=== PATIENT | male | born 1935 | race Caucasian/White ===

== ENCOUNTER 2022-03-26 21:18 | Emergency (ER) | payer MEDICARE, BC, SELFPAY ==
[2022-03-26 21:40] VITALS: BP 174/68; PULSE 84; RESP 18; TEMP 36.7; O2SAT 96; BMI 30.7
--- NOTE | 2022-03-26 22:01 | CRLHL7_ITS ---
For Patients: As a result of the Century Cures Act, medical imaging exams and procedure reports are released immediately into your electronic medical record. You may view this report before your referring provider. If you have questions, please contact your health care provider. INDICATION: Right upper extremity pain and swelling. TECHNIQUE: Ultrasound venous duplex upper right extremity. Compression venous exam was performed using jeong-scale, color Doppler, and spectral Doppler imaging. COMPARISON: None. FINDINGS: Deep veins: The visualized right internal jugular, subclavian, brachial, and axillary veins are fully compressible, demonstrate normal color flow, and normal response to mechanical augmentation. The Duplex Doppler waveforms are normal in appearance. Superficial veins: Cephalic vein demonstrates noncompressibility and lack of color Doppler flow consistent with thrombus. This extends from the wrist to the upper right arm. Soft tissue: Unremarkable. IMPRESSION: Superficial thrombus within the cephalic vein. No deep venous thrombosis identified. Findings discussed with Dr. Newsome at 11:21 pm on 03/26/[address] Lim Dictated by Dong Lim MD @ 03/26/2022 11:24:47 PM (Electronically Signed)
[2022-03-26 22:10] VITALS: BP 127/56; PULSE 80; O2SAT 95
--- OUTSIDE RECORDS SUMMARY | 2022-03-26 22:17 | XMS_ITS | Clinical Summary ---
:1935 Author Organization [employer] Address [address] [address] Phone Care Team Providers Name Role Phone Unavailable Primary Care Provider Unavailable Allergies Active Allergy Reactions Severity Noted Date Comments Amlodipine Other, Unknown Low 08/06/2020 Leg swelling on 5mg Leg swelling on 5mg Metformin Diarrhea Low 07/03/2020 Medications Medication Sig Dispensed Refills Start Date End Date Status empagliflozin Take 25 mg by 0 Ac tive (Jardiance) 25 MG mouth one time Tablet a day. Do not chew or crush. spironolactone Take 25 mg by 0 A ctive (Aldactone) 25 MG mouth one time tablet a day. carvedilol (Coreg) 25 Take 25 mg by 0 Active MG tablet mouth two times a day with meals. valsartan (Diovan) 320 Take 320 mg by 0 Active MG tablet mouth one time a day. omeprazole (PriLOSEC) Take 20 mg by 0 Active 20 MG delayed-release mouth one time capsule a day. Take before meals. Do not crush. atorvaSTATin (Lipitor) Take 20 mg by 0 Active 20 MG tablet mouth one time a day. aspirin 81 MG chewable Chew and 30 Tablet 0 03/26/20222021 Active tablet swallow 1 Tablet one time a day for 30 days. Take with food. Active Problems Problem Noted Date BRBPR (bright red blood per rectum) 03/23/2022 Hemorrhagic shock 03/23/2022 Encounters Date Type Specialty Care Team Description 03/23/2022 Anesthesia Event Endoscopy Evelin Amezquita MD 03/23/2022 Surgery Endoscopy Desi, COLONOSCOPY Kamlesh Laird DO DIAGNOSTIC 03/22/2022 Surgery Radiology Yair Jones MD Mesenteric angiogram 03/22/2022 - Hospital Encounter Intensive Care Yoko Johnson, Isidro morrhagic shock (HCC) (Primary Dx); 03/25/2022 MD SMITH (bright red blood per rectum); Glynn Jones MD Hospital discharge follow-up Agustin Palacio MD 03/22/2022 Hospital Encounter Radiology Radiology, [facility] 03/22/2022 Travel from Last 3 Months Surgical History Surgery Date Site/Laterality Comments OTHER SURGICAL HISTORY 03/22/2022 Groin/Right Procedure : Mesenteric angiogram; Surgeon: Yair Jones MD; Location: [facility] INTERVENTIONAL RADIOLOGY COLONOSCOPY 03/23/2022 Colon/N/A Procedure: COLON OSCOPY DIAGNOSTIC; Surgeon: Kamlesh Newberry DO; Location: [facility] ENDOSCOPY Medical devices from this surgery are in the Medic al Devices section. Social History Tobacco Use Types Packs/Day Years Used Date Smoking Tobacco: Former Cigarettes 0.5 30 1952 - 1982 Smokeless Tobacco: Never Tobacco Cessation: Counseling Given: No Sex Assigned at Date Recorded Male 03/22/2022 3:33 PM CDT Job Start Date Occupation Industry Not on file Not on file Not on file COVID-19 Exposure Response Date Recorded In the last 10 days, have you been in contact with No / Unsu re 03/22/2022 3:33 PM CDT someone who was confirmed or suspected to have Coronavirus/COVID-19? Obstetrics History Last Filed Vital Signs Vital Sign Reading Time Taken Comments Blood Pressure 162/49 03/25/2022 4:27 PM AERONAUTICAL RESEARCH ENGINEER Pulse 74 03/25/2022 4:27 PM AERONAUTICAL RESEARCH ENGINEER Temperature 36.6 ??C (97.8 ??F) 03/25/2022 4:27 PM AERONAUTICAL RESEARCH ENGINEER Respiratory Rate 20 03/25/2022 4:27 PM AERONAUTICAL RESEARCH ENGINEER Oxygen Saturation 95% 03/25/2022 4:27 PM AERONAUTICAL RESEARCH ENGINEER Inhaled Oxygen Concentration - - Weight 91.5 kg (201 lb 11.5 oz) 03/25/2022 6:00 AM AERONAUTICAL RESEARCH ENGINEER Height 174 cm (5' 8.5) 03/22/2022 2:30 PM CDT Body Mass Index 30.23 03/22/2022 2:30 PM CDT Plan of Treatment Health Maintenance Due Date Last Done Comments MEDICARE AWV 1935 COVID-19 Vaccine (#1) [birth year]/16/1936 PERTUSSIS (Standing Order) 11/14/1954 TETANUS (Standing Order) 11/14/1954 Shingrix (Zoster recombinant) vaccine (Standing Order) 6 (1 of 2) Pneumococcal Vaccine: 65+ yrs (Standing Order) (1 - 11/14/2000 PCV) Influenza Vaccine Seasonal (Standing Order) (#1) 2022 Medical Devices Implanted Type Area Manager Steel Device Shelf Model / Identifier Expiration Date Ser ial / Lot Clip Hemostasis Instinct Plus Disp [id number] - [id number] N/A : Colon COOK 01/16/2025 [id number] / Implanted: Qty: 2 on 03/23/2022 by Kamlesh Prieto DO at [facility] N/A / [id number] Procedures Procedure Name Priority Date/Time Associated Comments Diagnosis GLUCOSE, METER Routine 03/25/2022 12:30 Results f or this PM AERONAUTICAL RESEARCH ENGINEER procedure are i n the results section. GLUCOSE, METER Routine 03/25/2022 7:47 AM Results for this A[employer]ONAUTICAL RESEARCH ENGINEER procedure are i n the results section. HEMOGLOBIN Timed 03/25/2022 4:04 AM Results f or this AERONAUTICAL RESEARCH ENGINEER procedure are i n the results section. PLATELET COUNT Routine 03/25/2022 4:04 AM Results for this AERONAUTICAL RESEARCH ENGINEER procedure are i n the results section. WHITE BLOOD COUNT Routine 03/25/2022 4:04 AM Resu lts for this AERONAUTICAL RESEARCH ENGINEER procedure are i n the results section. PHOSPHORUS Routine 03/25/2022 4:04 AM Results f or this AERONAUTICAL RESEARCH ENGINEER procedure are i n the results section. MAGNESIUM Routine 03/25/2022 4:04 AM Results f or this AERONAUTICAL RESEARCH ENGINEER procedure are i n the results section. BASIC METABOLIC PANEL Routine 03/25/2022 4:04 AM Results for this AERONAUTICAL RESEARCH ENGINEER procedure are i n the results section. EKG 12-LEAD Routine 03/25/2022 12:49 Results for this AM AERONAUTICAL RESEARCH ENGINEER procedure are i n the results section. GLUCOSE, METER Routine 03/24/2022 10:07 Results f or this PM AERONAUTICAL RESEARCH ENGINEER procedure are i n the results section. HEMOGLOBIN Timed 03/24/2022 8:02 PM Results f or this AERONAUTICAL RESEARCH ENGINEER procedure are i n the results section. GLUCOSE, METER Routine 03/24/2022 5:08 PM Results for this AERONAUTICAL RESEARCH ENGINEER procedure are i n the results section. HEMOGLOBIN Timed 03/24/2022 12:08 Results for this PM AERONAUTICAL RESEARCH ENGINEER procedure are i n the results section. GLUCOSE, METER Routine 03/24/2022 11:47 Results f or this AM AERONAUTICAL RESEARCH ENGINEER procedure are i n the results section. HEMOGLOBIN Timed 03/24/2022 5:48 AM Results f or this AERONAUTICAL RESEARCH ENGINEER procedure are i n the results section. PLATELET COUNT Routine 03/24/2022 5:48 AM Results for this AERONAUTICAL RESEARCH ENGINEER procedure are i n the results section. WHITE BLOOD COUNT Routine 03/24/2022 5:48 AM Resu lts for this AERONAUTICAL RESEARCH ENGINEER procedure are i n the results section. PHOSPHORUS Routine 03/24/2022 3:01 AM Results f or this AERONAUTICAL RESEARCH ENGINEER procedure are i n the results section. MAGNESIUM Routine 03/24/2022 3:01 AM Results f or this AERONAUTICAL RESEARCH ENGINEER procedure are i n the results section. BASIC METABOLIC PANEL Routine 03/24/2022 3:01 AM Results for this AERONAUTICAL RESEARCH ENGINEER procedure are i n the results section. GLUCOSE, METER Routine 03/23/2022 11:38 Results f or this PM AERONAUTICAL RESEARCH ENGINEER procedure are i n the results section. HEMOGLOBIN Timed 03/23/2022 11:38 Results for this PM AERONAUTICAL RESEARCH ENGINEER procedure are i n the results section. COLONOSCOPY DIAGNOSTIC 03/23/2022 6:09 PM Hemorrhagic shock AERONAUTICAL RESEARCH ENGINEER (HCC) BRBPR (bright red blood per rectum) GLUCOSE, METER Routine 03/23/2022 5:45 PM Results for this AERONAUTICAL RESEARCH ENGINEER procedure are i n the results section. HEMOGLOBIN Timed 03/23/2022 5:45 PM Results f or this AERONAUTICAL RESEARCH ENGINEER procedure are i n the results section. COLONOSCOPY PROCEDURE 03/23/2022 5:44 PM Hemorrhagic s hock Results for this AERONAUTICAL RESEARCH ENGINEER (HCC) procedure are i n the results section. ADMIT MRSA, MOLECULAR Routine 03/23/2022 1:48 PM Results for this DETECTION AERONAUTICAL RESEARCH ENGINEER procedure are i n the results section. ECHO ADULT COMPLETE W Routine 03/23/2022 12:26 Re sults for this CONTRAST PM AERONAUTICAL RESEARCH ENGINEER procedure are i n the results section. RAPID SARS-COV-2 RNA Routine 03/23/2022 12:11 Res ults for this (COVID-19), MOLECULAR PM AERONAUTICAL RESEARCH ENGINEER proced ure are in DETECTION the results section. HEMOGLOBIN Timed 03/23/2022 12:11 Results for this PM AERONAUTICAL RESEARCH ENGINEER procedure are i n the results section. PROTIME Routine 03/23/2022 12:11 Results for this PM AERONAUTICAL RESEARCH ENGINEER procedure are i n the results section. GLUCOSE, METER Routine 03/23/2022 12:10 Results f or this PM AERONAUTICAL RESEARCH ENGINEER procedure are i n the results section. TRANSFUSE RED BLOOD Routine 03/23/2022 8:20 AM CELLS AERONAUTICAL RESEARCH ENGINEER HEMOGLOBIN Timed 03/23/2022 7:53 AM Results f or this AERONAUTICAL RESEARCH ENGINEER procedure are i n the results section. URINALYSIS, REFLEX TO Routine 03/23/2022 6:07 AM Results for this MICROSCOPIC AERONAUTICAL RESEARCH ENGINEER procedure are i n the results section. CULTURE, BLOOD Routine 03/23/2022 5:58 AM BACTERIAL AERONAUTICAL RESEARCH ENGINEER CULTURE, BLOOD Routine 03/23/2022 5:50 AM BACTERIAL AERONAUTICAL RESEARCH ENGINEER GLUCOSE, METER Routine 03/23/2022 5:44 AM Results for this AERONAUTICAL RESEARCH ENGINEER procedure are i n the results section. PROCALCITONIN, BLOOD Add on 03/23/2022 4:57 AM R esults for this AERONAUTICAL RESEARCH ENGINEER procedure are i n the results section. HEMOGLOBIN Timed 03/23/2022 4:57 AM Results f or this AERONAUTICAL RESEARCH ENGINEER procedure are i n the results section. PLATELET COUNT Routine 03/23/2022 4:57 AM Results for this AERONAUTICAL RESEARCH ENGINEER procedure are i n the results section. WHITE BLOOD COUNT Routine 03/23/2022 4:57 AM Resu lts for this AERONAUTICAL RESEARCH ENGINEER procedure are i n the results section. PHOSPHORUS Routine 03/23/2022 4:57 AM Results f or this AERONAUTICAL RESEARCH ENGINEER procedure are i n the results section. MAGNESIUM Routine 03/23/2022 4:57 AM Results f or this AERONAUTICAL RESEARCH ENGINEER procedure are i n the results section. BASIC METABOLIC PANEL Routine 03/23/2022 4:57 AM Results for this AERONAUTICAL RESEARCH ENGINEER procedure are i n the results section. GLUCOSE, METER Routine 03/22/2022 11:39 Results f or this PM CDT procedure are i n the results section. LACTIC ACID, VENOUS STAT 03/22/2022 11:29 Resu lts for this PM CDT procedure are i n the results section. HEMOGLOBIN Timed 03/22/2022 11:29 Results for this PM CDT procedure are i n the results section. ABORH 2ND DRAW STAT 03/22/2022 5:09 PM Results for this CDT procedure are i n the results section. HEMOGLOBIN Timed 03/22/2022 5:09 PM Results f or this CDT procedure are i n the results section. IR ANGIOGRAM SELECTIVE Routine 03/22/2022 4:26 PM Results for this EACH ADDL VESSEL CDT procedure a re in the results section. IR VISCERAL ANGIOGRAM Routine 03/22/2022 4:26 PM Results for this CDT procedure are i n the results section. US GUIDE VASCULAR Routine 03/22/2022 4:18 PM Resu lts for this ACCESS WITH CDT procedure are i n RADIOLOGIST the results section. IX UNLISTED 03/22/2022 3:13 PM GI bleed CDT RED BLOOD CELLS Timed 03/22/2022 2:28 PM Hemorrhagic shock R esults for this CDT (HCC) procedure are i n the results section. TYPE AND SCREEN STAT 03/22/2022 2:28 PM Result s for this CDT procedure are i n the results section. PROTIME Routine 03/22/2022 2:28 PM Results f or this CDT procedure are i n the results section. TROPONIN I Routine 03/22/2022 2:28 PM Results f or this CDT procedure are i n the results section. LACTIC ACID, VENOUS Routine 03/22/2022 2:28 PM Re sults for this CDT procedure are i n the results section. PHOSPHORUS Routine 03/22/2022 2:28 PM Results f or this CDT procedure are i n the results section. MAGNESIUM Routine 03/22/2022 2:28 PM Results f or this CDT procedure are i n the results section. COMPREHENSIVE Routine 03/22/2022 2:28 PM Results for this METABOLIC PANEL CDT procedure ar e in the results section. HEMOGRAM STAT 03/22/2022 2:28 PM Results f or this CDT procedure are i n the results section. GLUCOSE, METER Routine 03/22/2022 2:25 PM Results for this CDT procedure are i n the results section. OS CT ABDOMEN PELVIS Routine 03/22/2022 1:09 PM R esults for this CDT procedure are i n the results section. from Last 3 Months Results (ABNORMAL) GLUCOSE, METER (03/25/2022 12:30 PM AERONAUTICAL RESEARCH ENGINEER) P athologist Signature Glucose Meter 179 (H) 70 - 99 03/25/2022 [facility] mg/dL 12:37 PM AERONAUTICAL RESEARCH ENGINEER [facility] POINT OF CARE Specimen Anatomical Collection Method Collection Time Receive d Time (Source) Location / / Volume Laterality Blood BLOOD SPECIMEN / 03/25/2022 12:30 022 Unknown PM AERONAUTICAL RESEARCH ENGINEER 12:37 PM AERONAUTICAL RESEARCH ENGINEER Agustin Palacio MD EC CHEMISTRY ORDERABLES Performing Organization Address City/[facility]/ZIP [facility] Phon e Number [facility] POINT OF CARE [address] [place], [place] [phone] (ABNORMAL) GLUCOSE, METER (03/25/2022 7:47 AM AERONAUTICAL RESEARCH ENGINEER) P athologist Signature Glucose Meter 223 (H) 70 - 99 03/25/2022 [facility] mg/dL 7:54 AM [facility] POINT OF CARE Specimen Anatomical Collection Method Collection Time Receive d Time (Source) Location / / Volume Laterality Blood BLOOD SPECIMEN / 03/25/2022 7:47 AM 03/25 7:54 Unknown AERONAUTICAL RESEARCH ENGINEER AM AERONAUTICAL RESEARCH ENGINEER Agustin Palacio MD EC CHEMISTRY ORDERABLES Performing Organization Address [facility] Phon e Number [facility] POINT OF CARE [address] [place] [phone] (ABNORMAL) BASIC METABOLIC PANEL (03/25/2022 4:04 AM AERONAUTICAL RESEARCH ENGINEER) Analysis Performed At Patho logist Time Signature Sodium 140 134 - 143 03/25/2022 [facility] mEq/L 4:46 AM [facility] Potassium 3.7 3.4 - 5.1 03/25/2022 [facility] mEq/L 4:46 AM [facility] Chloride 112 (H) 99 - 110 03/25/2022 [facility] mEq/L 4:46 AM [facility] Carbon Dioxide 22 19 - 29 03/25/2022 [facility] mEq/L 4:46 AM [facility] Anion Gap 6.0 3.0 - 15.0 03/25/2022 [facility] mEq/L 4:46 AM [facility] Blood Urea 18 5 - 24 03/25/2022 [facility] Nitrogen mg/dL 4:46 AM [facility] Creatinine 0.92 0.70 - 03/25/2022 [facility] 1.20 mg/dL 4:46 AM [facility] Glomerular 81 >60 03/25/2022 [facility] Filtration Rate mL/min/1.7 4:46 AM [facility] 3 m*2 LABORATORY Comment: Risk of cardiovascular disease increases when GFR is abnormal; persistently reduced GFR values are a specific indica tion of CKD. This calculation uses CKD-EPI 2020 equation without adjustment for rac e; it has not been validated in women. Calcium 8.1 (L) 8.4 - 10.5 mg/dL 03/25/2022 4:46 AM AERONAUTICAL RESEARCH ENGINEER [facility] Glucose 164 (H) 70 - 99 mg/dL 03/25/2022 4:46 AM AERONAUTICAL RESEARCH ENGINEER [facility] Specimen Anatomical Collection Method / Collection Time Recei eloina Time (Source) Location / Volume Laterality Blood BLOOD SPECIMEN / Venipuncture / 03/25/2022 4:04 2021 4:24 Unknown Unknown AM AERONAUTICAL RESEARCH ENGINEER AM AERONAUTICAL RESEARCH ENGINEER Narrative [facility] - 4:46 AM AERONAUTICAL RESEARCH ENGINEER Current ADA criteria for Glucose: ?Normal: 70-99 mg/dL ?Impaired Fasting Glucose: 100-125 mg/dL ?Diabetes Mellitus: at or above 126 mg/dL The diagnosis of diabetes must be confir med on a subsequent day by measuring Fasting Plasma Glucose, 2-hr PG or random plasma glucose (if symptoms are present). Yoko Johnson MD EC CHEMISTRY ORDERABLES Performing Organization Address City/[facility]/ZIP [facility] Phon e Number [facility] [address] [place] [phone] (ABNORMAL) HEMOGLOBIN (03/25/2022 4:04 AM AERONAUTICAL RESEARCH ENGINEER) P athologist Signature HGB 7.7 (L) 12.9 - 16.9 03/25/2022 [facility] g/dL 4:28 AM [facility] Specimen Anatomical Collection Method / Collection Time Recei eloina Time (Source) Location / Volume Laterality Blood BLOOD SPECIMEN / Venipuncture / 03/25/2022 4:04 2021 4:23 Unknown Unknown AM AERONAUTICAL RESEARCH ENGINEER AM AERONAUTICAL RESEARCH ENGINEER Mere Ewing APRN, DIGITAL PHOTOGRAPHIC PRINTER EC HEMATOLOGY ORDERABLES Performing Organization Address City/[facility]/ZIP [facility] Phon e Number [facility] [address] [place] [phone] (ABNORMAL) WHITE BLOOD COUNT (03/25/2022 4:04 AM AERONAUTICAL RESEARCH ENGINEER) P athologist Signature WBC 45.0 (H) 3.2 - 11.0 03/25/2022 [facility] 10*9/L 4:31 AM AERONAUTICAL RESEARCH ENGINEER [facility] Specimen Anatomical Collection Method / Collection Time Recei eloina Time (Source) Location / Volume Laterality Blood BLOOD SPECIMEN / Venipuncture / 03/25/2022 4:04 2021 4:23 Unknown Unknown AM AERONAUTICAL RESEARCH ENGINEER AM AERONAUTICAL RESEARCH ENGINEER Yoko Johnson MD EC HEMATOLOGY ORDERABLES Performing Organization Address City/[facility] Phon e Number [facility] [address] [place] [phone] MAGNESIUM (03/25/2022 4:04 AM AERONAUTICAL RESEARCH ENGINEER) P athologist Signature Magnesium 1.9 1.8 - 2.7 03/25/2022 [facility] mg/dL 4:46 AM AERONAUTICAL RESEARCH ENGINEER [facility] Specimen Anatomical Collection Method / Collection Time Recei eloina Time (Source) Location / Volume Laterality Blood BLOOD SPECIMEN / Venipuncture / 03/25/2022 4:04 2021 4:24 Unknown Unknown AM AERONAUTICAL RESEARCH ENGINEER AM AERONAUTICAL RESEARCH ENGINEER Yoko Johnson MD EC CHEMISTRY ORDERABLES Performing Organization Address City/[facility] Phon e Number [facility] [address] [place] [phone] PHOSPHORUS (03/25/2022 4:04 AM AERONAUTICAL RESEARCH ENGINEER) P athologist Signature Phosphorus 2.5 2.5 - 4.6 03/25/2022 [facility] mg/dL 4:46 AM AERONAUTICAL RESEARCH ENGINEER [facility] Specimen Anatomical Collection Method / Collection Time Recei eloina Time (Source) Location / Volume Laterality Blood BLOOD SPECIMEN / Venipuncture / 03/25/2022 4:04 2021 4:24 Unknown Unknown AM AERONAUTICAL RESEARCH ENGINEER AM AERONAUTICAL RESEARCH ENGINEER Yoko Johnson MD EC CHEMISTRY ORDERABLES Performing Organization Address City/[facility] Phon e Number [facility] [address] [place] [phone] PLATELET COUNT (03/25/2022 4:04 AM AERONAUTICAL RESEARCH ENGINEER) P athologist Signature PLT 130 130 - 375 [facility] 10[facility]/L 4:31 AM AERONAUTICAL RESEARCH ENGINEER [facility] Specimen Anatomical Collection Method / Collection Time Recei eloina Time (Source) Location / Volume Laterality Blood BLOOD SPECIMEN / Venipuncture / 03/25/2022 4:04 2021 4:23 Unknown Unknown AM AERONAUTICAL RESEARCH ENGINEER AM AERONAUTICAL RESEARCH ENGINEER Yoko Johnson MD EC HEMATOLOGY ORDERABLES Performing Organization Address City/[facility]/ZIP [facility] Phon e Number [facility] [address] [place] [address] EKG 12-LEAD (03/25/2022 12:49 AM AERONAUTICAL RESEARCH ENGINEER) P athologist Signature Ventricular Rate 110 BPM MUSE Atrial Rate 110 BPM MUSE P-R Interval 168 ms MUSE QRS Duration 162 ms MUSE QT 404 ms MUSE QTc 546 ms MUSE R [place] -65 degrees MUSE T [place] 11 degrees MUSE Specimen (Source) Anatomical Collection Method Collection Time Re ceived Time Location / / Volume Laterality 03/25/2022 12:49 AM AERONAUTICAL RESEARCH ENGINEER Narrative MUSE - 03/25/2022 8:03 AM AERONAUTICAL RESEARCH ENGINEER Confirming Doc Aileen Forbes MD Wide QRS tachycardia Possible Atrial flu tter Right bundle branch block Left anterior fascicular block Bifascicular block Abnormal ECG No previous ECGs available Procedure Note Aileen Forbes MD - 03/25/2022F ormatting of this note might be different from the original. Confirming Doc Aileen Forbes MD Wide QRS tachycardia Possible Atrial flu tter Right bundle branch block Left anterior fascicular block Bifascicular block Abnormal ECG No previous ECGs available Santos Blanc MD IP ECG ORDERABLES Performing Organization Address City/[facility]/ZIP [facility] Phon e Number MUSE (ABNORMAL) GLUCOSE, METER (03/24/2022 10:07 PM AERONAUTICAL RESEARCH ENGINEER) P athologist Signature Glucose Meter 168 (H) 70 - 99 03/24/2022 [facility] mg/dL 10:15 PM AERONAUTICAL RESEARCH ENGINEER [facility]OSPITAL POINT OF CARE Specimen Anatomical Collection Method Collection Time Receive d Time (Source) Location / / Volume Laterality Blood BLOOD SPECIMEN / 03/24/2022 10:07 022 Unknown PM AERONAUTICAL RESEARCH ENGINEER 10:15 PM AERONAUTICAL RESEARCH ENGINEER Agustin Palacio MD EC CHEMISTRY ORDERABLES Performing Organization Address City/[facility]/ZIP [facility] Phon e Number [facility] POINT OF CARE [address] [place], [place] [phone] (ABNORMAL) HEMOGLOBIN (03/24/2022 8:02 PM AERONAUTICAL RESEARCH ENGINEER) athologist Signature HGB 7.9 (L) 12.9 - 16.9 03/24/2022 [facility] g/dL 8:08 PM AERONAUTICAL RESEARCH ENGINEER [facility] Specimen Anatomical Collection Method / Collection Time Recei eloina Time (Source) Location / Volume Laterality Blood BLOOD SPECIMEN / Venipuncture / 03/24/2022 8:02 2021 8:06 Unknown Unknown PM AERONAUTICAL RESEARCH ENGINEER PM AERONAUTICAL RESEARCH ENGINEER Mere Ewing APRN, CNP EC HEMATOLOGY ORDERABLES Performing Organization Address City/[facility]/ZIP [facility] Phon e Number [facility] [address] [place] [address] (ABNORMAL) GLUCOSE, METER (03/24/2022 5:08 PM AERONAUTICAL RESEARCH ENGINEER) athologist Signature Glucose Meter 147 (H) 70 - 99 03/24/2022 [facility] mg/dL 5:15 PM AERONAUTICAL RESEARCH ENGINEER [facility] POINT OF CARE Specimen Anatomical Collection Method Collection Time Receive d Time (Source) Location / / Volume Laterality Blood BLOOD SPECIMEN / 03/24/2022 5:08 PM 03/24 5:15 Unknown AERONAUTICAL RESEARCH ENGINEER PM AERONAUTICAL RESEARCH ENGINEER Agustin Palacio MD EC CHEMISTRY ORDERABLES Performing Organization Address [facility] Phon e Number [facility] POINT OF CARE [address] [place], [place] [phone] (ABNORMAL) HEMOGLOBIN (03/24/2022 12:08 PM AERONAUTICAL RESEARCH ENGINEER) athologist Signature HGB 8.3 (L) 12.9 - 16.9 03/24/2022 [facility] g/dL 12:14 PM AERONAUTICAL RESEARCH ENGINEER [facility] Specimen Anatomical Collection Method / Collection Time Recei eloina Time (Source) Location / Volume Laterality Blood BLOOD SPECIMEN / Venipuncture / 03/24/2022 12:08 03/24 Unknown Unknown PM AERONAUTICAL RESEARCH ENGINEER 12:12 PM AERONAUTICAL RESEARCH ENGINEER Mere Ewing APRN, CNP EC HEMATOLOGY ORDERABLES Performing Organization Address City/[facility]/ZIP [facility] Phon e Number [facility] [address] [place] [address] (ABNORMAL) GLUCOSE, METER (03/24/2022 11:47 AM AERONAUTICAL RESEARCH ENGINEER) athologist Signature Glucose Meter 142 (H) 70 - 99 03/24/2022 [facility] mg/dL 11:54 AM AERONAUTICAL RESEARCH ENGINEER [facility] POINT OF CARE Specimen Anatomical Collection Method Collection Time Receive d Time (Source) Location / / Volume Laterality Blood BLOOD SPECIMEN / 03/24/2022 11:47 022 Unknown AM AERONAUTICAL RESEARCH ENGINEER 11:54 AM AERONAUTICAL RESEARCH ENGINEER Glynn Jones MD EC CHEMISTRY ORDERABLES Performing Organization Address City/[facility]/ZIP [facility] Phon e Number [facility] POINT OF CARE [address] [place] [address] [phone] (ABNORMAL) HEMOGLOBIN (03/24/2022 5:48 AM AERONAUTICAL RESEARCH ENGINEER) athologist Signature HGB 7.5 (L) 12.9 - 16.9 03/24/2022 [facility] g/dL 6:10 AM [facility] Specimen Anatomical Collection Method / Collection Time Recei eloina Time (Source) Location / Volume Laterality Blood BLOOD SPECIMEN / Venipuncture / 03/24/2022 5:48 2021 6:06 Unknown Unknown AM AERONAUTICAL RESEARCH ENGINEER AM AERONAUTICAL RESEARCH ENGINEER Mere Ewing APRN, CNP EC HEMATOLOGY ORDERABLES Performing Organization Address City/[facility]/ZIP [facility] Phon e Number [facility] [address] [place] [phone] (ABNORMAL) WHITE BLOOD COUNT (03/24/2022 5:48 AM AERONAUTICAL RESEARCH ENGINEER) athologist Signature WBC 62.6 (HH) 3.2 - 11.0 03/24/2022 [facility] 10*9/L 6:17 AM [facility] Specimen Anatomical Collection Method / Collection Time Recei eloina Time (Source) Location / Volume Laterality Blood BLOOD SPECIMEN / Venipuncture / 03/24/2022 5:48 2021 6:06 Unknown Unknown AM AERONAUTICAL RESEARCH ENGINEER AM AERONAUTICAL RESEARCH ENGINEER Yoko Johnson MD EC HEMATOLOGY ORDERABLES Performing Organization Address City/[facility]/ZIP [facility] Phon e Number [facility] [address] [place] [phone] PLATELET COUNT (03/24/2022 5:48 AM AERONAUTICAL RESEARCH ENGINEER) athologist Signature PLT 150 130 - 375 03/24/2022 [facility] 10*9/L 6:16 AM [facility] Specimen Anatomical Collection Method / Collection Time Recei eloina Time (Source) Location / Volume Laterality Blood BLOOD SPECIMEN / Venipuncture / 03/24/2022 5:48 2021 6:06 Unknown Unknown AM AERONAUTICAL RESEARCH ENGINEER AM AERONAUTICAL RESEARCH ENGINEER Yoko Johnson MD EC HEMATOLOGY ORDERABLES Performing Organization Address City/State/ZIP Code Phon e Number [facility] [address] [place] [address] (ABNORMAL) BASIC METABOLIC PANEL (03/24/2022 3:01 AM [facility]) [facility] Method Time Signature Sodium 141 134 - 143 03/[facility]L [facility]:30 AM [facility] Potassium 4.1 3.4 - 5.1 03/24/2022 [facility] m[facility]/L 3:30 AM [facility] Chloride 113 (H) 99 - 110 03/24/2022 [facility] m[facility]/L 3:30 AM [facility] Carbon Dioxide 19 19 - 29 03/24/2022 [facility] mEq/L 3:30 AM [facility] Anion Gap 9.0 3.0 - 15.0 03/24/2022 [facility] m[facility]/L 3:30 AM [facility] Blood Urea 28 (H) 5 - 24 03/24/2022 [facility] Nitrogen mg/dL 3:30 AM [facility] Creatinine 1.22 (H) 0.70 - 03/24/2022 [facility] 1.20 mg/dL 3:30 AM [facility] Glomerular 58 (L) >60 03/24/2022 [facility] Filtration Rate mL/min/1.7 3:30 AM [facility] 3 m*2 LABORATORY Comment: Risk of cardiovascular disease increases when GFR is abnormal; persistently reduced GFR values are a specific indica tion of CKD. This calculation uses CKD-EPI 2020 equation without adjustment for rac e; it has not been validated in women. Calcium 7.8 (L) 8.4 - 10.5 mg/dL 03/24/2022 3:30 AM [facility] Glucose 186 (H) 70 - 99 mg/dL 03/24/2022 3:30 AM [facility] Specimen Anatomical Collection Method / Collection Time Recei eloina Time (Source) Location / Volume Laterality Blood BLOOD SPECIMEN / Venipuncture / 03/24/2022 3:01 2021 3:10 Unknown Unknown AM AERONAUTICAL RESEARCH ENGINEER AM AERONAUTICAL RESEARCH ENGINEER Narrative [facility] - 3:30 AM AERONAUTICAL RESEARCH ENGINEER Current ADA criteria for Glucose: ?Normal: 70-99 mg/dL ?Impaired Fasting Glucose: 100-125 mg/dL ?Diabetes Mellitus: at or above 126 mg/dL The diagnosis of diabetes must be confir med on a subsequent day by measuring Fasting Plasma Glucose, 2-hr PG or random plasma glucose (if symptoms are present). Yoko Johnson MD EC CHEMISTRY ORDERABLES Performing Organization Address [facility] Phon e Number [facility] [address] [place] [phone] MAGNESIUM (03/24/2022 3:01 AM AERONAUTICAL RESEARCH ENGINEER) P athologist Signature Magnesium 1.8 1.8 - 2.7 03/24/2022 [facility] mg/dL 3:30 AM AERONAUTICAL RESEARCH ENGINEER [facility]OSPITAL LAB[facility]ORY Specimen Anatomical Collection Method / Collection Time Recei eloina Time (Source) Location / Volume Laterality Blood BLOOD SPECIMEN / Venipuncture / 03/24/2022 3:01 2021 3:10 Unknown Unknown AM AERONAUTICAL RESEARCH ENGINEER AM AERONAUTICAL RESEARCH ENGINEER Yoko Johnson MD EC CHEMISTRY ORDERABLES Performing Organization Address [facility] Phon e Number [facility] [address], [place] [address] PHOSPHORUS (03/24/2022 3:01 AM AERONAUTICAL RESEARCH ENGINEER) P athologist Signature Phosphorus 3.2 2.5 - 4.6 03/24/2022 [facility] mg/dL 3:30 AM AERONAUTICAL RESEARCH ENGINEER [facility] Specimen Anatomical Collection Method / Collection Time Recei eloina Time (Source) Location / Volume Laterality Blood BLOOD SPECIMEN / Venipuncture / 03/24/2022 3:01 2021 3:10 Unknown Unknown AM AERONAUTICAL RESEARCH ENGINEER AM AERONAUTICAL RESEARCH ENGINEER Yoko Johnson MD EC CHEMISTRY ORDERABLES Performing Organization Address [facility] Phon e Number [facility] [address] [place] [address] (ABNORMAL) HEMOGLOBIN (03/23/2022 11:38 PM AERONAUTICAL RESEARCH ENGINEER) athologist Signature HGB 7.7 (L) 12.9 - 16.9 03/24/2022 [facility] g/dL 12:19 AM AERONAUTICAL RESEARCH ENGINEER [facility]OSPITAL [facility] Specimen Anatomical Collection Method / Collection Time Recei eloina Time (Source) Location / Volume Laterality Blood BLOOD SPECIMEN / Venipuncture / 03/23/2022 11:38 03/24 Unknown Unknown PM AERONAUTICAL RESEARCH ENGINEER 12:16 AM AERONAUTICAL RESEARCH ENGINEER Mere Ewing APRN, CNP EC HEMATOLOGY ORDERABLES Performing Organization Address City/State/ZIP [facility] Phon e Number [facility] [address], [place] [address] (ABNORMAL) GLUCOSE, METER (03/23/2022 11:38 PM AERONAUTICAL RESEARCH ENGINEER) athologist Signature Glucose Meter 146 (H) 70 - 99 03/23/2022 [facility] mg/dL 11:44 PM AERONAUTICAL RESEARCH ENGINEER [facility] POINT [facility] CARE Specimen Anatomical Collection Method Collection Time Receive d Time (Source) Location / / Volume Laterality Blood BLOOD SPECIMEN / 03/23/2022 11:38 022 Unknown PM AERONAUTICAL RESEARCH ENGINEER 11:44 PM AERONAUTICAL RESEARCH ENGINEER Glynn Jones MD EC CHEMISTRY ORDERABLES Performing Organization Address City/[facility] Phon e Number [facility] [address] [place] [address] [phone] (ABNORMAL) HEMOGLOBIN (03/23/2022 5:45 PM AERONAUTICAL RESEARCH ENGINEER) athologist Signature HGB 8.0 (L) 12.9 - 16.9 03/23/2022 [facility] g/dL 5:51 PM AERONAUTICAL RESEARCH ENGINEER [facility]OS[facility]ITAL [facility] Specimen Anatomical Collection Method / Collection Time Recei eloina Time (Source) Location / Volume Laterality Blood BLOOD SPECIMEN / Venipuncture / 03/23/2022 5:45 2021 5:49 Unknown Unknown PM AERONAUTICAL RESEARCH ENGINEER PM AERONAUTICAL RESEARCH ENGINEER Mere Ewing APRN, CNP EC HEMATOLOGY ORDERABLES Performing Organization Address City/[facility]/ZIP [facility] Phon e Number [facility] [address] [place] [address] (ABNORMAL) GLUCOSE, METER (03/23/2022 5:45 PM AERONAUTICAL RESEARCH ENGINEER) athologist Signature Glucose Meter 124 (H) 70 - 99 03/23/2022 [facility] mg/dL 5:52 PM AERONAUTICAL RESEARCH ENGINEER HOSPITAL POINT OF CARE Specimen Anatomical Collection Method Collection Time Receive d Time (Source) Location / / Volume Laterality Blood BLOOD SPECIMEN / 03/23/2022 5:45 PM 03/23 5:52 Unknown AERONAUTICAL RESEARCH ENGINEER PM AERONAUTICAL RESEARCH ENGINEER Glynn Jones MD EC CHEMISTRY ORDERABLES Performing Organization Address City/State/ZIP Code Phon e Number [facility] POINT [facility]ARE [address] [place], [place] [phone] COLONOSCOPY PROCEDURE (03/23/2022 5:44 PM AERONAUTICAL RESEARCH ENGINEER) Component Value Ref Test Analysis Performed At [facility] Range Method Time Signature Colonoscopy [facility] Procedure Gastroenterology LABORATORY Patient Name: Kristofer Garcia ? Date of : 1935 ?Patient Status: Inpatient Age: 86 ? Gender: Male Note Status: Finalized ?Procedure Date No Time: 03/23/2022 Procedure: ? Colonoscopy Endoscopist: ? KAMLESH PRIETO, DO Referring MD: ?GLYNN JONES MD Indications: ? Hematochezia, Acute post hemorrh agic anemia Procedure Medications: Monitored Anesthesia Care Procedure: ? Pre-Anesthesia Assessment: ? - Prior to the procedure, a History and Physical was ? performed, and patient medications and allergies were ? reviewed. The patient's tolerance of previous ? anesthesia was also reviewed. The risks and benefits ? of the procedure and the sedation options and risks ? were discussed with the patient. All questions were ? answered, and informed consent was obtained. Prior ? Anticoagulants: The patient has taken no anticoagulant ? or antiplatelet agents. ASA Grade Assessment: E - ? Emergency. After reviewing the risks and benefits, the ? patient was deemed in satisfactory condition to ? undergo the procedure. ? - Alternatives to the procedure were reviewed with the ? patient. Informed consent was confirmed and the ? patient was deemed in satisfactory condition to ? undergo the procedure. A timeout was performed to ? confirm the identity of the patient and the nature of ? the procedure. Throughout the procedure, the patient's ? blood pressure, pulse, and oxygen saturations were ? monitored continuously. The colonoscope was passed ? under direct vision through the anus and advanced to ? the the terminal ileum, with identification of the ? appendiceal orifice and IC valve. The colonoscopy was ? performed without difficulty. The patient tolerated ? the pr ocedure well. The quality of the bowel ? preparation was good. The terminal ileum, ileocecal ? valve, appendi ceal orifice, and rectum were ? photographed. ? Findings: ?The terminal ileum appeared no rmal. ? Multiple medium-mouthed diverticula were found in the ? sigmoid colon. ? A single medium-mouthed diverticulum was found in the ? sigmoid colon with a red clot inside of it and a ? likely cause o f recent bleeding. To prevent ? re-bleeding, two hemostatic clips were successfully ? placed (MR conditional). A 3rd clip was deployed but ? did not attach and will pass out on it's own. ? Internal hemorrhoids were found during retroflexion. ? The hemorrhoids were small and Grade I (internal ? hemorrhoids that do not pr olapse). Complications: ? No immediate complications. Estimated Blood Loss: ??Estimated blood loss: none. Post-Op Diagnosis: ? - The examined portion of the ileum was normal. ? - Diverticulosis in the si gmoid colon. ? - Diverticulosis in the sigmoid colon. Clips (MR ? conditional) were placed. ? - Internal hemorrhoids. ? - No specimens collected. Recommendation: ?- Patient has a contact number av ailable for ? emergencies. The signs and symptoms of potential ? delayed complications were discussed with the patient. ? Return to normal activities tomorrow. Written ? discharge instructions were provided to the patient. ? - Continue present medicat ions. ? - No repeat screening colonoscopy due to age. ? - Clear liquid diet today. ? - Continue to monitor closely for any further evidence ? of re-bleeding. Insole Doubler(s): ? I personally performed the entire procedure. Kamlesh Prieto MD KAMLESH PRIETO DO 03/23/2022 6:50:16 PM This report has been signed electronically. ? [address] [place] [address] Procedure Repo rt Specimen (Source) Anatomical Collection Method Collection Time Re ceived Time Location / / Volume Laterality 03/23/2022 5:44 PM AERONAUTICAL RESEARCH ENGINEER Kamlesh Prieto DO EC PROCEDURES Performing Organization Address City/[facility]/ZIP Code Phon e Number [facility] ADMIT MRSA, MOLECULAR DETECTION (03/23/2022 1:48 PM AERONAUTICAL RESEARCH ENGINEER) [facility] Method Time Signature MRSA Not Detected Not Detected 03/23/2022 [facility] 3:57 PM AERONAUTICAL RESEARCH ENGINEER HOSPITAL LABORATORY Specimen Anatomical Collection Method Collection Time Receive d Time (Source) Location / / Volume Laterality Swab BOTH ANTERIOR Non-blood 03/23/2022 1:48 PM 03/23/20 22 2:39 NARES / Unknown collection / AERONAUTICAL RESEARCH ENGINEER PM AERONAUTICAL RESEARCH ENGINEER Unknown Narrative [facility] - 3:57 PM AERONAUTICAL RESEARCH ENGINEER Test results must be interpreted within the context of all relevant clinical and laboratory findings. ??Test performance has not been evaluated in patients less than two (2) yeas of age. Method Information This test uses the [employer] Xpert MRSA Nx G assay to detect methicillin-resistant Staphylococcus aureus (MRSA) DNA by real-time polymerase chain reaction (PCR) on the [employer] Instrument System. ??The Xpert MRSA NxG test detects sequen ama for methicillin/oxacillin resistance (mecA and mecC genes), and SCCmec, which is inserted into the Staphylococcus aureus chromosome at the attB site. Glynn Jones MD EC MICROBIOLOGY - GENERAL OR DERABLES Performing Organization Address City/[facility]/ZIP Code Phon e Number [facility] [address] [place] [phone] TRANSFUSE RED BLOOD CELLS (03/23/2022 12:28 PM AERONAUTICAL RESEARCH ENGINEER) Mere Ewing APRN, CNP IP [facility] TREATMENT ORDERABL ES - BLOOD ADMIN ECHO ADULT COMPLETE W CONTRAST (03/23/2022 12:26 PM AERONAUTICAL RESEARCH ENGINEER) Component Value Ref Test Analysis Performed At [facility] Method Time Signature LVEF Range Qualitative [facility] Percent ejection fraction is 55-60% (normal). RESULT [facility] [address] [place] [phone] ? Transthoracic Echocardiogram Report Name: KRISTOFER GARCIA ? Study Date: 03/23/2022 ? Performing Location: [address] [place] [address] : 1935 ? Gender: Male Height: 68 in ?Age: 86 yrs Weight: 196 lb ? BSA: 2.0 m2 BP: 125/88 mmHg Ordering Physician: MERE EWING Performed By: Summer Olsen Reason For Study: Murmur/abn ormal heart sounds; pericardial effusion noted on CT Interpretation Summary Technically difficult study. Qualitative ejection fraction is 55-60% (normal). Wall motion is grossly normal. There is mild aortic valve calcification. There is moderate aortic stenosis. Mild mitral valve annular calcification. There is trace mitral regurgitation. Normal right ventricular systolic function. Trace pericardial effusion. This is located posteriorly. Left Ventricle Qualitative ejection fractio n is 55-60% (normal). The left ventricle is normal size. There is borderline concentric hypertrophy. Wall motion is grossly normal. Right Ventricle Normal right ventricular sys tolic function. The right ventricular cavity size is qualitatively normal. Atria Left atrium is qualitatively normal. Right atrium is qualitatively normal in size. Diastolic Function The left ventricular diastolic function is mildly abnormal ( Grade I). Aortic Valve The aortic valve is tricuspi d. There is mild aortic valve calcification. Trace aortic insufficiency. There is moderate aortic stenosis. Aortic valve mean gradient is 27.0 mmHg. Calcu lated aortic valve area is 1.2 cm^2. Aortic stenosis peak velocity is 333.0 cm/sec. Dimensionless index is 0.27 . Mitral Valve The mitral valve anatomy is normal. Mild mitral valve annular calcification. There is trace mitral regurgitation. No mitral valve stenosis. Tricuspid Valve Tricuspid valve not well vis ualized but grossly normal. Trace or physiologic tricuspid regurgitation. There is no tricuspid stenosis. Pulmonic Valve Pulmonic valve not well visu alized. No significant pulmonic regurgitation. No pulmonic stenosis. Pericardium/Pleura Trace pericardial effusion. Very trivial amount located posteriorly, no hemodynamic compromise noted. Vessels The aortic root is normal in size for body surface area. Proximal ascending aorta is not well visualized. Septae There is no evidence of an a trial septal defect by color flow doppler but resolution does not allow assessment for a patent foramen ovale. Hemodynamics TR signal inadequate to allo w accurate estimate RV systolic pressure. Inferior vena cava size normal and collapsibility > 50% normal indicating normal right atrial pressure (3 mm Hg). Procedure Details Technically difficult study. Cardiac Rhythm: Normal Sinus Rhythm. A two- dimensional transthoracic echocardiogram with color flow and Doppler was performed. Study acoustic quality was s atisfactory. A contrast agent was injected intravenously to improve image resolution. Pt is unable to lie on his left side, limited mobility due to bowel prep p rior to procedure. No subcostal acoustic window due to gas. Apical views difficult to obtain and suboptimal in quality. Subcostal views difficult to obtain and suboptimal in quality. MMode/2D Measurements & Calculations IVSd: 1.0 cm ? LVIDd: 5.5 cm LVPWd: 1.1 cm ?LVIDs: 3.4 cm ? IVS/LVPW: 0.91 ? EDV(Teich): 147.4 ml ? LVOT diam: 2.4 cm ESV([facility] 47.4 ml EF(Suzie): 67.8 % ? RWT: 0.40 Time Measurements MV dec time: 0.30 sec Doppler Measurements & Calculations MV E max manny: 69.8 cm/sec ? MV V2 max: 114.0 cm/sec MV A max manny: 97.3 cm/sec ? MV max P.2 mmHg MV E/A: 0.72 ?MV V2 mean: 59.4 cm/sec ?MV mean P.0 mmHg ?MVA(VTI): 3.3 cm2 ? MV dec slope: 232.0 cm/sec2 ? Ao V2 max: 333.0 cm/sec ?Ao max P.4 mmHg ?Ao mean P.0 mmHg ?JEANETTE(I,D): 1.2 cm2 ?JEANETTE(V,D): 1.2 cm2 ? LV V1 max: 88.2 cm/sec ?SV(LVOT): 95.9 ml LV V1 max P.1 mmHg LV V1 mean P.0 mmHg LV V1 VTI: 21.2 cm ? PA V2 max: 118.0 cm/sec ? JEANETTE (I,D) indexed (cm2/m2): 0.60 PA max P.6 mmHg PA V2 mean: 80.4 cm/sec PA mean P.0 mmHg ? Dimensionless Index: 0.27 ? Interpreting Physician:Silver [place] signed by: Oral Bowie MD on 03/23/2022 01:34 PM Specimen (Source) Anatomical Location Collection Method / Collectio n Time Received Time / Laterality Volume 03/23/2022 Narrative This result has an attachment that is no t available. Mere Ewing APRN, DIGITAL PHOTOGRAPHIC PRINTER CV ECHO PROCEDURES Performing Organization Address City/State/ZIP Code Phon e Number [facility] RAPID SARS-COV-2 RNA (COVID-19), MOLECULAR DETECTION (03/23/2022 12:11 PM AERONAUTICAL RESEARCH ENGINEER) [facility] Method Time Signature SARS-CoV-2 Negative Negative/Not 03/23/2022 [facility] RNA Detected 12:59 PM AERONAUTICAL RESEARCH ENGINEER HOSPITAL (COVID-19) LABORATORY Comment: SARS-CoV-2 (COVID-19) target nu cleic acids are not detected. COVID-19 can not be completely ruled out as sensitivi ty of the test depends on the timing of specimen collection and quality of the s pecimen. Specimen Anatomical Collection Method Collection Time Receive d Time (Source) Location / / Volume Laterality Swab NASAL / Unknown COVID-19 03/23/2022 12:11 03/23/20 22 Collection / PM AERONAUTICAL RESEARCH ENGINEER 12:25 PM AERONAUTICAL RESEARCH ENGINEER Unknown Narrative [facility] - 12:59 PM AERONAUTICAL RESEARCH ENGINEER Test detects target RNA by real-time polymerase chain reaction (PCR) on the [employer] GeneXpert System. Results should be used in combination wi th clinical observations, patient history and epidemiological information. Results from this test should not be use d as the sole basis for treatment or other patient management decisions. The SARS-CoV-2 test is currently only fo r use under the Food and Drug Administration's Emergency Use Authorization. ??Additional information about conditions of authorization for this test can be found at: https://www.fda.gov/medical-devices/aaashtlzb-ciefbdtmjn-tkjisas-devices/emergen hz-jff-oshsetaflemlhw Kamlesh Prieto DO EC MICROBIOLOGY - GENERAL OR DERABLES Performing Organization Address City/[facility] Phon e Number [facility] [address] [place] [phone] (ABNORMAL) PROTIME (03/23/2022 12:11 PM AERONAUTICAL RESEARCH ENGINEER) athologist Signature INR 1.3 (H) 0.9 - 1.1 03/23/2022 [facility] 12:53 PM AERONAUTICAL RESEARCH ENGINEER HOSPITAL LABORATORY Protime 15.7 (H) 12.0 - 14.1 03/23/2022 [facility] sec 12:53 PM AERONAUTICAL RESEARCH ENGINEER HOSPITAL LABORATORY Specimen Anatomical Collection Method / Collection Time Recei eloina Time (Source) Location / Volume Laterality Blood BLOOD SPECIMEN / Venipuncture / 03/23/2022 12:11 03/23 Unknown Unknown PM AERONAUTICAL RESEARCH ENGINEER 12:32 PM AERONAUTICAL RESEARCH ENGINEER Narrative [facility] - 2 12:53 PM AERONAUTICAL RESEARCH ENGINEER Suggested therapeutic INR ranges for oral anticoagulant therapy: Category ? INR Value Prophylaxis ?2.0-3.0 Treat Thrombosis or Embolism ? 2.0-3 .0 Prosthetic Heart Valve ? 2. 5-3.5 Mere Ewing PROGRAMMER, DIGITAL PHOTOGRAPHIC PRINTER EC HEMATOLOGY ORDERABLES Performing Organization Address City/[facility] Phon e Number [facility] [address] [place] [phone] (ABNORMAL) HEMOGLOBIN (03/23/2022 12:11 PM AERONAUTICAL RESEARCH ENGINEER) athologist Signature HGB 9.0 (L) 12.9 - 16.9 03/23[facility] g/dL 12:35 PM AERONAUTICAL RESEARCH ENGINEER HOSPITAL LABORATORY Specimen Anatomical Collection Method / Collection Time Recei eloina Time (Source) Location / Volume Laterality Blood BLOOD SPECIMEN / Venipuncture / 03/23/2022 12:11 03/23 Unknown Unknown PM AERONAUTICAL RESEARCH ENGINEER 12:32 PM AERONAUTICAL RESEARCH ENGINEER Mere Ewing APRN, CNP EC HEMATOLOGY ORDERABLES Performing Organization Address City/[facility]/ZIP Code Phon e Number [facility] [address] [place] [address] (ABNORMAL) GLUCOSE, METER (03/23/2022 12:10 PM AERONAUTICAL RESEARCH ENGINEER) athologist Signature Glucose Meter 170 (H) 70 - 99 03/23/2022 [facility] mg/dL 12:17 PM AERONAUTICAL RESEARCH ENGINEER [facility] POINT [facility] CARE Specimen Anatomical Collection Method Collection Time Receive d Time (Source) Location / / Volume Laterality Blood BLOOD SPECIMEN / 03/23/2022 12:10 022 Unknown PM AERONAUTICAL RESEARCH ENGINEER 12:17 PM AERONAUTICAL RESEARCH ENGINEER Glynn Jones MD EC CHEMISTRY ORDERABLES Performing Organization Address City/[facility]/ZIP [facility] Phon e Number [facility] POINT [facility] C[facility] [address] [facility] [place] [phone] (ABNORMAL) HEMOGLOBIN (03/23/2022 7:53 AM AERONAUTICAL RESEARCH ENGINEER) athologist Signature HGB 8.0 (L) 12.9 - 16.9 03/23/2022 [facility] g/dL 8:33 AM [facility] Specimen Anatomical Collection Method / Collection Time Recei eloina Time (Source) Location / Volume Laterality Blood BLOOD SPECIMEN / Venipuncture / 03/23/2022 7:53 2021 8:29 Unknown Unknown AM AERONAUTICAL RESEARCH ENGINEER AM AERONAUTICAL RESEARCH ENGINEER Alen Marrero MD EC HEMATOLOGY ORDERABLES Performing Organization Address City/[facility]/Z[facility] [facility] [place] Phon e Number [facility] [address] [facility] [place] [address] (ABNORMAL) URINALYSIS, REFLEX TO MICROSCOPIC (03/23/2022 6:07 AM AERONAUTICAL RESEARCH ENGINEER) Patholo gist Method Time Signature Urine Color Yellow Straw, 03/23/2022 [facility] Yellow, 6:17 AM [facility] Nicki LABOR[facility] Urine Clear Clear 03/23/2022 [facility] Appearance 6:17 AM [facility] Urine Specific 1.015 1.003 - 03/23/2022 [facility] [place] 1.035 6:17 AM [facility] Urine pH 5.5 5.0 - 8.0 03/23/2022 [facility] 6:17 AM [facility] Urine Glucose 500 (A) Negative 03/23/2022 [facility] 6:17 AM [facility] Urine Ketones 80 (A) Negative 03/23/2022 [facility] 6:17 AM [facility] Urine Protein Negative Negative, 03/23/2022 [facility] Trace mg/dL 6:17 AM [facility] Urine Nitrites Negative Negative 03/23/2022 [facility] 6:17 AM [facility] Urine Negative Negative 03/23/2022 [facility] Leukocyte 6:17 AM [facility] Esterase LABORATORY Specimen Anatomical Collection Method Collection Time Receive d Time (Source) Location / / Volume Laterality Urine URINE SPECIMEN Non-blood 03/23/2022 6:07 AM 022 6:11 OBTAINED VIA collection / AERONAUTICAL RESEARCH ENGINEER AM AERONAUTICAL RESEARCH ENGINEER INDWELLING URINARY Unknown CATHETER / Unknown Narrative [facility] - 6:17 AM AERONAUTICAL RESEARCH ENGINEER A routine urine not reflexing to a micro scopic exam automatically means the dipstick blood test is negative. Alen Marrero MD EC URINE ORDERABLES Performing Organization Address City/[facility]/ZIP Code Phon e Number [facility] [address] [place] [address] (ABNORMAL) GLUCOSE, METER (03/23/2022 5:44 AM AERONAUTICAL RESEARCH ENGINEER) P athologist Signature Glucose Meter 165 (H) 70 - 99 03/23/2022 [facility] mg/dL 5:50 AM [facility] POINT OF CARE Specimen Anatomical Collection Method Collection Time Receive d Time (Source) Location / / Volume Laterality Blood BLOOD SPECIMEN / 03/23/2022 5:44 AM 03/23 5:50 Unknown AERONAUTICAL RESEARCH ENGINEER AM AERONAUTICAL RESEARCH ENGINEER Yoko Johnson MD EC CHEMISTRY ORDERABLES Performing Organization Address City/State/ZIP Code Phon e Number [facility] [address] [place], [place] [address] PROCALCITONIN, BLOOD (03/23/2022 4:57 AM AERONAUTICAL RESEARCH ENGINEER) P athologist Signature Procalcitonin 0.06 <0.50 03/23/2022 [facility] ng/mL 6:03 AM AERONAUTICAL RESEARCH ENGINEER HOSPITAL [facility] Specimen Anatomical Collection Method / Collection Time Recei eloina Time (Source) Location / Volume Laterality Blood BLOOD SPECIMEN / Venipuncture / 03/23/2022 4:57 2021 5:09 Unknown Unknown AM AERONAUTICAL RESEARCH ENGINEER AM AERONAUTICAL RESEARCH ENGINEER Narrative [facility] - 6:03 AM AERONAUTICAL RESEARCH ENGINEER Procalcitonin Interpretation Guidelines: Diagnosis of systemic bacterial infectio n/sepsis and/or septic shock: < 0.50 ng/mL ? Low risk for se psis; localized bacterial infection possible 0.50 - 2.00 ng/mL ?Sepsis is possibl e; Interpret in context of specific clinical background and condition of ? the patie nt - recommend retesting Procalcitonin within 6 - 24 hours > 2.00 ng/mL ? High risk for s epsis and/or septic shock Diagnosis of lower respiratory tract inf ection: < 0.10 ng/mL ? Bacterial infec tion very unlikely 0.10 - 0.25 ng/mL ?Bacterial infecti on unlikely 0.26 - 0.50 ng/mL ?Bacterial infecti on likely > 0.50 ng/mL ? Bacterial infec tion very likely Procalcitonin levels must be interpreted in the context of all laboratory findings and the total clinical status of the patient. Alen Marrero MD EC LAB SEND OUT ORDERABLES Performing Organization Address City/State/ZIP Code Phon e Number [facility] [address] [place] [address] (ABNORMAL) BASIC METABOLIC PANEL (03/23/2022 4:57 AM AERONAUTICAL RESEARCH ENGINEER) Patholo gist Method Time Signature Sodium 143 134 - 143 03/23/2022 [facility] mEq/L 5:29 AM [facility] Potassium 4.6 3.4 - 5.1 03/23/2022 [facility] mEq/L 5:29 AM [facility] Chloride 115 (H) 99 - 110 03[facility] 5:29 AM [facility] Carbon Dioxide 15 (L) 19 - 29 03/23/2022 [facility] mEq/L 5:29 AM [facility] Anion Gap 13.0 3.0 - 15.0 03/23/2022 [facility] m[facility]/L 5:29 AM [facility] Blood Urea 32 (H) 5 - 24 03/23/2022 [facility] Nitrogen mg/dL 5:29 AM [facility] Creatinine 1.27 (H) 0.70 - 03/23/2022 [facility] 1.20 mg/dL 5:29 AM [facility] Glomerular 55 (L) >60 03/23/2022 [facility] Filtration Rate mL/min/1.7 5:29 AM [facility] 3 m*2 LABORATORY Comment: Risk of cardiovascular disease increases when GFR is abnormal; persistently reduced GFR values are a specific indica tion of CKD. This calculation uses CKD-EPI 2020 equation without adjustment for rac e; it has not been validated in women. Calcium 8.2 (L) 8.4 - 10.5 mg/dL 03/23/2022 5:29 AM [facility] Glucose 184 (H) 70 - 99 mg/dL 03/23/2022 5:29 AM [facility] Specimen Anatomical Collection Method / Collection Time Recei eloina Time (Source) Location / Volume Laterality Blood BLOOD SPECIMEN / Venipuncture / 03/23/2022 4:57 2021 5:09 Unknown Unknown AM AERONAUTICAL RESEARCH ENGINEER AM [facility] Narrative [facility] - 5:29 AM [facility] Current ADA criteria for Glucose: ?Normal: 70-99 mg/dL ?Impaired Fasting Glucose: 100-125 mg/dL ?Diabetes Mellitus: at or above 126 mg/dL The diagnosis of diabetes must be confir med on a subsequent day by measuring Fasting Plasma Glucose, 2-hr PG or random plasma glucose (if symptoms are present). Yoko Johnson MD EC CHEMISTRY ORDERABLES Performing Organization Address City/State/ZIP Code Phon e Number [facility] [address] [place] [phone] (ABNORMAL) HEMOGLOBIN (03/23/2022 4:57 AM AERONAUTICAL RESEARCH ENGINEER) P athologist Signature HGB 8.1 (L) 12.9 - 16.9 03/23/2022 [facility] g/dL 5:10 AM AERONAUTICAL RESEARCH ENGINEER HOSPITAL [facility] Specimen Anatomical Collection Method / Collection Time Recei eloina Time (Source) Location / Volume Laterality Blood BLOOD SPECIMEN / Venipuncture / 03/23/2022 4:57 2021 5:08 Unknown Unknown AM AERONAUTICAL RESEARCH ENGINEER AM AERONAUTICAL RESEARCH ENGINEER Alen Marrero MD EC HEMATOLOGY ORDERABLES Performing Organization Address [facility] Phon e Number [facility] [address] [place] [phone] (ABNORMAL) WHITE BLOOD COUNT (03/23/2022 4:57 AM AERONAUTICAL RESEARCH ENGINEER) P athologist Signature WBC 78.1 (HH) 3.2 - 11.0 03/23[facility]20[facility] 10*9/L 5:16 AM AERONAUTICAL RESEARCH ENGINEER [facility]OSPITAL [facility] Specimen Anatomical Collection Method / Collection Time Recei eloina Time (Source) Location / Volume Laterality Blood BLOOD SPECIMEN / Venipuncture / 03/23/2022 4:57 2021 5:08 Unknown Unknown AM AERONAUTICAL RESEARCH ENGINEER AM AERONAUTICAL RESEARCH ENGINEER Yoko Johnson MD EC HEMATOLOGY ORDERABLES Performing Organization Address City/[facility]/ZIP Code Phon e Number [facility] [address] [place] [phone] MAGNESIUM (03/23/2022 4:57 AM AERONAUTICAL RESEARCH ENGINEER) P athologist Signature Magnesium 1.8 1.8 - 2.7 03/23/2022 [facility] mg/dL 5:29 AM AERONAUTICAL RESEARCH ENGINEER [facility]OSPITAL [facility] Specimen Anatomical Collection Method / Collection Time Recei eloina Time (Source) Location / Volume Laterality Blood BLOOD SPECIMEN / Venipuncture / 03/23/2022 4:57 2021 5:09 Unknown Unknown AM AERONAUTICAL RESEARCH ENGINEER AM AERONAUTICAL RESEARCH ENGINEER Yoko Johnson MD EC CHEMISTRY ORDERABLES Performing Organization Address City/[facility] Phon e Number [facility] [address] [place] [phone] PHOSPHORUS (03/23/2022 4:57 AM AERONAUTICAL RESEARCH ENGINEER) athologist Signature Phosphorus 4.4 2.5 - 4.6 03/23/2022 [facility] mg/dL 5:29 AM AERONAUTICAL RESEARCH ENGINEER [facility]OSPITAL [facility] Specimen Anatomical Collection Method / Collection Time Recei eloina Time (Source) Location / Volume Laterality Blood BLOOD SPECIMEN / Venipuncture / 03/23/2022 4:57 2021 5:09 Unknown Unknown AM AERONAUTICAL RESEARCH ENGINEER AM AERONAUTICAL RESEARCH ENGINEER Yoko Johnson MD EC CHEMISTRY ORDERABLES Performing Organization Address City/[facility]/ZIP [facility] Phon e Number [facility] [address], [place] [address] PLATELET COUNT (03/23/2022 4:57 AM AERONAUTICAL RESEARCH ENGINEER) athologist Signature PLT 188 130 - 375 03/23/2022 [facility] 10*9/L 5:15 AM AERONAUTICAL RESEARCH ENGINEER [facility]OSPITAL [facility] Specimen Anatomical Collection Method / Collection Time Recei eloina Time (Source) Location / Volume Laterality Blood BLOOD SPECIMEN / Venipuncture / 03/23/2022 4:57 2021 5:08 Unknown Unknown AM AERONAUTICAL RESEARCH ENGINEER AM AERONAUTICAL RESEARCH ENGINEER Yoko Johnson MD EC HEMATOLOGY ORDERABLES Performing Organization Address City/[facility]/ZIP [facility] Phon e Number [facility] [address] [place] [phone] (ABNORMAL) GLUCOSE, METER (03/22/2022 11:39 PM CDT) athologist Signature Glucose Meter 150 (H) 70 - 99 03/22/2022 [facility] mg/dL 11:46 PM CDT HOSPITAL POINT OF CARE Specimen Anatomical Collection Method Collection Time Receive d Time (Source) Location / / Volume Laterality Blood BLOOD SPECIMEN / 03/22/2022 11:39 022 Unknown PM CDT 11:46 PM CDT Yoko Johnson MD EC CHEMISTRY ORDERABLES Performing Organization Address City/[facility] Phon e Number [facility] POINT [facility] C[facility] [address] [place] [address] (ABNORMAL) HEMOGLOBIN (03/22/2022 11:29 PM CDT) athologist Signature HGB 8.3 (L) 12.9 - 16.9 03/22/2022 [facility] g/dL 11:36 PM CDT HOSPITAL LAB[facility]ORY Specimen Anatomical Collection Method / Collection Time Recei eloina Time (Source) Location / Volume Laterality Blood BLOOD SPECIMEN / Venipuncture / 03/22/2022 11:29 11 Unknown Unknown PM CDT 11:33 PM CDT Yoko Johnson MD EC HEMATOLOGY ORDERABLES Performing Organization Address City/[facility]/ZIP Code Phon e Number [facility] [address] [place] [address] LACTIC ACID, VENOUS (03/22/2022 11:29 PM CDT) P athologist Signature Lactic Acid, 0.8 0.5 - 2.0 03/22/2022 [facility] Venous mmol/L 11:49 PM CDT HOSPITAL LAB[facility]ORY Specimen Anatomical Collection Method / Collection Time Recei eloina Time (Source) Location / Volume Laterality Blood BLOOD SPECIMEN / Venipuncture / 03/22/2022 11:29 03/22 Unknown Unknown PM CDT 11:33 PM CDT Alen Marrero MD EC CHEMISTRY ORDERABLES Performing Organization Address City/[facility]/ZIP Code Phon e Number [facility] [address] [place] [address] ABORH 2ND DRAW (03/22/2022 5:09 PM CDT) P athologist Signature ABO Group O 03/22/2022 5:56 [facility] PM CDT [facility] RH Type POS 03/22/2022 5:56 [facility] PM CDT [facility]OD [facility] Specimen Anatomical Collection Method / Collection Time Recei eloina Time (Source) Location / Volume Laterality Blood BLOOD SPECIMEN / Venipuncture / 03/22/2022 5:09 2021 5:29 Unknown Unknown PM CDT PM CDT Yoko Johnson MD EC BLOOD BANK ORDERABLES Performing Organization Address City/[facility]/ZIP Code Phon e Number [facility] [address] [facility] [place] [address] (ABNORMAL) HEMOGLOBIN (03/22/2022 5:09 PM CDT) P athologist Signature HGB 9.0 (L) 12.9 - 16.9 03/22/2022 [facility] g/dL 5:31 PM CDT HOSPITAL LAB[facility]ORY Specimen Anatomical Collection Method / Collection Time Recei eloina Time (Source) Location / Volume Laterality Blood BLOOD SPECIMEN / Venipuncture / 03/22/2022 5:09 2021 5:28 Unknown Unknown PM CDT PM CDT Yoko Johnson MD EC HEMATOLOGY ORDERABLES Performing Organization Address City/State/ZIP Code Phon e Number [facility] [address] [place] [address] IR VISCERAL ANGIOGRAM (03/22/2022 4:26 PM CDT) Anatomical Region Laterality Modality Abdomen, Pelvis, Vascular, Other X-Ray A ngiography Specimen (Source) Anatomical Collection Method Collection Time Re ceived Time Location / / Volume Laterality 03/22/2022 4:26 PM CDT Narrative 03/22/2022 4:45 PM CDT This document is currently in Final Status Exam Procedure: Mesenteric angiogram Primary ethical hacker: Yair Jones MD Preoperative diagnosis: GI bleed Postoperative diagnosis: same Operations: Operation 1. Ultrasound-guided right com mon femoral artery access. Operation 2. Superior mesenteric artery angiogram Operation 3. Selective inferior mesenter ic artery angiogram Operation 4. Closure device Indications: GI bleed. Active bleeding i dentified on CT in the region of the descending colon/sigmoid colon junction Medications: See EMR Sedation: Intravenous moderate sedation was utilized for the procedure. Continuous physiologic monitoring was performed by the sedation nurse under the direct supervision of the attending physician. There were no complications from the sedation. Fluoroscopy time: 21.8 minutes. Contrast: 70 mL Omnipaque 350 used Complications: None immediate. Findings/Procedure: The attending physician was present for the entire procedure. Written informed consent was obtained in a preprocedure conference with the patient. ??The patient was prepped and draped in the usual raegan r. Ultrasound performed of the right jeremy in, demonstrating a patent right common femoral artery and image archived. A micropuncture needle was then used to access the artery under ultrasound guidance. Th e microwire was then placed, followed by the micro sheath. This was exchanged for a 5 Fr vascular sheath over a Bentson wire. A 5-Fijian Motarjamie catheter was used to select the inferior mesenteric ar lucita. Angiogram obtained, showing widely patent artery with supply to the region of interest (distal descending colon/proximal sigmoid colon). No active contrast extravasation identified. A 2.8 Fijian m icrocatheter was advanced over a wire fu rther into the ARA and additional arteriograms obtained in frontal and oblique projections. Again, no evidence of contrast extravasation or other vessel abnormality. After multiple negative an giograms, the catheter was switched for a C2 catheter which was used to select the SMA. Selective arteriogram obtained, showing supply primarily to the small randi l. A branch supplying the transverse and descending colon was selected with the microcatheter with selective angiogram showing no evidence of contrast extravasation. Finally, the Motarjamie catheter was again used to select the ARA. The micro catheter/microwire combo was then advanced into the SMA, though resistance was encountered. Microcatheter and wire removed. Injection through the base catheter sh ows evidence of dissection. Further atte mpts at accessing the true lumen made with the microcatheter and microwire, though without success. Additional ARA angiogram from the base catheter shows patency though with flow-limiting dissection. Ca theter removed over the wire. ??Finally, angiogram obtained through the sheath, demonstrating appropriate vessel size and access site for closure device use. Closure obtained with Angio-Seal d evice. Hemostasis obtained and sterile dressing applied. Impression: 1. Selective inferior mesenteric and sup erior mesenteric artery angiograms show no evidence of active bleeding or other arterial abnormality. 2. Iatrogenic ARA dissection. SMA collat erals intact (marginal artery of Reynaldo). PLAN: If evidence of rebleeding, recomme nd endoscopy. Should this fail to stop the bleeding, repeat angiography could be entertained, though the ARA will likely not be amenable to catheterization due to dissection. It may be feasible to acces s the area of bleeding via the SMA/marginal artery of Reynaldo, though this may prove difficult and places the SMA/marginal artery at risk of dissection, which could compromise colonic blood supply. Electronically Signed: Dr. Yair Jones 4:45 PM Procedure Note Yair Jones MD - 03/22/2022 This document is currently in Final Stat us Exam Procedure: Mesenteric angiogram Primary ethical hacker: Yair Jones MD Preoperative diagnosis: GI bleed Postoperative diagnosis: same Operations: Operation 1. Ultrasound-guided right com mon femoral artery access. Operation 2. Superior mesenteric artery angiogram Operation 3. Selective inferior mesenter ic artery angiogram Operation 4. Closure device Indications: GI bleed. Active bleeding i dentified on CT in the region of the descending colon/sigmoid colon junction Medications: See EMR Sedation: Intravenous moderate sedation was utilized for the procedure. Continuous physiologic monitoring was performed by the sedation nurse under the direct supervision of the attending physician. There were no complications from the sedation. Fluoroscopy time: 21.8 minutes. Contrast: 70 mL Omnipaque 350 used Complications: None immediate. Findings/Procedure: The attending physician was present for the entire procedure. Written informed consent was obtained in a preprocedure conference with the patient. The patient was prepped and draped in the usual manner. Ultrasound performed of the right groin, demonstrating a patent right common femoral artery and image archived. A micropuncture needle was then used to access the artery under ultrasound guidance. The microwire was then placed, followed by the regine hsieh. This was exchanged for a 5 Fr vascular sheath over a OneRiotson wire. A 5-Fijian Motarjamie catheter was used to select the inferior mesenteric artery. Angiogram obtained, showing widely patent artery with supply to the region of interest (distal descending colon/proximal sigmoid colon). No active contrast extravasation identified. A 2.8 Fijian microcatheter was advanced over a wire further into the ARA and additional arteriograms obtained in frontal and oblique projections. Again, no evidence of contrast extravasation or other vessel abnormality. After multiple negative an giograms, the catheter was switched for a C2 catheter which was used to select the SMA. Selective arteriogram obtained, showing supply primarily to the small bowel. A branch supplying the transverse and desc ending colon was selected with the microcatheter with selective angiogram showing no evidence of contrast extravasation. Finally, the Motarjamie catheter was again used to select the ARA. The microcatheter/microwire com shimon was then advanced into the SMA, though resistance was encountered. Microcatheter and wire removed. Injection through the base catheter shows evidence of dissection. Further attempts at accessing the true lumen mad e with the microcatheter and microwire, though without success. Additional ARA angiogram from the base catheter shows patency though with flow-limiting dissection. Catheter removed over the wire. Finally, angiogra m obtained through the sheath, demonstrating appropriate vessel size and access site for closure device use. Closure obtained with Angio-Seal d evice. Hemostasis obtained and sterile dressing applied. Impression: 1. Selective inferior mesenteric and sup erior mesenteric artery angiograms show no evidence of active bleeding or other arterial abnormality. 2. Iatrogenic ARA dissection. SMA collat erals intact (marginal artery of Reynaldo). PLAN: If evidence of rebleeding, recomme nd endoscopy. Should this fail to stop the bleeding, repeat angiography could be entertained, though the ARA will likely not be amenable to catheterization due to dissection. It may be feasible to access the area of bleedi ng via the SMA/marginal artery of Reynaldo, though this may prove difficult and places the SMA/marginal artery at risk of dissection, which could compromise colonic blood supply. Electronically Signed: Dr. Yair Jones 4:45 PM Yoko Johnson MD EC IR ORDERABLES IR ANGIOGRAM SELECTIVE EACH ADDL VESSEL (03/22/2022 4:26 PM CDT) Anatomical Region Laterality Modality Abdomen, Pelvis, Vascular, Leg, Arm X-Ra y Angiography Specimen (Source) Anatomical Collection Method Collection Time Re ceived Time Location / / Volume Laterality 03/22/2022 4:26 PM CDT Narrative 03/22/2022 4:45 PM CDT This document is currently in Final Status Exam Procedure: Mesenteric angiogram Primary ethical hacker: Yair Jones MD Preoperative diagnosis: GI bleed Postoperative diagnosis: same Operations: Operation 1. Ultrasound-guided right com mon femoral artery access. Operation 2. Superior mesenteric artery angiogram Operation 3. Selective inferior mesenter ic artery angiogram Operation 4. Closure device Indications: GI bleed. Active bleeding i dentified on CT in the region of the descending colon/sigmoid colon junction Medications: See EMR Sedation: Intravenous moderate sedation was utilized for the procedure. Continuous physiologic monitoring was performed by the sedation nurse under the direct supervision of the attending physician. There were no complications from the sedation. Fluoroscopy time: 21.8 minutes. Contrast: 70 mL Omnipaque 350 used Complications: None immediate. Findings/Procedure: The attending physician was present for the entire procedure. Written informed consent was obtained in a preprocedure conference with the patient. ??The patient was prepped and draped in the usual raegan r. Ultrasound performed of the right jermey in, demonstrating a patent right common femoral artery and image archived. A micropuncture needle was then used to access the artery under ultrasound guidance. Th e microwire was then placed, followed by the micro sheath. This was exchanged for a 5 Fr vascular sheath over a Bentson wire. A 5-Fijian Motarjamie catheter was used to select the inferior mesenteric ar lucita. Angiogram obtained, showing widely patent artery with supply to the region of interest (distal descending colon/proximal sigmoid colon). No active contrast extravasation identified. A 2.8 Fijian m icrocatheter was advanced over a wire fu rther into the ARA and additional arteriograms obtained in frontal and oblique projections. Again, no evidence of contrast extravasation or other vessel abnormality. After multiple negative an giograms, the catheter was switched for a C2 catheter which was used to select the SMA. Selective arteriogram obtained, showing supply primarily to the small randi l. A branch supplying the transverse and descending colon was selected with the microcatheter with selective angiogram showing no evidence of contrast extravasation. Finally, the Motarjamie catheter was again used to select the ARA. The micro catheter/microwire combo was then advanced into the SMA, though resistance was encountered. Microcatheter and wire removed. Injection through the base catheter sh ows evidence of dissection. Further atte mpts at accessing the true lumen made with the microcatheter and microwire, though without success. Additional ARA angiogram from the base catheter shows patency though with flow-limiting dissection. Ca theter removed over the wire. ??Finally, angiogram obtained through the sheath, demonstrating appropriate vessel size and access site for closure device use. Closure obtained with Angio-Seal d evice. Hemostasis obtained and sterile dressing applied. Impression: 1. Selective inferior mesenteric and sup erior mesenteric artery angiograms show no evidence of active bleeding or other arterial abnormality. 2. Iatrogenic ARA dissection. SMA collat erals intact (marginal artery of Reynaldo). PLAN: If evidence of rebleeding, recomme nd endoscopy. Should this fail to stop the bleeding, repeat angiography could be entertained, though the ARA will likely not be amenable to catheterization due to dissection. It may be feasible to acces s the area of bleeding via the SMA/marginal artery of Wall, though this may prove difficult and places the SMA/marginal artery at risk of dissection, which could compromise colonic blood supply. Electronically Signed: Dr. Yair Jones 4:45 PM Procedure Note Yair Jones MD - 03/22/2022 This document is currently in Final Stat us Exam Procedure: Mesenteric angiogram Primary ethical hacker: Yair Jones MD Preoperative diagnosis: GI bleed Postoperative diagnosis: same Operations: Operation 1. Ultrasound-guided right com mon femoral artery access. Operation 2. Superior mesenteric artery angiogram Operation 3. Selective inferior mesenter ic artery angiogram Operation 4. Closure device Indications: GI bleed. Active bleeding i dentified on CT in the region of the descending colon/sigmoid colon junction Medications: See EMR Sedation: Intravenous moderate sedation was utilized for the procedure. Continuous physiologic monitoring was performed by the sedation nurse under the direct supervision of the attending physician. There were no complications from the sedation. Fluoroscopy time: 21.8 minutes. Contrast: 70 mL Omnipaque 350 used Complications: None immediate. Findings/Procedure: The attending physician was present for the entire procedure. Written informed consent was obtained in a preprocedure conference with the patient. The patient was prepped and draped in the usual manner. Ultrasound performed of the right groin, demonstrating a patent right common femoral artery and image archived. A micropuncture needle was then used to access the artery under ultrasound guidance. The microwire was then placed, followed by the micro ana rosa h. This was exchanged for a 5 Fr vascular sheath over a Bentson wire. A 5-Fijian Motarjamie catheter was used to select the inferior mesenteric artery. Angiogram obtained, showing widely patent artery with supply to the region of interest (distal descending colon/proximal sigmoid colon). No active contrast extravasation identified. A 2.8 Fijian microcatheter was advanced over a wire further into the ARA and additional arteriograms obtained in frontal and oblique projections. Again, no evidence of contrast extravasation or other vessel abnormality. After multiple negative an giograms, the catheter was switched for a C2 catheter which was used to select the SMA. Selective arteriogram obtained, showing supply primarily to the small bowel. A branch supplying the transverse and desc ending colon was selected with the microcatheter with selective angiogram showing no evidence of contrast extravasation. Finally, the Motarjamie catheter was again used to select the ARA. The microcatheter/microwire com shimon was then advanced into the SMA, though resistance was encountered. Microcatheter and wire removed. Injection through the base catheter shows evidence of dissection. Further attempts at accessing the true lumen mad e with the microcatheter and microwire, though without success. Additional ARA angiogram from the base catheter shows patency though with flow-limiting dissection. Catheter removed over the wire. Finally, angiogra m obtained through the sheath, demonstrating appropriate vessel size and access site for closure device use. Closure obtained with Angio-Seal d evice. Hemostasis obtained and sterile dressing applied. Impression: 1. Selective inferior mesenteric and sup erior mesenteric artery angiograms show no evidence of active bleeding or other arterial abnormality. 2. Iatrogenic ARA dissection. SMA collat erals intact (marginal artery of Reynaldo). PLAN: If evidence of rebleeding, recomme nd endoscopy. Should this fail to stop the bleeding, repeat angiography could be entertained, though the ARA will likely not be amenable to catheterization due to dissection. It may be feasible to access the area of bleedi ng via the SMA/marginal artery of Reynaldo, though this may prove difficult and places the SMA/marginal artery at risk of dissection, which could compromise colonic blood supply. Electronically Signed: Dr. Yair Jones 4:45 PM Yoko Johnson MD EC IR ORDERABLES US GUIDE VASCULAR ACCESS WITH RADIOLOGIST (03/22/2022 4:18 PM CDT) Anatomical Region Laterality Modality X-Ray Angiography Specimen (Source) Anatomical Collection Method Collection Time Re ceived Time Location / / Volume Laterality 03/22/2022 4:18 PM CDT Narrative 03/22/2022 4:45 PM CDT This document is currently in Final Status Exam Procedure: Mesenteric angiogram Primary ethical hacker: Yair Jones MD Preoperative diagnosis: GI bleed Postoperative diagnosis: same Operations: Operation 1. Ultrasound-guided right com mon femoral artery access. Operation 2. Superior mesenteric artery angiogram Operation 3. Selective inferior mesenter ic artery angiogram Operation 4. Closure device Indications: GI bleed. Active bleeding i dentified on CT in the region of the descending colon/sigmoid colon junction Medications: See EMR Sedation: Intravenous moderate sedation was utilized for the procedure. Continuous physiologic monitoring was performed by the sedation nurse under the direct supervision of the attending physician. There were no complications from the sedation. Fluoroscopy time: 21.8 minutes. Contrast: 70 mL Omnipaque 350 used Complications: None immediate. Findings/Procedure: The attending physician was present for the entire procedure. Written informed consent was obtained in a preprocedure conference with the patient. ??The patient was prepped and draped in the usual raegan r. Ultrasound performed of the right jeremy in, demonstrating a patent right common femoral artery and image archived. A micropuncture needle was then used to access the artery under ultrasound guidance. Th e microwire was then placed, followed by the micro sheath. This was exchanged for a 5 Fr vascular sheath over a [employer] wire. A 5-Fijian Motarjamie catheter was used to select the inferior mesenteric ar lucita. Angiogram obtained, showing widely patent artery with supply to the region of interest (distal descending colon/proximal sigmoid colon). No active contrast extravasation identified. A 2.8 Fijian m icrocatheter was advanced over a wire fu rther into the ARA and additional arteriograms obtained in frontal and oblique projections. Again, no evidence of contrast extravasation or other vessel abnormality. After multiple negative an giograms, the catheter was switched for a C2 catheter which was used to select the SMA. Selective arteriogram obtained, showing supply primarily to the small randi l. A branch supplying the transverse and descending colon was selected with the microcatheter with selective angiogram showing no evidence of contrast extravasation. Finally, the Motarjamie catheter was again used to select the ARA. The micro catheter/microwire combo was then advanced into the SMA, though resistance was encountered. Microcatheter and wire removed. Injection through the base catheter sh ows evidence of dissection. Further atte mpts at accessing the true lumen made with the microcatheter and microwire, though without success. Additional ARA angiogram from the base catheter shows patency though with flow-limiting dissection. Ca theter removed over the wire. ??Finally, angiogram obtained through the sheath, demonstrating appropriate vessel size and access site for closure device use. Closure obtained with Angio-Seal d evice. Hemostasis obtained and sterile dressing applied. Impression: 1. Selective inferior mesenteric and sup erior mesenteric artery angiograms show no evidence of active bleeding or other arterial abnormality. 2. Iatrogenic ARA dissection. SMA collat erals intact (marginal artery of Reynaldo). PLAN: If evidence of rebleeding, recomme nd endoscopy. Should this fail to stop the bleeding, repeat angiography could be entertained, though the ARA will likely not be amenable to catheterization due to dissection. It may be feasible to acces s the area of bleeding via the SMA/marginal artery of Wall, though this may prove difficult and places the SMA/marginal artery at risk of dissection, which could compromise colonic blood supply. Electronically Signed: Dr. Yair Jones 4:45 PM Procedure Note Yair Jones MD - 03/22/2022 This document is currently in Final Stat us Exam Procedure: Mesenteric angiogram Primary ethical hacker: Yair Jones MD Preoperative diagnosis: GI bleed Postoperative diagnosis: same Operations: Operation 1. Ultrasound-guided right com mon femoral artery access. Operation 2. Superior mesenteric artery angiogram Operation 3. Selective inferior mesenter ic artery angiogram Operation 4. Closure device Indications: GI bleed. Active bleeding i dentified on CT in the region of the descending colon/sigmoid colon junction Medications: See EMR Sedation: Intravenous moderate sedation was utilized for the procedure. Continuous physiologic monitoring was performed by the sedation nurse under the direct supervision of the attending physician. There were no complications from the sedation. Fluoroscopy time: 21.8 minutes. Contrast: 70 mL Omnipaque 350 used Complications: None immediate. Findings/Procedure: The attending physician was present for the entire procedure. Written informed consent was obtained in a preprocedure conference with the patient. The patient was prepped and draped in the usual manner. Ultrasound performed of the right groin, demonstrating a patent right common femoral artery and image archived. A micropuncture needle was then used to access the artery under ultrasound guidance. The microwire was then placed, followed by the regine hsieh. This was exchanged for a 5 Fr vascular sheath over a Bentson wire. A 5-Fijian Motarjamie catheter was used to select the inferior mesenteric artery. Angiogram obtained, showing widely patent artery with supply to the region of interest (distal descending colon/proximal sigmoid colon). No active contrast extravasation identified. A 2.8 Fijian microcatheter was advanced over a wire further into the ARA and additional arteriograms obtained in frontal and oblique projections. Again, no evidence of contrast extravasation or other vessel abnormality. After multiple negative an giograms, the catheter was switched for a C2 catheter which was used to select the SMA. Selective arteriogram obtained, showing supply primarily to the small bowel. A branch supplying the transverse and desc ending colon was selected with the microcatheter with selective angiogram showing no evidence of contrast extravasation. Finally, the Motarjamie catheter was again used to select the ARA. The microcatheter/microwire com shimon was then advanced into the SMA, though resistance was encountered. Microcatheter and wire removed. Injection through the base catheter shows evidence of dissection. Further attempts at accessing the true lumen mad e with the microcatheter and microwire, though without success. Additional ARA angiogram from the base catheter shows patency though with flow-limiting dissection. Catheter removed over the wire. Finally, angiogra m obtained through the sheath, demonstrating appropriate vessel size and access site for closure device use. Closure obtained with Angio-Seal d evice. Hemostasis obtained and sterile dressing applied. Impression: 1. Selective inferior mesenteric and sup erior mesenteric artery angiograms show no evidence of active bleeding or other arterial abnormality. 2. Iatrogenic ARA dissection. SMA collat erals intact (marginal artery of Wall). PLAN: If evidence of rebleeding, recomme nd endoscopy. Should this fail to stop the bleeding, repeat angiography could be entertained, though the ARA will likely not be amenable to catheterization due to dissection. It may be feasible to access the area of bleedi ng via the SMA/marginal artery of Wall, though this may prove difficult and places the SMA/marginal artery at risk of dissection, which could compromise colonic blood supply. Electronically Signed: Dr. Yair Jones 4:45 PM Yoko Johnson MD [facility] ORDERABLES TYPE AND SCREEN (03/22/2022 2:28 PM CDT) athologist Signature ABO Group O 03/22/2022 [facility] 3:12 PM CDT [facility] RH Type POS 03/22/2022 [facility] 3:12 PM CDT [facility] Antibody Screen NEG 03/22/2022 [facility] 3:12 PM T [facility] Specimen Anatomical Collection Method / Collection Time Recei eloina Time (Source) Location / Volume Laterality Blood BLOOD SPECIMEN / Venipuncture / 03/22/2022 2:28 2021 2:34 Unknown Unknown PM CDT PM CDT Yoko Johnson MD [facility] BLOOD BANK ORDERABLES Performing Organization Address City/[facility]/ZIP Code Phon e Number [facility] [address], [place] [address] RED BLOOD CELLS (03/22/2022 2:28 PM CDT) Patholo gist Method Time Signature Leukoreduced RBC [id number] 03/23/2022 p.Transfused 8:05 AM AERONAUTICAL RESEARCH ENGINEER 03/23/22 08:05 SCC Unit ABO Type O 03/23/2022 8:05 AM AERONAUTICAL RESEARCH ENGINEER Unit Rh Type POS 03/23/2022 8:05 AM AERONAUTICAL RESEARCH ENGINEER Unit Number [id number] 03/23/2022 8:05 AM AERONAUTICAL RESEARCH ENGINEER Unit Status transfused 03/23/2022 8:05 AM AERONAUTICAL RESEARCH ENGINEER Unit Barcoded [id number] 03/23/2022 Product Code 8:05 AM AERONAUTICAL RESEARCH ENGINEER Specimen Anatomical Collection Method Collection Time Receive d Time (Source) Location / / Volume Laterality Blood BLOOD SPECIMEN / 03/22/2022 2:28 PM 03/22 2:34 Unknown CDT PM CDT Narrative [facility] - 8:05 AM AERONAUTICAL RESEARCH ENGINEER Type and Screen required for all RBC pro ducts.Transfusion Indications:->Clinically significant acute bloodloss1 UNITS Mere Ewing APRN, CNP [facility] BLOOD BANK ORDERABLES Performing Organization Address City/[facility]/ZIP Code Phon e Number [facility] [address] [place] [address], [place] [phone] (ABNORMAL) COMPREHENSIVE METABOLIC PANEL (03/22/2022 2:28 PM CDT) Analysis Performed At Patho logist Time Signature Sodium 142 134 - 143 03/22/2022 [facility] mEq/L 2:54 PM CDT [facility] Potassium 4.5 3.4 - 5.1 03/22/2022 [facility] mEq/L 2:54 PM CDT [facility] Chloride 114 (H) 99 - 110 03/22/2022 [facility] mEq/L 2:54 PM CDT [facility] Carbon Dioxide 19 19 - 29 03/22/2022 [facility] mEq/L 2:54 PM [facility] Anion Gap 9.0 3.0 - 15.0 03/22/2022 [facility] mEq/L 2:54 PM [facility] Blood Urea 26 (H) 5 - 24 03/22/2022 [facility] Nitrogen mg/dL 2:54 PM [facility] Creatinine 0.98 0.70 - 03/22/2022 [facility] 1.20 mg/dL 2:54 PM [facility] Glomerular 75 >60 03/22/2022 [facility] Filtration Rate mL/min/1.7 2:54 PM [facility] 3 m*2 LABORATORY Comment: Risk of cardiovascular disease increases when GFR is abnormal; persistently reduced GFR values are a specific indica tion of CKD. This calculation uses CKD-EPI 2020 equation without adjustment for rac e; it has not been validated in women. Calcium 8.3 (L) 8.4 - 10.5 03/22/2022 2:54 PM [facility] mg/dL T LABORATORY Glucose 208 (H) 70 - 99 mg/dL 03/22/2022 2:54 [facility] Protein, Total 5.0 (L) 6.0 - 8.0 03/22/2022 2:54 PM [facility] g/dL T LABORATORY Albumin 2.9 (L) 3.5 - 5.0 03/22/2022 2:54 PM [facility] g/dL CDT LABORATORY Alkaline Phosphatase 81 40 - 150 IU/L 03/22/2022 2:54 PM [facility] Aspartate 16 10 - 40 IU/L 03/22/2022 2:54 PM [facility] Aminotransferase T LABORATORY Alanine Aminotransferase 13 6 - 40 IU/L 03/22/2022 2: 54 PM [facility] Bilirubin, Total 0.5 0.2 - 1.2 03/22/2022 2:54 PM [facility] mg/dL CDT LABORATORY Specimen Anatomical Collection Method / Collection Time Recei eloina Time (Source) Location / Volume Laterality Blood BLOOD SPECIMEN / Venipuncture / 03/22/2022 2:28 2021 2:34 Unknown Unknown PM CDT PM CDT Narrative [facility] - 2 2:54 PM CDT Current ADA criteria for Glucose: ?Normal: 70-99 mg/dL ?Impaired Fasting Glucose: 100-125 mg/dL ?Diabetes Mellitus: at or above 126 mg/dL The diagnosis of diabetes must be confir med on a subsequent day by measuring Fasting Plasma Glucose, 2-hr PG or random plasma glucose (if symptoms are present). Yoko Johnson MD EC CHEMISTRY ORDERABLES Performing Organization Address [facility] Phon e Number [facility] [address] [place] [id number] TROPONIN I (03/22/2022 2:28 PM CDT) athologist Signature Troponin I 0.020 0.000 - 03/22/2022 [facility] 0.028 ng/mL 2:59 PM CDT [facility]OS[facility]ITAL [facility] Specimen Anatomical Collection Method / Collection Time Recei eloina Time (Source) Location / Volume Laterality Blood BLOOD SPECIMEN / Venipuncture / 03/22/2022 2:28 2021 2:34 Unknown Unknown PM CDT PM CDT Narrative [facility] - 2 2:59 PM CDT Because no pediatric reference range elvira a is published, the adult reference range will be utilized as this represents 99% of healthy adults. Yoko Johnson MD EC CHEMISTRY ORDERABLES Performing Organization Address [facility] Phon e Number [facility] [address] [place] [id number] (ABNORMAL) HEMOGRAM (03/22/2022 2:28 PM CDT) athologist Signature WBC 56.7 (HH) 3.2 - 11.0 03/22/2022 [facility] 10*9/L 3:22 PM CDT [facility]OSPITAL [facility] RBC 3.42 (L) 4.14 - 03/22/2022 [facility] 5.76 3:22 PM CDT HOSPITAL 10*12/L LABORATORY HGB 10.0 (L) 12.9 - 03/22/2022 [facility] 16.9 g/dL 3:22 PM CDT [facility]ITAL [facility] HCT 31.3 (L) 38.4 - 03/22/2022 [facility] 49.7 % 3:22 PM CDT [facility] MCV 91.5 81.4 - 03/22/2022 [facility] 99.0 fL 3:22 PM CDT [facility]ITAL [facility] MCH 29.2 26.7 - 03/22/2022 [facility] 33.1 pg 3:22 PM CDT [facility]OS[facility]ITAL [facility] MCHC 31.9 31.6 - 03/22/2022 [facility] 35.5 g/dL 3:22 PM CDT [facility] RDW 14.6 11.3 - 03/22/2022 [facility] 14.6 % 3:22 PM CDT [facility]OS[facility]ITAL [facility] PLT 193 130 - 375 03/22/2022 [facility] 10*9/L 3:22 PM CDT [facility] Specimen Anatomical Collection Method / Collection Time Recei eloina Time (Source) Location / Volume Laterality Blood BLOOD SPECIMEN / Venipuncture / 03/22/2022 2:28 2021 2:34 Unknown Unknown PM CDT PM CDT Yoko Johnson MD EC HEMATOLOGY ORDERABLES Performing Organization Address City/State/ZIP Code Phon e Number [facility] [address] [place] [address] (ABNORMAL) PROTIME (03/22/2022 2:28 PM CDT) P athologist Signature INR 1.3 (H) 0.9 - 1.1 03/22/2022 [facility] 2:49 PM CDT [facility]OSPITAL [facility] Protime 15.6 (H) 12.0 - 14.1 03/22/2022 [facility] sec 2:49 PM CDT [facility] Specimen Anatomical Collection Method / Collection Time Recei eloina Time (Source) Location / Volume Laterality Blood BLOOD SPECIMEN / Venipuncture / 03/22/2022 2:28 2021 2:34 Unknown Unknown PM CDT PM CDT Narrative [facility] - 2:49 PM CDT Suggested therapeutic INR ranges for oral anticoagulant therapy: Category ? INR Value Prophylaxis ?2.0-3.0 Treat Thrombosis or Embolism ? 2.0-3 .0 Prosthetic Heart Valve ? 2. 5-3.5 Yoko Johnson MD EC HEMATOLOGY ORDERABLES Performing Organization Address City/[facility]/ZIP [facility] Phon e Number [facility] [address] [place] [address] (ABNORMAL) MAGNESIUM (03/22/2022 2:28 PM CDT) P athologist Signature Magnesium 1.7 (L) 1.8 - 2.7 03/22/2022 [facility] mg/dL 2:54 PM CDT [facility]ITAL [facility] Specimen Anatomical Collection Method / Collection Time Recei eloina Time (Source) Location / Volume Laterality Blood BLOOD SPECIMEN / Venipuncture / 03/22/2022 2:28 2021 2:34 Unknown Unknown PM CDT PM CDT Yoko Johnson MD EC CHEMISTRY ORDERABLES Performing Organization Address [facility]/ZIP [facility] Phon e Number [facility] [address] [place] [id number] LACTIC ACID, VENOUS (03/22/2022 2:28 PM CDT) P athologist Signature Lactic Acid, 1.0 0.5 - 2.0 03/22/2022 [facility] Venous mmol/L 2:49 PM CDT [facility]ITAL [facility] Specimen Anatomical Collection Method / Collection Time Recei eloina Time (Source) Location / Volume Laterality Blood BLOOD SPECIMEN / Venipuncture / 03/22/2022 2:28 2021 2:34 Unknown Unknown PM CDT PM CDT Yoko Johnson MD EC CHEMISTRY ORDERABLES Performing Organization Address City/[facility]/ZIP [facility] Phon e Number [facility] [address] [place] [phone] PHOSPHORUS (03/22/2022 2:28 PM CDT) P athologist Signature Phosphorus 3.2 2.5 - 4.6 03/22/2022 [facility] mg/dL 2:54 PM CDT [facility]ITAL [facility] Specimen Anatomical Collection Method / Collection Time Recei eloina Time (Source) Location / Volume Laterality Blood BLOOD SPECIMEN / Venipuncture / 03/22/2022 2:28 2021 2:34 Unknown Unknown PM CDT PM CDT Yoko Johnson MD EC CHEMISTRY ORDERABLES Performing Organization Address City/State/ZIP Code Phon e Number [facility] [address] [place] [address] (ABNORMAL) GLUCOSE, METER (03/22/2022 2:25 PM CDT) P athologist Signature Glucose Meter 183 (H) 70 - 99 03/22/2022 [facility] mg/dL 4:07 PM CDT HOSPITAL POINT OF CARE Specimen Anatomical Collection Method Collection Time Receive d Time (Source) Location / / Volume Laterality Blood BLOOD SPECIMEN / 03/22/2022 2:25 PM 03/22 4:07 Unknown CDT PM CDT Yoko Johnson MD EC CHEMISTRY ORDERABLES Performing Organization Address City/[facility]/ZIP Code Phon e Number [facility] POINT [facility] [address] [place], [place] [address] ABDOMEN PELVIS (03/22/2022 1:09 PM CDT) Specimen (Source) Anatomical Location Collection Method / Collectio n Time Received Time / Laterality Volume Narrative Yocasta, User - 03/22/2022 1:09 PM CDT The actual exam was performed at [facility] on 03/22/2022. This exam does not have a report residin g in this EMR. ??Please check for a scanned in report, Care Everywhere Outsi de Records, or call the performing location for the report. This order was placed into the system an d automatically finalized on 03/22/2022. 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
--- OUTSIDE RECORDS SUMMARY | 2022-03-26 22:18 | XMS_ITS | Encounter Summary ---
:1935 Author Organization [employer] Address [address] [address] Phone Care Team Providers Name Role Phone Unavailable Primary Care Provider Unavailable Encounter Details Date Type Department Care Team Description 03/22/2022 Travel Social History Tobacco Use Types Packs/Day Years Used Date Smoking Tobacco: Former Cigarettes 0.5 30 1952 - 1982 Smokeless Tobacco: Never Sex Assigned at Date Recorded Male 03/22/2022 3:33 PM CDT Job Start Date Occupation Industry Not on file Not on file Not on file COVID-19 Exposure Response Date Recorded In the last 10 days, have you been in contact with No / Unsu re 03/22/2022 3:33 PM CDT someone who was confirmed or suspected to have Coronavirus/COVID-19? documented as of this encounter Plan of Treatment Not on filedocumented as of this encounter Visit Diagnoses Not on filedocumented in this encounter
--- OUTSIDE RECORDS SUMMARY | 2022-03-26 22:18 | XMS_ITS | Encounter Summary ---
:1935 Author Organization [employer] Address [address] [address] Phone Care Team Providers Name Role Phone Unavailable Primary Care Provider Unavailable Reason for Visit Auth/Cert (Routine) Specialty Diagnoses / Procedures Referred By Contact Refer red To Contact Diagnoses GI bleed Yoko Johnson MD [address] [place] [phone] Referral ID Status Reason Start Date Expiration Date Visits Requ ested Visits Authorized [id number] 1 1 Encounter Details Date Type Department Care Team Description 03/23/2022 Anesthesia Event 32 [facility] Evelin Amezquita MD [address] [place] [id number] [facility] [phone] [place] [address] [phone] (Wo rk) Anesthesia Record Procedure Summary Procedure Name Responsible Anesthesia Start Anesthesia Stop Anesthesiologist Time Time COLONOSCOPY Evelin Amezquita MD 03/23/22 18003/23/22 18 55 DIAGNOSTIC (Colon) Events Date Time Event Comment 03/23/2022 1759 AN Equip Check 1806 An Start The patient was reevaluated immediately prior to initiation of anesthesia. 1806 An Start Data 1810 1816 Start Supplemental O2 1816 Anesthesia Ready 1850 Stop Supplemental O2 1850 an stop data 185 An Stop Report given to the receiving RN. No apparent anesthesia compl ications at this time. Electronically s igned by Dave Dutta APRN, PARA OPERATOR Name Total fentaNYL (SUBLIMAZE) injection 0.05 mg/mL 100 mcg propofol 20 mL VIAL 10 mg/mL (Diprivan) 80 mg PHENYLephrine (BLANCA-SYNEPHRINE) syringe 0.1 mg/mL 700 m cg vasopressin (VASOSTRICT) injection 20 units/mL 2 Units sodium chloride 0.9% infusion 400 mL Agents No agents on file. Blood No blood administrations on file. Lines, Drains, and Airways Type Details Placement Removal Vascular Access Site 03/22/22; 1519; No; 03/22/22 1519 by LDA Right; Femoral; Jane Manley RN Arterial; Angio-Seal (Lot#[id number]) Peripheral IV 03/22/22; Yes; 18; 03/22/22 0000 by 03/25/22 001 2 by Right; Antecubital; Franchesca Leo RN Johnson, Co nnor, RN Bleeding at Site, Dressing Applied Peripheral IV 03/22/22; Yes; 20; 03/22/22 0000 by 03/25/22 163 3 by Distal, Right, Franchesca Leo, Jomar Man, Posterior; Forearm RN documented in this encounter Social History Tobacco Use Types Packs/Day Years [...] have Coronavirus/COVID-19? documented as of this encounter Functional Status Functional Status Response Date of Assessment Patient's Vision Adequate to Safely Complete Daily Yes 03/22/2022 Activities Patient's Memory Adequate to Safely Complete Daily Yes 03/22/2022 Activities Cognitive Status Response Date of Assessment Patient's Judgment Adequate to Safely Complete Daily Yes 03/22/2022 Activities documented as of this encounter OR Notes Anesthesia Postprocedure Evaluation - Evelin Amezquita MD - 03/23/2022 7:01 PM CST Procedure Summary Date: 03/23/22 Room / Location: 32H ENDO TRAVEL / -[facility] ENDOSCOPY Anesthesia Start: 1805 Anesthesia Stop: 1854 Procedure: COLONOSCOPY DIAGNOSTIC (Colon) Diagnosis: Hemorrhagic shock (HCC) BRBPR (bright red blood per rectum) (Hemorrhagic shock (HCC) [R57.8]) (BRBPR (bright red blood per rectum) [K62.5]) Surgeons: Anjana Weeks DO Responsible Provider: Evelin Amezquita MD Anesthesia Type: MAC ASA Status: 3 - Emergent Anesthesia Type: MAC Vitals Value Taken Time BP 128/41 03/23/22 1900 Temp 37 ??C (98.6 ??F) 03/23/22 1855 Pulse 61 03/23/22 1900 Resp 20 03/23/22 1900 SpO2 95 % 03/23/221899 Vitals shown include unvalidated device data. Patient Post-op disposition: ICU planned admission Patient participation: patient able to participate Level of consciousness: awake and alert Pain management: adequate Airway patency: patent Cardiovascular status: acceptable Respiratory status: acceptable Hydration status: no apparent hydration abnormalities No PONVDental findings: dentition unchanged No notable events documented. 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 Anesthesia Preprocedure Evaluation - Evelin Amezquita MD - 03/23/2022 5:53 PM CST Anesthesia Evaluation Patient has had previous anesthetics No history of anesthetic complications Airway Mallampati: II TM distance: >3 FB Neck ROM: full Dental - normal exam Pulmonary breath sounds clear to auscultation Cardiovascular (+) hypertension, valvular problems/murmurs , dysrhythmias atrial fibrillation, cardiac stents , Rhythm: regular Rate: normal ROS comment: BP Readings from Last 3 Encounters: 03/23/22 : (!) 110/43 Pulse Readings from Last 3 Encounters: 03/23/22 : 65 ECHO: Technically difficult study. Qualitative ejection fraction is 55-60% (normal). Wall motion is grossly normal. There is mild aortic valve calcification. There is moderate aortic stenosis. Mild mitral valve annular calcification. There is trace mitral regurgitation. Normal right ventricular systolic function. Trace pericardial effusion. This is located posteriorly. Neuro/Psych GI/Hepatic/Renal (+) bowel prep, Comments: Lab Results Component Value Date WBC 78.1 (HH) 03/23/2022 HGB 8.0 (L) 03/23/2022 HCT 31.3 (L) 03/22/2022 MCV 91.5 03/22/2022 PLTS 188 03/23/2022 Endo/Other (+) diabetes mellitus, cancer ( CLL), treated with, BMI Classification: overweight (BMI 25-29.9) Obstetrical Anesthesia Plan ASA 3 - emergent Plan: MAC Technique: MAC Comments:I discussed MAC (monitored anesthesia care) with the patient including expectations as wellas risks. MAC does not constitute general anesthesia or guarantee loss of recollection of the procedure. However, there is always a risk that general anesthesia may result from providing sedation and that the patient may require rescue or resuscitation. Risks include cardiopulmonary complications, aspiration, stroke, TN, other unforseen circumstances, even . All questions were answered and informed consent was obtained. Patient agrees to proceed. Anesthetic plan and risks discussed with patient. 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 documented in this encounter Plan of Treatment Not on filedocumented as of this encounter Visit Diagnoses Not on filedocumented in this encounter Administered Medications Inactive Administered Medications Medication Order MAR Action Action Date Dose Rate Site fentaNYL (Sublimaze) injection Given 03/23/2022 6:35 PM CRIM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 50 mcg IV Push, NEEDED, Starting on 03/23/22 at 1822, Until 03/23/22 at 1856 Given 03/23/2022 6:22 PM CRIM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 50 mcg PHENYLephrine (Blanca-Synephrine) 1-0.9 Given 03/23/2022 6:47 PM CS T 100 mcg MG/10ML-% injection IV Push, NEEDED, Starting on 03/23/22 at 1829, Until 03/23/22 at 1856 Given 03/23/2022 6:40 PM CRIM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 100 mcg Given 03/23/2022 6:35 PM CRIM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 100 mcg Given 03/23/2022 6:32 PM CRIM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 100 mcg Given 03/23/2022 6:31 PM CRIM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 100 mcg Given 03/23/2022 6:28 PM CRIM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 100 mcg Given 03/23/2022 6:27 PM CRIM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 100 mcg propofol (Diprivan) 200 MG/20ML injectio n Given 03/23/2022 6:40 PM CRIM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 10 mg Intravenous, NEEDED, Starting on 03/23/22 at 1824, Until 03/23/22 at 1856 Given 03/23/2022 6:35 PM CRIM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 10 mg Given 03/23/2022 6:26 PM CRIM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 10 mg Given 03/23/2022 6:25 PM CRIM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 20 mg Given 03/23/2022 6:24 PM CRIM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 30 mg sodium chloride 0.9% (NS) infusion New Bag 03/23/2022 6:06 PM CRIM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 Intravenous, CONTINUOUS INTRA-OP, Starting on 03/23/22 at 1806, Until 03/23/22 at 1856 vasopressin (VASOSTRICT) injection Given 03/23/2022 6:32 PM CRIM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 2 Units Intravenous, NEEDED, Starting on 03/23/22 at 1832, Until 03/23/22 at 1856 documented in this encounter
--- OUTSIDE RECORDS SUMMARY | 2022-03-26 22:18 | XMS_ITS | Encounter Summary ---
:1935 Author Organization [employer] Address [address] [address] Phone Care Team Providers Name Role Phone Unavailable Primary Care Provider Unavailable Reason for Referral Office Visit (Routine) - New Request Specialty Diagnoses / Procedures Referred By Contact Refer red To Contact Cardiology Diagnoses Hospital discharge follow-up Mere Ewing APRN, Unlisted, Provider [place] [address] [place] [id number] Referral ID Status Reason Start Date Expiration Date Visits V isits Requested Authorized [id number] New Request 03/25/2022 09/21/2022 1 1 Question Answer Follow-up With: Other Specialty Referral Type: Hospital Follow Up Dept Specialty: Cardiology [4] Follow-up Time Frame: 1 Month Diagnosis supporting this Referral: Hospital discharge follow-up [[id number]] Have you notified the receiving Yes - Facility will [facility] facility[facility]service? Comments Discuss Watchman procedure Referral faxed to [facility]. . GE LOADER Reason for Visit Auth/Cert (Routine) Specialty Diagnoses / Procedures Referred By Contact Refer red To Contact Diagnoses GI bleed Yoko Johnson MD [address] [place] [address] Referral ID Status Reason Start Date Expiration Date Visits Requ ested Visits Authorized [id number] 1 1 Encounter Details Date Type Department Care Team Description 03/22/2022 - Hospital Encounter [address] Jimena Johnson MD [address] [place] [address] Hemorrhagic shock (HCC) (Primary Dx); 03/25/2022 CRITICAL CARE Glynn Jones MD [address] [place] [address] BRBPR (bright red blood per rectum); [address] [place] [address] Agustin Palacio MD [address] [place] [address] [place] [address] Social History Tobacco Use Types Packs/Day Years [...] have Coronavirus/COVID-19? documented as of this encounter Last Filed Vital Signs Vital Sign Reading Time Taken Comments Blood Pressure 162/49 03/25/2022 4:27 PM CHARGE LOADER Pulse 74 03/25/2022 4:27 PM CHARGE LOADER Temperature 36.6 ??C (97.8 ??F) 03/25/2022 4:27 PM CHARGE LOADER Respiratory Rate 20 03/25/2022 4:27 PM CHARGE LOADER Oxygen Saturation 95% 03/25/2022 4:27 PM CHARGE LOADER Inhaled Oxygen Concentration - - Weight 91.5 kg (201 lb 11.5 oz) 03/25/2022 6:00 AM CHARGE LOADER Height 174 cm (5' 8.5) 03/22/2022 2:30 PM CDT Body Mass Index 30.23 03/22/2022 2:30 PM CDT documented in this encounter Functional Status Functional Status Response Date of Assessment Patient's Vision Adequate to Safely Complete Daily Yes 03/22/2022 Activities Patient's Memory Adequate to Safely Complete Daily Yes 03/22/2022 Activities Cognitive Status Response Date of Assessment Patient's Judgment Adequate to Safely Complete Daily Yes 03/22/2022 Activities documented as of this encounter Discharge Summaries Agustin Palacio MD - 03/25/2022 3:24 PM CST Images from the original note were not included. 03/25/2022 HOSPITAL DISCHARGE SUMMARY Agustin Palacio MD Patient Name: Kristofer Garcia Date of : 1935 Age: [age] year old Primary Physician: No primary care provider on file. Phone: None Admitting Physician: Yoko Johnson MD Admission Date:03/22/2022 Discharging Physician: Agustin Palacio MD Discharge Date: 03/25/22 Discharge Diagnoses: Active Problems: BRBPR (bright red blood per rectum) Hemorrhagic shock (HCC) Resolved Problems: * No resolved hospital problems. * Consultants: 32H IP CONSULT TO INTERVENTIONAL RADIOLOGIST PHARMACIST MEDICATION RECONCILIATION IP CONSULT TO GI Procedures: IR evaluation for possible SMA or ARA embolization and no vascular extravasation done, colonoscopy with two hemostatic clips on one colonic diverticulum. Pt was observed off pressors for 24 hours and his eliquis was stopped. He is going to follow up with his feed in worker at [facility] for Watchman Procedure. Imaging: Fluoro for possible embolization Hospital Course: Kristofer Garcia is a 86 year old who presented with GI bleed and some hypotension. He had a NM study at at OSH and because of his relative hypotension he was taken for possible embolization. Once in IR he did not actually have embolization because no extravasation of blood was seen on selective SMA and ARA angiography. He required pressors and was weaned off these and was off for 24 hours prior to discharge. Kristofer was discharged from [facility] to Home . Kristofer was seen and examined on the date of discharge. Pertinent history and exam findings at discharge include all of the above. DischargeVital Signs: Vitals: 03/25/22 1216 BP: (!) 159/52 Pulse: 74 Temp: 36.6 ??C (97.8 ??F) TempSrc: Resp: 15 Height: Weight: SpO2: 95% BMI (Calculated): Condition at Discharge: fair Current Discharge Medication List New Prescriptions Details aspirin 81 MG chewable tablet Dose: 81 mg Start taking on: March 26, 2022 81 mg, Chew, ONCE DAILY, Take with food. Continued Details atorvaSTATin 20 MG tablet Commonly known as: Lipitor Dose: 20 mg 20 mg, Oral, ONCE DAILY carvedilol 25 MG tablet Commonly known as: Coreg Dose: 25 mg 25 mg, Oral, 2 TIMES DAILY WITH MEALS empagliflozin 25 MG Tablet Commonly known as: Jardiance Dose: 25 mg 25 mg, Oral, ONCE DAILY, Do not chew or crush. omeprazole 20 MG delayed-release capsule Commonly known as: PriLOSEC Dose: 20 mg 20 mg, Oral, ONCE DAILY, Take before meals. Do not crush. spironolactone 25 MG tablet Commonly known as: Aldactone Dose: 25 mg 25 mg, Oral, ONCE DAILY valsartan 320 MG tablet Commonly known as: Diovan Dose: 320 mg 320 mg, Oral, ONCE DAILY You might also be taking other medications not listed above. If you have questions about any of your other medications, talk to the person who prescribed them or your Primary Care Provider. Stopped apixaban 5 MG tablet Commonly known as: Eliquis Follow Up Instructions: Unlisted, Provider Follow up appointment with PCP- No primary care provider on file. within 5 days. Follow-Up Recommendations for PCP: routine Discharge Procedure Orders Follow-up With: Other Specialty; Referral Type: Hospital Follow Up; Dept Specialty: Cardiology Referral Priority: Routine Referral Type: Office Visit Referral Location: [facility] Referred to Provider: UNLISTED, PROVIDER Number of Visits Requested: 1 Expiration Date: 09/21/22 Code Status: Full Code Recent Labs: In Process Labs (336h ago, onward) None Recent Results (from the past 24 hour(s)) GLUCOSE, METER Result Value Ref Range Glucose Meter 147 (H) 70 - 99 mg/dL HEMOGLOBIN Result Value Ref Range HGB 7.9 (L) 12.9 - 16.9 g/dL GLUCOSE, METER Result Value Ref Range Glucose Meter 168 (H) 70 - 99 mg/dL BASIC METABOLIC PANEL Result Value Ref Range Sodium 140 134 - 143 mEq/L Potassium 3.7 3.4 - 5.1 mEq/L Chloride 112 (H) 99 - 110 mEq/L Carbon Dioxide 22 19 - 29 mEq/L Anion Gap 6.0 3.0 - 15.0 mEq/L Blood Urea Nitrogen 18 5 - 24 mg/dL Creatinine 0.92 0.70 - 1.20 mg/dL Glomerular Filtration Rate 81 >60 mL/min/1.73 m*2 Calcium 8.1 (L) 8.4 - 10.5 mg/dL Glucose 164 (H) 70 - 99 mg/dL Narrative Current ADA criteria for Glucose: Normal: 70-99 mg/dL Impaired Fasting Glucose: 100-125 mg/dL Diabetes Mellitus: at or above 126 mg/dL The diagnosis of diabetes must be confirmed on a subsequent day by measuring Fasting Plasma Glucose,2-hr PG or random plasma glucose (if symptoms are present). MAGNESIUM Result Value Ref Range Magnesium 1.9 1.8 - 2.7 mg/dL PHOSPHORUS Result Value Ref Range Phosphorus 2.5 2.5 - 4.6 mg/dL WHITE BLOOD COUNT Result Value Ref Range WBC 45.0 (H) 3.2 - 11.0 10*9/L PLATELET COUNT Result Value Ref Range PLT 130 130 - 375 10*9/L HEMOGLOBIN Result Value Ref Range HGB 7.7 (L) 12.9 - 16.9 g/dL GLUCOSE, METER Result Value Ref Range Glucose Meter 223 (H) 70 - 99 mg/dL GLUCOSE, METER Result Value Ref Range Glucose Meter 179 (H) 70 - 99 mg/dL Agustin Palacio MD Total time spent for discharge on date of discharge: Less than 30 minutes. GE LOADER documented in this encounter Discharge Instructions Jane Mejia RN - 03/22/2022 3:19 PM CDT [facility] Interventional Radiology Patient Discharge Instructions Angiogram with or without Intervention Notify your Doctor immediately if you have any unusual complaints or any of the following problems: Bleeding from the puncture site(s). If bleeding occurs, lie down and apply firm pressure about 2 fingers above the site. Keep pressure on the site and call 911. Numbness and/or tingling in the leg used for the puncture site. Increased pain, swelling or firmness near the puncture site. Fever greater than 100.5 F, chills, nausea, vomiting. Drainage from the puncture site. At home instructions: No driving/dangerous activities for up to 24 hours. No business transactions or legally binding agreements for 24 hours. Avoid heavy lifting (no more than 10 pounds), straining or strenuous activity for 72 hours. When using stairs, step with the leg that WAS NOT used for the procedure, first applying the most pressure on the leg that was not used for the procedure. Keep leg that was used as straight as possible for the rest of the day. Do not sit or submerge in a bathtub or pool for 1 week until the wound has completely healed. Remove Tegaderm (clear dressing) in 48 hours. A bandage is no longer necessary after 48 hours - leave open to the air. If you have Dermabond (surgical glue) over the site, please leave on for 5-7 days or until it falls off naturally. You may resume your regular diet. Drink extra fluids today. Follow up: FOLLOW UP WITH YOUR REFERRING PHYSICIAN. They are responsible for giving you the results. Avoid smoking and using tobacco products. Smoking is harmful to your health. If you smoke, stop smoking. Resume all previously prescribed medications as prescribed by your doctor. Numbers to call: If you have questions regarding follow-up and/or further care, contact your primary care physician or the ordering physician. If you have problems or questions related directly to your procedure, please call the IR coordinatorat [phone] M-F from 8:00 am - 4:00pm. If after hours, call Ask a Nurse at [phone] and press ???3?? to have a nurse return your phonecall (evenings, weekends, holidays) Call 911 for life threatening emergencies AttachmentsThe following attachments cannot be sent through Care Everywhere. Shock: First Aid ([place]i)Gastrointestinal (GI) Bleeding, When You Have ([place])Understanding Pouchitis ([place])documented in this encounter Medications at Time of Discharge Medication Sig Dispensed Refills Start Date End Date aspirin 81 MG chewable Chew and swallow 1 30 Tablet 0 03/2604/25/2022 tablet Tablet one time a day for 30 days. Take with food. empagliflozin (Jardiance) Take 25 mg by mouth 0 25 MG Tablet one time a day. Do not chew or crush. spironolactone (Aldactone) Take 25 mg by mouth 0 25 MG tablet one time a day. carvedilol (Coreg) 25 MG Take 25 mg by mouth 0 tablet two times a day with meals. valsartan (Diovan) 320 MG Take 320 mg by 0 tablet mouth one time a day. omeprazole (PriLOSEC) 20 Take 20 mg by mouth 0 MG delayed-release capsule one time a day. Take before meals. Do not crush. atorvaSTATin (Lipitor) 20 Take 20 mg by mouth 0 MG tablet one time a day. documented as of this encounter Ordered Prescriptions Prescription Sig Dispensed Refills Start Date End Date aspirin 81 MG chewable Chew and swallow 1 30 Tablet 0 03/2604/25/2022 tablet Tablet one time a day for 30 days. Take with food. documented in this encounter Discharge Disposition Disposition Code Departure Means Destination Comments Home and/or Self Residential documented in this encounter Progress Notes Jomar Wilson RN - 03/25/2022 5:41 PM CST AVS reviewed in detail with patient. Plan of care discussed and all questions answered. Patient and all belongings xfered to private vehicle via wheelchair. Patient's son will drive home. He has 81mg ASA at home. Jomar Wilson RN 03/25/2022 5:43 PM Charity Ross - 03/25/2022 1:17 PM CST Images from the original note were not included. Hospital Pharmacist Transition of Care (FOREIGN) Discharge Note Discharge medication reconciliation was reviewed by Charity Samuel, Pharm.D Prior to admission and inpatient medications lists reviewed (with special attention to unintended discrepancies in ordering including formulary substitutions, therapeutic duplications, stop times for time sensitive medications, dose variation or medication changes). 03/23/22 0803 Admission Acute Care Transition of Care Service? Yes Potential medication issues for discharge? No Education expected at discharge? No Discharge Number of interventions made 1 (Aspirin 81 mg daily was supposed to be continued for discharge but not on discharge medication list. Discussed with MD - prescribed for discharge) Time spent reviewing patient chart/documentation 15 Minutes Time spent providing patient education N/A Discharge services complete? Yes Current Discharge Medication List New Prescriptions Details aspirin 81 MG chewable tablet Dose: 81 mg Start taking on: March 26, 2022 81 mg, Chew, ONCE DAILY, Take with food. Continued Details atorvaSTATin 20 MG tablet Commonly known as: Lipitor Dose: 20 mg 20 mg, Oral, ONCE DAILY carvedilol 25 MG tablet Commonly known as: Coreg Dose: 25 mg 25 mg, Oral, 2 TIMES DAILY WITH MEALS empagliflozin 25 MG Tablet Commonly known as: Jardiance Dose: 25 mg 25 mg, Oral, ONCE DAILY, Do not chew or crush. omeprazole 20 MG delayed-release capsule Commonly known as: PriLOSEC Dose: 20 mg 20 mg, Oral, ONCE DAILY, Take before meals. Do not crush. spironolactone 25 MG tablet Commonly known as: Aldactone Dose: 25 mg 25 mg, Oral, ONCE DAILY valsartan 320 MG tablet Commonly known as: Diovan Dose: 320 mg 320 mg, Oral, ONCE DAILY You might also be taking other medications not listed above. If you have questions about any of your other medications, talk to the person who prescribed them or your Primary Care Provider. Stopped apixaban 5 MG tablet Commonly known as: Eliquis GE LOADER Shirley Dewey APRN, CNP - 03/25/2022 10:23 AM CST Gastroenterology Progress Note ASSESSMENT/PLAN: Date of Admission: 03/22/2022 LOS: 3 days (Length of Stay) Hospital Day: 4 Patient is a 86 year old male with: // BRBPR - resolved post colonoscopy with no BMs or abdominal pain - trend H/H No repeat screening colonoscopy due to age. Colonoscopy 03/23/22 Post-Op Diagnosis: ? - The examined portion of the ileum was normal. - Diverticulosis in the sigmoid colon. - Diverticulosis in the sigmoid colon. Clips (MR conditional) were placed. - Internal hemorrhoids. - No specimens collected. GI team will sign off but remain available if needed. Please contact our office if we can be of any further assistance. HPI Sitting up in bedside chair. Denies abdominal pain, nausea, or vomiting. Review of Systems All other systems reviewed and are negative. PMH: No past medical history on file. PSH: Past Surgical History: Procedure Laterality Date ??? COLONOSCOPY N/A 03/23/2022 Procedure: COLONOSCOPY DIAGNOSTIC; Surgeon: Kamlesh Pireto DO; Location: [facility] ENDOSCOPY ??? OTHER SURGICAL HISTORY Right 03/22/2022 Procedure: Mesenteric angiogram; Surgeon: Yair Jones MD; Location: [facility] INTERVENTIONAL RADIOLOGY FH: No family history on file. SH: Social History Socioeconomic History ??? Marital status: Unknown Spouse name: Not on file ??? Number of children: Not on file ??? Years of education: Not on file ??? Highest education level: Not on file Occupational History ??? Not on file Tobacco Use ??? Smoking status: Former Packs/day: 0.50 Years: 30.00 Pack years: 15.00 Types: Cigarettes Start date: 1952 Quit date: 1982 Years since quittin.8 ??? Smokeless tobacco: Never Vaping Use ??? Vaping Use: Never used Substance and Sexual Activity ??? Alcohol use: Not on file ??? Drug use: Defer ??? Sexual activity: Defer Other Topics Concern ??? Not on file Social History Narrative ??? Not on file Social Determinants of Health Financial Resource Strain: Not on file Food Insecurity: Not on file Transportation Needs: Not on file Physical Activity: Not on file Stress: Not on file Social Connections: Not on file Intimate Partner Violence: Not on file Housing Stability: Not on file Meds: Prior to Admission medications Medication Sig Start Date End Date Taking? Authorizing Provider apixaban (Eliquis) 5 MG tablet Take 5 mg by mouth two times a day. Yes Abstract, ProviderMD empagliflozin (Jardiance) 25 MG Tablet Take 25 mg by mouth one time a day. Do not chew or crush. YesAbstract, ProviderMD spironolactone (Aldactone) 25 MG tablet Take 25 mg by mouth one time a day. Yes Abstract, ProviderMD carvedilol (Coreg) 25 MG tablet Take 25 mg by mouth two times a day with meals. Yes Abstract, ProviderMD valsartan (Diovan) 320 MG tablet Take 320 mg by mouth one time a day. Yes Abstract, ProviderMD omeprazole (PriLOSEC) 20 MG delayed-release capsule Take 20 mg by mouth one time a day. Take before meals. Do not crush. Yes Abstract, Provider, atorvaSTATin (Lipitor) 20 MG tablet Take 20 mg by mouth one time a day. Yes Abstract, Provider, Allergies: Allergies Allergen Reactions ??? Amlodipine Other and Unknown Leg swelling on 5mg Leg swelling on 5mg ??? Metformin Diarrhea Physical Exam Vitals: Patient Vitals for the past 8 hrs: Temp Temp src Pulse BP Resp SpO2 03/25/22 0932 -- -- 89 116/58 21 -- 03/25/22 0748 -- -- 84 (!) 175/59 21 96 % 03/25/22 0747 -- -- 82 (!) 174/63 20 96 % 03/25/22 0330 36.8 ??C (98.3 ??F) Axillary 80 134/52 23 95 % 03/25/22 0300 -- -- 81 (!) 153/66 12 -- 03/25/22 0230 -- -- 80 (!) 112/45 20 -- Constitutional: Pt is alert and oriented to person, place, and time. HEENT: Normocephalic and atraumatic. Pupils are equal, round, and reactive to light. Pulmonary/Chest: Effort normal. No respiratory distress. Abdominal: Soft. Non-distended. Musculoskeletal: Normal range of motion in chair. No edema, cyanosis or clubbing. Neurological: Answers questions appropriately. LABS: Recent Results (from the past 12 hour(s)) BASIC METABOLIC PANEL Result Value Ref Range Sodium 140 134 - 143 mEq/L Potassium 3.7 3.4 - 5.1 mEq/L Chloride 112 (H) 99 - 110 mEq/L Carbon Dioxide 22 19 - 29 mEq/L Anion Gap 6.0 3.0 - 15.0 mEq/L Blood Urea Nitrogen 18 5 - 24 mg/dL Creatinine 0.92 0.70 - 1.20 mg/dL Glomerular Filtration Rate 81 >60 mL/min/1.73 m*2 Calcium 8.1 (L) 8.4 - 10.5 mg/dL Glucose 164 (H) 70 - 99 mg/dL Narrative Current ADA criteria for Glucose: Normal: 70-99 mg/dL Impaired Fasting Glucose: 100-125 mg/dL Diabetes Mellitus: at or above 126 mg/dL The diagnosis of diabetes must be confirmed on a subsequent day by measuring Fasting Plasma Glucose,2-hr PG or random plasma glucose (if symptoms are present). MAGNESIUM Result Value Ref Range Magnesium 1.9 1.8 - 2.7 mg/dL PHOSPHORUS Result Value Ref Range Phosphorus 2.5 2.5 - 4.6 mg/dL WHITE BLOOD COUNT Result Value Ref Range WBC 45.0 (H) 3.2 - 11.0 10*9/L PLATELET COUNT Result Value Ref Range PLT 130 130 - 375 10*9/L HEMOGLOBIN Result Value Ref Range HGB 7.7 (L) 12.9 - 16.9 g/dL GLUCOSE, METER Result Value Ref Range Glucose Meter 223 (H) 70 - 99 mg/dL IMAGING/PROCEDURES: No results found for this or any previous visit (from the past 24 hour(s)). Shirley Dewey APRN, CNP [address] Gastroenterology GE LOADER Ban Gutiérrez RN - 03/24/2022 11:50 AM CST Discharge planning daily update Anticipated discharge level of care per IDT: TBD Barriers for discharge planning: none identified to date Additional information: none Discharge planning updates provided to care team. QUINTEN Castillo, RN, Senior Investment Manager P: [phone]; F: [phone]; Pager: [phone] Mere Prescott APRN, CNP - 03/24/2022 7:45 AM CST 03/24/2022 CRITICAL CARE MEDICINE Mere Ewing APRN, CNP PROGRESS NOTE ASSESSMENT/PLAN Patient is an 86-year-old male with PMH of paroxysmal atrial fibrillation on Eliquis, HFpEF, moderate , CLL not on treatment, hypertension, CAD s/p PCI in 2020, type 2 diabetes on oral medications, diverticulitis s/p partial colectomy 15 years ago (patient reports they removed 18 inches of colon), and cholecystectomy who presented to [facility] on 03/22 with bright red blood per rectum with CT angio demonstrating active contrast extravasation in the descending and proximal sigmoid colon. He was transferred to [facility] by ground due to being stable and went to IR for embolization,however there was no active bleeding visualized during IR thus there was no intervention. Unfortunately during the IR procedure his ARA was iatrogenically dissected. Flow through the ARA limited although remained patent with patent SMA collaterals. Hospital LOS: 2 INTERVAL HISTORY 1 PRBC yesterday for HD instability with ability to wean off vasopressors after transfusion. Colonoscopy showed diverticula with adherent clot s/p 2 clips. Pressors restarted overnight, now weaned off this morning MAIN PROBLEMS 1. Lower GIB / hemorraghic shock / acute blood loss anemia - s/p 2 clips to diverticula in the sigmoid colon - continue to trend Hgb q6h for now given ongoing decline which is potentially equilibrating given no documented bloody stools overnight - transfuse if <7.0 or if hemodynamically unstable - continue to hold AC for now, potentially indefinitely given severe bleeding and evidence of multiple diverticula with high risk for re-bleeding - continue with clear liquids until this afternoon. If stable, will advance 2. Atrial fibrillation / pericardial effusion / hypertension / moderate / CAD s/p PCI / HFpEF - hold anticoagulation as above. Will refer him to his Cheesemaker Helper at [facility] to discuss Watchman procedure (appointment placed in [place] navigator) - for now will start ASA starting tomorrow - resume atorvastatin - resume antihypertensives when appropriate 3. Type 2 diabetes - ISS ACHS while inpatient - resume Jardiance on discharge 4. IVETTE - likely due to hemorraghic shock and contrast administration - hourly I/O - avoid nephrotoxins - maintain MAP>65 for adequate renal perfusion - BMP daily Rest by Organ System: 1. ID - no abx. Leukocytosis likely related to GIB and known CLL, improved 2. Cardiovascular - as above 3. Pulmonary - no acute issues 4. Renal - I/O. BMP daily 5. GI - as above 6. Endocrine - ISS 7. Heme - as above 8. Neuro - no acute issues 9. Electrolytes - replace prn Note and assessment/ plan discussed with Irrigator Gravity Flow Dr. Jones Critical care: 45 minutes Patient is critically ill due to hemorraghic shock ICU Prophylaxis: VTE Prophylaxis: SCDs GI Prophylaxis: protonix Nutrition: clear liquids Lines: PIVs Restraints: Not Applicable SUBJECTIVE Denies chest pain, SOB, abdominal pain, N/V. No bloody BMs overnight OBJECTIVE Temp Av.8 ??C (98.3 ??F) Min: 36.7 ??C (98.1 ??F) Max: 37 ??C (98.6 ??F) Pulse Av.3 Min: 37 Max: 84 BP Min: 90/65 Max: 158/44 Resp Av.9 Min: 14 Max: 27 SpO2 Av.2 % Min: 87 % Max: 99 % Intake/Output Summary (Last 24 hours) at 03/24/2022 0745 Last data filed at 03/24/2022 0606 Gross per 24 hour Intake 6155.83 ml Output 1025 ml Net 5130.83 ml Last 3 Weights 03/22/22 1430 03/23/22 0429 03/24/22 0421 Weight: 90.2 kg (198 lb 13.7 oz) 88.9 kg (195 lb 15.8 oz) 86.3 kg (190 lb 4.1 oz) Initial Weight: 90.2 kg (198 lb 13.7 oz) Exam: GEN - pleasant male, up in chair, improved color HEENT - moist, pink MM NECK - supple CHEST - clear bilaterally CV - RRR. Murmur ABD - soft, NTND. +BS EXT - no edema SKIN - no rashes or lesions NEURO - no focal deficits Lab results: IVETTE Leukocytosis Acute blood loss anemia Mere Ewing APRN, PRODUCE FIELD MERCHANDISER Critical Care Medicine GE LOADER Glynn Jones MD - 03/24/2022 7:44 AM CST Critical Care Progress Note Glynn Jones MD 03/24/2022 Daily progress note A detailed note pertaining to patient's prior history, ongoing hospital care and outlining the entirety of the plan discussed with the team and myself during rounds written today by Meer Ewing APRN PRODUCE FIELD MERCHANDISER. SUBJECTIVE Status post colonoscopy last evening and noted with diverticuli with clot status post 2 clips. No evidence of bright red blood per rectum overnight. Patient has been weaned off of IV pressors this morning. Advanced on clear liquids and tolerating well this morning. OBJECTIVE Temp Av.8 ??C (98.3 ??F) Min: 36.7 ??C (98.1 ??F) Max: 37 ??C (98.6 ??F) Pulse Av.3 Min: 37 Max: 84 BP Min: 90/65 Max: 158/44 Resp Av.9 Min: 14 Max: 27 SpO2 Av.2 % Min: 87 % Max: 99 % Intake/Output Summary (Last 24 hours) at 03/24/2022 0744 Last data filed at 03/24/2022 0606 Gross per 24 hour Intake 6155.83 ml Output 1025 ml Net 5130.83 ml Last 3 Weights 03/22/22 1430 03/23/22 0429 03/24/22 0421 Weight: 198 lb 13.7 oz (90.2 kg) 195 lb 15.8 oz (88.9 kg) 190 lb 4.1 oz (86.3 kg) Initial Weight: 198 lb 13.7 oz (90.2 kg) Exam: GEN: Pleasant elderly gentleman sitting in chair, alert and oriented x3, no acute distress HEENT: No JVD, dry mucous membranes NEURO: Nonfocal CV : S1-S2, RRR PULM : Clear to auscultation bilaterally ABD : Soft, bowel sounds present, nondistended, nontender EXT : No edema SKIN : Warm and dry Labs reviewed : Recent Results (from the past 24 hour(s)) HEMOGLOBIN Result Value Ref Range HGB 8.0 (L) 12.9 - 16.9 g/dL GLUCOSE, METER Result Value Ref Range Glucose Meter 170 (H) 70 - 99 mg/dL PROTIME Result Value Ref Range INR 1.3 (H) 0.9 - 1.1 Protime 15.7 (H) 12.0 - 14.1 sec Narrative Suggested therapeutic INR ranges for oral anticoagulant therapy: Category INR Value Prophylaxis 2.0-3.0 Treat Thrombosis or Embolism 2.0-3.0 Prosthetic Heart Valve 2.5-3.5 HEMOGLOBIN Result Value Ref Range HGB 9.0 (L) 12.9 - 16.9 g/dL RAPID SARS-COV-2 RNA (COVID-19), MOLECULAR DETECTION Specimen: Nasal; Swab Result Value Ref Range SARS-CoV-2 RNA (COVID-19) Negative Negative/Not Detected Narrative Test detects target RNA by real-time polymerase chain reaction (PCR) on the [employer] GeneXpert System. Results should be used in combination with clinical observations, patient history and epidemiological information. Results from this test should not be used as the sole basis for treatment or other patient management decisions. The SARS-CoV-2 test is currently only for use under the Food and Drug Administration's Emergency UseAuthorization. Additional information about conditions of authorization for this test can be found at: https://www.fda.gov/medical-devices/mvuqhqkdw-jgoiuijziy-ysnowmg-devices/emergen qq-ftv-jmumdvxhczasxq ADMIT MRSA, MOLECULAR DETECTION Specimen: Nares; Swab Result Value Ref Range MRSA Not Detected Not Detected Narrative Test results must be interpreted within the context of all relevant clinical and laboratory findings. Test performance has not been evaluated in patients less than two (2) yeas of age. Method Information This test uses the [employer] Xpert MRSA NxG assay to detect methicillin-resistant Staphylococcus aureus (MRSA) DNA by real-time polymerase chain reaction (PCR) on the [employer] GeneXpert Instrument System.The Xpert MRSA NxG test detects sequences for methicillin/oxacillin resistance (mecA and mecC genes), and SCCmec, which is inserted into the Staphylococcus aureus chromosome at the attB site. HEMOGLOBIN Result Value Ref Range HGB 8.0 (L) 12.9 - 16.9 g/dL GLUCOSE, METER Result Value Ref Range Glucose Meter 124 (H) 70 - 99 mg/dL HEMOGLOBIN Result Value Ref Range HGB 7.7 (L) 12.9 - 16.9 g/dL GLUCOSE, METER Result Value Ref Range Glucose Meter 146 (H) 70 - 99 mg/dL BASIC METABOLIC PANEL Result Value Ref Range Sodium 141 134 - 143 mEq/L Potassium 4.1 3.4 - 5.1 mEq/L Chloride 113 (H) 99 - 110 mEq/L Carbon Dioxide 19 19 - 29 mEq/L Anion Gap 9.0 3.0 - 15.0 mEq/L Blood Urea Nitrogen 28 (H) 5 - 24 mg/dL Creatinine 1.22 (H) 0.70 - 1.20 mg/dL Glomerular Filtration Rate 58 (L) >60 mL/min/1.73 m*2 Calcium 7.8 (L) 8.4 - 10.5 mg/dL Glucose 186 (H) 70 - 99 mg/dL Narrative Current ADA criteria for Glucose: Normal: 70-99 mg/dL Impaired Fasting Glucose: 100-125 mg/dL Diabetes Mellitus: at or above 126 mg/dL The diagnosis of diabetes must be confirmed on a subsequent day by measuring Fasting Plasma Glucose,2-hr PG or random plasma glucose (if symptoms are present). MAGNESIUM Result Value Ref Range Magnesium 1.8 1.8 - 2.7 mg/dL PHOSPHORUS Result Value Ref Range Phosphorus 3.2 2.5 - 4.6 mg/dL WHITE BLOOD COUNT Result Value Ref Range WBC 62.6 (HH) 3.2 - 11.0 10*9/L PLATELET COUNT Result Value Ref Range PLT 150 130 - 375 10*9/L HEMOGLOBIN Result Value Ref Range HGB 7.5 (L) 12.9 - 16.9 g/dL ASSESSMENT AND PLAN This is a very pleasant 86-year-old gentleman with past medical history of atrial fibrillation on Eliquis, CLL not on treatment, hypertension, type 2 diabetes mellitus on oral medications, previous history of diverticulitis status post partial colectomy 15 years ago, cholecystectomy who presented to an outside hospital on 03/22 with complaints of bright red blood per rectum and CT angio demonstrating active contrast extravasation in the descending and proximal sigmoid colon was transferred to [facility] and underwent CTA per IR for embolization which did not show any active bleeding however unfortunately the patient developed an iatrogenic ARA dissection now noted with persistent bright red blood per rectum overnight and hemodynamic instability requiring initiation of IV pressors. 1. GI bleed-likely lower GI 2. Hemorrhagic shock 3. Acute blood loss anemia secondary to #1 4. History of atrial fibrillation on Eliquis status post Kcentra 5. Possible pericardial effusion noted on CT scan 6. Type 2 diabetes on oral medications 7. IVETTE -Transfuse hemoglobin to goal greater than 7 - Hemoglobin checks every 6 hours - If next hemoglobin continues to be downtrending we will likely transfuse patient 1 unit PRBC - Appreciate GI input - Clear liquid diet today and advance if tolerates over the next 24 hours - Maintain MAP goal greater than 65 - Continue to hold anticoagulation - Insulin sliding scale to maintain blood sugar less than 180 - IVETTE likely in the setting of hemorrhagic shock and contrast administration. Receiving some IV fluids. Will avoid nephrotoxins - Rest of plan as per Mere Robberstad [employer] Critical Care: 30 minutes excluding procedures. This patient is critically ill due to: Circulatory shock requiring vasopressors/inotropes Acute blood loss anemia secondary to likely lower GI bleed Glynn Jones MD Pulmonary and Critical Care Medicine [facility] [address] [facility] [place] [address] GE LOADER Glynn Jones MD - 03/23/2022 12:27 PM CST Critical Care Progress Note Glynn Jones MD 03/23/2022 Daily progress note A detailed note pertaining to patient's prior history, ongoing hospital care and outlining the entirety of the plan discussed with the team and myself during rounds written today by Mere Ewing APRN, CNP. SUBJECTIVE Overnight the patient had 5 bloody bowel movements and noted with hypotension requiring initiation of IV pressors. Transfusing 1 unit PRBC and 500 cc of LR this morning with improving hemodynamics and reduction in pressor requirements. Status post selective SMA and ARA angiography to assess for bleeding however no embolization performed as no contrast extravasation was appreciated. Unfortunately patient developed iatrogenic proximal ARA dissection, the flow was limited although remained patent and SMA collaterals were noted to be intact. OBJECTIVE Temp Av.9 ??C (98.4 ??F) Min: 36.7 ??C (98.1 ??F) Max: 37.2 ??C (99 ??F) Pulse Av.2 Min: 50 Max: 95 BP Min: 65/47 Max: 158/44 Resp Av.2 Min: 14 Max: 26 SpO2 Av.5 % Min: 89 % Max: 98 % Intake/Output Summary (Last 24 hours) at 03/23/2022 1227 Last data filed at 03/23/2022 1103 Gross per 24 hour Intake 1762 ml Output 1350 ml Net 412 ml Last 3 Weights 03/22/22 1430 03/23/22 0429 Weight: 198 lb 13.7 oz (90.2 kg) 195 lb 15.8 oz (88.9 kg) Initial Weight: 198 lb 13.7 oz (90.2 kg) Exam: GEN: Pleasant elderly gentleman laying in bed, alert and oriented x3, no acute distress HEENT: No JVD, dry mucous membranes, conjunctival pallor NEURO: Nonfocal CV : S1-S2, RRR PULM : Clear to auscultation bilaterally ABD : Soft, bowel sounds present, nondistended, nontender EXT : No edema SKIN : Warm and dry Labs reviewed : Recent Results (from the past 24 hour(s)) GLUCOSE, METER Result Value Ref Range Glucose Meter 183 (H) 70 - 99 mg/dL TYPE AND SCREEN Result Value Ref Range ABO Group O RH Type POS Antibody Screen NEG HEMOGRAM Result Value Ref Range WBC 56.7 (HH) 3.2 - 11.0 10*9/L RBC 3.42 (L) 4.14 - 5.76 10*12/L HGB 10.0 (L) 12.9 - 16.9 g/dL HCT 31.3 (L) 38.4 - 49.7 % MCV 91.5 81.4 - 99.0 fL MCH 29.2 26.7 - 33.1 pg MCHC 31.9 31.6 - 35.5 g/dL RDW 14.6 11.3 - 14.6 % PLT 193 130 - 375 10*9/L COMPREHENSIVE METABOLIC PANEL Result Value Ref Range Sodium 142 134 - 143 mEq/L Potassium 4.5 3.4 - 5.1 mEq/L Chloride 114 (H) 99 - 110 mEq/L Carbon Dioxide 19 19 - 29 mEq/L Anion Gap 9.0 3.0 - 15.0 mEq/L Blood Urea Nitrogen 26 (H) 5 - 24 mg/dL Creatinine 0.98 0.70 - 1.20 mg/dL Glomerular Filtration Rate 75 >60 mL/min/1.73 m*2 Calcium 8.3 (L) 8.4 - 10.5 mg/dL Glucose 208 (H) 70 - 99 mg/dL Protein, Total 5.0 (L) 6.0 - 8.0 g/dL Albumin 2.9 (L) 3.5 - 5.0 g/dL Alkaline Phosphatase 81 40 - 150 IU/L Aspartate Aminotransferase 16 10 - 40 IU/L Alanine Aminotransferase 13 6 - 40 IU/L Bilirubin, Total 0.5 0.2 - 1.2 mg/dL Narrative Current ADA criteria for Glucose: Normal: 70-99 mg/dL Impaired Fasting Glucose: 100-125 mg/dL Diabetes Mellitus: at or above 126 mg/dL The diagnosis of diabetes must be confirmed on a subsequent day by measuring Fasting Plasma Glucose,2-hr PG or random plasma glucose (if symptoms are present). MAGNESIUM Result Value Ref Range Magnesium 1.7 (L) 1.8 - 2.7 mg/dL PHOSPHORUS Result Value Ref Range Phosphorus 3.2 2.5 - 4.6 mg/dL LACTIC ACID, VENOUS Result Value Ref Range Lactic Acid, Venous 1.0 0.5 - 2.0 mmol/L TROPONIN I Result Value Ref Range Troponin I 0.020 0.000 - 0.028 ng/mL Narrative Because no pediatric reference range data is published, the adult reference range will be utilized as this represents 99% of healthy adults. PROTIME Result Value Ref Range INR 1.3 (H) 0.9 - 1.1 Protime 15.6 (H) 12.0 - 14.1 sec Narrative Suggested therapeutic INR ranges for oral anticoagulant therapy: Category INR Value Prophylaxis 2.0-3.0 Treat Thrombosis or Embolism 2.0-3.0 Prosthetic Heart Valve 2.5-3.5 RED BLOOD CELLS Result Value Ref Range Leukoreduced RBC [id number] issued 03/23/22 08:05 LLM2 Unit ABO Type O Unit Rh Type POS Unit Number [id number] Unit Status issued Unit Barcoded Product Code [id number] Narrative Type and Screen required for all RBC products.Transfusion Indications:- >Clinically significant acute bloodloss1 UNITS HEMOGLOBIN Result Value Ref Range HGB 9.0 (L) 12.9 - 16.9 g/dL ABORH 2ND DRAW Result Value Ref Range ABO Group O RH Type POS HEMOGLOBIN Result Value Ref Range HGB 8.3 (L) 12.9 - 16.9 g/dL LACTIC ACID, VENOUS Result Value Ref Range Lactic Acid, Venous 0.8 0.5 - 2.0 mmol/L GLUCOSE, METER Result Value Ref Range Glucose Meter 150 (H) 70 - 99 mg/dL BASIC METABOLIC PANEL Result Value Ref Range Sodium 143 134 - 143 mEq/L Potassium 4.6 3.4 - 5.1 mEq/L Chloride 115 (H) 99 - 110 mEq/L Carbon Dioxide 15 (L) 19 - 29 mEq/L Anion Gap 13.0 3.0 - 15.0 mEq/L Blood Urea Nitrogen 32 (H) 5 - 24 mg/dL Creatinine 1.27 (H) 0.70 - 1.20 mg/dL Glomerular Filtration Rate 55 (L) >60 mL/min/1.73 m*2 Calcium 8.2 (L) 8.4 - 10.5 mg/dL Glucose 184 (H) 70 - 99 mg/dL Narrative Current ADA criteria for Glucose: Normal: 70-99 mg/dL Impaired Fasting Glucose: 100-125 mg/dL Diabetes Mellitus: at or above 126 mg/dL The diagnosis of diabetes must be confirmed on a subsequent day by measuring Fasting Plasma Glucose,2-hr PG or random plasma glucose (if symptoms are present). MAGNESIUM Result Value Ref Range Magnesium 1.8 1.8 - 2.7 mg/dL PHOSPHORUS Result Value Ref Range Phosphorus 4.4 2.5 - 4.6 mg/dL WHITE BLOOD COUNT Result Value Ref Range WBC 78.1 (HH) 3.2 - 11.0 10*9/L PLATELET COUNT Result Value Ref Range PLT 188 130 - 375 10*9/L HEMOGLOBIN Result Value Ref Range HGB 8.1 (L) 12.9 - 16.9 g/dL PROCALCITONIN, BLOOD Result Value Ref Range Procalcitonin 0.06 <0.50 ng/mL Narrative Procalcitonin Interpretation Guidelines: Diagnosis of systemic bacterial infection/sepsis and/or septic shock: < 0.50 ng/mL Low risk for sepsis; localized bacterial infection possible 0.50 - 2.00 ng/mL Sepsis is possible; Interpret in context of specific clinical background and condition of the patient - recommend retesting Procalcitonin within 6 - 24 hours > 2.00 ng/mL High risk for sepsis and/or septic shock Diagnosis of lower respiratory tract infection: < 0.10 ng/mL Bacterial infection very unlikely 0.10 - 0.25 ng/mL Bacterial infection unlikely 0.26 - 0.50 ng/mL Bacterial infection likely > 0.50 ng/mL Bacterial infection very likely Procalcitonin levels must be interpreted in the context of all laboratory findings and the total clinical status of the patient. GLUCOSE, METER Result Value Ref Range Glucose Meter 165 (H) 70 - 99 mg/dL URINALYSIS, REFLEX TO MICROSCOPIC Result Value Ref Range Urine Color Yellow Straw, Yellow, Nicki Urine Appearance Clear Clear Urine Specific [place] 1.015 1.003 - 1.035 Urine pH 5.5 5.0 - 8.0 Urine Glucose 500 (A) Negative Urine Ketones 80 (A) Negative Urine Protein Negative Negative, Trace mg/dL Urine Nitrites Negative Negative Urine Leukocyte Esterase Negative Negative Narrative A routine urine not reflexing to a microscopic exam automatically means the dipstick blood test is negative. 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 and underwent CTA per IR for embolization which did not show any active bleeding however unfortunately the patient developed an iatrogenic ARA dissection now noted with persistent bright red blood per rectum overnight and hemodynamic instability requiring initiation of IV pressors. 1. GI bleed-likely lower GI 2. Hemorrhagic shock 3. Acute blood loss anemia secondary to #1 4. History of atrial fibrillation on Eliquis status post Kcentra 5. Possible pericardial effusion noted on CT scan 6. Type 2 diabetes on oral medications 7. IVETTE -Transfuse hemoglobin to goal greater than 7 - Given active bleeding and downtrending of hemoglobin the patient has been transfused 1 unit PRBC - Maintain MAP goal greater than 65 -Would continue with volume resuscitation - GI consultation obtained for planned colonoscopy this afternoon -Trend hemoglobin every 6 hours - Undergoing bowel prep and patient will have colonoscopy sometime later this afternoon after completion of bowel prep - Continue to hold anticoagulation - Obtain echocardiogram - Insulin sliding scale to maintain blood sugar less than 180 - IVETTE likely in the setting of hemorrhagic shock and contrast administration. Receiving some IV fluids. Will avoid nephrotoxins -we will follow-up with GI postprocedure - Rest of plan as per Mere Ewing APRN, CNP Critical Care: 30 minutes excluding procedures. This patient is critically ill due to: Circulatory shock requiring vasopressors/inotropes Acute blood loss anemia secondary to likely lower GI bleed Glynn Jones MD Pulmonary and Critical Care Medicine [facility] [address] [facility] [place] [address] GE LOADER Ban Gutiérrez RN - 03/23/2022 8:59 AM CST [facility] ADMISSION NOTE: Readmission: No LACE score: 4 EMR reviewed, patient was independent prior to admission. Pt resides at home with family members in [place] [address]. Transfer from [facility] to [facility]. Services prior to admission include: None noted per EMR review. CM following and available to assist with discharge planning needs as they arise, or if patient/family/MD request a CM consult. 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 He was transferred to [facility] by ground dueto being stable and went to IR for embolization, however there was no active bleeding visualized during IR thus there was no intervention. Unfortunately during the IR procedure his ARA was iatrogenically dissected. Flow through the ARA limited although remained patent with patent SMA collaterals. Hospital LOS: 1 INTERVAL HISTORY Recurrent BRBPR overnight with downtrending Hgb and hemodynamic instability requiring 2 vasopressors. Afebrile MAIN PROBLEMS 1. Lower GIB / hemorraghic shock / acute blood loss anemia - discussed with IR and Gastroenterology this morning with plan to complete prep for colonoscopy this afternoon - transfuse 1 PRBC given hemodynamic instability - wean vasopressors for MAP>65 - trend Hgb q6h and transfuse if <7.0 or if increasing pressor requirements - repeat INR and administer FFP if needed - no AC or antiplatelets - discontinue CTx and flagyl given no source of infection noted on CT imaging and shock likely related to bleeding 2. Atrial fibrillation / pericardial effusion / murmur - hold anticoagulation due to #1 - obtain ECHO 3. Type 2 diabetes - ISS q4h while inpatient 4. IVETTE - likely due to hemorraghic shock and contrast administration - hourly I/O - avoid nephrotoxins - maintain MAP>65 for adequate renal perfusion - BMP daily Rest by Organ System: 1. ID - no abx. Leukocytosis likely related to GIB and known CLL 2. Cardiovascular - as above 3. Pulmonary - no acute issues 4. Renal - I/O. BMP daily 5. GI - as above 6. Endocrine - ISS 7. Heme - as above 8. Neuro - no acute issues 9. Electrolytes - replace prn Note and assessment/ plan discussed with Irrigator [employer] Dr. Jones Critical care: 45 minutes Patient is critically ill due to hemorraghic shock ICU Prophylaxis: VTE Prophylaxis: SCDs GI Prophylaxis: protonix Nutrition: NPO Lines: PIVs Restraints: Not Applicable SUBJECTIVE Denies chest pain, SOB, abdominal pain, N/V OBJECTIVE Temp Av.9 ??C (98.4 ??F) Min: 36.7 ??C (98.1 ??F) Max: 37.2 ??C (99 ??F) Pulse Av Min: 50 Max: 95 BP Min: 65/47 Max: 148/64 Resp Av.3 Min: 14 Max: 26 SpO2 Av.1 % Min: 89 % Max: 98 % Intake/Output Summary (Last 24 hours) at 03/23/2022 0839 Last data filed at 03/23/2022 0700 Gross per 24 hour Intake 1394 ml Output 950 ml Net 444 ml Last 3 Weights 03/22/22 1430 03/23/22 0429 Weight: 90.2 kg (198 lb 13.7 oz) 88.9 kg (195 lb 15.8 oz) Initial Weight: 90.2 kg (198 lb 13.7 oz) Exam: GEN - pleasant male, pale, not distressed HEENT - dry, pale mucous membranes NECK - supple CHEST - clear bilaterally CV - RRR. Murmur ABD - soft, NTND. +BS EXT - no edema SKIN - no rashes or lesions NEURO - no focal deficits Lab results: IVETTE Leukocytosis Acute blood loss anemia Mere Ewing APRN, CNP Critical Care Medicine Antony Harrison RN - 03/23/2022 1:10 AM CDT Documentation during the repeated hour of the change to Central Standard Time: 0100 (second) Vital Signs Heart Rate: 72 Respirations: 24 Blood Pressure: 103/47 (62) SpO2: 91 Oxygen Flow Rate: 0 Documentation during the repeated hour of the change to Central Standard Time: 0115 (second) Vital Signs Heart Rate: 73 Respirations: 22 Blood Pressure: 127/47 (68) SpO2: 92 Oxygen Flow Rate: 0 Documentation during the repeated hour of the change to Central Standard Time: 0130 (second) Vital Signs Heart Rate: 75 Respirations: 22 Blood Pressure: 112/48 (68) SpO2: 92 Oxygen Flow Rate: 0 Documentation during the repeated hour of the change to Central Standard Time: 0145 (second) Vital Signs Heart Rate: 73 Respirations: 22 Blood Pressure: 125/56 (77) SpO2: 93 Oxygen Flow Rate: 0 Antony Sherman RN Antony Harrison RN - 03/22/2022 11:13 PM CDT 1900: Noted hypotension during bedside report. Recycled blood pressure improved, within ordered limits. 2099: Continued hypotension. Provider notified. 250 mL bolus LR ordered with 1 L LR running at 75mL/hr to follow. 2199: Continued hypotension, provider notified. Levophed ordered. 2299: Continued hypotension, provider notified. Vaso ordered. HGB and lactic labs drawn. 0015: Bloody stool, provider notified. 0520: WBC critical at 78.1. Provider notified, blood cultures drawn, anti- infectives ordered and started. Antony Sherman RN 03/23/2022 7:01 AM GE LOADER Franchesca Leo RN - 03/22/2022 2:30 PM CDT To 451 per cart with air medical transport staff. Alert, oriented x4. Upon arrivlal had episode of moderate amount of lower GI bleed. VSS. Discussed plan. Oriented to room and discussed use of call light system. Verbalized understanding. Four eyes on skin completed with HOLLY Oliva RN. Scattered mild bruising noted to bilateral UEs. Small skin tear noted to (L) buttock. Picture obtained. See media tab. documented in this encounter H&P Notes Yair Jones MD - 03/22/2022 3:05 PM CDT INTERVENTIONAL RADIOLOGY CC: GI bleed HPI: Kristofer Mcmullen is a(n) 86 year old who is a patient of No primary care provider on file. Emergent transfer in the setting of active GI bleeding. Evaluated by Dr. Johnson upon arrival and foundto be hemodynamically stable. CT shows active bleeding at descending colon/sigmoid junction. Patienton jose. History of colon resection. There is no problem list on file for this patient. No past medical history on file. No past surgical history on file. No outpatient medications have been marked as taking for the 03/22/22 encounter (Hospital Encounter). Not on File No family history on file. Social History Occupational History ??? Not on file Tobacco Use ??? Smoking status: Not on file ??? Smokeless tobacco: Not on file Substance and Sexual Activity ??? Alcohol use: Not on file ??? Drug use: Not on file ??? Sexual activity: Not on file ROS: Pertinent items are noted above. PE: Vitals: 03/22/22 1430 BP: 135/74 Pulse: 81 Temp: 36.7 ??C (98.1 ??F) TempSrc: Oral Resp: 14 SpO2: (!) 89% Exam today: Gen: no distress CV: RRR Lungs: CTAB Neuro: AAO x3 Recent Results (from the past 12 hour(s)) COMPREHENSIVE METABOLIC PANEL Result Value Ref Range Sodium 142 134 - 143 mEq/L Potassium 4.5 3.4 - 5.1 mEq/L Chloride 114 (H) 99 - 110 mEq/L Carbon Dioxide 19 19 - 29 mEq/L Anion Gap 9.0 3.0 - 15.0 mEq/L Blood Urea Nitrogen 26 (H) 5 - 24 mg/dL Creatinine 0.98 0.70 - 1.20 mg/dL Glomerular Filtration Rate 75 >60 mL/min/1.73 m*2 Calcium 8.3 (L) 8.4 - 10.5 mg/dL Glucose 208 (H) 70 - 99 mg/dL Protein, Total 5.0 (L) 6.0 - 8.0 g/dL Albumin 2.9 (L) 3.5 - 5.0 g/dL Alkaline Phosphatase 81 40 - 150 IU/L Aspartate Aminotransferase 16 10 - 40 IU/L Alanine Aminotransferase 13 6 - 40 IU/L Bilirubin, Total 0.5 0.2 - 1.2 mg/dL Narrative Current ADA criteria for Glucose: Normal: 70-99 mg/dL Impaired Fasting Glucose: 100-125 mg/dL Diabetes Mellitus: at or above 126 mg/dL The diagnosis of diabetes must be confirmed on a subsequent day by measuring Fasting Plasma Glucose,2-hr PG or random plasma glucose (if symptoms are present). MAGNESIUM Result Value Ref Range Magnesium 1.7 (L) 1.8 - 2.7 mg/dL PHOSPHORUS Result Value Ref Range Phosphorus 3.2 2.5 - 4.6 mg/dL LACTIC ACID, VENOUS Result Value Ref Range Lactic Acid, Venous 1.0 0.5 - 2.0 mmol/L TROPONIN I Result Value Ref Range Troponin I 0.020 0.000 - 0.028 ng/mL Narrative Because no pediatric reference range data is published, the adult reference range will be utilized as this represents 99% of healthy adults. PROTIME Result Value Ref Range INR 1.3 (H) 0.9 - 1.1 Protime 15.6 (H) 12.0 - 14.1 sec Narrative Suggested therapeutic INR ranges for oral anticoagulant therapy: Category INR Value Prophylaxis 2.0-3.0 Treat Thrombosis or Embolism 2.0-3.0 Prosthetic Heart Valve 2.5-3.5 Rad: outside CT abd/pelvis reviewed, showing intraluminal contrast at descending colon/sigmoid junction. Evidence of prior sigmoid resection. 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 He was transferred to [facility] by ground due to being stable and went to IR for embolization, however there was no active bleeding, thus there was no intervention. Unfortunately during the IR procedure his ARA was iatrogenically dissected. Flow through the ARA limited although remained patent with patent SMA collaterals. We are consulted due to persistent hypotension requiring levophed. Hgb 10 --> 9 --> 8. He received 1 unit of blood this AM. Golytely prep ordered at 0800. Eliquis is on hold, he received Kcentra yesterday. 2 daughters at bedside. Review Of Systems: Constitutional: no weight loss, fever, night sweats Respiratory: no cough or shortness of breath Cardiovascular: no chest pains or palpitations Gastrointestinal: as per HPI Genitourinary: no change in urination or blood in urine All other systems have been reported as negative PMH: No past medical history on file. PSH: No past surgical history on file. FH: No family history on file. SH: Social History Socioeconomic History ??? Marital status: Unknown Spouse name: Not on file ??? Number of children: Not on file ??? Years of education: Not on file ??? Highest education level: Not on file Occupational History ??? Not on file Tobacco Use ??? Smoking status: Former Packs/day: 0.50 Years: 30.00 Pack years: 15.00 Types: Cigarettes Start date: 1952 Quit date: 1982 Years since quittin.8 ??? Smokeless tobacco: Never Vaping Use ??? Vaping Use: Never used Substance and Sexual Activity ??? Alcohol use: Not on file ??? Drug use: Defer ??? Sexual activity: Defer Other Topics Concern ??? Not on file Social History Narrative ??? Not on file Social Determinants of Health Financial Resource Strain: Not on file Food Insecurity: Not on file Transportation Needs: Not on file Physical Activity: Not on file Stress: Not on file Social Connections: Not on file Intimate Partner Violence: Not on file Housing Stability: Not on file Meds: Prior to Admission medications Medication Sig Start Date End Date Taking? Authorizing Provider apixaban (Eliquis) 5 MG tablet Take 5 mg by mouth two times a day. Yes Abstract, ProviderMD empagliflozin (Jardiance) 25 MG Tablet Take 25 mg by mouth one time a day. Do not chew or crush. YesAbstract, ProviderMD spironolactone (Aldactone) 25 MG tablet Take 25 mg by mouth one time a day. Yes Abstract, ProviderMD carvedilol (Coreg) 25 MG tablet Take 25 mg by mouth two times a day with meals. Yes Abstract, ProviderMD valsartan (Diovan) 320 MG tablet Take 320 mg by mouth one time a day. Yes Abstract, ProviderMD omeprazole (PriLOSEC) 20 MG delayed-release capsule Take 20 mg by mouth one time a day. Take before meals. Do not crush. Yes Abstract, ProviderMD atorvaSTATin (Lipitor) 20 MG tablet Take 20 mg by mouth one time a day. Yes Abstract, ProviderMD Allergies: No Known Allergies Physical Exam Vitals: Patient Vitals for the past 8 hrs: Temp Temp src Pulse BP Resp SpO2 03/23/22 1115 -- -- 65 (!) 126/38 14 95 % 03/23/22 1100 -- -- 65 (!) 143/40 21 96 % 03/23/22 1045 -- Oral 65 130/59 22 95 % 03/23/22 1030 -- -- 65 (!) 147/49 14 97 % 03/23/22 1015 -- -- 60 125/88 20 96 % 03/23/22 1000 -- -- 71 (!) 158/44 23 95 % 03/23/22 0945 -- -- 59 (!) 139/35 24 96 % 03/23/22 0930 -- -- 69 (!) 137/35 20 92 % 03/23/22 0915 -- -- 63 (!) 124/37 22 94 % 03/23/22 0900 -- -- 62 (!) 129/44 21 94 % 03/23/22 0845 -- -- 67 (!) 131/37 19 94 % 03/23/22 0830 -- -- 64 (!) 120/39 20 94 % 03/23/22 0828 36.8 ??C (98.2 ??F) Oral 67 -- 21 -- 03/23/22 0815 -- -- 69 (!) 143/43 22 95 % 03/23/22 0800 36.9 ??C (98.4 ??F) Oral 70 (!) 129/38 24 94 % 03/23/22 0700 -- -- 58 (!) 65/47 20 92 % 03/23/22 0647 -- -- 67 (!) 132/37 20 93 % 03/23/22 0645 -- -- 63 (!) 116/40 22 93 % 03/23/22 0630 -- -- 64 (!) 117/42 23 93 % 03/23/22 0615 -- -- 68 (!) 138/42 20 94 % 03/23/22 0600 -- -- 61 (!) 127/42 23 94 % 03/23/22 0545 -- -- 71 (!) 144/51 18 96 % 03/23/22 0540 -- -- 71 (!) 131/44 24 96 % 03/23/22 0530 -- -- (!) 50 (!) 104/34 21 91 % 03/23/22 0515 -- -- 58 (!) 110/38 22 93 % 03/23/22 0500 -- -- 65 (!) 124/40 22 95 % 03/23/22 0445 -- -- 61 (!) 101/41 21 90 % 03/23/22 0430 -- -- 65 (!) 121/46 24 92 % 03/23/22 0415 -- -- 65 (!) 120/43 20 92 % 03/23/22 0400 -- -- 64 (!) 126/41 22 93 % Constitutional: Pt is alert and oriented to person, place, and time. HEENT: Normocephalic and atraumatic. Pupils are equal, round, and reactive. Oral mucosa is moist andwithout evidence of thrush. Cardiovascular: Normal rate, regular rhythm. Pulmonary/Chest: Effort normal and breath sounds normal. No respiratory distress. Abdominal: Soft. Non-tender. Non-distended. No ascites. Musculoskeletal: No edema, cyanosis or clubbing. Neurological: No gross motor deficits. LABS: Recent Results (from the past 12 hour(s)) BASIC METABOLIC PANEL Result Value Ref Range Sodium 143 134 - 143 mEq/L Potassium 4.6 3.4 - 5.1 mEq/L Chloride 115 (H) 99 - 110 mEq/L Carbon Dioxide 15 (L) 19 - 29 mEq/L Anion Gap 13.0 3.0 - 15.0 mEq/L Blood Urea Nitrogen 32 (H) 5 - 24 mg/dL Creatinine 1.27 (H) 0.70 - 1.20 mg/dL Glomerular Filtration Rate 55 (L) >60 mL/min/1.73 m*2 Calcium 8.2 (L) 8.4 - 10.5 mg/dL Glucose 184 (H) 70 - 99 mg/dL Narrative Current ADA criteria for Glucose: Normal: 70-99 mg/dL Impaired Fasting Glucose: 100-125 mg/dL Diabetes Mellitus: at or above 126 mg/dL The diagnosis of diabetes must be confirmed on a subsequent day by measuring Fasting Plasma Glucose,2-hr PG or random plasma glucose (if symptoms are present). MAGNESIUM Result Value Ref Range Magnesium 1.8 1.8 - 2.7 mg/dL PHOSPHORUS Result Value Ref Range Phosphorus 4.4 2.5 - 4.6 mg/dL WHITE BLOOD COUNT Result Value Ref Range WBC 78.1 (HH) 3.2 - 11.0 10*9/L PLATELET COUNT Result Value Ref Range PLT 188 130 - 375 10*9/L HEMOGLOBIN Result Value Ref Range HGB 8.1 (L) 12.9 - 16.9 g/dL PROCALCITONIN, BLOOD Result Value Ref Range Procalcitonin 0.06 <0.50 ng/mL Narrative Procalcitonin Interpretation Guidelines: Diagnosis of systemic bacterial infection/sepsis and/or septic shock: < 0.50 ng/mL Low risk for sepsis; localized bacterial infection possible 0.50 - 2.00 ng/mL Sepsis is possible; Interpret in context of specific clinical background and condition of the patient - recommend retesting Procalcitonin within 6 - 24 hours > 2.00 ng/mL High risk for sepsis and/or septic shock Diagnosis of lower respiratory tract infection: < 0.10 ng/mL Bacterial infection very unlikely 0.10 - 0.25 ng/mL Bacterial infection unlikely 0.26 - 0.50 ng/mL Bacterial infection likely > 0.50 ng/mL Bacterial infection very likely Procalcitonin levels must be interpreted in the context of all laboratory findings and the total clinical status of the patient. GLUCOSE, METER Result Value Ref Range Glucose Meter 165 (H) 70 - 99 mg/dL URINALYSIS, REFLEX TO MICROSCOPIC Result Value Ref Range Urine Color Yellow Straw, Yellow, Nicki Urine Appearance Clear Clear Urine Specific [place] 1.015 1.003 - 1.035 Urine pH 5.5 5.0 - 8.0 Urine Glucose 500 (A) Negative Urine Ketones 80 (A) Negative Urine Protein Negative Negative, Trace mg/dL Urine Nitrites Negative Negative Urine Leukocyte Esterase Negative Negative Narrative A routine urine not reflexing to a microscopic exam automatically means the dipstick blood test is negative. HEMOGLOBIN Result Value Ref Range HGB 8.0 (L) 12.9 - 16.9 g/dL ASSESSMENT/PLAN: Date of Admission: 03/22/2022 LOS: 1 day (Length of Stay) Hospital Day: 2 Patient is a 86 year old male with: // BRBPR and hypotension on levophed - will plan to perform colonoscopy today with possible interventions once he has completed the prep and once stools are more clear - continue to monitor H/H and vitals and transfuse as needed - the indications, risks, benefits and alternatives of the endoscopic procedure were discussed. Risks discussed include (but are not limited to): bleeding, infection, perforation and need for emergencysurgery as well as anesthetic, cardiac and pulmonary complications. The risk of not having the procedure was also reviewed. The patient voices understanding and all questions and concerns addressed andthe patient wishes to proceed with colonoscopy today - if any polyps are removed/biopsies obtained, I will mail the patient a letter with pathology results (see letter section in Epic) stating when a repeat surveillance colonoscopy is recommended and/or treatment reccs Dr. Kamlesh Prieto [address] Gastroenterology Willam Hooks - 03/23/2022 10:18 AM CSTAssociated Order(s): PHARMACIST MEDICATION RECONCILIATION SLATE CUTTER OPERATOR Medication History obtained by: Willam Gallegos Home medication list updated using: Patient [facility] fill hx Spoke with the patient? Yes Number of medications removed from profile: 0 Number of medications added to profile: 7 Name of medications added: All medications Number of medications adjusted on profile: 0 Number of High alert medications added, removed, or adjusted: 2 High alert medications added, removed, or adjusted during medication history: Oral hypoglycemic agent and Anticoagulant Number of minutes for this reconciliation: 15 Recommendations/other information: Prior to Admission Medications Prescriptions Last Dose Informant Patient Reported? Taking? apixaban (Eliquis) 5 MG tablet 03/22/2022 at am Patient Yes Yes Sig: Take 5 mg by mouth two times a day. atorvaSTATin (Lipitor) 20 MG tablet Past Week Retail Pharmacy Yes Yes Sig: Take 20 mg by mouth one time a day. carvedilol (Coreg) 25 MG tablet Past Week Retail Pharmacy Yes Yes Sig: Take 25 mg by mouth two times a day with meals. empagliflozin (Jardiance) 25 MG Tablet 03/22/2022 at am Patient Yes Yes Sig: Take 25 mg by mouth one time a day. Do not chew or crush. omeprazole (PriLOSEC) 20 MG delayed-release capsule Past Week Retail Pharmacy Yes Yes Sig: Take 20 mg by mouth one time a day. Take before meals. Do not crush. spironolactone (Aldactone) 25 MG tablet Past Week Retail Pharmacy Yes Yes Sig: Take 25 mg by mouth one time a day. valsartan (Diovan) 320 MG tablet Past Week Retail Pharmacy Yes Yes Sig: Take 320 mg by mouth one time a day. Facility-Administered Medications: None If questions arise, please call the central pharmacy. Thank you, Willam Gallegos 03/23/2022, 10:18 AM GE LOADER Yair Jones MD - 03/22/2022 4:21 PM CDTAssociated Order(s): 32H IP CONSULT TO INTERVENTIONAL RADIOLOGIST OPERATIVE PROCEDURE PROGRESS NOTE BRIEF POST-OP NOTE Pre-Op Diagnosis: GI bleed Post-Op Diagnosis: same Procedure(s): Mesenteric angiogram Anesthesia Type: Local anesthesia with sedation Findings: Selective SMA and ARA angiography shows no contrast extravasation. No embolization performed. Angioseal, right PHARMACY INFORMATICS MANAGER. Surgeon(s) and Role: * Yair Jones MD - Primary Estimated Blood Loss: Less than 50 ml Drains: None Specimen(s): No Specimens Collected Complications: iatrogenic proximal ARA dissection- flow limiting though remains patent and SMA collaterals intact Disposition: ICU See dictated operative report for full details. Implant(s): * No implants in log * Yair Laird. MD Karen documented in this encounter Miscellaneous Notes Care Plan - Nathan Peacock RN - 03/25/2022 2:04 AM CST Patient Goals: The patient centered goal for this shift:: stable Hgb (03/24/22 0800). Evaluation of patient goal progress appears to be slowly dropping. Problem: Cardiac/Cardiovascular Goal: Cardiovascular system functioning within defined limits Outcome: Progressing Flowsheets (Taken 03/24/2022 8383) Cardiac Care Plan: ??? Monitor vital signs, rhythm, and trends ??? Monitor for bleeding ??? Monitor for hypotension and signs of decreased cardiac output ??? Body weight monitoring ??? Assess quality of pulses, skin color/temperature, and capillary refill time ??? Assess for signs of decreased coronary artery perfusion ??? Monitor for electrolyte abnormalities ??? Intake and output measurement Note: HR increase overnight to 110s-120s and SBP 160s w/ minor chest ache, EKG ST w/ RBBB, L anterior fascicular block, placed in chart. 25mg metoprolol given per MD with return of HR to 50s-80s and BPWDL. Problem: Gastrointestinal Goal: Gastrointestinal functioning within defined limits Outcome: Progressing Flowsheets (Taken 03/24/20225) Gastrointestinal Care Plan: ??? Monitor percentage of each meal consumed ??? Assist with meals as needed ? ? Monitor I&O, WT and lab values Note: No BM overnight. Passing gas. Problem: Genitourinary Goal: Genitourinary system functioning within defined limits Outcome: Progressing Flowsheets (Taken 03/24/20225) Genitourinary Care Plan: ??? Monitor intake/output and perform bladder scan as needed ??? Monitor urine characteristics Note: Increased urine frequency overnight, urine almost colorless. GE LOADER Care Plan - Antony Sherman RN - 03/24/2022 6:55 AM CST Patient Goals: The patient centered goal for this shift:: No bloody stools (03/23/222100). Evaluation of patient goal progress: met. Any goals not addressed individually are progressing as expected without changes in interventions. GE LOADER Brief Op Note - Kamlesh Prieto DO - 03/23/2022 6:50 PM CST OPERATIVE PROCEDURE PROGRESS NOTE BRIEF POST-OP NOTE Pre-Op Diagnosis: Hemorrhagic shock (HCC) [R57.8] BRBPR (bright red blood per rectum) [K62.5] Post-Op Diagnosis: Diverticulum with one blood clot Procedure(s): COLONOSCOPY DIAGNOSTIC Anesthesia Type: MAC Findings: Findings: ?The terminal ileum appeared normal. ?Multiple medium-mouthed diverticula were found in the ?sigmoid colon. ?A single medium-mouthed diverticulum was found in the ?sigmoid colon with a red clot inside of it and a ?likely cause of recent bleeding. To prevent ?re-bleeding, two hemostatic clips were successfully ?placed (MR conditional). A 3rd clip was deployed but ?did not attach and will pass out on it's own. ?Internal hemorrhoids were found during retroflexion. ?The hemorrhoids were small and Grade I (internal ?hemorrhoids that do not prolapse). Recommendation: ?- Continue present medications. ?- No repeat screening colonoscopy due to age. ?- Clear liquid diet today. ?- Continue to monitor closely for any further evidence ?of re-bleeding. Surgeon(s) and Role: * Kamlesh Prieto DO - Primary Estimated Blood Loss: Less than 50 ml Drains: None Specimen(s): No Specimens Collected Complications: none noted Disposition: ICU See dictated operative report for full details. Implant(s): Implant Name Type Inv. Item Serial No. Budget And Policy Analyst Lot No. [id number] No. Used Action CLIP HEMOSTASIS INSTINCT PLUS DISP [id number] - [id number] CLIP HEMOSTASIS INSTINCT PLUS DISP [id number] N/ACOOK [id number] N/A 2 Implanted Kamlesh Prieto DO GE LOADER Care Plan - Franchesca Leo RN - 03/23/2022 6:11 PM CST Patient Goals: The patient centered goal for this shift:: complete colonoscopy (03/23/22 0800). Evaluation of patient goal progress: Down to endoscopy for procedure at 1800. Problem: Gastrointestinal Goal: Gastrointestinal functioning within defined limits Outcome: Progressing Experiencing episodes of bowel incontinence with dark red blood per rectum this morning. Bowel prep completed at 1400 for planned colonoscopy. No bright red stools observed. One unit PRBCs transfused this morning. Norepinephrine and vasopressin infusions weaned to off this morning. Discussed treatmentplan with patient throughout day. Anxious at times, providing reassurance throughout day. GE LOADER External Patient Instuctions - Kamlesh Prieto DO - 03/23/2022 5:44 PM CST COLONOSCOPY Discharge Instructions Patient: Kristofer Garcia Procedure Date: Wednesday, March 23, 2022 Attending MD: KAMLESH PRIETO DO If you received any sedation medications, they will remain in your system for 24 hours. You may experience light headedness, dizziness, and sleepiness. Alcohol and illicit or non-prescription drug use could cause serious side effects. Activity DO NOT drive a car or operate machinery until tomorrow. DO NOT drink alcohol for at least 24 hours following the procedure. DO NOT work or make important personal, business, or legal decisions for 24 hours. Allow yourself to rest today. Return to usual activity tomorrow unless instructed otherwise. Diet Resume diet as tolerated. Other Instructions - Mild gaseous discomfort is normal and expected. Passing gas or belching is encouraged. - It is normal to not have a bowel movement for 1-3 days because of the colonoscopy prep. - You may develop a lump or redness at the IV site where your sedation was given. Apply a warm compress to the area. Call in 24 hours if this has not improved. Call [phone] or go to the Emergency Room if you develop any of the following: - Severe abdominal or chest pain - Persistent vomiting or vomiting with blood - Black, tarry stools or red blood per rectum - Chills and/or fever of 101.5 or above Your doctor recommends these additional instructions: None If you have any problems, you may contact your physician at [facility] . Kamlesh Prieto MD KAMLESH PRIETO DO 03/23/2022 6:50:16 PM This report has been signed electronically. GE LOADER Admission - Yoko Johnson MD - 03/22/2022 2:45 PM CDT Critical Care Admission Note Yoko Johnson MD 03/22/2022 History of present illness 86-year-old male transferred to [facility] ICU in [place] from [facility] where he presentedearlier today while on his hunting trip with multiple episodes of lower GI bleed. In the emergency room patient experienced additional 2 episodes of bleeding with kristofer blood per rectum amounting to approximately 400 cc as estimated by the ER physician. Patient received Kcentra given the fact that he is on Eliquis and he took his last dose this morning. CT angiogram showed active extravasation of contrast in sigmoid colon. Given hemodynamic stability, patient was transferred by ground to [facility] ICU in [place]. Past medical history Type 2 diabetes on oral medication. Stable CLL on no chemotherapy just surveillance according to patient Hypertension on 3 antihypertensives History of diverticulitis, s/p surgery 15 years ago Remote history of gallbladder surgery A. 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 Former smoker from the age of 16 until 42 Family History Noncontributory Allergies NKA Review of systems Other than painless bloody bowel movements patient has no complaints. All other systems were reviewed and are negative. OBJECTIVE Temp Av.7 ??C (98.1 ??F) Min: 36.7 ??C (98.1 ??F) Max: 36.7 ??C (98.1 ??F) Pulse Av Min: 81 Max: 81 BP Min: 135/74 Max: 135/74 Resp Av Min: 14 Max: 14 SpO2 Av % Min: 89 % Max: 89 % No intake or output data in the 24 hours ending 03/22/22 1445 There were no vitals filed for this visit. Initial GEN:Nondistressed HEENT: No cervical adenopathy NEURO: Exam is nonfocal CV : Regular with no murmurs PULM : Clear to auscultation ABD : Abdomen is benign Well-healed midline abdominal scar EXT : there is no lower ext edema SKIN : no rashes ASSESSMENT AND PLAN 86-year-old male with acute blood loss anemia resulting from upper GI bleed with a active extravasation of contrast noted on CTA from sigmoid colon. Admitted to [facility] ICU in [place] 03/22. Problem list and current medical management Acute blood loss anemia LGIB Start hemoglobin level, type and screen. Patient hemodynamically stable, blood pressure 130/70. Patient nondistressed. Discussed with interventional radiology. Consultation placed for embolization Cardiovascular : Patient with history of hypertension. On outpatient antihypertensives. Will consult pharmacy for medication reconciliation Pulmonary : On room air, maintaining airway, no issues GI : N.p.o. Renal : Maintain spontaneous urine output. No need for Sommers at this point I/O ID : No indication for antibiotics Neuro : No issues Endocrine : Patient at home on oral antiglycemic. For now, ISS Heme : Hemoglobin every 8 hours. Stat hemoglobin and type and screen now Electrolytes : Check chemistry GI prophylaxis : No indication for stress ulcer prophylaxis in the setting of a lower GI bleed DVT Prophylaxis: No pharmacologic DVT prophylaxis in the setting of bleed. SCDs Lines / Sommers : Peripheral IVs Activity : As tolerated Critical Care: 30 Minutes This patient is critically ill due to acute blood loss anemia, lower GI bleed Yoko Johnson MD, [facility] Pulmonology and Critical Care documented in this encounter Plan of Treatment Pending Results Name Type Priority Associated Diagnoses Date/Ti me CULTURE, BLOOD Microbiology Routine 03/23/2022 5: 50 AM BACTERIAL CHARGE LOADER CULTURE, BLOOD Microbiology Routine 03/23/2022 5: 58 AM BACTERIAL CHARGE LOADER Scheduled Referrals Name Type Priority Associated Diagnoses Order S chedule IP DISCHARGE FOLLOW-UP REFERRAL Routine Hospital discharge Ordered: 03/24/2022 APPOINTMENTS follow-up documented as of this encounter Procedures Procedure Name Priority Date/Time Associated Comments Diagnosis GLUCOSE, METER Routine 03/25/2022 12:30 Results f or this PM CHARGE LOADER procedure are i n the results section. GLUCOSE, METER Routine 03/25/2022 7:47 AM Results for this CHARGE LOADER procedure are i n the results section. BASIC METABOLIC PANEL Routine 03/25/2022 4:04 AM Results for this CHARGE LOADER procedure are i n the results section. HEMOGLOBIN Timed 03/25/2022 4:04 AM Results f or this CHARGE LOADER procedure are i n the results section. WHITE BLOOD COUNT Routine 03/25/2022 4:04 AM Resu lts for this CHARGE LOADER procedure are i n the results section. MAGNESIUM Routine 03/25/2022 4:04 AM Results f or this CHARGE LOADER procedure are i n the results section. PHOSPHORUS Routine 03/25/2022 4:04 AM Results f or this CHARGE LOADER procedure are i n the results section. PLATELET COUNT Routine 03/25/2022 4:04 AM Results for this CHARGE LOADER procedure are i n the results section. EKG 12-LEAD Routine 03/25/2022 12:49 Results for this AM CHARGE LOADER procedure are i n the results section. GLUCOSE, METER Routine 03/24/2022 10:07 Results f or this PM CHARGE LOADER procedure are i n the results section. HEMOGLOBIN Timed 03/24/2022 8:02 PM Results f or this CHARGE LOADER procedure are i n the results section. GLUCOSE, METER Routine 03/24/2022 5:08 PM Results for this CHARGE LOADER procedure are i n the results section. HEMOGLOBIN Timed 03/24/2022 12:08 Results for this PM CHARGE LOADER procedure are i n the results section. GLUCOSE, METER Routine 03/24/2022 11:47 Results f or this AM CHARGE LOADER procedure are i n the results section. HEMOGLOBIN Timed 03/24/2022 5:48 AM Results f or this CHARGE LOADER procedure are i n the results section. WHITE BLOOD COUNT Routine 03/24/2022 5:48 AM Resu lts for this CHARGE LOADER procedure are i n the results section. PLATELET COUNT Routine 03/24/2022 5:48 AM Results for this CHARGE LOADER procedure are i n the results section. BASIC METABOLIC PANEL Routine 03/24/2022 3:01 AM Results for this CHARGE LOADER procedure are i n the results section. MAGNESIUM Routine 03/24/2022 3:01 AM Results f or this CHARGE LOADER procedure are i n the results section. PHOSPHORUS Routine 03/24/2022 3:01 AM Results f or this CHARGE LOADER procedure are i n the results section. HEMOGLOBIN Timed 03/23/2022 11:38 Results for this PM CHARGE LOADER procedure are i n the results section. GLUCOSE, METER Routine 03/23/2022 11:38 Results f or this PM CHARGE LOADER procedure are i n the results section. COLONOSCOPY DIAGNOSTIC 03/23/2022 6:09 PM Hemorrhagic shock CHARGE LOADER (HCC) BRBPR (bright red blood per rectum) HEMOGLOBIN Timed 03/23/2022 5:45 PM Results f or this CHARGE LOADER procedure are i n the results section. GLUCOSE, METER Routine 03/23/2022 5:45 PM Results for this CHARGE LOADER procedure are i n the results section. COLONOSCOPY PROCEDURE 03/23/2022 5:44 PM Hemorrhagic s hock Results for this CHARGE LOADER (HCC) procedure are i n the results section. ADMIT MRSA, MOLECULAR Routine 03/23/2022 1:48 PM Results for this DETECTION CHARGE LOADER procedure are i n the results section. ECHO ADULT COMPLETE W Routine 03/23/2022 12:26 Re sults for this CONTRAST PM CHARGE LOADER procedure are i n the results section. RAPID SARS-COV-2 RNA Routine 03/23/2022 12:11 Res ults for this (COVID-19), MOLECULAR PM CHARGE LOADER proced ure are in DETECTION the results section. PROTIME Routine 03/23/2022 12:11 Results for this PM CHARGE LOADER procedure are i n the results section. HEMOGLOBIN Timed 03/23/2022 12:11 Results for this PM CHARGE LOADER procedure are i n the results section. GLUCOSE, METER Routine 03/23/2022 12:10 Results f or this PM CHARGE LOADER procedure are i n the results section. TRANSFUSE RED BLOOD Routine 03/23/2022 8:20 AM CELLS CHARGE LOADER HEMOGLOBIN Timed 03/23/2022 7:53 AM Results f or this CHARGE LOADER procedure are i n the results section. URINALYSIS, REFLEX TO Routine 03/23/2022 6:07 AM Results for this MICROSCOPIC CHARGE LOADER procedure are i n the results section. CULTURE, BLOOD Routine 03/23/2022 5:58 AM BACTERIAL CHARGE LOADER CULTURE, BLOOD Routine 03/23/2022 5:50 AM BACTERIAL CHARGE LOADER GLUCOSE, METER Routine 03/23/2022 5:44 AM Results for this CHARGE LOADER procedure are i n the results section. PROCALCITONIN, BLOOD Add on 03/23/2022 4:57 AM R esults for this CHARGE LOADER procedure are i n the results section. BASIC METABOLIC PANEL Routine 03/23/2022 4:57 AM Results for this CHARGE LOADER procedure are i n the results section. HEMOGLOBIN Timed 03/23/2022 4:57 AM Results f or this CHARGE LOADER procedure are i n the results section. WHITE BLOOD COUNT Routine 03/23/2022 4:57 AM Resu lts for this CHARGE LOADER procedure are i n the results section. MAGNESIUM Routine 03/23/2022 4:57 AM Results f or this CHARGE LOADER procedure are i n the results section. PHOSPHORUS Routine 03/23/2022 4:57 AM Results f or this CHARGE LOADER procedure are i n the results section. PLATELET COUNT Routine 03/23/2022 4:57 AM Results for this CHARGE LOADER procedure are i n the results section. [...] are i n the results section. IR VISCERAL ANGIOGRAM Routine 03/22/2022 4:26 PM Results for this CDT procedure are i n the results section. IR ANGIOGRAM SELECTIVE Routine 03/22/2022 4:26 PM Results for this EACH ADDL VESSEL CDT procedure a re in the results section. US GUIDE VASCULAR Routine 03/22/2022 4:18 PM Resu lts for this ACCESS WITH CDT procedure are i n RADIOLOGIST the results section. IX UNLISTED 03/22/2022 3:13 PM GI bleed CDT TYPE AND SCREEN STAT 03/22/2022 2:28 PM Result s for this CDT procedure are i n the results section. RED BLOOD CELLS Timed 03/22/2022 2:28 PM Hemorrhagic shock R esults for this CDT (HCC) procedure are i n the results section. COMPREHENSIVE Routine 03/22/2022 2:28 PM Results for this METABOLIC PANEL CDT procedure ar e in the results section. TROPONIN I Routine 03/22/2022 2:28 PM Results f or this CDT procedure are i n the results section. HEMOGRAM STAT 03/22/2022 2:28 [...] procedure are i n the results section. documented in this encounter Results (ABNORMAL) GLUCOSE, METER (03/25/2022 12:30 PM CHARGE LOADER) athologist Signature Glucose Meter 179 (H) 70 - 99 03/25/2022 [facility] mg/dL 12:37 PM CHARGE LOADER [facility] POINT OF CARE Specimen Anatomical Collection Method Collection Time Receive d Time (Source) Location / / Volume Laterality Blood BLOOD SPECIMEN / 03/25/2022 12:30 022 Unknown PM CHARGE LOADER 12:37 PM CHARGE LOADER Agustin Palacio MD EC CHEMISTRY ORDERABLES Performing Organization Address City/State/ZIP Code Phon e Number [facility] POINT OF CARE [address] [facility] [place] [phone] (ABNORMAL) GLUCOSE, METER (03/25/2022 7:47 AM CHARGE LOADER) athologist Signature Glucose Meter 223 (H) 70 - 99 03/25/2022 [facility] mg/dL 7:54 AM CHARGE LOADER [facility] POINT OF CARE Specimen Anatomical Collection Method Collection Time Receive d Time (Source) Location / / Volume Laterality Blood BLOOD SPECIMEN / 03/25/2022 7:47 AM 03/25 7:54 Unknown CHARGE LOADER AM CHARGE LOADER Agustin Palacio MD EC CHEMISTRY ORDERABLES Performing Organization Address [facility] Phon e Number [facility] POINT OF CARE [address] [place] [phone] PLATELET COUNT (03/25/2022 4:04 AM CHARGE LOADER) athologist Signature PLT 130 130 - 375 03/25/2022 [facility] 10*9/L 4:31 AM [facility] Specimen Anatomical Collection Method / Collection Time Recei eloina Time (Source) Location / Volume Laterality Blood BLOOD SPECIMEN / Venipuncture / 03/25/2022 4:04 2021 4:23 Unknown Unknown AM CHARGE LOADER AM CHARGE LOADER Yoko Johnson MD EC HEMATOLOGY ORDERABLES Performing Organization Address City/[facility] Phon e Number [facility] [address] [place] [phone] (ABNORMAL) WHITE BLOOD COUNT (03/25/2022 4:04 AM CHARGE LOADER) P athologist Signature WBC 45.0 (H) 3.2 - 11.0 03/25/2022 [facility] 10*9/L 4:31 AM [facility] Specimen Anatomical Collection Method / Collection Time Recei eloina Time (Source) Location / Volume Laterality Blood BLOOD SPECIMEN / Venipuncture / 03/25/2022 4:04 2021 4:23 Unknown Unknown AM CHARGE LOADER AM CHARGE LOADER Yoko Johnson MD EC HEMATOLOGY ORDERABLES Performing Organization Address City/[facility] Phon e Number [facility] [address] [place] [phone] PHOSPHORUS (03/25/2022 4:04 AM CHARGE LOADER) P athologist Signature Phosphorus 2.5 2.5 - 4.6 03/25/2022 [facility] mg/dL 4:46 AM [facility] Specimen Anatomical Collection Method / Collection Time Recei eloina Time (Source) Location / Volume Laterality Blood BLOOD SPECIMEN / Venipuncture / 03/25/2022 4:04 2021 4:24 Unknown Unknown AM CHARGE LOADER AM CHARGE LOADER Yoko Johnson MD EC CHEMISTRY ORDERABLES Performing Organization Address City/[facility]/ZIP [facility] Phon e Number [facility] [address] [place] [phone] MAGNESIUM (03/25/2022 4:04 AM CHARGE LOADER) P athologist Signature Magnesium 1.9 1.8 - 2.7 03/25/2022 [facility] mg/dL 4:46 AM [facility] Specimen Anatomical Collection Method / Collection Time Recei leoina Time (Source) Location / Volume Laterality Blood BLOOD SPECIMEN / Venipuncture / 03/25/2022 4:04 2021 4:24 Unknown Unknown AM CHARGE LOADER AM CHARGE LOADER Yoko Johnson MD EC CHEMISTRY ORDERABLES Performing Organization Address [facility] Phon e Number [facility] [address] [place] [phone] (ABNORMAL) BASIC METABOLIC PANEL (03/25/2022 4:04 AM CHARGE LOADER) Analysis Performed At Patho logist Time Signature Sodium 140 134 - 143 03/25/2022 [facility] mEq/L 4:46 AM [facility] Potassium 3.7 3.4 - 5.1 03/25/2022 [facility] mEq/L 4:46 AM [facility] Chloride 112 (H) 99 - 110 03/25/2022 [facility] mEq/L 4:46 AM [facility] Carbon Dioxide 22 19 - 29 03/25/2022 [facility] mEq/L 4:46 AM [facility] Anion Gap 6.0 3.0 - 15.0 03/25/2022 [facility] mEq/L 4:46 AM [facility] Blood Urea 18 5 - 24 03/25/2022 [facility] Nitrogen mg/dL 4:46 AM [facility] Creatinine 0.92 0.70 - 03/25/2022 [facility] 1.20 mg/dL 4:46 AM [facility] Glomerular 81 >60 03/25/2022 [facility] Filtration Rate mL/min/1.7 4:46 AM [facility] 3 m*2 LABORATORY Comment: Risk of cardiovascular disease increases when GFR is abnormal; persistently reduced GFR values are a specific indica tion of CKD. This calculation uses CKD-EPI 2020 equation without adjustment for rac e; it has not been validated in women. Calcium 8.1 (L) 8.4 - 10.5 mg/dL 03/25/2022 4:46 AM CHARGE LOADER [facility] Glucose 164 (H) 70 - 99 mg/dL 03/25/2022 4:46 AM CHARGE LOADER [facility] Specimen Anatomical Collection Method / Collection Time Recei eloina Time (Source) Location / Volume Laterality Blood BLOOD SPECIMEN / Venipuncture / 03/25/2022 4:04 2021 4:24 Unknown Unknown AM CHARGE LOADER AM CHARGE LOADER Narrative [facility] LAB[facility] - 4:46 AM CHARGE LOADER Current ADA criteria for Glucose: ?Normal: 70-99 mg/dL ?Impaired Fasting Glucose: 100-125 mg/dL ?Diabetes Mellitus: at or above 126 mg/dL The diagnosis of diabetes must be confir med on a subsequent day by measuring Fasting Plasma Glucose, 2-hr PG or random plasma glucose (if symptoms are present). Yoko Johnson MD EC CHEMISTRY ORDERABLES Performing Organization Address City/[facility] Phon e Number [facility] [address] [place] [phone] (ABNORMAL) HEMOGLOBIN (03/25/2022 4:04 AM CHARGE LOADER) P athologist Signature HGB 7.7 (L) 12.9 - 16.9 03/25/2022 [facility] g/dL 4:28 AM [facility] Specimen Anatomical Collection Method / Collection Time Recei eloina Time (Source) Location / Volume Laterality Blood BLOOD SPECIMEN / Venipuncture / 03/25/2022 4:04 2021 4:23 Unknown Unknown AM CHARGE LOADER AM CHARGE LOADER Mere Ewing APRN [employer]CHANDIS[employer] EC HEMATOLOGY ORDERABLES Performing Organization Address City/[facility]/ZIP [facility] Phon e Number [facility] [address] [place] [phone] EKG 12-LEAD (03/25/2022 12:49 AM CHARGE LOADER) P athologist Signature Ventricular Rate 110 BPM MUSE Atrial Rate 110 BPM MUSE P-R Interval 168 ms MUSE QRS Duration 162 ms MUSE QT 404 ms MUSE QTc 546 ms MUSE R [place] -65 degrees MUSE T [place] 11 degrees MUSE Specimen (Source) Anatomical Collection Method Collection Time Re ceived Time Location / / Volume Laterality 03/25/2022 12:49 AM CHARGE LOADER Narrative MUSE - 03/25/2022 8:03 AM CHARGE LOADER Confirming Luisito Forbes MD Wide QRS tachycardia Possible Atrial [...] MD IP ECG ORDERABLES Performing Organization Address City/[facility]/ZIP Code Phon e Number MUSE (ABNORMAL) GLUCOSE, METER (03/24/2022 10:07 PM CHARGE LOADER) P athologist Signature Glucose Meter 168 (H) 70 - 99 03/24/2022 [facility] mg/dL 10:15 PM [facility] POINT OF [facility] Specimen Anatomical Collection Method Collection Time Receive d Time (Source) Location / / Volume Laterality Blood BLOOD SPECIMEN / 03/24/2022 10:07 022 Unknown PM CHARGE LOADER 10:15 PM CHARGE LOADER Agustin Palacio MD EC CHEMISTRY ORDERABLES Performing Organization Address City/[facility] Phon e Number [facility] POINT OF CARE [address] [place], [place] [phone] (ABNORMAL) HEMOGLOBIN (03/24/2022 8:02 PM CHARGE LOADER) P athologist Signature HGB 7.9 (L) 12.9 - 16.9 03/24/2022 [facility] g/dL 8:08 PM [facility] Specimen Anatomical Collection Method / Collection Time Recei eloina Time (Source) Location / Volume Laterality Blood BLOOD SPECIMEN / Venipuncture / 03/24/2022 8:02 2021 8:06 Unknown Unknown PM CHARGE LOADER PM CHARGE LOADER Mere Ewing APRN, CNP EC HEMATOLOGY ORDERABLES Performing Organization Address City/[facility]/ZIP [facility] Phon e Number [facility] [address] [place] [phone] (ABNORMAL) GLUCOSE, METER (03/24/2022 5:08 PM CHARGE LOADER) P athologist Signature Glucose Meter 147 (H) 70 - 99 03/24/2022 [facility] mg/dL 5:15 PM CHARGE LOADER [facility] POINT OF CARE Specimen Anatomical Collection Method Collection Time Receive d Time (Source) Location / / Volume Laterality Blood BLOOD SPECIMEN / 03/24/2022 5:08 PM 03/24 5:15 Unknown CHARGE LOADER PM CHARGE LOADER Agustin Palacio MD EC CHEMISTRY ORDERABLES Performing Organization Address [facility] Phon e Number [facility] [address] [place] [phone] (ABNORMAL) HEMOGLOBIN (03/24/2022 12:08 PM CHARGE LOADER) P athologist Signature HGB 8.3 (L) 12.9 - 16.9 03/24/2022 [facility] g/dL 12:14 PM CHARGE LOADER [facility] Specimen Anatomical Collection Method / Collection Time Recei eloina Time (Source) Location / Volume Laterality Blood BLOOD SPECIMEN / Venipuncture / 03/24/2022 12:08 03/24 Unknown Unknown PM CHARGE LOADER 12:12 PM CHARGE LOADER Mere Ewing APRN, CNP EC HEMATOLOGY ORDERABLES Performing Organization Address City/[facility]/ZIP [facility] Phon e Number [facility] [address] [place] [phone] (ABNORMAL) GLUCOSE, METER (03/24/2022 11:47 AM CHARGE LOADER) P athologist Signature Glucose Meter 142 (H) 70 - 99 03/24/2022 [facility] mg/dL 11:54 AM [facility] POINT OF CARE Specimen Anatomical Collection Method Collection Time Receive d Time (Source) Location / / Volume Laterality Blood BLOOD SPECIMEN / 03/24/2022 11:47 022 Unknown AM CHARGE LOADER 11:54 AM CHARGE LOADER Glynn Jones MD EC CHEMISTRY ORDERABLES Performing Organization Address City/[facility]/ZIP [facility] Phon e Number [facility] POINT OF CARE [address] [place] [phone] (ABNORMAL) HEMOGLOBIN (03/24/2022 5:48 AM CHARGE LOADER) athologist Signature HGB 7.5 (L) 12.9 - 16.9 03/24/2022 [facility] g/dL 6:10 AM CHARGE LOADER [facility]ITAL LAB[facility]ORY Specimen Anatomical Collection Method / Collection Time Recei eloina Time (Source) Location / Volume Laterality Blood BLOOD SPECIMEN / Venipuncture / 03/24/2022 5:48 2021 6:06 Unknown Unknown AM CHARGE LOADER AM CHARGE LOADER Mere Ewing APRN, CYDNEY EC HEMATOLOGY ORDERABLES Performing Organization Address City/[facility]/ZIP [facility] Phon e Number [facility] [address] [place] [phone] PLATELET COUNT (03/24/2022 5:48 AM CHARGE LOADER) athologist Signature PLT 150 130 - 375 03/24/2022 [facility] 10*9/L 6:16 AM CHARGE LOADER [facility] Specimen Anatomical Collection Method / Collection Time Recei eloina Time (Source) Location / Volume Laterality Blood BLOOD SPECIMEN / Venipuncture / 03/24/2022 5:48 2021 6:06 Unknown Unknown AM CHARGE LOADER AM CHARGE LOADER Yoko Johnson MD EC HEMATOLOGY ORDERABLES Performing Organization Address City/[facility]/ZIP [facility] Phon e Number [facility] [address] [place] [phone] (ABNORMAL) WHITE BLOOD COUNT (03/24/2022 5:48 AM CHARGE LOADER) athologist Signature WBC 62.6 (HH) 3.2 - 11.0 03/24/2022 [facility] 10*9/L 6:17 AM CHARGE LOADER [facility]ITAL LAB[facility]ORY Specimen Anatomical Collection Method / Collection Time Recei eloina Time (Source) Location / Volume Laterality Blood BLOOD SPECIMEN / Venipuncture / 03/24/2022 5:48 2021 6:06 Unknown Unknown AM CHARGE LOADER AM CHARGE LOADER Yoko Johnson MD EC HEMATOLOGY ORDERABLES Performing Organization Address City/[facility]/ZIP [facility] Phon e Number [facility] [address] [place] [phone] PHOSPHORUS (03/24/2022 3:01 AM CHARGE LOADER) athologist Signature Phosphorus 3.2 2.5 - 4.6 03/24/2022 [facility] mg/dL 3:30 AM [facility] Specimen Anatomical Collection Method / Collection Time Recei eloina Time (Source) Location / Volume Laterality Blood BLOOD SPECIMEN / Venipuncture / 03/24/2022 3:01 2021 3:10 Unknown Unknown AM CHARGE LOADER AM CHARGE LOADER Yoko Johnson MD EC CHEMISTRY ORDERABLES Performing Organization Address City/[facility] Phon e Number [facility] [address] [place] [phone] MAGNESIUM (03/24/2022 3:01 AM CHARGE LOADER) athologist Signature Magnesium 1.8 1.8 - 2.7 03/24/2022 [facility] mg/dL 3:30 AM [facility] Specimen Anatomical Collection Method / Collection Time Recei eloina Time (Source) Location / Volume Laterality Blood BLOOD SPECIMEN / Venipuncture / 03/24/2022 3:01 2021 3:10 Unknown Unknown AM CHARGE LOADER AM CHARGE LOADER Yoko Johnson MD EC CHEMISTRY ORDERABLES Performing Organization Address City/[facility] Phon e Number [facility] [address] [place] [phone] (ABNORMAL) BASIC METABOLIC PANEL (03/24/2022 3:01 AM CHARGE LOADER) [facility] Method Time Signature Sodium 141 134 - 143 03/24/2022 [facility] mEq/L 3:30 AM [facility] Potassium 4.1 3.4 - 5.1 03/24/2022 [facility] mEq/L 3:30 AM [facility] Chloride 113 (H) 99 - 110 03/24/2022 [facility] mEq/L 3:30 AM [facility] Carbon Dioxide 19 19 - 29 03/24/2022 [facility] mEq/L 3:30 AM [facility] Anion Gap 9.0 3.0 - 15.0 03/24/2022 [facility] mEq/L 3:30 AM [facility] Blood Urea 28 (H) 5 - 24 03/24/2022 [facility] Nitrogen mg/dL 3:30 AM [facility] Creatinine 1.22 (H) 0.70 - 03/24/2022 [facility] 1.20 mg/dL 3:30 AM [facility] Glomerular 58 (L) >60 03/24/2022 [facility] Filtration Rate mL/min/1.7 3:30 AM [facility] 3 m*2 LABORATORY Comment: Risk of cardiovascular disease increases when GFR is abnormal; persistently reduced GFR values are a specific indica tion of CKD. This calculation uses CKD-EPI 2020 equation without adjustment for rac e; it has not been validated in women. Calcium 7.8 (L) 8.4 - 10.5 mg/dL 03/24/2022 3:30 AM [facility] Glucose 186 (H) 70 - 99 mg/dL 03/24/2022 3:30 AM [facility] Specimen Anatomical Collection Method / Collection Time Recei eloina Time (Source) Location / Volume Laterality Blood BLOOD SPECIMEN / Venipuncture / 03/24/2022 3:01 2021 3:10 Unknown Unknown AM CHARGE LOADER AM CHARGE LOADER Narrative [facility] LAB[facility] - 3:30 AM CHARGE LOADER Current ADA criteria for Glucose: ?Normal: 70-99 mg/dL ?Impaired Fasting Glucose: 100-125 mg/dL ?Diabetes Mellitus: at or above 126 mg/dL The diagnosis of diabetes must be confir med on a subsequent day by measuring Fasting Plasma Glucose, 2-hr PG or random plasma glucose (if symptoms are present). Yoko Johnson MD EC CHEMISTRY ORDERABLES Performing Organization Address City/[facility]/ZIP Code Phon e Number [facility] [address], [place] [address] (ABNORMAL) GLUCOSE, METER (03/23/2022 11:38 PM CHARGE LOADER) P athologist Signature Glucose Meter 146 (H) 70 - 99 03/23/2022 [facility] mg/dL 11:44 PM [facility] POINT OF CARE Specimen Anatomical Collection Method Collection Time Receive d Time (Source) Location / / Volume Laterality Blood BLOOD SPECIMEN / 03/23/2022 11:38 022 Unknown PM CHARGE LOADER 11:44 PM CHARGE LOADER Glynn Jones MD EC CHEMISTRY ORDERABLES Performing Organization Address City/[facility]/ZIP [facility] Phon e Number [facility] POINT OF CARE [address] [place] [phone] (ABNORMAL) HEMOGLOBIN (03/23/2022 11:38 PM CHARGE LOADER) P athologist Signature HGB 7.7 (L) 12.9 - 16.9 03/24/2022 [facility] g/dL 12:19 AM CHARGE LOADER [facility]OSPITAL LAB[facility]ORY Specimen Anatomical Collection Method / Collection Time Recei eloina Time (Source) Location / Volume Laterality Blood BLOOD SPECIMEN / Venipuncture / 03/23/2022 11:38 03/24 Unknown Unknown PM CHARGE LOADER 12:16 AM CHARGE LOADER Mere Ewing APRN, CNP EC HEMATOLOGY ORDERABLES Performing Organization Address City/[facility] Phon e Number [facility] [address] [place] [phone] (ABNORMAL) GLUCOSE, METER (03/23/2022 5:45 PM CHARGE LOADER) athologist Signature Glucose Meter 124 (H) 70 - 99 03/23/2022 [facility] mg/dL 5:52 PM CHARGE LOADER [facility] POINT OF CARE Specimen Anatomical Collection Method Collection Time Receive d Time (Source) Location / / Volume Laterality Blood BLOOD SPECIMEN / 03/23/2022 5:45 PM 03/23 5:52 Unknown CHARGE LOADER PM CHARGE LOADER Glynn Jones MD EC CHEMISTRY ORDERABLES Performing Organization Address City/[facility] Phon e Number [facility] POINT OF CARE [address] [place] [phone] (ABNORMAL) HEMOGLOBIN (03/23/2022 5:45 PM CHARGE LOADER) athologist Signature HGB 8.0 (L) 12.9 - 16.9 03/23/2022 [facility] g/dL 5:51 PM CHARGE LOADER [facility]PITAL LAB[facility]ORY Specimen Anatomical Collection Method / Collection Time Recei eloina Time (Source) Location / Volume Laterality Blood BLOOD SPECIMEN / Venipuncture / 03/23/2022 5:45 2021 5:49 Unknown Unknown PM CHARGE LOADER PM CHARGE LOADER Mere Ewing APRN, CNP EC HEMATOLOGY ORDERABLES Performing Organization Address City/[facility] Phon e Number [facility] [address] [place] [phone] COLONOSCOPY PROCEDURE (03/23/2022 5:44 PM CHARGE LOADER) Component Value Ref Test Analysis Performed At [facility] Range Method Time Signature Colonoscopy [place] [facility] Procedure Gastroenterology LABORATORY Patient Name: Kristofer Garcia ? Date of : 1935 ?Patient Status: Inpatient Age: 86 ? Gender: Male Note Status: Finalized ?Procedure Date No Time: 03/23/2022 Procedure: ? Colonoscopy Endoscopist: ? DO Edith NG MD: ?GLYNN JONES MD Indications: ? Hematochezia, [...] for any further evidence ? of re-bleeding. Cotton Converter(s): ? I personally performed the entire procedure. Kamlesh Prieto MD KAMLESH PRIETO DO 03/23/2022 6:50:16 PM This report has been signed electronically. ? [address] [place] [id number] Procedure Repo rt Specimen (Source) Anatomical Collection Method Collection Time Re ceived Time Location / / Volume Laterality 03/23/2022 5:44 PM CHARGE LOADER Kamlesh Prieto DO EC PROCEDURES Performing Organization Address City/State/ZIP Code Phon e Number [facility] LABORATORY ADMIT MRSA, MOLECULAR DETECTION (03/23/2022 1:48 PM CHARGE LOADER) [facility] Method Time Signature MRSA Not Detected Not Detected 03/23/2022 [facility] 3:57 PM CHARGE LOADER HOSPITAL LABORATORY Specimen Anatomical Collection Method Collection Time Receive d Time (Source) Location / / Volume Laterality Swab BOTH ANTERIOR Non-blood 03/23/2022 1:48 PM 03/23/20 22 2:39 NARES / Unknown collection / CHARGE LOADER PM CHARGE LOADER Unknown Narrative [facility] - 2 3:57 PM CHARGE LOADER Test results must be interpreted within the context of all relevant clinical and laboratory findings. ??Test performance has not been evaluated in patients less than two (2) yeas of age. Method Information This test uses the Veenome Xpert MRSA Nx G assay to detect methicillin-resistant Staphylococcus aureus (MRSA) DNA by real-time polymerase chain reaction (PCR) on the VoltDB Instrument System. ??The Xpert MRSA NxG test detects sequen ama for methicillin/oxacillin resistance (mecA and mecC genes), and SCCmec, which is inserted into the Staphylococcus aureus chromosome at the attB site. Glynn Jones MD EC MICROBIOLOGY - GENERAL OR DERABLES Performing Organization Address City/State/ZIP Code Phon e Number [facility] [address] [place] [address] TRANSFUSE RED BLOOD CELLS (03/23/2022 12:28 PM CHARGE LOADER) CYDNEY Rivera APRN [facility] TREATMENT ORDERABL ES - BLOOD ADMIN TRANSFUSE RED BLOOD CELLS (03/23/2022 12:28 PM CHARGE LOADER) CYDNEY Rivera APRN [facility] TREATMENT ORDERABL ES - BLOOD ADMIN ECHO ADULT COMPLETE W CONTRAST (03/23/2022 12:26 PM CHARGE LOADER) Component Value Ref Test Analysis Performed At [facility] gist Range Method Time Signature LVEF Range Qualitative XCELERA Percent ejection fraction is 55-60% (normal). RESULT [facility] [address] [place] [address] ? Transthoracic Echocardiogram Report Name: KRISTOFER GARCIA ? Study Date: 03/23/2022 ? Performing Location: [facility] 89 : 1935 ? Gender: Male Height: 68 [...] ?LVIDs: 3.4 cm ? IVS/LVPW: 0.91 ? EDV([facility] 147.4 ml ? LVOT diam: 2.4 cm ESV([facility] 47.4 ml EF([facility] 67.8 % ? RWT: 0.40 Time Measurements [...] is no t available. Mere Ewing APRN, PRODUCE FIELD MERCHANDISER CV ECHO PROCEDURES Performing Organization Address City/State/ZIP Code Phon e Number XCELERA RAPID SARS-COV-2 RNA (COVID-19), MOLECULAR DETECTION (03/23/2022 12:11 PM CHARGE LOADER) [facility] Method Time Signature SARS-CoV-2 Negative Negative/Not 03/23/2022 [facility] RNA Detected 12:59 PM CHARGE LOADER [facility] (COVID-19) LABORATORY Comment: SARS-CoV-2 (COVID-19) target nu [...] 03/23/2022 12:11 03/23/20 22 Collection / PM CHARGE LOADER 12:25 PM CHARGE LOADER Unknown Narrative [facility] - 12:59 PM CHARGE LOADER Test detects target RNA by real-time polymerase chain reaction (PCR) on the Veenome GeneXpert System. Results should be used in [...] for this test can be found at: https://www.fda.gov/medical-devices/xvitugvlc-igfblptmiv-havpyxo-devices/emergen ot-yvw-jiakyipnfovjgp Kamlesh Laird Renaejodymary DO EC MICROBIOLOGY - GENERAL OR DERABLES Performing Organization Address City/[facility] Phon e Number [facility] [address] [place] [address] (ABNORMAL) HEMOGLOBIN (03/23/2022 12:11 PM CHARGE LOADER) P athologist Signature HGB 9.0 (L) 12.9 - 16.9 03/23/2022 [facility] g/dL 12:35 PM CHARGE LOADER HOSPITAL LABORATORY Specimen Anatomical Collection Method / Collection Time Recei eloina Time (Source) Location / Volume Laterality Blood BLOOD SPECIMEN / Venipuncture / 03/23/2022 12:11 03/23 Unknown Unknown PM CHARGE LOADER 12:32 PM CHARGE LOADER Mere Ewing APRN, PRODUCE FIELD MERCHANDISER EC HEMATOLOGY ORDERABLES Performing Organization Address City/[facility]/ZIP [facility] Phon e Number [facility] [address] [place] [address] (ABNORMAL) PROTIME (03/23/2022 12:11 PM CHARGE LOADER) P athologist Signature INR 1.3 (H) 0.9 - 1.1 03/23/2022 [facility] 12:53 PM CHARGE LOADER HOSPITAL LABORATORY Protime 15.7 (H) 12.0 - 14.1 03/23/2022 [facility] sec 12:53 PM CHARGE LOADER HOSPITAL LABORATORY Specimen Anatomical Collection Method / Collection Time Recei eloina Time (Source) Location / Volume Laterality Blood BLOOD SPECIMEN / Venipuncture / 03/23/2022 12:11 03/23 Unknown Unknown PM CHARGE LOADER 12:32 PM CHARGE LOADER Narrative [facility] - 12:53 PM CHARGE LOADER Suggested therapeutic INR ranges for oral anticoagulant therapy: Category ? INR Value Prophylaxis ?2.0-3.0 Treat Thrombosis or Embolism ? 2.0-3 .0 Prosthetic Heart Valve ? 2. 5-3.5 Mere Ewing APRN, CNP EC HEMATOLOGY ORDERABLES Performing Organization Address [facility]/ZIP [facility] Phon e Number [facility] [address] [place] [phone] (ABNORMAL) GLUCOSE, METER (03/23/2022 12:10 PM CHARGE LOADER) athologist Signature Glucose Meter 170 (H) 70 - 99 03/23/2022 [facility] mg/dL 12:17 PM [facility] POINT OF CARE Specimen Anatomical Collection Method Collection Time Receive d Time (Source) Location / / Volume Laterality Blood BLOOD SPECIMEN / 03/23/2022 12:10 022 Unknown PM CHARGE LOADER 12:17 PM CHARGE LOADER Glynn Jones MD EC CHEMISTRY ORDERABLES Performing Organization Address [facility] Phon e Number [facility] POINT OF CARE [address] [place] [phone] (ABNORMAL) HEMOGLOBIN (03/23/2022 7:53 AM CHARGE LOADER) athologist Signature HGB 8.0 (L) 12.9 - 16.9 03/23/2022 [facility] g/dL 8:33 AM [facility] LABORATORY Specimen Anatomical Collection Method / Collection Time Recei eloina Time (Source) Location / Volume Laterality Blood BLOOD SPECIMEN / Venipuncture / 03/23/2022 7:53 2021 8:29 Unknown Unknown AM CHARGE LOADER AM CHARGE LOADER Alen Marrero MD EC HEMATOLOGY ORDERABLES Performing Organization Address [facility] Phon e Number [facility] [address] [place] [phone] (ABNORMAL) URINALYSIS, REFLEX TO MICROSCOPIC (03/23/2022 6:07 AM CHARGE LOADER) [facility] Method Time Signature Urine Color Yellow Straw, 03/23/2022 [facility] Yellow, 6:17 AM [facility] Nicki LABORATORY Urine Clear Clear 03/23/2022 [facility] Appearance 6:17 AM [facility] LABOR[facility]ORY Urine Specific 1.015 1.003 - 03/23/2022 [facility] [place] 1.035 6:17 AM [facility] LABORATORY Urine pH 5.5 5.0 - 8.0 03/23/2022 [facility] 6:17 AM [facility] LABORATORY Urine Glucose 500 (A) Negative 03/23/2022 [facility] 6:17 AM [facility] LAB[facility] Urine Ketones 80 (A) Negative 03/23/2022 [facility] 6:17 AM [facility] LABORATORY Urine Protein Negative Negative, 03/23/2022 [facility] Trace mg/dL 6:17 AM [facility] Urine Nitrites Negative Negative 03/23/2022 [facility] 6:17 AM [facility] Urine Negative Negative 03/23/2022 [facility] Leukocyte 6:17 AM [facility] Esterase LABORATORY Specimen Anatomical Collection Method Collection Time Receive d Time (Source) Location / / Volume Laterality Urine URINE SPECIMEN Non-blood 03/23/2022 6:07 AM 022 6:11 OBTAINED VIA collection / CHARGE LOADER AM CHARGE LOADER INDWELLING URINARY Unknown CATHETER / Unknown Narrative [facility] - 6:17 AM CHARGE LOADER A routine urine not reflexing to a micro scopic exam automatically means the dipstick blood test is negative. Alen Marrero MD EC URINE ORDERABLES Performing Organization Address City/[facility]/ZIP Code Phon e Number [facility] [address] [place] [phone] (ABNORMAL) GLUCOSE, METER (03/23/2022 5:44 AM CHARGE LOADER) P athologist Signature Glucose Meter 165 (H) 70 - 99 03/23/2022 [facility] mg/dL 5:50 AM [facility] POINT OF CARE Specimen Anatomical Collection Method Collection Time Receive d Time (Source) Location / / Volume Laterality Blood BLOOD SPECIMEN / 03/23/2022 5:44 AM 03/23 5:50 Unknown CHARGE LOADER AM CHARGE LOADER Yoko Johnson MD EC CHEMISTRY ORDERABLES Performing Organization Address City/[facility]/ZIP [facility] Phon e Number [facility] POINT OF CARE [address] [place] [address] PROCALCITONIN, BLOOD (03/23/2022 4:57 AM CHARGE LOADER) P athologist Signature Procalcitonin 0.06 <0.50 03/23/2022 [facility] ng/mL 6:03 AM CHARGE LOADER HOSPITAL LABORATORY Specimen Anatomical Collection Method / Collection Time Recei eloina Time (Source) Location / Volume Laterality Blood BLOOD SPECIMEN / Venipuncture / 03/23/2022 4:57 2021 5:09 Unknown Unknown AM CHARGE LOADER AM CHARGE LOADER Narrative [facility] - 6:03 AM CHARGE LOADER Procalcitonin Interpretation Guidelines: Diagnosis of systemic bacterial [...] Organization Address City/State/ZIP Code Phon e Number [facility] [address] [place] [address] (ABNORMAL) HEMOGLOBIN (03/23/2022 4:57 AM CHARGE LOADER) P athologist Signature HGB 8.1 (L) 12.9 - 16.9 03/23/2022 [facility] g/dL 5:10 AM CHARGE LOADER HOSPITAL LABORATORY Specimen Anatomical Collection Method / Collection Time Recei eloina Time (Source) Location / Volume Laterality Blood BLOOD SPECIMEN / Venipuncture / 03/23/2022 4:57 2021 5:08 Unknown Unknown AM CHARGE LOADER AM CHARGE LOADER Alen Marrero MD EC HEMATOLOGY ORDERABLES Performing Organization Address City/[facility]/ZIP [facility] Phon e Number [facility] [address] [place] [phone] PLATELET COUNT (03/23/2022 4:57 AM CHARGE LOADER) P athologist Signature PLT 188 130 - 375 03/23/2022 [facility] 10*9/L 5:15 AM CHARGE LOADER HOSPITAL LABORATORY Specimen Anatomical Collection Method / Collection Time Recei eloina Time (Source) Location / Volume Laterality Blood BLOOD SPECIMEN / Venipuncture / 03/23/2022 4:57 2021 5:08 Unknown Unknown AM CHARGE LOADER AM CHARGE LOADER Yoko Johnson MD EC HEMATOLOGY ORDERABLES Performing Organization Address [facility] Phon e Number [facility] [address] [place] [phone] (ABNORMAL) WHITE BLOOD COUNT (03/23/2022 4:57 AM CHARGE LOADER) P athologist Signature WBC 78.1 (HH) 3.2 - 11.0 03/23/2022 [facility] 10*9/L 5:16 AM CHARGE LOADER HOSPITAL LABORATORY Specimen Anatomical Collection Method / Collection Time Recei eloina Time (Source) Location / Volume Laterality Blood BLOOD SPECIMEN / Venipuncture / 03/23/2022 4:57 2021 5:08 Unknown Unknown AM CHARGE LOADER AM CHARGE LOADER Yoko Johnson MD EC HEMATOLOGY ORDERABLES Performing Organization Address City/[facility]/ZIP [facility] Phon e Number [facility] [address] [place] [phone] PHOSPHORUS (03/23/2022 4:57 AM CHARGE LOADER) P athologist Signature Phosphorus 4.4 2.5 - 4.6 03/23/2022 [facility] mg/dL 5:29 AM CHARGE LOADER HOSPITAL LABORATORY Specimen Anatomical Collection Method / Collection Time Recei eloina Time (Source) Location / Volume Laterality Blood BLOOD SPECIMEN / Venipuncture / 03/23/2022 4:57 2021 5:09 Unknown Unknown AM CHARGE LOADER AM CHARGE LOADER Yoko Johnson MD EC CHEMISTRY ORDERABLES Performing Organization Address City/[facility] Phon e Number [facility] [address] [place] [phone] MAGNESIUM (03/23/2022 4:57 AM CHARGE LOADER) P athologist Signature Magnesium 1.8 1.8 - 2.7 03/23/2022 [facility] mg/dL 5:29 AM [facility] Specimen Anatomical Collection Method / Collection Time Recei eloina Time (Source) Location / Volume Laterality Blood BLOOD SPECIMEN / Venipuncture / 03/23/2022 4:57 2021 5:09 Unknown Unknown AM CHARGE LOADER AM CHARGE LOADER Yoko Johnson MD EC CHEMISTRY ORDERABLES Performing Organization Address City/State/ZIP Code Phon e Number [facility] [address] [place] [address] (ABNORMAL) BASIC METABOLIC PANEL (03/23/2022 4:57 AM CHARGE LOADER) Patholo gist Method Time Signature Sodium 143 134 - 143 03/23[facility]2022 [facility] m[facility]/L 5:29 AM [facility] Potassium 4.6 3.4 - 5.1 03/23/2022 [facility] mEq/L 5:29 AM [facility] Chloride 115 (H) 99 - 110 03/23/2022 [facility] mEq/L 5:29 AM [facility] Carbon Dioxide 15 (L) 19 - 29 03/23/2022 [facility] mEq/L 5:29 AM [facility] Anion Gap 13.0 3.0 - 15.0 03/23/2022 [facility] mEq/L 5:29 AM [facility] Blood Urea 32 (H) 5 - 24 03/23/2022 [facility] Nitrogen mg/dL 5:29 AM [facility] Creatinine 1.27 (H) 0.70 - 03/23/2022 [facility] 1.20 mg/dL 5:29 AM [facility] Glomerular 55 (L) >60 03/23/2022 [facility] Filtration Rate mL/min/1.7 5:29 AM [facility] 3 m*2 LABORATORY Comment: Risk of cardiovascular disease increases when GFR is abnormal; persistently reduced GFR values are a specific indica tion of CKD. This calculation uses CKD-EPI 2020 equation without adjustment for rac e; it has not been validated in women. Calcium 8.2 (L) 8.4 - 10.5 mg/dL 03/23/2022 5:29 AM CHARGE LOADER [facility] Glucose 184 (H) 70 - 99 mg/dL 03/23/2022 5:29 AM CHARGE LOADER [facility] Specimen Anatomical Collection Method / Collection Time Recei eloina Time (Source) Location / Volume Laterality Blood BLOOD SPECIMEN / Venipuncture / 03/23/2022 4:57 2021 5:09 Unknown Unknown AM CHARGE LOADER AM CHARGE LOADER Narrative [facility] - 5:29 AM CHARGE LOADER Current ADA criteria for Glucose: ?Normal: 70-99 mg/dL ?Impaired Fasting Glucose: 100-125 mg/dL ?Diabetes Mellitus: at or above 126 mg/dL The diagnosis of diabetes must be confir med on a subsequent day by measuring Fasting Plasma Glucose, 2-hr PG or random plasma glucose (if symptoms are present). Yoko Johnson MD EC CHEMISTRY ORDERABLES Performing Organization Address [facility] Phon e Number [facility] [address] [place] [phone] (ABNORMAL) GLUCOSE, METER (03/22/2022 11:39 PM CDT) P athologist Signature Glucose Meter 150 (H) 70 - 99 03/22/2022 [facility] mg/dL 11:46 PM CDT [facility] POINT OF CARE Specimen Anatomical Collection Method Collection Time Receive d Time (Source) Location / / Volume Laterality Blood BLOOD SPECIMEN / 03/22/2022 11:39 022 Unknown PM CDT 11:46 PM CDT Yoko Johnson MD EC CHEMISTRY ORDERABLES Performing Organization Address City/[facility] Phon e Number [facility] POINT OF CARE [address] [place] [phone] LACTIC ACID, VENOUS (03/22/2022 11:29 PM CDT) P athologist Signature Lactic Acid, 0.8 0.5 - 2.0 03/22/2022 [facility] Venous mmol/L 11:49 PM CDT [facility] Specimen Anatomical Collection Method / Collection Time Recei eloina Time (Source) Location / Volume Laterality Blood BLOOD SPECIMEN / Venipuncture / 03/22/2022 11:29 03/22 Unknown Unknown PM CDT 11:33 PM CDT Alen Marrero MD EC CHEMISTRY ORDERABLES Performing Organization Address City/[facility] Phon e Number [facility] [address] [place] [address] (ABNORMAL) HEMOGLOBIN (03/22/2022 11:29 PM CDT) P athologist Signature HGB 8.3 (L) 12.9 - 16.9 03/22/2022 [facility] g/dL 11:36 PM CDT HOSPITAL LABORATORY Specimen Anatomical Collection Method / Collection Time Recei eloina Time (Source) Location / Volume Laterality Blood BLOOD SPECIMEN / Venipuncture / 03/22/2022 11:29 11 Unknown Unknown PM CDT 11:33 PM CDT Yoko Johnson MD EC HEMATOLOGY ORDERABLES Performing Organization Address City/[facility]/ZIP Code Phon e Number [facility] [address] [place] [address] ABORH 2ND DRAW (03/22/2022 5:09 PM CDT) athologist Signature ABO Group O 03/22/2022 5:56 [facility] PM CDT HOSPITAL BLOOD BANK RH Type POS 03/22/2022 5:56 [facility] PM CDT HOSPITAL BLOOD BANK Specimen Anatomical Collection Method / Collection Time Recei eloina Time (Source) Location / Volume Laterality Blood BLOOD SPECIMEN / Venipuncture / 03/22/2022 5:09 2021 5:29 Unknown Unknown PM CDT PM CDT Yoko Johnson MD EC BLOOD BANK ORDERABLES Performing Organization Address City/[facility]/ZIP [facility] Phon e Number [facility] BLOOD BANK [address] [place] [address] (ABNORMAL) HEMOGLOBIN (03/22/2022 5:09 PM CDT) P athologist Signature HGB 9.0 (L) 12.9 - 16.9 03/22/2022 [facility] g/dL 5:31 PM CDT HOSPITAL LABORATORY Specimen Anatomical Collection Method / Collection Time Recei eloina Time (Source) Location / Volume Laterality Blood BLOOD SPECIMEN / Venipuncture / 03/22/2022 5:09 2021 5:28 Unknown Unknown PM CDT PM CDT Yoko Johnson MD EC HEMATOLOGY ORDERABLES Performing Organization Address City/State/ZIP Code Phon e Number [facility] [address] [place] [address] IR ANGIOGRAM SELECTIVE EACH ADDL VESSEL (03/22/2022 4:26 PM CDT) Anatomical Region Laterality Modality Abdomen, Pelvis, Vascular, Leg, Arm X-Ra y Angiography Specimen (Source) Anatomical Collection Method Collection Time Re ceived Time Location / / Volume Laterality 03/22/2022 4:26 PM CDT Narrative 03/22/2022 4:45 PM CDT This document is currently in Final Status Exam Procedure: Mesenteric angiogram Primary in store banker: Yair Jones MD Preoperative diagnosis: GI bleed [...] vascular sheath over a Bentson wire. A 5-Italian Motarjamie catheter was used to select the inferior mesenteric ar lucita. Angiogram obtained, showing widely patent artery with supply to the region of interest (distal descending colon/proximal sigmoid colon). No active contrast extravasation identified. A 2.8 Italian m icrocatheter was advanced over a wire fu rt into the ARA and additional arteriograms obtained [...] Stat us Exam Procedure: Mesenteric angiogram Primary in store banker: Yair Jones MD Preoperative diagnosis: GI bleed [...] a 5 Fr vascular sheath over a Treeveo wire. A 5-Italian Motarjamie catheter was used to select the inferior mesenteric artery. Angiogram obtained, showing widely patent artery with supply to the region of interest (distal descending colon/proximal sigmoid colon). No active contrast extravasation identified. A 2.8 Italian microcatheter was advanced over a wire further [...] Yoko Johnson MD EC IR ORDERABLES IR VISCERAL ANGIOGRAM (03/22/2022 4:26 PM CDT) Anatomical Region Laterality Modality Abdomen, Pelvis, Vascular, Other X-Ray A ngiography Specimen (Source) Anatomical Collection Method Collection Time Re ceived Time Location / / Volume Laterality 03/22/2022 4:26 PM CDT Narrative 03/22/2022 4:45 PM CDT This document is currently in Final Status Exam Procedure: Mesenteric angiogram Primary in store banker: Yair Jones MD Preoperative diagnosis: GI bleed [...] vascular sheath over a Bentson wire. A 5-Italian Motarjamie catheter was used to select the inferior mesenteric ar lucita. Angiogram obtained, showing widely patent artery with supply to the region of interest (distal descending colon/proximal sigmoid colon). No active contrast extravasation identified. A 2.8 Italian m icrocatheter was advanced over a wire [...] Stat us Exam Procedure: Mesenteric angiogram Primary in store banker: Yair Jones MD Preoperative diagnosis: GI bleed [...] vascular sheath over a Bentson wire. A 5-Italian Motarjamie catheter was used to select the inferior mesenteric artery. Angiogram obtained, showing widely patent artery with supply to the region of interest (distal descending colon/proximal sigmoid colon). No active contrast extravasation identified. A 2.8 Italian microcatheter was advanced over a wire further [...] bleedi ng via the SMA/marginal artery of [place], though this may prove difficult and places [...] Final Status Exam Procedure: Mesenteric angiogram Primary in store banker: Yair Jones MD Preoperative diagnosis: GI bleed [...] vascular sheath over a Bentson wire. A 5-Italian Motarjamie catheter was used to select the inferior mesenteric ar lucita. Angiogram obtained, showing widely patent artery with supply to the region of interest (distal descending colon/proximal sigmoid colon). No active contrast extravasation identified. A 2.8 Italian m icrocatheter was advanced over a wire [...] SMA collat erals intact (marginal artery of [place]). PLAN: If evidence of rebleeding, recomme nd [...] Stat us Exam Procedure: Mesenteric angiogram Primary in store banker: Yair Jones MD Preoperative diagnosis: GI bleed [...] was then placed, followed by the micro sheat h. This was exchanged for a 5 Fr vascular sheath over a Bentson wire. A 5-Italian Motarjamie catheter was used to select the inferior mesenteric artery. Angiogram obtained, showing widely patent artery with supply to the region of interest (distal descending colon/proximal sigmoid colon). No active contrast extravasation identified. A 2.8 Italian microcatheter was advanced over a wire further [...] SMA collat erals intact (marginal artery of [place]). PLAN: If evidence of rebleeding, recomme nd [...] Yair Jones 4:45 PM Yoko Johnson MD [facility] ORDERABLES RED BLOOD CELLS (03/22/2022 2:28 PM CDT) [facility] Method Time Signature Leukoreduced RBC [id number] 03/23/2022 p.Transfused 8:05 AM CHARGE LOADER 03/23/22 08:05 [facility] Unit ABO Type O 03/23/2022 8:05 AM CHARGE LOADER Unit Rh Type POS 03/23/2022 8:05 AM CHARGE LOADER Unit Number [id number] 03/23/2022 8:05 AM CHARGE LOADER Unit Status transfused 03/23/2022 8:05 AM CHARGE LOADER Unit Barcoded [id number] 03/23/2022 Product Code 8:05 AM CHARGE LOADER Specimen Anatomical Collection Method Collection Time Receive d Time (Source) Location / / Volume Laterality Blood BLOOD SPECIMEN / 03/22/2022 2:28 PM 03/22 2:34 Unknown CDT PM CDT Narrative [facility] - 2 8:05 AM CHARGE LOADER Type and Screen required for all RBC pro ducts.Transfusion Indications:->Clinically significant acute bloodloss1 UNITS Mere Ewing APRN, CNP EC BLOOD BANK ORDERABLES Performing Organization Address [facility] Phon e Number [facility] [address] [place] [address] (ABNORMAL) PROTIME (03/22/2022 2:28 PM CDT) P athologist Signature INR 1.3 (H) 0.9 - 1.1 03/22/2022 [facility] 2:49 PM CDT HOSPITAL LABORATORY Protime 15.6 (H) 12.0 - 14.1 03/22/2022 [facility] sec 2:49 PM CDT HOSPITAL LABORATORY Specimen Anatomical Collection Method / Collection Time Recei eloina Time (Source) Location / Volume Laterality Blood BLOOD SPECIMEN / Venipuncture / 03/22/2022 2:28 2021 2:34 Unknown Unknown PM CDT PM CDT Narrative [facility] - 2 2:49 PM CDT Suggested therapeutic INR ranges for oral anticoagulant therapy: Category ? INR Value Prophylaxis ?2.0-3.0 Treat Thrombosis or Embolism ? 2.0-3 .0 Prosthetic Heart Valve ? 2. 5-3.5 Yoko Johnson MD EC HEMATOLOGY ORDERABLES Performing Organization Address [facility] Phon e Number [facility] [address] [place] [address] TROPONIN I (03/22/2022 2:28 PM CDT) P athologist Signature Troponin I 0.020 0.000 - 03/22/2022 [facility] 0.028 ng/mL 2:59 PM CDT HOSPITAL LABORATORY Specimen Anatomical Collection Method / Collection Time Recei eloina Time (Source) Location / Volume Laterality Blood BLOOD SPECIMEN / Venipuncture / 03/22/2022 2:28 2021 2:34 Unknown Unknown PM CDT PM CDT Narrative [facility] - 2:59 PM CDT Because no pediatric reference range elvira a is published, the adult reference range will be utilized as this represents 99% of healthy adults. Yoko Johnson MD EC CHEMISTRY ORDERABLES Performing Organization Address City/[facility] Phon e Number [facility] [address] [place] [phone] LACTIC ACID, VENOUS (03/22/2022 2:28 PM CDT) P athologist Signature Lactic Acid, 1.0 0.5 - 2.0 03/22/2022 [facility] Venous mmol/L 2:49 PM CDT HOSPITAL LABORATORY Specimen Anatomical Collection Method / Collection Time Recei eloina Time (Source) Location / Volume Laterality Blood BLOOD SPECIMEN / Venipuncture / 03/22/2022 2:28 2021 2:34 Unknown Unknown PM CDT PM CDT Yoko Johnson MD EC CHEMISTRY ORDERABLES Performing Organization Address City/[facility] Phon e Number [facility] [address] [place] [phone] PHOSPHORUS (03/22/2022 2:28 PM CDT) P athologist Signature Phosphorus 3.2 2.5 - 4.6 03/22/2022 [facility] mg/dL 2:54 PM CDT HOSPITAL LABORATORY Specimen Anatomical Collection Method / Collection Time Recei eloina Time (Source) Location / Volume Laterality Blood BLOOD SPECIMEN / Venipuncture / 03/22/2022 2:28 2021 2:34 Unknown Unknown PM CDT PM CDT Yoko Johnson MD EC CHEMISTRY ORDERABLES Performing Organization Address City/[facility] Phon e Number [facility] [address] [place] [phone] (ABNORMAL) MAGNESIUM (03/22/2022 2:28 PM CDT) P athologist Signature Magnesium 1.7 (L) 1.8 - 2.7 03/22/2022 [facility] mg/dL 2:54 PM CDT HOSPITAL LABORATORY Specimen Anatomical Collection Method / Collection Time Recei eloina Time (Source) Location / Volume Laterality Blood BLOOD SPECIMEN / Venipuncture / 03/22/2022 2:28 2021 2:34 Unknown Unknown PM CDT PM T Yoko Johnson MD EC CHEMISTRY ORDERABLES Performing Organization Address City/State/ZIP Code Phon e Number [facility] [address] [facility] [place] [address] (ABNORMAL) COMPREHENSIVE METABOLIC PANEL (03/22/2022 2:28 PM CDT) [facility] Sodium 142 134 - 143 03/22/2022 [facility] mEq/L 2:[address] [facility] Potassium 4.5 3.4 - 5.1 03/22/2022 [facility] mEq/L 2:[address] [facility] Chloride 114 (H) 99 - 110 03/22/2022 [facility] mEq/L 2:[address] [facility] Carbon Dioxide 19 19 - 29 03/22/2022 [facility] mEq/L 2:[address] [facility] Anion Gap 9.0 3.0 - 15.0 03/22/2022 [facility] mEq/L 2:[address] [facility] Blood Urea 26 (H) 5 - 24 03/22/2022 [facility] Nitrogen mg/dL 2:[address] [facility] Creatinine 0.98 0.70 - 03/22/2022 [facility] 1.20 mg/dL 2:[address] [facility] Glomerular 75 >60 03/22/2022 [facility] Filtration Rate mL/min/1.7 2:[address] [facility] 3 m*2 LABORATORY Comment: Risk of cardiovascular disease increases when GFR is abnormal; persistently reduced GFR values are a specific indica tion of CKD. This calculation uses CKD-EPI 2020 equation without adjustment for rac e; it has not been validated in women. Calcium 8.3 (L) 8.4 - 10.5 03/22/2022 2:54 PM [facility]ITAL mg/dL T LABORATORY Glucose 208 (H) 70 - 99 mg/dL 03/22/2022 2:54 PM [facility] Protein, Total 5.0 (L) 6.0 - 8.0 03/22/2022 2:54 PM [facility] g/dL CDT LABORATORY Albumin 2.9 (L) 3.5 - 5.0 03/22/2022 2:54 PM [facility] g/dL CDT LABORATORY Alkaline Phosphatase 81 40 - 150 IU/L 03/22/2022 2:54 PM [facility] CDT LABORATORY Aspartate 16 10 - 40 IU/L 03/22/2022 2:54 PM [facility] Aminotransferase CDT LABORATORY Alanine Aminotransferase 13 6 - 40 IU/L 03/22/2022 2: 54 PM [facility] Bilirubin, Total 0.5 0.2 - 1.2 03/22/2022 2:54 PM [facility] mg/dL CDT LABORATORY Specimen Anatomical Collection Method / Collection Time Recei eloina Time (Source) Location / Volume Laterality Blood BLOOD SPECIMEN / Venipuncture / 03/22/2022 2:28 2021 2:34 Unknown Unknown PM CDT PM CDT Narrative [facility] - 2 2:54 PM CDT [...] Organization Address City/State/ZIP Code Phon e Number [facility] [address] [place] [address] (ABNORMAL) HEMOGRAM (03/22/2022 2:28 PM CDT) P athologist Signature WBC 56.7 (HH) 3.2 - 11.0 03/22/2022 [facility] 10*9/L 3:[address] [facility] RBC 3.42 (L) 4.14 - 03/22/2022 [facility] 5.76 3:[address] [facility] 10*12/L LABORATORY HGB 10.0 (L) 12.9 - 03/22/2022 [facility] 16.9 g/dL 3:22 PM CDT HOSPITAL LABORATORY HCT 31.3 (L) 38.4 - 03/22/2022 [facility] 49.7 % 3:22 PM CDT HOSPITAL LABORATORY MCV 91.5 81.4 - 03/22/2022 [facility] 99.0 fL 3:22 PM T HOSPITAL LABORATORY MCH 29.2 26.7 - 03/22/2022 [facility] 33.1 pg 3:22 PM CDT HOSPITAL LABORATORY MCHC 31.9 31.6 - 03/22/2022 [facility] 35.5 g/dL 3:22 PM CDT HOSPITAL LABORATORY RDW 14.6 11.3 - 03/22/2022 [facility] 14.6 % 3:22 PM CDT HOSPITAL LABORATORY PLT 193 130 - 375 03/22/2022 [facility] 10*9/L 3:22 PM T HOSPITAL LABORATORY Specimen Anatomical Collection Method / Collection Time Recei eloina Time (Source) Location / Volume Laterality Blood BLOOD SPECIMEN / Venipuncture / 03/22/2022 2:28 2021 2:34 Unknown Unknown PM CDT PM CDT Yoko Johnson MD EC HEMATOLOGY ORDERABLES Performing Organization Address City/State/ZIP Code Phon e Number [facility] [address] [place] [address] TYPE AND SCREEN (03/22/2022 2:28 PM CDT) P athologist Signature ABO Group O 03/22/2022 [facility] 3:12 PM CDT HOSPITAL BLOOD BANK RH Type POS 03/22/2022 [facility] 3:12 PM CDT HOSPITAL BLOOD BANK Antibody Screen NEG 03/22/2022 [facility] 3:12 PM CDT HOSPITAL BLOOD BANK Specimen Anatomical Collection Method / Collection Time Recei eloina Time (Source) Location / Volume Laterality Blood BLOOD SPECIMEN / Venipuncture / 03/22/2022 2:28 2021 2:34 Unknown Unknown PM CDT PM CDT Yoko Johnson MD EC BLOOD BANK ORDERABLES Performing Organization Address City/[facility]/ZIP Code Phon e Number [facility] BLOOD BANK [address] [facility] [place] [address] (ABNORMAL) GLUCOSE, METER (03/22/2022 2:25 PM CDT) athologist Signature Glucose Meter 183 (H) 70 - 99 03/22/2022 [facility] mg/dL 4:07 PM T [facility] Specimen Anatomical Collection Method Collection Time Receive d Time (Source) Location / / Volume Laterality Blood BLOOD SPECIMEN / 03/22/2022 2:25 PM 03/22 4:07 Unknown CDT PM CDT Yoko Johnson MD EC CHEMISTRY ORDERABLES Performing Organization Address City/State/ZIP Code Phon e Number [facility] [address] [place], [place] [address] documented in this encounter Visit Diagnoses Diagnosis Hemorrhagic shock (HCC) - Primary Other shock without mention of trauma Hemorrhagic shock (HCC) Other shock without mention of trauma BRBPR (bright red blood per rectum) Hemorrhage of rectum and anus Hospital discharge follow-up Other follow-up examination BRBPR (bright red blood per rectum) Hemorrhage of rectum and anus documented in this encounter Administered Medications Inactive Administered Medications Medication Order MAR Action Action Date Dose Rate Site acetaminophen (Tylenol) tablet Given 03/24/2022 12:09 AM CHARGE LOADER 500 mg 500 mg 500 mg, Oral, EVERY 4 HOURS NEEDED, Starting on Thu03/22/22 at 2055, Until Thu03/25/22 at 2143, Mild Pain (1-3) Given 03/23/2022 11:28 AM CHARGE LOADER 500 mg Given 03/22/2022 9:19 PM CDT 500 mg aspirin chewable tablet 81 mg Given 03/25/2022 8:02 AM CHARGE LOADER 81 mg 81 mg, Chew, ONCE DAILY, First dose on Thu03/25/22 at 0900, Until Discontinued atorvaSTATin (Lipitor) tablet 20 mg Given 03/24/2022 5:05 PM CHARGE LOADER 20 mg 20 mg, Oral, WITH SUPPER, First dose on Thu03/24/22 at 1800, Until Discontinued carvedilol (Coreg) tablet 12.5 mg Given 03/25/2022 4:35 PM CHARGE LOADER 12.5 mg 12.5 mg, Oral, 2 TIMES DAILY WITH MEALS, First dose (after last modification) on Thu03/25/22 at 0830, Until Discontinued Given 03/25/2022 8:02 AM CHARGE LOADER 12.5 mg cefTRIAXone (Rocephin) 1 g in 0.9% New Bag 03/23/2022 6:43 AM CHARGE LOADER 1 g 100 mL/hr sodium chloride 50 mL (ADD-VANTAGE) 1 g, Intravenous, at 100 mL/hr, ONCE DAILY, First dose on Thu03/23/22 at 0600, Until Discontinued, Indication? suspected infection, Antibiotic Indication for Use: Intra-Abdominal Infection dextrose (D50) 50 % injection 12.5-25 g 12.5-25 g, IV Push, NEEDED, Starting on Thu03/22/22 at 1459, Until Thu03/25/22 at 2143, Hypoglycemia docusate sodium (Colace) capsule 100 mg Given 03/25/2022 8:02 AM CHARGE LOADER 100 mg 100 mg, Oral, ONCE DAILY, First dose on Thu03/24/22 at 1300, Until Discontinued Given 03/24/2022 2:27 PM CHARGE LOADER 100 mg glucagon (diagnostic) (Glucagen) injecti on 1 mg 1 mg, Intramuscular, NEEDED, Starting on Thu03/22/22 at 1459, Until Thu03/25/22 at 2143, Hypoglycemia glucose (Glutose) 40 % gel 37.5-112.5 g 37.5-112.5 g, Oral, NEEDED, Starting on Thu03/22/22 at 1459, Until Thu03/25/22 at 2143, Hypoglycemia insulin aspart (NovoLOG) injection Given 03/25/2022 1:10 PM CHARGE LOADER 1 Units (CORRECTION DOSE) 0-20 Units 0-20 Units, Subcutaneous, WITH MEALS AND BEDTIME, First dose (after last modification) on Thu03/24/22 at 1200, Until Discontinued, Blood Glucose Target - Daytime (mg/dL): 160, Blood Glucose Target - Bedtime and Overnight (mg/dL): 160, Hyperglycemia Correction Factor - Daytime: 30, Hyperglycemia Correction Factor - Bedtime and Overnight: 30 Given 03/25/2022 7:59 AM CHARGE LOADER 2 Units lactated ringers BOLUS BAG 250 mL New Bag 03/22/2022 9:20 PM CDT 250 mL 1000 mL/hr 250 mL, Intravenous, at 1,000 mL/hr, ONCE, 1 dose, On Thu03/22/22 at 2100 lactated ringers infusion 1,000 mL New Bag 03/22/2022 9:20 PM CDT 1,000 mL 75 mL/hr 1,000 mL, Intravenous, at 75 mL/hr, ONCE, 1 dose, On 03/22/22 at 2100 lactated ringers infusion 500 mL New Bag 03/23/2022 5:00 PM CHARGE LOADER 500 mL 1000 mL/hr 500 mL, Intravenous, at 1,000 mL/hr, ONCE, 1 dose, On 03/23/22 at 1700 metoprolol tartrate (Lopressor) tablet 2 5 mg Given 03/25/2022 1:05 AM CHARGE LOADER 25 mg 25 mg, Oral, ONCE, 1 dose, On 03/25/22 at 0130 metroNIDAZOLE (Flagyl) infusion 500 New Bag 03/23/2022 5:53 AM CHARGE LOADER 500 mg 200 mL/hr mg 500 mg, Intravenous, at 200 mL/hr, EVERY 8 HOURS, First dose on 03/23/22 at 0600, Until Discontinued, Indication? suspected infection, Antibiotic Indication for Use: Intra-Abdominal Infection midodrine (Proamatine) tablet 10 mg Given 03/23/2022 9:05 PM CHARGE LOADER 10 mg 10 mg, Oral, 2 TIMES DAILY, First dose on 03/23/22 at 2100, Until Discontinued norepinephrine (Levophed) Rate/Dose Change 03/24/2022 5:30 AM 2 mcg /min 7.5 mL/hr 16 mcg/mL in sodium CHARGE LOADER chloride 0.9% infusion 0-30 mcg/min (0-112.5 mL/hr), Intravenous, Titrated, Starting on 03/22/22 at 2230, Until 03/24/22 at 0945 Rate/Dose Change 03/24/2022 3:45 AM CHARGE LOADER 4 mcg/min 15 mL/hr Restarted 03/24/2022 2:15 AM CHARGE LOADER 2 mcg/min 7.5 mL/hr Rate/Dose Change 03/23/2022 11:00 PM CHARGE LOADER 2 mcg/min 7.5 mL/hr Rate/Dose Change 03/23/2022 10:15 PM CHARGE LOADER 4 mcg/min 15 mL/hr New Bag 03/23/2022 9:57 PM CHARGE LOADER 2 mcg/min 7.5 mL/hr Rate/Dose Change 03/23/2022 10:33 AM CHARGE LOADER 2 mcg/min 7.5 mL/hr Rate/Dose Change 03/23/2022 10:26 AM CHARGE LOADER 4 mcg/min 15 mL/hr Rate/Dose Change 03/23/2022 8:29 AM CHARGE LOADER 6 mcg/min 22.5 mL/hr New Bag 03/23/2022 8:07 AM CHARGE LOADER 8 mcg/min 30 mL/hr Rate/Dose Change 03/23/2022 7:00 AM CHARGE LOADER 10 mcg/min 37.5 mL/hr Rate/Dose Change 03/23/2022 5:15 AM CHARGE LOADER 8 mcg/min 30 mL/hr Rate/Dose Change 03/23/2022 2:45 AM CHARGE LOADER 6 mcg/min 22.5 mL/hr Rate/Dose Change 03/23/2022 2:30 AM CHARGE LOADER 4 mcg/min 15 mL/hr Rate/Dose Change 03/23/2022 12:30 AM CDT 2 mcg/min 7.5 mL/hr Rate/Dose Change 03/23/2022 12:15 AM CDT 4 mcg/min 15 mL/hr Rate/Dose Change 03/23/2022 12:00 AM CDT 6 mcg/min 22.5 mL/hr Rate/Dose Change 03/22/2022 11:45 PM CDT 8 mcg/min 30 mL/hr Rate/Dose Change 03/22/2022 11:15 PM CDT 10 mcg/min 37.5 mL/hr Rate/Dose Change 03/22/2022 11:00 PM CDT 8 mcg/min 30 mL/hr Rate/Dose Change 03/22/2022 10:45 PM CDT 6 mcg/min 22.5 mL/hr Rate/Dose Change 03/22/2022 10:30 PM CDT 4 mcg/min 15 mL/hr New Bag 03/22/2022 10:25 PM CDT 2 mcg/min 7.5 mL/hr ondansetron (Zofran ODT) disintegrating tablet 4 mg 4 mg, Oral, EVERY 6 HOURS NEEDED, Starting on Sat 1 05/22/21 at 1443, Until Thu03/25/22 at 2143, Nausea, Vomiting ondansetron (Zofran) injection 4 mg 4 mg, IV Push, EVERY 6 HOURS NEEDED, Starting on 03/22/22 at 1443, Until 03/25/22 at 2143, Nausea, Vomiting pantoprazole (Protonix) injection 40 mg Given 03/24/2022 8:36 AM CHARGE LOADER 40 mg 40 mg, IV Push, ONCE DAILY, First dose on Thu03/23/22 at 1100, Until Discontinued Given 03/23/2022 11:28 AM CHARGE LOADER 40 mg pantoprazole (Protonix) tablet 40 mg Given 03/25/2022 4:36 PM CHARGE LOADER 40 mg 40 mg, Oral, DAILY AT 1700, First dose on 03/24/22 at 1700, Until Discontinued Given 03/24/2022 5:06 PM CHARGE LOADER 40 mg perflutren lipid microsphere (Definity) Given 03/23/2022 12:28 P M CHARGE LOADER 1.3 mL injection 1.3 mL 1.3 mL, IV Push, ONCE, 1 dose, On Thu03/23/22 at 1230 polyethylene glycol (GoLYTELY) 236 g Given 03/23/2022 9:34 AM CS T 4,000 mL solution 4,000 mL 4,000 mL, Oral, ONCE, 1 dose, On 03/23/22 at 0830 sodium chloride 0.9% IV LINE FLUSH (NS) BAG 30 mL 30 mL, IV Flush, SEE ADMINISTRATION INST RUCTIONS, Starting on 03/22/22 at 1443, Until Tu03/25/22 at 2143, Other, priming/flush fluid vasopressin (VASOSTRICT) 0.2 New Bag 03/23/2022 5:52 AM CHARGE LOADER 0. 04 Units/min 12 mL/hr Units/mL in sodium chloride 0.9% (NS) infusion 0-0.04 Units/min (0-12 mL/hr), Intravenous, Titrated, Starting on 03/22/22 at 2330, Until Thu03/23/22 at 1059 New Bag 03/22/2022 11:35 PM CDT 0.04 Units/min 12 mL/hr vasopressin (VASOSTRICT) 0.2 New Bag 03/23/2022 10:50 PM CHARGE LOADER 0 .04 Units/min 12 mL/hr Units/mL in sodium chloride 0.9% (NS) infusion 0.04 Units/min (12 mL/hr), Intravenous, CONTINUOUS, Starting on 03/23/22 at 2300, Until Thu03/24/22 at 0945 documented in this encounter Discontinued Medications Medication Sig Discontinue Reason Start Date End Date apixaban (Eliquis) 5 MG Take 5 mg by mouth Other 03/25/2022 tablet two times a day. documented as of this encounter Historical Medications This list may reflect changes made after this encounter. Medication Sig Dispensed Refills Start Date End Date atorvaSTATin (Lipitor) 20 Take 20 mg by 0 MG tablet mouth one time a day. omeprazole (PriLOSEC) 20 MG Take 20 mg by 0 delayed-release capsule mouth one time a day. Take before meals. Do not crush. valsartan (Diovan) 320 MG Take 320 mg by 0 tablet mouth one time a day. carvedilol (Coreg) 25 MG Take 25 mg by 0 tablet mouth two times a day with meals. spironolactone (Aldactone) Take 25 mg by 0 25 MG tablet mouth one time a day. empagliflozin (Jardiance) Take 25 mg by 0 25 MG Tablet mouth one time a day. Do not chew or crush. apixaban (Eliquis) 5 MG Take 5 mg by mouth 0 03/25/2022 tablet two times a day. added in this encounter Active and Recently Administered Medications Due to Daylight Saving Time, this section may contain times in both CDT and CHARGE LOADER. Scheduled Medication Order 03/23/2022 03/24/2022 03/25/2022 aspirin chewable tablet 81 mg 08 (Given - Provider: Slime Epps RN) 81 mg, Chew, ONCE DAILY, First dose on Thu03/25/22 at 0900, Until Discontinued atorvaSTATin (Lipitor) tablet 20 mg 1705 (Given - Provider: Jomar Wilson RN) 20 mg, Oral, WITH SUPPER, First dose on Thu03/24/22 at 1800, Until Discontinued carvedilol (Coreg) tablet 12.5 mg 0802 (Given - Provider: Slime Epps RN)1635 (Given - Provider: Jomar Wilson RN) 12.5 mg, Oral, 2 TIMES DAILY WITH MEALS, First dose (after last modification) on Thu03/25/22 at 0830, Until Discontinued cefTRIAXone (Rocephin) 1 g in 0.9% sodiu m chloride 50 mL (ADD-VANTAGE) (CANCELED) 0643 (New Bag - Provider: Antony hernandez RN)0713 (Stopped - Provider: Franchesca Leo RN) 1 g, Intravenous, at 100 mL/hr, ONCE BRANDY LY, First dose on Thu03/23/22 at 0600, Until Discontinued, Indication? suspected infection, Antibiotic Indication for Use: Intra-Abdominal Infection docusate sodium (Colace) capsule 100 mg 1427 (Given - Provider: Jomar Wilson, HOLLY) 0802 (Given - Provider: Slime shearer RN) 100 mg, Oral, ONCE DAILY, First dose on Thu03/24/22 at 1300, Until Discontinued insulin aspart (NovoLOG) injection (CORRECTION DOSE) 0-20 Un its 1150 (Not Given - Provider: Jomar Wilson, HOLLY - Reason: Order Parameters not met)1709 (Not Given - Provider: Jomar Wilson, HO[place] - Reason: Order Parameters not met)2208 (Not Given - Provider: Eric Lamas RN - Reason: Order Parameters not met) 0759 (Given - Provider: Slime Epps, HOLLY)1310 (Given - Provider: Slime Epps, HOLLY) 0-20 Units, Subcutaneous, WITH MEALS AND BEDTIME, First dose (after last modification) on Thu03/24/22 at 1200, Until Discontinued, Blood Glucose Target - Daytime (mg/dL): 160, Blood Glucose Target - Bed time and Overnight (mg/dL): 160, Hypergl ycemia Correction Factor - Daytime: 30, Hyperglycemia Correction Factor - Bedtime and Overnight: 30 lactated ringers infusion 500 mL (COMPLETED) 1700 (New Bag - Provider: Franchesca Leo, HO[place]) 500 mL, Intravenous, at 1,000 mL/hr, ONCE, 1 dose, On Thu 2 at 1700 metoprolol tartrate (Lopressor) tablet 25 mg (COMPLETED) 010 (Given - Provider: Nathan Peacock, HOLLY) 25 mg, Oral, ONCE, 1 dose, On Thu03/25/22 at 0130 metroNIDAZOLE (Flagyl) infusion 500 mg (CANCELED) 0553 (New Bag - Provider: Antony Sherman, HOLLY)06 (Stopped - Provider: Antony Sherman RN) 500 mg, Intravenous, at 200 mL/hr, EVERY 8 HOURS, First dose on Thu03/23/22 at 0600, Until Discontinued, Indication? suspected infection, Antibiotic Indication for Use: Intra-Abdominal Infection midodrine (Proamatine) tablet 10 mg (CANCELED) 2105 (G iven - Provider: Antony Sherman RN) 10 mg, Oral, 2 TIMES DAILY, First dose o n [place] 03/23/22 at 2100, Until Discontinued pantoprazole (Protonix) injection 40 mg (CANCELED) 112 8 (Given - Provider: Franchesca Leo, HO[place]) 0836 (Given - Provider: Jomar Wilson, [place]) 40 mg, IV Push, ONCE DAILY, First dose o n [place] 03/23/22 at 1100, Until Discontinued pantoprazole (Protonix) tablet 40 mg 170 6 (Given - Provider: Jomar Wilson, [place]) 1636 (Given - Provider: Jomar Wilson, [place]) 40 mg, Oral, DAILY AT 1700, First dose o n [facility] 03/24/22 at 1700, Until Discontinued perflutren lipid microsphere (Definity) injection 1.3 mL (COMPLETED) 1228 (Given - Provider: Summer Olsen - Comment: lot [id number]) 1.3 mL, IV Push, ONCE, 1 dose, On [place] 03/23/22 at 1230 polyethylene glycol (GoLYTELY) 236 g solution 4,000 mL (COMPLETED) 0934 (Given - Provider: Franchesca Leo, [place]) 4,000 mL, Oral, ONCE, 1 dose, On [place] 03/23/22 at 0830 Continuous Medication Order 03/23/2022 03/24/2022 03/25/2022 norepinephrine (Levophed) 16 mcg/mL in sodium chloride 0.9% infusion (CANCELED) 0000 (Rate/Dose Change - Provider: Antony Sherman RN)0015 (Rate/Dose Change - Provider: Antony Sherman RN)0030 (Rate/Dose Change - Provider: Antony Sherman RN)0230 (Rate/Dose Change - Provider: Antony Sherman RN) 0100 (Stopped - Provider: Antony Sherman RN)0215 (Restarted - Provider: Antony Sherman RN)0345 (Rate/Dose Change - Provider: Antony Sherman RN)0530 (Rate/Dose Change - Provider: Antony Sherman RN)0615 (Stopped - Provider: Antony Sherman RN) 0-30 mcg/min (0-112.5 mL/hr), Intravenou s, Titrated, Starting on 03/22/22 at 2230, Until 03/24/22 at 0945 0245 (Rate/Dose Change - Provider: Antony Sherman RN)0515 (Rate/Dose Change - Provider: Antony Sherman RN)0700 (Rate/Dose Change - Provider: Antony Sherman RN)0807 (New Bag - Provider: Franchesca Leo RN) 0829 (Rate/Dose Change - Pro vider: Franchesca Leo RN)1026 (Rate/Dose Change - Provider: Franchesca Leo RN)1033 (Rate/Dose Change - Provider: Franchesca Leo RN)1103 (Stopped - Provider: Franchesca Leo RN)2157 (New Bag - Provider: Antony Sherman RN) 2215 (Rate/Dose Change - Pro vider: Antony Sherman RN)2300 (Rate/Dose Change - Provider: Antony Sherman RN) vasopressin (VASOSTRICT) 0.2 Units/mL in sodium chloride 0.9% (NS) infusion (CANCELED) 0552 (New Bag - Provider: Antony hernandez RN)1124 (Stopped - Provider: Franchesca Leo RN) 0-0.04 Units/min (0-12 mL/hr), Intraveno us, Titrated, Starting on 03/22/22 at 2330, Until 03/23/22 at 1059 vasopressin (VASOSTRICT) 0.2 Units/mL in sodium chloride 0.9% (NS) infusion (CANCELED) 2250 (New Bag - Provider: Antony Sherman RN) 0615 (S topped - Provider: Antony Sherman RN) 0.04 Units/min (12 mL/hr), Intravenous, CONTINUOUS, Starting on 03/23/22 at 2300, Until 03/24/22 at 0945 PRN Medication Order 03/23/2022 03/24/2022 03/25/2022 acetaminophen (Tylenol) tablet 500 mg 1128 (Given - Provider : Franchesca Leo RN) 0009 (Given - Provider: Antony Sherman RN) 500 mg, Oral, EVERY 4 HOURS NEEDED, S tarting on 03/22/22 at 2055, Until Thu03/25/22 at 2143, Mild Pain (1-3) dextrose (D50) 50 % injection 12.5-25 g 12.5-25 g, IV Push, NEEDED, Starting on 03/22/22 at 1459, Until Thu03/25/22 at 214, Hypoglycemia glucagon (diagnostic) (Glucagen) injection 1 mg 1 mg, Intramuscular, NEEDED, Starting on 03/22/22 at 1459, Until Thu03/25/22 at 214, Hypoglycemia glucose (Glutose) 40 % gel 37.5-112.5 g 37.5-112.5 g, Oral, NEEDED, Starting on 03/22/22 at 1459, Until Thu03/25/22 at 2142, Hypoglycemia ondansetron (Zofran ODT) disintegrating tablet 4 mg(Linked Group 1) 4 mg, Oral, EVERY 6 HOURS NEEDED, Sta rting on 03/22/22 at 1443, Until Thu03/25/22 at 2142, Nausea, Vomiting ondansetron (Zofran) injection 4 mg(Linked Group 1) 4 mg, IV Push, EVERY 6 HOURS NEEDED, Starting on 03/22/22 at 1443, Until Thu03/25/22 at 2142, Nausea, Vomiting sodium chloride 0.9% IV LINE FLUSH (NS) BAG 30 mL 30 mL, IV Flush, SEE ADMINISTRATION INST RUCTIONS, Starting on 03/22/22 at 1443, Until Thu03/25/22 at 2143, Other, priming/flush fluid Linked Groups Order Group 1: ondansetron (Zofran) injection 4 mgJump to med 4 mg, IV Push, EVERY 6 HOURS NEEDED, Starting on 03/22/22 at 1443, Until Thu03/25/22 at 2143, Nausea, Vomiting Or ondansetron (Zofran ODT) disintegrating tablet 4 mgJump to med 4 mg, Oral, EVERY 6 HOURS NEEDED, Sta rting on 03/22/22 at 1443, Until Thu03/25/22 at 2143, Nausea, Vomiting documented in this encounter Orders Medications Ordered That Might Not Have Count Last Ord ered Date First Ordered Date Been Administered carvedilol (Coreg) tablet 12.5 mg 1 03/24/2022 dextrose (D50) 50 % injection 12.5-25 g 1 03/22/20 fentaNYL (Sublimaze) injection 1 03/22/2022 glucagon (diagnostic) (Glucagen) injection 1 03/22 1 mg glucose (Glutose) 40 % gel 37.5-112.5 g 1 03/22/20 heparin (porcine) injection 1 03/22/2022 insulin aspart (NovoLOG) injection 1 03/22/2022 (CORRECTION DOSE) 0-20 Units iohexol (Omnipaque) 350 MG/ML 1 03/22/2022 midazolam (Versed) injection 1 03/22/2022 ondansetron (Zofran ODT) disintegrating 1 03/22/20 tablet 4 mg ondansetron (Zofran) injection 4 mg 1 03/22/2022 sodium chloride 0.9% IV LINE FLUSH (NS) 1 03/22/20 BAG 30 mL Admission Count Last Ordered Date First Ordered Date ADMIT TO INPATIENT 1 03/22/2022 Transfer Count Last Ordered Date First Ordered Date TRANSFER PATIENT 2 03/24/2022 Discharge Count Last Ordered Date First Ordered Date DISCHARGE PATIENT 1 03/25/2022 Consult Count Last Ordered Date First Ordered Date IP CONSULT TO GI 1 03/23/2022 32H IP CONSULT TO INTERVENTIONAL 1 03/22/2022 RADIOLOGIST PHARMACIST MEDICATION RECONCILIATION 1 03/22/2022 PHARMACY COMMUNICATION Count Last Ordered Date First O rdered Date MEDICATION NOT INDICATED 1 03/23/2022 Case Request Count Last Ordered Date First Ordered Date SURGICAL CASE REQUEST 1 03/23/2022 documented in this encounter
--- OUTSIDE RECORDS SUMMARY | 2022-03-26 22:18 | XMS_ITS | Encounter Summary ---
:1935 Author Organization [employer] Address [address] [address] Phone Care Team Providers Name Role Phone Unavailable Primary Care Provider Unavailable Reason for Visit Auth/Cert (Routine) Specialty Diagnoses / Procedures Referred By Contact Refer red To Contact Diagnoses GI bleed Yoko Johnson MD [address] [place] [phone] Referral ID Status Reason Start Date Expiration Date Visits Requ ested Visits Authorized [id number] 1 1 Encounter Details Date Type Department Care Team Description 03/23/[address] [place] [address] Kamlesh Prieto [facility] DO [place] [address] [place] [address] [facility] [phone] [place] [address] (Wo rk) Surgery Details Date/Time Status Location OR Service Patient Case Case Traum a Class Class Type Case? 03/23/[address] Endo Gastroenterology Inpatient 5:45 PM ENDOSCOPY Travel Panel 1 Procedure LRB Anes Op Region Wound Class Commen ts COLONOSCOPY DIAGNOSTIC N/A MAC Colon Clean Contami nated Surgeon Surgeon Role Service Panel Kamlesh Prieto DO Primary Gastroenterology 1 documented in this encounter Social History Tobacco [...] Sign Reading Time Taken Comments Blood Pressure 110/43 03/23/2022 5:00 PM FIELD SERVICE REPRESENTATIVE Pulse 73 03/23/2022 6:00 PM FIELD SERVICE REPRESENTATIVE Temperature 36.7 ??C (98.1 ??F) 03/23/2022 10:45 AM FIELD SERVICE REPRESENTATIVE Respiratory Rate 27 03/23/2022 6:00 PM FIELD SERVICE REPRESENTATIVE Oxygen Saturation 96% 03/23/2022 6:00 PM FIELD SERVICE REPRESENTATIVE Inhaled Oxygen Concentration - - Weight 88.9 kg (195 lb 15.8 oz) 03/23/2022 4:29 AM FIELD SERVICE REPRESENTATIVE Height 174 cm (5' 8.5) 03/22/2022 2:30 [...] is going to follow up with his research professor at [place] for Watchman Procedure. Imaging: Fluoro for possible [...] prior to discharge. Kristofer was discharged from [facility] to Home . Kristofer was seen and [...] Routine Referral Type: Office Visit Referral Location: [facility] Referred to Provider: UNLISTED, PROVIDER [...] date of discharge: Less than 30 minutes. D SERVICE REPRESENTATIVE documented in this encounter Discharge Instructions Tamiamary Jane Reji RN - 03/22/2022 3:19 PM CDT [facility] Interventional Radiology Patient Discharge Instructions Angiogram [...] your procedure, please call the IR coordinatorat [phone] M-F from 8:00 am - 4:00pm. If after hours, call Ask a Nurse at [phone] and press ???3?? to have a nurse return your phonecall (evenings, weekends, holidays) Call 911 for life threatening emergencies AttachmentsThe following attachments cannot be sent through Care Everywhere. Shock: First Aid (Japanese)Gastrointestinal (GI) Bleeding, When You Have (Japanese)Understanding Pouchitis (Japanese)documented in this encounter Medications at Time of [...] Departure Means Destination Comments Home and/or Self Retirement documented in this encounter Progress Notes Jomar [...] 5 MG tablet Commonly known as: Eliquis D SERVICE REPRESENTATIVE Shirley Dewey APRN, CNP - 03/25/2022 10:23 [...] N/A 03/23/2022 Procedure: COLONOSCOPY DIAGNOSTIC; Surgeon: Kamlesh Prieto DO; Location: [facility] ENDOSCOPY ??? OTHER SURGICAL HISTORY Right 03/22/2022 Procedure: Mesenteric angiogram; Surgeon: Yair Jones MD; Location: [facility] INTERVENTIONAL RADIOLOGY FH: No family history on [...] time a day. Yes Abstract, ProviderMD Allergies: Allergies Allergen Reactions ??? Amlodipine Other [...] the past 24 hour(s)). Shirley Dewey APRN, CYDNEY [address] Gastroenterology D SERVICE REPRESENTATIVE Ban Gutiérrez RN - 03/24/2022 11:50 AM CST Discharge planning daily update Anticipated discharge level of care per IDT: TBD Barriers for discharge planning: none identified to date Additional information: none Discharge planning updates provided to care team. Ban Gutiérrez, MSN, RN, Agricultural Engineering Technologist P: [phone]; F: [phone]; Pager: [phone] D SERVICE REPRESENTATIVE Mere Ewing APRN, CNP - 03/24/2022 7:45 AM CST [...] colon), and cholecystectomy who presented to [facility] on 03/22 with bright red blood per rectum with CT angio demonstrating active contrast extravasation in the descending and proximal sigmoid colon. He was transferred to [facility] by ground due to being stable and [...] as above. Will refer him to his Box Car Bracer at [place] to discuss Watchman procedure (appointment placed in DC navigator) - for now will start ASA [...] prn Note and assessment/ plan discussed with [facility] Shearer Dr. Jones Critical care: 45 minutes Patient [...] Acute blood loss anemia Mere Ewing APRN, [employer] Critical Care Medicine D SERVICE REPRESENTATIVE Glynn Jones MD - 03/24/2022 7:44 AM CST Critical Care Progress Note Glynn Jones MD 03/24/2022 Daily progress note A detailed note pertaining to patient's prior history, ongoing hospital care and outlining the entirety of the plan discussed with the team and myself during rounds written today by Mere Ewing APRN, CNP. SUBJECTIVE Status post colonoscopy last evening and [...] real-time polymerase chain reaction (PCR) on the Daily[employer] GeneXpert System. Results should be used in [...] for this test can be found at: https://www.fda.gov/medical-devices/txxnrjivt-boxouloulv-zjrwdhc-devices/emergen yb-psc-kstzqgnkraimmr ADMIT MRSA, MOLECULAR DETECTION Specimen: Nares; Swab Result Value Ref Range MRSA Not Detected Not Detected Narrative Test results must be interpreted within the context of all relevant clinical and laboratory findings. Test performance has not been evaluated in patients less than two (2) yeas of age. Method Information This test uses the DailyBurn Xpert MRSA NxG assay to detect methicillin-resistant Staphylococcus aureus (MRSA) DNA by real-time polymerase chain reaction (PCR) on the [employer] Instrument System.The Xpert MRSA NxG test detects [...] and proximal sigmoid colon was transferred to [facility] and underwent CTA per IR for embolization [...] Jones MD Pulmonary and Critical Care Medicine [facility] [address] [facility] [address] D SERVICE REPRESENTATIVE Glynn Jones MD - 03/23/2022 12:27 PM [...] CELLS Result Value Ref Range Leukoreduced RBC [id number] issued 03/23/22 08:05 LLM2 Unit ABO Type O Unit Rh Type POS Unit Number [id number] Unit Status issued Unit Barcoded Product Code [id number] Narrative Type and Screen required for all [...] Nicki Urine Appearance Clear Clear Urine Specific [place] 1.015 1.003 - 1.035 Urine pH 5.5 [...] and proximal sigmoid colon was transferred to [facility] and underwent CTA per IR for embolization [...] Jones MD Pulmonary and Critical Care Medicine [facility] [address] [facility] [address] Ban Larkin RN - 03/23/2022 8:59 AM CST [facility] AD[facility]ION NOTE: Readmission: No LACE score: 4 EMR reviewed, patient was independent prior to admission. Pt resides at home with family members in [place] [address]. Transfer from [facility] to [facility]. Services prior to admission include: None noted per EMR review. CM following and available to assist with discharge planning needs as they arise, or if patient/family/MD request a CM consult. 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 He was transferred to [facility] by ground dueto being stable and went [...] prn Note and assessment/ plan discussed with [facility] And Shearer Dr. Jones Critical care: 45 minutes Patient [...] Acute blood loss anemia Mere Ewing APRN, CYDNEY Critical Care Medicine D SERVICE REPRESENTATIVE Antony Sherman RN - 03/23/2022 1:10 AM CDT Documentation [...] Oxygen Flow Rate: 0 Antony Sherman RN D SERVICE REPRESENTATIVE Antony Sherman RN - 03/22/2022 11:13 PM CDT 1900: Noted hypotension during bedside report. Recycled blood pressure improved, within ordered limits. 2100: Continued hypotension. Provider notified. 250 mL bolus LR ordered with 1 L LR running at 75mL/hr to follow. 2200: Continued hypotension, provider notified. Levophed ordered. 2300: Continued hypotension, provider notified. Vaso ordered. HGB and lactic labs drawn. 0015: Bloody stool, provider notified. 0520: WBC critical at 78.1. Provider notified, blood cultures drawn, anti- infectives ordered and started. Antony Sherman RN 03/23/2022 7:01 AM Franchesca Tracy RN - 03/22/2022 2:30 PM CDT To [...] shows active bleeding at descending colon/sigmoid junction. Blade garcia. History of colon resection. There is no [...] colon), and cholecystectomy who presented to [facility] on 03/[address] angio demonstrating active contrast extravasation in the descending and proximal sigmoid colon. He was transferred to [facility] by ground due to being stable and [...] one time a day. Yes Abstract, Provider, carvedilol (Coreg) 25 MG tablet Take 25 mg by mouth two times a day with meals. Yes Abstract, Provider, valsartan (Diovan) 320 MG tablet Take 320 mg by mouth one time a day. Yes Abstract, Provider, omeprazole (PriLOSEC) 20 MG delayed-release capsule Take 20 mg by mouth one time a day. Take before meals. Do not crush. Yes Abstract, Provider, atorvaSTATin (Lipitor) 20 MG tablet Take 20 mg by mouth one time a day. Yes Abstract, Provider, Allergies: No Known Allergies Physical Exam Vitals: [...] Nicki Urine Appearance Clear Clear Urine Specific [place] 1.015 1.003 - 1.035 Urine pH 5.5 [...] recommended and/or treatment reccs Dr. Kamlesh Prieto [address] Gastroenterology Willam Hooks - 03/23/2022 10:18 AM CSTAssociated Order(s): PHARMACIST MEDICATION RECONCILIATION SCREEN HANDLER Medication History obtained by: Willam Gallegos Home medication list updated using: Patient [facility] hx Spoke with the patient? Yes Number [...] Thank you, Willam Gallegos 03/23/2022, 10:18 AM D SERVICE REPRESENTATIVE Yair Jones MD - 03/22/2022 4:21 PM CDTAssociated Order(s): 32H IP CONSULT TO INTERVENTIONAL RADIOLOGIST OPERATIVE PROCEDURE PROGRESS NOTE BRIEF POST-OP NOTE Pre-Op Diagnosis: GI bleed Post-Op Diagnosis: same Procedure(s): Mesenteric angiogram Anesthesia Type: Local anesthesia with sedation Findings: Selective SMA and ARA angiography shows no contrast extravasation. No embolization performed. Angioseal, right RETORT LOADER. Surgeon(s) and Role: * Yair Jones MD - Primary Estimated Blood Loss: Less than 50 ml Drains: None Specimen(s): No Specimens Collected Complications: iatrogenic proximal ARA dissection- flow limiting though remains patent and SMA collaterals intact Disposition: ICU See dictated operative report for full details. Implant(s): * No implants in log * Yair Jones MD documented in this encounter Miscellaneous Notes Care Plan - Nathan Peacock RN - 03/25/2022 2:04 AM CST Patient Goals: The patient centered goal for this shift:: stable Hgb (03/24/22 0800). Evaluation of patient goal progress appears to be slowly dropping. Problem: Cardiac/Cardiovascular Goal: Cardiovascular system functioning within defined limits Outcome: Progressing Flowsheets (Taken 03/24/20222354) Cardiac Care Plan: ??? Monitor vital signs, [...] within defined limits Outcome: Progressing Flowsheets (Taken 03/24/20222354) Gastrointestinal Care Plan: ??? Monitor percentage of each meal consumed ??? Assist with meals as needed ? ? Monitor I&O, WT and lab values Note: No BM overnight. Passing gas. Problem: Genitourinary Goal: Genitourinary system functioning within defined limits Outcome: Progressing Flowsheets (Taken 03/24/20222354) Genitourinary Care Plan: ??? Monitor intake/output and perform bladder scan as needed ??? Monitor urine characteristics Note: Increased urine frequency overnight, urine almost colorless. D SERVICE REPRESENTATIVE Care Plan - Antony Sherman RN - 03/24/2022 6:55 AM CST Patient Goals: The patient centered goal for this shift:: No bloody stools (03/23/22 2101). Evaluation of patient goal progress: met. Any goals not addressed individually are progressing as expected without changes in interventions. D SERVICE REPRESENTATIVE Brief Op Note - Kamlesh Prieto DO [...] Implant Name Type Inv. Item Serial No. Ticket Machine Operator Lot No. LRB No. Used Action CLIP HEMOSTASIS INSTINCT PLUS DISP [id number] - [id number] CLIP HEMOSTASIS INSTINCT PLUS DISP [id number] N/ACOOK [id number] N/A 2 Implanted Kamlesh Prieto DO D SERVICE REPRESENTATIVE Care Plan - Franchesca Leo RN - [...] Anxious at times, providing reassurance throughout day. D SERVICE REPRESENTATIVE External Patient Instuctions - Kamlesh Prieto DO [...] hours if this has not improved. Call [phone] or go to the Emergency Room if you develop any of the following: - Severe abdominal or chest pain - Persistent vomiting or vomiting with blood - Black, tarry stools or red blood per rectum - Chills and/or fever of 101.5 or above Your doctor recommends these additional instructions: None If you have any problems, you may contact your physician at [facility] . Kamlesh Prieto MD KAMLESH PRIETO DO 03/23/2022 6:50:16 PM This report has been signed electronically. D SERVICE REPRESENTATIVE Admission - Yoko Johnson MD - 03/22/2022 2:45 PM CDT Critical Care Admission Note Yoko Johnson MD 03/22/2022 History of present illness 86-year-old male transferred to [facility] ICU in [place] from [place] facility where he presentedearlier today while on his [...] stability, patient was transferred by ground to [facility] ICU in [place]. Past medical history Type 2 diabetes on oral medication. Stable CLL on no chemotherapy just surveillance according to patient Hypertension on 3 antihypertensives History of diverticulitis, s/p surgery 15 years ago Remote history of gallbladder surgery A. 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 Former smoker from the age of [...] on CTA from sigmoid colon. Admitted to [facility] ICU in [place] 03/22. Problem list and current medical management [...] anemia, lower GI bleed Yoko Johnson MD, [facility] Pul[facility] Critical Care documented in this encounter Plan of Treatment Pending Results Name Type Priority Associated Diagnoses Date/Ti me CULTURE, BLOOD Microbiology Routine 03/23/2022 5: 50 AM BACTERIAL FIELD SERVICE REPRESENTATIVE CULTURE, BLOOD Microbiology Routine 03/23/2022 5: 58 AM BACTERIAL FIELD SERVICE REPRESENTATIVE Scheduled Referrals Name Type Priority Associated Diagnoses Order S chedule IP DISCHARGE FOLLOW-UP REFERRAL Routine Hospital discharge Ordered: 03/24/2022 APPOINTMENTS follow-up documented as of this encounter Procedures Procedure Name Priority Date/Time Associated Comments Diagnosis GLUCOSE, METER Routine 03/25/2022 12:30 Results f or this PM FIELD SERVICE REPRESENTATIVE procedure are i n the results section. GLUCOSE, METER Routine 03/25/2022 7:47 AM Results for this FIELD SERVICE REPRESENTATIVE procedure are i n the results section. BASIC METABOLIC PANEL Routine 03/25/2022 4:04 AM Results for this FIELD SERVICE REPRESENTATIVE procedure are i n the results section. HEMOGLOBIN Timed 03/25/2022 4:04 AM Results f or this FIELD SERVICE REPRESENTATIVE procedure are i n the results section. WHITE BLOOD COUNT Routine 03/25/2022 4:04 AM Resu lts for this FIELD SERVICE REPRESENTATIVE procedure are i n the results section. MAGNESIUM Routine 03/25/2022 4:04 AM Results f or this FIELD SERVICE REPRESENTATIVE procedure are i n the results section. PHOSPHORUS Routine 03/25/2022 4:04 AM Results f or this FIELD SERVICE REPRESENTATIVE procedure are i n the results section. PLATELET COUNT Routine 03/25/2022 4:04 AM Results for this FIELD SERVICE REPRESENTATIVE procedure are i n the results section. EKG 12-LEAD Routine 03/25/2022 12:49 Results for this AM FIELD SERVICE REPRESENTATIVE procedure are i n the results section. GLUCOSE, METER Routine 03/24/2022 10:07 Results f or this PM FIELD SERVICE REPRESENTATIVE procedure are i n the results section. HEMOGLOBIN Timed 03/24/2022 8:02 PM Results f or this FIELD SERVICE REPRESENTATIVE procedure are i n the results section. GLUCOSE, METER Routine 03/24/2022 5:08 PM Results for this FIELD SERVICE REPRESENTATIVE procedure are i n the results section. HEMOGLOBIN Timed 03/24/2022 12:08 Results for this PM FIELD SERVICE REPRESENTATIVE procedure are i n the results section. GLUCOSE, METER Routine 03/24/2022 11:47 Results f or this AM FIELD SERVICE REPRESENTATIVE procedure are i n the results section. HEMOGLOBIN Timed 03/24/2022 5:48 AM Results f or this FIELD SERVICE REPRESENTATIVE procedure are i n the results section. WHITE BLOOD COUNT Routine 03/24/2022 5:48 AM Resu lts for this FIELD SERVICE REPRESENTATIVE procedure are i n the results section. PLATELET COUNT Routine 03/24/2022 5:48 AM Results for this FIELD SERVICE REPRESENTATIVE procedure are i n the results section. BASIC METABOLIC PANEL Routine 03/24/2022 3:01 AM Results for this FIELD SERVICE REPRESENTATIVE procedure are i n the results section. MAGNESIUM Routine 03/24/2022 3:01 AM Results f or this FIELD SERVICE REPRESENTATIVE procedure are i n the results section. PHOSPHORUS Routine 03/24/2022 3:01 AM Results f or this FIELD SERVICE REPRESENTATIVE procedure are i n the results section. HEMOGLOBIN Timed 03/23/2022 11:38 Results for this PM FIELD SERVICE REPRESENTATIVE procedure are i n the results section. GLUCOSE, METER Routine 03/23/2022 11:38 Results f or this PM FIELD SERVICE REPRESENTATIVE procedure are i n the results section. COLONOSCOPY DIAGNOSTIC 03/23/2022 6:09 PM Hemorrhagic shock FIELD SERVICE REPRESENTATIVE (HCC) BRBPR (bright red blood per rectum) HEMOGLOBIN Timed 03/23/2022 5:45 PM Results f or this FIELD SERVICE REPRESENTATIVE procedure are i n the results section. GLUCOSE, METER Routine 03/23/2022 5:45 PM Results for this FIELD SERVICE REPRESENTATIVE procedure are i n the results section. COLONOSCOPY PROCEDURE 03/23/2022 5:44 PM Hemorrhagic s hock Results for this FIELD SERVICE REPRESENTATIVE (HCC) procedure are i n the results section. ADMIT MRSA, MOLECULAR Routine 03/23/2022 1:48 PM Results for this DETECTION FIELD SERVICE REPRESENTATIVE procedure are i n the results section. ECHO ADULT COMPLETE W Routine 03/23/2022 12:26 Re sults for this CONTRAST PM FIELD SERVICE REPRESENTATIVE procedure are i n the results section. RAPID SARS-COV-2 RNA Routine 03/23/2022 12:11 Res ults for this (COVID-19), MOLECULAR PM FIELD SERVICE REPRESENTATIVE proced ure are in DETECTION the results section. PROTIME Routine 03/23/2022 12:11 Results for this PM FIELD SERVICE REPRESENTATIVE procedure are i n the results section. HEMOGLOBIN Timed 03/23/2022 12:11 Results for this PM FIELD SERVICE REPRESENTATIVE procedure are i n the results section. GLUCOSE, METER Routine 03/23/2022 12:10 Results f or this PM FIELD SERVICE REPRESENTATIVE procedure are i n the results section. TRANSFUSE RED BLOOD Routine 03/23/2022 8:20 AM CELLS FIELD SERVICE REPRESENTATIVE HEMOGLOBIN Timed 03/23/2022 7:53 AM Results f or this FIELD SERVICE REPRESENTATIVE procedure are i n the results section. URINALYSIS, REFLEX TO Routine 03/23/2022 6:07 AM Results for this MICROSCOPIC FIELD SERVICE REPRESENTATIVE procedure are i n the results section. CULTURE, BLOOD Routine 03/23/2022 5:58 AM BACTERIAL FIELD SERVICE REPRESENTATIVE CULTURE, BLOOD Routine 03/23/2022 5:50 AM BACTERIAL FIELD SERVICE REPRESENTATIVE GLUCOSE, METER Routine 03/23/2022 5:44 AM Results for this FIELD SERVICE REPRESENTATIVE procedure are i n the results section. PROCALCITONIN, BLOOD Add on 03/23/2022 4:57 AM R esults for this FIELD SERVICE REPRESENTATIVE procedure are i n the results section. BASIC METABOLIC PANEL Routine 03/23/2022 4:57 AM Results for this FIELD SERVICE REPRESENTATIVE procedure are i n the results section. HEMOGLOBIN Timed 03/23/2022 4:57 AM Results f or this FIELD SERVICE REPRESENTATIVE procedure are i n the results section. WHITE BLOOD COUNT Routine 03/23/2022 4:57 AM Resu lts for this FIELD SERVICE REPRESENTATIVE procedure are i n the results section. MAGNESIUM Routine 03/23/2022 4:57 AM Results f or this FIELD SERVICE REPRESENTATIVE procedure are i n the results section. PHOSPHORUS Routine 03/23/2022 4:57 AM Results f or this FIELD SERVICE REPRESENTATIVE procedure are i n the results section. PLATELET COUNT Routine 03/23/2022 4:57 AM Results for this FIELD SERVICE REPRESENTATIVE procedure are i n the results section. [...] are i n RADIOLOGIST the results section. TYPE AND SCREEN STAT [...] Results (ABNORMAL) GLUCOSE, METER (03/25/2022 12:30 PM FIELD SERVICE REPRESENTATIVE) athologist Signature Glucose Meter 179 (H) 70 - 99 03/25/2022 [facility] mg/dL 12:37 PM FIELD SERVICE REPRESENTATIVE [facility] Specimen Anatomical Collection Method Collection Time Receive d Time (Source) Location / / Volume Laterality Blood BLOOD SPECIMEN / 03/25/2022 12:30 022 Unknown PM FIELD SERVICE REPRESENTATIVE 12:37 PM FIELD SERVICE REPRESENTATIVE Agustin Palacio MD EC CHEMISTRY ORDERABLES Performing Organization Address City/[facility] Phon e Number [facility] [address] [place] [address], [place] [phone] (ABNORMAL) GLUCOSE, METER (03/25/2022 7:47 AM FIELD SERVICE REPRESENTATIVE) athologist Signature Glucose Meter 223 (H) 70 - 99 03/25/2022 [facility] mg/dL 7:54 AM [facility] Specimen Anatomical Collection Method Collection Time Receive d Time (Source) Location / / Volume Laterality Blood BLOOD SPECIMEN / 03/25/2022 7:47 AM 03/25 7:54 Unknown FIELD SERVICE REPRESENTATIVE AM FIELD SERVICE REPRESENTATIVE Agustin Palacio MD EC CHEMISTRY ORDERABLES Performing Organization Address City/[facility] Phon e Number [facility] [address] [place] [address], [place] 58 [phone] PLATELET COUNT (03/25/2022 4:04 AM FIELD SERVICE REPRESENTATIVE) athologist Signature PLT 130 130 - 375 03/25/2022 [facility] 10*9/L 4:31 AM FIELD SERVICE REPRESENTATIVE [facility]OSPITAL [facility] Specimen Anatomical Collection Method / Collection Time Recei eloina Time (Source) Location / Volume Laterality Blood BLOOD SPECIMEN / Venipuncture / 03/25/2022 4:04 2021 4:23 Unknown Unknown AM FIELD SERVICE REPRESENTATIVE AM FIELD SERVICE REPRESENTATIVE Yoko Johnson MD EC HEMATOLOGY ORDERABLES Performing Organization Address City/[facility] Phon e Number [facility] [address] [place] [address] (ABNORMAL) WHITE BLOOD COUNT (03/25/2022 4:04 AM FIELD SERVICE REPRESENTATIVE) P athologist Signature WBC 45.0 (H) 3.2 - 11.0 03/25/2022 [facility] 10*9/L 4:31 AM FIELD SERVICE REPRESENTATIVE HOSPITAL LABORATORY Specimen Anatomical Collection Method / Collection Time Recei eloina Time (Source) Location / Volume Laterality Blood BLOOD SPECIMEN / Venipuncture / 03/25/2022 4:04 2021 4:23 Unknown Unknown AM FIELD SERVICE REPRESENTATIVE AM FIELD SERVICE REPRESENTATIVE Yoko Johnson MD EC HEMATOLOGY ORDERABLES Performing Organization Address City/[facility]/ZIP [facility] Phon e Number [facility] [address], [place] [address] PHOSPHORUS (03/25/2022 4:04 AM FIELD SERVICE REPRESENTATIVE) athologist Signature Phosphorus 2.5 2.5 - 4.6 03/25/2022 [facility] mg/dL 4:46 AM [facility] Specimen Anatomical Collection Method / Collection Time Recei eloina Time (Source) Location / Volume Laterality Blood BLOOD SPECIMEN / Venipuncture / 03/25/2022 4:04 2021 4:24 Unknown Unknown AM FIELD SERVICE REPRESENTATIVE AM FIELD SERVICE REPRESENTATIVE Yoko Johnson MD EC CHEMISTRY ORDERABLES Performing Organization Address City/[facility]/ZIP [facility] Phon e Number [facility] [address] [place] [phone] MAGNESIUM (03/25/2022 4:04 AM FIELD SERVICE REPRESENTATIVE) athologist Signature Magnesium 1.9 1.8 - 2.7 03/25/2022 [facility] mg/dL 4:46 AM [facility] Specimen Anatomical Collection Method / Collection Time Recei eloina Time (Source) Location / Volume Laterality Blood BLOOD SPECIMEN / Venipuncture / 03/25/2022 4:04 2021 4:24 Unknown Unknown AM FIELD SERVICE REPRESENTATIVE AM FIELD SERVICE REPRESENTATIVE Yoko Johnson MD EC CHEMISTRY ORDERABLES Performing Organization Address City/[facility] Phon e Number [facility] [address], [place] [address] (ABNORMAL) BASIC METABOLIC PANEL (03/25/2022 4:04 AM FIELD SERVICE REPRESENTATIVE) Analysis Performed At Patho logist Time Signature Sodium 140 134 - 143 03/25/2022 [facility] mEq/L 4:46 AM [facility] Potassium 3.7 3.4 - 5.1 03/25/2022 [facility] mEq/L 4:46 AM [facility] Chloride 112 (H) 99 - 110 03/25/2022 [place] mEq/L 4:46 AM [facility] Carbon Dioxide 22 19 - 29 03/25/2022 [facility] mEq/L 4:46 AM [facility] Anion Gap 6.0 3.0 - 15.0 03/25/2022 [facility] mEq/L 4:46 AM [facility] Blood Urea 18 5 - 24 03/25/2022 [facility] Nitrogen mg/dL 4:46 AM [facility] Creatinine 0.92 0.70 - 03/25/2022 [facility] 1.20 mg/dL 4:46 AM [facility] Glomerular 81 >60 03/25/2022 [facility] Filtration Rate mL/min/1.7 4:46 AM [facility] 3 m*2 LABORATORY Comment: Risk of cardiovascular disease increases when GFR is abnormal; persistently reduced GFR values are a specific indica tion of CKD. This calculation uses CKD-EPI 2020 equation without adjustment for rac e; it has not been validated in women. Calcium 8.1 (L) 8.4 - 10.5 mg/dL 03/25/2022 4:46 AM [facility] Glucose 164 (H) 70 - 99 mg/dL 03/25/2022 4:46 AM [facility] Specimen Anatomical Collection Method / Collection Time Recei eloina Time (Source) Location / Volume Laterality Blood BLOOD SPECIMEN / Venipuncture / 03/25/2022 4:04 2021 4:24 Unknown Unknown AM FIELD SERVICE REPRESENTATIVE AM [facility] Narrative [facility] - 4:46 AM [facility] Current ADA criteria for Glucose: ?Normal: 70-99 mg/dL ?Impaired Fasting Glucose: 100-125 mg/dL ?Diabetes Mellitus: at or above 126 mg/dL The diagnosis of diabetes must be confir med on a subsequent day by measuring Fasting Plasma Glucose, 2-hr PG or random plasma glucose (if symptoms are present). Yoko Johnson MD EC CHEMISTRY ORDERABLES Performing Organization Address [facility]/ZIP [facility] Phon e Number [facility] [address] [place] [address] (ABNORMAL) HEMOGLOBIN (03/25/2022 4:04 AM FIELD SERVICE REPRESENTATIVE) athologist Signature HGB 7.7 (L) 12.9 - 16.9 03/25/2022 [facility] g/dL 4:28 AM FIELD SERVICE REPRESENTATIVE HOSPITAL LABORATORY Specimen Anatomical Collection Method / Collection Time Recei eloina Time (Source) Location / Volume Laterality Blood BLOOD SPECIMEN / Venipuncture / 03/25/2022 4:04 2021 4:23 Unknown Unknown AM FIELD SERVICE REPRESENTATIVE AM FIELD SERVICE REPRESENTATIVE Mere Ewing APRN, CYDNEY EC HEMATOLOGY ORDERABLES Performing Organization Address [facility] Phon e Number [facility] [address] [place] [address] EKG 12-LEAD (03/25/2022 12:49 AM FIELD SERVICE REPRESENTATIVE) athologist Signature Ventricular Rate 110 BPM MUSE Atrial Rate 110 BPM MUSE P-R Interval 168 ms MUSE QRS Duration 162 ms MUSE QT 404 ms MUSE QTc 546 ms MUSE R [place] -65 degrees MUSE T [place] 11 degrees MUSE Specimen (Source) Anatomical Collection Method Collection Time Re ceived Time Location / / Volume Laterality 03/25/2022 12:49 AM FIELD SERVICE REPRESENTATIVE Narrative MUSE - 03/25/2022 8:03 AM FIELD SERVICE REPRESENTATIVE Confirming Doc Aileen Forbes MD Wide QRS [...] MD IP ECG ORDERABLES Performing Organization Address [facility]/ZIP [facility] Phon e Number MUSE (ABNORMAL) GLUCOSE, METER (03/24/2022 10:07 PM FIELD SERVICE REPRESENTATIVE) athologist Signature Glucose Meter 168 (H) 70 - 99 03/24/2022 [facility] mg/dL 10:15 PM FIELD SERVICE REPRESENTATIVE [facility] POINT OF CARE Specimen Anatomical Collection Method Collection Time Receive d Time (Source) Location / / Volume Laterality Blood BLOOD SPECIMEN / 03/24/2022 10:07 022 Unknown PM FIELD SERVICE REPRESENTATIVE 10:15 PM FIELD SERVICE REPRESENTATIVE Agustin Palacio MD EC CHEMISTRY ORDERABLES Performing Organization Address City/[facility] Phon e Number [facility] POINT OF CARE [address] [place] [phone] (ABNORMAL) HEMOGLOBIN (03/24/2022 8:02 PM FIELD SERVICE REPRESENTATIVE) athologist Signature HGB 7.9 (L) 12.9 - 16.9 03/24/2022 [facility] g/dL 8:08 PM FIELD SERVICE REPRESENTATIVE [facility] LABORATORY Specimen Anatomical Collection Method / Collection Time Recei eloina Time (Source) Location / Volume Laterality Blood BLOOD SPECIMEN / Venipuncture / 03/24/2022 8:02 2021 8:06 Unknown Unknown PM FIELD SERVICE REPRESENTATIVE PM FIELD SERVICE REPRESENTATIVE Mere Ewing APRN, CNP EC HEMATOLOGY ORDERABLES Performing Organization Address City/[facility]/ZIP [facility] Phon e Number [facility] [address] [place] [phone] (ABNORMAL) GLUCOSE, METER (03/24/2022 5:08 PM FIELD SERVICE REPRESENTATIVE) athologist Signature Glucose Meter 147 (H) 70 - 99 03/24/2022 [facility] mg/dL 5:15 PM FIELD SERVICE REPRESENTATIVE [facility] POINT OF [facility] Specimen Anatomical Collection Method Collection Time Receive d Time (Source) Location / / Volume Laterality Blood BLOOD SPECIMEN / 03/24/2022 5:08 PM 03/24 5:15 Unknown FIELD SERVICE REPRESENTATIVE PM FIELD SERVICE REPRESENTATIVE Agustin Palacio MD EC CHEMISTRY ORDERABLES Performing Organization Address City/[facility] Phon e Number [facility] [address] [place] [phone] (ABNORMAL) HEMOGLOBIN (03/24/2022 12:08 PM FIELD SERVICE REPRESENTATIVE) P athologist Signature HGB 8.3 (L) 12.9 - 16.9 03/24/2022 [facility] g/dL 12:14 PM FIELD SERVICE REPRESENTATIVE [facility] LABORATORY Specimen Anatomical Collection Method / Collection Time Recei eloina Time (Source) Location / Volume Laterality Blood BLOOD SPECIMEN / Venipuncture / 03/24/2022 12:08 03/24 Unknown Unknown PM FIELD SERVICE REPRESENTATIVE 12:12 PM FIELD SERVICE REPRESENTATIVE Mere Ewing APRN, CNP EC HEMATOLOGY ORDERABLES Performing Organization Address [facility]/ZIP [facility] Phon e Number [facility] [address] [place] [address] (ABNORMAL) GLUCOSE, METER (03/24/2022 11:47 AM FIELD SERVICE REPRESENTATIVE) athologist Signature Glucose Meter 142 (H) 70 - 99 03/24/2022 [facility] mg/dL 11:54 AM [facility] POINT OF CARE Specimen Anatomical Collection Method Collection Time Receive d Time (Source) Location / / Volume Laterality Blood BLOOD SPECIMEN / 03/24/2022 11:47 022 Unknown AM FIELD SERVICE REPRESENTATIVE 11:54 AM FIELD SERVICE REPRESENTATIVE Glynn Jones MD EC CHEMISTRY ORDERABLES Performing Organization Address [facility] Phon e Number [facility] POINT OF CARE [address] [place] [phone] (ABNORMAL) HEMOGLOBIN (03/24/2022 5:48 AM FIELD SERVICE REPRESENTATIVE) athologist Signature HGB 7.5 (L) 12.9 - 16.9 03/24/2022 [facility] g/dL 6:10 AM [facility] Specimen Anatomical Collection Method / Collection Time Recei eloina Time (Source) Location / Volume Laterality Blood BLOOD SPECIMEN / Venipuncture / 03/24/2022 5:48 2021 6:06 Unknown Unknown AM FIELD SERVICE REPRESENTATIVE AM FIELD SERVICE REPRESENTATIVE Mere Ewing APRN, CNP EC HEMATOLOGY ORDERABLES Performing Organization Address City/[facility] Phon e Number [facility] [address] [place] [address] PLATELET COUNT (03/24/2022 5:48 AM FIELD SERVICE REPRESENTATIVE) athologist Signature PLT 150 130 - 375 03/24/2022 [facility] 10*9/L 6:16 AM [facility] Specimen Anatomical Collection Method / Collection Time Recei eloina Time (Source) Location / Volume Laterality Blood BLOOD SPECIMEN / Venipuncture / 03/24/2022 5:48 2021 6:06 Unknown Unknown AM FIELD SERVICE REPRESENTATIVE AM FIELD SERVICE REPRESENTATIVE Yoko Johnson MD EC HEMATOLOGY ORDERABLES Performing Organization Address City/[facility] Phon e Number [facility] [address] [place] [phone] (ABNORMAL) WHITE BLOOD COUNT (03/24/2022 5:48 AM FIELD SERVICE REPRESENTATIVE) P athologist Signature WBC 62.6 (HH) 3.2 - 11.0 03/24/2022 [facility] 10*9/L 6:17 AM FIELD SERVICE REPRESENTATIVE HOSPITAL LABORATORY Specimen Anatomical Collection Method / Collection Time Recei eloina Time (Source) Location / Volume Laterality Blood BLOOD SPECIMEN / Venipuncture / 03/24/2022 5:48 2021 6:06 Unknown Unknown AM FIELD SERVICE REPRESENTATIVE AM FIELD SERVICE REPRESENTATIVE Yoko Johnson MD EC HEMATOLOGY ORDERABLES Performing Organization Address [facility] Phon e Number [facility] [address] [place] [phone] PHOSPHORUS (03/24/2022 3:01 AM FIELD SERVICE REPRESENTATIVE) P athologist Signature Phosphorus 3.2 2.5 - 4.6 03/24/2022 [facility] mg/dL 3:30 AM FIELD SERVICE REPRESENTATIVE HOSPITAL LABORATORY Specimen Anatomical Collection Method / Collection Time Recei eloina Time (Source) Location / Volume Laterality Blood BLOOD SPECIMEN / Venipuncture / 03/24/2022 3:01 2021 3:10 Unknown Unknown AM FIELD SERVICE REPRESENTATIVE AM FIELD SERVICE REPRESENTATIVE Yoko Johnson MD EC CHEMISTRY ORDERABLES Performing Organization Address City/[facility] Phon e Number [facility] [address] [place] [phone] MAGNESIUM (03/24/2022 3:01 AM FIELD SERVICE REPRESENTATIVE) P athologist Signature Magnesium 1.8 1.8 - 2.7 03/24/2022 [facility] mg/dL 3:30 AM FIELD SERVICE REPRESENTATIVE HOSPITAL LABORATORY Specimen Anatomical Collection Method / Collection Time Recei eloina Time (Source) Location / Volume Laterality Blood BLOOD SPECIMEN / Venipuncture / 03/24/2022 3:01 2021 3:10 Unknown Unknown AM FIELD SERVICE REPRESENTATIVE AM FIELD SERVICE REPRESENTATIVE Yoko Johnson MD EC CHEMISTRY ORDERABLES Performing Organization Address City/State/ZIP Code Phon e Number [facility] [address] [facility] [place] [address] (ABNORMAL) BASIC METABOLIC PANEL (03/24/2022 3:01 AM [facility]) [facility] Method Time Signature Sodium 141 134 - 143 03/24/2022 [facility] mEq/L 3:30 AM [facility] Potassium 4.1 3.4 - 5.1 03/24/2022 [facility] mEq/L 3:30 AM [facility] Chloride 113 (H) 99 - 110 03/24/2022 [facility] mEq/L 3:30 AM [facility] Carbon Dioxide 19 19 - 29 03/24/2022 [facility] mEq/L 3:30 AM [facility] Anion Gap 9.0 3.0 - 15.0 03/24/2022 [facility] mEq/L 3:30 AM [facility] Blood Urea 28 (H) 5 - 24 03/24/2022 [facility] Nitrogen mg/dL 3:30 AM [facility] Creatinine 1.22 (H) 0.70 - 03/24/2022 [facility] 1.20 mg/dL 3:30 AM [facility] Glomerular 58 (L) >60 03/24/2022 [facility] Filtration Rate mL/min/1.7 3:30 AM [facility] 3 m*2 LABORATORY Comment: Risk of cardiovascular disease increases when GFR is abnormal; persistently reduced GFR values are a specific indica tion of CKD. This calculation uses CKD-EPI 2020 equation without adjustment for rac e; it has not been validated in women. Calcium 7.8 (L) 8.4 - 10.5 mg/dL 03/24/2022 3:30 AM [facility] Glucose 186 (H) 70 - 99 mg/dL 03/24/2022 3:30 AM [facility] Specimen Anatomical Collection Method / Collection Time Recei eloina Time (Source) Location / Volume Laterality Blood BLOOD SPECIMEN / Venipuncture / 03/24/2022 3:01 2021 3:10 Unknown Unknown AM FIELD SERVICE REPRESENTATIVE AM FIELD SERVICE REPRESENTATIVE Narrative [facility] LABORATORY - 3:30 AM [facility] Current ADA criteria for Glucose: ?Normal: 70-99 mg/dL ?Impaired Fasting Glucose: 100-125 mg/dL ?Diabetes Mellitus: at or above 126 mg/dL The diagnosis of diabetes must be confir med on a subsequent day by measuring Fasting Plasma Glucose, 2-hr PG or random plasma glucose (if symptoms are present). Yoko Johnson MD EC CHEMISTRY ORDERABLES Performing Organization Address City/[facility]/ZIP Code Phon e Number [facility] [address], [place] [address] (ABNORMAL) GLUCOSE, METER (03/23/2022 11:38 PM FIELD SERVICE REPRESENTATIVE) P athologist Signature Glucose Meter 146 (H) 70 - 99 03/23/2022 [facility] mg/dL 11:44 PM FIELD SERVICE REPRESENTATIVE [facility] POINT OF CARE Specimen Anatomical Collection Method Collection Time Receive d Time (Source) Location / / Volume Laterality Blood BLOOD SPECIMEN / 03/23/2022 11:38 022 Unknown PM FIELD SERVICE REPRESENTATIVE 11:44 PM FIELD SERVICE REPRESENTATIVE Glynn Jones MD EC CHEMISTRY ORDERABLES Performing Organization Address City/[facility]/ZIP [facility] Phon e Number [facility] POINT OF CARE [address] [place] [phone] (ABNORMAL) HEMOGLOBIN (03/23/2022 11:38 PM FIELD SERVICE REPRESENTATIVE) P athologist Signature HGB 7.7 (L) 12.9 - 16.9 03/24/2022 [facility] g/dL 12:19 AM [facility] LABOR[facility] Specimen Anatomical Collection Method / Collection Time Recei eloina Time (Source) Location / Volume Laterality Blood BLOOD SPECIMEN / Venipuncture / 03/23/2022 11:38 03/24 Unknown Unknown PM FIELD SERVICE REPRESENTATIVE 12:16 AM FIELD SERVICE REPRESENTATIVE Mere Ewing APRN [employer] EC HEMATOLOGY ORDERABLES Performing Organization Address City/[facility]/ZIP [facility] Phon e Number [facility] [address] [place] [phone] (ABNORMAL) GLUCOSE, METER (03/23/2022 5:45 PM FIELD SERVICE REPRESENTATIVE) P athologist Signature Glucose Meter 124 (H) 70 - 99 03/23/2022 [facility] mg/dL 5:52 PM FIELD SERVICE REPRESENTATIVE [facility] POINT OF CARE Specimen Anatomical Collection Method Collection Time Receive d Time (Source) Location / / Volume Laterality Blood BLOOD SPECIMEN / 03/23/2022 5:45 PM 03/23 5:52 Unknown FIELD SERVICE REPRESENTATIVE PM FIELD SERVICE REPRESENTATIVE Glynn Jones MD EC CHEMISTRY ORDERABLES Performing Organization Address City/State/ZIP Code Phon e Number [facility] POINT OF CARE [address] [place], [place] [phone] (ABNORMAL) HEMOGLOBIN (03/23/2022 5:45 PM FIELD SERVICE REPRESENTATIVE) P athologist Signature HGB 8.0 (L) 12.9 - 16.9 03/23/2022 [facility] g/dL 5:51 PM FIELD SERVICE REPRESENTATIVE HOSPITAL LABORATORY Specimen Anatomical Collection Method / Collection Time Recei eloina Time (Source) Location / Volume Laterality Blood BLOOD SPECIMEN / Venipuncture / 03/23/2022 5:45 2021 5:49 Unknown Unknown PM FIELD SERVICE REPRESENTATIVE PM FIELD SERVICE REPRESENTATIVE Mere Ewing APRN [employer] EC HEMATOLOGY ORDERABLES Performing Organization Address City/[facility]/ZIP [facility] Phon e Number [facility] [address], [place] [address] COLONOSCOPY PROCEDURE (03/23/2022 5:44 PM FIELD SERVICE REPRESENTATIVE) Component Value Ref Test Analysis Performed At [facility] gist Range Method Time Signature Colonoscopy [facility] Procedure Gastroenterology LABORATORY Patient Name: Kristofer Floresheber ? Date of : 1935 ?Patient Status: Inpatient Age: 86 ? Gender: Male Note Status: Finalized ?Procedure Date No Time: 03/23/2022 Procedure: ? Colonoscopy Endoscopist: ? KAMLESH PRIETO DO Referring MD: ?GLYNN JONES MD Indications: [...] for any further evidence ? of re-bleeding. [employer] Consultant(s): ? I personally performed the entire procedure. Kamlesh Prieto MD KAMLESH PRIETO DO 03/23/2022 6:50:16 PM This report has been signed electronically. ? [address], [place] [address] Procedure Repo rt Specimen (Source) Anatomical Collection Method Collection Time Re ceived Time Location / / Volume Laterality 03/23/2022 5:44 PM FIELD SERVICE REPRESENTATIVE Kamlesh Prieto DO EC PROCEDURES Performing Organization Address City/[facility] Phon e Number [facility] LABORATORY ADMIT MRSA, MOLECULAR DETECTION (03/23/2022 1:48 PM FIELD SERVICE REPRESENTATIVE) [facility] Method Time Signature MRSA Not Detected Not Detected 03/23/2022 [facility] 3:57 PM FIELD SERVICE REPRESENTATIVE HOSPITAL LABORATORY Specimen Anatomical Collection Method Collection Time Receive d Time (Source) Location / / Volume Laterality Swab BOTH ANTERIOR Non-blood 03/23/2022 1:48 PM 03/23/20 22 2:39 [place] / Unknown collection / FIELD SERVICE REPRESENTATIVE PM FIELD SERVICE REPRESENTATIVE Unknown Narrative [facility] LABORATORY - 3:57 PM FIELD SERVICE REPRESENTATIVE Test results must be interpreted within the context of all relevant clinical and laboratory findings. ??Test performance has not been evaluated in patients less than two (2) yeas of age. Method Information This test uses the Cepheid Xpert MRSA Nx G assay to detect methicillin-resistant Staphylococcus aureus (MRSA) DNA by real-time polymerase chain reaction (PCR) on the [employer] GeneXpert Instrument System. ??The Xpert MRSA NxG test detects sequen ama for methicillin/oxacillin resistance (mecA and mecC genes), and SCCmec, which is inserted into the Staphylococcus aureus chromosome at the attB site. Glynn Jones MD EC MICROBIOLOGY - GENERAL OR DERABLES Performing Organization Address City/[facility] Phon e Number [facility] [address], [place] [address] TRANSFUSE RED BLOOD CELLS (03/23/2022 12:28 PM FIELD SERVICE REPRESENTATIVE) Mere Aditya Kaylin MUÑOZ CNP IP [facility] TREATMENT ORDERABL ES - BLOOD ADMIN TRANSFUSE RED BLOOD CELLS (03/23/2022 12:28 PM FIELD SERVICE REPRESENTATIVE) Mere Aditya Kaylin MUÑOZ CNP IP [facility] TREATMENT ORDERABL ES - BLOOD ADMIN ECHO ADULT COMPLETE W CONTRAST (03/23/2022 12:26 PM FIELD SERVICE REPRESENTATIVE) Component Value Ref Test Analysis Performed At [facility] gist Range Method Time Signature LVEF Range Qualitative [facility] Percent ejection fraction is 55-60% (normal). RESULT [employer] [facility] [address] [place] [address] ? Transthoracic Echocardiogram Report Name: KRISTOFER GARCIA ? Study Date: 03/23/2022 ? Performing Location: [address] [place] [address] : 1935 ? Gender: Male Height: 68 [...] 147.4 ml ? LVOT diam: 2.4 cm ESV(Teich): 47.4 ml EF(Teich): 67.8 % ? RWT: 0.40 Time Measurements [...] mmHg ? Dimensionless Index: 0.27 ? Interpreting Physician:Elect ronically signed by: Oral Bowie MD on 03/23/2022 01:34 PM Specimen (Source) Anatomical Location Collection Method / Collectio n Time Received Time / Laterality Volume 03/23/2022 Narrative This result has an attachment that is no t available. Mere Ewing APRN, [employer] CV ECHO PROCEDURES Performing Organization Address City/State/ZIP Code Phon e Number [facility] RAPID SARS-COV-2 RNA (COVID-19), MOLECULAR DETECTION (03/23/2022 12:11 PM FIELD SERVICE REPRESENTATIVE) Patholo gist Method Time Signature SARS-CoV-2 Negative Negative/Not 03/23/2022 [facility] RNA Detected 12:59 PM FIELD SERVICE REPRESENTATIVE HOSPITAL (COVID-19) LABORATORY Comment: SARS-CoV-2 (COVID-19) target [...] 03/23/2022 12:11 03/23/20 22 Collection / PM FIELD SERVICE REPRESENTATIVE 12:25 PM FIELD SERVICE REPRESENTATIVE Unknown Narrative [facility] LABORATORY - 12:59 PM FIELD SERVICE REPRESENTATIVE Test detects target RNA by real-time polymerase chain reaction (PCR) on the [employer] GeneXpert System. Results should be used in [...] for this test can be found at: https://www.fda.gov/medical-devices/btsoxhosu-nvgcghnhzt-mnrgjdj-devices/emergen fj-uzd-hdhckirkyinxfn Kamlesh Prieto DO EC MICROBIOLOGY - GENERAL OR DERABLES Performing Organization Address [facility] Phon e Number [facility] [address] [place] [phone] (ABNORMAL) HEMOGLOBIN (03/23/2022 12:11 PM FIELD SERVICE REPRESENTATIVE) P athologist Signature HGB 9.0 (L) 12.9 - 16.9 03/23/2022 [facility] g/dL 12:35 PM FIELD SERVICE REPRESENTATIVE HOSPITAL LABORATORY Specimen Anatomical Collection Method / Collection Time Recei eloina Time (Source) Location / Volume Laterality Blood BLOOD SPECIMEN / Venipuncture / 03/23/2022 12:11 03/23 Unknown Unknown PM FIELD SERVICE REPRESENTATIVE 12:32 PM FIELD SERVICE REPRESENTATIVE Mere Ewing APRN, [employer] EC HEMATOLOGY ORDERABLES Performing Organization Address [facility]/ZIP [facility] Phon e Number [facility] LABORAT[facility] [address], [place] [address] (ABNORMAL) PROTIME (03/23/2022 12:11 PM FIELD SERVICE REPRESENTATIVE) athologist Signature INR 1.3 (H) 0.9 - 1.1 03/23/2022 [facility] 12:53 PM FIELD SERVICE REPRESENTATIVE [facility] LABORATORY Protime 15.7 (H) 12.0 - 14.1 03/23/2022 [facility] sec 12:53 PM FIELD SERVICE REPRESENTATIVE HOSPITAL LABORATORY Specimen Anatomical Collection Method / Collection Time Recei eloina Time (Source) Location / Volume Laterality Blood BLOOD SPECIMEN / Venipuncture / 03/23/2022 12:11 03/23 Unknown Unknown PM FIELD SERVICE REPRESENTATIVE 12:32 PM FIELD SERVICE REPRESENTATIVE Narrative [facility] LABORATORY - 12:53 PM FIELD SERVICE REPRESENTATIVE Suggested therapeutic INR ranges for oral anticoagulant therapy: Category ? INR Value Prophylaxis ?2.0-3.0 Treat Thrombosis or Embolism ? 2.0-3 .0 Prosthetic Heart Valve ? 2. 5-3.5 Mere Ewing APRN, CNP EC HEMATOLOGY ORDERABLES Performing Organization Address City/[facility]/ZIP Code Phon e Number [facility]OR[facility] [address] [place] [phone] (ABNORMAL) GLUCOSE, METER (03/23/2022 12:10 PM FIELD SERVICE REPRESENTATIVE) [facility] Glucose Meter 170 (H) 70 - 99 03/23/2022 [facility] mg/dL 12:17 PM [facility] POINT OF CARE Specimen Anatomical Collection Method Collection Time Receive d Time (Source) Location / / Volume Laterality Blood BLOOD SPECIMEN / 03/23/2022 12:10 022 Unknown PM FIELD SERVICE REPRESENTATIVE 12:17 PM FIELD SERVICE REPRESENTATIVE Glynn Jones MD EC CHEMISTRY ORDERABLES Performing Organization Address City/[facility]/ZIP [facility] Phon e Number [facility] POINT OF CARE [address] [place], [place] [address] (ABNORMAL) HEMOGLOBIN (03/23/2022 7:53 AM FIELD SERVICE REPRESENTATIVE) athologist Signature HGB 8.0 (L) 12.9 - 16.9 03/23/2022 [facility] g/dL 8:33 AM [facility] LABORATORY Specimen Anatomical Collection Method / Collection Time Recei eloina Time (Source) Location / Volume Laterality Blood BLOOD SPECIMEN / Venipuncture / 03/23/2022 7:53 2021 8:29 Unknown Unknown AM FIELD SERVICE REPRESENTATIVE AM FIELD SERVICE REPRESENTATIVE Alen Marrero MD EC HEMATOLOGY ORDERABLES Performing Organization Address City/[facility] Phon e Number [facility] [address] [facility] [place] [address] (ABNORMAL) URINALYSIS, REFLEX TO MICROSCOPIC (03/23/2022 6:07 AM FIELD SERVICE REPRESENTATIVE) Patholo gist Method Time Signature Urine Color Yellow Straw, 03/23/2022 [facility] Yellow, 6:17 AM [facility] Nicki LABORATORY Urine Clear Clear 03/23/2022 [facility] Appearance 6:17 AM [facility] LABORATORY Urine Specific 1.015 1.003 - 03/23/2022 [facility] [place] 1.035 6:17 AM [facility] LABORATORY Urine pH 5.5 5.0 - 8.0 03/23/2022 [facility] 6:17 AM [facility] LABORATORY Urine Glucose 500 (A) Negative 03/23/2022 [facility] 6:17 AM [facility] LABORATORY Urine Ketones 80 (A) Negative 03/23/2022 [facility] 6:17 AM [facility] LABORATORY Urine Protein Negative Negative, 03/23/2022 [facility] Trace mg/dL 6:17 AM [facility] LABORATORY Urine Nitrites Negative Negative 03/23/2022 [facility] 6:17 AM [facility] LABORATORY Urine Negative Negative 03/23/2022 [facility] Leukocyte 6:17 AM [facility] Esterase LABORATORY Specimen Anatomical Collection Method Collection Time Receive d Time (Source) Location / / Volume Laterality Urine URINE SPECIMEN Non-blood 03/23/2022 6:07 AM 022 6:11 OBTAINED VIA collection / FIELD SERVICE REPRESENTATIVE AM FIELD SERVICE REPRESENTATIVE INDWELLING URINARY Unknown CATHETER / Unknown Narrative [facility] LABORATORY - 6:17 AM FIELD SERVICE REPRESENTATIVE A routine urine not reflexing to a micro scopic exam automatically means the dipstick blood test is negative. Alen Marrero MD EC URINE ORDERABLES Performing Organization Address City/State/ZIP Code Phon e Number [facility]OR[facility] [address] [place] [address] (ABNORMAL) GLUCOSE, METER (03/23/2022 5:44 AM FIELD SERVICE REPRESENTATIVE) athologist Signature Glucose Meter 165 (H) 70 - 99 03/23/2022 [facility] mg/dL 5:50 AM [facility] POINT OF CARE Specimen Anatomical Collection Method Collection Time Receive d Time (Source) Location / / Volume Laterality Blood BLOOD SPECIMEN / 03/23/2022 5:44 AM 03/23 5:50 Unknown FIELD SERVICE REPRESENTATIVE AM FIELD SERVICE REPRESENTATIVE Yoko Johnson MD EC CHEMISTRY ORDERABLES Performing Organization Address City/State/ZIP Code Phon e Number [facility] POINT OF CARE [address] [place], [place] [address] PROCALCITONIN, BLOOD (03/23/2022 4:57 AM FIELD SERVICE REPRESENTATIVE) athologist Signature Procalcitonin 0.06 <0.50 03/23/2022 [facility] ng/mL 6:03 AM [facility] LABORATORY Specimen Anatomical Collection Method / Collection Time Recei eloina Time (Source) Location / Volume Laterality Blood BLOOD SPECIMEN / Venipuncture / 03/23/2022 4:57 2021 5:09 Unknown Unknown AM FIELD SERVICE REPRESENTATIVE AM FIELD SERVICE REPRESENTATIVE Narrative [facility] LABORATORY - 6:03 AM FIELD SERVICE REPRESENTATIVE Procalcitonin Interpretation Guidelines: Diagnosis of systemic bacterial [...] LAB SEND OUT ORDERABLES Performing Organization Address [facility] Phon e Number [facility] [address] [place] [phone] (ABNORMAL) HEMOGLOBIN (03/23/2022 4:57 AM FIELD SERVICE REPRESENTATIVE) P athologist Signature HGB 8.1 (L) 12.9 - 16.9 03/23/2022 [facility] g/dL 5:10 AM FIELD SERVICE REPRESENTATIVE HOSPITAL LABORATORY Specimen Anatomical Collection Method / Collection Time Recei eloina Time (Source) Location / Volume Laterality Blood BLOOD SPECIMEN / Venipuncture / 03/23/2022 4:57 2021 5:08 Unknown Unknown AM FIELD SERVICE REPRESENTATIVE AM FIELD SERVICE REPRESENTATIVE Alen Marrero MD EC HEMATOLOGY ORDERABLES Performing Organization Address [facility] Phon e Number [facility] [address] [place] [phone] PLATELET COUNT (03/23/2022 4:57 AM FIELD SERVICE REPRESENTATIVE) P athologist Signature PLT 188 130 - 375 03/23/2022 [facility] 10*9/L 5:15 AM FIELD SERVICE REPRESENTATIVE HOSPITAL LABORATORY Specimen Anatomical Collection Method / Collection Time Recei eloina Time (Source) Location / Volume Laterality Blood BLOOD SPECIMEN / Venipuncture / 03/23/2022 4:57 2021 5:08 Unknown Unknown AM FIELD SERVICE REPRESENTATIVE AM FIELD SERVICE REPRESENTATIVE Yoko Johnson MD EC HEMATOLOGY ORDERABLES Performing Organization Address [facility] Phon e Number [facility] [address] [place] [phone] (ABNORMAL) WHITE BLOOD COUNT (03/23/2022 4:57 AM FIELD SERVICE REPRESENTATIVE) P athologist Signature WBC 78.1 (HH) 3.2 - 11.0 03/23/2022 [facility] 10*9/L 5:16 AM FIELD SERVICE REPRESENTATIVE HOSPITAL LABORATORY Specimen Anatomical Collection Method / Collection Time Recei eloina Time (Source) Location / Volume Laterality Blood BLOOD SPECIMEN / Venipuncture / 03/23/2022 4:57 2021 5:08 Unknown Unknown AM FIELD SERVICE REPRESENTATIVE AM FIELD SERVICE REPRESENTATIVE Yoko Johnson MD EC HEMATOLOGY ORDERABLES Performing Organization Address [facility] Phon e Number [facility] [address] [place] [phone] PHOSPHORUS (03/23/2022 4:57 AM FIELD SERVICE REPRESENTATIVE) P athologist Signature Phosphorus 4.4 2.5 - 4.6 03/23/2022 [facility] mg/dL 5:29 AM FIELD SERVICE REPRESENTATIVE HOSPITAL LABORATORY Specimen Anatomical Collection Method / Collection Time Recei eloina Time (Source) Location / Volume Laterality Blood BLOOD SPECIMEN / Venipuncture / 03/23/2022 4:57 2021 5:09 Unknown Unknown AM FIELD SERVICE REPRESENTATIVE AM FIELD SERVICE REPRESENTATIVE Yoko Johnson MD EC CHEMISTRY ORDERABLES Performing Organization Address [facility] Phon e Number [facility] [address] [place] [phone] MAGNESIUM (03/23/2022 4:57 AM FIELD SERVICE REPRESENTATIVE) P athologist Signature Magnesium 1.8 1.8 - 2.7 03/23/2022 [facility] mg/dL 5:29 AM FIELD SERVICE REPRESENTATIVE HOSPITAL LABORATORY Specimen Anatomical Collection Method / Collection Time Recei eloina Time (Source) Location / Volume Laterality Blood BLOOD SPECIMEN / Venipuncture / 03/23/2022 4:57 2021 5:09 Unknown Unknown AM FIELD SERVICE REPRESENTATIVE AM FIELD SERVICE REPRESENTATIVE Yoko Johnson MD EC CHEMISTRY ORDERABLES Performing Organization Address [facility] Phon e Number [facility] [address] [place] [phone] (ABNORMAL) BASIC METABOLIC PANEL (03/23/2022 4:57 AM FIELD SERVICE REPRESENTATIVE) Patholo gist Method Time Signature Sodium 143 134 - 143 03/23/2022 [facility] mEq/L 5:29 AM [facility] LABOR[facility] Potassium 4.6 3.4 - 5.1 03/23/2022 [facility] mEq/L 5:29 AM [facility] LABORATORY Chloride 115 (H) 99 - 110 03/23/2022 [facility] mEq/L 5:29 AM FIELD SERVICE REPRESENTATIVE HOSPITAL LABORATORY Carbon Dioxide 15 (L) 19 - 29 03/23/2022 [facility] mEq/L 5:29 AM [facility] LAB[facility] Anion Gap 13.0 3.0 - 15.0 03/23/2022 [facility] mEq/L 5:29 AM [facility] LABORATORY Blood Urea 32 (H) 5 - 24 03/23/2022 [facility] Nitrogen mg/dL 5:29 AM [facility] LABOR[facility]ORY Creatinine 1.27 (H) 0.70 - 03/23/2022 [facility] 1.20 mg/dL 5:29 AM [facility] LABORATORY Glomerular 55 (L) >60 03/23/2022 [facility] Filtration Rate mL/min/1.7 5:29 AM [facility] 3 m*2 LABORATORY Comment: Risk of cardiovascular disease increases when GFR is abnormal; persistently reduced GFR values are a specific indica tion of CKD. This calculation uses CKD-EPI 2020 equation without adjustment for rac e; it has not been validated in women. Calcium 8.2 (L) 8.4 - 10.5 mg/dL 03/23/2022 5:29 AM [facility] LABOR[facility] Glucose 184 (H) 70 - 99 mg/dL 03/23/2022 5:29 AM [facility] LABOR[facility] Specimen Anatomical Collection Method / Collection Time Recei eloina Time (Source) Location / Volume Laterality Blood BLOOD SPECIMEN / Venipuncture / 03/23/2022 4:57 2021 5:09 Unknown Unknown AM FIELD SERVICE REPRESENTATIVE AM FIELD SERVICE REPRESENTATIVE Narrative [facility] LAB[facility] - 5:29 AM [facility] Current ADA criteria for Glucose: ?Normal: 70-99 mg/dL ?Impaired Fasting Glucose: 100-125 mg/dL ?Diabetes Mellitus: at or above 126 mg/dL The diagnosis of diabetes must be confir med on a subsequent day by measuring Fasting Plasma Glucose, 2-hr PG or random plasma glucose (if symptoms are present). Yoko Johnson MD EC CHEMISTRY ORDERABLES Performing Organization Address City/State/ZIP Code Phon e Number [facility] [address] [facility] [place] [address] (ABNORMAL) GLUCOSE, METER (03/22/2022 11:39 PM CDT) P athologist Signature Glucose Meter 150 (H) 70 - 99 03/22/2022 [facility] mg/dL 11:46 PM CDT HOSPITAL POINT OF CARE Specimen Anatomical Collection Method Collection Time Receive d Time (Source) Location / / Volume Laterality Blood BLOOD SPECIMEN / 03/22/2022 11:39 022 Unknown PM CDT 11:46 PM CDT Yoko Johnson MD EC CHEMISTRY ORDERABLES Performing Organization Address City/[facility]/ZIP Code Phon e Number [facility] POINT OF CARE [address] [place], [place] [address] LACTIC ACID, VENOUS (03/22/2022 11:29 PM CDT) athologist Signature Lactic Acid, 0.8 0.5 - 2.0 03/22/2022 [facility] Venous mmol/L 11:49 PM CDT HOSPITAL LABORATORY Specimen Anatomical Collection Method / Collection Time Recei eloina Time (Source) Location / Volume Laterality Blood BLOOD SPECIMEN / Venipuncture / 03/22/2022 11:29 03/22 Unknown Unknown PM CDT 11:33 PM CDT Alen Marrero MD EC CHEMISTRY ORDERABLES Performing Organization Address City/[facility]/ZIP Code Phon e Number [facility] [address] [place] [address] (ABNORMAL) HEMOGLOBIN (03/22/2022 11:29 PM CDT) athologist Signature HGB 8.3 (L) 12.9 - 16.9 03/22/2022 [facility] g/dL 11:36 PM CDT HOSPITAL LABORATORY Specimen Anatomical Collection Method / Collection Time Recei eloina Time (Source) Location / Volume Laterality Blood BLOOD SPECIMEN / Venipuncture / 03/22/2022 11:29 03/22 Unknown Unknown PM CDT 11:33 PM CDT Yoko Johnson MD EC HEMATOLOGY ORDERABLES Performing Organization Address City/[facility]/ZIP Code Phon e Number [facility] [address] [place] [address] ABORH 2ND DRAW (03/22/2022 5:09 PM CDT) athologist Signature ABO Group O 03/22/2022 5:56 [facility] PM CDT HOSPITAL BLOOD BANK RH Type POS 03/22/2022 5:56 [facility] PM T [facility] BLOOD BANK Specimen Anatomical Collection Method / Collection Time Recei eloina Time (Source) Location / Volume Laterality Blood BLOOD SPECIMEN / Venipuncture / 03/22/2022 5:09 2021 5:29 Unknown Unknown PM CDT PM CDT Yoko Jhonson MD EC BLOOD BANK ORDERABLES Performing Organization Address City/[facility]/ZIP [facility] Phon e Number [facility] BLOOD BANK [address] [place] [address] (ABNORMAL) HEMOGLOBIN (03/22/2022 5:09 PM CDT) P athologist Signature HGB 9.0 (L) 12.9 - 16.9 03/22/2022 [facility] g/dL 5:31 PM CDT HOSPITAL LABORATORY Specimen Anatomical Collection Method / Collection Time Recei eloina Time (Source) Location / Volume Laterality Blood BLOOD SPECIMEN / Venipuncture / 03/22/2022 5:09 2021 5:28 Unknown Unknown PM CDT PM CDT Yoko Johnson MD EC HEMATOLOGY ORDERABLES Performing Organization Address City/[facility]/ZIP [facility] Phon e Number [facility] [address] [place] [phone] IR ANGIOGRAM SELECTIVE EACH ADDL VESSEL (03/22/2022 4:26 PM CDT) Anatomical Region Laterality Modality Abdomen, Pelvis, Vascular, Leg, Arm X-Ra y Angiography Specimen (Source) Anatomical Collection Method Collection Time Re ceived Time Location / / Volume Laterality 03/22/2022 4:26 PM CDT Narrative 03/22/2022 4:45 PM CDT This document is currently in Final Status Exam Procedure: Mesenteric angiogram Primary boiler or engine operator: Yair Jones MD Preoperative diagnosis: GI bleed [...] raegan r. Ultrasound performed of the right jreemy in, demonstrating a patent right common femoral artery and image archived. A micropuncture needle was then used to access the artery under ultrasound guidance. Th e microwire was then placed, followed by the micro sheath. This was exchanged for a 5 Fr vascular sheath over a [employer] wire. A 5-British Motarjamie catheter was used to select the inferior mesenteric ar lucita. Angiogram obtained, showing widely patent artery with supply to the region of interest (distal descending colon/proximal sigmoid colon). No active contrast extravasation identified. A 2.8 British m icrocatheter was advanced over a wire [...] Stat us Exam Procedure: Mesenteric angiogram Primary boiler or engine operator: Yair Jones MD Preoperative diagnosis: GI bleed [...] placed, followed by the micro ana rosa hsieh. This was exchanged for a 5 Fr vascular sheath over a [employer] wire. A 5-British Motarjamie catheter was used to select the inferior mesenteric artery. Angiogram obtained, showing widely patent artery with supply to the region of interest (distal descending colon/proximal sigmoid colon). No active contrast extravasation identified. A 2.8 British microcatheter was advanced over a wire further [...] SMA collat erals intact (marginal artery of [place]). PLAN: If evidence of rebleeding, recomme nd [...] Final Status Exam Procedure: Mesenteric angiogram Primary boiler or engine operator: Yair Jones MD Preoperative diagnosis: GI bleed [...] vascular sheath over a Bentson wire. A 5-British Motarjamie catheter was used to select the inferior mesenteric ar lucita. Angiogram obtained, showing widely patent artery with supply to the region of interest (distal descending colon/proximal sigmoid colon). No active contrast extravasation identified. A 2.8 British m icrocatheter was advanced over a wire [...] Stat us Exam Procedure: Mesenteric angiogram Primary boiler or engine operator: Yair Jones MD Preoperative diagnosis: GI bleed [...] vascular sheath over a Bentson wire. A 5-British Motarjamie catheter was used to select the inferior mesenteric artery. Angiogram obtained, showing widely patent artery with supply to the region of interest (distal descending colon/proximal sigmoid colon). No active contrast extravasation identified. A 2.8 British microcatheter was advanced over a wire further [...] SMA collat erals intact (marginal artery of [place]). PLAN: If evidence of rebleeding, recomme nd endoscopy. Should this fail to stop the bleeding, repeat angiography could be entertained, though the ARA will likely not be amenable to catheterization due to dissection. It may be feasible to access the area of bleedi ng via the SMA/marginal artery of [place], though this may prove difficult and places [...] Final Status Exam Procedure: Mesenteric angiogram Primary boiler or engine operator: Yair Jones MD Preoperative diagnosis: GI bleed [...] vascular sheath over a Bentson wire. A 5-British Motarjamie catheter was used to select the inferior mesenteric ar lucita. Angiogram obtained, showing widely patent artery with supply to the region of interest (distal descending colon/proximal sigmoid colon). No active contrast extravasation identified. A 2.8 British m icrocatheter was advanced over a wire [...] of bleeding via the SMA/marginal artery of [place], though this may prove difficult and places the SMA/marginal artery at risk of dissection, which could compromise colonic blood supply. Electronically Signed: Dr. Yair Jones 4:45 PM Procedure Note Yair Jones MD - 03/22/2022 This document is currently in Final Stat us Exam Procedure: Mesenteric angiogram Primary boiler or engine operator: Yair Jones MD Preoperative diagnosis: GI bleed [...] vascular sheath over a Bentson wire. A 5-British Motarjamie catheter was used to select the inferior mesenteric artery. Angiogram obtained, showing widely patent artery with supply to the region of interest (distal descending colon/proximal sigmoid colon). No active contrast extravasation identified. A 2.8 British microcatheter was advanced over a wire further [...] Jones 4:45 PM Yoko Johnson MD EC US ORDERABLES RED BLOOD CELLS (03/22/2022 2:28 PM CDT) [facility] gist Method Time Signature Leukoreduced RBC [id number] 03/23/2022 p.Transfused 8:05 AM FIELD SERVICE REPRESENTATIVE 03/23/22 08:05 [facility] Unit ABO Type O 03/23/2022 8:05 AM FIELD SERVICE REPRESENTATIVE Unit Rh Type POS 03/23/2022 8:05 AM FIELD SERVICE REPRESENTATIVE Unit Number [id number] 03/23/2022 8:05 AM FIELD SERVICE REPRESENTATIVE Unit Status transfused 03/23/2022 8:05 AM FIELD SERVICE REPRESENTATIVE Unit Barcoded [id number] 03/23/2022 Product Code 8:05 AM FIELD SERVICE REPRESENTATIVE Specimen Anatomical Collection Method Collection Time Receive d Time (Source) Location / / Volume Laterality Blood BLOOD SPECIMEN / 03/22/2022 2:28 PM 03/22 2:34 Unknown CDT PM CDT Narrative [facility] LABORATORY - 8:05 AM FIELD SERVICE REPRESENTATIVE Type and Screen required for all RBC pro ducts.Transfusion Indications:->Clinically significant acute bloodloss1 UNITS Mere Ewing APRN, CNP EC BLOOD BANK ORDERABLES Performing Organization Address City/State/ZIP Code Phon e Number [facility] LABORATORY [address] [facility] [place] [address] (ABNORMAL) PROTIME (03/22/2022 2:28 PM CDT) athologist Signature INR 1.3 (H) 0.9 - 1.1 03/22/2022 [facility] 2:49 PM CDT [facility] LABORATORY Protime 15.6 (H) 12.0 - 14.1 03/22/2022 [facility] sec 2:49 PM CDT HOSPITAL LABORATORY Specimen Anatomical Collection Method / Collection Time Recei eloina Time (Source) Location / Volume Laterality Blood BLOOD SPECIMEN / Venipuncture / 03/22/2022 2:28 2021 2:34 Unknown Unknown PM CDT PM CDT Narrative [facility] LABORATORY - 11/05/202 2 2:49 PM CDT Suggested therapeutic INR ranges for oral anticoagulant therapy: Category ? INR Value Prophylaxis ?2.0-3.0 Treat Thrombosis or Embolism ? 2.0-3 .0 Prosthetic Heart Valve ? 2. 5-3.5 Yoko Johnson MD EC HEMATOLOGY ORDERABLES Performing Organization Address [facility] Phon e Number [facility] LABORATORY [address] [place] [phone] TROPONIN I (03/22/2022 2:28 PM CDT) P athologist Signature Troponin I 0.020 0.000 - 03/22/2022 [facility] 0.028 ng/mL 2:59 PM CDT HOSPITAL LABORATORY Specimen Anatomical Collection Method / Collection Time Recei eloina Time (Source) Location / Volume Laterality Blood BLOOD SPECIMEN / Venipuncture / 03/22/2022 2:28 2021 2:34 Unknown Unknown PM CDT PM CDT Narrative [facility] LABORATORY - 2 2:59 PM CDT Because no pediatric reference range elvira a is published, the adult reference range will be utilized as this represents 99% of healthy adults. Yoko Johnson MD EC CHEMISTRY ORDERABLES Performing Organization Address [facility] Phon e Number [facility] LABOR[facility] [address] [place] [phone] LACTIC ACID, VENOUS (03/22/2022 2:28 PM CDT) P athologist Signature Lactic Acid, 1.0 0.5 - 2.0 03/22/2022 [facility] Venous mmol/L 2:49 PM CDT HOSPITAL LABORATORY Specimen Anatomical Collection Method / Collection Time Recei eloina Time (Source) Location / Volume Laterality Blood BLOOD SPECIMEN / Venipuncture / 03/22/2022 2:28 2021 2:34 Unknown Unknown PM CDT PM CDT Yoko Johnson MD EC CHEMISTRY ORDERABLES Performing Organization Address [facility]/State/ZIP [facility] Phon e Number [facility] [facility] [address] [place] [address] PHOSPHORUS (03/22/2022 2:28 PM CDT) P athologist Signature Phosphorus 3.2 2.5 - 4.6 03/22/2022 [facility] mg/dL 2:54 PM CDT HOSPITAL LABORATORY Specimen Anatomical Collection Method / Collection Time Recei eloina Time (Source) Location / Volume Laterality Blood BLOOD SPECIMEN / Venipuncture / 03/22/2022 2:28 2021 2:34 Unknown Unknown PM CDT PM CDT Yoko Johnson MD EC CHEMISTRY ORDERABLES Performing Organization Address City/[facility]/ZIP [facility] Phon e Number [facility] [address] [place] [phone] (ABNORMAL) MAGNESIUM (03/22/2022 2:28 PM CDT) athologist Signature Magnesium 1.7 (L) 1.8 - 2.7 03/22/2022 [facility] mg/dL 2:54 PM CDT HOSPITAL LABORATORY Specimen Anatomical Collection Method / Collection Time Recei eloina Time (Source) Location / Volume Laterality Blood BLOOD SPECIMEN / Venipuncture / 03/22/2022 2:28 2021 2:34 Unknown Unknown PM CDT PM CDT Yoko Johnson MD EC CHEMISTRY ORDERABLES Performing Organization Address City/[facility]/ZIP [facility] Phon e Number [facility] [address] [place] [phone] (ABNORMAL) COMPREHENSIVE METABOLIC PANEL (03/22/2022 2:28 PM CDT) Analysis Performed At Patho logist Time Signature Sodium 142 134 - 143 03/22/2022 [facility] mEq/L 2:54 PM CDT HOSPITAL LAB[facility] Potassium 4.5 3.4 - 5.1 03/22/2022 [facility] mEq/L 2:54 PM CDT HOSPITAL LABOR[facility]ORY Chloride 114 (H) 99 - 110 03/22/2022 [facility] mEq/L 2:54 PM CDT HOSPITAL LABOR[facility]ORY Carbon Dioxide 19 19 - 29 03/22/2022 [facility] mEq/L 2:54 PM CDT [facility]OSPITAL LAB[facility] Anion Gap 9.0 3.0 - 15.0 03/22/2022 [facility] mEq/L 2:54 PM [facility] Blood Urea 26 (H) 5 - 24 03/22/2022 [facility] Nitrogen mg/dL 2:54 PM [facility] Creatinine 0.98 0.70 - 03/22/2022 [facility] 1.20 mg/dL 2:54 PM [facility] Glomerular 75 >60 03/22/2022 [facility] Filtration Rate mL/min/1.7 2:54 PM [facility] 3 m*2 LABORATORY Comment: Risk of cardiovascular disease increases when GFR is abnormal; persistently reduced GFR values are a specific indica tion of CKD. This calculation uses CKD-EPI 2020 equation without adjustment for rac e; it has not been validated in women. Calcium 8.3 (L) 8.4 - 10.5 03/22/2022 2:[address] [facility] mg/dL T LABORATORY Glucose 208 (H) 70 - 99 mg/dL 03/22/2022 2:54 PM [facility] Protein, Total 5.0 (L) 6.0 - 8.0 03/22/2022 2:54 PM [facility] g/dL T LABORATORY Albumin 2.9 (L) 3.5 - 5.0 03/22/2022 2:54 PM [facility] g/dL T LABORATORY Alkaline Phosphatase 81 40 - 150 IU/L 03/22/2022 2:54 PM [facility] Aspartate 16 10 - 40 IU/L 03/22/2022 2:54 PM [facility] Aminotransferase T LABORATORY Alanine Aminotransferase 13 6 - 40 IU/L 03/22/2022 2: 54 PM [facility] Bilirubin, Total 0.5 0.2 - 1.2 03/22/2022 2:54 PM [facility] mg/dL CDT LABORATORY Specimen Anatomical Collection Method / Collection Time Recei eloina Time (Source) Location / Volume Laterality Blood BLOOD SPECIMEN / Venipuncture / 03/22/2022 2:28 2021 2:34 Unknown Unknown PM CDT PM CDT Narrative [facility] - 2 2:54 PM CDT Current ADA criteria for Glucose: ?Normal: 70-99 mg/dL ?Impaired Fasting Glucose: 100-125 mg/dL ?Diabetes Mellitus: at or above 126 mg/dL The diagnosis of diabetes must be confir med on a subsequent day by measuring Fasting Plasma Glucose, 2-hr PG or random plasma glucose (if symptoms are present). Yoko Johnson MD EC CHEMISTRY ORDERABLES Performing Organization Address [facility] Phon e Number [facility] [address] [facility] [place] [address] (ABNORMAL) HEMOGRAM (03/22/2022 2:28 PM CDT) athologist Signature WBC 56.7 (HH) 3.2 - 11.0 03/22/2022 [facility] 10*9/L 3:22 PM T [facility] RBC 3.42 (L) 4.14 - 03/22/2022 [facility] 5.76 3:22 PM [facility] 10*12/L LABORATORY HGB 10.0 (L) 12.9 - 03/22/2022 [facility] 16.9 g/dL 3:22 PM T [facility] HCT 31.3 (L) 38.4 - 03/22/2022 [facility] 49.7 % 3:22 PM [facility] MCV 91.5 81.4 - 03/22/2022 [facility] 99.0 fL 3:22 PM T [facility] MCH 29.2 26.7 - 03/22/2022 [facility] 33.1 pg 3:22 PM [facility] MCHC 31.9 31.6 - 03/22/2022 [facility] 35.5 g/dL 3:22 PM [facility] RDW 14.6 11.3 - 03/22/2022 [facility] 14.6 % 3:22 PM [facility] PLT 193 130 - 375 03/22/2022 [facility] 10*9/L 3:22 PM [facility] Specimen Anatomical Collection Method / Collection Time Recei eloina Time (Source) Location / Volume Laterality Blood BLOOD SPECIMEN / Venipuncture / 03/22/2022 2:28 2021 2:34 Unknown Unknown PM CDT PM CDT Yoko Johnson MD EC HEMATOLOGY ORDERABLES Performing Organization Address City/[facility]/ZIP Code Phon e Number [facility] [address] [place] [address] TYPE AND SCREEN (03/22/2022 2:28 PM CDT) P athologist Signature ABO Group O 03/22/2022 [facility] 3:12 PM CDT [facility] BLOOD BANK RH Type POS 03/22/2022 [facility] 3:12 PM CDT [facility]OD [facility] Antibody Screen NEG 03/22/2022 [facility] 3:12 PM CDT [facility] B[facility]OD B[facility] Specimen Anatomical Collection Method / Collection Time Recei eloina Time (Source) Location / Volume Laterality Blood BLOOD SPECIMEN / Venipuncture / 03/22/2022 2:28 2021 2:34 Unknown Unknown PM CDT PM CDT Yoko Johnson MD EC BLOOD BANK ORDERABLES Performing Organization Address [facility]/ZIP [facility] Phon e Number [facility] B[facility]OD B[facility] [address] [place] [address] (ABNORMAL) GLUCOSE, METER (03/22/2022 2:25 PM CDT) P athologist Signature Glucose Meter 183 (H) 70 - 99 03/22/2022 [facility] mg/dL 4:07 PM CDT HOSPITAL POINT OF CARE Specimen Anatomical Collection Method Collection Time Receive d Time (Source) Location / / Volume Laterality Blood BLOOD SPECIMEN / 03/22/2022 2:25 PM 03/22 4:07 Unknown CDT PM CDT Yoko Johnson MD EC CHEMISTRY ORDERABLES Performing Organization Address City/[facility]/ZIP [facility] Phon e Number [facility] POINT OF CARE [address] [place], [place] [address] documented in this encounter Visit Diagnoses Diagnosis Hemorrhagic shock (HCC) - Primary Other shock without mention of trauma Hemorrhagic shock (HCC) Other shock without mention of trauma BRBPR (bright red blood per rectum) Hemorrhage of rectum and anus Hospital discharge follow-up Other follow-up examination BRBPR (bright red blood per rectum) Hemorrhage of rectum and anus Hemorrhagic shock (HCC) Other shock without mention of trauma BRBPR (bright red blood per rectum) Hemorrhage of rectum and anus documented in this encounter Administered Medications Inactive Administered Medications Medication Order MAR Action Action Date Dose Rate Site acetaminophen (Tylenol) tablet Given 03/24/2022 12:09 AM FIELD SERVICE REPRESENTATIVE 500 mg 500 mg 500 mg, Oral, EVERY 4 HOURS NEEDED, Starting on Thu03/22/22 at 2055, Until Thu03/25/22 at 2142, Mild Pain (1-3) Given 03/23/2022 11:28 AM FIELD SERVICE REPRESENTATIVE 500 mg Given 03/22/2022 9:19 PM CDT 500 mg aspirin chewable tablet 81 mg Given 03/25/2022 8:02 AM FIELD SERVICE REPRESENTATIVE 81 mg 81 mg, Chew, ONCE DAILY, First dose on Thu03/25/22 at 0900, Until Discontinued atorvaSTATin (Lipitor) tablet 20 mg Given 03/24/2022 5:05 PM FIELD SERVICE REPRESENTATIVE 20 mg 20 mg, Oral, WITH SUPPER, First dose on Thu03/24/22 at 1800, Until Discontinued carvedilol (Coreg) tablet 12.5 mg Given 03/25/2022 4:35 PM FIELD SERVICE REPRESENTATIVE 12.5 mg 12.5 mg, Oral, 2 TIMES DAILY WITH MEALS, First dose (after last modification) on Thu03/25/22 at 0830, Until Discontinued Given 03/25/2022 8:02 AM FIELD SERVICE REPRESENTATIVE 12.5 mg dextrose (D50) 50 % injection 12.5-25 g 12.5-25 g, IV Push, NEEDED, Starting on Thu03/22/22 at 1459, Until Thu03/25/22 at 2142, Hypoglycemia docusate sodium (Colace) capsule 100 mg Given 03/25/2022 8:02 AM FIELD SERVICE REPRESENTATIVE 100 mg 100 mg, Oral, ONCE DAILY, First dose on Thu03/24/22 at 1300, Until Discontinued Given 03/24/2022 2:27 PM FIELD SERVICE REPRESENTATIVE 100 mg glucagon (diagnostic) (Glucagen) injecti on 1 mg 1 mg, Intramuscular, NEEDED, Starting on Thu03/22/22 at 1459, Until Thu03/25/22 at 2143, Hypoglycemia glucose (Glutose) 40 % gel 37.5-112.5 g 37.5-112.5 g, Oral, NEEDED, Starting on Thu03/22/22 at 1459, Until Thu03/25/22 at 2143, Hypoglycemia insulin aspart (NovoLOG) injection Given 03/25/2022 1:10 PM FIELD SERVICE REPRESENTATIVE 1 Units (CORRECTION DOSE) 0-20 Units 0-20 Units, Subcutaneous, WITH MEALS AND BEDTIME, First dose (after last modification) on Thu03/24/22 at 1200, Until Discontinued, Blood Glucose Target - Daytime (mg/dL): 160, Blood Glucose Target - Bedtime and Overnight (mg/dL): 160, Hyperglycemia Correction Factor - Daytime: 30, Hyperglycemia Correction Factor - Bedtime and Overnight: 30 Given 03/25/2022 7:59 AM FIELD SERVICE REPRESENTATIVE 2 Units ondansetron (Zofran ODT) disintegrating tablet 4 mg 4 mg, Oral, EVERY 6 HOURS NEEDED, Starting on Thu 1 05/22/21 at 1443, Until Thu03/25/22 at 2143, Nausea, Vomiting ondansetron (Zofran) injection 4 mg 4 mg, IV Push, EVERY 6 HOURS NEEDED, Starting on Thu03/22/22 at 1443, Until Thu03/25/22 at 2143, Nausea, Vomiting pantoprazole (Protonix) tablet 40 mg Given 03/25/2022 4:36 PM FIELD SERVICE REPRESENTATIVE 40 mg 40 mg, Oral, DAILY AT 1700, First dose on Thu03/24/22 at 1700, Until Discontinued Given 03/24/2022 5:06 PM FIELD SERVICE REPRESENTATIVE 40 mg sodium chloride 0.9% IV LINE FLUSH (NS) BAG 30 mL 30 mL, IV Flush, SEE ADMINISTRATION INST RUCTIONS, Starting on Thu03/22/22 at 1443, Until Thu03/25/22 at 2143, Other, priming/flush fluid documented in this encounter Discontinued Medications Medication [...] may contain times in both CDT and FIELD SERVICE REPRESENTATIVE. Scheduled Medication Order 03/23/2022 03/24/2022 03/25/2022 aspirin chewable tablet 81 mg 08 (Given - Provider: Slime Epps RN) 81 mg, Chew, ONCE DAILY, First dose on Thu03/25/22 at 0900, Until Discontinued atorvaSTATin (Lipitor) tablet 20 mg 170 (Given - Provider: Jomar Wilson RN) 20 mg, Oral, WITH SUPPER, First dose on Thu03/24/22 at 1800, Until Discontinued carvedilol (Coreg) tablet 12.5 mg 08 (Given - Provider: Slime Epps RN)1635 (Given [...] 100 mg 1427 (Given - Provider: Jomar Wilson RN) 0802 (Given - Provider: Slime shearer RN) 100 mg, Oral, ONCE DAILY, First dose on Thu03/24/22 at 1300, Until Discontinued insulin aspart (NovoLOG) injection (CORRECTION DOSE) 0-20 Un its 1150 (Not Given - Provider: Jomar Wilson RN - Reason: Order Parameters not met)1709 (Not Given - Provider: Jomar Wilson RN - Reason: Order Parameters not met)2208 (Not [...] (COMPLETED) 1700 (New Bag - Provider: Franchesca Leo RN) 500 mL, Intravenous, at 1,000 mL/hr, ONCE, 1 dose, On Thu 2 at 1700 metoprolol tartrate (Lopressor) tablet 25 mg (COMPLETED) 0105 (Given - Provider: Nathan Peacock RN) 25 mg, Oral, ONCE, 1 dose, On Thu03/25/22 at 0130 metroNIDAZOLE (Flagyl) infusion 500 mg (CANCELED) 0553 (New Bag - Provider: Antony Sherman RN)0623 (Stopped - Provider: Antony Sherman RN) 500 mg, Intravenous, at 200 mL/hr, EVERY 8 HOURS, First dose on Thu03/23/22 at 0600, Until Discontinued, Indication? suspected infection, Antibiotic Indication for Use: Intra-Abdominal Infection midodrine (Proamatine) tablet 10 mg (CANCELED) 2105 (G iven - Provider: Antony Sherman, HOLLY) 10 mg, Oral, 2 TIMES DAILY, First dose o n Letts 03/23/22 at 2100, Until Discontinued pantoprazole (Protonix) injection 40 mg (CANCELED) 112 8 (Given - Provider: Franchesca Leo RN) 0836 (Given - Provider: Jomar Wilson, HOLLY) 40 mg, IV Push, ONCE DAILY, First dose o n Letts 03/23/22 at 1100, Until Discontinued pantoprazole (Protonix) tablet 40 mg 170 6 (Given - Provider: Jomar Wilson RN) 1636 (Given - Provider: Jomar Wilson, HOLLY) 40 mg, Oral, DAILY AT 1700, First dose o n 03/24/22 at 1700, Until Discontinued perflutren lipid microsphere (Definity) injection 1.3 mL (COMPLETED) 1228 (Given - Provider: Summer Olsen - Comment: lot [id number]) 1.3 mL, IV Push, ONCE, 1 dose, On 03/23/22 at 1230 polyethylene glycol (GoLYTELY) 236 g solution 4,000 mL (COMPLETED) 0934 (Given - Provider: Franchesca Leo, HOLLY) 4,000 mL, Oral, ONCE, 1 dose, On 03/23/22 at 0830 Continuous Medication Order 03/23/2022 03/24/2022 03/25/2022 norepinephrine (Levophed) 16 mcg/mL in sodium chloride 0.9% infusion (CANCELED) 0000 (Rate/Dose Change - Provider: Antony Sherman RN)0015 (Rate/Dose Change - Provider: Antony Sherman RN)0030 (Rate/Dose Change - Provider: Antony Sherman RN)0230 (Rate/Dose Change - Provider: Antony Sherman RN) 0100 (Stopped - Provider: Anotny Sherman RN)0215 (Restarted - Provider: Antony Sherman [...] S tarting on 03/22/22 at 2055, Until Tu03/25/22 at 2143, Mild Pain (1-3) dextrose (D50) 50 % injection 12.5-25 g 12.5-25 g, IV Push, NEEDED, Starting on 03/22/22 at 1459, Until Tu03/25/22 at 2143, Hypoglycemia glucagon (diagnostic) (Glucagen) injection 1 mg 1 mg, Intramuscular, NEEDED, Starting on 03/22/22 at 1459, Until 03/25/22 at 2143, Hypoglycemia glucose (Glutose) 40 % gel 37.5-112.5 g 37.5-112.5 g, Oral, NEEDED, Starting on 03/22/22 at 1459, Until Tu03/25/22 at 2143, Hypoglycemia ondansetron (Zofran ODT) disintegrating tablet 4 mg(Linked Group 1) 4 mg, Oral, EVERY 6 HOURS NEEDED, Sta rting on 03/22/22 at 1443, Until Tu03/25/22 at 2143, Nausea, Vomiting ondansetron (Zofran) injection 4 mg(Linked Group 1) 4 mg, IV Push, EVERY 6 HOURS NEEDED, Starting on 03/22/22 at 1443, Until Thu03/25/22 at 2143, Nausea, Vomiting sodium chloride 0.9% IV LINE FLUSH (NS) BAG 30 mL 30 mL, IV Flush, SEE ADMINISTRATION INST RUCTIONS, Starting on 03/22/22 at 1443, Until Tu03/25/22 at 2143, Other, priming/flush fluid Linked Groups [...] ered Date First Ordered Date Been Administered metoprolol tartrate (Lopressor) tablet 25 1 2021 mg aspirin chewable tablet 81 mg 1 03/24/2022 atorvaSTATin (Lipitor) tablet 20 mg 1 03/24/2022 carvedilol (Coreg) tablet 12.5 mg 2 03/24/2022 docusate sodium (Colace) capsule 100 mg 1 03/24/20 22 insulin aspart (NovoLOG) injection 2 03/24/2022 03/22/2022 (CORRECTION DOSE) 0-20 Units pantoprazole (Protonix) tablet 40 mg 1 03/24/2022 cefTRIAXone (Rocephin) 1 g in 0.9% sodium 1 2021 chloride 50 mL (ADD-VANTAGE) lactated ringers infusion 500 mL 1 03/23/2022 metroNIDAZOLE (Flagyl) infusion 500 mg 1 midodrine (Proamatine) tablet 10 mg 1 03/23/2022 pantoprazole (Protonix) injection 40 mg 1 03/23/20 perflutren lipid microsphere (Definity) 1 03/23/20 injection 1.3 mL polyethylene glycol (GoLYTELY) 236 g 1 03/23/2022 solution 4,000 mL vasopressin (VASOSTRICT) 0.2 Units/mL in 2 022 03/22/2022 sodium chloride 0.9% (NS) infusion acetaminophen (Tylenol) tablet 500 mg 1 03/22/2022 dextrose (D50) 50 % injection 12.5-25 g 1 03/22/20 fentaNYL (Sublimaze) injection 1 03/22/2022 glucagon (diagnostic) (Glucagen) injection 1 03/22 1 mg glucose (Glutose) 40 % gel 37.5-112.5 g 1 03/22/20 heparin (porcine) injection 1 03/22/2022 iohexol (Omnipaque) 350 MG/ML 1 03/22/2022 lactated ringers BOLUS BAG 250 mL 1 03/22/2022 lactated ringers infusion 1,000 mL 1 03/22/2022 midazolam (Versed) injection 1 03/22/2022 norepinephrine (Levophed) 16 mcg/mL in 1 sodium chloride 0.9% infusion ondansetron (Zofran ODT) disintegrating 1 03/22/20 tablet [...]
--- OUTSIDE RECORDS SUMMARY | 2022-03-26 22:19 | XMS_ITS | Encounter Summary ---
:1935 Author Organization [employer] Address [address] [address] Phone Care Team Providers Name Role Phone Unavailable Primary Care Provider Unavailable Encounter Details Date Type Department Care Team Description 03/22/2022 Hospital Encounter OS FILMS DEPARTMENT Radiology, [facility] [address] [place] [address] Social History Tobacco Use Types Packs/Day Years Used Date Smoking Tobacco: Former Cigarettes 0.5 30 1952 - 1982 Smokeless Tobacco: Never Sex Assigned at Date Recorded Male 03/22/2022 3:33 PM CDT Job Start Date Occupation Industry Not on file Not on file Not on file documented as of this encounter Medications at Time of Discharge [...] a day. documented as of this encounter Discharge Disposition Disposition Code Departure Means Destination Discharged documented in this encounter Plan of Treatment Not on filedocumented as of this encounter Procedures Procedure Name Priority Date/Time Associated Diagnosis Comme nts OS CT ABDOMEN Routine 03/22/2022 1:09 PM Results for this PELVIS CDT procedure are i n the results section. documented in this encounter Results OS CT ABDOMEN PELVIS (03/22/2022 1:09 PM CDT) Specimen (Source) Anatomical Location Collection Method / Collectio n Time Received Time / Laterality Volume Narrative Yocasta, User - 03/22/2022 1:09 PM CDT The actual exam was performed at [facility] on 03/22/2022. This exam does not have a report residin g in this EMR. ??Please check for a scanned in report, Care Everywhere Outsi de Records, or call the performing location for the report. This order was placed into the system an d automatically finalized on 03/22/2022. [facility] Radiology EC OS FILMS IMAGING ORDERABL ES documented in this encounter Visit Diagnoses Not on filedocumented in this encounter
--- OUTSIDE RECORDS SUMMARY | 2022-03-26 22:19 | XMS_ITS | Encounter Summary ---
:1935 Author Organization [employer] Address [address] [address] Phone Care Team Providers Name Role Phone Unavailable Primary Care Provider Unavailable Reason for Visit Auth/Cert (Routine) Specialty Diagnoses / Procedures Referred By Contact Refer red To Contact Diagnoses Yoko Sheth MD [address] [place] [address] Referral ID Status Reason Start Date Expiration Date Visits Requ ested Visits Authorized [id number] 1 1 Encounter Details Date Type Department Care Team Description 03/22/[address] [place] [address] Yair Jones M D Mesenteric angiogram INTERVENTIONAL RADIO LOGY [address] [address] [place], [place] [phone] Surgery Details Date/Time Status Location OR Service Patient Case Case Traum a Class Class Type Case? 03/22/[address] Interventional Inpatient 5:00 PM INTERVENTIONAL IR Radiology RADIOLOGY 01 Panel 1 Procedure LRB Anes Op Region Wound Class Commen ts Mesenteric angiogram Right IV Sedation Groin Clean Surgeon Surgeon Role Service Panel Yair Jones MD Primary Interventional Radiology 1 documented in this encounter Social History [...] Sign Reading Time Taken Comments Blood Pressure 90/44 03/22/2022 5:45 PM CDT Pulse 73 03/22/2022 5:45 PM CDT Temperature 36.7 ??C (98.1 ??F) 03/22/2022 4:45 PM CDT Respiratory Rate 15 03/22/2022 5:45 PM CDT Oxygen Saturation 92% 03/22/2022 5:45 PM CDT Inhaled Oxygen Concentration - - Weight 90.2 kg (198 lb 13.7 oz) 03/22/2022 2:30 PM CDT Height 174 cm (5' 8.5) 03/22/2022 2:30 [...] is going to follow up with his saturator at [place] for Watchman Procedure. Imaging: Fluoro for possible [...] prior to discharge. Kristofer was discharged from [facility] to Home . Kristofer was seen [...] Routine Referral Type: Office Visit Referral Location: [facility] Referred to Provider: UNLISTED, PROVIDER Number of [...] date of discharge: Less than 30 minutes. INE REPAIRER MAINTENANCE documented in this encounter Discharge Instructions Tamiamary Jane L, RN - 03/22/2022 3:19 PM CDT [facility] Interventional Radiology Patient Discharge Instructions Angiogram with [...] your procedure, please call the IR coordinatorat [phone] M-F from 8:00 am - 4:00pm. If after hours, call Ask a Nurse at [phone] and press ???3?? to have a nurse return your phonecall (evenings, weekends, holidays) Call 911 for life threatening emergencies AttachmentsThe following attachments cannot be sent through Care Everywhere. Shock: First Aid (Welsh)Gastrointestinal (GI) Bleeding, When You Have (Welsh)Understanding Pouchitis (Welsh)documented in this encounter Medications at Time of [...] Departure Means Destination Comments Home and/or Self Fdc documented in this encounter Progress Notes Jomar [...] 5 MG tablet Commonly known as: Eliquis INE REPAIRER MAINTENANCE Shirley Dewey APRN, CYDNEY - 03/25/2022 10:23 AM CST Gastroenterology Progress [...] COLONOSCOPY DIAGNOSTIC; Surgeon: Kamlesh Prieto DO; Location: [facility] ENDOSCOPY ??? OTHER SURGICAL HISTORY Right 03/22/2022 Procedure: Mesenteric angiogram; Surgeon: Yair Jones MD; Location: [facility] INTERVENTIONAL RADIOLOGY FH: No family history [...] past 24 hour(s)). Shirley Dewey APRN, CYDNEY [address] Gastroenterology INE REPAIRER MAINTENANCE Ban Gutiérrez RN - 03/24/2022 11:50 AM CST Discharge planning daily update Anticipated discharge level of care per IDT: TBD Barriers for discharge planning: none identified to date Additional information: none Discharge planning updates provided to care team. Ban Gutiérrez, MSN, RN, Milk Receiver P: [phone]; F: [phone]; Pager: [phone] INE REPAIRER MAINTENANCE Mere Ewing APRN, CNP - 03/24/2022 7:45 [...] of colon), and cholecystectomy who presented to [facility] on 03/22 with bright red blood per rectum with CT angio demonstrating active contrast extravasation in the descending and proximal sigmoid colon. He was transferred to [facility] by ground due to being stable [...] as above. Will refer him to his Warehouse Order Picker at [place] to discuss Watchman procedure (appointment placed in [place] navigator) - for now will start ASA [...] prn Note and assessment/ plan discussed with Fan Balancer Dr. Jones Critical care: 45 minutes Patient [...] Acute blood loss anemia Mere Ewing APRN, LIMOUSINE DRIVER Critical Care Medicine INE REPAIRER MAINTENANCE Glynn Jones MD - 03/24/2022 7:44 AM [...] real-time polymerase chain reaction (PCR) on the SWIIM System GeneXpert System. Results should be used in [...] for this test can be found at: https://www.fda.gov/medical-devices/syyhtbptn-kooupjglsh-ytgdthb-devices/emergen ms-ohw-yputncodagmpdp ADMIT MRSA, MOLECULAR DETECTION Specimen: Nares; Swab Result Value Ref Range MRSA Not Detected Not Detected Narrative Test results must be interpreted within the context of all relevant clinical and laboratory findings. Test performance has not been evaluated in patients less than two (2) yeas of age. Method Information This test uses the SWIIM System Xpert MRSA NxG assay to detect methicillin-resistant Staphylococcus aureus (MRSA) DNA by real-time polymerase chain reaction (PCR) on the [employer] Studio Instrument System.The Xpert MRSA NxG test detects [...] and proximal sigmoid colon was transferred to [facility] and underwent CTA per IR for [...] Jones MD Pulmonary and Critical Care Medicine [facility] [address] [facility] [place] [address] INE REPAIRER MAINTENANCE Glynn Jones MD - 03/23/2022 12:27 PM [...] CELLS Result Value Ref Range Leukoreduced RBC [id number] issued 03/23/22 08:05 LLM2 Unit ABO Type O Unit Rh Type POS Unit Number [id number] Unit Status issued Unit Barcoded Product Code [id number] Narrative Type and Screen required for all [...] Nicki Urine Appearance Clear Clear Urine Specific [place] 1.015 1.003 - 1.035 Urine pH 5.5 [...] and proximal sigmoid colon was transferred to [facility] and underwent CTA per IR for [...] Jones MD Pulmonary and Critical Care Medicine [facility] [address] [facility] [address] Ban Larkin RN - 03/23/2022 8:59 AM CST [facility] ADMISSION NOTE: Readmission: No LACE score: 4 EMR reviewed, patient was independent prior to admission. Pt resides at home with family members in [place] [address]. Transfer from [facility] to [facility]. Services prior to admission include: None noted per EMR review. CM following and available to assist with discharge planning needs as they arise, or if patient/family/MD request a CM consult. 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 on 03/22 with bright red blood per rectum with CT angio demonstrating active contrast extravasation inthe descending and proximal sigmoid colon. He was transferred to [facility] by ground dueto being stable and [...] prn Note and assessment/ plan discussed with Fan Balancer Dr. Jones Critical care: 45 minutes Patient [...] Mere Ewing APRN, CYDNEY Critical Care Medicine INE REPAIRER MAINTENANCE Antony Sherman RN - 03/23/2022 1:10 AM [...] Oxygen Flow Rate: 0 Antony Sherman RN INE REPAIRER MAINTENANCE Antony Sherman RN - 03/22/2022 11:13 PM CDT 1900: Noted hypotension during bedside report. Recycled blood pressure improved, within ordered limits. 2100: Continued hypotension. Provider notified. 250 mL bolus LR ordered with 1 L LR running at 75mL/hr to follow. 0: Continued hypotension, provider notified. Levophed ordered. 2300: [...] INTERVENTIONAL RADIOLOGY CC: GI bleed HPI: Kristofer Aditya Mcmullen is a(n) 86 year old who [...] of colon), and cholecystectomy who presented to [facility] on 03/[address] angio demonstrating active contrast extravasation in the descending and proximal sigmoid colon. He was transferred to [facility] by ground due to being stable and went to IR for embolization, however there was no active bleeding, thus there was no intervention. Unfortunately during the IR procedure his AAR was iatrogenically dissected. Flow through the ARA [...] Nicki Urine Appearance Clear Clear Urine Specific [place] 1.015 1.003 - 1.035 Urine pH 5.5 [...] recommended and/or treatment reccs Dr. Kamlesh Prieto [address] Gastroenterology Willam Hooks - 03/23/2022 10:18 AM CSTAssociated Order(s): PHARMACIST MEDICATION RECONCILIATION CRIMINAL DEFENSE LAWYER Medication History obtained by: Willam Gallegos Home medication list updated using: Patient [facility] hx Spoke with the patient? Yes Number [...] Thank you, Willam Gallegos 03/23/2022, 10:18 AM INE REPAIRER MAINTENANCE Yair Jones MD - 03/22/2022 4:21 PM CDTAssociated Order(s): 32H IP CONSULT TO INTERVENTIONAL RADIOLOGIST OPERATIVE PROCEDURE PROGRESS NOTE BRIEF POST-OP NOTE Pre-Op Diagnosis: GI bleed Post-Op Diagnosis: same Procedure(s): Mesenteric angiogram Anesthesia Type: Local anesthesia with sedation Findings: Selective SMA and ARA angiography shows no contrast extravasation. No embolization performed. Angioseal, right MID LEVEL GAME DESIGNER. Surgeon(s) and Role: * Yair Jones MD [...] Increased urine frequency overnight, urine almost colorless. INE REPAIRER MAINTENANCE Care Plan - Antony Sherman RN - 03/24/2022 6:55 AM CST Patient Goals: The patient centered goal for this shift:: No bloody stools (03/23/22 2101). Evaluation of patient goal progress: met. Any goals not addressed individually are progressing as expected without changes in interventions. INE REPAIRER MAINTENANCE Brief Op Note - Kamlesh Prieto DO [...] Implant Name Type Inv. Item Serial No. Press Operator Carbon Products Lot No. LRB No. Used Action CLIP HEMOSTASIS INSTINCT PLUS DISP [id number] - [id number] CLIP HEMOSTASIS INSTINCT PLUS DISP [id number] N/ACOOK [id number] N/A 2 Implanted Kamlesh Prieto DO INE REPAIRER MAINTENANCE Care Plan - Franchesca Leo RN - [...] Anxious at times, providing reassurance throughout day. INE REPAIRER MAINTENANCE External Patient Instuctions - Kamlesh Prieto DO [...] hours if this has not improved. Call [phone] or go to the Emergency Room if you develop any of the following: - Severe abdominal or chest pain - Persistent vomiting or vomiting with blood - Black, tarry stools or red blood per rectum - Chills and/or fever of 101.5 or above Your doctor recommends these additional instructions: None If you have any problems, you may contact your physician at [facility] . Kamlesh Prieto MD KAMLESH PRIETO DO 03/23/2022 6:50:16 PM This report has been signed electronically. INE REPAIRER MAINTENANCE Admission - Yoko Johnson MD - 03/22/2022 2:45 PM CDT Critical Care Admission Note Yoko Johnson MD 03/22/2022 History of present illness 86-year-old male transferred to [facility] ICU in [place] from [place] facility where he presentedearlier today while on [...] stability, patient was transferred by ground to [facility] ICU in [place]. Past medical history Type 2 diabetes on oral medication. Stable CLL on no chemotherapy just surveillance according to patient Hypertension on 3 antihypertensives History of diverticulitis, s/p surgery 15 years ago Remote history of gallbladder surgery A. 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 Former smoker from the age of 16 [...] on CTA from sigmoid colon. Admitted to [facility] ICU in [place] 03/22. Problem list and current medical management [...] anemia, lower GI bleed Yoko Johnson MD, [facility] Pul[facility] and Critical Care documented in this encounter Plan of Treatment Pending Results Name Type Priority Associated Diagnoses Date/Ti me CULTURE, BLOOD Microbiology Routine 03/23/2022 5: 50 AM BACTERIAL MACHINE REPAIRER MAINTENANCE CULTURE, BLOOD Microbiology Routine 03/23/2022 5: 58 AM BACTERIAL MACHINE REPAIRER MAINTENANCE Scheduled Referrals Name Type Priority Associated Diagnoses Order S chedule IP DISCHARGE FOLLOW-UP REFERRAL Routine Hospital discharge Ordered: 03/24/2022 APPOINTMENTS follow-up documented as of this encounter Procedures Procedure Name Priority Date/Time Associated Comments Diagnosis GLUCOSE, METER Routine 03/25/2022 12:30 Results f or this PM MACHINE REPAIRER MAINTENANCE procedure are i n the results section. GLUCOSE, METER Routine 03/25/2022 7:47 AM Results for this MACHINE REPAIRER MAINTENANCE procedure are i n the results section. BASIC METABOLIC PANEL Routine 03/25/2022 4:04 AM Results for this MACHINE REPAIRER MAINTENANCE procedure are i n the results section. HEMOGLOBIN Timed 03/25/2022 4:04 AM Results f or this MACHINE REPAIRER MAINTENANCE procedure are i n the results section. WHITE BLOOD COUNT Routine 03/25/2022 4:04 AM Resu lts for this MACHINE REPAIRER MAINTENANCE procedure are i n the results section. MAGNESIUM Routine 03/25/2022 4:04 AM Results f or this MACHINE REPAIRER MAINTENANCE procedure are i n the results section. PHOSPHORUS Routine 03/25/2022 4:04 AM Results f or this MACHINE REPAIRER MAINTENANCE procedure are i n the results section. PLATELET COUNT Routine 03/25/2022 4:04 AM Results for this MACHINE REPAIRER MAINTENANCE procedure are i n the results section. EKG 12-LEAD Routine 03/25/2022 12:49 Results for this AM MACHINE REPAIRER MAINTENANCE procedure are i n the results section. GLUCOSE, METER Routine 03/24/2022 10:07 Results f or this PM MACHINE REPAIRER MAINTENANCE procedure are i n the results section. HEMOGLOBIN Timed 03/24/2022 8:02 PM Results f or this MACHINE REPAIRER MAINTENANCE procedure are i n the results section. GLUCOSE, METER Routine 03/24/2022 5:08 PM Results for this MACHINE REPAIRER MAINTENANCE procedure are i n the results section. HEMOGLOBIN Timed 03/24/2022 12:08 Results for this PM MACHINE REPAIRER MAINTENANCE procedure are i n the results section. GLUCOSE, METER Routine 03/24/2022 11:47 Results f or this AM MACHINE REPAIRER MAINTENANCE procedure are i n the results section. HEMOGLOBIN Timed 03/24/2022 5:48 AM Results f or this MACHINE REPAIRER MAINTENANCE procedure are i n the results section. WHITE BLOOD COUNT Routine 03/24/2022 5:48 AM Resu lts for this MACHINE REPAIRER MAINTENANCE procedure are i n the results section. PLATELET COUNT Routine 03/24/2022 5:48 AM Results for this MACHINE REPAIRER MAINTENANCE procedure are i n the results section. BASIC METABOLIC PANEL Routine 03/24/2022 3:01 AM Results for this MACHINE REPAIRER MAINTENANCE procedure are i n the results section. MAGNESIUM Routine 03/24/2022 3:01 AM Results f or this MACHINE REPAIRER MAINTENANCE procedure are i n the results section. PHOSPHORUS Routine 03/24/2022 3:01 AM Results f or this MACHINE REPAIRER MAINTENANCE procedure are i n the results section. HEMOGLOBIN Timed 03/23/2022 11:38 Results for this PM MACHINE REPAIRER MAINTENANCE procedure are i n the results section. GLUCOSE, METER Routine 03/23/2022 11:38 Results f or this PM MACHINE REPAIRER MAINTENANCE procedure are i n the results section. HEMOGLOBIN Timed 03/23/2022 5:45 PM Results f or this MACHINE REPAIRER MAINTENANCE procedure are i n the results section. GLUCOSE, METER Routine 03/23/2022 5:45 PM Results for this MACHINE REPAIRER MAINTENANCE procedure are i n the results section. COLONOSCOPY PROCEDURE 03/23/2022 5:44 PM Hemorrhagic s hock Results for this MACHINE REPAIRER MAINTENANCE (HCC) procedure are i n the results section. ADMIT MRSA, MOLECULAR Routine 03/23/2022 1:48 PM Results for this DETECTION MACHINE REPAIRER MAINTENANCE procedure are i n the results section. ECHO ADULT COMPLETE W Routine 03/23/2022 12:26 Re sults for this CONTRAST PM MACHINE REPAIRER MAINTENANCE procedure are i n the results section. RAPID SARS-COV-2 RNA Routine 03/23/2022 12:11 Res ults for this (COVID-19), MOLECULAR PM MACHINE REPAIRER MAINTENANCE proced ure are in DETECTION the results section. PROTIME Routine 03/23/2022 12:11 Results for this PM MACHINE REPAIRER MAINTENANCE procedure are i n the results section. HEMOGLOBIN Timed 03/23/2022 12:11 Results for this PM MACHINE REPAIRER MAINTENANCE procedure are i n the results section. GLUCOSE, METER Routine 03/23/2022 12:10 Results f or this PM MACHINE REPAIRER MAINTENANCE procedure are i n the results section. TRANSFUSE RED BLOOD Routine 03/23/2022 8:20 AM CELLS MACHINE REPAIRER MAINTENANCE HEMOGLOBIN Timed 03/23/2022 7:53 AM Results f or this MACHINE REPAIRER MAINTENANCE procedure are i n the results section. URINALYSIS, REFLEX TO Routine 03/23/2022 6:07 AM Results for this MICROSCOPIC MACHINE REPAIRER MAINTENANCE procedure are i n the results section. CULTURE, BLOOD Routine 03/23/2022 5:58 AM BACTERIAL MACHINE REPAIRER MAINTENANCE CULTURE, BLOOD Routine 03/23/2022 5:50 AM BACTERIAL MACHINE REPAIRER MAINTENANCE GLUCOSE, METER Routine 03/23/2022 5:44 AM Results for this MACHINE REPAIRER MAINTENANCE procedure are i n the results section. PROCALCITONIN, BLOOD Add on 03/23/2022 4:57 AM R esults for this MACHINE REPAIRER MAINTENANCE procedure are i n the results section. BASIC METABOLIC PANEL Routine 03/23/2022 4:57 AM Results for this MACHINE REPAIRER MAINTENANCE procedure are i n the results section. HEMOGLOBIN Timed 03/23/2022 4:57 AM Results f or this MACHINE REPAIRER MAINTENANCE procedure are i n the results section. WHITE BLOOD COUNT Routine 03/23/2022 4:57 AM Resu lts for this MACHINE REPAIRER MAINTENANCE procedure are i n the results section. MAGNESIUM Routine 03/23/2022 4:57 AM Results f or this MACHINE REPAIRER MAINTENANCE procedure are i n the results section. PHOSPHORUS Routine 03/23/2022 4:57 AM Results f or this MACHINE REPAIRER MAINTENANCE procedure are i n the results section. PLATELET COUNT Routine 03/23/2022 4:57 AM Results for this MACHINE REPAIRER MAINTENANCE procedure are i n the results section. [...] Results (ABNORMAL) GLUCOSE, METER (03/25/2022 12:30 PM MACHINE REPAIRER MAINTENANCE) athologist Signature Glucose Meter 179 (H) 70 - 99 03/25/2022 [facility] mg/dL 12:37 PM MACHINE REPAIRER MAINTENANCE [facility] Specimen Anatomical Collection Method Collection Time Receive d Time (Source) Location / / Volume Laterality Blood BLOOD SPECIMEN / 03/25/2022 12:30 022 Unknown PM MACHINE REPAIRER MAINTENANCE 12:37 PM MACHINE REPAIRER MAINTENANCE Agustin Palacio MD EC CHEMISTRY ORDERABLES Performing Organization Address [facility] Phon e Number [facility] [address] [place] [address] [phone] (ABNORMAL) GLUCOSE, METER (03/25/2022 7:47 AM MACHINE REPAIRER MAINTENANCE) athologist Signature Glucose Meter 223 (H) 70 - 99 03/25/2022 [facility] mg/dL 7:54 AM [facility] Specimen Anatomical Collection Method Collection Time Receive d Time (Source) Location / / Volume Laterality Blood BLOOD SPECIMEN / 03/25/2022 7:47 AM 03/25 7:54 Unknown MACHINE REPAIRER MAINTENANCE AM MACHINE REPAIRER MAINTENANCE Agustin Palacio MD EC CHEMISTRY ORDERABLES Performing Organization Address [facility] Phon e Number [facility] [address] [place] [address], [place] [phone] PLATELET COUNT (03/25/2022 4:04 AM MACHINE REPAIRER MAINTENANCE) athologist Signature PLT 130 130 - 375 03/25/2022 [facility] 10*9/L 4:31 AM MACHINE REPAIRER MAINTENANCE [facility] Specimen Anatomical Collection Method / Collection Time Recei eloina Time (Source) Location / Volume Laterality Blood BLOOD SPECIMEN / Venipuncture / 03/25/2022 4:04 2021 4:23 Unknown Unknown AM MACHINE REPAIRER MAINTENANCE AM MACHINE REPAIRER MAINTENANCE Yoko Johnson MD EC HEMATOLOGY ORDERABLES Performing Organization Address [facility] Phon e Number [facility] [address], [place] [address] (ABNORMAL) WHITE BLOOD COUNT (03/25/2022 4:04 AM MACHINE REPAIRER MAINTENANCE) P athologist Signature WBC 45.0 (H) 3.2 - 11.0 03/25/2022 [facility] 10*9/L 4:31 AM MACHINE REPAIRER MAINTENANCE [facility] Specimen Anatomical Collection Method / Collection Time Recei eloina Time (Source) Location / Volume Laterality Blood BLOOD SPECIMEN / Venipuncture / 03/25/2022 4:04 2021 4:23 Unknown Unknown AM MACHINE REPAIRER MAINTENANCE AM MACHINE REPAIRER MAINTENANCE Yoko Johnson MD EC HEMATOLOGY ORDERABLES Performing Organization Address [facility] Phon e Number [facility] [address] [place] [phone] PHOSPHORUS (03/25/2022 4:04 AM MACHINE REPAIRER MAINTENANCE) P athologist Signature Phosphorus 2.5 2.5 - 4.6 03/25/2022 [facility] mg/dL 4:46 AM MACHINE REPAIRER MAINTENANCE [facility] Specimen Anatomical Collection Method / Collection Time Recei eloina Time (Source) Location / Volume Laterality Blood BLOOD SPECIMEN / Venipuncture / 03/25/2022 4:04 2021 4:24 Unknown Unknown AM MACHINE REPAIRER MAINTENANCE AM MACHINE REPAIRER MAINTENANCE Yoko Johnson MD EC CHEMISTRY ORDERABLES Performing Organization Address [facility] Phon e Number [facility] [address] [place] [phone] MAGNESIUM (03/25/2022 4:04 AM MACHINE REPAIRER MAINTENANCE) P athologist Signature Magnesium 1.9 1.8 - 2.7 03/25/2022 [facility] mg/dL 4:46 AM MACHINE REPAIRER MAINTENANCE [facility]ITAL [facility] Specimen Anatomical Collection Method / Collection Time Recei eloina Time (Source) Location / Volume Laterality Blood BLOOD SPECIMEN / Venipuncture / 03/25/2022 4:04 2021 4:24 Unknown Unknown AM MACHINE REPAIRER MAINTENANCE AM MACHINE REPAIRER MAINTENANCE Yoko Johnson MD EC CHEMISTRY ORDERABLES Performing Organization Address [facility] Phon e Number [facility] [address] [place] [phone] (ABNORMAL) BASIC METABOLIC PANEL (03/25/2022 4:04 AM MACHINE REPAIRER MAINTENANCE) Analysis Performed At Patho logist Time Signature Sodium 140 134 - 143 03/25/2022 [facility] mEq/L 4:46 AM [facility] Potassium 3.7 3.4 - 5.1 03/25/2022 [facility] mEq/L 4:46 AM [facility] Chloride 112 (H) 99 - 110 03/25/2022 [facility] mEq/L 4:46 AM [facility] Carbon Dioxide 22 19 - 29 03/25/2022 [facility] mEq/L 4:46 AM [facility] Anion Gap 6.0 3.0 - 15.0 03/25/2022 [facility] mEq/L 4:46 AM [facility] Blood Urea 18 5 - 24 03/25/2022 [facility] Nitrogen mg/dL 4:46 AM [facility] Creatinine 0.92 0.70 - 03/25/2022 [facility] 1.20 mg/dL 4:46 AM [facility] Glomerular 81 >60 03/25/2022 [facility] Filtration Rate mL/min/1.7 4:46 AM [facility] 3 m*2 LABORATORY Comment: Risk of cardiovascular disease increases when GFR is abnormal; persistently reduced GFR values are a specific indica tion of CKD. This calculation uses CKD-EPI 2020 equation without adjustment for rac e; it has not been validated in women. Calcium 8.1 (L) 8.4 - 10.5 mg/dL 03/25/2022 4:46 AM [facility] Glucose 164 (H) 70 - 99 mg/dL 03/25/2022 4:46 AM [facility] Specimen Anatomical Collection Method / Collection Time Recei eloina Time (Source) Location / Volume Laterality Blood BLOOD SPECIMEN / Venipuncture / 03/25/2022 4:04 2021 4:24 Unknown Unknown AM [facility] AM [facility] Narrative [facility] - 4:46 AM [facility] Current ADA criteria for Glucose: ?Normal: 70-99 mg/dL ?Impaired Fasting Glucose: 100-125 mg/dL ?Diabetes Mellitus: at or above 126 mg/dL The diagnosis of diabetes must be confir med on a subsequent day by measuring Fasting Plasma Glucose, 2-hr PG or random plasma glucose (if symptoms are present). Yoko Johnson MD EC CHEMISTRY ORDERABLES Performing Organization Address City/State/ZIP Code Phon e Number [facility] [address], [place] [address] (ABNORMAL) HEMOGLOBIN (03/25/2022 4:04 AM MACHINE REPAIRER MAINTENANCE) P athologist Signature HGB 7.7 (L) 12.9 - 16.9 03/25/2022 [facility] g/dL 4:28 AM [facility] Specimen Anatomical Collection Method / Collection Time Recei eloina Time (Source) Location / Volume Laterality Blood BLOOD SPECIMEN / Venipuncture / 03/25/2022 4:04 2021 4:23 Unknown Unknown AM MACHINE REPAIRER MAINTENANCE AM MACHINE REPAIRER MAINTENANCE Mere Ewing COLORING MACHINE OPERATOR, LIMOUSINE DRIVER EC HEMATOLOGY ORDERABLES Performing Organization Address [facility] Phon e Number [facility] [address], [place] [address] EKG 12-LEAD (03/25/2022 12:49 AM MACHINE REPAIRER MAINTENANCE) P athologist Signature Ventricular Rate 110 BPM MUSE Atrial Rate 110 BPM MUSE P-R Interval 168 ms MUSE QRS Duration 162 ms MUSE QT 404 ms MUSE QTc 546 ms MUSE R [place] -65 degrees MUSE T [place] 11 degrees MUSE Specimen (Source) Anatomical Collection Method Collection Time Re ceived Time Location / / Volume Laterality 03/25/2022 12:49 AM MACHINE REPAIRER MAINTENANCE Narrative MUSE - 03/25/2022 8:03 AM MACHINE REPAIRER MAINTENANCE Confirming Luisito Forbes MD Wide QRS tachycardia Possible Atrial flu tter Right bundle branch block Left anterior fascicular block Bifascicular block Abnormal ECG No previous ECGs available Procedure Note Aileen Forbse MD - 03/25/2022F ormatting of this note might be different from the original. Confirming Doc Aileen Forbes MD Wide QRS tachycardia Possible Atrial flu tter Right bundle branch block Left anterior fascicular block Bifascicular block Abnormal ECG No previous ECGs available Santos Blanc MD IP ECG ORDERABLES Performing Organization Address City/[facility]/ZIP Code Phon e Number MUSE (ABNORMAL) GLUCOSE, METER (03/24/2022 10:07 PM MACHINE REPAIRER MAINTENANCE) P athologist Signature Glucose Meter 168 (H) 70 - 99 03/24/2022 [facility] mg/dL 10:15 PM MACHINE REPAIRER MAINTENANCE [facility] POINT OF CARE Specimen Anatomical Collection Method Collection Time Receive d Time (Source) Location / / Volume Laterality Blood BLOOD SPECIMEN / 03/24/2022 10:07 022 Unknown PM MACHINE REPAIRER MAINTENANCE 10:15 PM MACHINE REPAIRER MAINTENANCE Agustin Palacio MD EC CHEMISTRY ORDERABLES Performing Organization Address City/[facility]/ZIP [facility] Phon e Number [facility] POINT OF CARE [address] [place], [place] [address] (ABNORMAL) HEMOGLOBIN (03/24/2022 8:02 PM MACHINE REPAIRER MAINTENANCE) P athologist Signature HGB 7.9 (L) 12.9 - 16.9 03/24/2022 [facility] g/dL 8:08 PM MACHINE REPAIRER MAINTENANCE [facility] Specimen Anatomical Collection Method / Collection Time Recei eloina Time (Source) Location / Volume Laterality Blood BLOOD SPECIMEN / Venipuncture / 03/24/2022 8:02 2021 8:06 Unknown Unknown PM MACHINE REPAIRER MAINTENANCE PM MACHINE REPAIRER MAINTENANCE Mere Ewing APRN, CNP EC HEMATOLOGY ORDERABLES Performing Organization Address City/[facility]/ZIP Code Phon e Number [facility] [address], [place] [address] (ABNORMAL) GLUCOSE, METER (03/24/2022 5:08 PM MACHINE REPAIRER MAINTENANCE) P athologist Signature Glucose Meter 147 (H) 70 - 99 03/24/2022 [facility] mg/dL 5:15 PM MACHINE REPAIRER MAINTENANCE [facility] POINT OF CARE Specimen Anatomical Collection Method Collection Time Receive d Time (Source) Location / / Volume Laterality Blood BLOOD SPECIMEN / 03/24/2022 5:08 PM 03/24 5:15 Unknown MACHINE REPAIRER MAINTENANCE PM MACHINE REPAIRER MAINTENANCE Agustin Palacio MD EC CHEMISTRY ORDERABLES Performing Organization Address City/[facility] Phon e Number [facility] POINT OF CARE [address] [place] [phone] (ABNORMAL) HEMOGLOBIN (03/24/2022 12:08 PM MACHINE REPAIRER MAINTENANCE) P athologist Signature HGB 8.3 (L) 12.9 - 16.9 03/24/2022 [facility] g/dL 12:14 PM MACHINE REPAIRER MAINTENANCE [facility] Specimen Anatomical Collection Method / Collection Time Recei eloina Time (Source) Location / Volume Laterality Blood BLOOD SPECIMEN / Venipuncture / 03/24/2022 12:08 03/24 Unknown Unknown PM MACHINE REPAIRER MAINTENANCE 12:12 PM MACHINE REPAIRER MAINTENANCE Mere Ewing APRN, CNP EC HEMATOLOGY ORDERABLES Performing Organization Address [facility]/ZIP [facility] Phon e Number [facility] [address] [place] [address] (ABNORMAL) GLUCOSE, METER (03/24/2022 11:47 AM MACHINE REPAIRER MAINTENANCE) P athologist Signature Glucose Meter 142 (H) 70 - 99 03/24/2022 [facility] mg/dL 11:54 AM MACHINE REPAIRER MAINTENANCE [facility] POINT OF CARE Specimen Anatomical Collection Method Collection Time Receive d Time (Source) Location / / Volume Laterality Blood BLOOD SPECIMEN / 03/24/2022 11:47 022 Unknown AM MACHINE REPAIRER MAINTENANCE 11:54 AM MACHINE REPAIRER MAINTENANCE Glynn Jones MD EC CHEMISTRY ORDERABLES Performing Organization Address [facility] Phon e Number [facility] POINT OF CARE [address] [place] [phone] (ABNORMAL) HEMOGLOBIN (03/24/2022 5:48 AM MACHINE REPAIRER MAINTENANCE) athologist Signature HGB 7.5 (L) 12.9 - 16.9 03/24/2022 [facility] g/dL 6:10 AM [facility] Specimen Anatomical Collection Method / Collection Time Recei eloina Time (Source) Location / Volume Laterality Blood BLOOD SPECIMEN / Venipuncture / 03/24/2022 5:48 2021 6:06 Unknown Unknown AM MACHINE REPAIRER MAINTENANCE AM MACHINE REPAIRER MAINTENANCE Mere Ewing APRN, CNP EC HEMATOLOGY ORDERABLES Performing Organization Address City/[facility]/ZIP [facility] Phon e Number [facility] [address] [place] [phone] PLATELET COUNT (03/24/2022 5:48 AM MACHINE REPAIRER MAINTENANCE) athologist Signature PLT 150 130 - 375 03/24/2022 [facility] 10*9/L 6:16 AM [facility] Specimen Anatomical Collection Method / Collection Time Recei eloina Time (Source) Location / Volume Laterality Blood BLOOD SPECIMEN / Venipuncture / 03/24/2022 5:48 2021 6:06 Unknown Unknown AM MACHINE REPAIRER MAINTENANCE AM MACHINE REPAIRER MAINTENANCE Yoko Johnson MD EC HEMATOLOGY ORDERABLES Performing Organization Address [facility] Phon e Number [facility] [address] [place] [phone] (ABNORMAL) WHITE BLOOD COUNT (03/24/2022 5:48 AM MACHINE REPAIRER MAINTENANCE) P athologist Signature WBC 62.6 (HH) 3.2 - 11.0 03/24/2022 [facility] 10*9/L 6:17 AM [facility] Specimen Anatomical Collection Method / Collection Time Recei eloina Time (Source) Location / Volume Laterality Blood BLOOD SPECIMEN / Venipuncture / 03/24/2022 5:48 2021 6:06 Unknown Unknown AM MACHINE REPAIRER MAINTENANCE AM MACHINE REPAIRER MAINTENANCE Yoko Johnson MD EC HEMATOLOGY ORDERABLES Performing Organization Address [facility] Phon e Number [facility] [address] [place] [phone] PHOSPHORUS (03/24/2022 3:01 AM MACHINE REPAIRER MAINTENANCE) P athologist Signature Phosphorus 3.2 2.5 - 4.6 03/24/2022 [facility] mg/dL 3:30 AM [facility]INE REPAIRER [facility]TENA[facility] Specimen Anatomical Collection Method / Collection Time Recei eloina Time (Source) Location / Volume Laterality Blood BLOOD SPECIMEN / Venipuncture / 03/24/2022 3:01 2021 3:10 Unknown Unknown AM MACHINE REPAIRER MAINTENANCE AM MACHINE REPAIRER MAINTENANCE Yoko Johnson MD EC CHEMISTRY ORDERABLES Performing Organization Address City/[facility] Phon e Number [facility] [address] [place] [phone] MAGNESIUM (03/24/2022 3:01 AM MACHINE REPAIRER MAINTENANCE) P athologist Signature Magnesium 1.8 1.8 - 2.7 03/24/2022 [facility] mg/dL 3:30 AM [facility] Specimen Anatomical Collection Method / Collection Time Recei eloina Time (Source) Location / Volume Laterality Blood BLOOD SPECIMEN / Venipuncture / 03/24/2022 3:01 2021 3:10 Unknown Unknown AM MACHINE REPAIRER MAINTENANCE AM MACHINE REPAIRER MAINTENANCE Yoko Johnson MD EC CHEMISTRY ORDERABLES Performing Organization Address City/[facility] Phon e Number [facility] [address] [facility] [place] [address] (ABNORMAL) BASIC METABOLIC PANEL (03/24/2022 3:01 AM [facility]) [facility] Method Time Signature Sodium 141 134 - 143 03/24/2022 [facility] mEq/L 3:30 AM [facility] Potassium 4.1 3.4 - 5.1 03/24/2022 [facility] mEq/L 3:30 AM [facility] Chloride 113 (H) 99 - 110 03/24/2022 [facility] mEq/L 3:30 AM [facility] Carbon Dioxide 19 19 - 29 03/24/2022 [facility] mEq/L 3:30 AM [facility] Anion Gap 9.0 3.0 - 15.0 03/24/2022 [facility] mEq/L 3:30 AM [facility] Blood Urea 28 (H) 5 - 24 03/24/2022 [facility] Nitrogen mg/dL 3:30 AM [facility] Creatinine 1.22 (H) 0.70 - 03/24/2022 [facility] 1.20 mg/dL 3:30 AM [facility] Glomerular 58 (L) >60 03/24/2022 [facility] Filtration Rate mL/min/1.7 3:30 AM [facility] 3 m*2 LABORATORY Comment: Risk of cardiovascular disease increases when GFR is abnormal; persistently reduced GFR values are a specific indica tion of CKD. This calculation uses CKD-EPI 2020 equation without adjustment for rac e; it has not been validated in women. Calcium 7.8 (L) 8.4 - 10.5 mg/dL 03/24/2022 3:30 AM [facility] Glucose 186 (H) 70 - 99 mg/dL 03/24/2022 3:30 AM [facility] Specimen Anatomical Collection Method / Collection Time Recei eloina Time (Source) Location / Volume Laterality Blood BLOOD SPECIMEN / Venipuncture / 03/24/2022 3:01 2021 3:10 Unknown Unknown AM MACHINE REPAIRER MAINTENANCE AM MACHINE REPAIRER MAINTENANCE Narrative [facility] - 3:30 AM MACHINE REPAIRER MAINTENANCE Current ADA criteria for Glucose: ?Normal: 70-99 mg/dL ?Impaired Fasting Glucose: 100-125 mg/dL ?Diabetes Mellitus: at or above 126 mg/dL The diagnosis of diabetes must be confir med on a subsequent day by measuring Fasting Plasma Glucose, 2-hr PG or random plasma glucose (if symptoms are present). Yoko Johnson MD EC CHEMISTRY ORDERABLES Performing Organization Address City/[facility]/ZIP [facility] Phon e Number [facility] [address] [place] [address] (ABNORMAL) GLUCOSE, METER (03/23/2022 11:38 PM MACHINE REPAIRER MAINTENANCE) athologist Signature Glucose Meter 146 (H) 70 - 99 03/23/2022 [facility] mg/dL 11:44 PM MACHINE REPAIRER MAINTENANCE [facility] POINT OF CARE Specimen Anatomical Collection Method Collection Time Receive d Time (Source) Location / / Volume Laterality Blood BLOOD SPECIMEN / 03/23/2022 11:38 022 Unknown PM MACHINE REPAIRER MAINTENANCE 11:44 PM MACHINE REPAIRER MAINTENANCE Glynn Jones MD EC CHEMISTRY ORDERABLES Performing Organization Address [facility] Phon e Number [facility] POINT OF CARE [address] [place] [phone] (ABNORMAL) HEMOGLOBIN (03/23/2022 11:38 PM MACHINE REPAIRER MAINTENANCE) athologist Signature HGB 7.7 (L) 12.9 - 16.9 03/24/2022 [facility] g/dL 12:19 AM [facility] Specimen Anatomical Collection Method / Collection Time Recei eloina Time (Source) Location / Volume Laterality Blood BLOOD SPECIMEN / Venipuncture / 03/23/2022 11:38 03/24 Unknown Unknown PM MACHINE REPAIRER MAINTENANCE 12:16 AM MACHINE REPAIRER MAINTENANCE Mere Ewing APRN LIMOUSINE DRIVER EC HEMATOLOGY ORDERABLES Performing Organization Address City/[facility]/ZIP [facility] Phon e Number [facility] [address] [place] [address] (ABNORMAL) GLUCOSE, METER (03/23/2022 5:45 PM MACHINE REPAIRER MAINTENANCE) athologist Signature Glucose Meter 124 (H) 70 - 99 03/23/2022 [facility] mg/dL 5:52 PM MACHINE REPAIRER MAINTENANCE [facility] POINT OF CARE Specimen Anatomical Collection Method Collection Time Receive d Time (Source) Location / / Volume Laterality Blood BLOOD SPECIMEN / 03/23/2022 5:45 PM 03/23 5:52 Unknown MACHINE REPAIRER MAINTENANCE PM MACHINE REPAIRER MAINTENANCE Glynn Jones MD EC CHEMISTRY ORDERABLES Performing Organization Address City/[facility]/ZIP [facility] Phon e Number [facility] POINT OF CARE [address] [place], [place] [address] (ABNORMAL) HEMOGLOBIN (03/23/2022 5:45 PM MACHINE REPAIRER MAINTENANCE) athologist Signature HGB 8.0 (L) 12.9 - 16.9 03/23/2022 [facility] g/dL 5:51 PM [facility]INE [facility]PA[facility] Specimen Anatomical Collection Method / Collection Time Recei eloina Time (Source) Location / Volume Laterality Blood BLOOD SPECIMEN / Venipuncture / 03/23/2022 5:45 2021 5:49 Unknown Unknown PM MACHINE REPAIRER MAINTENANCE PM MACHINE REPAIRER MAINTENANCE Mere Ewing APRN LIMOUSINE DRIVER EC HEMATOLOGY ORDERABLES Performing Organization Address City/[facility] Phon e Number [facility] [address] [place] [address] COLONOSCOPY PROCEDURE (03/23/2022 5:44 PM MACHINE REPAIRER MAINTENANCE) Component Value Ref Test Analysis Performed At [facility] Range Method Time Signature Colonoscopy [facility] Procedure Gastroenterology LABORATORY Patient Name: Kristofer Terryteiner ? Date of : 1935 ?Patient Status: [...] for any further evidence ? of re-bleeding. Straight Cutter Machine(s): ? I personally performed the entire procedure. Kamlesh Prieto MD KAMLESH PRIETO DO 03/23/2022 6:50:16 PM This report has been signed electronically. ? [address], [place] [address] Procedure Repo rt Specimen (Source) Anatomical Collection Method Collection Time Re ceived Time Location / / Volume Laterality 03/23/2022 5:44 PM MACHINE REPAIRER MAINTENANCE Kamlesh Prieto DO EC PROCEDURES Performing Organization Address City/[facility] Phon e Number [facility] ADMIT MRSA, MOLECULAR DETECTION (03/23/2022 1:48 PM MACHINE REPAIRER MAINTENANCE) [facility] Method Time Signature MRSA Not Detected Not Detected 03/23/2022 [facility] 3:57 PM MACHINE REPAIRER [facility]TENA[facility]CE [facility] Specimen Anatomical Collection Method Collection Time Receive d Time (Source) Location / / Volume Laterality Swab BOTH ANTERIOR Non-blood 03/23/2022 1:48 PM 03/23/20 2:39 [facility] / Unknown collection / MACHINE REPAIRER MAINTENANCE PM MACHINE REPAIRER MAINTENANCE Unknown Narrative [facility] - 2 3:57 PM MACHINE REPAIRER MAINTENANCE Test results must be interpreted within the context of all relevant clinical and laboratory findings. ??Test performance has not been evaluated in patients less than two (2) yeas of age. Method Information This test uses the CepHeroes2[employer] Xpert MRSA Nx G assay to detect methicillin-resistant Staphylococcus aureus (MRSA) DNA by real-time polymerase chain reaction (PCR) on the SWIIM System GeneXpert Instrument System. ??The Xpert MRSA NxG test detects sequen ama for methicillin/oxacillin resistance (mecA and mecC genes), and SCCmec, which is inserted into the Staphylococcus aureus chromosome at the attB site. Glynn Jones MD EC MICROBIOLOGY - GENERAL OR DERABLES Performing Organization Address City/[facility] Phon e Number [facility] [address], [place] [address] TRANSFUSE RED BLOOD CELLS (03/23/2022 12:28 PM MACHINE REPAIRER MAINTENANCE) Mere Burgess Kaylin MUÑOZ CNP IP [facility] TREATMENT ORDERABL ES - BLOOD ADMIN TRANSFUSE RED BLOOD CELLS (03/23/2022 12:28 PM MACHINE REPAIRER MAINTENANCE) Mere Aditya Kaylin MUÑOZ CNP IP [facility] TREATMENT ORDERABL ES - BLOOD ADMIN ECHO ADULT COMPLETE W CONTRAST (03/23/2022 12:26 PM MACHINE REPAIRER MAINTENANCE) Component Value Ref Test Analysis Performed At [facility] gist Range Method Time Signature LVEF Range Qualitative XCELERA Percent ejection fraction is 55-60% (normal). RESULT Natural [facility] [employer]CELERA [address] [place] [address] ? Transthoracic Echocardiogram Report Name: KRISTOFER GARCIA ? Study Date: 03/23/2022 ? Performing Location: [address] [place] [address] : 1935 ? Gender: Male Height: 68 [...] is no t available. Mere Ewing APRN, LIMOUSINE DRIVER CV ECHO PROCEDURES Performing Organization Address City/State/ZIP Code Phon e Number [facility] RAPID SARS-COV-2 RNA (COVID-19), MOLECULAR DETECTION (03/23/2022 12:11 PM MACHINE REPAIRER MAINTENANCE) [facility] Method Time Signature SARS-CoV-2 Negative Negative/Not 03/23/2022 [facility] RNA Detected 12:59 PM MACHINE REPAIRER MAINTENANCE [facility] (COVID-19) LABORATORY Comment: SARS-CoV-2 (COVID-19) target [...] 03/23/2022 12:11 03/23/20 22 Collection / PM MACHINE REPAIRER MAINTENANCE 12:25 PM MACHINE REPAIRER MAINTENANCE Unknown Narrative [facility] - 12:59 PM MACHINE REPAIRER MAINTENANCE Test detects target RNA by real-time polymerase chain reaction (PCR) on the SWIIM System GeneXpert System. Results should be used in [...] for this test can be found at: https://www.fda.gov/medical-devices/gqgibpqnf-mwqkphopfo-jyizley-devices/emergen is-nrr-xumdfmpxgprgso Kamlesh Prieto DO EC MICROBIOLOGY - GENERAL OR DERABLES Performing Organization Address City/[facility]/ZIP [facility] Phon e Number [facility] [address] [place] [phone] (ABNORMAL) HEMOGLOBIN (03/23/2022 12:11 PM MACHINE REPAIRER MAINTENANCE) athologist Signature HGB 9.0 (L) 12.9 - 16.9 03/23/2022 [facility] g/dL 12:35 PM MACHINE REPAIRER [facility]TENA[facility]CE [facility] Specimen Anatomical Collection Method / Collection Time Recei eloina Time (Source) Location / Volume Laterality Blood BLOOD SPECIMEN / Venipuncture / 03/23/2022 12:11 03/23 Unknown Unknown PM MACHINE REPAIRER MAINTENANCE 12:32 PM MACHINE REPAIRER MAINTENANCE Mere Ewing COLORING MACHINE OPERATOR, LIMOUSINE DRIVER EC HEMATOLOGY ORDERABLES Performing Organization Address City/[facility]/ZIP [facility] Phon e Number [facility] [address] [place] [address] (ABNORMAL) PROTIME (03/23/2022 12:11 PM MACHINE REPAIRER MAINTENANCE) P athologist Signature INR 1.3 (H) 0.9 - 1.1 03/23/2022 [facility] 12:53 PM MACHINE REPAIRER MAINTENANCE [facility] Protime 15.7 (H) 12.0 - 14.1 03/23/2022 [facility] sec 12:53 PM MACHINE REPAIRER MAINTENANCE [facility] Specimen Anatomical Collection Method / Collection Time Recei eloina Time (Source) Location / Volume Laterality Blood BLOOD SPECIMEN / Venipuncture / 03/23/2022 12:11 03/23 Unknown Unknown PM MACHINE REPAIRER MAINTENANCE 12:32 PM MACHINE REPAIRER MAINTENANCE Narrative [facility] - 12:53 PM MACHINE REPAIRER MAINTENANCE Suggested therapeutic INR ranges for oral anticoagulant therapy: Category ? INR Value Prophylaxis ?2.0-3.0 Treat Thrombosis or Embolism ? 2.0-3 .0 Prosthetic Heart Valve ? 2. 5-3.5 Mere Ewing APRN, CNP EC HEMATOLOGY ORDERABLES Performing Organization Address City/[facility]/ZIP [facility] Phon e Number [facility] [address], [place] [address] (ABNORMAL) GLUCOSE, METER (03/23/2022 12:10 PM MACHINE REPAIRER MAINTENANCE) athologist Signature Glucose Meter 170 (H) 70 - 99 03/23/2022 [facility] mg/dL 12:17 PM MACHINE REPAIRER MAINTENANCE [facility] POINT OF CARE Specimen Anatomical Collection Method Collection Time Receive d Time (Source) Location / / Volume Laterality Blood BLOOD SPECIMEN / 03/23/2022 12:10 022 Unknown PM MACHINE REPAIRER MAINTENANCE 12:17 PM MACHINE REPAIRER MAINTENANCE Glynn Jones MD EC CHEMISTRY ORDERABLES Performing Organization Address City/[facility]/ZIP [facility] Phon e Number [facility] POINT OF CARE [address] [place], [place] [address] (ABNORMAL) HEMOGLOBIN (03/23/2022 7:53 AM MACHINE REPAIRER MAINTENANCE) athologist Signature HGB 8.0 (L) 12.9 - 16.9 03/23/2022 [facility] g/dL 8:33 AM [facility] Specimen Anatomical Collection Method / Collection Time Recei eloina Time (Source) Location / Volume Laterality Blood BLOOD SPECIMEN / Venipuncture / 03/23/2022 7:53 2021 8:29 Unknown Unknown AM MACHINE REPAIRER MAINTENANCE AM MACHINE REPAIRER MAINTENANCE Alen Marrero MD EC HEMATOLOGY ORDERABLES Performing Organization Address City/State/ZIP Code Phon e Number [facility] [address] [facility] [place] [address] (ABNORMAL) URINALYSIS, REFLEX TO MICROSCOPIC (03/23/2022 6:07 AM MACHINE REPAIRER MAINTENANCE) [facility] gist Method Time Signature Urine Color Yellow Straw, 03/[facility]2022 [facility] Yellow, 6:17 AM [facility] LABORATORY Urine Clear Clear 03/23/2022 [facility] Appearance 6:17 AM [facility] Urine Specific 1.015 1.003 - 03/23/2022 [facility] [place] 1.035 6:17 AM [facility] Urine pH 5.5 5.0 - 8.0 03/23/2022 [facility] 6:17 AM [facility] Urine Glucose 500 (A) Negative 03/23/2022 [facility] 6:17 AM [facility] Urine Ketones 80 (A) Negative 03/23/2022 [facility] 6:17 AM [facility] Urine Protein Negative Negative, 03/23/2022 [facility] Trace mg/dL 6:17 AM [facility] Urine Nitrites Negative Negative 03/23/2022 [facility] 6:17 AM [facility] LABORATORY Urine Negative Negative 03/23/2022 [facility] Leukocyte 6:17 AM [facility] Esterase LABORATORY Specimen Anatomical Collection Method Collection Time Receive d Time (Source) Location / / Volume Laterality Urine URINE SPECIMEN Non-blood 03/23/2022 6:07 AM 022 6:11 OBTAINED VIA collection / MACHINE REPAIRER MAINTENANCE AM MACHINE REPAIRER MAINTENANCE INDWELLING URINARY Unknown CATHETER / Unknown Narrative [facility] LABORATORY - 6:17 AM MACHINE REPAIRER MAINTENANCE A routine urine not reflexing to a micro scopic exam automatically means the dipstick blood test is negative. Alen Marrero MD EC URINE ORDERABLES Performing Organization Address City/[facility]/ZIP Code Phon e Number [facility]OR[facility] [address] [place] [address] (ABNORMAL) GLUCOSE, METER (03/23/2022 5:44 AM MACHINE REPAIRER MAINTENANCE) athologist Signature Glucose Meter 165 (H) 70 - 99 03/23/2022 [facility] mg/dL 5:50 AM [facility] POINT OF CARE Specimen Anatomical Collection Method Collection Time Receive d Time (Source) Location / / Volume Laterality Blood BLOOD SPECIMEN / 03/23/2022 5:44 AM 03/23 5:50 Unknown MACHINE REPAIRER MAINTENANCE AM MACHINE REPAIRER MAINTENANCE Yoko Johnson MD EC CHEMISTRY ORDERABLES Performing Organization Address City/State/ZIP Code Phon e Number [facility] POINT OF CARE [address] [place], [place] [address] PROCALCITONIN, BLOOD (03/23/2022 4:57 AM MACHINE REPAIRER MAINTENANCE) athologist Signature Procalcitonin 0.06 <0.50 03/23/2022 [facility] ng/mL 6:03 AM [facility] LABOR[facility] Specimen Anatomical Collection Method / Collection Time Recei eloina Time (Source) Location / Volume Laterality Blood BLOOD SPECIMEN / Venipuncture / 03/23/2022 4:57 2021 5:09 Unknown Unknown AM MACHINE REPAIRER MAINTENANCE AM MACHINE REPAIRER MAINTENANCE Narrative [facility] LABOR[facility] - 6:03 AM MACHINE REPAIRER MAINTENANCE Procalcitonin Interpretation Guidelines: Diagnosis of systemic bacterial [...] LAB SEND OUT ORDERABLES Performing Organization Address City/[facility] Phon e Number [facility] [address], [place] [address] (ABNORMAL) HEMOGLOBIN (03/23/2022 4:57 AM MACHINE REPAIRER MAINTENANCE) P athologist Signature HGB 8.1 (L) 12.9 - 16.9 03/23/2022 [facility] g/dL 5:10 AM MACHINE REPAIRER MAINTENANCE [facility] LAB[facility]ORY Specimen Anatomical Collection Method / Collection Time Recei eloina Time (Source) Location / Volume Laterality Blood BLOOD SPECIMEN / Venipuncture / 03/23/2022 4:57 2021 5:08 Unknown Unknown AM MACHINE REPAIRER MAINTENANCE AM MACHINE REPAIRER MAINTENANCE Alen Marrero MD EC HEMATOLOGY ORDERABLES Performing Organization Address City/[facility] Phon e Number [facility]OR[facility] [address] [place] [phone] PLATELET COUNT (03/23/2022 4:57 AM MACHINE REPAIRER MAINTENANCE) P athologist Signature PLT 188 130 - 375 03/23/2022 [facility] 10*9/L 5:15 AM MACHINE REPAIRER MAINTENANCE [facility]PITAL LABORATORY Specimen Anatomical Collection Method / Collection Time Recei eloina Time (Source) Location / Volume Laterality Blood BLOOD SPECIMEN / Venipuncture / 03/23/2022 4:57 2021 5:08 Unknown Unknown AM MACHINE REPAIRER MAINTENANCE AM MACHINE REPAIRER MAINTENANCE Yoko Johnson MD EC HEMATOLOGY ORDERABLES Performing Organization Address City/[facility] Phon e Number [facility] [address] [place] [phone] (ABNORMAL) WHITE BLOOD COUNT (03/23/2022 4:57 AM MACHINE REPAIRER MAINTENANCE) P athologist Signature WBC 78.1 (HH) 3.2 - 11.0 03/23/2022 [facility] 10*9/L 5:16 AM MACHINE REPAIRER MAINTENANCE [facility] LAB[facility]ORY Specimen Anatomical Collection Method / Collection Time Recei eloina Time (Source) Location / Volume Laterality Blood BLOOD SPECIMEN / Venipuncture / 03/23/2022 4:57 2021 5:08 Unknown Unknown AM MACHINE REPAIRER MAINTENANCE AM MACHINE REPAIRER MAINTENANCE Yoko Johnson MD EC HEMATOLOGY ORDERABLES Performing Organization Address [facility] Phon e Number [facility] [address] [place] [phone] PHOSPHORUS (03/23/2022 4:57 AM MACHINE REPAIRER MAINTENANCE) P athologist Signature Phosphorus 4.4 2.5 - 4.6 03/23/2022 [facility] mg/dL 5:29 AM MACHINE REPAIRER MAINTENANCE [facility] LAB[facility]ORY Specimen Anatomical Collection Method / Collection Time Recei eloina Time (Source) Location / Volume Laterality Blood BLOOD SPECIMEN / Venipuncture / 03/23/2022 4:57 2021 5:09 Unknown Unknown AM MACHINE REPAIRER MAINTENANCE AM MACHINE REPAIRER MAINTENANCE Yoko Johnson MD EC CHEMISTRY ORDERABLES Performing Organization Address [facility] Phon e Number [facility] [address] [place] [phone] MAGNESIUM (03/23/2022 4:57 AM MACHINE REPAIRER MAINTENANCE) P athologist Signature Magnesium 1.8 1.8 - 2.7 03/23/2022 [facility] mg/dL 5:29 AM [facility] Specimen Anatomical Collection Method / Collection Time Recei eloina Time (Source) Location / Volume Laterality Blood BLOOD SPECIMEN / Venipuncture / 03/23/2022 4:57 2021 5:09 Unknown Unknown AM MACHINE REPAIRER MAINTENANCE AM MACHINE REPAIRER MAINTENANCE Yoko Johnson MD EC CHEMISTRY ORDERABLES Performing Organization Address [facility] Phon e Number [facility] [address] [place] [phone] (ABNORMAL) BASIC METABOLIC PANEL (03/23/2022 4:57 AM MACHINE REPAIRER MAINTENANCE) Patholo gist Method Time Signature Sodium 143 134 - 143 03/23/2022 [facility] mEq/L 5:29 AM [facility] Potassium 4.6 3.4 - 5.1 03/23/2022 [facility] mEq/L 5:29 AM [facility] Chloride 115 (H) 99 - 110 03/23/2022 [facility] mEq/L 5:29 AM [facility] Carbon Dioxide 15 (L) 19 - 29 03/23/2022 [facility] mEq/L 5:29 AM [facility] Anion Gap 13.0 3.0 - 15.0 03/23/2022 [facility] mEq/L 5:29 AM [facility] Blood Urea 32 (H) 5 - 24 03/23/2022 [facility] Nitrogen mg/dL 5:29 AM [facility] Creatinine 1.27 (H) 0.70 - 03/23/2022 [facility] 1.20 mg/dL 5:29 AM [facility] Glomerular 55 (L) >60 03/23/2022 [facility] Filtration Rate mL/min/1.7 5:29 AM [facility] 3 m*2 LABORATORY Comment: Risk of cardiovascular disease increases when GFR is abnormal; persistently reduced GFR values are a specific indica tion of CKD. This calculation uses CKD-EPI 2020 equation without adjustment for rac e; it has not been validated in women. Calcium 8.2 (L) 8.4 - 10.5 mg/dL 03/23/2022 5:29 AM [facility] LABORATORY Glucose 184 (H) 70 - 99 mg/dL 03/23/2022 5:29 AM [facility] LABOR[facility] Specimen Anatomical Collection Method / Collection Time Recei eloina Time (Source) Location / Volume Laterality Blood BLOOD SPECIMEN / Venipuncture / 03/23/2022 4:57 2021 5:09 Unknown Unknown AM MACHINE REPAIRER MAINTENANCE AM [facility] Narrative [facility] - 5:29 AM [facility] Current ADA criteria for Glucose: ?Normal: 70-99 mg/dL ?Impaired Fasting Glucose: 100-125 mg/dL ?Diabetes Mellitus: at or above 126 mg/dL The diagnosis of diabetes must be confir med on a subsequent day by measuring Fasting Plasma Glucose, 2-hr PG or random plasma glucose (if symptoms are present). Yoko Johnson MD EC CHEMISTRY ORDERABLES Performing Organization Address City/State/ZIP Code Phon e Number [facility] [address] [place] [address] (ABNORMAL) GLUCOSE, METER (03/22/2022 11:39 PM CDT) athologist Signature Glucose Meter 150 (H) 70 - 99 03/22/2022 [facility] mg/dL 11:46 PM CDT [facility] POINT OF CARE Specimen Anatomical Collection Method Collection Time Receive d Time (Source) Location / / Volume Laterality Blood BLOOD SPECIMEN / 03/22/2022 11:39 022 Unknown PM CDT 11:46 PM CDT Yoko Johnson MD EC CHEMISTRY ORDERABLES Performing Organization Address City/[facility]/ZIP Code Phon e Number [facility] POINT OF CARE [address] [place], [place] [address] LACTIC ACID, VENOUS (03/22/2022 11:29 PM CDT) athologist Signature Lactic Acid, 0.8 0.5 - 2.0 03/22/2022 [facility] Venous mmol/L 11:49 PM CDT HOSPITAL LABORATORY Specimen Anatomical Collection Method / Collection Time Recei eloina Time (Source) Location / Volume Laterality Blood BLOOD SPECIMEN / Venipuncture / 03/22/2022 11:29 03/22 Unknown Unknown PM CDT 11:33 PM CDT Alen Marrero MD EC CHEMISTRY ORDERABLES Performing Organization Address City/[facility]/ZIP Code Phon e Number [facility] [address] [facility] [place] [address] (ABNORMAL) HEMOGLOBIN (03/22/2022 11:29 PM CDT) athologist Signature HGB 8.3 (L) 12.9 - 16.9 03/22/2022 [facility] g/dL 11:36 PM CDT HOSPITAL LABORATORY Specimen Anatomical Collection Method / Collection Time Recei eloina Time (Source) Location / Volume Laterality Blood BLOOD SPECIMEN / Venipuncture / 03/22/2022 11:29 03/22 Unknown Unknown PM CDT 11:33 PM CDT Yoko Johnson MD EC HEMATOLOGY ORDERABLES Performing Organization Address City/[facility]/ZIP Code Phon e Number [facility] [address] [facility] [place] [address] ABORH 2ND DRAW (03/22/2022 5:09 PM CDT) athologist Signature ABO Group O 03/22/2022 5:56 [facility] PM CDT HOSPITAL BLOOD BANK RH Type POS 03/22/2022 5:56 [facility] PM CDT [facility] BLOOD BANK Specimen Anatomical Collection Method / Collection Time Recei eloina Time (Source) Location / Volume Laterality Blood BLOOD SPECIMEN / Venipuncture / 03/22/2022 5:09 2021 5:29 Unknown Unknown PM CDT PM CDT Yoko Johnson MD EC BLOOD BANK ORDERABLES Performing Organization Address City/[facility]/ZIP [facility] Phon e Number [facility] BLOOD BANK [address] [place] [address] (ABNORMAL) HEMOGLOBIN (03/22/2022 5:09 PM CDT) P athologist Signature HGB 9.0 (L) 12.9 - 16.9 03/22/2022 [facility] g/dL 5:31 PM CDT HOSPITAL LABORATORY Specimen Anatomical Collection Method / Collection Time Recei eloina Time (Source) Location / Volume Laterality Blood BLOOD SPECIMEN / Venipuncture / 03/22/2022 5:09 2021 5:28 Unknown Unknown PM CDT PM CDT Yoko Johnson MD EC HEMATOLOGY ORDERABLES Performing Organization Address City/[facility]/ZIP [facility] Phon e Number [facility] [address] [place] [address] IR ANGIOGRAM SELECTIVE EACH ADDL VESSEL (03/22/2022 4:26 PM CDT) Anatomical Region Laterality Modality Abdomen, Pelvis, Vascular, Leg, Arm X-Ra y Angiography Specimen (Source) Anatomical Collection Method Collection Time Re ceived Time Location / / Volume Laterality 03/22/2022 4:26 PM CDT Narrative 03/22/2022 4:45 PM CDT This document is currently in Final Status Exam Procedure: Mesenteric angiogram Primary sales assoc: Yair Jones MD Preoperative diagnosis: GI bleed [...] vascular sheath over a Bentson wire. A 5-Lebanese Motarjamie catheter was used to select the inferior mesenteric ar lucita. Angiogram obtained, showing widely patent artery with supply to the region of interest (distal descending colon/proximal sigmoid colon). No active contrast extravasation identified. A 2.8 Lebanese m icrocatheter was advanced over a wire [...] Stat us Exam Procedure: Mesenteric angiogram Primary sales assoc: Yair Jones MD Preoperative diagnosis: GI bleed [...] vascular sheath over a Bentson wire. A 5-Lebanese Motarjamie catheter was used to select the inferior mesenteric artery. Angiogram obtained, showing widely patent artery with supply to the region of interest (distal descending colon/proximal sigmoid colon). No active contrast extravasation identified. A 2.8 Lebanese microcatheter was advanced over a wire further [...] bleedi ng via the SMA/marginal artery of [place], though this may prove difficult and places [...] Final Status Exam Procedure: Mesenteric angiogram Primary sales assoc: Yair Jones MD Preoperative diagnosis: GI bleed [...] a 5 Fr vascular sheath over a Invoca wire. A 5-Lebanese Motarjamie catheter was used to select the inferior mesenteric ar lucita. Angiogram obtained, showing widely patent artery with supply to the region of interest (distal descending colon/proximal sigmoid colon). No active contrast extravasation identified. A 2.8 Lebanese m icrocatheter was advanced over a wire [...] Stat us Exam Procedure: Mesenteric angiogram Primary sales assoc: Yair Jones MD Preoperative diagnosis: GI bleed [...] was then placed, followed by the micro shedontrell h. This was exchanged for a 5 Fr vascular sheath over a Bentson wire. A 5-Lebanese Motarjamie catheter was used to select the inferior mesenteric artery. Angiogram obtained, showing widely patent artery with supply to the region of interest (distal descending colon/proximal sigmoid colon). No active contrast extravasation identified. A 2.8 Lebanese microcatheter was advanced over a wire further [...] Final Status Exam Procedure: Mesenteric angiogram Primary sales assoc: Yair Jones MD Preoperative diagnosis: GI bleed [...] vascular sheath over a Bentson wire. A 5-Lebanese Motarjamie catheter was used to select the inferior mesenteric ar lucita. Angiogram obtained, showing widely patent artery with supply to the region of interest (distal descending colon/proximal sigmoid colon). No active contrast extravasation identified. A 2.8 Lebanese m icrocatheter was advanced over a wire [...] of bleeding via the SMA/marginal artery of [place], though this may prove difficult and places the SMA/marginal artery at risk of dissection, which could compromise colonic blood supply. Electronically Signed: Dr. Yair Jones 4:45 PM Procedure Note Yair Jones MD - 03/22/2022 This document is currently in Final Stat us Exam Procedure: Mesenteric angiogram Primary sales assoc: Yair Jones MD Preoperative diagnosis: GI bleed [...] vascular sheath over a Bentson wire. A 5-Lebanese Motarjamie catheter was used to select the inferior mesenteric artery. Angiogram obtained, showing widely patent artery with supply to the region of interest (distal descending colon/proximal sigmoid colon). No active contrast extravasation identified. A 2.8 Lebanese microcatheter was advanced over a wire further [...] bleedi ng via the SMA/marginal artery of [place], though this may prove difficult and places the SMA/marginal artery at risk of dissection, which could compromise colonic blood supply. Electronically Signed: Dr. Yair Jones 4:45 PM Yoko Johnson MD EC US ORDERABLES RED BLOOD CELLS (03/22/2022 2:28 PM CDT) [facility] gist Method Time Signature Leukoreduced RBC [id number] 03/23/2022 p.Transfused 8:05 AM MACHINE REPAIRER MAINTENANCE 03/23/22 08:05 [facility] Unit ABO Type O 03/23/2022 8:05 AM MACHINE REPAIRER MAINTENANCE Unit Rh Type POS 03/23/2022 8:05 AM MACHINE REPAIRER MAINTENANCE Unit Number [id number] 03/23/2022 8:05 AM MACHINE REPAIRER MAINTENANCE Unit Status transfused 03/23/2022 8:05 AM MACHINE REPAIRER MAINTENANCE Unit Barcoded [id number] 03/23/2022 Product Code 8:05 AM MACHINE REPAIRER MAINTENANCE Specimen Anatomical Collection Method Collection Time Receive d Time (Source) Location / / Volume Laterality Blood BLOOD SPECIMEN / 03/22/2022 2:28 PM 03/22 2:34 Unknown CDT PM CDT Narrative [facility] - 8:05 AM MACHINE REPAIRER MAINTENANCE Type and Screen required for all RBC pro ducts.Transfusion Indications:->Clinically significant acute bloodloss1 UNITS Mere Ewing APRN, CNP EC BLOOD BANK ORDERABLES Performing Organization Address City/State/ZIP Code Phon e Number [facility] [address] [facility] [place] [address] (ABNORMAL) PROTIME (03/22/2022 2:28 PM CDT) P athologist Signature INR 1.3 (H) 0.9 - 1.1 03/22/2022 [facility] 2:49 PM CDT HOSPITAL LABORATORY Protime 15.6 (H) 12.0 - 14.1 03/22/2022 [facility] sec 2:49 PM CDT HOSPITAL LABORATORY Specimen Anatomical Collection Method / Collection Time Recei eloina Time (Source) Location / Volume Laterality Blood BLOOD SPECIMEN / Venipuncture / 03/22/2022 2:28 2021 2:34 Unknown Unknown PM CDT PM CDT Narrative [facility] - 2 2:49 PM CDT Suggested therapeutic INR ranges for oral anticoagulant therapy: Category ? INR Value Prophylaxis ?2.0-3.0 Treat Thrombosis or Embolism ? 2.0-3 .0 Prosthetic Heart Valve ? 2. 5-3.5 Yoko Johnson MD EC HEMATOLOGY ORDERABLES Performing Organization Address [facility] Phon e Number [facility] [address], [place] [address] TROPONIN I (03/22/2022 2:28 PM CDT) athologist Signature Troponin I 0.020 0.000 - 03/22/2022 [facility] 0.028 ng/mL 2:59 PM CDT HOSPITAL LABORATORY Specimen Anatomical Collection Method / Collection Time Recei eloina Time (Source) Location / Volume Laterality Blood BLOOD SPECIMEN / Venipuncture / 03/22/2022 2:28 2021 2:34 Unknown Unknown PM CDT PM CDT Narrative [facility] - 2:59 PM CDT Because no pediatric reference range elvira a is published, the adult reference range will be utilized as this represents 99% of healthy adults. Yoko Johnson MD EC CHEMISTRY ORDERABLES Performing Organization Address [facility] Phon e Number [facility] [address] [place] [phone] LACTIC ACID, VENOUS (03/22/2022 2:28 PM CDT) P athologist Signature Lactic Acid, 1.0 0.5 - 2.0 03/22/2022 [facility] Venous mmol/L 2:49 PM CDT HOSPITAL LABORATORY Specimen Anatomical Collection Method / Collection Time Recei eloina Time (Source) Location / Volume Laterality Blood BLOOD SPECIMEN / Venipuncture / 03/22/2022 2:28 2021 2:34 Unknown Unknown PM CDT PM CDT Yoko Johnson MD EC CHEMISTRY ORDERABLES Performing Organization Address [facility] Phon e Number [facility] [address], [place] [address] PHOSPHORUS (03/22/2022 2:28 PM CDT) P athologist Signature Phosphorus 3.2 2.5 - 4.6 03/22/2022 [facility] mg/dL 2:54 PM CDT HOSPITAL LABORATORY Specimen Anatomical Collection Method / Collection Time Recei eloina Time (Source) Location / Volume Laterality Blood BLOOD SPECIMEN / Venipuncture / 03/22/2022 2:28 2021 2:34 Unknown Unknown PM CDT PM CDT Yoko Johnson MD EC CHEMISTRY ORDERABLES Performing Organization Address City/[facility] Phon e Number [facility] [address] [place] [phone] (ABNORMAL) MAGNESIUM (03/22/2022 2:28 PM CDT) athologist Signature Magnesium 1.7 (L) 1.8 - 2.7 03/22/2022 [facility] mg/dL 2:54 PM T HOSPITAL LABORATORY Specimen Anatomical Collection Method / Collection Time Recei eloina Time (Source) Location / Volume Laterality Blood BLOOD SPECIMEN / Venipuncture / 03/22/2022 2:28 2021 2:34 Unknown Unknown PM CDT PM CDT Yoko Johnson MD EC CHEMISTRY ORDERABLES Performing Organization Address City/[facility] Phon e Number [facility] [address], [place] [address] (ABNORMAL) COMPREHENSIVE METABOLIC PANEL (03/22/2022 2:28 PM CDT) Analysis Performed At Patho logist Time Signature Sodium 142 134 - 143 03/22/2022 [facility] mEq/L 2:54 PM T HOSPITAL LABORATORY Potassium 4.5 3.4 - 5.1 03/22/2022 [facility] mEq/L 2:54 PM T [facility]ITAL LABORATORY Chloride 114 (H) 99 - 110 03/22/2022 [facility] mEq/L 2:54 PM T [facility]ITAL LABORATORY Carbon Dioxide 19 19 - 29 03/22/2022 [facility] mEq/L 2:54 PM CDT HOSPITAL LABORATORY Anion Gap 9.0 3.0 - 15.0 03/22/2022 [facility] mEq/L 2:54 PM CDT HOSPITAL LABORATORY Blood Urea 26 (H) 5 - 24 03/22/2022 [facility] Nitrogen mg/dL 2:54 PM [facility] LAB[facility] Creatinine 0.98 0.70 - 03/22/2022 [facility] 1.20 mg/dL 2:54 PM [facility] Glomerular 75 >60 03/22/2022 [facility] Filtration Rate mL/min/1.7 2:54 PM [facility] 3 m*2 LABORATORY Comment: Risk of cardiovascular disease increases when GFR is abnormal; persistently reduced GFR values are a specific indica tion of CKD. This calculation uses CKD-EPI 2020 equation without adjustment for rac e; it has not been validated in women. Calcium 8.3 (L) 8.4 - 10.5 03/22/2022 2:54 PM [facility] H OSPITAL mg/dL T LABORATORY Glucose 208 (H) 70 - 99 mg/dL 03/22/2022 2:54 PM [facility] Protein, Total 5.0 (L) 6.0 - 8.0 03/22/2022 2:54 PM [facility] g/dL T LABORATORY Albumin 2.9 (L) 3.5 - 5.0 03/22/2022 2:54 PM [facility] g/dL T LABORATORY Alkaline Phosphatase 81 40 - 150 IU/L 03/22/2022 2:54 PM [facility] Aspartate 16 10 - 40 IU/L 03/22/2022 2:54 PM [facility] Aminotransferase T LABORATORY Alanine Aminotransferase 13 6 - 40 IU/L 03/22/2022 2: 54 PM [facility] Bilirubin, Total 0.5 0.2 - 1.2 03/22/2022 2:54 PM [facility] mg/dL CDT LABORATORY Specimen Anatomical Collection Method / Collection Time Recei eloina Time (Source) Location / Volume Laterality Blood BLOOD SPECIMEN / Venipuncture / 03/22/2022 2:28 2021 2:34 Unknown Unknown PM CDT PM CDT Narrative [facility] LABOR[facility] - 2:54 PM CDT Current ADA criteria for Glucose: ?Normal: 70-99 mg/dL ?Impaired Fasting Glucose: 100-125 mg/dL ?Diabetes Mellitus: at or above 126 mg/dL The diagnosis of diabetes must be confir med on a subsequent day by measuring Fasting Plasma Glucose, 2-hr PG or random plasma glucose (if symptoms are present). Yoko Johnson MD EC CHEMISTRY ORDERABLES Performing Organization Address City/[facility]/ZIP Code Phon e Number [facility] [address] [facility] [place] [address] (ABNORMAL) HEMOGRAM (03/22/2022 2:28 PM CDT) P athologist Signature WBC 56.7 (HH) 3.2 - 11.0 03/22/2022 [facility] 10*9/L 3:22 PM CDT HOSPITAL LABORATORY RBC 3.42 (L) 4.14 - 03/22/2022 [facility] 5.76 3:22 PM T HOSPITAL 10*12/L LABORATORY HGB 10.0 (L) 12.9 - 03/22/2022 [facility] 16.9 g/dL 3:22 PM T HOSPITAL LABORATORY HCT 31.3 (L) 38.4 - 03/22/2022 [facility] 49.7 % 3:22 PM T HOSPITAL LABORATORY MCV 91.5 81.4 - 03/22/2022 [facility] 99.0 fL 3:22 PM T HOSPITAL LABORATORY MCH 29.2 26.7 - 03/22/2022 [facility] 33.1 pg 3:22 PM [facility] LABORATORY MCHC 31.9 31.6 - 03/22/2022 [facility] 35.5 g/dL 3:22 PM [facility] RDW 14.6 11.3 - 03/22/2022 [facility] 14.6 % 3:22 PM [facility] PLT 193 130 - 375 03/22/2022 [facility] 10*9/L 3:22 PM [facility] Specimen Anatomical Collection Method / Collection Time Recei eloina Time (Source) Location / Volume Laterality Blood BLOOD SPECIMEN / Venipuncture / 03/22/2022 2:28 2021 2:34 Unknown Unknown PM CDT PM CDT Yoko Johnson MD EC HEMATOLOGY ORDERABLES Performing Organization Address City/[facility]/ZIP [facility] Phon e Number [facility] [address] [facility] [place] [address] TYPE AND SCREEN (03/22/2022 2:28 PM CDT) P athologist Signature ABO Group O 03/22/2022 [facility] 3:12 PM CDT [facility] BLOOD BANK RH Type POS 03/22/2022 [facility] 3:12 PM CDT [facility] BLOOD BANK Antibody Screen NEG 03/22/2022 [facility] 3:12 PM CDT [facility] BLOOD BANK Specimen Anatomical Collection Method / Collection Time Recei eloina Time (Source) Location / Volume Laterality Blood BLOOD SPECIMEN / Venipuncture / 03/22/2022 2:28 2021 2:34 Unknown Unknown PM CDT PM CDT Yoko Johnson MD EC BLOOD BANK ORDERABLES Performing Organization Address City/[facility]/ZIP [facility] Phon e Number [facility] [address] [place] [address] [phone] (ABNORMAL) GLUCOSE, METER (03/22/2022 2:25 PM CDT) athologist Signature Glucose Meter 183 (H) 70 - 99 03/22/2022 [facility] mg/dL 4:07 PM CDT [facility] POINT OF CARE Specimen Anatomical Collection Method Collection Time Receive d Time (Source) Location / / Volume Laterality Blood BLOOD SPECIMEN / 03/22/2022 2:25 PM 03/22 4:07 Unknown CDT PM CDT Yoko Johnson MD EC CHEMISTRY ORDERABLES Performing Organization Address City/[facility]/ZIP [facility] Phon e Number [facility] POINT OF CARE [address] [place] [address] [phone] documented in this encounter Visit Diagnoses Not on filedocumented in this encounter Administered Medications Inactive Administered Medications Medication Order MAR Action Action Date Dose Rate Site acetaminophen (Tylenol) tablet Given 03/24/2022 12:09 AM MACHINE REPAIRER MAINTENANCE 500 mg 500 mg 500 mg, Oral, EVERY 4 HOURS NEEDED, Starting on 03/22/22 at 2055, Until 03/25/22 at 2143, Mild Pain (1-3) Given 03/23/2022 11:28 AM MACHINE REPAIRER MAINTENANCE 500 mg Given 03/22/2022 9:19 PM CDT 500 mg aspirin chewable tablet 81 mg Given 03/25/2022 8:02 AM MACHINE REPAIRER MAINTENANCE 81 mg 81 mg, Chew, ONCE DAILY, First dose on Thu03/25/22 at 0900, Until Discontinued atorvaSTATin (Lipitor) tablet 20 mg Given 03/24/2022 5:05 PM MACHINE REPAIRER MAINTENANCE 20 mg 20 mg, Oral, WITH SUPPER, First dose on Thu03/24/22 at 1800, Until Discontinued carvedilol (Coreg) tablet 12.5 mg Given 03/25/2022 4:35 PM MACHINE REPAIRER MAINTENANCE 12.5 mg 12.5 mg, Oral, 2 TIMES DAILY WITH MEALS, First dose (after last modification) on Thu03/25/22 at 0830, Until Discontinued Given 03/25/2022 8:02 AM MACHINE REPAIRER MAINTENANCE 12.5 mg dextrose (D50) 50 % injection 12.5-25 g 12.5-25 g, IV Push, NEEDED, Starting on Thu03/22/22 at 1459, Until Thu03/25/22 at 2143, Hypoglycemia docusate sodium (Colace) capsule 100 mg Given 03/25/2022 8:02 AM MACHINE REPAIRER MAINTENANCE 100 mg 100 mg, Oral, ONCE DAILY, First dose on Thu03/24/22 at 1300, Until Discontinued Given 03/24/2022 2:27 PM MACHINE REPAIRER MAINTENANCE 100 mg fentaNYL (Sublimaze) injection Given 03/22/2022 4:14 PM CDT 25 mcg NEEDED, Starting on Thu03/22/22 at 1518, Until Thu03/22/22 at 1649 Given 03/22/2022 3:18 PM CDT 25 mcg glucagon (diagnostic) (Glucagen) injecti on 1 mg 1 mg, Intramuscular, NEEDED, Starting on Thu03/22/22 at 1459, Until Thu03/25/22 at 2143, Hypoglycemia glucose (Glutose) 40 % gel 37.5-112.5 g 37.5-112.5 g, Oral, NEEDED, Starting on Thu03/22/22 at 1459, Until Thu03/25/22 at 2143, Hypoglycemia heparin (porcine) injection Given 03/22/2022 3:17 PM CDT 15,000 Units NEEDED, Starting on Thu03/22/22 at 1517, Until Thu03/22/22 at 1649 insulin aspart (NovoLOG) injection Given 03/25/2022 1:10 PM MACHINE REPAIRER MAINTENANCE 1 Units (CORRECTION DOSE) 0-20 Units 0-20 Units, Subcutaneous, WITH MEALS AND BEDTIME, First dose (after last modification) on Thu03/24/22 at 1200, Until Discontinued, Blood Glucose Target - Daytime (mg/dL): 160, Blood Glucose Target - Bedtime and Overnight (mg/dL): 160, Hyperglycemia Correction Factor - Daytime: 30, Hyperglycemia Correction Factor - Bedtime and Overnight: 30 Given 03/25/2022 7:59 AM MACHINE REPAIRER MAINTENANCE 2 Units iohexol (Omnipaque) 350 MG/ML Given 03/22/2022 4:20 PM CDT 70 mL NEEDED, Starting on 03/22/22 at 1620, Until Thu03/22/22 at 1649 midazolam (Versed) injection Given 03/22/2022 3:18 PM CDT 0.5 mg NEEDED, Starting on Thu03/22/22 at 1518, Until Thu03/22/22 at 1649 ondansetron (Zofran ODT) disintegrating tablet 4 mg 4 mg, Oral, EVERY 6 HOURS NEEDED, Starting on 05/22/21 at 1443, Until Thu03/25/22 at 2143, Nausea, Vomiting ondansetron (Zofran) injection 4 mg 4 mg, IV Push, EVERY 6 HOURS NEEDED, Starting on Thu03/22/22 at 1443, Until Thu03/25/22 at 2143, Nausea, Vomiting pantoprazole (Protonix) tablet 40 mg Given 03/25/2022 4:36 PM MACHINE REPAIRER MAINTENANCE 40 mg 40 mg, Oral, DAILY AT 1700, First dose on Thu03/24/22 at 1700, Until Discontinued Given 03/24/2022 5:06 PM MACHINE REPAIRER MAINTENANCE 40 mg sodium chloride 0.9% IV LINE [...] may contain times in both CDT and MACHINE REPAIRER MAINTENANCE. Scheduled Medication Order 03/23/2022 03/24/2022 03/25/2022 aspirin [...] Slime Epps, HOLLY)1310 (Given - Provider: Slime Epps RN) 0-20 Units, Subcutaneous, WITH MEALS AND BEDTIME, [...] 0553 (New Bag - Provider: Antony Sherman, HOLLY)0623 (Stopped - Provider: Antony Sherman RN) 500 mg, Intravenous, at 200 mL/hr, EVERY 8 HOURS, First dose on Thu03/23/22 at 0600, Until Discontinued, Indication? suspected infection, Antibiotic Indication for Use: Intra-Abdominal Infection midodrine (Proamatine) tablet 10 mg (CANCELED) 2104 (G iven - Provider: Antony Sherman RN) 10 mg, Oral, 2 TIMES DAILY, First dose o n Thu03/23/22 at 2100, Until Discontinued pantoprazole (Protonix) injection 40 mg (CANCELED) 112 8 (Given - Provider: Franchesca Leo RN) 0836 (Given - Provider: Jomar Wilson RN) 40 mg, IV Push, ONCE DAILY, First dose o n 03/23/22 at 1100, Until Discontinued pantoprazole (Protonix) tablet 40 mg 170 6 (Given - Provider: Jomar Wilson RN) 1636 (Given - Provider: Jomar Wilson RN) 40 mg, Oral, DAILY AT 1700, First dose o n 03/24/22 at 1700, Until Discontinued perflutren lipid microsphere (Definity) injection 1.3 mL (COMPLETED) 1228 (Given - Provider: Summer Olsen - Comment: lot [id number]) 1.3 mL, IV Push, ONCE, 1 dose, On [place] 03/23/22 at 1230 polyethylene glycol (GoLYTELY) 236 g solution 4,000 mL (COMPLETED) 0934 (Given - Provider: Franchesca Leo RN) 4,000 mL, Oral, ONCE, 1 dose, On [place] 03/23/22 at 0830 Continuous Medication Order 03/23/2022 [...] S tarting on 03/22/22 at 2055, Until 03/25/22 at 2143, Mild Pain (1-3) dextrose (D50) 50 % injection 12.5-25 g 12.5-25 g, IV Push, NEEDED, Starting on 03/22/22 at 1459, Until Thu03/25/22 at 2143, Hypoglycemia glucagon (diagnostic) (Glucagen) injection 1 mg 1 mg, Intramuscular, NEEDED, Starting on 03/22/22 at 1459, Until Thu03/25/22 at 2143, Hypoglycemia glucose (Glutose) 40 % gel 37.5-112.5 g 37.5-112.5 g, Oral, NEEDED, Starting on 03/22/22 at 1459, Until Thu03/25/22 at 2143, Hypoglycemia ondansetron (Zofran ODT) disintegrating [...] sodium (Colace) capsule 100 mg 1 03/24/20 insulin aspart (NovoLOG) injection 2 03/24/2022 03/22/2022 [...] 50 % injection 12.5-25 g 1 03/22/20 glucagon (diagnostic) (Glucagen) injection 1 03/22 1 mg glucose (Glutose) 40 % gel 37.5-112.5 g 1 03/22/20 lactated ringers BOLUS BAG 250 mL 1 03/22/2022 lactated ringers infusion 1,000 mL 1 03/22/2022 norepinephrine (Levophed) 16 mcg/mL in [...]
--- OUTSIDE RECORDS SUMMARY | 2022-03-26 22:22 | XMS_ITS | Encounter Summary ---
:1935 Author Organization [facility] Address [address] [place] [address] Care Team Providers Name Role Phone Elsewhere, Pcp Primary Care Provider Unavailable Reason for Visit Outpatient (Routine) - Closed Specialty Diagnoses / Procedures Referred By Contact Refer red To Contact Ophthalmology Jose Herman M. D. 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 Monthly or less 12/31/2021 How many drinks containing alcohol do you have on a 1 or 2 12/31/2021 typical day when you are drinking? How often do you have six or more drinks on one Never 12/31/2021 occasion? Social Isolation Answer Date Recorded In a typical week, how many times do you More than three renate es a week 12/31/2021 talk on the phone with family, friends, or neighbors? How often do you get together with friends Three times a wee k 12/31/2021 or relatives? How often do you attend rastafari or Patient refused 2021 rastafari services? Do you belong to any clubs or No 12/31/2021 organizations such as rastafari groups, unions, fraBamatea or athletic groups, or school groups? How often do you attend meetings of the Patient refused 12/31/2021 clubs or organizations you belong to? Are you now , , , 12/31/2021 , never or living with a partner? Physical Activity Answer Date Recorded On average, how many days per week do you engage in moderate to 3 days 12/31/2021 strenuous exercise (like walking fast, running, jogging, dancing, swimming, biking, or other activities that cause a light or heavy sweat)? On average, how many minutes do you engage in exercise at th is 30 min 12/31/2021 level? Stress Answer Date Recorded Do you feel stress - tense, restless, nervous, or anxious, N ot at all 12/31/2021 or unable to sleep at night because your mind is troubled all the time - these days? Financial Resource Strain Answer Date Recorded How hard is it for you to pay for the very basics like Not h kiera at all 12/31/2021 food, housing, medical care, and heating? Food Insecurity Answer Date Recorded Within the past 12 months, you worried that your food Patien t refused 12/31/2021 would run out before you got money to buy more. Within the past 12 months, the food you bought just Never tr ue 12/31/2021 didn't last and you didn't have money to get more. Transportation Needs Answer Date Recorded In the past 12 months, has lack of transportation kept you f rom No 12/31/2021 medical appointments or from getting medications? In the past 12 months, has lack of transportation kept you f rom No 12/31/2021 meetings, work, or getting things needed for daily living? Housing Stability Answer Date Recorded In the last 12 months, was there a time when you were not ab le No 12/31/2021 to pay the mortgage or rent on time? In the last 12 months, how many places have you lived? 1 12/31/2021 In the last 12 months, was there a time when you did not hav e a No 12/31/[address] or slept in a senior care (including now)? Sex Assigned at Date Recorded Male 12/31/2021 3:41 PM CDT documented as of this encounter Progress Notes Jose Herman M.D. - 12/25/2021 4:[address] López, Thank you for your help in taking care of Kristofer. He is here with his daughter, Adriane. As you recall, Kristofer is a very pleasant gentleman who had a visual disturbance in his right eye of uncertain etiology around the 18 of November. He had an episode where his vision got blurry in the right eye but did not go completely black. He saw some fluffy like cloud like images. It then went away. He did not get aheadache afterwards. As you recall, he had a history of having an episode of visual disturbance thatwas a little similar back in December of 2020. 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 He underwent laser PRP in the right eye. The neovascularization elsewhere became fibrotic. The blood has resolved. I asked you for helplast time because he did not have bleeding in his right eye to cause the visual episode leading us to look for another cause He had a CT angiogram today. It did show sort of diffuse areas of atherosclerosis. Will follow-up with you to figure out how to decrease his risk of stroke. The fluorescein angiogram of both eyes showed stability. He does not appear to have any new areas ofneovascularization elsewhere. We will observe. He will work hard to keep his blood pressure, cholesterol and glucose under good control. He will wear sunglasses when he is outdoors. I will see him back again in 3 months with a dilated fundus exam and OCT in both eyes or sooner if any problems If you have any questions or concerns, please do not hesitate to let me know Exam: See note Assessment/plan: 1. Visual disturbance, right eye, of uncertain etiology around November 18: -no recurrent episodes -see above. 2. Peripheral areas of ischemic retina with intraretinal hemorrhages, neovascularization in both eyes and preretinal hemorrhage, right eye, with sickle cell retinopathy like appearance. 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 Would also consider type 2 diabetes with proliferative diabetic changes and ocular acute occlusive disease -resolved -stable -see above 2. Early cataracts, OU: -sunglasses when outdoors Plan: -observe -return to clinic in 3 months with dilated fundus exam and OCT in both eyes or sooner if any problems -sunglasses when outdoors -good blood pressure, cholesterol and glycemic control documented in this encounter Plan of Treatment Not on filedocumented as of this encounter Procedures Procedure Name Priority Date/Time Associated Diagnosis Comme nts FUNDUS PHOTOS - OU Routine 12/25/2021 4:33 PM Diabetes Mellitu s Type Results for this - BOTH EYES CDT 2 With Proliferative procedu re are in Diabetic Retinopathy the res ults With Macular Edema section. Hypoglycemic Right Eye (HCC) documented in this encounter Results Fundus Photos - OU - Both Eyes (12/25/2021 4:33 PM CDT) Specimen (Source) Anatomical Location Collection Method / Collectio n Time Received Time / Laterality Volume Narrative OPHTHALMOLOGY IMAGING EXAM - 12/26/19 22 4:33 PM CDT Autofluorescence: Right eye-there are areas of hyper refle ctivity temporally consistent with old laser. ??The area of preretinal bloo d appears smaller potentially gone. Left eye-within normal limits Color photograph, right eye: ??The cup t o disc ratio is about 0.2. ??There is some PRP temporally. ??There is a rar e intraretinal hemorrhage temporally. ??The macula is without path ology. Color photograph, left eye: ??Cup disc r atio is about 0.4. ??There is a Fortune ring. Jose Herman M.D. 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
--- OUTSIDE RECORDS SUMMARY | 2022-03-26 22:22 | XMS_ITS | Encounter Summary ---
:1935 Author Organization [facility] Address [address] [place] [address] Care Team Providers Name Role Phone Elsewhere, Pcp Primary Care Provider Unavailable Encounter Details Date Type Department Care Team Description 11/20/2021 Ancillary Department of Jose Herman V itreous Right ([facility]); Procedure Ophthalmology in [place] Diabetes Mellitus Type 2 With Proliferat kit Diabetic Retinopathy With Macular Edema Bilateral ([facility]) [place], [place] [address] [place] [phone] Social History Tobacco Use Types Packs/Day Years [...] or relatives? How often do you attend samaritan or Patient refused 2021 caodaism services? Do you belong to any clubs or No 12/31/2021 organizations such as samaritan groups, unions, fraternal or athletic groups, or school groups? How [...] place to sleep or slept in a snf (including now)? Sex Assigned at Date Recorded Male 12/31/2021 3:41 PM CDT documented as of this encounter Plan of Treatment Not on filedocumented as of this encounter Procedures Procedure Name Priority Date/Time Associated Diagnosis Comme nts OPTICAL COHERENCE Routine 11/20/2021 4:30 PM Hemorrhage Vitreo us Results for this TOMOGRAPHY - CDT Right (HCC) procedure are in MACULA/RETINA - OU Diabetes Mellitus Type the results - BOTH EYES 2 With Proliferative section . Diabetic Retinopathy With Macular Edema Bilateral (HCC) documented in this encounter Results Optical Coherence Tomography - Macula/Retina - OU - Both Eyes (11/20/2021 4:30 PM CDT) Analysis Performed At Patho logist Time Signature CMT L Microns 261 um OPHTHALMOLOGY IMAGING EXAM CMT R Microns 262 um OPHTHALMOLOGY IMAGING EXAM Specimen (Source) Anatomical Location Collection Method / Collectio n Time Received Time / Laterality Volume Narrative OPHTHALMOLOGY IMAGING EXAM - 11/21/19 22 4:49 PM CDT Right Eye Reliability was good. OCT device used [employer] . Central macular thickness 262 um. Left Eye Reliability was good. OCT device used [employer] . Central macular thickness 261 um. Notes Right eye: normal contour Left eye: normal contour Jose Herman M.D. 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
--- OUTSIDE RECORDS SUMMARY | 2022-03-26 22:22 | XMS_ITS | Encounter Summary ---
:1935 Author Organization [facility] Address [address] [place] [address] Care Team Providers Name Role Phone Elsewhere, Pcp Primary Care Provider Unavailable Encounter Details Date Type Department Care Team Description 12/25/2021 Procedure visit Department of Vir[place], Jose High M.D. [address] [place] [phone] Amaurosis Fugax; [place] C.O[place]. Migraine Headache With Aura; [place], [place] Hemorrhage Retinal Bilateral ; [address] Hemorrhage Vitreous Right ([facility]) [place] [address] Social History Tobacco Use Types Packs/Day Years [...] or relatives? How often do you attend latter-day or Patient refused 2021 amish services? Do you belong to any clubs or No 12/31/2021 organizations such as latter-day groups, unions, fraternal or athletic groups, or [...] place to sleep or slept in a assisted (including now)? Sex Assigned at Date Recorded Male 12/31/2021 3:41 PM CDT documented as of this encounter Progress Notes Mireya Pollard CSimonOSimonA. - 12/25/2021 3:00 PM CDT Patient was assessed for Angiogram. Verified education and informed consent has been completed. Patient fits discharge criteria; patient sent to have IV removed. Dr. TORRES is the authorizing prescriber who directed the protocol. Patient's creatinine level is Lab Results Component Value Date CREATININE 0.98 11/05/2021 CREATPOC 1.2 12/25/2021 Adverse reaction noted: NONE. documented in this encounter Plan of Treatment Not on filedocumented as of this encounter Procedures Procedure Name Priority Date/Time Associated Comments Diagnosis ANGIOGRAPHY - OU - Routine 12/25/2021 4:25 PM Amaurosis Fugax Results for this BOTH EYES CDT Migraine Headache procedure are in With Aura the results Hemorrhage Retinal section. Bilateral Hemorrhage Vitreous Right (HCC) documented in this encounter Results Fluorescein Angiography - OU - Both Eyes (12/25/2021 4:25 PM CDT) Specimen (Source) Anatomical Location Collection Method / Collectio n Time Received Time / Laterality Volume Narrative OPHTHALMOLOGY IMAGING EXAM - 12/26/19 4:35 PM CDT Right Eye Dye used is fluorescein. Fluorescein dos e given is normal. Left Eye Dye used is fluorescein. Fluorescein dos e given is normal. Notes The angiogram concentrated on the right eye. ??The 1st pictures in mid AV phase. ??There is some blockage secondar y to PRP scars temporally. ??As the angiogram progresses there is some scatt ered microaneurysms temporally. ?? There is some questionable late staining of some NVE. ??There does not appear to be any active leakage. The angiogram of the left eye starts the mid AV phase. ??There is a sectorial area of ischemia temporally wi th borderline brush borderline of microaneurysms. Assessment/plan: ??1. ??Regressed neovas cularization elsewhere, right eye 2. 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 OPHTH PHOTOGRAPHY Performing Organization Address City/State/ZIP Code Phon e Number OPHTHALMOLOGY IMAGING EXAM documented in this encounter Visit Diagnoses Diagnosis Amaurosis Fugax Migraine Headache With Aura Hemorrhage Retinal Bilateral Hemorrhage Vitreous Right (HCC) documented in this encounter Administered Medications Active Administered Medications - up to 3 most recent administrations Medication Order MAR Action Action Date Dose Rate Site sodium chloride 0.9 % injection 3 mL Given 12/25/2021 4:02 PM CDT 3 mL 3 mL, intravenous, As needed, line care, to flush IV prior to and following infusion, or between multiple consecutive infusions, Starting on Thu11/20/21 at 1751 Inactive Administered Medications - up to 3 most recent administrations Medication Order MAR Action Action Date Dose Rate Site fluorescein 100 mg/mL (10 %) Given 12/25/2021 4:06 PM CDT 500 mg injection 500 mg (AK-FLUOR/FLUORESCEIN) 500 mg, intravenous, Once in imaging, contrast, Starting on Thu11/20/21 at 1751, For 1 dose, IV push over 5 - 10 seconds documented in this encounter Care Teams Teen Counselor Relationship Specialty Start Date End Date Elsewhere, Pcp PCP - General Family Medicine 01/10/21 documented as of this encounter
--- OUTSIDE RECORDS SUMMARY | 2022-03-26 22:22 | XMS_ITS | Encounter Summary ---
:1935 Author Organization [facility] Address [address] [place] [address] Care Team Providers Name Role Phone Elsewhere, Pcp Primary Care Provider Unavailable Encounter Details Date Type Department Care Team Description 12/25/2021 Silent Schedule Department of Jose Herman, Ophthalmology in [place], [place] [address] [place] [phone] (Wo rk) Social History Tobacco Use Types Packs/Day Years [...] or relatives? How often do you attend gnosticist or Patient refused 2021 christian services? Do you belong to any clubs or No 12/31/2021 organizations such as gnosticist groups, unions, fraternal or athletic groups, or [...] place to sleep or slept in a half-way (including now)? Sex Assigned at Date Recorded [...] EXAM documented in this encounter Visit Diagnoses Not on filedocumented in this encounter Care Teams Creel Clerk Relationship Specialty Start Date End Date Elsewhere, Pcp PCP - General Family Medicine 01/10/21 documented as of this encounter
--- OUTSIDE RECORDS SUMMARY | 2022-03-26 22:22 | XMS_ITS | Encounter Summary ---
:1935 Author Organization [facility] Address [address] [place] [address] Care Team Providers Name Role Phone Elsewhere, Pcp Primary Care Provider Unavailable Reason for Referral Outpatient (Routine) - Closed Specialty Diagnoses / Procedures Referred By Contact Refer red To Contact Ophthalmology Jose Herman M. D. [address] [phone] Referral ID Status Reason Start Date Expiration Date Visits Requ ested Visits Authorized [id number] Closed 2021 2022 1 1 Encounter Details Date Type Department Care Team Description 2021 Orders Only Department of Antonio Schillingag e Vitreous Right (HCC) (Primary Dx); Ophthalmology in [place]. 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 How often do you attend jehovah's witness or Patient refused 2021 temple services? Do you belong to any clubs or No 12/31/2021 organizations such as jehovah's witness groups, unions, fraLookery or athletic groups, or school groups? How [...] place to sleep or slept in a mcfp (including now)? Sex Assigned at Date Recorded Male 12/31/2021 3:41 PM CDT documented as of this encounter Plan of Treatment Scheduled Referrals Name Type Priority Associated Order Schedule Diagnoses Ophthalmology office Outpatient Referral Routine Expected: visit (clinic) 11/22/2021 (Approximate), Expires: 02/15/2023 documented as of this encounter Results Optical Coherence Tomography - [...] Eye Reliability was good. OCT device used Nosto . Central macular thickness 262 um. Left Eye Reliability was good. OCT device used [employer]IN[employer] Spectralis . Central macular thickness 261 um. Notes Right eye: normal contour Left eye: normal contour Jose Herman M.D. 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
--- OUTSIDE RECORDS SUMMARY | 2022-03-26 22:22 | XMS_ITS | Encounter Summary ---
:1935 Author Organization [facility] Address [address] [place] [address] Care Team Providers Name Role Phone Elsewhere, Pcp Primary Care Provider Unavailable Reason for Referral Outpatient (Routine) - Closed Specialty Diagnoses / Procedures Referred By Contact Refer red To Contact Neurology Diagnoses Amaurosis Fugax Migraine Headache With Aura Jose Herman M.D. [address] [phone] Referral ID Status Reason Start Date Expiration Date Visits V isits Requested Authorized [id number] Closed Specialty 11/20/2021 11/20/2022 1 1 Services Required Encounter Details Date Type Department Care Team Description 11/20/2021 Orders Only Department of Antonio Schilling Amaurosis Fugax (Primary Dx); Ophthalmology in [place]. Migraine Headache With Aura; [place], [place] [address] [facility] Hemorrhage Retinal Bilateral; [address] [place], [place] Hemorrhage Vitreous Right (H CC) [place] [phone] Social History Tobacco Use Types Packs/Day Years [...] or relatives? How often do you attend mandaeism or Patient refused 2021 yazidism services? Do you belong to any clubs or No 12/31/2021 organizations such as mandaeism groups, unions, [employer] or athletic groups, or school groups? How [...] place to sleep or slept in a detention (including now)? Sex Assigned at Date Recorded Male 12/31/2021 3:41 PM CDT documented as of this encounter Plan of Treatment Scheduled Referrals Name Type Priority Associated Diagnoses Order S chedule Neurology - General Outpatient Referral Routine Amaurosi s Fugax Expected: consult (clinic) Migraine Headache 2021 With Aura (Approximate), Expires: 02/20/2023 documented as of this encounter Results Fluorescein Angiography - OU [...] to old lymphoma v ersus diabetes Jose Herman M.D. OPHTH PHOTOGRAPHY Performing Organization Address City/State/ZIP Code Phon e Number OPHTHALMOLOGY IMAGING EXAM documented in this encounter Visit Diagnoses Diagnosis Amaurosis Fugax - Primary Migraine Headache With Aura Hemorrhage Retinal Bilateral Hemorrhage Vitreous Right (HCC) Amaurosis Fugax Migraine Headache With Aura Hemorrhage Retinal Bilateral Hemorrhage Vitreous Right (HCC) documented in this encounter Care Teams Welding Machine Operator Thermit Relationship Specialty Start Date End Date Elsewhere, Pcp PCP - General Family Medicine 01/10/21 documented as of this encounter
--- OUTSIDE RECORDS SUMMARY | 2022-03-26 22:22 | XMS_ITS | Encounter Summary ---
:1935 Author Organization [facility] Address [address] [place] [address] Care Team Providers Name Role Phone Elsewhere, Pcp Primary Care Provider Unavailable Reason for Visit Reason Comments Follow-up Local Labs in 6 Months Order ed Encounter Details Date Type Department Care Team Description 11/05/2021 Clinical Communication Division of Nicki Ortiz [facility] (Local Hematology in [facility] Labs in [address] [place] [address]. Ordered) [address] [place] [phone] Social History Tobacco Use Types Packs/Day Years [...] or relatives? How often do you attend episcopal or Patient refused 2021 mormonism services? Do you belong to any clubs or No 12/31/2021 organizations such as episcopal groups, unions, fraternal or athletic groups, or [...] to sleep or slept in a senior living (including now)? Sex Assigned at Date Recorded Male 12/31/2021 3:41 PM CDT documented as of this encounter Miscellaneous Notes Telephone Encounter - Alva Villanueva R.N. - 11/05/2021 2:38 PM CDT SUBJECTIVE CHIEF COMPLAINT / REASON FOR CALL Follow-up (Local Labs in 6 Months Ordered) Information Discussed Per Nicki Coppola PA-C: CBC to be drawn locally in 6 months. Treatment letter generated and sent to Dr. Bullock and will be mailed to patient's home address that's on file. Patient instructed to coordinate lab draw locally. He had no further questions or concerns. PLAN Disposition/Recommendation: Have CBC w/ Diff lab drawn locally in 6 months. Information/Education: patient/caller able to teach back Caller agreeable to plan of care: yes The following references were used: provider Nicki Ortiz PA-C recommendations. documented in this encounter Plan of Treatment Not on filedocumented as of this encounter Visit Diagnoses Not on filedocumented in this encounter Care Teams Supervisor Cytology Relationship Specialty Start Date End Date Elsewhere, Pcp PCP - General Family Medicine 01/10/21 documented as of this encounter
--- OUTSIDE RECORDS SUMMARY | 2022-03-26 22:22 | XMS_ITS | Encounter Summary ---
:1935 Author Organization [facility] Address [address] [place] [address] Care Team Providers Name Role Phone Elsewhere, Pcp Primary Care Provider Unavailable Reason for Visit Outpatient (Routine) - Closed Specialty Diagnoses / Procedures Referred By Contact Refer red To Contact Neurology Sirisha López M .D., Ph.D. [facility] [place] [address] [place] [phone] Referral ID Status Reason Start Date Expiration Date Visits Requ ested Visits Authorized [id number] Closed 11/21/2021 11/21/2022 1 1 Encounter Details Date Type Department Care Team Description 12/31/2021 Office Visit Department of Sirisha López Amaurosi s Fugax; Neurology in [place], Ph.D. Migraine Headache With Aura [place], [place] [address] [place] [address] [address] [place] [phone] Social History Tobacco Use Types Packs/Day Years [...] or relatives? How often do you attend advent or Patient refused 2021 jainism services? Do you belong to any clubs or No 12/31/2021 organizations such as advent groups, unions, fraternal or athletic groups, or [...] place to sleep or slept in a mcc (including now)? Education Answer Date Recorded What is the highest level of school you have completed or 12 th grade 12/31/2021 the highest degree you have received? Sex Assigned at Date Recorded Male 12/31/2021 3:41 PM CDT documented as of this encounter Consult Notes Sirisha López M.D., Ph.D. - 12/31/2021 4:00 PM CDT Images from the original note were not included. Neurology Clinic Note: Subjective: He had another episode of transient R monocular vision loss around November 18 2021. He noticed sparkly haziness then miller clouds moved across his vision that lasted about 60-90 sec. His first episode was also his R eye and he had a beige/miller curtain come down again for 60-90s sec. He saw his rn field on Dec 25 and fluoroscein angiogram was stable and there was no new areas of neovascularization. He also notes that the aspirin helps control his migraines. He is having worse easy bruising and bleeding while on both the aspirin and apixaban. No GI or bleeding symptoms. Denies any transient stroke symptoms. He will get some dizziness with head movements that resolves when his head is stationary. His migraine is a classic scintillating scotoma with central ice crystals that migrates to the periphery with jagged. CT angio head and neck shows scattered atherosclerotic disease with no significant stenosis. ESR is 8, CRP <3.0. I recommended he start aspirin 81 mg daily with apixaban 5 mg bid. Objective: CTA head and neck Dec 25 2021 Assessment/Plan: Mr. Kristofer Garcia is a 85 y.o. right-handed male from [place], [place] referred by Dr. Barnard Cardiology for question of migraine equivalent vs. amaurosis fugax. 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 His MRI/MRA Dec 2020 were negative for stroke andsignificant carotid stenosis and were stable compared to prior. He had a recurrent episode November 2021. CTA head and neck again demonstrates non-stenotic carotid disease. We discussed the pros and cons of obtaining MR vessel wall imaging to assess the plaque stability. He is happy now that his migraines are controlled with the aspirin medication. He was getting them as frequent as 2-3 weeks per week. We discussed monitoring for bleeding complications. -continue aspirin 81 mg daily -continue apixaban 5 mg bid -continue atorvastatin 20 mg daily (myalgias with higher doses, LDL at goal 56) #Migraine with visual aura - If these aureas become too bothersome to patient, can consider propranolol or verapamil preventative therapy. ---given his cardiac comorbidities, it is best for his PCP or dye feeder to titrate these medications to monitor his HR and BP and adjust other cardiac medicines as needed. ---Propranolol: start at 40 mg immediate release bid, increase by 40 mg weekly to a maximum of 80-120 mg bid (maximum 240 mg total/day) ---Verapamil: start at 80 mg qPM x 1 week, then 80 mg bid x 1 wk, then 80 mg tid (maximum 160 - 480 mg/day) ---Titrate medicine of choice until goal response is achieved. Successful treatment is a 50% reduction in frequency of migraines. Trial at maximum dose for 3 months before determining if treatment was unsuccessful. #Photopsias (Wall of sand); resolved -Follow with ophthalmology if these recur. Answers submitted by the patient for this visit: General Review of Symptoms (Submitted on 12/31/2021) No general issues: Yes Sudden loss of vision: Yes No ENT issues: Yes No heart issues: Yes Coughing up mucus (phlegm): Yes No GI issues: Yes No muscle/bone issues: Yes No skin issues: Yes Headache: Yes Light-headedness: Yes No mental health issues: Yes Bruises/bleeds easily: Yes Frequent urination: Yes Urgency: Yes Incontinence (urine leakage): Yes documented in this encounter Plan of Treatment Not on filedocumented as of this encounter Visit Diagnoses Diagnosis Amaurosis Fugax Migraine Headache With Aura documented in this encounter Care Teams Finishing Pan Operator Relationship Specialty Start Date End Date Elsewhere, Pcp PCP - General Family Medicine 01/10/21 documented as of this encounter
--- OUTSIDE RECORDS SUMMARY | 2022-03-26 22:22 | XMS_ITS | Encounter Summary ---
:1935 Author Organization [facility] Address [address] [place] [address] Care Team Providers Name Role Phone Elsewhere, Pcp Primary Care Provider Unavailable Encounter Details Date Type Department Care Team Description 12/25/2021 Hospital Encounter Department of Sirisha López Am aurosis Fugax Laboratory Medicine M.D., Ph.D. and Pathology, [address] in [place], [place] [phone] [place] [address] [place], [place] (Work) [phone] Social History Tobacco Use Types Packs/Day Years [...] or relatives? How often do you attend sikhism or Patient refused 2021 mu-ism services? Do you belong to any clubs or No 12/31/2021 organizations such as sikhism groups, unions, fraternal or athletic groups, or [...] place to sleep or slept in a halfway (including now)? Sex Assigned at Date Recorded Male 12/31/2021 3:41 PM CDT documented as of this encounter Medications at Time of Discharge Medication Sig Dispensed Refills Start Date End Date Accu-Chek Guide Glucose See Admin 0 10/30/2021 Meter misc Instructions. Accu-Chek Softclix daily. for testing 0 2 Lancets lancets ascorbic acid, vitamin C, Take 1 tablet by mouth 0 10/01/2011 (VITAMIN C) 500 mg tablet daily. atorvastatin (LIPITOR) 20 Take 20 mg by mouth at 0 06/08/2020 mg tablet bedtime. blood sugar diagnostic TEST 1 TIME PER DAY 0 08/17 (Truetrack Test) strips carvediloL (COREG) 25 mg Take 25 mg by mouth 2 0 03/06/2020 tablet (two) times a day with meals. DME CPAP DME Order 0 Eliquis 5 mg tablet 5 mg 2 (two) times a 0 2019 day. empagliflozin (JARDIANCE) Take 10 mg by mouth. 0 11/26/2021 10 mg tablet fluticasone propionate Administer 2 sprays 0 02/16 (FLONASE) 50 into nostril(s) as mcg/actuation nasal spray needed. glimepiride (AMARYL) 2 mg Take 2 mg by mouth. 0 0 05/25/2021 tablet levoFLOXacin (LEVAQUIN) 0 11/11/2021 500 mg tablet omega-3 fatty acids/fish Take 1 capsule by 0 10/2016 oil (OMEGA 3 FISH OIL mouth daily. ORAL) omeprazole (PriLOSEC) 20 Take 20 mg by mouth 2 0 06/27/[address] capsule (two) times a day. pantoprazole (PROTONIX) Take 1 tablet (40 mg 90 tablet 3 40 mg EC tablet total) by mouth every morning before breakfast. salmon oiL-omega-3 fatty Take by mouth. 0 022 acids 1,000-210 mg capsule silver sulfADIAZINE Apply 1 application 0 019 (SILVADENE, SSD) 1 % topically as needed. cream spironolactone Take 0.5 tablets (12.5 45 tablet 3 1 (ALDACTONE) 25 mg tablet mg total) by mouth daily. triamcinolone (KENALOG) Apply 1 application 0 08/2020 0.1 % cream topically as needed. valsartan (DIOVAN) 320 mg Take 320 mg by mouth 0 02/21/2020 tablet daily. vitamin E 400 unit Take 1 capsule by 0 10/01/2011 capsule mouth daily. documented as of this encounter Plan of Treatment Not on filedocumented as of this encounter Procedures Procedure Name Priority Date/Time Associated Comments Diagnosis SEDIMENTATION RATE, B Routine 12/25/2021 8:12 AM Amaurosis Fug ax Results for this CDT procedure are i n the results section. C-REACTIVE PROTEIN Routine 12/25/2021 8:12 AM Amaurosis Fugax Results for this (CRP), S/P CDT procedure are i n the results section. documented in this encounter Results CRP (C-Reactive Protein) (12/25/2021 8:12 AM CDT) P athologist Signature C-Reactive <3.0 <=8.0 mg/L 12/25/2021 DTL Protein (CRP), 9:36 AM CDT S Specimen Anatomical Collection Method Collection Time Receive d Time (Source) Location / / Volume Laterality Blood (Blood, 12/25/2021 8:12 AM 12/26/19 22 9:07 Venous) CDT AM CDT Sirisha López M.D., Ph.D. LAB BLOOD ADD-ON Performing Organization Address City/[facility] Code Phon e Number [facility] - [address] [place], [place] [address] [facility] [place] [address] Laboratories-[facility] [address] Sedimentation Rate (12/25/2021 8:12 AM CDT) Analysis Performed At Patho logist Time Signature Sedimentation 8 3 - 28 12/25/2021 DTL Rate, B mm/h 9:43 AM CDT Specimen Anatomical Collection Method Collection Time Receive d Time (Source) Location / / Volume Laterality Blood (Blood, 12/25/2021 8:12 AM 12/26/19 22 8:43 Venous) CDT AM CDT Sirisha López M.D., Ph.D. LAB BLOOD ADD-ON Performing Organization Address City/State/ZIP Code Phon e Number [facility] - [address] [place], [place] [address] [facility] [place] [address] Laboratories-[facility] [address] documented in this encounter Visit Diagnoses Diagnosis Amaurosis Fugax documented in this encounter Care Teams Automotive Light Mechanic Relationship Specialty Start Date End Date Elsewhere, Pcp PCP - General Family Medicine 01/10/21 documented as of this encounter
--- OUTSIDE RECORDS SUMMARY | 2022-03-26 22:22 | XMS_ITS | Encounter Summary ---
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 How often do you attend hinduism or Patient refused 2021 zoroastrianism services? Do you belong to any clubs or No 12/31/2021 organizations such as hinduism groups, unions, fraternal or athletic groups, or [...] place to sleep or slept in a long term (including now)? Sex Assigned at Date Recorded Male 12/31/2021 3:41 PM CDT documented as of this encounter Plan of Treatment Not on filedocumented as of this encounter Procedures Procedure Name Priority Date/Time Associated Diagnosis Comme nts OPTICAL COHERENCE Routine 12/25/2021 3:36 PM Diabetes Mellitus Type Results for this TOMOGRAPHY - CDT 2 With Proliferative procedu re are in MACULA/RETINA - OU Diabetic Retinopathy t he results - BOTH EYES With Macular Edema section. 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 OCT device used [employer] SpectralmValent . Central macular thickness 264 um. Left Eye Reliability was good. OCT device used [employer] Spectralis . Central macular thickness 256 um. Notes Right eye: normal contour, mild erm Left eye: ??normal contour, mild erm Jose Herman M.D. 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
--- OUTSIDE RECORDS SUMMARY | 2022-03-26 22:22 | XMS_ITS | Encounter Summary ---
:1935 Author Organization [facility] Address [address] [place] [address] Care Team Providers Name Role Phone Elsewhere, Pcp Primary Care Provider Unavailable Reason for Referral Outpatient (Routine) - Authorized Specialty Diagnoses / Procedures Referred By Contact Refer red To Contact Ophthalmology Jose Herman M. D. [address] [phone] Referral ID Status Reason Start Date Expiration Date Visits V isits Requested Authorized [id number] Authorized 12/25/2021 12/25/2022 1 1 Scheduling Instructions return to clinic in 3 months with dilate d fundus exam and OCT in both eyes Encounter Details Date Type Department Care Team Description 12/25/2021 Orders Only Department of [facility], Diabetes [facility] Type Ophthalmology in [place] [address] With Proliferative [place], [place] [address] [facility] Diabetic Retinopathy [address] [place], [place] [address] Hypoglycemic Right Eye [phone] (HCC) (Primary Dx) Social History Tobacco Use Types Packs/Day Years [...] or relatives? How often do you attend mormon or Patient refused 2021 evangelical services? Do you belong to any clubs or No 12/31/2021 organizations such as mormon groups, unions, [employer] or athletic groups, or school groups? How [...] place to sleep or slept in a fpc (including now)? Sex Assigned at Date Recorded Male 12/31/2021 3:41 PM CDT documented as of this encounter Plan of Treatment Scheduled Orders Name Type Priority Associated Diagnoses Order S chedule Optical Coherence Ophthalmology Routine Diabetes Mellitus Type Expected: Tomography - 2 With Proliferative 022 Macula/Retina - OU - Diabetic Retinopathy (Approximate), Both Eyes With Macular Edema Expires: Hypoglycemic Right Eye 03/27 (HCC) Scheduled Referrals Name Type Priority Associated Order Schedule Diagnoses Ophthalmology office Outpatient Referral Routine Expected: visit (clinic) 03/27/2022, Expires: 03/27/2023 documented as of this encounter Visit Diagnoses Diagnosis 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
--- OUTSIDE RECORDS SUMMARY | 2022-03-26 22:22 | XMS_ITS | Encounter Summary ---
:1935 Author Organization [facility] Address [address] [place] [address] Care Team Providers Name Role Phone Elsewhere, Pcp Primary Care Provider Unavailable Reason for Referral Outpatient (Routine) - Closed Specialty Diagnoses / Procedures Referred By Contact Refer red To Contact Neurology Sirisha López M .D., Ph.D. [address] [phone] Referral ID Status Reason Start Date Expiration Date Visits Requ ested Visits Authorized [id number] Closed 11/21/2021 11/21/2022 1 1 MRI/CAT/PET Scan (Routine) - Closed Specialty Diagnoses / Procedures Referred By Contact Refer red To Contact Radiology Diagnoses Amaurosis Fugax Sirisha López M.D., [facility] Procedures CT Head Neck Angiogram with IV Contrast Ph.D. [address] [place] [phone] Referral ID Status Reason Start Date Expiration Date Visits Requ ested Visits Authorized [id number] Closed 11/21/2021 11/21/2022 1 1 Encounter Details Date Type Department Care Team Description 11/21/2021 Documentation Department of Neurology in Marjorie López, [place], [place] Maddie, Ph.D. [address] [place] [address] [place] [address] [place] [phone] [place], [place] [phone] (Wo rk) Social History Tobacco Use Types [...] or relatives? How often do you attend hoahaoism or Patient refused 2021 yazidi services? Do you belong to any clubs or No 12/31/2021 organizations such as hoahaoism groups, unions, fraternal or athletic groups, or [...] documented as of this encounter Progress Notes Sirisha López M.D., Ph.D. - 11/21/2021 10:06 PM CDT He had another episode of transient monocular vision loss. -CT angiogram head neck 1st available -ESR/CRP 1st available -follow up with me after tests -initiate aspirin 81 mg daily, can stop if workup is reassuring to avoid aggressive anticoagulation -continue apixaban 5 mg b.i.d. documented in this encounter Plan of Treatment Scheduled Referrals Name Type Priority Associated Order Schedule Diagnoses Neurology office Outpatient Referral Routine 1 Oc currences visit (clinic) starting 11/2021 until 3 documented as of this encounter Results CT Head Neck Angiogram with IV Contrast (12/25/2021 11:03 AM CDT) Anatomical Region Laterality Modality Head and Neck, Neuroradiology RST LOS, N/A C omputed Tomography, Computed Neuroradiology ARZ LOS, Neuroradiology T omography FLA LOS Specimen (Source) Anatomical Collection Method Collection Time Re ceived Time Location / / Volume Laterality 12/25/2021 11:21 AM CDT Impressions 12/25/2021 12:[address] angiogram study shows scattered atherosclerotic involvement of the head and neck vessels as detailed above. There is approximately 5 0 percent narrowing of the left proximal cervical ICA at the level of carotid bifurcation and similar atherosclerotic involvement of the cavernous ICA on the right side in the region of the anterior genu. 2. Stable occluded left vertebral artery proximally with reconstitution in the V3 segment and tandem areas of moderate to severe narrowing in the V4 segment. 3. No evidence of aneurysm or vascular d issection. Narrative 12/25/2021 12:13 PM CDT EXAM: CT HEAD NECK ANGIOGRAM WITH IV CONTRAST Including 3D image post-processing. COMPARISON: MR angiogram study from 12/16 FINDINGS: There is a three-vessel aortic arch with scattered atherosclerotic involvement of the arch vessels. Bilateral common carotid arteri es again show scattered atherosclerotic involvement without significant stenosis. Atherosclerotic involvement of bilateral carotid bifurcations is also noted, left greater than right with approximately 50 percent stenosis o f the proximal cervical ICA on the left side at the level of carotid bifurcation, based on NASCET cri teria. Bilateral external and distal internal carotid arteries show minor scattered atheroscle rotic involvement without hemodynamic significant stenosis. The right vertebral artery originates fr om the subclavian artery without significant ostial stenosis. Unremarkable course and calibe r of the right vertebral artery. 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 The distal vertebral artery is reconstituted in the region of the V2-V3 junction, likely through muscular branches/collaterals. The V3 segment shows minor atherosclerotic i nvolvement without significant stenosis. Intracranially, bilateral petrosal and c avernous ICA segments show prominent atherosclerotic involvement, right greater than left. Ad ditional soft plaque involving the right ICA in the region of anterior genu results in about 50 per cent luminal stenosis. Bilateral MCA and LORENA vessels do not reveal any significant stenosis or large vessel occlusion. Within the posterior circulation, there is atherosclerotic involvement of the V4 segment of right vertebral artery without significant isrrael nosis. On the left side, there is prominent atherosclerotic involvement of the V4 segment resulting in scattered areas of moderate to severe luminal stenosis, overall similar to prior MR angiogram st udy. The basilar artery is within normal limits. Scattered atherosclerotic involvement of bilateral FILTER CLEANER vessels without hemodynamically significant stenosis. Reticular changes involving bilateral caty ng apices. Bilateral chronic appearing paranasal sinus disease along the maxillary sinuses. Mul tiple dental fillings. Small periapical cyst along the left posterior maxillary molar. Procedure Note Art Gonzalez M.B.B.S., [place]. - 022 EXAM: CT HEAD NECK ANGIOGRAM WITH IV CON TRAST Including 3D image post-processing. COMPARISON: MR angiogram study from 12/16 FINDINGS: There is a three-vessel aortic arch with scattered atherosclerotic involvement of the arch vessels. Bilateral common carotid arteri es again show scattered atherosclerotic involvement without significant stenosis. Atherosclerotic involvement of bilateral carotid bifurcations is also noted, left greater than right with approximately 50 percent stenosis o f the proximal cervical ICA on the left side at the level of carotid bifurcation, based on NASCET cri teria. Bilateral external and distal internal carotid arteries show minor scattered atheroscle rotic involvement without hemodynamic significant stenosis. The right vertebral artery originates fr om the subclavian artery without significant ostial stenosis. Unremarkable course and calibe r of the right vertebral artery. 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 The distal vertebral artery is reconstituted in the region of the V2-V3 junction, likely through muscular branches/collaterals. The V3 segment shows minor atherosclerotic i nvolvement without significant stenosis. Intracranially, bilateral petrosal and c avernous ICA segments show prominent atherosclerotic involvement, right greater than left. Ad ditional soft plaque involving the right ICA in the region of anterior genu results in about 50 per cent luminal stenosis. Bilateral MCA and LORENA vessels do not reveal any significant stenosis or large vessel occlusion. Within the posterior circulation, there is atherosclerotic involvement of the V4 segment of right vertebral artery without significant isrrael nosis. On the left side, there is prominent atherosclerotic involvement of the V4 segment resulting in scattered areas of moderate to severe luminal stenosis, overall similar to prior MR angiogram st udy. The basilar artery is within normal limits. Scattered atherosclerotic involvement of bilateral FILTER CLEANER vessels without hemodynamically significant stenosis. Reticular changes involving bilateral caty ng apices. Bilateral chronic appearing paranasal sinus disease along the maxillary sinuses. Mul tiple dental fillings. Small periapical cyst along the left posterior maxillary molar. IMPRESSION: 1. CT angiogram study shows scattered at herosclerotic involvement of the head and neck vessels as detailed above. There is approximately 5 0 percent narrowing of the left proximal cervical ICA at the level of carotid bifurcation and similar atherosclerotic involvement of the cavernous ICA on the right side in the region of the anterior genu. 2. Stable occluded left vertebral artery proximally with reconstitution in the V3 segment and tandem areas of moderate to severe narrowing in the V4 segment. 3. No evidence of aneurysm or vascular d issection. Sirisha López M.D., Ph.D. IMG CT PROCEDURES CRP (C-Reactive Protein) (12/25/2021 8:12 AM CDT) [...] Organization Address City/State/ZIP Code Phon e Number [facility] - [address] [place], [place] [address] [facility] [place] [address] [facility] [address] Sedimentation Rate (12/25/2021 [...] Organization Address City/State/ZIP Code Phon e Number [facility] - [address] [place], [place] [address] [facility] [place] [address] Formerly [facility] [address] documented in this encounter Visit Diagnoses Diagnosis Amaurosis Fugax - Primary Amaurosis Fugax documented in this encounter Care Teams Oxyacetylene Burner Relationship Specialty Start Date End Date Elsewhere, Pcp PCP - General Family Medicine 01/10/21 documented as of this encounter
--- OUTSIDE RECORDS SUMMARY | 2022-03-26 22:22 | XMS_ITS | Encounter Summary ---
:1935 Author Organization [facility] Address [address] [place] [address] Care Team Providers Name Role Phone Elsewhere, Pcp Primary Care Provider Unavailable Encounter Details Date Type Department Care Team Description 11/20/2021 Ancillary Procedure Department of Ophthalmology Social History Tobacco Use Types Packs/Day Years [...] you attend advent or Patient refused 2021 sikh services? Do you belong to any clubs [...] Procedure Name Priority Date/Time Associated Comments Diagnosis OPHTHALMOLOGY IMAGE Routine 11/20/2021 12:00 Resu lts for this EXAM AM CDT procedure are i n the results section. documented in this encounter Results Eyes Spectralis OCT-Ophthalmology Image Exam (11/20/2021 12:00 AM CDT) Specimen (Source) Anatomical Location Collection Method / Collectio n Time Received Time / Laterality Volume Narrative [facility] - 11/20/2021 4:31 PM CDT This order has been created and auto-finalized to support the import of images acquired without order. The clini sakina documentation to support these images can be found on the encounter tai t produced images. Provider Not In System IMG NON RAD IMAGING PROCEDUR ES Performing Organization Address City/State/ZIP Code Phon e Number [facility] NA documented in this encounter Visit Diagnoses Not on filedocumented in this encounter Care Teams Test Consultant Relationship Specialty Start Date End Date Elsewhere, Pcp PCP - General Family Medicine 01/10/21 documented as of this encounter
--- OUTSIDE RECORDS SUMMARY | 2022-03-26 22:22 | XMS_ITS | Encounter Summary ---
:1935 Author Organization [facility] Address [address] [place] [address] Care Team Providers Name Role Phone Elsewhere, Pcp Primary Care Provider Unavailable Reason for Visit Reason Comments Diabetic Eye Exam Last A1c 6.1 on 06/27/21 Outpatient (Routine) - Closed Specialty Diagnoses / Procedures Referred By Contact Refer red To Contact Ophthalmology Jose Herman M. D. 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 How often do you attend episcopalian or Patient refused 2021 mandaen services? Do you belong to any clubs or No 12/31/2021 organizations such as episcopalian groups, unions, fraC$ cMoney or athletic groups, or school groups? How [...] place to sleep or slept in a [place] [facility] [place] (including now)? Sex Assigned at Date Recorded Male 12/31/2021 3:41 PM CDT documented as of this encounter Progress Notes Jose Herman M.D. - 11/20/2021 3:45 PM CDT Kristofer Garcia was seen today urgently because a week ago he had an episode of blurry vision in the right eye. He states it kind of fogged out. It almost went completely black. It lasted 2 minutes and then went away. He had a history of a vitreous hemorrhage in the past. He is here today to see if we see any bleeding. He has no evidence of a recurrent hemorrhage in the right eye. I worry about amaurosis fugax. He does not have any evidence of eye Hollenhorst plaque. We will get a neurology consult to make sure he isappropriately anticoagulated. I will defer to Dr. López to see if we need to repeat CT angiogram. He had an MRI/MRA and ruled out stroke. He has some vascular changes The patient knows the signs and symptoms of amaurosis fugax and what to do should they occur. 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 He has no preretinal heme. He did not bleed If anyone has any questions and or concerns, please let me know ?? Exam: ??See note ?? Assessment/plan: 1. Questionable amaurosis fugax, right eye: -get Dr. López's opinion regarding for further workup. -no obvious Hollenhorst plaque, right eye -patient knows what to do if it happens again. 2. 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 ??Would also consider type 2 diabetes with proliferative d iabetic changes and ocular acute occlusive disease -resolved -the preretinal hemorrhage appears to have resolved. -there is no active neovascularization ?? 2. Early cataracts, OU: -sunglasses when outdoors? Plan: -refer to Dr. 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
--- OUTSIDE RECORDS SUMMARY | 2022-03-26 22:22 | XMS_ITS | Encounter Summary ---
:1935 Author Organization [facility] Address [address] [place] [address] Care Team Providers Name Role Phone Elsewhere, Pcp Primary Care Provider Unavailable Reason for Visit Reason Comments Triage Encounter Details Date Type Department Care Team Description 2021 Clinical Communication Department of Jose Herman Ophthalmology in [place]. [place], [place] [address] [place] [phone] Social History Tobacco Use Types Packs/Day Years [...] or relatives? How often do you attend taoist or Patient refused 2021 hinduism services? Do you belong to any clubs or No 12/31/2021 organizations such as taoist groups, unions, fraternal or athletic groups, or [...] this encounter Miscellaneous Notes Telephone Encounter - Antonio Schilling V. - 2021 3:44 PM CDT Order placed Telephone Encounter - Trudi Dumont - 2021 1:14 PM CDT Please review, reply, and place an order right away, if needed. ??? Which eye is bothering you? Right eye ??? Have you had eye surgery in the past 90 days (with who and when)? No ??? Please describe all of the concerns/symptoms you are experiencing and how long it has been goingon: Today, vision got miller and hazy lasted about a min and it has not happen again. ??? Symptoms are staying the same, getting better, getting worse? Have you noticed any changes in your vision? No ??? Are you currently having any pain with your eye(s)? (If so, on a scale of 1- 10, 10 being the worst, what would you rate your pain)? No ??? Do you wear contact lens? No ??? Is there anything you have tried to do to help your eyes (warm/cold compress, irrigation, artificial tears, etc)? No ??? Are you followed by an eye doctor at [facility]? Dr. Herman ??? Do you see anyone regularly for eye exams? No ??? What is the best phone number to reach you at? [phone] ??? If our provider would like to see you, about how long would it take to get to [facility]? Avail- Takes about an hr Request taken by documented in this encounter Plan of Treatment Not on filedocumented as of this encounter Visit Diagnoses Not on filedocumented in this encounter Care Teams Rn Nicu Relationship Specialty Start Date End Date Elsewhere, Pcp PCP - General Family Medicine 01/10/21 documented as of this encounter
--- OUTSIDE RECORDS SUMMARY | 2022-03-26 22:22 | XMS_ITS | Encounter Summary ---
:1935 Author Organization [facility] Address [address] [place] [address] Care Team Providers Name Role Phone Elsewhere, Pcp Primary Care Provider Unavailable Reason for Referral MRI/CAT/PET Scan (Routine) - Closed Specialty Diagnoses / Procedures Referred By Contact Refer red To Contact Radiology Diagnoses Amaurosis Fugax Sirisha López M.D., [facility] Procedures CT Head Neck Angiogram with IV Contrast Ph.D. [address] [place] [phone] Referral ID Status Reason Start Date Expiration Date Visits Requ ested Visits Authorized [id number] Closed 11/21/2021 11/21/2022 1 1 Reason for Visit MRI/CAT/PET Scan (Routine) - Closed Specialty Diagnoses / Procedures Referred By Contact Refer red To Contact Radiology Diagnoses Amaurosis Fugax Sirisha López M.D., [facility] Procedures CT Head Neck Angiogram with IV Contrast Ph.D. [address] [place] [phone] Referral ID Status Reason Start Date Expiration Date Visits Requ ested Visits Authorized [id number] Closed 11/21/2021 11/21/2022 1 1 Encounter Details Date Type Department Care Team Description 12/25/2021 Hospital Encounter Department of Sirisha López Am aurosis Fugax RadiologyMoe M.D., Ph.D. Building, in [address] [place] [address] 200 [facility] [address] [place], [place] [phone] (Work) [phone] Social History Tobacco Use Types Packs/Day Years [...] or relatives? How often do you attend caodaism or Patient refused 2021 pentecostal services? Do you belong to any clubs or No 12/31/2021 organizations such as caodaism groups, unions, fraternal or athletic groups, or [...] place to sleep or slept in a alf (including now)? Sex Assigned at Date Recorded [...] Type Priority Associated Diagnoses Order S chedule Creatinine, POCT Point of Care STAT STAT for 1 Occurrences Testing-Docked starting 12/16 Device until 2 documented as of this encounter Procedures Procedure Name Priority Date/Time Associated Comments Diagnosis CT HEAD NECK RAD - Routine 12/25/2021 11:03 Amaurosis Fugax Results for this ANGIOGRAM WITH IV (most inpatients AM CDT proced ure are in CONTRAST and all the results outpatients) section. CREATININE, POCT, Routine 12/25/2021 10:24 Result s for this B AM CDT procedure are i n the results section. CREATININE, POCT, Routine 12/25/2021 10:24 Result s for this B AM CDT procedure are i n the results section. documented in this encounter Results CT Head Neck Angiogram with IV Contrast (12/25/2021 11:03 AM CDT) Anatomical Region Laterality Modality Head and Neck, Neuroradiology RST LOS, N/A C omputed Tomography, Computed Neuroradiology ARZ LOS, Neuroradiology T omography FLA [facility] Specimen (Source) Anatomical Collection Method Collection Time [...] normal limits. Scattered atherosclerotic involvement of bilateral ELECTROSLAG WELDING MACHINE OPERATOR vessels without hemodynamically significant stenosis. Reticular changes involving bilateral caty ng apices. Bilateral chronic appearing paranasal sinus disease along the maxillary sinuses. Mul tiple dental fillings. Small periapical cyst along the left posterior maxillary molar. Procedure Note Art Gonzalez M.B.B.S., M.D. - 022 EXAM: CT HEAD NECK ANGIOGRAM [...] overall similar to prior MR angiogram [facility]. The basilar artery is within normal limits. Scattered atherosclerotic involvement of bilateral ELECTROSLAG WELDING MACHINE OPERATOR vessels without hemodynamically significant stenosis. Reticular changes [...] Sirisha López M.D., Ph.D. IMG CT PROCEDURES Creatinine, POCT (12/25/2021 10:24 AM CDT) athologist Signature Creatinine, 1.2 0.7 - 1.4 12/25/2021 PCDT POCT, B mg/dL 10:28 AM CDT Comment: ----ADDITIONAL INFORMATION---- Performed at the Point of Care Specimen Anatomical Collection Method Collection Time Receive d Time (Source) Location / / Volume Laterality Blood 12/25/2021 10:24 12/25/2021 AM CDT 10:28 AM CDT Unknown Provider LAB POCT ORDERABLES - DEVICE Performing Organization Address City/State/ZIP Code Phon e Number POC [facility] PERFORM[facility] [address] [place] [address] LABS PCDT [facility] [place], [place] [id number] [place] [address] (ABNORMAL) Creatinine, POCT (12/25/2021 10:24 AM CDT) athologist Signature eGFR-Black/Afri 63 >=60 12/25/2021 PCMO can Malaysian, mL/min/BSA 10:28 AM CDT POCT Comment: ----ADDITIONAL INFORMATION---- Estimated GFR calculated using the 2009 CKD_EPI creatinine equation. eGFR Non-Black/ 54 (L) >=60 mL/min/BSA 12/25/2021 10:28 AM CDT PCMO Malaysian POCT Comment: ----ADDITIONAL INFORMATION---- Estimated GFR calculated using the 2009 CKD_EPI creatinine equation. Specimen Anatomical Collection Method Collection Time Receive d Time (Source) Location / / Volume Laterality Blood 12/25/2021 10:24 12/25/2021 AM CDT 10:28 AM CDT Unknown Provider LAB POCT ORDERABLES - DEVICE Performing Organization Address City/State/ZIP Code Phon e Number POC RST SABIANIST [address] [place] [address] OUTPATIENT LABS PCMO [facility] [place] [address] [place] POC [address] documented in this encounter Visit Diagnoses Diagnosis Amaurosis Fugax documented in this encounter Administered Medications Inactive Administered Medications - up to 3 most recent administrations Medication Order MAR Action Action Date Dose Rate Site iohexoL 350 mg iodine/mL solution Given 12/25/2021 9:51 AM CDT 1 00 mL 1-200 mL (OMNIPAQUE) 1-200 mL, intravenous, Once in imaging, contrast, Starting on Thu12/25/21 at 1023, For 1 dose, Imaging Protocol Orders, Dose per Radiant Medication Guidelines sodium chloride (PF) 0.9 % injection 1-1 00 mL Given 12/25/2021 10:41 AM CDT 35 mL 1-100 mL, intravenous, Once, On Thu12/25/21 at 1030, For 1 dose, Imaging Protocol Orders documented in this encounter Care Teams Volleyball Commentator Relationship Specialty Start Date End Date Elsewhere, Pcp PCP - General Family Medicine 01/10/21 documented as of this encounter
--- OUTSIDE RECORDS SUMMARY | 2022-03-26 22:22 | XMS_ITS | Encounter Summary ---
:1935 Author Organization [facility] Address [address] [place] [address] Care Team Providers Name Role Phone Elsewhere, Pcp Primary Care Provider Unavailable Encounter Details Date Type Department Care Team Description 11/21/2021 Clinical Communication Department of Sirisha López Neurology in M.D., Ph.D. [place], [place] [address] [place] [address] [address] [place] [phone] [phone] Social History Tobacco Use Types Packs/Day Years [...] you attend gnosticist or Patient refused 2021 amish services? Do [...] place to sleep or slept in a skilled nursing (including now)? Sex Assigned at Date Recorded Male 12/31/2021 3:41 PM CDT documented as of this encounter Plan of Treatment Not on filedocumented as of this encounter Visit Diagnoses Not on filedocumented in this encounter Care Teams Artist Model Relationship Specialty Start Date End Date Elsewhere, Pcp PCP - General Family Medicine 01/10/21 documented as of this encounter
--- OUTSIDE RECORDS SUMMARY | 2022-03-26 22:22 | XMS_ITS | Encounter Summary ---
:1935 Author Organization [facility] Address [address] [place] [address] Care Team Providers Name Role Phone Elsewhere, Pcp Primary Care Provider Unavailable Encounter Details Date Type Department Care Team Description 12/25/2021 Ancillary Procedure Department of Jose Herman, Ophthalmology in .[place], [place] [address] [place] [phone] Social History Tobacco Use Types Packs/Day Years [...] or relatives? How often do you attend restoration or Patient refused 2021 temple services? Do you belong to any clubs or No 12/31/2021 organizations such as restoration groups, unions, fraternal or athletic groups, or [...] place to sleep or slept in a jail (including now)? Sex Assigned at Date Recorded [...] Narrative OPHTHALMOLOGY IMAGING EXAM - 12/26/19 22 4:35 PM CDT Right Eye Dye used [...] on filedocumented in this encounter Care Teams Fabricator Foam Rubber Relationship Specialty Start Date End Date Elsewhere, Pcp PCP - General Family Medicine 01/10/21 documented as of this encounter
--- OUTSIDE RECORDS SUMMARY | 2022-03-26 22:22 | XMS_ITS | Clinical Summary ---
:1935 Author Organization [facility] Address [address] [place] [address] Care Team Providers Name Role Phone Elsewhere, Pcp Primary Care Provider Unavailable Source Comments Patient records contain information from all sites at [facility]. For routine questions regarding patient records, call [phone] during business hours, M-F 8:00 AM - 5:00 PM Central Time. Record requests for emergency care only can be directed to [phone] at any time.[facility] Allergies Active Allergy Reactions Severity Noted Date Comments Amlodipine Other (see comments) 08/06/2020 Leg swe lling on 5mg Metformin Diarrhea 07/03/2020 Medications Medication Sig Dispensed Refills Start Date End Date Status omega-3 fatty Take 1 capsule by 0 11/20/2016 Active acids/fish oil (OMEGA mouth daily. 3 FISH OIL ORAL) ascorbic acid, vitamin Take 1 tablet by 0 10/01/2011 Active C, (VITAMIN C) 500 mg mouth daily. tablet vitamin E 400 unit Take 1 capsule by 0 10/01/2011 Active capsule mouth daily. Eliquis 5 mg tablet 5 mg 2 (two) times 0 04/19/2020 Active a day. carvediloL (COREG) 25 Take 25 mg by 0 03/06/2020 Active mg tablet mouth 2 (two) times a day with meals. atorvastatin (LIPITOR) Take 20 mg by 0 06/08/2020 Active 20 mg tablet mouth at bedtime. silver sulfADIAZINE Apply 1 0 04/15/2019 Active (SILVADENE, SSD) 1 % application cream topically as needed. triamcinolone Apply 1 0 09/18/2020 Activ e (KENALOG) 0.1 % cream application topically as needed. valsartan (DIOVAN) 320 Take 320 mg by 0 02/21/2020 Active mg tablet mouth daily. DME CPAP DME Order 0 Active pantoprazole Take 1 tablet (40 90 tablet 3 01/11/2021 Active (PROTONIX) 40 mg EC mg total) by mouth tablet every morning before breakfast. spironolactone Take 0.5 tablets 45 tablet 3 03/05/2021 Active (ALDACTONE) 25 mg (12.5 mg total) by tablet mouth daily. Additional Information Patient taking differently: 25 mg oral Daily, Reported on 11/20/2021 fluticasone propionate Administer 2 sprays into 0 Active (FLONASE) 50 mcg/actuation nostril(s) as needed. nasal spray omeprazole (PriLOSEC) 20 mg Take 20 mg by mouth 2 0 06/27/[address] capsule (two) times a day. salmon oiL-omega-3 fatty Take by mouth. 0 08/06/2021 Active acids 1,000-210 mg capsule glimepiride (AMARYL) 2 mg Take 2 mg by mouth. 0 /12/2021 Active tablet blood sugar diagnostic TEST 1 TIME PER DAY 0 022 Active (Truetrack Test) strips Accu-Chek Guide Glucose See Admin Instructions. 0 Active Meter misc Accu-Chek Softclix Lancets daily. for testing 0 10/16 Active lancets levoFLOXacin (LEVAQUIN) 500 0 11/11/2021 Active mg tablet aspirin [address] tablet Take 1 tablet (81 mg 30 tablet 0 11/21 Active total) by mouth daily. empagliflozin (JARDIANCE) 10 Take 10 mg by mouth. 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 Migraine Head ache With Aura 12/25/2021 Silent Schedule Ophthalmology Jose Herman M.D. 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 Hemorrhage Vitr eous Right ([facility]); Hemorrhage Reti nal Bilateral; Amaurosis Fugax 12/25/2021 Ancillary Ophthalmology Jose Herman Procedure Maddie High 12/25/2021 Procedure visit Ophthalmology Jose Herman Amaurosis Fugax; H, M.D. Migraine Headache With Aura; Mireya Pollard Hemorrhage Retinal Bilateral; M, C.O.A. 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 12/25/2021 [facility] Laboratory Medicine Sirisha López osis Fugax Encounter Maddie Barr, Ph.D. 12/25/2021 Orders Only Ophthalmology Loan Alvarez Type 2 With Proliferative Diabetic Retino kingston With Macular Ed ronan Hypoglycemic Ri ght Eye (HCC) (Prim cielo Dx) 12/25/2021 Ancillary Procedure from Last 3 Months Immunizations Name Administration Dates Next Due HepA Adult 10/10/2020 (Deferred: Patient decision) HepB Adult (HEPLISAV-B) 10/10/2020 (Deferred: Parental decision) Influenza Split 02/16/2012, 02/16/2008, 02/15/2007, 03/29/2003 Influenza TIV (IM) 03/04/2019 Influenza, Quadrivalent, Adjuvanted, 03/06/2020 Preservative Free PPSV23 01/29/2010, 05/18/2004, 02/29/2004 RZV (SHINGRIX) 10/10/2020, 06/12/2020 SARS-COV-2 (COVID-19) - PFIZER (12 01/30/2021 years or older) Td Preservative Free (TENIVAC, 04/17/2009 DECAVAC) Td, (Adult) Unspecified 12/25/1998 Tdap 06/12/2020 Family History Medical History Relation Name Comments Cataracts Brother 1 vincent Diabetes Brother 1 vincent Macular degeneration Brother 1 vincent Cataracts Brother 2 javier Amblyopia Neg Hx Blindness Neg Hx Strabismus Neg Hx Relation Name Status Comments Brother 1 vincent Brother 2 javier Social History Tobacco Use Types Packs/Day Years [...] you attend taoist or Patient refused 2021 jew services? Do you belong to any clubs [...] place to sleep or slept in a residential (including now)? Education Answer Date Recorded What is the highest level of school you have completed or 12 th grade 12/31/2021 the highest degree you have received? Sex Assigned at Date Recorded Male 12/31/2021 3:41 PM CDT Last Filed Vital Signs Vital Sign Reading Time Taken Comments Blood Pressure 171/71 11/05/2021 2:03 PM CDT Pulse 73 11/05/2021 2:03 PM CDT Temperature 35.8 ??C (96.4 ??F) 11/05/2021 2:03 PM CDT Respiratory Rate 22 01/11/2021 6:45 AM CDT Oxygen Saturation 95% 01/11/2021 11:15 AM CDT Inhaled Oxygen Concentration - - Weight 93.2 kg (205 lb 7.5 oz) 11/05/2021 2:03 PM CDT Height 172 cm (5' 7.72) 11/05/2021 2:03 PM CDT Body Mass Index 31.5 11/05/2021 2:03 PM CDT Plan of Treatment Health Maintenance Due Date Last Done Comments Diabetic Office Visit with Foot 1935 Exam Hemoglobin A1C 1935 Urine Albumin 1935 Hepatitis B Vaccines (1 of 3 - 1995 Risk 3-dose series) Depression Screening (Annual 05/18/2021 PHQ-2) Potassium Level 03/28/2022 03/28/2021, 01/18/2021, 01/10/2021, Additional history exists Sodium Level 03/28/2022 03/28/2021, 01/18/2021, 01/10/2021, Additional history exists Creatinine Level 12/25/2022 12/25/2021, 11/05/2021, 05/02/2021, Additional history exists Dilated Eye Exam 12/25/2022 12/25/2021, 12/25/2021, 11/20/2021, Additional history exists DTaP,Tdap,and Td Vaccines (2 - Td 06/12/2030 06/12/2020, , or Tdap) 12/25/1998 Zoster Vaccines Completed 10/10/2020, 06/12/2020 Fall Risk Screen (Annual) Completed 12/25/2021 Pneumococcal vaccine (65+ years) Completed 12/30/2021, , 05/18/2004, Additional history exists Influenza Vaccine Completed 02/17/2022, 03/07/2021, 03/06/2020, Additional history exists COVID-19 Vaccine Completed 03/05/2022, 08/22/2021, 01/30/2021, Additional history exists Medical Devices Implanted Type Area Gold Stamper Device Shelf Model / Identifier Expiration Serial / Date Lot Gordont Lee Xjennifer De 3.50x12 - [id number] Cardiac N/A: Caro 08/21/2022 [id number] / Implanted: Qty: 1 on 01/10/2021 by Jeffery Barclay M.D., Ph.D. at [facility] [employer] / [id number] Description: pLCx Procedures Procedure Name Priority Date/Time Associated Comments Diagnosis FUNDUS PHOTOS - OU - Routine 12/25/2021 4:33 Diabetes Mellitus Results for BOTH EYES PM CDT Type 2 With this procedure Proliferative are in the Diabetic results Retinopathy With section. Macular Edema Hypoglycemic Right Eye (HCC) ANGIOGRAPHY - OU - Routine 12/25/2021 4:25 Amaurosis Fug ax Results for BOTH EYES PM CDT Migraine Headache this proce dure With Aura are in the Hemorrhage Retinal results Bilateral section. Hemorrhage Vitreous Right (HCC) OPHTHALMOLOGY IMAGE Routine 12/25/2021 4:10 Resul ts for EXAM PM CDT this procedure are in the results section. OPTICAL COHERENCE Routine 12/25/2021 3:36 Diabetes Mellitus Re sults for TOMOGRAPHY - PM CDT Type 2 With this procedure MACULA/RETINA - OU - Proliferative are in the BOTH EYES Diabetic results Retinopathy With section. Macular Edema Hypoglycemic Right Eye (HCC) Membrane Macula Epiretinal Bilateral CT HEAD NECK RAD - Routine 12/25/2021 Amaurosis Fugax Results for ANGIOGRAM WITH IV (most inpatients 11:03 AM CDT this p rocedure CONTRAST and all are in the outpatients) results section. CREATININE, POCT, B Routine 12/25/2021 Results for 10:24 AM CDT this procedure are in the results section. CREATININE, POCT, B Routine 12/25/2021 Results for 10:24 AM CDT this procedure are in the results section. C-REACTIVE PROTEIN Routine 12/25/2021 8:12 Amaurosis Fugax Res ults for (CRP), S/P AM CDT this procedure are in the results section. SEDIMENTATION RATE, Routine 12/25/2021 8:12 Amaurosis Fugax Re sults for B AM CDT this procedure are in the results section. OPHTHALMOLOGY IMAGE Routine 12/25/2021 Results for EXAM 12:00 AM CDT this procedure are in the results section. from Last 3 Months Results Fundus Photos - OU - Both [...] Code Phon e Number OPHTHALMOLOGY IMAGING EXAM Fluorescein Angiography - OU - Both Eyes [...] Herman M.D. OPHTH PHOTOGRAPHY Performing Organization Address [facility]/ZIP [facility] [place] Phon e Number OPHTHALMOLOGY IMAGING EXAM [employer]-Ophthalmology Image Exam (12/25/2021 4:10 PM CDT)Only the most recent of2 resultswithin the time period is included. Specimen (Source) Anatomical Collection Method Collection Time Re ceived Time Location / / Volume Laterality 12/25/2021 4:08 PM CDT Narrative IIMS - 12/25/2021 4:33 PM CDT This order has been created and auto-finalized to support the import of images acquired without order. The clini sakina documentation to support these images can be found on the encounter tai t produced images. Provider Not In System IMG NON RAD IMAGING PROCEDUR ES Performing Organization Address [facility] Phon e Number [id number] IIMS NA OCT-Macula/Mjskbn-IU-Hbel Eyes (12/25/2021 3:36 PM CDT) Analysis Performed At Patho logist Time Signature CMT L Microns 256 um OPHTHALMOLOGY IMAGING EXAM CMT R Microns 264 um OPHTHALMOLOGY IMAGING EXAM Specimen (Source) Anatomical Location Collection Method / Collectio n Time Received Time / Laterality Volume Narrative OPHTHALMOLOGY IMAGING EXAM - 12/26/19 22 3:47 PM CDT Right Eye Reliability was good. OCT device used [employer] Spectralis . Central macular thickness 264 um. Left Eye Reliability was good. OCT device used [employer] Spectralis . Central macular thickness 256 um. Notes Right eye: normal contour, mild erm Left eye: ??normal contour, mild erm Jose Herman M.D. OPHTH TOMOGRAPHY Performing Organization Address [facility] Phon e Number OPHTHALMOLOGY IMAGING EXAM CT Head Neck Angiogram with IV Contrast [...] normal limits. Scattered atherosclerotic involvement of bilateral ELECTRICAL SYSTEMS DESIGN ENGINEER vessels without hemodynamically significant stenosis. Reticular changes [...] overall similar to prior MR angiogram st . The basilar artery is within normal limits. Scattered atherosclerotic involvement of bilateral ELECTRICAL SYSTEMS DESIGN ENGINEER vessels without hemodynamically significant stenosis. Reticular changes [...] CT PROCEDURES Creatinine, POCT (12/25/2021 10:24 AM CDT)Only the most recent of2 resultswithin the time period is included. P athologist Signature Creatinine, 1.2 0.7 - 1.4 [...] Address City/State/ZIP Code Phon e Number [facility] [address] [place] [address] [place] [address] [place] [facility] [address] Sedimentation Rate (12/25/2021 8:12 AM CDT) Analysis Performed At Patho logist Time Signature Sedimentation 8 3 - 28 12/25/2021 DTL Rate, B mm/h 9:43 AM CDT Specimen Anatomical Collection Method Collection Time Receive d Time (Source) Location / / Volume Laterality Blood (Blood, 12/25/2021 8:12 AM 12/26/19 8:43 Venous) CDT AM CDT Sirisha López M.D., Ph.D. LAB BLOOD ADD-ON Performing Organization Address City/State/ZIP Code Phon e Number [facility] - [address] [place], [place] [address] [facility] [place] [address] [facility] [place] [address] CRP (C-Reactive Protein) (12/25/2021 8:12 AM CDT) P athologist Signature C-Reactive <3.0 <=8.0 mg/L 12/25/2021 DTL Protein (CRP), 9:36 AM CDT S Specimen Anatomical Collection Method Collection Time Receive d Time (Source) Location / / Volume Laterality Blood (Blood, 12/25/2021 8:12 AM 12/26/19 9:07 Venous) CDT AM CDT Sirisha López M.D., Ph.D. LAB BLOOD ADD-ON Performing Organization Address City/State/ZIP Code Phon e Number [facility] - [address] [place], [place] [address] [facility] [place] [address] [facility] [address] from Last 3 Months Insurance Payer Benefit Plan Subscriber ID Effective Phone Address Typ e / Group Dates MEDICARE MEDICARE A [id number] 2004-Prese [address] [place] [address] [facility] [employer] [facility] FEDERAL [id number] 2018-Pres [phone] [address] Indemnity [employer] ent [address] [place] [address] Advance Directives For more information, please contact: [phone] Latest Code Status on File Code Status Date Activated Date Inactivated Comments Full Code 01/10/2021 12:05 PM 01/11/2021 2:12 PM Question Answer Comments Full Code: Discussed Care Teams Peoplesoft Hr Developer Relationship Specialty Start Date End Date Elsewhere, Pcp PCP - General Family Medicine 01/10/21
--- OUTSIDE RECORDS SUMMARY | 2022-03-26 22:22 | XMS_ITS | Encounter Summary ---
:1935 Author Organization [facility] Address [address] [place] [address] Care Team Providers Name Role Phone Elsewhere, Pcp Primary Care Provider Unavailable Encounter Details Date Type Department Care Team Description 12/25/2021 Ancillary Procedure Department of Ophthalmology Social History [...] or relatives? How often do you attend jew or Patient refused 2021 mosque services? Do you belong to any clubs or No 12/31/2021 organizations such as jew groups, unions, fraternal or athletic groups, or [...] place to sleep or slept in a usp (including now)? Sex Assigned at Date Recorded Male 12/31/2021 3:41 PM CDT documented as of this encounter Plan of Treatment Not on filedocumented as of this encounter Procedures Procedure Name Priority Date/Time Associated Comments Diagnosis OPHTHALMOLOGY IMAGE Routine 12/25/2021 12:00 Resu lts for this EXAM AM CDT procedure are i n the results section. documented in this encounter Results Eyes Spectralis OCT-Ophthalmology Image Exam (12/25/2021 12:00 AM CDT) Specimen (Source) Anatomical Location Collection Method / Collectio n Time Received Time / Laterality Volume Narrative IIMS - 12/25/2021 3:40 PM CDT This order has been created [...] on filedocumented in this encounter Care Teams Tub Washer Relationship Specialty Start Date End Date Elsewhere, Pcp PCP - General Family Medicine 01/10/21 documented as of this encounter
--- OUTSIDE RECORDS SUMMARY | 2022-03-26 22:22 | XMS_ITS | Encounter Summary ---
:1935 Author Organization [facility] Address [address] [place] [address] Care Team Providers Name Role Phone Elsewhere, [...] or relatives? How often do you attend shinto or Patient refused 2021 rastafari services? Do you belong to any clubs or No 12/31/2021 organizations such as shinto groups, unions, fraternal or athletic groups, or [...] Associated Comments Diagnosis OPHTHALMOLOGY IMAGE Routine 12/25/2021 4:10 PM Re sults for this EXAM CDT procedure are i n the results section. documented in this encounter Results [employer]-Ophthalmology Image Exam (12/25/2021 4:10 PM CDT) Specimen (Source) Anatomical Collection Method Collection Time [...] on filedocumented in this encounter Care Teams Vegetable Loader Machine Operator Relationship Specialty Start Date End Date Elsewhere, Pcp PCP - General Family Medicine 01/10/21 documented as of this encounter
--- OUTSIDE RECORDS SUMMARY | 2022-03-26 22:23 | XMS_ITS | Encounter Summary ---
:1935 Author Organization [facility] Address [address] [place] [address] Care Team Providers Name Role Phone Elsewhere, Pcp Primary Care Provider Unavailable Encounter Details Date Type Department Care Team Description 04/08/2021 Orders Only Department of Cardiovascular René Rothman M.D. Medicine in [place], [facility] [address] [place], [place] [address] [facility] [address] [place] [address] [phone] Social History Tobacco Use Types Packs/Day Years [...] or relatives? How often do you attend bahai or Patient refused 2021 jewish services? Do you belong to any clubs or No 12/31/2021 organizations such as bahai groups, unions, fraternal or athletic groups, or [...] place to sleep or slept in a fci (including now)? Sex Assigned at Date Recorded Male 12/31/2021 3:41 PM CDT documented as of this encounter Plan of Treatment Not on filedocumented as of this encounter Visit Diagnoses Not on filedocumented in this encounter Care Teams Rail Washer Relationship Specialty Start Date End Date Elsewhere, Pcp PCP - General Family Medicine 01/10/21 documented as of this encounter
--- OUTSIDE RECORDS SUMMARY | 2022-03-26 22:23 | XMS_ITS | Encounter Summary ---
:1935 Author Organization [facility] Address [address] [place] [address] Care Team Providers Name Role Phone Elsewhere, Pcp Primary Care Provider Unavailable Encounter Details Date Type Department Care Team Description 06/05/2021 Ancillary Procedure Department of Ophthalmology Social History [...] or relatives? How often do you attend faith or Patient refused 2021 evangelical services? Do you belong to any clubs or No 12/31/2021 organizations such as faith groups, unions, fraternal or athletic groups, or [...] place to sleep or slept in a retirement (including now)? Sex Assigned at Date Recorded Male 12/31/2021 3:41 PM CDT documented as of this encounter Plan of Treatment Not on filedocumented as of this encounter Procedures Procedure Name Priority Date/Time Associated Comments Diagnosis OPHTHALMOLOGY IMAGE Routine 06/05/2021 12:00 Resu lts for this EXAM AM WELFARE CASE WORKER procedure are i n the results section. documented in this encounter Results Eyes Spectralis OCT-Ophthalmology Image Exam (06/05/2021 12:00 AM WELFARE CASE WORKER) Specimen (Source) Anatomical Location Collection Method / Collectio n Time Received Time / Laterality Volume Narrative IIMS - 06/05/2021 3:56 PM WELFARE CASE WORKER This order has been created and auto-finalized [...] on filedocumented in this encounter Care Teams Software Configuration Analyst Relationship Specialty Start Date End Date Elsewhere, Pcp PCP - General Family Medicine 01/10/21 documented as of this encounter
--- OUTSIDE RECORDS SUMMARY | 2022-03-26 22:23 | XMS_ITS | Encounter Summary ---
:1935 Author Organization [facility] Address [address] [place] [address] Care Team Providers Name Role Phone Elsewhere, [...] or relatives? How often do you attend islam or Patient refused 2021 cheondoism services? Do you belong to any clubs or No 12/31/2021 organizations such as islam groups, unions, fraternal or athletic groups, or [...] Associated Comments Diagnosis OPHTHALMOLOGY IMAGE Routine 06/05/2021 3:35 PM Re sults for this EXAM PROTEIN SPECIALIST procedure are i n the results section. documented in this encounter Results [employer]-Ophthalmology Image Exam (06/05/2021 3:35 PM PROTEIN SPECIALIST) Specimen (Source) Anatomical Collection Method Collection Time Re ceived Time Location / / Volume Laterality 06/05/2021 3:34 PM PROTEIN SPECIALIST Narrative IIMS - 06/05/2021 3:50 PM PROTEIN SPECIALIST This order has been created and auto-finalized [...] on filedocumented in this encounter Care Teams Personal Lines Advisor Relationship Specialty Start Date End Date Elsewhere, Pcp PCP - General Family Medicine 01/10/21 documented as of this encounter
--- OUTSIDE RECORDS SUMMARY | 2022-03-26 22:23 | XMS_ITS | Encounter Summary ---
:1935 Author Organization [facility] Address [address] [place] [address] Care Team Providers Name Role Phone Elsewhere, Pcp Primary Care Provider Unavailable Encounter Details Date Type Department Care Team Description 09/04/2021 Ancillary Department of Jose Herman Pennie litus Procedure Ophthalmology in [place] Type 2 With [place], [place] [address] Proliferative [address] [place], [place] [address] With Macular Edema [id number] Hypoglycemic Right Eye ([facility]) Social History Tobacco Use Types Packs/Day Years [...] or relatives? How often do you attend zoroastrian or Patient refused 2021 orthodox services? Do you belong to any clubs or No 12/31/2021 organizations such as zoroastrian groups, unions, fraternal or athletic groups, or [...] Comme nts FUNDUS PHOTOS - OU Routine 09/04/2021 4:08 PM Diabetes Mellitu s Type Results for this - BOTH EYES CDT 2 With Proliferative procedu re are in Diabetic Retinopathy the res ults With Macular Edema section. Hypoglycemic Right Eye (HCC) documented in this encounter Results Fundus Photos - OU - Both Eyes (09/04/2021 4:08 PM CDT) Specimen (Source) Anatomical Location Collection Method / Collectio n Time Received Time / Laterality Volume Narrative OPHTHALMOLOGY IMAGING EXAM - 09/05/19 4:43 PM CDT Right Eye Fundus photo type obtained is Color, Aut ofluorescence. Left Eye Fundus photo type obtained is Color, Aut ofluorescence. Notes Autofluorescence: Right eye-there are areas of hyper refle ctivity temporally secondary to previous sectorial PRP there appears to be less areas of hypo reflectivity from blood. Left eye-without pathology Color photographs, right eye: ??The cup to disc ratio is about 0.2. ??There is much less pre letter retinal blood ne ar the equator at 9:00 a.m.. ?? There is extensive PRP in the temporal r etina. Color photograph of the left eye: ??The cup to disc ratio is about 0.2. ?? The retinal periphery is without patholo gy. Jose Herman M.D. OPHTH PHOTOGRAPHY Performing Organization Address City/State/ZIP Code Phon e Number OPHTHALMOLOGY IMAGING EXAM documented in this encounter Visit Diagnoses Diagnosis Diabetes Mellitus Type 2 With Proliferat kit Diabetic Retinopathy With Macular Edema Hypoglycemic Right Eye (HCC) documented in this encounter Care Teams Automobile Carpets Molder Relationship Specialty Start Date End Date Elsewhere, Pcp PCP - General Family Medicine 01/10/21 documented as of this encounter
--- OUTSIDE RECORDS SUMMARY | 2022-03-26 22:23 | XMS_ITS | Encounter Summary ---
:1935 Author Organization [facility] Address [address] [place] [address] Care Team Providers Name Role Phone Elsewhere, Pcp Primary Care Provider Unavailable Encounter Details Date Type Department Care Team Description 05/02/2021 Hospital Encounter Department of Call, Avtar Reyes Laboratory Medicine M.DSimon Chronic Not Having and Pathology, Achieved [place], in ([facility]) [place], [place] [address] [place] [address] Social History Tobacco Use Types Packs/Day Years [...] or relatives? How often do you attend mandaen or Patient refused 2021 shinto services? Do you belong to any clubs or No 12/31/2021 organizations such as mandaen groups, unions, fraternal or athletic groups, or [...] place to sleep or slept in a chcf (including now)? Sex Assigned at Date Recorded Male 12/31/2021 3:41 PM CDT documented as of this encounter Medications at Time of Discharge Medication Sig Dispensed Refills Start Date End Date ascorbic acid, vitamin Take 1 tablet by 0 012 C, (VITAMIN C) 500 mg mouth daily. tablet atorvastatin (LIPITOR) Take 20 mg by mouth 0 05/19 20 mg tablet at bedtime. carvediloL (COREG) 25 mg Take 25 mg by mouth 2 0 03/06/2020 tablet (two) times a day with meals. DME CPAP DME Order 0 Eliquis 5 mg tablet 5 mg 2 (two) times a 0 2019 day. fluticasone propionate Administer 2 sprays 0 02/16 (FLONASE) 50 into nostril(s) as mcg/actuation nasal needed. spray omega-3 fatty acids/fish Take 1 capsule by 0 /10/2016 oil (OMEGA 3 FISH OIL mouth daily. ORAL) pantoprazole (PROTONIX) Take 1 tablet (40 mg 90 tablet 3 40 mg EC tablet total) by mouth every morning before breakfast. silver sulfADIAZINE Apply 1 application 0 019 (SILVADENE, SSD) 1 % topically as needed. cream spironolactone Take 0.5 tablets 45 tablet 3 03/05/2021 (ALDACTONE) 25 mg tablet (12.5 mg total) by mouth daily. triamcinolone (KENALOG) Apply 1 application 0 08/2020 0.1 % cream topically as needed. valsartan (DIOVAN) 320 Take 320 mg by mouth 0 10/2019 mg tablet daily. vitamin E 400 unit Take 1 capsule by 0 10/01/2011 capsule mouth daily. clopidogreL (PLAVIX) 75 Take 1 tablet (75 mg 90 tablet 1 07/10/2021 mg tablet total) by mouth daily. glimepiride (AMARYL) 2 Take 2 mg by mouth 0 11/05/2021 mg tablet daily with breakfast. spironolactone Take 12.5 mg by 0 02/11/202109/04 (ALDACTONE) 25 mg tablet mouth. documented as of this encounter Plan of Treatment Not on filedocumented as of this encounter Procedures Procedure Name Priority Date/Time Associated Comments Diagnosis RETICULOCYTES, B Routine 05/02/2021 10:06 Leukemia Results for this AM CHILDREN'S SERVICE WORKER Lymphocytic Chronic procedur e are in Not Having Achieved the resu lts Remission (HCC) section. CBC WITH DIFFERENTIAL, B Routine 05/02/2021 10:06 Leukemia Results for this AM CHILDREN'S SERVICE WORKER Lymphocytic Chronic procedur e are in Not Having Achieved the resu lts Remission (HCC) section. [id number] 12MG [id number] Routine 05/02/2021 10:05 Leukemia Res ults for this AM CHILDREN'S SERVICE WORKER Lymphocytic Chronic procedur e are in Not Having Achieved the resu lts Remission (HCC) section. ASPARTATE Routine 05/02/2021 10:05 Leukemia Results for this AMINOTRANSFERASE (AST), AM CHILDREN'S SERVICE WORKER Lymphocytic Chron ic procedure are in S/P Not Having Achieved the resu lts Remission (HCC) section. ALKALINE PHOSPHATASE, Routine 05/02/2021 10:05 Leukemia Re sults for this S/P AM CHILDREN'S SERVICE WORKER Lymphocytic Chronic procedur e are in Not Having Achieved the resu lts Remission (HCC) section. LACTATE DEHYDROGENASE Routine 05/02/2021 10:05 Leukemia Re sults for this (LD), S AM CHILDREN'S SERVICE WORKER Lymphocytic Chronic procedur e are in Not Having Achieved the resu lts Remission (HCC) section. CREATININE WITH EGFR, Routine 05/02/2021 10:05 Leukemia Re sults for this S/P AM CHILDREN'S SERVICE WORKER Lymphocytic Chronic procedur e are in Not Having Achieved the resu lts Remission (HCC) section. BILIRUBIN, TOT, S/P Routine 05/02/2021 10:05 Leukemia Resu lts for this AM CHILDREN'S SERVICE WORKER Lymphocytic Chronic procedur e are in Not Having Achieved the resu lts Remission (HCC) section. documented in this encounter Results Reticulocytes (05/02/2021 10:06 AM CHILDREN'S SERVICE WORKER) P athologist Signature Reticulocytes, B 1.42 0.60 - 05/02/2021 DTL 2.71 % 10:37 AM CHILDREN'S SERVICE WORKER Absolute 55.8 30.4 - 05/02/2021 DTL Reticulocyte 110.9 10:37 AM CHILDREN'S SERVICE WORKER x10(9)/L Specimen Anatomical Collection Method Collection Time Receive d Time (Source) Location / / Volume Laterality Blood (Blood, 05/02/2021 10:06 05/02/2021 Venous) AM CHILDREN'S SERVICE WORKER 10:30 AM CHILDREN'S SERVICE WORKER Meliton Gordon M.D. LAB BLOOD ADD-ON Performing Organization Address City/State/ZIP Code Phon e Number [facility] - [address] [place], [place] [address] [facility] [place] [address] [facility] [place] [address] (ABNORMAL) CBC with Differential, Blood (05/02/2021 10:06 AM CHILDREN'S SERVICE WORKER) [facility] Method Time Signature Hemoglobin 11.2 (L) 13.2 - 05/02/2021 DTL 16.6 g/dL 10:37 AM CHILDREN'S SERVICE WORKER Hematocrit 35.9 (L) 38.3 - 05/02/2021 DTL 48.6 % 10:37 AM CHILDREN'S SERVICE WORKER Erythrocytes 3.93 (L) 4.35 - 05/02/2021 DTL 5.65 10:37 AM CHILDREN'S SERVICE WORKER x10(12)/L MCV 91.3 78.2 - 05/02/2021 DTL 97.9 fL 10:37 AM CHILDREN'S SERVICE WORKER RBC Distrib Width 15.0 (H) 11.8 - 05/02/2021 DTL 14.5 % 10:37 AM CHILDREN'S SERVICE WORKER Platelet Count 185 135 - 317 05/02/2021 DTL x10(9)/L 10:37 AM CHILDREN'S SERVICE WORKER Leukocytes 39.1 (H) 3.4 - 9.6 05/02/2021 DTL x10(9)/L 11:24 AM CHILDREN'S SERVICE WORKER Comment: Results confirmed by smear. Neutrophils 7.02 (H) 1.56 - 6.45 x10(9)/L 05/02/2021 11:24 AM CHILDREN'S SERVICE WORKER DTL Comment: Rechecked Lymphocytes 30.64 (H) 0.95 - 3.07 x10(9)/L 05/02/2021 11:24 AM CHILDREN'S SERVICE WORKER DTL Monocytes 1.15 (H) 0.26 - 0.81 x10(9)/L 05/02/2021 11:24 AM CHILDREN'S SERVICE WORKER DTL Eosinophils 0.22 0.03 - 0.48 x10(9)/L 05/02/2021 11:24 AM CHILDREN'S SERVICE WORKER DTL Basophils 0.06 0.01 - 0.08 x10(9)/L 05/02/2021 11:24 AM CHILDREN'S SERVICE WORKER DTL Specimen Anatomical Collection Method Collection Time Receive d Time (Source) Location / / Volume Laterality Blood (Blood, 05/02/2021 10:06 05/02/2021 Venous) AM CHILDREN'S SERVICE WORKER 10:30 AM CHILDREN'S SERVICE WORKER Meliton Gordon M.D. LAB BLOOD ADD-ON Performing Organization Address City/State/ZIP Code Phon e Number [facility] - [address] [place], [place] [address] [facility] [place] [address] [facility] [place] 200 [facility] [id number] 12MG [id number] (05/02/2021 10:05 AM CHILDREN'S SERVICE WORKER) Analysis Performed [place] [id number] Collected DEFAULT 05/02/2021 HSS A N 01 10:05 AM [place] [address] Collected DEFAULT 05/02/2021 HSS A N 02 10:05 [place] [address] Collected DEFAULT 05/02/2021 HSS A N 03 10:05 [place] [address] Collected DEFAULT 05/02/2021 HSS A N 04 10:05 [place] [address] Collected DEFAULT 05/02/2021 HSS A N 05 10:05 AM CHILDREN'S SERVICE WORKER [place] LE [address] Collected DEFAULT 05/02/2021 HSS A N 08 10:06 [place] [address] Collected DEFAULT 05/02/2021 HSS A N 04 10:05 AM CHILDREN'S SERVICE WORKER Specimen Anatomical Collection Method Collection Time Receive d Time (Source) Location / / Volume Laterality Blood (Blood, 05/02/2021 10:05 05/02/2021 Venous) AM CHILDREN'S SERVICE WORKER 10:05 AM CHILDREN'S SERVICE WORKER Narrative [facility] - 05/02/2021 10:06 AM CHILDREN'S SERVICE WORKER Specimen Information: Specimen ID: [id number] Specimen Type: Blood Specimen Collection Start Date: 10:05 AM Specimen Received Date: 05/02/2021 10:0 5 AM Specimen ID: [id number] Specimen Type: Blood Specimen Collection Start Date: 10:05 AM Specimen Received Date: 05/02/2021 10:0 5 AM Specimen ID: [id number] Specimen Type: Blood Specimen Collection Start Date: 10:05 AM Specimen Received Date: 05/02/2021 10:0 5 AM Specimen ID: [id number] Specimen Type: Blood Specimen Collection Start Date: 10:05 AM Specimen Received Date: 05/02/2021 10:0 5 AM Specimen ID: [id number] Specimen Type: Blood Specimen Collection Start Date: 10:05 AM Specimen Received Date: 05/02/2021 10:0 5 AM Specimen ID: [id number] Specimen Type: Blood Specimen Collection Start Date: 10:06 AM Specimen Received Date: 05/02/2021 10:0 6 AM Specimen ID: [id number] Specimen Type: Blood Specimen Collection Start Date: 10:05 AM Specimen Received Date: 05/02/2021 10:0 5 AM Fidel Rose M.D. LAB BLOOD ADD-ON Performing Organization Address City/[facility] Phon e Number [facility] - [address] LD (Lactate Dehydrogenase) (05/02/2021 10:05 AM CHILDREN'S SERVICE WORKER) Analysis Performed At Patho logist Time Signature Lactate 172 122 - 222 05/02/2021 DTL Dehydrogenase U/L 11:55 AM CHILDREN'S SERVICE WORKER (LD), S Specimen Anatomical Collection Method Collection Time Receive d Time (Source) Location / / Volume Laterality Blood (Blood, 05/02/2021 10:05 05/02/2021 Venous) AM CHILDREN'S SERVICE WORKER 11:04 AM CHILDREN'S SERVICE WORKER Meliton Gordon M.D. LAB BLOOD NON ADD-ON Performing Organization Address City/[facility] Phon e Number [facility] - [address] DTL [address] (ABNORMAL) Creatinine with Estimated GFR (05/02/2021 10:05 AM CHILDREN'S SERVICE WORKER) P athologist Signature Creatinine 1.15 0.74 - 05/02/2021 DTL 1.35 mg/dL 11:55 AM CHILDREN'S SERVICE WORKER eGFR-Non 58 (L) >=60 05/02/2021 DTL Black/ mL/min/BSA 11:55 AM CHILDREN'S SERVICE WORKER Lao Comment: ----ADDITIONAL INFORMATION---- Estimated GFR calculated using the 2009 CKD_EPI creatinine equation. eGFR-Black/ 67 >=60 mL/min/BSA 2020 11:55 AM CHILDREN'S SERVICE WORKER DTL Comment: ----ADDITIONAL INFORMATION---- Estimated GFR calculated using the 2009 CKD_EPI creatinine equation. Specimen Anatomical Collection Method Collection Time Receive d Time (Source) Location / / Volume Laterality Blood (Blood, 05/02/2021 10:05 05/02/2021 Venous) AM CHILDREN'S SERVICE WORKER 11:04 AM CHILDREN'S SERVICE WORKER Meliton Gordon M.D. LAB BLOOD ADD-ON Performing Organization Address City/State/ZIP Code Phon e Number [facility] - [address] [place], [place] [address] [place] [address] [facility] [place] [address] Bilirubin, Total (05/02/2021 10:05 AM CHILDREN'S SERVICE WORKER) P athologist Signature Bilirubin, 0.4 <=1.2 mg/dL 05/02/2021 DTL Total, S 11:55 AM CHILDREN'S SERVICE WORKER Specimen Anatomical Collection Method Collection Time Receive d Time (Source) Location / / Volume Laterality Blood (Blood, 05/02/2021 10:05 05/02/2021 Venous) AM CHILDREN'S SERVICE WORKER 11:04 AM CHILDREN'S SERVICE WORKER Meliton Gordon M.D. LAB BLOOD ADD-ON Performing Organization Address City/State/ZIP Code Phon e Number [facility] - [address] [place], [place] [address] [facility] [place] [address] [facility] [place] [address] AST (Aspartate Aminotransferase) (05/02/2021 10:05 AM CHILDREN'S SERVICE WORKER) Patholo gist Method Time Signature Aspartate 19 8 - 48 05/02/2021 DTL Aminotransferase U/L 11:55 AM CHILDREN'S SERVICE WORKER (AST), S Specimen Anatomical Collection Method Collection Time Receive d Time (Source) Location / / Volume Laterality Blood (Blood, 05/02/2021 10:05 05/02/2021 Venous) AM CHILDREN'S SERVICE WORKER 11:04 AM CHILDREN'S SERVICE WORKER Meliton Gordon M.D. LAB BLOOD ADD-ON Performing Organization Address City/State/ZIP Code Phon e Number [facility] - [address] [place], [place] [address] [facility] [place] [address] [facility] [address] Alkaline Phosphatase (05/02/2021 10:05 AM CHILDREN'S SERVICE WORKER) P athologist Signature Alkaline 100 40 - 129 05/02/2021 DTL Phosphatase, S U/L 11:55 AM CHILDREN'S SERVICE WORKER Specimen Anatomical Collection Method Collection Time Receive d Time (Source) Location / / Volume Laterality Blood (Blood, 05/02/2021 10:05 05/02/2021 Venous) AM CHILDREN'S SERVICE WORKER 11:04 AM CHILDREN'S SERVICE WORKER Meliton Gordon M.D. 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
--- OUTSIDE RECORDS SUMMARY | 2022-03-26 22:23 | XMS_ITS | Encounter Summary ---
:1935 Author Organization [facility] Address [address] [place] [address] Care Team Providers Name Role Phone Elsewhere, Pcp Primary Care Provider Unavailable Reason for Referral Outpatient (Routine) - Closed Specialty Diagnoses / Procedures Referred By Contact Refer red To Contact Ophthalmology Jose Herman M. D. [address] [address] Referral ID Status Reason Start Date Expiration Date Visits Requ ested Visits Authorized [id number] Closed 06/05/2021 06/05/2022 1 1 Scheduling Instructions 3 months with OPTOS color photographs 3 months with OPTOS color photographs ING ROOM OPERATOR Encounter Details Date Type Department Care Team Description 06/05/2021 Orders Only Department of Antonio Schilling Diabetes Mellitus Type Ophthalmology in V. 2 With Proliferative [place], [place] [address] [facility] Diabetic Retinopathy [address] [place], [place] [address] Hypoglycemic Right Eye [id number] (HCC) (Primary Dx) Social History Tobacco Use [...] or relatives? How often do you attend sikh or Patient refused 2021 caodaism services? Do you belong to any clubs or No 12/31/2021 organizations such as sikh groups, unions, fraREH or athletic groups, or school groups? 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
--- OUTSIDE RECORDS SUMMARY | 2022-03-26 22:23 | XMS_ITS | Encounter Summary ---
:1935 Author Organization [facility] Address [address] [place] [address] Care Team Providers Name Role Phone Elsewhere, Pcp Primary Care Provider Unavailable Encounter Details Date Type Department Care Team Description 04/08/2021 Orders Only [facility] - Arlyn guardado Elsewhere, Pcp [address] , [address] [facility] [place] [address] Social History Tobacco Use Types Packs/Day Years [...] or relatives? How often do you attend jain or Patient refused 2021 evangelical services? Do you belong to any clubs or No 12/31/2021 organizations such as jain groups, unions, fraternal or athletic groups, or [...] Diagnoses Not on filedocumented in this encounter Additional Health Concerns Infection Onset Date Last Indicated Resolved Time COVID19 Pending 04/26/2021 04/26/2021 04/26/2021 8:55 PM TOY MAKER documented as of this encounter Care Teams Fringing Machine Operator Relationship Specialty Start Date End Date Elsewhere, Pcp PCP - General Family Medicine 01/10/21 documented as of this encounter
--- OUTSIDE RECORDS SUMMARY | 2022-03-26 22:23 | XMS_ITS | Encounter Summary ---
:1935 Author Organization [facility] Address [address] [place] [address] Care Team Providers Name Role Phone Elsewhere, Pcp Primary Care Provider Unavailable Encounter Details Date Type Department Care Team Description 06/05/2021 Ancillary Department of Jose Herman Pennie litus Procedure Ophthalmology in [place] Type 2 With [place], [place] [address] Proliferative [address] [place], [place] [address] With Macular Edema [id number] Hypoglycemic Right Eye ([facility]) Social History Tobacco Use Types Packs/Day Years [...] or relatives? How often do you attend gnosticism or Patient refused 2021 faith services? Do you belong to any clubs or No 12/31/2021 organizations such as gnosticism groups, unions, fraternal or athletic groups, or [...] Associated Diagnosis Comme nts OPTICAL COHERENCE Routine 06/05/2021 3:53 PM Diabetes Mellitus Type Results for this TOMOGRAPHY - POWDER GUARD 2 With Proliferative procedu re are in MACULA/RETINA - OU Diabetic Retinopathy t he results - BOTH EYES With Macular Edema section. Hypoglycemic Right Eye (HCC) documented in this encounter Results Optical Coherence Tomography (OCT) - Macula/Retina - OU - Both Eyes (06/05/2021 3:53 PM POWDER GUARD) Analysis Performed At Patho logist Time Signature CMT L Microns 258 um OPHTHALMOLOGY IMAGING EXAM CMT R Microns 260 um OPHTHALMOLOGY IMAGING EXAM Specimen (Source) Anatomical Location Collection Method / Collectio n Time Received Time / Laterality Volume Narrative OPHTHALMOLOGY IMAGING EXAM - 06/05/19 22 4:09 PM POWDER GUARD Right Eye Reliability was good. OCT device used Inform Direct Spectralis . Central macular thickness 260 um. Left Eye Reliability was good. OCT device used wa s Spectralis . Central macular thickness 258 um. Notes right eye: normal contour, no irf or srf left eye: normal contour, stable Jose Herman M.D. 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
--- OUTSIDE RECORDS SUMMARY | 2022-03-26 22:23 | XMS_ITS | Encounter Summary ---
:1935 Author Organization [facility] Address [address] [place] [address] Care Team Providers Name Role Phone Elsewhere, Pcp Primary Care Provider Unavailable Encounter Details Date Type Department Care Team Description 09/04/2021 Ancillary Procedure Department of Ophthalmology Social History [...] or relatives? How often do you attend yazidism or Patient refused 2021 hoahaoism services? Do you belong to any clubs or No 12/31/2021 organizations such as yazidism groups, unions, fraternal or athletic groups, or [...] Date/Time Associated Comments Diagnosis OPHTHALMOLOGY IMAGE Routine 09/04/2021 4:00 PM Re sults for this EXAM CDT procedure are i n the results section. documented in this encounter Results [employer]-Ophthalmology Image Exam (09/04/2021 4:00 PM CDT) Specimen (Source) Anatomical Collection Method Collection Time Re ceived Time Location / / Volume Laterality 09/04/2021 3:57 PM CDT Narrative IIMS - 09/04/2021 4:18 PM CDT This order has been created and auto-finalized to support the import of images acquired without order. The clini sakina documentation to support these images can be found on the encounter tai t produced images. Provider Not In System IMG NON RAD IMAGING PROCEDUR ES Performing Organization Address City/State/ZIP Code Phon e Number IIIA IIIA NA documented in this encounter Visit Diagnoses Not on filedocumented in this encounter Care Teams Computer Numerical Control Programmer Relationship Specialty Start Date End Date Elsewhere, Pcp PCP - General Family Medicine 01/10/21 documented as of this encounter
--- OUTSIDE RECORDS SUMMARY | 2022-03-26 22:23 | XMS_ITS | Encounter Summary ---
:1935 Author Organization [facility] Address [address] [place] [address] Care Team Providers Name Role Phone Elsewhere, Pcp Primary Care Provider Unavailable Reason for Visit Outpatient (Routine) - Closed Specialty Diagnoses / Procedures Referred By Contact Refer red To Contact Otorhinolaryngology Diagnoses Hoarseness René Robert M.D. [facility] [address] [place] [phone] Referral ID Status Reason Start Date Expiration Date Visits Requ ested Visits Authorized [id number] Closed 02/11/2021 02/11/2022 1 1 Encounter Details Date Type Department Care Team Description 04/29/2021 Comprehensive Visit Department of Perez, Chronic Cough (Primary Dx); Otorhinolaryngology in [place], [place] P.A.-C., [address] [place] [phone] M.P.H. [phone] [place] [phone] Social History Tobacco Use Types Packs/Day Years [...] you attend yazidism or Patient refused 2021 rastafari services? Do you belong to any clubs or No 12/31/2021 organizations such as yazidism groups, unions, [employer]U [employer] or athletic groups, or school groups? How [...] place to sleep or slept in a nursing home (including now)? Sex Assigned at Date Recorded Male 12/31/2021 3:41 PM CDT documented as of this encounter Consult Notes Erik Perez P.A.-C., Cricket, M.P.H. - 04/29/2021 10:00 AM CST CHIEF COMPLAINT/PURPOSE OF VISIT: Cough Referring Provider René Robert M.D. HISTORY OF PRESENT ILLNESS: Mr. Garcia is a 85 y.o. male with a past history of atrial fibrillation, HTN, GERD, T2DM, CLL, HLD, ROSA ISELA, migraines, CAD, aortic valve stenosis, CKD, s/p coronary stent placement, and sickle cell disease who presents to ENT for evaluation of cough. [facility] Please see her excellent chart note for details. He describes a buildup of thick phlegm in his mid chest level that he will cough up multiple times per day. He also describes a tickle in his chest and throat leading to this cough. 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 He denies any drainage from this fistula into his oral or nasal cavities. He is without facial pain rhinorrhea, itching, sneezing, or anosmia. No oral pain, taste changes/intolerances, sore throat, dysphagia, or odynophagia. He endorses very rare aspiration of thin liquids. He has not been hospitalized for any pneumoni as. He is without hemoptysis or hematemesis. He is treated for reflux with Protonix 40 mg once daily. ROS: Ten system review of systems performed and reviewed with patient. Pertinent ROS noted in HPI. The following portions of the patient's history were reviewed and updated as appropriate: allergies,current medications, family history, medical history, social history, surgical history and problem list. DATA: I personally reviewed the video from the videostrobolaryngoscopy performed earlier today. There is no evidence abnormal drainage from the paranasal sinuses into the nose or of any evidence of abnormal postnasal drainage. There are no signs of upper airway inflammation. No signs of reflux. No lesions or neuromuscular abnormality. ASSESSMENT/PLAN: #1 Hoarseness #2 Chronic Cough I discussed my findings with Mr. Garcia. We reviewed the video from his scoping procedure earlier today which shows no evidence of rhinosinusitis or abnormal postnasal drainage contributing to hiscough. His GERD appears to be well controlled with Protonix 40 mg once daily. He was reassured that there are no upper airway lesions or inflammation contributing to cough. His description of the buildup of phlegm in his mid chest level would suggest a non-ENT etiology for his cough. We reviewed his discussion with NAN Marx regarding his hoarseness earlier today. He is not interested in voice therapy at this time and was happy with reassurance that there are no sinister findings contributing to his intermittent dysphonia. ADMINISTRATIVE BILLING I personally spent a total of [15] minutes face to face with the patient and >50% in counseling and discussion and/or coordination of care as described above. CUTTER documented in this encounter Plan of Treatment Not on filedocumented as of this encounter Visit Diagnoses Diagnosis Chronic Cough - Primary Hoarseness documented in this encounter Care Teams City Secretary Relationship Specialty Start Date End Date Elsewhere, Pcp PCP - General Family Medicine 01/10/21 documented as of this encounter
--- OUTSIDE RECORDS SUMMARY | 2022-03-26 22:23 | XMS_ITS | Encounter Summary ---
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 How often do you attend yazdanism or Patient refused 2021 druze services? Do you belong to any clubs or No 12/31/2021 organizations such as yazdanism groups, unions, fraternal or athletic groups, or [...] mg by mouth. 0 0 05/25/2021 tablet omega-3 fatty acids/fish Take 1 capsule [...] Procedure Name Priority Date/Time Associated Comments Diagnosis SPSMA RESULT Routine 11/05/2021 10:53 Leukemia Results for this AM CDT Lymphocytic Chronic procedur e are in Not Having Achieved the resu lts Remission (HCC) section. Anemia RETICULOCYTES, B Routine 11/05/2021 10:53 Leukemia Results for this AM CDT Lymphocytic Chronic procedur e are in Not Having Achieved the resu lts Remission (HCC) section. Anemia CBC WITH DIFFERENTIAL, B Routine 11/05/2021 10:53 Leukemia Results for this AM CDT Lymphocytic Chronic procedur e are in Not Having Achieved the resu lts Remission (HCC) section. Anemia NM ORGANIC ACID 1 QUANT Routine 11/05/2021 10:52 Results for this 2 AM CDT procedure are i n the results section. PERNICIOUS ANEMIA Routine 11/05/2021 10:52 Leukemia Result s for this CASCADE, S AM CDT Lymphocytic Chronic procedur e are in Not Having Achieved the resu lts Remission (HCC) section. Anemia DIRECT ANTIGLOBULIN TEST Routine 11/05/2021 10:52 Leukemia Results for this (POLYSPECIFIC) AM CDT Lymphocytic Chronic proced ure are in Not Having Achieved the resu lts Remission (HCC) section. Anemia ASPARTATE Routine 11/05/2021 10:52 Leukemia Results for this AMINOTRANSFERASE (AST), AM CDT Lymphocytic Chron ic procedure are in S/P Not Having Achieved the resu lts Remission (HCC) section. Anemia ALKALINE PHOSPHATASE, Routine 11/05/2021 10:52 Leukemia Re sults for this S/P AM CDT Lymphocytic Chronic procedur e are in Not Having Achieved the resu lts Remission (HCC) section. Anemia LACTATE DEHYDROGENASE Routine 11/05/2021 10:52 Leukemia Re sults for this (LD), S AM CDT Lymphocytic Chronic procedur e are in Not Having Achieved the resu lts Remission (HCC) section. Anemia IMMUNOGLOBULIN G (IGG), Routine 11/05/2021 10:52 Leukemia Results for this S AM CDT Lymphocytic Chronic procedur e are in Not Having Achieved the resu lts Remission (HCC) section. Anemia FERRITIN, S Routine 11/05/2021 10:52 Leukemia Results for this AM CDT Lymphocytic Chronic procedur e are in Not Having Achieved the resu lts Remission (HCC) section. Anemia CREATININE WITH EGFR, Routine 11/05/2021 10:52 Leukemia Re sults for this S/P AM CDT Lymphocytic Chronic procedur e are in Not Having Achieved the resu lts Remission (HCC) section. Anemia BILIRUBIN, TOT, S/P Routine 11/05/2021 10:52 Leukemia Resu lts for this AM CDT Lymphocytic Chronic procedur e are in Not Having Achieved the resu lts Remission (HCC) section. Anemia documented in this encounter Results (ABNORMAL) SPSMA Result (11/05/2021 10:53 AM CDT) [facility] gist Method Time Signature Neutrophilic Segs 16 (L) 50 - 75 % 11/05/2021 DHPM and Bands 2:12 PM CDT Lymphocytes 81 (H) 18 - 42 % 11/05/2021 DHPM 2:12 PM CDT Monocytes 3 2 - 11 % 11/05/2021 DHPM 2:12 PM CDT Fragile Cells Slight 11/05/2021 DHPM 2:12 PM CDT Manual Absolute 7.78 (H) 1.56 - 11/05/2021 [facility] Neutrophil Count 6.45 2:12 PM CDT x10(9)/L Comment: ----ADDITIONAL INFORMATION---- The manual absolute neutrophil count is derived from a manual differential count and therefore is not exactly comparable to the automated absolute celso trophil count. Interpretation SeeComment 11/05/2021 2:12 PM CDT D HPM Comment: The blood smear findings are consistent with the previous diagnosis of chronic lymphocytic leukemia. Reviewed by: Tech 11/05/2021 2:12 PM CDT [facility] Specimen Anatomical Collection Method Collection Time Receive d Time (Source) Location / / Volume Laterality Blood (Blood, 11/05/2021 10:53 11/05/2021 Venous) AM CDT 11:36 AM CDT Meliton Gordon M.D. LAB BLOOD ADD-ON Performing Organization Address City/State/ZIP Code Phon e Number [facility] - [address] [place], [place] [address] [place] [address] Laboratories-[facility] [address] Reticulocytes (11/05/2021 10:53 AM CDT) athologist Signature Reticulocytes, B 1.34 0.60 - 11/05/2021 DTL 2.71 % 12:26 PM CDT Absolute 57.2 30.4 - 11/05/2021 DTL Reticulocyte 110.9 12:26 PM CDT x10(9)/L Specimen Anatomical Collection Method Collection Time Receive d Time (Source) Location / / Volume Laterality Blood (Blood, 11/05/2021 10:53 11/05/2021 Venous) AM CDT 11:36 AM CDT Mleiton Gordon M.D. LAB BLOOD ADD-ON Performing Organization Address City/[facility] Code Phon e Number [facility] - 200 [place], [place] [address] [facility] [place] [address] [facility] 200 [facility] (ABNORMAL) CBC with Differential, Blood (11/05/2021 10:53 AM CDT) [facility] Method Time Signature Hemoglobin 12.4 (L) 13.2 - 11/05/2021 DTL 16.6 g/dL 12:26 PM CDT Hematocrit 38.1 (L) 38.3 - 11/05/2021 DTL 48.6 % 12:26 PM CDT Erythrocytes 4.27 (L) 4.35 - 11/05/2021 DTL 5.65 12:26 PM CDT x10(12)/L MCV 89.2 78.2 - 11/05/2021 DTL 97.9 fL 12:26 PM CDT RBC Distrib Width 15.9 (H) 11.8 - 11/05/2021 DTL 14.5 % 12:26 PM CDT Platelet Count 174 135 - 317 11/05/2021 DTL x10(9)/L 12:26 PM CDT Leukocytes 48.6 (H) 3.4 - 9.6 11/05/2021 DTL x10(9)/L 1:17 PM CDT Specimen Anatomical Collection Method Collection Time Receive d Time (Source) Location / / Volume Laterality Blood (Blood, 11/05/2021 10:53 11/05/2021 Venous) AM CDT 11:36 AM CDT Meliton Gordon M.D. LAB BLOOD ADD-ON Performing Organization Address City/[facility]/ZIP Code Phon e Number [facility] - 200 [place] [id number] [address] [place] [address] [address] Methylmalonic Acid (MMA), Quantitative, Serum (11/05/2021 10:52 AM CDT) Analysis Performed At Patho logist Time Signature Methylmalonic 0.16 <=0.40 11/07/2021 DTL Acid, QN, S nmol/mL 8:05 AM CDT Comment: No cellular B-12 deficiency. ----ADDITIONAL INFORMATION---- This test was developed and its performa nce characteristics determined by [facility] in a manner consistent with CLIA requirements. This test has not been cleared or approved by the [place] Is[place] d and Drug Administration. Specimen Anatomical Collection Method Collection Time Receive d Time (Source) Location / / Volume Laterality Blood 11/05/2021 10:52 11/05/2021 4:41 AM CDT PM CDT Meliton Gordon M.D. LAB BLOOD NON ADD-ON Performing Organization Address City/State/ZIP Code Phon e Number [facility] - [address] DTL [address] Direct Antiglobulin Test (Poly) (11/05/2021 10:52 AM CDT) [facility] gist Method Time Signature Direct Negative Negative 11/05/2021 ETRM Antiglobulin 12:41 PM CDT Test, Polyspecific Specimen Anatomical Collection Method Collection Time Receive d Time (Source) Location / / Volume Laterality Blood (Blood, 11/05/2021 10:52 11/05/2021 Venous) AM CDT 11:44 AM CDT Meliton Gordon M.D. LAB BLOOD BANK TEST ORDERABL ES Performing Organization Address City/[facility]/ZIP [facility] Phon e Number [facility] - [address] ETRM [address] Pernicious Anemia [place] (11/05/2021 10:52 AM CDT) P athologist Signature Vitamin B12 311 180 - 914 11/05/2021 SDSC Assay, S ng/L 4:41 PM CDT Comment: B-12 <400; MMA test was perform ed. Specimen Anatomical Collection Method Collection Time Receive d Time (Source) Location / / Volume Laterality Blood (Blood, 11/05/2021 10:52 11/05/2021 3:31 Venous) AM CDT PM CDT Meliton Gordon M.D. LAB BLOOD NON ADD-ON Performing Organization Address City/[facility]/ZIP Code Phon e Number [facility] [address] [place] [address] [address] [facility] [place] [address] Laboratory Medicine and Pathology [address] [place] [address] Dr. LOYA Ferritin (11/05/2021 10:52 AM CDT) P athologist Signature Ferritin, S 57 24 - 336 11/05/2021 DTL mcg/L 1:55 PM CDT Specimen Anatomical Collection Method Collection Time Receive d Time (Source) Location / / Volume Laterality Blood (Blood, 11/05/2021 10:52 11/05/2021 Venous) AM CDT 12:15 PM CDT Meliton Gordon M.D. LAB BLOOD ADD-ON Performing Organization Address City/[facility]/ZIP Code Phon e Number [facility] - [address] [place], [place] [address] [facility] [place] [address] Laboratories-[facility] [address] Immunoglobulin G (IgG) (11/05/2021 10:52 AM CDT) Patholo gist Method Time Signature Immunoglobulin G 892 037 1590 11/05/2021 [facility] (IgG), S mg/dL 4:54 PM CDT Specimen Anatomical Collection Method Collection Time Receive d Time (Source) Location / / Volume Laterality Blood (Blood, 11/05/2021 10:52 11/05/2021 4:27 Venous) AM CDT PM CDT Meliton Gordon M.D. LAB BLOOD ADD-ON Performing Organization Address City/State/ZIP Code Phon e Number [facility] [address] [place] [phone] [facility] [place] [address] Laboratory Medicine and Pathology [address] [place] [address] Dr. LOYA LD (Lactate Dehydrogenase) (11/05/2021 10:52 AM CDT) Analysis Performed At Patho logist Time Signature Lactate 186 122 - 222 11/05/2021 DTL Dehydrogenase U/L 12:38 PM CDT (LD), S Specimen Anatomical Collection Method Collection Time Receive d Time (Source) Location / / Volume Laterality Blood (Blood, 11/05/2021 10:52 11/05/2021 Venous) AM CDT 12:17 PM CDT Meliton Gordon M.D. LAB BLOOD NON ADD-ON Performing Organization Address City/State/[facility] Phon e Number [facility] - [address] [place], [place] [address] [facility] [place] [address] Laboratories-[place] [address] [facility] Creatinine with Estimated GFR (11/05/2021 10:52 AM CDT) athologist Signature Creatinine 0.98 0.74 - 11/05/2021 DTL 1.35 mg/dL 12:38 PM CDT eGFR-Non 70 >=60 11/05/2021 DTL Black/ mL/min/BSA 12:38 PM CDT British Comment: ----ADDITIONAL INFORMATION---- Estimated GFR calculated using the 2009 CKD_EPI creatinine equation. eGFR-Black/ 81 >=60 mL/min/BSA 2021 12:38 PM CDT DTL Comment: ----ADDITIONAL INFORMATION---- Estimated GFR calculated using the 2009 CKD_EPI creatinine equation. Specimen Anatomical Collection Method Collection Time Receive d Time (Source) Location / / Volume Laterality Blood (Blood, 11/05/2021 10:52 11/05/2021 Venous) AM CDT 12:17 PM CDT Meliton Gordon M.D. LAB BLOOD ADD-ON Performing Organization Address City/State/[facility] Phon e Number [facility] - [address] [place], [place] [address] [facility] [place] [address] Laboratories-[address] Bilirubin, Total (11/05/2021 10:52 AM CDT) athologist Signature Bilirubin, 0.7 <=1.2 mg/dL 11/05/2021 DTL Total, S 12:38 PM CDT Specimen Anatomical Collection Method Collection Time Receive d Time (Source) Location / / Volume Laterality Blood (Blood, 11/05/2021 10:52 11/05/2021 Venous) AM CDT 12:17 PM CDT Meliton Gordon M.D. LAB BLOOD ADD-ON Performing Organization Address City/[facility]/ZIP [facility] Phon e Number [facility] - [address] [place] [address] [facility] [facility] AST (Aspartate Aminotransferase) (11/05/2021 10:52 AM CDT) Patholo gist Method Time Signature Aspartate 20 8 - 48 11/05/2021 DTL Aminotransferase U/L 12:38 PM CDT (AST), S Specimen Anatomical Collection Method Collection Time Receive d Time (Source) Location / / Volume Laterality Blood (Blood, 11/05/2021 10:52 11/05/2021 Venous) AM CDT 12:17 PM CDT Meliton Gordon M.D. LAB BLOOD ADD-ON Performing Organization Address City/[facility]/ZIP Code Phon e Number [facility] - [address] [place] [address] [facility] Alkaline Phosphatase (11/05/2021 10:52 AM CDT) P athologist Signature Alkaline 118 40 - 129 11/05/2021 DTL Phosphatase, S U/L 12:38 PM CDT Specimen Anatomical Collection Method Collection Time Receive d Time (Source) Location / / Volume Laterality Blood (Blood, 11/05/2021 10:52 11/05/2021 Venous) AM CDT 12:17 PM CDT Meliton Gordon M.D. 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
--- OUTSIDE RECORDS SUMMARY | 2022-03-26 22:23 | XMS_ITS | Encounter Summary ---
:1935 Author Organization [facility] Address [address] [place] [address] Care Team Providers Name Role Phone Elsewhere, Pcp Primary Care Provider Unavailable Reason for Referral Outpatient (Routine) - Closed Specialty Diagnoses / Procedures Referred By Contact Refer red To Contact Ophthalmology Jose Herman M. D. [address] [phone] Referral ID Status Reason Start Date Expiration Date Visits Requ ested Visits Authorized [id number] Closed 09/04/2021 09/04/2022 1 1 Scheduling Instructions 4 months with a dilated fundus exam and an OCT in both eyes Reason for Visit Reason Comments Dry Eye Outpatient (Routine) - Closed Specialty Diagnoses / Procedures Referred By Contact Refer red To Contact Ophthalmology Jose Herman M. D. 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 Hemorrhage Retinal Bilateral; [place], [place] [address] Amaurosis [place]ug[place]; [address] [place], [place] Hemorrhage Vitreous Right (H CC) [place] [phone] Social History Tobacco Use Types Packs/Day Years [...] or relatives? How often do you attend baptism or Patient refused 2021 scientology services? Do you belong to any clubs or No 12/31/2021 organizations such as baptism groups, unions, fraternal or athletic groups, or [...] encounter Progress Notes Jose Herman M.D. - 09/04/2021 3:45 PM CDT Kristofer Garcia was seen today for a recheck of his diabetic retinopathy. His last hemoglobin A1c was 6.1. He states the spot in the right eye is pretty much gone. It is not bothering him. As you recall, he had an area of sectorial preretinal blood secondary to some peripheral neovascularization. He has undergone previous sectorial laser. He has done well. The preretinal blood continues to resolved. We will continue to observe. He will work hard to keep his blood pressure, cholesterol and glucose under good control. We will see him back again in 4 monthsfor recheck or sooner if any problems Exam: ??See note ?? Assessment/plan: 1. 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 ??Would also consider type 2 diabetes with proliferative d iabetic changes and ocular acute occlusive disease -observe -return to clinic in 4 months with a dilated fundus exam and an OCT in both eyes or sooner if any problems ?? 2. Early cataracts, OU: -sunglasses when outdoors? Plan: -good blood pressure, cholesterol and glycemic control -return to clinic in 4 months with dilated fundus exam and OCT in both eyes documented in this encounter Miscellaneous Notes Addendum Note - John Roberson, C.O.A. - 09/04/2021 3:45 PM CDT Addended by: JOHN ROBERSON on: 09/04/2021 04:53 PM Modules accepted: Orders documented in this encounter Plan of Treatment Scheduled Referrals Name Type Priority Associated Order Schedule Diagnoses Ophthalmology office Outpatient Referral Routine Expected: visit (clinic) 01/05/2022, Expires: 12/04/2022 documented as of this encounter Results OCT-Macula/Cmboqg-ZS-Wmaz Eyes (12/25/2021 3:36 PM CDT) Analysis Performed At Patho logist Time Signature CMT L Microns 256 um OPHTHALMOLOGY IMAGING EXAM CMT R Microns 264 um OPHTHALMOLOGY IMAGING EXAM Specimen (Source) Anatomical Location Collection Method / Collectio n Time Received Time / Laterality Volume Narrative OPHTHALMOLOGY IMAGING EXAM - 12/26/19 22 3:47 PM CDT Right Eye Reliability was good. OCT device used Ideapod SpectralTapCanvas . Central macular thickness 264 um. Left Eye Reliability was good. OCT device used Ideapod Spectralis . Central macular thickness 256 um. Notes Right eye: normal contour, mild erm Left eye: ??normal contour, mild erm Jose Herman M.D. 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
--- OUTSIDE RECORDS SUMMARY | 2022-03-26 22:23 | XMS_ITS | Encounter Summary ---
:1935 Author Organization [facility] Address [address] [place] [address] Care Team Providers Name Role Phone Elsewhere, Pcp Primary Care Provider Unavailable Encounter Details Date Type Department Care Team Description 06/05/2021 Ancillary Department of Jose Herman Pennie litus Procedure Ophthalmology in [place] Type 2 With [place], [place] [address] Proliferative [address] [place], [place] [address] With Macular Edema [id number] Hypoglycemic Right Eye ([facility]) Social History Tobacco Use Types Packs/Day Years [...] or relatives? How often do you attend mormonism or Patient refused 2021 sabianism services? Do you belong to any clubs or No 12/31/2021 organizations such as mormonism groups, unions, fraternal or athletic groups, or [...] place to sleep or slept in a group home (including now)? Sex Assigned at Date Recorded Male 12/31/2021 3:41 PM CDT documented as of this encounter Plan of Treatment Not on filedocumented as of this encounter Visit Diagnoses Diagnosis Diabetes Mellitus Type 2 With Proliferat kit Diabetic Retinopathy With Macular Edema Hypoglycemic Right Eye (HCC) documented in this encounter Care Teams Button Inspector Relationship Specialty Start Date End Date Elsewhere, Pcp PCP - General Family Medicine 01/10/21 documented as of this encounter
--- OUTSIDE RECORDS SUMMARY | 2022-03-26 22:23 | XMS_ITS | Encounter Summary ---
:1935 Author Organization [facility] Address [address] [place] [address] Care Team Providers Name Role Phone Elsewhere, Pcp Primary Care Provider Unavailable Reason for Visit Speech Pathology (Routine) - Closed Specialty Diagnoses / Procedures Referred By Contact Refer red To Contact Diagnoses Hoarseness René Robert M.D. [facility] Procedures PORK CUTLET MAKER Voice evaluation [address] [place] [phone] Referral ID Status Reason Start Date Expiration Date Visits Requ ested Visits Authorized [id number] Closed 02/11/2021 02/11/2022 99 99 Encounter Details Date Type Department Care Team Description 04/29/2021 Comprehensive Visit Department of Doris Robert M.D. [address] [place] [phone] Hoarseness Otorhinolaryngology in Sophia Rosales CCC-PORK CUTLET MAKER [address] [place] [phone] [place], [place] [address] [place] [phone] Social History Tobacco Use Types Packs/Day Years [...] or relatives? How often do you attend restorationist or Patient refused 2021 worship services? Do you belong to any clubs or No 12/31/2021 organizations such as restorationist groups, unions, fraternal or athletic groups, or [...] documented as of this encounter Consult Notes Sophia Rosales, CCC-PORK CUTLET MAKER - 04/29/2021 8:30 AM CST CHIEF COMPLAINT/ PURPOSE OF VISIT Hoarseness Referring provider: René Robert MD HISTORY OF PRESENT ILLNESS Kristofer Garcia is a pleasant 85 y.o. year old man here for evaluation of hoarseness. He was accompanied today by his daughter, Tata, who remained throughout the session. He reports hoarseness and phlegm for least a year. His daughter feels his voice is gravelly at times over the past three years. She feels he will drop to 50% of normal. PHYSICAL EXAMINATION I. Phonation: Phonatory quality during connected speech is hoarse (+1). II. Patient Self-Assessment: Patient rates the voice today as 90 percent of normal. The best voice gets is 100 percent of normal, and it will worsen to 50 percent of normal. Patient rates concern aboutvoice as 3/7, andd effort when speaking as 3/7, both on a scale where 7 equals most extreme concern or extreme effort. Patient has difficulty within 20-30 minutes of speaking. Total score on the Voice Handicap Index-10 (VHI-10) is 9/40. III. Other: Clinical voice questionnaire is checked positive for reflux and chronic cough. Occupation is retired. IV. Voice care: Patient consumes 6-8 glasses of water per day and 1 caffeinated beverages per day. Social History Tobacco Use ??? Smoking status: Former Smoker Types: Cigarettes ??? Smokeless tobacco: Never Used Substance Use Topics ??? Alcohol use: Yes Alcohol/week: 1.0 standard drink Types: 1 Cans of beer per week Comment: rarely ??? Drug use: Never V. Videostrobolaryngoscopy Description: To assess structure and function of the larynx and vocal folds relative to the patient's chief complaint, flexible laryngoscopy with videostroboscopy was performed as a separate procedure. Verbal consent was obtained, universal protocol was followed. Lidocaine and phenylephrine were instilled into the right and/or left nostril(s). Olympus chip tip scope was passed and larynx visualized. Upon completion,scope was removed and patient tolerated the procedure well. Videostrobolaryngoscopy Specific Findings: Vocal folds are mobile bilaterally with full abduction during sniff and adduction during phonation. Vocal fold edges are smooth. Based on videostroboscopy, mucosal waveform is reduced bilaterally , closure is complete. IMPRESSION Mr. Garcia is exhibiting dysphonia. This fluctuates in nature. He has normal laryngeal exam today. I offered voice therapy if he would like to work on his voice quality. He is happy today simply with reassurance. It was my pleasure to participate in his care. PATIENT EDUCATION Ready to learn, no apparent learning barriers identified; learning preferences include listening. Diagnosis and treatment plan explained; opportunity to ask questions given; patient expressed understanding of content. DIAGNOSIS #1 Dysphonia BUILDER documented in this encounter Plan of Treatment Not on filedocumented as of this encounter Visit Diagnoses Diagnosis Hoarseness documented in this encounter Care Teams Golf Cart Maker Relationship Specialty Start Date End Date Elsewhere, Pcp PCP - General Family Medicine 01/10/21 documented as of this encounter
--- OUTSIDE RECORDS SUMMARY | 2022-03-26 22:23 | XMS_ITS | Encounter Summary ---
:1935 Author Organization [facility] Address [address] [place] [address] Care Team Providers Name Role Phone Elsewhere, Pcp Primary Care Provider Unavailable Reason for Visit Reason Comments Eye Exam Outpatient (Routine) - Closed Specialty Diagnoses / Procedures Referred By Contact Refer red To Contact Ophthalmology Jose Herman M. D. 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 How often do you attend anglican or Patient refused 2021 church services? Do you belong to any clubs or No 12/31/2021 organizations such as anglican groups, unions, [employer] or athletic groups, or school groups? How [...] encounter Progress Notes Jose Herman M.D. 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 He feels like his vision is stable. He has nocomplaints. He has not noticed any new floaters. Objectively, visual acuity is great at 20/20! The preretinal blood in his right eye is less. If he follow along with the photographs, you can see that it is now split into 2 smaller areas. There is no evidence of any new blood in either eye. We will continue to observe. The patient will return to clinic in 3 months for recheck or sooner if any problems. Exam: ??See note ?? Assessment/plan: 1. 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 ??Would also consider type 2 diabetes with proliferative d iabetic changes and ocular acute occlusive disease -observe -return to clinic in 3 months with dilated fundus exam and OPTOS's color photographs ?? 2. History of photopsias: -being worked up by neuro today ?? 3. Early cataracts, OU: -sunglasses when outdoors? 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
--- OUTSIDE RECORDS SUMMARY | 2022-03-26 22:23 | XMS_ITS | Encounter Summary ---
:1935 Author Organization [facility] Address [address] [place] [address] Care Team Providers Name Role Phone Elsewhere, Pcp Primary Care Provider Unavailable Encounter Details Date Type Department Care Team Description 04/26/2021 Admin Visit Department of Family Medicine, [address] [address] [facility] [place] [phone] Social History Tobacco Use Types Packs/Day Years [...] or relatives? How often do you attend tenriism or Patient refused 2021 denominational services? Do you belong to any clubs or No 12/31/2021 organizations such as tenriism groups, unions, fraternal or athletic groups, or [...] place to sleep or slept in a intermediate (including now)? Sex Assigned at Date Recorded Male 12/31/2021 3:41 PM CDT documented as of this encounter Plan of Treatment Not on filedocumented as of this encounter Visit Diagnoses Not on filedocumented in this encounter Additional Health Concerns Infection Onset Date Last Indicated Resolved Time COVID19 Pending 04/26/2021 04/26/2021 04/26/2021 8:55 PM DAIRY MANAGER documented as of this encounter Care Teams Economic Geographer Relationship Specialty Start Date End Date Elsewhere, Pcp PCP - General Family Medicine 01/10/21 documented as of this encounter
--- OUTSIDE RECORDS SUMMARY | 2022-03-26 22:23 | XMS_ITS | Encounter Summary ---
:1935 Author Organization [facility] Address [address] [place] [address] Care Team Providers Name Role Phone Elsewhere, Pcp Primary Care Provider Unavailable Encounter Details Date Type Department Care Team Description 06/05/2021 Ancillary Department of Jose Herman Pennie litus Procedure Ophthalmology in [place] Type 2 With [place], [place] [address] Proliferative [address] [place], [place] [address] With Macular Edema [id number] Hypoglycemic Right Eye ([facility]) Social History Tobacco Use Types Packs/Day Years [...] or relatives? How often do you attend quaker or Patient refused 2021 yarsanism services? Do you belong to any clubs or No 12/31/2021 organizations such as quaker groups, unions, fraternal or athletic groups, or [...] Comme nts FUNDUS PHOTOS - OU Routine 06/05/2021 3:44 PM Diabetes Mellitu s Type Results for this - BOTH EYES MANAGER MARKET DEVELOPMENT 2 With Proliferative procedu re are in Diabetic Retinopathy the res ults With Macular Edema section. Hypoglycemic Right Eye (HCC) documented in this encounter Results Fundus Photos - OU - Both Eyes (06/05/2021 3:44 PM MANAGER MARKET DEVELOPMENT) Specimen (Source) Anatomical Location Collection Method / Collectio n Time Received Time / Laterality Volume Narrative OPHTHALMOLOGY IMAGING EXAM - 06/05/19 4:11 PM MANAGER MARKET DEVELOPMENT Right Eye Field of view is ultra-wide view. Fundus photo type obtained is Color. Left Eye Field of view is ultra-wide view. Fundus photo type obtained is Color. Notes Autofluorescence: Right eye-there is an area of hyper refl ectivity in 2 small areas in the temporal retina. ??It is smaller than it was last time. ??There is hyper reflective spots in the temporal retina secondary to previous panretinal photocoagulation Left eye-within normal limits Jose Herman M.D. 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
--- OUTSIDE RECORDS SUMMARY | 2022-03-26 22:23 | XMS_ITS | Encounter Summary ---
:1935 Author Organization [facility] Address [address] [place] [address] Care Team Providers Name Role Phone Elsewhere, Pcp Primary Care Provider Unavailable Reason for Referral Outpatient (Routine) - Closed Specialty Diagnoses / Procedures Referred By Contact Lidia sheffield To Contact Hematology Oncology Meliton Gordon M.D . [address] [phone] Referral ID Status Reason Start Date Expiration Date Visits Requ ested Visits Authorized [id number] Closed 05/03/2021 05/03/2022 1 1 TION TACTICAL READINESS OFFICER Reason for Visit Outpatient (Routine) - Closed Specialty Diagnoses / Procedures Referred By Contact Lidia sheffield To Contact Hematology Oncology CallMeliton M.D . 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 How often do you attend adventist or Patient refused 2021 buddhism services? Do you belong to any clubs or No 12/31/2021 organizations such as adventist groups, unions, fraternal or athletic groups, or [...] PM CDT documented as of this encounter Last Filed Vital Signs Vital Sign Reading Time Taken Comments Blood Pressure 155/71 05/02/2021 2:10 PM AVIATION TACTICAL READINESS OFFICER Pulse 69 05/02/2021 2:10 PM AVIATION TACTICAL READINESS OFFICER Temperature 35.9 ??C (96.6 ??F) 05/02/2021 2:10 PM AVIATION TACTICAL READINESS OFFICER Respiratory Rate - - Oxygen Saturation - - Inhaled Oxygen Concentration - - Weight 100 kg (220 lb 7.4 oz) 05/02/2021 2:10 PM AVIATION TACTICAL READINESS OFFICER Height 174.5 cm (5' 8.7) 05/02/2021 2:10 PM AVIATION TACTICAL READINESS OFFICER Body Mass Index 32.84 05/02/2021 2:10 PM AVIATION TACTICAL READINESS OFFICER documented in this encounter Progress Notes Meliton Gordon M.D. - 05/02/2021 2:30 PM CST SUBJECTIVE Referring Provider Meliton Gordon M.D. CHIEF COMPLAINT/REASON FOR VISIT Follow-up of CLL, on observation HISTORY OF PRESENT ILLNESS Kristofer Garcia is a 85 y.o. male with a 14 year history of CLL. He has been observed over that time and has never met the criteria for treatment. He has been having a somewhat increased mild anemia but is not causing symptoms and he is continuing to be observed. He returns in feels the same as he has been. He is not noticing any new symptoms. His energy and appetite are stable. 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 His flow cytometry revealed a population of lambda-restricted B lymphocytes that were negative for CD38 and ZAP-70. FISH showed no abn ormalities, and he was felt to be Topete stage 0 and recommended to be observed. 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 Patient Active Problem List Diagnosis ??? 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 Anemia ??? Stenosis Aortic Valve Acquired ??? Diabetes Mellitus Type 2 ([facility]) ??? Amaurosis Fugax ??? 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 Migraine Headache With Aura ??? Hemorrhage Retinal Bilateral ??? Hemorrhage Vitreous Right ([facility]) ??? 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 Sickle Cell Disease ([facility]) ??? Dyspnea On Exertion ??? 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 Coronary Stent Status Post ??? 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 Cataracts Brother ??? Diabetes Brother ??? Macular degeneration Brother ??? Cataracts Brother ??? Amblyopia Neg Hx ??? Blindness Neg Hx ??? Strabismus Neg Hx REVIEW OF SYSTEMS General review of systems including General, Skin, HEENT, Cardiac, Respiratory, GI, , Musculoskeletal, and Neurologic is noncontributory or as follows: ECOG PS 1 Current Outpatient Medications Medication Sig Dispense Refill ??? ascorbic acid, vitamin C, (ascorbic acid with mildred hips) 500 mg tablet Take 1 tablet by mouth daily. ??? atorvastatin (LIPITOR) 20 mg tablet Take 20 mg by mouth at bedtime. ??? carvediloL (COREG) 25 mg tablet Take 25 mg by mouth 2 (two) times a day with meals. ??? clopidogreL (PLAVIX) 75 mg tablet Take 1 tablet (75 mg total) by mouth daily. 90 tablet 1 ??? DME CPAP DME Order ??? Eliquis 5 mg tablet 5 mg 2 (two) times a day. ??? glimepiride (AMARYL) 2 mg tablet Take 2 mg by mouth daily with breakfast. ??? omega-3 fatty acids/fish oil (OMEGA 3 FISH OIL ORAL) Take 1 capsule by mouth daily. ??? pantoprazole (PROTONIX) 40 mg EC tablet Take 1 tablet (40 mg total) by mouth every morning before breakfast. 90 tablet 3 ??? silver sulfADIAZINE (SILVADENE, SSD) 1 % cream Apply 1 application topically as needed. ??? spironolactone (ALDACTONE) 25 mg tablet Take 0.5 tablets (12.5 mg total) by mouth daily. 45 tablet 3 ??? triamcinolone (KENALOG) 0.1 % cream Apply 1 application topically as needed. ??? valsartan (DIOVAN) 320 mg tablet Take 320 mg by mouth daily. ??? vitamin E 400 unit capsule Take 1 capsule by mouth daily. No current facility-administered medications for this visit. OBJECTIVE Vitals: 05/02/21 1410 BP: 155/71 Pulse: 69 Temp: (!) 35.9 ??C Height: 174.5 cm Weight: 100 kg Body surface area is 2.2 meters squared. PHYSICAL EXAM General: Alert, oriented, in no discomfort. Skin: Normal Eyes: Normal ENT: Normal Lymph: No cervical, supraclavicular, axillary or inguinal adenopathy. Heart: S1, S2 normal. Regular rate and rhythm. No murmurs. Lungs: Clear to auscultation, bilateral good air entry. Abdomen: Non-tender to palpation. No hepatosplenomegaly. Neuro: grossly normal. Extremities: No pitting edema or deformities. DIAGNOSTICS I have reviewed the recent relevant labs. No results found. Recent Results (from the past 72 hour(s)) Alkaline Phosphatase Collection Time: 05/02/21 10:05 AM Result Value Alkaline Phosphatase, S 100 AST (Aspartate Aminotransferase) Collection Time: 05/02/21 10:05 AM Result Value Aspartate Aminotransferase (AST), S 19 Bilirubin, Total Collection Time: 05/02/21 10:05 AM Result Value Bilirubin, Total, S 0.4 Creatinine with Estimated GFR Collection Time: 05/02/21 10:05 AM Result Value Creatinine, S 1.15 eGFR-Non Black/ 58 (L) eGFR-Black/ 67 LD (Lactate Dehydrogenase) Collection Time: 05/02/21 10:05 AM Result Value Lactate Dehydrogenase (LD), S 172 [id number] 12MG [id number] Collection Time: 05/02/21 10:05 AM [place] [address] A N 01 [place] 27426 A N 02 [place] [address] A N 03 [place] [address] A N 04 [place] [address]227 A N 05 [place] [address] A N 08 [place] [address] A N 04 Collected CBC with Differential, Blood Collection Time: 05/02/21 10:06 AM Result Value Hemoglobin 11.2 (L) Hematocrit 35.9 (L) Erythrocytes 3.93 (L) MCV 91.3 RBC Distrib Width 15.0 (H) Platelet Count 185 Leukocytes 39.1 (H) Neutrophils 7.02 (H) Lymphocytes 30.64 (H) Monocytes 1.15 (H) Eosinophils 0.22 Basophils 0.06 Reticulocytes Collection Time: 05/02/21 10:06 AM Result Value Reticulocytes, B 1.42 Absolute Reticulocyte 55.8 ASSESSMENT / PLAN #1 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 In fact is slightly lower than it was the last couple times. There is no sign of any progressive thrombocytopenia. His hemoglobin is remaining in the low 11th. I think this is probably multifactorial and includes his other comorbidities such as decreased GFR, diabetes, etcetera. Certainly some of it may relate to the CLL. However at this point wewill continue to observe. #2 Anemia When he returns in six months I will redo a ferritin and a pernicious anemia cascade along with a peripheral smear and a Shey test. I did discuss with him that if his hemoglobin continues to fall and gets less than approximately 10.5 worry develops more symptoms. Then consideration of a bone marrow biopsy and treatment may be needed. Follow-up: Return to clinic in 6 months Education We discussed the diagnosis and treatment plan in detail. The patient expressed understanding of the content. No apparent learning barriers were identified; learning preferences include listening. I personally spent 30 minutes in care of the patient today. Time includes both non face to face and face to face patient care. Signed by: Renate Gordon M.D. 05/03/2021 10:38 AM AVIATION TACTICAL READINESS OFFICER TION TACTICAL READINESS OFFICER documented in this encounter Plan of Treatment Scheduled Referrals Name Type Priority Associated Order Schedule Diagnoses Hematology office Outpatient Referral Routine Exp ected: visit (clinic) 11/05/2021 (Approximate), Expires: 08/01/2022 documented as of this encounter Results (ABNORMAL) SPSMA Result (11/05/2021 10:53 AM CDT) [facility] gist Method Time Signature Neutrophilic Segs 16 (L) 50 - 75 % 11/05/2021 DHPM and Bands 2:12 PM CDT Lymphocytes 81 (H) 18 - 42 % 11/05/2021 DHPM 2:12 PM CDT Monocytes 3 2 - 11 % 11/05/2021 DHPM 2:12 PM CDT Fragile Cells Slight 11/05/2021 DHPM 2:12 PM CDT Manual Absolute 7.78 (H) 1.56 - 11/05/2021 DHPM Neutrophil Count 6.45 2:12 PM CDT x10(9)/L Comment: ----ADDITIONAL INFORMATION---- The manual absolute neutrophil count is derived from a manual differential count and therefore is not exactly comparable to the automated absolute celso trophil count. Interpretation SeeComment 11/05/2021 2:12 PM CDT D HPM Comment: The blood smear findings are consistent with the previous diagnosis of chronic lymphocytic leukemia. Reviewed by: Eric 11/05/2021 2:12 PM CDT [facility] Specimen Anatomical Collection Method Collection Time Receive d Time (Source) Location / / Volume Laterality Blood (Blood, 11/05/2021 10:53 11/05/2021 Venous) AM CDT 11:36 AM CDT Meliton Gordon M.D. LAB BLOOD ADD-ON Performing Organization Address City/State/ZIP Code Phon e Number [facility] - [address] [place], [place] [address] [place] [address] Laboratories-[facility] [address] Reticulocytes (11/05/2021 10:53 [...] M.D. LAB BLOOD ADD-ON Performing Organization Address City/[facility] Phon e Number [facility] - [address] [place], [place] [address] [place] [address] [place], [place] [id number] [place] [address] 200 [facility] (ABNORMAL) CBC with Differential, Blood (11/05/2021 10:53 [...] M.D. LAB BLOOD ADD-ON Performing Organization Address City/[facility] Phon e Number [facility] - [address] [place], [place] [address] [facility] [place] [address] [facility] [address] Direct Antiglobulin Test (Poly) (11/05/2021 10:52 AM CDT) Patholo gist Method Time Signature Direct Negative Negative 11/05/2021 ETRM Antiglobulin 12:41 PM CDT Test, Polyspecific Specimen Anatomical Collection Method Collection Time Receive d Time (Source) Location / / Volume Laterality Blood (Blood, 11/05/2021 10:52 11/05/2021 Venous) AM CDT 11:44 AM CDT Meliton Gordon M.D. LAB BLOOD BANK TEST ORDERABL ES Performing Organization Address City/[facility]/ZIP Code Phon e Number [facility] - [address] [place], [place] [address] [facility] [place] [address] [facility] [address] [facility] Pernicious Anemia [place] (11/05/2021 10:52 AM CDT) athologist Signature Vitamin B12 311 180 - 914 11/05/2021 [facility] Assay, S ng/L 4:41 PM CDT Comment: B-12 <400; MMA test was perform ed. Specimen Anatomical Collection Method Collection Time Receive d Time (Source) Location / / Volume Laterality Blood (Blood, 11/05/2021 10:52 11/05/2021 3:31 Venous) AM CDT PM CDT Meliton Gordon M.D. LAB BLOOD NON ADD-ON Performing Organization Address City/[facility]/ZIP Code Phon e Number [facility] [address] [place], [place] [address] [facility] [place] [address] Laboratory Medicine and Pathology [address] [place] Ferritin (11/05/2021 10:52 AM CDT) P athologist Signature Ferritin, S 57 24 - 336 11/05/2021 DTL mcg/L 1:55 PM CDT Specimen Anatomical Collection Method Collection Time Receive d Time (Source) Location / / Volume Laterality Blood (Blood, 11/05/2021 10:52 11/05/2021 Venous) AM CDT 12:15 PM CDT Meliton Gordon M.D. LAB BLOOD ADD-ON Performing Organization Address City/State/ZIP Code Phon e Number [facility] - [address] [place], [place] [address] [facility] [place] [address] [facility] 200 [facility] Immunoglobulin G (IgG) (11/05/2021 10:52 AM CDT) Patholo gist Method Time Signature Immunoglobulin G 892 767 - 1590 11/05/2021 [facility] (IgG), S mg/dL 4:54 PM CDT Specimen Anatomical Collection Method Collection Time Receive d Time (Source) Location / / Volume Laterality Blood (Blood, 11/05/2021 10:52 11/05/2021 4:27 Venous) AM CDT PM CDT Meliton Gordon M.D. LAB BLOOD ADD-ON Performing Organization Address City/[facility]/ZIP Code Phon e Number [facility] [address] [place], [place] [address] [facility] [address] Laboratory Medicine and Pathology [address] [place] LD (Lactate Dehydrogenase) (11/05/2021 10:52 [...] LAB BLOOD NON ADD-ON Performing Organization Address City/[facility]/ZIP Code Phon e Number [facility] - [address] [place], [place] [address] [facility] [place] [address] Laboratories-[address] Creatinine with Estimated GFR (11/05/2021 10:52 AM CDT) P athologist Signature Creatinine 0.98 0.74 - 11/05/2021 DTL 1.35 mg/dL 12:38 PM CDT eGFR-Non 70 >=60 11/05/2021 DTL Black/ mL/min/BSA 12:38 PM CDT [place] Comment: ----ADDITIONAL INFORMATION---- Estimated GFR calculated using [...] M.D. LAB BLOOD ADD-ON Performing Organization Address City/[facility]/ZIP Code Phon e Number [facility] - [address] [place], [place] [address] [facility] [place] [address] Laboratories-[address] Bilirubin, Total (11/05/2021 10:52 AM CDT) P athologist Signature Bilirubin, 0.7 <=1.2 mg/dL 11/05/2021 DTL Total, S 12:38 PM CDT Specimen Anatomical Collection Method Collection Time Receive d Time (Source) Location / / Volume Laterality Blood (Blood, 11/05/2021 10:52 11/05/2021 Venous) AM CDT 12:17 PM CDT Meliton Gordon M.D. LAB BLOOD ADD-ON Performing Organization Address City/[facility]/ZIP Code Phon e Number [facility] - [address] [place], [place] [address] [facility] [place] [address] Laboratories-[place] [address] [facility] AST (Aspartate Aminotransferase) (11/05/2021 10:52 AM CDT) Patholo gist Method Time Signature Aspartate 20 8 - 48 11/05/2021 DTL Aminotransferase U/L 12:38 PM CDT (AST), S Specimen Anatomical Collection Method Collection Time Receive d Time (Source) Location / / Volume Laterality Blood (Blood, 11/05/2021 10:52 11/05/2021 Venous) AM CDT 12:17 PM CDT Meliton Gordon M.D. LAB BLOOD ADD-ON Performing Organization Address City/[facility]/ZIP Code Phon e Number [facility] - [address] [place] [id number] [place] [address] [facility] [address] [facility] Alkaline Phosphatase (11/05/2021 10:52 AM CDT) athologist Signature Alkaline 118 40 - 129 11/05/2021 DT Phosphatase, S U/L 12:38 PM CDT Specimen Anatomical Collection Method Collection Time Receive d Time (Source) Location / / Volume Laterality Blood (Blood, 11/05/2021 10:52 11/05/2021 Venous) AM CDT 12:17 PM CDT Meliton Gordon M.D. 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
--- OUTSIDE RECORDS SUMMARY | 2022-03-26 22:23 | XMS_ITS | Encounter Summary ---
:1935 Author Organization [facility] Address [address] [place] [address] Care Team Providers Name Role Phone Elsewhere, Pcp Primary Care Provider Unavailable Reason for Referral Outpatient (Routine) - Authorized Specialty Diagnoses / Procedures Referred By Contact Refer red To Contact Hematology Oncology Nicki Ortiz, [facility] Yen, M.S. [address] [place] [phone] Referral ID Status Reason Start Date Expiration Date Visits V isits Requested Authorized [id number] Authorized 11/05/2021 11/05/2022 1 1 Scheduling Instructions Transfer of care from Call, should see Carmelita Arias Reason for Visit Outpatient (Routine) - Closed Specialty Diagnoses / Procedures Referred By Contact Refer red To Contact Hematology Oncology Meliton Gordon M.D . 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 [facility] [address] [facility] [address] [place] [phone] Social History Tobacco Use Types Packs/Day Years [...] or relatives? How often do you attend congregational or Patient refused 2021 anabaptist services? Do you belong to any clubs or No 12/31/2021 organizations such as congregational groups, unions, fraternal or athletic groups, or [...] ??F) 11/05/2021 2:03 PM CDT Respiratory Rate - - Oxygen Saturation - - Inhaled Oxygen Concentration - - Weight 93.2 kg (205 lb 7.5 oz) 11/05/2021 2:03 PM CDT Height 172 cm (5' 7.72) 11/05/2021 2:03 PM CDT Body Mass Index 31.5 11/05/2021 2:03 PM CDT documented in this encounter Progress Notes Nicki Ortiz P.A.VelC., M.S. - 11/05/2021 2:00 PM CDT STAFF SENIOR JAVA WEB DEVELOPER CALL CHIEF COMPLAINT/PURPOSE OF VISIT: CLL SUBJECTIVE HISTORY OF PRESENT ILLNESS: Mr. Garcia is a 85 y.o. 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 Garcia returns today for follow-up. Overall he feels that he is doing well up until the last few days when he developed a cold, marked by cough and nasal congestion. He reports he has tested for Covid 3 times and negative. No fevers. He denies any drenching night sweats or adenopathy. Appetite is intact, he denies any unintentional weight loss. He does have some fatigue that he attributes toage. OBJECTIVE VITAL SIGNS: BP (!) 171/71 Pulse 73 Temp (!) 35.8 ??C Ht 172 cm Wt 93.2 kg BMI 31.50 kg/m?? Provider recheck BP 145/68 MEDICATIONS: Current Outpatient Medications: ??? Accu-Chek Guide Glucose Meter [facility] [place] See Admin Instructions., Disp: , Rfl: ??? Accu-Chek Softclix Lancets lancets, daily. for testing, Disp: , Rfl: ??? ascorbic acid, vitamin C, (VITAMIN C) 500 mg tablet, Take 1 tablet by mouth daily., Disp: , Rfl: ??? atorvastatin (LIPITOR) 20 mg tablet, Take 20 mg by mouth at bedtime. , Disp: , Rfl: ??? blood sugar diagnostic (Truetrack Test) strips, TEST 1 TIME PER DAY, Disp: , Rfl: ??? carvediloL (COREG) 25 mg tablet, Take 25 mg by mouth 2 (two) times a day with meals. , Disp: , Rfl: ??? DME CPAP, DME Order, Disp: , Rfl: ??? Eliquis 5 mg tablet, 5 mg 2 (two) times a day. , Disp: , Rfl: ??? fluticasone propionate (FLONASE) 50 mcg/actuation nasal spray, Administer 2 sprays into nostril(s) daily., Disp: , Rfl: ??? glimepiride (AMARYL) 2 mg tablet, Take 2 mg by mouth., Disp: , Rfl: ??? omega-3 fatty acids/fish oil (OMEGA 3 FISH OIL ORAL), Take 1 capsule by mouth daily., Disp: , Rfl: ??? omeprazole (PriLOSEC) [address] capsule, Take 20 mg by mouth 2 (two) times a day., Disp: , Rfl: ??? pantoprazole (PROTONIX) 40 mg EC tablet, Take 1 tablet (40 mg total) by mouth every morning before breakfast., Disp: 90 tablet, Rfl: 3 ??? salmon oiL-omega-3 fatty acids 1,000-210 mg capsule, Take by mouth., Disp: , Rfl: ??? silver sulfADIAZINE (SILVADENE, SSD) 1 % cream, Apply 1 application topically as needed. , Disp:, Rfl: ??? spironolactone (ALDACTONE) 25 mg tablet, Take 0.5 tablets (12.5 mg total) by mouth daily., Disp:45 tablet, Rfl: 3 ??? triamcinolone (KENALOG) 0.1 % cream, Apply 1 application topically as needed. , Disp: , Rfl: ??? valsartan (DIOVAN) 320 mg tablet, Take 320 mg by mouth daily. , Disp: , Rfl: ??? vitamin E 400 unit capsule, Take 1 capsule by mouth daily., Disp: , Rfl: PHYSICAL EXAM: General: pleasant, nontoxic appearing male, in no acute distress. Ambulates to and from exam table without difficulty. Neuro: alert and oriented to person, place, and time; no focal deficits noted Eyes: anicteric, with extraocular movements intact Heart: regular rate and rhythm Lungs: clear to auscultation bilaterally, breathing comfortably on room air Abdomen: soft, nontender, without palpable hepatosplenomegaly Lymph: no significant lymphadenopathy Extremities: no lower extremity edema Skin: no rashes, purpura visualized DIAGNOSTICS: Most recent laboratory values include: Lab Results Component Value Date WBC 48.6 (H) 11/05/2021 HGB 12.4 (L) 11/05/2021 HCT 38.1 (L) 11/05/2021 MCV 89.2 11/05/2021 PLT 174 11/05/2021 , Lab Results Component Value Date NA 140 03/28/2021 CL 107 03/28/2021 CREATININE 0.98 11/05/2021 BUN 20 03/28/2021 ANIONGAP 12 03/28/2021 GLUCOSE 114 (H) 03/28/2021 CALCIUM 9.5 03/28/2021 Lab Results Component Value Date ALT 17 12/17/2020 AST 20 11/05/2021 ALKPHOS 118 11/05/2021 BILITOT 0.7 11/05/2021 ASSESSMENT / PLAN #1 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 Garcia is a pleasant 85 y.o. male with FISH WNL CLL, originally diagnosed in 2006, who has been observed without requiring treatment since that time. We reviewed all of today's findings together in detail. White count is somewhat increased compared to April, but has been in the same range since around 2015. He does have some neutrophilia today, likely reflective of his current upper respiratory infection. He has tested for COVID several times and this has been negative. He is afebrile, vitally stable, and lungs are clear on today's exam. We discussed use of Netipot, Flonase, and a non-sedating antihistamine such as Claritin or Zyrtec to try and help with his symptoms of PND. Anemia is somewhat improved compared to last check, though has been overall downtrending over the past year or so. Ferritin is 57, this may be somewhat higher than its true value due to current URI. Pernicious anemia cascade is pending. He has some fatigue but this is not significantly impacting his ADLs. No other B symptoms. No significant adenopathy or splenomegaly on exam. At this time he does not meet criteria for treatment and ongoing observation is appropriate. Pending today's pernicious anemia cascade results, I do recommend a repeat CBC locally in 6 months so he does not have to drive here in the winter, with a plan to RTC in 1 year. I reviewed with Mr. Garcia and his daughter signs and symptoms for which to contact us in the interim, for which we would be more than happy to see him sooner. All questions answered. Mr. Garcia expressed understanding and was in agreement with the plan. FOLLOW-UP: Local labs in 6 months, Return to clinic in 1 year, or sooner if needed BILLING I personally spent a total of 40 minutes in both face to face and non face to face coordination of care as outlined above. documented in this encounter Plan of Treatment Scheduled Orders Name Type Priority Associated Diagnoses Order S chedule Alkaline Phosphatase Lab Routine Leukemia Lymphocytic Expected: Chronic Not Having 3, Expires: Achieved Remission (HCC) AST (Aspartate Lab Routine Leukemia Lymphocytic Expec josh: Aminotransferase) Chronic Not Having 10/17, Expires: Achieved Remission (HCC) Bilirubin, Total Lab Routine Leukemia Lymphocytic Exp ected: Chronic Not Having , Expires: Achieved Remission (HCC) CBC with Differential, Lab Routine Leukemia Lymphocyt ic Expected: Blood Chronic Not Having 3, Expires: Achieved Remission (HCC) Creatinine with Estimated Lab Routine Leukemia Lympho cytic Expected: GFR Chronic Not Having 3, Expires: Achieved Remission (HCC) LD (Lactate Dehydrogenase) Lab Routine Leukemia Lymph ocytic Expected: Chronic Not Having 3, Expires: Achieved Remission (HCC) Reticulocytes Lab Routine Leukemia Lymphocytic Expect ed: Chronic Not Having 3, Expires: Achieved Remission (HCC) Immunoglobulin G (IgG) Lab Routine Leukemia Lymphocyt ic Expected: Chronic Not Having 3, Expires: Achieved Remission (HCC) Scheduled Referrals Name Type Priority Associated Order Schedule Diagnoses Hematology office Outpatient Referral Routine Exp ected: visit (clinic) 11/05/2022, Expires: 02/05/2023 documented as of this encounter Procedures Procedure Name Priority Date/Time Associated Comments Diagnosis IMMUNOGLOBULIN A (IGA), Routine 11/05/2021 10:52 Leukemia Results for this S AM CDT Lymphocytic Chronic procedur e are in Not Having Achieved the resu lts Remission (HCC) section. documented in this encounter Results Immunoglobulin A (IgA) (11/05/2021 10:52 AM CDT) [facility] Method Time Signature Immunoglobulin A 70 61 - 356 11/06/2021 [facility] (IgA), S mg/dL 11:39 AM CDT Specimen Anatomical Collection Method Collection Time Receive d Time (Source) Location / / Volume Laterality Blood (Blood, 11/05/2021 10:52 11/06/2021 Venous) AM CDT 10:47 AM CDT Nicki Ortiz P.A.-C., M.S. LAB BLOOD ADD-ON Performing Organization Address City/State/ZIP Code Phon e Number [facility] [address] [place] [address] SU[facility] CENTER [facility] [place] [address] Laboratory Medicine and Pathology [address] 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
--- OUTSIDE RECORDS SUMMARY | 2022-03-26 22:23 | XMS_ITS | Encounter Summary ---
:1935 Author Organization [facility] Address [address] [place] [address] Care Team Providers Name Role Phone Elsewhere, Pcp Primary Care Provider Unavailable Reason for Visit Reason Onset Date Comments Outpatient COVID-19 Testing 04/26/2021 Encounter Details Date Type Department Care Team Description 04/26/2021 External Outreach Department of [facility] Ho Muniz Contact With And Medicine, [facility] Cliff Laird D.O. (Suspected) Exposure Building, in [address] COVID-19 ([place], [place] Dx) [address] [facility] [address] [place], [place] [phone] (Work) [phone] Social History Tobacco Use Types Packs/Day Years [...] or relatives? How often do you attend religion or Patient refused 2021 orthodox services? Do you belong to any clubs or No 12/31/2021 organizations such as religion groups, unions, fraternal or athletic groups, or [...] documented as of this encounter Progress Notes Sarika Verduzco R.N. - 04/26/2021 10:36 AM CST Encounter created for infectious disease screening. LY MEDICINE PHYSICIAN ASSISTANT documented in this encounter Plan of Treatment Not on filedocumented as of this encounter Procedures Procedure Name Priority Date/Time Associated Diagnosis Comme nts SARS CORONAVIRUS-2 Routine 04/26/2021 10:48 AM Contact With An d Results for this RNA, V FAMILY MEDICINE PHYSICIAN ASSISTANT (Suspected) Exposure procedu re are in To COVID-19 the results section. documented in this encounter Results SARS Coronavirus-2 RNA, V Asymptomatic (04/26/2021 10:48 AM FAMILY MEDICINE PHYSICIAN ASSISTANT) [facility] Method Time Signature SARS-CoV-2 Swab, 04/26/2021 MKTO Specimen Nasopharynx 8:55 PM FAMILY MEDICINE PHYSICIAN ASSISTANT Source SARS CoV-2 Undetected Undetected 04/26/2021 MKTO RNA, TMA 8:55 PM FAMILY MEDICINE PHYSICIAN ASSISTANT Comment: SARS-CoV-2 RNA absent. This result does not rule out COVID-19 in the patient, as the sensitivity of the test depends o n the timing of the specimen collection and the quality of the specim en. Result should be correlated with patient's history and clinical presentat ion. ----ADDITIONAL INFORMATION---- This molecular amplification test was pe rformed using the Aptima SARS-CoV-2 assay ([employer] on the [employer] tem under emergency use authorization (EUA) by the U.S. Food and Drug Administ ration. Fact sheets for this EUA assay can be fo und at the following links: For Healthcare Providers: https://www.fd a.gov/media/859885/download For Patients: https://www.fda.gov/media/ 556459/download Specimen Anatomical Collection Method Collection Time Receive d Time (Source) Location / / Volume Laterality Varies 04/26/2021 10:48 04/26/2021 2:58 (Nasopharynx) AM FAMILY MEDICINE PHYSICIAN ASSISTANT PM FAMILY MEDICINE PHYSICIAN ASSISTANT Ho Muniz D.O. LAB MICROBIOLOGY - GENERAL O GEOFF Performing Organization Address City/State/ZIP Code Phon e Number [facility]- [address] [place] [id number] [place] [address] [place] [address] System in [place] [address] [facility] documented in this encounter Visit Diagnoses Diagnosis Contact With And (Suspected) Exposure To COVID-19 - Primary documented in this encounter Additional Health Concerns Infection Onset Date Last Indicated Resolved Time COVID19 Pending 04/26/2021 04/26/2021 04/26/2021 8:55 PM FAMILY MEDICINE PHYSICIAN ASSISTANT documented as of this encounter Care Teams Pharmacy Billing Adjudicator Relationship Specialty Start Date End Date Elsewhere, Pcp PCP - General Family Medicine 01/10/21 documented as of this encounter
--- OUTSIDE RECORDS SUMMARY | 2022-03-26 22:23 | XMS_ITS | Encounter Summary ---
:1935 Author Organization [facility] Address [address] [place] [address] Care Team Providers Name Role Phone Elsewhere, Pcp Primary Care Provider Unavailable Encounter Details Date Type Department Care Team Description 04/29/2021 Ancillary Procedure Department of Otorhinolaryngology Social History Tobacco Use Types Packs/Day Years [...] or relatives? How often do you attend christianity or Patient refused 2021 catholic services? Do you belong to any clubs or No 12/31/2021 organizations such as christianity groups, unions, fraternal or athletic groups, or [...] Procedure Name Priority Date/Time Associated Comments Diagnosis OTORHINOLARYNGOLOGY IMAGE Routine 04/29/2021 9:07 Results for this EXAM AM METAL FLOORING INSTALLER procedure are i n the results section. documented in this encounter Results Otorhinolaryngology Image Exam-Otorhinolaryngology Image Exam (04/29/2021 9:07 AM METAL FLOORING INSTALLER) Specimen (Source) Anatomical Collection Method Collection Time Re ceived Time Location / / Volume Laterality 04/29/2021 12:48 PM METAL FLOORING INSTALLER Narrative [facility] - 04/29/2021 9:07 AM METAL FLOORING INSTALLER This order has been created and auto-finalized [...] on filedocumented in this encounter Care Teams Grain Miller Helper Relationship Specialty Start Date End Date Elsewhere, Pcp PCP - General Family Medicine 01/10/21 documented as of this encounter
--- OUTSIDE RECORDS SUMMARY | 2022-03-26 22:23 | XMS_ITS | Encounter Summary ---
:1935 Author Organization [facility] Address [address] [place] [address] Care Team Providers Name Role Phone Elsewhere, Pcp Primary Care Provider Unavailable Encounter Details Date Type Department Care Team Description 04/17/2021 Orders Only Division of Hematology Judit Vital Leukemia Lymphocytic in [place] [address] [address] [facility] Chronic Not Having [place], [place] Achieved Remission [address] [place] [phone] (HCC) (Primary Dx) [place], [place] [phone] (Work) [phone] Social History Tobacco Use Types Packs/Day Years [...] or relatives? How often do you attend orthodoxy or Patient refused 2021 amish services? Do you belong to any clubs or No 12/31/2021 organizations such as orthodoxy groups, unions, fraternal or athletic groups, or [...] Not on filedocumented as of this encounter Results [id number] [id number] (05/02/2021 10:05 AM UNIT AIDE) Analysis Performed [place] [address] Collected DEFAULT 05/02/2021 HSS A N 01 10:05 [place] [address] Collected DEFAULT 05/02/2021 HSS A N 02 10:[place] [address] Collected DEFAULT 05/02/2021 HSS A N 03 10:05 [place] [address] Collected DEFAULT 05/02/2021 HSS A N 04 10:[place] [address] Collected DEFAULT 05/02/2021 HSS A N 05 10:05 [place] [address] Collected DEFAULT 05/02/2021 HSS A N 08 10:[place] [address] Collected DEFAULT 05/02/2021 HSS A N 04 10:05 AM UNIT AIDE Specimen Anatomical Collection Method Collection Time Receive d Time (Source) Location / / Volume Laterality Blood (Blood, 05/02/2021 10:05 05/02/2021 Venous) AM UNIT AIDE 10:05 AM UNIT AIDE Narrative [facility] - 05/02/2021 10:06 AM UNIT AIDE Specimen Information: Specimen ID: [id number] Specimen Type: Blood Specimen Collection Start Date: 10:05 AM Specimen Received Date: 05/02/2021 10:0 5 AM Specimen ID: [id number] Specimen Type: Blood Specimen Collection Start Date: 10:05 AM Specimen Received Date: 05/02/2021 10:0 5 AM Specimen ID: [id number] Specimen Type: Blood Specimen Collection Start Date: 10:05 AM Specimen Received Date: 05/02/2021 10:0 5 AM Specimen ID: [id number] Specimen Type: Blood Specimen Collection Start Date: 10:05 AM Specimen Received Date: 05/02/2021 10:0 5 AM Specimen ID: [id number] Specimen Type: Blood Specimen Collection Start Date: 10:05 AM Specimen Received Date: 05/02/2021 10:0 5 AM Specimen ID: [id number] Specimen Type: Blood Specimen Collection Start Date: 10:06 AM Specimen Received Date: 05/02/2021 10:0 6 AM Specimen ID: [id number] Specimen Type: Blood Specimen Collection Start Date: 10:05 AM Specimen Received Date: 05/02/2021 10:0 5 AM Fidel Rose M.D. 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
--- OUTSIDE RECORDS SUMMARY | 2022-03-26 22:24 | XMS_ITS | Encounter Summary ---
:1935 Author Organization [facility] Address [address] [place] [address] Care Team Providers Name Role Phone Elsewhere, Pcp Primary Care Provider Unavailable Reason for Visit Appointment Request (Routine) - Closed Specialty Diagnoses / Procedures Referred By Contact Refer red To Contact Alba Montana M.D. [address] [place] [phone] Referral ID Status Reason Start Date Expiration Date Visits Requ ested Visits Authorized [id number] Closed 01/22/2021 01/22/2022 1 1 Encounter Details Date Type Department Care Team Description 01/30/2021 Immunization Department of [facility] Kirsten [place] M.D. Medicine, [facility], [address] [facility] in [place], [place] [address] [facility] [address] [place] [address] [phone] Social History Tobacco Use Types Packs/Day Years [...] you attend episcopalian or Patient refused 2021 orthodox services? Do you belong to any clubs or No 12/31/2021 organizations such as episcopalian groups, unions, fraternal or athletic groups, or [...] on filedocumented in this encounter Care Teams Patient Navigator Relationship Specialty Start Date End Date Elsewhere, Pcp PCP - General Family Medicine 01/10/21 documented as of this encounter
--- OUTSIDE RECORDS SUMMARY | 2022-03-26 22:24 | XMS_ITS | Encounter Summary ---
:1935 Author Organization [facility] Address [address] [place] [address] Care Team Providers Name Role Phone Elsewhere, Pcp Primary Care Provider Unavailable Reason for Visit Reason Comments Med Refill Encounter Details Date Type Department Care Team Description 02/22/2021 Refill Department of Cardiovascular René Rothman M.D. Med Refill Medicine in [place] [address] [address] [place] [address] [place] [address] [place] [address] [phone] Social History Tobacco Use Types Packs/Day Years [...] or relatives? How often do you attend moravian or Patient refused 2021 methodist services? Do you belong to any clubs or No 12/31/2021 organizations such as moravian groups, unions, fraternal or athletic groups, or [...] this encounter Miscellaneous Notes Telephone Encounter - [place], Guadalupe S - 02/22/2021 10:03 AM CDT SUBJECTIVE CHIEF COMPLAINT / REASON FOR CALL Med Refill Name of caller/relationship to the patient: Self Patient expects communication via portal: No Phone number: [phone] Request topic and what needs to be addressed? Medication Management ?? Goal or summary: Dr. Robert added spironolactone when he saw him on February 11 and only gave 15tablets with 11 refills. ?? Medication/dose: Spironolactone, 12.g mg tablet, take half tablet by mouth daily. ?? Recent change/new symptom/side effect: Patient is experiencing no symptoms on the medication and feels great. ?? Pharmacy clarification: [facility] in [place], [place]. ?? Additional comments: Patient is requesting a 90-day supply so he isn't running to the pharmacy all the time for a refill. documented in this encounter Plan of Treatment Not on filedocumented as of this encounter Visit Diagnoses Not on filedocumented in this encounter Care Teams Fusing Machine Tender Relationship Specialty Start Date End Date Elsewhere, Pcp PCP - General Family Medicine 01/10/21 documented as of this encounter
--- OUTSIDE RECORDS SUMMARY | 2022-03-26 22:24 | XMS_ITS | Encounter Summary ---
:1935 Author Organization [facility] Address [address] [place] [address] Care Team Providers Name Role Phone Elsewhere, Pcp Primary Care Provider Unavailable Encounter Details Date Type Department Care Team Description 04/03/2021 Silent Schedule Department of Jose Herman, Ophthalmology in .[place], [place] [address] [place] [phone] (Wo rk) Social History Tobacco Use Types [...] or relatives? How often do you attend methodist or Patient refused 2021 hoahaoism services? 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 Hypoglycemic Right Eye (HCC) Hemorrhage Vitreous Right (HCC) Hemorrhage Retinal Bilateral documented in this encounter Results Fundus Photos - OU - Both Eyes (04/03/2021 2:08 PM SURVEY INTERVIEWER) Specimen (Source) Anatomical Location Collection Method / Collectio n Time Received Time / Laterality Volume Narrative OPHTHALMOLOGY IMAGING EXAM - 04/03/20 2:08 PM SURVEY INTERVIEWER Color photograph, right eye: ??The cup to disc ratio is about 0.4. ??There was some preretinal blood temporally but it is smaller compared to last exam. ??There is sectorial PRP in the re tinal periphery. Color photograph, left eye: The cup disc ratio is about 0.5. ??The maculas without pathology. ??There is no real vi ew of the peripheral retina. Jose Herman M.D. OPHTH PHOTOGRAPHY Performing Organization Address City/State/ZIP Code Phon e Number OPHTHALMOLOGY IMAGING EXAM documented in this encounter Visit Diagnoses Not on filedocumented in this encounter Care Teams Draw Frame Operator Relationship Specialty Start Date End Date Elsewhere, Pcp PCP - General Family Medicine 01/10/21 documented as of this encounter
--- OUTSIDE RECORDS SUMMARY | 2022-03-26 22:24 | XMS_ITS | Encounter Summary ---
:1935 Author Organization [facility] Address [address] [place] [address] Care Team Providers Name Role Phone Elsewhere, Pcp Primary Care Provider Unavailable Reason for Referral Outpatient (Routine) - Closed Specialty Diagnoses / Procedures Referred By Contact Refer red To Contact Ophthalmology Jose Herman M. D. [address] [phone] Referral ID Status Reason Start Date Expiration Date Visits Requ ested Visits Authorized [id number] Closed 04/03/2021 04/03/2022 1 1 Scheduling Instructions return to clinic in 2 months with OPTOS color photographs and autofluorescence and OCT or sooner if any problems ONNEL SPECIALIST Reason for Visit Reason Comments recheck laser Outpatient (Routine) - Closed Specialty Diagnoses / Procedures Referred By Contact Refer red To Contact Ophthalmology Jose Herman M. D. 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 Hemorrhage Vitreous Right (HCC); [place], [place] [address] Hemorrhage Retinal Bilateral; [address] [place], [place] [phone] Social History Tobacco Use Types Packs/Day Years [...] or relatives? How often do you attend religious or Patient refused 2021 evangelical services? Do you belong to any clubs or No 12/31/2021 organizations such as religious groups, unions, fraternal or athletic groups, or [...] encounter Progress Notes Jose Herman M.D. 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 He states he is doing well. He has no complaints. He is happy. He has had sectorial laser retinopexy to both eyes. Kristofer pointed out to me with the fluorescein angiogram that the blood in his right eye is better! There is no real preretinal blood in the left eye. We are going to observe. We will see him back in 2 months or sooner if any problems. He will work hard to stay as healthy as he possibly can. He notices decreased vision or new floaters or any problems, he will come back sooner Exam: See note ?? Assessment/plan: 1. Peripheral areas of ischemic retina with intraretinal hemorrhages, neovascularization in both eyes and preretinal hemorrhage, right eye, with sickle cell retinopathy like appearance. 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 Would also consider type 2 diabetes with proliferative diabetic changes and ocular acute occlusive disease -observe -return to clinic in 2 months with dilated fundus exam and OCT in both eyes and OPTOS's autofluorescence and color photographs ?? 2. History of photopsias: -being worked up by neuro today ?? 3. Early cataracts, OU: -sunglasses when outdoors ?? Plan: -happy holidays! -return to clinic in 2 months with OPTOS color photographs and autofluorescence and OCT or sooner ifany problems -sunglasses when outdoors ONNEL SPECIALIST documented in this encounter Miscellaneous Notes Addendum Note - Nicki North, C.O.A. - 04/03/2021 1:30 PM PERSONNEL SPECIALIST Addended by: NICKI NORTH on: 04/03/2021 03:54 PM Modules accepted: Orders ONNEL SPECIALIST documented in this encounter Plan of Treatment Scheduled Referrals Name Type Priority Associated Order Schedule Diagnoses Ophthalmology office Outpatient Referral Routine Expected: visit (clinic) 06/03/2021, Expires: 04/03/2024 documented as of this encounter Procedures Procedure Name Priority Date/Time Associated Diagnosis Comme nts FUNDUS PHOTOS - OU Routine 04/03/2021 2:08 PM Diabetes Mellitu s Type Results for this - BOTH EYES PERSONNEL SPECIALIST 2 With Proliferative procedu re are in Diabetic Retinopathy the res ults With Macular Edema section. Hypoglycemic Right Eye (HCC) Hemorrhage Vitreous Right (HCC) Hemorrhage Retinal Bilateral documented in this encounter Results Optical Coherence Tomography (OCT) - Macula/Retina - OU - Both Eyes (06/05/2021 3:53 PM PERSONNEL SPECIALIST) Analysis Performed At Patho logist Time Signature CMT L Microns 258 um OPHTHALMOLOGY IMAGING EXAM CMT R Microns 260 um OPHTHALMOLOGY IMAGING EXAM Specimen (Source) Anatomical Location Collection Method / Collectio n Time Received Time / Laterality Volume Narrative OPHTHALMOLOGY IMAGING EXAM - 06/05/19 22 4:09 PM PERSONNEL SPECIALIST Right Eye Reliability was good. OCT device used [facility] . Central macular thickness 260 um. Left Eye Reliability was good. OCT device used [facility] [employer] [facility] . Central macular thickness 258 um. Notes right eye: normal contour, no irf or srf left eye: normal contour, stable Jose Herman M.D. OPHTH TOMOGRAPHY Performing Organization Address [facility] [place] Phon e Number OPHTHALMOLOGY IMAGING EXAM Fundus Photos - OU - Both Eyes (06/05/2021 3:44 PM PERSONNEL SPECIALIST) Specimen (Source) Anatomical Location Collection Method / Collectio n Time Received Time / Laterality Volume Narrative OPHTHALMOLOGY IMAGING EXAM - 06/05/19 22 4:11 PM PERSONNEL SPECIALIST Right Eye Field of view is ultra-wide [...] Herman M.D. OPHTH PHOTOGRAPHY Performing Organization Address [facility] [place] Phon e Number OPHTHALMOLOGY IMAGING EXAM Fundus Photos - OU - Both Eyes (04/03/2021 2:08 PM PERSONNEL SPECIALIST) Specimen (Source) Anatomical Location Collection Method / Collectio n Time Received Time / Laterality Volume Narrative OPHTHALMOLOGY IMAGING EXAM - 04/03/20 21 2:08 PM PERSONNEL SPECIALIST Color photograph, right eye: ??The cup to [...] Herman M.D. 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
--- OUTSIDE RECORDS SUMMARY | 2022-03-26 22:24 | XMS_ITS | Encounter Summary ---
:1935 Author Organization [facility] Address [address] [place] [id number] Care Team Providers Name Role Phone Elsewhere, Pcp Primary Care Provider Unavailable Reason for Referral Speech Pathology (Routine) - Closed Specialty Diagnoses / Procedures Referred By Contact Refer red To Contact Diagnoses René Rivera M.D. [facility] Procedures SHUTTLER CAR Voice evaluation [address] [place] [phone] Referral ID Status Reason Start Date Expiration Date Visits Requ ested Visits Authorized [id number] Closed 02/11/2021 02/11/2022 99 99 utpatient (Routine) - Closed Specialty Diagnoses / Procedures Referred By Contact Refer red To Contact Otorhinolaryngology Diagnoses René Rivera M.D. [facility] [address] [place] [address] Referral ID Status Reason Start Date Expiration Date Visits Requ ested Visits Authorized [id number] Closed 02/11/2021 02/11/2022 1 1 Reason for Visit Outpatient (Routine) - Closed Specialty Diagnoses / Procedures Referred By Contact Refer red To Contact Cardiovascular Disease Diagnoses Coronary Stent Status Post Nelly Jeong [facility] [employer]IP[employer] ETCHER, C.N.P. [address] [place] [phone] Referral ID Status Reason Start Date Expiration Date Visits Requ ested Visits Authorized [id number] Closed 01/11/2021 01/11/2022 1 1 Encounter Details Date Type Department Care Team Description 02/11/2021 Office Visit Department of René Robert Hoarseness (Primary Dx); Cardiovascular Medicine Maddie Coronary Stent Status Post in [facility] [address] [place] [phone] Social History Tobacco Use Types Packs/Day Years [...] you attend christianity or Patient refused 2021 adventism services? Do you belong to any clubs [...] minutes do you engage in exercise at is 30 min 12/31/2021 level? Stress Answer [...] Sign Reading Time Taken Comments Blood Pressure 171/68 02/11/2021 8:13 AM CDT Pulse 73 02/11/2021 8:13 AM CDT Temperature - - Respiratory Rate - - Oxygen Saturation - - Inhaled Oxygen Concentration - - Weight 101 kg (223 lb 12.3 oz) 02/11/2021 8:13 AM CDT Height 172.7 cm (5' 7.99) 02/11/2021 8:13 AM CDT Body Mass Index 34.03 02/11/2021 8:13 AM CDT documented in this encounter H&P Notes René Robert M.D. - 02/11/2021 8:15 AM CDT REFERRAL SOURCE [facility] ?? CHIEF COMPLAINT / REASON FOR VISIT Review progress after PTCA for coronary disease ?? HISTORY OF PRESENT ILLNESS Mr. Garcia underwent cardiac catheterization for evaluation of his exertional dyspnea and at the time was found to have significant lesions involving the left anterior descending artery, diagonal branch as well as the circumflex artery and underwent successful percutaneous coronary intervention of two circumflex lesions in the mid LAD lesion. The diagonal lesion was not approached. He also had quite significant elevation of his systolic blood pressure as well as left ventricular end-diastolic pressure during the procedure. At home, he has been able to increase his physical activity and is now walking farther on his treadmill. He still walks about 1.5 mph on a flat grade but he can do about 30% more activity now than previously. He notes that his blood pressure at home is usually in the 130s but there are times when he may be over 140 or even over 150. He is not having excessively low blood pressures. Heart rates are usually in the high 50 these to low 60s at rest and are 90 after he finishes exercise. He has been doing a cardiac rehab program in [place]. He also raises concern about a persistent cough that produces a thicker phlegm in the morning. He has noticed as well some increasing hoarseness but he has not lost his voice completely. The following portions of the patient's history were reviewed and updated as appropriate: allergies,current medications, family history, medical history, social history, surgical history, psychiatric history, substance abuse history, problem list, labs, diagnostics tests.. I also reviewed pertinent clinical notes in the electronic health record. REVIEW OF SYSTEMS A comprehensive review of systems was completed; pertinent abnormalities are included in the Historyof Present Illness. MEDICATIONS Current Medications: ??? ascorbic acid, vitamin C, (ascorbic acid with mildred hips) 500 mg tablet, Take 1 tablet by mouth daily. ??? atorvastatin (LIPITOR) 20 mg tablet, Take 20 mg by mouth at bedtime. ??? carvediloL (COREG) 25 mg tablet, Take 25 mg by mouth 2 (two) times a day with meals. ??? clopidogreL (PLAVIX) 75 mg tablet, Take 1 tablet (75 mg total) by mouth daily. ??? DME CPAP, DME Order ??? Eliquis 5 mg tablet, 5 mg 2 (two) times a day. ??? glimepiride (AMARYL) 2 mg tablet, Take 2 mg by mouth daily with breakfast. ??? omega-3 fatty acids/fish oil (OMEGA 3 FISH OIL ORAL), Take 1 capsule by mouth daily. ??? pantoprazole (PROTONIX) 40 mg EC tablet, Take 1 tablet (40 mg total) by mouth every morning before breakfast. ??? silver sulfADIAZINE (SILVADENE, SSD) 1 % cream, Apply 1 application topically as needed. ??? triamcinolone (KENALOG) 0.1 % cream, Apply 1 application topically as needed. ??? valsartan (DIOVAN) 320 mg tablet, Take 320 mg by mouth daily. ??? vitamin E 400 unit capsule, Take 1 capsule by mouth daily. ??? spironolactone (ALDACTONE) 25 mg tablet, Take 0.5 tablets (12.5 mg total) by mouth daily. Current Medications: ??? fluorescein 500 mg/5 mL (10 %) injection 500 mg (AK-FLUOR/FLUORESCEIN), Once Mr. Kristofer Garcia had no medications administered during this visit. Current Outpatient Medications Medication Sig Dispense Refill [...] Apply 1 application topically as needed. ??? triamcinolone (KENALOG) 0.1 % cream Apply 1 application topically as needed. ??? valsartan (DIOVAN) 320 mg tablet Take 320 mg by mouth daily. ??? vitamin E 400 unit capsule Take 1 capsule by mouth daily. ??? spironolactone (ALDACTONE) 25 mg tablet Take 0.5 tablets (12.5 mg total) by mouth daily. 15 tablet 11 VITALS Blood Pressure: 171/68 Height: 172.7 cm Weight: 101 kg BMI (Calculated): 34 kg/m?? DIAGNOSTIC REVIEW All labs and diagnostic studies were reviewed. ?? ASSESSMENT / PLAN #1 Coronary Stent Status Post #2 Hoarseness His progress since his stenting is actually quite good. We had a long discussion about the nature ofhis coronary disease as well as the other findings with catheterization that could suggest underlying heart failure with preserved ejection fraction. We discussed the importance of maintaining good blood pressure control with a target blood pressure 100 20-140 and resting pulse rates in the low 60s. We will add a small dose of spironolactone, 12.5 mg daily, to see if we can get his blood pressure more consistently under 140. He is bothered by the hoarseness and cough. I reviewed with him is CT scans which showed the interstitial lung disease that we had talked about previously. For now, we will also be grateful for the consultation and examination of our colleagues in Ear Nose and Throat for evaluation of the larynx and upper airway. 30 minutes total time René Robert M.D. 02/11/2021 documented in this encounter Plan of Treatment Scheduled Referrals Name Type Priority Associated Order Schedule Diagnoses Otorhinolaryngology - Outpatient Routine Hoarseness Expect ed: Laryngology and voice Referral 2020 disorders consult (clinic) ( Approximate), Expires: 02/12/2024 documented as of this encounter Visit Diagnoses Diagnosis Hoarseness - Primary Coronary Stent Status Post documented in this encounter Care Teams Licensed Loan Officer Relationship Specialty Start Date End Date Elsewhere, Pcp PCP - General Family Medicine 01/10/21 documented as of this encounter
--- OUTSIDE RECORDS SUMMARY | 2022-03-26 22:24 | XMS_ITS | Encounter Summary ---
:1935 Author Organization [facility] Address [address] [place] [address] Care Team Providers Name Role Phone Unavailable Primary Care Provider Unavailable Reason for Visit Outpatient (Routine) - Closed Specialty Diagnoses / Procedures Referred By Contact Refer red To Contact Neurology Sirisha López M .D., Ph.D. [facility] [address] [place] [phone] Referral ID Status Reason Start Date Expiration Date Visits Requ ested Visits Authorized [id number] Closed 01/01/2021 01/01/2022 1 1 Encounter Details Date Type Department Care Team Description 01/08/2021 Office Visit Department of Sirisha López Migraine He adache With Aura (Primary Dx); Neurology mayda Barr M.D., Ph.D. 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 Do you belong to any clubs [...] place to sleep or slept in a correction (including now)? Sex Assigned at Date Recorded Male 12/31/2021 3:41 PM CDT documented as of this encounter Consult Notes Sirisha López M.D., Ph.D. - 01/08/2021 10:30 AM CDT Neurology Clinic Note: Subjective: He is having improvement in his auras, has not had one in the last 8 days since starting the mg. He also feels that his shortness of breath and hoarseness has improved. Objective: Unchanged from prior, deferred complete exam. Assessment/Plan: Mr. Kristofer Garcia is a 85 y.o. right-handed male from [place], [place] referred by Dr. [facility] for question of migraine equivalent vs. amaurosis fugax. 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 ESR and CRP were normal. 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 Given these findings, I recommend: -stop aspirin 325 mg -continue apixaban 5 mg bid #Migraine with visual aura - If these aureas become too bothersome to patient, can consider propranolol or verapamil preventative therapy. ---given his cardiac comorbidities, it is best for his PCP or internet merchant to titrate these medications to monitor his [...] resolved -Follow with ophthalmology if these recur. I have completed my evaluation and made my recommendations. The patient will follow up with their primary provider. This case was discussed with Dr. Amezcua via email. I personally spent over half of a total 20 minutes face to face with the patient in counseling and discussion and/or coordination of care as described above. 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
--- OUTSIDE RECORDS SUMMARY | 2022-03-26 22:24 | XMS_ITS | Encounter Summary ---
:1935 Author Organization [facility] Address [address] [place] [id number] Care Team Providers Name Role Phone Elsewhere, Pcp Primary Care Provider Unavailable Reason for Referral Medication Prior Authorization - Authorized Specialty Diagnoses / Procedures Referred By Contact Refer red To Contact Nelly Jeong A PRN, C.N.P. [address] [place] [phone] Referral ID Status Reason Start Date Expiration Date Visits V isits Requested Authorized [id number] Authorized 03/09/2021 04/08/2022 1 1 Outpatient (Routine) - Closed Specialty Diagnoses / Procedures Referred By Contact Refer red To Contact Diagnoses Coronary Stent Status Post René Robert M.D. [address] [place] [phone] Referral ID Status Reason Start Date Expiration Visits Visits Date Requested Authorized [id number] Closed Continuity of 01/10/2021 01/10/2022 1 1 Care Encounter Details Date Type Department Care Team Description 01/10/2021 - Hospital Encounter [facility] René Robert Coron ary Stent Status Post (Primary Dx); 01/11/2021 [facility] Maddie Dyspnea On Exertion [facility] [address] [place], [place] Fourth Floor [phone] [place] [address] [place], [place] (Work) [phone] Social History Tobacco Use Types Packs/Day Years [...] you attend rastafari or Patient refused 2021 mosque services? Do you belong to any clubs or No 12/31/2021 organizations such as rastafari groups, unions, fraternal or athletic groups, or [...] or slept in a residential (including now)? Sex Assigned at Date Recorded Male 12/31/2021 3:41 PM CDT documented as of this encounter Last Filed Vital Signs Vital Sign Reading Time Taken Comments Blood Pressure 160/56 01/11/2021 8:23 AM CDT Pulse 69 01/11/2021 5:15 AM CDT Temperature 36.8 ??C (98.2 ??F) 01/11/2021 11:15 AM CDT Respiratory Rate 22 01/11/2021 6:45 AM CDT Oxygen Saturation 95% 01/11/2021 11:15 AM CDT Inhaled Oxygen Concentration - - Weight 99.6 kg (219 lb 9.3 oz) 01/10/2021 7:25 AM CDT Height 172.7 cm (5' 7.99) 01/10/2021 7:25 AM CDT Body Mass Index 33.39 01/10/2021 7:25 AM CDT documented in this encounter Discharge Summaries Nelly Jeong APRN, C.N.P. - 01/11/2021 9:51 AM CDT INTERVENTIONAL CARDIOLOGY DISCHARGE SUMMARY DATE OF ADMISSION: 01/10/2021 DATE OF DISCHARGE: 01/11/21 Discharge Provider: René Robert M.D. 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 male who is status post successful PCI with drug eluting stenting to the mid LAD, proximal circumflex and OM1 arteries in a procedure yesterday performed by Dr. Goldberg. There were no procedural complications. Please see the post-procedure note for complete details.Access via right radial and right femoral artery's. Mr. Garcia has a past medical history significant for known coronary artery disease, hypertension, chronic lymphocytic leukemia, interstitial lung disease, diabetes type 2, moderate aortic stenosis. He has recently been experiencing a decline in his stamina, exertional dyspnea and intermittent chest discomfort in addition to visual disturbances that is being followed closely by opthalmology. Post-procedurally, hypertension was managed with IV hydralazine in addition to his normal oral agents. Access sites remained stable and patient has ambulated without difficulty. This morning he is feeling well and denies chest pain and shortness of breath. Blood pressure stable. Will discharge home accompanied by family. Recent Results (from the past 24 hour(s)) ACT (Activated Clotting Time), POCT Collection Time: 01/10/21 10:07 AM Result Value Activated Clotting Time, POCT 224 (H) ACT (Activated Clotting Time), POCT Collection Time: 01/10/21 10:44 AM Result Value Activated Clotting Time, POCT 245 (H) ACT (Activated Clotting Time), POCT Collection Time: 01/10/21 11:27 AM Result Value Activated Clotting Time, POCT 235 (H) Glucose, POCT Collection Time: 01/10/21 2:04 PM Result Value Glucose, POCT, B 116 Site Capillary Last Intake > 4 hours Basic Metabolic Panel Collection Time: 01/10/21 4:14 PM Result Value Potassium, S 4.0 Sodium, S 141 Chloride, S 107 Bicarbonate, S 24 Anion Gap 10 BUN (Blood Urea Nitrogen), S 17 Creatinine, S 1.02 eGFR-Non Black/ 67 eGFR-Black/ 77 Calcium, Total, S 9.0 Glucose, S 136 Glucose, POCT Collection Time: 01/10/21 6:03 PM Result Value Glucose, POCT, B 119 Site Capillary Last Intake 3-4 hours TEST RESULTS PENDING AT DISCHARGE: Pending Labs None PHYSICAL EXAM General: Alert and oriented, no acute distress Cardiac: S1 and S2 regular, murmur present Lungs: Diminished bilaterally. Fine crackles throughout Extremeties: Trace edema bilaterally, pedal pulses present Wounds: Right IJ, left radial, right femoral dressings dry and intact, no hematoma DISMISSAL MEDICATIONS Discharge Medications TAKE these medications ascorbic acid with mildred hips 500 mg tablet Take 1 tablet by mouth daily. Generic drug: ascorbic acid (vitamin C) atorvastatin 20 mg tablet Commonly known as: LIPITOR Take 20 mg by mouth at bedtime. carvediloL 25 mg tablet Commonly known as: COREG Take 25 mg by mouth 2 (two) times a day with meals. clopidogreL 75 mg tablet Commonly known as: PLAVIX Take 1 tablet (75 mg total) by mouth daily. DME CPAP DME Order Eliquis 5 mg tablet 5 mg 2 (two) times a day. Generic drug: apixaban glimepiride 2 mg tablet Commonly known as: AMARYL Take 2 mg by mouth daily with breakfast. OMEGA 3 FISH OIL ORAL Take 1 capsule by mouth daily. pantoprazole 40 mg EC tablet Commonly known as: PROTONIX Take 1 tablet (40 mg total) by mouth every morning before breakfast. silver sulfADIAZINE 1 % cream Commonly known as: SILVADENE, SSD Apply 1 application topically as needed. triamcinolone 0.1 % cream Commonly known as: KENALOG Apply 1 application topically as needed. valsartan 320 mg tablet Commonly known as: DIOVAN Take 320 mg by mouth daily. vitamin E 400 unit capsule Take 1 capsule by mouth daily. DISCHARGE DISPOSITION: Home or Self Care [1] CONDITION ON DISCHARGE: Stable. DIET AT DISCHARGE: LOW-FAT, LOW-CHOLESTEROL DIET FOLLOW-UP APPOINTMENTS Scheduled Appointments 01/16/2021 3:30 PM OPH VISUAL ACUITY TECH 01 [facility] Ophthalmology 01/16/2021 4:00 PM Jose Herman M.D. Ophthalmology For appointment details refer to your Patient Appointment Guide. RECOMMENDATIONS FOR FOLLOW-UP APPOINTMENTS - Plavix x 6 month course - Resume Eliquis - Hold aspirin until Plavix course complete - Recommend seeing Primary Care Provider within one week - Assess access site(s) for healing - Check electrolytes including creatinine - Adjust antihypertensive agents as needed - A Cardiac Rehabilitation referral has been made for you, they will be contacting you MARGIN CODE I personally spent total time of 35 minutes with >50% spent with counseling/coordination of care,independent from other providers on our team. Electronically signed by: Nelly Jeong APRN, C.N.P. 01/11/21 9:52 AM CDT documented in this encounter Discharge Instructions Discharge InstructionsBrigida Pacheco - 01/10/2021 12:31 PM CDT You were discharged from the [facility] CVD Interventional/Cath Service. Please identify this service name if you call with questions after hospitalization. AttachmentsThe following attachments cannot be sent through Care Everywhere. Pantoprazole (By mouth) (Serbian)documented in this encounter Medications at Time of [...] tablet (two) times a day with meals. omega-3 fatty acids/fish Take 1 capsule by 0 10/2016 oil (OMEGA 3 FISH OIL mouth daily. ORAL) valsartan (DIOVAN) 320 Take 320 mg by mouth 0 10/2019 mg tablet daily. vitamin E 400 unit Take 1 capsule by 0 10/01/2011 capsule mouth daily. DME CPAP DME Order 0 Eliquis 5 mg tablet 5 mg 2 (two) times a 0 2019 day. pantoprazole (PROTONIX) Take 1 tablet (40 mg 90 tablet 3 40 mg EC tablet total) by mouth every morning before breakfast. silver sulfADIAZINE Apply 1 application 0 019 (SILVADENE, SSD) 1 % topically as needed. cream triamcinolone (KENALOG) Apply 1 application 0 08/2020 0.1 % cream topically as needed. glimepiride (AMARYL) 2 Take 2 mg by mouth 0 11/05/2021 mg tablet daily with breakfast. clopidogreL (PLAVIX) 75 Take 1 tablet (75 mg 90 tablet 1 07/10/2021 mg tablet total) by mouth daily. documented as of this encounter Progress Notes Nelly Jeong APRN, C.N.P. - 01/10/2021 4:06 PM CDT HISTORY OF PRESENT ILLNESS Kristofer Garcia is a 85 y.o. male who is status post successful PCI with drug eluting stenting to the mid LAD, proximal circumflex and OM1 arteries in a procedure today performed by Dr. Goldberg.There were no procedural complications. Please see the post-procedure note for complete details. Access via right radial and right femoral artery's. Mr. Garcia has a past medical history significant for known coronary artery disease, hypertension, chronic lymphocytic leukemia, interstitial lung disease, diabetes type 2, moderate aortic stenosis. He has recently been experiencing a decline in his stamina, exertional dyspnea and intermittent chest discomfort in addition to visual disturbances that is being followed closely by opthalmology. Post-procedurally, Kristofer Garcia is feeling well. Denies chest pain or shortness of breath. Blood pressure significantly elevated despite having routine orals on board. IV hydralazine given x 2 with improvement noted. OBJECTIVE Temperature: [36.8 ??C-37.2 ??C] 36.8 ??C Heart Rate: [0-86] 62 Resp Rate: [13-23] 21 Blood Pressure: (114-209)/(50-90) 148/65 Arterial Line BP: (-3-187)/(-28-65) 2/-1 FiO2 (%): [20 %-28 %] 20 % SpO2: [91 %-99 %] 96 % Flow Rate (L/min): [2 L/min] 2 L/min Pulse Rate: [59-87] 62 PHYSICAL EXAM General: Alert and oriented, no acute distress Cardiac: S1 and S1 regular Lungs: Clear to auscultation bilaterally Extremeties: No edema bilaterally, pedal pulses present Wounds: Dressing dry and intact, no hematoma Access: 8Fr RIJ, 6Fr LFA (TR band in place), 6Fr RFA ASSESSMENT / PLAN Hospital Problems as of 01/10/2021 1. * (Principal) Dyspnea On Exertion Added automatically from request for surgery [id number] 2. Atherosclerotic Heart Disease [place] Coronary Artery With Other Forms Angina Pectoris (Angina Equivalent) ([facility]) 3. Coronary Stent Status Post 4. 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 Glomerular Filtration Rate (GFR) 45 To 59 ([facility]) 5. Diabetes Mellitus Type 2 ([facility]) 6. Stenosis Aortic Valve Acquired 7. 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 Lung Interstitial Disease ([facility]) 9. Migraine Headache With Aura - Remove femoral sheath when ACT 200 or less - Bedrest per protocol - Anticoagulation plan as follows: ASA x 3 days then hold till Plavix course complete Plavix x 6 months Resume Eliquis tomorrow and continue lifelong - IV hydralazine for SBP >160 - Recheck BMP. K+ from blood gas during RHC revealed hypokalemia. Will recheck for confirmation - Pending any complications, anticipate dismissal from the hospital tomorrow morning Follow up Plan: PCP next week Prescriptions: Plavix sent to pharmacy Plan discussed with patient and family. Questions were answered to the best of my ability. Will continue to follow closely. Electronically signed by: Nelly Jeong APRN, C.N.P. 01/10/21 4:06 PM CDT Frank Goldberg M.D. - 01/10/2021 11:59 AM CDT Successful PCI performed with drug-eluting stents to mid LAD and circumflex arteries with excellent results and normal flow. Ostial diagonal lesion not intervened upon. 250 mL contrast given. Access sites closed and dry at the close of the case. Plan: Overnight stay, dual anti-platelet therapy, follow-up with Dr. René Robert. Thank you. documented in this encounter H&P Notes Jeffery Arroyo M.D., Ph.D. - 01/10/2021 8:00 AM CDT INTERVAL HISTORY AND PHYSICAL PRE-PROCEDURE UPDATE H&P reviewed. The patient was examined and there are no significant changes to the H&P. SEDATION ASSESSMENT Anesthesia monitored Jeffery Arroyo M.D., Ph.D. Source Note - René Robert M.D. - 12/31/2020 10:15 AM CDT REFERRAL SOURCE Dung Barry M.B., Ch.B. [address] [place] [phone] CHIEF COMPLAINT / REASON FOR VISIT Dyspnea on exertion, increasing fatigue, visual disturbance ?? HISTORY OF PRESENT ILLNESS Mr. Garcia has been experiencing declining stamina and endurance now for more than a year. Specifically, he has been having to slow down the speed of his treadmill from about 3 miles an hour to about 1.7 mph during his 20 minutes workout that he does 3 times a week. He has also begun to experience more symptoms of exertional dyspnea as well as some intermittent left chest discomfort. He has alsonoticed increasingly worsening symptoms of peripheral edema and some occasional cough. He has been evaluated previously with radionuclide scans that have shown inferior and inferoapical defects but hasnot had the recent coronary angiogram. He had a coronary angiogram done in [place] in 2012 and a subsequent coronary angiogram was done at [facility] in [place]. The latter was done probably several years ago but we do not have a report from it. 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 He has been treated for years for hypertension and notes that at home, his systolic blood pressures usually run about 130 systolic. He has not been seeing significant elevations above 140 mm of systolic by his description. Lately, he has noticed increasing symptoms of visual disturbance. One of these happened last week and again this morning where he will suddenly lose vision in the lateral half of his right visual field. This lasts for a few seconds where his visual turn completely jeong and then over a period of a minute and a half or little longer, he notices that the jeong sensation will gradually break-up and that his vision will return after period of significant blurring. 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 It was advised that he have a more detailed opht halmological examination and a referral was apparently made to [facility] for urgent evaluation. He has known chronic lymphocytic leukemia that has been stable. Dr. Gordon has been following this carefully. The following portions of the patient's history were reviewed and updated as appropriate: allergies,current medications, family history, medical history, social history, surgical history, psychiatric history, substance abuse history, problem list, labs, diagnostics tests. I also reviewed pertinent clinical notes in the electronic health record. REVIEW OF SYSTEMS A comprehensive review of systems was completed; pertinent abnormalities are included in the Historyof Present Illness. MEDICATIONS Current Medications: ??? ascorbic acid, vitamin C, (ascorbic acid with mildred hips) 500 mg tablet, Take 1 tablet by mouth daily. ??? atorvastatin (LIPITOR) 20 mg tablet, Take 20 mg by mouth. ??? carvediloL (COREG) 25 mg tablet, Take 25 mg by mouth 2 (two) times a day with meals. ??? DME CPAP, DME Order ??? Eliquis 5 mg tablet, 5 mg 2 (two) times a day. ??? glimepiride (AMARYL) 2 mg tablet, Take 2 mg by mouth daily with breakfast. ??? omega-3 fatty acids/fish oil (OMEGA 3 FISH OIL ORAL), Take 1 capsule by mouth daily. ??? omeprazole (PriLOSEC) 20 mg capsule, Take 1 capsule by mouth 2 (two) times a day. ??? silver sulfADIAZINE (SILVADENE, SSD) 1 % cream, Apply 1 application topically as needed. ??? triamcinolone (KENALOG) 0.1 % cream, Apply 1 application topically as needed. ??? valsartan (DIOVAN) 320 mg tablet, Take 320 mg by mouth daily. ??? vitamin E 400 unit capsule, Take 1 capsule by mouth daily. ??? atorvastatin (LIPITOR) 40 mg tablet, Take 0.5 tablets by mouth daily. ??? salmon oil/omega-3 fatty acids (SALMON OIL-1000 ORAL), Take 1 tablet by mouth daily. .meds VITALS Blood Pressure: 169/63 Height: 173.9 cm Weight: 100 kg BMI (Calculated): 33.1 kg/m?? DIAGNOSTIC REVIEW All labs and diagnostic studies were reviewed. Our most recent echocardiogram shows ??A normal ejection fraction with a slight elevation of right ventricular systolic pressure and signs of moderate aortic stenosis. The left atrium is moderately enlarged. His proBNP is moderately elevated. The chest x-rays interpreted by our radiologists suggesting the possibility of an interstitial caty ng disease. His blood studies otherwise show normal electrolytes with stable renal function as well as stable red counts and white counts. 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 The most significant urgent consideration is clarification of the etiology of his amaurosis. We will request consultation from our colleagues in Ophthalmology in Neurology for further evaluation of his symptoms. From the perspective of the symptoms of declining exercise capacity and dyspnea, the most likely explanation is heart failure with preserved ejection fraction but contributing factors of epicardial coronary disease, small vessel coronary disease and valvular disease from his aortic stenosis are all considerations. I doubt that he has pulmonary embolism. The blood counts being stable also mean that levon not have to worry about anemia as a contributing factor. The interstitial lung disease noted on his chest x-ray might be a consideration but he tells me that he has an oximeter at home that he oftenuses to check his oxygen saturation and that he has not seen an oxygen saturation below 90 even after working on his treadmill. For now, while we work through the question of his amaurosis and visual aura, we will also obtain a CT of the chest for further evaluation of the interstitial lung disease. Then, we will proceed with further cardiac evaluation. Right and left heart catheterization with exercise would be the best studybut with his history of a possible complication of his prior angiogram, we will have to clarify thisfirst. René Robert M.D. 12/31/2020 ?? documented in this encounter Consult Notes Valente Rincon RCEP - 01/10/2021 12:54 PM CDTAssociated Order(s): IP CONSULT TO CARDIAC REHABILITATION Cardiac Rehabilitation Referral Reason for Visit: [facility] consultation for referral to cardiac rehabilitation. Liaison met with the patient/family to discuss cardiac rehabilitation referral. Patient/family was provided with progressive verbal and printed home-going exercise guidelines. Patient/family understands and agrees with the exercise guidelines. 1. Participation in a Phase II cardiac rehabilitation program is recommended. Patient was informed about what cardiac rehabilitation has to offer and why it is beneficial. The plan of care for the rehabilitation program consists of risk factor modification, monitored and supervised exercise and assistance in the recovery process with ongoing education and support. Patient is interested in attending acardiac rehabilitation program. 2. Eligibility: PCI 3. Exceptions/exclusions: None. 4. Referral: Patient agreed with referral to a cardiac rehabilitation program. Please see discharge order and/or letter for program details. [facility]iac [facility] [address] [place] [address] 5. Appropriate referral information will be sent to the receiving cardiac rehabilitation program as applicable. Patient provided verbal authorization to send relevant materials to the cardiac rehab program. Recommend that the patient check with insurance company to verify coverage of the cost of cardiac rehabilitation program visits. Patient Education/Questionnaires sent via Patient Portal: None documented in this encounter Nursing Notes Jennifer Best R.N. - 01/11/2021 11:07 AM CDT Shift Goals: Clinical Goals for the Shift: Pt will remain hemodynamically stable Identify possible barriers to meeting goals/advancing plan of care: none End of Shift Summary: Patient VSS, site instructions reviewed. All questions answered. documented in this encounter Miscellaneous Notes Hospital Course - Nelly Jeong APRN, C.N.P. - 01/10/2021 4:15 PM CDT Kristofer Garcia is a 85 y.o. male who is status post successful PCI with drug eluting stenting to the mid LAD, proximal circumflex and OM1 arteries in a procedure yesterday performed by Dr. Goldberg. There were no procedural complications. Please see the post-procedure note for complete details.Access via right radial and right femoral artery's. Mr. Garcia has a past medical history significant for known coronary artery disease, hypertension, chronic lymphocytic leukemia, interstitial lung disease, diabetes type 2, moderate aortic stenosis. He has recently been experiencing a decline in his stamina, exertional dyspnea and intermittent chest discomfort in addition to visual disturbances that is being followed closely by opthalmology. Post-procedurally, hypertension was managed with IV hydralazine in addition to his normal oral agents. Access sites remained stable and patient has ambulated without difficulty. This morning he is feeling well and denies chest pain and shortness of breath. Blood pressure stable. Will discharge home accompanied by family. documented in this encounter Plan of Treatment Scheduled Referrals Name Type Priority Associated Diagnoses Order S [facility] External referral Outpatient Referral Routine Coronary Stent O rdered: cardiac rehab Status Post 01/10/2021 program (non-[facility]) documented as of this encounter Procedures Procedure Name Priority Date/Time Associated Comments Diagnosis GLUCOSE POCT, B Routine 01/10/2021 6:03 Results f or this PM CDT procedure are i n the results section. BASIC METABOLIC PANEL, Timed 01/10/2021 4:14 Re sults for this S/P PM CDT procedure are i n the results section. GLUCOSE POCT, B Routine 01/10/2021 2:04 Results f or this PM CDT procedure are i n the results section. ADULT OXYGEN THERAPY Routine 01/10/2021 12:05 PM CDT ADULT OXYGEN THERAPY Routine 01/10/2021 12:05 PM CDT CARDIAC CATHETERIZATION Routine 01/10/2021 11:33 Dyspnea On Results for this AM CDT Exertion procedure are i n the results section. CARDIAC CATHETERIZATION Routine 01/10/2021 11:33 Dyspnea On Results for this AM CDT Exertion procedure are i n the results section. CARDIAC CATHETERIZATION Routine 01/10/2021 11:33 Dyspnea On Results for this AM CDT Exertion procedure are i n the results section. CARDIAC CATHETERIZATION Routine 01/10/2021 11:33 Dyspnea On Results for this AM CDT Exertion procedure are i n the results section. CARDIAC CATHETERIZATION Routine 01/10/2021 11:33 Dyspnea On Results for this AM CDT Exertion procedure are i n the results section. ACT, POCT, B Routine 01/10/2021 11:27 Results for this AM CDT procedure are i n the results section. ACT, POCT, B Routine 01/10/2021 10:44 Results for this AM CDT procedure are i n the results section. ACT, POCT, B Routine 01/10/2021 10:07 Results for this AM CDT procedure are i n the results section. ABG AND LYTES EG6+, Routine 01/10/2021 9:37 Resul ts for this POCT, B AM CDT procedure are i n the results section. GLUCOSE POCT, B Routine 01/10/2021 7:36 Results f or this AM CDT procedure are i n the results section. documented in this encounter Results Glucose, POCT (01/10/2021 6:03 PM CDT) Analysis Performed At Patho logist Time Signature Glucose, POCT, 119 70 - 140 01/10/2021 PCLX B mg/dL 6:06 PM CDT Site Capillary 01/10/2021 PCLX 6:06 PM CDT Last Intake 3-4 hours 01/10/2021 PCLX 6:06 PM CDT Specimen Anatomical Collection Method Collection Time Receive d Time (Source) Location / / Volume Laterality Blood 01/10/2021 6:03 PM 6:06 CDT PM CDT Unknown Provider LAB POCT ORDERABLES-MANUAL Performing Organization Address City/State/ZIP Code Phon e Number POC [facility] [address] [place] [address] PCLX [facility] [place] [address] [place] POC 200 [facility] Basic Metabolic Panel (01/10/2021 4:14 PM CDT) P athologist Signature Potassium, S 4.0 3.6 - 5.2 01/10/2021 DTL mmol/L 5:14 PM CDT Sodium, S 141 135 - 145 01/10/2021 DTL mmol/L 5:14 PM CDT Chloride, S 107 98 - 107 01/10/2021 DTL mmol/L 5:14 PM CDT Bicarbonate, S 24 22 - 29 01/10/2021 DTL mmol/L 5:14 PM CDT Anion Gap 10 7 - 15 01/10/2021 DTL 5:14 PM CDT BUN (Blood Urea 17 8 - 24 01/10/2021 DTL Nitrogen), S mg/dL 5:14 PM CDT Creatinine 1.02 0.74 - 01/10/2021 DTL 1.35 mg/dL 5:14 PM CDT eGFR-Non 67 >=60 01/10/2021 DTL Black/ mL/min/BSA 5:14 PM CDT [place] Comment: ----ADDITIONAL INFORMATION---- Estimated GFR calculated using the 2009 CKD_EPI creatinine equation. eGFR-Black/ 77 >=60 mL/min/BSA 2020 5:14 PM CDT DTL Comment: ----ADDITIONAL INFORMATION---- Estimated GFR calculated using the 2009 CKD_EPI creatinine equation. Calcium, Total, S 9.0 8.8 - 10.2 mg/dL 01/10/2021 5:14 PM CDT DTL Glucose, S 136 70 - 140 mg/dL 01/10/2021 5:14 PM CDT D TL Specimen Anatomical Collection Method Collection Time Receive d Time (Source) Location / / Volume Laterality Blood (Blood, 01/10/2021 4:14 PM 01/11/20 4:49 Venous) CDT PM CDT Nelly Jeong APRN, C.N.P. LAB BLOOD ADD-ON Performing Organization Address City/State/ZIP Code Phon e Number [facility] - [address] [place], [place] [address] [facility] [place] [address] [facility] [address] Glucose, POCT (01/10/2021 2:04 PM CDT) Analysis Performed At Patho logist Time Signature Glucose, POCT, 116 70 - 140 01/10/2021 PCLX B mg/dL 2:14 PM CDT Site Capillary 01/10/2021 PCLX 2:14 PM CDT Last Intake > 4 hours 01/10/2021 PCLX 2:14 PM CDT Specimen Anatomical Collection Method Collection Time Receive d Time (Source) Location / / Volume Laterality Blood 01/10/2021 2:04 PM 2:14 CDT PM CDT Unknown Provider LAB POCT ORDERABLES-MANUAL Performing Organization Address City/State/ZIP Code Phon e Number POC [facility] [address] [place] [address] PCLX [facility] [place] [address] [place] POC [address] [facility] LEFT HEART CATHETERIZATION, RIGHT HEART CATHETERIZATION, CORONARY ANGIOGRAPHY, PERCUTANEOUS CORONARYANGIOPLASTY, STENT PLACEMENT (01/10/2021 11:33 AM CDT) Anatomical Region Laterality Modality X-Ray Angiography Specimen (Source) Anatomical Collection Method Collection Time Re ceived Time Location / / Volume Laterality 01/10/2021 8:30 AM CDT Narrative 01/10/2021 4:27 PM CDT For the complete report, see the Order-L evel Documents. PROCEDURE TYPES 1. ??HEART CATHETERIZATION - LEFT 2. ??HEART CATHETERIZATION - RIGHT 3. ??CORONARY ANGIOGRAPHY 4. ??PERCUTANEOUS CORONARY ANGIOPLASTY 5. ??CORONARY STENT PLACEMENT FINAL DIAGNOSIS 1. ??Severe coronary artery atherosclero sis 2. ??Successful percutaneous coronary in tervention with drug eluting stent PRE-PROCEDURE DIAGNOSIS 1. ??Dyspnea On Exertion HEMODYNAMICS SUMMARY Normal cardiac output with elevated LV f illing pressures at rest secondary to occlusive coronary artery disease, treated with PCI during the procedure. CORONARY DIAGNOSTIC SUMMARY Coronary artery dominance is right. The proximal left anterior descending ar lucita is 20% obstructed by diffuse disease. The middle left anterior descending shiloh ry is 80% obstructed by diffuse disease and 20% obstructed by diffuse disease. The second diagonal branch is 80% obstru cted by a discrete lesion. The proximal circumflex artery is 70% ob structed by a discrete lesion. The distal circumflex artery is 70% obst ructed by a discrete lesion. The proximal right coronary artery is 30 % obstructed by diffuse disease. The middle right coronary artery is 20% obstructed by a discrete lesion. The distal right coronary artery is 20% obstructed by a discrete lesion and 20% obstructed by a discrete lesion. CORONARY INTERVENTION SUMMARY Successful intervention of the Middle Le ft Anterior Descending Artery. The preintervention stenosis was 80%. The post intervention stenosis was 0%. Devices used include PTCA and Stent. Successful intervention of the Distal Ci rcumflex Artery and the Proximal Circumflex Artery. The preintervention stenosis was 70%. The post intervention stenosis was 0%. Devices used include PTCA and Stent. RADIATION DOSE DATA Procedure cumulative skin dose (mGy): 22 10.52 Procedure cumulative dose area product ( Gy-cm2): 118.97 Fluoro Time (Min): 35.03 CONTRAST DOSE DATA IOHEXOL 350 MG IODINE/ML INTRAVENOUS TODD UTION: 250mL For the complete report, see the Order-L evel Documents. René Robert M.D. CV CARDIAC CATH PROCEDURES (ABNORMAL) ACT (Activated Clotting Time), POCT (01/10/2021 11:27 AM CDT) athologist Signature Activated 235 (H) 84 - 139 01/10/2021 PCSM Clotting Time, sec 11:32 AM CDT POCT Specimen Anatomical Collection Method Collection Time Receive d Time (Source) Location / / Volume Laterality Blood 01/10/2021 11:27 01/10/2021 AM CDT 11:32 AM CDT Unknown Provider LAB POCT ORDERABLES - DEVICE Performing Organization Address City/State/ZIP Code Phon e Number POC [facility] [address] [place], [place] [address] LABS PCSM [facility] [place] [address] [place] POC [address] (ABNORMAL) ACT (Activated Clotting Time), POCT (01/10/2021 10:44 AM CDT) athologist Signature Activated 245 (H) 84 - 139 01/10/2021 PCSM Clotting Time, sec 10:49 AM CDT POCT Specimen Anatomical Collection Method Collection Time Receive d Time (Source) Location / / Volume Laterality Blood 01/10/2021 10:44 01/10/2021 AM CDT 10:50 AM CDT Unknown Provider LAB POCT ORDERABLES - DEVICE Performing Organization Address [facility] Phon e Number POC [facility] IN[facility] [address] [place], [place] [address] [place] [address] [place] POC [address] (ABNORMAL) ACT (Activated Clotting Time), POCT (01/10/2021 10:07 AM CDT) athologist [facility] Activated 224 (H) 84 - 139 01/10/2021 PCSM Clotting Time, sec 10:17 AM CDT POCT Specimen Anatomical Collection Method Collection Time Receive d Time (Source) Location / / Volume Laterality Blood 01/10/2021 10:07 01/10/2021 AM CDT 10:18 AM CDT Unknown Provider LAB POCT ORDERABLES - DEVICE Performing Organization Address [facility] Phon e Number POC [facility] IN[facility]IENT [address] [place], [place] [address] [place] [address] [place] POC [address] [facility] (ABNORMAL) ABG and Lytes, POCT (01/10/2021 9:37 AM CDT) athologist Signature Sample Site, [place] 01/10/2021 PCLX POCT 10:17 AM CDT Comment: ----ADDITIONAL INFORMATION---- Performed at the Point of Care pH, POCT 7.39 7.35 - 7.45 01/10/2021 10:17 AM CDT PCLX Comment: ----ADDITIONAL INFORMATION---- Performed at the Point of Care pCO2, POCT 32 (L) 35 - 48 mm Hg 01/10/2021 10:17 AM CDT P CLX Comment: ----ADDITIONAL INFORMATION---- Performed at the Point of Care pO2, POCT 91 83 - 108 mm Hg 01/10/2021 10:17 AM CDT P CLX Comment: ----ADDITIONAL INFORMATION---- Performed at the Point of Care Base, POCT -6 (L) -2 - 3 mmol/L 01/10/2021 10:17 AM CDT P CLX Comment: ----ADDITIONAL INFORMATION---- Performed at the Point of Care HCO3, POCT 19 (L) 22 - 26 mmol/L 01/10/2021 10:17 AM CDT PCLX Comment: ----ADDITIONAL INFORMATION---- Performed at the Point of Care Sodium, POCT, B 151 (H) 135 - 145 mmol/L 01/10/2021 10:17 AM CDT PCLX Comment: ----ADDITIONAL INFORMATION---- Performed at the Point of Care Potassium, POCT, B 2.5 (CL) 3.6 - 5.2 mmol/L 01/10/2021 10: 17 AM CDT PCLX Comment: ----ADDITIONAL INFORMATION---- Performed at the Point of Care Hematocrit, POCT, B 23.0 (L) 38.3 - 48.6 % 01/10/2021 10:17 AM CDT PCLX Comment: ----ADDITIONAL INFORMATION---- Performed at the Point of Care Specimen Anatomical Collection Method Collection Time Receive d Time (Source) Location / / Volume Laterality Blood 01/10/2021 9:37 AM CDT 10:18 AM CDT Unknown Provider LAB POCT ORDERABLES - DEVICE Performing Organization Address City/[facility] Phon e Number POC [facility] [address] [place] [address] POC 200 [facility] Glucose, POCT (01/10/2021 7:36 AM CDT) Analysis Performed At Patho logist Time Signature Glucose, POCT, 133 70 - 140 01/10/2021 PCLX B mg/dL 7:49 AM CDT Site Capillary 01/10/2021 PCLX 7:49 AM CDT Specimen Anatomical Collection Method Collection Time Receive d Time (Source) Location / / Volume Laterality Blood 01/10/2021 7:36 AM 7:49 CDT AM CDT Unknown Provider LAB POCT ORDERABLES-MANUAL Performing Organization Address City/[facility] Phon e Number POC [facility] [address] [place] [address] POC 200 [facility] documented in this encounter Visit Diagnoses Diagnosis Dyspnea On Exertion - Primary Dyspnea On Exertion 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) Lung Interstitial Disease (HCC) Migraine Headache With Aura Stenosis Aortic Valve Acquired Atherosclerotic Heart Disease [place] Cor onary Artery With Other Forms Angina Pectoris (Angina Equivalent) (HCC) 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) Dyspnea On Exertion documented in this encounter Admitting Diagnoses Diagnosis Dyspnea On Exertion documented in this encounter Administered Medications Inactive Administered Medications - up to 3 most recent administrations Medication Order MAR Action Action Date Dose Rate Site acetaminophen tablet 1,000 mg Given 01/11/2021 12:24 AM CDT 1,00 0 mg (TYLENOL) 1,000 mg, oral, Every 6 hours PRN, mild pain or score 1-3 of 10, Starting on Thu01/10/21 at 1202, Postprocedure (CV) apixaban tablet 5 mg (ELIQUIS) Given 01/11/2021 8:22 AM CDT 5 mg 5 mg, oral, 2 times daily, First dose on Thu01/11/21 at 0900 atorvastatin tablet 20 mg (LIPITOR) Given 01/11/2021 8:22 AM CDT 20 mg 20 mg, oral, Daily at bedtime, First dose on Thu01/10/21 at 2100 atropine injection 0.5 mg 0.5 mg, intravenous, Every 5 min PRN, va sovagal, Starting on Thu01/10/21 at 1202, For 4 doses, Postprocedure (CV) candesartan tablet 32 mg (ATACAND) Given 01/11/2021 8:23 AM CDT 32 mg 32 mg, oral, Daily, First dose on Thu01/11/21 at 0900, candesartan 32 mg oral daily was interchanged for valsartan carvediloL tablet 25 mg (COREG) Given 01/11/2021 8:22 AM CDT 25 mg 25 mg, oral, 2 times daily with meals, First dose on Thu01/10/21 at 1700 Given 01/10/2021 4:23 PM CDT 25 mg clopidogreL tablet 75 mg (PLAVIX) Given 01/11/2021 8:22 AM CDT 75 mg 75 mg, oral, Daily, First dose on Thu01/11/21 at 0900 docusate sodium capsule 100 mg (COLACE) 100 mg, oral, 2 times daily PRN, constipation, Startin g on [place] 01/10/21 at 1202, Postprocedure (CV), Do NOT crush or chew. fentaNYL injection 25 mcg (SUBLIMAZE) 25 mcg, intravenous, Once as needed, mod erate pain or score 4-6 of 10, severe pain or score 7-10 of 10, Until sheath remova l., Starting on [place] 01/10/21 at 1202, For 1 dose, Postprocedure (CV) hydrALAZINE (APRESOLINE) 20 mg/mL inject ion - ADS Override Pull Starting on Thu01/10/21 at 1210, For 1 dose, Created b y cabinet override hydrALAZINE injection 5 mg (APRESOLINE) Given 01/10/2021 12:15 PM CDT 5 mg 5 mg, intravenous, Once, On [place] 01/10/21 at 1215, For 1 dose hydrALAZINE injection 5 mg (APRESOLINE) Given 01/10/2021 1:15 PM CDT 5 mg 5 mg, intravenous, Once, On [place] 01/10/21 at 1315, For 1 dose midazolam (PF) injection 1 mg (VERSED) 1 mg, intravenous, Every 2 hour PRN, anxiety, muscle s pasms, Starting on [place] 01/10/21 at 1202, For 2 doses, Postproced ure (CV), May repeat x1 dosing interval. Patient must be NPO for 2 hours prior to giving. Until sheath removal. naloxone injection 0.2 mg (NARCAN) 0.2 mg, intravenous, As needed, respirat ory depression, Starting on [place] 01/10/21 at 1202, Postprocedure (CV), For RASS Score -4 or less, respiratory rate of less than 8 breaths/min. Notify provider/service and rapid respo nse team (if available at institution). nitroglycerin SL tablet 0.4 mg (NITROSTA T) 0.4 mg, sublingual, Every 5 min PRN, arden st pain, Starting on [place] 01/10/21 at 1202, Postprocedure (CV), Notify prescriber if pain unreliev ed after 2 doses. Do not administer if SBP is less than 90 mmHg. Do not administer if patient has documented severe aortic stenosis, pulmonary arteri al hypertension, obstructive hypertrophic cardiomyopathy, or those undergoing a coronary artery spasm study. Do not administer for patients receiving phosphodiesterace-5 (PDE5) inhibitors [e.g. sildenafil (VIAGRA, REVATIO)], tadalafil (CIALIS, ADCIRCA), vardenafil (LEVITRA), avanafil (STENDRA), or soluble guanylate cyclase inhib itors [e.g. riociguat (ADEMPAS)]. Do not order. Dissolve under the tongue. Do NOT crush, chew, split or swallow tablet., Indications: angina pantoprazole DR tablet 40 mg (PROTONIX) Given 01/11/2021 8:22 AM CDT 40 mg 40 mg, oral, Daily before breakfast, First dose on Thu01/11/21 at 0700, pantoprazole 40 mg oral daily was interchanged for omeprazole 20 or 40 mg oral daily Swallow whole. Do NOT crush, chew, or split tablet. documented in this encounter Active and Recently Administered Medications Times are shown in CDT. Scheduled Medication Order 01/09/2021 01/10/2021 01/11/2021 apixaban tablet 5 mg (ELIQUIS) 0 822 (Given - Provider: Jennifer Best R.N.) 5 mg, oral, 2 times daily, First dose on Thu01/11/21 at 0900 atorvastatin tablet 20 mg (LIPITOR) 0822 (Given - Provider: Jennifer eBst R.N. - Comment: pt took today; takes in the morning) 20 mg, oral, Daily at bedtime, First dose on [place] 01/10/21 at 2100 candesartan tablet 32 mg (ATACAND) 0823 (Given - Provider: Jennifer Best R.N.) 32 mg, oral, Daily, First dose on Thu at 0900, candesartan 32 mg oral daily was interchanged for valsartan carvediloL tablet 25 mg (COREG) 1623 (Gi waldemar - Provider: Lucas BarrN.) 0822 (Given - Provider: Jennifer damon RSimonNSimon) 25 mg, oral, 2 times daily with meals, First dose on Thu01/10/21 at 1700 clopidogreL tablet 75 mg (PLAVIX) 821 (Given - Provider: Jennifer Best R.N.) 75 mg, oral, Daily, First dose on Thu01/11/21 at 0900 hydrALAZINE injection 5 mg (APRESOLINE) (COMPLETED) 1215 (Given - Provider: Ro Bella R.N.) 5 mg, intravenous, Once, On Thu01/10/21 at 1215, For 1 dose hydrALAZINE injection 5 mg (APRESOLINE) (COMPLETED) 1315 (Given - Provider: Ro Bella R.N.) 5 mg, intravenous, Once, On Thu01/10/21 at 1315, For [address] tablet 40 mg (PROTONIX) 821 (Given - Provider: Jennifer Best R.N.) 40 mg, oral, Daily before breakfast, Fir st dose on Thu01/11/21 at 0700, pantoprazole 40 mg oral daily was interchanged for omeprazole 20 or 40 mg oral daily Swallow whole. Do NOT crush, chew, or split tablet. PRN Medication Order 01/09/2021 01/10/2021 01/11/2021 acetaminophen tablet 1,000 mg (TYLENOL) 0024 (Given - Provider: Wendy Tolbert RSimonNSimon) 1,000 mg, oral, Every 6 hours PRN, mild pain or score 1-3 of 10, Starting on Thu01/10/21 at 1202, Postprocedure (CV) atropine injection 0.5 mg 0.5 mg, intravenous, Every 5 min PRN, va sovagal, Starting on Thu01/10/21 at 1202, For 4 doses, Postprocedure (CV) docusate sodium capsule 100 mg (COLACE) 100 mg, oral, 2 times daily PRN, constip ation, Starting on Thu01/10/21 at 1202, Postprocedure (CV), Do NOT crush or chew. fentaNYL injection 25 mcg (SUBLIMAZE) (CANCELED) 08 (Given - Provider: Melecio Avery R.N.)0848 (Given - Provider: Melecio Avery R.N.)0956 (Given - Provider: Melecio Avery R.N.)1026 (Given - Provider: Melecio Avery R.N.)1037 (Given - Provider: Melecio Avery R.N.) 25 mcg, intravenous, Every 2 min PRN, mo derate pain or score 4-6 of 10, severe pain or score 7-10 of 10, Administer over 1 minute immediately prior to the procedure. May repeat every 2 minutes to a maxi 1110 ( Given - Provider: Melecio Avery R.N.) mum of 200 mcg, until pain score of 3 or less, or until the patient meets the pain comfort goal. Do not give if respiratory rate is less than 8 breaths/minute, Starting on [place] 01/10/21 at 0828, Intraprocedure (CV) fentaNYL injection 25 mcg (SUBLIMAZE) 25 mcg, intravenous, Once as needed, mod erate pain or score 4-6 of 10, severe pain or score 7-10 of 10, Until sheath removal., Starting on [place] 01/10/21 at 1202, For 1 dose, Postprocedure (CV) heparin (porcine) 1,000 unit/mL injection (CANCELED) 0905 (Given - Provider: Melecio Avery R.N.)0935 (Given - Provider: Melecio Avery R.N.)1026 (Given - Provider: Melecio Avery R.N.)1050 (Given - Provider: Melecio Avery R.N.) As needed, Starting on [place] 01/10/21 at 0905, Intraprocedure (CV) iohexoL 350 mg iodine/mL solution (OMNIPAQUE) (CANCELED) 1132 (Given - Provider: Wilner Goldsmith, B.Ch., B.A.O.) As needed, Starting on [place] 01/10/21 at 1132, Intraprocedure (CV) lidocaine 10 mg/mL (1 %) injection (XYLOCAINE) (CANCELED) 0840 (Given - Provider: Wilner Goldsmith, B.Ch., B.A.O.)0844 (Given - Provider: Rosemary Goldsmith., B.Ch., B.A.O.)1035 (Given - Provider: Agustin James M.D., Ph.D.) As needed, Starting on [place] 01/10/21 at 0840, Intraprocedure (CV) midazolam (PF) injection 0.5 mg (VERSED) (CANCELED) 0840 (Given - Provider: Wilner Goldsmith, B.Ch., B.A.O.)0902 (Given - Provider: Melecio Avery R.N.)0956 (Given - Provider: Melecio Avery R.N.)1026 (Given - Provider: Melecio Avery R.N.)1037 (Given - Provider: Melecio Avery R.N.) 0.5 mg, intravenous, Every 2 min PRN, se dation, RASS -1, Starting on [place] 01/10/21 at 0828, Intraprocedure (CV), May repeat every 2 minutes for a maximum of 5 mg. Do not give if respiratory rate is less than 8 breaths/minute. midazolam (PF) injection 1 mg (VERSED) 1 mg, intravenous, Every 2 hour PRN, anx iety, muscle spasms, Starting on [place] 01/10/21 at 1202, For 2 doses, Postprocedure (CV), May repeat x1 dosing interval. Patient must be NPO for 2 hours prior to giving. Until sheath removal. naloxone injection 0.2 mg (NARCAN) 0.2 mg, intravenous, As needed, respirat ory depression, Starting on [place] 01/10/21 at 1202, Postprocedure (CV), For RASS Score -4 or less, respiratory rate of less than 8 breaths/min. Notify provider/servi ce and rapid response team (if available at institution). nitroglycerin SL tablet 0.4 mg (NITROSTAT) 0.4 mg, sublingual, Every 5 min PRN, arden st pain, Starting on [place] 01/10/21 at 1202, Postprocedure (CV), Notify prescriber if pain unrelieved after 2 doses. Do not administer if SBP is less than 90 mmHg. D o not administer if patient has document ed severe aortic stenosis, pulmonary arterial hypertension, obstructive hypertrophic cardiomyopathy, or those undergoing a coronary artery spasm study. Do not adm inister for patients receiving phosphodi esterace-5 (PDE5) inhibitors [e.g. sildenafil (VIAGRA, REVATIO)], tadalafil (CIALIS, ADCIRCA), vardenafil (LEVITRA), avanafil (STENDRA), or soluble guanylate cycl ase inhibitors [e.g. riociguat (ADEMPAS) ]. Do not order. Dissolve under the tongue. Do NOT crush, chew, split or swallow tablet., Indications: angina documented in this encounter Care Teams [employer] Analyst Relationship Specialty Start Date End Date Elsewhere, Pcp PCP - General Family Medicine 01/10/21 documented as of this encounter
--- OUTSIDE RECORDS SUMMARY | 2022-03-26 22:24 | XMS_ITS | Encounter Summary ---
:1935 Author Organization [facility] Address [address] [place] [address] Care Team Providers Name Role Phone Elsewhere, Pcp Primary Care Provider Unavailable Encounter Details Date Type Department Care Team Description 01/10/2021 Surgery Division of Jeffery Arroyo, HEART CATHETER IZATION - Cardiovascular Diseases Maddie, Ph .D. LEFT in [facility] [address] [facility] [address] [place] [phone] Social History Tobacco Use Types Packs/Day Years [...] or relatives? How often do you attend nondenominational or Patient refused 2021 alevism services? Do you belong to any clubs or No 12/31/2021 organizations such as nondenominational groups, unions, fraternal or athletic groups, or [...] Sign Reading Time Taken Comments Blood Pressure 181/62 01/10/2021 10:15 AM CDT Pulse 77 01/10/2021 10:15 AM CDT Temperature 37.2 ??C (99 ??F) 01/10/2021 7:25 AM CDT Respiratory Rate 16 01/10/2021 10:15 AM CDT Oxygen Saturation 95% 01/10/2021 10:15 AM CDT Inhaled Oxygen Concentration - - [...] Provider: René Robert M.D. 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 Please identify this service name if you call with questions after hospitalization. AttachmentsThe following attachments cannot be sent through Care Everywhere. Pantoprazole (By mouth) (Cameroonian)documented in this encounter Medications at Time of [...] Exertion Added automatically from request for surgery [id number] 2. 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 Coronary Stent Status Post 4. 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 Diabetes Mellitus Type 2 ([facility]) 6. Stenosis Aortic Valve Acquired 7. 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 Lung Interstitial Disease ([facility]) 9. Migraine Headache With Aura - [...] closely. Electronically signed by: Nelly Jeong APRN, C.N.PSimon 01/10/21 4:06 PM CDT Frank Goldberg M.D. [...] REFERRAL SOURCE Dung Barry M.B., Ch.B. [address] [place] [id number] CHIEF COMPLAINT / REASON FOR VISIT Dyspnea [...] He had a coronary angiogram done in [place] in 2013 and a subsequent coronary angiogram was done at [facility] in [place]. The latter was done probably several years [...] and a referral was apparently made to [facility] for urgent evaluation. He has known [...] documented in this encounter Consult Notes Valente Rincon, EP - 01/10/2021 12:54 PM CDTAssociated Order(s): IP [...] program details. [facility] [address] [place] [address] 5. Appropriate referral information will be sent [...] Name Type Priority Associated Diagnoses Order [facility] External referral Outpatient Referral Routine Coronary Stent O rdered: cardiac rehab Status Post 01/10/2021 program ([facility]) documented as of this encounter Procedures Procedure [...] Address City/State/ZIP Code Phon e Number POC [facility] [address] [place] [address] PCLX [facility] [place] [address] [place] POC 200 [facility] Basic Metabolic Panel (01/10/2021 4:14 PM CDT) [...] 01/10/2021 DTL Black/ mL/min/BSA 5:14 PM CDT Jordanian Comment: ----ADDITIONAL INFORMATION---- Estimated GFR calculated using [...] C.N.P. LAB BLOOD ADD-ON Performing Organization Address City/[facility] Phon e Number [facility] - [address] [place] [address] [address] [place] [address] [facility] 200 [facility] Glucose, POCT (01/10/2021 2:04 PM CDT) Analysis [...] Provider LAB POCT ORDERABLES-MANUAL Performing Organization Address City/[facility] Phon e Number POC [facility] [address] [place] [address] [place] [address] LEFT HEART CATHETERIZATION, RIGHT HEART CATHETERIZATION, CORONARY [...] Clotting Time), POCT (01/10/2021 11:27 AM CDT) P athologist Signature Activated 235 (H) 84 - 139 01/10/2021 PCSM Clotting Time, sec 11:32 AM CDT POCT Specimen Anatomical Collection Method Collection Time Receive d Time (Source) Location / / Volume Laterality Blood 01/10/2021 11:27 01/10/2021 AM CDT 11:32 AM CDT Unknown Provider LAB POCT ORDERABLES - DEVICE Performing Organization Address City/[facility]/ZIP Code Phon e Number [facility]OC [facility] [address] [place], [place] [address] LABS [place] [place], [place] [phone] [place] [address] (ABNORMAL) ACT (Activated Clotting Time), POCT (01/10/2021 10:44 AM CDT) P athologist Signature Activated 245 (H) 84 - 139 01/10/2021 PCSM Clotting Time, sec 10:49 AM CDT POCT Specimen Anatomical Collection Method Collection Time Receive d Time (Source) Location / / Volume Laterality Blood 01/10/2021 10:44 01/10/2021 AM CDT 10:50 AM CDT Unknown Provider LAB POCT ORDERABLES - DEVICE Performing Organization Address City/[facility]/ZIP [facility] Phon e Number POC [facility] INPATIENT [address] [place], [place] [address] LABS [place], [place] [phone] [place] [address] (ABNORMAL) ACT (Activated Clotting Time), POCT (01/10/2021 10:07 AM CDT) P athologist Signature Activated 224 (H) 84 - 139 01/10/2021 PCSM Clotting Time, sec 10:17 AM CDT POCT Specimen Anatomical Collection Method Collection Time Receive d Time (Source) Location / / Volume Laterality Blood 01/10/2021 10:07 01/10/2021 AM CDT 10:18 AM CDT Unknown Provider LAB POCT ORDERABLES - DEVICE Performing Organization Address City/[facility]/ZIP [facility] Phon e Number [facility]OC [facility] [address] [place], [place] [address] LABS [place] [place], [place] [phone] [place] [address] (ABNORMAL) ABG and Lytes, POCT (01/10/2021 9:37 AM CDT) P athologist Signature Sample Site, Artline 01/10/2021 PCLX [...] POCT ORDERABLES - DEVICE Performing Organization Address [facility]/ZIP [facility] Phon e Number POC [facility] [address] [place] [address] [place] [address] [place] POC 200 [facility] Glucose, POCT (01/10/2021 7:36 AM CDT) Analysis [...] Provider LAB POCT ORDERABLES-MANUAL Performing Organization Address [facility] Phon e Number POC [facility] [address] [place] [address] [place] [address] [facility] 200 [facility] documented in this encounter Visit Diagnoses Diagnosis Dyspnea On Exertion - Primary Dyspnea On Exertion Coronary Stent Status Post Dyspnea On Exertion documented in this encounter [...] or chew. fentaNYL injection 25 mcg (SUBLIMAZE) Given 01/10/2021 11:10 AM CDT 25 mcg 25 mcg, intravenous, Every 2 min PRN, moderate pain or score 4-6 of 10, severe pain or score 7-10 of 10, Administer over 1 minute immediately prior to the procedure. May repeat every 2 minutes to a maximum of 200 mcg, until pain score of 3 or less, or until the patient meets the pain comfort goal. Do not give if respiratory rate is less than 8 breaths/minute, Starting on [place] 01/10/21 at 0828, Intraprocedure (CV) Given 01/10/2021 10:37 AM CDT 25 mcg Given 01/10/2021 10:26 AM CDT 25 mcg fentaNYL injection 25 mcg (SUBLIMAZE) 25 mcg, intravenous, Once as needed, mod erate pain or score 4-6 of 10, severe pain or score 7-10 of 10, Until sheath remova l., Starting on Thu01/10/21 at 1202, For 1 dose, Postprocedure (CV) heparin (porcine) 1,000 unit/mL Given 01/10/2021 10:50 AM CDT 2, 500 Units injection As needed, Starting on Thu01/10/21 at 0905, Intraprocedure (CV) Given 01/10/2021 10:26 AM CDT 2,000 Units Given 01/10/2021 9:35 AM CDT 2,000 Units hydrALAZINE (APRESOLINE) 20 mg/mL inject ion - ADS Override Pull Starting on [place] 01/10/21 at 1210, For 1 dose, Created b y cabinet override hydrALAZINE injection 5 mg (APRESOLINE) Given 01/10/2021 12:15 PM CDT 5 mg 5 mg, intravenous, Once, On [place] 01/10/21 at 1215, For 1 dose hydrALAZINE injection 5 mg (APRESOLINE) Given 01/10/2021 1:15 PM CDT 5 mg 5 mg, intravenous, Once, On [place] 01/10/21 at 1315, For 1 dose iohexoL 350 mg iodine/mL solution Given 01/10/2021 11:32 AM CDT 250 mL (OMNIPAQUE) As needed, Starting on [place] 01/10/21 at 1132, Intraprocedure (CV) lidocaine 10 mg/mL (1 %) injection Given 01/10/2021 10:35 AM CDT 10 mL Right Groin (XYLOCAINE) As needed, Starting on [place] 01/10/21 at 0840, Intraprocedure (CV) Given 01/10/2021 8:44 AM CDT 5 mL Right Neck Given 01/10/2021 8:40 AM CDT 5 mL Left Wrist midazolam (PF) injection 0.5 mg (VERSED) Given 01/10/2021 10:37 AM CDT 0.5 mg 0.5 mg, intravenous, Every 2 min PRN, sedation, RASS -1, Starting on [place] 01/10/21 at 0828, Intraprocedure (CV), May repeat every 2 minutes for a maximum of 5 mg. Do not give if respiratory rate is less than 8 breaths/minute. Given 01/10/2021 10:26 AM CDT 0.5 mg Given 01/10/2021 9:56 AM CDT 0.5 mg midazolam (PF) injection 1 mg (VERSED) 1 [...] at 0900 atorvastatin tablet 20 mg (LIPITOR) 821 (Given - Provider: Jennifer Best RAlexandria. - Comment: pt took today; takes in the morning) 20 mg, oral, Daily at bedtime, First dose on Thu01/10/21 at 2100 candesartan tablet 32 mg (ATACAND) 0823 (Given - Provider: Jennifer Best R.N.) 32 mg, oral, Daily, First dose on Thu at 0900, candesartan 32 mg oral daily was interchanged for valsartan carvediloL tablet 25 mg (COREG) 1623 (Gi waldemar - Provider: Cher Flores R.N.) 08 (Given - Provider: Jennifer damon RSimonNSimon) 25 mg, oral, 2 times daily with meals, First dose on Thu01/10/21 at 1700 clopidogreL tablet 75 mg (PLAVIX) 821 (Given - Provider: Jennifer Best R.N.) 75 mg, oral, Daily, First dose on Thu01/11/21 at 0900 hydrALAZINE injection 5 mg (APRESOLINE) (COMPLETED) 1215 (Given - Provider: Ro Bella RSimonNSimon) 5 mg, intravenous, Once, On Thu01/10/21 at 1215, For 1 dose hydrALAZINE injection 5 mg (APRESOLINE) (COMPLETED) 1315 (Given - Provider: Ro Bella RSimonNSimon) 5 mg, intravenous, Once, On Thu01/10/21 at 1315, For [address] tablet 40 mg (PROTONIX) 821 (Given - Provider: Jennifer Best RSimonNSimon) 40 mg, oral, Daily before breakfast, Fir st dose on Thu01/11/21 at 0700, pantoprazole 40 mg oral daily was interchanged for omeprazole 20 or 40 mg oral daily Swallow whole. Do NOT crush, chew, or split tablet. PRN Medication Order 01/09/2021 01/10/2021 01/11/2021 acetaminophen tablet 1,000 mg (TYLENOL) 0024 (Given - Provider: Wendy Tolbert RSimonN.) 1,000 mg, oral, Every 6 hours PRN, mild pain or score 1-3 of 10, Starting on [place] 01/10/21 at 1202, Postprocedure (CV) atropine injection 0.5 mg 0.5 mg, intravenous, Every 5 min PRN, va sovagal, Starting on [place] 01/10/21 at 1202, For 4 doses, Postprocedure (CV) docusate sodium capsule 100 mg (COLACE) 100 mg, oral, 2 times daily PRN, constip ation, Starting on [place] 01/10/21 at 1202, Postprocedure (CV), Do NOT crush or chew. fentaNYL injection 25 mcg (SUBLIMAZE) (CANCELED) 0839 (Given - Provider: Melecio Avery R.N.)0848 (Given [...] Wilner Goldsmith, B.Ch., B.A.O.)0844 (Given - Provider: Wilner Goldsmith, B.Ch., B.A.O.)1035 (Given - Provider: Agustin James [...] 0.4 mg, sublingual, Every 5 min PRN, raden st pain, Starting on [place] 01/10/21 at [...] angina documented in this encounter Care Teams Front Of House Manager Relationship Specialty Start Date End Date Elsewhere, Pcp PCP - General Family Medicine 01/10/21 documented as of this encounter
--- OUTSIDE RECORDS SUMMARY | 2022-03-26 22:24 | XMS_ITS | Encounter Summary ---
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 How often do you attend restorationism or Patient refused 2021 hinduism services? Do you belong to any clubs or No 12/31/2021 organizations such as restorationism groups, unions, fraternal or athletic groups, or [...] Associated Diagnosis Comme nts OPTICAL COHERENCE Routine 04/03/2021 1:08 PM Diabetes Mellitus Type Results for this TOMOGRAPHY - RETAIL SALES SPECIALIST 2 With Proliferative procedu re are in MACULA/RETINA - OU Diabetic Retinopathy t he results - BOTH EYES With Macular Edema section. 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 OCT device used 29West Spectralis . Central macular thickness 262 um. Left Eye Reliability was good. OCT device used 29West Spectralis . Central macular thickness 261 um. Notes right eye: normal contour, no edema left eye: normal contour, no edema Jose Herman M.D. OPHTH TOMOGRAPHY Performing Organization Address City/State/ZIP Code Phon e Number OPHTHALMOLOGY IMAGING EXAM documented in this encounter Visit Diagnoses Diagnosis Diabetes Mellitus Type 2 With Proliferat kit Diabetic Retinopathy With Macular Edema Bilateral (HCC) - Primary Diabetes Mellitus Type 2 With Proliferat kit Diabetic Retinopathy With Macular Edema Hypoglycemic Right Eye (HCC) documented in this encounter Care Teams Sample Book Maker Relationship Specialty Start Date End Date Elsewhere, Pcp PCP - General Family Medicine 01/10/21 documented as of this encounter
--- OUTSIDE RECORDS SUMMARY | 2022-03-26 22:24 | XMS_ITS | Encounter Summary ---
:1935 Author Organization [facility] Address [address] [place] [address] Care Team Providers Name Role Phone Elsewhere, Pcp Primary Care Provider Unavailable Encounter Details Date Type Department Care Team Description 04/03/2021 Procedure visit Department of [place], Jose High M.D. [address] [place] [phone] Diabetes Mellitus Type 2 With Proliferat kit Diabetic Retinopathy With Macular Edema Hypoglycemic Right Eye (HCC); Ophthalmology in [facility] Diabetes Mellitus Type 2 With Proliferat kit Diabetic Retinopathy With Macular Edema Bilateral (HCC) [place], [place] [address] [place] [address] Social History Tobacco Use Types Packs/Day Years [...] you attend mandaen or Patient refused 2021 yazidi services? Do [...] documented as of this encounter Progress Notes Nettie Lopez CRA - 04/03/2021 11:30 AM CST Patient was assessed for Angiogram. Verified education and informed consent has been completed. Patient fits discharge criteria; patient sent to have IV removed. Dr. Herman is the authorizing prescriber who directed the protocol. Patient's creatinine level is Lab Results Component Value Date CREATININE 1.00 03/28/2021 CREATPOC 1.40 (H) 02/02/2020 Adverse reaction noted: none. BUILDER SUPERVISOR documented in this encounter Plan of Treatment Not on filedocumented as of this encounter Procedures Procedure Name Priority Date/Time Associated Diagnosis Comme nts ANGIOGRAPHY - OU - Routine 04/03/2021 1:08 PM Diabetes Mellitu s Results for this BOTH EYES BOATBUILDER SUPERVISOR Type 2 With procedure are i n Proliferative the results Diabetic Retinopathy section . 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 Fluorescein dos e given is normal. Field of view is ultra-wide view. Left Eye Dye used is fluorescein. Fluorescein dos e given is normal. Field of view is ultra-wide view. Notes The angiogram concentrated on the right eye. ??The arm to retina time is unknown. ??There is some early hyperfluo rescence secondary to laser scars in the temporal retina. ??There is some blockage secondary to some preretinal blood temporally. ??As the an giogram progresses there is some mild hyperfluorescence under the blood. ??There is staining around the laser spots. ??The angiogram of the left eye starts the mid AV phase. ?? There is some late staining of the vesse ls temporally. ??There is still some peripheral ischemia in left eye. Assessment/plan: ??1. Status post sector ial PRP, right eye with decreased preretinal blood. ??2. Peripheral ischem ia, OU Jose Herman M.D. OPHTH PHOTOGRAPHY Performing Organization Address City/State/ZIP Code Phon e Number OPHTHALMOLOGY IMAGING EXAM documented in this encounter Visit Diagnoses Diagnosis Diabetes Mellitus Type 2 With Proliferat kit Diabetic Retinopathy With Macular Edema Hypoglycemic Right Eye (HCC) Diabetes Mellitus Type 2 With Proliferat kit Diabetic Retinopathy With Macular Edema Bilateral (HCC) documented in this encounter Administered Medications Inactive Administered Medications - up to 3 most recent administrations Medication Order MAR Action Action Date Dose Rate Site fluorescein 500 mg/5 mL (10 %) Given 04/03/2021 12:54 PM BOATBUILDER SUPERVISOR 500 mg injection 500 mg (AK-FLUOR/FLUORESCEIN) 500 mg, intravenous, Once, On Thu01/16/21 at 1730, For 1 dose sodium chloride 0.9 % injection 3 mL Given 04/03/2021 12:53 PM BOATBUILDER SUPERVISOR 3 mL 3 mL, intravenous, As needed, line care, Peripheral Intravenous Catheter and Rapid Infusion Catheter, Starting on Thu04/03/21 at 1159, For 1 day, Prior to and following infusion and between multiple consecutive infusions. documented in this encounter Care Teams Ophthalmologist Retina Specialist Relationship Specialty Start Date End Date Elsewhere, Pcp PCP - General Family Medicine 01/10/21 documented as of this encounter
--- OUTSIDE RECORDS SUMMARY | 2022-03-26 22:24 | XMS_ITS | Encounter Summary ---
:1935 Author Organization [facility] Address [address] [place] [address] Care Team Providers Name Role Phone Unavailable Primary Care Provider Unavailable Reason for Visit Reason Comments Medication instructions Encounter Details Date Type Department Care Team Description 01/04/2021 Clinical Outpatient Surgery Leslie Howard Communication and Procedural L, R.N. instructions Admissions in [address] [place] [phone] [place] [address] [place], [place] (Work) [phone] Social History Tobacco Use Types Packs/Day Years [...] or relatives? How often do you attend pentecostalism or Patient refused 2021 mandaen services? Do you belong to any clubs or No 12/31/2021 organizations such as pentecostalism groups, unions, fraternal or athletic groups, or [...] this encounter Miscellaneous Notes Telephone Encounter - Leslie Howard R.N. - 01/04/2021 11:49 AM CDT SUBJECTIVE CHIEF COMPLAINT / REASON FOR CALL Medication instructions PLAN The following information was provided: REASON FOR PHONE CALL Reinforcement of plan for holding medication Anticoagulation medications: Kristofer Garcia is being scheduled for: Cardiac procedure on 01/10/2021 -- PCI +/- (Plavix and ASA load) -- Left heart cath -- Right heart cath (ECG - 6 months) Patient currently is on apixaban (Eliquis) for anticoagulation. Patient has a past medical history of the following: Paroxysmal Atrial Fibrillation on Eliquis Creatinine, S Date Value Ref Range Status 12/17/2020 1.21 0.74 - 1.35 mg/dL Final eGFR-Non Black/ Date Value Ref Range Status 12/17/2020 54 (L) >=60 mL/min/BSA Final Comment: ----ADDITIONAL INFORMATION---- Estimated GFR calculated using the 2009 CKD_EPI creatinine equation. eGFR-Black/ Date Value Ref Range Status 12/17/2020 63 >=60 mL/min/BSA Final Comment: ----ADDITIONAL INFORMATION---- Estimated GFR calculated using the 2009 CKD_EPI creatinine equation. Calculated creatinine clearance: Creatinine clearance cannot be calculated (Patient's most recent lab result is older than the maximum 7 days allowed.) Last EF Documented: Results for orders placed during the hospital encounter of 12/17/20 Echo Transthoracic (TTE) Narrative For the complete report, see the Order-Level Documents. Final Impressions 1. Borderline enlarged left ventricular chamber size. Calculated ejection fraction 55%. 2. No regional wall motion abnormalities. 3. Grade 1/3 left ventricular diastolic dysfunction, consistent with low to normal left ventricular filling pressure. 4. Normal right ventricular chamber size and systolic function. 5. Estimated right ventricular systolic pressure 40 mmHg (systolic blood pressure 162 mmHg). 6. Moderate aortic valve stenosis. Mean gradient 24 mmHg. Valve area 1.30 cm2. Findings LEFT VENTRICLE: Borderline enlarged left ventricular chamber size. Abnormal left ventricular geometry with eccentric left ventricular hypertrophy. Calculated 2-D linear left ventricular ejection fraction 55 %. No regional wall motion abnormalities. Grade 1/3 left ventricular diastolic dysfunction, consistent with low to normal left ventricular filling pressure. RIGHT VENTRICLE: Normal right ventricular chamber size. Normal right ventricular systolic function. Estimated right ventricular systolic pressure 40 mmHg (systolic blood pressure 162 mmHg). ATRIA: Moderately enlarged left atrial size. Left atrial volume index 44 ml/m^2. Normal right atrial size. CARDIAC VALVES: Trileaflet aortic valve. Moderate aortic valve stenosis. Aortic valve systolic mean Doppler gradient 24 mmHg. Aortic valve area by Doppler 1.30 cm^2. No aortic valve regurgitation. Mildly calcified mitral annulus. Trivial mitral valve regurgitation. Normal pulmonary valve. Normal pulmonary valve systolic velocities. Trivial pulmonary valve regurgitation. Normal tricuspid valve. Trivial tricuspid valve regurgitation. OTHER ECHO FINDINGS: Normal inferior vena cava size with normal inspiratory collapse (>50%). Normal sinus of Valsalva diameter (diameter 39 mm). Normal mid ascending aorta diameter (diameter 36 mm at mid level). Abdominal aorta incompletely visualized. Normal abdominal aorta Doppler flow pattern. Imaging inadequate for detection of atrial level shunt by color flow imaging. No intracardiac mass or thrombus, but the left atrial appendage cannot be visualized adequately with transthoracic echo to exclude thrombus in this location. Small anterior pericardial effusion. For the complete report, see the Order-Level Documents. Other: Per Dr. Robert he would like Eliquis stopped 3 days prior to patient's procedure on 01/10/2021 Patient current height/weight: Weight: 100 kg (01/01/2021 7:26 AM) Height: 172.8 cm (01/01/2021 7:26 AM) Completed per Cardiovascular Medicine Periprocedural Medication Procedure. For cardiac procedure 01/10/2021 For -- PCI +/- (Plavix and ASA load) -- Left heart cath -- Right heart cath (ECG - 6 months) Discussion Summary: I told Mr. Garcia to stop taking his Eliquis after his morning dose on 01/07/2021. I hadednao called his home phone and left him the same message. Diabetes medications: Not given instructions in phone call. Disposition/Recommendation: protocol orders Information/Education: patient/caller able to teach back Caller agreeable to plan of care: yes The following references were used: patient education resources: Ask [place] Expert Additional education materials provided: None Information/Education: patient/caller able to teach back The following references were used: none documented in this encounter Plan of Treatment Not on filedocumented as of this encounter Visit Diagnoses Not on filedocumented in this encounter
--- OUTSIDE RECORDS SUMMARY | 2022-03-26 22:24 | XMS_ITS | Encounter Summary ---
:1935 Author Organization [facility] Address [address] [place] [address] Care Team Providers Name Role Phone Unavailable Primary Care Provider Unavailable Reason for Visit Reason Comments Patient Education Outpatient (Routine) - Closed Specialty Diagnoses / Procedures Referred By Contact Refer red To Contact Cardiovascular Disease René Robert [place] M.D. [address] [place] [phone] Referral ID Status Reason Start Date Expiration Date Visits Requ ested Visits Authorized [id number] Closed 01/02/2021 01/02/2022 1 1 Encounter Details Date Type Department Care Team Description 01/08/2021 Virtual Visit Department of René Robert M.D. [address] [place] [phone] Dyspnea On Exertion Cardiovascular Medicine Dulce Tristan, RNohemy [address] [place] [phone] in [facility] [address] [place] [phone] Social History Tobacco Use Types Packs/Day [...] you attend gnosticist or Patient refused 2021 jainism services? Do [...] PM CDT documented as of this encounter Patient Instructions Patient InstructionsDulce Tristan R.N. - 01/08/2021 1:30 PM CDT PRE-PROCEDURE EDUCATION PROVIDED VIA TELEPHONE CALL. THE PATIENT WAS NOT PHYSICALLY PRESENT FOR THISAPPOINTMENT Pre-procedure instructions include: 1. Basic information about the scheduled procedure 2. Fasting for 8 hours, 6 hours, and 2 hours prior to report time; refer to page 8 of the pamphlet entitled Preparing For Your Cardiac Catheterization or Heart Rhythm Procedure for details 3. Presence of a responsible adult (18 years of age or older) the day of procedure as well as for transportation home 4. See updated Visitor policy: Due to the COVID-19 pandemic, visitor restrictions are in place. Two visitors are permitted to accompany the patient to any outpatient appointments, procedures, and the patient's hospital room. Visiting hours are 7 am to 9 pm. 5. Stay within 100 miles of [place] overnight 6. Take all medications as instructed 7. Call the [facility] Service Line ([phone]) the evening before the procedure between the hours of 7 pm and midnight to learn what time and where to report to the hospital the next day Aspirin Instructions: Take 4 tablets of 81mg Aspirin, for a total of 324mg, on the morning of your procedure. Plavix Instructions: Take 4 tablets (300 mg total) of Plavix on the day prior to your procedure. Take 1 tablet (75 mg) ofPlavix on the morning of your procedure. ?? Vitamins/Supplements Instructions: Do not take vitamins or supplements the morning of the procedure. Diabetes Medication Instructions: Diabetic medication instructions reviewed with patient per Preparing For Your Cardiac Catheterization or Heart Rhythm Procedure booklet, 3596-08, pages 14 through 17.HOLD AMARYL MANPREET BEFORE AND MORNING OF PROCEDURE. Last Dose Eliquis 01/07/21 a.m. documented in this encounter Progress Notes Dulce Tristan R.N. - 01/08/2021 1:30 PM CDT SUBJECTIVE REASON FOR PHONE CALL Pre-procedure education OBJECTIVE Review done via RN Protocol: Cardiovascular Clinic Pre-Cardiac Invasive Catheterization Procedure Patient Management Reference document #[id number] Date of procedure: 01/10/21 Procedure to be done: -- Coronary angiogram (ASA load) -- PCI +/- (Plavix and ASA load) -- Left heart cath -- Right heart cath (ECG - 6 months) -- Other: Exercise ZENY in the last 30 days from date of procedure: Yes ECG in the last 45 days from date of procedure: Yes Labs in the last 45 days from date of procedure: Yes COVID test done? Yes Rapid 01/08/21. Allergy to contrast dye/iodine/shellfish? 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 ASSESSMENT / PLAN Information Discussed Reviewed pre-procedure instructions with patient/family as listed in ???Preparing For Your Cardiac Catheterization or Heart Rhythm Procedure?? , [id number]. See After Visit Summary for specific instructions shared with the patient. Disposition/Recommendation: protocol orders Information/Education: patient/caller able to teach back Caller agreeable to plan of care: yes The following references were used: none Additional education materials provided: Preparing For Your Cardiac Catheterization or Heart Rhythm Procedure, [id number] documented in this encounter Plan of Treatment Not on filedocumented as of this encounter Visit Diagnoses Diagnosis Dyspnea On Exertion documented in this encounter Additional Health Concerns Infection Onset Date Last Indicated Resolved Time COVID19 Pending 01/08/2021 01/08/2021 01/08/2021 4:11 PM CDT documented as of this encounter
--- OUTSIDE RECORDS SUMMARY | 2022-03-26 22:24 | XMS_ITS | Encounter Summary ---
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 How often do you attend spiritism or Patient refused 2021 mormon services? Do you belong to any clubs or No 12/31/2021 organizations such as spiritism groups, unions, fraIPTEGO or athletic groups, or school groups? How [...] encounter Progress Notes Jose Herman M.D. - 01/09/2021 8:15 AM CDT Kristofer Garcia was seen today for sectorial PRP in his right eye. 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 He will return to clinic next week for laser in his left eye. documented in this encounter Plan of Treatment Not on filedocumented as of this encounter Procedures Procedure Name Priority Date/Time Associated Diagnosis Comme nts NAIR RETINAL Routine 01/09/2021 8:34 Diabetes Mellitus Results for this PHOTOCOAGULATION - OD - AM CDT Type 2 With proc edure are in RIGHT EYE Proliferative the results Diabetic Retinopathy section . With Macular Edema Bilateral (HCC) documented in this encounter Results Nair Retinal Photocoagulation - OD - Right Eye (01/09/2021 8:34 AM CDT) Specimen (Source) Anatomical Location Collection Method / Collectio n Time Received Time / Laterality Volume Narrative OPHTHALMOLGY NON-IMAGING ORDERS - 8:34 AM CDT Time Out Confirmed correct patient, procedure, si te, and patient consented. Anesthesia Topical anesthesia was used. Pre/Post Pr ocedure prep and meds used were Celluvisc 1-10 drops, Lidocaine 2% 1 - 1 0 drops. Laser Information The type of laser was argon. The duratio n in seconds was 0.2. The spot size was 300 micrometers. Laser power wa s 460 milliwatts. Total spots was 408. It was a segemental scatter pattern . Post-op The patient tolerated the procedure well . There were no complications. The patient received written and verbal post procedure care education. Notes Lens: Superquad Duration: ?200 ? msec Average Power: ? 460 ?m Rodrigues Spot size: ??300 ?Um Interval between shots: ?800 m sec ?? # of treatments: 408 Comp: none Anesthesia: topical Temporal segmental scatter Jose Herman M.D. OPH CLINIC PROCEDURES Performing Organization Address City/State/ZIP Code Phon e Number OPHTHALMOLGY NON-IMAGING ORDERS documented in this encounter Visit Diagnoses Diagnosis Diabetes Mellitus Type 2 With Proliferat kit Diabetic Retinopathy With Macular Edema Bilateral (HCC) - Primary Diabetes Mellitus Type 2 With Proliferat kit Diabetic Retinopathy With Macular Edema Hypoglycemic Right Eye (HCC) documented in this encounter
--- OUTSIDE RECORDS SUMMARY | 2022-03-26 22:24 | XMS_ITS | Encounter Summary ---
:1935 Author Organization [facility] Address [address] [place] [address] Care Team Providers Name Role Phone Elsewhere, Pcp Primary Care Provider Unavailable Reason for Visit Reason Comments Med Refill Encounter Details Date Type Department Care Team Description 03/04/2021 Refill Department of Cardiovascular René Rothman M.D. Med Refill Medicine in [place] [address] [address] [place] [address] [place] [address] [place] [address] [phone] Social History Tobacco Use Types Packs/Day Years [...] or relatives? How often do you attend synagogue or Patient refused 2021 evangelical services? Do you belong to any clubs or No 12/31/2021 organizations such as synagogue groups, unions, fraternal or athletic groups, or [...] or slept in a mcc (including now)? Sex Assigned at Date Recorded Male 12/31/2021 3:41 PM CDT documented as of this encounter Plan of Treatment Not on filedocumented as of this encounter Visit Diagnoses Not on filedocumented in this encounter Care Teams Metal Work Duct Installer Relationship Specialty Start Date End Date Elsewhere, Pcp PCP - General Family Medicine 01/10/21 documented as of this encounter
--- OUTSIDE RECORDS SUMMARY | 2022-03-26 22:24 | XMS_ITS | Encounter Summary ---
:1935 Author Organization [facility] Address [address] [place] [address] Care Team Providers Name Role Phone Elsewhere, Pcp Primary Care Provider Unavailable Encounter Details Date Type Department Care Team Description 04/03/2021 Ancillary Procedure Department of Ophthalmology Social History [...] you attend religion or Patient refused 2021 buddhism services? Do [...] Date/Time Associated Comments Diagnosis OPHTHALMOLOGY IMAGE Routine 04/03/2021 12:35 Resu lts for this EXAM PM COMMUNICATION SPEC procedure are i n the results section. documented in this encounter Results [employer]-Ophthalmology Image Exam (04/03/2021 12:35 PM COMMUNICATION SPEC) Specimen (Source) Anatomical Collection Method Collection Time Re ceived Time Location / / Volume Laterality 04/03/2021 12:31 PM COMMUNICATION SPEC Narrative [facility] - 04/03/2021 1:21 PM COMMUNICATION SPEC This order has been created and auto-finalized [...] on filedocumented in this encounter Care Teams Sales Department Manager Relationship Specialty Start Date End Date Elsewhere, Pcp PCP - General Family Medicine 01/10/21 documented as of this encounter
--- OUTSIDE RECORDS SUMMARY | 2022-03-26 22:24 | XMS_ITS | Encounter Summary ---
:1935 Author Organization [facility] Address [address] [place] [address] Care Team Providers Name Role Phone Elsewhere, [...] you attend bahai or Patient refused 2021 temple services? Do [...] Associated Comments Diagnosis OPHTHALMOLOGY IMAGE Routine 04/03/2021 12:00 Resu lts for this EXAM AM SURVEILLANCE OFFICER procedure are i n the results section. documented in this encounter Results Eyes [facility]ral[facility] OCT-Ophthalmology Image Exam (04/03/2021 12:00 AM SURVEILLANCE OFFICER) Specimen (Source) Anatomical Location Collection Method / Collectio n Time Received Time / Laterality Volume Narrative [facility] - 04/03/2021 12:35 PM SURVEILLANCE OFFICER This order has been created and auto-finalized [...] filedocumented in this encounter Care Teams Rn Internal Medicine Relationship Specialty Start Date End Date Elsewhere, Pcp PCP - General Family Medicine 01/10/21 documented as of this encounter
--- OUTSIDE RECORDS SUMMARY | 2022-03-26 22:24 | XMS_ITS | Encounter Summary ---
:1935 Author Organization [facility] Address [address] [place] [address] Care Team Providers Name Role Phone Elsewhere, Pcp Primary Care Provider Unavailable Reason for Visit Reason Comments Med Management Encounter Details Date Type Department Care Team Description 04/08/2021 Clinical Communication Department of René Robert Med Management Cardiovascular [place] [place] Medicine in [place] [address] [place], [place] [address] [facility] [address] [place], [place] [phone] (Work) [phone] Social History Tobacco Use Types Packs/Day Years [...] or relatives? How often do you attend holiness or Patient refused 2021 evangelical services? Do you belong to any clubs or No 12/31/2021 organizations such as holiness groups, unions, fraternal or athletic groups, or [...] this encounter Miscellaneous Notes Telephone Encounter - Carmen Mart R.N. - 04/08/2021 11:39 AM CST I called [facility] pharmacy and they transferred the prescription to [facility]. I spoke with the pharmacist and he resent the request and apparently it went through and approvedanother refill. I contacted the patient back and communicated this. Patient verbalized understanding and appreciated the phone call back TOLOGY TECHNOLOGIST Telephone Encounter - Iqra Acharya - 04/08/2021 10:20 AM CST SUBJECTIVE CHIEF COMPLAINT / REASON FOR CALL Med Management Name of caller/relationship to the patient: randi Miner Patient expects communication via portal: No Phone number: [phone] Request topic and what needs to be addressed? Medication Management ?? Goal or summary: Patient states his insurance hasn't covered the last 3 months of his pantoprazole prescription. He states insurance needs [facility] to call them and inform why he needs this medication. He provided me with the following phone number, . ?? Medication/dose: pantoprazole 40 mg EC tablet ?? Pharmacy clarification: [facility] ?? Additional comments: He has two days of medication left. TOLOGY TECHNOLOGIST documented in this encounter Plan of Treatment Not on filedocumented as of this encounter Visit Diagnoses Not on filedocumented in this encounter Care Teams Bolt Man Relationship Specialty Start Date End Date Elsewhere, Pcp PCP - General Family Medicine 01/10/21 documented as of this encounter
--- OUTSIDE RECORDS SUMMARY | 2022-03-26 22:24 | XMS_ITS | Encounter Summary ---
:1935 Author Organization [facility] Address [address] [place] [address] Care Team Providers Name Role Phone Elsewhere, Pcp Primary Care Provider Unavailable Reason for Referral Outpatient (Routine) - Closed Specialty Diagnoses / Procedures Referred By Contact Refer red To Contact Cardiovascular Disease Diagnoses Coronary Stent Status Post Nelly Jeong, [facility] WANDA, C.N.P. [address] [place] [phone] Referral ID Status Reason Start Date Expiration Date Visits Requ ested Visits Authorized [id number] Closed 01/11/2021 01/11/2022 1 1 Reason for Visit Reason Comments Pre-visit Testing Orders Encounter Details Date Type Department Care Team Description 01/11/2021 Clinical Department of [place] Pre-visit Test ing Communication Cardiovascular Nelly Mae, Orders Medicine in [facility] WANDA, C.N .P. [place] [address] [place] [address] [address] [place] [phone] Social History Tobacco Use Types Packs/Day Years [...] you attend latter-day or Patient refused 2021 adventist services? Do you belong to any clubs [...] Name Type Priority Associated Order Schedule Diagnoses Cardiovascular Disease Outpatient Referral Routine Coronary St ent Expected: office visit (clinic) Status Post 2020 (Approximate), Expires: 01/12/2024 documented as of this encounter Visit Diagnoses Diagnosis Coronary Stent Status Post - Primary documented in this encounter Care Teams Mineral Technologist Relationship Specialty Start Date End Date Elsewhere, Pcp PCP - General Family Medicine 01/10/21 documented as of this encounter
--- OUTSIDE RECORDS SUMMARY | 2022-03-26 22:24 | XMS_ITS | Encounter Summary ---
:1935 Author Organization [facility] Address [address] [place] [address] Care Team Providers Name Role Phone Elsewhere, Pcp Primary Care Provider Unavailable Encounter Details Date Type Department Care Team Description 04/03/2021 Ancillary Procedure Department of Jose Herman, Ophthalmology in .[place], [place] [address] [place] [phone] Social History Tobacco Use Types Packs/Day Years [...] or relatives? How often do you attend baptist or Patient refused 2021 sikh services? Do you belong to any clubs or No 12/31/2021 organizations such as baptist groups, unions, fraternal or athletic groups, or [...] Mellitu s Results for this BOTH EYES FRUIT BUYER Type 2 With procedure are i n Proliferative the results Diabetic Retinopathy section . 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 Fluorescein [...] on filedocumented in this encounter Care Teams Blood Tester Relationship Specialty Start Date End Date Elsewhere, Pcp PCP - General Family Medicine 01/10/21 documented as of this encounter
--- OUTSIDE RECORDS SUMMARY | 2022-03-26 22:24 | XMS_ITS | Encounter Summary ---
:1935 Author Organization [facility] Address [address] [place] [address] Care Team Providers Name Role Phone Elsewhere, Pcp Primary Care Provider Unavailable Reason for Referral Outpatient (Routine) - Closed Specialty Diagnoses / Procedures Referred By Contact Refer red To Contact Ophthalmology Jose Herman M. D. 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 [facility] Procedures Nair Retinal Photocoagulation - OS - Left Eye [address] [facility] [place] [address] Referral ID Status Reason Start Date Expiration Date Visits Requ ested Visits Authorized [id number] Closed 01/02/2021 01/02/2022 1 1 Encounter Details Date Type Department Care Team Description 01/16/2021 Procedure visit Department of Jose Herman e Vitreous Right (HCC) (Primary Dx); Ophthalmology mayda High M.D. Hemorrhage Retinal Bilateral; [place], [place] [address] Diabetes Mellitus Type 2 With Proliferat kit Diabetic Retinopathy With Macular Edema Hypoglycemic Right Eye (HCC); [address] [facility], [place] Diabetes Mellitus Type 2 Wit h Proliferative Diabetic Retinopathy With Macular Edema Bilateral (HCC) [place] [phone] Social History Tobacco Use Types Packs/Day Years [...] or relatives? How often do you attend yazidi or Patient refused 2021 church services? Do you belong to any clubs or No 12/31/2021 organizations such as yazidi groups, unions, fraternal or athletic groups, or [...] encounter Progress Notes Jose Herman M.D. - 01/16/2021 4:00 PM CDT Kristofer Garcia was seen today for sectorial PRP in the left eye. 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 documented in this encounter Miscellaneous Notes Addendum Note - Nicki North, C.O.A. - 01/16/2021 4:00 PM CDT Addended by: NICKI NORTH on: 01/16/2021 05:20 PM Modules accepted: Orders documented in this encounter Plan of Treatment Scheduled Referrals Name Type Priority Associated Order Schedule Diagnoses Ophthalmology office Outpatient Referral Routine Expected: visit (clinic) 03/18/2021, Expires: 01/17/2024 documented as of this encounter Procedures Procedure Name Priority Date/Time Associated Diagnosis Comme nts NAIR RETINAL Routine 01/16/2021 5:11 Diabetes Mellitus Results for this PHOTOCOAGULATION - OS - PM CDT Type 2 With proc edure are in LEFT EYE Proliferative the results Diabetic Retinopathy section . With Macular Edema Bilateral (HCC) documented in this encounter Results Fluorescein Angiography - OU - Both Eyes (04/03/2021 1:08 PM ACCOUNT STRATEGIST) Specimen (Source) Anatomical Location Collection Method / Collectio n Time Received Time / Laterality Volume Narrative OPHTHALMOLOGY IMAGING EXAM - 04/03/20 21 2:08 PM ACCOUNT STRATEGIST Right Eye Dye used is fluorescein. Fluorescein [...] Code Phon e Number OPHTHALMOLOGY IMAGING EXAM Optical Coherence Tomography (OCT) - Macula/Retina - OU - Both Eyes (04/03/2021 1:08 PM ACCOUNT STRATEGIST) Analysis Performed At Patho logist Time Signature CMT L Microns 261 um OPHTHALMOLOGY IMAGING EXAM CMT R Microns 262 um OPHTHALMOLOGY IMAGING EXAM Specimen (Source) Anatomical Location Collection Method / Collectio n Time Received Time / Laterality Volume Narrative OPHTHALMOLOGY IMAGING EXAM - 04/03/20 21 2:06 PM ACCOUNT STRATEGIST Right Eye Reliability was good. OCT device used wa s Spectralis . Central macular thickness 262 um. Left Eye Reliability was good. OCT device used wa s Spectralis . Central macular thickness 261 um. Notes right eye: normal contour, no edema left eye: normal contour, no edema Jose Herman M.D. OPHTH TOMOGRAPHY Performing Organization Address [facility]/ZIP Code Phon e Number OPHTHALMOLOGY IMAGING EXAM Nair Retinal Photocoagulation - OS - Left Eye (01/16/2021 5:11 PM CDT) Specimen (Source) Anatomical Location Collection Method / Collectio n Time Received Time / Laterality Volume Narrative OPHTHALMOLGY NON-IMAGING ORDERS - 05/2020 5:11 PM CDT Time Out Confirmed correct patient, procedure, [...] wa s 460 milliwatts. Total spots was 140. It was a segemental scatter pattern . Post-op The patient tolerated the procedure well . There were no complications. The patient received written and verbal post procedure care education. Notes Lens: ??Superquad Duration: 200 ?msec Average Power: ? 460 ?m Rodrigues Spot size: ? 300 ? Um Interval between shots: ? 800 mse c ? # of treatments: 140 Comp: none Anesthesia: ??topical Jose Herman M.D. OPHTH CLINIC PROCEDURES Performing Organization Address City/[facility]/ZIP Code Phon e Number OPHTHALMOLGY NON-IMAGING ORDERS documented in this encounter Visit Diagnoses Diagnosis Hemorrhage Vitreous Right (HCC) - Primar y Hemorrhage Retinal Bilateral Diabetes Mellitus Type 2 With Proliferat kit Diabetic Retinopathy With Macular Edema Hypoglycemic Right Eye (HCC) Diabetes Mellitus Type 2 With Proliferat kit Diabetic Retinopathy With Macular Edema Bilateral (HCC) Diabetes Mellitus Type 2 With Proliferat kit Diabetic Retinopathy With Macular Edema Hypoglycemic Right Eye (HCC) Diabetes Mellitus Type 2 With Proliferat kit Diabetic Retinopathy With Macular Edema Bilateral (HCC) Diabetes Mellitus Type 2 With Proliferat kit Diabetic Retinopathy With Macular Edema Bilateral (HCC) - Primary Diabetes Mellitus Type 2 With Proliferat kit Diabetic Retinopathy With Macular Edema Hypoglycemic Right Eye (HCC) documented in this encounter Care Teams Drawer Maker Relationship Specialty Start Date End Date Elsewhere, Pcp PCP - General Family Medicine 01/10/21 documented as of this encounter
[2022-03-26 22:25] LABS: Basophils Percent Auto 0.1 % (0.0-3.0); Eosinophils Percent Auto 0.6 % (0.0-7.0); Hematocrit 27.8 % (37.0-53.0); Hemoglobin* 8.8 gm/dL (13.5-17.5); Immature Granulocytes Pct Auto 0.2 %; Lymphocytes Percent Auto 82.2 % (20-44); Mean Corpuscular HGB Conc 32 gm/dL (32-36); Mean Corpuscular Hemoglobin 30 pg (26-34); Mean Corpuscular Volume 94 fL (80-100); Monocytes Percent Auto 2.1 % (0.0-11.0); Neutrophils Percent Auto 14.8 % (42.0-72.0); Platelet Count* 192 K/uL (140-440); RDW Coefficient of Variation % 14.3 % (11.5-15.5); Red Blood Count 2.97 m/uL (4.30-5.90)
--- OUTSIDE RECORDS SUMMARY | 2022-03-26 22:25 | XMS_ITS | Encounter Summary ---
:1935 Author Organization [facility] Address [address] [place] [address] Care Team Providers Name Role Phone Unavailable Primary Care Provider Unavailable Encounter Details Date Type Department Care Team Description 12/31/2020 Orders Only Department of Stepan, Diabetes Rufino thomas Type Ophthalmology in [place] Urszula C[place]OAnt 2 With Proliferative [place], [place] [address] [facility] Diabetic Retinopathy [address] [place], [place] [phone] Bilateral (HCC) [phone] (Primary Dx) (Work) Social History Tobacco Use Types Packs/Day Years [...] or relatives? How often do you attend cheondoism or Patient refused 2021 alevism services? Do you belong to any clubs or No 12/31/2021 organizations such as cheondoism groups, unions, fraternal or athletic groups, or [...] on filedocumented as of this encounter Results Fluorescein Angiography - OU - Both Eyes (01/02/2021 10:12 AM CDT) Specimen (Source) Anatomical Location Collection Method / Collectio n Time Received Time / Laterality Volume Narrative OPHTHALMOLOGY IMAGING EXAM - 01/03/20 21 11:04 AM CDT Right Eye Dye used is fluorescein. Fluorescein dos e given is normal. Left Eye Dye used is fluorescein. Fluorescein dos e given is normal. Notes The angiogram concentrated on the right eye. ??As the angiogram progresses, there is blockage near the equator tempo rally secondary to some preretinal blood. ??There is an area of hyperfluore scence consistent with neovascularization elsewhere which leaks in late stages. ??There is a large area of peripheral capillary non perfusi on. ??The angiogram of the left eye shows an area of neovascularization else where along the infratemporal arcade. ??Again there is large areas of capillary non perfusion. ??There is no vitreous hemorrhage in the left eye. Jose Herman M.D. OPHTH PHOTOGRAPHY Performing Organization Address City/[facility]/ZIP Code Phon e Number OPHTHALMOLOGY IMAGING EXAM Optical Coherence Tomography (OCT) - Macula/Retina - OU - Both Eyes (01/02/2021 9:48 AM CDT) Analysis Performed At Patho logist Time Signature CMT L Microns 258 um OPHTHALMOLOGY IMAGING EXAM CMT R Microns 256 um OPHTHALMOLOGY IMAGING EXAM Specimen (Source) Anatomical Location Collection Method / Collectio n Time Received Time / Laterality Volume Narrative OPHTHALMOLOGY IMAGING EXAM - 01/03/20 21 11:05 AM CDT Right Eye Reliability was good. OCT device used Ammado Spectralis . Central macular thickness 256 um. Left Eye Reliability was good. OCT device used wa s Spectralis . Central macular thickness 258 um. Notes right eye: normal contour, no irf or srf left eye: normal contour, no irf or srf Jose Herman M.D. OPHTH TOMOGRAPHY Performing Organization Address City/State/ZIP Code Phon e Number OPHTHALMOLOGY IMAGING EXAM documented in this encounter Visit Diagnoses Diagnosis Diabetes Mellitus Type 2 With Proliferat kit Diabetic Retinopathy Without Macular Edema Bilateral (HCC) - Primary Diabetes Mellitus Type 2 With Proliferat kit Diabetic Retinopathy Without Macular Edema Bilateral (HCC) - Primary Diabetes Mellitus Type 2 With Proliferat kit Diabetic Retinopathy Without Macular Edema Bilateral (HCC) - Primary documented in this encounter
--- OUTSIDE RECORDS SUMMARY | 2022-03-26 22:25 | XMS_ITS | Encounter Summary ---
:1935 Author Organization [facility] Address [address] [place] [address] Care Team Providers Name Role Phone Unavailable Primary Care Provider Unavailable Reason for Visit Reason Comments Appointment Communication Encounter Details Date Type Department Care Team Description 12/31/2020 Clinical Department of Jose Herman Appointment; Communication Ophthalmology in [place] M.D. Communication [place], [place] [address] [place] [phone] Social History Tobacco Use Types Packs/Day Years [...] or relatives? How often do you attend denominational or Patient refused 2021 mormon services? Do you belong to any clubs or No 12/31/2021 organizations such as denominational groups, unions, fraternal or athletic groups, or [...] this encounter Miscellaneous Notes Telephone Encounter - Madelyn Ying, C.O.A. - 12/31/2020 2:27 PM CDT Orders placed Telephone Encounter - Melissa Webb - 12/31/2020 1:19 PM CDT Please send through orders for this patient with Dr. Hemran for Diabetic Retinoathy proliferative without macular edema. Per SOP OCT Spectralis and OPTOS FA External OD Referral NOTE: I told patient to plan 930am start time. documented in this encounter Plan of Treatment Not on filedocumented as of this encounter Visit Diagnoses Not on filedocumented in this encounter
--- OUTSIDE RECORDS SUMMARY | 2022-03-26 22:25 | XMS_ITS | Encounter Summary ---
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) (Primary Dx); Ophthalmology in [place] Amaurosis Fugax; [place], [place] [address] Migraine Headache With Aura; [address] [place], [place] Lung Interstitial Disease ( CC); [place] [address] Anemia; [phone] 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 Do [...] place to sleep or slept in a long-term (including now)? Sex Assigned at Date Recorded Male 12/31/2021 3:41 PM CDT documented as of this encounter Progress Notes Jose Herman M.D. - 01/02/2021 11:[address] Salas, Thank you for allowing me to participate in the care of your patient, Kristofer Garcia. He is a very pleasant 85-year-old man who you referred for evaluation of his vitreous hemorrhage in the right eye and neovascularization in his temporal retina in both eyes. Kristofer also complains of frequent episodes of photopsias. He is getting an MRI and an MRA today for that. 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 He has a history of anemia. He has a history of aortic valve stenosis. He is a type 2 diabetic. His last hemoglobin A1c was 7. He is an interesting patient. He has sectorial areas temporally of very poor perfusion and intraretinal hemorrhages and neovascularization. He looks like sickle cell retinopathy. My thought is that these changes are actually secondary to his leukemia. He is getting a sickle cell retinopathy like picture from his elevated white blood cell count. If you look at the fluorescein angiogram, you can see large areas of capillary non perfusion the retinal periphery. We will get him set up for PRP in both eyes. Also on the differential would be diabetes. However, he does not look like a typical patient withproliferative diabetic retinopathy. His areas of ischemia or very sectorial. It could also be from oc ular ischemic syndrome. He is getting an MRA today Exam: See note Assessment/plan: 1. Peripheral areas of ischemic retina with intraretinal hemorrhages, neovascularization in both eyes and preretinal hemorrhage, right eye, with sickle cell retinopathy like appearance. 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 Would also consider type 2 diabetes with proliferative diabetic changes and ocular acute occlusive disease -plan PRP over the next several weeks. -let supply tech know of these findings. --good blood pressure, cholesterol, and glycemic control. 2. History of photopsias: -being worked up by neuro today 3. Early cataracts, OU: -sunglasses when outdoors documented in this encounter Miscellaneous Notes Addendum Note - Nicki North, CSimonOQuique. - 01/02/2021 11:00 AM CDT Addended by: NICKI NORTH on: 01/02/2021 11:45 AM Modules accepted: Orders documented in this encounter Plan of Treatment Not on filedocumented as of this encounter Procedures Procedure Name Priority Date/Time Associated Diagnosis Comme nts FUNDUS PHOTOS - OU Routine 01/02/2021 11:02 Diabetes Mellitus Type Results for this - BOTH EYES AM CDT 2 With Proliferative procedu re are in Diabetic Retinopathy the res ults With Macular Edema section. Bilateral (HCC) documented in this encounter Results Nair Retinal Photocoagulation - OS - Left Eye (01/16/2021 5:11 PM CDT) Specimen (Source) Anatomical Location Collection Method / Collectio n Time Received Time / Laterality Volume Narrative OPHTHALMOL NON-IMAGING ORDERS - 05/2020 5:11 PM CDT [...] Comp: none Anesthesia: ??topical Jose Herman M.D. OPH CLINIC PROCEDURES Performing Organization Address City/State/ZIP Code Phon e Number OPHTHALMOLGY NON-IMAGING ORDERS Nair Retinal Photocoagulation - OD - Right [...] topical Temporal segmental scatter Jose Herman M.D. OPHTH CLINIC PROCEDURES Performing Organization Address City/State/ZIP Code Phon e Number OPHTHALMOLGY NON-IMAGING ORDERS Fundus Photos - OU - Both Eyes (01/02/2021 11:02 AM CDT) Specimen (Source) Anatomical Location Collection Method / Collectio n Time Received Time / Laterality Volume Narrative OPHTHALMOLOGY IMAGING EXAM - 01/03/20 11:02 AM CDT Color photograph, right eye: ??The cup to disc ratio is about 0.4. ??Near the equator temporally there is some pre retinal blood. ??There is a small area of NVE along it. ??There is some sc attered areas of intraretinal hemorrhages temporally. Color photograph, left eye: ??The cup di sc ratio is about 0.5 to 0.6 there are some temporal hemorrhages in left ey e as well. Jose Herman M.D. 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) Hemorrhage Retinal Bilateral Hemorrhage Vitreous Right (HCC) Diabetes Mellitus Type 2 With Proliferat kit Diabetic Retinopathy With Macular Edema Hypoglycemic Right Eye (HCC) Diabetes Mellitus Type 2 With Proliferat kit Diabetic Retinopathy With Macular Edema Bilateral (HCC) - Primary Diabetes Mellitus Type 2 With Proliferat kit Diabetic Retinopathy With Macular Edema Hypoglycemic Right Eye (HCC) Hemorrhage Vitreous Right (HCC) - Primar y Hemorrhage Retinal Bilateral Diabetes Mellitus Type 2 With Proliferat kit Diabetic Retinopathy With Macular Edema Hypoglycemic Right Eye (HCC) Diabetes Mellitus Type 2 With Proliferat kit Diabetic Retinopathy With Macular Edema Bilateral (HCC) documented in this encounter
--- OUTSIDE RECORDS SUMMARY | 2022-03-26 22:25 | XMS_ITS | Encounter Summary ---
:1935 Author Organization [facility] Address [address] [place] [id number] Care Team Providers Name Role Phone Unavailable Primary Care Provider Unavailable Reason for Referral MRI/CAT/PET Scan (Routine) - Closed Specialty Diagnoses / Procedures Referred By Contact Refer red To Contact Radiology Diagnoses Amaurosis Fugax Sirisha López M.D., [facility] Procedures MR Brain Angio WO and Neck Angio WOW IV Contrast MR Brain Angiogram without and with IV Contrast Ph.D. [address] [place] [phone] Referral ID Status Reason Start Date Expiration Date Visits Requ ested Visits Authorized [id number] Closed 01/01/2021 01/01/2022 1 1 Outpatient (Routine) - Closed Specialty Diagnoses / Procedures Referred By Contact Refer red To Contact Neurology Sirisha López M .D., Ph.D. [facility] [address] [place] [address] [phone] Referral ID Status Reason Start Date Expiration Date Visits Requ ested Visits Authorized [id number] Closed 01/01/2021 01/01/2022 1 1 MRI/CAT/PET Scan (Routine) - Closed Specialty Diagnoses / Procedures Referred By Contact Refer nettie To Contact Radiology Diagnoses Amaurosis Fugax Sirisha López M.D., [facility] Procedures MR Brain without and with IV Contrast Ph.D. [address] [place] [address] [phone] Referral ID Status Reason Start Date Expiration Date Visits Requ ested Visits Authorized [id number] Closed 01/01/2021 01/01/2022 1 1 Reason for Visit Outpatient (Routine) - Closed Specialty Diagnoses / Procedures Referred By Contact Refer red To Contact Neurology Diagnoses Amaurosis Fugax René Robert M.D. [facility] [address] [place], [place] [phone] Referral ID Status Reason Start Date Expiration Date Visits V isits Requested Authorized [id number] Closed Specialty 12/31/2020 12/31/2021 1 1 Services Required Encounter Details Date Type Department Care Team Description 01/01/2021 Comprehensive Visit Department of Sirisha López Neurology mayda Barr M.D., Ph.D. [address] [place] [phone] Social History Tobacco Use Types Packs/Day Years [...] you attend christianity or Patient refused 2021 orthodox services? Do [...] place to sleep or slept in a care home (including now)? Sex Assigned at Date Recorded Male 12/31/2021 3:41 PM CDT documented as of this encounter Last Filed Vital Signs Vital Sign Reading Time Taken Comments Blood Pressure - - Pulse - - Temperature 36.5 ??C (97.7 ??F) 01/01/2021 7:26 AM CDT Respiratory Rate - - Oxygen Saturation - - Inhaled Oxygen Concentration - - Weight 100 kg (220 lb 10.9 oz) 01/01/2021 7:26 AM CDT Height 172.8 cm (5' 8.03) 01/01/2021 7:26 AM CDT Body Mass Index 33.52 01/01/2021 7:26 AM CDT documented in this encounter Consult Notes Sirisha López M.D., Ph.D. - 01/01/2021 8:00 AM CDT SUBJECTIVE HISTORY OF PRESENT ILLNESS Mr. Kristofer Garcia is a 85 y.o. right-handed male from [place], [place] referred by Dr. Barnard Cardiology for question of migraine equivalent vs. amaurosis fugax. The patient is is accompanied by his daughter Tata Montes. Per chart review, on December 31, 2020 he told his [place] car top bolter Dr. Archuleta that he has episodic vision loss of the lateral right visual field for 1.5 minutes, then have blurry vision, then returned tonormal. He was referred for urgent neurology in Ophthalmology consult, he will be seeing Ophthalmology on January 02. He has a prior diagnosis of ophthalmic migraine. On December 28, he saw an certified professional coder Dr. Villlata and examination demonstrated a far peripheral temporal pre-retinal vitreal hemorrhage in his right eye, there was no obvious neovascularization but there are still concerns for proliferative changes with his history of diabetes. Today, he reports 3 visual symptoms: Migraine with Visual aura: he gets a binocular aura of a central hazy spot that transforms into an enlarging white sparkling crescent shape that moves either left or right across his vision for about 30 - 35 min. These are binocular, and if it is moving right, it will move nasally in the L eye and temporally in the R eye. Followed by a mild headache that lasts 24-48 hrs. These started 40 years ago, initially occurring rarely about 3-4x/year. This last year, specifically last 6 months, he gets 8-12/month, occurring about every 2-3 days, he even had a day with multiple spells [id number]. In Jan 2020 he had an MRI/MRA of the head and neck because his visual auras were increasing in frequency. Never tried any medicines for these symptoms. He is unaware of any triggers. 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 He saw a doctor here 30 years ago and was diagnosed with migraines. About 50% of the time he gets a mild headache. The pain comes down the L side through his temporal area and jaw. No eye pain. He has itchy/dyrness of eyes. He feels retroorbital pressure and has a spot of point tenderness on his L ear. His headaches are aching, mild, holocephalic, significant photophobia, no n/v, not worse with exertion, doesn't want to lie down in a dark room. He has stopped drinks with aspartame with 3 weeks of freedom of the spells, tea, and exercise. He had one episode occur afterwalking on his treadmill, but stopping exercise has not caused resolution. Monocular - Wall of Sand/floaters: In spring 2019, one day he awoke with his R eye looking througha window full of sand, he was counseled that they were floaters and they would resolve, which they did over 1 month. This recurred in Spring 2020, and again spontaneously resolved over 1 month. He still has occasional floaters and sometimes awakens with horizontal lines across his vision. Monocular - R eye -Miller vision loss: Last , he lost vision in his R eye while watching TV, it went miller for about 1 min. He alternately closed his eyes to confirm it was the R eye. This has only occurred once. This is when he saw his certified professional coder who spotted the small amount of blood on his retina. There is no history of GLAZE GRINDER infection or head injury/concussions. The following red flags are present (bolded text = present; non-bolded = asked and not present): Malignancy CLL, immunosuppression, HIV positive, fever, chills, night sweats, myalgias, weight loss, jaw claudication, global neurological symptoms (cognitive change), diplopia, transient visual obscurati on, pulsatile tinnitus, motor weakness, sensory loss, ataxia, sudden onset, age greater than 65, change in headache characteristics (frequency, severity, clinical features) Neurology review of systems, besides HPI: Never had diplopia, his adult children report some mild episodes of dysarthria. 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 No episodes of sensory loss or weakness. No seizure history, no fam history of seizures, no sx of nocturnal sz (blood on pillow, urine/bowel incontinence) Past medical history: Chronic lymphocytic leukemia diagnosed in 2006 Interstitial lung disease diagnosed on imaging Diabetes type 2 Dyspnea on exertion and edema concerning for heart failure with preserved ejection fraction Moderate aortic valve stenosis CKD, baseline creatinine 1.2 First-degree heart block Coronary artery disease History of symptomatic atrial fibrillation, diagnosed December 29, 2019 (see Dr. Gaitan's note in CareEverywhere from 01/31/2020 for details), spontaneously reverted to normal sinus rhythm Hypertension Partial colectomy 20 years ago for diverticulitis Cholecystectomy Medications: Current Outpatient Medications: ??? ascorbic acid, vitamin C, (ascorbic acid with mildred hips) 500 mg tablet, Take 1 tablet by mouth daily., Disp: , Rfl: ??? atorvastatin (LIPITOR) 20 mg tablet, Take 20 mg by mouth., Disp: , Rfl: ??? atorvastatin (LIPITOR) 40 mg tablet, Take 0.5 tablets by mouth daily., Disp: , Rfl: ??? carvediloL (COREG) 25 mg tablet, Take 25 mg by mouth 2 (two) times a day with meals. , Disp: , Rfl: ??? DME CPAP, DME Order, Disp: , Rfl: ??? Eliquis 5 mg tablet, 5 mg 2 (two) times a day. , Disp: , Rfl: ??? glimepiride (AMARYL) 2 mg tablet, Take 2 mg by mouth daily with breakfast., Disp: , Rfl: ??? omega-3 fatty acids/fish oil (OMEGA 3 FISH OIL ORAL), Take 1 capsule by mouth daily., Disp: , Rfl: ??? omeprazole (PriLOSEC) 20 mg capsule, Take 1 capsule by mouth 2 (two) times a day., Disp: , Rfl: ??? salmon oil/omega-3 fatty acids (SALMON OIL-1000 ORAL), Take 1 tablet by mouth daily., Disp: , Rfl: ??? silver sulfADIAZINE (SILVADENE, SSD) 1 % cream, Apply 1 application topically as needed. , Disp:, Rfl: ??? triamcinolone (KENALOG) 0.1 % cream, Apply 1 application topically as needed. , Disp: , Rfl: ??? valsartan (DIOVAN) 320 mg tablet, Take 320 mg by mouth daily. , Disp: , Rfl: ??? vitamin E 400 unit capsule, Take 1 capsule by mouth daily., Disp: , Rfl: Current Facility-Administered Medications: ??? fluorescein 500 mg/5 mL (10 %) injection 500 mg (AK-FLUOR/FLUORESCEIN), 500 mg, intravenous, Once in imaging, Jose Herman M.D. Past surgical history: None in last 2 years Family History: Has 2 grandchildren with migraines, one has visual symptoms. Grandkid with MS. He has 7 siblings, none had strokes to his knowledge. He has 6 kids, daughter is concerned for neuropathy. Daughter had migraines when she was young. Social history: NO tob use since 1967, rare EtOH, no recreational drugs Lives with daughter and granddaughter. He is independent with IADLs and ADLs. 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 Medications, allergies, past medical, surgical, social, and family history were reviewed in the chart and updated as appropriate. OBJECTIVE Physical Exam: Constitutional: well-developed, well-nourished HEENT: moist mucus membranes, normal oropharynx Cardiovascular: well-perfused extremities Respiratory: speaking full sentences, no increased work of breathing Musculoskeletal: normal bulk and tone, +2 pitting edema Skin: no lesions or rashes Psychiatric: pleasant and cooperative, normal mood and affect Neurological Exam: Patient is not currently experiencing a headache. Fundoscopic exam is technically challenging due tosmall pupil diameter despite being in a dark room. There is tenderness to palpation along the R TMJ,but no beading of the temporal artery. No tenderness around the supraorbital ridge, temporalis muscles, temporomandibular joint, insertion points of the sternocleidomastoid onto the mastoid process, occipitocervical junction, or muscles of the posterior neck and trapezius muscles. Higher cortical function: Alert and oriented to person, place, time, and situation. Normal fund of knowledge. Follows complex commands. Cranial nerves: Pupils are 3 mm each, reactive bilaterally to light, extraocular movements normal. Visual davison normal. 20/30 vision in OS and OD, color vision intact on Ishihara plates. Sensation to light touch normal in V1, 2, and 3. Face symmetric. Hearing intact to conversation. No dysarthria. Symmetric palate elevation and tongue protrusion. Strength: Normal strength with neck rotation, flexion and extension. Normal strength with arm abduction, arm flexion and extension, wrist flexion and extension, and finger spread, flexion and extension. Normal strength with hip flexion, adduction, and abduction, knee flexion and extension, and ankle flexion and extension. Reflexes: Normal and symmetric at biceps, triceps, brachioradialis, patella, and ankle. Downgoing plantar reflexes bilaterally. Sensation: Normal sensation to joint position sense and pinprick in bilateral upper and lower extremities. Coordination: No pronator drift. Normal jlidki-hysf-ssksgv bilaterally. Normal umkc-wp-lldw bilaterally. Gait: Able to stand from sitting without using hands. Romberg positive (history of inner ear issues). Narrow-based gait with normal stride length. Normal tiptoe walking, heel walking, and moderate difficulty with tandem gait within limits of age. ?? TTE on December 17, 2020 demonstrates eccentric left ventricular hypertrophy with an ejection fraction of 55% and grade 1/3 diastolic dysfunction. Right ventricular systolic pressure elevated to 40 mm mercury. Moderately enlarged left atrial size. Moderate aortic valve stenosis and mildly calcified mitral annulus with trivial mitral regurgitation. Unable to assess for atrial level shunt. Could not visualize left atrial appendage. ?? ECG on December 17, 2020 shows normal sinus rhythm, first-degree heart block ?? October 2019- LDL 59 ?? Hemoglobin A1c 7.0 in May 24, 2020 ?? 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 ASSESSMENT / PLAN Mr. Kristofer Garcia is a 85 y.o. right-handed male from [place], [place] referred by Dr. Barnard Cardiology for question of migraine equivalent vs. amaurosis fugax. #Transient monocular vision loss of R eye His episode 1 minutes of a miller curtain following down with vision loss in his right eye while watching TV is concerning for a transient ischemic attack. He has numerous stroke risk factors includinghypertension diabetes, and paroxysmal atrial fibrillation on Eliquis. -MRI/MRA with and without contrast -start aspirin 325 mg daily; will consider either 81 mg or stopping aspirin based on vessel imaging -continue apixaban 5 mg b.i.d. -at this point, does not require Holter monitor/COSTA because he is already on apixaban for paroxysmalatrial fibrillation with a CHADSVASC of 4 -obtain MRI/MRA images from Jan 2020 for comparison -ESR/CRP to assess for giant cell arteritis ADDENDUM: these test results are normal. #Migraine with visual aura His episodes of central vision haziness with a sparkling white crescent moving through his vision for 30 min is consistent with a migrainous aura, and it is common for these patients to not have typical migraine headaches, like this patient's case. -await MRI results -If these episodes are not bothersome and imaging is reassuring, then no treatment is needed. If these aureas are too bothersome to patient, can consider propranolol or verapamil preventative therapy. #Photopsias (Wall of sand); resolved His 2 episodes of month-long R visual disturbance prem to looking through a wall of sand were previously diagnosed as photopsias (floaters). He only had episodes in spring and spring and they spontaneously resolved. -appreciate ophthalmology's recommendations I would like to see the patient in after tests with the following prescheduled tests: MRI/MRA brain. This case was staffed and discussed with Dr. Juan Alfaro. I personally spent over half of a total 65 minutes face to face with the patient in counseling and discussion and/or coordination of care as described above. Juan Alfaro Jr., M.D. - 01/01/2021 8:00 AM CDT #1 Amaurosis fugax #2 Intermittent atrial fibrillation on chronic anticoagulation #3 Migraine with visual aura #4 Hypertension #5 Type 2 diabetes mellitus #6 Obstructive sleep apnea Mr. Garcia is an 85-year-old gentleman with a number of cerebrovascular ischemic risk factors whose case I reviewed in detail with Dr. Sirisha López, and to whose note I refer the reader for complete detail. In brief, Mr. Garcia had a brief episode of painless right monocular visual loss onAugus2020. He is on chronic anticoagulation for intermittent atrial fibrillation. He has had longstanding migraine with visual aura that has become much more frequent since last year, but this recent episode was distinctly different. He has had no jaw claudication or worrisome systemic symptoms.On examination, he has mild temporal tenderness. His visual acuity is reassuring and he does well onall of the Ishihara plates. Eye movements are normal. Dr. López has an excellent plan to update hiscranial and cerebrovascular imaging, check a sedimentation rate and CRP, start him on aspirin today while the workup is proceeding, and have him evaluated by our colleagues in Ophthalmology. He understands the indications for urgent care should the need arise. documented in this encounter Plan of Treatment Scheduled Referrals Name Type Priority Associated Order Schedule Diagnoses Neurology office Outpatient Referral Routine 1 Oc currences visit (clinic) starting 12/16 until 4 documented as of this encounter Results MR Brain Angio WO and Neck Angio WOW IV Contrast (01/02/2021 3:09 PM CDT) Anatomical Region Laterality Modality Head, Brain, Neuroradiology RST LOS, Neuroradiology AR N/A Magnetic Resonance [facility], Neuroradiology FLA [facility] Specimen (Source) Anatomical Collection Method Collection Time Re ceived Time Location / / Volume Laterality 01/02/2021 3:27 PM CDT Impressions 01/02/2021 3:44 PM CDT 1. 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 2. 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 No critical isrrael nosis otherwise identified. Scattered atherosclerotic disease of the carotid s iphons. 3. Possible tiny 2 mm aneurysm of the moreno praclinoid right internal carotid arteries versus infundibulum. Likely inc idental. Narrative 01/02/2021 3:44 PM CDT EXAM: MR BRAIN WITHOUT AND WITH IV CONTRAST, MR BRAIN ANGIO WO AND NECK ANGIO WOW IV CONTRAST COMPARISON: None relevant. 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 FINDINGS: Brain MRI: Prominent motion artifact. Mo derate scattered multifocal white matter hyperintensities on FLAIR likely microva scular in etiology, relatively mild for the patient's stated age.. No abnormal e nhancement or restriction of diffusion. 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 Right vertebral artery patent with no critical stenoses. Mild b ifurcation and common carotid artery irregularity but no critical stenosis. I nternal carotid arteries patent throughout. No critical stenoses. Mild e xternal carotid artery narrowing worse on the left. INTRACRANIAL MRA: Scattered atherosclero tic disease of the vertebrobasilar system and the distal right vertebral ar lucita and mid basilar artery. Multifocal atherosclerotic irregularity of the intr adural left vertebral artery above and below the origin of the left posterior i nferior cerebellar artery probably in the 50-60 percent range. Tiny 2 mm outpo uching from the supraclinoid segments of the internal carotid arteries bilaterall y may represent early aneurysm formation versus infundibulum. Major components of the jena of [place] are otherwise intact. Posterior communicating arteries are small. Likely mild atherosclerotic disease of the carotid siphons. Procedure Note Ashia Decker M.B., B.Ch. - 021 EXAM: MR BRAIN WITHOUT AND WITH IV CONTR AST, MR BRAIN ANGIO WO AND NECK ANGIO WOW IV CONTRAST COMPARISON: None relevant. 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 FINDINGS: Brain MRI: Prominent motion artifact. Mo derate scattered multifocal white matter hyperintensities on FLAIR likely microva scular in etiology, relatively mild for the patient's stated age.. No abnormal e nhancement or restriction of diffusion. 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 Right vertebral artery patent with no critical stenoses. Mild b ifurcation and common carotid artery irregularity but no critical stenosis. I nternal carotid arteries patent throughout. No critical stenoses. Mild e xternal carotid artery narrowing worse on the left. INTRACRANIAL MRA: Scattered atherosclero tic disease of the vertebrobasilar system and the distal right vertebral ar lucita and mid basilar artery. Multifocal atherosclerotic irregularity of the intr adural left vertebral artery above and below the origin of the left posterior i nferior cerebellar artery probably in the 50-60 percent range. Tiny 2 mm outpo uching from the supraclinoid segments of the internal carotid arteries bilaterall y may represent early aneurysm formation versus infundibulum. Major components of the jena of [place] are otherwise intact. Posterior communicating arteries are small. Likely mild atherosclerotic disease of the carotid siphons. IMPRESSION: 1. 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 2. 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 No critical isrrael nosis otherwise identified. Scattered atherosclerotic disease of the carotid s iphons. 3. Possible tiny 2 mm aneurysm of the moreno praclinoid right internal carotid arteries versus infundibulum. Likely inc idental. Sirisha López M.D., Ph.D. IMG MRI PROCEDURES MR Brain without and with IV Contrast (01/02/2021 3:09 PM CDT) Anatomical Region Laterality Modality Head, Brain, Neuroradiology RST LOS, Neuroradiology AR N/A Magnetic Resonance LOS, Neuroradiology FLA [facility] Specimen (Source) Anatomical Collection Method Collection Time Re ceived Time Location / / Volume Laterality 01/02/2021 3:27 PM CDT Impressions 01/02/2021 3:44 PM CDT 1. 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 2. 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 No critical isrrael nosis otherwise identified. Scattered atherosclerotic disease of the carotid s iphons. 3. Possible tiny 2 mm aneurysm of the moreno praclinoid right internal carotid arteries versus infundibulum. Likely inc idental. Narrative 01/02/2021 3:44 PM CDT EXAM: MR BRAIN WITHOUT AND WITH IV CONTRAST, MR BRAIN ANGIO WO AND NECK ANGIO WOW IV CONTRAST COMPARISON: None relevant. 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 FINDINGS: Brain MRI: Prominent motion artifact. Mo derate scattered multifocal white matter hyperintensities on FLAIR likely microva scular in etiology, relatively mild for the patient's stated age.. No abnormal e nhancement or restriction of diffusion. 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 Right vertebral artery patent with no critical stenoses. Mild b ifurcation and common carotid artery irregularity but no critical stenosis. I nternal carotid arteries patent throughout. No critical stenoses. Mild e xternal carotid artery narrowing worse on the left. INTRACRANIAL MRA: Scattered atherosclero tic disease of the vertebrobasilar system and the distal right vertebral ar lucita and mid basilar artery. Multifocal atherosclerotic irregularity of the intr adural left vertebral artery above and below the origin of the left posterior i nferior cerebellar artery probably in the 50-60 percent range. Tiny 2 mm outpo uching from the supraclinoid segments of the internal carotid arteries bilaterall y may represent early aneurysm formation versus infundibulum. Major components of the jena of [place] are otherwise intact. Posterior communicating arteries are small. Likely mild atherosclerotic disease of the carotid siphons. Procedure Note Ashia Decker M.B., B.Ch. - 021 EXAM: MR BRAIN WITHOUT AND WITH IV CONTR AST, MR BRAIN ANGIO WO AND NECK ANGIO WOW IV CONTRAST COMPARISON: None relevant. 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 FINDINGS: Brain MRI: Prominent motion artifact. Mo derate scattered multifocal white matter hyperintensities on FLAIR likely microva scular in etiology, relatively mild for the patient's stated age.. No abnormal e nhancement or restriction of diffusion. 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 Right vertebral artery patent with no critical stenoses. Mild b ifurcation and common carotid artery irregularity but no critical stenosis. I nternal carotid arteries patent throughout. No critical stenoses. Mild e xternal carotid artery narrowing worse on the left. INTRACRANIAL MRA: Scattered atherosclero tic disease of the vertebrobasilar system and the distal right vertebral ar lucita and mid basilar artery. Multifocal atherosclerotic irregularity of the intr adural left vertebral artery above and below the origin of the left posterior i nferior cerebellar artery probably in the 50-60 percent range. Tiny 2 mm outpo uching from the supraclinoid segments of the internal carotid arteries bilaterall y may represent early aneurysm formation versus infundibulum. Major components of the jena of [place] are otherwise intact. Posterior communicating arteries are small. Likely mild atherosclerotic disease of the carotid siphons. IMPRESSION: 1. 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 2. 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 No critical isrrael nosis otherwise identified. Scattered atherosclerotic disease of the carotid s iphons. 3. Possible tiny 2 mm aneurysm of the moreno praclinoid right internal carotid arteries versus infundibulum. Likely inc idental. Sirisha López M.D., Ph.D. IMG MRI PROCEDURES CRP (C-Reactive Protein) (01/01/2021 10:03 AM CDT) P athologist Signature C-Reactive <3.0 <=8.0 mg/L 01/01/2021 DTL Protein (CRP), 11:08 AM CDT S Specimen Anatomical Collection Method Collection Time Receive d Time (Source) Location / / Volume Laterality Blood (Blood, 01/01/2021 10:03 01/01/2021 Venous) AM CDT 10:26 AM CDT Sirisha López M.D., Ph.D. LAB BLOOD ADD-ON Performing Organization Address City/State/ZIP Code Phon e Number [facility] - [address] [place], [place] [address] [facility] [address] [facility] [address] Sedimentation Rate (01/01/2021 10:03 AM CDT) Analysis Performed At Patho logist Time Signature Sedimentation 12 3 - 28 01/01/2021 DTL Rate, B mm/h 11:33 AM CDT Specimen Anatomical Collection Method Collection Time Receive d Time (Source) Location / / Volume Laterality Blood (Blood, 01/01/2021 10:03 01/01/2021 Venous) AM CDT 10:27 AM CDT Sirisha López M.D., Ph.D. LAB BLOOD ADD-ON Performing Organization Address City/State/ZIP Code Phon e Number [facility] - [address] [place], [place] [address] [facility] [address] [facility] [address] documented in this encounter Visit Diagnoses Diagnosis Amaurosis Fugax Amaurosis Fugax documented in this encounter
--- OUTSIDE RECORDS SUMMARY | 2022-03-26 22:25 | XMS_ITS | Encounter Summary ---
:1935 Author Organization [facility] Address [address] [place] [address] Care Team Providers Name Role Phone Unavailable Primary Care Provider Unavailable Reason for Referral MRI/CAT/PET Scan (Routine) - Closed Specialty Diagnoses / Procedures Referred By Contact Refer red To Contact Radiology Diagnoses Lung Interstitial Disease (HCC) René Robert M.D. [facility] Procedures CT Chest without IV Contrast [address] [place] [phone] Referral ID Status Reason Start Date Expiration Date Visits Requ ested Visits Authorized [id number] Closed 12/31/2020 12/31/2021 1 1 Reason for Visit MRI/CAT/PET Scan (Routine) - Closed Specialty Diagnoses / Procedures Referred By Contact Refer red To Contact Radiology Diagnoses Lung Interstitial Disease (HCC) René Robert M.D. [facility] Procedures CT Chest without IV Contrast [address] [place] [phone] Referral ID Status Reason Start Date Expiration Date Visits Requ ested Visits Authorized [id number] Closed 12/31/2020 12/31/2021 1 1 Encounter Details Date Type Department Care Team Description 12/31/2020 Hospital Encounter Department of René Robert Lung Interstitial RadiologyPepito M.D. Disease (HCC) Building, in [address] [place] [phone] [place] [address] [place], [place] (Work) [phone] Social History Tobacco Use Types Packs/Day Years [...] you attend taoist or Patient refused 2021 buddhism services? Do [...] place to sleep or slept in a penitentiary (including now)? Sex Assigned at Date Recorded [...] 2 (two) times a 0 2019 day. omega-3 fatty acids/fish Take 1 capsule by 0 07/0 10/2016 oil (OMEGA 3 FISH OIL mouth daily. ORAL) silver sulfADIAZINE Apply 1 application 0 019 (SILVADENE, SSD) 1 % topically as needed. cream triamcinolone (KENALOG) Apply 1 application 0 08/2020 0.1 % cream topically as needed. valsartan (DIOVAN) 320 Take 320 mg by mouth 0 10/2019 mg tablet daily. vitamin E 400 unit Take 1 capsule by 0 10/01/2011 capsule mouth daily. atorvastatin (LIPITOR) Take 0.5 tablets by 0 07/0 10/201601/10/2021 40 mg tablet mouth daily. glimepiride (AMARYL) 2 Take 2 mg by mouth 0 11/05/2021 mg tablet daily with breakfast. omeprazole (PriLOSEC) 20 Take 1 capsule by 0 05/201401/10/2021 mg capsule mouth 2 (two) times a day. salmon oil/omega-3 fatty Take 1 tablet by 0 11/1901/10/2021 acids (SALMON OIL-1000 mouth daily. ORAL) documented as of this encounter Plan of Treatment Not on filedocumented as of this encounter Procedures Procedure Name Priority Date/Time Associated Comments Diagnosis CT CHEST WITHOUT RAD - Routine 12/31/2020 5:36 Lung Interstitial Re sults for this IV CONTRAST (most inpatients PM CDT Disease (HCC) procedure are in and all the results outpatients) section. documented in this encounter Results CT Chest without IV Contrast (12/31/2020 5:36 PM CDT) Anatomical Region Laterality Modality Chest, Thoracic RST LOS, Thoracic ARZ N/A Co mputed Tomography, Computed LOS, Thoracic FLA LOS Tomography Specimen (Source) Anatomical Collection Method Collection Time Re ceived Time Location / / Volume Laterality 12/31/2020 5:22 PM CDT Impressions 12/31/2020 5:34 PM CDT 1. 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 2. Additional findings are detailed in t he body of the report. Narrative 12/31/2020 5:34 PM CDT EXAM: CT CHEST WITHOUT IV CONTRAST COMPARISON: Chest CT dated 12/14/2006 and 09/09/2007 FINDINGS: Lower lobe predominant subpleural coarse reticulations, architectural distortion, bronchiectasis and bronchiol ectasis have progressed since previous exams, with new areas of honeycombing. A lthough there is mild air trapping identified on the expiratory images, fin dings are compatible with usual interstitial pneumonitis. 1 mm solid non calcified anterior left upper lobe nodule on series 3 image 210 is minimall y more conspicuous since 2007, likely a granuloma. Similarly, a 1 mm solid nonca lcified left lower lobe nodule on series 3 image 325 has been stable since 2006. Mild diffuse bronchial wall thickening is again identified. The central trachea l bronchial tree is patent. No pleural effusion or thickening identified. Shotty subcentimeter nodes without thora cic adenopathy by size criteria. Moderate aortic and severe coronary shiloh ry calcifications. Aortic valve calcifications have progressed, could be seen in the setting of chronic aortic stenosis. Nonspecific tiny pericardial e ffusion is similar. Small sliding esophageal hiatal hernia i s unchanged. Moderate bilateral gynecomastia, new sin ce prior exam. The visualized upper abdomen is unremark able. Mild degenerative changes of the spine a re again identified, including multilevel mild compression fractures, s lightly progressed since prior exam. No aggressive osseous lesions identified. Thank you for the consultation. Procedure Note Giuliano Roy M.D. - 12/31/2020Formattin g of this note might be different from the original. EXAM: CT CHEST WITHOUT IV CONTRAST COMPARISON: Chest CT dated 12/14/2006 and 09/09/2007 FINDINGS: Lower lobe predominant subpleural coarse reticulations, architectural distortion, bronchiectasis and bronchiol ectasis have progressed since previous exams, with new areas of honeycombing. A lthough there is mild air trapping identified on the expiratory images, fin dings are compatible with usual interstitial pneumonitis. 1 mm solid non calcified anterior left upper lobe nodule on series 3 image 210 is minimall y more conspicuous since 2007, likely a granuloma. Similarly, a 1 mm solid nonca lcified left lower lobe nodule on series 3 image 325 has been stable since 2006. Mild diffuse bronchial wall thickening is again identified. The central trachea l bronchial tree is patent. No pleural effusion or thickening identified. Shotty subcentimeter nodes without thora cic adenopathy by size criteria. Moderate aortic and severe coronary shiloh ry calcifications. Aortic valve calcifications have progressed, could be seen in the setting of chronic aortic stenosis. Nonspecific tiny pericardial e ffusion is similar. Small sliding esophageal hiatal hernia i s unchanged. Moderate bilateral gynecomastia, new sin ce prior exam. The visualized upper abdomen is unremark able. Mild degenerative changes of the spine a re again identified, including multilevel mild compression fractures, s lightly progressed since prior exam. No aggressive osseous lesions identified. Thank you for the consultation. IMPRESSION: 1. 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 2. Additional findings are detailed in t he body of the report. René MCNULTY CT PROCEDURES documented in this encounter Visit Diagnoses Diagnosis Lung Interstitial Disease (HCC) documented in this encounter
--- OUTSIDE RECORDS SUMMARY | 2022-03-26 22:25 | XMS_ITS | Encounter Summary ---
:1935 Author Organization [facility] Address [address] [place] [address] Care Team Providers Name Role Phone Unavailable Primary Care Provider Unavailable Reason for Referral Outpatient (Routine) - Closed Specialty Diagnoses / Procedures Referred By Contact Refer red To Contact Diagnoses Dyspnea On Exertion [facility]an[facility]horacic (TTE) WANDA, C.N.P., D.N.P. [address] [place] [id number] Referral ID Status Reason Start Date Expiration Date Visits Requ ested Visits Authorized [id number] Closed 11/22/2020 11/22/2021 1 1 Reason for Visit Outpatient (Routine) - Closed Specialty Diagnoses / Procedures Referred By Contact Refer red To Contact Diagnoses Dyspnea On Exertion [facility] Transthoracic (TTE) WANDA, C.N.P., D.N.P. [address] [place] [id number] Referral ID Status Reason Start Date Expiration Date Visits Requ ested Visits Authorized [id number] Closed 11/22/2020 11/22/2021 1 1 Encounter Details Date Type Department Care Team Description 12/17/2020 Hospital Encounter Department of Amanda, Dyspnea On Exertion; Cardiovascular Diseases Dominga Baez ure Heart (HCC) in [facility] WANDA, C.N.PSimon, [address] [facility] Akin[facility] [place], [place] [address] [place] [phone] [place] [phone] Social History Tobacco Use Types Packs/Day Years [...] or relatives? How often do you attend roman catholic or Patient refused 2021 worship services? Do you belong to any clubs or No 12/31/2021 organizations such as roman catholic groups, unions, fraternal or athletic groups, or [...] tablet (two) times a day with meals. Eliquis 5 mg tablet 5 mg 2 (two) times a 0 2019 day. omega-3 fatty acids/fish Take 1 capsule by 0 0 10/2016 oil (OMEGA 3 FISH OIL [...] (PriLOSEC) 20 Take 1 capsule by 0 07/0 05/201401/10/2021 mg capsule mouth 2 (two) times a day. salmon oil/omega-3 fatty Take 1 tablet by 0 11/1901/10/2021 acids (SALMON OIL-1000 mouth daily. ORAL) spironolactone Take 50 mg by mouth 0 04/13/2020 0 12/31/2020 (ALDACTONE) 50 mg tablet once. documented as of this encounter Plan of Treatment Not on filedocumented as of this encounter Procedures Procedure Name Priority Date/Time Associated Diagnosis Comme nts (TTE) 2D ECHO Routine 12/17/2020 3:17 PM Dyspnea On Ex ertion Results for this DOPPLER COLOR CDT Failure Heart (HCC) procedu re are in the results section. documented in this encounter Results (TTE) 2D ECHO DOPPLER COLOR (12/17/2020 3:17 PM CDT) [facility] Method Time Signature Ejection Fraction 55 MC CV EIMS Sinus of Valsalva 39 MC CV EIMS Sinotubular Junction 30 MC CV EIM S Proximal Ascending 34 MC CV EIMS Aorta Mid-Ascending Aorta 36 MC CV EIMS LV Mass Index 116 MC CV EIMS LV End-Diastolic 58 MC CV EIMS Diameter LV End-Systolic 41 MC CV EIMS Diameter LV End-Diastolic 164 MC CV EIMS Volume LV End-Systolic 75 MC CV EIMS Volume MV E Velocity 0.7 MC CV EIMS MV A Velocity 1.1 MC CV EIMS MV E/A 0.64 MC CV EIMS MV e' Velocity 0.07 MC CV EIMS Medial MV e' Velocity 0.08 MC CV EIMS Lateral MV E/e' Medial 10.0 MC CV EIMS MV E/e' Lateral 8.8 MC CV EIMS Left ventricular 43 MC CV EIMS stroke volume index Cardiac Output 6.28 MC CV EIMS Cardiac Index 2.95 MC CV EIMS LV Interventricular 11 MC CV EIMS Septal Wall Thickness LV Posterior Wall 10 MC CV EIMS Thickness LV Relative Wall 34 MC CV EIMS Thickness TAPSE 28 MC CV EIMS Tricuspid Annular S? 0.14 MC CV EIMS TR Vmax 2.96 MC CV EIMS RA Pressure 5 MC CV EIMS RV Systolic Pressure 40 MC CV EIM S AV mean gradient 24 MC CV EIMS Aortic valve area 1.30 MC CV EIMS Aortic Valve Area 0.61 MC CV EIMS Index Aortic Valve 0.24 MC CV EIMS Dimensionless Index LA Volume Index 44 MC CV EIMS Anatomical Region Laterality Modality Echocardiography Specimen (Source) Anatomical Collection Method Collection Time Re ceived Time Location / / Volume Laterality 12/17/2020 2:29 PM CDT Impressions 12/17/2020 3:37 PM CDT LEFT VENTRICLE: ??Borderline enlarged left ventricular chamber size. ??Abnormal left ventricular geometry with eccentric left ventricular hypertrophy. ??Calculated 2-D linear left ventricular ejection fraction 55 %. ??No regional wa ll motion abnormalities. ??Grade 1/3 left ventricular diastolic dysfunction, consistent with l ow to normal left ventricular filling pressure. ??RIGHT VENTRICLE: ??Normal right ventricular ch arun size. ??Normal right ventricular systolic function. Estimated right ventricular systolic pr essure 40 mmHg (systolic blood pressure 162 mmHg). ATRIA: ??Moderately enlarged left atrial size. ??Left atrial volume index 44 ml/m^2. ??Normal right atrial size. ??CARDIAC VALVES: ??T rileaflet aortic valve. ??Moderate aortic valve stenosis. Aortic valve systolic mean Doppler gradi ent 24 mmHg. ??Aortic valve area by Doppler 1.30 cm^2. No aortic valve regurgitation. ??Mildly calcified mitral annulus. ??Trivial mitral valve regurgitation. ??Normal pulmonary valve. ??Normal pulmonary valve systolic velocities. ??Trivial pulmonary valve regurgitation. ??Normal tricuspid valve. ??Trivial tricuspid valve regurgitation. OTHER ECHO FINDINGS: ??Normal inferior vena cava size with normal inspiratory collapse (>50%). Normal sinus of Valsalva diameter (diame ter 39 mm). ??Normal mid ascending aorta diameter (diameter 36 mm at mid level). ??Abdomin al aorta incompletely visualized. ??Normal abdominal aorta Doppler flow pattern. ??Imaging in adequate for detection of atrial level shunt by color flow imaging. ??No intracardiac mass or thrombus, but the left atrial appendage cannot be visualized adequately with transthoracic echo to exclude thrombus in this location. ??Small anterior pericardial effusion. For the complete report, see the [employer] Documents. Narrative 12/17/2020 3:37 PM CDT For the complete report, see the [employer] Documents. Final Impressions 1. Borderline enlarged left ventricular chamber size. ??Calculated ejection fraction 55%. 2. No regional wall motion abnormalities . 3. Grade 1/3 left ventricular diastolic dysfunction, consistent with low to normal left ventricular filling pressure. 4. Normal right ventricular chamber size and systolic function. 5. Estimated right ventricular systolic pressure 40 mmHg (systolic blood pressure 162 mmHg). 6. Moderate aortic valve stenosis. ??Karon n gradient 24 mmHg. ??Valve area 1.30 cm2. Procedure Note Nerissa Levine M.D. - 12/17/2020 For the complete report, see the [employer] Documents. Final Impressions 1. Borderline enlarged left ventricular chamber size. Calculated ejection fraction 55%. 2. No regional wall motion abnormalities . 3. Grade 1/3 left ventricular diastolic dysfunction, [...] 1/3 left ventricular diastolic dysfunction, consistent with l ow to normal left ventricular filling pressure. RIGHT VENTRICLE: Normal right ventricular romina martín size. Normal right ventricular systolic function. Estimated right ventricular systolic pr essure 40 mmHg (systolic blood pressure 162 mmHg). ATRIA: Moderately enlarged left atrial s ize. Left atrial volume index 44 ml/m^2. Normal right atrial size. CARDIAC VALVES: Trile aflet aortic valve. Moderate aortic valve stenosis. Aortic valve systolic mean Doppler gradi ent 24 mmHg. Aortic valve area by Doppler 1.30 cm^2. No aortic valve regurgitation. Mildly ca lcified mitral annulus. Trivial mitral valve regurgitation. Normal pulmonary valve. N ormal pulmonary valve systolic velocities. Trivial pulmonary valve regurgitation. Normal tr icuspid valve. Trivial tricuspid valve regurgitation. OTHER ECHO FINDINGS: Normal inferior ve na cava size with normal inspiratory collapse (>50%). Normal sinus of Valsalva diameter (diame ter 39 mm). Normal mid ascending aorta diameter (diameter 36 mm at mid level). Abdominal aorta incompletely visualized. Normal abdominal aorta Doppler flow pattern. Imaging inad equate for detection of atrial level shunt by color flow imaging. No intracardiac mass or th rombus, but the left atrial appendage cannot be visualized adequately with transthoracic echo to exclude thrombus in this location. Small anterior pericardial effusion. For the complete report, see the [employer] Documents. Ashwiin Patel APRN, C.N.P., D.N.P. CV ECHO PROCED URES documented in this encounter Visit Diagnoses Diagnosis Dyspnea On Exertion Failure Heart (HCC) documented in this encounter
--- OUTSIDE RECORDS SUMMARY | 2022-03-26 22:25 | XMS_ITS | Encounter Summary ---
:1935 Author Organization [facility] Address [address] [place] [address] Care Team Providers Name Role Phone Unavailable Primary Care Provider Unavailable Reason for Visit Outpatient (Routine) - Closed Specialty Diagnoses / Procedures Referred By Contact Refer red To Contact Cardiovascular Disease René Robert [place] M.D. [address] [place] [phone] Referral ID Status Reason Start Date Expiration Date Visits Requ ested Visits Authorized [id number] Closed 12/31/2020 12/31/2021 1 1 Encounter Details Date Type Department Care Team Description 01/02/2021 Office Visit Department of René Robert, Dyspnea On Exertion Cardiovascular Medicine MShannan (Primary Dx) in [facility] [address] [place] [address] [address] [place] [phone] Social History Tobacco Use Types Packs/Day Years [...] or relatives? How often do you attend evangelical or Patient refused 2021 roman catholic services? Do you belong to any clubs or No 12/31/2021 organizations such as evangelical groups, unions, fraternal or athletic groups, or [...] place to sleep or slept in a fdc (including now)? Sex Assigned at Date Recorded Male 12/31/2021 3:41 PM CDT documented as of this encounter Progress Notes René Robert M.D. - 01/02/2021 5:30 PM CDT ASSESSMENT / PLAN Mr. Garcia returns to test results and consultation recommendations. We are immensely grateful for the expert help of our colleagues in Neurology and Ophthalmology. His chest CT scan shows evidence of interstitial pneumonitis but this is not the likely explanation for all of his symptoms since heis noted at home has oximetry measurements show no desaturation. The CT scan also shows quite significant calcification of all coronary arteries. Thus, we should plan to proceed with diagnostic right and left heart catheterization to assess the aortic valve, the possibility of heart failure with preserved ejection fraction as well as coronary disease with possible PTCA. He would prefer to do this next and so this date has been requested along with a catheterization visit nurse visit for when he is here early next week. I have discussed with him the potential risks of angioplasty including procedure related infarction as well as beingNPO after midnight the night before in using Plavix pre procedure as well as stopping his Eliquis three days ahead of the procedure. 30 minutes total time documented in this encounter Plan of Treatment Not on filedocumented as of this encounter Visit Diagnoses Diagnosis Dyspnea On Exertion - Primary documented in this encounter
--- OUTSIDE RECORDS SUMMARY | 2022-03-26 22:25 | XMS_ITS | Encounter Summary ---
:1935 Author Organization [facility] Address [address] [place] [address] Care Team Providers Name Role Phone Unavailable Primary Care Provider Unavailable Encounter Details Date Type Department Care Team Description 01/02/2021 Ancillary Procedure Department of Ophthalmology Social History [...] attend jehovah's witness or Patient refused 2021 shinto services? Do you belong to any clubs or No 12/31/2021 organizations such as jehovah's witness groups, unions, fraternal or athletic groups, or [...] Date/Time Associated Comments Diagnosis OPHTHALMOLOGY IMAGE Routine 01/02/2021 12:00 Resu lts for this EXAM AM CDT procedure are i n the results section. documented in this encounter Results Eyes Spectralis OCT-Ophthalmology Image Exam (01/02/2021 12:00 AM CDT) Specimen (Source) Anatomical Location Collection Method / Collectio n Time Received Time / Laterality Volume Narrative IIMS - 01/02/2021 9:38 AM CDT This order has been created and [...]
--- OUTSIDE RECORDS SUMMARY | 2022-03-26 22:25 | XMS_ITS | Encounter Summary ---
:1935 Author Organization [facility] Address [address] [place] [address] Care Team Providers Name Role Phone Unavailable Primary Care Provider Unavailable Encounter Details Date Type Department Care Team Description 01/01/2021 Hospital Encounter Department of Sirisha López Am aurosis [facility] Laboratory Medicine M.D., Ph.D. and Pathology, [address] in [place], [place] [phone] [place] [address] [place], [place] (Work) [phone] Social History Tobacco Use Types Packs/Day Years [...] or relatives? How often do you attend latter day or Patient refused 2021 hinduism services? Do you belong to any clubs or No 12/31/2021 organizations such as latter day groups, unions, fraternal or athletic groups, or [...] capsule by 0 10/01/2011 capsule mouth daily. aspirin, buffered, 325 Take 1 tablet (325 mg 30 tablet 11 01/11/2021 mg tablet total) by mouth daily. atorvastatin (LIPITOR) Take 0.5 tablets [...] Associated Comments Diagnosis SEDIMENTATION RATE, B Routine 01/01/2021 10:03 Amaurosis Fugax Results for this AM CDT procedure are i n the results section. C-REACTIVE PROTEIN Routine 01/01/2021 10:03 Amaurosis Fugax Re sults for this (CRP), S/P AM CDT procedure are i n the results section. documented in this encounter Results CRP (C-Reactive Protein) (01/01/2021 10:03 AM CDT) P athologist Signature C-Reactive <3.0 <=8.0 mg/L 01/01/2021 DTL Protein (CRP), 11:08 AM CDT S Specimen Anatomical Collection Method Collection Time Receive d Time (Source) Location / / Volume Laterality Blood (Blood, 01/01/2021 10:03 01/01/2021 Venous) AM CDT 10:26 AM CDT Sirisha López M.D., Ph.D. LAB BLOOD ADD-ON Performing Organization Address City/[facility] Phon e Number [facility] - [address] Sedimentation Rate (01/01/2021 10:03 AM CDT) Analysis Performed At Patho logist Time Signature Sedimentation 12 3 - 28 01/01/2021 DTL Rate, B mm/h 11:33 AM CDT Specimen Anatomical Collection Method Collection Time Receive d Time (Source) Location / / Volume Laterality Blood (Blood, 01/01/2021 10:03 01/01/2021 Venous) AM CDT 10:27 AM CDT Sirisha López M.D., Ph.D. LAB BLOOD ADD-ON Performing Organization Address City/State/[facility] Phon e Number [facility] - [address] documented in this encounter Visit Diagnoses Diagnosis Amaurosis Fugax documented in this encounter
--- OUTSIDE RECORDS SUMMARY | 2022-03-26 22:25 | XMS_ITS | Encounter Summary ---
:1935 Author Organization [facility] Address [address] [place] [address] Care Team Providers Name Role Phone Unavailable Primary Care Provider Unavailable Encounter Details Date Type Department Care Team Description 01/02/2021 Procedure visit Department of VirgilJose M.D. [address] [place] [phone] Diabetes Mellitus Ophthalmology in Cintia Lowe, R.N. 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 Do you belong to any clubs [...] documented as of this encounter Progress Notes Cintia Lowe R.N. - 01/02/2021 9:00 AM CDT Patient was assessed by RN for Fluorescein Angiogram or Fluorescein/Indocyanine Green Angiogram. REQUIRED EDUCATION completed: * Ensure patients who received Fluorescein are aware that they may have bright yellow urine following the test for up to 48 hours. * Recommend patient to have someone else drive patient home or wait several hours before driving home. Patient fits discharge criteria; IV removed. Dr. Herman is the authorized prescriber who directed the protocol. Patient creatinine is: 1.21 Adverse reactions noted: none *Patient provided nursing with verbal authorization to photograph both eyes. documented in this encounter Plan of Treatment Not on filedocumented as of this encounter Procedures Procedure Name Priority Date/Time Associated Diagnosis Comme nts ANGIOGRAPHY - OU - Routine 01/02/2021 10:12 Diabetes Mellitus Results for this BOTH EYES AM CDT Type 2 With procedure are i n Proliferative the results Diabetic Retinopathy section . Without Macular Edema Bilateral (HCC) documented in this [...] (HCC) - Primary documented in this encounter Administered Medications Inactive Administered Medications - up to 3 most recent administrations Medication Order MAR Action Action Date Dose Rate Site fluorescein 500 mg/5 mL (10 %) Given 01/02/2021 9:53 AM CDT 500 mg injection 500 mg (AK-FLUOR/FLUORESCEIN) 500 mg, intravenous, Once in imaging, contrast, Starting on Thu12/31/20 at 1424, For 1 dose sodium chloride 0.9 % injection 3 mL Given 01/02/2021 9:53 AM CDT 3 mL 3 mL, intravenous, As needed, line care, Peripheral Intravenous Catheter and Rapid Infusion Catheter, Starting on Thu01/02/21 at 0853, For 1 day, Prior to and following infusion and between multiple consecutive infusions. Given 01/02/2021 9:09 AM CDT 3 mL documented in this encounter
--- OUTSIDE RECORDS SUMMARY | 2022-03-26 22:25 | XMS_ITS | Encounter Summary ---
:1935 Author Organization [facility] Address [address] [place] [address] Care Team Providers Name Role Phone Unavailable Primary Care Provider Unavailable Reason for Referral MRI/CAT/PET Scan (Routine) - Closed Specialty Diagnoses / Procedures Referred By Contact Refer red To Contact Radiology Diagnoses Lung Interstitial Disease (HCC) René Robert M.D. [facility] Procedures CT Chest without IV Contrast [address] [place] [phone] Referral ID Status Reason Start Date Expiration Date Visits Requ ested Visits Authorized [id number] Closed 12/31/2020 12/31/2021 1 1 Outpatient (Routine) - Closed Specialty Diagnoses / Procedures Referred By Contact Refer red To Contact Neurology Diagnoses Amaurosis Fugax René Robert M.D. 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 [address] [place] [phone] Referral ID Status Reason Start Date Expiration Date Visits Requ ested Visits Authorized [id number] Closed 11/20/2020 11/20/2021 1 1 Encounter Details Date Type Department Care Team Description 12/31/2020 Comprehensive Visit Department of René Robert sis Fugax (Primary Dx); Cardiovascular L, M.D. 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 Do you belong to any clubs [...] Sign Reading Time Taken Comments Blood Pressure 169/63 12/31/2020 10:11 AM CDT Pulse 69 12/31/2020 10:11 AM CDT Temperature - - Respiratory Rate - - Oxygen Saturation - - Inhaled Oxygen Concentration - - Weight 100 kg (220 lb 10.9 oz) 12/31/2020 10:10 AM CDT Height 173.9 cm (5' 8.47) 12/31/2020 10:10 AM CDT Body Mass Index 33.1 12/31/2020 10:10 AM CDT documented in this encounter Consult Notes René Robert M.D. - 12/31/2020 10:15 AM CDT REFERRAL SOURCE Dung Barry M.B., .B. [address] [place] [address] CHIEF COMPLAINT / REASON FOR VISIT Dyspnea [...] He had a coronary angiogram done in [place] in 2012 and a subsequent coronary angiogram was done at [facility] in [place]. The latter was done probably several years [...] and a referral was apparently made to [place] [facility] for urgent evaluation. He has known [...] blood counts being stable also mean that wedo not have to worry about anemia as [...] M.D. 12/31/2020 ?? documented in this encounter Plan of Treatment Scheduled Referrals Name Type Priority Associated Diagnoses Order S [facility] Neurology - General Outpatient Referral Routine Amaurosis Fuga x Expected: consult (clinic) 12/31/2020 (Approximate), Expires: 01/01/2024 documented as of this encounter Results CT Chest without IV [...] 210 is minimall y more conspicuous since 2008, likely a granuloma. Similarly, a 1 mm solid nonca lcified left lower lobe nodule on series 3 image 325 has been stable since 2007. 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
--- OUTSIDE RECORDS SUMMARY | 2022-03-26 22:25 | XMS_ITS | Encounter Summary ---
:1935 Author Organization [facility] Address [address] [place] [address] Care Team Providers Name Role Phone Unavailable Primary Care Provider Unavailable Encounter Details Date Type Department Care Team Description 12/17/2020 Hospital Encounter Department of Amanda, Dyspnea On Exertion; Radiology, [place] Ashwini Burgess APRN, Failure H eart ([facility], in C.N.P., D.N.P. [place], [place] [address] [place] [phone] Social History Tobacco Use Types Packs/Day Years [...] or relatives? How often do you attend taoism or Patient refused 2021 judaism services? Do you belong to any clubs or No 12/31/2021 organizations such as taoism groups, unions, fraternal or athletic groups, or [...] Procedure Name Priority Date/Time Associated Comments Diagnosis DX CHEST AP OR PA RAD - Routine 12/17/2020 10:14 Dyspnea On Resul ts for this AND LATERAL 2 (most inpatients AM CDT Exertion procedure are in VIEWS and all Failure Heart the results outpatients) (HCC) section. documented in this encounter Results DX Chest AP or PA and Lateral 2 Views (12/17/2020 10:14 AM CDT) Anatomical Region Laterality Modality Chest, Thoracic RST LOS, Thoracic ARZ LOS, Thoracic N/A Digital Radiography FLA LOS Specimen (Source) Anatomical Collection Method Collection Time Re ceived Time Location / / Volume Laterality 12/17/2020 11:08 AM CDT Impressions 12/17/2020 11:11 AM CDT Since 12/19/2014, increased peripheral lower lung predominant reticulation, especially on the left, in dicating interstitial fibrosis. Heart size at the upper limits of normal. Mild bilateral volume loss. Surgical clips. Narrative 12/17/2020 11:11 AM CDT EXAM: ??DX CHEST AP OR PA AND LATERAL 2 VIEWS Procedure Note Agustin Miranda M.D. - 12/17/2020Formatt ing of this note might be different from the original. EXAM: DX CHEST AP OR PA AND LATERAL 2 EWS IMPRESSION: Since 12/19/2014, increased peripheral l ower lung predominant reticulation, especially on the left, in dicating interstitial fibrosis. Heart size at the upper limits of normal. Mild bilateral volume loss. Surgical clips. Ashwini Patel APRN, C.N.P., D.N.P. IMG DIAGNOSTIC IMAGING PROCEDURES documented in this encounter Visit Diagnoses Diagnosis Dyspnea On Exertion Failure Heart (HCC) documented in this encounter
--- OUTSIDE RECORDS SUMMARY | 2022-03-26 22:25 | XMS_ITS | Encounter Summary ---
:1935 Author Organization [facility] Address [address] [place] [address] Care Team Providers Name Role Phone Unavailable Primary Care Provider Unavailable Encounter Details Date Type Department Care Team Description 01/02/2021 Silent Schedule Department of Jose Herman, Ophthalmology in [place], [place] [address] [place] [phone] (Wo rk) Social History Tobacco Use Types [...] or relatives? How often do you attend voodoo or Patient refused 2021 moravian services? Do you belong to any clubs or No 12/31/2021 organizations such as voodoo groups, unions, fraternal or athletic groups, or [...] Bilateral (HCC) documented in this encounter Results Fundus [...]
--- OUTSIDE RECORDS SUMMARY | 2022-03-26 22:25 | XMS_ITS | Encounter Summary ---
:1935 Author Organization [facility] Address [address] [place] [address] Care Team Providers Name Role Phone Unavailable Primary Care Provider Unavailable Encounter Details Date Type Department Care Team Description 01/02/2021 Ancillary Procedure Department of Jose Herman, Ophthalmology in [place], [place] [address] [place] [phone] Social History Tobacco Use Types Packs/Day Years [...] you attend quaker or Patient refused 2021 taoist services? Do you belong to any clubs [...] place to sleep or slept in a prison (including now)? Sex Assigned at Date Recorded [...] Volume Narrative OPHTHALMOLOGY IMAGING EXAM - 01/03/20 11:04 AM CDT Right Eye Dye used [...]
--- OUTSIDE RECORDS SUMMARY | 2022-03-26 22:25 | XMS_ITS | Encounter Summary ---
:1935 Author Organization [facility] Address [address] [place] [address] Care Team Providers Name Role Phone Elsewhere, Pcp Primary Care Provider Unavailable Reason for Visit Reason Comments Appointment Encounter Details Date Type Department Care Team Description 12/31/2020 Clinical Communication Department of Provider, Appo intment Ophthalmology in [place], [place] [address] [place] [address] Social History Tobacco Use Types Packs/Day Years [...] or relatives? How often do you attend congregation or Patient refused 2021 yazidism services? Do you belong to any clubs or No 12/31/2021 organizations such as congregation groups, unions, fraternal or athletic groups, or [...] place to sleep or slept in a longterm (including now)? Sex Assigned at Date Recorded Male 12/31/2021 3:41 PM CDT documented as of this encounter Miscellaneous Notes Telephone Encounter - Melissa Webb Urszula - 12/31/2020 12:02 PM CDT Per the [facility] received today, patient has diabetic retinopathy and is referred to [facility]. I've entered the corrected info for referring provider, and diagnosis per the [facility] - I can call patient after my lunch about scheduling if you haven't had a chance. documented in this encounter Plan of Treatment Not on filedocumented as of this encounter Visit Diagnoses Not on filedocumented in this encounter Additional Health Concerns Infection Onset Date Last Indicated Resolved Time COVID19 Pending 01/08/2021 01/08/2021 01/08/2021 4:11 PM CDT documented as of this encounter Care Teams Music Internship Relationship Specialty Start Date End Date Elsewhere, Pcp PCP - General Family Medicine 01/10/21 documented as of this encounter
--- OUTSIDE RECORDS SUMMARY | 2022-03-26 22:25 | XMS_ITS | Encounter Summary ---
:1935 Author Organization [facility] Address [address] [place] [address] Care Team Providers Name Role Phone Unavailable Primary Care Provider Unavailable Encounter Details Date Type Department Care Team Description 01/02/2021 Silent Schedule Department of Ophthalmology Brayden Mcmahon in [facility] glendy Laird M.D. [address] [facility] [address] [place] [address] [place], [place] [phone] (Wo rk) Social History Tobacco Use Types [...] you attend evangelical or Patient refused 2021 jainism services? Do [...] nts FUNDUS PHOTOS - OU Routine 01/02/2021 9:48 AM Diabetes Mellitu s Type Results for this - BOTH EYES CDT 2 With Proliferative procedu re are in Diabetic Retinopathy the res ults Without Macular Edema sectio n. Bilateral (HCC) documented in this encounter Results Fundus Photos - OU - Both Eyes (01/02/2021 9:48 AM CDT) Specimen (Source) Anatomical Location Collection Method / Collectio n Time Received Time / Laterality Volume Narrative OPHTHALMOLOGY IMAGING EXAM - 01/03/20 10:58 AM CDT Right Eye Field of view is ultra-wide view. Fundus photo type obtained is Color, Autofluorescence. Left Eye Field of view is ultra-wide view. Fundus photo type obtained is Autofluorescence, Color. Notes Autofluorescence: ?? Right eye-there are areas of hypo autofl uorescence on the temporal retina consistent with preretinal blood. Left eye-within normal limits. Brayden Mcmahon M.D. OPHTH PHOTOGRAPHY Performing Organization Address City/State/ZIP Code Phon e Number OPHTHALMOLOGY IMAGING EXAM documented in this encounter Visit Diagnoses Not on filedocumented in this encounter
--- OUTSIDE RECORDS SUMMARY | 2022-03-26 22:25 | XMS_ITS | Encounter Summary ---
:1935 Author Organization [facility] Address [address] [place] [address] Care Team Providers Name Role Phone Unavailable Primary Care Provider Unavailable Encounter Details Date Type Department Care Team Description 12/17/2020 Hospital Encounter Department of [facility], Dyspnea On Exertion; Laboratory Medicine Ashwini Burgess APRN, Failu Heart ([facility]) and Pathology, C.N.P., D.N.PLouann, in [address] [place], [place] [address] [facility] [address] [place], [place] [phone] (Work) [phone] Social History Tobacco Use Types Packs/Day Years [...] you attend congregation or Patient refused 2021 protestant services? Do you belong to any clubs [...] Date/Time Associated Comments Diagnosis SPSMA RESULT Routine 12/17/2020 9:21 AM Results f or this CDT procedure are i n the results section. NT-PRO B-TYPE Routine 12/17/2020 9:21 AM Dyspnea On Ex ertion Results for this NATRIURETIC PEPTIDE CDT Failure Heart (HCC) p rocedure are in (BNP), S the results section. CBC WITH DIFFERENTIAL, Routine 12/17/2020 9:21 AM Dyspne a On Exertion Results for this B CDT Failure Heart (HCC) procedur e are in the results section. COMPREHENSIVE Routine 12/17/2020 9:21 AM Dyspnea On Ex ertion Results for this METABOLIC PANEL, S/P CDT Failure Heart (HCC) procedure are in the results section. documented in this encounter Results (ABNORMAL) Morphology Evaluation (Special Smear) (12/17/2020 9:21 AM CDT) [employer] Method Time Signature Neutrophilic Segs 12 (L) 50 - 75 % 12/17/2020 [facility] 11:38 AM CDT Lymphocytes 86 (H) 18 - 42 % 12/17/2020 [facility] 11:38 AM CDT Monocytes 1 (L) 2 - 11 % 12/17/2020 [facility] 11:38 AM CDT Eosinophils 1 1 - 3 % 12/17/2020 [facility] 11:38 AM CDT Fragile Cells Moderate 12/17/2020 [facility] 11:38 AM CDT Manual Absolute 5.47 1.56 - 12/17/2020 [facility] Neutrophil Count 6.45 11:38 AM CDT x10(9)/L Comment: ----ADDITIONAL INFORMATION---- The manual absolute neutrophil count is derived from a manual differential count and therefore is not exactly comparable to the automated absolute celso trophil count. Interpretation SeeComment 12/17/2020 11:38 AM CDT [facility] Comment: The blood smear findings are consistent with the previous diagnosis of chronic lymphocytic leukemia. Reviewed by: Tech 12/17/2020 11:38 AM CDT [facility] Specimen Anatomical Collection Method Collection Time Receive d Time (Source) Location / / Volume Laterality Blood 12/17/2020 9:21 AM 9:58 CDT AM CDT Ashwini Patel APRN, C.N.P., D.N.P. LAB BLOOD ADD- ON Performing Organization Address City/State/ZIP Code Phon e Number [facility] - [address] [place], [place] [address] [place] [address] [facility] [address] (ABNORMAL) NT-Pro B-Type Natriuretic Peptide (BNP) (12/17/2020 9:21 AM CDT) athologist Signature NT-Pro BNP 511 (H) <=138 pg/mL 12/17/2020 [facility]TL 12:37 PM CDT Comment: NT-proBNP values less than 300 pg/mL hav e a 99% negative predictive value for excluding acute congestive heart gomez lure. A cutoff of 1200 pg/mL for patients with an eGFR<60 yields a diagno stic sensitivity and specificity of 89% and 72% for acute congestive heart f ailure. ??A diagnostic NT-proBNP cutoff of 1800 pg/mL has been suggested in adults over 75 years of age in the absence of renal failure. Specimen Anatomical Collection Method Collection Time Receive d Time (Source) Location / / Volume Laterality Blood (Blood, 12/17/2020 9:21 AM 12/18/19 9:47 Venous) CDT AM CDT Ashwini Patel APRN, C.N.P., D.N.P. LAB BLOOD ADD- ON Performing Organization Address City/State/ZIP Code Phon e Number [facility] - [address] [place], [place] [address] [facility] [place] [address] [facility] 200 [facility] (ABNORMAL) Comprehensive Metabolic Panel (12/17/2020 9:21 AM CDT) athologist Signature Potassium, S 4.5 3.6 - 5.2 12/17/2020 DTL mmol/L 12:37 PM CDT Sodium, S 143 135 - 145 12/17/2020 DTL mmol/L 12:37 PM CDT Chloride, S 106 98 - 107 12/17/2020 DTL mmol/L 12:37 PM CDT Bicarbonate, S 26 22 - 29 12/17/2020 DTL mmol/L 12:37 PM CDT Anion Gap 11 7 - 15 12/17/2020 DTL 12:37 PM CDT BUN (Blood Urea 20 8 - 24 12/17/2020 DTL Nitrogen), S mg/dL 12:37 PM CDT Creatinine 1.21 0.74 - 12/17/2020 DTL 1.35 mg/dL 12:37 PM CDT eGFR-Non 54 (L) >=60 12/17/2020 DTL Black/ mL/min/BSA 12:37 PM CDT [place] Comment: ----ADDITIONAL INFORMATION---- Estimated GFR calculated using the 2009 CKD_EPI creatinine equation. eGFR-Black/ 63 >=60 mL/min/BSA 2020 12:37 PM CDT DTL Comment: ----ADDITIONAL INFORMATION---- Estimated GFR calculated using the 2009 CKD_EPI creatinine equation. Calcium, Total, S 9.5 8.8 - 10.2 mg/dL 12/17/2020 12:3 7 PM CDT DTL Glucose, S 134 70 - 140 mg/dL 12/17/2020 12:37 PM CDT DTL Protein, Total, S 6.0 (L) 6.3 - 7.9 g/dL 12/17/2020 12:37 PM CDT DTL Albumin, S 4.2 3.5 - 5.0 g/dL 12/17/2020 12:37 PM CDT DTL Aspartate Aminotransferase 20 8 - 48 U/L 12/17/2020 1 2:37 PM CDT DTL (AST), S Alkaline Phosphatase, S 106 40 - 129 U/L 12/17/2020 12 :37 PM CDT DTL Alanine Aminotransferase 17 7 - 55 U/L 12/17/2020 12: 37 PM CDT DTL (ALT), S Bilirubin, Total, S 0.4 <=1.2 mg/dL 12/17/2020 12:37 P M CDT DTL Specimen Anatomical Collection Method Collection Time Receive d Time (Source) Location / / Volume Laterality Blood (Blood, 12/17/2020 9:21 AM 12/18/19 9:47 Venous) CDT AM CDT Ashwini Patel APRN, C.N.P., D.N.P. LAB BLOOD ADD- ON Performing Organization Address City/State/ZIP Code Phon e Number [facility] - [address] [place], [place] [address] [facility] [place] [address] [facility] [address] (ABNORMAL) CBC with Differential, Blood (12/17/2020 9:21 AM CDT) [facility] gist Method Time Signature Hemoglobin 11.8 (L) 13.2 - 12/17/2020 DTL 16.6 g/dL 10:40 AM CDT Hematocrit 38.4 38.3 - 12/17/2020 DTL 48.6 % 10:40 AM CDT Erythrocytes 4.14 (L) 4.35 - 12/17/2020 DTL 5.65 10:40 AM CDT x10(12)/L MCV 92.8 78.2 - 12/17/2020 DTL 97.9 fL 10:40 AM CDT RBC Distrib Width 14.7 (H) 11.8 - 12/17/2020 DTL 14.5 % 10:40 AM CDT Platelet Count 193 135 - 317 12/17/2020 DTL x10(9)/L 10:40 AM CDT Leukocytes 45.6 (H) 3.4 - 9.6 12/17/2020 DTL x10(9)/L 11:38 AM CDT Comment: Results confirmed by smear. Neutrophils SeeComment 1.56 - 6.45 x10(9)/L 12/17/2020 11:38 AM CDT DTL Comment: Auto-diff results not valid. Se e manual differential. Specimen Anatomical Collection Method Collection Time Receive d Time (Source) Location / / Volume Laterality Blood (Blood, 12/17/2020 9:21 AM 12/18/19 9:58 Venous) CDT AM CDT Ashwini Patel APRN, C.N.P., D.N.P. LAB BLOOD ADD- ON Performing Organization Address City/State/ZIP Code Phon e Number [facility] - [address] [place], [place] [address] [facility] [place] [address] [facility] [address] documented in this encounter Visit Diagnoses Diagnosis Dyspnea On Exertion Failure Heart (HCC) documented in this encounter
--- OUTSIDE RECORDS SUMMARY | 2022-03-26 22:25 | XMS_ITS | Encounter Summary ---
:1935 Author Organization [facility] Address [address] [place] [address] Care Team Providers Name Role Phone Unavailable [...] you attend christianity or Patient refused 2021 pentecostalism services? Do you belong to any clubs [...] Associated Comments Diagnosis OPHTHALMOLOGY IMAGE Routine 01/02/2021 9:40 AM Re sults for this EXAM CDT procedure are i n the results section. documented in this encounter Results [employer]-Ophthalmology Image Exam (01/02/2021 9:40 AM CDT) Specimen (Source) Anatomical Collection Method Collection Time Re ceived Time Location / / Volume Laterality 01/02/2021 9:38 AM CDT Narrative IIMS - 01/02/2021 10:17 AM CDT This order has been created [...]
--- OUTSIDE RECORDS SUMMARY | 2022-03-26 22:25 | XMS_ITS | Encounter Summary ---
:[address] [facility] Address [address] [place] [address] Care Team Providers Name Role Phone Unavailable Primary Care Provider Unavailable Reason for Referral Appointment Request (Routine) - Closed Specialty Diagnoses / Procedures Referred By Contact Refer red To Contact Alba Montana M.D. [address] [place], [place] [phone] Referral ID Status Reason Start Date Expiration Date Visits Requ ested Visits Authorized [id number] Closed 01/22/2021 01/22/2022 1 1 Encounter Details Date Type Department Care Team Description 01/01/2021 Orders Only [facility] Sa carmen Montana M.D. [address] [place] [address] [phone] (Wo rk) Social History Tobacco Use Types [...] get together with friends Three times a bindu molina 12/31/2021 or relatives? How often do you attend tenriism or Patient refused 2021 anglican services? Do you belong to any clubs [...] Name Type Priority Associated Order Schedule Diagnoses Covid immunization Outpatient Referral Routine Ex pected: office visit Booster 021 (Approximate), Expires: 01/01/2022 documented as of this encounter Visit Diagnoses Not on filedocumented in this encounter
--- OUTSIDE RECORDS SUMMARY | 2022-03-26 22:25 | XMS_ITS | Encounter Summary ---
:1935 Author Organization [facility] Address [address] [place] [address] Care Team Providers Name Role Phone Unavailable Primary Care Provider Unavailable Reason for Referral MRI/CAT/PET Scan (Routine) - Closed Specialty Diagnoses / Procedures Referred By Contact Refer red To Contact Radiology Diagnoses Amaurosis Fugax Sirisha López M.D., [facility] Procedures MR Brain Angio WO and Neck Angio WOW IV Contrast MR Brain Angiogram without and with IV Contrast Ph.D. [address] [place] [phone] Referral ID Status Reason Start Date Expiration Date Visits Requ ested Visits Authorized [id number] Closed 01/01/2021 01/01/2022 1 1 MRI/CAT/PET Scan (Routine) - Closed Specialty Diagnoses / Procedures Referred By Contact Refer red To Contact Radiology Diagnoses Amaurosis Fugax iSrisha López M.D., [facility] Procedures MR Brain without and with IV Contrast Ph.D. [address] [place] [phone] Referral ID Status Reason Start Date Expiration Date Visits Requ ested Visits Authorized [id number] Closed 01/01/2021 01/01/2022 1 1 Reason for Visit MRI/CAT/PET Scan (Routine) - Closed Specialty Diagnoses / Procedures Referred By Contact Refer red To Contact Radiology Diagnoses Amaurosis Fugax Sirisha López M.D., [facility] Procedures MR Brain without and with IV Contrast Ph.D. [address] [place] [address] [phone] Referral ID Status Reason Start Date Expiration Date Visits Requ ested Visits Authorized [id number] Closed 01/01/2021 01/01/2022 1 1 Encounter Details Date Type Department Care Team Description 01/02/2021 Hospital Encounter Department of Sirisha López, Am aurosis Fugax Radiology, Moe Perkins, Ph.D. [facility] [place], [facility] [address] [place], [place] 200 [facility] [address] [place], [place] [phone] (Work) [phone] Social History Tobacco Use Types Packs/Day Years [...] you attend jew or Patient refused 2021 anabaptism services? Do you belong to any clubs [...] ascorbic acid, vitamin Take 1 tablet by mouth 0 0 10/01/2011 C, (VITAMIN C) 500 mg daily. tablet atorvastatin (LIPITOR) Take 20 mg by mouth at 0 0 06/08/2020 20 mg tablet bedtime. carvediloL (COREG) 25 Take 25 mg by mouth 2 0 mg tablet (two) times a day with meals. DME CPAP DME Order 0 Eliquis 5 mg tablet 5 mg 2 (two) times a 0 2019 day. omega-3 fatty Take 1 capsule by mouth 0 7 acids/fish oil (OMEGA daily. 3 FISH OIL ORAL) pantoprazole Take 1 tablet (40 mg 90 tablet 3 01/11/2021 (PROTONIX) 40 mg EC total) by mouth every tablet morning before breakfast. silver sulfADIAZINE Apply 1 application 0 019 (SILVADENE, SSD) 1 % topically as needed. cream triamcinolone Apply 1 application 0 09/18/2020 (KENALOG) 0.1 % cream topically as needed. valsartan (DIOVAN) 320 Take 320 mg by mouth 0 10/2019 mg tablet daily. vitamin E 400 unit Take 1 capsule by mouth 0 09/15 capsule daily. clopidogreL (PLAVIX) Take 1 tablet (75 mg 90 tablet 1 01/1107/10/2021 75 mg tablet total) by mouth daily. aspirin, buffered, 325 Take 1 tablet (325 mg 30 tablet 11 01/11/2021 mg tablet total) by mouth daily. atorvastatin (LIPITOR) Take 0.5 tablets by 0 /10/201601/10/2021 40 mg tablet mouth daily. clopidogreL (PLAVIX) Take 4 tablets at 6 pm 5 tablet 0 01/10/2021 75 mg tablet on night before catheterization and 1 tablet at 6am day of procedure. glimepiride (AMARYL) 2 Take 2 mg by mouth 0 11/05/2021 mg tablet daily with breakfast. omeprazole (PriLOSEC) Take 1 capsule by mouth 0 0 2014 01/10/2021 20 mg capsule 2 (two) times a day. salmon oil/omega-3 Take 1 tablet by mouth 0 11/1901/10/2021 fatty acids (SALMON daily. OIL-1000 ORAL) documented as of this encounter Plan of Treatment Not on filedocumented as of this encounter Procedures Procedure Name Priority Date/Time Associated Comments Diagnosis MR BRAIN ANGIO WO RAD - Routine 01/02/2021 3:09 Amaurosis Fugax Res ults for this AND NECK ANGIO (most inpatients PM CDT procedure are in WOW IV CONTRAST and all the results outpatients) section. MR BRAIN WITHOUT RAD - Routine 01/02/2021 3:09 Amaurosis Fugax Resu lts for this AND WITH IV (most inpatients PM CDT procedure a re in CONTRAST and all the results outpatients) section. documented in this encounter Results MR Brain Angio WO and Neck Angio WOW IV Contrast (01/02/2021 3:09 PM CDT) Anatomical Region Laterality Modality Head, Brain, Neuroradiology RST LOS, Neuroradiology ARZ N/A Magnetic Resonance LOS, Neuroradiology FLA LOS Specimen (Source) Anatomical Collection Method [...] formation versus infundibulum. Major components of the [place] are otherwise intact. Posterior communicating arteries are small. Likely mild atherosclerotic disease of the carotid siphons. Procedure Note Ashia Decker M.B., B.Ch. - 021 EXAM: MR BRAIN WITHOUT AND WITH IV CONTR AST, MR BRAIN ANGIO WO AND NECK ANGIO WOW IV CONTRAST COMPARISON: None relevant. 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 Major components of the [place] are otherwise intact. Posterior communicating [...] Modality Head, Brain, Neuroradiology RST LOS, Neuroradiology ARZ N/A Magnetic Resonance LOS, Neuroradiology FLA LOS Specimen (Source) Anatomical Collection Method [...] lymphocytic leukemia with amaurosis fugax ophthalmology exam tati wilsoncurry history of right vitreous hemorrhage and neovascularization [...] formation versus infundibulum. Major components of the [place] are otherwise intact. Posterior communicating [...] formation versus infundibulum. Major components of the [place] are otherwise intact. Posterior communicating [...] arteries versus infundibulum. Likely inc idental. Sirisha O Setter M.D., Ph.D. IMG MRI PROCEDURES documented in this encounter Visit Diagnoses Diagnosis Amaurosis Fugax documented in this encounter Administered Medications Inactive Administered Medications - up to 3 most recent administrations Medication Order MAR Action Action Date Dose Rate Site gadobutrol injection 0.01-30 mL Given 01/02/2021 3:09 PM CDT 11 mL (GADAVIST) 0.01-30 mL, intravenous, Once in imaging, contrast, Starting on Thu01/02/21 at 1345, For 1 dose, Imaging Protocol Orders, Dose per Radiant Medication Guidelines Intrathecal doses greater than 0.25 mL not recommended. documented in this encounter
--- OUTSIDE RECORDS SUMMARY | 2022-03-26 22:25 | XMS_ITS | Encounter Summary ---
:1935 Author Organization [facility] Address [address] [place] [address] Care Team Providers Name Role Phone Unavailable Primary Care Provider Unavailable Encounter Details Date Type Department Care Team Description 01/02/2021 Ancillary Department of Jose Herman Procedure Ophthalmology mayda High M.D. Type 2 With [place], [place] [address] Proliferative [address] [place], [place] [address] Without Macular Edema [id number] Bilateral (HCC) (Primary Dx) Social History Tobacco Use [...] or relatives? How often do you attend judaism or Patient refused 2021 anabaptist services? Do you belong to any clubs or No 12/31/2021 organizations such as judaism groups, unions, fraternal or athletic groups, or [...] Without Macular Edema sectio n. 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 Bilateral (HCC) documented in this encounter Results Fundus Photos - OU - Both Eyes (01/02/2021 9:48 AM CDT) Specimen (Source) Anatomical Location Collection Method / Collectio n Time Received Time / Laterality Volume Narrative OPHTHALMOLOGY IMAGING EXAM - 01/03/20 21 10:58 AM CDT Right Eye Field of [...] Mcmahon M.D. OPHTH PHOTOGRAPHY Performing Organization Address City/[facility]/ZIP Code Phon e Number OPHTHALMOLOGY IMAGING EXAM [...] Eye Reliability was good. OCT device used [employer] Spectralis . Central macular thickness 256 um. [...]
--- OUTSIDE RECORDS SUMMARY | 2022-03-26 22:26 | XMS_ITS | Encounter Summary ---
:1935 Author Organization [facility] Address [address] [place] [address] Care Team Providers Name Role Phone Unavailable Primary Care Provider Unavailable Encounter Details Date Type Department Care Team Description 06/12/2020 Hospital Encounter Department of Akua Esposito Laboratory Medicine A, PLATE SHEAR OPERATOR, C.N.P., Sound Technician josiah Not Having and Pathology, M.S.N. Achieved [place], in ([facility]) [place], [place] [address] [place] [address] Social History Tobacco Use Types Packs/Day Years [...] you attend congregation or Patient refused 2021 shinto services? Do [...] Start Date End Date ascorbic acid, vitamin C, Take 1 tablet by 0 09/15 (VITAMIN C) 500 mg tablet mouth daily. atorvastatin (LIPITOR) 20 Take 20 mg by 0 06/08/ 021 mg tablet mouth at bedtime. carvediloL (COREG) 25 mg Take 25 mg by 0 03/06/20 20 tablet mouth 2 (two) times a day with meals. Eliquis 5 mg tablet 5 mg 2 (two) times 0 04/19/20 20 a day. omega-3 fatty acids/fish Take 1 capsule by 0 07/0 10/2016 oil (OMEGA 3 FISH OIL ORAL) mouth daily. silver sulfADIAZINE Apply 1 0 04/15/2019 (SILVADENE, SSD) 1 % cream application topically as needed. valsartan (DIOVAN) 320 mg Take 320 mg by 0 2019 tablet mouth daily. vitamin E 400 unit capsule Take 1 capsule by 0 mouth daily. aspirin (ADULT LOW DOSE Take 1 tablet by 0 200810/10/2020 ASPIRIN) [address] tablet mouth daily. atenolol (TENORMIN) 25 mg Take 1 tablet by 0 07/0 10/201610/10/2020 tablet mouth 2 (two) times a day. atorvastatin (LIPITOR) 40 Take 0.5 tablets 0 07/0 10/201601/10/2021 mg tablet by mouth daily. glimepiride (AMARYL) 2 mg Take 2 mg by mouth 0 11/05/2021 tablet daily with breakfast. hydroCHLOROthiazide Take 1 tablet by 0 11/20/2016 10/10/2020 (HYDRODIURIL) 25 mg tablet mouth daily. nitroglycerin (NITROSTAT) Place 1 tablet 0 201410/10/2020 0.4 mg SL tablet under the tongue as needed. Place 1 tab under the tongue at first sign of chest pain. If no relief in 5 min, call 911. Repeat dose every 5 min up to 2 additional doses if chest pain continues. omeprazole (PriLOSEC) 20 mg Take 1 capsule by 0 0 2014 01/10/2021 capsule mouth 2 (two) times a day. salmon oil/omega-3 fatty Take 1 tablet by 0 11/1901/10/2021 acids (SALMON OIL-1000 mouth daily. ORAL) spironolactone (ALDACTONE) Take 50 mg by 0 201912/31/2020 50 mg tablet mouth once. documented as of this encounter Plan of Treatment Not on filedocumented as of this encounter Procedures Procedure Name Priority Date/Time Associated Comments Diagnosis OR ORGANIC ACID 1 QUANT Routine 06/12/2020 10:58 Results for this 2 AM DIRECTOR OF FINANCE procedure are i n the results section. PERNICIOUS ANEMIA Routine 06/12/2020 10:58 Leukemia Result s for this CASCADE, S AM DIRECTOR OF FINANCE Lymphocytic Chronic procedur e are in Not Having Achieved the resu lts Remission (HCC) section. IRON AND TOT Routine 06/12/2020 10:58 Leukemia Results for this IRON-BINDING CAPACITY, AM DIRECTOR OF FINANCE Lymphocytic Chroni c procedure are in S/P Not Having Achieved the resu lts Remission (HCC) section. RETICULOCYTES, B Routine 06/12/2020 10:58 Leukemia Results for this AM DIRECTOR OF FINANCE Lymphocytic Chronic procedur e are in Not Having Achieved the resu lts Remission (HCC) section. CBC WITH DIFFERENTIAL, B Routine 06/12/2020 10:58 Leukemia Results for this AM DIRECTOR OF FINANCE Lymphocytic Chronic procedur e are in Not Having Achieved the resu lts Remission (HCC) section. ASPARTATE Routine 06/12/2020 10:58 Leukemia Results for this AMINOTRANSFERASE (AST), AM DIRECTOR OF FINANCE Lymphocytic Chron ic procedure are in S/P Not Having Achieved the resu lts Remission (HCC) section. ALKALINE PHOSPHATASE, Routine 06/12/2020 10:58 Leukemia Re sults for this S/P AM DIRECTOR OF FINANCE Lymphocytic Chronic procedur e are in Not Having Achieved the resu lts Remission (HCC) section. LACTATE DEHYDROGENASE Routine 06/12/2020 10:58 Leukemia Re sults for this (LD), S AM DIRECTOR OF FINANCE Lymphocytic Chronic procedur e are in Not Having Achieved the resu lts Remission (HCC) section. HAPTOGLOBIN, S Routine 06/12/2020 10:58 Leukemia Results f or this AM DIRECTOR OF FINANCE Lymphocytic Chronic procedur e are in Not Having Achieved the resu lts Remission (HCC) section. FOLATE, S Routine 06/12/2020 10:58 Leukemia Results for this AM DIRECTOR OF FINANCE Lymphocytic Chronic procedur e are in Not Having Achieved the resu lts Remission (HCC) section. FERRITIN, S Routine 06/12/2020 10:58 Leukemia Results for this AM DIRECTOR OF FINANCE Lymphocytic Chronic procedur e are in Not Having Achieved the resu lts Remission (HCC) section. CREATININE WITH EGFR, Routine 06/12/2020 10:58 Leukemia Re sults for this S/P AM DIRECTOR OF FINANCE Lymphocytic Chronic procedur e are in Not Having Achieved the resu lts Remission (HCC) section. BILIRUBIN, TOT, S/P Routine 06/12/2020 10:58 Leukemia Resu lts for this AM DIRECTOR OF FINANCE Lymphocytic Chronic procedur e are in Not Having Achieved the resu lts Remission (HCC) section. documented in this encounter Results Methylmalonic Acid (MMA), Quantitative, Serum (06/12/2020 10:58 AM DIRECTOR OF FINANCE) Analysis Performed At Patho logist Time Signature Methylmalonic 0.19 <=0.40 06/14/2020 DTL Acid, QN, S nmol/mL 11:03 AM DIRECTOR OF FINANCE Comment: No cellular B-12 deficiency. ----ADDITIONAL INFORMATION---- This test was developed and its performa nce characteristics determined by [facility] in a manner consistent with CLIA requirements. This test has not been cleared or approved by the [place] Is[place] d and Drug Administration. Specimen Anatomical Collection Method Collection Time Receive d Time (Source) Location / / Volume Laterality Blood 06/12/2020 10:58 06/12/2020 5:47 AM DIRECTOR OF FINANCE PM DIRECTOR OF FINANCE Aleksandr Eldridge APRN.N.P., M.S.N. LAB BLOOD NON ADD -ON Performing Organization Address City/State/ZIP Code Phon e Number [facility] - [address] [place], [place] [address] [facility] [place] [address] [facility] [address] (ABNORMAL) Haptoglobin (06/12/2020 10:58 AM DIRECTOR OF FINANCE) P athologist Signature Haptoglobin, S 230 (H) 30 - 200 06/12/2020 [facility] mg/dL 9:45 PM DIRECTOR OF FINANCE Specimen Anatomical Collection Method Collection Time Receive d Time (Source) Location / / Volume Laterality Blood (Blood, 06/12/2020 10:58 06/12/2020 4:12 Venous) AM DIRECTOR OF FINANCE PM DIRECTOR OF FINANCE Aleksandr Eldridge APRN.N.P., M.S.N. LAB BLOOD ADD-ON Performing Organization Address City/State/ZIP Code Phon e Number [facility] [address] [place] [address] [facility] [place] [address] Laboratory Medicine and Pathology [address] [place] Folate (06/12/2020 10:58 AM DIRECTOR OF FINANCE) athologist Signature Folate, S 9.1 >=4.0 mcg/L 06/12/2020 DTL 12:20 PM DIRECTOR OF FINANCE Specimen Anatomical Collection Method Collection Time Receive d Time (Source) Location / / Volume Laterality Blood (Blood, 06/12/2020 10:58 06/12/2020 Venous) AM DIRECTOR OF FINANCE 11:20 AM DIRECTOR OF FINANCE Akua Esposito APRN, C.N.P., M.S.N. LAB BLOOD ADD-ON Performing Organization Address City/[facility]/ZIP Code Phon e Number [facility] - [address] [place], [place] [address] [place] [address] Laboratories-[address] Pernicious Anemia [place] (06/12/2020 10:58 AM DIRECTOR OF FINANCE) athologist Signature Vitamin B12 295 180 - 914 06/12/2020 [facility] Assay, S ng/L 5:47 PM DIRECTOR OF FINANCE Comment: B-12 <400; MMA test was perform ed. Specimen Anatomical Collection Method Collection Time Receive d Time (Source) Location / / Volume Laterality Blood (Blood, 06/12/2020 10:58 06/12/2020 4:50 Venous) AM DIRECTOR OF FINANCE PM DIRECTOR OF FINANCE Aleksandr Eldridge APRN.N.Jake., M.S.N. LAB BLOOD NON ADD -ON Performing Organization Address City/State/ZIP Code Phon e Number [facility] [address] [place] [address] [facility] [place] [address] Laboratory Medicine and Pathology [address] [place] Ferritin (06/12/2020 10:58 AM DIRECTOR OF FINANCE) athologist Signature Ferritin, S 157 24 - 336 06/12/2020 DTL mcg/L 12:15 PM DIRECTOR OF FINANCE Specimen Anatomical Collection Method Collection Time Receive d Time (Source) Location / / Volume Laterality Blood (Blood, 06/12/2020 10:58 06/12/2020 Venous) AM DIRECTOR OF FINANCE 11:20 AM DIRECTOR OF FINANCE Akua Esposito APRN, C.N.P., M.S.N. LAB BLOOD ADD-ON Performing Organization Address City/[facility]/ZIP Code Phon e Number [facility] - [address] [place], [place] [address] [facility] [place] [address] Laboratories-[address] Iron and Total Iron-Binding Capacity (06/12/2020 10:58 AM DIRECTOR OF FINANCE) P athologist Signature Iron 61 50 - 150 06/12/2020 DTL mcg/dL 11:56 AM DIRECTOR OF FINANCE Total Iron 268 250 - 400 06/12/2020 DTL Binding Capacity mcg/dL 11:56 AM DIRECTOR OF FINANCE Percent 23 14 - 50 % 06/12/2020 DTL Saturation 11:56 AM DIRECTOR OF FINANCE Specimen Anatomical Collection Method Collection Time Receive d Time (Source) Location / / Volume Laterality Blood (Blood, 06/12/2020 10:58 06/12/2020 Venous) AM DIRECTOR OF FINANCE 11:20 AM DIRECTOR OF FINANCE Akua Esposito APRN, C.N.P., M.S.N. LAB BLOOD ADD-ON Performing Organization Address City/[facility]/ZIP Code Phon e Number [facility] - [address] [place], [place] [address] [facility] [place], [place] [id number] [place] [address] Reticulocytes (06/12/2020 10:58 AM DIRECTOR OF FINANCE) athologist Signature Reticulocytes, B 1.52 0.60 - 06/12/2020 DTL 2.71 % 11:32 AM DIRECTOR OF FINANCE Absolute 59.6 30.4 - 06/12/2020 DTL Reticulocyte 110.9 11:32 AM DIRECTOR OF FINANCE x10(9)/L Specimen Anatomical Collection Method Collection Time Receive d Time (Source) Location / / Volume Laterality Blood (Blood, 06/12/2020 10:58 06/12/2020 Venous) AM DIRECTOR OF FINANCE 11:23 AM DIRECTOR OF FINANCE Akua Esposito APRN, C.N.P., M.S.N. LAB BLOOD ADD-ON Performing Organization Address City/State/ZIP Code Phon e Number [facility] - [address] [address] [facility]-[address] LD (Lactate Dehydrogenase) (06/12/2020 10:58 AM DIRECTOR OF FINANCE) Analysis Performed At Patho logist Time Signature Lactate 168 122 - 222 06/12/2020 DTL Dehydrogenase U/L 11:56 AM DIRECTOR OF FINANCE (LD), S Specimen Anatomical Collection Method Collection Time Receive d Time (Source) Location / / Volume Laterality Blood (Blood, 06/12/2020 10:58 06/12/2020 Venous) AM DIRECTOR OF FINANCE 11:20 AM DIRECTOR OF FINANCE Ifeoma Eldridge APRNNCarlyn., M.S.N. LAB BLOOD NON ADD -ON Performing Organization Address City/State/ZIP Code Phon e Number [address] (ABNORMAL) Creatinine with Estimated GFR (06/12/2020 10:58 AM DIRECTOR OF FINANCE) P athologist Signature Creatinine 1.18 0.74 - 06/12/2020 DTL 1.35 mg/dL 11:56 AM DIRECTOR OF FINANCE eGFR-Non 56 (L) >=60 06/12/2020 DTL Black/ mL/min/BSA 11:56 AM DIRECTOR OF FINANCE [place] Comment: ----ADDITIONAL INFORMATION---- Estimated GFR calculated using the 2009 CKD_EPI creatinine equation. eGFR-Black/ 65 >=60 mL/min/BSA 2020 11:56 AM DIRECTOR OF FINANCE DTL Comment: ----ADDITIONAL INFORMATION---- Estimated GFR calculated using the 2009 CKD_EPI creatinine equation. Specimen Anatomical Collection Method Collection Time Receive d Time (Source) Location / / Volume Laterality Blood (Blood, 06/12/2020 10:58 06/12/2020 Venous) AM DIRECTOR OF FINANCE 11:20 AM DIRECTOR OF FINANCE Aleksandr Eldridge APRN.N.P., M.S.N. LAB BLOOD ADD-ON Performing Organization Address City/State/ZIP [facility] Phon e Number [place] [phone] [facility] [address] (ABNORMAL) CBC with Differential, Blood (06/12/2020 10:58 AM DIRECTOR OF FINANCE) [facility] gist Method Time Signature Hemoglobin 11.5 (L) 13.2 - 06/12/2020 DTL 16.6 g/dL 11:32 AM DIRECTOR OF FINANCE Hematocrit 36.7 (L) 38.3 - 06/12/2020 DTL 48.6 % 11:32 AM DIRECTOR OF FINANCE Erythrocytes 3.92 (L) 4.35 - 06/12/2020 DTL 5.65 11:32 AM DIRECTOR OF FINANCE x10(12)/L MCV 93.6 78.2 - 06/12/2020 DTL 97.9 fL 11:32 AM DIRECTOR OF FINANCE RBC Distrib Width 14.6 (H) 11.8 - 06/12/2020 DTL 14.5 % 11:32 AM DIRECTOR OF FINANCE Platelet Count 186 135 - 317 06/12/2020 DTL x10(9)/L 11:32 AM DIRECTOR OF FINANCE Leukocytes 50.8 (H) 3.4 - 9.6 06/12/2020 DTL x10(9)/L 12:19 PM DIRECTOR OF FINANCE Comment: Results confirmed by smear. Neutrophils 8.54 (H) 1.56 - 6.45 x10(9)/L 06/12/2020 12:19 PM DIRECTOR OF FINANCE DTL Comment: Rechecked Lymphocytes 40.80 (H) 0.95 - 3.07 x10(9)/L 06/12/2020 12:19 PM DIRECTOR OF FINANCE DTL Monocytes 1.20 (H) 0.26 - 0.81 x10(9)/L 06/12/2020 12:19 PM DIRECTOR OF FINANCE DTL Eosinophils 0.19 0.03 - 0.48 x10(9)/L 06/12/2020 12:19 PM DIRECTOR OF FINANCE DTL Basophils 0.04 0.01 - 0.08 x10(9)/L 06/12/2020 12:19 PM DIRECTOR OF FINANCE DTL Specimen Anatomical Collection Method Collection Time Receive d Time (Source) Location / / Volume Laterality Blood (Blood, 06/12/2020 10:58 06/12/2020 Venous) AM DIRECTOR OF FINANCE 11:23 AM DIRECTOR OF FINANCE Akua Esposito APRN, C.N.P., M.S.N. LAB BLOOD ADD-ON Performing Organization Address City/[facility] Phon e Number [facility] - [address] [place], [place] [address] [place] [address] Bilirubin, Total (06/12/2020 10:58 AM DIRECTOR OF FINANCE) athologist Signature Bilirubin, 0.5 <=1.2 mg/dL 06/12/2020 DTL Total, S 11:56 AM DIRECTOR OF FINANCE Specimen Anatomical Collection Method Collection Time Receive d Time (Source) Location / / Volume Laterality Blood (Blood, 06/12/2020 10:58 06/12/2020 Venous) AM DIRECTOR OF FINANCE 11:20 AM DIRECTOR OF FINANCE Akua Esposito APRN, C.N.P., M.S.N. LAB BLOOD ADD-ON Performing Organization Address City/[facility] Phon e Number [facility] - [address] AST (Aspartate Aminotransferase) (06/12/2020 10:58 AM DIRECTOR OF FINANCE) [facility] gist Method Time Signature Aspartate 19 8 - 48 06/12/2020 DTL Aminotransferase U/L 11:56 AM DIRECTOR OF FINANCE (AST), S Specimen Anatomical Collection Method Collection Time Receive d Time (Source) Location / / Volume Laterality Blood (Blood, 06/12/2020 10:58 06/12/2020 Venous) AM DIRECTOR OF FINANCE 11:20 AM DIRECTOR OF FINANCE Aleksandr Eldridge APRN.NCarlyn., M.S.N. LAB BLOOD ADD-ON Performing Organization Address City/State/[facility] Phon e Number [facility] - [address] [place], [place] [address] [place], [place] [phone] [place] [address] Alkaline Phosphatase (06/12/2020 10:58 AM DIRECTOR OF FINANCE) athologist Signature Alkaline 114 40 - 129 06/12/2020 DTL Phosphatase, S U/L 11:56 AM DIRECTOR OF FINANCE Specimen Anatomical Collection Method Collection Time Receive d Time (Source) Location / / Volume Laterality Blood (Blood, 06/12/2020 10:58 06/12/2020 Venous) AM DIRECTOR OF FINANCE 11:20 AM DIRECTOR OF FINANCE Akua Esposito APRN, C.N.P., M.S.N. 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
--- OUTSIDE RECORDS SUMMARY | 2022-03-26 22:26 | XMS_ITS | Encounter Summary ---
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 [address] [place] [address] Referral ID Status Reason Start Date Expiration Date Visits Requ ested Visits Authorized [id number] Closed 12/14/2019 12/13/2020 1 1 Encounter Details Date Type Department Care Team Description 06/12/2020 Comprehensive Visit Department of Poonam Ozuna Skin Cancer (Primary Dx); Dermatology in [place] M.D. 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 How often do you attend uatsdin or Patient refused 2021 yarsani services? Do you belong to any clubs or No 12/31/2021 organizations such as uatsdin groups, unions, fraternal or athletic groups, or [...] documented as of this encounter Progress Notes [place] Ozuna M.D. - 06/12/2020 1:40 PM CST Correspondence To: Dr. Ozuna Patient discussed with supervising clinical education consultant, Dr. Davis, who concurs with the assessment and plan. REFERRAL Akua Esposito APRN, C.N.P., M.S.N. SUBJECTIVE CHIEF COMPLAINT / REASON FOR VISIT Skin cancer screening, history of CLL HISTORY OF PRESENT ILLNESS Mr. Kristofer Garcia is a very pleasant 84 y.o. male who presents today for a skin cancer screening examination. He has history chronic lymphocytic leukemia, currently under observation. Mr. Kristofer Garcia has no previous history of skin cancer or atypical nevi. Was last seen in the [facility] in November 2017, at which time he had no findings concerning for skin cancer. The patient reports no new or changing skin lesions. He has a lesion in his left axilla which he would like to have examined today. Mr. Kristofer Garcia tries to be diligent with photoprotectivemeasures. 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 Denies any weight loss, fevers or recent changes in his state of health. PAST MEDICAL HISTORY No history of skin cancer FAMILY HISTORY No history of melanoma PHYSICAL EXAM Constitutional: Normal body habitus, no deformities Neuro/Psych: Normal orientation, normal affect Eyes: Normal conjunctivae and lids ENT: Normal lips Neck: No neck mass, normal range of motion CV: Bilateral 2+ pitting edema up to mid shins. MSK: Normal digits and nails Skin: A skin examination including the scalp, hair, face, ears, neck, chest, back, abdomen, bilateral upper extremities, and bilateral lower extremities was performed. Sim type 2, mild dermatoheliosis the face and upper extremities. Lesion of concern involving his left axilla is a brown papulewith waxy stuck on appearance, consistent with seborrheic keratosis. Additional seborrheic keratosesare scattered on his trunk. Scattered on his trunk are several bright red, dome-shaped papules, consistent with nelson angiomas.Scattered on the trunk and extremities are several brown to dark brown pigmented macules and skin colored papules of varying size, uniform color and pigmentation. Several of these were examined under the dermoscopy revealing benign morphology. ASSESSMENT / PLAN #1 Skin cancer screening examination #2 Dermatoheliosis #3 History of chronic lymphocytic leukemia No worrisome findings for skin cancer today. Sun protection and sun avoidance were reviewed with thepatient. Educational materials were provided regarding skin self-examination, the warning signs and symptoms of skin cancer, and the proper use of sunscreens. I would recommend a full skin cancer screening examination with an appropriately trained clinician every year. #4 Banal-appearing nevi The ABCDE criteria for melanoma was reviewed with the patient. None of the patient's nevi reach the clinical threshold for biopsy. I recommend continued sun protection, self-skin examinations, and observation. Should any of the patient's nevi change in size, color, texture, or shape or develop symptoms such as itching or bleeding, I recommend an immediate return visit for reassessment. #5 Seborrheic keratoses #6 Nelson angiomas The benign nature of the skin lesion(s) was discussed with the patient. No treatment is required. I recommend continued observation. Should symptoms or changes develop related to this condition, I would recommend a return visit for reassessment. All questions answered. INFORMED CONSENT Discussed the risks, benefits, alternatives, and the necessity of other members of the healthcare team participating in the procedure. All questions answered and consent given. PATIENT EDUCATION Ready to learn. No apparent learning barriers were identified. Learning preferences include listening. Explained diagnosis and treatment plan; patient/guardian of patient expressed understanding of thecontent. E MACHINE OPERATOR Associated attestation - Nesha Davis M.D. - 06/22/2020 10:04 AM GLOVE MACHINE OPERATOR I saw and evaluated the patient, participating in the bruno portions of the service. I reviewed the resident/fellow???s note. I agree with the resident/fellow???s findings and plan. 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
--- OUTSIDE RECORDS SUMMARY | 2022-03-26 22:26 | XMS_ITS | Encounter Summary ---
:1935 Author Organization [facility] Address [address] [place] [address] Care Team Providers Name Role Phone Unavailable Primary Care Provider Unavailable Reason for Visit Reason Comments Immunizations Encounter Details Date Type Department Care Team Description 10/10/2020 Nurse Only Section of Preventive, Akua Esposito, Immunizations Transportation and WANDA C.N.Betty, M.S.N. Occupational Medicine in [place], [place] [address] [place] [phone] Social History Tobacco Use Types Packs/Day [...] or relatives? How often do you attend confucianist or Patient refused 2021 holiness services? Do you belong to any clubs or No 12/31/2021 organizations such as confucianist groups, unions, fraternal or athletic groups, or [...]
--- OUTSIDE RECORDS SUMMARY | 2022-03-26 22:26 | XMS_ITS | Encounter Summary ---
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 Do [...] Date/Time Associated Comments Diagnosis RETICULOCYTES, B Routine 10/10/2020 10:55 Leukemia Results for this AM CDT Lymphocytic Chronic procedur e are in Not Having Achieved the resu lts Remission (HCC) section. Anemia CBC WITH DIFFERENTIAL, Routine 10/10/2020 10:55 Leukemia R esults for this B AM CDT Lymphocytic Chronic procedur e are in Not Having Achieved the resu lts Remission (HCC) section. Anemia DIRECT ANTIGLOBULIN Routine 10/10/2020 10:55 Leukemia Resu lts for this TEST (POLYSPECIFIC) AM CDT Lymphocytic Chronic p rocedure are in Not Having Achieved the resu lts Remission (HCC) section. Anemia URIC ACID, S/P Routine 10/10/2020 10:55 Leukemia Results f or this AM CDT Lymphocytic Chronic procedur e are in Not Having Achieved the resu lts Remission (HCC) section. Anemia LACTATE DEHYDROGENASE Routine 10/10/2020 10:55 Leukemia Re sults for this (LD), S AM CDT Lymphocytic Chronic procedur e are in Not Having Achieved the resu lts Remission (HCC) section. Anemia BILIRUBIN DIRECT, S/P Routine 10/10/2020 10:55 Leukemia Re sults for this AM CDT Lymphocytic Chronic procedur e are in Not Having Achieved the resu lts Remission (HCC) section. Anemia COMPREHENSIVE Routine 10/10/2020 10:55 Leukemia Results fo r this METABOLIC PANEL, S/P AM CDT Lymphocytic Chronic procedure are in Not Having Achieved the resu lts Remission (HCC) section. Anemia documented in this encounter Results Direct Antiglobulin Test (Poly) (10/10/2020 10:55 AM CDT) Patholo gist Method Time Signature Direct Negative Negative 10/10/2020 ETRM Antiglobulin 11:54 AM CDT Test, Polyspecific Specimen Anatomical Collection Method Collection Time Receive d Time (Source) Location / / Volume Laterality Blood (Blood, 10/10/2020 10:55 10/10/2020 Venous) AM CDT 11:18 AM CDT Meliton Gordon M.D. LAB BLOOD BANK TEST ORDERABL ES Performing Organization Address City/State/ZIP Code Phon e Number [facility] - [address] [place], [place] [address] [facility] [place] [address] Laboratories-[facility] [address] Uric Acid (10/10/2020 10:55 AM CDT) P athologist Signature Uric Acid, S 5.9 3.7 - 8.0 10/10/2020 DTL mg/dL 11:57 AM CDT Specimen Anatomical Collection Method Collection Time Receive d Time (Source) Location / / Volume Laterality Blood (Blood, 10/10/2020 10:55 10/10/2020 Venous) AM CDT 11:15 AM CDT Meliton Gordon M.D. LAB BLOOD ADD-ON Performing Organization Address City/State/ZIP Code Phon e Number [facility] - [address] [place], [place] [address] [facility] [place] [address] [facility] [address] [facility] (ABNORMAL) Comprehensive Metabolic Panel (10/10/2020 10:55 AM CDT) P athologist Signature Potassium, S 4.6 3.6 - 5.2 10/10/2020 DTL mmol/L 11:48 AM CDT Sodium, S 143 135 - 145 10/10/2020 DTL mmol/L 11:48 AM CDT Chloride, S 109 (H) 98 - 107 10/10/2020 DTL mmol/L 11:48 AM CDT Bicarbonate, S 25 22 - 29 10/10/2020 DTL mmol/L 11:48 AM CDT Anion Gap 9 7 - 15 10/10/2020 DTL 11:48 AM CDT BUN (Blood Urea 26 (H) 8 - 24 10/10/2020 DTL Nitrogen), S mg/dL 11:48 AM CDT Creatinine 1.23 0.74 - 10/10/2020 DTL 1.35 mg/dL 11:48 AM CDT eGFR-Non 54 (L) >=60 10/10/2020 DTL Black/ mL/min/BSA 11:48 AM CDT Jamaican Comment: ----ADDITIONAL INFORMATION---- Estimated GFR calculated using the 2009 CKD_EPI creatinine equation. eGFR-Black/ 62 >=60 mL/min/BSA 2020 11:48 AM CDT DTL Comment: ----ADDITIONAL INFORMATION---- Estimated GFR calculated using the 2009 CKD_EPI creatinine equation. Calcium, Total, S 9.4 8.8 - 10.2 mg/dL 10/10/2020 11:4 8 AM CDT DTL Glucose, S 128 70 - 140 mg/dL 10/10/2020 11:48 AM CDT DTL Protein, Total, S 5.7 (L) 6.3 - 7.9 g/dL 10/10/2020 11:48 AM CDT DTL Albumin, S 4.1 3.5 - 5.0 g/dL 10/10/2020 11:48 AM CDT DTL Aspartate Aminotransferase 19 8 - 48 U/L 10/10/2020 1 1:48 AM CDT DTL (AST), S Alkaline Phosphatase, S 100 40 - 129 U/L 10/10/2020 11 :48 AM CDT DTL Alanine Aminotransferase 19 7 - 55 U/L 10/10/2020 11: 48 AM CDT DTL (ALT), S Bilirubin, Total, S 0.3 <=1.2 mg/dL 10/10/2020 11:48 A M CDT DTL Specimen Anatomical Collection Method Collection Time Receive d Time (Source) Location / / Volume Laterality Blood (Blood, 10/10/2020 10:55 10/10/2020 Venous) AM CDT 11:15 AM CDT Meliton Gordon M.D. LAB BLOOD ADD-ON Performing Organization Address City/[facility] Phon e Number [facility] [address] Bilirubin, Direct (10/10/2020 10:55 AM CDT) P athologist Signature Bilirubin, <0.2 0.0 - 0.3 10/10/2020 DTL Direct, S mg/dL 11:57 AM CDT Specimen Anatomical Collection Method Collection Time Receive d Time (Source) Location / / Volume Laterality Blood (Blood, 10/10/2020 10:55 10/10/2020 Venous) AM CDT 11:15 AM CDT Meliton Gordon M.D. LAB BLOOD ADD-ON Performing Organization Address City/[facility] Phon e Number [facility] - [address] [place], [place] [address] Reticulocytes (10/10/2020 10:55 AM CDT) P athologist Signature Reticulocytes, B 1.19 0.60 - 10/10/2020 DTL 2.71 % 11:27 AM CDT Absolute 47.7 30.4 - 10/10/2020 DTL Reticulocyte 110.9 11:27 AM CDT x10(9)/L Specimen Anatomical Collection Method Collection Time Receive d Time (Source) Location / / Volume Laterality Blood (Blood, 10/10/2020 10:55 10/10/2020 Venous) AM CDT 11:17 AM CDT Meliton oGrdon M.D. LAB BLOOD ADD-ON Performing Organization Address [facility] Phon e Number [facility] - [address] [place], [place] [address] [facility] [place] [address] LD (Lactate Dehydrogenase) (10/10/2020 10:55 AM CDT) Analysis Performed At Patho logist Time Signature Lactate 177 122 - 222 10/10/2020 DTL Dehydrogenase U/L 11:48 AM CDT (LD), S Specimen Anatomical Collection Method Collection Time Receive d Time (Source) Location / / Volume Laterality Blood (Blood, 10/10/2020 10:55 10/10/2020 Venous) AM CDT 11:15 AM CDT Meliton Gordon M.D. LAB BLOOD NON ADD-ON Performing Organization Address [facility] Phon e Number [facility] - [address] [place], [place] [address] [place] [address] [place] [address] [place] [address] (ABNORMAL) CBC with Differential, Blood (10/10/2020 10:55 AM CDT) Patholo gist Method Time Signature Hemoglobin 12.0 (L) 13.2 - 10/10/2020 DTL 16.6 g/dL 11:27 AM CDT Hematocrit 36.9 (L) 38.3 - 10/10/2020 DTL 48.6 % 11:27 AM CDT Erythrocytes 4.01 (L) 4.35 - 10/10/2020 DTL 5.65 11:27 AM CDT x10(12)/L MCV 92.0 78.2 - 10/10/2020 DTL 97.9 fL 11:27 AM CDT RBC Distrib Width 15.3 (H) 11.8 - 10/10/2020 DTL 14.5 % 11:27 AM CDT Platelet Count 176 135 - 317 10/10/2020 DTL x10(9)/L 11:27 AM CDT Leukocytes 45.0 (H) 3.4 - 9.6 10/10/2020 DTL x10(9)/L 12:08 PM CDT Comment: Results confirmed by smear. Neutrophils 7.73 (H) 1.56 - 6.45 x10(9)/L 10/10/2020 12:08 PM CDT DTL Comment: Rechecked Lymphocytes 34.80 (H) 0.95 - 3.07 x10(9)/L 10/10/2020 12:08 PM CDT DTL Monocytes 2.25 (H) 0.26 - 0.81 x10(9)/L 10/10/2020 12:08 PM CDT DTL Eosinophils 0.17 0.03 - 0.48 x10(9)/L 10/10/2020 12:08 PM CDT DTL Basophils 0.05 0.01 - 0.08 x10(9)/L 10/10/2020 12:08 PM CDT DTL Specimen Anatomical Collection Method Collection Time Receive d Time (Source) Location / / Volume Laterality Blood (Blood, 10/10/2020 10:55 10/10/2020 Venous) AM CDT 11:17 AM CDT Meliton Gordon M.D. 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
--- OUTSIDE RECORDS SUMMARY | 2022-03-26 22:26 | XMS_ITS | Encounter Summary ---
:1935 Author Organization [facility] Address [address] [place] [address] Care Team Providers Name Role Phone Unavailable Primary Care Provider Unavailable Reason for Referral Outpatient (Routine) - Closed Specialty Diagnoses / Procedures Referred By Contact Refer red To Contact Hematology Oncology Akua Esposito [facility] Yasmin MUÑOZ, M.S.N. 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 [address] [phone] Referral ID Status Reason Start Date Expiration Date Visits Requ ested Visits Authorized [id number] Closed 11/10/2019 11/09/2020 1 1 Encounter Details Date Type Department Care Team Description 12/14/2019 Office Visit Division of Akua Esposito, Anemia (Pr imary Dx); Hematology in [employer], C.N.P., Leukemia Lymp hocytic Chronic Not Having Achieved Remission (HCC) [place], [place] M.S.N. [address] [place] [address] Social History Tobacco Use Types Packs/Day Years [...] you attend episcopalian or Patient refused 2021 episcopalian services? Do you belong to any clubs [...] Pressure - - Pulse - - Temperature 36.3 ??C (97.3 ??F) 12/14/2019 10:53 AM CDT Respiratory Rate - - Oxygen Saturation - - Inhaled Oxygen Concentration - - Weight - - Height - - Body Mass Index - - documented in this encounter Progress Notes Akua Esposito APRN, C.N.P., M.S.N. - 12/14/2019 11:00 AM CDT STAFF M[facility] Dr. Gordon CHIEF COMPLAINT/PURPOSE OF VISIT: CLL annual follow-up. The following portions of the patient's history were reviewed and updated as appropriate: allergies,current medications, family history, medical history, social history, surgical history and problem list. HISTORY OF PRESENT ILLNESS: Mr. Garcia is a 84 y.o. 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 Garcia returns today for follow-up. He reports feeling well today. He reports that over thelast year he has not noticed any infections, night sweats, fevers, or weight loss and he has not noticed any lymphadenopathy. He does report an increase in migraines over the last few months. He has a history of migraines. No abdominal pain, chest pain. He has no other acute concerns. ROS: Reviewed and negative unless otherwise noted in HPI. VITAL SIGNS: Temp 36.3 ??C (Tympanic) PHYSICAL EXAM: General: Alert and oriented, in no acute distress. Skin: Warm, dry, intact throughout. Scattered ecchymosis present ENT: Mask intact d/t COVID Eyes: PERRLA, EOMI. No pallor or icterus. Lymph: No cervical or axillary lymphadenopathy. Cardiovascular: S1/S2 regular rate and rhythm, without murmurs, gallops or rubs. Pulmonary: Clear to auscultation throughout lung davison. Abdomen: Soft, non-tender. Bowel sounds present. No appreciated organomegaly or palpable masses, exam limited d/t body habitus Joints: Freely movable, non-tender throughout. Extremities: BLE +1 pitting edema present. Neurologic: Cranial nerves II-XII grossly intact. Appropriate speech and affect. 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 Garcia is doing well overall today without significant b symptoms, no adenopathy on examination. His WBC has been gradually trending up over many years, and has risen most notably from 41 to 61 over the course of the last year. In addition, he has had a slightly progressive anemia over time,with his hemoglobin being 12.0 today from 12.8 over the last couple of years. Previously evaluated was a normal ferritin and B12 assay. After discussion with Dr. Gordon prior to our visit today, we will plan on bringing him back in six months rather than one year due to progressive leukocytosis and anemia. I have added some labs including a recheck of iron studies, B12 testing and a haptoglobin to evaluate for alternative causes of anemia at that time. We discussed symptoms that would warrant a sooner return visit. Mr. Garcia reports agreement with the plan. In the interim, he will follow up with his PCP regarding his more frequent migraines. #4 Supportive care Age appropriate cancers screenings are recommended for all CLL patients due to the increased risk ofsecondary malignancies observed in CLL. --Skin cancer screening: Ordered for return in six months Additionally, it is recommended that all CLL patients are up to date on regularly recommended immunizations due to immunocompromised state. --Pneumonia vaccination: PPSV23 05/18/04, 01/29/10 --Annual Influenza vaccination: yes --Shingles vaccination (Shingrix): Ordered first dose for return visit FOLLOW-UP: Return to clinic in 6 months, or sooner if needed PATIENT EDUCATION Ready to learn, no apparent learning barriers were identified; learning preferences include listening. Explained diagnosis and treatment plan; patient expressed understanding of the content. documented in this encounter Plan of Treatment Scheduled Referrals Name Type Priority Associated Diagnoses Order S chedule Dermatology - Skin Outpatient Referral Routine Leukemia Lympho cytic Expected: check consult Chronic Not Having 06/15/19 21 (clinic) Achieved Remission (Approxim ate), (HCC) Expires: 12/13/2022 Hematology office Outpatient Referral Routine Exp ected: visit (clinic) 06/15/2020 (Approximate), Expires: 12/13/2022 documented as of this encounter Results (ABNORMAL) Haptoglobin (06/12/2020 10:58 AM PRODUCTION OPERATIONS MANAGER) athologist Signature Haptoglobin, S 230 (H) 30 - 200 06/12/2020 SDSC mg/dL 9:45 PM PRODUCTION OPERATIONS MANAGER Specimen Anatomical Collection Method Collection Time Receive d Time (Source) Location / / Volume Laterality Blood (Blood, 06/12/2020 10:58 06/12/2020 4:12 Venous) AM PRODUCTION OPERATIONS MANAGER PM PRODUCTION OPERATIONS MANAGER Akua Esposito APRN, C.N.P., M.S.N. LAB BLOOD ADD-ON Performing Organization Address City/[facility]/ZIP [facility] Phon e Number [facility] [address] [place], [place] [address] [facility] [place] [address] Laboratory Medicine and Pathology [address] [place] Folate (06/12/2020 10:58 AM PRODUCTION OPERATIONS MANAGER) athologist Signature Folate, S 9.1 >=4.0 mcg/L 06/12/2020 DTL 12:20 PM PRODUCTION OPERATIONS MANAGER Specimen Anatomical Collection Method Collection Time Receive d Time (Source) Location / / Volume Laterality Blood (Blood, 06/12/2020 10:58 06/12/2020 Venous) AM PRODUCTION OPERATIONS MANAGER 11:20 AM PRODUCTION OPERATIONS MANAGER Akua Esposito APRN, C.N.P., M.S.N. LAB BLOOD ADD-ON Performing Organization Address City/State/[facility] Phon e Number [facility] - [address] [place], [place] [address] [place] [address] Laboratories-[facility] [place] [address] Pernicious Anemia [place] (06/12/2020 10:58 AM PRODUCTION OPERATIONS MANAGER) athologist Signature Vitamin B12 295 180 - 914 06/12/2020 [facility] Assay, S ng/L 5:47 PM PRODUCTION OPERATIONS MANAGER Comment: B-12 <400; MMA test was perform ed. Specimen Anatomical Collection Method Collection Time Receive d Time (Source) Location / / Volume Laterality Blood (Blood, 06/12/2020 10:58 06/12/2020 4:50 Venous) AM PRODUCTION OPERATIONS MANAGER PM PRODUCTION OPERATIONS MANAGER Akua Esposito APRN, C.N.P., M.S.N. LAB BLOOD NON ADD -ON Performing Organization Address City/State/ZIP Code Phon e Number [facility] [address] [place], [place] [address] [facility] [place] [address] Laboratory Medicine and Pathology [address] [place] Ferritin (06/12/2020 10:58 AM PRODUCTION OPERATIONS MANAGER) athologist Signature Ferritin, S 157 24 - 336 06/12/2020 DTL mcg/L 12:15 PM PRODUCTION OPERATIONS MANAGER Specimen Anatomical Collection Method Collection Time Receive d Time (Source) Location / / Volume Laterality Blood (Blood, 06/12/2020 10:58 06/12/2020 Venous) AM PRODUCTION OPERATIONS MANAGER 11:20 AM PRODUCTION OPERATIONS MANAGER Akua Esposito APRN, C.N.P., M.S.N. LAB BLOOD ADD-ON Performing Organization Address City/[facility]/ZIP Code Phon e Number [facility] - [address] [place], [place] [address] [place], [place] [id number] [place] [address] 200 [facility] Iron and Total Iron-Binding Capacity (06/12/2020 10:58 AM PRODUCTION OPERATIONS MANAGER) athologist Signature Iron 61 50 - 150 06/12/2020 DTL mcg/dL 11:56 AM PRODUCTION OPERATIONS MANAGER Total Iron 268 250 - 400 06/12/2020 DTL Binding Capacity mcg/dL 11:56 AM PRODUCTION OPERATIONS MANAGER Percent 23 14 - 50 % 06/12/2020 DTL Saturation 11:56 AM PRODUCTION OPERATIONS MANAGER Specimen Anatomical Collection Method Collection Time Receive d Time (Source) Location / / Volume Laterality Blood (Blood, 06/12/2020 10:58 06/12/2020 Venous) AM PRODUCTION OPERATIONS MANAGER 11:20 AM PRODUCTION OPERATIONS MANAGER Akua Esposito APRN, C.N.P., M.S.N. LAB BLOOD ADD-ON Performing Organization Address City/State/ZIP Code Phon e Number [facility] - [address] [place], [place] [address] [place] [address] [facility] [address] Reticulocytes (06/12/2020 10:58 AM PRODUCTION OPERATIONS MANAGER) athologist Signature Reticulocytes, B 1.52 0.60 - 06/12/2020 DTL 2.71 % 11:32 AM PRODUCTION OPERATIONS MANAGER Absolute 59.6 30.4 - 06/12/2020 DTL Reticulocyte 110.9 11:32 AM PRODUCTION OPERATIONS MANAGER x10(9)/L Specimen Anatomical Collection Method Collection Time Receive d Time (Source) Location / / Volume Laterality Blood (Blood, 06/12/2020 10:58 06/12/2020 Venous) AM PRODUCTION OPERATIONS MANAGER 11:23 AM PRODUCTION OPERATIONS MANAGER Akua Esposito APRN, Aleksandr.N.Jake., M.S.N. LAB BLOOD ADD-ON Performing Organization Address City/[facility] Code Phon e Number [facility] - [address] [place], [place] [address] [place] [address] [facility] [address] LD (Lactate Dehydrogenase) (06/12/2020 10:58 AM PRODUCTION OPERATIONS MANAGER) Analysis Performed At Patho logist Time Signature Lactate 168 122 - 222 06/12/2020 DTL Dehydrogenase U/L 11:56 AM PRODUCTION OPERATIONS MANAGER (LD), S Specimen Anatomical Collection Method Collection Time Receive d Time (Source) Location / / Volume Laterality Blood (Blood, 06/12/2020 10:58 06/12/2020 Venous) AM PRODUCTION OPERATIONS MANAGER 11:20 AM PRODUCTION OPERATIONS MANAGER Akua Esposito APRN, Aleksandr.N.P., M.S.N. LAB BLOOD NON ADD -ON Performing Organization Address City/State/[facility] Code Phon e Number [facility] - [address] [place], [place] [address] [facility] [place] [address] [facility] [address] (ABNORMAL) Creatinine with Estimated GFR (06/12/2020 10:58 AM PRODUCTION OPERATIONS MANAGER) athologist Signature Creatinine 1.18 0.74 - 06/12/2020 DTL 1.35 mg/dL 11:56 AM PRODUCTION OPERATIONS MANAGER eGFR-Non 56 (L) >=60 06/12/2020 DTL Black/ mL/min/BSA 11:56 AM PRODUCTION OPERATIONS MANAGER [place] Comment: ----ADDITIONAL INFORMATION---- Estimated GFR calculated using the 2009 CKD_EPI creatinine equation. eGFR-Black/ 65 >=60 mL/min/BSA 2020 11:56 AM PRODUCTION OPERATIONS MANAGER DTL Comment: ----ADDITIONAL INFORMATION---- Estimated GFR calculated using the 2009 CKD_EPI creatinine equation. Specimen Anatomical Collection Method Collection Time Receive d Time (Source) Location / / Volume Laterality Blood (Blood, 06/12/2020 10:58 06/12/2020 Venous) AM PRODUCTION OPERATIONS MANAGER 11:20 AM PRODUCTION OPERATIONS MANAGER Ifeoma Eldridge APRNN.Jake., M.S.N. LAB BLOOD ADD-ON Performing Organization Address City/State/ZIP Code Phon e Number [facility] - 200 [place], [place] [address] [facility] [place] [address] Laboratories-[facility] [place] [address] [facility] (ABNORMAL) CBC with Differential, Blood (06/12/2020 10:58 AM PRODUCTION OPERATIONS MANAGER) [facility] Method Time Signature Hemoglobin 11.5 (L) 13.2 - 06/12/2020 DTL 16.6 g/dL 11:32 AM PRODUCTION OPERATIONS MANAGER Hematocrit 36.7 (L) 38.3 - 06/12/2020 DTL 48.6 % 11:32 AM PRODUCTION OPERATIONS MANAGER Erythrocytes 3.92 (L) 4.35 - 06/12/2020 DTL 5.65 11:32 AM PRODUCTION OPERATIONS MANAGER x10(12)/L MCV 93.6 78.2 - 06/12/2020 DTL 97.9 fL 11:32 AM PRODUCTION OPERATIONS MANAGER RBC Distrib Width 14.6 (H) 11.8 - 06/12/2020 DTL 14.5 % 11:32 AM PRODUCTION OPERATIONS MANAGER Platelet Count 186 135 - 317 06/12/2020 DTL x10(9)/L 11:32 AM PRODUCTION OPERATIONS MANAGER Leukocytes 50.8 (H) 3.4 - 9.6 06/12/2020 DTL x10(9)/L 12:19 PM PRODUCTION OPERATIONS MANAGER Comment: Results confirmed by smear. Neutrophils 8.54 (H) 1.56 - 6.45 x10(9)/L 06/12/2020 12:19 PM PRODUCTION OPERATIONS MANAGER DTL Comment: Rechecked Lymphocytes 40.80 (H) 0.95 - 3.07 x10(9)/L 06/12/2020 12:19 PM PRODUCTION OPERATIONS MANAGER DTL Monocytes 1.20 (H) 0.26 - 0.81 x10(9)/L 06/12/2020 12:19 PM PRODUCTION OPERATIONS MANAGER DTL Eosinophils 0.19 0.03 - 0.48 x10(9)/L 06/12/2020 12:19 PM PRODUCTION OPERATIONS MANAGER DTL Basophils 0.04 0.01 - 0.08 x10(9)/L 06/12/2020 12:19 PM PRODUCTION OPERATIONS MANAGER DTL Specimen Anatomical Collection Method Collection Time Receive d Time (Source) Location / / Volume Laterality Blood (Blood, 06/12/2020 10:58 06/12/2020 Venous) AM PRODUCTION OPERATIONS MANAGER 11:23 AM PRODUCTION OPERATIONS MANAGER Aleksandr Eldridge APRN.NCarlyn., M.S.N. LAB BLOOD ADD-ON Performing Organization Address City/[facility] Phon e Number [facility] - [address] Bilirubin, Total (06/12/2020 10:58 AM PRODUCTION OPERATIONS MANAGER) P athologist Signature Bilirubin, 0.5 <=1.2 mg/dL 06/12/2020 DTL Total, S 11:56 AM PRODUCTION OPERATIONS MANAGER Specimen Anatomical Collection Method Collection Time Receive d Time (Source) Location / / Volume Laterality Blood (Blood, 06/12/2020 10:58 06/12/2020 Venous) AM PRODUCTION OPERATIONS MANAGER 11:20 AM PRODUCTION OPERATIONS MANAGER Aleksandr Eldridge APRN.NSimonP., M.S.N. LAB BLOOD ADD-ON Performing Organization Address City/[facility] Phon e Number [facility] [address] AST (Aspartate Aminotransferase) (06/12/2020 10:58 AM PRODUCTION OPERATIONS MANAGER) Patholo gist Method Time Signature Aspartate 19 8 - 48 06/12/2020 DTL Aminotransferase U/L 11:56 AM PRODUCTION OPERATIONS MANAGER (AST), S Specimen Anatomical Collection Method Collection Time Receive d Time (Source) Location / / Volume Laterality Blood (Blood, 06/12/2020 10:58 06/12/2020 Venous) AM PRODUCTION OPERATIONS MANAGER 11:20 AM PRODUCTION OPERATIONS MANAGER Akua Esposito APRN, C.N.P., M.S.N. LAB BLOOD ADD-ON Performing Organization Address City/[facility] Phon e Number [facility] - [address] [place] [address] Alkaline Phosphatase (06/12/2020 10:58 AM PRODUCTION OPERATIONS MANAGER) P athologist Signature Alkaline 114 40 - 129 06/12/2020 DTL Phosphatase, S U/L 11:56 AM PRODUCTION OPERATIONS MANAGER Specimen Anatomical Collection Method Collection Time Receive d Time (Source) Location / / Volume Laterality Blood (Blood, 06/12/2020 10:58 06/12/2020 Venous) AM PRODUCTION OPERATIONS MANAGER 11:20 AM PRODUCTION OPERATIONS MANAGER Akua Esposito APRN, C.N.P., M.S.N. 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
--- OUTSIDE RECORDS SUMMARY | 2022-03-26 22:26 | XMS_ITS | Encounter Summary ---
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 [address] [place] [address] Referral ID Status Reason Start Date Expiration Date Visits Requ ested Visits Authorized [id number] Closed 11/20/2020 11/20/2021 1 1 Reason for Visit Reason Comments Cardiology appointment request Encounter Details Date Type Department Care Team Description 11/20/2020 Clinical Communication Division of Meliton Gordon Hematology mayda Mcleod M.D. appointment [place], [place] [address] [place] [phone] Social History Tobacco Use Types Packs/Day Years [...] or relatives? How often do you attend hindu or Patient refused 2021 druze services? Do you belong to any clubs or No 12/31/2021 organizations such as hindu groups, unions, fraternal or athletic groups, or [...] Telephone Encounter - Alva Villanueva R.N. - 11/20/2020 2:55 PM CDT Can you please call patient to coordinate cardiology appointment? Thank you! Telephone Encounter - Dung Barry M.B., Ch.B. - 11/20/2020 1:24 PM CDT Done Thanks Telephone Encounter - Alva Villanueva R.N. - 11/20/2020 12:[address] Barry, in Dr. Gordon's absence, can you place cardiology referral? Thank you! Dr. Gordon's note 10/10/20: I shared with him and his daughter that I do hear some fine rales in the lower 1/3 of his lung davison and he has significant edema. 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 Tono recommended that he contact his apparel cutter and get in to see them for an evaluation. ?? Telephone Encounter - Aaron Bui - 11/20/2020 12:20 PM CDT Call from Mr. Kristofer Garcia. - Please put in an order for patient to be seen in Cardiology at [place]. Dr. Gordon had recommended he see his local apparel cutter, but they do not travel to his hometown anymore. He would appreciate if that could be scheduled at [place]. Call him with any question: [phone] Ok to leave message. 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
--- OUTSIDE RECORDS SUMMARY | 2022-03-26 22:26 | XMS_ITS | Encounter Summary ---
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 [facility] [address] [place] [address] Referral ID Status Reason Start Date Expiration Date Visits Requ ested Visits Authorized Closed 11/10/2019 11/09/2020 1 1 Reason for Visit Reason Comments Pre-visit Testing Orders Encounter Details Date Type Department Care Team Description 11/10/2019 Clinical Communication Division of Meliton Gordon Pre- visit Testing Hematology mayda Mcleod M.D. Orders [place], [place] [address] [place] [address] Social History Tobacco Use Types Packs/Day Years [...] you attend episcopalian or Patient refused 2021 bahai services? Do you belong to any clubs [...] this encounter Miscellaneous Notes Telephone Encounter - Saadia Moore - 11/11/2019 8:45 AM CDT Desk scheduled Telephone Encounter - Meliton Gordon M.D. - 11/10/2019 11:17 AM CDT Thanks Orders signed Telephone Encounter - Sarah Wellington - 11/10/2019 11:03 AM CDT Primary Provider Relations Manager: Dr. Heidi Garcia was last seen by you on 12/07/18 Current patient concerns and/or reason for pended orders: Patient would like follow up. Please advise regarding appointment request and route to P T HEM SCHEDULING 1. Pended orders have been signed, OR 2. No return is necessary at this time (if selected please remove pended orders). Please note, complex diagnostic testing (i.e. PET/CT/MRI/Bone Marrow Bx, etc.) has not been pended. If necessary, please order and issue complex diagnostic testing. Thank you for your time and consideration of this request. Sarah documented in this encounter Plan of Treatment Scheduled Referrals Name Type Priority Associated Diagnoses Order S [facility] Hematology office Outpatient Referral Routine Leukemia Lymphoc ytic Expected: visit (clinic) Chronic Not Having 020 Achieved Remission (Approxim ate), (HCC) Expires: 11/09/2022 documented as of this encounter Results Reticulocytes (12/14/2019 8:38 AM CDT) P athologist Signature Reticulocytes, B 1.26 0.60 - 12/14/2019 DTL 2.71 % 9:16 AM CDT Absolute 51.3 30.4 - 12/14/2019 DTL Reticulocyte 110.9 9:16 AM CDT x10(9)/L Specimen Anatomical Collection Method Collection Time Receive d Time (Source) Location / / Volume Laterality Blood (Blood, 12/14/2019 8:38 AM 12/14/19 20 9:06 Venous) CDT AM CDT Meliton Gordon M.D. LAB BLOOD ADD-ON Performing Organization Address City/[facility]/ZIP Code Phon e Number [facility] - [address] LD (Lactate Dehydrogenase) (12/14/2019 8:38 AM CDT) Analysis Performed At Patho logist Time Signature Lactate 168 122 - 222 12/14/2019 DTL Dehydrogenase U/L 9:42 AM CDT (LD), S Specimen Anatomical Collection Method Collection Time Receive d Time (Source) Location / / Volume Laterality Blood (Blood, 12/14/2019 8:38 AM 12/14/19 20 9:24 Venous) CDT AM CDT Meliton Gordon M.D. LAB BLOOD NON ADD-ON Performing Organization Address City/[facility] Phon e Number [facility] - [address] (ABNORMAL) Creatinine with Estimated GFR (12/14/2019 8:38 AM CDT) P athologist Signature Creatinine 1.27 0.74 - 12/14/2019 DTL 1.35 mg/dL 9:42 AM CDT eGFR-Non 52 (L) >=60 12/14/2019 DTL Black/ mL/min/BSA 9:42 AM CDT Congolese Comment: ----ADDITIONAL INFORMATION---- Estimated GFR calculated using the 2009 CKD_EPI creatinine equation. eGFR-Black/ 60 >=60 mL/min/BSA 2019 9:42 AM CDT DTL Comment: ----ADDITIONAL INFORMATION---- Estimated GFR calculated using the 2009 CKD_EPI creatinine equation. Specimen Anatomical Collection Method Collection Time Receive d Time (Source) Location / / Volume Laterality Blood (Blood, 12/14/2019 8:38 AM 12/14/19 20 9:24 Venous) CDT AM CDT Meliton Gordon M.D. LAB BLOOD ADD-ON Performing Organization Address City/State/[facility] Code Phon e Number [facility] - [address] [place], [place] [address] [facility] [place] [address] [address] [address] (ABNORMAL) CBC with Differential, Blood (12/14/2019 8:38 AM CDT) [facility] Method Time Signature Hemoglobin 12.0 (L) 13.2 - 12/14/2019 DTL 16.6 g/dL 9:16 AM CDT Hematocrit 38.5 38.3 - 12/14/2019 DTL 48.6 % 9:16 AM CDT Erythrocytes 4.07 (L) 4.35 - 12/14/2019 DTL 5.65 9:16 AM CDT x10(12)/L MCV 94.6 78.2 - 12/14/2019 DTL 97.9 fL 9:16 AM CDT RBC Distrib Width 14.4 11.8 - 12/14/2019 DTL 14.5 % 9:16 AM CDT Platelet Count 191 135 - 317 12/14/2019 DTL x10(9)/L 9:16 AM CDT Leukocytes 61.7 (H) 3.4 - 9.6 12/14/2019 DTL x10(9)/L 10:05 AM CDT Comment: Results confirmed by smear. Neutrophils SeeComment 1.56 - 6.45 x10(9)/L 12/14/2019 10:05 AM CDT DTL Comment: Auto-diff results not valid. Se e manual differential. Specimen Anatomical Collection Method Collection Time Receive d Time (Source) Location / / Volume Laterality Blood (Blood, 12/14/2019 8:38 AM 12/14/19 20 9:06 Venous) CDT AM CDT Meliton Gordon M.D. LAB BLOOD ADD-ON Performing Organization Address City/[facility] Phon e Number [facility] - [address] [place], [place] [address] [facility] [place] [address] [address] Bilirubin, Total (12/14/2019 8:38 AM CDT) P athologist Signature Bilirubin, 0.3 <=1.2 mg/dL 12/14/2019 DTL Total, S 9:42 AM CDT Specimen Anatomical Collection Method Collection Time Receive d Time (Source) Location / / Volume Laterality Blood (Blood, 12/14/2019 8:38 AM 12/14/19 20 9:24 Venous) CDT AM CDT Meliton Gordon M.D. LAB BLOOD ADD-ON Performing Organization Address City/State/ZIP Code Phon e Number [facility] - [address] [place], [place] [address] [place] [address] [facility] [address] AST (Aspartate Aminotransferase) (12/14/2019 8:38 AM CDT) Patholo gist Method Time Signature Aspartate 24 8 - 48 12/14/2019 DTL Aminotransferase U/L 9:42 AM CDT (AST), S Specimen Anatomical Collection Method Collection Time Receive d Time (Source) Location / / Volume Laterality Blood (Blood, 12/14/2019 8:38 AM 12/14/19 20 9:24 Venous) CDT AM CDT Meliton Gordon M.D. LAB BLOOD ADD-ON Performing Organization Address City/State/ZIP Code Phon e Number [facility] - [address] [place], [place] [address] [facility] [place] [place] [address] [facility] [address] Alkaline Phosphatase (12/14/2019 8:38 AM CDT) P athologist Signature Alkaline 94 40 - 129 12/14/2019 DTL Phosphatase, S U/L 9:42 AM CDT Specimen Anatomical Collection Method Collection Time Receive d Time (Source) Location / / Volume Laterality Blood (Blood, 12/14/2019 8:38 AM 12/14/19 20 9:24 Venous) CDT AM CDT Meliton Gordon M.D. 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
--- OUTSIDE RECORDS SUMMARY | 2022-03-26 22:26 | XMS_ITS | Encounter Summary ---
:1935 Author Organization [facility] Address [address] [place] [address] Care Team Providers Name Role Phone Unavailable Primary Care Provider Unavailable Reason for Referral Outpatient (Routine) - Closed Specialty Diagnoses / Procedures Referred By Contact Lidia sheffield To Contact Hematology Oncology Meliton Gordon M.D . [address] [address] Referral ID Status Reason Start Date Expiration Date Visits Requ ested Visits Authorized [id number] Closed 10/10/2020 10/10/2021 1 1 Reason for Visit Outpatient (Routine) - Closed Specialty Diagnoses / Procedures Referred By Contact Lidia sheffield To Contact Hematology Oncology Meliton Gordon M.D . [address] [phone] Referral ID Status Reason Start Date Expiration Date Visits Requ ested Visits Authorized [id number] Closed 06/12/2020 06/12/2021 1 1 Encounter Details Date Type Department Care Team Description 10/10/2020 Office Visit Division of Meliton Gordon, Leukemia Ly mphocytic Hematology in M.DSimon Chronic Not Mooney ving [place], [place] Achieved Remission [address] [facility] (HCC) (Primary Dx) [place] [address] Social History Tobacco Use Types Packs/Day Years [...] or relatives? How often do you attend scientologist or Patient refused 2021 yarsanism services? Do you belong to any clubs or No 12/31/2021 organizations such as scientologist groups, unions, [employer] or athletic groups, or school groups? How [...] for the very basics like Not h ikera at all 12/31/2021 food, housing, medical care, [...] place to sleep or slept in a custodial (including now)? Sex Assigned at Date Recorded Male 12/31/2021 3:41 PM CDT documented as of this encounter Last Filed Vital Signs Vital Sign Reading Time Taken Comments Blood Pressure 167/77 10/10/2020 2:36 PM CDT Pulse 76 10/10/2020 2:36 PM CDT Temperature 35 ??C (95 ??F) 10/10/2020 2:36 PM CDT Respiratory Rate - - Oxygen Saturation - - Inhaled Oxygen Concentration - - Weight 103 kg (227 lb 15.3 oz) 10/10/2020 2:36 PM CDT Height 175.4 cm (5' 9.06) 10/10/2020 2:36 PM CDT Body Mass Index 33.61 10/10/2020 2:36 PM CDT documented in this encounter Progress Notes CallMeliton M.D. - 10/10/2020 2:30 PM CDT SUBJECTIVE Referring Provider CallMeliton M.D. CHIEF COMPLAINT/REASON FOR VISIT Follow-up of CLL, gradually progressive, on observation HISTORY OF PRESENT ILLNESS Kristofer Garcia is a 84 y.o. male with a 14 year history of CLL. He has been observed during that time is never required treatment. We saw him earlier this year his hemoglobin had drifted downto 11.5. This was a trend that had been developing over the last year so. We elected to check a B12 and ferritin which were adequate. We elected then to have him return now for a repeat blood count andeval. He returns any is noticing some increase in shortness of breath with exertion. He does have a history of coronary artery disease and has a tie loader in [place]. He states that he knows cardiologists have been discussing the possibility of a heart catheterization. He is on spironolactone as a diuretic. He otherwise has no signs or symptoms of progressive CLL. 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 Anemia No family history on file. REVIEW OF SYSTEMS General review of systems including General, Skin, HEENT, Cardiac, Respiratory, GI, , Musculoskeletal, and Neurologic is noncontributory or as follows: ECOG PS 1 Current Outpatient Medications Medication Sig Dispense Refill ??? ascorbic acid, vitamin C, (ascorbic acid with mildred hips) 500 mg tablet Take 1 tablet by mouth daily. ??? atorvastatin (LIPITOR) 20 mg tablet Take 20 mg by mouth. ??? atorvastatin (LIPITOR) 40 mg tablet Take 0.5 tablets by mouth daily. ??? carvediloL (COREG) 25 mg tablet Take 25 mg by mouth 2 (two) times a day with meals. ??? Eliquis 5 mg tablet 5 mg 2 (two) times a day. ??? glimepiride (AMARYL) 2 mg tablet Take 2 mg by mouth daily with breakfast. ??? omega-3 fatty acids/fish oil (OMEGA 3 FISH OIL ORAL) Take 1 capsule by mouth daily. ??? omeprazole (PriLOSEC) 20 mg capsule Take 1 capsule by mouth 2 (two) times a day. ??? salmon oil/omega-3 fatty acids (SALMON OIL-1000 ORAL) Take 1 tablet by mouth daily. ??? silver sulfADIAZINE (SILVADENE, SSD) 1 % cream Apply topically. ??? spironolactone (ALDACTONE) 50 mg tablet ??? triamcinolone (KENALOG) 0.1 % cream Apply topically. ??? valsartan (DIOVAN) 320 mg tablet Take 320 mg by mouth. ??? vitamin E 400 unit capsule Take 1 capsule by mouth daily. No current facility-administered medications for this visit. OBJECTIVE Vitals: 10/10/20 1436 BP: (!) 167/77 Pulse: 76 Temp: (!) 35 ??C Height: 175.4 cm Weight: 103 kg Body surface area is 2.24 meters squared. PHYSICAL EXAM General: Alert, oriented, in no discomfort. Skin: Normal Eyes: Normal ENT: Normal Lymph: No cervical, supraclavicular, axillary or inguinal adenopathy. Heart: S1, S2 normal. Regular rate and rhythm. No murmurs. Lungs: His lungs are normal to percussion. However I can not hear multiple fine crackles in both lower one thirds of the lung field consistent with possible fluid overload. Abdomen: Non-tender to palpation. No hepatosplenomegaly. Neuro: grossly normal. Extremities: There is bilateral lower extremity edema right greater than left. The right increase insize is chronic and not new. However he does have significant edema in both. DIAGNOSTICS I have reviewed the recent relevant labs. No results found. Recent Results (from the past 72 hour(s)) CBC with Differential, Blood Collection Time: 10/10/20 10:55 AM Result Value Hemoglobin 12.0 (L) Hematocrit 36.9 (L) Erythrocytes 4.01 (L) MCV 92.0 RBC Distrib Width 15.3 (H) Platelet Count 176 Leukocytes 45.0 (H) Neutrophils 7.73 (H) Lymphocytes 34.80 (H) Monocytes 2.25 (H) Eosinophils 0.17 Basophils 0.05 LD (Lactate Dehydrogenase) Collection Time: 10/10/20 10:55 AM Result Value Lactate Dehydrogenase (LD), S 177 Reticulocytes Collection Time: 10/10/20 10:55 AM Result Value Reticulocytes, B 1.19 Absolute Reticulocyte 47.7 Bilirubin, Direct Collection Time: 10/10/20 10:55 AM Result Value Bilirubin, Direct, S <0.2 Comprehensive Metabolic Panel Collection Time: 10/10/20 10:55 AM Result Value Potassium, S 4.6 Sodium, S 143 Chloride, S 109 (H) Bicarbonate, S 25 Anion Gap 9 Bld Urea Nitrog(BUN), S 26 (H) Creatinine, S 1.23 eGFR-Non Black 54 (L) eGFR-Black 62 Calcium, Total, S 9.4 Glucose, S 128 Protein, Total, S 5.7 (L) Albumin, S 4.1 Aspartate Aminotransferase (AST), S 19 Alkaline Phosphatase, S 100 Alanine Aminotransferase (ALT), S 19 Bilirubin, Total, S 0.3 Uric Acid Collection Time: 10/10/20 10:55 AM Result Value Uric Acid, S 5.9 Direct Antiglobulin Test (Poly) Collection Time: 10/10/20 10:55 AM Result Value Direct Antiglobulin Test, Polyspecific Negative ASSESSMENT / PLAN #1 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 Therefore there is no indication to do further workup for consider treating the CLL at this time. I shared with him and his daughter that I do hear some fine rales in the lower 1/3 of his lung davison and he has significant edema. 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 Ihave recommended that he contact his tie loader and get in to see them for an evaluation. Follow-up: Return to clinic in 6 months Education We discussed the diagnosis and treatment plan in detail. The patient expressed understanding of the content. No apparent learning barriers were identified; learning preferences include listening. I personally spent 35 minutes in care of the patient today. Time includes both non face to face and face to face patient care. Signed by: Renate Gordon M.D. 10/10/2020 6:33 PM CDT documented in this encounter Plan of Treatment Scheduled Referrals Name Type Priority Associated Order Schedule Diagnoses Hematology office Outpatient Referral Routine Exp ected: visit (clinic) 05/02/2021 (Approximate), Expires: 10/11/2023 documented as of this encounter Results Reticulocytes (05/02/2021 10:06 AM LOCOMOTIVE CRANE ENGINEER) P athologist Signature Reticulocytes, B 1.42 0.60 - 05/02/2021 DTL 2.71 % 10:37 AM LOCOMOTIVE CRANE ENGINEER Absolute 55.8 30.4 - 05/02/2021 DTL Reticulocyte 110.9 10:37 AM LOCOMOTIVE CRANE ENGINEER x10(9)/L Specimen Anatomical Collection Method Collection Time Receive d Time (Source) Location / / Volume Laterality Blood (Blood, 05/02/2021 10:06 05/02/2021 Venous) AM LOCOMOTIVE CRANE ENGINEER 10:30 AM LOCOMOTIVE CRANE ENGINEER Meliton Gordon M.D. LAB BLOOD ADD-ON Performing Organization Address City/State/ZIP Code Phon e Number [facility] - [address] [place], [place] [address] [facility] [place] [address] Laboratories-[facility] [address] [facility] (ABNORMAL) CBC with Differential, Blood (05/02/2021 10:06 AM LOCOMOTIVE CRANE ENGINEER) [facility] gist Method Time Signature Hemoglobin 11.2 (L) 13.2 - 05/02/2021 DTL 16.6 g/dL 10:37 AM LOCOMOTIVE CRANE ENGINEER Hematocrit 35.9 (L) 38.3 - 05/02/2021 DTL 48.6 % 10:37 AM LOCOMOTIVE CRANE ENGINEER Erythrocytes 3.93 (L) 4.35 - 05/02/2021 DTL 5.65 10:37 AM LOCOMOTIVE CRANE ENGINEER x10(12)/L MCV 91.3 78.2 - 05/02/2021 DTL 97.9 fL 10:37 AM LOCOMOTIVE CRANE ENGINEER RBC Distrib Width 15.0 (H) 11.8 - 05/02/2021 DTL 14.5 % 10:37 AM LOCOMOTIVE CRANE ENGINEER Platelet Count 185 135 - 317 05/02/2021 DTL x10(9)/L 10:37 AM LOCOMOTIVE CRANE ENGINEER Leukocytes 39.1 (H) 3.4 - 9.6 05/02/2021 DTL x10(9)/L 11:24 AM LOCOMOTIVE CRANE ENGINEER Comment: Results confirmed by smear. Neutrophils 7.02 (H) 1.56 - 6.45 x10(9)/L 05/02/2021 11:24 AM LOCOMOTIVE CRANE ENGINEER DTL Comment: Rechecked Lymphocytes 30.64 (H) 0.95 - 3.07 x10(9)/L 05/02/2021 11:24 AM LOCOMOTIVE CRANE ENGINEER DTL Monocytes 1.15 (H) 0.26 - 0.81 x10(9)/L 05/02/2021 11:24 AM LOCOMOTIVE CRANE ENGINEER DTL Eosinophils 0.22 0.03 - 0.48 x10(9)/L 05/02/2021 11:24 AM LOCOMOTIVE CRANE ENGINEER DTL Basophils 0.06 0.01 - 0.08 x10(9)/L 05/02/2021 11:24 AM LOCOMOTIVE CRANE ENGINEER DTL Specimen Anatomical Collection Method Collection Time Receive d Time (Source) Location / / Volume Laterality Blood (Blood, 05/02/2021 10:06 05/02/2021 Venous) AM LOCOMOTIVE CRANE ENGINEER 10:30 AM LOCOMOTIVE CRANE ENGINEER Meliton Gordon M.D. LAB BLOOD ADD-ON Performing Organization Address City/State/ZIP Code Phon e Number [facility] - [address] [place], [place] [address] [facility] [place] [address] Laboratories-[address] LD (Lactate Dehydrogenase) (05/02/2021 10:05 AM LOCOMOTIVE CRANE ENGINEER) Analysis Performed At Patho logist Time Signature Lactate 172 122 - 222 05/02/2021 DTL Dehydrogenase U/L 11:55 AM LOCOMOTIVE CRANE ENGINEER (LD), S Specimen Anatomical Collection Method Collection Time Receive d Time (Source) Location / / Volume Laterality Blood (Blood, 05/02/2021 10:05 05/02/2021 Venous) AM LOCOMOTIVE CRANE ENGINEER 11:04 AM LOCOMOTIVE CRANE ENGINEER Meliton Gordon M.D. LAB BLOOD NON ADD-ON Performing Organization Address City/[facility] Code Phon e Number [facility] - [address] [place], [place] [address] [facility] [address] (ABNORMAL) Creatinine with Estimated GFR (05/02/2021 10:05 AM LOCOMOTIVE CRANE ENGINEER) P athologist Signature Creatinine 1.15 0.74 - 05/02/2021 DTL 1.35 mg/dL 11:55 AM LOCOMOTIVE CRANE ENGINEER eGFR-Non 58 (L) >=60 05/02/2021 DTL Black/ mL/min/BSA 11:55 AM LOCOMOTIVE CRANE ENGINEER [facility] Comment: ----ADDITIONAL INFORMATION---- Estimated GFR calculated using the 2009 CKD_EPI creatinine equation. eGFR-Black/ 67 >=60 mL/min/BSA 2020 11:55 AM LOCOMOTIVE CRANE ENGINEER DTL Comment: ----ADDITIONAL INFORMATION---- Estimated GFR calculated using the 2009 CKD_EPI creatinine equation. Specimen Anatomical Collection Method Collection Time Receive d Time (Source) Location / / Volume Laterality Blood (Blood, 05/02/2021 10:05 05/02/2021 Venous) AM LOCOMOTIVE CRANE ENGINEER 11:04 AM LOCOMOTIVE CRANE ENGINEER Meliton Gordon M.D. LAB BLOOD ADD-ON Performing Organization Address City/State/ZIP Code Phon e Number [facility] - [address] [place], [place] [address] [facility] [place] [address] [facility] [address] Bilirubin, Total (05/02/2021 10:05 AM LOCOMOTIVE CRANE ENGINEER) P athologist Signature Bilirubin, 0.4 <=1.2 mg/dL 05/02/2021 DTL Total, S 11:55 AM LOCOMOTIVE CRANE ENGINEER Specimen Anatomical Collection Method Collection Time Receive d Time (Source) Location / / Volume Laterality Blood (Blood, 05/02/2021 10:05 05/02/2021 Venous) AM LOCOMOTIVE CRANE ENGINEER 11:04 AM LOCOMOTIVE CRANE ENGINEER Meliton Gordon M.D. LAB BLOOD ADD-ON Performing Organization Address City/State/ZIP Code Phon e Number [facility] - [address] [place], [place] [address] [facility] [place] [address] Laboratories-[facility] [address] AST (Aspartate Aminotransferase) (05/02/2021 10:05 AM LOCOMOTIVE CRANE ENGINEER) Patholo gist Method Time Signature Aspartate 19 8 - 48 05/02/2021 DTL Aminotransferase U/L 11:55 AM LOCOMOTIVE CRANE ENGINEER (AST), S Specimen Anatomical Collection Method Collection Time Receive d Time (Source) Location / / Volume Laterality Blood (Blood, 05/02/2021 10:05 05/02/2021 Venous) AM LOCOMOTIVE CRANE ENGINEER 11:04 AM LOCOMOTIVE CRANE ENGINEER Meliton Gordon M.D. LAB BLOOD ADD-ON Performing Organization Address City/State/ZIP Code Phon e Number [facility] - [address] [place], [place] [address] [facility] [place] [address] [facility] [address] Alkaline Phosphatase (05/02/2021 10:05 AM LOCOMOTIVE CRANE ENGINEER) P athologist Signature Alkaline 100 40 - 129 05/02/2021 DTL Phosphatase, S U/L 11:55 AM LOCOMOTIVE CRANE ENGINEER Specimen Anatomical Collection Method Collection Time Receive d Time (Source) Location / / Volume Laterality Blood (Blood, 05/02/2021 10:05 05/02/2021 Venous) AM LOCOMOTIVE CRANE ENGINEER 11:04 AM LOCOMOTIVE CRANE ENGINEER Meliton Gordon M.D. 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
--- OUTSIDE RECORDS SUMMARY | 2022-03-26 22:26 | XMS_ITS | Encounter Summary ---
:1935 Author Organization [facility] Address [address] [place] [address] Care Team Providers Name Role Phone Unavailable Primary Care Provider Unavailable Reason for Visit Reason Comments COVID Inquiry Encounter Details Date Type Department Care Team Description 04/11/2020 Clinical Communication Division of Call, Aleksandr Reyes Inquiry Hematology in M.D. [place], [place] [address] [place] [address] Social History Tobacco Use Types Packs/Day Years [...] you attend shinto or Patient refused 2021 pentecostal services? Do [...] this encounter Miscellaneous Notes Telephone Encounter - Farideh Loera 04/11/2020 2:27 PM CST COVID DOS/PASS Screening What is the patient requesting?: Additional Appointments (Continue with screening) Have you tested positive for COVID-19 in the last 30 days (20 days for ARZ) or do you have a pendingCOVID-19 test because you had symptoms?: No (Continue with screening) Have you had close contact* with a person who has a LABORATORY CONFIRMED case of COVID-19 in the past 14 days?: No (Continue with screening) When is the patient asking to be scheduled F2F?: Greater than 30 days in [facility], [facility], [facility]N (End screening - run decision tree and schedule as appropriate) Plan: Endpoint recommendation: Followed OTG *Reminder if sending patient for testing in [facility] or [facility], an email notification is required. ONAL FACILITIES MANAGER documented in this encounter Plan of Treatment Not on filedocumented as of this encounter Visit Diagnoses Not on filedocumented in this encounter
--- OUTSIDE RECORDS SUMMARY | 2022-03-26 22:26 | XMS_ITS | Encounter Summary ---
:1935 Author Organization [facility] Address [address] [place] [address] Care Team Providers Name Role Phone Unavailable Primary Care Provider Unavailable Encounter Details Date Type Department Care Team Description 11/30/2019 Orders Only Division of Hematology Judit Vital Leukemia Lymphocytic in [place] [address] [address] [facility] Chronic Not Having [place], [place] Achieved Remission [address] [facility] [id number] (HCC) (Primary Dx) [place], [place] [phone] (Work) [phone] Social History Tobacco Use Types Packs/Day Years [...] or relatives? How often do you attend yarsanism or Patient refused 2021 spiritism services? Do you belong to any clubs or No 12/31/2021 organizations such as yarsanism groups, unions, fraternal or athletic groups, or [...] on filedocumented as of this encounter Results [id number] 12MG V1396 (12/14/2019 8:38 AM CDT) Analysis Performed [place] [address] Collected DEFAULT 12/14/2019 HSS A N 01 8:[place] [address] Collected DEFAULT 12/14/2019 HSS A N 02 8:[place] [address] Collected DEFAULT 12/14/2019 HSS A N 03 8:38 [place] [address] Collected DEFAULT 12/14/2019 HSS A N 04 8:38 [place] [address] Collected DEFAULT 12/14/2019 HSS A N 05 8:38 [place] [address] Collected DEFAULT 12/14/2019 HSS A N 08 8:[place] [address] Collected DEFAULT 12/14/2019 HSS A N 04 8:38 AM CDT Specimen Anatomical Collection Method Collection Time Receive d Time (Source) Location / / Volume Laterality Blood (Blood, 12/14/2019 8:38 AM 12/14/19 8:38 Venous) CDT AM CDT Narrative [facility] - 12/14/2019 8:38 AM CDT Specimen Information: Specimen ID: [id number] Specimen Type: Blood Specimen Collection Start Date: 12/14/19 20 ??8:38 AM Specimen Received Date: 12/14/2019 ??8:3 8 AM Specimen ID: [id number] Specimen Type: Blood Specimen Collection Start Date: 12/14/19 20 ??8:38 AM Specimen Received Date: 12/14/2019 ??8:3 8 AM Specimen ID: [id number] Specimen Type: Blood Specimen Collection Start Date: 12/14/19 20 ??8:38 AM Specimen Received Date: 12/14/2019 ??8:3 8 AM Specimen ID: [id number] Specimen Type: Blood Specimen Collection Start Date: 12/14/19 20 ??8:38 AM Specimen Received Date: 12/14/2019 ??8:3 8 AM Specimen ID: [id number] Specimen Type: Blood Specimen Collection Start Date: 12/14/19 20 ??8:38 AM Specimen Received Date: 12/14/2019 ??8:3 8 AM Specimen ID: [id number] Specimen Type: Blood Specimen Collection Start Date: 12/14/19 ??8:38 AM Specimen Received Date: 12/14/2019 ??8:3 8 AM Specimen ID: [id number] Specimen Type: Blood Specimen Collection Start Date: 12/14/19 ??8:38 AM Specimen Received Date: 12/14/2019 ??8:3 8 AM Fidel Rose M.D. 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
--- OUTSIDE RECORDS SUMMARY | 2022-03-26 22:26 | XMS_ITS | Encounter Summary ---
:1935 Author Organization [facility] Address [address] [place] [address] Care Team Providers Name Role Phone Unavailable Primary Care Provider Unavailable Reason for Referral Outpatient (Routine) - Closed Specialty Diagnoses / Procedures Referred By Contact Lidia sheffield To Contact Hematology Oncology Meliton Gordon M.D . 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 Yasmin MUÑOZ, M.S.N. [address] [place] [address] Referral ID Status Reason Start Date Expiration Date Visits Requ ested Visits Authorized [id number] Closed 12/14/2019 12/13/2020 1 1 Encounter Details Date Type Department Care Team Description 06/12/2020 Office Visit Division of Meliton Gordon Leukemia Ly mphocytic Chronic Not Having Achieved Remission (HCC) (Primary Dx); Hematology in M.D. Anemia [place], [place] [address] [place] [phone] Social History Tobacco Use Types Packs/Day Years [...] or relatives? How often do you attend jainism or Patient refused 2021 pentecostalism services? Do you belong to any clubs or No 12/31/2021 organizations such as jainism groups, unions, [employer] or athletic groups, or school groups? How [...] Sign Reading Time Taken Comments Blood Pressure 177/64 06/12/2020 2:56 PM ZONE SUPERVISOR [employer]AR[employer] Pulse 72 06/12/2020 2:56 PM ZONE SUPERVISOR [employer] Temperature 36 ??C (96.8 ??F) 06/12/2020 2:56 PM ZONE SUPERVISOR [employer] Respiratory Rate - - Oxygen Saturation - - Inhaled Oxygen Concentration - - Weight 104 kg (229 lb 8 oz) 06/12/2020 2:56 PM ZONE SUPERVISOR [employer]AR[employer] Height 174 cm (5' 8.5) 06/12/2020 2:56 PM ZONE SUPERVISOR [employer]REARMS Body Mass Index 34.38 06/12/2020 2:56 PM ZONE SUPERVISOR [employer] documented in this encounter Progress Notes Meliton Gordon M.D. - 06/12/2020 3:00 PM CST SUBJECTIVE Referring Provider Akua Esposito APRN C.N.P., M.S.N. CHIEF COMPLAINT/REASON FOR VISIT Follow-up of CLL HISTORY OF PRESENT ILLNESS Kristofer Garcia is a 84 y.o. 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 He has been observedover that time and there has been no signs or symptoms of progression that required treatment. When last seen here in six months ago he was noted to have a slightly increased white count and a slightly decreased hemoglobin. Because of that rather than see him annually we we are seeing him back at the six-month interval. He feels generally well and voices no complaints. However, he does note that he more easily gets fatigued when he is doing things and has a little bit of more shortness of breath with exertion. He apparently states he has had his heart function checked out and it was ???okay?? . No signs of bleeding. No signs of progressive adenopathy, night sweats, or other constitutional symptoms. 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 ??? aspirin (ADULT LOW DOSE ASPIRIN) [address] tablet Take 1 tablet by mouth daily. ??? atenolol (TENORMIN) 25 mg tablet Take 1 tablet by mouth 2 (two) times a day. ??? atorvastatin (LIPITOR) 20 mg tablet Take [...] mg by mouth daily with breakfast. ??? hydroCHLOROthiazide (HYDRODIURIL) 25 mg tablet Take 1 tablet by mouth daily. ??? nitroglycerin (NITROSTAT) 0.[address] 1 tablet under the tongue as needed. Place 1 tab under the tongue at first sign of chest pain. If no relief in 5 min, call 911. Repeat dose every 5 min up to 2 additional doses if chest pain continues. ??? omega-3 fatty acids/fish oil (OMEGA 3 FISH OIL ORAL) Take 1 capsule by mouth daily. ??? omeprazole (PriLOSEC) 20 mg capsule Take 1 capsule by mouth 2 (two) times a day. ??? salmon oil/omega-3 fatty acids (SALMON OIL-1000 ORAL) Take 1 tablet by mouth daily. ??? spironolactone (ALDACTONE) 50 mg tablet ??? vitamin E 400 unit capsule Take 1 capsule by mouth daily. No current facility-administered medications for this visit. OBJECTIVE Vitals: 06/12/20 1456 BP: (!) 177/64 Patient Position: Sitting Pulse: 72 Temp: 36 ??C Height: 174 cm Weight: 104 kg TempSrc: Tympanic Body surface area is 2.24 meters squared. PHYSICAL EXAM General: Alert, oriented, in no discomfort. Skin: Normal Eyes: Normal ENT: Normal Lymph: No cervical, supraclavicular, axillary or inguinal adenopathy. Heart: S1, S2 normal. Regular rate and rhythm. No murmurs. Lungs: Clear to auscultation, bilateral good air entry. Abdomen: Abdomen is obese Non-tender to palpation. No hepatosplenomegaly. Neuro: grossly normal. Extremities: No pitting edema or deformities. DIAGNOSTICS I have reviewed the recent relevant labs. No results found. Recent Results (from the past 72 hour(s)) Alkaline Phosphatase Collection Time: 06/12/20 10:58 AM Result Value Alkaline Phosphatase, S 114 AST (Aspartate Aminotransferase) Collection Time: 06/12/20 10:58 AM Result Value Aspartate Aminotransferase (AST), S 19 Bilirubin, Total Collection Time: 06/12/20 10:58 AM Result Value Bilirubin, Total, S 0.5 CBC with Differential, Blood Collection Time: 06/12/20 10:58 AM Result Value Hemoglobin 11.5 (L) Hematocrit 36.7 (L) Erythrocytes 3.92 (L) MCV 93.6 RBC Distrib Width 14.6 (H) Platelet Count 186 Leukocytes 50.8 (H) Neutrophils 8.54 (H) Lymphocytes 40.80 (H) Monocytes 1.20 (H) Eosinophils 0.19 Basophils 0.04 Creatinine with Estimated GFR Collection Time: 06/12/20 10:58 AM Result Value Creatinine, S 1.18 eGFR-Non Black 56 (L) eGFR-Black 65 LD (Lactate Dehydrogenase) Collection Time: 06/12/20 10:58 AM Result Value Lactate Dehydrogenase (LD), S 168 Reticulocytes Collection Time: 06/12/20 10:58 AM Result Value Reticulocytes, B 1.52 Absolute Reticulocyte 59.6 Iron and Total Iron-Binding Capacity Collection Time: 06/12/20 10:58 AM Result Value Iron 61 Total Iron Binding Capacity 268 Percent Saturation 23 Ferritin Collection Time: 06/12/20 10:58 AM Result Value Ferritin, S 157 Folate Collection Time: 06/12/20 10:58 AM Result Value Folate, S 9.1 ASSESSMENT / PLAN #1 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 There is no significant thrombocytopenia. He has no adenopathy or splenomegaly that is palpable. The only concern is that he is developing more anemia. This was noted in the summer and is slightly more so now. His ferritin, B12, and folic acid levels are unremarkable. I discussed with him that at this point given the fact he is having some early shortness of breath with exertion we should bring him back in about four months and repeat his labs. I discussed with him that if his hemoglobin gets into the 10.5 -11 range or lower and there is no sign of bleeding, vitamin deficiency etcetera then I believe he will need to undergo staging for his CLL which would include CT scan chest abdomen pelvis, bone marrow biopsy, etcetera. I discussed with him that if we see that this is CLL is causing his anemia or suspect that then he will require therapy. I discussed with him that I would favor a six months treatment with obinutuzumab. I traditionally in someone his age would look at a dose attenuation during the ???ramp up?? , but try to continue for six months as recommended. We would combine this with chlorambucil or any other agent. I did discuss with him that other treatments exist with targeted agents such as ibrutinib, acalabrutinib, and or venetoclax based regimens. However given his cardiac history and comorbidities I would favor the obinutuzumab approach with appropriate premedications. We talked over the potential for a infusion related side effect but that he would be premedicated. Finally we discussed with him that if he starts noticing increasing shortness of breath with exertion even before he returns and he should let us know and we would want to check a CBC and if it is continuing to fall we will need to consider starting the restaging sooner. #2 Anemia Plan as noted above Follow-up: Return to clinic in 4 months Education We discussed the diagnosis and treatment plan in detail. The patient expressed understanding of the content. No apparent learning barriers were identified; learning preferences include listening. I personally spent 31 minutes in care of the patient today. Time includes both non face to face and face to face patient care. Signed by: Renate Gordon M.D. 06/12/2020 3:39 PM ZONE SUPERVISOR FIREARMS SUPERVISOR FIREARMS documented in this encounter Plan of Treatment Scheduled Referrals Name Type Priority Associated Order Schedule Diagnoses Hematology office Outpatient Referral Routine Exp ected: visit (clinic) 10/10/2020 (Approximate), Expires: 06/12/2023 documented as of this encounter Results Direct Antiglobulin Test (Poly) [...] Organization Address City/State/ZIP Code Phon e Number [facility] - [address] [place], [place] [address] [facility] [place] [address] Laboratories-[facility] [address] Uric Acid (10/10/2020 10:55 AM CDT) P athologist Signature Uric Acid, S 5.9 3.7 - 8.0 10/10/2020 DTL mg/dL 11:57 AM CDT Specimen Anatomical Collection Method Collection Time Receive d Time (Source) Location / / Volume Laterality Blood (Blood, 10/10/2020 10:55 10/10/2020 Venous) AM CDT 11:15 AM CDT Meliton Gordon M.D. LAB BLOOD ADD-ON Performing Organization Address City/State/ZIP Code Phon e Number [facility] - [address] [place], [place] [address] [facility] [place] [place] [address] [facility] [address] [facility] (ABNORMAL) Comprehensive Metabolic Panel (10/10/2020 [...] 10/10/2020 DTL Black/ mL/min/BSA 11:48 AM CDT Kenyan Comment: ----ADDITIONAL INFORMATION---- Estimated GFR [...] M.D. LAB BLOOD ADD-ON Performing Organization Address City/[facility] Phon e Number [facility] - [address] Bilirubin, Direct (10/10/2020 10:55 AM CDT) P athologist Signature Bilirubin, <0.2 0.0 - 0.3 10/10/2020 DTL Direct, S mg/dL 11:57 AM CDT Specimen Anatomical Collection Method Collection Time Receive d Time (Source) Location / / Volume Laterality Blood (Blood, 10/10/2020 10:55 10/10/2020 Venous) AM CDT 11:15 AM CDT Meliton Gordon M.D. LAB BLOOD ADD-ON Performing Organization Address City/[facility] Phon e Number [facility] [address] [place], [place] [address] [place] [address] Reticulocytes (10/10/2020 10:55 AM CDT) P [...] M.D. LAB BLOOD ADD-ON Performing Organization Address City/[facility]/ZIP Code Phon e Number [facility] - [address] [place], [place] [address] [place] [address] Laboratories-[address] LD (Lactate Dehydrogenase) (10/10/2020 10:55 AM [...] LAB BLOOD NON ADD-ON Performing Organization Address City/[facility] Phon e Number [facility] - [address] [place], [place] [address] [facility] [place], [place] [id number] [place] [address] (ABNORMAL) CBC with Differential, Blood (10/10/2020 10:55 [...] Organization Address City/State/ZIP Code Phon e Number [facility] - [address] [place], [place] [address] [place] 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
--- OUTSIDE RECORDS SUMMARY | 2022-03-26 22:26 | XMS_ITS | Encounter Summary ---
:1935 Author Organization [facility] Address [address] [place] [address] Care Team Providers Name Role Phone Unavailable Primary Care Provider Unavailable Reason for Visit Reason Comments Immunizations Encounter Details Date Type Department Care Team Description 06/12/2020 Nurse Only Section of Preventive, Akua Esposito, Immunizations Transportation and WANDA C.N.Betty, M.S.N. Occupational Medicine in [place], [place] [address] [place] [address] Social History Tobacco Use Types Packs/Day [...] you attend voodoo or Patient refused 2021 confucianism services? 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
--- OUTSIDE RECORDS SUMMARY | 2022-03-26 22:26 | XMS_ITS | Encounter Summary ---
:1935 Author Organization [facility] Address [address] [place] [address] Care Team Providers Name Role Phone Unavailable Primary Care Provider Unavailable Encounter Details Date Type Department Care Team Description 12/14/2019 Hospital Encounter Department of Call, Avtar Reyes Laboratory Medicine MSimonDSimon Chronic Not Having and Pathology, Achieved [place], in ([facility] [place], [place] [address] [place] [address] Social History Tobacco Use Types Packs/Day Years [...] you attend episcopal or Patient refused 2021 religion services? Do you belong to any clubs [...] (VITAMIN C) 500 mg tablet mouth daily. omega-3 fatty acids/fish Take 1 capsule by 0 10/2016 oil (OMEGA 3 FISH OIL ORAL) mouth daily. silver sulfADIAZINE Apply 1 0 04/15/2019 (SILVADENE, SSD) 1 % cream application topically as needed. vitamin E 400 unit capsule Take 1 [...] Procedure Name Priority Date/Time Associated Comments Diagnosis [id number] 12MG V1396 Routine 12/14/2019 8:38 Leukemia Resu lts for this AM CDT Lymphocytic Chronic procedur e are in Not Having Achieved the resu lts Remission (HCC) section. SPSMA RESULT Routine 12/14/2019 8:38 Results for this AM CDT procedure are i n the results section. RETICULOCYTES, B Routine 12/14/2019 8:38 Leukemia Results for this AM CDT Lymphocytic Chronic procedur e are in Not Having Achieved the resu lts Remission (HCC) section. CBC WITH DIFFERENTIAL, B Routine 12/14/2019 8:38 Leukemia Results for this AM CDT Lymphocytic Chronic procedur e are in Not Having Achieved the resu lts Remission (HCC) section. ASPARTATE Routine 12/14/2019 8:38 Leukemia Results for this AMINOTRANSFERASE (AST), AM CDT Lymphocytic Chron ic procedure are in S/P Not Having Achieved the resu lts Remission (HCC) section. ALKALINE PHOSPHATASE, Routine 12/14/2019 8:38 Leukemia Res ults for this S/P AM CDT Lymphocytic Chronic procedur e are in Not Having Achieved the resu lts Remission (HCC) section. LACTATE DEHYDROGENASE Routine 12/14/2019 8:38 Leukemia Res ults for this (LD), S AM CDT Lymphocytic Chronic procedur e are in Not Having Achieved the resu lts Remission (HCC) section. CREATININE WITH EGFR, Routine 12/14/2019 8:38 Leukemia Res ults for this S/P AM CDT Lymphocytic Chronic procedur e are in Not Having Achieved the resu lts Remission (HCC) section. BILIRUBIN, TOT, S/P Routine 12/14/2019 8:38 Leukemia Resul ts for this AM CDT Lymphocytic Chronic procedur e are in Not Having Achieved the resu lts Remission (HCC) section. documented in this encounter Results (ABNORMAL) Morphology Evaluation (Special Smear) (12/14/2019 8:38 AM CDT) [facility] Method Time Signature Neutrophilic Segs 10 (L) 50 - 75 % 12/14/2019 DHPM and Bands 10:06 AM CDT Lymphocytes 89 (H) 18 - 42 % 12/14/2019 DHPM 10:06 AM CDT Monocytes 1 (L) 2 - 11 % 12/14/2019 DHPM 10:06 AM CDT Fragile Cells Moderate 12/14/2019 DHPM 10:06 AM CDT Manual Absolute 6.17 1.56 - 12/14/2019 DHPM Neutrophil Count 6.45 10:06 AM CDT x10(9)/L Comment: ----ADDITIONAL INFORMATION---- The manual absolute neutrophil count is derived from a manual differential count and therefore is not exactly comparable to the automated absolute celso trophil count. Interpretation SeeComment 12/14/2019 10:06 AM CDT DHPM Comment: The blood smear findings are consistent with the previous diagnosis of chronic lymphocytic leukemia. Reviewed by: Tech 12/14/2019 10:06 AM CDT [facility] Specimen Anatomical Collection Method Collection Time Receive d Time (Source) Location / / Volume Laterality Blood 12/14/2019 8:38 AM 0 9:06 CDT AM CDT Meliton Gordon M.D. LAB BLOOD ADD-ON Performing Organization Address City/State/ZIP Code Phon e Number [facility] - [address] [place] [address] [address] [place] [address] [facility] 200 [facility] [id number] 12MG V1396 (12/14/2019 8:38 AM CDT) Analysis Performed At [place] [address] Collected DEFAULT 12/14/2019 HSS A N 01 8:38 [place] [address] Collected DEFAULT 12/14/2019 HSS A N 02 8:38 [place] [address] Collected DEFAULT 12/14/2019 HSS A N 03 8:38 [place] [address] Collected DEFAULT 12/14/2019 HSS A N 04 8:38 [place] [address] Collected DEFAULT 12/14/2019 HSS A N 05 8:38 AM CDT [place] LE [address] Collected DEFAULT 12/14/2019 HSS A N 08 8:38 [place] [address] Collected DEFAULT 12/14/2019 HSS A N 04 8:38 AM CDT Specimen Anatomical Collection Method Collection Time Receive d Time (Source) Location / / Volume Laterality Blood (Blood, 12/14/2019 8:38 AM 12/14/19 20 8:38 Venous) CDT AM CDT Narrative [facility] - 12/14/2019 8:38 AM CDT Specimen Information: Specimen ID: [id number] Specimen Type: Blood Specimen Collection Start Date: 12/14/19 ??8:38 AM Specimen Received Date: 12/14/2019 ??8:3 8 AM Specimen ID: [id number] Specimen Type: Blood Specimen Collection Start Date: 12/14/19 ??8:38 AM Specimen Received Date: 12/14/2019 ??8:3 8 AM Specimen ID: [id number] Specimen Type: Blood Specimen Collection Start Date: 12/14/19 ??8:38 AM Specimen Received Date: 12/14/2019 ??8:3 8 AM Specimen ID: [id number] Specimen Type: Blood Specimen Collection Start Date: 12/14/19 ??8:38 AM Specimen Received Date: 12/14/2019 ??8:3 8 AM Specimen ID: [id number] Specimen Type: Blood Specimen Collection Start Date: 12/14/19 ??8:38 AM Specimen Received Date: 12/14/2019 ??8:3 8 AM Specimen ID: [id number] Specimen Type: Blood Specimen Collection Start Date: 12/14/19 ??8:38 AM Specimen Received Date: 12/14/2019 ??8:3 8 AM Specimen ID: [id number] Specimen Type: Blood Specimen Collection Start Date: 12/14/19 ??8:38 AM Specimen Received Date: 12/14/2019 ??8:3 8 AM Fidel Rose M.D. LAB BLOOD ADD-ON Performing Organization Address City/[facility] Phon e Number [facility] - [address] [place] [phone] [facility] 200 [facility] Reticulocytes (12/14/2019 8:38 AM CDT) P athologist Signature Reticulocytes, B 1.26 0.60 - 12/14/2019 DTL 2.71 % 9:16 AM CDT Absolute 51.3 30.4 - 12/14/2019 DTL Reticulocyte 110.9 9:16 AM CDT x10(9)/L Specimen Anatomical Collection Method Collection Time Receive d Time (Source) Location / / Volume Laterality Blood (Blood, 12/14/2019 8:38 AM 12/14/19 9:06 Venous) CDT AM CDT Meliton Gordon M.D. LAB BLOOD ADD-ON Performing Organization Address City/State/[facility] Phon e Number [facility] - [address] [phone] [facility] [address] [facility] LD (Lactate Dehydrogenase) (12/14/2019 8:38 AM CDT) [...] LAB BLOOD NON ADD-ON Performing Organization Address City/State/[facility] Code Phon e Number [facility] - [address] (ABNORMAL) Creatinine with Estimated GFR (12/14/2019 8:38 AM CDT) P athologist Signature Creatinine 1.27 0.74 - 12/14/2019 DTL 1.35 mg/dL 9:42 AM CDT eGFR-Non 52 (L) >=60 12/14/2019 DTL Black/ mL/min/BSA 9:42 AM CDT Mauritanian Comment: ----ADDITIONAL INFORMATION---- Estimated GFR calculated using [...] M.D. LAB BLOOD ADD-ON Performing Organization Address City/State/[facility] Code Phon e Number [facility] - [address] [place], [place] [address] [facility] [place], [place] [phone] [place] [address] (ABNORMAL) CBC with Differential, Blood (12/14/2019 8:38 AM CDT) Patholo gist Method [...] M.D. LAB BLOOD ADD-ON Performing Organization Address City/[facility]/ZIP Code Phon e Number [facility] - [address] [place], [place] [address] [facility] [place] [address] [facility] 200 [facility] Bilirubin, Total (12/14/2019 8:38 AM CDT) P athologist Signature Bilirubin, 0.3 <=1.2 mg/dL 12/14/2019 DTL Total, S 9:42 AM CDT Specimen Anatomical Collection Method Collection Time Receive d Time (Source) Location / / Volume Laterality Blood (Blood, 12/14/2019 8:38 AM 12/14/19 20 9:24 Venous) CDT AM CDT Meliton Gordon M.D. LAB BLOOD ADD-ON Performing Organization Address City/[facility]/ZIP Code Phon e Number [facility] - [address] [place], [place] [address] [place] [address] AST (Aspartate Aminotransferase) (12/14/2019 8:38 AM [...] Organization Address City/State/ZIP Code Phon e Number [facility] - [address] [address] [facility]-[address] Alkaline Phosphatase (12/14/2019 8:38 AM CDT) [...] Organization Address City/State/ZIP Code Phon e Number [facility] - [address] documented in this encounter Visit Diagnoses Diagnosis 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
--- OUTSIDE RECORDS SUMMARY | 2022-03-26 22:26 | XMS_ITS | Encounter Summary ---
:1935 Author Organization [facility] Address [address] [place] [address] Care Team Providers Name Role Phone Unavailable Primary Care Provider Unavailable Encounter Details Date Type Department Care Team Description 06/13/2020 Orders Only Section of Preventive, Reji Garza, R.N. Transportation and [address] [place] [address] Occupational Medicine in [place], [place] [address] [place] [address] [place] [address] Social History Tobacco Use Types Packs/Day [...] you attend jainism or Patient refused 2021 buddhism services? Do you belong to any clubs or No 12/31/2021 organizations such as jainism groups, unions, fraternal or athletic groups, or [...]
--- OUTSIDE RECORDS SUMMARY | 2022-03-26 22:26 | XMS_ITS | Encounter Summary ---
:1935 Author Organization [facility] Address [address] [place] [address] Care Team Providers Name Role Phone Unavailable Primary Care Provider Unavailable Reason for Referral Outpatient (Routine) - Closed Specialty Diagnoses / Procedures Referred By Contact Refer red To Contact Diagnoses Dyspnea On Exertion Failure Heart (HCC) Ashwini Patel, [facility] Procedures Echo Transthoracic (TTE) WANDA C.N.P., D.N.P. [address] [place] [address] Referral ID Status Reason Start Date Expiration Date Visits Requ ested Visits Authorized [id number] Closed 11/22/2020 11/22/2021 1 1 utpatient (Routine) - Closed Specialty Diagnoses / Procedures Referred By Contact Refer red To Contact Diagnoses Dyspnea On Exertion Failure Heart (HCC) Ashwini Patel APRN [facility] Procedures ECG 12 Lead C.N.P., D.N.P. 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 Do you belong to any clubs [...] documented as of this encounter Miscellaneous Notes Addendum Note - Ki Wiley R.N. - 11/22/2020 9:19 AM CDT Addended by: KI WILEY on: 11/22/2020 09:19 AM Modules accepted: Orders Telephone Encounter - Ki Wiley R.N. - 11/21/2020 9:22 AM CDT Pre-appointment cardiology triage/record review. Information collected has not been verified by the patient. Appointment triage team does not establish a relationship with the patient. For any questions, please contact patient's primary provider. Referring Department: Heme Clinical Question: Order: dyspnea, edema, evaluate for heart failure I do hear some fine rales in the lower 1/3 of his lung davison and he has significant edema. ??I suspect he may have a bit of partially compensated heart failure. Cardiac History: CAD Pertinent Medical/Surgical History: CLL, B-cell DM2 HLD HTN Tobacco hx Testing/Consultations: Labs: 10/10/20 HgB 12.0, Pl 45, Cr 1.23 OSMR: Care Everywhere documented in this encounter Plan of Treatment Not on filedocumented as of this encounter Results (TTE) 2D ECHO DOPPLER COLOR (12/17/2020 3:17 PM CDT) [facility] Method Time Signature Ejection Fraction 55 MC [...] effusion. For the complete report, see the One [employer] Documents. Narrative 12/17/2020 3:37 PM CDT For the complete report, see the One [employer] Documents. Final Impressions 1. Borderline enlarged left [...] 12/17/2020 For the complete report, see the Order-L evel Documents. Final Impressions 1. Borderline enlarged left [...] complete report, see the Order-L evel Documents. Ashwini Patel APRN, C.N.P., D.N.P. CV ECHO PROCED URES DX Chest AP or PA and Lateral [...] APRN, C.N.P., D.N.P. IMG DIAGNOSTIC IMAGING PROCEDURES ECG 12 Lead (12/17/2020 9:46 AM CDT) P athologist Signature Ventricular Rate 70 BPM MUSE ECG/Min OK Interval 204 ms MUSE QRSD Interval 108 ms MUSE QT Interval 424 ms MUSE QTC Interval 457 ms MUSE P [place] 40 degrees MUSE R [place] -41 degrees MUSE T Wave [place] 20 degrees MUSE Specimen Anatomical Collection Method Collection Time Receive d Time (Source) Location / / Volume Laterality 12/17/2020 9:46 AM 9:55 CDT AM CDT Impressions MUSE - 12/17/2020 9:55 AM CDT Normal sinus rhythm with 1st degree A-V block Left axis deviation Minimal voltage criteria for LVH, may be normal variant When compared with ECG of 19-DEC-2014 10 :22, No significant change was found Reviewed by KIA Ernst Narrative This result has an attachment that is no t available. Procedure Note Leandro Gomez M.D. - 12/17/2020Formatt ing of this note might be different from the original. IMPRESSION: Normal sinus rhythm with 1st degree A-V block Left axis deviation Minimal voltage criteria for LVH, may be normal variant When compared with ECG of 19-DEC-2014 10 :22, No significant change was found Reviewed by KIA Ernst Ashwini Patel APRN, C.N.P., D.N.P. ECG ORDERABLES Performing Organization Address City/State/ZIP Code Phon e Number MUSE MUSE NA (ABNORMAL) NT-Pro B-Type Natriuretic Peptide (BNP) (12/17/2020 [...] Organization Address City/State/ZIP Code Phon e Number [facility] - [address] [place], [place] [address] [facility] [place] [address] Laboratories-[facility] [address] (ABNORMAL) Comprehensive Metabolic Panel (12/17/2020 9:21 AM [...] 12/17/2020 DTL Black/ mL/min/BSA 12:37 PM CDT Singaporean Comment: ----ADDITIONAL INFORMATION---- Estimated GFR calculated using [...] AM 12/18/19 9:47 Venous) CDT AM CDT Ifeoma Dominguez APRNNSimonP., D.N.P. LAB BLOOD ADD- ON Performing Organization Address City/[facility] Code Phon e Number [facility] - [address] [place] [address] [facility] 200 [facility] (ABNORMAL) CBC with Differential, Blood (12/17/2020 9:21 AM CDT) [facility] Method Time Signature Hemoglobin 11.8 (L) 13.2 [...] Venous) CDT AM CDT Ashwini Patel APRN, Alekasndr.N.P., D.N.P. LAB BLOOD ADD- ON Performing Organization Address City/State/ZIP Code Phon e Number [facility] - [address] [place] [address] [facility] [address] documented in this encounter Visit Diagnoses Diagnosis Dyspnea On Exertion - Primary Failure Heart (HCC) Dyspnea On Exertion Failure Heart (HCC) Dyspnea On Exertion Failure Heart (HCC) documented in this encounter
--- OUTSIDE RECORDS SUMMARY | 2022-03-26 22:26 | XMS_ITS | Encounter Summary ---
:1935 Author Organization [facility] Address [address] [place] [address] Care Team Providers Name Role Phone Unavailable Primary Care Provider Unavailable Reason for Visit Reason Comments Other intake Encounter Details Date Type Department Care Team Description 10/09/2020 Clinical Communication Division of Call, Momo Reyes (intake) Hematology in [place], [place] [address] [place] [address] Social History Tobacco Use Types Packs/Day Years [...] or relatives? How often do you attend pentecostal or Patient refused 2021 advent services? Do you belong to any clubs or No 12/31/2021 organizations such as pentecostal groups, unions, fraternal or athletic groups, or [...]
--- OUTSIDE RECORDS SUMMARY | 2022-03-26 22:26 | XMS_ITS | Encounter Summary ---
:1935 Author Organization [facility] Address [address] [place] [address] Care Team Providers Name Role Phone Unavailable Primary Care Provider Unavailable Encounter Details Date Type Department Care Team Description 06/12/2020 Clinical Communication Division of Call, Meliton Mcleod Hematology in .. [place], [place] [address] [place] [address] Social History Tobacco Use Types Packs/Day Years [...] you attend mormon or Patient refused 2021 methodist services? Do you belong to any clubs or No 12/31/2021 organizations such as mormon groups, unions, fraternal or athletic groups, or [...]
--- OUTSIDE RECORDS SUMMARY | 2022-03-26 22:27 | XMS_ITS | Encounter Summary ---
:1935 Author Organization [facility] Address [address] [place] [address] Care Team Providers Name Role Phone Unavailable Primary Care Provider Unavailable Encounter Details Date Type Department Care Team Description 11/23/2018 Orders Only Division of Hematology Judit Vital Leukemia Lymphocytic in [place] [address] [address] [facility] Chronic Not Having [place], [place] Achieved Remission [address] [place] [phone] (HCC) (Primary Dx) [place], [place] [phone] [address] (Work) [phone] Social History Tobacco Use Types Packs/Day Years [...] you attend advent or Patient refused 2021 alevism services? Do [...] on filedocumented as of this encounter Results [id number] 12MG V1396 (12/07/2018 10:58 AM CDT) Analysis Performed At [place]o [place] [address] Collected DEFAULT 12/07/2018 A N 01 12:[place] [address] Collected DEFAULT 12/07/2018 A N 01 12:10 [place] [address] Collected DEFAULT 12/07/2018 A N 02 12:11 [place] [address] Collected DEFAULT 12/07/2018 A N 03 12:11 [place] [address] Collected DEFAULT 12/07/2018 A N 04 12:10 [place] [address] Collected DEFAULT 12/07/2018 A N 05 12:[place] [address] Collected DEFAULT 12/07/2018 A N 01 12:10 PM CDT Specimen Anatomical Collection Method Collection Time Receive d Time (Source) Location / / Volume Laterality Blood (Blood, 12/07/2018 10:58 12/07/2018 Venous) AM CDT 12:11 PM CDT Narrative [facility] - 12/07/2018 12:34 PM CDT Specimen Information: Specimen ID: [id number] Specimen Type: Blood Specimen Collection Start Date: 12/08/19 10:58 AM Specimen Received Date: 12/07/2018 12:11 PM Specimen ID: [id number] Specimen Type: Blood Specimen Collection Start Date: 12/08/19 10:58 AM Specimen Received Date: 12/07/2018 12:10 PM Specimen ID: [id number] Specimen Type: Blood Specimen Collection Start Date: 12/08/19 10:58 AM Specimen Received Date: 12/07/2018 12:11 PM Specimen ID: [id number] Specimen Type: Blood Specimen Collection Start Date: 12/08/19 10:58 AM Specimen Received Date: 12/07/2018 12:11 PM Specimen ID: [id number] Specimen Type: Blood Specimen Collection Start Date: 12/08/19 10:58 AM Specimen Received Date: 12/07/2018 12:10 PM Specimen ID: [id number] Specimen Type: Blood Specimen Collection Start Date: 12/08/19 10:58 AM Specimen Received Date: 12/07/2018 12:10 PM Specimen ID: [id number] Specimen Type: Blood Specimen Collection Start Date: 12/08/19 10:58 AM Specimen Received Date: 12/07/2018 12:10 PM Fidel Rose M.D. LAB BLOOD ADD-ON Performing Organization Address City/State/ZIP Code Phon e Number [facility] - [address] [place] [address] 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
--- OUTSIDE RECORDS SUMMARY | 2022-03-26 22:27 | XMS_ITS | Encounter Summary ---
:1935 Author Organization [facility] Address [address] [place] [address] Care Team Providers Name Role Phone Unavailable Primary Care Provider Unavailable Encounter Details Date Type Department Care Team Description 03/13/2005 - Hospital Encounter HX RST C&RS FLOOR Meli Lloyd, 03/20/2005 PRACTICE M.DSimon Social History Tobacco Use Types Packs/Day Years Used Date Smoking Tobacco: Never Assessed Alcohol Habits Answer Date Recorded How often [...] attend roman catholic or Patient refused 2021 synagogue services? Do you belong to any clubs [...]
--- OUTSIDE RECORDS SUMMARY | 2022-03-26 22:27 | XMS_ITS | Encounter Summary ---
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 [facility] [address] [place] [address] Referral ID Status Reason Start Date Expiration Date Visits Requ ested Visits Authorized [id number] Closed 12/09/2017 12/09/2018 1 1 Encounter Details Date Type Department Care Team Description 12/07/2018 Comprehensive Visit Department of [place] Dermati tis Seborrheic (Primary Dx); Dermatology in [facility], Leukemia Lymp hocytic Chronic Not Having Achieved Remission (HCC); Gail Silveira M.D. Keratosis Seborrheic; [place] [address] [facility] [place]; [address] [place], [place] Angioma Nelson; [place] [address] Nevi Multiple [phone] Social History Tobacco Use Types Packs/Day Years [...] you attend taoism or Patient refused 2021 latter-day services? Do you belong to any clubs [...] documented as of this encounter Consult Notes Gail Gonzalez M.D. - 12/07/2018 3:00 PM CDT PATIENT DEMOGRAPHICS Clinic Number: [id number] Patient Name: Mr.. Kristoefr Garcia Age: 83 y.o. Sex: male Birthdate: 1935 Service: DERM REFERRED BY Meliton Gordon M.D. [address] [place] [phone] Patient seen and discussed with supervising technology applications consultant, Mariel Dietz MD [phone]), who evaluated the patient and concurs with the assessment and plan. CORRESPONDENCE TO : Dr. Gail Myers MD CHIEF COMPLAINT History of CLL HISTORY OF PRESENT ILLNESS Mr. Kristofer Garcia is a 83 y.o. male with history of chronic lymphocytic leukemia, currently under observation presents today for full skin examination. Patient was last seen in the Dermatology Clinic in November 2017. No concerning features for skin cancer was noted at that time. Patient deniesany specific skin concerns today. He uses wide brim hat and long-sleeved shirts for sun protection while outside. He is trying to wear sunscreen more consistently. PAST MEDICAL HISTORY No personal history of skin cancer FAMILY HISTORY No family history of skin cancer OBJECTIVE PHYSICAL EXAM General: Alert, in no acute distress. Eyes: No conjunctival congestion or scleral icterus noted Respiratory system: Breathing normally in room air Skin: Examination of the scalp, face, neck, chest, abdomen, back, upper and lower extremities including digits and toes was performed today. Scattered on the trunk and extremities are several brown to dark brown pigmented macules and skin colored papules of varying size, uniform color and pigmentation. Several of these were examined under the dermoscopy revealing benign morphology. Waxy keratotic plaques morphology consistent with seborrheic keratosis seen scattered on the trunk and extremities. Solar lentigo and nelson angioma seen scattered on the trunk and extremity. Located on the left medial upper thigh is a pigmented papule of size approximately 5 mm with terminal hairs on the surface. Benign pigment network noted on dermoscopy examination. ASSESSMENT AND PLAN #1 History of chronic lymphocytic leukemia #2 Dermatoheliosis Sun protection and sun avoidance were reviewed with the patient. Educational materials were providedregarding skin self-examination, the warning signs and symptoms of skin cancer, and the proper use of sunscreens. I would recommend a full skin cancer screening examination with an appropriately trained clinician annually. #3 Multiple nevi The ABCDE criteria for melanoma was reviewed with the patient. None of the patient's nevi reach the clinical threshold for biopsy. I recommend continued sun protection, self-skin examinations, and observation. Should any of the patient's nevi change in size, color, texture, or shape or develop symptoms such as itching or bleeding, I recommend an immediate return visit for reassessment. #4 Seborrheic keratosis #5 Solar lentigines #6 Nelson angioma The benign nature of the skin lesion(s) was discussed with the patient. No treatment is required at this time. I recommend continued observation. Should symptoms or changes develop related to this condition, I would recommend a return visit for reassessment. Patient education Ready to learn, no apparent learning barriers were identified; learning preferences include listening. Explained diagnosis and treatment plan; patient/guardian of patient expressed understanding of thecontent. Associated attestation - Mariel Dietz M.D. - 12/07/2018 3:02 PM CDT I saw and evaluated the patient, participating in the bruno portions of the service. I reviewed the resident???s note. I agree with the resident???s findings and plan. Mariel Dietz M.D. 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
--- OUTSIDE RECORDS SUMMARY | 2022-03-26 22:27 | XMS_ITS | Encounter Summary ---
:1935 Author Organization [facility] Address [address] [place] [address] Care Team Providers Name Role Phone Unavailable Primary Care Provider Unavailable Reason for Visit Reason Onset Date Comments Results 12/09/2018 Encounter Details Date Type Department Care Team Description 12/09/2018 Clinical Communication Division of Hematology Marbella Carmona Results in [facility] [address] [facility] [address] [place] [phone] Social History Tobacco Use Types Packs/Day Years [...] you attend latter-day or Patient refused 2021 tenriism services? Do you belong to any clubs [...] this encounter Miscellaneous Notes Telephone Encounter - Marbella Carmona R.N. - 12/09/2018 9:59 AM CDT Nicki Ortiz PA-C reviewed patient's test results from 12/07/2018. Nicki Ortiz PA-C noted the following : Can you please give him a call to let him know ferritin and B12 came back within normal limits and we can continue to monitor his hemoglobin? It is mildly low but stable for a number of years. I contacted patient. Results and recommendations given as above. PLAN Patient will remain on observation with return visit with provider in November of next week. Disposition/Recommendation: self-care appropriate at this time . Education: patient/caller able to teach back Caller agreeable to plan of care: yes The following references were used: provider Nicki Ortiz PA-C. documented in this encounter Plan of Treatment Not on filedocumented as of this encounter Visit Diagnoses Not on filedocumented in this encounter
--- OUTSIDE RECORDS SUMMARY | 2022-03-26 22:27 | XMS_ITS | Encounter Summary ---
:1935 Author Organization [facility] Address [address] [place] [address] Care Team Providers Name Role Phone Unavailable Primary Care Provider Unavailable Encounter Details Date Type Department Care Team Description 01/30/2015 Hospital Encounter HX NO MAPPING Social History Tobacco Use Types Packs/Day Years [...] or relatives? How often do you attend alevism or Patient refused 2021 evangelical services? Do you belong to any clubs or No 12/31/2021 organizations such as alevism groups, unions, fraternal or athletic groups, or [...] capsule by 0 10/01/2011 capsule mouth daily. aspirin (ADULT LOW DOSE Take 1 tablet by 0 200810/10/2020 ASPIRIN) [address] tablet mouth daily. indomethacin (INDOCIN) Take 1 capsule by 0 201412/14/2019 50 mg capsule mouth 3 (three) times a day as needed. lisinopril Take 1 tablet by 0 09/30/2012 12/14/19 20 (PRINIVIL,ZESTRIL) 20 mg mouth daily. tablet nitroglycerin Place 1 tablet under 0 01/30/2015 0 10/10/2020 (NITROSTAT) 0.4 mg SL the tongue as needed. tablet Place 1 tab under the tongue at first sign of chest pain. If no relief in 5 min, call 911. Repeat dose every 5 min up to 2 additional doses if chest pain continues. omeprazole (PriLOSEC) 20 Take 1 capsule by 0 05/201401/10/2021 mg capsule mouth 2 (two) times a day. documented as of this encounter Plan of Treatment Not on filedocumented as of this encounter Visit Diagnoses Not on filedocumented in this encounter
--- OUTSIDE RECORDS SUMMARY | 2022-03-26 22:27 | XMS_ITS | Encounter Summary ---
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 [facility] Referral ID Status Reason Start Date Expiration Date Visits V isits Requested Authorized [id number] Closed Specialty 09/04/2017 03/03/2018 1 1 Services Required Encounter Details Date Type Department Care Team Description 12/09/2017 Comprehensive Visit Department of Analia Castelanos is Seborrheic (Primary Dx); Dermatology in [place], Chronic Lymph ocytic Leukemia Of B Cell Type Not Having Achieved Remission (HCC); Maddie Silveira Purpura Senile ([facility]); [place] [facility] [address] [place] [address] Social History Tobacco Use Types Packs/Day Years [...] you attend zoroastrian or Patient refused 2021 episcopal services? Do you belong to any clubs [...] documented as of this encounter Consult Notes Agata Castelan M.D. - 12/09/2017 1:40 PM CDT Referral Meliton Gordon M.D. Chief Complaint Supervised by: Dr. Medel. Patient seen and discussed with supervising farm consultant, Dr. Medel, who evaluated the patient and concurs with the assessment and plan. Correspondence to Dr. Castelan. Skin cancer screening examination HISTORY OF THE PRESENT ILLNESS Kristofer Garcia is a pleasant 82 y.o. male who is seen in consultation for skin cancer screening examination. He has no personal history of skin cancer. He has history of chronic lymphocytic leukemia not undergoing treatment. 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 Heis concerned about bruising on his arms. He is also concerned about a new lesion on his right islam. Otherwise Denies any new, changing, bleeding, or ulcerated lesions. PHYSICAL EXAM General: Awake, alert, in no acute distress, and with appropriate affect. Skin: Full skin examination of the head, neck, chest, abdomen, back, upper extremities, and lower extremities was performed per patient's request. Evidence of dermatoheliosis on the posterior forearms.There are multiple ecchymoses present. On the right islam is a waxy papule. IMPRESSION AND PLAN #1 Chronic lymphocytic leukemia, [place] 0 #2 Dermatoheliosis Sun protection and sun avoidance were reviewed with the patient. Educational materials were providedregarding skin self-examination, the warning signs and symptoms of skin cancer, and the proper use of sunscreens. I would recommend a full skin cancer screening examination with an appropriately trained clinician every year. #3 Seborrheic keratosis The benign nature of the skin lesion(s) was discussed with the patient. No treatment is required. I recommend continued observation. Should symptoms or changes develop related to this condition, I would recommend a return visit for reassessment. #4 Senile purpura We explained to the patient that this is a result of years of chronic sun damage as well as natural thinning of the skin and trauma to the arms. I recommended long sleeves. He wanted all [id number] topical so we recommended Dermend. PATIENT EDUCATION Ready to learn. No apparent learning barriers were identified. Learning preferences include listening. Explained diagnosis and treatment plan; patient/guardian of patient expressed understanding of thecontent. Associated attestation - Lisa Medel M.D. - 12/09/2017 2:37 PM CDT I saw and evaluated the patient, participating in the bruno portions of the service. I reviewed the resident/fellow???s note. I agree with the resident/fellow???s findings and plan. documented in this encounter Plan of Treatment Not on filedocumented as of this encounter Visit Diagnoses Diagnosis Keratosis Seborrheic - Primary Chronic Lymphocytic Leukemia Of B Cell T ype Not Having Achieved Remission (HCC) Purpura Senile (HCC) Dermatoheliosis documented in this encounter
--- OUTSIDE RECORDS SUMMARY | 2022-03-26 22:27 | XMS_ITS | Encounter Summary ---
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 Do [...] (OMEGA 3 FISH OIL ORAL) mouth daily. vitamin E 400 unit capsule Take 1 capsule by 0 mouth daily. aspirin (ADULT LOW DOSE Take 1 tablet by 0 200810/10/2020 ASPIRIN) [address] tablet mouth daily. atenolol (TENORMIN) 25 mg Take 1 tablet by 0 07/0 10/201610/10/2020 tablet mouth 2 (two) times a day. atorvastatin (LIPITOR) 40 Take 0.5 tablets 0 07/0 10/201601/10/2021 mg tablet by mouth daily. hydroCHLOROthiazide Take 1 tablet by 0 11/20/2016 10/10/2020 (HYDRODIURIL) 25 mg tablet mouth daily. indomethacin (INDOCIN) 50 Take 1 capsule by 0 05/201412/14/2019 mg capsule mouth 3 (three) times a day as needed. lisinopril Take 1 tablet by 0 09/30/2012 12/14/19 20 (PRINIVIL,ZESTRIL) 20 mg mouth daily. tablet metFORMIN (GLUCOPHAGE) 500 Take 1 tablet by 0 10/201612/14/2019 mg tablet mouth daily. nitroglycerin (NITROSTAT) Place [...] Procedure Name Priority Date/Time Associated Comments Diagnosis [id number] 12MG V1396 Routine 12/09/2017 11:28 Chronic Lymphocy tic Results for this AM CDT Leukemia Of B Cell procedure are in Type Not Having the results Achieved Remission section. (HCC) SPSMA RESULT Routine 12/09/2017 11:28 Results for this AM CDT procedure are i n the results section. RETICULOCYTES, B Routine 12/09/2017 11:28 Chronic Lymphocytic Results for this AM CDT Leukemia Of B Cell procedure are in Type Not Having the results Achieved Remission section. (HCC) CBC WITH DIFFERENTIAL, B Routine 12/09/2017 11:28 Chronic Lymp hocytic Results for this AM CDT Leukemia Of B Cell procedure are in Type Not Having the results Achieved Remission section. (HCC) ASPARTATE Routine 12/09/2017 11:28 Chronic Lymphocytic Resu lts for this AMINOTRANSFERASE (AST), AM CDT Leukemia Of B Iris l procedure are in S/P Type Not Having the results Achieved Remission section. (HCC) ALKALINE PHOSPHATASE, Routine 12/09/2017 11:28 Chronic Lymphoc ytic Results for this S/P AM CDT Leukemia Of B Cell procedure are in Type Not Having the results Achieved Remission section. (HCC) LACTATE DEHYDROGENASE Routine 12/09/2017 11:28 Chronic Lymphoc ytic Results for this (LD), S AM CDT Leukemia Of B Cell procedure are in Type Not Having the results Achieved Remission section. ([facility]) CREATININE WITH EGFR, Routine 12/09/2017 11:28 Chronic Lymphoc ytic Results for this S/P AM CDT Leukemia Of B Cell procedure are in Type Not Having the results Achieved Remission section. (HCC) BILIRUBIN, TOT, S/P Routine 12/09/2017 11:28 Chronic Lymphocyt ic Results for this AM CDT Leukemia Of B Cell procedure are in Type Not Having the results Achieved Remission section. (HCC) documented in this encounter Results (ABNORMAL) Morphology Evaluation (Special Smear) (12/09/2017 11:28 AM CDT) [facility] Method Time Signature Neutrophilic 14 (L) 50 - 75 % 12/09/2017 [facility] Segs and Bands 12:40 PM CDT LAB[facility]ATOR[facility] - [facility] Lymphocytes 85 (H) 18 - 42 % 12/09/2017 [facility] 12:40 PM CDT [facility] - [facility] Eosinophils 1 1 - 3 % 12/09/2017 [facility] 12:40 PM CDT [facility] - [facility] Fragile Cells Marked 12/09/2017 [facility] 12:40 PM CDT [facility] - [facility] Manual Absolute 5.47 1.56 - 12/09/2017 [facility] Neutrophil Count 6.45 12:40 PM CDT LABORATORI ES - x10(9)/L [facility] Comment: ----ADDITIONAL INFORMATION---- The manual absolute neutrophil count is derived from a manual differential count and therefore is not exactly comparable to the automated absolute celso trophil count. Interpretation SeeComment 12/09/2017 12:40 PM CDT [facility] M Ibarra Comment: The blood smear findings are consistent with the previous diagnosis of chronic lymphocytic leukemia. Reviewed by: Tech 12/09/2017 12:40 PM CDT [facility] Specimen Anatomical Collection Method Collection Time Receive d Time (Source) Location / / Volume Laterality Blood 12/09/2017 11:28 12/09/2017 AM CDT 11:48 AM CDT Meliton Gordon M.D. LAB BLOOD ADD-ON Performing Organization Address City/State/ZIP Code Phon e Number [facility] - [address] [place], [place] [address] [facility] [id number] 12MG [id number] (12/09/2017 11:28 AM CDT) [facility] Method Time Signature STUDY LE Collected 12/09/2017 [facility] [id number] A N 01 12:17 PM CDT [facility] STUDY HS Collected 12/09/2017 [facility] [id number] A N 01 12:17 PM CDT [facility] STUDY HS Collected 12/09/2017 [facility] 16514 A N 02 12:17 PM CDT [facility] STUDY HS Collected 12/09/2017 [facility] 22305 A N 03 12:17 PM CDT [facility] STUDY HS Collected 12/09/2017 [facility] 56414 A N 04 12:17 PM CDT [facility] STUDY HS Collected 12/09/2017 [facility] 27719 A N 05 12:17 PM CDT [facility] STUDY RS Collected 12/09/2017 [facility] 53299 A N 01 12:17 PM CDT [facility] Specimen Anatomical Collection Method Collection Time Receive d Time (Source) Location / / Volume Laterality Blood (Blood, 12/09/2017 11:28 12/09/2017 Venous) AM CDT 12:17 PM CDT Narrative [facility] - 12/09/2017 12:18 PM CDT Specimen Information: Specimen ID: [id number] Specimen Type: Blood Specimen Collection Start Date: 12/10/19 18 11:28 AM Specimen Received Date: 12/09/2017 12:17 PM Specimen ID: [id number] Specimen Type: Blood Specimen Collection Start Date: 12/10/19 18 11:28 AM Specimen Received Date: 12/09/2017 12:17 PM Specimen ID: [id number] Specimen Type: Blood Specimen Collection Start Date: 12/10/19 18 11:28 AM Specimen Received Date: 12/09/2017 12:17 PM Specimen ID: [id number] Specimen Type: Blood Specimen Collection Start Date: 12/10/19 18 11:28 AM Specimen Received Date: 12/09/2017 12:17 PM Specimen ID: [id number] Specimen Type: Blood Specimen Collection Start Date: 12/10/19 18 11:28 AM Specimen Received Date: 12/09/2017 12:17 PM Specimen ID: [id number] Specimen Type: Blood Specimen Collection Start Date: 12/10/19 18 11:28 AM Specimen Received Date: 12/09/2017 12:17 PM Specimen ID: [id number] Specimen Type: Blood Specimen Collection Start Date: 12/10/19 18 11:28 AM Specimen Received Date: 12/09/2017 12:17 PM Fidel Rose M.D. LAB BLOOD ADD-ON Performing Organization Address City/[facility] Code Phon e Number [facility] - [address] LD (Lactate Dehydrogenase) (12/09/2017 11:28 AM CDT) [facility] Method Time Signature Lactate 158 122 - 222 12/09/2017 [facility] Dehydrogenase U/L 12:34 PM CDT LABORATORIES - (LD), S [facility] Specimen Anatomical Collection Method Collection Time Receive d Time (Source) Location / / Volume Laterality Blood 12/09/2017 11:28 12/09/2017 AM CDT 11:48 AM CDT Meliton Gordon M.D. LAB BLOOD NON ADD-ON Performing Organization Address City/[facility] Phon e Number [facility] - [address] [place] [phone] [facility] Reticulocytes (12/09/2017 11:28 AM CDT) [facility] [employer] Method Time Signature Reticulocytes, B 1.60 0.60 - 12/09/2017 [facility] 2.71 % 11:55 AM CDT [facility] - [facility] Absolute 69.6 30.4 - 12/09/2017 [facility] Reticulocyte 110.9 11:55 AM CDT LABORATORIES - x10(9)/L [facility] Specimen Anatomical Collection Method Collection Time Receive d Time (Source) Location / / Volume Laterality Blood 12/09/2017 11:28 12/09/2017 AM CDT 11:48 AM CDT Meliton Gordon M.D. LAB BLOOD ADD-ON Performing Organization Address City/State/ZIP Code Phon e Number [facility] - [address] [place], [place] [address] [facility] (ABNORMAL) CBC with Differential (12/09/2017 11:28 AM CDT) [facility] Method Time Signature Hemoglobin 12.8 (L) 13.2 - 12/09/2017 [facility] 16.6 g/dL 11:56 AM LABORATORIES - CDT [facility] Hematocrit 38.7 38.3 - 12/09/2017 [facility] 48.6 % 11:56 AM LABORATORIES - T [facility] Erythrocytes 4.32 (L) 4.35 - 12/09/2017 [facility] 5.65 11:56 AM LABORATORIES - x10(12)/L T [facility] MCV 89.6 78.2 - 12/09/2017 [facility] 97.9 fL 11:56 AM LABORATORIES - T [facility] RBC Distrib 13.8 11.8 - 12/09/2017 [facility] Width 14.5 % 11:56 AM LABORATORIES - T [facility] Platelet Count 169 135 - 317 12/09/2017 [facility] x10(9)/L 11:56 AM LABORATORIES - T [facility] Leukocytes 39.1 (H) 3.4 - 9.6 12/09/2017 [facility] x10(9)/L 12:39 PM LABORATORIES - T [facility] Neutrophils SeeComment 1.56 - 12/09/2017 [facility] 6.45 12:39 PM LABORATORIES - x10(9)/L T [facility] Comment: Auto-diff results not valid. Se e manual differential. Specimen Anatomical Collection Method Collection Time Receive d Time (Source) Location / / Volume Laterality Blood 12/09/2017 11:28 12/09/2017 AM CDT 11:48 AM CDT Meliton Gordon M.D. LAB BLOOD ADD-ON Performing Organization Address City/State/ZIP Code Phon e Number [facility] - [address] [place] [phone] [facility] AST (Aspartate Aminotransferase) (12/09/2017 11:28 AM CDT) Patholo gist Method Time Signature Aspartate 22 8 - 48 12/09/2017 [facility] Aminotransferase U/L 12:34 PM LABORATORIES - (AST), S CDT [facility] Specimen Anatomical Collection Method Collection Time Receive d Time (Source) Location / / Volume Laterality Blood 12/09/2017 11:28 12/09/2017 AM CDT 11:48 AM CDT Meliton Gordon M.D. LAB BLOOD ADD-ON Performing Organization Address City/[facility]/ZIP Code Phon e Number [facility] - [address] [place] [address] [facility] Alkaline Phosphatase (12/09/2017 11:28 AM CDT) P athologist Signature Alkaline 85 45 - 115 12/09/2017 [facility] Phosphatase, S U/L 12:34 PM CDT [facility] - [facility] Specimen Anatomical Collection Method Collection Time Receive d Time (Source) Location / / Volume Laterality Blood 12/09/2017 11:28 12/09/2017 AM CDT 11:48 AM CDT Meliton Gordon M.D. LAB BLOOD ADD-ON Performing Organization Address City/[facility]/ZIP Code Phon e Number [facility] - [address] [place] [phone] [facility] Creatinine with Estimated GFR (MDRD) (12/09/2017 11:28 AM CDT) Analysis Performed At Patho logist Time Signature Creatinine 1.08 0.74 - 12/09/2017 [facility] 1.35 mg/dL 12:34 PM CDT [facility] - [facility] eGFR-Non 64 >=60 12/09/2017 [facility] Black/ mL/min/BSA 12:34 PM CDT LABORATOR[facility] - [facility] Comment: ----ADDITIONAL INFORMATION---- Estimated GFR calculated using the 2009 CKD_EPI creatinine equation. eGFR-Black/ 74 >=60 mL/min/BSA 12/09/2017 12:3 4 [facility] Uzbek PM CDT [facility] - [facility] Comment: ----ADDITIONAL INFORMATION---- Estimated GFR calculated using the 2009 CKD_EPI creatinine equation. Specimen Anatomical Collection Method Collection Time Receive d Time (Source) Location / / Volume Laterality Blood 12/09/2017 11:28 12/09/2017 AM CDT 11:48 AM CDT Meliton Gordon M.D. LAB BLOOD ADD-ON Performing Organization Address City/State/ZIP Code Phon e Number [facility] - [address] Bilirubin, Total (12/09/2017 11:28 AM CDT) athologist Signature Bilirubin, 0.7 <=1.2 12/09/2017 [facility] Total, S mg/dL 12:34 PM CDT [facility] - [facility] Specimen Anatomical Collection Method Collection Time Receive d Time (Source) Location / / Volume Laterality Blood 12/09/2017 11:28 12/09/2017 AM CDT 11:48 AM CDT Meliton Gordon M.D. 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
--- OUTSIDE RECORDS SUMMARY | 2022-03-26 22:27 | XMS_ITS | Encounter Summary ---
:1935 Author Organization [facility] Address [address] [place] [address] Care Team Providers Name Role Phone Unavailable Primary Care Provider Unavailable Encounter Details Date Type Department Care Team Description 06/13/2004 - Hospital Encounter HX RST C&RS FLOOR Meli Lloyd, 06/20/2004 PRACTICE M.DSimon Social History Tobacco Use Types [...] or relatives? How often do you attend pres[employer]eterian or Patient refused 2021 adventist services? Do you belong to any clubs or No 12/31/2021 organizations such as presybeterian groups, unions, fraternal or athletic groups, or [...]
--- OUTSIDE RECORDS SUMMARY | 2022-03-26 22:27 | XMS_ITS | Encounter Summary ---
:1935 Author Organization [facility] Address [address] [place] [address] Care Team Providers Name Role Phone Unavailable Primary Care Provider Unavailable Encounter Details Date Type Department Care Team Description 10/12/2008 Hospital Encounter HX NO MAPPING Social History [...] or relatives? How often do you attend yarsani or Patient refused 2021 pentecostal services? Do you belong to any clubs or No 12/31/2021 organizations such as yarsani groups, unions, fraternal or athletic groups, or [...] Dispensed Refills Start Date End Date aspirin (ADULT LOW DOSE Take 1 tablet by 0 200810/10/2020 ASPIRIN) [address] tablet mouth daily. documented as of this encounter Plan of Treatment Not on filedocumented as of this encounter Visit Diagnoses Not on filedocumented in this encounter
--- OUTSIDE RECORDS SUMMARY | 2022-03-26 22:27 | XMS_ITS | Encounter Summary ---
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 [facility] [address] [place] [address] Referral ID Status Reason Start Date Expiration Date Visits Requ ested Visits Authorized [id number] Closed 12/09/2017 12/09/2018 1 1 utpatient (Routine) - Closed Specialty Diagnoses / Procedures Referred By Contact Lidia sheffield To Contact Hematology Oncology Meliton Gordon M.D . [facility] [address] [place] [address] Referral ID Status Reason Start Date Expiration Date Visits Requ ested Visits Authorized [id number] Closed 12/09/2017 12/09/2018 1 1 Scheduling Instructions Nicki Reason for Visit Outpatient (Routine) - Closed Specialty Diagnoses / Procedures Referred By Neto sheffield To Contact Hematology Oncology Diagnoses n/a Meliton Gordon M.D. [facility] Referral ID Status Reason Start Date Expiration Date Visits Requ ested Visits Authorized [id number] Closed 09/04/2017 03/03/2018 1 1 Encounter Details Date Type Department Care Team Description 12/09/2017 Office Visit Division of Meliton Gordon Leukemia Ly mphocytic Hematology in [place] Chronic Not [place] v[place], [place] Achieved Remission [address] [place] [address] (HCC) (Primary Dx) [place] [address] Social History Tobacco Use Types Packs/Day Years [...] you attend bahai or Patient refused 2021 sikh services? Do [...] Sign Reading Time Taken Comments Blood Pressure 153/67 12/09/2017 2:20 PM CDT Pulse 66 12/09/2017 2:20 PM CDT Temperature 36 ??C (96.8 ??F) 12/09/2017 2:20 PM CDT Respiratory Rate - - Oxygen Saturation - - Inhaled Oxygen Concentration - - Weight 98.9 kg (218 lb 0.6 oz) 12/09/2017 2:20 PM CDT Height 174.6 cm (5' 8.74) 12/09/2017 2:20 PM CDT Body Mass Index 32.44 12/09/2017 2:20 PM CDT documented in this encounter Progress Notes CallMeliton M.D. - 12/09/2017 2:30 PM CDT SUBJECTIVE Referring Provider CallMeliton M.D. CHIEF COMPLAINT/REASON FOR VISIT Kristofer Garcia who is followed for asymptomatic CLL. He returns for an annual recheck. HISTORY OF PRESENT ILLNESS Kristofer Garcia is a 82 y.o.male who has a history of B-cell CLL dating back to 2006. It isbeen asymptomatic and was incidental finding. He has been Topete stage 0. There has been a gradual increment in white count over the last 11 years but no significant anemia, thrombocytopenia, or other symptoms attributable. Therefore we have been observing. He returns at this time and is feeling the same he voices no new complaints. 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 His flow cytometry revealed a population of lambda-restricted B lymphocytes that were negative for CD38 and ZAP-70. FISH showed no ab normalities, and he was felt to be Topete [...] Lymphocytic Chronic Not Having Achieved Remission (HCC) Social History Social History ??? Marital status: Spouse name: N/A ??? Number of children: N/A ??? Years of education: N/A Social History Main Topics ??? Smoking status: Former Smoker Types: Cigarettes ??? Smokeless tobacco: Never Used ??? Alcohol use None ??? Drug use: Unknown ??? Sexual activity: Not Asked Other Topics Concern ??? None Social History Narrative ??? None No family history on file. REVIEW OF SYSTEMS General review of systems including General, Skin, HEENT, Cardiac, Respiratory, GI, , Musculoskeletal, and Neurologic is noncontributory or as follows: none ECOG PS 1 Current Outpatient Prescriptions Medication Sig Dispense Refill ??? ascorbic acid, vitamin C, (ascorbic acid with mildred hips) 500 mg tablet Take 1 tablet by mouth daily. ??? aspirin (ADULT LOW DOSE ASPIRIN) [address] tablet Take 1 tablet by mouth daily. ??? atenolol (TENORMIN) 25 mg tablet Take 1 tablet by mouth 2 (two) times a day. ??? atorvastatin (LIPITOR) 40 mg tablet Take 0.5 tablets by mouth daily. ??? hydroCHLOROthiazide (HYDRODIURIL) 25 mg tablet Take 1 tablet by mouth daily. ??? indomethacin (INDOCIN) 50 mg capsule Take 1 capsule by mouth 3 (three) times a day as needed. ??? lisinopril (PRINIVIL,ZESTRIL) 20 mg tablet Take 1 tablet by mouth daily. ??? omega-3 fatty acids/fish oil (OMEGA 3 FISH OIL ORAL) Take 1 capsule by mouth daily. ??? omeprazole (PriLOSEC) 20 mg capsule Take 1 capsule by mouth 2 (two) times a day. ??? salmon oil/omega-3 fatty acids (SALMON OIL-1000 ORAL) Take 1 tablet by mouth daily. ??? vitamin E 400 unit capsule Take 1 capsule by mouth daily. ??? metFORMIN (GLUCOPHAGE) 500 mg tablet Take 1 tablet by mouth daily. ??? nitroglycerin (NITROSTAT) 0.[address] 1 tablet under the tongue as needed. Place 1 tab under the tongue at first sign of chest pain. If no relief in 5 min, call 911. Repeat dose every 5 min up to 2 additional doses if chest pain continues. No current facility-administered medications for this visit. OBJECTIVE Vitals: 12/09/17 1420 BP: 153/67 Patient Position: Sitting Pulse: 66 Temp: 36 ??C Height: 174.6 cm Weight: 98.9 kg Body surface area is 2.19 meters squared. PHYSICAL EXAM General: Alert, oriented, in no discomfort. Skin: Normal Eyes: Normal ENT: Normal Lymph: No cervical, supraclavicular, axillary or inguinal adenopathy. Heart: S1, S2 normal. Regular rate and rhythm. No murmurs. Lungs: Clear to auscultation, bilateral good air entry. Abdomen: Non-tender to palpation. No hepatosplenomegaly. Neuro: grossly normal. Extremities: No pitting edema or deformities. Physical Exam DIAGNOSTICS I have reviewed the recent relevant labs. No results found. Recent Results (from the past 72 hour(s)) Bilirubin, Total Collection Time: 12/09/17 11:28 AM Result Value Bilirubin, Total, S 0.7 Creatinine with Estimated GFR (MDRD) Collection Time: 12/09/17 11:28 AM Result Value Creatinine, S 1.08 eGFR-Non Black 64 eGFR-Black 74 Alkaline Phosphatase Collection Time: 12/09/17 11:28 AM Result Value Alkaline Phosphatase, S 85 AST (Aspartate Aminotransferase) Collection Time: 12/09/17 11:28 AM Result Value Aspartate Aminotransferase (AST), S 22 CBC with Differential Collection Time: 12/09/17 11:28 AM Result Value Hemoglobin 12.8 (L) Hematocrit 38.7 Erythrocytes 4.32 (L) MCV 89.6 RBC Distrib Width 13.8 Platelet Count 169 Leukocytes 39.1 (H) Neutrophils SeeComment Reticulocytes Collection Time: 12/09/17 11:28 AM Result Value Reticulocytes, B 1.60 Absolute Reticulocyte 69.6 LD (Lactate Dehydrogenase) Collection Time: 12/09/17 11:28 AM Result Value Lactate Dehydrogenase (LD), S 158 [id number] 12MG [id number] Collection Time: 12/09/17 11:28 AM [place] 51077 A N 01 [place] [address] A N 01 [place] [address] A N 02 [place] [address] A N 03 [place] [address] A N 04 [place] [address] A N 05 [place] [address] A N 01 Collected Morphology Evaluation (Special Smear) Collection Time: 12/09/17 11:28 AM Result Value Neutrophilic Segs and Bands 14 (L) Lymphocytes 85 (H) Eosinophils 1 Fragile Cells Marked Manual Absolute Neutrophil Count 5.47 Interpretation SeeComment Reviewed by: Tech ASSESSMENT / PLAN #1 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 There has been a gradual increase in white count but no significant anemia or thrombocytopenia. Therefore we will continue to observe him. Given the chronicity will plan annually unless new symptoms are identified. We would only treat if there was progressive anemia, thrombocytopenia, symptomatic adenopathy, or other symptoms attributable to the CLL. He continues to need an annual dermatology exam due to the increased risk of skin cancer. I discussed with him that we do recommend routine immunizations in patients his age with CLL. These would include: 1. Annual influenza vaccine 2. Prevnar and Pneumovax, unless previously performed. We normally recommend a five year booster of Pneumovax. 3. The new shingles vaccine, Shingrix, is safe for use in immunocompromised patients and we do recommend Follow-up: Return to clinic in 1 year Education We discussed the diagnosis and treatment plan in detail. The patient expressed understanding of the content. No apparent learning barriers were identified; learning preferences include listening. Signed by: Renate Gordon M.D. 12/09/2017 2:58 PM documented in this encounter Plan of Treatment Scheduled Referrals Name Type Priority Associated Diagnoses Order S chedule Hematology office Outpatient Referral Routine Exp ected: visit (clinic) 12/09/2018 (Approximate), Expires: 12/09/2020 Dermatology - Skin Outpatient Referral Routine Leukemia Lympho cytic Expected: check consult Chronic Not Having 12/10/19 19 (clinic) Achieved Remission (Approxim ate), (HCC) Expires: 12/09/2020 documented as of this encounter Results Reticulocytes (12/07/2018 10:57 AM CDT) athologist Signature Reticulocytes, B 1.36 0.60 - 12/07/2018 2.71 % 11:21 AM CDT Absolute 58.6 30.4 - 12/07/2018 Reticulocyte 110.9 11:21 AM CDT x10(9)/L Specimen Anatomical Collection Method Collection Time Receive d Time (Source) Location / / Volume Laterality Blood (Blood, 12/07/2018 10:57 12/07/2018 Venous) AM CDT 11:16 AM CDT Meliton Gordon M.D. LAB BLOOD ADD-ON Performing Organization Address City/[facility]/ZIP [facility] Phon e Number [facility] - [address] LD (Lactate Dehydrogenase) (12/07/2018 10:57 AM CDT) Analysis Performed At Patho logist Time Signature Lactate 152 122 - 222 12/07/2018 Dehydrogenase U/L 12:05 PM CDT (LD), S Specimen Anatomical Collection Method Collection Time Receive d Time (Source) Location / / Volume Laterality Blood (Blood, 12/07/2018 10:57 12/07/2018 Venous) AM CDT 11:16 AM CDT Meliton Gordon M.D. LAB BLOOD NON ADD-ON Performing Organization Address City/[facility] Phon e Number [facility] - [address] Creatinine with Estimated GFR (12/07/2018 10:57 AM CDT) athologist Signature Creatinine 1.11 0.74 - 12/07/2018 1.35 mg/dL 12:05 PM CDT eGFR-Non 61 >=60 12/07/2018 Black/ mL/min/BSA 12:05 PM CDT Tongan Comment: ----ADDITIONAL INFORMATION---- Estimated GFR calculated using the 2009 CKD_EPI creatinine equation. eGFR-Black/ 71 >=60 mL/min/BSA 2018 12:05 PM CDT Comment: ----ADDITIONAL INFORMATION---- Estimated GFR calculated using the 2009 CKD_EPI creatinine equation. Specimen Anatomical Collection Method Collection Time Receive d Time (Source) Location / / Volume Laterality Blood (Blood, 12/07/2018 10:57 12/07/2018 Venous) AM CDT 11:16 AM CDT Meliton Gordon M.D. LAB BLOOD ADD-ON Performing Organization Address City/State/ZIP Code Phon e Number [facility] - [address] [place], [place] [address] [place] (ABNORMAL) CBC with Differential (12/07/2018 10:57 AM CDT) [facility] Method Time Signature Hemoglobin 12.8 (L) 13.2 - 12/07/2018 16.6 g/dL 11:21 AM CDT Hematocrit 39.9 38.3 - 12/07/2018 48.6 % 11:21 AM CDT Erythrocytes 4.31 (L) 4.35 - 12/07/2018 5.65 11:21 AM CDT x10(12)/L MCV 92.6 78.2 - 12/07/2018 97.9 fL 11:21 AM CDT RBC Distrib 14.0 11.8 - 12/07/2018 Width 14.5 % 11:21 AM CDT Platelet Count 164 135 - 317 12/07/2018 x10(9)/L 11:21 AM CDT Leukocytes 41.0 (H) 3.4 - 9.6 12/07/2018 x10(9)/L 11:57 AM CDT Neutrophils SeeComment 1.56 - 12/07/2018 6.45 11:57 AM CDT x10(9)/L Comment: Auto-diff results not valid. Se e manual differential. Specimen Anatomical Collection Method Collection Time Receive d Time (Source) Location / / Volume Laterality Blood (Blood, 12/07/2018 10:57 12/07/2018 Venous) AM CDT 11:16 AM CDT Meliton Gordon M.D. LAB BLOOD ADD-ON Performing Organization Address City/State/ZIP Code Phon e Number [facility] - 200 [place], [place] [address] [place] Bilirubin, Total (12/07/2018 10:57 AM CDT) P athologist Signature Bilirubin, 0.5 <=1.2 mg/dL 12/07/2018 Total, S 12:05 PM CDT Specimen Anatomical Collection Method Collection Time Receive d Time (Source) Location / / Volume Laterality Blood (Blood, 12/07/2018 10:57 12/07/2018 Venous) AM CDT 11:16 AM CDT Meliton Gordon M.D. LAB BLOOD ADD-ON Performing Organization Address City/[facility]/ZIP Code Phon e Number [facility] - 200 [place] [phone] [place] AST (Aspartate Aminotransferase) (12/07/2018 10:57 AM CDT) Patholo gist Method Time Signature Aspartate 22 8 - 48 12/07/2018 Aminotransferase U/L 12:05 PM CDT (AST), S Specimen Anatomical Collection Method Collection Time Receive d Time (Source) Location / / Volume Laterality Blood (Blood, 12/07/2018 10:57 12/07/2018 Venous) AM CDT 11:16 AM CDT Meliton Gordon M.D. LAB BLOOD ADD-ON Performing Organization Address City/State/ZIP Code Phon e Number [facility] - [address] [place] [phone] [place] Alkaline Phosphatase (12/07/2018 10:57 AM CDT) P athologist Signature Alkaline 83 40 - 129 12/07/2018 Phosphatase, S U/L 12:05 PM CDT Specimen Anatomical Collection Method Collection Time Receive d Time (Source) Location / / Volume Laterality Blood (Blood, 12/07/2018 10:57 12/07/2018 Venous) AM CDT 11:16 AM CDT Meliton Gordon M.D. 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
--- OUTSIDE RECORDS SUMMARY | 2022-03-26 22:27 | XMS_ITS | Encounter Summary ---
:1935 Author Organization [facility] Address [address] [place] [address] Care Team Providers Name Role Phone Unavailable Primary Care Provider Unavailable Encounter Details Date Type Department Care Team Description 10/19/2017 Abstract DATA ABSTRACTION Provider, Historical Social History Tobacco Use Types Packs/Day Years Used Date Smoking Tobacco: Former Alcohol Habits Answer Date Recorded How often [...] you attend evangelical or Patient refused 2021 judaism services? Do [...]
--- OUTSIDE RECORDS SUMMARY | 2022-03-26 22:27 | XMS_ITS | Encounter Summary ---
:1935 Author Organization [facility] Address [address] [place] [address] Care Team Providers Name Role Phone Unavailable Primary Care Provider Unavailable Encounter Details Date Type Department Care Team Description 06/22/2008 - Hospital Encounter HX RST C&RS FLOOR Meli Lloyd, 06/29/2008 PRACTICE M.DSimon Social History Tobacco Use Types [...] you attend yazidi or Patient refused 2021 adventist services? Do [...]
--- OUTSIDE RECORDS SUMMARY | 2022-03-26 22:27 | XMS_ITS | Encounter Summary ---
:1935 Author Organization [facility] Address [address] [place] [address] Care Team Providers Name Role Phone Unavailable Primary Care Provider Unavailable Encounter Details Date Type Department Care Team Description 03/04/2006 - Hospital Encounter HX RST C&RS FLOOR Meli Lloyd, 03/11/2006 PRACTICE M.DSimon Social History Tobacco Use Types [...]
--- OUTSIDE RECORDS SUMMARY | 2022-03-26 22:27 | XMS_ITS | Encounter Summary ---
:1935 Author Organization [facility] Address [address] [place] [address] Care Team Providers Name Role Phone Unavailable Primary Care Provider Unavailable Reason for Visit Outpatient (Routine) - Closed Specialty Diagnoses / Procedures Referred By Contact Refer red To Contact Hematology Oncology Call, David Reyes [address] [address] Referral ID Status Reason Start Date Expiration Date Visits Requ ested Visits Authorized [id number] Closed 12/09/2017 12/09/2018 1 1 Encounter Details Date Type Department Care Team Description 12/07/2018 Office Visit Division of Hematology Nicki Ortiz, Anemia (Primary Dx); [place] 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 Gordon CHIEF COMPLAINT/PURPOSE OF VISIT: CLL annual follow-up. The following portions of the patient's history were reviewed and updated as appropriate: allergies,current medications, family history, medical history, social history, surgical history and problem list. HISTORY OF PRESENT ILLNESS: Mr. Garcia is a 83 y.o. 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 He reports feeling well today. He was last seen on 12/09/2017. Since last visit, he has not experienced any infections, night sweats, fevers, or weight lossand he has not noticed any lymphadenopathy. He does report a slight increase in fatigue over the last year. Mr. Garcia otherwise denies dizziness, lightheadedness, chest pain, or shortness of breath. No rashes, numbness, tingling, or swelling. No abdominal pain or nausea. He has no other acute concerns. ROS: Reviewed and negative unless otherwise noted in HPI. VITAL SIGNS: BP 159/71 (BP Location: Left arm, Patient Position: Sitting, Cuff Size: Regular) Pulse 74 Temp (!) 35.8 ??C Ht 176.5 cm Wt 98 kg BMI 31.46 kg/m?? PHYSICAL EXAM: General: pleasant, nontoxic appearing male, in no acute distress. Ambulates to and from exam table without difficulty. Neuro: alert and oriented to person, place, and time; no focal deficits noted Eyes: anicteric, with extraocular movements intact ENT: oral mucosa is pink and moist without ulcerations, purpura, or petechiae. Heart: regular rate and rhythm without rubs or gallops. Systolic murmur is present. Lungs: clear to auscultation bilaterally, breathing comfortably on room air Abdomen: soft, nontender, without palpable hepatosplenomegaly Lymph: no preauricular, postauricular, anterior cervical, posterior cervical, supraclavicular, axillary, or inguinal lymphadenopathy Extremities: no lower extremity edema Skin: no rashes, purpura, petechiae, or other lesions visualized DIAGNOSTICS: Most recent laboratory values include: Lab Results Component Value Date WBC 41.0 (H) 12/07/2018 HGB 12.8 (L) 12/07/2018 HCT 39.9 12/07/2018 MCV 92.6 12/07/2018 PLT 164 12/07/2018 , Lab Results Component Value Date NA 140 04/04/2015 K 4.8 04/04/2015 CREATININE 1.11 12/07/2018 EGFR 61 12/07/2018 Lab Results Component Value Date ALT 16 2014 AST 22 12/07/2018 ALKPHOS 83 12/07/2018 BILITOT 0.5 12/07/2018 I also reviewed the following imaging results from the past 30 days: No results found. ASSESSMENT/PLAN: #1 Anemia Current hemoglobin is 12.8. This is stable since his last visit one year ago. His hemoglobin level has gradually trended down over the past few years. For this reason we decided to order a B12 and ferritin. His last colonoscopy was 10 years ago so we advised he follow up with his PCP. We will continueto monitor hemoglobin level at future visits. 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 He has no lymphadenopathy or B symptoms suggestive of disease progression. He has no signs or symptoms of acute infection. His WBC have continued to increase gradually. His current WBC count is 41.0 with 77% lymphocytes. His LDH and liver function tests are normal. Patient will be seen again in one year for follow-up. He is encouraged to contact us with concerning symptoms or any questions he may have. We discussed getting the Shingrix vaccine. Patient will follow up on this with his PCP. FOLLOW-UP: Return to clinic in 1 year, or sooner if needed PATIENT EDUCATION Ready to learn, no apparent learning barriers were identified; learning preferences include listening. Explained diagnosis and treatment plan; patient expressed understanding of the content. Associated attestation - Nicki Ortiz P.A.-C., M.S. - 12/09/2018 11:15 AM CDT This is an attestation note. I saw and evaluated the patient. I reviewed the clinical note of MAGDALENA Brar and discussed the case in detail. I agree with Ms. Orozco's assessment and plan. documented in this encounter Miscellaneous Notes Result Encounter Note - Marbella Carmona R.N. - 12/07/2018 1:00 PM CDT Results reviewed and contacted patient with results and recommendations as noted above. Electronically signed by: Marbella Carmona R.N. 12/09/18 10:04 AM documented in this encounter Plan of Treatment Not on filedocumented as of this encounter Procedures Procedure Name Priority Date/Time Associated Diagnosis Comme nts FERRITIN, S Routine 12/07/2018 10:50 AM Anemia Results for this CDT Leukemia Lymphocytic procedu re are in Chronic Not Having the resul ts Achieved Remission section. (HCC) VITAMIN B12 ASSAY, Routine 12/07/2018 10:50 AM Anemia Results for this S CDT Leukemia Lymphocytic procedu re are in Chronic Not Having the resul ts Achieved Remission section. (HCC) documented in this encounter Results Vitamin B12 Assay (12/07/2018 10:50 AM CDT) athologist Signature Vitamin B12 622 180 - 914 12/07/2018 Assay, S ng/L 2:13 PM CDT Comment: ----ADDITIONAL INFORMATION---- In patients being evaluated for vitamin B12 deficiency who have intrinsic factor blocking antibodie s (IFBA), false elevations of B12 may occur due to IFBA interference thus potentially obscuring a physiological de ficiency of B12. If observed B12 concentrations are disco rdant with clinical presentation, measurement of methylmalon ic acid (MMA) should be considered. Specimen Anatomical Collection Method Collection Time Receive d Time (Source) Location / / Volume Laterality Blood (Blood, 12/07/2018 10:50 12/07/2018 1:15 Venous) AM CDT PM CDT Nicki Ortiz P.A.-C., M.S. LAB BLOOD ADD-ON Performing Organization Address City/[facility]/ZIP Code Phon e Number [facility] - [address] Ferritin (12/07/2018 10:50 AM CDT) athologist Signature Ferritin, S 241 24 - 336 12/07/2018 mcg/L 2:08 PM CDT Specimen Anatomical Collection Method Collection Time Receive d Time (Source) Location / / Volume Laterality Blood (Blood, 12/07/2018 10:50 12/07/2018 1:15 Venous) AM CDT PM CDT Nicki Ortiz P.A.-C., M.S. 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
--- OUTSIDE RECORDS SUMMARY | 2022-03-26 22:27 | XMS_ITS | Encounter Summary ---
:1935 Author Organization [facility] Address [address] [place] [address] Care Team Providers Name Role Phone Unavailable Primary Care Provider Unavailable Reason for Visit Reason Onset Date Comments Reschedule 11/26/2017 Automatic Appointmen t Reminder Encounter Details Date Type Department Care Team Description 11/26/2017 Clinical Communication Division of Call, Meliton voss Hematology in [place] ([facility] Reminder) [address] [place] [address] Social History Tobacco Use Types Packs/Day Years [...] you attend mormon or Patient refused 2021 adventism services? Do [...] Miscellaneous Notes Telephone Encounter - Saadia Moore Carmelita - 11/26/2017 4:06 PM CDT Called patient. He did not want to reschedule or cancel. Keeping appointments on 12/09/17. Starla Telephone Encounter - En Strong - 11/26/2017 3:16 PM CDT Patient submitted an Automated Appointment Reminder to reschedule appointments. Please contact the patient to determine which appointments to update and reschedule as appropriate. Thank you. documented in this encounter Plan of Treatment Not on filedocumented as of this encounter Visit Diagnoses Not on filedocumented in this encounter
--- OUTSIDE RECORDS SUMMARY | 2022-03-26 22:27 | XMS_ITS | Encounter Summary ---
:1935 Author Organization [facility] Address [address] [place] [address] Care Team Providers Name Role Phone Unavailable Primary Care Provider Unavailable Encounter Details Date Type Department Care Team Description 10/14/2017 Abstract DATA ABSTRACTION Provider, Historical Social History [...] you attend latter-day or Patient refused 2021 mosque services? Do [...]
--- OUTSIDE RECORDS SUMMARY | 2022-03-26 22:27 | XMS_ITS | Encounter Summary ---
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 [facility] Referral ID Status Reason Start Date Expiration Date Visits V isits Requested Authorized [id number] Closed Specialty 09/04/2017 03/03/2018 1 1 Services Required Outpatient (Routine) - Closed Specialty Diagnoses / Procedures Referred By Contact Lidia sheffield To Contact Hematology Oncology Diagnoses n/a Meliton Gordon M.D. [facility] Referral ID Status Reason Start Date Expiration Date Visits Requ ested Visits Authorized [id number] Closed 09/04/2017 03/03/2018 1 1 Encounter Details Date Type Department Care Team Description 09/04/2017 Orders Only Division of Hematology Meliton Gordon C hronic Lymphocytic in [place] Sil[place] Leukemia Of B Cell [place] Type Not Having [address] Achieved Remission [place], [place] ([facility]) [id number] Social History Tobacco Use Types Packs/Day Years [...] or relatives? How often do you attend christian or Patient refused 2021 jain services? Do you belong to any clubs or No 12/31/2021 organizations such as christian groups, unions, fraGeosho or athletic groups, or school groups? How [...] Name Type Priority Associated Diagnoses Order S [facility] Hematology office Outpatient Referral Routine Exp ected: visit (clinic) 2017 (Approximate), Expires: 09/04/2020 Dermatology - Outpatient Referral Routine Chronic Lymphocytic Expected: General consult Leukemia Of B Cell 2017 (clinic) Type Not Having (Approximate ), Achieved Remission Expires: (HCC) 09/04/2020 documented as of this encounter Results LD (Lactate Dehydrogenase) (12/09/2017 11:28 AM CDT) [facility] Method Time Signature Lactate 158 122 - 222 12/09/2017 [facility] Dehydrogenase U/L 12:34 PM CDT LABORATORIES - (LD), S [facility] Specimen Anatomical Collection Method Collection Time Receive d Time (Source) Location / / Volume Laterality Blood 12/09/2017 11:28 12/09/2017 AM CDT 11:48 AM CDT Meliton Gordon M.D. LAB BLOOD NON ADD-ON Performing Organization Address City/State/ZIP Code Phon e Number [facility]ATORIES - [address] [place], [place] [address] [facility] Reticulocytes (12/09/2017 11:28 AM CDT) Sencera Method Time Signature Reticulocytes, B 1.60 0.60 - 12/09/2017 [facility] 2.71 % 11:55 AM CDT LABORATORIES - [facility] Absolute 69.6 30.4 - 12/09/2017 [facility] Reticulocyte 110.9 11:55 AM CDT LABORATORIES - x10(9)/L [facility] Specimen Anatomical Collection Method Collection Time Receive d Time (Source) Location / / Volume Laterality Blood 12/09/2017 11:28 12/09/2017 AM CDT 11:48 AM CDT Meliton Gordon M.D. LAB BLOOD ADD-ON Performing Organization Address City/[facility]/ZIP Code Phon e Number [facility]ATORIES - [address] [place] [address] [facility] (ABNORMAL) CBC with Differential (12/09/2017 11:28 AM CDT) [facility] Method Time Signature Hemoglobin 12.8 (L) 13.2 - 12/09/2017 [facility] 16.6 g/dL 11:56 AM LABORATORIES - CDT [facility] Hematocrit 38.7 38.3 - 12/09/2017 [facility] 48.6 % 11:56 AM LABORATORIES - T [facility] Erythrocytes 4.32 (L) 4.35 - 12/09/2017 [facility] 5.65 11:56 AM LABORATORIES - x10(12)/L T [facility] MCV 89.6 78.2 - 12/09/2017 [facility] 97.9 fL 11:56 AM LABORATORIES - T [facility] RBC Distrib 13.8 11.8 - 12/09/2017 [facility] Width 14.5 % 11:56 AM LABORATORIES - T [facility] Platelet Count 169 135 - 317 12/09/2017 [facility] x10(9)/L 11:56 AM LABORATORIES - T [facility] Leukocytes 39.1 (H) 3.4 - 9.6 12/09/2017 [facility] x10(9)/L 12:39 PM LABORATORIES - T [facility] Neutrophils SeeComment 1.56 - 12/09/2017 [facility] 6.45 12:39 PM LABORATORIES - x10(9)/L T [facility] Comment: Auto-diff results not valid. Se e manual differential. Specimen Anatomical Collection Method Collection Time Receive d Time (Source) Location / / Volume Laterality Blood 12/09/2017 11:28 12/09/2017 AM CDT 11:48 AM CDT Meliton Gordon M.D. LAB BLOOD ADD-ON Performing Organization Address City/[facility] Code Phon e Number [facility]ATORIES - [address] [place], [place] [address] [facility] AST (Aspartate Aminotransferase) (12/09/2017 11:28 AM CDT) [facility] Method Time Signature Aspartate 22 8 - 48 12/09/2017 [facility] Aminotransferase U/L 12:34 PM LABORATORIES - (AST), S CDT [facility] Specimen Anatomical Collection Method Collection Time Receive d Time (Source) Location / / Volume Laterality Blood 12/09/2017 11:28 12/09/2017 AM CDT 11:48 AM CDT Meliton Gordon M.D. LAB BLOOD ADD-ON Performing Organization Address City/[facility]/ZIP Code Phon e Number [facility]IES - [address] [place] [address] [facility] Alkaline Phosphatase (12/09/2017 11:28 AM CDT) P athologist Signature Alkaline 85 45 - 115 12/09/2017 [facility] Phosphatase, S U/L 12:34 PM CDT LABORATORIES - [facility] Specimen Anatomical Collection Method Collection Time Receive d Time (Source) Location / / Volume Laterality Blood 12/09/2017 11:28 12/09/2017 AM CDT 11:48 AM CDT Meliton Gordon M.D. LAB BLOOD ADD-ON Performing Organization Address City/State/[facility] Code Phon e Number [facility]IES - [address] [place] [address] [facility] Creatinine with Estimated GFR (MDRD) (12/09/2017 11:28 AM CDT) Analysis Performed At Patho logist Time Signature Creatinine 1.08 0.74 - 12/09/2017 [facility] 1.35 mg/dL 12:34 PM CDT LABORATORIES - [facility] eGFR-Non 64 >=60 12/09/2017 [facility] Black/ mL/min/BSA 12:34 PM CDT LABORATORIES - [facility] Comment: ----ADDITIONAL INFORMATION---- Estimated GFR calculated using the 2009 CKD_EPI creatinine equation. eGFR-Black/ 74 >=60 mL/min/BSA 12/09/2017 12:3 4 [facility] Filipino CDT LABORATORIES - [facility] Comment: ----ADDITIONAL INFORMATION---- Estimated GFR calculated using the 2009 CKD_EPI creatinine equation. Specimen Anatomical Collection Method Collection Time Receive d Time (Source) Location / / Volume Laterality Blood 12/09/2017 11:28 12/09/2017 AM CDT 11:48 AM CDT Meliton Gordon M.D. LAB BLOOD ADD-ON Performing Organization Address City/State/ZIP Code Phon e Number [facility]IES - [address] [place] [phone] [facility] Bilirubin, Total (12/09/2017 11:28 AM CDT) P athologist Signature Bilirubin, 0.7 <=1.2 12/09/2017 [facility] Total, S mg/dL 12:34 PM CDT LABORATORIES - [facility] Specimen Anatomical Collection Method Collection Time Receive d Time (Source) Location / / Volume Laterality Blood 12/09/2017 11:28 12/09/2017 AM CDT 11:48 AM CDT Meliton Gordon M.D. LAB BLOOD ADD-ON Performing Organization Address City/State/ZIP Code Phon e Number [facility]IES - [address] documented in this encounter Visit Diagnoses Diagnosis Chronic Lymphocytic Leukemia Of B Cell T ype Not Having Achieved Remission (HCC) documented in this encounter
--- OUTSIDE RECORDS SUMMARY | 2022-03-26 22:27 | XMS_ITS | Encounter Summary ---
:1935 Author Organization [facility] Address [address] [place] [address] Care Team Providers Name Role Phone Unavailable Primary Care Provider Unavailable Encounter Details Date Type Department Care Team Description 11/26/2017 Orders Only Division of Hematology Judit Vital Chronic Lymphocytic in [place], [facility] [address] [facility] Leukemia Of B Cell Type [place], [place] Not Having Achieved [address] [facility] [id number] Remission (HCC) [place], [place] [phone] (Primary Dx) [phone] (Work) [phone] Social History Tobacco Use Types Packs/Day Years [...] you attend mormonism or Patient refused 2021 faith services? Do [...] on filedocumented as of this encounter Results [id number] 12MG V1396 (12/09/2017 11:28 AM CDT) [facility] Method Time Signature STUDY LE Collected 12/09/2017 [facility] [address] A N 01 12:17 PM CDT [facility] STUDY HS Collected 12/09/2017 [facility] 50298 A N 01 12:17 PM CDT [facility] STUDY HS Collected 12/09/2017 [facility] 30901 A N 02 12:17 PM CDT [facility] STUDY HS Collected 12/09/2017 [facility] 71503 A N 03 12:17 PM CDT [facility] STUDY HS Collected 12/09/2017 [facility] 42287 A N 04 12:17 PM CDT [facility] STUDY HS Collected 12/09/2017 [facility] 89518 A N 05 12:17 PM CDT [facility] STUDY RS Collected 12/09/2017 [place] 188200 A N 01 12:17 PM CDT [facility] Specimen Anatomical Collection Method Collection Time Receive d Time (Source) Location / / Volume Laterality Blood (Blood, 12/09/2017 11:28 12/09/2017 Venous) AM CDT 12:17 PM CDT Narrative [facility] - 12/09/2017 12:18 PM CDT Specimen Information: Specimen ID: [id number] Specimen Type: Blood Specimen Collection Start Date: 12/10/19 18 11:28 AM Specimen Received Date: 12/09/2017 12:17 PM Specimen ID: [id number] Specimen Type: Blood Specimen Collection Start Date: 12/10/19 18 11:28 AM Specimen Received Date: 12/09/2017 12:17 PM Specimen ID: [id number] Specimen Type: Blood Specimen Collection Start Date: 12/10/19 18 11:28 AM Specimen Received Date: 12/09/2017 12:17 PM Specimen ID: [id number] Specimen Type: Blood Specimen Collection Start Date: 12/10/19 18 11:28 AM Specimen Received Date: 12/09/2017 12:17 PM Specimen ID: [id number] Specimen Type: Blood Specimen Collection Start Date: 12/10/19 18 11:28 AM Specimen Received Date: 12/09/2017 12:17 PM Specimen ID: [id number] Specimen Type: Blood Specimen Collection Start Date: 12/10/19 11:28 AM Specimen Received Date: 12/09/2017 12:17 PM Specimen ID: [id number] Specimen Type: Blood Specimen Collection Start Date: 12/10/19 11:28 AM Specimen Received Date: 12/09/2017 12:17 PM Fidel Rose M.D. LAB BLOOD ADD-ON Performing Organization Address City/State/ZIP Code Phon e Number [facility] - [address] documented in this encounter Visit Diagnoses Diagnosis Chronic Lymphocytic Leukemia Of B Cell T ype Not Having Achieved Remission (HCC) - Primary Chronic Lymphocytic Leukemia Of B Cell T ype Not Having Achieved Remission (HCC) documented in this encounter
--- OUTSIDE RECORDS SUMMARY | 2022-03-26 22:27 | XMS_ITS | Encounter Summary ---
:1935 Author Organization [facility] Address [address] [place] [address] Care Team Providers Name Role Phone Unavailable Primary Care Provider Unavailable Encounter Details Date Type Department Care Team Description 02/02/2006 - Hospital Encounter HX RST C&RS FLOOR Meli Lloyd, 02/09/2006 PRACTICE M.DSimon Social History Tobacco Use Types [...] you attend bahai or Patient refused 2021 protestant services? Do [...]
--- OUTSIDE RECORDS SUMMARY | 2022-03-26 22:27 | XMS_ITS | Encounter Summary ---
:1935 Author Organization [facility] Address [address] [place] [address] Care Team Providers Name Role Phone Unavailable Primary Care Provider Unavailable Encounter Details Date Type Department Care Team Description 12/07/2018 Hospital Encounter Department of Call, Avtar Reyes Laboratory Medicine MSimonDSimon Chronic Not Having and Pathology, Achieved [place], in ([facility]) [place], [place] [address] [place] [address] Social History Tobacco Use Types Packs/Day Years [...] you attend synagogue or Patient refused 2021 sikhism services? Do you belong to any clubs [...] Take 1 capsule by 0 mouth daily. ketoconazole (NIZORAL) 2 % Apply 1 30 g 3 9 01/18/2019 cream application topically 2 (two) times a day. Apply to the affected areas on the face aspirin (ADULT LOW DOSE Take 1 tablet by 0 200810/10/2020 ASPIRIN) [address] tablet mouth daily. atenolol (TENORMIN) 25 mg Take 1 tablet by 0 0710/201610/10/2020 tablet mouth 2 (two) times a day. atorvastatin (LIPITOR) 40 Take 0.5 tablets 0 10/201601/10/2021 mg tablet by mouth daily. hydroCHLOROthiazide [...] Procedure Name Priority Date/Time Associated Comments Diagnosis [id number] 12MG V1396 Routine 12/07/2018 10:58 Leukemia Res ults for this AM CDT Lymphocytic Chronic procedur e are in Not Having Achieved the resu lts Remission (HCC) section. SPSMA RESULT Routine 12/07/2018 10:57 Results for this AM CDT procedure are i n the results section. RETICULOCYTES, B Routine 12/07/2018 10:57 Leukemia Results for this AM CDT Lymphocytic Chronic procedur e are in Not Having Achieved the resu lts Remission (HCC) section. CBC WITH DIFFERENTIAL, B Routine 12/07/2018 10:57 Leukemia Results for this AM CDT Lymphocytic Chronic procedur e are in Not Having Achieved the resu lts Remission (HCC) section. ASPARTATE Routine 12/07/2018 10:57 Leukemia Results for this AMINOTRANSFERASE (AST), AM CDT Lymphocytic Chron ic procedure are in S/P Not Having Achieved the resu lts Remission (HCC) section. ALKALINE PHOSPHATASE, Routine 12/07/2018 10:57 Leukemia Re sults for this S/P AM CDT Lymphocytic Chronic procedur e are in Not Having Achieved the resu lts Remission (HCC) section. LACTATE DEHYDROGENASE Routine 12/07/2018 10:57 Leukemia Re sults for this (LD), S AM CDT Lymphocytic Chronic procedur e are in Not Having Achieved the resu lts Remission (HCC) section. CREATININE WITH EGFR, Routine 12/07/2018 10:57 Leukemia Re sults for this S/P AM CDT Lymphocytic Chronic procedur e are in Not Having Achieved the resu lts Remission (HCC) section. BILIRUBIN, TOT, S/P Routine 12/07/2018 10:57 Leukemia Resu lts for this AM CDT Lymphocytic Chronic procedur e are in Not Having Achieved the resu lts Remission (HCC) section. documented in this encounter Results [id number] 12MG V1396 (12/07/2018 10:58 AM CDT) Analysis Performed At [place]o [place] [address] Collected DEFAULT 12/07/2018 A N 01 12:[place] [address] Collected DEFAULT 12/07/2018 A N 01 12:[place] [address] Collected DEFAULT 12/07/2018 A N 02 12:[place] [address] Collected DEFAULT 12/07/2018 A N 03 12:11 [place] [address] Collected DEFAULT 12/07/2018 A N 04 12:[place] [address] Collected DEFAULT 12/07/2018 A N 05 12:[place] [address] Collected DEFAULT 12/07/2018 A N 01 12:10 PM CDT Specimen Anatomical Collection Method Collection Time Receive d Time (Source) Location / / Volume Laterality Blood (Blood, 12/07/2018 10:58 12/07/2018 Venous) AM CDT 12:11 PM CDT Narrative [facility] - 12/07/2018 12:34 PM CDT Specimen Information: Specimen ID: [id number] Specimen Type: Blood Specimen Collection Start Date: 12/08/19 10:58 AM Specimen Received Date: 12/07/2018 12:11 PM Specimen ID: [id number] Specimen Type: Blood Specimen Collection Start Date: 12/08/19 10:58 AM Specimen Received Date: 12/07/2018 12:10 PM Specimen ID: [id number] Specimen Type: Blood Specimen Collection Start Date: 12/08/19 10:58 AM Specimen Received Date: 12/07/2018 12:11 PM Specimen ID: [id number] Specimen Type: Blood Specimen Collection Start Date: 12/08/19 10:58 AM Specimen Received Date: 12/07/2018 12:11 PM Specimen ID: [id number] Specimen Type: Blood Specimen Collection Start Date: 12/08/19 10:58 AM Specimen Received Date: 12/07/2018 12:10 PM Specimen ID: [id number] Specimen Type: Blood Specimen Collection Start Date: 12/08/19 10:58 AM Specimen Received Date: 12/07/2018 12:10 PM Specimen ID: [id number] Specimen Type: Blood Specimen Collection Start Date: 12/08/19 10:58 AM Specimen Received Date: 12/07/2018 12:10 PM Fidel Rose M.D. LAB BLOOD ADD-ON Performing Organization Address City/State/ZIP Code Phon e Number [facility] - [address] [place], [place] [address] [facility] (ABNORMAL) Morphology Evaluation (Special Smear) (12/07/2018 10:57 AM CDT) Patholo gist Method Time Signature Neutrophilic Segs 21 (L) 50 - 75 % 12/07/2018 and Bands 11:57 AM CDT Lymphocytes 77 (H) 18 - 42 % 12/07/2018 11:57 AM CDT Monocytes 1 (L) 2 - 11 % 12/07/2018 11:57 AM CDT Basophils 1 0 - 2 % 12/07/2018 11:57 AM CDT Fragile Cells Moderate 12/07/2018 11:57 AM CDT Manual Absolute 8.61 (H) 1.56 - 12/07/2018 Neutrophil Count 6.45 11:57 AM CDT x10(9)/L Comment: ----ADDITIONAL INFORMATION---- The manual absolute neutrophil count is derived from a manual differential count and therefore is not exactly comparable to the automated absolute celso trophil count. Reviewed by: Eric 12/07/2018 11:57 AM CDT Specimen Anatomical Collection Method Collection Time Receive d Time (Source) Location / / Volume Laterality Blood 12/07/2018 10:57 12/07/2018 AM CDT 11:16 AM CDT Meliton Gordon M.D. LAB BLOOD ADD-ON Performing Organization Address City/[facility] Phon e Number [facility] - [address] [place] [address] [facility] Reticulocytes (12/07/2018 10:57 AM CDT) P athologist Signature Reticulocytes, B 1.36 0.60 - 12/07/2018 2.71 % 11:21 AM CDT Absolute 58.6 30.4 - 12/07/2018 Reticulocyte 110.9 11:21 AM CDT x10(9)/L Specimen Anatomical Collection Method Collection Time Receive d Time (Source) Location / / Volume Laterality Blood (Blood, 12/07/2018 10:57 12/07/2018 Venous) AM CDT 11:16 AM CDT Meliton Gordon M.D. LAB BLOOD ADD-ON Performing Organization Address City/[facility] Code Phon e Number [facility] - [address] LD (Lactate Dehydrogenase) (12/07/2018 10:57 AM [...] LAB BLOOD NON ADD-ON Performing Organization Address City/[facility] Phon e Number [facility] - [address] [place], [place] [address] [facility] Creatinine with Estimated GFR (12/07/2018 10:57 AM CDT) athologist Signature Creatinine 1.11 0.74 - 12/07/2018 1.35 mg/dL 12:05 PM CDT eGFR-Non 61 >=60 12/07/2018 Black/ mL/min/BSA 12:05 PM CDT [place] Comment: ----ADDITIONAL INFORMATION---- Estimated GFR calculated using [...] M.D. LAB BLOOD ADD-ON Performing Organization Address City/State/[facility] Code Phon e Number [facility] - [address] [place], [place] [address] [facility] (ABNORMAL) CBC with Differential (12/07/2018 10:57 AM CDT) Patholo gist Method Time Signature Hemoglobin 12.8 (L) 13.2 [...] M.D. LAB BLOOD ADD-ON Performing Organization Address [facility] Phon e Number [facility] - [address] Bilirubin, Total (12/07/2018 10:57 AM CDT) P athologist Signature Bilirubin, 0.5 <=1.2 mg/dL 12/07/2018 Total, S 12:05 PM CDT Specimen Anatomical Collection Method Collection Time Receive d Time (Source) Location / / Volume Laterality Blood (Blood, 12/07/2018 10:57 12/07/2018 Venous) AM CDT 11:16 AM CDT Meliton Gordon M.D. LAB BLOOD ADD-ON Performing Organization Address City/[facility]/ZIP Code Phon e Number [facility] - [address] AST (Aspartate Aminotransferase) (12/07/2018 10:57 AM CDT) Patholo gist Method Time Signature Aspartate 22 8 - 48 12/07/2018 Aminotransferase U/L 12:05 PM CDT (AST), S Specimen Anatomical Collection Method Collection Time Receive d Time (Source) Location / / Volume Laterality Blood (Blood, 12/07/2018 10:57 12/07/2018 Venous) AM CDT 11:16 AM CDT Meliton Gordon M.D. LAB BLOOD ADD-ON Performing Organization Address City/[facility]/ZIP Code Phon e Number [facility] - 200 [place], [place] [address] [facility] Alkaline Phosphatase (12/07/2018 10:57 AM CDT) P athologist Signature Alkaline 83 40 - 129 12/07/2018 Phosphatase, S U/L 12:05 PM CDT Specimen Anatomical Collection Method Collection Time Receive d Time (Source) Location / / Volume Laterality Blood (Blood, 12/07/2018 10:57 12/07/2018 Venous) AM CDT 11:16 AM CDT Meliton Gordon M.D. LAB BLOOD ADD-ON Performing Organization Address City/State/ZIP Code Phon e Number [facility] - [address] [place] [address] [facility] documented in this encounter Visit Diagnoses Diagnosis 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
--- OUTSIDE RECORDS SUMMARY | 2022-03-26 22:27 | XMS_ITS | Encounter Summary ---
:1935 Author Organization [facility] Address [address] [place] [address] Care Team Providers Name Role Phone Unavailable Primary Care Provider Unavailable Encounter Details Date Type Department Care Team Description 11/13/2008 Hospital Encounter HX NO MAPPING Social History [...] attend roman catholic or Patient refused 2021 restorationist services? Do you belong to any clubs [...]
--- OUTSIDE RECORDS SUMMARY | 2022-03-26 22:27 | XMS_ITS | Encounter Summary ---
:1935 Author Organization [facility] Address [address] [place] [address] Care Team Providers Name Role Phone Unavailable Primary Care Provider Unavailable Encounter Details Date Type Department Care Team Description 10/23/2008 Hospital Encounter HX NO MAPPING Social History [...] or relatives? How often do you attend anabaptist or Patient refused 2021 presybeterian services? Do you belong to any clubs or No 12/31/2021 organizations such as anabaptist groups, unions, fraternal or athletic groups, or [...]
--- OUTSIDE RECORDS SUMMARY | 2022-03-26 22:28 | XMS_ITS | Encounter Summary ---
:1935 Author Organization [facility] Address [address] [place] [address] Care Team Providers Name Role Phone Unavailable Primary Care Provider Unavailable Encounter Details Date Type Department Care Team Description 03/18/2004 - Hospital Encounter HX RST C&RS FLOOR Meli Lloyd, 03/25/2004 PRACTICE M.DSimon Social History Tobacco Use Types [...] you attend jew or Patient refused 2021 mormon services? Do [...]
--- OUTSIDE RECORDS SUMMARY | 2022-03-26 22:28 | XMS_ITS | Encounter Summary ---
:1935 Author Organization [facility] Address [address] [place] [address] Care Team Providers Name Role Phone Unavailable Primary Care Provider Unavailable Encounter Details Date Type Department Care Team Description 06/10/2004 - Hospital Encounter HX RST C&RS FLOOR Bertrand Manley, 06/17/2004 PRACTICE M.D., M.B.A. [address] [place] [phone] Social History Tobacco Use Types Packs/Day Years [...] you attend denominational or Patient refused 2021 restorationism services? Do [...]
--- OUTSIDE RECORDS SUMMARY | 2022-03-26 22:28 | XMS_ITS | Encounter Summary ---
:1935 Author Organization [facility] Address [address] [place] [address] Care Team Providers Name Role Phone Unavailable Primary Care Provider Unavailable Encounter Details Date Type Department Care Team Description 05/13/2004 - Hospital Encounter HX RST C&RS FLOOR Meli Lloyd, 05/20/2004 PRACTICE M.DSimon Social History Tobacco Use Types [...] you attend holiness or Patient refused 2021 jainism services? Do [...]
--- OUTSIDE RECORDS SUMMARY | 2022-03-26 22:28 | XMS_ITS | Encounter Summary ---
:1935 Author Organization [facility] Address [address] [place] [address] Care Team Providers Name Role Phone Unavailable Primary Care Provider Unavailable Encounter Details Date Type Department Care Team Description 04/24/2004 - Hospital Encounter HX RST C&RS FLOOR Meli Lloyd, 05/01/2004 PRACTICE M.DSimon Social History Tobacco Use Types [...] you attend synagogue or Patient refused 2021 jehovah's witness services? Do you belong to any clubs [...]
--- OUTSIDE RECORDS SUMMARY | 2022-03-26 22:28 | XMS_ITS | Encounter Summary ---
:1935 Author Organization [facility] Address [address] [place] [address] Care Team Providers Name Role Phone Unavailable Primary Care Provider Unavailable Encounter Details Date Type Department Care Team Description 03/26/2004 - Hospital Encounter HX RST C&RS FLOOR Meli Lloyd, 04/02/2004 PRACTICE M.DSimon Social History Tobacco Use Types [...] or relatives? How often do you attend worship or Patient refused 2021 restoration services? Do you belong to any clubs or No 12/31/2021 organizations such as worship groups, unions, fraternal or athletic groups, or [...]
--- OUTSIDE RECORDS SUMMARY | 2022-03-26 22:28 | XMS_ITS | Encounter Summary ---
:1935 Author Organization [facility] Address [address] [place] [address] Care Team Providers Name Role Phone Unavailable Primary Care Provider Unavailable Encounter Details Date Type Department Care Team Description 03/15/2004 - Hospital Encounter HX RST C&RS FLOOR Meli Lloyd, 03/22/2004 PRACTICE M.DSimon Social History Tobacco Use Types [...] you attend jew or Patient refused 2021 methodist services? Do [...]
--- OUTSIDE RECORDS SUMMARY | 2022-03-26 22:28 | XMS_ITS | Clinical Summary ---
:1935 Author Organization [facility] [place] [address] Care Team Providers Name Role Phone Luiz Bullock MD Primary Care Provider [phone] Allergies Active Allergy Reactions Severity Noted Date Comments Amlodipine Other - Describe In Comment 08/06/2020 Leg swelling on 5mg Field Metformin Diarrhea 07/03/2020 Medications Medication Sig Dispensed Refills Start Date End Date Status VITAMIN C 500 MG TAB Once daily 0 0 06/23/2008 Active blood-glucose meter As directed. 1 Device 0 01/29/2010 Active Dispense glucose meter, test strips and lancets covered by the patient insurance. Test 1 times per day. indomethacin (INDOCIN) One oral three 30 capsule 1 05/22/2014 Active 50 mg capsule times daily as needed silver sulfADIAZINE Apply topically 50 g 0 04/15/2019 Active (SILVADENE) 1 % to affected creamIndications: Burn area(s) once (any degree) involving daily. less than 10% of body surface vitamin e 400 unit Take 1 capsule by 0 05/25/2020 Active capsule mouth once daily. triamcinolone Apply topically 80 g 0 09/18/2020 Active (ARISTOCORT; KENALOG) to affected 0.1 % area(s) 3 times creamIndications: Rash daily. Not to exceed 14 days without interruption. fluticasone (50 mcg SHAKE LIQUID AND 48 g 3 03/08/2021 Active per actuation) nasal USE 2 SPRAYS IN solution EACH NOSTRIL (FLONASE)Indications: EVERY DAY Allergic rhinitis due to pollen, unspecified seasonality omeprazole 20 mg Take 1 Tablet (20 180 Tablet 3 06/27/2021 Active tabletIndications: mg) by mouth 2 Chronic GERD times daily. salmon oiL-omega-3 Take by mouth. 0 08/06/2021 Active fatty acids 1,000-210 mg cap valsartan (DIOVAN) 320 Take 1 Tablet 90 Tablet 1 10/28/2021 Active mg tabletIndications: (320 mg) by mouth HTN (hypertension) once daily. Due for cardiology appointment, please call to schedule for further refills. carvediloL (COREG) 25 Take 1 Tablet (25 180 Tablet 3 2 Active mg tabletIndications: mg) by mouth in HTN (hypertension) the morning and 1 Tablet (25 mg) in the evening. Take with meals. spironolactone Take 1 Tablet (25 90 Tablet 3 11/11/2021 Active (ALDACTONE) 25 mg mg) by mouth tabletIndications: every morning. Benign essential HTN CPAPIndications: ROSA ISELA CPAP machine for 1 Each 11 12/30/2021 Active (obstructive sleep home use at apnea) pressure 7cm/H2O, full face mask x1/3month with a full face cushion x1/mo atorvastatin (LIPITOR) Take 1 Tablet (20 90 Tablet 3 2 Active 20 mg mg) by mouth once tabletIndications: daily. Hyperlipidemia, unspecified hyperlipidemia type apixaban (ELIQUIS) 5 Take 1 Tablet (5 180 Tablet 3 01/01/2022 Active mg tabletIndications: mg) by mouth in New onset a-fib (HC) the morning and 1 Tablet (5 mg) in the evening. empagliflozin Take 1 Tablet (25 90 Tablet 1 01/01/2022 Active (JARDIANCE) 25 mg mg) by mouth once tabletIndications: daily. Type 2 diabetes mellitus without complication, with long-term current use of insulin (HC) [facility] Test TEST 1 TIME 100 Each 3 01/12/2022 Ac tive stripIndications: DAILY. 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 11/26/2021 associated with type 2 diabetes mellitus Type 2 diabetes mellitus without complication, with lo ng-term current use 10/28/2021 of insulin Heart failure 08/22/2021 Interstitial lung disease 08/22/2021 Irritable bowel syndrome with diarrhea 08/22/2021 Hypertensive kidney disease, stage III 06/27/2021 Coronary artery disease: JAMES, midLAD, prox Cx, OM1 /2 10/202001/18/2021 Gynecomastia 08/06/2020 Bilateral lower extremity edema 07/03/2020 Migraine syndrome 05/03/2020 ROSA ISELA 04/02/2020 AHI-6.6 04/17/2020 Benign positional vertigo 03/26/2015 Hyperlipidemia 11/22/2012 Chronic lymphocytic leukemia 01/01/2011 Diabetes mellitus, type 2 10/31/2008 Unspecified essential hypertension 10/02/2006 Esophageal reflux 10/02/2006 Resolved Problems Problem Noted Date Resolved Date Atrial fibrillation 04/17/2020 06/27/2021 Cellulitis and abscess of leg, except foot 05/01/2009 06/27/2021 Encounters Date Type Specialty Care Team Description 02/25/2022 Office Visit Fidel Patel MD Sleep Follow -up (CPAP) 02/25/2022 Travel 02/23/2022 Orders Only Scanner <No scans attac hed> 01/09/2022 Refill Luiz Bullock, Ref ill Request ([facility]etr[facility] MD Test) 01/01/2022 Telephone Luiz Bullock Med ication Problem MD 12/30/2021 Office Visit Luiz Bullock Med ication Management; Diabetes; Immunization/In jection 12/30/2021 Office Visit Fidel Patel MD Sleep Follow -up 12/30/2021 Travel 12/27/2021 Orders Only Lab, [facility] 12/27/2021 Travel from Last 3 Months Immunizations Name Administration Dates Next Due AMB INFLUENZA IIV3 (AGE 65+ YRS) PF 03/04/2019 (Flu Clinic Only) AMB Influenza, IIV3 (Age >=3 03/09/2012, 03/07/2008 years)(Flu Clinic Only) AMB Influenza, IIV4 PF (=>6 mos 04/08/2016 Flulaval,Fluzone Fluarix)(Flu Clinic Only) Amb Influenza, Inact (High-dose) (Flu 02/09/2014 Clinic Only) COVID-19 vaccine ([employer] 08/22/2021 30mcg/0.3mL) 12YO+ CORBY-SUCROSE REN RUELAS COVID-19 vaccine ([employer] 07/24/2020, 07/03/2020 30mcg/0.3mL) PF, MDV Influenza Virus, Unspecified 02/16/2012, 02/16/2008, 007, 03/29/2003 Influenza, High-dose Inactivated 03/26/2015, 02/09/2014 Influenza, High-dose Quadrivalent 03/07/2021 Inactivated Influenza, IIV3 (Age 6-35 mos) 02/24/2011, 01/29/2010 Influenza, IIV3 (Age >=3 years) 02/22/2013, 03/09/2012, 02/15, 01/29/2010, 01/17/2009, 03/07/2008, 02/16/2008, 03/09/2007, 02/15/2007, 03/02/2006, 03/10/2005, 02/29/2004, 03/29/2003, 03/14/2003 Influenza, IIV4 04/08/2016 Influenza, Inactivated AIIV4 (Age 65+ 03/06/2020 Years) Preserv Free Influenza, Inactivated IIV3 (Age 65+ 02/03/2018, 02/10/2017 Years) Preserv Free Pneumococcal Conj 20-valent (Prevnar 12/30/2021 20) Pneumococcal Poly,23-Valent 01/29/2010, 05/18/2004, 02/29/20 04 (Pneumovax) Td (Age >=7 Years) 12/25/1998 Td, Preservative Free (age >= 7 04/17/2009 Years) Tdap 06/12/2020 Zoster (Shingrix-RZV, recombinant) 10/10/2020, 06/12/2020 Family History Medical History Relation Name Comments Diabetes Mother Relation Name Status Comments Brother 1 Alive x2 Brother 2 x1 Daughter Alive x4 Father Maternal Grandfather Maternal Grandmother Mother Paternal Grandfather Paternal Grandmother Sister 1 Alive x3 Sister 2 x1 Son Alive x2 Social History Tobacco Use Types Packs/Day Years Used Date Former Smoker Quit: 05/18/18 Smokeless Tobacco: Never Used Tobacco Cessation: Counseling Given: Yes Comments: patient quit on 05-18-67 Alcohol Use Standard Drinks/Week Comments Yes 0 (1 standard drink = 0.6 oz pure alcoho l) Less that 1 beer per month. Alcohol Habits Answer Date Recorded How often do you have a drink containing Monthly or less 08/05/2018 alcohol? How many drinks containing alcohol do you 1 or 2 08/05/2018 have on a typical day when you are drinking? How often do you have six or more drinks Never 08/05/2018 on one occasion? Comment: Less that 1 beer per month. 08/14/2016 Sex Assigned at Date Recorded Not on file COVID-19 Exposure Response Date Recorded In the last 10 days, have you been in contact No / Unsure 02/25/2022 11:15 AM CDT with someone who was confirmed or suspected to have Coronavirus/COVID-19? 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 Respiratory Rate 22 03/28/2021 3:08 PM DEHYDROGENATION OPERATOR Oxygen Saturation 96% 02/25/2022 11:19 AM CDT Inhaled Oxygen Concentration - - Weight 92.7 kg (204 lb 4.8 oz) 02/25/2022 11:19 AM CDT Height 175.3 cm (5' 9) 12/30/2021 11:33 AM CDT Body Mass Index 30.17 12/30/2021 11:33 AM CDT Plan of Treatment Upcoming Encounters Date Type Specialty Care Team Description 04/01/2022 Office Visit Luiz Bullock MD [address] [facility] [address] (Wo rk) Health Maintenance Due Date Last Done Comments Medicare Wellness for age 65+ 05/03/2021 05/03/2020 COVID-19 vaccine series (5 - 10/17/2021 08/22/2021, 021, Booster for Pfizer series) 07/24/2020, Additiona l history exists Influenza for age 65+ 01/16/2022 03/07/2021, 03/06/2020, 03/04/2019, Additional history exists Depression screening for age 12+ 06/03/2022 06/03/2021, 02/2021, 01/24/2021, Additional history exists BMI (ht and wt on same day) for 12/30/2022 12/30/2021, 12/16, age 18+ 09/18/2020, Additional history exists Tetanus booster 06/12/2030 06/12/2020, 04/17/2009, 12/25/1998 Tdap Completed 06/12/2020 Zoster (shingles) series for age Completed 10/10/2020, 50+ Pneumococcal series for age 65+ Completed 12/30/2021, 01/16, 05/18/2004, Additional history exists Procedures Procedure Name Priority Date/Time Associated Diagnosis Comme nts SCAN-DIAGNOSTIC 02/23/2022 12:00 Results for this REPORT AM CDT procedure are i n the results section. SCAN-DIAGNOSTIC 12/30/2021 12:00 Results for this REPORT AM CDT procedure are i n the results section. URINE ALBUMIN TO Routine 12/27/2021 8:51 AM Diabetes mellitus type Results for this CREATININE RATIO, CDT 2, uncontrolled, with p rocedure are in RANDOM complications the results section. TSH WITH REFLEX Add On 12/27/2021 8:48 AM Type 2 diabetes Res ults for this CDT mellitus without procedure a re in complication, without the re sults long-term current use sectio n. of insulin (HC) BASIC METABOLIC Routine 12/27/2021 8:48 AM Diabetes mellitus t ype Results for this PANEL CDT 2, uncontrolled, with proced ure are in complications the results section. LIPID PANEL W Routine 12/27/2021 8:48 AM Diabetes mellitus typ e Results for this REFLEX MEASURED LDL CDT 2, uncontrolled, with procedure are in complications the results section. HEMOGLOBIN A1C Routine 12/27/2021 8:48 AM Diabetes mellitus ty pe Results for this CDT 2, uncontrolled, with proced ure are in complications the results section. from Last 3 Months Results SCAN-DIAGNOSTIC REPORT (02/23/2022 12:00 AM CDT) Narrative This result has an attachment that is no t available. Scanner OTHER SCAN-DIAGNOSTIC REPORT (12/30/2021 12:00 AM CDT) Narrative This result has an attachment that is no t available. Scanner OTHER (ABNORMAL) MICROALBUMIN RANDOM URINE (12/27/2021 8:51 AM CDT) Patholo gist Method Time Signature ALB RAND URINE 46.2 mg/L 12/27/2021 [facility] 4:21 PM CDT LABORATORY-[facility] TR[facility] LAB[facility]ATORY CREATININE,URIN 0.47 g/L 12/27/2021 [facility] E 4:21 PM CDT [facility]AT[facility] ALBUMIN TO 98.3 (H) <30.0 mg/g 12/27/2021 [facility] CREATININE creat 4:21 PM CDT LABORATORY-[facility] RATIO,RAND UR TRAL LABORATORY Specimen Anatomical Collection Method Collection Time Receive d Time (Source) Location / / Volume Laterality Urine URINE SPECIMEN / Non-Blood / 12/27/2021 8:51 AM 12/27 8:51 Unknown Unknown CDT AM CDT Narrative [facility] - 12/27/2021 4:21 PM CDT If Albumin to Creatinine Ratio is elevated, consider the following: ? Elevations seen with incipient nephr opathy associated ?? with diabetes mellitus or hypertensi on. Stress, exercise, ?? hematuria, and urinary tract infecti on may also produce ?? elevated results. If clinically ania cated, confirm with ?? 24 Hour Albumin to Creatinine Ratio. Luiz Bullock MD URINE Performing Organization Address City/State/ZIP Code Phon e Number [facility] [address] [place] [address] LABORATORY-CENTRAL 2000 LABORATORY TSH WITH REFLEX (12/27/2021 8:48 AM CDT) athologist Signature TSH 2.41 0.35 - 4.94 12/30/2021 [facility] uIU/mL 1:48 PM CDT LABORATORY-CENTR AL LABORATORY Specimen Anatomical Collection Method / Collection Time Recei eloina Time (Source) Location / Volume Laterality Blood BLOOD SPECIMEN / Venipuncture / 12/27/2021 8:48 2021 8:48 Unknown Unknown AM CDT AM CDT Narrative [facility] 12/30/2021 1:48 PM CDT In Adults, TSH values between 5.00 and 10.00 uIU/ml do not necessarily indicate the presence of Hyp othyroidism. Correlation with clinical findings such as presence of goiter and/or Thyroperoxidase (TPO) Antibody ma y be helpful. For more information please refer to ATUL 20 ; 291: 228-238. Luiz Bullock MD CHEMISTRY Performing Organization Address City/[facility] Code Phon e Number [facility] [address] [place] [address] LABORATORY-CENTRAL 2000 LABORATORY (ABNORMAL) LIPID PANEL W REFLEX MEASURED LDL (12/27/2021 8:48 AM CDT) [facility] Method Time Signature CHOLESTEROL,TOTAL 128 100 - 199 12/27/2021 [facility] mg/dL 4:01 PM CDT [facility] TRIGLYCERIDES 89 <150 12/27/2021 [facility] mg/dL 4:01 PM CDT [facility] HDL CHOLESTEROL 36 (L) >40 mg/dL 12/27/2021 [facility] 4:01 PM CDT [facility] NON-HDL 92 <145 12/27/2021 [facility] CHOLESTEROL mg/dl 4:01 PM CDT [facility] CHOL/HDL RATIO 3.56 <4.50 12/27/2021 [facility] 4:01 PM CDT [facility] LDL CHOLESTEROL 74 <=130 12/27/2021 [facility] mg/dL 4:01 PM CDT [facility] VLDL CHOLESTEROL 18 <=30 12/27/2021 [facility] mg/dL 4:01 PM CDT [facility] PROVIDER ORDERED RANDOM 12/27/2021 [facility] STATUS 4:01 PM CDT [facility] Specimen Anatomical Collection Method / Collection Time Recei eloina Time (Source) Location / Volume Laterality Blood BLOOD SPECIMEN / Venipuncture / 12/27/2021 8:48 2021 8:48 Unknown Unknown AM CDT AM CDT Luiz Bullock MD CHEMISTRY Performing Organization Address City/[facility]/ZIP Code Phon e Number [facility] [address] [place] [address] LABORATORY-CENTRAL 1999 LABORATORY (ABNORMAL) HEMOGLOBIN A1C MONITORING (POCT) (12/27/2021 8:48 AM CDT) Analysis Performed At [facility] Signature HEMOGLOBIN A1C 8.0 (H) <=6.4 % 12/27/2021 [facility] MONITORING 9:21 AM CDT VAN (POCT) [facility] Specimen Anatomical Collection Method / Collection Time Recei eloina Time (Source) Location / Volume Laterality Blood BLOOD SPECIMEN / Venipuncture / 12/27/2021 8:48 2021 8:48 Unknown Unknown AM CDT AM CDT Narrative [facility] - 2021 9:21 AM CDT ? (<=6.9%) ? Indicates good control ? (7.0% to 7.9%) ? Indicates fa ir control ? (>=8.0%) ? Indicates poor control ?? NOTE: ??These thresholds are guideli teresa and ?individual targets may va ry. Falsely low levels may be seen with: Recent Transfusion, Recent Significant B lood Loss, Hemolytic Diseases, or Falsely elevated levels may be seen with : Untreated Anemias, Splenectomy ? Luiz Bullock MD CHEMISTRY Performing Organization Address City/State/ZIP Code Phon e Number [facility] [address] [place] [address] (ABNORMAL) BASIC METABOLIC PANEL (12/27/2021 8:48 AM CDT) Analysis Performed At [facility] Signature SODIUM 141 135 - 145 12/27/2021 [facility] mmol/L 4:00 PM CDT [facility] POTASSIUM 4.2 3.5 - 5.0 12/27/2021 [facility] mmol/L 4:00 PM CDT [facility] CHLORIDE 107 98 - 110 12/27/2021 [facility] mmol/L 4:00 PM CDT [facility] CO2,TOTAL 24 21 - 31 12/27/2021 [facility] mmol/L 4:00 PM CDT [facility] ANION GAP 10 5 - 18 12/27/2021 [facility] 4:00 PM CDT [facility] GLUCOSE 163 (H) 65 - 100 12/27/2021 [facility] mg/dL 4:00 PM CDT [facility] CALCIUM 9.1 8.5 - 10.5 12/27/2021 [facility] mg/dL 4:00 PM CDT [facility] BUN 27 (H) 8 - 25 12/27/2021 [facility] mg/dL 4:00 PM CDT [facility] CREATININE 1.15 0.72 - 12/27/2021 [facility] 1.25 mg/dL 4:00 PM CDT [facility] BUN/CREAT RATIO 23 (H) 10 - 20 12/27/2021 [facility] 4:00 PM CDT [facility] eGFR 62 (L) >90 12/27/2021 [facility] mL/min/1.7 4:00 PM CDT LABORATORY-[facility] 3m2 TRAL LABORATORY Comment: As of 2021, eGFR is calcu lated by the CKD-EPI creatinine equation without race adjustment. eGFR can be inf luenced by muscle mass, exercise, and diet. The reported eGFR is an estimation only and is only applicable if the renal function is stable. Specimen Anatomical Collection Method / Collection Time Recei eloina Time (Source) Location / Volume Laterality Blood BLOOD SPECIMEN / Venipuncture / 12/27/2021 8:48 2021 8:48 Unknown Unknown AM CDT AM CDT Luiz Bullock MD CHEMISTRY Performing Organization Address City/State/ZIP Code Phon e Number [facility] [address] [place] [address] [place] [address] LABORATORY-CENTRAL 2000 LABORATORY from Last 3 Months Insurance Payer Benefit Plan / Subscriber ID Effective Dates Phone Addre ss Type Group MEDICARE PART A MEDICARE PART A [id number] 2000-Present ATTN: CLAIMS - HB USE ONLY HB ONLY [address] [place] [address] MEDICARE PART B MEDICARE PART B [id number] 2004-Present ATTN: CLAIMS - HB USE ONLY HB ONLY [address] [place] [address] MEDICARE - PB MEDICARE PB [id number] 2004-Present ATT N: CLAIMS USE ONLY ONLY [address] [place] [address] [employer] [place] [id number] 2018-[place] [address] [address] [place] [address] [facility] Employer 05/18/[address] [facility] [place] [employer]/Joe (Home) [address] [phone] [address] ([place]) [place] [address] Sql Developer Relationship Specialty Start Date End Date Luiz Bullock MD PCP - General Family Practice 07/03/20 [address] [place] [address]
--- OUTSIDE RECORDS SUMMARY | 2022-03-26 22:28 | XMS_ITS | Encounter Summary ---
:1935 Author Organization [facility] Address [address] [place] [address] Care Team Providers Name Role Phone Unavailable Primary Care Provider Unavailable Encounter Details Date Type Department Care Team Description 04/04/2004 - Hospital Encounter HX RST C&RS FLOOR Meli Lloyd, 04/11/2004 PRACTICE M.DSimon Social History Tobacco Use Types [...] attend roman catholic or Patient refused 2021 spiritism services? Do [...]
--- OUTSIDE RECORDS SUMMARY | 2022-03-26 22:28 | XMS_ITS | Encounter Summary ---
:1935 Author Organization [facility] Address [address] [place] [address] Care Team Providers Name Role Phone Unavailable Primary Care Provider Unavailable Encounter Details Date Type Department Care Team Description 06/19/2004 Hospital Encounter HX NO MAPPING Social History [...] you attend advent or Patient refused 2021 protestant services? Do [...]
--- OUTSIDE RECORDS SUMMARY | 2022-03-26 22:28 | XMS_ITS | Encounter Summary ---
:1935 Author Organization [facility] Address [address] [place] [address] Care Team Providers Name Role Phone Unavailable Primary Care Provider Unavailable Encounter Details Date Type Department Care Team Description 04/09/2004 - Hospital Encounter HX RST C&RS FLOOR Meli Lloyd, 04/16/2004 PRACTICE M.DSimon Social History Tobacco Use Types [...] you attend sikhism or Patient refused 2021 hoahaoism services? Do [...]
--- OUTSIDE RECORDS SUMMARY | 2022-03-26 22:28 | XMS_ITS | Encounter Summary ---
:1935 Author Organization [facility] Address [address] [place] [address] Care Team Providers Name Role Phone Unavailable Primary Care Provider Unavailable Encounter Details Date Type Department Care Team Description 03/06/2004 - Hospital Encounter HX RST C&RS FLOOR Meli Lloyd, 03/13/2004 PRACTICE M.DSimon Social History Tobacco Use Types [...] you attend methodist or Patient refused 2021 lutheran services? Do you belong to any clubs [...]
--- OUTSIDE RECORDS SUMMARY | 2022-03-26 22:28 | XMS_ITS | Encounter Summary ---
:1935 Author Organization [facility] Address [address] [place] [address] Care Team Providers Name Role Phone Unavailable Primary Care Provider Unavailable Encounter Details Date Type Department Care Team Description 03/21/2004 - Hospital Encounter HX RST C&RS FLOOR Meli Lloyd, 03/28/2004 PRACTICE M.DSimon Social History Tobacco Use Types [...] you attend sikhism or Patient refused 2021 denominational services? Do [...]
--- OUTSIDE RECORDS SUMMARY | 2022-03-26 22:28 | XMS_ITS | Encounter Summary ---
:1935 Author Organization [facility] Address [address] [place] [address] Care Team Providers Name Role Phone Unavailable Primary Care Provider Unavailable Encounter Details Date Type Department Care Team Description 06/05/2004 - Hospital Encounter HX RST C&RS FLOOR Meli Lloyd, 06/12/2004 PRACTICE M.DSimon Social History Tobacco Use Types [...] you attend yarsanism or Patient refused 2021 restorationism services? Do [...]
--- OUTSIDE RECORDS SUMMARY | 2022-03-26 22:28 | XMS_ITS | Encounter Summary ---
:1935 Author Organization [facility] Address [address] [place] [address] Care Team Providers Name Role Phone Unavailable Primary Care Provider Unavailable Encounter Details Date Type Department Care Team Description 05/22/2004 - Hospital Encounter HX RST C&RS FLOOR Meli Lloyd, 05/29/2004 PRACTICE M.DSimon Social History Tobacco Use Types [...] you attend baptism or Patient refused 2021 judaism services? Do [...]
--- OUTSIDE RECORDS SUMMARY | 2022-03-26 22:28 | XMS_ITS | Encounter Summary ---
:1935 Author Organization [facility] Address [address] [place] [address] Care Team Providers Name Role Phone Unavailable Primary Care Provider Unavailable Encounter Details Date Type Department Care Team Description 03/07/2004 - Hospital Encounter HX RST [id number] CRS&GEN 03/12/2004 VIKTORIYA Social History Tobacco Use Types Packs/Day Years [...] you attend orthodoxy or Patient refused 2021 restorationism services? Do [...]
[2022-03-26 22:39] LABS: Slide Review Reflex Yes; White Blood Count* 49.61 K/uL (4.50-11.00)
[2022-03-26 23:06] LABS: Slide Review Acceptable Review (Acceptable)
[2022-03-26 23:13] VITALS: BP 132/52; PULSE 66; O2SAT 95
[2022-03-26 23:29] LABS: Albumin* 3.3 g/dL (3.3-5.0)
[2022-03-26 23:30] LABS: Chloride* 108 mmol/L (96-114); Sodium* 137 mmol/L (135-149)
[2022-03-26 23:31] LABS: INR 0.99 (0.91-1.10); Prothrombin Time 13.6 Seconds
[2022-03-26 23:32] LABS: Aspartate Amino Transferase* 68 U/L (12-35); Bilirubin Direct* 0.1 mg/dL (0.0-0.5); Bilirubin Total* 0.2 mg/dL (0.1-1.5); Blood Urea Nitrogen* 17 mg/dL (7-30); Carbon Dioxide* 23 mmol/L (20-32); Estimated Glomerular Filt Rate 73 ml/min; Partial Thromboplastin Time* 31 Seconds (23-33); Total Protein* 5.4 g/dL (6.0-8.3)
[2022-03-26 23:33] LABS: Alanine Aminotransferase* 22 U/L (4-50); Alkaline Phosphatase* 93 U/L (40-150); Calcium* 8.4 mg/dL (8.4-10.6); Glucose* 186 mg/dL (60-115)
--- NOTE | 2022-03-27 01:14 | ED_ITS ---
HPI - General Adult General Chief complaint: Skin/Abscess/Foreign Body Stated complaint: Right Arm possible cellulitis Time Seen by Provider: 03/26/22 21:52 History of Present Illness HPI narrative: 86 year-old man presenting with I believe his daughter to the emergency department with concern of inflammation and a little discomfort in his right arm. Has just spent the last 4 days in hospital in [place] after having had a what sounds like rather serious gastrointestinal lower gastrointestinal bleed. Hemoglobin dropped to low sevens. Ultimately required surgical intervention for a diverticular bleed. Did have some Angiocath approach he reports. He has not had a fever. He is not feeling short of breath. Did have a just twinge of chest discomfort earlier. Is not complaining of abdominal pain. Stools have been dark but not unexpected. He would like to have his hemo globin checked. He reports having had 4 IVs in the right arm. There is some difficult access various times. He reports later that if he really had a good deal of discomfort in this right arm during good portion of his stay in the hospital and that any time there was an injection given there it caused more pain. My initial assessment is that the arm is less cellulitic and more mildly inflamed. He has been discontinued on his Eliquis for atrial fibrillation given this bleed. He is still is taking low-dose aspirin. He reports being considered for a Watchman. Underlying history also of CLL with chronically elevated white count. Recalls last at about 60,000 Related Data Home Medications Medication Instructions Recorded Confirmed atorvastatin 20 mg tablet mg 03/26/22 carvedilol 25 mg tablet mg 03/26/22 empagliflozin 10 mg tablet mg 03/26/22 (Jardiance) omeprazole 20 mg capsule,delayed mg 03/26/22 release spironolactone 25 mg tablet mg 03/26/22 valsartan 320 mg tablet mg 03/26/22 Allergies Allergy/AdvReac Type Severity Reaction Status Date / Time No Known Drug Allergies Allergy Verified 03/26/22 21:52 Review of Systems Status of ROS: Reports: 10 or more systems reviewed and unremarkable except as noted in History and below [facility] Social History Smoking Status: Former smoker What tobacco products do you use: cigarettes Smoking quit date/years: >15 years ago Do you use any of these nicotine containing products: None Second hand tobacco smoke exposure: No How often do you have a drink containing alcohol: monthly or less How often do you have six or more drinks on one occasion: Never AUDIT-C Alcohol total score: 1 Non-prescribed substance use: denies use Exam Narrative: Exam Narrative: Very pleasant. Talkative. In no distress. Cranial nerves 2-12 intact. Skin is warm and dry. The right arm in question has mild edema about the forearm and the lower upper arm. The distal aspect of the bicep has mild calor and discomfort. There is mild erythema diffusely as well in areas as mentioned. There is no loss of skin architecture. Strong and equal radial pulses. Well perfused peripherally Breathing easily. Lungs are clear. Abdomen is soft and nontender Cardiovascular while distant, appears to be in regular rate and rhythm. Const: Vital Signs, click to edit/add: Vital Signs - 24 hr 03/26/22 21:40 03/26/22 22:10 03/26/22 23:13 Temperature 98.1 F Pulse Rate [Pulse Oximeter] 84 80 66 Respiratory Rate 18 Blood Pressure [Le ft Upper Arm] 174/68 H 127/56 L 132/52 L Pulse Oximetry 96 95 95 Oxygen Delivery Me thod Room Air Room Air Room Air Documenting provider has reviewed patient's vital signs: yes Course Vital Signs Vital signs: Initial Vital Signs Temperature 98.1 F 03/26/22 21:40 Temperature Source Temporal Artery Scan 03/26/22 21:40 Pulse Rate 84 03/26/22 21:40 Respiratory Rate 18 03/26/22 21:40 Blood Pressure 174/68 H 03/26/22 21:40 Blood Pressure Mean 103 03/26/22 21:40 Blood Pressure Position Sitting 03/26/22 21:40 Pulse Oximetry 96 03/26/22 21:40 Oxygen Delivery Method 03/26/22 21:40 Vital Signs Temperature 98.1 F 03/26/22 21:40 Pulse Rate 84 03/26/22 21:40 Respiratory Rate 18 03/26/22 21:40 Blood Pressure 174/68 H 03/26/22 21:40 Pulse Oximetry 96 03/26/22 21:40 Oxygen Delivery Method 03/26/22 21:40 Temperature 98.1 F 03/26/22 21:40 Pulse Rate 66 03/26/22 23:13 Respiratory Rate 18 03/26/22 21:40 Blood Pressure 132/52 L 03/26/22 23:13 Pulse Oximetry 95 03/26/22 23:13 Oxygen Delivery Method 03/26/22 23:13 Medical Decision Making MDM Narrative Medical decision making narrative: Will be collecting CBC. Thank very reasonable to check his hemoglobin and hematocrit. I expect white count to be elevated. I am less worried about cellulitis in this arm and more about potential clot which would definitely complicate matters in this case. Ultrasound of right upper requested On exam does not appear to be in atrial fibrillation today. I do request an EKG which confirms this. Labs as expected and still improving hemoglobin. Findings of ultrasound results discussed with tech and later with radiologist. Read as below Soft tissue: Unremarkable. IMPRESSION: Superficial thrombus within the cephalic vein. No deep venous thrombosis identified. Thankfully not in atrial fibrillation today though regardless recent significant GI bleed still would be a contraindication for Eliquis. Furthermore this is superficial thrombus and sounds to have been provoked. Lab Data Labs: Lab Results 03/26/22 03/26/22 03/26/22 Range/Units 22:16 22:16 22:16 WBC 49.61 H* (4.50-11.00) K/uL RBC 2.97 L (4.30-5.90) m/uL Hgb 8.8 L (13.5-17.5) gm/dL Hct 27.8 L (37.0-53.0) % MCV 94 (80-100) fL MCH 30 (26-34) pg MCHC 32 (32-36) gm/dL RDW Coeff of Ravi 14.3 (11.5-15.5) % Plt Count 192 (140-440) K/uL Neut % (Auto) 14.8 L (42.0-72.0) % Lymph % (Auto) 82.2 H (20-44) % Hall % (Auto) 2.1 (0.0-11.0) % Eos % (Auto) 0.6 (0.0-7.0) % Baso % (Auto) 0.1 (0.0-3.0) % Neut # (Auto) 7.30 H (1.7-7.0) K/uL Lymph # (Auto) 40.80 H (0.90-2.90) K/uL Hall # (Auto) 1.00 H (0.00-0.90) K/UL Eos # (Auto) 0.30 (0.00-0.50) K/uL Baso # (Auto) 0.00 (0.00-0.30) K/uL Abs Immat Gran (auto) 0.10 (0.00-0.30) K/uL Imm/Tot Granulo (auto) 0.2 % Diff Slide Review Acceptable Review (Acceptable) INR 0.99 (0.91-1.10) APTT 31 (23-33) Seconds Sodium 137 (135-149) mmol/L Potassium 4.0 (3.6-5.1) mmol/L Chloride 108 (96-114) mmol/L Carbon Dioxide 23 (20-32) mmol/L BUN 17 (7-30) mg/dL Creatinine 1.0 (0.5-1.5) mg/dL Estimated Creat Clear 51.30 Estimated GFR 73 ml/min Glucose 186 H (60-115) mg/dL Calcium 8.4 (8.4-10.6) mg/dL Total Bilirubin 0.2 (0.1-1.5) mg/dL Direct Bilirubin 0.1 (0.0-0.5) mg/dL AST 68 H (12-35) U/L ALT 22 (4-50) U/L Alkaline Phosphatase 93 (40-150) U/L Total Protein 5.4 L (6.0-8.3) g/dL Albumin 3.3 (3.3-5.0) g/dL ECG Data Attestation: I personally reviewed and interpreted this ECG as follows: (Normal sinus rate of 67 appears to be an interventricular ventricular conduction delay not qualifying for right bundle, otherwise no acute ischemic changes) Discharge Plan Discharge Clinical Impression: Acute cephalic vein thrombosis Patient Disposition: Home w/ Parent or Adult Condition: Stable Additional Instructions: I would consider placing warm moist packs a couple of times daily over the next few days on your right arm. Watch for persistent and increasing redness, swelling, tension, heat, pain. Be seen also of course for increasing shortness of breath or chest pain. It is okay to keep taking your aspirin. Today your hemoglobin was 8.8 and hematocrit was 27.8. Your white blood [place] [address] with a lymphocytic predominance of course. Prescriptions: No Action carvedilol 25 mg tablet atorvastatin 20 mg tablet spironolactone 25 mg tablet valsartan 320 mg tablet omeprazole 20 mg capsule,delayed release(DR/EC) Label Comments: TAKE 1 CAPSULE BY MOUTH TWICE DAILY Jardiance 10 mg tablet Follow Up/Referrals: Luiz Bullock MD [Primary Care Provider] - Stand Alone Forms: [employer] Info Instructions
== END 2022-03-27 00:19 | disposition home or self-care (01) ==
PROVIDERS: Emergency Provider Family Medicine; PCP Family Medicine
DX: I82.611 Acute embolism and thrombosis of superficial veins of right upper extremity (principal)
CPT/HCPCS: 36415; 80048; 80076; 85025; 85610; 85730; 93005; 93971; 99283; 99284

== ENCOUNTER 2022-08-27 09:58 | Inpatient (IN) | payer MEDICARE, BC, SELFPAY ==
[2022-08-27] VITALS (13 sets, daily range): BP systolic 90–133; BP diastolic 39–55; PULSE 68–82; RESP 12–18; TEMP 36.5–37; O2SAT 95–98; BMI 30.4; BMI 28.6
--- NOTE | 2022-08-27 11:27 | ED_ITS ---
HPI - Weakness General Time Seen by Provider: 11:28 Date Seen: 08/27/22 Chief complaint: Weakness Stated complaint: Fever, diarrhea, low BP Time Seen by Provider: 08/27/22 11:08 Source: patient, family and RN notes reviewed Mode of arrival: wheelchair Limitations: no limitations History of Present Illness HPI Narrative: Patient is an 86-year-old male presenting to the ER with complaint of fever, abdominal pain and nonbloody diarrhea for 4 days. He is unable to eat or drink anything, they stated just runs through him. Thus he has diminished his oral intake. He has had temperatures up to 100-101 range. He does have a history of diverticulitis. Again the diarrhea is nonbloody. There is no nausea or vomiting. He has no history of C difficile colitis, no recent antibiotic use. He has not traveled anywhere. They have done multiple COVID tests at home which have been negative. He did take his medications for his blood pressure and heart this morning and blood pressure went low. On arrival his blood pressure was 90/54. He has been laying down in the room for while before being seen and he has a systolic blood pressure of 128 which cycled while I was in there. Complaint: generalized weakness (With underlying diarrhea and symptoms above) Related Data Home Medications Medication Instructions Recorded Confirmed atorvastatin 20 mg tablet mg 03/26/22 carvedilol 25 mg tablet mg 03/26/22 empagliflozin 10 mg tablet mg 03/26/22 (Jardiance) omeprazole 20 mg capsule,delayed mg 03/26/22 release spironolactone 25 mg tablet mg 03/26/22 valsartan 320 mg tablet mg 03/26/22 Allergies Allergy/AdvReac Type Severity Reaction Status Date / Time No Known Drug Allergies Allergy Verified 08/27/22 13:19 Review of Systems Status of ROS: Reports: 10 or more systems reviewed and unremarkable except as noted in History and below [facility] Medical History (Updated 08/27/22 @ 14:09 by Sally Guy MD) Atrial fibrillation ?I48.91 - Unspecified atrial fibrillation (ICD-10) Social History Smoking Status: Former smoker What tobacco products do you use: cigarettes Smoking quit date/years: >15 years ago Do you use any of these nicotine containing products: None Second hand tobacco smoke exposure: No How often do you have a drink containing alcohol: monthly or less How often do you have six or more drinks on one occasion: Never AUDIT-C Alcohol total score: 1 Non-prescribed substance use: denies use Exam Const: Vital Signs, click to edit/add: Vital Signs - 24 hr 08/27/22 10:18 08/27/22 11:32 Temperature 97.8 F Pulse Rate [Right Pulse Oximeter] 78 Respiratory Rate 18 Blood Pressure [Ri ght Upper Arm] 90/54 L Pulse Oximetry 97 96 Oxygen Delivery Me thod Room Air Documenting provider has reviewed patient's vital signs: yes Common normals: no apparent distress, oriented x3, no limitations and alert General appearance: cooperative, comfortable, well kempt and frail appearing Nutritional appearance: thin HENMT: Common normals: normocephalic, head/scalp atraumatic, hearing grossly normal bilaterally, external ears normal and external nose normal Head and scalp: normocephalic and atraumatic Nose: external nose normal External ear: external ears normal Other: Very dry tongue and oral mucosa without any lesions or trauma. Eye: Common normals: PERRL, EOMs intact bilaterally, conjunctivae normal and no scleral icterus Conjunctiva: conjunctiva(e) normal Pupil: PERRL Neck & C-Spine: Common normals: full ROM, no lymphadenopathy, supple, no meningeal signs, no JVD and thyroid normal Thyroid: thyroid normal Resp: Common normals: normal respiratory effort, no retractions, no use of accessory muscles and clear to auscultation bilaterally Auscultation: clear to auscultation bilaterally Cardio: Common normals: no JVD, regular rate, regular rhythm, S1 normal heart sound, S2 normal heart sound, no gallops, no clicks and no murmurs Rate: regular rate Rhythm: regular rhythm Heart sounds: S1 normal and S2 normal GI: Common normals: soft to palpation and no hepatosplenomegaly Inspection: normal to inspection Auscultation: hyperactive bowel sounds Palpation: soft and no hepatosplenomegaly Other: No tenderness or masses noted at this time. Extremity: Common normals: full ROM, no calf tenderness and no pedal edema Neuro: Common normals: oriented x3 and moves all extremities Sensorium/orientation: alert Meningeal signs: no meningeal signs Psych: Appearance: well kempt Course Course Hospital Course: 86-year-old male with reported fevers, nonbloody diarrhea and abdominal pain with negative home COVID test. Differential could be colitis both infectious and noninfectious etiologies, possible diverticulitis. He is certainly dehydrated based on clinical exam, will initiate IVF bolus with NS but need to be cautious. Given review of his medications, would presume that he has history of CHF and do not know current EF/heart function. Will be obtaining labs, CT of abd/pelvis with IV contrast if possible. Reevaluation(s) Reevaluation #1: Was in reviewing with patient and family the plan for admission. His current systolic blood pressures 99. He has completed 1 L of fluid. No evidence of any fluid overload, thus, with lower blood pressure, will initiate another L of LR over 2 hours. Time: 14:05 Consultations Consultation #1: Have spoken with Dr. Love our hospitalist and reviewed case. She will accept management of this patient. We did talk about stool studies and I have added these on. Time: 14:00 Vital Signs Vital signs: Initial Vital Signs Temperature 97.8 F 08/27/22 10:18 Temperature Source Temporal Artery Scan 08/27/22 10:18 Pulse Rate 78 08/27/22 10:18 Pulse Rhythm Regular 08/27/22 10:18 Respiratory Rate 18 08/27/22 10:18 Blood Pressure 90/54 L 08/27/22 10:18 Blood Pressure Mean 66 08/27/22 10:18 Blood Pressure Position Sitting 08/27/22 10:18 Pulse Oximetry 97 08/27/22 10:18 Oxygen Delivery Method Room Air 08/27/22 10:18 Vital Signs Temperature 97.8 F 08/27/22 10:18 Pulse Rate 78 08/27/22 10:18 Respiratory Rate 18 08/27/22 10:18 Blood Pressure 90/54 L 08/27/22 10:18 Pulse Oximetry 97 08/27/22 10:18 Oxygen Delivery Method Room Air 08/27/22 10:18 Temperature 97.8 F 08/27/22 10:18 Pulse Rate 78 08/27/22 10:18 Respiratory Rate 18 08/27/22 10:18 Blood Pressure 90/54 L 08/27/22 10:18 Pulse Oximetry 96 08/27/22 11:32 Oxygen Delivery Method Room Air 08/27/22 10:18 MDM - Weakness Lab Data Attestation: I reviewed the patient's lab results. Labs: Lab Results 08/27/22 08/27/22 Range/Units 11:50 12:00 WBC 27.01 H* (4.50-11.00) K/uL RBC 4.19 L (4.30-5.90) m/uL Hgb 10.2 L (13.5-17.5) gm/dL Hct 32.9 L (37.0-53.0) % MCV 79 L (80-100) fL MCH 24 L (26-34) pg MCHC 31 L (32-36) gm/dL RDW Coeff of Ravi 20.3 H (11.5-15.5) % Plt Count 182 (140-440) K/uL Neut % (Auto) 22.2 L (42.0-72.0) % Lymph % (Auto) 72.8 H (20-44) % [place] % (Auto) 4.9 (0.0-11.0) % Eos % (Auto) 0.0 (0.0-7.0) % Baso % (Auto) 0.0 (0.0-3.0) % Neut # (Auto) 6.00 (1.7-7.0) K/uL Lymph # (Auto) 19.70 H (0.90-2.90) K/uL [place] # (Auto) 1.30 H (0.00-0.90) K/UL Eos # (Auto) 0.00 (0.00-0.50) K/uL Baso # (Auto) 0.00 (0.00-0.30) K/uL Diff Slide Review Acceptable Review (Acceptable) Sodium 133 L (135-149) mmol/L Potassium 4.1 (3.6-5.1) mmol/L Chloride 104 (96-114) mmol/L Carbon Dioxide 18 L (20-32) mmol/L BUN 42 H (7-30) mg/dL Creatinine 1.9 H (0.5-1.5) mg/dL Estimated Creat Clear 27.00 Estimated GFR 34 ml/min Glucose 199 H (60-115) mg/dL Lactate 1.4 (0.5-1.9) mmol/L Calcium 8.9 (8.4-10.6) mg/dL Total Bilirubin 0.6 (0.1-1.5) mg/dL AST 22 (12-35) U/L ALT 17 (4-50) U/L Alkaline Phosphatase 84 (40-150) U/L C-Reactive Protein 20.6 H (0.5-1.0) mg/dL Total Protein 5.9 L (6.0-8.3) g/dL Albumin 3.4 (3.3-5.0) g/dL SARS-CoV-2 (PCR) Negative SARS-CoV-2 (Negative) Imaging Data CT scan - abdomen: Attestation: I have reviewed the pertinent imaging results. Radiologist's impression: Patient: LIZA BOWEN Facility:?[facility] Patient ID:?[id number] Site Patient ID:?[id number]. Site :?[id number] Study:?CT Abdomen/Pelvis 98CC ISOVUE 370-08/27/2022 1:21:33 PM Ordering Physician:Kelvin Zavala Final Report: INDICATION: Fever, diarrhea and abdominal pain. History of CLL. History of colon resection and cholecystectomy. COMPARISON: None TECHNIQUE: CT examination of the abdomen and pelvis was performed following the uneventful intravenous administration of 98 cc of Isovue 370. Thin section axial images wer e obtained from the lung bases through the pubic symphysis. Oral contrast was not administered. Please note that all CT scans at this facility use dose modulation, iterative reconstruction, and/or weight-based dosing when appropriate to reduce radiation dose to as low as reasonably achievable. FINDINGS: LUNG BASES: Moderate reticular opacities consistent with interstitial fibrosis.Enlarged heart. Small hiatal hernia LIVER/BILIARY SYSTEM:The liver is normal in size and configuration. There is no focal mass and there is no intra- or extra hepatic biliary ductal dilatation.Absent gallbladder ADRENALS: Normal KIDNEYS, URETERS and BLADDER:Normal size kidneys. A few tiny low-density lesions are noted likely benign. No obstructive uropathy. The bladder appears normal as visualized. SPLEEN:Normal appearance. PANCREAS: Appears normal. RETROPERITONEUM and MESENTERY: There is no mass, adenopathy or aortic aneurysm. Extensive atherosclerotic vascular calcifications without liza aneurysm f ormation GASTROINTESTINAL SYSTEM: Marked thickening and hyperemia of distal and terminal small bowel consistent with ileitis. There also patchy areas of colonic thickening most notably the cecum, a portion of the ascending colon and the sigmoid and rectum. This is consistent with colitis and proctitis. There is no mechanical obstruction PELVIS: No mass, adenopathy or free fluid. OSSEOUS STRUCTURES and ABDOMINAL WALL: There is an age-appropriate appearance of the osseous structures.No significant abdominal wall defect. OTHER: No free fluid or free air. MISCELLANEOUS: Unusual fat containing mass in the transverse mesocolon right behind the midtransverse colon measuring 3.5 x 2.5 centimeters. A 2nd calcified mass noted in the omentum on the right measuring 2.6 centimeters abutting the co julia. I favor that these are due to one of the benign entities that cause fat necrosis of the omentum and mesentery. This has some overlap imaging features with gastrointestinal stromal tumor. Appropriate follow-up advised IMPRESSION: 1. Marked thickening and hyperemia of the distal and terminal small bowel consistent with ileitis. Patchy areas of colonic thickening and rectal thickening consistent with colitis and proctitis. No obstruction. No intramural air, no free air or collection. 2. There are 2 unusual fat containing masses as described above. I favor that these are due to omental areas of benign fat necrosis though there are some overlap imaging features with gastrointestinal stromal tumor. Appropriate follow up is advised. 3. Basilar interstitial fibrosis. 4. There are no findings of CLL on this exam. 5. Other incidental findings as above Please note that all CT scans at this facility use dose modulation, iterative reconstruction, and/or weight-based dosing when appropriate to reduce radiation dose to as low as reasonably achievable. Dictated by Brian Luke MD @ 08/27/2022 1:51:14 PM (Electronic Signature) Discharge Plan Discharge Clinical Impression: Acute proctitis, Colitis, Ileitis Patient Disposition: Admitted As Inpatient Condition: Unchanged Prescriptions: No Action carvedilol 25 mg tablet atorvastatin 20 mg tablet spironolactone 25 mg tablet valsartan 320 mg tablet omeprazole 20 mg capsule,delayed release(DR/EC) Patient Comments: TAKE 1 CAPSULE BY MOUTH TWICE DAILY Jardiance 10 mg tablet Follow Up/Referrals: Luiz Bullock MD [Primary Care Provider] -
--- NOTE | 2022-08-27 11:32 | CRLHL7_ITS ---
For Patients: As a result of the 21st Century Cures Act, medical imaging exams and procedure reports are released immediately into your electronic medical record. You may view this report before your referring provider. If you have questions, please contact your health care provider. INDICATION: Fever, diarrhea and abdominal pain. History of CLL. History of colon resection and cholecystectomy. COMPARISON: None TECHNIQUE: CT examination of the abdomen and pelvis was performed following the uneventful intravenous administration of 98 cc of Isovue 370. Thin section axial images were obtained from the lung bases through the pubic symphysis. Oral contrast was not administered. Please note that all CT scans at this facility use dose modulation, iterative reconstruction, and/or weight-based dosing when appropriate to reduce radiation dose to as low as reasonably achievable. FINDINGS: LUNG BASES: Moderate reticular opacities consistent with interstitial fibrosis.Enlarged heart. Small hiatal hernia LIVER/BILIARY SYSTEM:The liver is normal in size and configuration. There is no focal mass and there is no intra- or extra hepatic biliary ductal dilatation.Absent gallbladder ADRENALS: Normal KIDNEYS, URETERS and BLADDER:Normal size kidneys. A few tiny low-density lesions are noted likely benign. No obstructive uropathy. The bladder appears normal as visualized. SPLEEN:Normal appearance. PANCREAS: Appears normal. RETROPERITONEUM and MESENTERY: There is no mass, adenopathy or aortic aneurysm. Extensive atherosclerotic vascular calcifications without liza aneurysm formation GASTROINTESTINAL SYSTEM: Marked thickening and hyperemia of distal and terminal small bowel consistent with ileitis. There also patchy areas of colonic thickening most notably the cecum, a portion of the ascending colon and the sigmoid and rectum. This is consistent with colitis and proctitis. There is no mechanical obstruction PELVIS: No mass, adenopathy or free fluid. OSSEOUS STRUCTURES and ABDOMINAL WALL: There is an age-appropriate appearance of the osseous structures.No significant abdominal wall defect. OTHER: No free fluid or free air. MISCELLANEOUS: Unusual fat containing mass in the transverse mesocolon right behind the midtransverse colon measuring 3.5 x 2.5 centimeters. A 2nd calcified mass noted in the omentum on the right measuring 2.6 centimeters abutting the colon. I favor that these are due to one of the benign entities that cause fat necrosis of the omentum and mesentery. This has some overlap imaging features with gastrointestinal stromal tumor. Appropriate follow-up advised IMPRESSION: 1. Marked thickening and hyperemia of the distal and terminal small bowel consistent with ileitis. Patchy areas of colonic thickening and rectal thickening consistent with colitis and proctitis. No obstruction. No intramural air, no free air or collection. 2. There are 2 unusual fat containing masses as described above. I favor that these are due to omental areas of benign fat necrosis though there are some overlap imaging features with gastrointestinal stromal tumor. Appropriate follow up is advised. 3. Basilar interstitial fibrosis. 4. There are no findings of CLL on this exam. 5. Other incidental findings as above Please note that all CT scans at this facility use dose modulation, iterative reconstruction, and/or weight-based dosing when appropriate to reduce radiation dose to as low as reasonably achievable. Dictated by Brian Luke MD @ 08/27/2022 1:51:14 PM (Electronically Signed)
[2022-08-27] MEDS: 0.9 % SODIUM CHLORIDE 1000 ml 1,000 ML 500 ML IV (12:10)
[2022-08-27 12:14] LABS: Lactate* 1.4 mmol/L (0.5-1.9)
[2022-08-27 12:18] LABS: Hematocrit 32.9 % (37.0-53.0); Hemoglobin* 10.2 gm/dL (13.5-17.5); Immature Granulocytes Pct Auto 0.1 %; Lymphocytes Percent Auto 72.8 % (20-44); Mean Corpuscular HGB Conc 31 gm/dL (32-36); Mean Corpuscular Hemoglobin 24 pg (26-34); Mean Corpuscular Volume 79 fL (80-100); Monocytes Percent Auto 4.9 % (0.0-11.0); Neutrophils Percent Auto 22.2 % (42.0-72.0); Platelet Count* 182 K/uL (140-440); RDW Coefficient of Variation % 20.3 % (11.5-15.5); Red Blood Count 4.19 m/uL (4.30-5.90)
[2022-08-27 12:22] LABS: Slide Review Reflex Yes; White Blood Count* 27.01 K/uL (4.50-11.00)
--- NOTE | 2022-08-27 12:23 | PC.NURSE ---
Lab called with critical lab value WBC 27.01, RN notified.
[2022-08-27 12:29] LABS: SARS PCR* Negative SARS-CoV-2 (Negative)
[2022-08-27 12:52] LABS: Albumin* 3.4 g/dL (3.3-5.0); Chloride* 104 mmol/L (96-114)
[2022-08-27 12:53] LABS: Potassium* 4.1 mmol/L (3.6-5.1); Sodium* 133 mmol/L (135-149)
[2022-08-27 12:55] LABS: Alkaline Phosphatase* 84 U/L (40-150); Aspartate Amino Transferase* 22 U/L (12-35); Bilirubin Total* 0.6 mg/dL (0.1-1.5); Carbon Dioxide* 18 mmol/L (20-32); Creatinine* 1.9 mg/dL (0.5-1.5); Estimated Glomerular Filt Rate 34 ml/min; Total Protein* 5.9 g/dL (6.0-8.3)
[2022-08-27 12:56] LABS: Alanine Aminotransferase* 17 U/L (4-50); Blood Urea Nitrogen* 42 mg/dL (7-30); Calcium* 8.9 mg/dL (8.4-10.6); Glucose* 199 mg/dL (60-115)
[2022-08-27 13:01] LABS: Slide Review Acceptable Review (Acceptable)
[2022-08-27 13:29] LABS: C Reactive Protein* 20.6 mg/dL (0.5-1.0)
--- NOTE | 2022-08-27 14:12 | PM.IMHP1 ---
Hospitalist- H&P: HPI History of Present Illness Date Seen: 08/27/22 Chief complaint: Fever, diarrhea, low BP Narrative: ADMISSION HISTORY AND PHYSICAL - HOSPITALIST Chief Complaint: acute diarrhea/fever HPI: Mr. Kristofer Garcia is a pleasant 86 y.o. male who presents to our ED with c/o of diarrhea x 4 days, fever, abdominal cramping. poor intake; mild nausea, no vomiting. no travel. no hx of cdiff. 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 Also has a history of diverticular lower bleed requiring 2 clips and ultimately a sigmoid resection. His daughter lives with him. Granddaughter has had similar symptoms. She works at a local college. 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 ER COURSE: fluids, labs, CT CODE STATUS: Full code EMERGENCY CONTACT PLAN: Daughter Adriane, last for of her cell phone is [phone]. Daughter, Danielle, lives with him and her last for for cell phone 01/18/2004. I've updated the PFSH, medications and allergies in the [facility] tabs. INVESTIGATIONS: LABS/MICRO/ECG/IMAGING Afebrile Blood pressure 90/54 upon arrival to the ED, increased to 120 systolic, than back to the 90s requiring resuscitation with another L of fluid. Lactate was normal. Pulse 78 Respiratory rate 18 Pulse ox 97 Weight 90.7 kilos CBC reflects a elevated leukocyte count of 73% of 27,000. Known CLL. Hemoglobin 10.2 Platelet count 182 Sodium is 133 Creatinine is 1.9, BUN 42 Glucose 199 CRP 20.6 Negative COVID [address] abdomen pelvis: 1. Marked thickening and hyperemia of the distal and terminal small bowel consistent with ileitis. Patchy areas of colonic thickening and rectal thickening consistent with colitis and proctitis. No obstruction. No intramural air, no free air or collection. 2. There are 2 unusual fat containing masses as described above. I favor that these are due to omental areas of benign fat necrosis though there are some overlap imaging features with gastrointestinal stromal tumor. Appropriate follow up is advised. REVIEW OF SYSTEMS: 12-point ROS completed with patient and negative unless otherwise stated in HPI or below. PHYSICAL EXAM: CONSTITUTIONAL: Dry lips, dry oropharynx. Knows his history quite well. Alert and oriented. VITAL SIGNS: see record. HEENT: Normocephalic, atraumatic. PERRL, EOMI, conjunctivae pink, no scleral icterus. Ears and nose externally normal. Pharynx dry. NECK: No JVD. No carotid bruit, no thyromegaly, no adenopathy. CHEST: Clear to auscultation bilaterally HEART: S1 and S2 normal. No harsh murmurs. Edema minimal ABDOMEN: Nontender. Distant bowel sounds. No peritoneal signs. MUSCULOSKELETAL: No gross joint deformity or swelling. NEURO: Cranial nerves intact. Grossly intact. No asymmetric findings. SKIN: No rashes, petechiae, concerning changes PSYCHIATRIC: Euthymic. ADMIT TO MEDSURG: FLOOR CARE DVT: Lovenox; holding eliquis and aspirin intentionally GI: PPI, clears Time spent: 70 minutes examining patient, conferring with family and patient, care staff, developing care plan [facility] Medical History (Updated 08/27/22 @ 15:45 by Mag Love MD) Atrial fibrillation ?I48.91 - Unspecified atrial fibrillation (ICD-10) Blood clot of artery under arm ?I74.2 - Embolism and thrombosis of arteries of the upper extremities (ICD-10) CAD (coronary artery disease) ?I25.10 - Atherosclerotic heart disease of [place] coronary artery without angina pectoris (ICD-10) CLL (chronic lymphocytic leukemia) ?C91.10 - Chronic lymphocytic leukemia of B-cell type not having achieved remission (ICD-10) Diabetic retinopathy ?E11.319 - Type 2 diabetes mellitus with unspecified diabetic retinopathy without macular edema (ICD-10) 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 - Dissection of other specified artery (ICD-10) Diverticulosis ?K57.90 - Diverticulosis of intestine, part unspecified, without perforation or abscess without bleeding (ICD-10) Essential hypertension ?I10 - Essential (primary) hypertension (ICD-10) GERD (gastroesophageal reflux disease) ?K21.9 - Gastro-esophageal reflux disease without esophagitis (ICD-10) Hyperlipidemia ?E78.5 - Hyperlipidemia, unspecified (ICD-10) Interstitial lung disease ?J84.9 - Interstitial pulmonary disease, unspecified (ICD-10) ROSA ISELA (obstructive sleep apnea) ?G47.33 - Obstructive sleep apnea (adult) (pediatric) (ICD-10) Type 2 diabetes mellitus ?E11.9 - Type 2 diabetes mellitus without complications (ICD-10) Surgical History (Updated 08/27/22 @ 14:32 by Mag Love MD) H/O colectomy ?Z90.49 - Acquired absence of other specified parts of digestive tract (ICD-10) History of atherectomy ?Z98.890 - Other specified postprocedural states (ICD-10) History of laparoscopic cholecystectomy ?Z90.49 - Acquired absence of other specified parts of digestive tract (ICD-10) Patella fracture ?S82.009A - Unspecified fracture of unspecified patella, initial encounter for closed fracture (ICD-10) Social History Smoking Status: Former smoker What tobacco products do you use: cigarettes Smoking quit date/years: >15 years ago Do you use any of these nicotine containing products: None Second hand tobacco smoke exposure: No How often do you have a drink containing alcohol: monthly or less How often do you have six or more drinks on one occasion: Never AUDIT-C Alcohol total score: 1 Non-prescribed substance use: denies use Meds Home Medications and Allergies Home Medications Medication Instructions Recorded Confirmed Type atorvastatin 20 mg tablet 20 mg PO DAILY 03/26/22 08/27/22 History carvedilol 25 mg tablet 25 mg PO BID 03/26/22 08/27/22 History omeprazole 20 mg capsule,delayed 20 mg PO BID 03/26/22 08/27/22 History release spironolactone 25 mg tablet 25 mg PO DAILY 03/26/22 08/27/22 History valsartan 320 mg tablet 320 mg PO DAILY 03/26/22 08/27/22 History apixaban 2.5 mg tablet (Eliquis) 2.5 mg PO BID 08/27/22 08/27/22 History ascorbic acid (vitamin C) 500 mg 500 mg PO DAILY 08/27/22 08/27/22 History tablet aspirin 81 mg chewable tablet 1 tab PO MOTH 08/27/22 08/27/22 History empagliflozin 25 mg tablet 25 mg PO DAILY 08/27/22 08/27/22 History (Jardiance) salmon oil 1,000 mg-omega-3 fatty 1 cap PO DAILY 08/27/22 08/27/22 History acids 210 mg capsule vitamin E mixed 400 unit capsule 400 unit PO DAILY 08/27/22 08/27/22 History Allergies Allergy/AdvReac Type Severity Reaction Status Date / Time No Known Drug Allergies Allergy Verified 08/27/22 13:19 Exam Const: Vital Signs, click to edit/add: Vital Signs - 24 hr 08/27/22 10:18 08/27/22 11:32 Temperature 97.8 F Pulse Rate [Right Pulse Oximeter] 78 Respiratory Rate 18 Blood Pressure [Ri ght Upper Arm] 90/54 L Pulse Oximetry 97 96 Oxygen Delivery Me thod Room Air Hospitalist - H&P: Result Labs Labs: Short CBC 08/27/22 Range/Units 12:00 WBC 27.01 H* (4.50-11.00) K/uL Hgb 10.2 L (13.5-17.5) gm/dL Hct 32.9 L (37.0-53.0) % Plt Count 182 (140-440) K/uL BMP 08/27/22 12:00 Sodium 133 L Potassium 4.1 Chloride 104 Carbon Dioxide 18 L BUN 42 H Creatinine 1.9 H Glucose 199 H Calcium 8.9 Liver Function 08/27/22 Range/Units 12:00 Total Bilirubin 0.6 (0.1-1.5) mg/dL AST 22 (12-35) U/L ALT 17 (4-50) U/L Alkaline Phosphatase 84 (40-150) U/L Albumin 3.4 (3.3-5.0) g/dL Assessment and Plan Assessment and plan (1) Ileitis: Problem comment: -stool cultures pending which include viral, C diff, routine culture. clear liquid diet. trend I/Os. -supportive care with IV fluids. Lactate on presentation was normal. Vital signs had been stable after fluid resuscitation. -azithromycin 500 mg p.o. q.day x3 days - unless his viral culture dictates otherwise Status: Acute (2) Colitis: Problem comment: As above Status: Acute (3) Atrial fibrillation: Problem comment: -rate controlled currently. He has been on Eliquis. Given his history of GI bleed (not this presentation, March of 2022) I am going to hold his Eliquis and aspirin for now. Start Lovenox. SCDs. Continue his Coreg, spironolactone, valsartan. echo 2019 Final Impressions: 1. Normal left ventricular size, mildly increased wall thickness, normal global systolic function, calculated EF of 64 %. 2. Mildly enlarged left atrium. 3. The aortic valve is calcified, trileaflet and sclerotic, mild stenosis(mean gradient 18 mm Hg) and trivial regurgitation. 4. The mitral valve is sclerotic, trace mitral regurgitation. 5. Mildly increased estimated pulmonary pressures by tricuspid regurgitation velocity and right atrial pressure (34 mmHg plus RAP). Status: Acute (4) Type 2 diabetes mellitus: Problem comment: -holding Jardiance. Sliding scale insulin with Accu-Cheks. -A1C at admission 7.8 Status: Acute (5) CLL (chronic lymphocytic leukemia): Problem comment: Monitor Status: Acute (6) CAD (coronary artery disease): Problem comment: Monitor JAMES to mid LAD prox circumflex, OM1 01/05 Status: Acute (7) IVETTE (acute kidney injury): Problem comment: Baseline is typically 1.0. Today his BUN is 42 and his creatinine is 1.9. Trend. Status: Acute (8) Diverticulosis: Problem comment: Has had diverticulitis in the past, sigmoid resection. Status: Acute
[2022-08-27] MEDS: LACTATED RINGERS 1000 ML 1,000 ML 500 ML IV (14:36)
[2022-08-27 15:12] LABS: Hemoglobin A1C* 7.88 % (0-5.6)
[2022-08-27 15:24] LABS: Appearance Urine Clear (Clear); Bilirubin Urine Negative (Negative); Blood Urine Trace-lysed (Negative); Color Urine Yellow (Yellow); Glucose Urine 2+ (Negative); Ketones Urine Negative (Negative); Leukocyte Esterase Urine Negative (Negative); Nitrite Urine Negative (Negative); Protein Urine 1+ (Negative); Urobilinogen Urine 0.2 (0.2-1.0); pH Urine 5.5 (5.0-8.5)
[2022-08-27 15:29] LABS: RBC Urine 0-2 (0-2); WBC Urine 0-2 (0-5)
[2022-08-27 15:31] LABS: Procalcitonin* 1.44 ng/mL (<0.50)
[2022-08-27 15:33] LABS: NT Pro B Type NatriureticPept* 1510 pg/mL
[2022-08-27] MEDS: LACTATED RINGERS 1000 ML 500 ML 250 ML IV (15:51)
[2022-08-27] MEDS: AZITHROMYCIN 250 MG TABLET 500 MG PO (16:05)
[2022-08-27] MEDS: PANTOPRAZOLE SODIUM 40 MG INJ IVP (16:09)
[2022-08-27 17:14] LABS: C.Difficile Negative (Negative); CDIFFEPI 027 PRESUMPTIVE NEGATIVE (Negative)
[2022-08-27] MEDS: OMEPRAZOLE 20 MG CAPSULE DR PO (17:36)
[2022-08-27] MEDS: ACETAMINOPHEN 325 MG TABLET PO (17:36)
[2022-08-27] MEDS: LACTATED RINGERS 1000 ML 1,000 ML 75 ML IV (18:00)
--- NOTE | 2022-08-27 19:05 | PC.NURSE ---
End of shift: Pt A&O admitted to med/surg. VS Stable. Reports 2/10 abd pain, PRN Tylenol given. Since arriving to the floor pt has had 3 loose stools. Pt reports diarrhea for the past 4 days. Declined any clear liquids. SBA to the BR.
[2022-08-27] MEDS: carvediloL 25 MG TABLET PO (20:57)
[2022-08-27] MEDS: ENOXAPARIN 40 MG/0.4 ML INJ SUBCUT (20:57)
[2022-08-27] MEDS: SODIUM CHLORIDE 0.9 % (FLUSH) 10 ML SYRINGE 5 ML IVF (20:58)
[2022-08-28] VITALS (8 sets, daily range): BP systolic 127–146; BP diastolic 40–82; PULSE 62–74; RESP 12–63; TEMP 36.4–37.1; O2SAT 94–97
--- NOTE | 2022-08-28 06:13 | PC.NURSE ---
Patient is alert and oriented x 3, on RA, clear liquid diet, vss, SBA. Patient denies pain, slept well through the night. One incident of incontinent diarrhea, watery and green. c-Diff results came back from lab with negative result.
[2022-08-28 06:34] LABS: Lactate* 0.8 mmol/L (0.5-1.9)
[2022-08-28 06:43] LABS: Hematocrit 31.3 % (37.0-53.0); Hemoglobin* 9.7 gm/dL (13.5-17.5); Mean Corpuscular HGB Conc 31 gm/dL (32-36); Mean Corpuscular Hemoglobin 24 pg (26-34); Mean Corpuscular Volume 78 fL (80-100); Platelet Count* 176 K/uL (140-440); White Blood Count* 20.34 K/uL (4.50-11.00)
[2022-08-28 06:51] LABS: Slide Review Reflex No
[2022-08-28 07:06] LABS: Chloride* 110 mmol/L (96-114)
[2022-08-28 07:07] LABS: Potassium* 3.6 mmol/L (3.6-5.1); Sodium* 135 mmol/L (135-149)
[2022-08-28 07:09] LABS: Bilirubin Total* 0.6 mg/dL (0.1-1.5); Creatinine* 1.4 mg/dL (0.5-1.5); Est. Creatinine Clearance* 36.64; Estimated Glomerular Filt Rate 49 ml/min
[2022-08-28 07:10] LABS: Alanine Aminotransferase* 17 U/L (4-50); Alkaline Phosphatase* 74 U/L (40-150); Aspartate Amino Transferase* 22 U/L (12-35); Blood Urea Nitrogen* 33 mg/dL (7-30); Calcium* 8.5 mg/dL (8.4-10.6); Carbon Dioxide* 16 mmol/L (20-32); Gamma Glutamyl Transpeptidase* 21 U/L (8-55); Glucose* 126 mg/dL (60-115); Lipase* 73 U/L (23-300); Total Protein* 5.4 g/dL (6.0-8.3)
[2022-08-28 07:11] LABS: Magnesium* 1.9 mg/dL (1.5-2.6)
[2022-08-28 07:24] LABS: C Reactive Protein* 15.1 mg/dL (0.5-1.0)
[2022-08-28 07:27] LABS: Procalcitonin* 0.86 ng/mL (<0.50)
[2022-08-28] MEDS: LACTATED RINGERS 1000 ML 1,000 ML 75 ML IV ×2 (07:44→19:44)
[2022-08-28] MEDS: OMEPRAZOLE 20 MG CAPSULE DR PO ×2 (07:45→16:40)
[2022-08-28] MEDS: SPIRONOLACTONE 25 MG TABLET PO (09:24)
[2022-08-28] MEDS: ATORVASTATIN 10 MG TABLET 20 MG PO (09:24)
[2022-08-28] MEDS: carvediloL 25 MG TABLET PO ×2 (09:25→21:18)
[2022-08-28] MEDS: VALSARTAN 80 MG TABLET 320 MG PO (09:25)
[2022-08-28] MEDS: LOPERAMIDE HCL 2 MG CAPSULE PO ×3 (10:22→21:55)
--- NOTE | 2022-08-28 13:35 | PM.IMPN1 ---
Progress Note: A&P Assessment and plan (1) Ileitis: Problem details: - stool cultures pending, C-diff negative - clear liquid diet. trend I/Os. - supportive care with IV fluids. Lactate on presentation was normal, VS stable after fluid resuscitation - Azithromycin 500 mg p.o. Qd x3 days (08/27) - unless his stool culture dictates otherwise Status: Acute (2) Colitis: Problem details: - per above Status: Acute (3) Atrial fibrillation: Problem details: - rate controlled - on Eliquis: given h/o GI bleed in March 2022, holding Eliquis and ASA, on Lovenox. + SCDs. Continue Coreg, spironolactone, valsartan. echo 2019 Final Impressions: 1. Normal left ventricular size, mildly increased wall thickness, normal global systolic function, calculated EF of 64 %. 2. Mildly enlarged left atrium. 3. The aortic valve is calcified, trileaflet and sclerotic, mild stenosis(mean gradient 18 mm Hg) and trivial regurgitation. 4. The mitral valve is sclerotic, trace mitral regurgitation. 5. Mildly increased estimated pulmonary pressures by tricuspid regurgitation velocity and right atrial pressure (34 mmHg plus RAP). Status: Acute (4) Type 2 diabetes mellitus: Problem details: - holding Jardiance. Sliding scale insulin with Accu-Cheks. - A1C at admission 7.8 Status: Acute (5) CLL (chronic lymphocytic leukemia): Problem details: - stable Status: Acute (6) CAD (coronary artery disease): Problem details: - h/o JAMES to mid LAD prox circumflex, OM1 01/05 Status: Acute (7) IVETTE (acute kidney injury): Problem details: - Baseline creatinine 1.0. Creatinine on admission 1.9, down to 1.4 on 08/28 Status: Acute (8) Diverticulosis: Problem details: - h/o diverticulitis in the past, sigmoid resection Status: Acute Plan - per above: antibiotics, IVFs, diarrhea management - likely discharge to home when medically stable - daughters updated at bedside, questions answered Subjective Date Seen: 08/28/22 Interval history: Kristofer is seen with daughters at bedside this morning. He continues to have diarrhea, no abdominal pain. No hematochezia. No other concerns for hospitalist. Exam Narrative: Exam Narrative: GEN: Alert and oriented, appears nontoxic HEENT: Normal external ears, EOMIs bilaterally CV: RRR, No concerning murmurs R: LCTA bilaterally without concerning wheezing, air movement adequate Ab: soft, no significant distension, no ttp Ext: wwp, no concerning edema Skin: No concerning skin lesions or rashes on exposed skin Neuro: Nonfocal Psych: Appropriate Const: Vital Signs, click to edit/add: Vital Signs - 24 hr 08/27/22 14:34 08/27/22 14:45 08/27/22 15:30 Temperature Pulse Rate Pulse Rate [Pulse Oximeter] Respiratory Rate 18 Blood Pressure 109/39 L Blood Pressure [Le ft Arm] Blood Pressure [Ri ght Arm] Blood Pressure [Ri ght Upper Arm] 125/49 L Pulse Oximetry 98 Oxygen Delivery Me thod Room Air 08/27/22 15:30 08/27/22 16:00 08/27/22 18:18 Temperature 98.6 F Pulse Rate 69 Pulse Rate [Pulse Oximeter] 82 Respiratory Rate 18 18 Blood Pressure Blood Pressure [Le ft Arm] 112/55 L Blood Pressure [Ri ght Arm] Blood Pressure [Ri ght Upper Arm] Pulse Oximetry 98 98 Oxygen Delivery Nc thod Room Air Room Air 08/27/22 20:55 08/27/22 19:00 08/27/22 23:10 Temperature 98 F 98 F Pulse Rate Pulse Rate [Pulse Oximeter] 68 68 Respiratory Rate 12 12 Blood Pressure Blood Pressure [Le ft Arm] 116/45 L Blood Pressure [Ri ght Arm] Blood Pressure [Ri ght Upper Arm] Pulse Oximetry 95 Oxygen Delivery Nc thod Room Air 08/27/22 23:10 08/28/22 02:45 08/28/22 03:00 Temperature 97.7 F 97.6 F Pulse Rate 63 Pulse Rate [Pulse Oximeter] 79 71 Respiratory Rate 12 12 Blood Pressure Blood Pressure [Le ft Arm] 133/53 L 137/82 Blood Pressure [Ri ght Arm] Blood Pressure [Ri ght Upper Arm] Pulse Oximetry 96 94 Oxygen Delivery Me thod Room Air Room Air 08/28/22 08:12 08/28/22 11:00 Temperature 98.3 F 98.8 F Pulse Rate Pulse Rate [Pulse Oximeter] 71 66 Respiratory Rate 16 16 Blood Pressure Blood Pressure [Le ft Arm] 143/46 H Blood Pressure [Ri ght Arm] 146/54 H Blood Pressure [Ri ght Upper Arm] Pulse Oximetry 95 96 Oxygen Delivery Me thod Room Air Room Air Labs Labs: Laboratory Results - last 24 hr 08/27/22 08/27/22 08/27/22 12:00 14:50 14:56 WBC RBC Hgb Hct MCV MCH MCHC Plt Count Sodium Potassium Chloride Carbon Dioxide BUN Creatinine Estimated Creat Clear Estimated GFR Glucose Hemoglobin A1c 7.88 H Lactate Calcium Ionized Calcium [place] Magnesium Total Bilirubin GGT AST ALT Alkaline Phosphatase C-Reactive Protein NT-Pro-B Natriuret Pep 1510 Total Protein Albumin Lipase Procalcitonin 1.44 H TSH Urine Color Yellow Urine Appearance Clear Urine pH 5.5 Ur Specific [place] 1.010 Urine Protein 1+ A Urine Glucose (UA) 2+ A Urine Ketones Negative Urine Blood Trace-lysed A Urine Nitrite Negative Urine Bilirubin Negative Urine Urobilinogen 0.2 Ur Leukocyte Esterase Negative Urine RBC 0-2 Urine WBC 0-2 Ur Squamous Epith Cells None Urine Bacteria None Stl C.difficile Tox PCR Negative St C. diff Tox Epid 027 PRESUMPTIVE NEGATIVE 08/28/22 06:09 WBC 20.34 H RBC 4.00 L Hgb 9.7 L Hct 31.3 L MCV 78 L MCH 24 L MCHC 31 L Plt Count 176 Sodium 135 Potassium 3.6 Chloride 110 Carbon Dioxide 16 L BUN 33 H Creatinine 1.4 Estimated Creat Clear 36.64 Estimated GFR 49 Glucose 126 H Hemoglobin A1c Lactate 0.8 Calcium 8.5 Ionized Calcium [place] 1.20 Magnesium 1.9 Total Bilirubin 0.6 GGT 21 AST 22 ALT 17 Alkaline Phosphatase 74 C-Reactive Protein 15.1 H NT-Pro-B Natriuret Pep Total Protein 5.4 L Albumin 3.0 L Lipase 73 Procalcitonin 0.86 H TSH 1.210 Urine Color Urine Appearance Urine pH Ur Specific [place] Urine Protein Urine Glucose (UA) Urine Ketones Urine Blood Urine Nitrite Urine Bilirubin Urine Urobilinogen Ur Leukocyte Esterase Urine RBC Urine WBC Ur Squamous Epith Cells Urine Bacteria Stl C.difficile Tox PCR St C. diff Tox Epid 027
--- NOTE | 2022-08-28 14:00 | REH.OT ---
Orders received for OT eval and treat. Patient up ad adarsh in room and denies need for OT intervention.
[2022-08-28] MEDS: AZITHROMYCIN 250 MG TABLET 500 MG PO (15:24)
[2022-08-28] MEDS: LACTOBACILLUS ACIDOPHILUS 1 TABLET 2 TAB PO (18:19)
--- NOTE | 2022-08-28 18:44 | PC.NURSE ---
Pt A&O, Ind in room. vss and reports no pain. Pt had 7 loose stools, prn Imodium given x2. tolerating clear liquid diet. Edema in left ankle, elevated with pillows while in bed. pt remains on precautions per MD.
[2022-08-28] MEDS: ENOXAPARIN 40 MG/0.4 ML INJ SUBCUT (21:19)
[2022-08-28] MEDS: SODIUM CHLORIDE 0.9 % (FLUSH) 10 ML SYRINGE 5 ML IVF (21:19)
[2022-08-29] VITALS (11 sets, daily range): BP systolic 132–159; BP diastolic 37–59; PULSE 59–70; RESP 12–18; TEMP 36.6–36.9; O2SAT 94–996
[2022-08-29 07:02] LABS: Basophils Percent Auto 0.1 % (0.0-3.0); Eosinophils Percent Auto 0.5 % (0.0-7.0); Hematocrit 29.1 % (37.0-53.0); Hemoglobin* 9.2 gm/dL (13.5-17.5); Immature Granulocytes Pct Auto 0.1 %; Lymphocytes Percent Auto 71.7 % (20-44); Mean Corpuscular HGB Conc 32 gm/dL (32-36); Mean Corpuscular Hemoglobin 25 pg (26-34); Mean Corpuscular Volume 79 fL (80-100); Monocytes Percent Auto 5.8 % (0.0-11.0); Neutrophils Percent Auto 21.8 % (42.0-72.0); Platelet Count* 175 K/uL (140-440); RDW Coefficient of Variation % 20.2 % (11.5-15.5)
[2022-08-29 07:17] LABS: Chloride* 112 mmol/L (96-114); Potassium* 3.2 mmol/L (3.6-5.1); Sodium* 138 mmol/L (135-149)
[2022-08-29 07:19] LABS: Creatinine* 1.2 mg/dL (0.5-1.5); Est. Creatinine Clearance* 42.75; Estimated Glomerular Filt Rate 59 ml/min
[2022-08-29 07:20] LABS: Blood Urea Nitrogen* 22 mg/dL (7-30); Calcium* 8.3 mg/dL (8.4-10.6); Carbon Dioxide* 18 mmol/L (20-32); Glucose* 107 mg/dL (60-115)
--- NOTE | 2022-08-29 07:28 | PC.NURSE ---
Shift note: The pt has been pleasant and cooperative. the pt stated that he had x2 liquid stool from [id number]; denied abdominal pain. Denied chest pain and short of breath. No fever .The pt had unevetiful night.
[2022-08-29] MEDS: OMEPRAZOLE 20 MG CAPSULE DR PO ×2 (07:51→18:21)
[2022-08-29] MEDS: LACTOBACILLUS ACIDOPHILUS 1 TABLET 2 TAB PO ×3 (07:51→18:20)
[2022-08-29] MEDS: LACTATED RINGERS 1000 ML 1,000 ML 75 ML IV ×2 (07:51→20:58)
[2022-08-29 08:11] LABS: Slide Review Reflex Yes
[2022-08-29 08:12] LABS: Slide Review Acceptable Review (Acceptable)
[2022-08-29] MEDS: SPIRONOLACTONE 25 MG TABLET PO (10:40)
[2022-08-29] MEDS: ATORVASTATIN 10 MG TABLET 20 MG PO (10:40)
[2022-08-29] MEDS: carvediloL 25 MG TABLET PO ×2 (10:40→20:54)
[2022-08-29] MEDS: VALSARTAN 80 MG TABLET 320 MG PO (10:40)
[2022-08-29] MEDS: LOPERAMIDE HCL 2 MG CAPSULE PO (12:39)
[2022-08-29] MEDS: POTASSIUM BICARB 25 MEQ EFFERVESCENT TAB 50 MEQ PO (16:15)
[2022-08-29] MEDS: AZITHROMYCIN 250 MG TABLET 500 MG PO (16:15)
[2022-08-29] MEDS: ENOXAPARIN 40 MG/0.4 ML INJ SUBCUT (20:54)
[2022-08-29] MEDS: SODIUM CHLORIDE 0.9 % (FLUSH) 10 ML SYRINGE 5 ML IVF (20:55)
--- NOTE | 2022-08-29 22:48 | P.IMPN_ITS ---
Progress Note: A&P Assessment and plan (1) Ileitis: Problem details: - stool cultures pending, C-diff negative - advanced diet as tolerated - begin to wean IV fluids - Azithromycin 500 mg p.o. Qd x3 days (08/27) - unless his stool culture dictates otherwise Status: Acute (2) Colitis: Problem details: - per above Status: Acute (3) Atrial fibrillation: Problem details: - rate controlled. Paroxysmal. Appears to be in sinus currently. - on Eliquis: given h/o GI bleed in March 2022, holding Eliquis and ASA, on Lovenox. + SCDs. Continue Coreg, spironolactone, valsartan. echo 2019 Final Impressions: 1. Normal left ventricular size, mildly increased wall thickness, normal global systolic function, calculated EF of 64 %. 2. Mildly enlarged left atrium. 3. The aortic valve is calcified, trileaflet and sclerotic, mild stenosis(mean gradient 18 mm Hg) and trivial regurgitation. 4. The mitral valve is sclerotic, trace mitral regurgitation. 5. Mildly increased estimated pulmonary pressures by tricuspid regurgitation velocity and right atrial pressure (34 mmHg plus RAP). Status: Acute (4) Type 2 diabetes mellitus: Problem details: - holding Jardiance. Sliding scale insulin with Accu-Cheks. - A1C at admission 7.8 Status: Acute (5) CLL (chronic lymphocytic leukemia): Problem details: - stable Status: Acute (6) CAD (coronary artery disease): Problem details: - h/o JAMES to mid LAD prox circumflex, OM1 01/05 Status: Acute (7) IVETTE (acute kidney injury): Problem details: - Baseline creatinine 1.0. Creatinine on admission 1.9, down to 1.4 on 08/28 Status: Acute (8) Diverticulosis: Problem details: - h/o diverticulitis in the past, sigmoid resection Status: Acute (9) Physical deconditioning: Problem details: Encourage ambulation with plan to return home. Status: Acute Plan Continue in hospital until able to manage nutrition and hydration. Time Spent With Patient Total time spent: Total time spent today is 40 minutes, 30 minutes in coordination of care and discussing with patient other providers management of colitis, AFib with RVR, deconditioning. Subjective Date Seen: 08/29/22 Interval history: 86-year-old male seen in followup of hospitalization for colitis. Patient reports some improvement in his symptoms. Still having diarrhea. Nonbloody. No significant abdominal pain. Diarrhea is primarily watery. Set a poor appetite. No vomiting. No other concerns today. He reports feeling fairly weak. He is able to ambulate but poorly tolerates much activity. No shortness of breath. Exam Narrative: Exam Narrative: He is alert and appears in no distress. He gives his own history. Respirations with few basilar crackles more on the left than the right. No wheezing. Cardiovascular: S1, S2, regular rate and rhythm. No murmur gallop or rub. Abdomen: Bowel sounds active. Abdomen is soft without tenderness or mass. Extremities with trace edema. Const: Vital Signs, click to edit/add: Vital Signs - 24 hr 08/29/22 00:10 08/29/22 00:10 08/29/22 01:04 Temperature 98.1 F Pulse Rate 59 L Pulse Rate [Pulse Oximeter] 69 69 Respiratory Rate 18 18 Blood Pressure [Ri ght Arm] 138/46 L Pulse Oximetry 94 Oxygen Delivery Me thod Room Air 08/29/22 05:00 08/29/22 07:00 08/29/22 07:00 Temperature 98.2 F 97.9 F Pulse Rate Pulse Rate [Pulse Oximeter] 64 66 66 Respiratory Rate 18 18 18 Blood Pressure [Ri ght Arm] 151/56 H 145/59 H Pulse Oximetry 996 H 95 Oxygen Delivery Me thod Room Air Room Air 08/29/22 11:00 08/29/22 15:00 08/29/22 15:00 Temperature 98.4 F 98.2 F Pulse Rate Pulse Rate [Pulse Oximeter] 62 62 62 Respiratory Rate 18 18 18 Blood Pressure [Ri ght Arm] 148/58 H 159/59 H Pulse Oximetry 95 97 Oxygen Delivery Me thod Room Air Room Air 08/29/22 09:00 08/29/22 17:00 Temperature Pulse Rate 62 70 Pulse Rate [Pulse Oximeter] Respiratory Rate Blood Pressure [Ri ght Arm] Pulse Oximetry Oxygen Delivery Me thod Documenting provider has reviewed patient's vital signs: yes Labs Labs: Laboratory Results - last 24 hr 08/29/22 06:20 WBC 15.10 H RBC 3.70 L Hgb 9.2 L Hct 29.1 L MCV 79 L MCH 25 L MCHC 32 RDW Coeff of Ravi 20.2 H Plt Count 175 Neut % (Auto) 21.8 L Lymph % (Auto) 71.7 H [place] % (Auto) 5.8 Eos % (Auto) 0.5 Baso % (Auto) 0.1 Neut # (Auto) 3.30 Lymph # (Auto) 10.80 H [place] # (Auto) 0.90 Eos # (Auto) 0.10 Baso # (Auto) 0.00 Diff Slide Review Acceptable Review Sodium 138 Potassium 3.2 L Chloride 112 Carbon Dioxide 18 L BUN 22 Creatinine 1.2 Estimated Creat Clear 42.75 Estimated GFR 59 Glucose 107 Calcium 8.3 L
[2022-08-30 03:00] VITALS: BP 134/61; PULSE 68; RESP 12; TEMP 36.2; O2SAT 93
--- NOTE | 2022-08-30 05:48 | PC.NURSE ---
Patient is alert and oriented x 4, on RA, vss. Diet advanced to regular, patient is tolerating well. Glucose level at HS was 127. Up ad adarsh to BR. No episodes of stool incontinence during the night.
[2022-08-30 07:00] VITALS: BP 164/60; PULSE 67; RESP 18; TEMP 36.4; O2SAT 95
[2022-08-30 07:10] LABS: Basophils Percent Auto 0.1 % (0.0-3.0); Eosinophils Percent Auto 0.9 % (0.0-7.0); Immature Granulocytes Pct Auto 0.2 %; Lymphocytes Percent Auto 69.9 % (20-44); Mean Corpuscular HGB Conc 31 gm/dL (32-36); Mean Corpuscular Hemoglobin 25 pg (26-34); Mean Corpuscular Volume 79 fL (80-100); Monocytes Percent Auto 4.9 % (0.0-11.0); Platelet Count* 173 K/uL (140-440); RDW Coefficient of Variation % 20.1 % (11.5-15.5); Red Blood Count 3.68 m/uL (4.30-5.90); White Blood Count* 16.28 K/uL (4.50-11.00)
[2022-08-30 07:19] LABS: Slide Review Reflex No
[2022-08-30 07:21] LABS: Chloride* 112 mmol/L (96-114); Potassium* 3.6 mmol/L (3.6-5.1); Sodium* 137 mmol/L (135-149)
[2022-08-30 07:24] LABS: Blood Urea Nitrogen* 13 mg/dL (7-30); Carbon Dioxide* 21 mmol/L (20-32); Creatinine* 0.9 mg/dL (0.5-1.5); Estimated Glomerular Filt Rate 83 ml/min
[2022-08-30 07:25] LABS: Calcium* 8.2 mg/dL (8.4-10.6); Glucose* 110 mg/dL (60-115)
[2022-08-30 07:27] LABS: C Reactive Protein* 3.4 mg/dL (0.5-1.0)
[2022-08-30] MEDS: OMEPRAZOLE 20 MG CAPSULE DR PO (07:48)
[2022-08-30] MEDS: LACTOBACILLUS ACIDOPHILUS 1 TABLET 2 TAB PO (07:48)
[2022-08-30 09:00] VITALS: PULSE 67
[2022-08-30] MEDS: carvediloL 25 MG TABLET PO ×2 (09:10→09:11)
[2022-08-30] MEDS: SPIRONOLACTONE 25 MG TABLET PO (09:10)
[2022-08-30] MEDS: ATORVASTATIN 10 MG TABLET 20 MG PO (09:10)
[2022-08-30] MEDS: VALSARTAN 80 MG TABLET 320 MG PO (09:40)
[2022-08-30] MEDS: LOPERAMIDE HCL 2 MG CAPSULE PO (10:32)
[2022-08-30] MEDS: LACTATED RINGERS 1000 ML 1,000 ML 75 ML IV (10:39)
[2022-08-30 11:07] VITALS: BP 109/39; PULSE 64; RESP 18; TEMP 36.4
[2022-08-30 12:39] VITALS: BP 164/60; PULSE 67; RESP 18; TEMP 36.4
--- NOTE | 2022-08-30 12:42 | PC.NURSE ---
AVS reviewed. PIV removed. Patient vitally stable. Patient discharged to home with daughter. All concerns addressed.
[2022-08-30 16:27] LABS: Ova and Parasite, Fecal Negative (Negative)
--- NOTE | 2022-09-01 21:53 | PM.DS1 ---
DS: Providers Provider Date Seen: 08/30/22 Date of admission: 08/29/22 16:04 Primary care physician: Luiz Bullock MD Admitting Clinician: Mag Love MD Consults: 08/27/22 15:30 Consult to Occupational Therapy [CONS] Routine Comment: Reason(s) for OT Consult:: Evaluate and Treat Any Restrictions?:: No Restrictions Consult to Physical Therapy [CONS] Routine Comment: Reason(s) for PT Consult:: Evaluate and Treat Any Restrictions?:: No Restrictions Consult to [facility] [CONS] Routine Comment: Reason for Consult:: Social Service Consult Attending Physician on discharge: Sebastián Wolfe MD Date of Discharge: 08/30/22 DS: Diagnosis Discharge Diagnosis (1) Ileitis: Status: Acute Problem details: Clinically improved - stool cultures pending, C-diff negative - advanced diet as tolerated - begin to wean IV fluids - Azithromycin 500 mg p.o. Qd x3 days (08/27) (2) Colitis: Status: Acute Problem details: Colitis and ileitis on CT (3) Atrial fibrillation: Status: Acute Problem details: - rate controlled. Paroxysmal. Appears to be in sinus currently. - on Eliquis: given h/o GI bleed in March 2022, holding Eliquis and ASA, on Lovenox. + SCDs. Continue Coreg, spironolactone, valsartan. echo 2019 Final Impressions: 1. Normal left ventricular size, mildly increased wall thickness, normal global systolic function, calculated EF of 64 %. 2. Mildly enlarged left atrium. 3. The aortic valve is calcified, trileaflet and sclerotic, mild stenosis(mean gradient 18 mm Hg) and trivial regurgitation. 4. The mitral valve is sclerotic, trace mitral regurgitation. 5. Mildly increased estimated pulmonary pressures by tricuspid regurgitation velocity and right atrial pressure (34 mmHg plus RAP). (4) Type 2 diabetes mellitus: Status: Acute Problem details: - holding Jardiance. Sliding scale insulin with Accu-Cheks. - A1C at admission 7.8 (5) CLL (chronic lymphocytic leukemia): Status: Acute Problem details: - stable (6) CAD (coronary artery disease): Status: Acute Problem details: - h/o JAMES to mid LAD prox circumflex, OM1 01/05 (7) IVETTE (acute kidney injury): Status: Acute Problem details: - Baseline creatinine 1.0. Creatinine on admission 1.9, down to 0.9 on 08/30 (8) Diverticulosis: Status: Acute Problem details: - h/o diverticulitis in the past, sigmoid resection (9) Physical deconditioning: Status: Acute Problem details: Encourage ambulation with plan to return home. DS: Summary Hospital Course Hospital Course: Mr. Kristofer Garcia is a pleasant 86 y.o. male who presents to our ED with c/o of diarrhea x 4 days, fever, abdominal cramping. poor intake; mild nausea, no vomiting. no travel. no hx of cdiff. 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 Also has a history of diverticular lower bleed requiring 2 clips and ultimately a sigmoid resection.? His daughter lives with him.? Granddaughter has had similar symptoms.? She works at a local [employer]. 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 treated with azithromicin and IV fluids with marked improvement in symptoms during his hospital stay. Status at Discharge Overall status at discharge: patient is progressing back to baseline Time Spent with Patient Time attestation: Total time spent providing and/or coordinating discharge services: Time spent: Greater than 30 minutes Exam Narrative: Exam Narrative: He is alert and in no distress. Respirations are clear to auscultation. Abd: bowel sounds active. Soft without tenderness. Const: Documenting provider has reviewed patient's vital signs: yes DS: Data Imaging CT scan - abdomen: Radiologist's impression: [address] [address] Ordering Physician: Sally Guy M.D. Date of Service: 08/27/22 Procedure(s): CT abdomen pelvis w con Accession Number(s): [id number] cc: Luiz Bullock M.D.; Suchomel-Meehan,Sally R M.D.~ INDICATION: Fever, diarrhea and abdominal pain. History of CLL. History of colon resection and cholecystectomy. COMPARISON: None TECHNIQUE: CT examination of the abdomen and pelvis was performed following the uneventful intravenous administration of 98 cc of Isovue 370. Thin section axial images were obtained from the lung bases through the pubic symphysis. ?Oral contrast was not administered.? Please note that all CT scans at this facility use dose modulation, iterative reconstruction, and/or weight-based dosing when appropriate to reduce radiation dose to as low as reasonably achievable. FINDINGS: LUNG BASES: Moderate reticular opacities consistent with interstitial fibrosis.Enlarged heart. Small hiatal hernia LIVER/BILIARY SYSTEM:The liver is normal in size and configuration. There is no focal mass and there is no intra- or extra hepatic biliary ductal dilatation.Absent gallbladder ADRENALS: Normal KIDNEYS, URETERS and BLADDER:Normal size kidneys. A few tiny low-density lesions are noted likely benign. No obstructive uropathy. The bladder appears normal as visualized. SPLEEN:Normal appearance. PANCREAS: Appears normal. RETROPERITONEUM and MESENTERY: There is no mass, adenopathy or aortic aneurysm. Extensive atherosclerotic vascular calcifications without kristofer aneurysm formation GASTROINTESTINAL SYSTEM: Marked thickening and hyperemia of distal and terminal small bowel consistent with ileitis. There also patchy areas of colonic thickening most notably the cecum, a portion of the ascending colon and the sigmoid and rectum. This is consistent with colitis and proctitis. There is no mechanical obstruction PELVIS: No mass, adenopathy or free fluid. OSSEOUS STRUCTURES and ABDOMINAL WALL: There is an age-appropriate appearance of the osseous structures.No significant abdominal wall defect. OTHER: No free fluid or free air. MISCELLANEOUS: Unusual fat containing mass in the transverse mesocolon right behind the midtransverse colon measuring 3.5 x 2.5 centimeters. A 2nd calcified mass noted in the omentum on the right measuring 2.6 centimeters abutting the colon. I favor that these are due to one of the benign entities that cause fat necrosis of the omentum and mesentery. This has some overlap imaging features with gastrointestinal stromal tumor. Appropriate follow-up advised IMPRESSION: 1. Marked thickening and hyperemia of the distal and terminal small bowel consistent with ileitis. Patchy areas of colonic thickening and rectal thickening consistent with colitis and proctitis. No obstruction. No intramural air, no free air or collection. 2. There are 2 unusual fat containing masses as described above. I favor that these are due to omental areas of benign fat necrosis though there are some overlap imaging features with gastrointestinal stromal tumor. Appropriate follow up is advised. 3. Basilar interstitial fibrosis. 4. There are no findings of CLL on this exam. Discharge Plan Discharge Disposition: Home, Self-Care Date of Admission: 08/29/22 16:04 Attending Provider on Discharge: Nick Wolfe Primary Care Provider: Luiz Bullock Condition: Unchanged Anticipated Discharge Date/Time: 08/30/22 11:01 Discharge Medications: Continued carvedilol 25 mg tablet 25 mg PO BID atorvastatin 20 mg tablet 20 mg PO DAILY spironolactone 25 mg tablet 25 mg PO DAILY valsartan 320 mg tablet 320 mg PO DAILY omeprazole 20 mg capsule,delayed release(DR/EC) 20 mg PO BID Patient Comments: TAKE 1 CAPSULE BY MOUTH TWICE DAILY aspirin 81 mg tablet,chewable 1 tab PO MOTH Rx Instructions: 2 x per week on Mon and Thurs for migraine prophylaxis Eliquis 2.5 mg tablet 2.5 mg PO BID Jardiance 25 mg tablet 25 mg PO DAILY salmon oil-omega-3 fatty acids 1,000-210 mg capsule 1 cap PO DAILY ascorbic acid (vitamin C) 500 mg tablet 500 mg PO DAILY vitamin E mixed 400 unit capsule 400 unit PO DAILY Discharge Orders: Discharge Order (Routine); Ordered 08/30/22 Ordered By: Nick Wolfe Patient Education: C. Diff (Clostridioides Difficile) Infection (DC) Activity Level: No Restrictions Discharge Diet: Regular Follow Up Appointments: Luiz Bullock MD [Primary Care Provider] - 09/12/22 10:00 am ([facility] [place]) Forms: [place] Info Instructions
== END 2022-08-30 12:00 | disposition home or self-care (01) | DRG 392 ==
LOC: ED 14:09 → MEDSURG 14:39
PROVIDERS: Family Medicine; Admitting Provider Family Medicine; Emergency Provider Family Medicine; PCP Family Medicine; Visit Provider Family Medicine
DX: K52.9 Noninfective gastroenteritis and colitis, unspecified (principal); C91.10 Chronic lymphocytic leukemia of B-cell type not having achieved remission; N17.9 Acute kidney failure, unspecified; J84.9 Interstitial pulmonary disease, unspecified; I25.10 Atherosclerotic heart disease of native coronary artery without angina pectoris; K57.90 Diverticulosis of intestine, part unspecified, without perforation or abscess without bleeding; Z72.3 Lack of physical exercise; I48.0 Paroxysmal atrial fibrillation; E11.3511 Type 2 diabetes mellitus with proliferative diabetic retinopathy with macular edema, right eye
CPT/HCPCS: 36415; 74177; 80048; 80053; 81001; 82330; 82962; 82977; 83036; 83605; 83690; 83735; 83880; 84145; 84443; 85025; 85027; 86140; 87040; 87045; 87046; 87077; 87086; 87177; 87209; 87252; 87427; 87493; 87635; 94761; 97116; 97161; 99284; 99285; G0378; A9270; C9113; J1650; J7030; J7120; Q9967

== ENCOUNTER 2023-01-21 08:51 | Outpatient (CLI) | payer MEDICARE, BC, SELFPAY ==
--- NOTE | 2023-01-21 09:15 | CRLHL7_ITS ---
For Patients: As a result of the Century Cures Act, medical imaging exams and procedure reports are released immediately into your electronic medical record. You may view this report before your referring provider. If you have questions, please contact your health care provider. Technique: Double-contrast esophagram performed after the uneventful administration of effervescent crystals and thick barium followed by thin barium. Fluoroscopy time 48 seconds. Indication: Dysphagia Comparison: None. Findings: Esophagus: Multiple tertiary contractions throughout the mid and distal esophagus. He no achalasia or obstruction. No ulcer. Decreased esophageal motility. Laryngeal penetration and aspiration. Gastroesophageal reflux: Large volume reflux extending to the proximal esophagus. Impression: Large volume laryngeal penetration and aspiration, consider speech pathology consultation. Severe spontaneous reflux to the proximal esophagus with extensive tertiary contractions of the mid and distal esophagus. Decreased esophageal motility. No hernia. Dictated by Bertrand Gordon MD @ 01/21/2023 10:13:13 AM (Electronically Signed)
== END 2023-01-21 08:52 | disposition home or self-care (01) ==
LOC: RAD 08:53
PROVIDERS: PCP Family Medicine; Visit Provider Family Medicine
DX: R13.10 Dysphagia, unspecified (principal); K21.9 Gastro-esophageal reflux disease without esophagitis
CPT/HCPCS: 74221

== ENCOUNTER 2023-02-07 03:01 | Emergency (ER) | payer MEDICARE, BC, SELFPAY ==
[2023-02-07 03:06] VITALS: BP 168/69; PULSE 93; RESP 16; TEMP 36.9; O2SAT 95; BMI 28.9
--- NOTE | 2023-02-07 03:47 | ED.GENADULT ---
HPI - General Adult General Chief complaint: Cough Stated complaint: covid positive, sore throat, chest pain Time Seen by Provider: 02/07/23 03:25 Source: patient and family Mode of arrival: ambulatory Limitations: no limitations History of Present Illness HPI narrative: 87-year-old male that lives with his daughter presents the emergency department because of weakness, cough and sore throat. Tested positive at home for COVID this afternoon and on repeat test this morning. He is frustrated by the cough and would like to start Paxlovid. He has no severe weakness. He can get himself to the bathroom, ambulated into the ED with no difficulty. He is not showing any signs of delirium. He has been eating and drinking normally. They have a way to monitor oxygen levels at home and these have not been impaired. He has received the COVID vaccine including all 5 total doses and boosters. He has not had a fever. He does note chest congestion but only with cough, nonexertional. He has not been taking Tylenol or ibuprofen to help with his symptoms. I reviewed the records and see that he has a history of hematological malignancy and borderline renal function. Last round of labs that I can see are from August. Past medical history most notable for chronic interstitial lung disease, sleep apnea, GERD, CLL, hypertension. Medications reviewed, listed is accurate per patient in EMR. ROS notable for the generalized, HEENT, respiratory symptoms as above. Otherwise denies times 12 systems. Related Data Home Medications Medication Instructions Recorded Confirmed atorvastatin 20 mg tablet 20 mg PO DAILY 03/26/22 08/27/22 carvedilol 25 mg tablet 25 mg PO BID 03/26/22 08/27/22 omeprazole 20 mg capsule,delayed 20 mg PO BID 03/26/22 08/27/22 release spironolactone 25 mg tablet 25 mg PO DAILY 03/26/22 08/27/22 valsartan 320 mg tablet 320 mg PO DAILY 03/26/22 08/27/22 apixaban 2.5 mg tablet (Eliquis) 2.5 mg PO BID 08/27/22 08/27/22 ascorbic acid (vitamin C) 500 mg 500 mg PO DAILY 08/27/22 08/27/22 tablet aspirin 81 mg chewable tablet 1 tab PO MOTH 08/27/22 08/27/22 empagliflozin 25 mg tablet 25 mg PO DAILY 08/27/22 08/27/22 (Jardiance) salmon oil 1,000 mg-omega-3 fatty 1 cap PO DAILY 08/27/22 08/27/22 acids 210 mg capsule vitamin E mixed 400 unit capsule 400 unit PO DAILY 08/27/22 08/27/22 Previous Rx's Medication Instructions Recorded nirmatrelvir 150 mg-ritonavir 100 See Rx Instructions PO .COMPLEX 02/07/23 mg tablets in a dose pack #20 ea (Paxlovid) Allergies Allergy/AdvReac Type Severity Reaction Status Date / Time metformin AdvReac Intermediate Diarrhea Verified 08/27/22 16:11 [facility] Medical History Diverticulosis ?K57.90 - Diverticulosis of intestine, part unspecified, without perforation or abscess without bleeding (ICD-10) Blood clot of artery under arm ?I74.2 - Embolism and thrombosis of arteries of the upper extremities (ICD-10) Diabetic retinopathy ?E11.319 - Type 2 diabetes mellitus with unspecified diabetic retinopathy without macular edema (ICD-10) Interstitial lung disease ?J84.9 - Interstitial pulmonary disease, unspecified (ICD-10) CAD (coronary artery disease) ?I25.10 - Atherosclerotic heart disease of [place] coronary artery without angina pectoris (ICD-10) ROSA ISELA (obstructive sleep apnea) ?G47.33 - Obstructive sleep apnea (adult) (pediatric) (ICD-10) Hyperlipidemia ?E78.5 - Hyperlipidemia, unspecified (ICD-10) CLL (chronic lymphocytic leukemia) ?C91.10 - Chronic lymphocytic leukemia of B-cell type not having achieved remission (ICD-10) Type 2 diabetes mellitus ?E11.9 - Type 2 diabetes mellitus without complications (ICD-10) GERD (gastroesophageal reflux disease) ?K21.9 - Gastro-esophageal reflux disease without esophagitis (ICD-10) Essential hypertension ?I10 - Essential (primary) hypertension (ICD-10) 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 - Dissection of other specified artery (ICD-10) Ileitis ?K52.9 - Noninfective gastroenteritis and colitis, unspecified (ICD-10) Atrial fibrillation ?I48.91 - Unspecified atrial fibrillation (ICD-10) Surgical History Patella fracture ?S82.009A - Unspecified fracture of unspecified patella, initial encounter for closed fracture (ICD-10) History of atherectomy ?Z98.890 - Other specified postprocedural states (ICD-10) H/O colectomy ?Z90.49 - Acquired absence of other specified parts of digestive tract (ICD-10) History of laparoscopic cholecystectomy ?Z90.49 - Acquired absence of other specified parts of digestive tract (ICD-10) Social History Highest level of school completed/degree received: high school graduate Smoking Status: Former smoker What tobacco products do you use: cigarettes Smoking quit date/years: >15 years ago Do you use any of these nicotine containing products: None Second hand tobacco smoke exposure: No How often do you have a drink containing alcohol: never How often do you have six or more drinks on one occasion: Never AUDIT-C Alcohol total score: 0 Non-prescribed substance use: denies use Caffeine: Yes (Green Tea) service: Yes Exam Const: Vital Signs, click to edit/add: Vital Signs - 24 hr 02/07/23 03:06 Temperature 98.4 F Pulse Rate [Pulse Oximeter] 93 Respiratory Rate 16 Blood Pressure [Ri ght Upper Arm] 168/69 H Pulse Oximetry 95 Oxygen Delivery Me thod Room Air Documenting provider has reviewed patient's vital signs: yes Common normals: no apparent distress General appearance: cooperative and comfortable HENMT: Common normals: normocephalic Head and scalp: normocephalic Resp: Common normals: normal respiratory effort, no use of accessory muscles and clear to auscultation bilaterally Effort & inspection: able to speak in complete sentences Auscultation: clear to auscultation bilaterally Cardio: Common normals: regular rate, regular rhythm, S1 normal heart sound, S2 normal heart sound and no murmurs Rate: regular rate Rhythm: regular rhythm Heart sounds: S1 normal and S2 normal Other: History of AFib but sounds to be in sinus right now. Extremity: Common normals: no pedal edema (Trace edema.) Neuro: Motor exam: strength 5/5 throughout and no movement abnormalities noted Psych: Mood and affect: euthymic mood Other: No delirium, answers questions appropriately. Skin: Common normals: no rashes or lesions noted General skin exam: no rashes or lesions noted Course Course ED Course: 87-year-old male with acute COVID. No signs of respiratory failure, sepsis, delirium or severe weakness. Symptoms are consistent with reported illness. If his kidneys allow, he would be a good candidate for Paxlovid. Based on his values from [place], he could likely have the renally adjusted dose. Counseled on alarm symptoms that would warrant ED presentation. They verbalized understanding and agreement. No indications for hospitalization at this time. Will discharge home, prescription sent to pharmacy. Vital Signs Vital signs: Initial Vital Signs Temperature 98.4 F 02/07/23 03:06 Temperature Source Temporal Artery Scan 02/07/23 03:06 Pulse Rate 93 02/07/23 03:06 Respiratory Rate 16 02/07/23 03:06 Blood Pressure 168/69 H 02/07/23 03:06 Blood Pressure Mean 102 02/07/23 03:06 Blood Pressure Position Sitting 02/07/23 03:06 Pulse Oximetry 95 02/07/23 03:06 Oxygen Delivery Method Room Air 02/07/23 03:06 Vital Signs Temperature 98.4 F 02/07/23 03:06 Pulse Rate 93 02/07/23 03:06 Respiratory Rate 16 02/07/23 03:06 Blood Pressure 168/69 H 02/07/23 03:06 Pulse Oximetry 95 02/07/23 03:06 Oxygen Delivery Method Room Air 02/07/23 03:06 Temperature 98.4 F 02/07/23 03:06 Pulse Rate 93 02/07/23 03:06 Respiratory Rate 16 02/07/23 03:06 Blood Pressure 168/69 H 02/07/23 03:06 Pulse Oximetry 95 02/07/23 03:06 Oxygen Delivery Method Room Air 02/07/23 03:06 Medical Decision Making Lab Data Lab results reviewed: Yes I reviewed the patient's lab results Lab results narrative: Point of care creatinine 1.2. Reviewed previous GFR and lab values. GFR today is certainly above 30 but would be safest to use renally dose Paxlovid Labs: Lab Results 02/07/23 Range/Units 04:00 POC Creatinine 1.2 (0.6-1.3) mg/dl Discharge Plan Discharge Clinical Impression: COVID Patient Disposition: Home w/ Parent or Adult Condition: Stable Instructions: COVID-19 (Coronavirus Disease 2019) (ED) Additional Instructions: As we discussed, your oxygen levels, blood pressure and pulse look great today. Your symptoms do seem consistent with COVID and hopefully will improve in about a week. Keep monitoring her oxygen levels at home. Come back to the emergency department if they are consistently running below 90%. If you have severe weakness to the point where you are unable to ambulate or care for yourself, come back for reassessment. At this time, you do not meet criteria for hospitalization. The Paxil event medication can be given only at special doses because of your age and kidney function. I have sent a prescription to the pharmacy. This will cause a metal taste in her mouth and some nausea but overall will reduce her chance of complications. Activity Level: Activity as Tolerated Discharge Diet: Diabetic Prescriptions: New Paxlovid 150-100 mg tablets,dose pack See Rx Instructions .ROUTE .COMPLEX Qty: 20 0RF Rx Instructions: orally per package directions No Action carvedilol 25 mg tablet 25 mg PO BID atorvastatin 20 mg tablet 20 mg PO DAILY spironolactone 25 mg tablet 25 mg PO DAILY valsartan 320 mg tablet 320 mg PO DAILY omeprazole 20 mg capsule,delayed release(DR/EC) 20 mg PO BID Patient Comments: TAKE 1 CAPSULE BY MOUTH TWICE DAILY aspirin 81 mg tablet,chewable 1 tab PO MOTH Rx Instructions: 2 x per week on Mon and Thurs for migraine prophylaxis Eliquis 2.5 mg tablet 2.5 mg PO BID Jardiance 25 mg tablet 25 mg PO DAILY salmon oil-omega-3 fatty acids 1,000-210 mg capsule 1 cap PO DAILY ascorbic acid (vitamin C) 500 mg tablet 500 mg PO DAILY vitamin E mixed 400 unit capsule 400 unit PO DAILY Follow Up/Referrals: Luiz Bullock MD [Primary Care Provider] - Stand Alone Forms: [employer] Info Instructions
[2023-02-07 04:07] LABS: Creatinine, Point-of-Care* 1.2 mg/dl (0.6-1.3)
== END 2023-02-07 04:43 | disposition home or self-care (01) ==
LOC: ED 04:20
PROVIDERS: Emergency Provider Family Medicine; PCP Family Medicine
DX: U07.1 COVID-19 (principal)
CPT/HCPCS: 82565; 99283

== ENCOUNTER 2023-09-20 20:34 | Observation (INO) | payer MEDICARE, BC, SELFPAY ==
[2023-09-20 20:41] VITALS: BP 193/69; PULSE 93; RESP 22; TEMP 37.4; O2SAT 94; BMI 27.7
--- NOTE | 2023-09-20 20:46 | ED.GENADULT ---
HPI - General Adult General Date Seen: 09/20/23 Chief complaint: Fever Stated complaint: Fever, dropping O2 Time Seen by Provider: 09/20/23 20:45 History of Present Illness HPI narrative: This is an 87-year-old gentleman with history of interstitial lung disease, COPD, GERD, hypertension, prior COVID infection, presenting to the ER today with cough, fever, shortness of breath. He has had a cough and fever off and on for the past 6 days or so. Symptoms started with mild cough and sore throat. He was actually seen in the Urgent Care last Thursday and told that he either had allergies or virus. Symptoms gotten worse since then. Cough has been productive of yellow sputum. He has hep episodes of shortness of breath. No chest pain. He he has been monitoring his oxygen saturations at home and they been dropping to as low as 91% while he is awake. He does not know if his oxygens are desaturating while he is asleep. Yesterday temperatures up to 100.4. Today for low-grade with temperatures in the 99. He did test twice with at home COVID test simple test were negative. No swelling in his legs. No nausea or vomiting or diarrhea. He has been trying to drink plenty of fluids and stay hydrated. He has been drinking at least five 16 oz bottles of water every day. He is having generalized fatigue. He is also feeling mildly short of breath. He notes that his daughter and his great grandson are also sick with a similar coughing illness. Related Data Home Medications Medication Instructions Recorded Confirmed atorvastatin 20 mg tablet 20 mg PO DAILY 03/26/22 08/27/22 carvedilol 25 mg tablet 25 mg PO BID 03/26/22 08/27/22 omeprazole 20 mg capsule,delayed 20 mg PO BID 03/26/22 08/27/22 release spironolactone 25 mg tablet 25 mg PO DAILY 03/26/22 08/27/22 valsartan 320 mg tablet 320 mg PO DAILY 03/26/22 08/27/22 apixaban 2.5 mg tablet (Eliquis) 2.5 mg PO BID 08/27/22 08/27/22 ascorbic acid (vitamin C) 500 mg 500 mg PO DAILY 08/27/22 08/27/22 tablet aspirin 81 mg chewable tablet 1 tab PO MOTH 08/27/22 08/27/22 empagliflozin 25 mg tablet 25 mg PO DAILY 08/27/22 08/27/22 (Jardiance) salmon oil 1,000 mg-omega-3 fatty 1 cap PO DAILY 08/27/22 08/27/22 acids 210 mg capsule vitamin E mixed 400 unit capsule 400 unit PO DAILY 08/27/22 08/27/22 Previous Rx's Medication Instructions Recorded nirmatrelvir 150 mg-ritonavir 100 See Rx Instructions PO .COMPLEX 02/07/23 mg tablets in a dose pack #20 ea (Paxlovid) Allergies Allergy/AdvReac Type Severity Reaction Status Date / Time metformin AdvReac Intermediate Diarrhea Verified 08/27/22 16:11 [facility] Medical History Diverticulosis ?K57.90 - Diverticulosis of intestine, part unspecified, without perforation or abscess without bleeding (ICD-10) Blood clot of artery under arm ?I74.2 - Embolism and thrombosis of arteries of the upper extremities (ICD-10) Diabetic retinopathy ?E11.319 - Type 2 diabetes mellitus with unspecified diabetic retinopathy without macular edema (ICD-10) Interstitial lung disease ?J84.9 - Interstitial pulmonary disease, unspecified (ICD-10) CAD (coronary artery disease) ?I25.10 - Atherosclerotic heart disease of [place] coronary artery without angina pectoris (ICD-10) ROSA ISELA (obstructive sleep apnea) ?G47.33 - Obstructive sleep apnea (adult) (pediatric) (ICD-10) Hyperlipidemia ?E78.5 - Hyperlipidemia, unspecified (ICD-10) CLL (chronic lymphocytic leukemia) ?C91.10 - Chronic lymphocytic leukemia of B-cell type not having achieved remission (ICD-10) Type 2 diabetes mellitus ?E11.9 - Type 2 diabetes mellitus without complications (ICD-10) GERD (gastroesophageal reflux disease) ?K21.9 - Gastro-esophageal reflux disease without esophagitis (ICD-10) Essential hypertension ?I10 - Essential (primary) hypertension (ICD-10) 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 - Dissection of other specified artery (ICD-10) Ileitis ?K52.9 - Noninfective gastroenteritis and colitis, unspecified (ICD-10) Atrial fibrillation ?I48.91 - Unspecified atrial fibrillation (ICD-10) Surgical History Patella fracture ?S82.009A - Unspecified fracture of unspecified patella, initial encounter for closed fracture (ICD-10) History of atherectomy ?Z98.890 - Other specified postprocedural states (ICD-10) H/O colectomy ?Z90.49 - Acquired absence of other specified parts of digestive tract (ICD-10) History of laparoscopic cholecystectomy ?Z90.49 - Acquired absence of other specified parts of digestive tract (ICD-10) Social History Highest level of school completed/degree received: high school graduate Smoking Status: Former smoker What tobacco products do you use: cigarettes Smoking quit date/years: >15 years ago Do you use any of these nicotine containing products: None Second hand tobacco smoke exposure: No How often do you have a drink containing alcohol: never How often do you have six or more drinks on one occasion: Never AUDIT-C Alcohol total score: 0 Non-prescribed substance use: denies use Caffeine: Yes (Green Tea) service: Yes Exam Narrative: Exam Narrative: Constitutional: Appears well-developed and well-nourished. Alert. Conversant but speaking short sentences, limited to about 4 or 5 words by shortness of breath. HENT: Head: Atraumatic. Nose: Nose normal. Mouth/Throat: Oral mucosa is clear and moist. no trismus. Pharynx normal. Tonsils symmetric. No tonsillar enlargement, erythema, or exudate. Eyes: Conjunctivae normal. EOM normal. Pupils equal, round, and reactive to light. No scleral icterus. Neck: Normal range of motion. Neck supple. No tracheal deviation present. No JVD Cardiovascular: Normal rate, regular rhythm. No gallop. No friction rub. No murmur heard. Symmetric radial artery pulses . Normal cap refill in his extremities. Pulmonary/Chest: Does appear mildly short of breath.. No stridor. No respiratory distress. No wheezes. Bilateral rales and rhonchi, much more prominent in the right upper and lower lung than on the left. No tenderness. Abdominal: Soft. No distension. No mass. No tenderness. No rebound. No guarding. Musculoskeletal: RUE: Normal range of motion. No tenderness. No deformity LUE: Normal range of motion. No tenderness. No deformity RLE: Normal range of motion. No edema. No tenderness. No deformity LLE: Normal range of motion. No edema. No tenderness. No deformity Neurological: Alert and oriented to person, place, and time. Normal strength. CN II-VII intact. No sensory deficit. GCS eye subscore is 4. GCS verbal subscore is 5. GCS motor subscore is 6. Normal coordination Skin: Skin is warm and dry. No rash noted. No pallor. Normal capillary refill. Psychiatric: Normal mood. Normal affect. Const: Vital Signs, click to edit/add: Vital Signs - 24 hr 09/20/23 20:41 09/20/23 22:09 Temperature 99.3 F Pulse Rate [Pulse Oximeter] 93 Respiratory Rate 22 Blood Pressure 174/75 H Blood Pressure [Ri ght Upper Arm] 193/69 H Pulse Oximetry 94 Oxygen Delivery Me thod Room Air Course Course ED Course: Recheck-patient feels like he is coughing less after DuoNebs. However lung sounds are really not changed. Still coarse rales and rhonchi bilaterally, more on the right than on the left. Heart rate did come up to about 104, possibly due to fever or nebs. Reevaluation(s) Reevaluation #1: Recheck-discussed abnormal troponin with the patient and his family (phone). He is not really having any chest pain now. He says he did think he had some earlier but was probably due to coughing. We will recheck a 2 hour delta troponin and if it is not rising, we could plan to admit him here in [place]. If it is rising would recommend transfer to a Cardiology capable hospital. For his part, the patient does not want to be admitted at all, but understands with bad pneumonia, in the setting of chronic lymphocytic leukemia, with abnormal troponin, he would benefit from hospitalization for IV antibiotics and monitoring. Family is supportive of hospitalization. Vital Signs Vital signs: Initial Vital Signs Temperature 99.3 F 09/20/23 20:41 Temperature Source Temporal Artery Scan 09/20/23 20:41 Pulse Rate 93 09/20/23 20:41 Pulse Rhythm Regular 09/20/23 20:41 Respiratory Rate 22 09/20/23 20:41 Blood Pressure 193/69 H 09/20/23 20:41 Blood Pressure Mean 110 H 09/20/23 20:41 Blood Pressure Position Sitting 09/20/23 20:41 Pulse Oximetry 94 09/20/23 20:41 Oxygen Delivery Method Room Air 09/20/23 20:41 Vital Signs Temperature 99.3 F 09/20/23 20:41 Pulse Rate 93 09/20/23 20:41 Respiratory Rate 22 09/20/23 20:41 Blood Pressure 193/69 H 09/20/23 20:41 Pulse Oximetry 94 09/20/23 20:41 Oxygen Delivery Method Room Air 09/20/23 20:41 Temperature 99.3 F 09/20/23 20:41 Pulse Rate 93 09/20/23 20:41 Respiratory Rate 22 09/20/23 20:41 Blood Pressure 174/75 H 09/20/23 22:09 Pulse Oximetry 94 09/20/23 20:41 Oxygen Delivery Method Room Air 09/20/23 20:41 Medications Administered Medications: Generic Name Dose Route Start Last Admin Trade Name Freq PRN Reason Stop Dose Admin Benzonatate 100 mg 09/21/23 09:00 09/20/23 21:18 Benzonatate 100 Mg Capsule PO 100 mg TID ORTIZ Administration Sodium Chloride 500 mls @ 500 mls/hr 09/20/23 23:57 09/20/23 23:00 0.9 % Sodium Chloride 500 Ml IV 09/21/23 00:56 Infused .Q1H ONE Infusion Discontinued Medications Generic Name Dose Route Start Last Admin Trade Name Freq PRN Reason Stop Dose Admin Acetaminophen 1,000 mg 09/20/23 23:57 09/21/23 00:12 Acetaminophen 500 Mg Tablet PO 09/20/23 23:58 1,000 mg ONCE ONE Administration Ceftriaxone Sodium 1 gm/ 100 mls @ 200 mls/hr 09/20/23 22:40 09/20/23 23:27 Sodium Chloride IVPB 09/20/23 22:41 Infused ONCE ONE Infusion Azithromycin 500 mg/ Sodium 255 mls @ 255 mls/hr 09/20/23 22:40 09/20/23 23:27 Chloride IVPB 09/20/23 22:41 255 mls/hr ONCE ONE Administration Medical Decision Making [facility] Narrative Medical decision making narrative: Very pleasant 87-year-old gentleman with a history of CLL (never on chemotherapy) presenting to the ER today with a 6 day history of sore throat, cough productive of yellow sputum, and intermittent fevers with a T-max up to 100.4. Infectious disease. He did have fairly coarse lung sounds bilaterally with worse rales on the right than on the left. PCR testing for coronavirus, influenza, RSV is negative. Concern here is for possible community-acquired pneumonia. He does have fairly diffuse interstitial markings in both lung dav[place] that could be infectious or possibly also could be pulmonary edema from CHF). Although broken stone is low, which could suggest a viral pneumonia, we will treat for bacterial pneumonia. Started on antibiotics for community-acquired pneumonia here in the ER-Rocephin and Zithromax. Blood cultures obtained prior to antibiotics. Consider possible viral bronchospasm although lung sounds are more course rather than wheezy. Clif made no significant change in lung sounds but he feels like he is coughing less after that treatment. He does have a low-grade fever at presentation to the ER with a temperature of 99.3?. White count is abnormal at 18. Although with CLL it looks like his baseline white count has ranged between 15-20 since last year. Previously had been higher. Blood pressure is stable type per 10 sit. Venous lactic acid is normal at 0.8. Cardiac. He is not having any chest pain. EKG shows a right bundle branch block, no definite ischemia. However troponin is abnormal elevated at 0.27. Unclear if this is true possibly an ACS or due to demand ischemia. 2 hour delta troponin is actually declining from 0.27 down to 0.18. With bilateral infiltrates on chest x-ray, also consider possible CHF (although cough productive of yellow sputum and fevers would strongly favor a infectious cause). N terminal proBNP level is equivocal at 1100 Heme. Leukocytosis could be from infection but may also be due to CLL. He also has chronic anemia with hemoglobin 11.9. Platelet count 196. Discussed with the tele hospitalist through her rise in at 12:10 a.m.. Discussed the patient's presentation, vital signs, lab findings in detail and the hospitalist accepts for admission here. Discussed again with the patient at 12:15 p.m.. Says he is feeling better and notes that his heart rate is now down into the 90s again. Oxygen maintaining 93% on room air. Not having any chest pain. He is agreeable to be admitted here. Lab Data Labs: Lab Results 09/20/23 09/20/23 09/20/23 Range/Units 08:50 21:10 23:10 WBC 18.00 H (4.50-11.00) K/uL RBC 4.37 (4.30-5.90) m/uL Hgb 11.9 L (13.5-17.5) gm/dL Hct 38.4 (37.0-53.0) % MCV 88 (80-100) fL MCH 27 (26-34) pg MCHC 31 L (32-36) gm/dL RDW Coeff of Ravi 18.0 H (11.5-15.5) % Plt Count 196 (140-440) K/uL Neut % (Auto) 27.8 L (42.0-72.0) % Lymph % (Auto) 67.2 H (20-44) % [place] % (Auto) 3.8 (0.0-11.0) % Eos % (Auto) 1.0 (0.0-7.0) % Baso % (Auto) 0.1 (0.0-3.0) % Neut # (Auto) 5.00 (1.7-7.0) K/uL Lymph # (Auto) 12.10 H (0.90-2.90) K/uL [place] # (Auto) 0.70 (0.00-0.90) K/UL Eos # (Auto) 0.20 (0.00-0.50) K/uL Baso # (Auto) 0.00 (0.00-0.30) K/uL Abs Immat Gran (auto) 0.00 (0.00-0.30) K/uL Imm/Tot Granulo (auto) 0.1 % Diff Slide Review Acceptable Review (Acceptable) Sodium 139 (135-149) mmol/L Potassium 4.2 (3.6-5.1) mmol/L Chloride 111 (96-114) mmol/L Carbon Dioxide 22 (20-32) mmol/L Anion Gap 6 L (7-15) mEq/L BUN 30 (7-30) mg/dL Creatinine 1.0 (0.5-1.5) mg/dL Estimated Creat Clear 50.35 Estimated GFR 73 ml/min Glucose 151 H (60-115) mg/dL Lactate 0.8 (0.5-1.9) mmol/L Calcium 9.1 (8.4-10.6) mg/dL Troponin I 0.27 H* 0.18 H* (0.01-0.04) ng/mL C-Reactive Protein 2.1 H (0.5-1.0) mg/dL NT-Pro-B Natriuret Pep 1140 pg/mL Procalcitonin 0.09 (<0.50) ng/mL SARS-CoV-2 (PCR) Negative SARS-CoV-2 (Negative) Influenza Type A (PCR) Negative PCR FLU A (Negative) Influenza Type B (PCR) Negative PCR FLU B (Negative) RSV (PCR) Negative PCR RSV (Negative) Imaging Data Chest x-ray: Attestation: I have reviewed the pertinent imaging results. Radiologist's impression: IMPRESSION: Diffuse increased interstitial lung markings with strandy opacities in the lateral costophrenic angles bilaterally. Findings may represent pulmonary edema or a diffuse infectious/inflammatory process. ECG Data Attestation: I personally reviewed and interpreted this ECG as follows: Interpretation: Normal sinus rhythm Rate: 94 MT: 194 QRS axis: Left axis deviation. Right bundle-branch block pattern. Also left anterior fascicular block. Voltage criteria for left ventricular hypertrophy ST segment/T wave: No ST segment elevation or depression. LVH with strain affecting T-waves in V1 and V2 QTc: 490 Discharge Plan Discharge Clinical Impression: Elevated troponin, Pneumonia Patient Disposition: Admitted As Observation
--- NOTE | 2023-09-20 21:04 | XR_ITS ---
Patient: FRANK BOWEN Facility:?[facility] Patient ID:?[id number] Site Patient ID:?[id number]. Site :?[id number] Study:?XRay-Chest 2V-09/20/2023 10:01:49 PM Ordering Physician:MARICARMEN Final Report: INDICATION: Cough, rales and rhonchi. TECHNIQUE: Chest 2 views. COMPARISON: None available. FINDINGS: Cardiovascular and mediastinum: Normal heart size. Atherosclerotic thoracic aorta. Lungs and pleural spaces: Diffuse increased interstitial lung markings with strandy opacities in the lateral costophrenic angles bilaterally. No definite pleural effusion or pneumothorax. Bones and soft tissues: Right axillary surgical clips. Degenerative changes of the spine and bilateral shoulders. IMPRESSION: Diffuse increased interstitial lung markings with strandy opacities in the lateral costophrenic angles bilaterally. Findings may represent pulmonary edema or a diffuse infectious/inflammatory process. Dictated by Jose Corea MD @ 09/20/2023 10:12:22 PM Signed by:?Jose Corea MD @09/20/2023 10:12:22 PM (Electronic Signature)
--- OUTSIDE RECORDS SUMMARY | 2023-09-20 21:13 | XMS_ITS | Clinical Summary ---
Author Name Unknown Organization [employer] [facility] Address [place], [place] [address] Care Team Providers Care Core Machine Tender Name Role Phone Luiz Bullock MD Primary Care Provider Allergies Active Allergy Reactions Criticality Noted Date Comments Amlodipine Other - Describe In Comment Field 08/06/2020 Leg swelling on 5mg Metformin Diarrhea 07/03/2020 Medications Medication Sig Dispensed Refills Start Date End Date Status blood-glucose meter As directed. Dispense glucose meter, test strips and lancets covered by the patient insurance. Test 1 times per day. 1 Device 0 01/29/2010 Active indomethacin (INDOCIN) 50 mg capsule One oral three times daily as needed 30 capsule 1 05/22/2014 Active CPAPIndications:ROSA ISELA (obstructive sleep apnea) CPAP machine for home use at pressure 7cm/H2O, full face mask x1/3month with a full face cushion x1/mo 1 Each 11 12/30/2021 Active aspirin chewable 81 mg chewable tablet CHEW AND SWALLOW 1 TABLET EVERY DAY WITH FOOD 03/25/2022 Active blood sugar diagnostic (Truetrack Test) stripIndications:Typ e 2 diabetes mellitus without complication, with long-term current use of insulin (HC) Dispense item covered by pt ins. E11.9 NIDDM type II - Test 1 time/day 100 Each 3 10/21/2022 Active atorvastatin (LIPITOR) 20 mg tabletIndications:Hy perlipidemia, unspecified hyperlipidemia type Take 1 Tablet (20 mg) by mouth once daily. 90 Tablet 3 10/21/2022 Active fluticasone (50 mcg per actuation) nasal solution (FLONASE)Indications :Allergic rhinitis due to pollen, unspecified seasonality Inhale 2 Sprays to both nostrils once daily. 48 g 2 02/25/2023 Active omeprazole (PRILOSEC) 20 mg Delayed-Release capsuleIndications:C hronic GERD Take 1 Capsule (20 mg) by mouth two times daily before meals. 180 Capsule 1 04/22/2023 Active spironolactone (ALDACTONE) 25 mg tabletIndications:Be nign essential HTN Take 1 Tablet (25 mg) by mouth every morning. 90 Tablet 1 04/22/2023 Active carvediloL (COREG) 25 mg tabletIndications:HT N (hypertension) Take 1 Tablet (25 mg) by mouth two times daily with meals. 180 Tablet 1 04/22/2023 Active valsartan (DIOVAN) 320 mg tabletIndications:HT N (hypertension) Take 1 Tablet (320 mg) by mouth once daily. 90 Tablet 1 04/22/2023 Active apixaban (ELIQUIS) 2.5 mg tabletIndications:Pa roxysmal atrial fibrillation (HC) Take 1 Tablet (2.5 mg) by mouth two times daily. 180 Tablet 3 07/18/2023 Active empagliflozin (Jardiance) 25 mg tabletIndications:Ty pe 2 diabetes mellitus without complication, with long-term current use of insulin (HC) Take 1 Tablet (25 mg) by mouth once daily. 90 Tablet 09/10/2023 Active cetirizine (ZYRTEC) 10 mg tabletIndications:So re throat Take 1 Tablet (10 mg) by mouth once daily. 30 Tablet 09/15/2023 Active empagliflozin (Jardiance) 25 mg tabletIndications:Ty pe 2 diabetes mellitus without complication, with long-term current use of insulin (HC) Take 1 Tablet (25 mg) by mouth once daily. 90 Tablet 04/22/2023 4 Discontinue d(Reorder (E-cancel not sent)) empagliflozin (Jardiance) 25 mg tabletIndications:Ty pe 2 diabetes mellitus without complication, with long-term current use of insulin (HC) Take 1 Tablet (25 mg) by mouth once daily. 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 11/26/2021 Type 2 diabetes mellitus wit hout complication, with long-term current use of insulin 10/28/2021 Interstitial lung disease 08/22/2021 Irritable bowel syndrome with diarrhea Hypertensive kidney disease, stage III Coronary artery disease: JAMES , midLAD, prox Cx, OM1 01/10/2021 01/18/2021 Gynecomastia 08/06/2020 Bilateral lower extremity edema 07/03/2020 Migraine syndrome 05/03/2020 ROSA ISELA 04/02/2020 AHI-6.6 04/17/2020 Benign positional vertigo 03/26/2015 Hyperlipidemia 11/22/2012 Chronic lymphocytic leukemia 01/01/2011 Unspecified essential hypertension 10/02/2006 Esophageal reflux 10/02/2006 Resolved Problems Problem Noted Date Diagnosed Date Resolved Date Heart failure 08/22/2021 06/23/2023 Atrial fibrillation 04/17/2020 06/27/19 Cellulitis and abscess of leg, except foot 05/01/2009 06/27/2021 Diabetes mellitus, type 2 10/31/2008 Encounters Date Type Department Care Team Description 09/15/2023 12:00 PM CDT Office Visit [facility] [address] [place] [address] bEoni Morales PA Throat Problem 09/15/2023 Travel 09/09/2023 Refill [facility] [address] [place] [address] Luiz Bullock MD Refill Request (empagliflozin (Jardiance) 25 mg tablet) 09/07/2023 Refill [facility] [address] [place] [address] Luiz Bullock MD Refill Request (JARDIANCE 25MG TAB) 08/14/2023 Refill [facility] [address] [place] [address] Luiz Bullock MD Refill Request (Spironolactone) 07/28/2023 10:41 AM CDT - 07/28/2023 11:59 PM CDT [facility] [address] [place] [address] Luiz Bullock MD Iverson, Ryan, PT Benign paroxysmal positional vertigo, unspecified laterality 07/28/2023 Travel 07/17/2023 Refill [facility] [address] [facility] [address] Luiz Bullock MD Refill Request (ELIQUIS TAB 2.5MG ) 06/23/2023 11:45 AM EDUCATION INTERN Office Visit [facility] [address] [facility] [address] Luiz Bullock MD Medication Management (Discuss omeprazole) 06/23/2023 Travel from Last 3 Months Immunizations Name Administration Dates Next Due AMB INFLUENZA IIV3 (AGE 65+ YRS) PF (Flu Clinic Only) 03/04/2019 AMB Influenza, IIV3 (Age >=3 years)(Flu Clinic Only) 03/09/2012,03/07/2008 AMB Influenza, IIV4 PF (=>6 mos Flulaval,Fluzone Fluarix)(Flu Clinic Only) 04/08/2016 Amb Influenza, Inact (High-d ose) (Flu Clinic Only) 02/09/2014 COVID-19 Vaccine Spikevax (M oderna 50mcg/0.5mL) 12YO+ [id number] Formula PF 05/21/2023 COVID-19 vaccine (Pfizer-Bio NTech 30mcg/0.3mL) 12YO+ BIVALENT PF, MDV 10/21/2022 COVID-19 vaccine (Pfizer-Bio NTech 30mcg/0.3mL) 12YO+ CORBY-SUCROSE PF, MDV 08/22/2021 COVID-19 vaccine (Pfizer-Bio NTech 30mcg/0.3mL) PF, MDV 07/24/2020,07/03/2020 Hepatitis B (Adult) 10/10/2020 Influenza Virus, Unspecified 02/16/2012, 02/16/2008,02/15/2007,2002 Influenza, High-dose Inactivated 03/26/2015,01/17 Influenza, High-dose Quadriv alent Inactivated 02/17/2022,03/07/2021 Influenza, IIV3 (Age 6-35 mos) 02/24/2011,2009 Influenza, IIV3 (Age >=3 years) 02/23/20 13,03/09/2012,02/24/2011,2009,01/17/2009,03/07/2008,02/16/2008,1 ,02/15/2007,03/02/2006, 005,02/29/2004,03/29/2003,03/14/2003 Influenza, IIV4 04/08/2016 Influenza, Inactivated AIIV4 (Age 65+ Years) Preserv Free 04/22/2023,03/06/2020 Influenza, Inactivated IIV3 (Age 65+ Years) Preserv Free 02/03/2018,02/10/2017 Pneumococcal Conj 20-valent (Prevnar 20) 12/30/2021 Pneumococcal Poly,23-Valent (Pneumovax) 01/29/2010,05/18/2004,02/29/2004 Td (Age >=7 Years) 12/25/1998 Td, Preservative Free (age > = 7 Years) 04/17/2009 Tdap 06/12/2020 Zoster (Shingrix-RZV, recombinant) 10/10/2020, Family History Medical History Relation Name Comments Diabetes Mother Relation Name Status Comments Brother 1 Alive x2 Brother 2 x1 Daughter Alive x4 Father Maternal Grandfather Maternal Grandmother Mother Paternal Grandfather Paternal Grandmother Sister 1 Alive x3 Sister 2 x1 Son Alive x2 Social History Tobacco Use Types Packs/Day Years Used Date Smoking Tobacco: Former Cigarettes Q uit: 05/18/1967 Smokeless Tobacco: Never Tobacco Cessation:Counseling Given: No Comments:patient quit on 05-18-67 Alcohol Use Standard Drinks/Week Comments Not Currently 0 (1 standard drink = 0.6 oz pur e alcohol) Less that 1 beer per month. PHQ-2 Answer Date Recorded PHQ-2 TOTAL SCORE 0 12/26/2022 Social Connections Answer Date Recorded Frequency of Communication with Friends and Fami ly 0 09/15/2023 Financial Resource Strain Answer Date R ecorded Difficulty of Paying Living Expenses 3 09/15/2023 Difficulty of Paying Living Expenses Not on file 09/15/2023 Food Insecurity Answer Date Recorded Worried About Running Out of Food in the Last Ye ar 1 09/15/2023 Transportation Needs Answer Date Record ed Lack of Transportation (Medical) 1 09/15/2023 Housing Stability Answer Date Recorded Unable to Pay for Housing in the Last Year 1 09/15/2023 Sex and Gender Information Value Date Recorded Sex Assigned at Not on file Gender Identity Not on file Sexual Orientation Not on file Obstetrics History Last Filed Vital Signs Vital Sign Reading Time Taken Comments Blood Pressure 159/65 09/15/2023 11:54 AM CDT Pulse 75 09/15/2023 11:54 AM CDT Temperature 36.5 ??C (97.7 ??F) 09/15/2023 11:54 AM C DT Respiratory Rate 16 04/02/2023 1:19 PM EDUCATION INTERN Oxygen Saturation 97% 09/15/2023 11:54 AM CDT Inhaled Oxygen Concentration - - Weight 83.5 kg (184 lb) 09/15/2023 11:54 AM CDT Height 171.1 cm (5' 7.36) 12/26/2022 10:51 AM C DT Body Mass Index 28.51 12/26/2022 10:51 AM CDT Plan of Treatment Upcoming Encounters Date Type Department Care Team (Late st Contact Info) Description 09/25/2023 10:30 AM CDT Office Visit [facility] [address] [place] [address] Luiz Bullock MD [address] [place] [address] 10/21/2023 4:00 PM CDT Office Visit [facility] [address] [place] [address] Jennifer Ko PA [facility] [place] [address] 10/26/2023 10:05 AM CDT Office Visit [facility] [address] [place] [address] Bullock, [place] [address] Health Maintenance Due Date Last Done Comments COVID-19 vaccine series (2022-24 season) 2023 05/21/2023, 10/21/2022, 03/05/2022, Additional history exists BMI (ht and wt on same day) for age 18+ 12/27/2023 12/26/2022, 07/18/2022, 12/30/2021, Additional history exists Medicare Wellness for age 65+ 12/27/2023 12/26/2022, 05/03/2020 Depression screening for age 12+ 12/30/2023 12/29/2022, 12/26/2022, 06/03/2021, Additional history exists Influenza for age 65+ 01/17/2024 04/22/2023 , 02/17/2022, 03/07/2021, Additional history exists Tetanus booster 06/12/2030 06/12/2020, 12/0 05/2008, 12/25/1998 Tdap Completed 06/12/2020 Zoster (shingles) series for age 50+ Completed 10/10/2020, 06/12/2020 Pneumococcal series for age 65+ Completed 12/30/2021, 01/29/2010, 05/18/2004, Additional history exists Procedures Procedure Name Priority Date/Time Associated Diagnosis Comments THROAT RAPID STREP ONLY CLINIC Routine 09/15/2023 11:50 AM CDT Sore throat from Last 3 Months Results * THROAT RAPID STREP ONLY CLINIC (09/15/2023 11:50 AM CDT) THROAT RAPID STREP A ANTIGEN Negative 09/15/2023 12:03 PM CDT [facility] Throat SPECIMEN FROM THROAT / Unknown Non-Blood / Unknown 09/15/2023 11:50 AM CDT 09/15/2023 11:53 AM CDT [facility] [address] [place] [address], [place] [phone] from Last 3 Months Care Teams Core Machine Tender Relationship Specialty Start Date End Date Luiz Bullock MD [address] [place] [address] PCP - General Family Practice 07/03/20
--- OUTSIDE RECORDS SUMMARY | 2023-09-20 21:13 | XMS_ITS ---
Author Name Unknown Organization [facility] Address [address] [place] [address] Care Team Providers Care Dinkey Brakeman Name Role Phone Unavailable Unavailable Unavailable Surgery Details Not on file Complications Check Surgery Details section. Procedure Estimated Blood Loss Check Surgery Details section. Procedure Findings Check Surgery Details section. Procedure Specimens Taken Check Surgery Details section.
--- OUTSIDE RECORDS SUMMARY | 2023-09-20 21:13 | XMS_ITS | Encounter Summary ---
Author Name Unknown Organization [facility] Address [address] [place] [address] Care Team Providers Care Livestock Yard Supervisor Name Role Phone Elsewhere, Pcp Primary Care Provider Unavailabl e Reason for Visit * Reason Comments Eye Exam * Outpatient (Routine) - Closed Specialty Diagnoses / Procedures Referred By Fidelina hernandez Referred To Contact Ophthalmology Jose Herman M.D. [address] [place] [address] [facility] Referral ID Status Reason Start Date Expiration Date Visits Re quested Visits Authorized [id number] Closed 06/11/2022 06/10/2025 1 1 Encounter Details Date Type Department Care Team (Latest Contact Info) Description 08/12/2023 11:45 AM CDT Office Visit Department of Ophthalmology in [place], [place] [address] [place] [address] Jose Herman M.D. 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 Patient declined 12/31/2021 Within the last year, have y ou been humiliated or emotionally abused in other ways by your partner or ex-partner? Patient declined 12/31/2021 Within the last year, have y ou been kicked, hit, slapped, or otherwise physically hurt by your partner or ex-partner? Patient declined 12/31/2021 Within the last year, have y ou been raped or forced to have any kind of sexual activity by your partner or ex-partner? Patient declined 12/31/2021 Social Connection and Isolat ion Panel [NHANES] Answer Date Recorded In a typical week, how many times do you talk on the phone with family, friends, or neighbors? More than three times a week 12/31/2021 How often do you get togethe r with friends or relatives? Three times a week 12/31/2021 How often do you attend chur or jain services? Patient declined 12/31/2021 Do you belong to any clubs o r organizations such as voodoo groups, unions, fraternal or athletic groups, or school groups? No 12/31/2021 How often do you attend meet ings of the clubs or organizations you belong to? Patient declined 12/31/2021 Are you , , di vorced, , never , or living with a partner? 12/31/2021 AUDIT-C Answer Date Recorded Q1: How often do you have a drink containing alc ohol? Monthly or less 12/31/2021 Q2: How many drinks containi ng alcohol do you have on a typical day when you are drinking? 1 or 2 12/31/2021 Q3: How often do you have si x or more drinks on one occasion? Never 12/31/2021 Overall Financial Resource Strain (CARDIA) Answe r Date Recorded How hard is it for you to pa y for the very basics like food, housing, medical care, and heating? Not hard at all 12/31/2021 [facility] [place] [facility] [employer] - Occupational Stress Questionnaire Answer Date Recorded Do you feel stress - tense, restless, nervous, or anxious, or unable to sleep at night because your mind is troubled all the time - these days? Not at all 12/31/2021 Exercise Vital Sign Answer Date Recorde d On average, how many days pe r week do you engage in moderate to strenuous exercise (like a brisk walk)? 3 days 12/31/2021 On average, how many minutes do you engage in exercise at this level? 30 min 12/31/2021 Hunger Vital Sign Answer Date Recorded Within the past 12 months, y ou worried that your food would run out before you got the money to buy more. Patient declined Within the past 12 months, t he food you bought just didn't last and you didn't have money to get more. Never true PRAPARE - Transportation Answer Date Re corded In the past 12 months, has l ack of transportation kept you from medical appointments or from getting medications? No 12/16 In the past 12 months, has l ack of transportation kept you from meetings, work, or from getting things needed for daily living? No 12/31/2021 Housing Stability Vital Sign Answer Rosalino e Recorded In the last 12 months, was t here a time when you were not able to pay the mortgage or rent on time? No 12/31/2021 In the last 12 months, how many places have you lived? 1 12/31/2021 In the last 12 months, was t here a time when you did not have a steady place to sleep or slept in a prison (including now)? No 12/31/2021 Nutrition Answer Date Recorded Nutrition: EVOO Fat Source Yes 12/31 On average, how many serving s of fruits and vegetables do you eat per day (serving size is equal to 1 cup or approximately the size of a tennis ball)? 2-3 12/31/2021 Dental Answer Date Recorded Dental: Regular Dentist Yes 01/01/20 Employment Answer Date Recorded Employment status Retired 12/31/2021 Education Answer Date Recorded What is the highest level of school you have completed or the highest degree you have received? 12th grade 12/31/2021 Sex and Gender Information Value Date Recorded Sex Assigned at Male 12/31/2021 3:41 PM CDT Gender Identity Male 12/09/2017 1:17 PM CDT Sexual Orientation Straight 12/09/2017 1: 17 PM CDT documented as of this encounter Consult Notes * Jose Herman M.D. - 08/12/2023 11:[address] Manuel, Thank you for your excellent care of Liza! He is seeing great! It is amazing the good work he did with his cataract surgery. His is anterior chamber so much deeper. He is seeing 20/20 in both eyes! I saw liza because of some peripheral ischemia in his retina with intraretinal hemorrhages and neovascularization. He is undergone PRP in the in the past. He was presume secondary to his leukemia. The preretinal hemorrhage appears to have resolved. He looks great! He has mild epiretinal membranes in both eyes. I showed him what looks like on the OCT. We will teach him how to use Amsler grid. If his vision gets more wavy or distorted received a spot, he will return to clinic immediately. I will see him back again in a year or sooner if any problems! I wish him good year! Exam: See note Assessment/plan: 1. Pseudophakia, with mild posterior capsular opacification, both eyes 2. 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 Mild epiretinal membranes, both eyes: -teach patient how to use Amsler grid -handout about epiretinal membrane Plan: -observe -return to clinic in 1 year for dilated fundus exam and OCT in both eyes or sooner if any problems documented in this encounter Plan of Treatment Upcoming Encounters Date Type Department Care Team (Late st Contact Info) Description 11/06/2023 11:00 AM CDT Appointment Department of Laboratory Medicine and Pathology, [facility], in [place], [place] [address] [place] [address] Dung Barry M.B., Ch.B. [address] [place] [address] 11/06/2023 1:00 PM CDT Office Visit Division of Hematology in [place], [place] [address] [place] [address] Summer Mars, WANDA, C.N.P., M.S. 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
--- OUTSIDE RECORDS SUMMARY | 2023-09-20 21:13 | XMS_ITS | Clinical Summary ---
Author Name Unknown Organization [facility] Address [address] [place] [address] Care Team Providers Care Hotel Controller Name Role Phone Elsewhere, Pcp Primary Care Provider Unavailabl e Source Comments Patient records contain information from all sites at [facility]. For routine questions regarding patient records, call [phone] during business hours, M-F 8:00 AM - 5:00 PM Central Time. Record requests for emergency care only can be directed to [phone] at any time.[facility] Allergies Active Allergy Reactions Criticality Noted Date Comments Amlodipine Other (see comments),Edema (Reselect Reaction) Low 08/06/2020 Leg swelling on 5mg Leg swelling on 5mg Leg swelling on 5mg Metformin Diarrhea,GI intolerance High 07/03/2020 Medications Medication Sig Dispensed Refills Start Date End Date Status omega-3 fatty acids/fish oil (OMEGA 3 FISH OIL ORAL) Take 1 capsule by mouth daily. 11/20/2016 Active ascorbic acid, vitamin C, (VITAMIN C) 500 mg tablet Take 1 tablet by mouth daily. 10/01/2011 Active vitamin E 400 unit capsule Take 1 capsule by mouth daily. 10/01/2011 Active carvediloL (COREG) 25 mg tablet Take 25 mg by mouth 2 (two) times a day with meals. 03/06/2020 Active atorvastatin (LIPITOR) 20 mg tablet Take 20 mg by mouth at bedtime. 06/08/2020 Active silver sulfADIAZINE (SILVADENE, SSD) 1 % cream Apply 1 application topically as needed. 04/15/2019 Active triamcinolone (KENALOG) 0.1 % cream Apply 1 application topically as needed. 09/18/2020 Active valsartan (DIOVAN) 320 mg tablet Take 320 mg by mouth daily. 02/21/2020 Active DME CPAP DME Order Active spironolactone (ALDACTONE) 25 mg tablet Take 0.5 tablets (12.5 mg total) by mouth daily. 45 tablet 3 03/05/2021 Active Additional Information Patient taking differently: 25 mgoral Daily,25 mg Daily, Reported on 08/11/2023 fluticasone propionate (FLONASE) 50 mcg/actuation nasal spray Administer 2 sprays into nostril(s) as needed. 03/08/2021 Active omeprazole (PriLOSEC) [address] capsule Take 40 mg by mouth every morning before breakfast. 06/27/2021 Active salmon oiL-omega-3 fatty acids 1,000-210 mg capsule Take 1 capsule by mouth daily. 08/06/2021 Active blood sugar diagnostic (Truetrack Test) strips TEST 1 TIME PER DAY 09/13/2021 Active Accu-Chek Guide Glucose Meter misc See Admin Instructions. 10/30/2021 Active Accu-Chek Softclix Lancets lancets daily. for testing 10/30/2021 A ctive aspirin [address] tablet Take 1 tablet (81 mg total) by mouth daily. 30 tablet 11/21/2021 Active empagliflozin (JARDIANCE) 25 mg tablet Take by mouth. 06/15/2022 Active Eliquis 2.5 mg tablet 2.5 mg 2 (two) times a day. 07/18/2022 Active ofloxacin (OCUFLOX) 0.3 % ophthalmic solution Use one drop in the operated eye four times daily for 7 days. Start the evening before surgery. 5 mL 10/20/2022 Active Additional Information Patient not taking.Reported on 04/13/2023 doxycycline hyclate (VIBRA-TABS) 100 mg tablet Take 100 mg by mouth as needed (gout). 02/24/2023 Active peg 400-propylene glycol (SYSTANE) 0.4-0.3 % ophthalmic solution Administer 1 drop into both eyes 2 (two) times a day as needed for dry eyes. 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 Angina Pectoris (Angina Equivalent) 01/10/2021 Coronary Stent Status Post 01/10/2021 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 Glomerular Filtration Rate (GFR) 45 To 59 01/10/2021 Hemorrhage Retinal Bilateral 01/02/2021 Hemorrhage Vitreous Right 01/02/2021 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 01/02/2021 Overview: Diagnosis Maintenance Updates May 2023 Sickle Cell Disease 01/02/2021 Dyspnea On Exertion 01/02/2021 Overview: Added automatically from request for surgery [id number] Migraine Headache With Aura 01/01/2021 Stenosis Aortic Valve Acquired 12/31/2020 Diabetes Mellitus Type 2 12/31/2020 Amaurosis Fugax 12/31/2020 Lung Interstitial Disease 12/31/2020 Anemia 12/07/2018 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 from Last 3 Months Immunizations Name Administration Dates Next Due HepA Adult 10/10/2020(Deferred: Patient dec ision) HepB Adult (HEPLISAV-B) 10/10/2020(Deferred: Par ental decision) Influenza Split 02/16/2012, 8,02/15/2007,2002 Influenza TIV (IM) 03/04/2019 Influenza, Quadrivalent, Adj uvanted, Preservative Free 03/06/2020 PPSV23(Discontinued) 01/29/2010,05/18/2004,02/28 RZV (SHINGRIX) 10/10/2020,06/12/2020 SARS-COV-2 (COVID-19) - PFIZ ER (Discontinued)(12 years or older) 01/30/2021 Td Preservative Free (TENIVA C, DECAVAC) 04/17/2009 Td, (Adult) Unspecified 12/25/1998 Tdap 06/12/2020 Family History Medical History Relation Name Comments Cataracts Brother 1 vincent Coronary artery disease Brother 1 vincent hear t attack bypass Diabetes Brother 1 vincent Hypertension Brother 1 vincent meds Macular degeneration Brother 1 vincent Cataracts Brother 2 javier Coronary artery disease Brother 3 maria t Hyperlipidemia Brother 3 maria t Coronary artery disease Mother Diabetes Mother Obesity Mother Amblyopia Neg Hx Blindness Neg Hx Strabismus Neg Hx Relation Name Status Comments Brother 1 vincent Brother 2 javier Brother 3 maria t Mother Social History Tobacco Use Types Packs/Day Years Used Date Smoking Tobacco: Former Cigarettes 1 17 0 10/21/1950 - 10/31/1967 Smokeless Tobacco: Never Tobacco Cessation:Counseling Given: Not Answered Alcohol Use Standard Drinks/Week Comments Yes 1 [...] How often do you attend chur or buddhist services? Patient declined 12/31/2021 Do you belong to any clubs o r organizations such as roman catholic groups, unions, [...] and heating? Not hard at all 12/31/2021 [facility] of Occupat ional Health - Occupational Stress [...] slept in a skilled nursing (including now)? No 12/31/2021 Nutrition Answer Date [...] Orientation Straight 12/09/2017 1: 17 PM CDT Last Filed Vital Signs Vital Sign Reading Time Taken Comments Blood Pressure 138/45 04/13/2023 9:12 AM STRIPPING SHOVEL OILER Pulse 70 04/13/2023 9:12 AM STRIPPING SHOVEL OILER Temperature 36.8 ??C (98.2 ??F) 04/13/2023 9:00 AM CS T Respiratory Rate 16 04/06/2023 5:43 PM STRIPPING SHOVEL OILER Oxygen Saturation 94% 04/07/2023 2:15 AM STRIPPING SHOVEL OILER Inhaled Oxygen Concentration - - Weight 84 kg (185 lb 3 oz) 11/05/2022 3:54 PM CD T Height 171 cm (5' 7.32) 11/05/2022 3:54 PM CDT Body Mass Index 28.73 11/05/2022 3:54 PM CDT Plan of Treatment Upcoming Encounters Date Type Department Care Team (Late st Contact Info) Description 11/06/2023 11:00 AM CDT Appointment Department of Laboratory Medicine and Pathology, [facility], in [place], [place] [address] [place] [phone] Dung Barry M.B., Ch.B. [address] [place] [phone] 11/06/2023 1:00 PM CDT Office Visit Division of Hematology in [address] [phone] Summer Mars, WANDA, C.N.P., M.S. [address] [place] [phone] Health Maintenance Due Date Last Done Comments Diabetic Office Visit with Foot Exam 1935 Hemoglobin A1C 1935 Urine Albumin 1935 Hepatitis B Vaccines (2 of 3 - Risk 3-dose series) 11/07/2020 10/10/2020 Depression Screening (Annual PHQ-2) 05/18/2023 Fall Risk Screen (Annual) 05/18/2023 COVID-19 Vaccine (8 - 2023-24 season) 2023 05/21/2023, 10/21/2022, 03/05/2022, Additional history exists Creatinine Level (Kidney Function Test) 04/22/2024 04/22/2023, 04/06/2023, 12/05/2022, Additional history exists Potassium Level 04/22/2024 04/22/2023, 03/19, 09/05/2022, Additional history exists Sodium Level 04/22/2024 04/22/2023, 03/19, 09/05/2022, Additional history exists Dilated Eye Exam 08/11/2024 08/12/2023, , 08/07/2022, Additional history exists DTaP,Tdap,and Td Vaccines (2 - Td or Tdap) 06/12/2030 06/12/2020, 04/17/2009, 12/25/1998 Zoster Vaccines Completed 10/10/2020, 06/12/2020 Pneumococcal vaccine (65+ years) Completed 12/30/2021, 01/29/2010, 05/18/2004, Additional history exists Influenza Vaccine Completed 04/22/2023, , 03/07/2021, Additional history exists HPV Vaccines Aged Out No longer eligi ble based on patient's age to complete this topic Medical Devices Implanted Type Area Workers' Compensation Commissioner Device Identifier Shelf Expiration Date Model / Serial / Lot Stnt Synergy Xd De 2.50x32 - [id number] Implanted:Qty : 1 on 01/10/2021 by Jeffery Arroyo M.D., Ph.D. at [facility] Cardiac Stent N/A: Coronary [employer] 04/30/2022 [id number] / / [id number] Description:Mid LAD Stnt Synergy Xd De 3.00x32 - [id number] Implanted:Qty : 1 on 01/10/2021 by Jeffery Arroyo M.D., Ph.D. at [facility] Cardiac Stent N/A: Coronary [employer] 09/27/2022 [id number] / / [id number] Description:OM Stnt Synergy Xd De 3.50x12 - [id number] Implanted:Qty : 1 on 01/10/2021 by Jeffery Arroyo M.D., Ph.D. at [facility] Cardiac Stent N/A: Coronary [employer] 08/21/2022 [id number] / / [id number] Description:pLCx Lens Tcn Mnfcl Dcb00 +22.5d - [id number] - [id number] Implanted:Qty : 1 on 09/11/2022 by Rosina Manuel M.D. at [facility] Lawson[employer]Gonda Ocular Lens Left: Eye [employer] (Previously MERRY) 07/01/2025 [id number] / [id number] / Lens Tcn Mnfcl Dcb00 +23.0d - [id number] - [id number] Implanted:Qty : 1 on 10/28/2022 by Santosh Toth M.D., Ph.D. 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 Central macular thickness 276 um. Left Eye OCT device used was Spectralis . Central macular thickness 264 um. Notes Right eye: normal contour, blunted contour, erm Left eye: normal contour, erm, stable, +VMA Jose Herman M.D. OPHTH TOMOGRAPHY Performing Organization Address [facility]/ZIP Co de Phone Number OPHTHALMOLOGY IMAGING EXAM * Eyes Spectralis OCT-Ophthalmology Image Exam (08/12/2023 12:00 AM CDT) Narrative IIMS - 08/12/2023 4:16 PM CDT This order has been created and auto-finalized to support the import of images acquired without order. The clinical documentation to support these images can be found on the encounter that produced images. Provider Not In System IMG NON RAD IMAGI NG PROCEDURES Performing Organization Address [facility] Co de Phone Number IIMS NA from Last 3 Months or Most Recently Relevant to Health Maintenance Advance Directives For more information, please contact: [phone] * Full Code (Latest Code Status on File) Date Activated Date Inactivated Comments 01/10/2021 12:05 PM 01/11/2021 2:12 PM Question Answer Comments Full Code: Discussed Care Teams Hotel Controller Relationship Specialty Start Date End Date Elsewhere, Pcp PCP - General Family Medicine 01/10/21
--- OUTSIDE RECORDS SUMMARY | 2023-09-20 21:13 | XMS_ITS | Encounter Summary ---
Author Name Unknown Organization [facility] Address [address] [place] [address] Care Team Providers Care Laborer Concrete Paving Name Role Phone Elsewhere, Pcp Primary Care Provider Unavailabl e Encounter Details Date Type Department Care Team (Latest Contact Info) Description 08/11/2023 12:30 PM CDT Clinical Communication Virtual Review in [place], [place] [address] [place] [address] Social History Tobacco Use Types Packs/Day Years [...] 12/31/2021 How often do you attend chur ch or faith services? Patient declined 12/31/2021 Do you belong to any clubs o r organizations such as gnosticist groups, unions, fraternal [...] and heating? Not hard at all 12/31/2021 [facility] of Occupat ional Health - Occupational Stress [...] slept in a senior care (including now)? No 12/31/2021 Nutrition Answer Date [...] as of this encounter Plan of Treatment Upcoming Encounters Date Type Department Care Team (Late st Contact Info) Description 11/06/2023 11:00 AM CDT Appointment Department of Laboratory Medicine and Pathology, [facility], in [place], [place] [address] [place] [phone] Dung Barry M.B., Ch.B. [address] [place] [phone] 11/06/2023 1:00 PM CDT Office Visit Division of Hematology in [place], [place] [address] [place] [phone] Summer Mars, MECHANIC ASSISTANT, C.N.P., M.S. [address] [place] [phone] documented as of this encounter Visit Diagnoses Not on filedocumented in this encounter Care Teams Laborer Concrete Paving Relationship Specialty Start Date End Date Elsewhere, Pcp PCP - General Family Medicine 01/10/21 documented as of this encounter
--- OUTSIDE RECORDS SUMMARY | 2023-09-20 21:13 | XMS_ITS | Encounter Summary ---
Author Name Unknown Organization [facility] Address [address] [place] [address] Care Team Providers Care Sales Office Administrator Name Role Phone Elsewhere, Pcp Primary Care Provider Unavailabl e Reason for Referral * Outpatient (Routine) - Authorized Specialty Diagnoses / Procedures Referred By Fidelina hernandez Referred To Contact Ophthalmology Jose Herman M.D. [address] [place] [phone] [facility] Referral ID Status Reason Start Date Expiration Date V isits Requested Visits Authorized [id number] Authorized 08/12/2023 02/10/2025 1 1 Encounter Details Date Type Department Care Team (Late st Contact Info) Description 08/12/2023 Orders Only Department of Ophthalmology in [place], [place] [address] [place] [address] Katie Lloyd, [facility] Hemorrhage Vitreous Right (HCC) (Primary Dx) Social History Tobacco Use [...] How often do you attend chur or confucianism services? Patient declined 12/31/2021 Do you belong to any clubs o r organizations such as christianity groups, unions, fraternal [...] and heating? Not hard at all 12/31/2021 [facility] of Occupat ional Health - Occupational Stress [...] or slept in a halfway (including now)? No 12/31/2021 Nutrition Answer Date [...] Appointment Department of Laboratory Medicine and Pathology, [facility], in [place], [place] [address] [place] [address] Dung Barry M.B., Ch.B. [address] [place] [address] 11/06/2023 1:00 PM CDT Office Visit Division of Hematology in [place], [place] [address] [place] [phone] Summer Mars, WANDA CSimonN.P., M.S. [address] [place] [address] Scheduled Orders Name Type Priority Associated Diagnoses Orde r Schedule Optical Coherence Tomography - Macula/Retina - OU - Both Eyes Ophthalmology Routine Hemorrhage Vitreous Right (HCC) Expected: 08/11/2024, Expires: 11/11/2024 Scheduled Referrals Name Type Priority Associated Diagnoses Order Schedule Ophthalmology office visit (clinic) Outpatient Referral Routine Expected: 08/11/2024, Expires: 11/11/2024 documented as of this encounter Visit Diagnoses Diagnosis Hemorrhage Vitreous Right (HCC)- Primary documented in this encounter Care Teams Sales Office Administrator Relationship Specialty Start Date End Date Elsewhere, Pcp PCP - General Family Medicine 01/10/21 documented as of this encounter
--- OUTSIDE RECORDS SUMMARY | 2023-09-20 21:13 | XMS_ITS | Encounter Summary ---
Author Name Unknown Organization [facility] Address [address] [place] [address] Care Team Providers Care Millwright Helper Name Role Phone Elsewhere, Pcp Primary Care Provider Unavailabl e Encounter Details Date Type Department Care Team (Latest Contact Info) Description 06/22/2023 Clinical Communication Department of Ophthalmology in [place], [place] [address] [place] [address] Jose Herman M.D. [address] [place] [phone] Social History Tobacco Use Types Packs/Day Years [...] often do you attend chur ch or caodaism services? Patient declined 12/31/2021 Do you belong to any clubs o r organizations such as evangelical groups, unions, fraternal [...] and heating? Not hard at all 12/31/2021 [facility] of Occupat ional Health - Occupational Stress [...] slept in a group home (including now)? No 12/31/2021 Nutrition Answer Date [...] Appointment Department of Laboratory Medicine and Pathology, [facility], in [place], [place] [address] [place] [phone] Dung Baryr M.B., Ch.B. [address] [place] [phone] 11/06/2023 1:00 PM CDT Office Visit Division of Hematology in [place], [place] [address] [place] [phone] Summer Mars, WANDA, C.N.P., M.S. [address] [place] [address] documented as of this encounter Visit Diagnoses Not on filedocumented in this encounter Care Teams Millwright Helper Relationship Specialty Start Date End Date Elsewhere, Pcp PCP - General Family Medicine 01/10/21 documented as of this encounter
--- OUTSIDE RECORDS SUMMARY | 2023-09-20 21:13 | XMS_ITS | Referral Summary ---
Author Name Unknown Organization [facility] Address [address] [place] [id number] Care Team Providers Care Learn To Swim Instructor Name Role Phone Elsewhere, Pcp Primary Care Provider Unavailabl e Source Comments Patient records contain information from all sites at [facility]. For routine questions regarding patient records, call [phone] during business hours, M-F 8:00 AM - 5:00 PM Central Time. Record requests for emergency care only can be directed to [phone] at any time.[facility] Encounters Date Type Department Care Team Description 08/12/2023 Ancillary Procedure Department of Ophthalmology 08/12/2023 Orders Only Department of Ophthalmology in [place], [place] [address] [place] [phone] Katie Lloyd, HERMINIA Hemorrhage Vitreous Right (HCC) (Primary Dx) 08/12/2023 11:45 AM CDT Office Visit Department of Ophthalmology in [place], [place] [address] [place] [phone] Jose Herman M.D. 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 [...] Overview: Added automatically from request for surgery [id number] Migraine Headache With Aura 01/01/2021 Stenosis Aortic Valve Acquired 12/31/2020 Diabetes Mellitus Type 2 12/31/2020 Amaurosis Fugax 12/31/2020 Lung Interstitial Disease 12/31/2020 Anemia 12/07/2018 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 Immunizations Name Administration Dates Next Due HepA Adult 10/10/2020(Deferred: Patient deepak pinto) HepB Adult (HEPLISAV-B) 10/10/2020(Deferred: Par ental decision) Influenza Split 02/16/2012, 8,02/15/2007,2002 Influenza TIV (IM) 03/04/2019 Influenza, Quadrivalent, Adj uvanted, Preservative Free 03/06/2020 PPSV23(Discontinued) 01/29/2010,05/18/2004,02/28 RZV (SHINGRIX) 10/10/2020,06/12/2020 SARS-COV-2 (COVID-19) - PFIZ ER (Discontinued)(12 years or older) 01/30/2021 Td Preservative Free (TENIVA C, DECAVAC) 04/17/2009 Td, (Adult) Unspecified 12/25/1998 Tdap 06/12/2020 Social History Tobacco Use Types Packs/Day Years [...] How often do you attend chur or pentecostal services? Patient declined 12/31/2021 Do you belong [...] and heating? Not hard at all 12/31/2021 [facility] of Occupat ional Health - Occupational Stress [...] or slept in a alf (including now)? No 12/31/2021 Nutrition Answer Date [...] Comments Blood Pressure 138/45 04/13/2023 9:12 AM CABINETMAKER SUPERVISOR Pulse 70 04/13/2023 9:12 AM CABINETMAKER SUPERVISOR Temperature 36.8 ??C (98.2 ??F) 04/13/2023 9:00 AM CS T Respiratory Rate 16 04/06/2023 5:43 PM CABINETMAKER SUPERVISOR Oxygen Saturation 94% 04/07/2023 2:15 AM CABINETMAKER SUPERVISOR Inhaled Oxygen Concentration - - Weight 84 kg (185 lb 3 oz) 11/05/2022 3:54 PM CD T Height 171 cm (5' 7.32) 11/05/2022 3:54 PM CDT Body Mass Index 28.73 11/05/2022 3:54 PM CDT Plan of Treatment Upcoming Encounters Date Type Department Care Team (Late st Contact Info) Description 11/06/2023 11:00 AM CDT Appointment Department of Laboratory Medicine and Pathology, [facility] in [place], [place] [address] [place] [phone] Dung Barry M.B., Ch.B. [address] [place] [phone] 11/06/2023 1:00 PM CDT Office Visit Division of Hematology in [place], [place] [address] [place] [phone] Summer Mars, WANDA, C.N.P., M.S. [address] [place] [phone] Medical Devices Implanted Type Area Lower School Spanish Teacher Device Identifier Shelf Expiration Date Model / Serial / Lot Stnt Synergy Xd De 2.50x32 - [id number] Implanted:Qty : 1 on 01/10/2021 by Jeffery Arroyo M.D., Ph.D. at [facility] Cardiac Stent N/A: Coronary [employer] [place] 04/30/2022 [id number] / / [id number] Description:Mid LAD Stnt Synergy Xd De 3.00x32 - [id number] Implanted:Qty : 1 on 01/10/2021 by Jeffery Arroyo M.D., Ph.D. at [facility] Cardiac Stent N/A: Coronary [employer] [place] [employer] 09/27/2022 [id number] / / [id number] Description:OM Stnt Synergy Xd De 3.50x12 - [id number] Implanted:Qty : 1 on 01/10/2021 by Jeffery Arroyo M.D., Ph.D. at [facility] Cardiac Stent N/A: Coronary [employer] [place] [employer] 08/21/2022 [id number] / / [id number] Description:pLCx Lens Tcn Mnfcl Dcb00 +22.5d - [id number] - [id number] Implanted:Qty : 1 on 09/11/2022 by Rosina Manuel M.D. at [facility] Ocular Lens Left: Eye [employer] (Previously MERRY) 07/01/2025 [id number] / [id number] / Lens Tcn Mnfcl Dcb00 +23.0d - [id number] - [id number] Implanted:Qty : 1 on 10/28/2022 by Santosh Toth M.D., Ph.D. 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 OPHTH TOMOGRAPHY OPHTHALMOLOGY IMAGING EXAM * Eyes Spectralis OCT-Ophthalmology [...] RAD IMAGI NG PROCEDURES Performing Organization Address City/[facility] [place] [facility]/ZIP Co de Phone Number IIMS NA from Last 3 Months or Most Recently Relevant to Health Maintenance Advance Directives For more information, please contact: [phone] * Full Code (Latest Code Status on File) Date Activated Date Inactivated Comments 01/10/2021 12:05 PM 01/11/2021 2:12 PM Question Answer Comments Full Code: Discussed Care Teams Learn To Swim Instructor Relationship Specialty Start Date End Date Elsewhere, Pcp PCP - General Family Medicine 01/10/21
--- OUTSIDE RECORDS SUMMARY | 2023-09-20 21:13 | XMS_ITS | Encounter Summary ---
Author Name Unknown Organization [facility] Address [address] [place] [address] Care Team Providers Care Basin Cleaner Name Role Phone Elsewhere, Pcp Primary Care Provider Unavailabl e Encounter Details Date Type Department Care Team (Latest Contact Info) Description 08/12/2023 11:20 AM CDT Ancillary Procedure Department of Ophthalmology in [place], [place] [address] [place] [phone] Jose Herman M.D. 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 Patient declined 12/31/2021 Do you belong to any clubs o r organizations such as rastafari groups, unions, fraternal [...] and heating? Not hard at all 12/31/2021 [facility] of Occupat ional Health - Occupational [...] or slept in a mcfp (including now)? No 12/31/2021 Nutrition Answer Date [...] Appointment Department of Laboratory Medicine and Pathology, [facility], in [place], [place] 200 [place] [address] Dung Barry M.B., Ch.B. 200 [place] [phone] 11/06/2023 1:00 PM CDT Office Visit Division of Hematology in [place], [place] [address] [place] [phone] Summer Mars, WANDA, C.N.P., M.S. 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 Central macular thickness 276 um. Left Eye OCT device used was Spectralis . Central macular thickness 264 um. Notes Right eye: normal contour, blunted contour, erm Left eye: normal contour, erm, stable, +VMA Jose Herman M.D. 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
--- OUTSIDE RECORDS SUMMARY | 2023-09-20 21:13 | XMS_ITS | Clinical Summary ---
Author Name Unknown Organization [facility] [employer] [facility] Address [address] [address] Phone Care Team Providers Care Airline Lounge Receptionist Name Role Phone Unavailable Primary Care Provider Unavailabl e Allergies Active Allergy Reactions Criticality Noted Date Comments Amlodipine Other,Unknown Low 08/06/2020 Leg swelling on 5mg Leg swelling on 5mg Metformin Diarrhea Low 07/03/2020 Medications Medication Sig Dispensed Refills Start Date End Date Status empagliflozin (Jardiance) 25 MG Tablet Take 25 mg by mouth one time a day. Do not chew or crush. Active spironolactone (Aldactone) 25 MG tablet Take 25 mg by mouth one time a day. Active carvedilol (Coreg) 25 MG tablet Take 25 mg by mouth two times a day with meals. Active valsartan (Diovan) 320 MG tablet Take 320 mg by mouth one time a day. Active omeprazole (PriLOSEC) 20 MG delayed-release capsule Take 20 mg by mouth one time a day. Take before meals. Do not crush. Active atorvaSTATin (Lipitor) 20 MG tablet Take 20 mg by mouth one time a day. Active Active Problems Problem Noted Date Diagnosed Date BRBPR (bright red blood per rectum) 03/23/2022 Hemorrhagic shock 03/23/2022 Surgical History Surgery Date Site/Laterality Comments OTHER SURGICAL HISTORY 03/22/2022 Groin/Right Procedure: Mesenteric angiogram; Surgeon: Yair Jones MD; Location: [facility] INTERVENTIONAL RADIOLOGY COLONOSCOPY 03/23/2022 Colon/N/A No repeat due to age. Medical devices from this surgery are in the Medical Devices section. Social History Tobacco Use Types Packs/Day Years Used Date Smoking Tobacco: Former Cigarettes 0.5 30 1 953 - 1982 Smokeless Tobacco: Never Tobacco Cessation:Counseling Given: No Sex and Gender Information Value Date Recorded Sex Assigned at Male 03/22/2022 3:33 PM CDT Gender Identity Male 03/22/2022 3:33 PM CDT Sexual Orientation Not on file Job Start Date Occupation Industry Not on file Not on file Not on file Obstetrics History Last Filed Vital Signs Vital Sign Reading Time Taken Comments Blood Pressure 162/49 03/25/2022 4:27 PM TERMITE CONTROL REPRESENTATIVE Pulse 74 03/25/2022 4:27 PM TERMITE CONTROL REPRESENTATIVE Temperature 36.6 ??C (97.8 ??F) 03/25/2022 4:27 PM CS T Respiratory Rate 20 03/25/2022 4:27 PM TERMITE CONTROL REPRESENTATIVE Oxygen Saturation 95% 03/25/2022 4:27 PM TERMITE CONTROL REPRESENTATIVE Inhaled Oxygen Concentration - - Weight 91.5 kg (201 lb 11.5 oz) 03/25/2022 6:00 AM TERMITE CONTROL REPRESENTATIVE Height 174 cm (5' 8.5) 03/22/2022 2:30 PM CDT Body Mass Index 30.23 03/22/2022 2:30 PM CDT Plan of Treatment Health Maintenance Due Date Last Done Comments MEDICARE AWV 1935 PERTUSSIS (Standing Order) 11/14/1954 TETANUS (Standing Order) 11/14/1954 Shingrix (Zoster recombinant ) vaccine (Standing Order) (1 of 2) 11/14/1985 RSV Vaccination (60+ yrs) (Abrysvo/Arexvy) (1 - 1-dose 60+ series) 1995 Pneumococcal Vaccine: 65+ yr s (Standing Order) (1 of 1 - PCV) 11/14/2000 COVID-19 Vaccine (2022-2 4 season) 2023 Influenza Vaccine Seasonal (Standing Order) (#1) 2023 HPV Vaccine (Standing Order) Aged Out No longer eligible based on patient's age to complete this topic Hepatitis B Vaccine (Standin g Order) Aged Out No longer eligible b ased on patient's age to complete this topic Medical Devices Implanted Type Area Wrapper Operator Device Identifier Shelf Expiration Date Model / Serial / Lot Clip Hemostasis Instinct Plus Disp [id number] - [id number] Implanted:Qty: 2 on 03/23/2022 by Anjana Weeks DO at [facility] N/A: Davi CHIRINOS 01/16/2025 [id number] / N/A / [id number] Advance Directives For more information, please contact: [phone] * Full Code (Latest Code Status on File) Date Activated Date Inactivated Comments 03/22/2022 2:44 PM 03/25/2022 9:43 PM
--- OUTSIDE RECORDS SUMMARY | 2023-09-20 21:13 | XMS_ITS | Encounter Summary ---
Author Name Unknown Organization [facility] Address [address] [place] [address] Care Team Providers Care Shovel Loader Operator Name Role Phone Elsewhere, Pcp Primary Care Provider Unavailabl e Encounter Details Date Type Department Care Team (Late st Contact Info) Description 08/12/2023 Ancillary Procedure Department of Ophthalmology Social History [...] week 12/31/2021 How often do you attend [facility] or anabaptist services? Patient declined 12/31/2021 Do you belong to any clubs o r organizations such as moravian groups, unions, fraternal [...] and heating? Not hard at all 12/31/2021 [facility] of Occupat ional Health - Occupational Stress [...] or slept in a fpc (including now)? No 12/31/2021 Nutrition Answer Date [...] Appointment Department of Laboratory Medicine and Pathology, [facility] in [place], [place] [address] [place] [phone] Dung Barry M.B., Ch.B. [address] [place] [phone] 11/06/2023 1:00 PM CDT Office Visit Division of Hematology in [place], [place] [address] [place] [phone] Summer Mars, WANDA, C.N.P., M.S. [address] [place] [phone] documented as of this encounter Procedures Procedure Name Priority Date/Time Associated Diagnosis Comments OPHTHALMOLOGY IMAGE EXAM Routine 08/12/2023 12:00 AM CDT documented in this encounter Results * Eyes Spectralis OCT-Ophthalmology Image Exam (08/12/2023 12:00 AM CDT) Narrative IIMS - 08/12/2023 4:16 PM CDT This order has been created and auto-finalized to support the import of images acquired without order. The clinical documentation to support these images can be found on the encounter that produced images. Provider Not In System IMG NON RAD IMAGI NG PROCEDURES IIMS NA documented in this encounter Visit Diagnoses Not on filedocumented in this encounter Care Teams Shovel Loader Operator Relationship Specialty Start Date End Date Elsewhere, Pcp PCP - General Family Medicine 01/10/21 documented as of this encounter
[2023-09-20] MEDS: BENZONATATE 100 MG CAPSULE PO (21:18)
[2023-09-20 21:28] LABS: Lactate* 0.8 mmol/L (0.5-1.9)
[2023-09-20 21:31] LABS: Basophils Percent Auto 0.1 % (0.0-3.0); Hematocrit 38.4 % (37.0-53.0); Hemoglobin* 11.9 gm/dL (13.5-17.5); Immature Granulocytes Pct Auto 0.1 %; Lymphocytes Percent Auto 67.2 % (20-44); Mean Corpuscular HGB Conc 31 gm/dL (32-36); Mean Corpuscular Hemoglobin 27 pg (26-34); Mean Corpuscular Volume 88 fL (80-100); Monocytes Percent Auto 3.8 % (0.0-11.0); Neutrophils Percent Auto 27.8 % (42.0-72.0); Platelet Count* 196 K/uL (140-440); Red Blood Count 4.37 m/uL (4.30-5.90)
[2023-09-20 21:34] LABS: PCR FLU A Negative PCR FLU A (Negative); PCR FLU B Negative PCR FLU B (Negative); PCR RSV Negative PCR RSV (Negative); SARS PCR* Negative SARS-CoV-2 (Negative)
[2023-09-20 21:43] LABS: Chloride* 111 mmol/L (96-114); Sodium* 139 mmol/L (135-149)
[2023-09-20 21:44] LABS: Potassium* 4.2 mmol/L (3.6-5.1)
[2023-09-20 21:46] LABS: Est. Creatinine Clearance* 50.35; Estimated Glomerular Filt Rate 73 ml/min
[2023-09-20 21:47] LABS: Anion Gap 6 mEq/L (7-15); Blood Urea Nitrogen* 30 mg/dL (7-30); Calcium* 9.1 mg/dL (8.4-10.6); Carbon Dioxide* 22 mmol/L (20-32); Glucose* 151 mg/dL (60-115)
[2023-09-20 21:50] LABS: C Reactive Protein* 2.1 mg/dL (0.5-1.0)
[2023-09-20 21:54] LABS: Slide Review Reflex Yes
[2023-09-20 21:56] LABS: Slide Review Acceptable Review (Acceptable)
[2023-09-20] MEDS: 0.9 % SODIUM CHLORIDE 500 ML 500 ML IV (22:00)
[2023-09-20 22:02] LABS: Troponin I* 0.27 ng/mL (0.01-0.04)
[2023-09-20 22:04] LABS: Procalcitonin* 0.09 ng/mL (<0.50)
[2023-09-20 22:09] VITALS: BP 174/75
[2023-09-20 22:31] VITALS: BP 167/75; PULSE 90; RESP 20; O2SAT 94
[2023-09-20] MEDS: cefTRIAXone 1 GM in 0.9 % SODIUM CHLORIDE Mini-bag 100 ML IVPB (22:52)
[2023-09-20 23:05] VITALS: O2SAT 92
[2023-09-20] MEDS: AZITHROMYCIN 500 MG in 0.9 % SODIUM CHLORIDE 250 ml 250 ML 255 MG IVPB (23:27)
[2023-09-20 23:28] VITALS: BP 143/76; PULSE 95; RESP 20; O2SAT 95
[2023-09-20 23:47] LABS: NT Pro B Type NatriureticPept* 1140 pg/mL; Troponin I* 0.18 ng/mL (0.01-0.04)
[2023-09-21] VITALS (18 sets, daily range): BP systolic 121–182; BP diastolic 57–74; PULSE 59–104; RESP 18–20; TEMP 36.5–37.4; O2SAT 92–94; BMI 27.0
[2023-09-21] MEDS: ACETAMINOPHEN 500 MG TABLET 1000 MG PO (00:12)
--- NOTE | 2023-09-21 01:44 | PM.IMHP1 ---
Hospitalist- H&P: HPI History of Present Illness Date Seen: 09/21/23 Chief complaint: Fever, dropping O2 Narrative: Kristofer Garcia is a 87 year old male who presented to the ED for evaluation regarding fevers. He got sick with a viral syndrome 6 days prior to admission. He complained of sore throat, headache, and fatigue for a few days that went away on its own. A couple days later, he noted the development of a fever and productive cough. Multiple family members have been sick with similar symptoms. He has been coughing up a yellow sputum and feeling a bit weaker than normal. He denied any chest pressure or pain except with coughing. Denied nausea, vomiting, abdominal pain, or diarrhea. ED workup showed mildly elevated troponin that was trending down. EKG showed no definite ischemic changes. CXR showed bilateral infiltrates concerning for pneumonia. Viral testing negative. CBC showed leukocytosis albeit improved compared to prior values. Chem panel largely unremarkable. Review of Systems Status of ROS: Reports: 10 or more systems reviewed and unremarkable except as noted in History and below [facility] Medical History (Updated 09/21/23 @ 02:11 by Daniel Moran DO) CAD (coronary artery disease) ?I25.10 - Atherosclerotic heart disease of crow coronary artery without angina pectoris (ICD-10) Atrial fibrillation ?I48.91 - Unspecified atrial fibrillation (ICD-10) Diverticulosis ?K57.90 - Diverticulosis of intestine, part unspecified, without perforation or abscess without bleeding (ICD-10) Blood clot of artery under arm ?I74.2 - Embolism and thrombosis of arteries of the upper extremities (ICD-10) Diabetic retinopathy ?E11.319 - Type 2 diabetes mellitus with unspecified diabetic retinopathy without macular edema (ICD-10) Interstitial lung disease ?J84.9 - Interstitial pulmonary disease, unspecified (ICD-10) ROSA ISELA (obstructive sleep apnea) ?G47.33 - Obstructive sleep apnea (adult) (pediatric) (ICD-10) Hyperlipidemia ?E78.5 - Hyperlipidemia, unspecified (ICD-10) CLL (chronic lymphocytic leukemia) ?C91.10 - Chronic lymphocytic leukemia of B-cell type not having achieved remission (ICD-10) Type 2 diabetes mellitus ?E11.9 - Type 2 diabetes mellitus without complications (ICD-10) GERD (gastroesophageal reflux disease) ?K21.9 - Gastro-esophageal reflux disease without esophagitis (ICD-10) Essential hypertension ?I10 - Essential (primary) hypertension (ICD-10) 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 - Dissection of other specified artery (ICD-10) Ileitis ?K52.9 - Noninfective gastroenteritis and colitis, unspecified (ICD-10) Surgical History Patella fracture ?S82.009A - Unspecified fracture of unspecified patella, initial encounter for closed fracture (ICD-10) History of atherectomy ?Z98.890 - Other specified postprocedural states (ICD-10) H/O colectomy ?Z90.49 - Acquired absence of other specified parts of digestive tract (ICD-10) History of laparoscopic cholecystectomy ?Z90.49 - Acquired absence of other specified parts of digestive tract (ICD-10) Social History Highest level of school completed/degree received: high school graduate Smoking Status: Former smoker What tobacco products do you use: cigarettes Smoking quit date/years: >15 years ago Do you use any of these nicotine containing products: None Second hand tobacco smoke exposure: No How often do you have a drink containing alcohol: never How often do you have six or more drinks on one occasion: Never AUDIT-C Alcohol total score: 0 Non-prescribed substance use: denies use Caffeine: Yes (Green Tea) service: Yes Meds Home Medications and Allergies Home Medications Medication Instructions Recorded Confirmed Type atorvastatin 20 mg tablet 20 mg PO DAILY 03/26/22 08/27/22 History carvedilol 25 mg tablet 25 mg PO BID 03/26/22 08/27/22 History omeprazole 20 mg capsule,delayed 20 mg PO BID 03/26/22 08/27/22 History release spironolactone 25 mg tablet 25 mg PO DAILY 03/26/22 08/27/22 History valsartan 320 mg tablet 320 mg PO DAILY 03/26/22 08/27/22 History apixaban 2.5 mg tablet (Eliquis) 2.5 mg PO BID 08/27/22 08/27/22 History ascorbic acid (vitamin C) 500 mg 500 mg PO DAILY 08/27/22 08/27/22 History tablet aspirin 81 mg chewable tablet 1 tab PO MOTH 08/27/22 08/27/22 History empagliflozin 25 mg tablet 25 mg PO DAILY 08/27/22 08/27/22 History (Jardiance) salmon oil 1,000 mg-omega-3 fatty 1 cap PO DAILY 08/27/22 08/27/22 History acids 210 mg capsule vitamin E mixed 400 unit capsule 400 unit PO DAILY 08/27/22 08/27/22 History Allergies Allergy/AdvReac Type Severity Reaction Status Date / Time metformin AdvReac Intermediate Diarrhea Verified 08/27/22 16:11 Exam Const: Vital Signs, click to edit/add: Vital Signs - 24 hr 09/20/23 20:41 09/20/23 22:09 09/20/23 22:31 Temperature 99.3 F Pulse Rate 90 Pulse Rate [Pulse Oximeter] 93 Respiratory Rate 22 20 Blood Pressure 174/75 H 167/75 H Blood Pressure [Ri ght Upper Arm] 193/69 H Pulse Oximetry 94 94 Oxygen Delivery Me thod Room Air 09/20/23 23:05 09/20/23 23:28 09/21/23 00:05 Temperature Pulse Rate 95 104 H Pulse Rate [Pulse Oximeter] Respiratory Rate 20 20 Blood Pressure 143/76 H 129/67 Blood Pressure [Ri ght Upper Arm] Pulse Oximetry 92 95 92 Oxygen Delivery Me thod 09/21/23 00:32 09/21/23 00:57 09/21/23 01:08 Temperature 99.3 F 99.3 F Pulse Rate 95 Pulse Rate [Pulse Oximeter] 94 94 Respiratory Rate 20 20 20 Blood Pressure 121/68 Blood Pressure [Ri ght Upper Arm] 145/74 H 145/74 H Pulse Oximetry 92 92 Oxygen Delivery Me thod Room Air Common normals: no apparent distress and oriented x3 HENMT: Common normals: normocephalic and head/scalp atraumatic Head and scalp: normocephalic and atraumatic Eye: Common normals: PERRL, EOMs intact bilaterally and conjunctivae normal Conjunctiva: conjunctiva(e) normal Pupil: PERRL Neck & C-Spine: Common normals: no lymphadenopathy and supple Lymph: Lymphatic: no lymphadenopathy noted Chest: Common normals: inspection of chest normal and palpation of chest normal Resp: Common normals: normal respiratory effort and no use of accessory muscles Auscultation: rales and rhonchi Cardio: Common normals: regular rate, regular rhythm, no gallops, no clicks, no murmurs and no rub Rate: regular rate Rhythm: regular rhythm GI: Common normals: Normal to inspection, nondistended, normoactive bowel sounds present Extremity: Common normals: normal to inspection Neuro: Common normals: oriented x3 and moves all extremities Psych: Common normals: mental status grossly normal Skin: Common normals: no rashes or lesions noted General skin exam: no rashes or lesions noted Hospitalist - H&P: Result Labs Labs: Short CBC 09/20/23 Range/Units 21:10 WBC 18.00 H (4.50-11.00) K/uL Hgb 11.9 L (13.5-17.5) gm/dL Hct 38.4 (37.0-53.0) % Plt Count 196 (140-440) K/uL BMP 09/20/23 21:10 Sodium 139 Potassium 4.2 Chloride 111 Carbon Dioxide 22 BUN 30 Creatinine 1.0 Glucose 151 H Calcium 9.1 Cardiac Enzymes 09/20/23 09/20/23 Range/Units 21:10 23:10 Troponin I 0.27 H* 0.18 H* (0.01-0.04) ng/mL Assessment and Plan Assessment and plan (1) Pneumonia: Status: Acute (2) Elevated troponin: Status: Acute (3) COVID: Status: Acute (4) Physical deconditioning: Problem comment: Encourage ambulation with plan to return home. Status: Acute (5) Interstitial lung disease: Status: Acute (6) ROSA ISELA (obstructive sleep apnea): Status: Acute (7) GERD (gastroesophageal reflux disease): Status: Acute (8) Essential hypertension: Status: Acute (9) Colitis: Problem comment: Colitis and ileitis on CT Status: Acute (10) Atrial fibrillation: Problem comment: - rate controlled. Paroxysmal. Appears to be in sinus currently. - on Eliquis: given h/o GI bleed in March 2022, holding Eliquis and ASA, on Lovenox. + SCDs. Continue Coreg, spironolactone, valsartan. echo 2019 Final Impressions: 1. Normal left ventricular size, mildly increased wall thickness, normal global systolic function, calculated EF of 64 %. 2. Mildly enlarged left atrium. 3. The aortic valve is calcified, trileaflet and sclerotic, mild stenosis(mean gradient 18 mm Hg) and trivial regurgitation. 4. The mitral valve is sclerotic, trace mitral regurgitation. 5. Mildly increased estimated pulmonary pressures by tricuspid regurgitation velocity and right atrial pressure (34 mmHg plus RAP). Status: Acute (11) CAD (coronary artery disease): Problem comment: - h/o JAMES to mid LAD prox circumflex, OM1 01/05 Status: Acute Plan 1. Given rocephin and azithromycin in ED, plan to continue the same q24 hours 2. Supplemental oxygen and monitor oxygen with Continuous oximetry to keep saturations greater than 90% 3. Echo in the AM to assess for RWMA, unlikely representing ACS, most likely demand ischemia in setting of above 4. Keep on gambling monitor 5. Repeat labs in AM Patient seen on telemedicine visit with nursing staff assisting with exam when able. Start time, 0140, Stop time 0200.
--- NOTE | 2023-09-21 06:41 | PC.NURSE ---
Pt alert and oriented x3.?Afebrile.?Room air. Lung sounds have coarse crackles and inspiratory and expiratory wheezes. Pt's cough is productive with white/cream colored sputum. Pt denies pain, chest pain, SOB, and N/V. Pt is up SBA, voiding and tolerating a regular diet. Pt slept intermittently throughout night. Night uneventful. ?
[2023-09-21 07:13] LABS: Basophils Percent Auto 0.1 % (0.0-3.0); Eosinophils Percent Auto 0.9 % (0.0-7.0); Hematocrit 34.6 % (37.0-53.0); Hemoglobin* 10.8 gm/dL (13.5-17.5); Immature Granulocytes Pct Auto 0.1 %; Lymphocytes Percent Auto 75.4 % (20-44); Mean Corpuscular HGB Conc 31 gm/dL (32-36); Mean Corpuscular Hemoglobin 27 pg (26-34); Mean Corpuscular Volume 88 fL (80-100); Monocytes Percent Auto 3.6 % (0.0-11.0); Neutrophils Percent Auto 19.9 % (42.0-72.0); Platelet Count* 173 K/uL (140-440); RDW Coefficient of Variation % 17.9 % (11.5-15.5); Red Blood Count 3.94 m/uL (4.30-5.90); White Blood Count* 24.25 K/uL (4.50-11.00)
[2023-09-21 07:14] LABS: Chloride* 110 mmol/L (96-114); Slide Review Reflex No; Sodium* 139 mmol/L (135-149)
[2023-09-21 07:15] LABS: Potassium* 3.7 mmol/L (3.6-5.1)
[2023-09-21 07:17] LABS: Anion Gap 4 mEq/L (7-15); Carbon Dioxide* 25 mmol/L (20-32); Est. Creatinine Clearance* 50.35; Estimated Glomerular Filt Rate 73 ml/min
[2023-09-21 07:18] LABS: Blood Urea Nitrogen* 27 mg/dL (7-30); Calcium* 8.7 mg/dL (8.4-10.6); Glucose* 116 mg/dL (60-115)
[2023-09-21] MEDS: SODIUM CHLORIDE 0.9 % (FLUSH) 10 ML SYRINGE 5 ML IVF ×3 (09:09→23:35)
[2023-09-21] MEDS: BENZONATATE 100 MG CAPSULE PO ×3 (09:20→20:39)
--- NOTE | 2023-09-21 10:01 | P.IMPN_ITS ---
Progress Note: A&P Assessment and plan (1) Pneumonia: Problem details: - bilateral, L>R - continue Azithromycin and Ceftriaxone (09/20/23) - blood cultures currently NGTD Status: Acute (2) Elevated troponin: Problem details: - likely demand ischemia from acute illness, peaked at 0.27 - no acute abnormalities on EKG, no chest pain - TTE reveals aortic stenosis per below Status: Acute (3) Aortic stenosis, severe: Problem details: - noted on 09/21/23 TTE (was mild on 2019 TTE) - outpatient f/u with PCP and Cardiology Status: Acute (4) Essential hypertension: Problem details: - continue home medications Status: Acute (5) Atrial fibrillation: Problem details: - rate controlled, paroxysmal - continue home dose of Eliquis, Carvedilol - repeat TTE 09/21/23 with formal cardiology report below: Final Impressions: 1. Normal left ventricular size, mildly increased wall thickness, mildly reduced global systolic function, calculated EF of 50 %. 2. Right ventricular cavity size is normal, global systolic RV function is normal. 3. Mildly enlarged left atrium. 4. The aortic valve is calcified, moderate to severe stenosis and moderate regurgitation. The aortic valve peak velocity is 3.4 m/s, the peak gradient is 45 mmHg, and the mean gradient is 25 mmHg. The aortic valve area is 1.19 cm?? with a dimensionless index of 0.24. The stroke volume index is 51.5 ml/m??. 5. The mitral valve is sclerotic, trace mitral regurgitation. 6. Tricuspid valve is normal. 7. Moderately increased estimated pulmonary pressures by tricuspid regurgitation velocity and right atrial pressure (56 mmHg plus RAP). 8. No pericardial effusion. Status: Acute (6) CAD (coronary artery disease): Problem details: - h/o JAMES to mid LAD prox circumflex, OM1 01/05 Status: Acute (7) CLL (chronic lymphocytic leukemia): Problem details: - quiescent Status: Acute (8) Interstitial lung disease: Problem details: - noted on previous imaging, does not regularly see Pulmonology Status: Acute Plan - per above - continue Eliquis for ppx - if remains stable tomorrow, d/c home on oral abx with close PCP f/u - daughter updated at bedside, questions answered Subjective Date Seen: 09/21/23 Interval history: Kristofer was admitted overnight for mild dyspnea, fever, and cough. Initial workup revealed possible early pneumonia (Rocephin and Azithromycin initiated), also noted to have elevated troponin with peak at 0.27. This morning, troponin has decreased to 0.18 and Kristofer denies chest pain or dyspnea, not requiring supplemental oxygen. Blood cultures remain negative, VS stable. He has persistent leukocytosis, expected given history of CLL. No concerns for hospitalist team. Exam Narrative: Exam Narrative: GEN: Alert and oriented, sitting comfortably in bed, no dyspnea at rest HEENT: EOMIs bilaterally, no scleral icterus CV: Rate controlled atrial fibrillation, blowing systolic murmur across precordium and in L midaxillary line R: Rhonchi in bilateral apices, rales L base Ext: wwp, no concerning edema Skin: No concerning skin lesions or rashes on exposed skin Neuro: No focal deficits Psych: Appropriate Const: Vital Signs, click to edit/add: Vital Signs - 24 hr 09/20/23 20:41 09/20/23 22:09 09/20/23 22:31 Temperature 99.3 F Pulse Rate 90 Pulse Rate [Pulse Oximeter] 93 Respiratory Rate 22 20 Blood Pressure 174/75 H 167/75 H Blood Pressure [Ri ght Arm] Blood Pressure [Ri ght Upper Arm] 193/69 H Pulse Oximetry 94 94 Oxygen Delivery Me thod Room Air 09/20/23 23:05 09/20/23 23:28 09/21/23 00:05 Temperature Pulse Rate 95 104 H Pulse Rate [Pulse Oximeter] Respiratory Rate 20 20 Blood Pressure 143/76 H 129/67 Blood Pressure [Ri ght Arm] Blood Pressure [Ri ght Upper Arm] Pulse Oximetry 92 95 92 Oxygen Delivery Me thod 09/21/23 00:32 09/21/23 00:57 09/21/23 01:08 Temperature 99.3 F 99.3 F Pulse Rate 95 Pulse Rate [Pulse Oximeter] 94 94 Respiratory Rate 20 20 20 Blood Pressure 121/68 Blood Pressure [Ri ght Arm] Blood Pressure [Ri ght Upper Arm] 145/74 H 145/74 H Pulse Oximetry 92 92 Oxygen Delivery Me thod Room Air 09/21/23 01:10 09/21/23 01:10 09/21/23 02:38 Temperature 97.7 F 97.9 F Pulse Rate Pulse Rate [Pulse Oximeter] 83 77 Respiratory Rate 18 18 Blood Pressure Blood Pressure [Ri ght Arm] 150/65 H 142/57 H Blood Pressure [Ri ght Upper Arm] Pulse Oximetry 93 93 93 Oxygen Delivery Me thod Room Air Room Air Room Air 09/21/23 03:06 09/21/23 04:27 09/21/23 07:00 Temperature Pulse Rate 78 Pulse Rate [Pulse Oximeter] 70 Respiratory Rate 18 Blood Pressure Blood Pressure [Ri ght Arm] 180/65 H Blood Pressure [Ri ght Upper Arm] Pulse Oximetry 93 93 Oxygen Delivery Me thod Room Air Labs Labs: Laboratory Results - last 24 hr 09/20/23 09/20/23 09/20/23 08:50 21:10 23:10 WBC 18.00 H RBC 4.37 Hgb 11.9 L Hct 38.4 MCV 88 MCH 27 MCHC 31 L RDW Coeff of Ravi 18.0 H Plt Count 196 Neut % (Auto) 27.8 L Lymph % (Auto) 67.2 H Edmunds % (Auto) 3.8 Eos % (Auto) 1.0 Baso % (Auto) 0.1 Neut # (Auto) 5.00 Lymph # (Auto) 12.10 H Edmunds # (Auto) 0.70 Eos # (Auto) 0.20 Baso # (Auto) 0.00 Abs Immat Gran (auto) 0.00 Imm/Tot Granulo (auto) 0.1 Diff Slide Review Acceptable Review Sodium 139 Potassium 4.2 Chloride 111 Carbon Dioxide 22 Anion Gap 6 L BUN 30 Creatinine 1.0 Estimated Creat Clear 50.35 Estimated GFR 73 Glucose 151 H Lactate 0.8 Calcium 9.1 Troponin I 0.27 H* 0.18 H* C-Reactive Protein 2.1 H NT-Pro-B Natriuret Pep 1140 Procalcitonin 0.09 SARS-CoV-2 (PCR) Negative SARS-CoV-2 Influenza Type A (PCR) Negative PCR FLU A Influenza Type B (PCR) Negative PCR FLU B RSV (PCR) Negative PCR RSV 09/21/23 06:15 WBC 24.25 H RBC 3.94 L Hgb 10.8 L Hct 34.6 L MCV 88 MCH 27 MCHC 31 L RDW Coeff of Ravi 17.9 H Plt Count 173 Neut % (Auto) 19.9 L Lymph % (Auto) 75.4 H Edmunds % (Auto) 3.6 Eos % (Auto) 0.9 Baso % (Auto) 0.1 Neut # (Auto) 4.80 Lymph # (Auto) 18.30 H Edmunds # (Auto) 0.90 Eos # (Auto) 0.20 Baso # (Auto) 0.00 Abs Immat Gran (auto) 0.00 Imm/Tot Granulo (auto) 0.1 Diff Slide Review Sodium 139 Potassium 3.7 Chloride 110 Carbon Dioxide 25 Anion Gap 4 L BUN 27 Creatinine 1.0 Estimated Creat Clear 50.35 Estimated GFR 73 Glucose 116 H Lactate Calcium 8.7 Troponin I C-Reactive Protein NT-Pro-B Natriuret Pep Procalcitonin SARS-CoV-2 (PCR) Influenza Type A (PCR) Influenza Type B (PCR) RSV (PCR)
[2023-09-21] MEDS: carvediloL 6.25 MG TABLET PO (14:17)
[2023-09-21 18:32] LABS: Legionella pneumo Ag Urine L. pneumo Negative (Negative); S pneumo Ag Urine S. pneumo Negative (Negative)
--- NOTE | 2023-09-21 19:03 | PC.NURSE ---
End of Shift: The patient is pleasant and alert and orientated. Reports a mild moist cough, spitting up frothy thick yellow sputum. Lungs have expiatory wheezing and inspiratory rhonchi. SBA to BR. Uses urinal PRN. Coccyx is noted to be reddened. Saccrum Mepilex was applied. Tolerating a regular diet with no issues. HTN but stable on RA. Call light within reach. Cintia BARRERA BSN
[2023-09-21] MEDS: carvediloL 25 MG TABLET PO (20:37)
[2023-09-21] MEDS: APIXABAN 5 MG TABLET 2.5 MG PO (20:38)
[2023-09-21] MEDS: OMEPRAZOLE 20 MG CAPSULE DR 40 MG PO (20:39)
[2023-09-21] MEDS: VALSARTAN 80 MG TABLET 320 MG PO (20:41)
[2023-09-21] MEDS: cefTRIAXone 2 GM in 0.9 % SODIUM CHLORIDE Mini-bag 100 ML IVPB (20:44)
[2023-09-21] MEDS: AZITHROMYCIN 500 MG in 0.9 % SODIUM CHLORIDE 250 ml 250 ML 255 MG IVPB (22:22)
[2023-09-22 03:40] VITALS: BP 168/71; PULSE 72; RESP 18; TEMP 36.5; O2SAT 92
[2023-09-22 03:42] VITALS: O2SAT 92
--- NOTE | 2023-09-22 06:32 | PC.NURSE ---
End of shift note [id number]: Pt noted to be alert & oriented x 4 and able to make needs known. Pt has been denying pain when asked. B/P noted to be elevated at HS at 182/74 though improved to 157/68 after taking home dose of Coreg at HS. Pt has been refusing TEDs despite education and refuses SCDs. Mepilex to coccyx noted to be C/D/I. IV to R wrist patent and SL. Security Representative provided [employer] education with pt providing return demonstration. Pt slept well overnight and used urinal for voiding. IV to R wrist patent and SL.
[2023-09-22 07:00] VITALS: PULSE 77
[2023-09-22 07:04] LABS: Basophils Percent Auto 0.1 % (0.0-3.0); Eosinophils Percent Auto 0.7 % (0.0-7.0); Hematocrit 35.5 % (37.0-53.0); Immature Granulocytes Pct Auto 0.1 %; Lymphocytes Percent Auto 77.4 % (20-44); Mean Corpuscular HGB Conc 31 gm/dL (32-36); Mean Corpuscular Hemoglobin 27 pg (26-34); Mean Corpuscular Volume 87 fL (80-100); Monocytes Percent Auto 2.9 % (0.0-11.0); Neutrophils Percent Auto 18.8 % (42.0-72.0); Platelet Count* 183 K/uL (140-440); RDW Coefficient of Variation % 17.7 % (11.5-15.5); Red Blood Count 4.06 m/uL (4.30-5.90)
[2023-09-22 07:23] LABS: Albumin* 3.3 g/dL (3.3-5.0)
[2023-09-22 07:26] LABS: Aspartate Amino Transferase* 21 U/L (12-35); Bilirubin Total* 0.4 mg/dL (0.1-1.5); Carbon Dioxide* 25 mmol/L (20-32); Creatinine* 0.9 mg/dL (0.5-1.5); Est. Creatinine Clearance* 50.35; Estimated Glomerular Filt Rate 83 ml/min; Total Protein* 5.8 g/dL (6.0-8.3)
[2023-09-22 07:27] LABS: Alanine Aminotransferase* 12 U/L (4-50); Alkaline Phosphatase* 103 U/L (40-150); Blood Urea Nitrogen* 22 mg/dL (7-30); Calcium* 8.7 mg/dL (8.4-10.6); Glucose* 123 mg/dL (60-115)
[2023-09-22 07:38] LABS: Slide Review Reflex Yes; White Blood Count* 31.88 K/uL (4.50-11.00)
[2023-09-22 07:39] LABS: Slide Review Acceptable Review (Acceptable)
[2023-09-22 07:45] LABS: Chloride* 108 mmol/L (96-114)
[2023-09-22 07:46] LABS: Anion Gap 4 mEq/L (7-15); Potassium* 3.8 mmol/L (3.6-5.1); Sodium* 137 mmol/L (135-149)
--- NOTE | 2023-09-22 08:00 | XR_ITS ---
Patient: FRANK BOWEN Facility:?[facility] Patient ID:?[id number] Site Patient ID:?[id number]. Site :?[id number] Study:?XRay-Chest 2 VIEW-09/22/2023 9:31:02 AM Ordering Physician:LIN PARK Final Report: INDICATION: COUGH, FOLLOW UP PNEUMONIA TECHNIQUE: Chest 2 views. COMPARISON: Chest x-ray September 20, 2023. FINDINGS: Cardiovascular and mediastinum: Heart size and vasculature are normal in caliber and appearance. Lungs and pleural spaces: Diffuse increased interstitial lung markings with strandy opacities in the lateral costophrenic angles bilaterally. No definite pleural effusion or pneumothorax. Bones and soft tissues: A. IMPRESSION: Diffuse increased interstitial lung markings with strandy opacities in the lateral costophrenic angles bilaterally, not significantly changed from prior. Findings may represent pulmonary edema or a diffuse infectious/inflammatory process. Pulmonary fibrosis is an additional consideration. Dictated by Sukhdeep Vieyra MD @ 09/22/2023 9:37:49 AM Signed by:?Sukhdeep Vieyra MD @09/22/2023 9:37:49 AM (Electronic Signature)
[2023-09-22 08:15] VITALS: BP 170/70; PULSE 79; RESP 18; TEMP 36.9; O2SAT 93
[2023-09-22] MEDS: APIXABAN 5 MG TABLET 2.5 MG PO (08:22)
[2023-09-22] MEDS: ASCORBIC ACID 500 MG TABLET PO (08:23)
[2023-09-22] MEDS: carvediloL 25 MG TABLET PO (08:23)
[2023-09-22] MEDS: BENZONATATE 100 MG CAPSULE PO (08:23)
[2023-09-22] MEDS: EMPAGLIFLOZIN 10 MG TABLET 25 MG PO (08:23)
[2023-09-22] MEDS: ASPIRIN 81 MG TAB.CHEW PO (08:23)
[2023-09-22] MEDS: ATORVASTATIN 10 MG TABLET 20 MG PO (08:23)
[2023-09-22] MEDS: SPIRONOLACTONE 25 MG TABLET PO (08:24)
[2023-09-22] MEDS: SODIUM CHLORIDE 0.9 % (FLUSH) 10 ML SYRINGE 5 ML IVF (08:24)
[2023-09-22] MEDS: CETIRIZINE HCL 10 MG TABLET PO (08:24)
--- NOTE | 2023-09-22 10:03 | PM.DS1 ---
DS: Providers Provider Date Seen: 09/22/23 Date of admission: 09/21/23 00:58 Primary care physician: Luiz Bullock MD Admitting Clinician: Daniel Moran DO Attending Physician on discharge: Norma Conley MD Date of Discharge: 09/22/23 DS: Diagnosis Discharge Diagnosis (1) Pneumonia: Status: Acute Problem details: - bilateral, L>R - treated with Azithromycin and Ceftriaxone (09/20/23), will discharge home on Doxycycline - blood cultures NGTD (2) Elevated troponin: Status: Acute Problem details: - likely demand ischemia from acute illness, peaked at 0.27 - no acute abnormalities on EKG, no chest pain - TTE reveals aortic stenosis per below (3) Aortic stenosis, severe: Status: Acute Problem details: - noted on 09/21/23 TTE (was mild on 2019 TTE) - outpatient f/u with PCP and Cardiology at [place] (4) Essential hypertension: Status: Acute (5) Atrial fibrillation: Status: Acute Problem details: - rate controlled, paroxysmal - continue home dose of Eliquis, Carvedilol - repeat TTE 09/21/23 with formal cardiology report below: Final Impressions: 1. Normal left ventricular size, mildly increased wall thickness, mildly reduced global systolic function, calculated EF of 50 %. 2. Right ventricular cavity size is normal, global systolic RV function is normal. 3. Mildly enlarged left atrium. 4. The aortic valve is calcified, moderate to severe stenosis and moderate regurgitation. The aortic valve peak velocity is 3.4 m/s, the peak gradient is 45 mmHg, and the mean gradient is 25 mmHg. The aortic valve area is 1.19 cm?? with a dimensionless index of 0.24. The stroke volume index is 51.5 ml/m??. 5. The mitral valve is sclerotic, trace mitral regurgitation. 6. Tricuspid valve is normal. 7. Moderately increased estimated pulmonary pressures by tricuspid regurgitation velocity and right atrial pressure (56 mmHg plus RAP). 8. No pericardial effusion. (6) CAD (coronary artery disease): Status: Acute Problem details: - h/o JAMES to mid LAD prox circumflex, OM1 01/05 (7) CLL (chronic lymphocytic leukemia): Status: Acute Problem details: - quiescent (8) Interstitial lung disease: Status: Acute Problem details: - appears to be a radiological diagnosis, doesn't see Pulmonology - no concerning hypoxia during stay DS: Summary Hospital Course Hospital Course: Kristofer is an 87-year-old male with a history of CLL, rate controlled paroxysmal atrial fibrillation, coronary artery disease, and aortic stenosis, who presented to the hospital for cough and fevers at home. He was subsequently diagnosed with bilateral pneumonia, treated with IV ceftriaxone and azithromycin. He did not require supplemental oxygen during stay, and remained afebrile. He was also noted to have an elevated troponin, presumably secondary to demand ischemia from acute illness. He did not have chest pain during stay. Echocardiogram revealed moderate to severe aortic stenosis, which had progressed from previous TTE. Kristofer has had no syncope or pre-syncope; has seen [facility] in the past and will f/u with them for this finding. Patient was appropriate for discharge home with oral antibiotics and daughter on 09/21 with close PCP f/u. Status at Discharge Functional status at discharge: independent ambulation Time Spent with Patient Time attestation: Total time spent providing and/or coordinating discharge services: Time spent: Greater than 30 minutes Exam Narrative: Exam Narrative: GEN: Alert and oriented, sitting comfortably in bedside chair and speaking in full sentences HEENT: EOMIs bilaterally, no scleral icterus CV: RRR, blowing systolic murmur heard across precordium with radiation into bilateral carotids R: LCTA bilaterally without concerning wheezing, bibasilar rales L>R Ext: wwp, no concerning edema Skin: No concerning skin lesions or rashes on exposed skin Neuro: Nonfocal Psych: Appropriate Const: Vital Signs, click to edit/add: Vital Signs - 24 hr 09/21/23 10:47 09/21/23 15:00 09/21/23 16:00 Temperature Pulse Rate 73 Pulse Rate [Pulse Oximeter] 68 Respiratory Rate 18 18 Blood Pressure [Le ft Arm] Blood Pressure [Ri ght Arm] Pulse Oximetry 94 92 Oxygen Delivery Me thod Room Air Room Air 09/21/23 16:00 09/21/23 19:00 09/21/23 23:00 Temperature 98.1 F 98.2 F Pulse Rate Pulse Rate [Pulse Oximeter] 77 80 78 Respiratory Rate 18 18 18 Blood Pressure [Le ft Arm] Blood Pressure [Ri ght Arm] 182/70 H 182/74 H Pulse Oximetry 92 93 Oxygen Delivery Me thod Room Air Room Air 09/21/23 23:33 09/21/23 23:34 09/21/23 23:40 Temperature 98.3 F Pulse Rate 78 Pulse Rate [Pulse Oximeter] 78 Respiratory Rate 18 18 Blood Pressure [Le ft Arm] 157/68 H Blood Pressure [Ri ght Arm] Pulse Oximetry 92 92 Oxygen Delivery Dc thod Room Air Room Air 09/22/23 03:40 09/22/23 03:42 09/22/23 08:15 Temperature 97.7 F Pulse Rate Pulse Rate [Pulse Oximeter] 72 Respiratory Rate 18 18 Blood Pressure [Le ft Arm] 168/71 H Blood Pressure [Ri ght Arm] Pulse Oximetry 92 92 93 Oxygen Delivery Dc thod Room Air Room Air 09/22/23 08:15 Temperature 98.4 F Pulse Rate Pulse Rate [Pulse Oximeter] 79 Respiratory Rate 18 Blood Pressure [Le ft Arm] 170/7 H Blood Pressure [Ri ght Arm] Pulse Oximetry 93 Oxygen Delivery Dc thod Room Air DS: Data Data Completed and Pending Labs on day of discharge: Labs from last 24 hours 09/22/23 09/21/23 06:10 17:36 WBC 31.88 H* RBC 4.06 L Hgb 11.0 L Hct 35.5 L MCV 87 MCH 27 MCHC 31 L RDW Coeff of Ravi 17.7 H Plt Count 183 Neut % (Auto) 18.8 L Lymph % (Auto) 77.4 H [place] % (Auto) 2.9 Eos % (Auto) 0.7 Baso % (Auto) 0.1 Neut # (Auto) 6.00 Lymph # (Auto) 24.70 H [place] # (Auto) 0.90 Eos # (Auto) 0.20 Baso # (Auto) 0.00 Abs Immat Gran (auto) 0.00 Imm/Tot Granulo (auto) 0.1 Diff Slide Review Acceptable Review Sodium 137 Potassium 3.8 Chloride 108 Carbon Dioxide 25 Anion Gap 4 L BUN 22 Creatinine 0.9 Estimated Creat Clear 50.35 Estimated GFR 83 Glucose 123 H Calcium 8.7 Total Bilirubin 0.4 AST 21 ALT 12 Alkaline Phosphatase 103 Total Protein 5.8 L Albumin 3.3 Urine L. pneumophilia Ag L. pneumo Negative Urine Strep pneumoniae Ag S. pneumo Negative Preliminary micro results at discharge 09/20/23 21:20 Blood Culture - Preliminary Blood NO GROWTH AFTER 24 HOURS 09/20/23 21:10 Blood Culture - Preliminary Blood NO GROWTH AFTER 24 HOURS Discharge Plan Discharge Disposition: Home, Self-Care Date of Admission: 09/21/23 00:58 Attending Provider on Discharge: Norma Conley Primary Care Provider: Luiz Bullock Condition: Improved Anticipated Discharge Date/Time: 09/22/23 09:56 Discharge Medications: New benzonatate 100 mg Capsule 100 mg PO TID PRN (Reason: cough) Qty: 30 2RF doxycycline hyclate 100 mg capsule 100 mg PO BID 7 Days Qty: 14 0RF Continued cetirizine 10 mg tablet 10 mg PO DAILY carvedilol 25 mg tablet 25 mg PO BID atorvastatin 20 mg tablet 20 mg PO DAILY spironolactone 25 mg tablet 25 mg PO DAILY valsartan 320 mg tablet 320 mg PO HS omeprazole 20 mg capsule,delayed release(DR/EC) 40 mg PO HS Patient Comments: TAKE 1 CAPSULE BY MOUTH TWICE DAILY aspirin 81 mg tablet,chewable 1 tab PO DAILY Rx Instructions: 2 x per week on Thu and for migraine prophylaxis Eliquis 2.5 mg tablet 2.5 mg PO BID Jardiance 25 mg tablet 25 mg PO DAILY ascorbic acid (vitamin C) 500 mg tablet 500 mg PO DAILY vitamin E mixed 400 unit capsule 400 unit PO DAILY Discharge Orders: Discharge Order (Routine); Ordered 09/22/23 Ordered By: Norma Conley Patient Education: Benzonatate (By mouth), Doxycycline (By mouth), Community Acquired Pneumonia (DC) Additional Instructions: Antibiotics and Tessalon Perles at [facility]. See Dr. Bullock as scheduled on Thursday; he will be able to see your echocardiogram results and place the referral to Cardiology at [place]. Activity Level: Activity as Tolerated Activity Detail: Okay to walk on treadmill as long as you're feeling okay, but overall you should take it easy Discharge Diet: Regular Follow Up Appointments: Luiz Bullock MD [Primary Care Provider] - 09/25/23 10:30 am (Patient already has appt scheduled on September 24 at 10:30) Forms: [employer] Info Instructions
--- NOTE | 2023-09-22 11:42 | PC.NURSE ---
The patient discharged home with his daughter this morning. IV was removed. Education was given regarding antibiotics and the use of a probiotic to prevent diarrhea and an upset stomach. Follow up is scheduled for this Thursday. ACTIVITY ORDERED AND TOLERATED HE BEGINS TO FEEL BETTER. Reports no pain throughout the shift. Productive intermittent moist cough with a moderate amount of tenacious cream colored sputum. All discharge paper work was given to the patient. Cintia BARRERA BSN
== END 2023-09-22 11:35 | disposition home or self-care (01) ==
LOC: ED 09-21 00:19 → MEDSURG 09-21 00:59
PROVIDERS: Family Medicine; Admitting Provider Student in an Organized Health Care Education/Training Program; Emergency Provider Emergency Medicine; PCP Family Medicine; Visit Provider Student in an Organized Health Care Education/Training Program
DX: J18.9 Pneumonia, unspecified organism (principal); R79.89 Other specified abnormal findings of blood chemistry; U07.1 COVID-19; R53.81 Other malaise; J84.9 Interstitial pulmonary disease, unspecified; G47.33 Obstructive sleep apnea (adult) (pediatric); K21.9 Gastro-esophageal reflux disease without esophagitis; I10 Essential (primary) hypertension; K52.9 Noninfective gastroenteritis and colitis, unspecified; I48.91 Unspecified atrial fibrillation; I25.10 Atherosclerotic heart disease of native coronary artery without angina pectoris; I35.0 Nonrheumatic aortic (valve) stenosis; C91.10 Chronic lymphocytic leukemia of B-cell type not having achieved remission
CPT/HCPCS: 36415; 71046; 80048; 80053; 83605; 83880; 84145; 84484; 85025; 86140; 87040; 87449; 87631; 87899; 93005; 93306; 94761; 96365; 96366; 96367; 99284; 99285; G0378; A9270; J0456; J0696; J7030; J7050

== ENCOUNTER 2024-03-01 13:00 | Outpatient (RCR) | payer MEDICARE, BC, SELFPAY | END 2024-05-19 17:24 | disposition home or self-care (01) | PROVIDERS: PCP Family Medicine; Visit Provider Family Medicine | DX: R26.81 Unsteadiness on feet (principal); R29.6 Repeated falls; M62.81 Muscle weakness (generalized); Z51.89 Encounter for other specified aftercare | CPT/HCPCS: 97110; 97112; 97162 ==

== ENCOUNTER 2024-05-22 10:18 | Emergency (ER) | payer MEDICARE, BC, SELFPAY ==
[2024-05-22] VITALS (8 sets, daily range): BP systolic 111; BP diastolic 42; PULSE 69–81; RESP 18; TEMP 36.3; O2SAT 94–97; BMI 27.1
--- NOTE | 2024-05-22 11:36 | ED_ITS ---
HPI - Arrhythmia/Palpitations General Date Seen: 05/22/24 Chief Complaint: Arrhythmia/Palpitations Stated Complaint: Irregular heartbeat Time Seen by Provider: 05/22/24 11:18 Source: patient Mode of arrival: ambulatory Limitations: no limitations History of Present Illness HPI narrative: Patient is an 88-year-old male presenting to emergency department for concern of palpitations. The shows a history of severe aortic stenosis, CLL, diabetes, high blood pressure, AFib on Eliquis and carvedilol. States to me days ago he on his his heart started beating irregularly. States is the 1st time he has noticed it since he was diagnosed with AFib 2 years ago. He is not aware if he is always in AFib or not. Is not aware of any sick contacts. denies any lightheadedness or dizziness. States he is able to walk on treadmill for 20 minutes yesterday without any issues. States the palpitations do not always seem to be there but does state he feels them right now. Was checking his heart rate at home and states was ranging from the 40s to 80s. And was jumping around erratically he states. He checked it with a home pulse ox. Denies fevers, chills, chest pain, shortness of breath, weakness, numbness, abdominal pain, diarrhea, constipation, nausea, vomiting. He lives at home with his daughter. No other concerns noted. Sees Cardiology through [facility] and last saw them in October or November he states. Related Data Home Medications ?Medication ?Instructions ?Recorded ?Confirmed atorvastatin 20 mg tablet 20 mg PO DAILY 03/26/22 05/05/24 carvedilol 25 mg tablet 25 mg PO BID 03/26/22 05/05/24 omeprazole 20 mg capsule,delayed 40 mg PO HS 03/26/22 05/05/24 release spironolactone 25 mg tablet 25 mg PO DAILY 03/26/22 05/05/24 valsartan 320 mg tablet 320 mg PO HS 03/26/22 05/05/24 apixaban 2.5 mg tablet (Eliquis) 2.5 mg PO BID 08/27/22 05/05/24 ascorbic acid (vitamin C) 500 mg 500 mg PO DAILY 08/27/22 05/05/24 tablet aspirin 81 mg chewable tablet 1 tab PO DAILY 08/27/22 05/05/24 empagliflozin 25 mg tablet 25 mg PO DAILY 08/27/22 05/05/24 (Jardiance) vitamin E mixed 400 unit capsule 400 unit PO DAILY 08/27/22 05/05/24 cetirizine 10 mg tablet 10 mg PO DAILY 09/21/23 05/05/24 Previous Rx's ?Medication ?Instructions ?Recorded benzonatate 100 mg capsule 100 mg PO TID PRN cough #30 caps 09/22/23 doxycycline hyclate 100 mg capsule 100 mg PO BID 7 days #14 caps 09/22/23 azithromycin 250 mg tablet See Rx Instructions PO .COMPLEX #6 05/05/24 tabs Allergies Allergy/AdvReac Type Severity Reaction Status Date / Time metformin AdvReac Intermediate Diarrhea Verified 05/05/24 17:02 Review of Systems Status of ROS: Reports: 10 or more systems reviewed and unremarkable except as noted in History and below [facility] Medical History Pneumonia ?J18.9 - Pneumonia, unspecified organism (ICD-10) Elevated troponin ?R79.89 - Other specified abnormal findings of blood chemistry (ICD-10) COVID ?U07.1 - COVID-19 (ICD-10) Physical deconditioning ?R53.81 - Other malaise (ICD-10) Colitis ?K52.9 - Noninfective gastroenteritis and colitis, unspecified (ICD-10) CLL (chronic lymphocytic leukemia) ?C91.10 - Chronic lymphocytic leukemia of B-cell type not having achieved remission (ICD-10) Aortic stenosis, severe ?I35.0 - Nonrheumatic aortic (valve) stenosis (ICD-10) CAD (coronary artery disease) ?I25.10 - Atherosclerotic heart disease of [place] coronary artery without angina pectoris (ICD-10) Atrial fibrillation ?I48.91 - Unspecified atrial fibrillation (ICD-10) Diverticulosis ?K57.90 - Diverticulosis of intestine, part unspecified, without perforation or abscess without bleeding (ICD-10) Blood clot of artery under arm ?I74.2 - Embolism and thrombosis of arteries of the upper extremities (ICD- 10) Diabetic retinopathy ?E11.319 - Type 2 diabetes mellitus with unspecified diabetic retinopathy without macular edema (ICD-10) Interstitial lung disease ?J84.9 - Interstitial pulmonary disease, unspecified (ICD-10) ROSA ISELA (obstructive sleep apnea) ?G47.33 - Obstructive sleep apnea (adult) (pediatric) (ICD-10) Hyperlipidemia ?E78.5 - Hyperlipidemia, unspecified (ICD-10) Type 2 diabetes mellitus ?E11.9 - Type 2 diabetes mellitus without complications (ICD-10) GERD (gastroesophageal reflux disease) ?K21.9 - Gastro-esophageal reflux disease without esophagitis (ICD-10) Essential hypertension ?I10 - Essential (primary) hypertension (ICD-10) 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 - Dissection of other specified artery (ICD-10) Ileitis ?K52.9 - Noninfective gastroenteritis and colitis, unspecified (ICD-10) Surgical History Patella fracture ?S82.009A - Unspecified fracture of unspecified patella, initial encounter for closed fracture (ICD-10) History of atherectomy ?Z98.890 - Other specified postprocedural states (ICD-10) H/O colectomy ?Z90.49 - Acquired absence of other specified parts of digestive tract (ICD- 10) History of laparoscopic cholecystectomy ?Z90.49 - Acquired absence of other specified parts of digestive tract (ICD- 10) Social History What is your current living situation?: I presently have a place to live Problems where you live: no known problems Problems where you live details: no know problems In the past 12 months, utilities in danger of being shut off: no In past 12 months, lack of transportation kept you from medical appts, meetings, work, or getting things needed for daily living: no In the past 12 mos, have been you worried that your food would run out before you had money to buy more?: never true In the past 12 mos, the food you bought just didn't last and you didn't have money to buy more?: never true Highest level of school completed/degree received: high school graduate Smoking Status: Former smoker What tobacco products do you use: cigarettes Smoking quit date/years: >15 years ago Do you use any of these nicotine containing products: None Second hand tobacco smoke exposure: Yes How often do you have a drink containing alcohol: never How often do you have six or more drinks on one occasion: Never AUDIT-C Alcohol total score: 0 Non-prescribed substance use: denies use Caffeine: Yes (Tea) How often does anyone, including family, friends and others, physically hurt you : never How often does anyone, including family, friends and others, insult or talk down to you: never How often does anyone, including family, friends and others, threaten you with harm: never How often does anyone, including family, friends and others, scream or curse at you: never service: Yes Exam Narrative: Exam Narrative: Const: Well-nourished, Well-developed, in mild distress Eyes: PERRL, no conjunctival injection, and symmetrical lids HENT: Atraumatic external nose and ears. Moist mucous membranes. Neck: Symmetric, trachea midline, No thyromegaly. CVS: Irregular rhythm, No murmurs or gallops. Peripheral pulses 2+ and equal in all extremities RESP: Unlabored respiratory effort. Clear to auscultation bilaterally. GI: Nontender/Nondistended, No rebound or guarding. MSK:Extremities w/o deformity, Normal Active ROM Skin: Warm, Dry. No rashes or lesions. Neuro: Normal Muscle tone, No focal neurological deficits. Psych: Awake, Alert, & Oriented x3. Appropriate mood and affect. Const: Vital Signs, click to edit/add: Vital Signs - 24 hr 05/22/24 10:46 05/22/24 12:50 05/22/24 13:00 Temperature 97.4 F L Pulse Rate 81 80 Pulse Rate [Pulse Oximeter] 69 Respiratory Rate 18 Blood Pressure [Ri ght Upper Arm] 111/42 L Pulse Oximetry 96 95 95 Oxygen Delivery Me thod Room Air 05/22/24 13:15 05/22/24 13:30 05/22/24 13:45 Temperature Pulse Rate 74 75 75 Pulse Rate [Pulse Oximeter] Respiratory Rate Blood Pressure [Ri ght Upper Arm] Pulse Oximetry 95 95 94 Oxygen Delivery Me thod Course Vital Signs Vital signs: Initial Vital Signs Temperature 97.4 F L 05/22/24 10:46 Temperature Source Temporal Artery Scan 05/22/24 10:46 Pulse Rate 69 05/22/24 10:46 Pulse Rhythm Irregular 05/22/24 10:46 Respiratory Rate 18 05/22/24 10:46 Blood Pressure 111/42 L 05/22/24 10:46 Blood Pressure Mean 65 L 05/22/24 10:46 Blood Pressure Position Sitting 05/22/24 10:46 Pulse Oximetry 96 05/22/24 10:46 Oxygen Delivery Method Room Air 05/22/24 10:46 Vital Signs Temperature 97.4 F L 05/22/24 10:46 Pulse Rate 69 05/22/24 10:46 Respiratory Rate 18 05/22/24 10:46 Blood Pressure 111/42 L 05/22/24 10:46 Pulse Oximetry 96 05/22/24 10:46 Oxygen Delivery Method Room Air 05/22/24 10:46 Temperature 97.4 F L 05/22/24 10:46 Pulse Rate 75 05/22/24 13:45 Respiratory Rate 18 05/22/24 10:46 Blood Pressure 111/42 L 05/22/24 10:46 Pulse Oximetry 94 05/22/24 13:45 Oxygen Delivery Method Room Air 05/22/24 10:46 MDM - Arrhythmia/Palpitations MDM Narrative Medical decision making narrative: Patient is an 88-year-old male presenting for palpitations. He is otherwise doing well. He could be having AFib and/or intermittent AFib. Will for arrhythmias with an EKG her also ordered troponin, BMP, CBC, magnesium, TSH, viral swabs. Symptoms could be related to but not limited to electrolyte abnormality, anemia, thyroid abnormality. I do not believe imaging is necessary at this time as he is not having any pain. Lab work does return with a white count 20.67 but this is normal for him with his CLL. I do not believe further investigation into the white count is warranted. Hemoglobin is near baseline. Rested lab work shows no concerning symptoms. Viral swabs are negative. EKG shows frequent PVCs and a bifascicular block but otherwise no concerning findings. No signs of STEMI. On my review vital signs are stable throughout time in in the emergency department. Oximetry stayed in the mid to high 90s. quality assurance monitor chassis showed no concerning arrhythmias. Patient has otherwise been doing well and feels comfortable for discharge at this time. Him and his daughter agree with following up outpatient with Dr. Bullock and Cardiology. His home pulse ox may not have been reading a PVCs and thus giving an incorrect completely low number. He could also have intermittent AFib. Either way he is safe for follow-up, he is already on the correct medication if it is AFib. Lab Data Labs: Lab Results 05/22/24 05/22/24 Range/Units 12:00 12:20 WBC 20.67 H (4.50-11.00) K/uL RBC 3.79 L (4.30-5.90) m/uL Hgb 10.7 L (13.5-17.5) gm/dL Hct 34.5 L (37.0-53.0) % MCV 91 (80-100) fL MCH 28 (26-34) pg MCHC 31 L (32-36) gm/dL RDW Coeff of Ravi 15.4 (11.5-15.5) % Plt Count 184 (140-440) K/uL Neut % (Auto) 33.1 L (42.0-72.0) % Lymph % (Auto) 62.4 H (20-44) % [place] % (Auto) 3.8 (0.0-11.0) % Eos % (Auto) 0.5 (0.0-7.0) % Baso % (Auto) 0.1 (0.0-3.0) % Neut # (Auto) 6.80 (1.7-7.0) K/uL Lymph # (Auto) 12.90 H (0.90-2.90) K/uL [place] # (Auto) 0.80 (0.00-0.90) K/UL Eos # (Auto) 0.10 (0.00-0.50) K/uL Baso # (Auto) 0.00 (0.00-0.30) K/uL Abs Immat Gran (auto) 0.00 (0.00-0.30) K/uL Imm/Tot Granulo (auto) 0.1 % Sodium 139 (135-149) mmol/L Potassium 4.5 (3.6-5.1) mmol/L Chloride 108 (96-114) mmol/L Carbon Dioxide 25 (20-32) mmol/L Anion Gap 6 L (7-15) mEq/L BUN 29 (7-30) mg/dL Creatinine 1.0 (0.5-1.5) mg/dL Estimated Creat Clear 47.74 Estimated GFR 72 ml/min Glucose 174 H (60-115) mg/dL Calcium 9.0 (8.4-10.6) mg/dL Magnesium 2.3 (1.5-2.6) mg/dL TSH 2.980 (0.270-4.200) uIU/mL SARS-CoV-2 (PCR) Negative SARS-CoV-2 (Negative) Influenza Type A (PCR) Negative PCR FLU A (Negative) Influenza Type B (PCR) Negative PCR FLU B (Negative) RSV (PCR) Negative PCR RSV (Negative) POC Troponin I 0.02 (0.01-0.04) ng/ml ECG Data Attestation: I personally reviewed and interpreted this ECG as follows: Prior ECG tracings: available for review Interpretation: Sinus rhythm with PVC at a rate of 72 beats per minute, normal axis, bifascicular block, normal [place] interval, no ST or T-wave abnormalities. Appears similar previous EKG on file other than the more frequent PVCs. Discharge Plan Discharge Clinical Impression: Palpitation Patient Disposition: Home, Self-Care Condition: Stable Instructions: Heart Palpitations (DC), Premature Ventricular Contractions (ED) Additional Instructions: Follow-up with your primary care provider and/or Cardiology. Your palpitations may be premature ventricular contractions for intermittent AFib. Your primary care provider may want to put him on Zio patch. Prescriptions: No Action azithromycin 250 mg tablet See Rx Instructions PO .COMPLEX Qty: 6 0RF Rx Instructions: For 250 mg dose pack: take 500 mg today (day 1), then 250 mg for 4 days (days 2-5) PO cetirizine 10 mg tablet 10 mg PO DAILY benzonatate 100 mg Capsule 100 mg PO TID PRN (Reason: cough) Qty: 30 2RF doxycycline hyclate 100 mg capsule 100 mg PO BID 7 Days Qty: 14 0RF carvedilol 25 mg tablet 25 mg PO BID atorvastatin 20 mg tablet 20 mg PO DAILY spironolactone 25 mg tablet 25 mg PO DAILY valsartan 320 mg tablet 320 mg PO HS omeprazole 20 mg capsule,delayed release(DR/EC) 40 mg PO HS Patient Comments: TAKE 1 CAPSULE BY MOUTH TWICE DAILY aspirin 81 mg tablet,chewable 1 tab PO DAILY Rx Instructions: 2 x per week on Mon and Thurs for migraine prophylaxis Eliquis 2.5 mg tablet 2.5 mg PO BID Jardiance 25 mg tablet 25 mg PO DAILY ascorbic acid (vitamin C) 500 mg tablet 500 mg PO DAILY vitamin E mixed 400 unit capsule 400 unit PO DAILY Follow Up/Referrals: Luiz Bullock MD [Primary Care Provider] - Stand Alone Forms: [employer] Info Instructions
--- OUTSIDE RECORDS SUMMARY | 2024-05-22 12:16 | XMS_ITS | Clinical Summary ---
Author Organization [facility] Address [place], [place] [address] Care Team Providers Care Accordion Tuner Name Role Phone Luiz Bullock MD Primary Care Provider Allergies Active Allergy Reactions Criticality Noted Date Comments Amlodipine Other - Describe In Comment Field 08/06/2020 Leg swelling on 5mg Metformin Diarrhea 07/03/2020 Medications blood-glucose meter As directed. Dispense glucose meter, test strips and lancets covered by the patient insurance. Test 1 times per day. 1 Device 0 01/30/20 10 Active aspirin chewable 81 mg chewable tablet CHEW AND SWALLOW 1 TABLET EVERY DAY WITH FOOD 03/25/20 22 Active cetirizine (ZYRTEC) 10 mg tabletIndications :Sore throat Take 1 Tablet (10 mg) by mouth once daily. 30 Tablet 09/15/19 24 Active albuterol HFA (PRO-AIR; VENTOLIN; PROVENTIL) 90 mcg/actuation inhalerIndication s:Cough, unspecified type Inhale 1-2 Puffs by mouth every 4 hours if needed for Shortness Of Breath or Wheezing. 1 Each 1 09/25/19 24 Active inhalational spacing deviceIndications :Cough, unspecified type For home use. 1 Each 09/25/19 24 Active magic mouthwash w/nystatin,benadr yl,lidocaine,pred nisolone & maaloxIndications :Tongue sore Swish and spit 15-30 ml every 4 hours as needed. 500 mL 2 10/21/19 24 Active ipratropium (ATROVENT NASAL) 21 mcg (0.03 %) nasal sprayIndications: Rhinitis, unspecified type Inhale 2 Sprays into affected nostril(s) 3 times daily if needed for Rhinitis. Highland dose in each nostril as needed for drainage 30 mL 12 10/21/19 24 Active blood sugar diagnostic (Accu-Chek Guide test strips) stripIndications: Type 2 diabetes mellitus without complication, with long-term current use of insulin (HC) USE TO TEST 1 TIME DAILY 100 Each 3 11/09/19 24 Active omeprazole (PRILOSEC) 20 mg Delayed-Release capsuleIndication s:Chronic GERD Take 1 Capsule (20 mg) by mouth two times daily before meals. 180 Capsule 3 02/26/20 24 Active spironolactone (ALDACTONE) 25 mg tabletIndications :Benign essential HTN TAKE 1 TABLET(25 MG) BY MOUTH EVERY MORNING 90 Tablet 3 03/02/20 24 Active CPAPIndications:O SA (obstructive sleep apnea) RESMED CPAP (E0601) machine for home use at pressure: 7 cmw, Choice of mask (A7030 or A7034) w/full face cushion (A7031) x1/mo, nasal cushion (A7032) x2/mo, or nasal pillows (A7033) x 2/mo; Length of Need: 99 months; Frequency of use: Daily 1 Each 03/10/20 Active fluticasone (50 mcg per actuation) nasal solution (FLONASE)Indicati ons:Allergic rhinitis due to pollen, unspecified seasonality SHAKE LIQUID AND USE 2 SPRAYS IN EACH NOSTRIL EVERY DAY 48 g 2 03/27/20 24 Active Graduated Compression StockingsIndicati ons:Bilateral lower extremity edema For personal use. Length: calf Strength: 16-20 mmHg Circumference in cm: 3 Packet 3 04/13/20 24 Active apixaban (ELIQUIS) 2.5 mg tabletIndications :Paroxysmal atrial fibrillation (HC) Take 1 Tablet (2.5 mg) by mouth two times daily. 180 Tablet 3 05/16/20 24 Active atorvastatin (LIPITOR) 20 mg tabletIndications :Hyperlipidemia, unspecified hyperlipidemia type Take 1 Tablet (20 mg) by mouth once daily with evening meal. 90 Tablet 3 05/16/20 24 Active carvediloL (COREG) 25 mg tabletIndications :HTN (hypertension) Take 1 Tablet (25 mg) by mouth two times daily with meals. 180 Tablet 3 05/16/20 24 Active empagliflozin (Jardiance) 25 mg tabletIndications :Type 2 diabetes mellitus without complication, with long-term current use of insulin (HC) Take 1 Tablet (25 mg) by mouth once daily. 90 Tablet 1 05/16/20 24 Active valsartan (DIOVAN) 320 mg tabletIndications :HTN (hypertension) Take 1 Tablet (320 mg) by mouth once daily. 90 Tablet 3 05/16/20 24 Active apixaban (ELIQUIS) 2.5 mg tabletIndications :Paroxysmal atrial fibrillation (HC) Take 1 Tablet (2.5 mg) by mouth two times daily. 180 Tablet 3 07/18/19 24 024 Discontin ued(Reord er (E-cancel not sent)) empagliflozin (Jardiance) 25 mg tabletIndications :Type 2 diabetes mellitus without complication, with long-term current use of insulin (HC) Take 1 Tablet (25 mg) by mouth once daily. 90 Tablet 1 10/20/19 24 024 Discontin ued(Reord er (E-cancel not sent)) carvediloL (COREG) 25 mg tabletIndications :HTN (hypertension) Take 1 Tablet (25 mg) by mouth two times daily with meals. 180 Tablet 1 01/14/20 24 024 Discontin ued(Reord er (E-cancel not sent)) atorvastatin (LIPITOR) 20 mg tabletIndications :Hyperlipidemia, unspecified hyperlipidemia type TAKE 1 TABLET(20 MG) BY MOUTH DAILY 30 Tablet 04/19/20 24 024 Discontin ued(Reord er (E-cancel not sent)) valsartan (DIOVAN) 320 mg tabletIndications :HTN (hypertension) TAKE 1 TABLET(320 MG) BY MOUTH DAILY 30 Tablet 04/22/20 24 024 Discontin ued(Reord er (E-cancel not sent)) Active Problems Problem Noted Date Diagnosed Date Atherosclerotic heart diseas e of [place] coronary artery with other forms of angina pectoris 10/20/2023 Aortic stenosis 09/25/2023 Overview (09/25/2023): mod to severe by TTE 09/21/23 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 [...] Encounters Date Type Department Care Team Description 05/16/2024 1:15 PM VOLUNTEER ASSISTANT Office Visit [facility] [address] [place] [address] Luiz Bullock MD Diabetes (Follow up) 05/16/2024 Travel 05/06/2024 Telephone [facility] [address] [place] [address] Luiz Bullock MD Medication Management (Dose questions on abx) 04/21/2024 Refill [facility] [address] [place] [address] Luiz Bullock MD Refill Request (Valsartan) 04/19/2024 Refill [facility] [address] [place] [address] Luiz Bullock MD Refill Request (Atorvastatin) 04/16/2024 Refill [facility] [address] [place] [address] Luiz Bullock MD Refill Request (Atorvastatin) 04/13/2024 9:43 AM VOLUNTEER ASSISTANT - 04/13/2024 11:59 PM VOLUNTEER ASSISTANT Hospital Encounter [facility] [address] [place] [address] Luiz Bullock MD Tierney, Doreen A, CHAIN TENDER Dysphagia, unspecified type 04/13/2024 Telephone [facility] [address] [place] [address] Luiz Bullock MD compression socks (Kristofer Garcia, is calling needing a prescription for Compression socks/) 04/13/2024 Travel 04/08/2024 12:45 PM VOLUNTEER ASSISTANT - 04/08/2024 11:59 PM VOLUNTEER ASSISTANT Hospital Encounter [address] [address] Luiz uBllock MD Tierney, Doreen A, CHAIN TENDER 04/08/2024 Travel 04/06/2024 Telephone [facility] [address] [place] [address] Luiz Bullock MD Dysphagia (Would like to do a repeat swallow study to assess patients progress prior to discharge from outpatient therapy for dysphagia. ) 04/05/2024 1:15 PM VOLUNTEER ASSISTANT - 04/05/2024 11:59 PM VOLUNTEER ASSISTANT Hospital Encounter [address] [address] Luiz Bullock MD Tierney, Doreen A, CHAIN TENDER 04/04/2024 12:49 PM VOLUNTEER ASSISTANT - 04/04/2024 11:59 PM VOLUNTEER ASSISTANT Hospital Encounter [address] [address] Luiz Bullock MD Tierney, Doreen A, CHAIN TENDER 04/04/2024 Travel 03/29/2024 1:19 PM VOLUNTEER ASSISTANT - 03/29/2024 11:59 PM VOLUNTEER ASSISTANT Hospital Encounter [address] [address] Luiz Bullock MD Tierney, Doreen A, SLP 03/28/2024 2:30 PM VOLUNTEER ASSISTANT - 03/28/2024 11:59 PM VOLUNTEER ASSISTANT Hospital Encounter [address] [address] Luiz Bullock MD Tierney, Doreen A, NAN 03/28/2024 Travel 03/24/2024 Refill [facility] [address] [place] [address] Luiz Bullock MD Refill Request (Fluticasone (50 Mcg Per Actuation) Nasal) 03/22/2024 9:47 AM VOLUNTEER ASSISTANT - 03/22/2024 11:59 PM VOLUNTEER ASSISTANT Hospital Encounter [address] [address] Luiz Bullock MD Tierney, Doreen A, CHAIN TENDER 03/22/2024 Travel 03/18/2024 2:36 PM CDT - 03/18/2024 11:59 PM CDT Hospital Encounter [address] [address] Luiz Bullock MD Tierney, Doreen A, NAN 03/17/2024 1:30 PM CDT - 03/17/2024 11:59 PM CDT Hospital Encounter [address] [address] Luiz Bullock MD Tierney, Doreen A, SLP 03/17/2024 Travel 03/10/2024 1:03 PM CDT - 03/10/2024 11:59 PM CDT Hospital Encounter [address] [address] Luiz Bullock MD Tierney, Doreen A, SLP 03/10/2024 11:30 AM CDT Office Visit [facility] [address] [place] [address] Fidel Patel MD Sleep Follow-up 03/09/2024 2:17 PM CDT - 03/09/2024 11:59 PM CDT Hospital Encounter [address] [address] Luiz Bullock MD Tierney, Doreen A, NAN 03/09/2024 Travel 03/07/2024 1:54 PM CDT - 03/07/2024 11:59 PM CDT Hospital Encounter [address] [address] Luiz Bullock MD Tierney, Doreen A, NAN 03/07/2024 Travel 03/04/2024 12:50 PM CDT - 03/04/2024 11:59 PM CDT Hospital Encounter [address] [address] Luiz Bullock MD Tierney, Doreen A, NAN 03/04/2024 Travel 03/02/2024 3:04 PM CDT - 03/02/2024 11:59 PM CDT Hospital Encounter [address] [address] Luiz Bullock MD Tierney, Doreen A, CHAIN TENDER 03/02/2024 Travel 03/01/2024 Orders Only [facility] Scanner 1 scan: (1-Ord) RESMED, COMPLIANCE REPORT, 03/01/2024 02/29/2024 1:49 PM CDT - 02/29/2024 11:59 PM CDT Hospital Encounter [address] [address] Luiz Bullock MD Tierney, Doreen A, CHAIN TENDER 02/29/2024 Travel 02/29/2024 Refill [facility] [address] [place] [address] Luiz Bullock MD Refill Request (Spironolactone) 02/26/2024 Telephone [facility] [address] [place] [address] Luiz Bullock MD Medication Management 02/25/2024 10:46 AM CDT - 02/25/2024 11:59 PM T Hospital Encounter [address] [address] Luiz Bullock MD Tierney, Doreen A, SLP 02/25/2024 Travel 02/23/2024 10:46 AM CDT - 02/23/2024 11:59 PM T Hospital Encounter [address] [address] Luiz Bullock MD Tierney, Doreen A, SLP 02/23/2024 Travel from Last 3 Months Immunizations Name Administration Dates Next Due AMB INFLUENZA IIV3 (AGE 65+ YRS) PF (Flu Clinic Only) 03/04/2019 AMB Influenza, IIV3 (Age >=3 years)(Flu Clinic Only) 03/09/2012,03/07/2008 AMB Influenza, IIV4 PF (=>6 mos Flulaval,Fluzone Fluarix)(Flu Clinic Only) 04/08/2016 Amb Influenza, Inact (High-d ose) (Flu Clinic Only) 02/09/2014 COVID-19 VACCINE SPIKEVAX (M ODERNA 50MCG/0.5ML) 12YO+ PFS 05/21/2023 COVID-19 vaccine (Pfizer-Bio NTech 30mcg/0.3mL) 12YO+ BIVALENT PF, MDV 10/21/2022 COVID-19 vaccine (Pfizer-Bio NTech 30mcg/0.3mL) 12YO+ CORBY-SUCROSE PF, MDV 08/22/2021 COVID-19 vaccine (Pfizer-Bio NTech 30mcg/0.3mL) PF, MDV 07/24/2020,07/03/2020 Hepatitis B (Adult) 10/10/2020 Influenza Virus, Unspecified 02/16/2012, 02/16/2008,02/15/2007,2002 Influenza, High-dose Inactivated 01/27/2024,11/0 01/2015,02/09/2014 Influenza, High-dose Quadriv alent Inactivated 02/17/2022,03/07/2021 Influenza, [...] alcohol) Less that 1 beer per month. [facility] Utilities Answer Date Recorded Do you have trouble paying f or utilities (for example, heat, electricity, water, phone)? Yes 09/15/2023 PHQ-2 Answer Date Recorded PHQ-2 TOTAL SCORE 0 01/14/2024 Social Connections Answer Date Recorded Do you often feel lonely or isolated from those around you? 0 09/15/2023 Financial Resource Strain Answer Date R ecorded Difficulty of Paying Living Expenses 3 09/15/2023 Difficulty of Paying Living Expenses Not on file 09/15/2023 Food Insecurity Answer Date Recorded Do you worry your food will run out before you are able to buy more? 1 09/15/2023 Transportation Needs Answer Date Record ed Does lack of transportation keep you from medica l appointments? 1 09/15/2023 Does lack of transportation keep you from work, meetings or getting things that you need? 1 09/15/2023 Housing Stability Answer Date Recorded What is your housing situation today? 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 file N ot on file Not on file Obstetrics History Last Filed Vital Signs Vital Sign Reading Time Taken Comments Blood Pressure 133/67 05/16/2024 1:09 PM VOLUNTEER ASSISTANT Pulse 70 05/16/2024 1:09 PM VOLUNTEER ASSISTANT Temperature 36.5 C (97.7 F) 09/15/2023 11:54 AM CDT Respiratory Rate 16 04/02/2023 1:19 PM VOLUNTEER ASSISTANT Oxygen Saturation 96% 05/16/2024 1:09 PM VOLUNTEER ASSISTANT Inhaled Oxygen Concentration - - Weight 78.7 kg (173 lb 9.6 oz) 05/16/2024 1:09 P M VOLUNTEER ASSISTANT Height 171 cm (5' 7.32) 03/10/2024 11:29 AM CDT Body Mass Index 26.93 03/10/2024 11:29 AM CDT Plan of Treatment Upcoming Encounters Date Type Department Care Team (Late st Contact Info) Description 05/27/2024 12:00 PM VOLUNTEER ASSISTANT Procedure Only [facility] [address] [place] [address] Rebeca Brizuela L [address] [place] [address] 06/15/2024 8:45 AM VOLUNTEER ASSISTANT Appointment [facility] [address] [facility] [place] [address] Sukhdeep Krishna, PT [address] [facility] JESUSITA Sellers [address] 2024 2:05 PM CDT Office Visit [facility] [address] [place] [address] Luiz Bullock MD [address] [place] [address] Health Maintenance Due Date Last Done Comments RSV vaccine for adults or (1 - 1-dose 75+ series) 11/14/2010 COVID-19 vaccine series ( season) 2024 01/27/2024, 05/21/2023, 10/21/2022, Additional history exists Depression screening for age 12+ 01/13/2025 01/14/2024, 12/29/2022, 12/26/2022, Additional history exists Medicare Wellness for age 65+ 01/14/2025, 12/26/2022, 05/03/2020 BMI (ht and wt on same day) for age 18+ 03/10/2025 03/10/2024, 01/14/2024, 12/26/2022, Additional history exists Tetanus booster 06/12/2030 06/12/2020, 1205/2008, 12/25/1998 Tdap Completed 06/12/2020 Zoster (shingles) series for age 50+ Completed 10/10/2020, 06/12/2020 Pneumococcal series for age 50+ Completed 12/30/2021, 01/29/2010, 05/18/2004, Additional history exists Influenza for age 65+ Completed 01/27/2024 , 04/22/2023, 02/17/2022, Additional history exists Procedures Procedure Name Priority Date/Time Associated Diagnosis Comments URINE ALBUMIN TO CREATININE RATIO, RANDOM Routine 05/16/2024 1:03 PM VOLUNTEER ASSISTANT Type 2 diabetes mellitus without complication, with long-term current use of insulin (HC) HEMOGLOBIN A1C MONITORING (POCT) Routine 05/16/2024 12:58 PM VOLUNTEER ASSISTANT Type 2 diabetes mellitus without complication, with long-term current use of insulin (HC) XR VIDEO SWALLOW W SPEECH Routine 04/13/2024 10:17 AM VOLUNTEER ASSISTANT Dysphagia, unspecified type SCAN-DIAGNOSTIC REPORT 03/01/2024 12:00 AM CDT from Last 3 Months Results * (ABNORMAL) URINE ALBUMIN TO CREATININE RATIO, RANDOM (05/16/2024 1:03 PM VOLUNTEER ASSISTANT) ALB RAND URINE 49.6 mg/L 05/16/2024 11:17 PM VOLUNTEER ASSISTANT [facility] CREATININE,URIN E 0.90 g/L 05/16/2024 11:17 PM VOLUNTEER ASSISTANT [facility] ALBUMIN TO CREATININE RATIO,RAND UR 55.1(H) <30.0 mg/g creat 05/16/2024 11:17 PM VOLUNTEER ASSISTANT [facility] Urine URINE SPECIMEN / Unknown Non-Blood / Unknown 05/16/2024 1:03 PM VOLUNTEER ASSISTANT 05/16/2024 1:03 PM VOLUNTEER ASSISTANT Narrative [facility] - 05/16/2024 11:17 PM VOLUNTEER ASSISTANT If Albumin to Creatinine Ratio is elevated, consider the following: Elevations seen with incipient nephropathy associated with diabetes mellitus or hypertension. Stress, exercise,hematuria, and urinary tract infection may also produce elevated results. If clinically indicated, confirm with 24 Hour Albumin to Creatinine Ratio. us Luiz Bullock MD URINE Final Result [facility] [address] [place] [address], [place] * (ABNORMAL) HEMOGLOBIN A1C MONITORING (POCT) (05/16/2024 12:58 PM VOLUNTEER ASSISTANT) POC HEMOGLOBIN A1C 7.5(H) <6.0 % OF TOTAL HGB [facility] Comment: Any point of care results exhibiting inconsistency with the patient's clinical status should be repeated using a different testing method. Blood BLOOD SPECIMEN / Unknown 05/16/2024 12:58 PM VOLUNTEER ASSISTANT 05/16/2024 12:58 PM VOLUNTEER ASSISTANT Luiz Bullock MD CHEMISTRY Final Result [facility] [address] [place] [address], [facility] [address] [place] [address] * XR VIDEO SWALLOW AND TREATMENT W SPEECH (04/13/2024 10:17 AM VOLUNTEER ASSISTANT) Anatomical Region Laterality Modality Esophagus Computed Radiogr aphy, Other 04/13/2024 10:2 6 AM VOLUNTEER ASSISTANT Narrative 04/13/2024 10:26 AM VOLUNTEER ASSISTANT For Patients: As a result of the Cures Act, medical imaging exams and procedure reports are released immediately into your electronic medical record. You may view this report before your referring provider. If you have questions, please contact your health care provider. INDICATION: Dysphasia. TECHNIQUE: Video swallowing study. Fluoroscopy time 3 minute 6 seconds. Multiple cine images. FINDINGS: Minimal laryngeal penetration with thin liquids. No tracheal aspiration with thin liquids. Please see the speech therapist`s report for further details. Dictated by Sisi Turner MD @ 04/13/2024 10:26:16 AM (Electronically Signed) Procedure Note Adrien Turner MD - 04/13/2024 For Patients: As a result of the Cures Act, medical imagingexams and procedure reports are released immediately into your electronicmedical record. You may view this report before your referring provider.If you have questions, please contact your health care provider. INDICATION: Dysphasia. TECHNIQUE: Video swallowing study. Fluoroscopy time 3 minute 6 seconds. Multiple cine images. FINDINGS: Minimal laryngeal penetration with thin liquids. No tracheal aspirationwith thin liquids. Please see the speech therapist`s report for further details. Dictated by Sisi Turner MD @ 04/13/2024 10:26:16 AM (Electronically Signed) us Luiz Bullock MD FLUOROSCOPY Final Result * SCAN-DIAGNOSTIC REPORT (03/01/2024 12:00 AM CDT) us Scanner OTHER Final Result from Last 3 Months Insurance MEDICARE PB ONLY [facility] FED EMP MEDICARE PART A HB ONLY MEDICARE PART B HB ONLY * Guarantor: MARTHA GENTILE [facility] Account Type Relation to Patient Date of Phone Billing Address [facility] [employer] Employer [address] [facility] [place] [address] Care Teams Accordion Tuner Relationship Specialty Start Date End Date Luiz Bullock MD [address] [place] [address] PCP - General Family Practice 07/03/20
--- OUTSIDE RECORDS SUMMARY | 2024-05-22 12:17 | XMS_ITS | Continuity of Care Document ---
Author Name NwHIN User [email or web address]-a llowed Address Unknown Organization Unknown Address Unknown Alerts, Allergies and Adverse Reactions FILTER APPLIED:All Known Active Allergies Substance Reaction Onset Status (AMLODIPINE) Unknown (Mild), OTHER (Mild) Active (METFORMIN) DIARRHEA (Mild) Active Procedures FILTER APPLIED:Only known Procedures with Onset Date within the last 5 years Procedure Date Procedure Provider Additiona l Information Status COMPREHEN METABOLIC PANEL (12767) Completed EMERGENCY DEPT VISIT HI MDM (39029) Completed TTE W/DOPPLER COMPLETE (53845) Completed AGENT NOS ASSAY W/OPTIC (32526) Completed NOS EACH ORGANISM AG IA (07697) Completed BLOOD CULTURE FOR BACTERIA (56185) Completed PROCALCITONIN (PCT) (63436) Completed EMERGENCY DEPT VISIT MOD MDM (13859) Completed MEASURE BLOOD OXYGEN LEVEL (42278) Completed ELECTROCARDIOGRAM TRACING (28563) Completed RESP VIRUS 3-5 TARGETS (12445) Completed C-REACTIVE PROTEIN (70884) Completed COMPLETE CBC W/AUTO DIFF WBC (64777) Completed ASSAY OF TROPONIN QUANT (90081) Completed ROUTINE VENIPUNCTURE (02259) Completed X-RAY EXAM CHEST 2 VIEWS (08579) Completed METABOLIC PANEL TOTAL CA (13089) Completed ASSAY OF LACTIC ACID (64812) Completed ASSAY OF NATRIURETIC PEPTIDE (94358) Completed EMERGENCY DEPT VISIT LOW MDM (18754) Completed ASSAY OF CREATININE (90841) Completed CT ABDOMEN PELVIS W CONTRAST (MVJ046) Completed PROTIME-INR (BVL257) Com pleted BLOOD SMEAR REVIEW ([id number]) Completed MANUAL DIFFERENTIAL (NBB618) Completed CBC WITH AUTO DIFF ([id number]) Completed COMPREHENSIVE METABOLIC PANEL (LAB17) Completed Results FILTER APPLIED:Only known Results with Collection Date within the last 5 years Result Type Result Name Result Units Reference Range Collection Date Abnormality Status Report Comments CT ABDOMEN PELVIS W CONTRAST CT ABDOMEN PELVIS W CONTRAST (PAQ379) DATE OF STUDY: 03/22/2022 11:57 AMSTUDY: CT ABDOMEN PELVIS W CONTRASTHI STORY: Peritoniti s or perforatio n suspectedm assive lower GI bleed. Looking for bleeding source site with angioCOMPA RISONS: NoneThis CT exam was performed using one or more of the following dose reduction techniques : Automatic Exposure Control, adjustment of the mA and/or kV according to patient size, and/or use of iterative reconstruc tion techniques .FINDINGS: There is fatty infiltrati on of liver. No focal hepatic mass. No bile duct dilatation . The patient is status post cholecyste ctomy. The adrenal glands are normal. There is a small low attenuatio n lesions within the LEFT kidney. These likely represent cysts. The RIGHT kidney is normal. The pancreas and spleen are likewise normal. No aortic aneurysm. There are some calcified nodules identified within the mesentery adjacent to the transverse colon. This may represent sequela from prior surgery or potentiall y calcified nodes related to prior granulomat ous disease or prior malignancy . No free air. No free fluid. Negative for evidence of a diverticul itis. No RIGHT lower quadrant inflammato ry process to suggest appendicit is. There are areas of thickening within the colon involving the descending colon and sigmoid colon suggesting a colitis. Hyperdensi ty is demonstrat ed within the colon consistent with active hemorrhage . Mild small bowel wall thickening is also noted suggesting anenteriti s. Negative for evidence of acute appendicit is. No bowel obstructio n. There is thickening of the urinary bladder wall. This is likely due to nondistent ion and muscular hypertroph y. Cystitis would give a similar appearance . No lumbar compressio n deformity. No concerning lytic or blastic bone lesion. No acute fracture. Chronic interstiti al lung changes are noted within the RIGHT and LEFT lung. No pleural effusion. No pericardia l effusion. Cardiomega ly is demonstrat ed.IMPRESS ION:Active hemorrhage within the distal descending colon and proximal sigmoid colonElect ronically signed by Brian Luna MD 03/23/2022 4:45 AM Final results; results stored and verified. Can only be changed with a corrected result. Is this exam being sent to [facility] for reading?- >Yes Is this exam being sent to [facility] for a prelim or final read?->Pr eliminary What is the reading priority for this exam?-> AP Number of images in current exam:->28 6 Encounters FILTER APPLIED:Only known Encounters with Admission Date within the last 5 years Encounter Location Admission Discharge Billing Code Poultryman Attender Emergency [id number] .1.13.231.2.7. [id number] AGATHA PERDOMO Outpatient [facility] Inpatient [facility] Emergency Rohini Wright Unknown [id number] Claire Moran Outpatient [id number] .1.13.8.2.7.7. [id number] [facility] Recurring Patient 1.2.840.897799 .1.13.8.2.7.7. 470589.449 [facility] Recurring Patient 1.2.840.046461 .1.13.8.2.7.7. 773587.449 [facility] Recurring Patient 1.2.840.023311 .1.13.8.2.7.7. 138769.449 EN[facility] Recurring Patient 1.2.840.199228 .1.13.8.2.7.7. 020665.449 ENOC [facility] Recurring Patient 1.2.840.701167 .1.13.8.2.7.7. 324853.449 ENOC [facility] Recurring Patient 1.2.840.669464 .1.13.8.2.7.7. 934654.449 ENOC [facility] Recurring Patient 1.2.840.186251 .1.13.8.2.7.7. 313847.449 ENOC [facility] Recurring Patient 1.2.840.513584 .1.13.8.2.7.7. 469938.449 ENOC [facility] Recurring Patient 1.2.840.473018 .1.13.8.2.7.7. 076475.449 ENOC [facility] Recurring Patient 1.2.840.310983 .1.13.8.2.7.7. 594949.449 ENOC [facility] Recurring Patient 1.2.840.383702 .1.13.8.2.7.7. 111271.449 ENOC [facility] Recurring Patient 1.2.840.165000 .1.13.8.2.7.7. 834397.449 ENCO [facility] Recurring Patient 1.2.840.263208 .1.13.8.2.7.7. 755535.449 ENOC [facility]ENTON Recurring Patient 1.2.840.847870 .1.13.8.2.7.7. 889166.449 ENOC SMITHWIN Recurring Patient 1.2.840.373503 .1.13.8.2.7.7. 795260.449 ENOC [facility]ENTON Recurring Patient 1.2.840.809766 .1.13.8.2.7.7. 868950.449 ENOC [facility]ENTON Recurring Patient 1.2.840.852597 .1.13.8.2.7.7. 092341.449 ENOC FENTON Recurring Patient 1.2.840.220750 .1.13.8.2.7.7. 216912.449 ENOC SMITHWIN Recurring Patient 1.2.840.662855 .1.13.8.2.7.7. 706241.449 ENOC FENTON Recurring Patient 1.2.840.782628 .1.13.8.2.7.7. 021134.449 ENOC FENTON Recurring Patient 1.2.840.154010 .1.13.8.2.7.7. 780170.449 ENOC FENTON Outpatient 1.2.840.983290 .1.13.8.2.7.7. 402226.449 ENOC [facility]
--- OUTSIDE RECORDS SUMMARY | 2024-05-22 12:17 | XMS_ITS | Encounter Summary ---
Author Organization [facility] Address [address] [place] [address] Care Team Providers Care Salesperson Burial Needs Name Role Phone Elsewhere, Pcp Primary Care Provider Unavailabl e Reason for Visit * Outpatient (Routine) - Closed Specialty Diagnoses / Procedures Referred By Contac t Referred To Contact Neurological Surgery Diagnoses Cyst Arachnoid Procedures Neurological surgery - Spine tumor eConsult Crystal Whitten, WANDA, C.N.P., M.S.N. [address] [place] [phone] Phone: tel: fax: [facility] Referral ID Status Reason Start Date Expiration Date Visits Re quested Visits Authorized [id number] Closed 03/30/2024 03/30/2025 1 1 Encounter Details Date Type Department Care Team (Latest Contact Info) Description 04/18/2024 7:00 AM [facility] Internal E-Consult Department of Neurologic Surgery in [place], [place] [address] [place] [phone] Valerie Meyers M.D. [address] [place] [phone] Cyst Arachnoid (Primary Dx) Social History Tobacco Use Types [...] week 12/31/2021 How often do you attend [facility] or congregational services? Patient declined 12/31/2021 Do you belong [...] and heating? Not hard at all 12/31/2021 [facility] - Occupational Stress [...] or slept in a assisted (including now)? No 12/31/2021 Nutrition Answer Date Recorded On average, how many serving s of [...] Assigned at Male 12/31/2021 3:41 PM CDT Legal Sex Male 8:35 AM [facility] Gender Identity Male 12/09/2017 1:17 PM CDT Sexual Orientation Straight 12/09/2017 1: 17 PM CDT documented as of this encounter Consult Notes * Valerie Meyers M.D. - 04/18/2024 7:00 AM CST I have not seen this patient. I am asked to review the record by my colleagues Ms. Whitten. I see that the patient is an 88-year-old gentleman from [facility]. He has a number of medical comorbidities as documented. He is on chronic anticoagulation. [facility] mid back pain. The patient has had a number of falls over an indeterminate period of time. Ahn1 of these he fell on a Anshul table striking his right mid back. Since that fall he has been experiencing pain. This fall happened 1 year ago. It seems as if the pain is worst in the morning and diminishes over the course of the day. He has had no other symptoms suggestive of neurologic impairment. I see that a neurologic exam shows that the patient's stands and walks with a kyphotic posture. Histandem gait is unsteady but his Romberg is normal for age. His leg strength is normal. His deep tendon reflexes are normal any has no sign of Babinski. His cervical imaging shows spondylosis but no areas of cord compression. In the thoracic spine there is a lesion at the T6/7 level. 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 I do not think any surgical treatment is advisable. 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 We could consider following this with a follow-up neurology evaluation at some point in the future.Alternatively given the patient's age it would be reasonable to follow up p.r.n. should his symptoms progress. [facility] documented in this encounter Plan of Treatment Not on file documented as of this encounter Visit Diagnoses Diagnosis Cyst Arachnoid- Primary documented in this encounter Care Teams Salesperson Burial Needs Relationship Specialty Start Date End Date Elsewhere, Pcp PCP - General Family Medicine 01/10/21 documented as of this encounter
--- OUTSIDE RECORDS SUMMARY | 2024-05-22 12:17 | XMS_ITS ---
Author Organization [facility] Address [address] [place] [address] Care Team Providers Care Clinical Research Nurse Name Role Phone Unavailable Unavailable Unavailable Surgery Details Not on file Complications Check Surgery Details section. Procedure Estimated Blood Loss Check Surgery Details section. Procedure Findings Check Surgery Details section. Procedure Specimens Taken Check Surgery Details section.
--- OUTSIDE RECORDS SUMMARY | 2024-05-22 12:17 | XMS_ITS | Referral Summary ---
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 For routine questions regarding patient records, call [phone] during business hours, M-F 8:00 AM - 5:00 PM Central Time. 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 Cyst Arachnoid (Primary Dx); Pain Neck; Pain Back 03/09/2024 Orders Only Department of Cardiovascular Medicine in [place], [place] [address] [place] [address] Gt Ricks MPAS, P.A.-C., M.S. Pain Neck (Primary Dx); Pain Back 03/08/2024 10:08 AM CDT - 03/08/2024 11:59 PM CDT Hospital Encounter Department of Radiology, [facility] in [place], [place] [address] [place] [address] Gt Ricks MPAS, P.A.-C., M.S. Pain Neck; Pain Back Discharge Disposition: Home or Self Care from Last 3 Months Allergies Active Allergy Reactions Criticality Noted Date Comments Amlodipine Other (see comments),Edema (Reselect Reaction) Low 08/06/2020 Leg swelling on 5mg Leg swelling on 5mg Leg swelling on 5mg Metformin Diarrhea,GI intolerance High 07/03/2020 Medications ascorbic acid, vitamin C, (VITAMIN C) 500 mg tablet Take 1 tablet by mouth daily. 2 Active vitamin E 400 unit capsule Take 1 capsule by mouth daily. 2 Active carvediloL (COREG) 25 mg tablet Take 25 mg by mouth 2 (two) times a day with meals. 0 Active atorvastatin (LIPITOR) 20 mg tablet Take 20 mg by mouth at bedtime. 1 Active silver sulfADIAZINE (SILVADENE, SSD) 1 % cream Apply 1 application topically as needed. 9 Active triamcinolone (KENALOG) 0.1 % cream Apply 1 application topically as needed. 1 Active valsartan (DIOVAN) 320 mg tablet Take 320 mg by mouth daily. 0 Active DME CPAP DME Order Active spironolactone (ALDACTONE) 25 mg tablet Take 0.5 tablets (12.5 mg total) by mouth daily. 45 tablet 3 1 Active Additional Information Patient taking differently: 25 mgoral Daily,25 mg Daily, Reported on 08/11/2023 fluticasone propionate (FLONASE) 50 mcg/actuation nasal spray Administer 2 sprays into nostril(s) as needed. 1 Active omeprazole (PriLOSEC) [address] capsule Take 40 mg by mouth every morning before breakfast. 2 Active blood sugar diagnostic (Truetrack Test) strips TEST 1 TIME PER DAY 2 Active Accu-Chek Guide Glucose Meter misc See Admin Instructions. 2 Active Accu-Chek Softclix Lancets lancets daily. for testing 2 Active [address] tablet Take 1 tablet (81 mg total) by mouth daily. 30 tablet 2 Active empagliflozin (JARDIANCE) 25 mg tablet Take by mouth. 3 Active Eliquis 2.5 mg tablet 2.5 mg 2 (two) times a day. 3 Active ofloxacin (OCUFLOX) 0.3 % ophthalmic solution Use one drop in the operated eye four times daily for 7 days. Start the evening before surgery. 5 mL 3 Active doxycycline hyclate (VIBRA-TABS) 100 mg tablet Take 100 mg by mouth as needed (gout). 3 Active peg 400-propylene glycol (SYSTANE) 0.4-0.3 % ophthalmic solution Administer 1 drop into both eyes 2 (two) times a day as needed for dry eyes. Active albuterol 90 mcg/actuation inhaler Inhale 1-2 puffs every 4 (four) hours as needed. 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) 01/10/2021 Coronary Stent Status Post 01/10/2021 Hypertensive Chronic Kidney Disease With Stage 1 Through Stage 4 Chronic Kidney Disease, Or Unspecified Chronic Kidney Disease 01/10/2021 Hemorrhage Retinal Bilateral 01/02/2021 Hemorrhage Vitreous Right 01/02/2021 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 01/02/2021 Sickle Cell Disease 01/02/2021 Dyspnea On Exertion 01/02/2021 Overview (01/02/2021): Added automatically from request for surgery [id number] Chronic Migraine With Aura, Not Intractable, Without Status Migrainosus 01/01/2021 Stenosis Aortic Valve Acquired 12/31/2020 Diabetes Mellitus Type 2 12/31/2020 Amaurosis Fugax 12/31/2020 Lung Interstitial Disease 12/31/2020 Anemia 12/07/2018 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 Patient declined 12/31/2021 Do you belong to any clubs o r organizations such as pentecostalism groups, unions, [employer] or athletic groups, or school groups? No [...] and heating? 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 Gender Identity Male 12/09/2017 1:17 PM CDT Sexual Orientation Straight 12/09/2017 1: 17 PM CDT Last Filed Vital Signs Vital Sign Reading Time Taken Comments Blood Pressure 171/68 02/08/2024 9:30 AM CDT Pulse 67 02/08/2024 9:30 AM CDT Temperature 36.2 C (97.2 F) 11/13/2023 12:50 PM CDT Respiratory Rate 21 11/13/2023 1:25 PM CDT Oxygen Saturation 98% 02/08/2024 9:30 AM CDT Inhaled Oxygen Concentration - - Weight 79 kg (174 lb 2.6 oz) 02/08/2024 9:30 AM CDT Height 169.9 cm (5' 6.89) 02/08/2024 9:30 AM CD T Body Mass Index 27.37 02/08/2024 9:30 AM CDT Plan of Treatment Not on file Medical Devices Implanted Type Area Coil Winder Strap Device Identifier Shelf Expiration Date Model / Serial / Lot Stnt Synergy Xd De 2.50x32 - [id number] Implanted:Qty : 1 on 01/10/2021 by Jeffery Arroyo M.D., Ph.D. at [facility] Cardiac Stent N/A: Coronary [employer] 04/30/2022 [id number] / / [id number] Description:Mid LAD Stnt Synergy Xd De 3.00x32 - [id number] Implanted:Qty : 1 on 01/10/2021 by Jeffery Arroyo M.D., Ph.D. at [facility] Cardiac Stent N/A: Coronary [employer] 09/27/2022 [id number] / / [id number] Description:OM Stnt Synergy Xd De 3.50x12 - [id number] Implanted:Qty : 1 on 01/10/2021 by Jeffery Arroyo M.D., Ph.D. at [facility] Cardiac Stent N/A: Coronary [employer] 08/21/2022 [id number] / / [id number] Description:pLCx Lens Tcn Mnfcl Dcb00 +22.5d - [id number] - [id number] Implanted:Qty : 1 on 09/11/2022 by Rosina Manuel M.D. at [facility] [employer] Ocular Lens Left: Eye [employer] (Previously MERRY) 07/01/2025 [id number] / [id number] / Lens Tcn Mnfcl Dcb00 +23.0d - [id number] - [id number] Implanted:Qty : 1 on 10/28/2022 by Santosh Toth M.D., Ph.D. at [facility] Ocular Lens Eye [employer] (Previously MERRY) 07/29/2025 [id number] / [id number] / Procedures Procedure Name Priority Date/Time Associated Diagnosis Comments MR THORACIC SPINE WITHOUT IV CONTRAST RAD - Routine (most inpatients and all outpatients) 03/08/2024 11:18 AM CDT Pain Back MR CERVICAL SPINE WITHOUT IV CONTRAST RAD - Routine (most inpatients and all outpatients) 03/08/2024 11:18 AM CDT Pain Neck COMPREHENSIVE METABOLIC PANEL, S/P Routine 02/04/2024 11:35 AM CDT Stenosis Aortic Valve Acquired Coronary Stent Status Post Diabetes Mellitus Type 2 (HCC) OPHTHALMOLOGY IMAGE EXAM Routine 08/12/2023 12:00 AM CDT from Last 3 Months or Most Recently Relevant to Health Maintenance Results * MR Thoracic Spine without IV Contrast (03/08/2024 11:18 AM CDT) Anatomical Region Laterality Modality Thoracic Spine, Neuroradiolo gy [facility], Neuroradiology [facility], Neuroradiology [facility] N/A Magnetic Resonance Impressions 03/08/2024 2:51 PM CDT 1. Multilevel cervical spondylotic changes, as described, without high-grade spinal canal narrowing. 2. Multilevel neural foraminal narrowing, most prominent on the left at C5-6 where it is moderate. 3. Bilateral atlantoaxial and atlantooccipital joint effusions. 4. Focal distortion of the dorsal cord at the level of T6-7 which may be artifactual related to CSF pulsation, however an arachnoid cyst could have a similar appearance. The CSF space is preserved ventrally. No associated cord signal abnormality. 5. Multilevel thoracic spondylotic changes, as described, without significant spinal canal or neural foraminal narrowing. Narrative 03/08/2024 2:51 PM CDT EXAM: MR CERVICAL SPINE WITHOUT IV CONTRAST, MR THORACIC SPINE WITHOUT IV CONTRAST COMPARISON: CT of the cervical spine without IV contrast dated 04/06/2023. FINDINGS: CERVICAL: As seen on comparison CT, there is multilevel degenerative disc disease with disc space height loss, greatest at C5-6 and C6-7 posteriorly. Mild Modic type I endplate changes at C6-7 anteriorly. Ligamentum flavum redundancy at C3-4, C4-5, and C5-6 indents the dorsal thecal sac with overall mild associated spinal canal narrowing. Diffuse disc bulge at C5-6 contributes to mild spinal canal narrowing at this level. Diffuse disc bulge at C6-7 results in mild spinal canal narrowing. No high-grade cervical spinal canal narrowing. Combination of uncovertebral and facet joint arthropathy results in multilevel neural foraminal narrowing which is mild bilaterally at C3-4 and C4-5, moderate on the left and mild on the right at C5- 6, as well as mild bilaterally at C6-7. Normal flexion appearance and signal characteristics of the cervical cord. Bilateral atlantooccipital and atlantoaxial joint effusions. Absence of the left vertebral artery flow-void throughout the neck with relatively normal appearance of the flow void at the level of the V4 segment corresponds to the proximal occlusion with distal reconstitution seen on CTA of 12/25/2021. THORACIC: The thoracic spinal canal appears widely patent, however there is focal distortion of the dorsal aspect of the cord at the level of T6-7 (series 11 image 8) with preservation of the CSF space ventrally. While this may be artifactual related to CSF pulsation, a small arachnoid cyst could also have this appearance. No associated cord signal abnormality to suggest cord edema or myelomalacia. Multilevel cervical spondylotic changes with multilevel degenerative disc disease, greatest within the mid thoracic spine. Mild wedging of multiple mid and lower thoracic vertebral bodies, most notably the T7-T9 vertebral bodies as well as T11, with mild exaggeration the normal thoracic kyphosis. Multilevel thoracic facet arthropathy without significant spinal canal narrowing. Bilateral lower lung opacities, better evaluated on multiple prior chest CTs. 1.8 cm well-circumscribed focus within the right upper mediastinum adjacent to the right posterolateral margin of the trachea (series 13 image 5) corresponds with a well-circumscribed soft tissue focus seen on CT of 12/25/2021. This has been present since at least chest CT of 12/31/2020. This may represent a reactive lymph node given clinical history of interstitial lung disease but is technically nonspecific. Procedure Note Jerald Miranda M.D. - 03/08/2024 EXAM: MR CERVICAL SPINE WITHOUT IV CONTRAST, MR THORACIC SPINE WITHOUT IVCONTRAST COMPARISON: CT of the cervical spine without IV contrast dated106/06/2022. FINDINGS: CERVICAL: As seen on comparison CT, there is multilevel degenerative discdisease with disc space height loss, greatest at C5-6 and C6-7posteriorly. Mild Modic type I endplate changes at C6-7 anteriorly.Ligamentum flavum redundancy at C3-4, C4-5, and C5-6 indents the dorsal thecal sac with overall mild associated spinalcanal narrowing. Diffuse disc bulge at C5-6 contributes to mild spinalcanal narrowing at this level. Diffuse disc bulge at C6-7 results in mildspinal canal narrowing. No high-grade cervical spinal canal narrowing. Combination of uncovertebral and facetjoint arthropathy results in multilevel neural foraminal narrowing whichis mild bilaterally at C3-4 and C4-5, moderate on the left and mild on theright at C5-6, as well as mild bilaterally at C6-7. Normal flexion appearance and signal characteristicsof the cervical cord. Bilateral atlantooccipital and atlantoaxial jointeffusions. Absence of the left vertebral artery flow-void throughout the neck withrelatively normal appearance of the flow void at the level of the [id number] corresponds to the proximal occlusion with distal reconstitutionseen on CTA of 12/25/2021. THORACIC: The thoracic spinal canal appears widely patent, however thereis focal distortion of the dorsal aspect of the cord at the level of T6-7(series 11 image 8) with preservation of the CSF space ventrally. Whilethis may be artifactual related to CSF pulsation, a small arachnoid cyst could also have this appearance. Noassociated cord signal abnormality to suggest cord edema or myelomalacia.Multilevel cervical spondylotic changes with multilevel degenerative discdisease, greatest within the mid thoracic spine. Mild wedging of multiple mid and lower thoracic vertebralbodies, most notably the T7-T9 vertebral bodies as well as T11, with mildexaggeration the normal thoracic kyphosis. Multilevel thoracic facetarthropathy without significant spinal canal narrowing. Bilateral lower lung opacities, better evaluated on multiple prior chestCTs. 1.8 cm well-circumscribed focus within the right upper mediastinumadjacent to the right posterolateral margin of the trachea (series 13image 5) corresponds with a well-circumscribed soft tissue focus seen on CT of 12/25/2021. This hasbeen present since at least chest CT of 12/31/2020. This may represent areactive lymph node given clinical history of interstitial lung diseasebut is technically nonspecific. IMPRESSION: 1. Multilevel cervical spondylotic changes, as described, withouthigh-grade spinal canal narrowing. 2. Multilevel neural foraminal narrowing, most prominent on the left atC5-6 where it is moderate. 3. Bilateral atlantoaxial and atlantooccipital joint effusions. 4. Focal distortion of the dorsal cord at the level of T6-7 which may beartifactual related to CSF pulsation, however an arachnoid cyst could havea similar appearance. The CSF space is preserved ventrally. No associatedcord signal abnormality. 5. Multilevel thoracic spondylotic changes, as described, withoutsignificant spinal canal or neural foraminal narrowing. Gt SCHMIDT, P.A.-C., M.S. [facility] [place] PROC EDURES Final Result * MR Cervical Spine without IV Contrast (03/08/2024 11:18 AM CDT) Anatomical Region Laterality Modality Spine, Cervical Spine, Neuro radiology [facility], Neuroradiology [facility], Neuroradiology [facility] N/A Magneti c Resonance Impressions 03/08/2024 2:51 PM CDT 1. Multilevel cervical spondylotic changes, as described, without high-grade spinal canal narrowing. 2. Multilevel neural foraminal narrowing, most prominent on the left at C5-6 where it is moderate. 3. Bilateral atlantoaxial and atlantooccipital joint effusions. 4. Focal distortion of the dorsal cord at the level of T6-7 which may be artifactual related to CSF pulsation, however an arachnoid cyst could have a similar appearance. The CSF space is preserved ventrally. No associated cord signal abnormality. 5. Multilevel thoracic spondylotic changes, as described, without significant spinal canal or neural foraminal narrowing. Narrative 03/08/2024 2:51 PM CDT EXAM: MR CERVICAL SPINE WITHOUT IV CONTRAST, MR THORACIC SPINE WITHOUT IV CONTRAST COMPARISON: CT of the cervical spine without IV contrast dated 04/06/2023. FINDINGS: CERVICAL: As seen on comparison CT, there is multilevel degenerative disc disease with disc space height loss, greatest at C5-6 and C6-7 posteriorly. Mild Modic type I endplate changes at C6-7 anteriorly. Ligamentum flavum redundancy at C3-4, C4-5, and C5-6 indents the dorsal thecal sac with overall mild associated spinal canal narrowing. Diffuse disc bulge at C5-6 contributes to mild spinal canal narrowing at this level. Diffuse disc bulge at C6-7 results in mild spinal canal narrowing. No high-grade cervical spinal canal narrowing. Combination of uncovertebral and facet joint arthropathy results in multilevel neural foraminal narrowing which is mild bilaterally at C3-4 and C4-5, moderate on the left and mild on the right at C5- 6, as well as mild bilaterally at C6-7. Normal flexion appearance and signal characteristics of the cervical cord. Bilateral atlantooccipital and atlantoaxial joint effusions. Absence of the left vertebral artery flow-void throughout the neck with relatively normal appearance of the flow void at the level of the V4 segment corresponds to the proximal occlusion with distal reconstitution seen on CTA of 12/25/2021. THORACIC: The thoracic spinal canal appears widely patent, however there is focal distortion of the dorsal aspect of the cord at the level of T6-7 (series 11 image 8) with preservation of the CSF space ventrally. While this may be artifactual related to CSF pulsation, a small arachnoid cyst could also have this appearance. No associated cord signal abnormality to suggest cord edema or myelomalacia. Multilevel cervical spondylotic changes with multilevel degenerative disc disease, greatest within the mid thoracic spine. Mild wedging of multiple mid and lower thoracic vertebral bodies, most notably the T7-T9 vertebral bodies as well as T11, with mild exaggeration the normal thoracic kyphosis. Multilevel thoracic facet arthropathy without significant spinal canal narrowing. Bilateral lower lung opacities, better evaluated on multiple prior chest CTs. 1.8 cm well-circumscribed focus within the right upper mediastinum adjacent to the right posterolateral margin of the trachea (series 13 image 5) corresponds with a well-circumscribed soft tissue focus seen on CT of 12/25/2021. This has been present since at least chest CT of 12/31/2020. This may represent a reactive lymph node given clinical history of interstitial lung disease but is technically nonspecific. Procedure Note Jerald Miranda M.D. - 03/08/2024 EXAM: MR CERVICAL SPINE WITHOUT IV CONTRAST, MR THORACIC SPINE WITHOUT IVCONTRAST COMPARISON: CT of the cervical spine without IV contrast dated106/06/2022. FINDINGS: CERVICAL: As seen on comparison CT, there is multilevel degenerative discdisease with disc space height loss, greatest at C5-6 and C6-7posteriorly. Mild Modic type I endplate changes at C6-7 anteriorly.Ligamentum flavum redundancy at C3-4, C4-5, and C5-6 indents the dorsal thecal sac with overall mild associated spinalcanal narrowing. Diffuse disc bulge at C5-6 contributes to mild spinalcanal narrowing at this level. Diffuse disc bulge at C6-7 results in mildspinal canal narrowing. No high-grade cervical spinal canal narrowing. Combination of uncovertebral and facetjoint arthropathy results in multilevel neural foraminal narrowing whichis mild bilaterally at C3-4 and C4-5, moderate on the left and mild on theright at C5-6, as well as mild bilaterally at C6-7. Normal flexion appearance and signal characteristicsof the cervical cord. Bilateral atlantooccipital and atlantoaxial jointeffusions. Absence of the left vertebral artery flow-void throughout the neck withrelatively normal appearance of the flow void at the level of the [id number] corresponds to the proximal occlusion with distal reconstitutionseen on CTA of 12/25/2021. THORACIC: The thoracic spinal canal appears widely patent, however thereis focal distortion of the dorsal aspect of the cord at the level of T6-7(series 11 image 8) with preservation of the CSF space ventrally. Whilethis may be artifactual related to CSF pulsation, a small arachnoid cyst could also have this appearance. Noassociated cord signal abnormality to suggest cord edema or myelomalacia.Multilevel cervical spondylotic changes with multilevel degenerative discdisease, greatest within the mid thoracic spine. Mild wedging of multiple mid and lower thoracic vertebralbodies, most notably the T7-T9 vertebral bodies as well as T11, with mildexaggeration the normal thoracic kyphosis. Multilevel thoracic facetarthropathy without significant spinal canal narrowing. Bilateral lower lung opacities, better evaluated on multiple prior chestCTs. 1.8 cm well-circumscribed focus within the right upper mediastinumadjacent to the right posterolateral margin of the trachea (series 13image 5) corresponds with a well-circumscribed soft tissue focus seen on CT of 12/25/2021. This hasbeen present since at least chest CT of 12/31/2020. This may represent areactive lymph node given clinical history of interstitial lung diseasebut is technically nonspecific. IMPRESSION: 1. Multilevel cervical spondylotic changes, as described, withouthigh-grade spinal canal narrowing. 2. Multilevel neural foraminal narrowing, most prominent on the left atC5-6 where it is moderate. 3. Bilateral atlantoaxial and atlantooccipital joint effusions. 4. Focal distortion of the dorsal cord at the level of T6-7 which may beartifactual related to CSF pulsation, however an arachnoid cyst could havea similar appearance. The CSF space is preserved ventrally. No associatedcord signal abnormality. 5. Multilevel thoracic spondylotic changes, as described, withoutsignificant spinal canal or neural foraminal narrowing. us Gt SCHMIDT, P.A.-C., M.S. [facility] [place] PROC EDURES Final Result * (ABNORMAL) Comprehensive Metabolic Panel (02/04/2024 11:35 AM CDT) Potassium, S 4.8 3.6 - 5.2 mmol/L 02/04/2024 2:20 PM CDT DTL Sodium, S 141 135 - 145 mmol/L 02/04/2024 2:20 PM CDT DTL Chloride, S 107 98 - 107 mmol/L 02/04/2024 2:20 PM CDT DTL Bicarbonate, S 24 22 - 29 mmol/L 02/04/2024 2:20 PM CDT DTL Anion Gap 10 7 - 15 02/04/2024 2:20 PM CDT DTL BUN (Blood Urea Nitrogen), S 23 8 - 24 mg/dL 02/04/2024 2:20 PM CDT DTL Creatinine 1.15 0.74 - 1.35 mg/dL 02/04/2024 2:20 PM CDT DTL Estimated GFR (eGFR) 61 >=60 mL/min/BS A 02/04/2024 2:20 PM CDT DTL Comment: Estimated GFR calculated using the 2020 CKD_EPI creatinine equation. Calcium, Total, S 8.8 8.8 - 10.2 mg/dL 02/04/2024 2:20 PM CDT DTL Glucose, S 133 70 - 140 mg/dL 02/04/2024 2:20 PM CDT DTL Protein, Total, S 6.0(L) 6.3 - 7.9 g/dL 02/04/2024 2:20 PM CDT DTL Albumin, S 3.6 3.5 - 5.0 g/dL 02/04/2024 2:20 PM CDT DTL Aspartate Aminotransferase (AST), S 17 8 - 48 U/L 02/04/2024 2:20 PM CDT DTL Alkaline Phosphatase, S 98 40 - 129 U/L 02/04/2024 2:20 PM CDT DTL Alanine Aminotransferase (ALT), S 11 7 - 55 U/L 02/04/2024 2:20 PM CDT DTL Bilirubin, Total, S 0.3 0.0 - 1.2 mg/dL 02/04/2024 2:20 PM CDT DTL Blood (Blood, Venous) 02/04/2024 11:35 AM CDT 02/04/2024 12:55 PM CDT Gt SCHMIDT, P.A.-C., M.S. LAB BLOOD AD D-ON Final Result [facility] [address] [place] [address], [facility] DTL [facility] [address] [place] [address] * Eyes Spectralis OCT-Ophthalmology Image Exam (08/12/2023 12:00 AM CDT) Narrative IIMS - 08/12/2023 4:16 PM CDT This order has been created and auto-finalized to support the import of images acquired without order. The clinical documentation to support these images can be found on the encounter that produced images. us Provider Not In System IMG NON RAD IMAGING PROCE DURES Final Result IIMS NA from Last 3 Months or Most Recently Relevant to Health Maintenance Insurance MEDICARE [facility] Advance Directives For more information, please contact: [phone] * Full Code (Latest Code Status on File) Date Activated Date Inactivated Comments 01/10/2021 12:05 PM 01/11/2021 2:12 PM Question Answer Comments Full Code: Discussed Care Teams Business Analysis Analyst Relationship Specialty Start Date End Date Elsewhere, Pcp PCP - General Family Medicine 01/10/21
--- OUTSIDE RECORDS SUMMARY | 2024-05-22 12:17 | XMS_ITS | Clinical Summary ---
Author Organization [facility] Address [address] [place] [id number] Care Team Providers Care Lean Sensei Name Role Phone Elsewhere, Pcp Primary Care Provider Unavailabl e Source Comments Patient records contain information from all sites at [facility]. For routine questions regarding patient records, call [phone] during business hours, M-F 8:00 AM - 5:00 PM Central Time. Record requests for emergency care only can be directed to [phone] at any time.[facility] Allergies Active Allergy Reactions Criticality Noted Date [...] (07/03/2022): Added automatically from request for surgery [id number] Anatomical Narrow Angle Bilateral 06/11/2022 Atrial Fibrillation Unspecified 04/15/2022 Overview (04/15/2022): Added automatically from request for surgery [id number] Atherosclerotic Heart Diseas e [place] Coronary Artery With Other Forms Angina Pectoris [...] (01/02/2021): Added automatically from request for surgery [id number] Chronic Migraine With Aura, Not Intractable, Without Status Migrainosus 01/01/2021 Stenosis Aortic Valve Acquired 12/31/2020 Diabetes Mellitus Type 2 12/31/2020 Amaurosis Fugax 12/31/2020 Lung Interstitial Disease 12/31/2020 Anemia 12/07/2018 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 Cyst Arachnoid (Primary Dx) 03/30/2024 11:00 AM DOOR PULLER Comprehensive Visit Department of Spine in [place], [place] [address] [place] [id number] Crystal Whitten, WANDA, C.N.P., M.S.N. Cyst Arachnoid (Primary Dx); Pain Neck; Pain Back 03/09/2024 Orders Only Department of Cardiovascular Medicine in [place], [place] [address] [place] [phone] Little, ROXANA Cotter P.A.-C., M.S. Pain Neck (Primary Dx); Pain Back 03/08/2024 10:08 AM CDT - 03/08/2024 11:59 PM CDT Hospital Encounter Department of Radiology, [facility] in [place], [place] [address] [place] [address] Gt Ricks MPAS, P.A.-C., M.S. Pain Neck; Pain Back Discharge Disposition: Home or Self Care from Last 3 Months Immunizations Name Administration [...] week 12/31/2021 How often do you attend [facility] or anabaptism services? Patient declined 12/31/2021 Do you belong to any clubs o r organizations such as confucianism groups, unions, fraternal or athletic groups, or [...] and heating? Not hard at all 12/31/2021 [facility] of Occupat ional Health - Occupational Stress [...] PM CDT Legal Sex Male 8:35 AM DOOR PULLER Gender Identity Male 12/09/2017 1:17 PM CDT [...] 02/08/2024 9:30 AM CDT Plan of Treatment Health Maintenance Due Date Last Done Comments Diabetic Office Visit with Foot Exam 1935 Urine Albumin 1935 RSV vaccine - (32-36 weeks) or 60+ years (1 - 1-dose 75+ series) 11/14/2010 Hepatitis B Vaccines (2 of 3 - Risk 3-dose series) 11/07/2020 10/10/2020 Hemoglobin A1C 04/20/2024 10/20/2023, 1210/2022, 10/21/2022, Additional history exists Depression Screening (Annual PHQ-2) 05/18/2024 Fall Risk Screen (Annual) 05/18/2024 Dilated Eye Exam 08/11/2024 08/12/2023, , 08/07/2022, Additional history exists Creatinine Level (Kidney Function Test) 02/03/2025 02/04/2024, 11/06/2023, 04/22/2023, Additional history exists Potassium Level 02/03/2025 02/04/2024, 12/0 10/2022, 04/06/2023, Additional history exists Sodium Level 02/03/2025 02/04/2024, 12/0 10/2022, 04/06/2023, Additional history exists DTaP,Tdap,and Td Vaccines (2 - Td or Tdap) 06/12/2030 06/12/2020, 04/17/2009, 12/25/1998 Zoster Vaccines Completed 10/10/2020, 06/12/2020 Pneumococcal vaccine (50+ years) Completed 12/30/2021, 01/29/2010, 05/18/2004, Additional history exists COVID-19 Vaccine Completed 01/27/2024, 08/2023, 10/21/2022, Additional history exists Influenza Vaccine Completed 01/27/2024, , 02/17/2022, Additional history exists HPV Vaccines Aged Out No longer eligi ble based on patient's age to complete this topic IPV Vaccines Aged Out No longer eligi ble based on patient's age to complete this topic Medical Devices Implanted Type Area Metal Bonding Helper Device Identifier Shelf Expiration Date Model / Serial / Lot Stnt Synergy Xd De 2.50x32 - [id number] Implanted:Qty : 1 on 01/10/2021 by Jeffery Arroyo M.D., Ph.D. at [facility] Cardiac Stent N/A: Coronary [employer] 04/30/2022 [id number] / / [id number] Description:Mid LAD Stnt Synergy Xd De 3.00x32 - [id number] Implanted:Qty : 1 on 01/10/2021 by Jeffery Arroyo M.D., Ph.D. at [facility] Cardiac Stent N/A: Coronary [employer] 09/27/2022 [id number] / / [id number] Description:OM Stnt Synergy Xd De 3.50x12 - [id number] Implanted:Qty : 1 on 01/10/2021 by Jeffery Arroyo M.D., Ph.D. at [facility] Cardiac Stent N/A: Coronary [employer] 08/21/2022 [id number] / / [id number] Description:pLCx Lens Tcn Mnfcl Dcb00 +22.5d - [id number] - [id number] Implanted:Qty : 1 on 09/11/2022 by Rosina Manuel M.D. at [facility] [employer] Ocular Lens Left: Eye [employer] (Previously MERRY) 07/01/2025 [id number] / [id number] / Lens Tcn Mnfcl Dcb00 +23.0d - [id number] - [id number] Implanted:Qty : 1 on 10/28/2022 by Santosh Toth M.D., Ph.D. at [facility] Lawson[employer]onda Ocular Lens Eye [employer] (Previously MERRY) 07/29/2025 [id number] / [id number] / Procedures Procedure Name Priority Date/Time [...] Region Laterality Modality Thoracic Spine, Neuroradiolo gy [facility], Neuroradiology [facility], Neuroradiology [facility] N/A Magnetic Resonance Impressions 03/08/2024 2:51 PM [...] flow void at the level of the [id number] corresponds to the proximal occlusion with distal [...] neural foraminal narrowing. Gt SCHMIDT, P.A.-C., M.S. [facility] [place] PROC EDURES Final Result * MR Cervical Spine without IV Contrast (03/08/2024 11:18 AM CDT) Anatomical Region Laterality Modality Spine, Cervical Spine, Neuro radiology [facility], Neuroradiology ARZ [facility], Neuroradiology FLA [facility] N/A Magneti c Resonance Impressions 03/08/2024 2:51 [...] flow void at the level of the [id number] corresponds to the proximal occlusion with distal [...] neural foraminal narrowing. Gt SCHMIDT, P.A.-C., M.S. [facility] [place] PROC EDURES Final Result * (ABNORMAL) [...] M.S. LAB BLOOD AD D-ON Final Result [facility] [address] [place] [address], [facility] DTL [facility] [address] [place] [address] * Eyes Spectralis OCT-Ophthalmology Image Exam (08/12/2023 [...] Recently Relevant to Health Maintenance Insurance MEDICARE [facility] Advance Directives For more information, please contact: [phone] * Full Code (Latest Code Status on File) Date Activated Date Inactivated Comments 01/10/2021 12:05 PM 01/11/2021 2:12 PM Question Answer Comments Full Code: Discussed Care Teams Lean Sensei Relationship Specialty Start Date End Date Elsewhere, Pcp PCP - General Family Medicine 01/10/21
--- OUTSIDE RECORDS SUMMARY | 2024-05-22 12:17 | XMS_ITS | Clinical Summary ---
Author Organization [facility] Address [address] [address] Phone Care Team Providers Care Architect Intern Name Role Phone Unavailable Primary Care Provider Unavailabl e Allergies Active Allergy Reactions Criticality Noted Date Comments Amlodipine Other,Unknown Low 08/06/2020 Leg swelling on 5mg Leg swelling on 5mg Metformin Diarrhea Low 07/03/2020 Medications empagliflozin (Jardiance) 25 MG Tablet Take 25 [...] Mesenteric angiogram; Surgeon: Yair Jones MD; Location: [facility] INTERVENTIONAL RADIOLOGY COLONOSCOPY 03/23/2022 Colon/N/A No repeat due to age. Medical devices from this surgery are in the Medical Devices section. Social History Tobacco Use Types Packs/Day Years Used Date Smoking Tobacco: Former Cigarettes 0.5 30 1 953 - 1982 Smokeless Tobacco: Never Tobacco Cessation:Counseling Given: No Sex and Gender Information Value Date Recorded Sex Assigned at Male 03/22/2022 3:33 PM CDT Legal Sex Male 11:50 AM CDT Gender Identity Male 03/22/2022 3:33 PM CDT Sexual Orientation Not on file Obstetrics History Last Filed Vital Signs Vital Sign Reading Time Taken Comments Blood Pressure 162/49 03/25/2022 4:27 PM AUXILIARY EQUIPMENT OPERATOR Pulse 74 03/25/2022 4:27 PM AUXILIARY EQUIPMENT OPERATOR Temperature 36.6 C (97.8 F) 03/25/2022 4:27 PM AUXILIARY EQUIPMENT OPERATOR Respiratory Rate 20 03/25/2022 4:27 PM AUXILIARY EQUIPMENT OPERATOR Oxygen Saturation 95% 03/25/2022 4:27 PM AUXILIARY EQUIPMENT OPERATOR Inhaled Oxygen Concentration - - Weight 91.5 kg (201 lb 11.5 oz) 03/25/2022 6:00 AM AUXILIARY EQUIPMENT OPERATOR Height 174 cm (5' 8.5) 03/22/2022 2:30 PM CDT Body Mass Index 30.23 03/22/2022 2:30 PM CDT Plan of Treatment Health Maintenance Due Date Last Done Comments MEDICARE AWV 1935 PERTUSSIS (Standing Order) 11/14/1954 TETANUS (Standing Order) 11/14/1954 Shingrix (Zoster recombinant ) vaccine (Standing Order) (1 of 2) 11/14/1985 Pneumococcal Vaccine: 65+ yr s (Standing Order) (1 of 1 - PCV) 11/14/2000 RSV Vaccination (60+ yrs) (Abrysvo/Arexvy) (1 - 1-dose 75+ series) 11/14/2010 COVID-19 Vaccine (2023-2 5 season) 2024 Influenza Vaccine Seasonal (Standing Order) (#1) 2024 HPV Vaccine (Standing Order) Aged Out No longer eligible based on patient's age to complete this topic Hepatitis B Vaccine (Standin g Order) Aged Out No longer eligible b ased on patient's age to complete this topic Medical Devices Implanted Type Area [employer] Pilot Device Identifier Shelf Expiration Date Model / Serial / Lot Clip Hemostasis Instinct Plus Disp [id number] - [id number] Implanted:Qty: 2 on 03/23/2022 by Anjana Weeks DO at [facility] N/A: Davi CHIRINOS 01/16/2025 [id number] / N/A / [id number] Insurance [employer] [facility] MEDICARE PART A & B Advance Directives For more information, please contact: [phone] * Full Code (Latest Code Status on File) Date Activated Date Inactivated Comments 03/22/2022 2:44 PM 03/25/2022 9:43 PM
[2024-05-22 12:32] LABS: Basophils Percent Auto 0.1 % (0.0-3.0); Eosinophils Percent Auto 0.5 % (0.0-7.0); Hematocrit 34.5 % (37.0-53.0); Hemoglobin* 10.7 gm/dL (13.5-17.5); Immature Granulocytes Pct Auto 0.1 %; Lymphocytes Percent Auto 62.4 % (20-44); Mean Corpuscular HGB Conc 31 gm/dL (32-36); Mean Corpuscular Hemoglobin 28 pg (26-34); Mean Corpuscular Volume 91 fL (80-100); Monocytes Percent Auto 3.8 % (0.0-11.0); Neutrophils Percent Auto 33.1 % (42.0-72.0); Platelet Count* 184 K/uL (140-440); RDW Coefficient of Variation % 15.4 % (11.5-15.5); Red Blood Count 3.79 m/uL (4.30-5.90); White Blood Count* 20.67 K/uL (4.50-11.00)
[2024-05-22 12:35] LABS: Slide Review Reflex No
[2024-05-22 12:40] LABS: Troponin, Point-of-Care* 0.02 ng/ml (0.01-0.04)
[2024-05-22 12:50] LABS: PCR FLU A Negative PCR FLU A (Negative); PCR FLU B Negative PCR FLU B (Negative); PCR RSV Negative PCR RSV (Negative); SARS PCR* Negative SARS-CoV-2 (Negative)
[2024-05-22 12:50] LABS: Chloride* 108 mmol/L (96-114); Potassium* 4.5 mmol/L (3.6-5.1); Sodium* 139 mmol/L (135-149)
[2024-05-22 12:53] LABS: Anion Gap 6 mEq/L (7-15); Blood Urea Nitrogen* 29 mg/dL (7-30); Carbon Dioxide* 25 mmol/L (20-32); Est. Creatinine Clearance* 47.74; Estimated Glomerular Filt Rate 72 ml/min; Glucose* 174 mg/dL (60-115)
[2024-05-22 12:54] LABS: Magnesium* 2.3 mg/dL (1.5-2.6)
== END 2024-05-22 14:37 | disposition home or self-care (01) ==
PROVIDERS: Emergency Provider Student in an Organized Health Care Education/Training Program; PCP Family Medicine
DX: R00.2 Palpitations (principal)
CPT/HCPCS: 36415; 80048; 83735; 84443; 84484; 85025; 87631; 93005; 99284

== ENCOUNTER 2024-07-18 21:51 | Outpatient (CLI) | payer MEDICARE, BC, SELFPAY | END 2024-07-18 21:52 | disposition home or self-care (01) | LOC: AMB 08-01 14:22 | PROVIDERS: PCP Family Medicine; Visit Provider Emergency Medicine Emergency Medical Services | DX: S79.911A Unspecified injury of right hip, initial encounter (principal); W18.39XA Other fall on same level, initial encounter; Y92.008 Other place in unspecified non-institutional (private) residence as the place of occurrence of the external cause | CPT/HCPCS: A0425; A0429 ==

== ENCOUNTER 2024-07-18 22:18 | Inpatient (IN) | payer MEDICARE, BC, SELFPAY ==
[2024-07-18 22:25] VITALS: BP 161/80; PULSE 93; RESP 18; TEMP 36.7; O2SAT 92; BMI 26.6
--- NOTE | 2024-07-18 22:50 | ED.FALL ---
HPI - Fall General Chief Complaint: Fall/Minor Trauma Stated Complaint: Fall Time Seen by Provider: 07/18/24 22:40 History of Present Illness HPI Narrative: This 88-year-old male comes in with an injury to his right hip from a fall that occurred just prior to arrival. He was doing laundry and fell injuring his right hip. He did not have loss of consciousness. He was unable to get up for about an hour. He lives at home with his daughter. He does take Eliquis for irregular heartbeat. Related Data Home Medications ?Medication ?Instructions ?Recorded ?Confirmed atorvastatin 20 mg tablet 20 mg PO DAILY 03/26/22 05/05/24 carvedilol 25 mg tablet 25 mg PO BID 03/26/22 05/05/24 omeprazole 20 mg capsule,delayed 40 mg PO HS 03/26/22 05/05/24 release spironolactone 25 mg tablet 25 mg PO DAILY 03/26/22 05/05/24 valsartan 320 mg tablet 320 mg PO HS 03/26/22 05/05/24 apixaban 2.5 mg tablet (Eliquis) 2.5 mg PO BID 08/27/22 05/05/24 ascorbic acid (vitamin C) 500 mg 500 mg PO DAILY 08/27/22 05/05/24 tablet aspirin 81 mg chewable tablet 1 tab PO DAILY 08/27/22 05/05/24 empagliflozin 25 mg tablet 25 mg PO DAILY 08/27/22 05/05/24 (Jardiance) vitamin E mixed 400 unit capsule 400 unit PO DAILY 08/27/22 05/05/24 cetirizine 10 mg tablet 10 mg PO DAILY 09/21/23 05/05/24 Previous Rx's ?Medication ?Instructions ?Recorded benzonatate 100 mg capsule 100 mg PO TID PRN cough #30 caps 09/22/23 doxycycline hyclate 100 mg capsule 100 mg PO BID 7 days #14 caps 09/22/23 azithromycin 250 mg tablet See Rx Instructions PO .COMPLEX #6 05/05/24 tabs Allergies Allergy/AdvReac Type Severity Reaction Status Date / Time metformin AdvReac Intermediate Diarrhea Verified 07/18/24 22:26 Review of Systems Status of ROS: Reports: 10 or more systems reviewed and unremarkable except as noted in History and below Narrative: Constitutional: No fevers, no weight gain or loss. Eyes: No discharge. No vision changes. HENT: No congestion, no sore throat, no ear pain. Cardiovascular: No chest pain, no palpitations. Respiratory: No shortness of breath, no wheezes, no cough. Gastrointestinal: No abdominal pain, no vomiting, no diarrhea. Genitourinary: No dysuria, no hematuria. Musculoskeletal: Pain in the right hip and low back. Skin: No rashes, no pruritis. Neurological: No dizziness, weakness, sensory change, speech change. Endo/Heme/Allergies: No bruising or bleeding. No polydipsia. Pysch: no suicidality, no anxiety, no insomnia. All other systems reviewed and are negative. [facility] Medical History Pneumonia ?J18.9 - Pneumonia, unspecified organism (ICD-10) Elevated troponin ?R79.89 - Other specified abnormal findings of blood chemistry (ICD-10) COVID ?U07.1 - COVID-19 (ICD-10) Physical deconditioning ?R53.81 - Other malaise (ICD-10) Colitis ?K52.9 - Noninfective gastroenteritis and colitis, unspecified (ICD-10) CLL (chronic lymphocytic leukemia) ?C91.10 - Chronic lymphocytic leukemia of B-cell type not having achieved remission (ICD-10) Aortic stenosis, severe ?I35.0 - Nonrheumatic aortic (valve) stenosis (ICD-10) CAD (coronary artery disease) ?I25.10 - Atherosclerotic heart disease of jena coronary artery without angina pectoris (ICD-10) Atrial fibrillation ?I48.91 - Unspecified atrial fibrillation (ICD-10) Diverticulosis ?K57.90 - Diverticulosis of intestine, part unspecified, without perforation or abscess without bleeding (ICD-10) Blood clot of artery under arm ?I74.2 - Embolism and thrombosis of arteries of the upper extremities (ICD-10) Diabetic retinopathy ?E11.319 - Type 2 diabetes mellitus with unspecified diabetic retinopathy without macular edema (ICD-10) Interstitial lung disease ?J84.9 - Interstitial pulmonary disease, unspecified (ICD-10) ROSA ISELA (obstructive sleep apnea) ?G47.33 - Obstructive sleep apnea (adult) (pediatric) (ICD-10) Hyperlipidemia ?E78.5 - Hyperlipidemia, unspecified (ICD-10) Type 2 diabetes mellitus ?E11.9 - Type 2 diabetes mellitus without complications (ICD-10) GERD (gastroesophageal reflux disease) ?K21.9 - Gastro-esophageal reflux disease without esophagitis (ICD-10) Essential hypertension ?I10 - Essential (primary) hypertension (ICD-10) 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 - Dissection of other specified artery (ICD-10) Ileitis ?K52.9 - Noninfective gastroenteritis and colitis, unspecified (ICD-10) Surgical History Patella fracture ?S82.009A - Unspecified fracture of unspecified patella, initial encounter for closed fracture (ICD-10) History of atherectomy ?Z98.890 - Other specified postprocedural states (ICD-10) H/O colectomy ?Z90.49 - Acquired absence of other specified parts of digestive tract (ICD-10) History of laparoscopic cholecystectomy ?Z90.49 - Acquired absence of other specified parts of digestive tract (ICD-10) Social History What is your current living situation?: I presently have a place to live Problems where you live: no known problems Problems where you live details: no know problems In the past 12 months, utilities in danger of being shut off: no In past 12 months, lack of transportation kept you from medical appts, meetings, work, or getting things needed for daily living: no In the past 12 mos, have been you worried that your food would run out before you had money to buy more?: never true In the past 12 mos, the food you bought just didn't last and you didn't have money to buy more?: never true Highest level of school completed/degree received: high school graduate Smoking Status: Former smoker What tobacco products do you use: cigarettes Smoking quit date/years: >15 years ago Do you use any of these nicotine containing products: None Second hand tobacco smoke exposure: Yes How often do you have a drink containing alcohol: never How often do you have six or more drinks on one occasion: Never AUDIT-C Alcohol total score: 0 Non-prescribed substance use: denies use Caffeine: Yes (Tea) How often does anyone, including family, friends and others, physically hurt you: never How often does anyone, including family, friends and others, insult or talk down to you: never How often does anyone, including family, friends and others, threaten you with harm: never How often does anyone, including family, friends and others, scream or curse at you: never service: Yes Exam Narrative: Exam Narrative: Constitutional: Well-developed, well-nourished, no acute distress. HEENT: Normocephalic, atraumatic. Neck: Normal range of motion. Nontender. Supple. Heart: Irregular. No murmurs. Normal rate. Intact distal pulses. Lungs: Clear to auscultation. No chest discomfort. No wheezes, rhonchi, or rales. Abdomen: Normal bowel sounds. Nontender. No rebound tenderness. Genitalia: Deferred. Back: No midline tenderness. Normal range of motion. Extremities: Unable to raise the right leg from the bed. Right leg is slightly shortened and externally rotated. Pain in the right hip region. No pain when stressing the pelvis. Skin: Intact. No rash. Warm. No erythema or pallor. Neurologic: No altered sensation. No weakness. Alert and oriented. Psychiatric: No suicidality. No anxiety or depression. No insomnia. Nursing notes and vitals signs are reviewed. Const: Vital Signs, click to edit/add: Vital Signs - 24 hr 07/18/24 22:25 Temperature 98.1 F Pulse Rate [Pulse Oximeter] 93 Respiratory Rate 18 Blood Pressure [Le ft Upper Arm] 161/80 H Pulse Oximetry 92 Oxygen Delivery Me thod Room Air Course Vital Signs Vital signs: Initial Vital Signs Temperature 98.1 F 07/18/24 22:25 Temperature Source Temporal Artery Scan 07/18/24 22:25 Pulse Rate 93 07/18/24 22:25 Respiratory Rate 18 07/18/24 22:25 Blood Pressure 161/80 H 07/18/24 22:25 Blood Pressure Mean 107 H 07/18/24 22:25 Blood Pressure Position Sitting 07/18/24 22:25 Pulse Oximetry 92 07/18/24 22:25 Oxygen Delivery Method Room Air 07/18/24 22:25 Vital Signs Temperature 98.1 F 07/18/24 22:25 Pulse Rate 93 07/18/24 22:25 Respiratory Rate 18 07/18/24 22:25 Blood Pressure 161/80 H 07/18/24 22:25 Pulse Oximetry 92 07/18/24 22:25 Oxygen Delivery Method Room Air 07/18/24 22:25 Temperature 98.1 F 07/18/24 22:25 Pulse Rate 93 07/18/24 22:25 Respiratory Rate 18 07/18/24 22:25 Blood Pressure 161/80 H 07/18/24 22:25 Pulse Oximetry 92 07/18/24 22:25 Oxygen Delivery Method Room Air 07/18/24 22:25 MDM - Fall MDM Narrative Medical decision making narrative: This patient fell and comes in for injuries to his right hip. His symptoms are suspicious for hip fracture but x-ray images did not show obvious fracture. I did order a CT scan of his hip and also images of his low back to further evaluate this as the patient is not able to raise his leg up and is not able to ambulate like he would normally do. I did speak with the orthopedic physician's golf player assistant saxophone player to indicate a likely hip fracture. The patient has an IV in place and did receive Dilaudid 0.3 mg intravenously. Lab results returned with reassuring findings. He does have CLL and his white count is elevated to around 34,000. This is not new for him. EKG shows sinus rhythm with frequent premature ventricular contractions. The patient does take Eliquis. The additional imaging results are pending at the end of my shift and the oncoming overnight ER physician will look after those results and the patient will be able to be admitted for ongoing management. Lab Data Labs: Lab Results 07/18/24 Range/Units 23:20 WBC 34.48 H* (4.50-11.00) K/uL RBC 3.90 L (4.30-5.90) m/uL Hgb 11.1 L (13.5-17.5) gm/dL Hct 35.4 L (37.0-53.0) % MCV 91 (80-100) fL MCH 29 (26-34) pg MCHC 31 L (32-36) gm/dL RDW Coeff of Ravi 15.9 H (11.5-15.5) % Plt Count 198 (140-440) K/uL Neut % (Auto) 34.1 L (42.0-72.0) % Lymph % (Auto) 62.7 H (20-44) % Haskell % (Auto) 2.3 (0.0-11.0) % Eos % (Auto) 0.4 (0.0-7.0) % Baso % (Auto) 0.1 (0.0-3.0) % Neut # (Auto) 11.80 H (1.7-7.0) K/uL Lymph # (Auto) 21.60 H (0.90-2.90) K/uL Haskell # (Auto) 0.80 (0.00-0.90) K/UL Eos # (Auto) 0.10 (0.00-0.50) K/uL Baso # (Auto) 0.00 (0.00-0.30) K/uL Abs Immat Gran (auto) 0.10 (0.00-0.30) K/uL Imm/Tot Granulo (auto) 0.4 % Diff Slide Review Acceptable Review (Acceptable) Sodium 136 (135-149) mmol/L Potassium 4.5 (3.6-5.1) mmol/L Chloride 102 (96-114) mmol/L Carbon Dioxide 26 (20-32) mmol/L Anion Gap 8 (7-15) mEq/L BUN 31 H (7-30) mg/dL Creatinine 1.1 (0.5-1.5) mg/dL Estimated Creat Clear 43.40 Estimated GFR 65 ml/min Glucose 190 H (60-115) mg/dL Calcium 8.9 (8.4-10.6) mg/dL Total Creatine Kinase 75 (54-186) U/L ECG Data Attestation: I personally reviewed and interpreted this ECG as follows: Interpretation: Sinus rhythm with 1st degree AV block. Frequent premature ventricular complexes. Rate is 93 beats per minute. There are no specific ST or T-wave abnormalities. Discharge Plan Discharge Clinical Impression: Hip injury, Chronic lymphocytic leukemia Patient Disposition: Admitted As Observation Condition: Unchanged Prescriptions: No Action azithromycin 250 mg tablet See Rx Instructions PO .COMPLEX Qty: 6 0RF Rx Instructions: For 250 mg dose pack: take 500 mg today (day 1), then 250 mg for 4 days (days 2-5) PO cetirizine 10 mg tablet 10 mg PO DAILY benzonatate 100 mg Capsule 100 mg PO TID PRN (Reason: cough) Qty: 30 2RF doxycycline hyclate 100 mg capsule 100 mg PO BID 7 Days Qty: 14 0RF carvedilol 25 mg tablet 25 mg PO BID atorvastatin 20 mg tablet 20 mg PO DAILY spironolactone 25 mg tablet 25 mg PO DAILY valsartan 320 mg tablet 320 mg PO HS omeprazole 20 mg capsule,delayed release(DR/EC) 40 mg PO HS Patient Comments: TAKE 1 CAPSULE BY MOUTH TWICE DAILY aspirin 81 mg tablet,chewable 1 tab PO DAILY Rx Instructions: 2 x per week on Thu and for migraine prophylaxis Eliquis 2.5 mg tablet 2.5 mg PO BID Jardiance 25 mg tablet 25 mg PO DAILY ascorbic acid (vitamin C) 500 mg tablet 500 mg PO DAILY vitamin E mixed 400 unit capsule 400 unit PO DAILY Follow Up/Referrals: Luiz Bullock MD [Primary Care Provider] -
[2024-07-18 23:27] LABS: Basophils Percent Auto 0.1 % (0.0-3.0); Eosinophils Percent Auto 0.4 % (0.0-7.0); Hematocrit 35.4 % (37.0-53.0); Hemoglobin* 11.1 gm/dL (13.5-17.5); Immature Granulocytes Pct Auto 0.4 %; Lymphocytes Percent Auto 62.7 % (20-44); Mean Corpuscular HGB Conc 31 gm/dL (32-36); Mean Corpuscular Hemoglobin 29 pg (26-34); Mean Corpuscular Volume 91 fL (80-100); Monocytes Percent Auto 2.3 % (0.0-11.0); Neutrophils Percent Auto 34.1 % (42.0-72.0); Platelet Count* 198 K/uL (140-440); RDW Coefficient of Variation % 15.9 % (11.5-15.5)
[2024-07-18 23:31] LABS: White Blood Count* 34.48 K/uL (4.50-11.00)
--- OUTSIDE RECORDS SUMMARY | 2024-07-18 23:37 | XMS_ITS | Encounter Summary ---
Author Organization [facility] Address [address] [place] [address] Care Team Providers Care Travel Coordinator Name Role Phone Elsewhere, Pcp Primary Care Provider Unavailabl e Encounter Details Date Type Department Care Team (Latest Contact Info) Description 07/11/2024 Virtual Visit Department of Cardiovascular Medicine in [place], [place] [address] [place] [address] Gt Ricks, ROXANA, P.A.-C., M.S. [address] [place] [address] Stenosis Aortic Valve Acquired (Primary Dx); Diabetes Mellitus Type 2 (HCC); Atherosclerotic Heart Disease [place] Coronary Artery With Other Forms Angina Pectoris (Angina Equivalent) (HCC); Coronary Stent Status Post; Hypertension Essential Primary; Beat Premature Ventricular Social History Tobacco Use Types Packs/Day Years [...] How often do you attend chur or mormon services? Patient declined 12/31/2021 Do you belong to any clubs o r organizations such as gnosticism groups, unions, fraModern Feed or athletic groups, or school groups? No [...] and heating? Not hard at all 12/31/2021 [facility] Occupat ional Health - [...] or slept in a long-term (including now)? No 12/31/2021 Nutrition Answer Date [...] PM CDT Legal Sex Male 8:35 AM CONSTRUCTION STONEMASON Gender Identity Male 12/09/2017 1:17 PM CDT Sexual Orientation Straight 12/09/2017 1: 17 PM CDT documented as of this encounter Progress Notes * Gt Ricks MPAS, P.A.-C., M.S. - 07/11/2024 3:27 PM CST Spoke to the patient via telephone to discuss the results of his fat aspirate and cardiac MRI. His fat aspirate was negative for amyloidosis. Discuss the results of his cardiac MRI with Dr. Robert and Dr. Robert states that this mainly shows cardiac fibrosis and to continue current medication regimen and manage fluid retention. Patient is currently exercising on his treadmill 3-5 days per week for 20minutes at a time. He continues to reduce his sodium intake and has noticed a decrease in his episodes of ventricular bigeminy. He monitors this by watching his heart rate on his pulse oximeter and has not noticed heart rates in the 30s. With his decrease in sodium intake, he is now experiencing lower blood pressures in the morning following the intake of his medications. By the afternoon, his systolic blood pressure comes back up to 110-130 mmHg. He is not sure what his blood pressure is in the morning prior to his medications. After his medications, his systolic blood pressure is in the 90sto 100s and it has been seen in the 80s. Spironolactone was prescribed by Dr. Robert in 2020 at 12.5 mg and in the chart we have it at 12.5 mg, but the patient reports he is taking 25 mg. His primary care provider increased this and he is not sure when this occurred. This is likely increased due to his fluid retention from increased sodium intake. Recommend decreasing to 12.5 mg to help improve hislower blood pressures following his morning medications. If his morning blood pressures are initially low prior to medications, we could consider lowering his valsartan that he takes in the evenings.Patient will continue to monitor his blood pressure and reach out to me if he continues to experience low blood pressures despite a decrease in his spironolactone. Recommend continued exercise and red uce sodium intake. Recommend a follow up visit in 6 months with cardiac testing prior to visit or sooner if patient has new or worsening symptoms. We will complete an echocardiogram at that time to evaluate his aortic stenosis. Patient agrees with this plan and all questions were answered. ROXANA Callaway, Tiffany., M.S. TRUCTION STONEMASON TRUCTION STONEMASON documented in this encounter Plan of Treatment Not on file documented as of this encounter Visit Diagnoses Diagnosis Stenosis Aortic Valve Acquired- Primary Diabetes Mellitus Type 2 (HCC) Atherosclerotic Heart Disease [place] Coronary Artery With Other Forms Angina Pectoris (Angina Equivalent) ([facility]) Coronary Stent Status Post Hypertension Essential Primary Beat Premature Ventricular documented in this encounter Care Teams Travel Coordinator Relationship Specialty Start Date End Date Elsewhere, Pcp PCP - General Family Medicine 01/10/21 documented as of this encounter
--- OUTSIDE RECORDS SUMMARY | 2024-07-18 23:37 | XMS_ITS | Encounter Summary ---
Author Organization [facility] Address [address] [place] [address] Care Team Providers Care Salesperson Terrazzo Tiles Name Role Phone Elsewhere, Pcp Primary Care Provider Unavailabl e Reason for Referral * Outpatient (Routine) - Authorized Specialty Diagnoses / Procedures Referred By Contac t Referred To Contact Diagnoses Stenosis Aortic Valve Acquired Coronary Stent Status Post Diabetes Mellitus Type 2 (HCC) 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) (HCC) Hypertension Essential Primary Atrial Fibrillation Unspecified (HCC) Dyspnea On Exertion Procedures NM Cardiac Amyloid SPECT CT Gt Ricks MPAS, PQuique.Nani., M.S. [address] [place] [phone] Phone: tel: fax: [facility] Referral ID Status Reason Start Date Expiration Date V isits Requested Visits Authorized [id number] Authorized 02/08/2024 02/07/2025 8 8 ING AND TRIM INSTALLER Reason for Visit * Outpatient (Routine) - Authorized Specialty Diagnoses / Procedures Referred By Contac t Referred To Contact Diagnoses Stenosis Aortic Valve Acquired Coronary Stent Status Post Diabetes Mellitus Type 2 (HCC) 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) (HCC) Hypertension Essential Primary Atrial Fibrillation Unspecified (HCC) Dyspnea On Exertion Procedures NM Cardiac Amyloid SPECT CT Gt Ricks MPAS, Tiffany., M.S. [address] [place] [phone] Phone: tel: fax: [facility] Referral ID Status Reason Start Date Expiration Date V isits Requested Visits Authorized [id number] Authorized 02/08/2024 02/07/2025 8 8 Encounter Details Date Type Department Care Team (Latest Contact Info) Description 06/09/2024 10:36 AM MOLDING AND TRIM INSTALLER - 06/09/2024 1:32 PM [facility] Hospital Encounter Department of Radiology, [facility] in [place], [place] [address] [place] [address] Gt Ricks MPAS, P.A.-C., M.S. [address] [place] [address] Stenosis Aortic Valve Acquired; Coronary Stent Status Post; Diabetes Mellitus Type 2 ([facility]); 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) ([facility]); Hypertension Essential Primary; Atrial Fibrillation Unspecified ([facility]) Discharge Disposition: Home or Self Care Social History Tobacco Use Types Packs/Day Years [...] often do you attend chur ch or yazdanism services? Patient declined 12/31/2021 Do you belong to any clubs o r organizations such as restorationist groups, unions, fraternal [...] hard at all 12/31/2021 [facility] [place] of Occupat ional Health - Occupational Stress [...] or slept in a fci (including now)? No 12/31/2021 Nutrition Answer Date [...] PM CDT Legal Sex Male 8:35 AM MOLDING AND TRIM INSTALLER Gender Identity Male 12/09/2017 1:17 PM CDT Sexual Orientation Straight 12/09/2017 1: 17 PM CDT documented as of this encounter Medications at Time of Discharge Accu-Chek Guide Glucose Meter misc See Admin Instructions. 10/30/2021 Accu-Chek Softclix Lancets lancets daily. for testing 10/30/2021 albuterol 90 mcg/actuation inhaler Inhale 1-2 puffs every 4 (four) hours as needed. 09/25/2023 ascorbic acid, vitamin C, (VITAMIN C) 500 mg tablet Take 1 tablet by mouth daily. 10/01/2011 atorvastatin (LIPITOR) 20 mg tablet Take 20 mg by mouth at bedtime. 06/08/2020 blood sugar diagnostic (Truetrack Test) strips TEST 1 TIME PER DAY 09/13/2021 carvediloL (COREG) 25 mg tablet Take 25 mg by mouth 2 (two) times a day with meals. 03/06/2020 DME CPAP DME Order doxycycline hyclate (VIBRA-TABS) 100 mg tablet Take 100 mg by mouth as needed (gout). 02/24/2023 Eliquis 2.5 mg tablet 2.5 mg 2 (two) times a day. 07/18/2022 empagliflozin (JARDIANCE) 25 mg tablet Take by mouth. 06/15/2022 fluticasone propionate (FLONASE) 50 mcg/actuation nasal spray Administer 2 sprays into nostril(s) as needed. 03/08/2021 ofloxacin (OCUFLOX) 0.3 % ophthalmic solution Use one drop in the operated eye four times daily for 7 days. Start the evening before surgery. 5 mL 10/20/2022 omeprazole (PriLOSEC) [address] capsule Take 40 mg by mouth every morning before breakfast. 06/27/2021 peg 400-propylene glycol (SYSTANE) 0.4-0.3 % ophthalmic solution Administer 1 drop into both eyes 2 (two) times a day as needed for dry eyes. silver sulfADIAZINE (SILVADENE, SSD) 1 % cream Apply 1 application topically as needed. 04/15/2019 triamcinolone (KENALOG) 0.1 % cream Apply 1 application topically as needed. 09/18/2020 valsartan (DIOVAN) 320 mg tablet Take 320 mg by mouth daily. 02/21/2020 vitamin E 180 mg (400 Unit) capsule Take 400 Units by mouth daily. vitamin E 400 unit capsule Take 1 capsule by mouth daily. 10/01/2011 documented as of this encounter Plan of Treatment Not on file documented as of this encounter Procedures Procedure Name Priority Date/Time Associated Diagnosis Comments NM CARDIAC AMYLOID PYP SPECT CT RAD - Routine (most inpatients and all outpatients) 06/09/2024 2:55 PM MOLDING AND TRIM INSTALLER Stenosis Aortic Valve Acquired Coronary Stent Status Post Diabetes Mellitus Type 2 (HCC) 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) (HCC) Hypertension Essential Primary Atrial Fibrillation Unspecified (HCC) documented in this encounter Results * NM Cardiac Amyloid SPECT CT (06/09/2024 2:55 PM MOLDING AND TRIM INSTALLER) 06/09/2024 1:33 PM MOLDING AND TRIM INSTALLER Narrative [facility] CV MERGE - 06/09/2024 3:09 PM MOLDING AND TRIM INSTALLER See PDF For Result Procedure Note Antony Pimentel M.D., Ph.D. - 06/09/2024 See PDF For Result Gt SCHMIDT P.A.-C., M.S. [facility] Final Result CV MERGE NA documented in this encounter Visit Diagnoses Diagnosis Stenosis Aortic Valve Acquired Coronary Stent Status Post Diabetes Mellitus Type 2 (HCC) 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) (HCC) Hypertension Essential Primary Atrial Fibrillation Unspecified (HCC) documented in this encounter Administered Medications Inactive Administered Medications - up to 3 most recent administrations Medication Order MAR Action Action Date Dose Rate Site technetium Tc 99m pyrophosphate injection (Tc-99m Technescan PYP) 8.1-24.2 millicurie, intravenous, Once, On [place] 06/09/24 at 1100, For 1 dose, Imaging Protocol Orders Given 06/09/2024 10:44 AM MOLDING AND TRIM INSTALLER 21.4 millicuries Right Antecubital documented in this encounter Care Teams Salesperson Terrazzo Tiles Relationship Specialty Start Date End Date Elsewhere, Pcp PCP - General Family Medicine 01/10/21 documented as of this encounter
--- OUTSIDE RECORDS SUMMARY | 2024-07-18 23:37 | XMS_ITS | Encounter Summary ---
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 [address] [place] [phone] Phone: tel: fax: [facility] Referral ID Status Reason Start Date Expiration Date Visits Re quested Visits Authorized [id number] Closed 06/17/2024 09/17/2025 1 1 Encounter Details Date Type Department Care Team (Late st Contact Info) Description 07/01/2024 1:00 PM CREATIVE SERVICES SPECIALIST Infusion Department of Infusion Therapy in [place], [place] [address] [place] [phone] Gt Ricks MPAS, P.Aditya.-C., M.S. 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 Patient declined 12/31/2021 Do you belong to any clubs o r organizations such as amish groups, unions, fraternal or athletic groups, or [...] and heating? Not hard at all 12/31/2021 [facility] [place] of Occupat ional Health - Occupational Stress [...] or slept in a residential (including now)? No 12/31/2021 Nutrition Answer Date [...] PM CDT Legal Sex Male 8:35 AM CREATIVE SERVICES SPECIALIST Gender Identity Male 12/09/2017 1:17 PM CDT Sexual Orientation Straight 12/09/2017 1: 17 PM CDT documented as of this encounter Procedure Notes * Luiz Giraldo R.N. 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 Authorized by: Gt Ricks MPAS, P.A.-C., M.S. Care team members present 1. Luiz Giraldo R.N. PROCEDURE DETAILS Procedure: Fat aspirate Fat aspirate Location: Right abdominal wall and left abdominal wall Needle size (gauge): 18 Aspirate volume (mL): 0.5 CONSENT Consent obtained: written (Risks, benefits and alternatives were discussed and a written Informed Consent was obtained. Please see Informed Consent form for further details.) UNIVERSAL PROTOCOL All relevant documentation and testing were reviewed and available. All required blood products, implants, devices and or special equipment were made available as applicable. Pre-procedure verification was conducted and the correct site was marked if required. A fire risk and smoke assessment were done as applicable. The procedural time-out to verify correct patient, correct side/site, and procedure was conducted prior to performing the procedure and confirmed in a procedural pause. PRE-PROCEDURE DETAILS Appropriate hand hygiene, gown, cap, mask, protective eyewear, sterile gloves, skin preparation, sterile drape, and strict aseptic technique were utilized as applicable for the procedure.: yes Site preparation: alcohol SEDATION / ANESTHESIA Anesthesia method: local infiltration Local infiltrate type: lidocaine POST-PROCEDURE DETAILS Procedure completed successfully: yes Procedure tolorated: Well Post procedure pain scale: 0/10 Complications: no apparent complications Post-procedure instructions: Post-procedure activity instructions provided COMMENTS 0.5 mls 1% Lidocaine given SQ per site. 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 - 07/01/2024 1:00 PM CREATIVE SERVICES SPECIALIST Luiz Giraldo R.N. 07/01/2024 1:07 PM Fat Aspirate Performed by: Luiz Giraldo R.N. Authorized by: Gt Ricks MPAS, P.A.-C., M.S. Care team members present 1. Luiz Giraldo R.N. PROCEDURE DETAILS Procedure: Fat aspirate Fat aspirate Location: Right abdominal wall and left abdominal wall Needle size (gauge): 18 Aspirate volume (mL): 0.5 CONSENT Consent obtained: written (Risks, benefits and alternatives were discussed and a written Informed Consent was obtained. Please see Informed Consent form for further details.) UNIVERSAL PROTOCOL All relevant documentation and testing were reviewed and available. All required blood products, implants, devices and or special equipment were made available as applicable. Pre-procedure verification was conducted and the correct site was marked if required. A fire risk and smoke assessment were done as applicable. The procedural time-out to verify correct patient, correct side/site, and procedure was conducted prior to performing the procedure and confirmed in a procedural pause. PRE-PROCEDURE DETAILS Appropriate hand hygiene, gown, cap, mask, protective eyewear, sterile gloves, skin preparation, sterile drape, and strict aseptic technique were utilized as applicable for the procedure.: yes Site preparation: alcohol SEDATION / ANESTHESIA Anesthesia method: local infiltration Local infiltrate type: lidocaine POST-PROCEDURE DETAILS Procedure completed successfully: yes Procedure tolorated: Well Post procedure pain scale: 0/10 Complications: no apparent complications Post-procedure instructions: Post-procedure activity instructions provided COMMENTS 0.5 mls 1% Lidocaine given SQ per site. us Gt SCHMIDT P.A.-C., M.S. PROCEDURE/LA NOR SURGICAL ORDERABLES Final Result * Subcutaneous Fat Aspirate (07/01/2024 12:00 AM [facility]) 07/04/2024 11:26 AM [facility] Report electronically signed by Jovon Law M.D. I verify that I have examined all relevant slides/material s for the specimen(s) and rendered or confirmed the diagnosis. 07/04/2024 11:26 AM [facility] Gross Description The subcutaneous fat aspirate used for diagnostic purposes consists of 0.5 mL fat. 07/04/2024 11:26 AM [facility] Interpretation FINAL DIAGNOSIS [place] red stain, abdominal subcutaneous fat aspirate specimen: Amyloid is absent. 07/04/2024 11:26 AM [facility] 07/01/2024 07/01/2024 5:1 2 AM [facility] us Gt SCHMIDT P.A.-C., M.S. 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
--- OUTSIDE RECORDS SUMMARY | 2024-07-18 23:37 | XMS_ITS | Encounter Summary ---
Author Organization [facility] Address [address] [place] [address] Care Team Providers Care Cooling Machine Operator Name Role Phone Elsewhere, Pcp Primary Care Provider Unavailabl e Reason for Visit * Reason Onset Date Comments Results 06/15/2024 Encounter Details Date Type Department Care Team (Latest Contact Info) Description 06/15/2024 Clinical Communication Department of Cardiovascular Medicine in [place], [place] [address] [place] [address] Gt Ricks, ROXANA, P.A.-C., M.S. [address] [place] [phone] Results Social History Tobacco Use Types Packs/Day Years [...] any clubs o r organizations such as anglican groups, unions, fraternal or athletic groups, or [...] and heating? Not hard at all 12/31/2021 [facility] of Occupat ional Health - Occupational [...] or slept in a fdc (including now)? 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
--- OUTSIDE RECORDS SUMMARY | 2024-07-18 23:37 | XMS_ITS | Encounter Summary ---
Author Organization [facility] Address [address] [place] [address] Care Team Providers Care Real Estate Asset Manager Name Role Phone Elsewhere, Pcp Primary Care Provider Unavailabl e Reason for Visit * Reason Onset Date Comments Results 07/11/2024 Encounter Details Date Type Department Care Team (Latest Contact Info) Description 07/11/2024 Clinical Communication Department of Cardiovascular Medicine in [place], [place] [address] [place] [address] Gt Ricks, ROXANA, P.A.-C., M.S. [address] [place] [phone] Results Social History Tobacco Use Types Packs/Day [...] How often do you attend chur or rastafari services? Patient declined 12/31/2021 Do you belong to any clubs o r organizations such as worship groups, unions, fraternal [...] and heating? Not hard at all 12/31/2021 [facility] of Occupat ional Health - Occupational Stress [...] a [place] (including now)? 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
--- OUTSIDE RECORDS SUMMARY | 2024-07-18 23:37 | XMS_ITS | Encounter Summary ---
Author Organization [facility] Address [address] [place] [address] Care Team Providers Care Signal Operator Linguist Name Role Phone Elsewhere, Pcp Primary Care Provider Unavailabl e Reason for Visit * Outpatient (Routine) - Authorized Specialty Diagnoses / Procedures Referred By Contac t Referred To Contact Diagnoses Stenosis Aortic Valve Acquired Coronary Stent Status Post Diabetes Mellitus Type 2 (HCC) Atherosclerotic Heart Disease [place] Coronary Artery With Other Forms Angina Pectoris (Angina Equivalent) (HCC) Hypertension Essential Primary Atrial Fibrillation Unspecified (HCC) Dyspnea On Exertion Procedures NM Cardiac Amyloid SPECT CT Gt Ricks MPAS, P.A.-C., M.S. [address] [place] [phone] Phone: tel: fax: [facility] Referral ID Status Reason Start Date Expiration Date V isits Requested Visits Authorized [id number] Authorized 02/08/2024 02/07/2025 8 8 Encounter Details Date Type Department Care Team (Latest Contact Info) Description 06/09/2024 1:33 PM PHOSPHORIC ACID OPERATOR - 06/09/2024 11:59 PM PHOSPHORIC ACID OPERATOR Hospital Encounter Department of Radiology, [facility], in [place], [place] [address] [place] [phone] Gt Ricks MPAS, P.A.-Aleksandr., M.S. [address] [place] [phone] Discharge Disposition: Home or Self Care Social [...] week 12/31/2021 How often do you attend [facility] or jehovah's witness services? Patient declined 12/31/2021 Do you belong [...] and heating? Not hard at all 12/31/2021 [facility] [place] of Occupat ional Health - Occupational Stress [...] or slept in a usp (including now)? No 12/31/2021 Nutrition Answer Date [...] PM CDT Legal Sex Male 8:35 AM PHOSPHORIC ACID OPERATOR Gender Identity Male 12/09/2017 1:17 PM CDT [...] inpatients and all outpatients) 06/09/2024 2:55 PM PHOSPHORIC ACID OPERATOR Stenosis Aortic Valve Acquired Coronary Stent Status Post Diabetes Mellitus Type 2 (HCC) Atherosclerotic Heart Disease [place] Coronary Artery With Other Forms Angina Pectoris (Angina Equivalent) (HCC) Hypertension Essential Primary Atrial Fibrillation Unspecified (HCC) documented in this encounter Results * NM Cardiac Amyloid SPECT CT (06/09/2024 2:55 PM PHOSPHORIC ACID OPERATOR) 06/09/2024 1:33 PM PHOSPHORIC ACID OPERATOR Narrative [facility] CV MERGE - 06/09/2024 3:09 PM PHOSPHORIC ACID OPERATOR See PDF For Result Procedure Note Antony Pimentel M.D., Ph.D. - 06/09/2024 See PDF For Result Gt SCHMIDT, P.A.-C., M.S. [facility] TONI MELCHOR Final Result CV MERGE NA documented in this encounter Visit Diagnoses Not on filedocumented in this encounter Care Teams Signal Operator Linguist Relationship Specialty Start Date End Date Elsewhere, Pcp PCP - General Family Medicine 01/10/21 documented as of this encounter
--- OUTSIDE RECORDS SUMMARY | 2024-07-18 23:37 | XMS_ITS | Encounter Summary ---
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 [address] [place] [phone] Phone: tel: fax: [facility] Referral ID Status Reason Start Date Expiration Date Visits Re quested Visits Authorized [id number] Closed 06/17/2024 09/17/2025 1 1 AMINER Encounter Details Date Type Department Care Team (Latest Contact Info) Description 06/17/2024 Virtual Visit Department of Cardiovascular Medicine in [place], [place] [address] [place] [phone] Gt Ricks MPAS, P.A.-C., M.S. [address] [place] [phone] Dyspnea On Exertion (Primary Dx); Beat Premature Ventricular; Stenosis Aortic Valve Acquired; Atherosclerotic Heart Disease [place] Coronary Artery With Other Forms Angina Pectoris [...] often do you attend chur ch or jew services? Patient declined 12/31/2021 Do you belong to any clubs o r organizations such as quaker groups, unions, fraternal [...] PM CDT Legal Sex Male 8:35 AM REEXAMINER Gender Identity Male 12/09/2017 1:17 PM CDT Sexual Orientation Straight 12/09/2017 1: 17 PM CDT documented as of this encounter Progress Notes * Gt Ricks MPAS, P.A.-C., M.S. - 06/17/2024 1:32 PM CST Images from the original note were not included. Spoke to the patient and his daughter, Tata, to review his recent testing. His PYP scan was negative for TTR amyloidosis. For AL amyloidosis, his troponins were elevated at 45, NT proBNP has increased to 5802, his kappa/lambda ratio is abnormal with an elevation in the kappa free light chains, buthis serum M- protein Isotype came back negative. Recommended fat aspirate to further evaluate for ALamyloid. Patient's case was also discussed with Dr. Robert. He recommended cardiac MRI as well. If fat aspirate does not show amyloid, we could consider a referral to Hematology for a bone marrow biopsy. I was able to review the findings of the 5 day Holter. This has been scanned into the patient's media tab. He has a PVC burden of 20.7% with occasional couplets and rare triplets. He had 4 runs of ventricular tachycardia with the longest being 7 beats at a rate of 122 beats per minute. Patient continues to track his heart rate with his pulse oximeter. He has been limiting his sodium intake as well and has noticed a reduction in his PVCs. He can tell when he is PVCs because his heart rate is in the 40s on his pulse oximeter and will jump back into the 80s. He continues to exercise on his treadmill without significant symptoms. I will plan to follow up with the patient in his daughter once the above testing is completed. ROXANA Callaway P.A.-C., M.S. 5 day Holter 05/27/2024-06/01/2024: AMINER AMINER documented in this encounter Plan of Treatment Not on file documented as of this encounter Results * MR Cardiac without and with IV Contrast (07/01/2024 3:29 PM REEXAMINER) Anatomical Region Laterality Modality Cardiac, Cardiovascular RST LOS, Thoracic ARZ LOS, Cardiovascular FLA LOS N/A Magnetic Resonance Impressions 07/01/2024 4:54 PM REEXAMINER 1. Mildly enlarged left ventricular chamber size with mild concentric wall thickening. 2. Hypokinesis involving the mid anteroseptal and apical septal segments in addition to the basal inferolateral segment. There is mid myocardial late gadolinium enhancement in the basal inferolateral segment. These findings are consistent with a nonischemic cardiomyopathy. There is no diffuse late gadolinium enhancement and the nulling kinetics are normal. However, the elevated [place] T1 mapping and extracellular volume values raise the possibility of cardiac amyloidosis. Other nonischemic etiologies, such as cardiac sarcoidosis and sequelae of prior myocarditis are other diagnostic considerations. 3. Normal right ventricular chamber size and systolic function. 4. Moderate aortic valve stenosis and mild to moderate aortic valve regurgitation. 5. Bilateral small pleural effusions, left greater than right. Narrative 07/01/2024 4:54 PM REEXAMINER EXAM: MR CARDIAC WITHOUT AND WITH IV CONTRAST COMPARISON: Cardiac amyloid SPECT CT 06/09/2024. FINDINGS: LEFT VENTRICLE: Mildly enlarged left ventricular chamber size. Mild concentric wall thickening. Normal myocardial nulling kinetics. Hypokinesis involving the mid anteroseptal and apical septal segments in addition to the basal inferolateral segment. There is mid myocardial late gadolinium enhancement in the basal inferolateral segment. [place] T1 mapping and calculated extracellular volume values are elevated. RIGHT VENTRICLE: Normal right ventricular chamber size. Normal systolic function. ATRIA: Left atrial enlargement. Normal-sized right atrium. PERICARDIUM: Normal pericardial thickness. No pericardial effusion. No abnormal pericardial enhancement. VALVES: Nondedicated evaluation demonstrates trace mitral regurgitation. Moderate aortic valve stenosis and mild to moderate aortic valve regurgitation. ADDITIONAL FINDINGS: Bilateral small pleural effusions, left greater than right, with adjacent compressive atelectasis. Thoracic kyphosis. Right renal cyst. MEASUREMENTS: Patient weight: 76.6 kg Patient height: 170 cm BSA: 1.9 m2 Series 8: LEFT VENTRICLE: LV End Diastolic Volume = 242mL; Index = 127mL/m2 LV End Systolic Volume = 122mL; Index = 64mL/m2 LV Stroke Volume = 120mL; Index = 63mL/m2 LV Ejection Fraction = 49% LV End Diastolic Mass = 130g; Index = 68g/m2 Series 8: RIGHT VENTRICLE: RV End Diastolic Volume = 176mL; Index = 93mL/m2 RV End Systolic Volume = 75mL; Index = 39mL/m2 RV Stroke Volume = 101mL; Index = 53mL/m2 RV Ejection Fraction = 58% PARAMETRIC MAPPING: T1 myocardium - pre-contrast: 1115 ms T1 blood pool - pre-contrast: 1825 ms T1 myocardium - post-contrast: 286 ms T1 blood pool - post contrast: 265 ms HCT (06/06/2024): 35.7% Extracellular volume: 52% (normal = 18.3 - 32.2) Procedure Note Tom Quinonez M.D. - 07/01/2024 EXAM: MR CARDIAC WITHOUT AND WITH IV CONTRAST COMPARISON: Cardiac amyloid SPECT CT 06/09/2024. FINDINGS: LEFT VENTRICLE: Mildly enlarged left ventricular chamber size. Mild concentric wallthickening. Normal myocardial nulling kinetics. Hypokinesis involving the mid anteroseptal and apical septal segments inaddition to the basal inferolateral segment. There is mid myocardial lategadolinium enhancement in the basal inferolateral segment. [place] T1 mapping and calculated extracellular volume values are elevated. RIGHT VENTRICLE: Normal right ventricular chamber size. Normal systolic function. ATRIA: Left atrial enlargement. Normal-sized right atrium. PERICARDIUM: Normal pericardial thickness. No pericardial effusion. No abnormalpericardial enhancement. VALVES: Nondedicated evaluation demonstrates trace mitral regurgitation. Moderateaortic valve stenosis and mild to moderate aortic valve regurgitation. ADDITIONAL FINDINGS: Bilateral small pleural effusions, left greater than right, with adjacentcompressive atelectasis. Thoracic kyphosis. Right renal cyst. MEASUREMENTS: Patient weight: 76.6 kg Patient height: 170 cm BSA: 1.9 m2 Series 8: LEFT VENTRICLE: LV End Diastolic Volume = 242mL; Index = 127mL/m2 LV End Systolic Volume = 122mL; Index = 64mL/m2 LV Stroke Volume = 120mL; Index = 63mL/m2 LV Ejection Fraction = 49% LV End Diastolic Mass = 130g; Index = 68g/m2 Series 8: RIGHT VENTRICLE: RV End Diastolic Volume = 176mL; Index = 93mL/m2 RV End Systolic Volume = 75mL; Index = 39mL/m2 RV Stroke Volume = 101mL; Index = 53mL/m2 RV Ejection Fraction = 58% PARAMETRIC MAPPING: T1 myocardium - pre-contrast: 1115 ms T1 blood pool - pre-contrast: 1825 ms T1 myocardium - post-contrast: 286 ms T1 blood pool - post contrast: 265 ms HCT (06/06/2024): 35.7% Extracellular volume: 52% (normal = 18.3 - 32.2) IMPRESSION: 1. Mildly enlarged left ventricular chamber size with mild concentricwall thickening. 2. Hypokinesis involving the mid anteroseptal and apical septal segmentsin addition to the basal inferolateral segment. There is mid myocardiallate gadolinium enhancement in the basal inferolateral segment. Thesefindings are consistent with a nonischemic cardiomyopathy. There is no diffuse late gadoliniumenhancement and the nulling kinetics are normal. However, the elevatednative T1 mapping and extracellular volume values raise the possibility ofcardiac amyloidosis. Other nonischemic etiologies, such as cardiac sarcoidosis and sequelae of prior myocarditisare other diagnostic considerations. 3. Normal right ventricular chamber size and systolic function. 4. Moderate aortic valve stenosis and mild to moderate aortic valveregurgitation. 5. Bilateral small pleural effusions, left greater than right. us Gt SCHMIDT P.A.-C., M.S. IMG MRI PROC EDURES Final Result * [place] FNA BX WO IMG 1ST LESION (07/01/2024 1:00 PM REEXAMINER) Narrative Luiz Giraldo R.N. - 07/01/2024 1:00 PM REEXAMINER Luiz Giraldo R.N. 07/01/2024 1:07 PM Fat [...] mls 1% Lidocaine given SQ per site. Gt SCHMIDT, P.A.-C., M.S. 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) Chronic Diastolic (Congestive) Heart Failure (HCC) Dyspnea On Exertion Beat Premature Ventricular Stenosis Aortic Valve Acquired Atherosclerotic Heart Disease [place] Coronary Artery With Other Forms Angina Pectoris (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
--- OUTSIDE RECORDS SUMMARY | 2024-07-18 23:37 | XMS_ITS | Encounter Summary ---
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 [address] [place] [address] Phone: tel: fax: [facility] Referral ID Status Reason Start Date Expiration Date Visits Re quested Visits Authorized [id number] Closed 06/17/2024 09/17/2025 1 1 Encounter Details Date Type Department Care Team (Latest Contact Info) Description 07/01/2024 1:17 PM FABRICATION DEPARTMENT SUPERVISOR - 07/01/2024 11:59 PM FABRICATION DEPARTMENT SUPERVISOR Hospital Encounter Department of Radiology, [facility] in [place], [place] [address] [place] [address] Gt Ricks MPAS, P.A.-C., M.S. 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 Patient declined 12/31/2021 Do you belong to any clubs o r organizations such as congregational groups, unions, fraternal [...] and heating? Not hard at all 12/31/2021 [facility] of Occupat ional Health - Occupational Stress [...] or slept in a retirement (including now)? 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 Mildly enlarged left ventricular chamber size [...] nulling kinetics are normal. However, the elevated [place] T1 mapping and extracellular volume values raise the possibility of cardiac amyloidosis. Other nonischemic etiologies, such as cardiac sarcoidosis and sequelae of prior myocarditis are other diagnostic considerations. 3. Normal right ventricular chamber size and systolic function. 4. Moderate aortic valve stenosis and mild to moderate aortic valve regurgitation. 5. Bilateral small pleural effusions, left greater than right. Narrative 07/01/2024 4:54 PM FABRICATION DEPARTMENT SUPERVISOR EXAM: MR CARDIAC WITHOUT AND WITH IV CONTRAST COMPARISON: Cardiac amyloid SPECT CT 06/09/2024. FINDINGS: LEFT VENTRICLE: Mildly enlarged left ventricular chamber size. Mild concentric wall thickening. Normal myocardial nulling kinetics. Hypokinesis involving the mid anteroseptal and apical septal segments in addition to the basal inferolateral segment. There is mid myocardial late gadolinium enhancement in the basal inferolateral segment. [place] T1 mapping and calculated extracellular volume values [...] lategadolinium enhancement in the basal inferolateral segment. [place] T1 mapping and calculated extracellular volume values [...] small pleural effusions, left greater than right. Gt SCHMIDT PSimonA.VelC., M.S. 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 Given 07/01/2024 3:29 PM FABRICATION DEPARTMENT SUPERVISOR 16 mL documented in this encounter Care Teams Test Facility Engineer Relationship Specialty Start Date End Date Elsewhere, Pcp PCP - General Family Medicine 01/10/21 documented as of this encounter
--- OUTSIDE RECORDS SUMMARY | 2024-07-18 23:37 | XMS_ITS | Encounter Summary ---
Author Organization [facility] Address [address] [place] [id number] Care Team Providers Care Automotive Service Manager Name Role Phone Elsewhere, Pcp Primary Care Provider Unavailabl e Encounter Details Date Type Department Care Team (Latest Contact Info) Description 06/06/2024 11:41 AM BUTTON MAKER AND INSTALLER - 06/06/2024 11:59 PM [facility] Hospital Encounter Department of Laboratory Medicine and Pathology, [facility] in [place], [place] [address] [place] [phone] Gt Ricks MPAS, P.A.-C., M.S. [address] [place] [phone] Stenosis Aortic Valve Acquired; Coronary Stent Status Post; Diabetes Mellitus Type 2 (HCC); Atherosclerotic Heart Disease [place] Coronary Artery With Other Forms Angina Pectoris (Angina Equivalent) ([facility]); Hypertension Essential Primary; Atrial Fibrillation Unspecified ([facility]); Bradycardia; Palpitations; Shortness Of Breath Discharge Disposition: Home or Self Care Social [...] week 12/31/2021 How often do you attend [facility] or hindu services? Patient declined 12/31/2021 Do you belong to any clubs o r organizations such as sikh groups, unions, fraternal or athletic groups, or [...] and heating? Not hard at all 12/31/2021 [facility] [employer] - Occupational Stress [...] or slept in a detention (including now)? No 12/31/2021 Nutrition Answer Date [...] PM CDT Legal Sex Male 8:35 AM BUTTON MAKER AND INSTALLER Gender Identity Male 12/09/2017 1:17 PM [...] Procedure Name Priority Date/Time Associated Diagnosis Comments THYROID FUNCTION CASCADE, S Routine 06/06/2024 11:55 AM BUTTON MAKER AND INSTALLER Stenosis Aortic Valve Acquired Atherosclerotic Heart Disease [place] Coronary Artery With Other Forms Angina Pectoris (Angina Equivalent) (HCC) Coronary Stent Status Post Atrial Fibrillation Unspecified ([facility]) Hypertension Essential Primary Bradycardia Palpitations NT-PRO B-TYPE NATRIURETIC PEPTIDE (BNP), S Routine 06/06/2024 11:55 AM BUTTON MAKER AND INSTALLER Stenosis Aortic Valve Acquired Atherosclerotic Heart Disease [place] Coronary Artery With Other Forms Angina Pectoris (Angina Equivalent) (HCC) Coronary Stent Status Post Atrial Fibrillation Unspecified ([facility]) Hypertension Essential Primary Bradycardia Palpitations Shortness Of Breath IMMUNOGLOBULIN FREE LIGHT CHAINS, S Routine 06/06/2024 11:55 AM BUTTON MAKER AND INSTALLER Stenosis Aortic Valve Acquired Coronary Stent Status Post Diabetes Mellitus Type 2 (HCC) Atherosclerotic Heart Disease [place] Coronary Artery With Other Forms Angina Pectoris (Angina Equivalent) (HCC) Hypertension Essential Primary Atrial Fibrillation Unspecified ([facility]) CBC WITH DIFFERENTIAL, B Routine 06/06/2024 11:55 AM BUTTON MAKER AND INSTALLER Stenosis Aortic Valve Acquired Atherosclerotic Heart Disease [place] Coronary Artery With Other Forms Angina Pectoris (Angina Equivalent) (HCC) Coronary Stent Status Post Atrial Fibrillation Unspecified ([facility]) Hypertension Essential Primary Bradycardia Palpitations MAGNESIUM, S Routine 06/06/2024 11:55 AM BUTTON MAKER AND INSTALLER Stenosis Aortic Valve Acquired Atherosclerotic Heart Disease [place] Coronary Artery With Other Forms Angina Pectoris (Angina Equivalent) (HCC) Coronary Stent Status Post Atrial Fibrillation Unspecified ([facility]) Hypertension Essential Primary Bradycardia Palpitations BASIC METABOLIC PANEL, S/P Routine 06/06/2024 11:55 AM BUTTON MAKER AND INSTALLER Stenosis Aortic Valve Acquired Atherosclerotic Heart Disease [place] Coronary Artery With Other Forms Angina Pectoris (Angina Equivalent) (HCC) Coronary Stent Status Post Atrial Fibrillation Unspecified (HCC) Hypertension Essential Primary Bradycardia Palpitations TROPONIN T, 5TH GEN, P Routine 5 11:54 AM BUTTON MAKER AND INSTALLER Stenosis Aortic Valve Acquired Coronary Stent Status Post Diabetes Mellitus Type 2 (HCC) Atherosclerotic Heart Disease [place] Coronary Artery With Other Forms Angina Pectoris (Angina Equivalent) (HCC) Hypertension Essential Primary Atrial Fibrillation Unspecified (HCC) documented in this encounter Results * Thyroid Function [place] (06/06/2024 11:55 AM BUTTON MAKER AND INSTALLER) TSH, Sensitive 4.2 0.3 - 4.2 mIU/L 06/06/2024 1:38 PM BUTTON MAKER AND INSTALLER DTL Blood (Blood, Venous) 06/06/2024 11:55 AM BUTTON MAKER AND INSTALLER 06/06/2024 12:32 PM BUTTON MAKER AND INSTALLER Gt SCHMIDT P.A.-C., M.S. LAB BLOOD AD D-ON Final Result [facility] [place] [address] [place] [address], [facility] [address] [place] [address] * (ABNORMAL) Basic Metabolic Panel (06/06/2024 11:55 AM BUTTON MAKER AND INSTALLER) Pathologist [facility] Potassium, S 4.8 3.6 - 5.2 mmol/L 06/06/2024 1:38 PM BUTTON MAKER AND INSTALLER DTL Sodium, S 141 135 - 145 mmol/L 06/06/2024 1:38 PM BUTTON MAKER AND INSTALLER DTL Chloride, S 108(H) 98 - 107 mmol/L 06/06/2024 1:38 PM BUTTON MAKER AND INSTALLER DTL Bicarbonate, S 22 22 - 29 mmol/L 06/06/2024 1:38 PM BUTTON MAKER AND INSTALLER DTL Anion Gap 11 7 - 15 06/06/2024 1:38 PM BUTTON MAKER AND INSTALLER DTL BUN (Blood Urea Nitrogen), S 29(H) 8 - 24 mg/dL 06/06/2024 1:38 PM BUTTON MAKER AND INSTALLER DTL Creatinine 1.10 0.74 - 1.35 mg/dL 06/06/2024 1:38 PM BUTTON MAKER AND INSTALLER DTL Estimated GFR (eGFR) 65 >=60 mL/min/BSA 06/06/2024 1:38 PM BUTTON MAKER AND INSTALLER DTL Comment: Estimated GFR calculated using the 2020 CKD_EPI creatinine equation. Calcium, Total, S 8.9 8.8 - 10.2 mg/dL 06/06/2024 1:38 PM BUTTON MAKER AND INSTALLER DTL Glucose, S 191(H) 70 - 140 mg/dL 06/06/2024 1:38 PM BUTTON MAKER AND INSTALLER DTL Blood (Blood, Venous) 06/06/2024 11:55 AM BUTTON MAKER AND INSTALLER 06/06/2024 12:32 PM BUTTON MAKER AND INSTALLER Gt SCHMIDT, P.A.-C., M.S. LAB BLOOD AD D-ON Final Result [facility] [place] [address] [place] [address], [facility] DTL [facility] [address] [place] [address] * (ABNORMAL) CBC with Differential, Blood (06/06/2024 11:55 AM BUTTON MAKER AND INSTALLER) Hemoglobin 10.9(L) 13.2 - 16.6 g/dL 06/06/2024 12:36 PM BUTTON MAKER AND INSTALLER DTL Hematocrit 35.7(L) 38.3 - 48.6 % 06/06/2024 12:36 PM BUTTON MAKER AND INSTALLER DTL Erythrocytes 3.89(L) 4.35 - 5.65 x10(12)/L 06/06/2024 12:36 PM BUTTON MAKER AND INSTALLER DTL MCV 91.8 78.2 - 97.9 fL 06/06/2024 12:36 PM BUTTON MAKER AND INSTALLER DTL RBC Distrib Width 15.5(H) 11.8 - 14.5 % 06/06/2024 12:36 PM BUTTON MAKER AND INSTALLER DTL Platelet Count 206 135 - 317 x10(9)/L 06/06/2024 12:36 PM BUTTON MAKER AND INSTALLER DTL Leukocytes 27.7(H) 3.4 - 9.6 x10(9)/L 06/06/2024 12:36 PM BUTTON MAKER AND INSTALLER DTL Neutrophils 8.41(H) 1.56 - 6.45 x10(9)/L 06/06/2024 2:57 PM BUTTON MAKER AND INSTALLER DHPM Lymphocytes 18.11(H) 0.95 - 3.07 x10(9)/L 06/06/2024 2:57 PM BUTTON MAKER AND INSTALLER DTL Monocytes 0.94(H) 0.26 - 0.81 x10(9)/L 06/06/2024 2:57 PM BUTTON MAKER AND INSTALLER DTL Eosinophils 0.15 0.03 - 0.48 x10(9)/L 06/06/2024 2:57 PM BUTTON MAKER AND INSTALLER DTL Basophils 0.06 0.01 - 0.08 x10(9)/L 06/06/2024 2:57 PM BUTTON MAKER AND INSTALLER DTL Blood (Blood, Venous) 06/06/2024 11:55 AM BUTTON MAKER AND INSTALLER 06/06/2024 12:17 PM BUTTON MAKER AND INSTALLER Gt SCHMIDT P.A.-C., M.S. LAB BLOOD AD D-ON Final Result Performing Organization Address City/[facility]/ZIP Co de Phone Number [facility] [place] [address] [place], [place] [id number] [place] [address] [facility] 200 [place] [address] * (ABNORMAL) NT-Pro B-Type Natriuretic Peptide (BNP) (06/06/2024 11:55 AM BUTTON MAKER AND INSTALLER) NT-Pro BNP 5802(H) <=540 pg/mL 06/06/2024 1:38 PM BUTTON MAKER AND INSTALLER DTL Comment: NT-proBNP values less than 300 pg/mL have a 99% negative predictive value for excluding acute congestive heart failure. A cutoff of 1200 pg/mL for patients with an eGFR<60 yields a diagnostic sensitivity and specificity of 89% and 72% for acute congestive heart failure. A diagnostic NT-proBNP cutoff of 1800 pg/mL has been suggested in adults over 75 years of age in the absence of renal failure. Blood (Blood, Venous) 06/06/2024 11:55 AM BUTTON MAKER AND INSTALLER 06/06/2024 12:32 PM BUTTON MAKER AND INSTALLER us Gt SCHMIDT P.A.-C., M.S. LAB BLOOD AD D-ON Final Result Performing Organization Address City/[facility]/ZIP Co de Phone Number [facility] [place] [address] [place] [address], [facility] 200 [place] [address] * Magnesium (06/06/2024 11:55 AM BUTTON MAKER AND INSTALLER) Magnesium, S 2.0 1.7 - 2.3 mg/dL 06/06/2024 1:38 PM BUTTON MAKER AND INSTALLER DTL Blood (Blood, Venous) 06/06/2024 11:55 AM BUTTON MAKER AND INSTALLER 06/06/2024 12:32 PM BUTTON MAKER AND INSTALLER Gt SCHMIDT P.A.-C., M.S. LAB BLOOD AD D-ON Final Result Performing Organization Address City/[facility]/ZIP Co de Phone Number [facility] [place] 200 [place] [address], [facility] 200 [place] [address] * (ABNORMAL) Immunoglobulin Free Light Chains (06/06/2024 11:55 AM BUTTON MAKER AND INSTALLER) [place] Free Light Chain, S 4.91(H) 0.3300 - 1.94 mg/dL 06/06/2024 6:25 PM BUTTON MAKER AND INSTALLER SDSC Lambda Free Light Chain, S 2.44 0.5700 - 2.63 mg/dL 06/06/2024 6:26 PM BUTTON MAKER AND INSTALLER SDSC [place]/Lambda FLC Ratio 2.01(H) 0.2600 - 1.65 06/06/2024 6:26 PM BUTTON MAKER AND INSTALLER [facility]SC Comment: Elevated free light chain ratios between 1.66 and 3.00 may occur due to polyclonal hypergammaglobulinemia or impaired renal clearance. An isolated increased free light chain ratio in this range should be interpreted with caution, and clinical correlation is recommended. Blood (Blood, Venous) 06/06/2024 11:55 AM BUTTON MAKER AND INSTALLER 06/06/2024 2:27 PM BUTTON MAKER AND INSTALLER Gt SCHMIDT P.A.-C., M.S. LAB BLOOD AD D-ON Final Result [facility] [address] [place] [address] [facility] [address] [place] [address] * (ABNORMAL) Troponin T, 5th Generation (06/06/2024 11:54 AM BUTTON MAKER AND INSTALLER) Troponin T, 5th gen 45(H) <=15 ng/L 06/06/2024 2:41 PM BUTTON MAKER AND INSTALLER DTL Blood (Blood, Venous) 06/06/2024 11:54 AM BUTTON MAKER AND INSTALLER 06/06/2024 12:33 PM BUTTON MAKER AND INSTALLER Gt SCHMIDT, P.A.-C., M.S. LAB BLOOD AD D-ON Final Result [facility] [place] [address] [place] [address], [facility] [address] [place] [address] documented in this encounter Visit Diagnoses Diagnosis Stenosis Aortic Valve Acquired Coronary Stent Status Post Diabetes Mellitus Type 2 (HCC) Atherosclerotic Heart Disease [place] Coronary Artery With Other Forms Angina Pectoris (Angina Equivalent) (HCC) Hypertension Essential Primary Atrial Fibrillation Unspecified (HCC) Bradycardia Palpitations Shortness Of Breath documented in this encounter Care Teams Automotive Service Manager Relationship Specialty Start Date End Date Elsewhere, Pcp PCP - General Family Medicine 01/10/21 documented as of this encounter
[2024-07-18 23:42] LABS: Chloride* 102 mmol/L (96-114); Potassium* 4.5 mmol/L (3.6-5.1); Sodium* 136 mmol/L (135-149)
[2024-07-18 23:45] LABS: Anion Gap 8 mEq/L (7-15); Blood Urea Nitrogen* 31 mg/dL (7-30); Calcium* 8.9 mg/dL (8.4-10.6); Carbon Dioxide* 26 mmol/L (20-32); Creatinine* 1.1 mg/dL (0.5-1.5); Estimated Glomerular Filt Rate 65 ml/min; Glucose* 190 mg/dL (60-115)
[2024-07-19] VITALS (27 sets, daily range): BP systolic 107–161; BP diastolic 35–80; PULSE 59–97; RESP 16–24; TEMP 36.6–37.3; O2SAT 86–100; BMI 26.6
[2024-07-19 00:05] LABS: Creatine Kinase* 75 U/L (54-186)
[2024-07-19 00:13] LABS: Slide Review Reflex Yes
[2024-07-19] MEDS: HYDROmorphone 0.5 mg/0.5 ml inj 0.3 MG IVP ×4 (00:13→08:31)
[2024-07-19 00:14] LABS: Slide Review Acceptable Review (Acceptable)
--- NOTE | 2024-07-19 03:03 | W.PM.TELEH&P ---
Telehealth- H&P: HPI History of Present Illness Date Seen: 07/19/24 Chief complaint: Fall Narrative: Kristofer Garcia is seen as an Interactive Telehealth visit. Kristofer Garcia is a 88 year old male who is Presents to hospital for follow-up. Patient stated that he was doing his laundry when he lost his balance. He denied any loss of consciousness. He denied lightheadedness. He denies orthostasis. After he fell, he stated he landed on his backside and complained of severe pain. He contacted his daughter who lives with him. Daughter contacted EMS. Patient was brought to the emergency room. In the ER he underwent laboratory evaluation which showed a WBC count 34,000, hemoglobin 11.1 platelet level of, 198. Patient underwent x-ray of the hip and x-ray of the chest. Hip x-ray was negative for acute fracture. Chest x-ray was negative for effusions or pneumothorax or fractures. Due to the severity of his pain and inability to the patient to bear weight, patient subsequently asked CT scan of the hip. This showed an acute comminuted slightly displaced impacted intertrochanteric right proximal femur fracture. Orthopedics was consulted and recommended admission for potential surgery. Review of Systems Status of ROS: Reports: 10 or more systems reviewed and unremarkable except as noted in History and below Const: Denies: fever, chills or change in weight Eyes: Denies: change in vision or blurry vision Cardio: Denies: chest pain, palpitations, edema, swelling of feet/ankles, lightheadedness or shortness of breath with exertion Resp: Denies: shortness of breath or wheezing GI: Denies: abdominal pain, nausea or vomiting : Denies: painful urination or urinary frequency Musculo: Reports: extremity pain, joint pain, limited range of motion and muscle weakness Integ/Breast: Denies: rash or itching Neuro: Reports: headache Allergy/Immuno: Denies: wheezing PFSH [facility] Medical History Pneumonia ?J18.9 - Pneumonia, unspecified organism (ICD-10) Elevated troponin ?R79.89 - Other specified abnormal findings of blood chemistry (ICD-10) COVID ?U07.1 - COVID-19 (ICD-10) Physical deconditioning ?R53.81 - Other malaise (ICD-10) Colitis ?K52.9 - Noninfective gastroenteritis and colitis, unspecified (ICD-10) CLL (chronic lymphocytic leukemia) ?C91.10 - Chronic lymphocytic leukemia of B-cell type not having achieved remission (ICD-10) Aortic stenosis, severe ?I35.0 - Nonrheumatic aortic (valve) stenosis (ICD-10) CAD (coronary artery disease) ?I25.10 - Atherosclerotic heart disease of [place] coronary artery without angina pectoris (ICD-10) Atrial fibrillation ?I48.91 - Unspecified atrial fibrillation (ICD-10) Diverticulosis ?K57.90 - Diverticulosis of intestine, part unspecified, without perforation or abscess without bleeding (ICD-10) Blood clot of artery under arm ?I74.2 - Embolism and thrombosis of arteries of the upper extremities (ICD-10) Diabetic retinopathy ?E11.319 - Type 2 diabetes mellitus with unspecified diabetic retinopathy without macular edema (ICD-10) Interstitial lung disease ?J84.9 - Interstitial pulmonary disease, unspecified (ICD-10) ROSA ISELA (obstructive sleep apnea) ?G47.33 - Obstructive sleep apnea (adult) (pediatric) (ICD-10) Hyperlipidemia ?E78.5 - Hyperlipidemia, unspecified (ICD-10) Type 2 diabetes mellitus ?E11.9 - Type 2 diabetes mellitus without complications (ICD-10) GERD (gastroesophageal reflux disease) ?K21.9 - Gastro-esophageal reflux disease without esophagitis (ICD-10) Essential hypertension ?I10 - Essential (primary) hypertension (ICD-10) 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 - Dissection of other specified artery (ICD-10) Ileitis ?K52.9 - Noninfective gastroenteritis and colitis, unspecified (ICD-10) Surgical History Patella fracture ?S82.009A - Unspecified fracture of unspecified patella, initial encounter for closed fracture (ICD-10) History of atherectomy ?Z98.890 - Other specified postprocedural states (ICD-10) H/O colectomy ?Z90.49 - Acquired absence of other specified parts of digestive tract (ICD-10) History of laparoscopic cholecystectomy ?Z90.49 - Acquired absence of other specified parts of digestive tract (ICD-10) Social History What is your current living situation?: I presently have a place to live Problems where you live: no known problems Problems where you live details: no know problems In the past 12 months, utilities in danger of being shut off: no In past 12 months, lack of transportation kept you from medical appts, meetings, work, or getting things needed for daily living: no In the past 12 mos, have been you worried that your food would run out before you had money to buy more?: never true In the past 12 mos, the food you bought just didn't last and you didn't have money to buy more?: never true Highest level of school completed/degree received: high school graduate Smoking Status: Former smoker What tobacco products do you use: cigarettes Smoking quit date/years: >15 years ago Do you use any of these nicotine containing products: None Second hand tobacco smoke exposure: Yes How often do you have a drink containing alcohol: never How often do you have six or more drinks on one occasion: Never AUDIT-C Alcohol total score: 0 Non-prescribed substance use: denies use Caffeine: Yes (Tea) How often does anyone, including family, friends and others, physically hurt you: never How often does anyone, including family, friends and others, insult or talk down to you: never How often does anyone, including family, friends and others, threaten you with harm: never How often does anyone, including family, friends and others, scream or curse at you: never service: Yes Meds Home Medications and Allergies Home Medications ?Medication ?Instructions ?Recorded ?Confirmed ?Type atorvastatin 20 mg tablet 20 mg PO DAILY 03/26/22 05/05/24 History carvedilol 25 mg tablet 25 mg PO BID 03/26/22 05/05/24 History omeprazole 20 mg capsule,delayed 40 mg PO HS 03/26/22 05/05/24 History release spironolactone 25 mg tablet 25 mg PO DAILY 03/26/22 05/05/24 History valsartan 320 mg tablet 320 mg PO HS 03/26/22 05/05/24 History apixaban 2.5 mg tablet (Eliquis) 2.5 mg PO BID 08/27/22 05/05/24 History ascorbic acid (vitamin C) 500 mg 500 mg PO DAILY 08/27/22 05/05/24 History tablet aspirin 81 mg chewable tablet 1 tab PO DAILY 08/27/22 05/05/24 History empagliflozin 25 mg tablet 25 mg PO DAILY 08/27/22 05/05/24 History (Jardiance) vitamin E mixed 400 unit capsule 400 unit PO DAILY 08/27/22 05/05/24 History cetirizine 10 mg tablet 10 mg PO DAILY 09/21/23 05/05/24 History Allergies Allergy/AdvReac Type Severity Reaction Status Date / Time amlodipine Allergy Verified 07/19/24 02:01 metformin AdvReac Intermediate Diarrhea Verified 07/18/24 22:26 Exam Narrative Exam Narrative: Physical Exam GENERAL: ?vital signs reviewed, well developed and nourished, in no distress HEENT: bumb on the posterior portion of head, non bleeding. no signs of bruising. pupils are equal round and reactive to light, extraocular movements are grossly within normal limits and oral mucosa is moist. NECK: Supple without lymphadenopathy or thyromegaly according to nursing staff examination observation HEART: Regular rate and rhythm without any rubs, murmurs, or gallops. LUNGS: Clear to auscultation bilaterally with good air movement throughout EXTREMITIES: right hip pain, shortened, externally rotated. SKIN:? Observed warm and dry with color normal Const Vital Signs, click to edit/add: Vital Signs - 24 hr 07/18/24 22:25 07/19/24 01:06 07/19/24 01:10 Temperature 98.1 F Pulse Rate [Pulse Oximeter] 93 Respiratory Rate 18 Blood Pressure [Left Upper Arm] 161/80 H Pulse Oximetry 92 92 86 L Oxygen Delivery Method Room Air Room Air Oxygen Flow Rate 2.5 07/19/24 01:22 07/19/24 02:20 Temperature 98.1 F Pulse Rate [Pulse Oximeter] 93 Respiratory Rate 18 Blood Pressure [Left Upper Arm] 161/80 H Pulse Oximetry 94 Oxygen Delivery Method Nasal Cannula Oxygen Flow Rate 1 Common normals: no apparent distress, oriented x3 and alert Neuro Common normals: oriented x3 Sensorium/orientation: alert Hospitalist - H&P: Result Labs Labs: Short CBC 07/18/24 Range/Units 23:20 WBC 34.48 H* (4.50-11.00) K/uL Hgb 11.1 L (13.5-17.5) gm/dL Hct 35.4 L (37.0-53.0) % Plt Count 198 (140-440) K/uL BMP 07/18/24 23:20 Sodium 136 Potassium 4.5 Chloride 102 Carbon Dioxide 26 BUN 31 H Creatinine 1.1 Glucose 190 H Calcium 8.9 Cardiac Enzymes 07/18/24 Range/Units 23:20 Total Creatine Kinase 75 (54-186) U/L Assessment and Plan Assessment and plan (1) Hip injury: Status: Acute (2) Chronic lymphocytic leukemia: Status: Acute (3) Aortic stenosis, severe: Problem comment: - noted on 09/21/23 TTE (was mild on 2019 TTE) - outpatient f/u with PCP and Cardiology at [place] Status: Acute Plan Assessment and plan Acute impacted comminuted intertrochanteric right proximal femur fracture: Patient is NPO. Orthopedic consulted. Pain medication provided. Patient is on IV fluids. Please note this patient is on aspirin and Eliquis. Both medications have been held. He did however take his last Eliquis at 9 PM on July 18, 2024. It is likely going to require a 24 to 48-hour phase for him to have be cleared of his Eliquis. Patient has a past medical history significant for CLL he is not on any treatment. For this. His hemoglobin and WBC count appear to be within appropriate limits. History of severe aortic stenosis: This patient had an echocardiogram in 2023 that was read as moderate to severe aortic stenosis. He has noted to have a decreased left ventricular function of the EF 45%-50%, mild MR, moderate aortic insufficiency andconsidered severe aortic stenosis. History of HFrEF: Patient is at reduced ejection fraction. At this time he does not appear to be fluid overloaded. He appears to be euvolemic. DVT prophylaxis SCDs Code level full discussed with the patient Next of kin: Daughters Perioperative risk: This patient is a moderate risk to for a moderate risk surgery. His moderate to severe risk is based on his cardiac issues. Given his history of severe aortic disease, HFrEF these are concerning however he is asymptomatic from this. He did not experience lightheadedness from his severe disease. Suggesting he is not symptomatic. Telehealth Visit: Todays History and Physical is via interactive telehealth by Dr Everardo Mayberry MD The Patient is located [facility]: Physician [facility]. Nursing staff assisted in the patient's exam. The visit being done today meets criteria for a telehealth visit and the patient or patient's parent/guardian is aware the visit is a telehealth visit. Camera Start time 230 Camera End time 330 Telehealth: Statement Statement Telehealth Visit: Today's History and Physical is provided via interactive telehealth by Everardo Mayberry MD.? Patient is located at [facility].? Provider is located at [facility].? Nursing staff assisted with the patient's exam. The visit being done today meets criteria for a telehealth visit and the patient or patient?s parent/guardian is aware the visit is a telehealth visit.
[2024-07-19] MEDS: ONDANSETRON 2 MG/ML inj 4 MG IVP (03:22)
[2024-07-19 06:43] LABS: Albumin* 3.5 g/dL (3.3-5.0); Chloride* 102 mmol/L (96-114); Potassium* 4.5 mmol/L (3.6-5.1); Sodium* 136 mmol/L (135-149)
[2024-07-19 06:45] LABS: Anion Gap 9 mEq/L (7-15); Bilirubin Total* 0.7 mg/dL (0.1-1.5); Blood Urea Nitrogen* 30 mg/dL (7-30); Carbon Dioxide* 25 mmol/L (20-32); Est. Creatinine Clearance* 47.74; Estimated Glomerular Filt Rate 72 ml/min
[2024-07-19 06:46] LABS: Alanine Aminotransferase* 19 U/L (4-50); Alkaline Phosphatase* 99 U/L (40-150); Aspartate Amino Transferase* 25 U/L (12-35); Calcium* 8.8 mg/dL (8.4-10.6); Glucose* 148 mg/dL (60-115); Total Protein* 5.9 g/dL (6.0-8.3)
--- NOTE | 2024-07-19 06:54 | PC.NURSE ---
End of shift summary: Pt was admitted to the floor at about 0140. He is A&O, afebrile and VSS with exception to acute hypoxia. He?s requiring 1-2L NC to maintain > 90%. Pt is from home and lives with his daughter. He presents with right hip pain after an unwitnessed fall at home. Pt hit his head on his computer desk during the fall and he is on Eliquis for A. Fib. Head CT negative. Pelvic CT shows proximal femur fracture. Pt has been NPO since arrival and utilizing the urinal (refusing griffin catheter at this time). PIV in left AC is SL and C/D/I. PRN Dilaudid given x2 doses with the last being at 0520.?
[2024-07-19 07:00] LABS: INR 1.39 (0.91-1.10)
[2024-07-19] MEDS: SODIUM CHLORIDE 0.9 % (FLUSH) 10 ML SYRINGE 5 ML IVF (08:31)
--- NOTE | 2024-07-19 09:25 | NUTR.NU ---
RDN with nutrition screen related to positive MST score. Patient admitted for hip fracture, orthopedic surgery consulted. Medical history significant for type 2 DM with retinopathy, GERD, hyperlipidemia, and CLL (chronic lymphocytic leukemia) without current treatment. Current weight 169lb 11.2oz; height 5ft 7in; BMI 26.6 kg/m2. Weight history shows a 13lb wt loss in 3 months, which is not a significant loss at 7.1%. Patient's weight history shows a 23 lbs weight loss since 2022, at 12%, which is also not a significant weight loss. Current diet is NPO in anticipation for surgery. No nutrition interventions at this time with stable weight and current diet order. RDN will continue to monitor and follow-up prn.
[2024-07-19] MEDS: ACETAMINOPHEN 500 MG TABLET 1000 MG PO (09:38)
[2024-07-19] MEDS: carvediloL 25 MG TABLET PO (09:39)
[2024-07-19] MEDS: EMPAGLIFLOZIN 25 MG TABLET PO (09:41)
[2024-07-19] MEDS: LACTATED RINGERS 1000 ML 1,000 ML 100 ML IV (12:45)
--- NOTE | 2024-07-19 12:45 | CRLHL7_ITS ---
For Patients: As a result of the Cures Act, medical imaging exams and procedure reports are released immediately into your electronic medical record. You may view this report before your referring provider. If you have questions, please contact your health care provider. Indication: RT FEMUR IM NAILING Technique: Four fluoroscopic images of the right hip. Fluoroscopic time 99.6 seconds. IMPRESSION: Fluoroscopic guidance for open reduction internal fixation of proximal femoral fracture. Dictated by Bertrand Gordon MD @ 07/20/2024 10:53:31 AM (Electronically Signed)
[2024-07-19] MEDS: CEFAZOLIN 1 GM inj IVP (13:34)
--- NOTE | 2024-07-19 14:06 | W.ANESCHARGE ---
Anesthesia Charges Start Date/Time Anesthesia Start Date: 07/19/24 Anesthesia Start Time: 13:11 Stop Date/Time Anesthesia Stop Date: 07/19/24 Anesthesia Stop Time: 14:48 Summary Emergency: MDA Extremes of Age - Over 70 or under 1: MDA Coding CPT Codes CPT Codes: ANESTH SURGERY OF FEMUR - 17835 ([id number]) P4 - PT W/SEV SYS DIS THREAT LIFE, QK - CAREER INFORMATION SPECIALIST 2-4 CNCRNT ANES PROC, QX - PLASTIC MOLDER SVC W/ MD MED DIRECTION Additional Codes: Summary - Emergency: MDA ([id number]) Summary - Extremes of Age - Over 70 or under 1: MDA ([id number])
--- NOTE | 2024-07-19 14:20 | PC.NURSE ---
End of shift: Pt A&O x 3. Pain to right leg, CMS intact. Dilaudid works well for pain control. Pt voiding in urinal, declines griffin catheter. Pt has supportive family. To surgery at 1300 for IM deidre to right leg.
--- NOTE | 2024-07-19 14:41 | P.ORPRC_ITS ---
Procedure Note Date of procedure: 07/19/24 Procedure: PREOPERATIVE DIAGNOSIS: Right hip 2 part intertrochanteric fracture POSTOPERATIVE DIAGNOSIS: Right hip 2 part intertrochanteric fracture NAME OF OPERATION: Right hip fracture ORIF SURGEON: Azeem Greenwood MD BOAT PAINTER: ANNY Rodríguez IMPLANTS: Synthes intramedullary hip screw 12 mm x 170 mm with a 105 mm lag screw and a 36 mm distal interlocking screw ANESTHESIA: General ESTIMATED BLOOD LOSS: 15 mL COMPLICATIONS: None SPECIMENS: None DRAINS: None PREOPERATIVE ANTIBIOTICS: Ancef 1 gram INDICATIONS: The patient is a 88-year-old who fell yesterday sustaining a 2 part intertrochanteric fracture of the right hip. They were admitted for workup and care. They have been medically cleared for surgery. The risks, benefits and expected outcomes were discussed in detail. These included but were not limited to: Infection, bleeding, injury to blood vessel or nerve, venous thromboembolism. All questions were answered to their satisfaction. Use of an assistant chief train dispatcher was necessary for patient positioning and safety, soft tissue retraction and closure, dressing application, and transfer of the patient to and from the hospital bed to the fracture table. PROCEDURE: General anesthesia was administered. The patient was placed supine on the fracture table. The right lower extremity was prepped and draped in the usual sterile fashion. The limb was placed in longitudinal traction. Our provisional reduction was confirmed with the C-arm. The guide pin was placed percutaneously to the tip of the greater trochanter. It was advanced into the canal. Its placement was confirmed with the image intensifier in both AP and lateral views. We then made a stab incision around the guide pin. The soft tissue sleeve was advanced to the tip of the trochanter. The opening reamer was used. We made an incision over the flare of the greater trochanter. Dissection was carried with the Logan elevator to the lateral cortex. A bone hook was placed over the calcar to obtain an anatomic reduction. The intramedullary nail was placed. The guide pin was taken to the subchondral bone of the femoral head on both the AP and lateral views. It was placed in the posterior, inferior aspect of the head. The drill and the tap were used. We placed the 105 mm lag screw. Our reduction remains anatomic. Traction was released. The fracture was compressed. The lag screw was set to static mode. We placed a 36 mm distal interlocking screw. This construct was imaged in the AP and lateral views and was felt to be well placed with an anatomic reduction. The wounds were irrigated with normal saline. They were closed with Vicryl deep and Monocryl in the skin. A dry dressing was applied. Sponge and needle counts were correct x2. The patient tolerated the procedure well. There were no apparent complications. They were carefully transferred to the hospital bed and taken to the postanesthesia care unit in satisfactory condition. PLAN: The patient will be mobilized with physical therapy. They may weig htbear as tolerates on the right lower extremity. The patient may continue on Eliquis. They will be discharged to a snf once medically appropriate.
--- NOTE | 2024-07-19 14:44 | P.ORCN_ITS ---
History of Present Illness HPI Date Seen: 07/19/24 Requesting physician: Usha Cox Chief complaint: Fall Narrative: The patient is an 88-year-old community ambulator without assist. He fell yesterday sustaining a minimally displaced intertrochanteric fracture of his right hip. He was admitted for workup and definitive management. He has never injured this hip or had surgery on it previously. He is on Eliquis for atrial fibrillation. Review of Systems Narrative: The patient denies: Fever, night sweats, shaking chills, nausea, vomiting, diarrhea, chest pain, chest pressure, shortness of breath, no rash, no change in hearing or vision, no issues with bleeding or clotting [facility] Medical History Pneumonia ?J18.9 - Pneumonia, unspecified organism (ICD-10) Elevated troponin ?R79.89 - Other specified abnormal findings of blood chemistry (ICD-10) COVID ?U07.1 - COVID-19 (ICD-10) Physical deconditioning ?R53.81 - Other malaise (ICD-10) Colitis ?K52.9 - Noninfective gastroenteritis and colitis, unspecified (ICD-10) CLL (chronic lymphocytic leukemia) ?C91.10 - Chronic lymphocytic leukemia of B-cell type not having achieved remission (ICD-10) Aortic stenosis, severe ?I35.0 - Nonrheumatic aortic (valve) stenosis (ICD-10) CAD (coronary artery disease) ?I25.10 - Atherosclerotic heart disease of [place] coronary artery without angina pectoris (ICD-10) Atrial fibrillation ?I48.91 - Unspecified atrial fibrillation (ICD-10) Diverticulosis ?K57.90 - Diverticulosis of intestine, part unspecified, without perforation or abscess without bleeding (ICD-10) Blood clot of artery under arm ?I74.2 - Embolism and thrombosis of arteries of the upper extremities (ICD- 10) Diabetic retinopathy ?E11.319 - Type 2 diabetes mellitus with unspecified diabetic retinopathy without macular edema (ICD-10) Interstitial lung disease ?J84.9 - Interstitial pulmonary disease, unspecified (ICD-10) ROSA ISELA (obstructive sleep apnea) ?G47.33 - Obstructive sleep apnea (adult) (pediatric) (ICD-10) Hyperlipidemia ?E78.5 - Hyperlipidemia, unspecified (ICD-10) Type 2 diabetes mellitus ?E11.9 - Type 2 diabetes mellitus without complications (ICD-10) GERD (gastroesophageal reflux disease) ?K21.9 - Gastro-esophageal reflux disease without esophagitis (ICD-10) Essential hypertension ?I10 - Essential (primary) hypertension (ICD-10) 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 - Dissection of other specified artery (ICD-10) Ileitis ?K52.9 - Noninfective gastroenteritis and colitis, unspecified (ICD-10) Surgical History Patella fracture ?S82.009A - Unspecified fracture of unspecified patella, initial encounter for closed fracture (ICD-10) History of atherectomy ?Z98.890 - Other specified postprocedural states (ICD-10) H/O colectomy ?Z90.49 - Acquired absence of other specified parts of digestive tract (ICD- 10) History of laparoscopic cholecystectomy ?Z90.49 - Acquired absence of other specified parts of digestive tract (ICD- 10) Social History What is your current living situation?: I presently have a place to live Problems where you live: no known problems Problems where you live details: no known problems In the past 12 months, utilities in danger of being shut off: no In past 12 months, lack of transportation kept you from medical appts, meetings, work, or getting things needed for daily living: no In the past 12 mos, have been you worried that your food would run out before you had money to buy more?: never true In the past 12 mos, the food you bought just didn't last and you didn't have money to buy more?: never true Highest level of school completed/degree received: high school graduate Smoking Status: Former smoker What tobacco products do you use: cigarettes Smoking quit date/years: >15 years ago Do you use any of these nicotine containing products: None Second hand tobacco smoke exposure: Yes How often do you have a drink containing alcohol: never How often do you have six or more drinks on one occasion: Never AUDIT-C Alcohol total score: 0 Non-prescribed substance use: denies use Caffeine: Yes (Tea) How often does anyone, including family, friends and others, physically hurt you : never How often does anyone, including family, friends and others, insult or talk down to you: never How often does anyone, including family, friends and others, threaten you with harm: never How often does anyone, including family, friends and others, scream or curse at you: never service: Yes Meds Home Medications and Allergies Home Medications ?Medication ?Instructions ?Recorded ?Confirmed ?Type atorvastatin 20 mg tablet 20 mg PO QPM 03/26/22 07/19/24 History carvedilol 25 mg tablet 25 mg PO BID 03/26/22 07/19/24 History omeprazole 20 mg capsule,delayed 20 mg PO BID 03/26/22 07/19/24 History release spironolactone 25 mg tablet 25 mg PO DAILY 03/26/22 07/19/24 History valsartan 320 mg tablet 320 mg PO HS 03/26/22 07/19/24 History apixaban 2.5 mg tablet (Eliquis) 2.5 mg PO BID 08/27/22 07/19/24 History ascorbic acid (vitamin C) 500 mg 500 mg PO DAILY 08/27/22 07/19/24 History tablet aspirin 81 mg chewable tablet 1 tab PO DAILY 08/27/22 07/19/24 History empagliflozin 25 mg tablet 25 mg PO DAILY 08/27/22 07/19/24 History (Jardiance) vitamin E mixed 400 unit capsule 400 unit PO DAILY 08/27/22 07/19/24 History cetirizine 10 mg tablet 10 mg PO DAILY 09/21/23 07/19/24 History albuterol sulfate 90 mcg/actuation 2 inh inhalation Q4H PRN 07/19/24 07/19/24 History aerosol inhaler Allergies Allergy/AdvReac Type Severity Reaction Status Date / Time amlodipine Allergy Verified 07/19/24 03:52 metformin AdvReac Intermediate Diarrhea Verified 07/19/24 03:52 Ortho Exam Narrative Exam Narrative: The patient is alert and oriented x3, in no acute distress, they are able to converse in a normal speaking voice without obvious hearing loss and with nonlabored breathing. The patient is examined supine in a hospital bed. The skin about the right hip is intact, no swelling or ecchymosis, no surgical scars. CMS to the right foot is normal. Const Vital Signs, click to edit/add: Vital Signs - 24 hr 07/18/24 22:25 07/19/24 01:06 07/19/24 01:10 Temperature 98.1 F Pulse Rate [Pulse Oximeter] 93 Respiratory Rate 18 Blood Pressure [Left Upper Arm] 161/80 H Blood Pressure [Right Arm] Pulse Oximetry 92 92 86 L Oxygen Delivery Method Room Air Room Air Oxygen Flow Rate 2.5 07/19/24 01:22 07/19/24 01:40 07/19/24 01:40 Temperature 98.3 F 98.1 F Pulse Rate [Pulse Oximeter] 97 97 Respiratory Rate 20 18 Blood Pressure [Left Upper Arm] Blood Pressure [Right Arm] 148/65 H 148/65 H Pulse Oximetry 94 96 96 Oxygen Delivery Method Nasal Cannula Nasal Cannula Nasal Cannula Oxygen Flow Rate 1 2 2 07/19/24 01:40 07/19/24 02:20 07/19/24 07:30 Temperature 98.1 F 99 F Pulse Rate [Pulse Oximeter] 93 71 Respiratory Rate 18 18 18 Blood Pressure [Left Upper Arm] 161/80 H Blood Pressure [Right Arm] 133/58 L Pulse Oximetry 96 96 Oxygen Delivery Method Nasal Cannula Nasal Cannula Oxygen Flow Rate 2 2 07/19/24 08:00 07/19/24 12:22 Temperature Pulse Rate [Pulse Oximeter] 64 Respiratory Rate 16 Blood Pressure [Left Upper Arm] Blood Pressure [Right Arm] 122/49 L Pulse Oximetry 96 95 Oxygen Delivery Method Nasal Cannula Oxygen Flow Rate 2 Results Labs Labs: Laboratory Results - last 48 hr 07/18/24 07/19/24 07/19/24 23:20 05:55 13:07 WBC 34.48 H* RBC 3.90 L Hgb 11.1 L Hct 35.4 L MCV 91 MCH 29 MCHC 31 L RDW Coeff of Ravi 15.9 H Plt Count 198 Neut % (Auto) 34.1 L Lymph % (Auto) 62.7 H Orange % (Auto) 2.3 Eos % (Auto) 0.4 Baso % (Auto) 0.1 Neut # (Auto) 11.80 H Lymph # (Auto) 21.60 H Orange # (Auto) 0.80 Eos # (Auto) 0.10 Baso # (Auto) 0.00 Abs Immat Gran (auto) 0.10 Imm/Tot Granulo (auto) 0.4 Diff Slide Review Acceptable Review INR 1.39 H Sodium 136 136 Potassium 4.5 4.5 Chloride 102 102 Carbon Dioxide 26 25 Anion Gap 8 9 BUN 31 H 30 Creatinine 1.1 1.0 Estimated Creat Clear 43.40 47.74 Estimated GFR 65 72 Glucose 190 H 148 H Calcium 8.9 8.8 Total Bilirubin 0.7 AST 25 ALT 19 Alkaline Phosphatase 99 Total Creatine Kinase 75 Total Protein 5.9 L Albumin 3.5 Blood Type O Positive Antibody Screen NEGATIVE Diagnostic results Additional Comments: An AP pelvis, AP and cross-table lateral view of the right hip show a 2 part i ntertrochanteric fracture. There is no significant comminution or displacement. There is no pre-existing hip joint arthritis. CT scan of the hip confirms the diagnosis. Assessment and Plan Assessment and plan (1) Hip injury: Status: Acute Total time spent: Total time spent is greater than 50% in coordination of care (as documented) at patient's floor/unit and/or counseling patient: (2) Chronic lymphocytic leukemia: Status: Acute Total time spent: Total time spent is greater than 50% in coordination of care (as documented) at patient's floor/unit and/or counseling patient: (3) Aortic stenosis, severe: Problem comment: - noted on 09/21/23 TTE (was mild on 2019 TTE) - outpatient f/u with PCP and Cardiology at [place] Status: Acute Total time spent: Total time spent is greater than 50% in coordination of care (as documented) at patient's floor/unit and/or counseling patient: Plan Assessment: Two part intertrochanteric right hip fracture Plan: The patient has been medically cleared for surgery. He took Eliquis last evening. However, this does not preclude surgical intervention for his hip fracture. We will not be able to pursue spinal anesthesia. I spoke with the anesthesia department and they are fine managing the case with a general anesthetic. Therefore, we will plan to take him to the operating room today for ORIF of his right hip fracture.
--- NOTE | 2024-07-19 15:05 | W.ANESCHARGE ---
Anesthesia Charges Start Date/Time Anesthesia Start Date: 07/19/24 Anesthesia Start Time: 13:11 Stop Date/Time Anesthesia Stop Date: 07/19/24 Anesthesia Stop Time: 14:48 Summary Emergency: MARIA D Coding CPT Codes CPT Codes: ANESTH HIP JOINT SURGERY - 67665 ([id number]) P4 - PT W/SEV SYS DIS THREAT LIFE, QK - ENTERPRISE PROJECT MANAGER 2-4 CNCRNT ANES PROC, QX - AREA COUNSELOR SVC W/ MD MED DIRECTION Additional Codes: Summary - Emergency: MARIA D ([id number])
[2024-07-19] MEDS: HYDROmorphone 0.5 mg/0.5 ml inj IVP ×2 (15:47→22:42)
[2024-07-19] MEDS: LACTATED RINGERS 1000 ML 1,000 ML 75 ML IV (15:57)
--- NOTE | 2024-07-19 16:35 | PM.IMPN1 ---
Progress Note: A&P Assessment and plan (1) Hip fracture, right: Problem details: - from standing height - I spoke with Dr. Greenwood. He would like to do surgery today. I informed him that this patient is on chronic Eliquis and last took it last night at 9pm. - Perioperative risk discussed in Dr. Mayberry's note. Status: Acute (2) Chronic lymphocytic leukemia: Problem details: - elevated WBC. Follow. May need f/u with hematology. Status: Chronic (3) Aortic stenosis, severe: Problem details: - noted on 09/21/23 TTE (was mild on 2019 TTE) - outpatient f/u with PCP and Cardiology at [place] - Monitor BP and give IVF carefully. Transfuse if Hgb less than 8. Status: Chronic (4) Type 2 diabetes mellitus: Problem details: - on Jardiance. Sliding scale insulin with Accu-Cheks. - A1C at admission 7.8 Status: Chronic (5) Atrial fibrillation: Problem details: - rate controlled, paroxysmal - continue home dose of Carvedilol, restart Eliquis tomorrow - repeat TTE 09/21/23 with formal cardiology report below: Final Impressions: 1. Normal left ventricular size, mildly increased wall thickness, mildly reduced global systolic function, calculated EF of 50 %. 2. Right ventricular cavity size is normal, global systolic RV function is normal. 3. Mildly enlarged left atrium. 4. The aortic valve is calcified, moderate to severe stenosis and moderate regurgitation. The aortic valve peak velocity is 3.4 m/s, the peak gradient is 45 mmHg, and the mean gradient is 25 mmHg. The aortic valve area is 1.19 cm?? with a dimensionless index of 0.24. The stroke volume index is 51.5 ml/m??. 5. The mitral valve is sclerotic, trace mitral regurgitation. 6. Tricuspid valve is normal. 7. Moderately increased estimated pulmonary pressures by tricuspid regurgitation velocity and right atrial pressure (56 mmHg plus RAP). 8. No pericardial effusion. Status: Chronic (6) CAD (coronary artery disease): Problem details: - h/o JAMES to mid LAD prox circumflex, OM1 01/05 - asymptomatic Status: Chronic Subjective Time Seen by Provider: 09:00 Date Seen: 07/19/24 Interval history: Denies CP or SOB. Many family members in the room. Questions about surgery deferred to Dr. Greenwood. Exam Const: Vital Signs, click to edit/add: Vital Signs - 24 hr 07/18/24 22:25 07/19/24 01:06 07/19/24 01:10 Temperature 98.1 F Pulse Rate Pulse Rate [Pulse Oximeter] 93 Respiratory Rate 18 Blood Pressure Blood Pressure [Le ft Upper Arm] 161/80 H Blood Pressure [Ri ght Arm] Pulse Oximetry 92 92 86 L Oxygen Delivery Me thod Room Air Room Air Oxygen Flow Rate 2.5 07/19/24 01:22 07/19/24 01:40 07/19/24 01:40 Temperature 98.3 F 98.1 F Pulse Rate Pulse Rate [Pulse Oximeter] 97 97 Respiratory Rate 20 18 Blood Pressure Blood Pressure [Le ft Upper Arm] Blood Pressure [Ri ght Arm] 148/65 H 148/65 H Pulse Oximetry 94 96 96 Oxygen Delivery Me thod Nasal Cannula Nasal Cannula Nasal Cannula Oxygen Flow Rate 1 2 2 07/19/24 01:40 07/19/24 02:20 07/19/24 07:30 Temperature 98.1 F 99 F Pulse Rate Pulse Rate [Pulse Oximeter] 93 71 Respiratory Rate 18 18 18 Blood Pressure Blood Pressure [Le ft Upper Arm] 161/80 H Blood Pressure [Ri ght Arm] 133/58 L Pulse Oximetry 96 96 Oxygen Delivery Me thod Nasal Cannula Nasal Cannula Oxygen Flow Rate 2 2 07/19/24 08:00 07/19/24 12:22 07/19/24 14:43 Temperature 99.1 F Pulse Rate 68 Pulse Rate [Pulse Oximeter] 64 Respiratory Rate 16 24 Blood Pressure 128/52 L Blood Pressure [Le ft Upper Arm] Blood Pressure [Ri ght Arm] 122/49 L Pulse Oximetry 96 95 100 Oxygen Delivery Me thod Nasal Cannula OxyMask Oxygen Flow Rate 2 5 07/19/24 14:48 07/19/24 14:52 07/19/24 15:00 Temperature Pulse Rate 65 64 66 Pulse Rate [Pulse Oximeter] Respiratory Rate 20 20 22 Blood Pressure 134/54 L 128/48 L 134/48 L Blood Pressure [Le ft Upper Arm] Blood Pressure [Ri ght Arm] Pulse Oximetry 100 100 95 Oxygen Delivery Me thod OxyMask OxyMask Room Air Oxygen Flow Rate 5 5 07/19/24 15:05 07/19/24 15:10 Temperature Pulse Rate 69 66 Pulse Rate [Pulse Oximeter] Respiratory Rate 22 24 Blood Pressure 128/47 L 131/47 L Blood Pressure [Le ft Upper Arm] Blood Pressure [Ri ght Arm] Pulse Oximetry 93 92 Oxygen Delivery Me thod Room Air Room Air Oxygen Flow Rate Labs Labs: Laboratory Results - last 24 hr 07/18/24 07/19/24 07/19/24 23:20 05:55 13:07 WBC 34.48 H* RBC 3.90 L Hgb 11.1 L Hct 35.4 L MCV 91 MCH 29 MCHC 31 L RDW Coeff of Ravi 15.9 H Plt Count 198 Neut % (Auto) 34.1 L Lymph % (Auto) 62.7 H [place] % (Auto) 2.3 Eos % (Auto) 0.4 Baso % (Auto) 0.1 Neut # (Auto) 11.80 H Lymph # (Auto) 21.60 H [place] # (Auto) 0.80 Eos # (Auto) 0.10 Baso # (Auto) 0.00 Abs Immat Gran (auto) 0.10 Imm/Tot Granulo (auto) 0.4 Diff Slide Review Acceptable Review INR 1.39 H Sodium 136 136 Potassium 4.5 4.5 Chloride 102 102 Carbon Dioxide 26 25 Anion Gap 8 9 BUN 31 H 30 Creatinine 1.1 1.0 Estimated Creat Clear 43.40 47.74 Estimated GFR 65 72 Glucose 190 H 148 H Calcium 8.9 8.8 Total Bilirubin 0.7 AST 25 ALT 19 Alkaline Phosphatase 99 Total Creatine Kinase 75 Total Protein 5.9 L Albumin 3.5 Blood Type O Positive Antibody Screen NEGATIVE
[2024-07-19] MEDS: ACETAMINOPHEN 325 MG TABLET 650 MG PO ×2 (17:02→22:29)
[2024-07-19] MEDS: CEFAZOLIN 1 GM in 0.9 % SODIUM CHLORIDE Mini-bag 100 ML IVPB (20:45)
[2024-07-19] MEDS: SENNOSIDES 1 TAB TABLET 2 TAB PO (20:46)
--- NOTE | 2024-07-19 23:27 | PC.NURSE ---
Addendum entered by Silvia Lloyd RN 07/19/24 23:33: Patients diastolic BP in the 30s-40s, MD aware. Original Note: End of Shift: Patient pleasant and cooperative. Afebrile. Dressing to right hip C/D/I, CMS intact. Rating pain up to 3/10 and worse with movement. PRN Dilaudid given x2. Patient tolerating regular diet with no nausea. Turn and reposition in bed. Bottom reddened with a small area that looks like it was previously open and patient states he has had and open area recently, Coloplast sacral dressing applied. O2 sats decreased to 85% on room air, 1L NC to keep sats greater than 90%.
[2024-07-20] VITALS (7 sets, daily range): BP systolic 102–141; BP diastolic 50–74; PULSE 16–80; RESP 16–20; TEMP 36.7–37.3; O2SAT 90–97
[2024-07-20] MEDS: CEFAZOLIN 1 GM in 0.9 % SODIUM CHLORIDE Mini-bag 100 ML IVPB (04:18)
[2024-07-20] MEDS: ACETAMINOPHEN 325 MG TABLET 650 MG PO ×3 (04:22→21:34)
--- NOTE | 2024-07-20 06:24 | PC.NURSE ---
Shift note ([id number]): Patient pleasant, alert and oriented. Has declined to get out of bed since surgery. Used urinal to void. VSS. Took pills whole in pudding. Some reports of pain with repositioning. Given scheduled Tylenol. Dressing to right hip clean, dry and intact.?
[2024-07-20 06:28] LABS: Hematocrit 28.5 % (37.0-53.0); Hemoglobin* 8.9 gm/dL (13.5-17.5); Mean Corpuscular HGB Conc 31 gm/dL (32-36); Mean Corpuscular Hemoglobin 28 pg (26-34); Mean Corpuscular Volume 91 fL (80-100); Platelet Count* 136 K/uL (140-440); Red Blood Count 3.13 m/uL (4.30-5.90); White Blood Count* 22.04 K/uL (4.50-11.00)
[2024-07-20 06:32] LABS: Slide Review Reflex No
[2024-07-20 06:39] LABS: Potassium* 4.8 mmol/L (3.6-5.1); Sodium* 135 mmol/L (135-149)
[2024-07-20 06:42] LABS: Blood Urea Nitrogen* 39 mg/dL (7-30); Creatinine* 1.2 mg/dL (0.5-1.5); Est. Creatinine Clearance* 39.78; Estimated Glomerular Filt Rate 58 ml/min
[2024-07-20] MEDS: SENNOSIDES 1 TAB TABLET 2 TAB PO ×2 (08:00→21:33)
[2024-07-20] MEDS: OXYCODONE 5 MG TABLET PO ×2 (08:00→11:19)
--- NOTE | 2024-07-20 09:20 | P.IMPN_ITS ---
Progress Note: A&P Assessment and plan (1) Hip fracture, right: Problem details: - s/p mechanical fall from standing - ORIF right hip, IM nail 07/19/2024, Timo - hemoglobin 8.9 postoperatively, improved to 9.3 on recheck. Okay to resume Eliquis 07/20 - continue PT/OT - food and nutrition services supervisor assisting with placement for rehab Status: Acute (2) Chronic lymphocytic leukemia: Problem details: - elevated WBC. Follow - outpatient follow-up with PCP and Hematology Status: Chronic (3) Aortic stenosis, severe: Problem details: - noted on 09/21/23 TTE (was mild on 2019 TTE) - outpatient f/u with PCP and Cardiology at [facility] - Monitor BP and give IVF carefully. Transfuse if Hgb less than 8. Status: Chronic (4) Type 2 diabetes mellitus: Problem details: - on Jardiance. Sliding scale insulin with Accu-Cheks. - A1C at admission 7.8 Status: Chronic (5) Atrial fibrillation: Problem details: - rate controlled, paroxysmal, on chronic anticoagulation - continue home dose of Carvedilol, restart Eliquis evening of 07/20 - repeat TTE 09/21/23 with formal cardiology report below: Final Impressions: 1. Normal left ventricular size, mildly increased wall thickness, mildly reduced global systolic function, calculated EF of 50 %. 2. Right ventricular cavity size is normal, global systolic RV function is normal. 3. Mildly enlarged left atrium. 4. The aortic valve is calcified, moderate to severe stenosis and moderate regurgitation. The aortic valve peak velocity is 3.4 m/s, the peak gradient is 45 mmHg, and the mean gradient is 25 mmHg. The aortic valve area is 1.19 cm?? with a dimensionless index of 0.24. The stroke volume index is 51.5 ml/m??. 5. The mitral valve is sclerotic, trace mitral regurgitation. 6. Tricuspid valve is normal. 7. Moderately increased estimated pulmonary pressures by tricuspid regurgitation velocity and right atrial pressure (56 mmHg plus RAP). 8. No pericardial effusion. Status: Chronic (6) CAD (coronary artery disease): Problem details: - h/o JAMES to mid LAD prox circumflex, OM1 01/05 - takes an aspirin daily - asymptomatic Status: Chronic (7) Anemia: Problem details: - post operative, acute blood loss. Last dose Eliquis night prior to surgery. Blood pressures stable - hgb 8.9 POD#1, recheck is 9.3 Status: Acute (8) Dysphagia: Problem details: - chronic, several previous swallow evals, monitor Status: Acute (9) Pain of right clavicle: Problem details: -s/p fall, mild, worse with ROM -clavicle xray without evidence of fracture -symptomatic cares Status: Acute (10) Essential hypertension: Problem details: -continue home medications Status: Acute Plan Awaiting placement for rehab Time Spent With Patient Total time spent: Today I spent 45 minutes seeing the patient, discussing the patient with ER staff, reviewing Expanse and Epic notes/diagnostics, discussing the care plan with our team that includes social work, PT/OT, pharmacy, RT, prison and documenting my impressions and plan in the medical record. Subjective Date Seen: 07/20/24 Interval history: Patient is seen sitting up in bed this morning. Reports feeling better post operatively. Pain currently well managed. Does report pain over the right medial clavicle which he has noticed now since falling prior to admission. Denies otherwise any other pains related to the fall. Denies headache or dizziness. Denies chest pain or shortness of breath. Tolerating orals without nausea vomiting. Hemoglobin postoperatively is 8.9. He did take Eliquis the night before surgery. We will recheck this at noon. Exam Narrative: Exam Narrative: PHYSICAL EXAM General: Pleasant, conversant, NAD HEENT: Normocephalic, atraumatic, sclera white, EOMI, oral mucosa moist Cardiovascular: RRR, S1S2. No pitting edema. Pulmonary: CTA bilaterally without rhonchi, rales, expiratory wheezes. No dyspnea on room air Neurological: Alert, answering questions appropriately, cranial nerves intact, no focal findings Extremities: No gross joint deformity or swelling. AROMI. No pain palpated over right shoulder joint, full active range of motion without pain, no bruising or swelling. Very minimal pain palpated over medial right clavicle without step- off noted. Neurovascularly intact Skin: Warm, dry. Const: Vital Signs, click to edit/add: Vital Signs - 24 hr 07/19/24 12:22 07/19/24 14:43 07/19/24 14:48 Temperature 99.1 F Pulse Rate 68 65 Pulse Rate [Pulse Oximeter] 64 Pulse Rate [Right Dorsalis Pedis] Respiratory Rate 16 24 20 Blood Pressure 128/52 L 134/54 L Blood Pressure [Ri ght Arm] 122/49 L Pulse Oximetry 95 100 100 Oxygen Delivery Me thod Nasal Cannula OxyMask OxyMask Oxygen Flow Rate 2 5 5 07/19/24 14:52 07/19/24 15:00 07/19/24 15:05 Temperature Pulse Rate 64 66 69 Pulse Rate [Pulse Oximeter] Pulse Rate [Right Dorsalis Pedis] Respiratory Rate 20 22 22 Blood Pressure 128/48 L 134/48 L 128/47 L Blood Pressure [Ri ght Arm] Pulse Oximetry 100 95 93 Oxygen Delivery Me thod OxyMask Room Air Room Air Oxygen Flow Rate 5 07/19/24 15:10 07/19/24 15:15 07/19/24 15:30 Temperature 99.1 F Pulse Rate 66 61 59 L Pulse Rate [Pulse Oximeter] Pulse Rate [Right Dorsalis Pedis] Respiratory Rate 24 16 16 Blood Pressure 131/47 L 121/40 L 122/37 L Blood Pressure [Ri ght Arm] Pulse Oximetry 92 93 94 Oxygen Delivery Me thod Room Air Nasal Cannula Nasal Cannula Oxygen Flow Rate 2 2 07/19/24 15:45 07/19/24 16:00 07/19/24 16:15 Temperature Pulse Rate 60 60 60 Pulse Rate [Pulse Oximeter] Pulse Rate [Right Dorsalis Pedis] Respiratory Rate 16 16 16 Blood Pressure 115/38 L 111/37 L 111/35 L Blood Pressure [Ri ght Arm] Pulse Oximetry 95 93 93 Oxygen Delivery Me thod Nasal Cannula Nasal Cannula Nasal Cannula Oxygen Flow Rate 2 2 1 07/19/24 16:45 07/19/24 17:15 07/19/24 18:15 Temperature 98.6 F 98.1 F Pulse Rate 61 62 62 Pulse Rate [Pulse Oximeter] Pulse Rate [Right Dorsalis Pedis] Respiratory Rate 16 16 16 Blood Pressure 120/38 L 132/51 L 126/60 Blood Pressure [Ri ght Arm] Pulse Oximetry 94 93 91 Oxygen Delivery Me thod Nasal Cannula Nasal Cannula Nasal Cannula Oxygen Flow Rate 1 1 1 07/19/24 19:15 07/19/24 20:15 07/19/24 21:15 Temperature 97.9 F 98.2 F Pulse Rate 73 61 75 Pulse Rate [Pulse Oximeter] Pulse Rate [Right Dorsalis Pedis] Respiratory Rate 16 16 16 Blood Pressure 121/41 L 107/41 L 117/43 L Blood Pressure [Ri ght Arm] Pulse Oximetry 91 91 92 Oxygen Delivery Me thod Nasal Cannula Nasal Cannula Nasal Cannula Oxygen Flow Rate 1 1 1 07/19/24 23:00 07/19/24 23:00 07/19/24 23:21 Temperature 98.2 F Pulse Rate 63 Pulse Rate [Pulse Oximeter] 63 Pulse Rate [Right Dorsalis Pedis] Respiratory Rate 19 19 Blood Pressure Blood Pressure [Ri ght Arm] 125/45 L Pulse Oximetry 94 94 Oxygen Delivery Me thod Nasal Cannula Nasal Cannula Oxygen Flow Rate 1 1 07/20/24 02:52 07/20/24 07:58 Temperature 98.2 F 98.4 F Pulse Rate Pulse Rate [Pulse Oximeter] 62 16 L Pulse Rate [Right Dorsalis Pedis] 76 Respiratory Rate 20 16 Blood Pressure Blood [facility] 125/50 L 141/59 H Pulse Oximetry 95 97 Oxygen Delivery Me thod Nasal Cannula Room Air Oxygen Flow Rate 1 Labs Labs: Laboratory Results - last 24 hr 07/19/24 07/20/24 13:07 05:52 WBC 22.04 H RBC 3.13 L Hgb 8.9 L Hct 28.5 L MCV 91 MCH 28 MCHC 31 L Plt Count 136 L Sodium 135 Potassium 4.8 BUN 39 H Creatinine 1.2 Estimated Creat Clear 39.78 Estimated GFR 58 Blood Type O Positive Antibody Screen NEGATIVE
--- NOTE | 2024-07-20 09:49 | PM.ORPN ---
Subjective Subjective Time Seen by Provider: 08:00 Date Seen: 07/20/24 Principal diagnosis: Status post right hip fracture ORIF with IM nail 07/19/2024 Interval history: Kristofer is comfortable at rest. He has not gotten out of bed since surgery. Ortho Exam Narrative Exam Narrative: Alert and oriented x3. Patient is in no acute distress. Converses without labored breathing. Hearing is grossly intact. He has not ambulated yet. Examination of the right lower extremity shows the dressings are intact. Mild edema. No significant tenderness to palpation about the thigh. No lower leg edema. Able to plantar flex and dorsiflex the ankle. CMS intact right lower extremity. He is able to fire his quads however weak due to pain. Bilateral calves are soft and nontender. Const Vital Signs, click to edit/add: Vital Signs - 24 hr 07/19/24 12:22 07/19/24 14:43 07/19/24 14:48 Temperature 99.1 F Pulse Rate 68 65 Pulse Rate [Pulse Oximeter] 64 Pulse Rate [Right Dorsalis Pedis] Respiratory Rate 16 24 20 Blood Pressure 128/52 L 134/54 L Blood Pressure [Right Arm] 122/49 L Pulse Oximetry 95 100 100 Oxygen Delivery Method Nasal Cannula OxyMask OxyMask Oxygen Flow Rate 2 5 5 07/19/24 14:52 07/19/24 15:00 07/19/24 15:05 Temperature Pulse Rate 64 66 69 Pulse Rate [Pulse Oximeter] Pulse Rate [Right Dorsalis Pedis] Respiratory Rate 20 22 22 Blood Pressure 128/48 L 134/48 L 128/47 L Blood Pressure [Right Arm] Pulse Oximetry 100 95 93 Oxygen Delivery Method OxyMask Room Air Room Air Oxygen Flow Rate 5 07/19/24 15:10 07/19/24 15:15 07/19/24 15:30 Temperature 99.1 F Pulse Rate 66 61 59 L Pulse Rate [Pulse Oximeter] Pulse Rate [Right Dorsalis Pedis] Respiratory Rate 24 16 16 Blood Pressure 131/47 L 121/40 L 122/37 L Blood Pressure [Right Arm] Pulse Oximetry 92 93 94 Oxygen Delivery Method Room Air Nasal Cannula Nasal Cannula Oxygen Flow Rate 2 2 07/19/24 15:45 07/19/24 16:00 07/19/24 16:15 Temperature Pulse Rate 60 60 60 Pulse Rate [Pulse Oximeter] Pulse Rate [Right Dorsalis Pedis] Respiratory Rate 16 16 16 Blood Pressure 115/38 L 111/37 L 111/35 L Blood Pressure [Right Arm] Pulse Oximetry 95 93 93 Oxygen Delivery Method Nasal Cannula Nasal Cannula Nasal Cannula Oxygen Flow Rate 2 2 1 07/19/24 16:45 07/19/24 17:15 07/19/24 18:15 Temperature 98.6 F 98.1 F Pulse Rate 61 62 62 Pulse Rate [Pulse Oximeter] Pulse Rate [Right Dorsalis Pedis] Respiratory Rate 16 16 16 Blood Pressure 120/38 L 132/51 L 126/60 Blood Pressure [Right Arm] Pulse Oximetry 94 93 91 Oxygen Delivery Method Nasal Cannula Nasal Cannula Nasal Cannula Oxygen Flow Rate 1 1 1 07/19/24 19:15 07/19/24 20:15 07/19/24 21:15 Temperature 97.9 F 98.2 F Pulse Rate 73 61 75 Pulse Rate [Pulse Oximeter] Pulse Rate [Right Dorsalis Pedis] Respiratory Rate 16 16 16 Blood Pressure 121/41 L 107/41 L 117/43 L Blood Pressure [Right Arm] Pulse Oximetry 91 91 92 Oxygen Delivery Method Nasal Cannula Nasal Cannula Nasal Cannula Oxygen Flow Rate 1 1 1 07/19/24 23:00 07/19/24 23:00 07/19/24 23:21 Temperature 98.2 F Pulse Rate 63 Pulse Rate [Pulse Oximeter] 63 Pulse Rate [Right Dorsalis Pedis] Respiratory Rate 19 19 Blood Pressure Blood Pressure [Right Arm] 125/45 L Pulse Oximetry 94 94 Oxygen Delivery Method Nasal Cannula Nasal Cannula Oxygen Flow Rate 1 1 07/20/24 02:52 07/20/24 07:58 Temperature 98.2 F 98.4 F Pulse Rate Pulse Rate [Pulse Oximeter] 62 16 L Pulse Rate [Right Dorsalis Pedis] 76 Respiratory Rate 20 16 Blood Pressure Blood Pressure [Right Arm] 125/50 L 141/59 H Pulse Oximetry 95 97 Oxygen Delivery Method Nasal Cannula Room Air Oxygen Flow Rate 1 Assessment and Plan Assessment and plan (1) Hip fracture, right: Problem details: ORIF right hip, IM nail 07/19/2024, Timo - associate director career services assisting with placement for rehab Status: Acute Assessment and Plan: Plan for discharge is to a shelter facility, when he meets discharge criteria. DVT prophylaxis upon discharge includes Eliquis 2.5 mg b.i.d., his usual dose Remove dressing 1 week. Observe wound and phone Orthopedics with any questions or concerns Use Ice on operative hip unrestricted. Return to clinic in 4 weeks with surgeon Minimize narcotic use. Wean off and discontinue as soon as possible. Weightbear as tolerated right lower extremity Attend PT and OT at shelter facility, then PT outpatient if needed Enrollment Services Dean consult I will send orthopedic prescriptions to pharmacy when group home site is known.
[2024-07-20] MEDS: OMEPRAZOLE 20 MG CAPSULE DR PO ×2 (09:52→21:34)
[2024-07-20] MEDS: carvediloL 25 MG TABLET PO ×2 (09:52→21:34)
[2024-07-20] MEDS: EMPAGLIFLOZIN 25 MG TABLET PO (09:53)
[2024-07-20] MEDS: SPIRONOLACTONE 25 MG TABLET PO (09:53)
[2024-07-20] MEDS: CETIRIZINE HCL 10 MG TABLET PO (09:55)
--- NOTE | 2024-07-20 10:58 | CRLHL7_ITS ---
For Patients: As a result of the Cures Act, medical imaging exams and procedure reports are released immediately into your electronic medical record. You may view this report before your referring provider. If you have questions, please contact your health care provider. Indication: Right clavicle pain, fall Technique: Two views right clavicle Comparison: None Findings: Joint space narrowing and spurring at the acromioclavicular joint. There is no fracture. Degenerative changes also at the glenohumeral joint. Intact visualized ribs. Vascular calcifications. Impression: No acute clavicle fracture. Dictated by Bertrand Gordon MD @ 07/20/2024 11:53:04 AM (Electronically Signed)
--- NOTE | 2024-07-20 12:00 | PC.NURSE ---
End of shift note: Patient was hesitant to take narcotic pain medication as he has a history of hallucinating with narcotics. Patient did agree to try 2.5mg of oxycodone. Patient did not experience any hallucinations after 4 hours and so 5mg oxycodone was administered. PIV is patent and intact. Lung sounds are diminished and oxygen saturations are in the low 90s. Continues to be on RA. Encouraged patient to use the incentive spirometer and uses this well. Patient has active bowel sounds. Patient attempted to have a BM without success. Prune juice and senna was given for this. Patient is alert and oriented. Telemetry shows NSR. Eliquis is being held for low hemoglobin. Will resume once hemoglobin is more stable. Patient is tolerating a regular diet. Has issues with swallowing and has seen [facility] for this. Patient does a good job taking his time with eating and swallowing food/pills. Patient is voiding without difficulty. Patient will likely need SNF at discharge. Continues to work with PT/OT. Family supportive. Patient did complain of right collarbone/shoulder pain. Xrays were completed and no sign of fracture. An abrasion was noticed on the back of right shoulder. Bruising on right elbow also noted. Incision on right hip is clean, dry and intact.
[2024-07-20 12:02] LABS: Hemoglobin* 9.3 gm/dL (13.5-17.5)
[2024-07-20] MEDS: INSULIN ASPART 100 UNIT/ML SUBCUT ×2 (12:52→21:34)
--- NOTE | 2024-07-20 15:46 | PC.SOCIAL ---
Discharge planning: Met with pt regarding d/c plan. Pt is in agreement with care team recommendation for a short term rehab stay prior to discharge home and is requesting placement at [facility] if available. Provided pt with list of shelter facilities and Department of Health Ratings for these facilities. Secure emailed pt's information to [facility] for evaluation for admit to rehab at discharge. personal support worker to follow up as needed.
--- NOTE | 2024-07-20 18:50 | PC.NURSE ---
The patient is pleasant and cooperative during cares, VSS on RA. O2 is in the lower 90's, educated on incentive spirometer use. The patient did not eat dinner.... Refused to be repositioned in bed and to get up. Per prior nurse the patient is moving a heavy Ax2 and a pivot. R dressing on hip is CDI, 2+ pitting edema in thigh. Voiding well. Small reddened area on buttock with Mepilex. Call light within reach. Educated on insulin important with carbohydrates. Cintia BARRERA BSN
[2024-07-20] MEDS: ATORVASTATIN CALCIUM 10 MG TABLET 20 MG PO (21:32)
[2024-07-20] MEDS: VALSARTAN 80 MG TABLET 320 MG PO (21:33)
--- NOTE | 2024-07-20 23:06 | PC.NURSE ---
19-23: Pt alert, oriented and vitally stable. Pt up heavy 2a, pivot to the commode, tolerates well. Pt had BM. Pt takes pills whole in applesauce, known dysphagia. Pt having trouble swallowing water, coughing and states feeling something in throat. O2 sats dropped to 83, pt recovered quickly, o2 sats remained above 88 otherwise. Pt requested arobika to help clear throat, pt states improvement.?Pt states pain rated 2/10. Pt in bed, appears to be resting, call light within reach. ?
[2024-07-21] VITALS (12 sets, daily range): BP systolic 105–141; BP diastolic 42–67; PULSE 65–91; RESP 16–24; TEMP 36.1–37.2; O2SAT 90–93
[2024-07-21] MEDS: OXYCODONE 5 MG TABLET PO (01:00)
[2024-07-21] MEDS: ACETAMINOPHEN 325 MG TABLET 650 MG PO ×3 (04:24→22:23)
[2024-07-21 06:56] LABS: Hematocrit 27.7 % (37.0-53.0); Hemoglobin* 8.8 gm/dL (13.5-17.5); Mean Corpuscular HGB Conc 32 gm/dL (32-36); Mean Corpuscular Hemoglobin 28 pg (26-34); Mean Corpuscular Volume 89 fL (80-100); Platelet Count* 155 K/uL (140-440); White Blood Count* 20.11 K/uL (4.50-11.00)
[2024-07-21 07:00] LABS: Slide Review Reflex No
--- NOTE | 2024-07-21 07:02 | PC.NURSE ---
Pt is alert and oriented x3. Afebrile. Pt reports 2-3-10 pain in right hip, managed with cold pack to site and scheduled and PRN medications. Pt?s right hip dressing is CDI. Pt was turned and repositioned, pt is voiding, and tolerating a regular diet. ?
[2024-07-21 07:12] LABS: Potassium* 4.6 mmol/L (3.6-5.1); Sodium* 133 mmol/L (135-149)
[2024-07-21 07:15] LABS: Blood Urea Nitrogen* 47 mg/dL (7-30); Creatinine* 1.2 mg/dL (0.5-1.5); Est. Creatinine Clearance* 39.78; Estimated Glomerular Filt Rate 58 ml/min
[2024-07-21] MEDS: SPIRONOLACTONE 25 MG TABLET PO (10:14)
[2024-07-21] MEDS: CETIRIZINE HCL 10 MG TABLET PO (10:14)
[2024-07-21] MEDS: APIXABAN 5 MG TABLET 2.5 MG PO ×2 (10:15→20:58)
[2024-07-21] MEDS: OMEPRAZOLE 20 MG CAPSULE DR PO ×2 (10:15→20:58)
[2024-07-21] MEDS: carvediloL 25 MG TABLET PO ×2 (10:15→20:58)
[2024-07-21] MEDS: SENNOSIDES 1 TAB TABLET 2 TAB PO ×2 (10:15→20:57)
[2024-07-21] MEDS: EMPAGLIFLOZIN 25 MG TABLET PO (10:16)
--- NOTE | 2024-07-21 10:40 | P.ORPN_ITS ---
Subjective Subjective Time Seen by Provider: 10:40 Date Seen: 07/21/24 Principal diagnosis: Status post right hip fracture ORIF with IM nail 07/19/2024 Interval history: Kristofer is comfortable in the recliner. He will be discharging to a correction facility. A site has not yet been found for him. He states he has been able to put a small amount of weight on the right lower extremity. He has discomfort with weight-bearing right lower extremity. Ortho Exam Narrative Exam Narrative: Alert and oriented x3. Patient is in no acute distress. Converses without labored breathing. Hearing is grossly intact. CMS intact right lower extremity. Soft tissue edema about the thigh. Bilateral calves are soft and nontender. Is able to dorsiflex and plantar flex the right ankle and great toe. He is slightly able to straight leg raise on the right leg in the seated position. Const Vital Signs, click to edit/add: Vital Signs - 24 hr 07/20/24 11:29 07/20/24 14:00 07/20/24 15:00 Temperature 99.2 F Pulse Rate 65 65 Pulse Rate [Pulse Oximeter] 75 Respiratory Rate 16 Blood Pressure [Left Arm] Blood Pressure [Right Arm] 134/55 L Pulse Oximetry 93 Oxygen Delivery Method Room Air Oxygen Flow Rate 07/20/24 15:00 07/20/24 15:00 07/20/24 19:00 Temperature 98.0 F 98.9 F Pulse Rate Pulse Rate [Pulse Oximeter] 75 80 Respiratory Rate 18 18 18 Blood Pressure [Left Arm] Blood Pressure [Right Arm] 102/55 L 119/74 Pulse Oximetry 90 90 91 Oxygen Delivery Method Room Air Room Air Room Air Oxygen Flow Rate 07/21/24 01:00 07/21/24 01:00 07/21/24 01:00 Temperature 98.1 F Pulse Rate Pulse Rate [Pulse Oximeter] 70 70 Respiratory Rate 16 16 18 Blood Pressure [Left Arm] Blood Pressure [Right Arm] 129/52 L Pulse Oximetry 93 93 Oxygen Delivery Method Room Air Room Air Oxygen Flow Rate 07/21/24 02:46 07/21/24 04:25 07/21/24 09:00 Temperature 97.9 F 97.0 F L Pulse Rate 66 Pulse Rate [Pulse Oximeter] 71 78 Respiratory Rate 18 18 Blood Pressure [Left Arm] 129/42 L Blood Pressure [Right Arm] 120/67 Pulse Oximetry 92 90 Oxygen Delivery Method Room Air Room Air Oxygen Flow Rate 0.5 Documenting provider has reviewed patient's vital signs: yes Assessment and Plan Assessment and plan (1) Hip fracture, right: Problem details: - s/p mechanical fall from standing - ORIF right hip, IM nail 07/19/2024, Timo - hemoglobin 8.9 postoperatively, improved to 9.3 on recheck. Okay to resume Eliquis 07/20 - continue PT/OT - marketing services coordinator assisting with placement for rehab Status: Acute Assessment and Plan: Plan for discharge is to correction facility when he side is available, and when they meets discharge criteria. DVT prophylaxis upon discharge his usual dose of Eliquis Remove dressing 1 week. Observe wound and phone Orthopedics with any questions or concerns Use Ice on operative hip unrestricted. Return to clinic in 4-6 weeks with surgeon Minimize narcotic use. Wean off and discontinue soon as possible. Weightbear as tolerated right lower extremity. PT and OT daily at [facility]
--- NOTE | 2024-07-21 10:41 | PM.IMPN1 ---
Progress Note: A&P Assessment and plan (1) Hip fracture, right: Problem details: - s/p mechanical fall from standing - ORIF right hip, IM nail 07/19/2024, Timo - hemoglobin 8.9 postoperatively, improved to 9.3 on recheck. Okay to resume Eliquis 07/20. Hemoglobin 8.8 on 07/21. Continue to monitor - continue PT/OT - convention services manager assisting with placement for rehab. Will discharge to [facility] on 07/22/2024 Status: Acute (2) Chronic lymphocytic leukemia: Problem details: - elevated WBC. Follow - outpatient follow-up with PCP and Hematology Status: Chronic (3) Aortic stenosis, severe: Problem details: - noted on 09/21/23 TTE (was mild on 2019 TTE) - outpatient f/u with PCP and Cardiology at [place] - Monitor BP and give IVF carefully. Transfuse if Hgb less than 8. Status: Chronic (4) Type 2 diabetes mellitus: Problem details: - on Jardiance. Sliding scale insulin with Accu-Cheks. - A1C at admission 7.8 Status: Chronic (5) Atrial fibrillation: Problem details: - rate controlled, paroxysmal, on chronic anticoagulation - continue home dose of Carvedilol, restart Eliquis evening of 07/20 - repeat TTE 09/21/23 with formal cardiology report below: Final Impressions: 1. Normal left ventricular size, mildly increased wall thickness, mildly reduced global systolic function, calculated EF of 50 %. 2. Right ventricular cavity size is normal, global systolic RV function is normal. 3. Mildly enlarged left atrium. 4. The aortic valve is calcified, moderate to severe stenosis and moderate regurgitation. The aortic valve peak velocity is 3.4 m/s, the peak gradient is 45 mmHg, and the mean gradient is 25 mmHg. The aortic valve area is 1.19 cm?? with a dimensionless index of 0.24. The stroke volume index is 51.5 ml/m??. 5. The mitral valve is sclerotic, trace mitral regurgitation. 6. Tricuspid valve is normal. 7. Moderately increased estimated pulmonary pressures by tricuspid regurgitation velocity and right atrial pressure (56 mmHg plus RAP). 8. No pericardial effusion. Status: Chronic (6) CAD (coronary artery disease): Problem details: - h/o JAMES to mid LAD prox circumflex, OM1 01/05 - takes an aspirin daily - asymptomatic Status: Chronic (7) Anemia: Problem details: - post operative, acute blood loss. Last dose Eliquis night prior to surgery. Blood pressures stable - hgb 8.9 POD#1, recheck is 9.3 - 8.8 POD#2 Status: Acute (8) Dysphagia: Problem details: - chronic, several previous swallow evals, monitor - Video swallow and therapy recommendations from 04/08/24 as follows: 1. DIET: IDDSI Level 6, soft and bite sized solids, thin liquids 2. MEDICATIONS: No restrictions 3. SWALLOW PRECAUTIONS: Sit upright, small sips and bites, swallow 2x per bite, alternate solids and liquids Status: Acute (9) Pain of right clavicle: Problem details: -s/p fall, mild, worse with ROM -clavicle xray without evidence of fracture -symptomatic cares Status: Acute (10) Essential hypertension: Problem details: -continue home medications Status: Acute Plan To [facility] on 07/22 Time Spent With Patient Total time spent: Today I spent 45 minutes seeing the patient, discussing the patient with ER staff, reviewing Expanse and Epic notes/diagnostics, discussing the care plan with our team that includes social work, PT/OT, pharmacy, RT, alf and documenting my impressions and plan in the medical record. Subjective Date Seen: 07/21/24 Interval history: Patient is seen sitting up in a chair this morning, daughter at bedside. Reports feeling pretty good other than not having slept well last night. Pain is currently adequately managed. Denies headache or dizziness. Denies chest pain or shortness of breath. Tolerating orals without nausea vomiting. Participating in therapies. Awaiting placement. Exam Narrative: Exam Narrative: PHYSICAL EXAM General: Pleasant, conversant, NAD HEENT: Normocephalic, atraumatic, sclera white, EOMI, oral mucosa moist Cardiovascular: RRR, S1S2. No pitting edema. Pulmonary: CTA bilaterally without rhonchi, rales, expiratory wheezes. No dyspnea on room air Neurological: Alert, answering questions appropriately, cranial nerves intact, no focal findings Extremities: No gross joint deformity or swelling. Postoperative dressing in place. Neurovascularly intact Skin: Warm, dry. Const: Vital Signs, click to edit/add: Vital Signs - 24 hr 07/20/24 11:29 07/20/24 14:00 07/20/24 15:00 Temperature 99.2 F Pulse Rate 65 65 Pulse Rate [Pulse Oximeter] 75 Respiratory Rate 16 Blood Pressure [Le ft Arm] Blood Pressure [Ri ght Arm] 134/55 L Pulse Oximetry 93 Oxygen Delivery Me thod Room Air Oxygen Flow Rate 07/20/24 15:00 07/20/24 15:00 07/20/24 19:00 Temperature 98.0 F 98.9 F Pulse Rate Pulse Rate [Pulse Oximeter] 75 80 Respiratory Rate 18 18 18 Blood Pressure [Le ft Arm] Blood Pressure [Ri ght Arm] 102/55 L 119/74 Pulse Oximetry 90 90 91 Oxygen Delivery Me thod Room Air Room Air Room Air Oxygen Flow Rate 07/21/24 01:00 07/21/24 01:00 07/21/24 01:00 Temperature 98.1 F Pulse Rate Pulse Rate [Pulse Oximeter] 70 70 Respiratory Rate 16 16 18 Blood Pressure [Le ft Arm] Blood Pressure [Ri ght Arm] 129/52 L Pulse Oximetry 93 93 Oxygen Delivery Me thod Room Air Room Air Oxygen Flow Rate 07/21/24 02:46 07/21/24 04:25 07/21/24 09:00 Temperature 97.9 F 97.0 F L Pulse Rate 66 Pulse Rate [Pulse Oximeter] 71 78 Respiratory Rate 18 18 Blood Pressure [Le ft Arm] 129/42 L Blood Pressure [Ri ght Arm] 120/67 Pulse Oximetry 92 90 Oxygen Delivery Me thod Room Air Room Air Oxygen Flow Rate 0.5 Labs Labs: Laboratory Results - last 24 hr 07/20/24 07/21/24 11:57 06:15 WBC 20.11 H RBC 3.10 L Hgb 9.3 L 8.8 L Hct 27.7 L MCV 89 MCH 28 MCHC 32 Plt Count 155 Sodium 133 L Potassium 4.6 BUN 47 H Creatinine 1.2 Estimated Creat Clear 39.78 Estimated GFR 58
--- NOTE | 2024-07-21 13:40 | PC.SOCIAL ---
Addendum entered by DENIZ Pritchard 07/21/24 16:40: Discharge planning: binding bench worker checked back in with the pt this afternoon and was able to talk to him about non-emergent transportation, as he was more awake this afternoon. Pt would like to take non-emergent EMS and was fine with paying the cost of $113.00 if his insurance does not cover it. [facility] is about three miles from the hospital([phone]). Pt signed the non-emergent EMS transportation form and the form was given to the charge nurse on duty. Non-emergent EMS is scheduled for a 10:00am pick-up time. Social work to follow-up as needed. Original Note: Discharge planning: Pt was accepted to [facility] for short-term rehab on Thursday morning. The room is a private room/private bathroom. The pt will accept the room. binding bench worker did talk to pt's daughter, Adriane, about transportation for the pt. Pt's daughter stated that she would feel more comfortable with the pt taking non-emergent EMS due to his hip fracture and for safety purposes. binding bench worker explained that there is a cost for the non-emergent EMS([phone]= [phone]) unless pt's insurance may cover the cost, but that is not known at this time. Pt's daughter was agreeable to the cost of transportation, but this manager social will also confirm the cost with her again later this afternoon. Social work to follow-up as needed.
--- NOTE | 2024-07-21 16:13 | PM.DS1 ---
DS: Providers Provider Date Seen: 07/22/24 Date of admission: 07/19/24 02:46 Primary care physician: Luiz Bullock MD Admitting Clinician: Everardo Mayberry MD Consults: 07/19/24 15:31 Consult to Occupational Therapy [CONS] Routine Comment: Reason(s) for OT Consult:: Evaluate and Treat Any Restrictions?:: See Comment Comment: evaluate and treat Consult to Physical Therapy [CONS] Routine Comment: Reason(s) for PT Consult:: Evaluate and Treat Any Restrictions?:: See Comment Comment: Weightbear as tolerates right lower extremity. Consult to Engine Cleaner [CONS] Routine Comment: Reason for Consult:: Discharge Planning Needs Attending Physician on discharge: BRINDA Vasquez, PA-C [facility] Hospitalist Date of Discharge: 07/22/24 DS: Diagnosis Discharge Diagnosis (1) Hip fracture, right: Status: Acute Problem details: - s/p mechanical fall from standing - ORIF right hip, IM nail 07/19/2024, Timo - hemoglobin 8.9 postoperatively, improved to 9.3 on recheck. Okay to resume Eliquis 07/20. Hemoglobin 8.8 on 07/21. Continue to monitor - continue PT/OT - environmental services coordinator assisting with placement for rehab. Will discharge to [facility] on 07/22/2024 (2) Chronic lymphocytic leukemia: Status: Chronic Problem details: - elevated WBC. Follow - outpatient follow-up with PCP and Hematology (3) Aortic stenosis, severe: Status: Chronic Problem details: - noted on 09/21/23 TTE (was mild on 2019 TTE) - outpatient f/u with PCP and Cardiology at [place] - Monitor BP and give IVF carefully. Transfuse if Hgb less than 8. (4) Type 2 diabetes mellitus: Status: Chronic Problem details: - on Jardiance. Sliding scale insulin with Accu-Cheks. - A1C at admission 7.8 (5) Atrial fibrillation: Status: Chronic Problem details: - rate controlled, paroxysmal, on chronic anticoagulation - continue home dose of Carvedilol, restart Eliquis evening of 07/20 - repeat TTE 09/21/23 with formal cardiology report below: Final Impressions: 1. Normal left ventricular size, mildly increased wall thickness, mildly reduced global systolic function, calculated EF of 50 %. 2. Right ventricular cavity size is normal, global systolic RV function is normal. 3. Mildly enlarged left atrium. 4. The aortic valve is calcified, moderate to severe stenosis and moderate regurgitation. The aortic valve peak velocity is 3.4 m/s, the peak gradient is 45 mmHg, and the mean gradient is 25 mmHg. The aortic valve area is 1.19 cm?? with a dimensionless index of 0.24. The stroke volume index is 51.5 ml/m??. 5. The mitral valve is sclerotic, trace mitral regurgitation. 6. Tricuspid valve is normal. 7. Moderately increased estimated pulmonary pressures by tricuspid regurgitation velocity and right atrial pressure (56 mmHg plus RAP). 8. No pericardial effusion. (6) CAD (coronary artery disease): Status: Chronic Problem details: - h/o JAMES to mid LAD prox circumflex, OM1 01/05 - takes an aspirin daily - asymptomatic (7) Anemia: Status: Acute Problem details: - post operative, acute blood loss. Last dose Eliquis night prior to surgery. Blood pressures stable - hgb 8.9 POD#1, recheck is 9.3 - 8.8 POD#2 (8) Dysphagia: Status: Acute Problem details: - chronic, several previous swallow evals, monitor - Video swallow and therapy recommendations from 04/08/24 as follows: 1. DIET: IDDSI Level 6, soft and bite sized solids, thin liquids 2. MEDICATIONS: No restrictions 3. SWALLOW PRECAUTIONS: Sit upright, small sips and bites, swallow 2x per bite, alternate solids and liquids (9) Pain of right clavicle: Status: Acute Problem details: -s/p fall, mild, worse with ROM -clavicle xray without evidence of fracture -symptomatic cares (10) Essential hypertension: Status: Acute Problem details: -continue home medications DS: Summary Hospital Course Hospital Course: [age] year old male was admitted to the medical floor for surgical management hip fracture status post fall. Course of care and details as noted above. Remainder of chronic medical comorbidities were monitored and managed with home medications. Status at Discharge Functional status at discharge: uses cane/walker Overall status at discharge: patient is progressing back to baseline Time Spent with Patient Time attestation: Total time spent providing and/or coordinating discharge services: Time spent: Greater than 30 minutes Exam Narrative: Exam Narrative: PHYSICAL EXAM General: Pleasant, conversant, NAD Cardiovascular: RRR Pulmonary: No dyspnea Neurological: Alert, answering questions appropriately Skin: Warm, dry. Const: Vital Signs, click to edit/add: Vital Signs - 24 hr 07/20/24 19:00 07/21/24 01:00 07/21/24 01:00 Temperature 98.9 F Pulse Rate Pulse Rate [Pulse Oximeter] 80 70 Respiratory Rate 18 16 16 Blood Pressure [Le ft Arm] Blood Pressure [Ri ght Arm] 119/74 Pulse Oximetry 91 93 Oxygen Delivery Me thod Room Air Room Air Oxygen Flow Rate 07/21/24 01:00 07/21/24 02:46 07/21/24 04:25 Temperature 98.1 F 97.9 F Pulse Rate 66 Pulse Rate [Pulse Oximeter] 70 71 Respiratory Rate 18 18 Blood Pressure [Le ft Arm] Blood Pressure [Ri ght Arm] 129/52 L 120/67 Pulse Oximetry 93 92 Oxygen Delivery Me thod Room Air Room Air Oxygen Flow Rate 0.5 07/21/24 09:00 07/21/24 09:30 07/21/24 12:30 Temperature 97.0 F L 97.5 F L Pulse Rate Pulse Rate [Pulse Oximeter] 78 66 Respiratory Rate 18 18 18 Blood Pressure [Le ft Arm] 129/42 L Blood Pressure [Ri ght Arm] 105/67 Pulse Oximetry 90 90 91 Oxygen Delivery Me thod Room Air Room Air Room Air Oxygen Flow Rate DS: Data Data Completed and Pending Labs on day of discharge: Labs from last 24 hours 07/21/24 06:15 WBC 20.11 H RBC 3.10 L Hgb 8.8 L Hct 27.7 L MCV 89 MCH 28 MCHC 32 Plt Count 155 Sodium 133 L Potassium 4.6 BUN 47 H Creatinine 1.2 Estimated Creat Clear 39.78 Estimated GFR 58 Imaging Clavicle x-ray: Attestation: I have reviewed the pertinent imaging results. Radiologist's impression: Findings: Joint space narrowing and spurring at the acromioclavicular joint. There is no fracture. Degenerative changes also at the glenohumeral joint. Intact visualized ribs. Vascular calcifications. Impression: No acute clavicle fracture. Chest x-ray: Attestation: I have reviewed the pertinent imaging results. Radiologist's impression: Unchanged cardiomediastinal contours. Mild streaky basilar opacities, which are nonspecific, but most suggestive of atelectasis. No sign of pleural effusion. No pneumothorax. No evident acute fractures. IMPRESSION: No evident acute fractures. Hip x-ray: Attestation: I have reviewed the pertinent imaging results. Radiologist's impression: Bones: Alignment is normal. No evident acute fracture. Joint spaces: Mild to moderate degenerative changes. Soft tissues: Unremarkable. Impression: No evident acute hip fracture. Hip CT: Attestation: I have reviewed the pertinent imaging results. Radiologist's impression: Acute, comminuted, slightly displaced, and impacted basicervical/intertrochanteric right proximal femur fracture. No dislocation. No other fracture identified. No underlying osseous lesion. Atherosclerotic disease. No free fluid in the pelvis. Diverticulosis. Mild anasarca. Impression: Acute, comminuted, slightly displaced, and impacted basicervical/intertrochanteric right proximal femur fracture. Lumbar spine x-ray: Attestation: I have reviewed the pertinent imaging results. Radiologist's impression: Bones: Alignment is normal. No evident acute fracture, though overlying stool and soft tissues limit evaluation. Joints: Multilevel degenerative changes of the disc spaces and facets. Soft tissues: No acute findings. IMPRESSION: No evident acute fracture. CT scan - head: Attestation: I have reviewed the pertinent imaging results. Radiologist's impression: Mild diffuse parenchymal volume loss with commensurate ex vacuo dilatation of the ventricles and sulci. No sign of mass, hemorrhage, or midline shift. Mild mucosal thickening in the inferior maxillary sinuses. The visualized orbits are grossly unremarkable. No skull fractures. Mild posterior scalp swelling. IMPRESSION: No acute intracranial findings. Discharge Plan Discharge Disposition: [facility] Discharge Location: [facility] Date of Admission: 07/19/24 02:46 Attending Provider on Discharge: Odette Benitez Consulting Providers: Azeem Greenwood; Deborah Mays Primary Care Provider: Luiz Bullock Condition: Unchanged Anticipated Discharge Date/Time: 07/22/24 10:00 Discharge Medications: Continued cetirizine 10 mg tablet 10 mg PO DAILY albuterol sulfate 90 mcg/actuation HFA aerosol inhaler 2 inh INHALATION Q4H PRN carvedilol 25 mg tablet 25 mg PO BID atorvastatin 20 mg tablet 20 mg PO QPM spironolactone 25 mg tablet 25 mg PO DAILY valsartan 320 mg tablet 320 mg PO HS omeprazole 20 mg capsule,delayed release(DR/EC) 20 mg PO BID aspirin 81 mg tablet,chewable 1 tab PO DAILY Eliquis 2.5 mg tablet 2.5 mg PO BID Jardiance 25 mg tablet 25 mg PO DAILY ascorbic acid (vitamin C) 500 mg tablet 500 mg PO DAILY vitamin E mixed 400 unit capsule 400 unit PO DAILY Additional Instructions: Staff Please make appointment for Kristofer with Dr. Greenwood in 4-6 weeks Activity Level: Weight Bearing as Tolerated Activity Detail: Occupational therapy and Physical therapy daily at group home facility. Then physical therapy as an outpatient as needed. Discharge Diet: Diabetic Follow Up Appointments: Luiz Bullock MD [Primary Care Provider] - Azeem Greenwood MD [Staff Physician] - (4-6 weeks) Forms: [employer] Info Instructions Admit to: SNF Discharge Potential: Good Length of Stay: <30 days Can use facility standing orders?: Yes Code Status: Full Code TEDs: Bilateral Knee Rehab Potential: Good Therapy: Physical Therapy and Occupational Therapy Therapy Orders: Evaluate and Treat Oxygen: No Urinary Catheter: No Lab Orders: Recheck hgb 07/25/24 Orders are good >30 days: No Signature: BRINDA Vasquez, PA-[facility] Hospitalist
[2024-07-21] MEDS: VALSARTAN 80 MG TABLET 320 MG PO (20:58)
[2024-07-21] MEDS: ATORVASTATIN CALCIUM 10 MG TABLET 20 MG PO (20:58)
[2024-07-21] MEDS: INSULIN ASPART 100 UNIT/ML SUBCUT (20:59)
[2024-07-22] VITALS (18 sets, daily range): BP systolic 92–130; BP diastolic 33–61; PULSE 63–78; RESP 18–24; TEMP 31.7–37; O2SAT 90–97
[2024-07-22] MEDS: ACETAMINOPHEN 325 MG TABLET 650 MG PO ×4 (04:19→21:46)
[2024-07-22 06:38] LABS: Hematocrit 26.4 % (37.0-53.0); Hemoglobin* 8.4 gm/dL (13.5-17.5); Mean Corpuscular HGB Conc 32 gm/dL (32-36); Mean Corpuscular Hemoglobin 28 pg (26-34); Mean Corpuscular Volume 89 fL (80-100); Platelet Count* 161 K/uL (140-440); Red Blood Count 2.97 m/uL (4.30-5.90); White Blood Count* 23.74 K/uL (4.50-11.00)
[2024-07-22 06:45] LABS: Slide Review Reflex No
[2024-07-22 06:53] LABS: Potassium* 4.4 mmol/L (3.6-5.1); Sodium* 133 mmol/L (135-149)
[2024-07-22 06:56] LABS: Blood Urea Nitrogen* 51 mg/dL (7-30); Creatinine* 1.3 mg/dL (0.5-1.5); Est. Creatinine Clearance* 36.72; Estimated Glomerular Filt Rate 53 ml/min
--- NOTE | 2024-07-22 07:06 | PC.NURSE ---
19-: pleasant and cooperative. T&R. Pt rates no pain at rest, pt notably in pain with repositions, facial grimacing & holding breath. Pt called in the night to state he was sweating, requested his temp be taken ? afebrile throughout shift. Removed heavy blankets. Pt using aerobika and IS frequently, dry nonproductive cough noted. LS clear. Pt refused to wear CPAP at HS, O2 spot checks >90% on RA. Covid antigen swab sent to lab. Pt to d/c today to [facility] nonemergent ems.
[2024-07-22 07:23] LABS: SARS Antigen* Negative (Negative)
[2024-07-22] MEDS: APIXABAN 5 MG TABLET 2.5 MG PO (08:35)
[2024-07-22] MEDS: carvediloL 25 MG TABLET PO ×2 (08:35→21:27)
[2024-07-22] MEDS: EMPAGLIFLOZIN 25 MG TABLET PO (08:36)
[2024-07-22] MEDS: CETIRIZINE HCL 10 MG TABLET PO (08:36)
[2024-07-22] MEDS: SPIRONOLACTONE 25 MG TABLET PO (08:36)
[2024-07-22] MEDS: OMEPRAZOLE 20 MG CAPSULE DR PO ×2 (08:36→21:27)
[2024-07-22] MEDS: SENNOSIDES 1 TAB TABLET 2 TAB PO ×2 (10:29→21:26)
--- NOTE | 2024-07-22 10:46 | PC.SOCIAL ---
Discharge planning: Pt's discharge to [facility] was canceled due to pt having low blood pressure and other medical issues going on. The plan will be for the pt to discharge to [facility] on Thursday if all is well medically. Social work to follow-up as needed.
[2024-07-22 11:43] LABS: Procalcitonin* 0.78 ng/mL (<0.50)
[2024-07-22] MEDS: INSULIN ASPART 100 UNIT/ML SUBCUT ×3 (12:19→21:27)
--- NOTE | 2024-07-22 13:09 | PM.IMPN1 ---
Progress Note: A&P Assessment and plan (1) Hospital-acquired pneumonia: Problem details: -postoperative, complicated by history of dysphagia likely aspirated -weakness, productive cough, no hypoxia, afebrile -CXR shows Mild to moderate patchy bilateral airspace opacities may represent pulmonary edema, atypical infection, or inflammation. -leukocytosis trending up (though history of CLL), procalcitonin 0.78 -start Zosyn -encouraged regular use of aerobika, incentive spirometry Status: Acute (2) Hip fracture, right: Problem details: - s/p mechanical fall from standing - ORIF right hip, IM nail 07/19/2024, Dr. Greenwood - continue PT/OT - creative services writer assisting with placement for rehab. Will discharge to [facility] on 07/22/2024 - cancel given new hospital-acquired pneumonia, weakness Status: Acute (3) Chronic lymphocytic leukemia: Problem details: - elevated WBC. Follow - outpatient follow-up with PCP and Hematology Status: Chronic (4) Aortic stenosis, severe: Problem details: - noted on 09/21/23 TTE (was mild on 2019 TTE) - outpatient f/u with PCP and Cardiology at [place] - Monitor BP and give IVF carefully. Transfuse if Hgb less than 8 - transfused at 8.4 POD# 3 Status: Chronic (5) Type 2 diabetes mellitus: Problem details: - on Jardiance. Sliding scale insulin with Accu-Cheks. - A1C at admission 7.8 Status: Chronic (6) Atrial fibrillation: Problem details: - rate controlled, paroxysmal, on chronic anticoagulation - continue home dose of Carvedilol, restart Eliquis evening of 07/20 - repeat TTE 09/21/23 with formal cardiology report below: Final Impressions: 1. Normal left ventricular size, mildly increased wall thickness, mildly reduced global systolic function, calculated EF of 50 %. 2. Right ventricular cavity size is normal, global systolic RV function is normal. 3. Mildly enlarged left atrium. 4. The aortic valve is calcified, moderate to severe stenosis and moderate regurgitation. The aortic valve peak velocity is 3.4 m/s, the peak gradient is 45 mmHg, and the mean gradient is 25 mmHg. The aortic valve area is 1.19 cm?? with a dimensionless index of 0.24. The stroke volume index is 51.5 ml/m??. 5. The mitral valve is sclerotic, trace mitral regurgitation. 6. Tricuspid valve is normal. 7. Moderately increased estimated pulmonary pressures by tricuspid regurgitation velocity and right atrial pressure (56 mmHg plus RAP). 8. No pericardial effusion. Status: Chronic (7) CAD (coronary artery disease): Problem details: - h/o JAMES to mid LAD prox circumflex, OM1 01/05 - takes an aspirin daily - asymptomatic Status: Chronic (8) Anemia: Problem details: - post operative, acute blood loss. Last dose Eliquis night prior to surgery. Blood pressures stable - hemoglobin 8.9 postoperatively, improved to 9.3 on recheck. Okay to resume Eliquis 07/20. Hemoglobin 8.8 on 07/21. Continue to monitor - 8.8 POD#2 -> 8.4 on 07/22. Given comorbidities, symptomatic, will transfuse 1 unit PRBC. Recheck hemoglobin. No obvious hematoma. Consider further imaging to look for bleed if hgb does not stablize. Status: Acute (9) Dysphagia: Problem details: - chronic, several previous swallow evals, monitor - Video swallow and therapy recommendations from 04/08/24 as follows: 1. DIET: IDDSI Level 6, soft and bite sized solids, thin liquids 2. MEDICATIONS: No restrictions 3. SWALLOW PRECAUTIONS: Sit upright, small sips and bites, swallow 2x per bite, alternate solids and liquids Status: Acute (10) Pain of right clavicle: Problem details: -s/p fall, mild, worse with ROM -clavicle xray without evidence of fracture -symptomatic cares Status: Acute (11) Essential hypertension: Problem details: -continue home medications. Spironolactone reduced to 12.5 mg approximately 2 weeks ago by Cardiology. He has received 25 mg while in the hospital which may be contributing to his SBP < 100. This has been corrected. Receiving 1 unit PRBC which will help as well. Continue to monitor. Status: Acute Time Spent With Patient Total time spent: Today I spent 60 minutes seeing the patient, discussing the patient with ER staff, reviewing Expanse and Epic notes/diagnostics, discussing the care plan with our team that includes social work, PT/OT, pharmacy, RT, jail and documenting my impressions and plan in the medical record. Subjective Date Seen: 07/22/24 Interval history: Patient is seen today with another daughter at bedside. Not feeling as well today. Feels weak. Blood pressures have been lower, systolics < 100. Denies headache or dizziness. Denies chest pain or shortness of breath. Has been coughing up yellow phlegm the past 24 hours. Uses certrizine for PND which has not been restarted post operatively. Was intubated for surgical procedure as he was not safe for a spinal while on Eliquis. Has a history of dysphagia. Admits he does not always keep is chin up in follow instructions for thin liquids. Has been afebrile otherwise. No nausea or vomiting. Exam Narrative: Exam Narrative: PHYSICAL EXAM General: Pleasant, conversant, NAD - appears more tired this morning. Cardiovascular: RRR, S1S2. No pitting edema. Pulmonary: CTA bilaterally without rhonchi, rales, expiratory wheezes. No dyspnea on room air Neurological: Alert, answering questions appropriately, cranial nerves intact, no focal findings Extremities: No gross joint deformity or swelling. Postoperative dressing in place. RLE soft without palpable hematoma, bruising. Neurovascularly intact Skin: Warm, dry. Const: Vital Signs, click to edit/add: Vital Signs - 24 hr 07/21/24 15:00 07/21/24 15:00 07/21/24 15:00 Temperature 98.9 F Pulse Rate 73 Pulse Rate [Pulse Oximeter] 76 Respiratory Rate 24 Blood Pressure [Ri ght Arm] 132/50 L Pulse Oximetry 93 [facility] 07/21/24 20:30 07/21/24 22:47 07/21/24 22:55 Temperature 98.9 F Pulse Rate 76 Pulse Rate [Pulse Oximeter] 91 Respiratory Rate 24 20 Blood Pressure [Ri ght Arm] 141/58 H Pulse Oximetry 93 Oxygen Delivery Wi thod Room Air 07/21/24 23:00 07/21/24 23:00 07/22/24 00:42 Temperature 97.6 F Pulse Rate Pulse Rate [Pulse Oximeter] 82 77 Respiratory Rate 20 20 Blood Pressure [Ri ght Arm] 120/45 L Pulse Oximetry 92 92 90 [facility] 07/22/24 02:46 07/22/24 07:00 07/22/24 09:30 Temperature 98.3 F Pulse Rate Pulse Rate [Pulse Oximeter] 72 76 Respiratory Rate 22 18 Blood Pressure [Ri ght Arm] 113/47 L 92/42 L Pulse Oximetry 91 94 95 Oxygen Delivery Me thod Room Air Room Air Room Air 07/22/24 09:30 Temperature Pulse Rate Pulse Rate [Pulse Oximeter] 78 Respiratory Rate Blood Pressure [Ri ght Arm] 95/39 L Pulse Oximetry 92 Oxygen Delivery Me thod Room Air Labs Labs: Laboratory Results - last 24 hr 07/19/24 07/22/24 07/22/24 13:07 06:00 06:05 WBC 23.74 H RBC 2.97 L Hgb 8.4 L Hct 26.4 L MCV 89 MCH 28 MCHC 32 Plt Count 161 Sodium 133 L Potassium 4.4 BUN 51 H Creatinine 1.3 Estimated Creat Clear 36.72 Estimated GFR 53 Procalcitonin 0.78 H SARS-CoV-2 Ag (Rapid) Negative Lab Acknowledgement Blood Type O Positive Antibody Screen NEGATIVE Crossmatch ([facility]) See Detail 07/22/24 11:07 WBC RBC Hgb Hct MCV MCH MCHC Plt Count Sodium Potassium BUN Creatinine Estimated Creat Clear Estimated GFR Procalcitonin SARS-CoV-2 Ag (Rapid) Lab Acknowledgement Test Added Blood Type Antibody Screen Crossmatch ([facility])
[2024-07-22] MEDS: PIPERACILLIN/TAZOBACTAM 3.375 GM in 0.9 % SODIUM CHLORIDE Mini-bag 100 ML IVPB ×2 (16:54→23:04)
[2024-07-22 17:22] LABS: Hemoglobin* 10.2 gm/dL (13.5-17.5)
--- NOTE | 2024-07-22 19:21 | PC.NURSE ---
End of Shift: Patient pleasant and cooperative, A&O. Patient had some soft BP's this morning, see chart, MD notified. 1 Unit packed RBCs transfused, no reactions noted. Patient reported pain on tailbone managed with scheduled medication, see MAR. A1 with walker and gait belt. Dressing to rt hip C/D/I. Takes pills whole with applesauce. Tolerating regular diet.
[2024-07-22] MEDS: MAG HYDROX/ALUMINUM HYD/SIMETH 30 ML ORAL.SUSP PO (20:02)
[2024-07-22] MEDS: VALSARTAN 80 MG TABLET 320 MG PO (21:26)
[2024-07-22] MEDS: ATORVASTATIN CALCIUM 10 MG TABLET 20 MG PO (21:26)
--- NOTE | 2024-07-22 23:37 | P.IMPN_ITS ---
Progress Note: A&P Assessment and plan (1) Hip fracture, right: Problem details: - s/p mechanical fall from standing - ORIF right hip, IM nail 07/19/2024, Dr. Greenwood - continue PT/OT - financial services assistant assisting with placement for rehab. Will discharge to [facility] on 07/22/2024 - cancel given new hospital-acquired pneumonia, weakness Status: Acute (2) Chronic lymphocytic leukemia: Problem details: - elevated WBC. Follow - outpatient follow-up with PCP and Hematology Status: Chronic (3) Hospital-acquired pneumonia: Problem details: -postoperative, complicated by history of dysphagia likely aspirated -weakness, productive cough, no hypoxia, afebrile. Started on Zosyn but clinically has not appear to have pneumonia so Zosyn discontinued -CXR shows Mild to moderate patchy bilateral airspace opacities may represent pulmonary edema, atypical infection, or inflammation. Possibly this is chronic finding on chest x-ray. -leukocytosis trending up (though history of CLL), procalcitonin 0.78 Status: Acute (4) Essential hypertension: Problem details: -continue home medications. Spironolactone reduced to 12.5 mg approximately 2 weeks ago by Cardiology. He has received 25 mg while in the hospital which may be contributing to his SBP < 100. This has been corrected. Receiving 1 unit PRBC which will help as well. Continue to monitor. Status: Acute (5) Dysphagia: Problem details: - chronic, several previous swallow evals, monitor - Video swallow and therapy recommendations from 04/08/24 as follows: 1. DIET: IDDSI Level 6, soft and bite sized solids, thin liquids 2. MEDICATIONS: No restrictions 3. SWALLOW PRECAUTIONS: Sit upright, small sips and bites, swallow 2x per bite, alternate solids and liquids Will try thickening liquids as patient feels like he is coughing and choking after drinking thin liquids. Status: Acute (6) Anemia: Problem details: - post operative, acute blood loss. Last dose Eliquis night prior to surgery. Blood pressures stable - hemoglobin 8.9 postoperatively, improved to 9.3 on recheck. Okay to resume Eliquis 07/20. Hemoglobin 8.8 on 07/21. Continue to monitor - 8.8 POD#2 -> 8.4 on 07/22. Given comorbidities, symptomatic, will transfuse 1 unit PRBC. Recheck hemoglobin. No obvious hematoma. Consider further imaging to look for bleed if hgb does not stablize. Status: Acute (7) Shoulder pain, right: Problem details: - s/p fall - xray ordered - tylenol, lidocaine patch? Status: Ruled-out (8) Atrial fibrillation: Problem details: - rate controlled, paroxysmal, on chronic anticoagulation - continue home dose of Carvedilol, restart Eliquis evening of 07/20 - repeat TTE 09/21/23 with formal cardiology report below: Final Impressions: 1. Normal left ventricular size, mildly increased wall thickness, mildly reduced global systolic function, calculated EF of 50 %. 2. Right ventricular cavity size is normal, global systolic RV function is normal. 3. Mildly enlarged left atrium. 4. The aortic valve is calcified, moderate to severe stenosis and moderate regurgitation. The aortic valve peak velocity is 3.4 m/s, the peak gradient is 45 mmHg, and the mean gradient is 25 mmHg. The aortic valve area is 1.19 cm?? with a dimensionless index of 0.24. The stroke volume index is 51.5 ml/m??. 5. The mitral valve is sclerotic, trace mitral regurgitation. 6. Tricuspid valve is normal. 7. Moderately increased estimated pulmonary pressures by tricuspid regurgitatio n velocity and right atrial pressure (56 mmHg plus RAP). 8. No pericardial effusion. Status: Chronic (9) Type 2 diabetes mellitus: Problem details: - on Jardiance. Sliding scale insulin with Accu-Cheks. - A1C at admission 7.8 Status: Chronic (10) Aortic stenosis, severe: Problem details: - noted on 09/21/23 TTE (was mild on 2019 TTE) - outpatient f/u with PCP and Cardiology at [place] - Monitor BP and give IVF carefully. Transfuse if Hgb less than 8 - transfused at 8.4 POD# 3 Status: Chronic (11) CAD (coronary artery disease): Problem details: - h/o JAMES to mid LAD prox circumflex, OM1 01/05 - takes an aspirin daily - asymptomatic Status: Chronic (12) CLL (chronic lymphocytic leukemia): Problem details: - quiescent Status: Chronic (13) Hypotension: Problem details: Has had relatively low blood pressures even prior to this hospitalization. Blood pressure medications/heart failure medications, carvedilol, spironolactone and valsartan reviewed. Recommend reducing valsartan from 320-160 mg daily to address relatively low blood pressures. Status: Acute Plan Continue in hospital for evaluation management of above medical problems. Anticipate discharge to group home facility for ongoing management. Total time spent today is 60 minutes in reviewing past records and outside records, discussing with patient and daughter and other providers ongoing management of postoperative complications, aspiration, reflux, pneumonia, disability, hypo/hypertension. Subjective Date Seen: 07/23/24 Interval history: Admission HPI: Kristofer Garcia is seen as an Interactive Telehealth visit. Kristofer Garcia is a 88 year old male who is Presents to hospital for follow-up. Patient stated that he was doing his laundry when he lost his balance. He denied any loss of consciousness. He denied lightheadedness. He denies orthostasis. After he fell, he stated he landed on his backside and complained of severe pain. He contacted his daughter who lives with him. Daughter contacted EMS. Patient was brought to the emergency room. In the ER he underwent laboratory evaluation which showed a WBC count 34,000, hemoglobin 11.1 platelet level of, 198. Patient underwent x-ray of the hip and x-ray of the chest. Hip x-ray was negative for acute fracture. Chest x-ray was negative for effusions or pneumothorax or fractures. Due to the severity of his pain and inability to the patient to bear weight, patient subsequently asked CT scan of the hip. This showed an acute comminuted slightly displaced impacted intertrochanteric right proximal femur fracture. Orthopedics was consulted and recommended admission for potential surgery. He was taken to the operating room by Dr. Greenwood for ORIF of his right intertrochanteric femur fracture. No complications. Estimated blood loss of 15 mL. Postoperatively he has generally done well. Yesterday he had an episode of possible aspiration was started on antibiotics for a hospital-acquired pneumonia. Primary symptom was coughing. He had no fever and no elevated white count. Chest x-ray did show possible bibasilar infiltrates though these appear to be chronic.. He has had slow recovery of his mobility. His blood pressure has been relatively low. In reviewing his records from [facility] I see that his milk pasteurizer was addressing this by adjusting his heart failure medicines. At that time he was on carvedilol 25 b.i.d., spironolactone 12.5 mg daily and valsartan 320 mg daily at that time the thought would be to decreased valsartan if he was continued to have low blood pressure. He reports a poor appetite, malaise fatigue. No fever. No unusual dyspnea. Blood sugars have been fairly well controlled Patient's main concern today are recurrent episodes of reflux for which she is on chronic problems sac. We discussed elevating the head of the bed and proper positioning to reduce reflux symptoms. He also reports concern about aspiration events as he had in the last day or 2. For this I have recommended that he sit bolt upright when feeding. He apparently has had a swallowing evaluation the past he thinks the evaluation led to the conclusion that he would be better off with thickened liquids. Personally he notes that he has more choking and coughing episodes when he drinks thin liquids like water. On that basis will thicken his liquids to see if this gives any benefit. Speech swallowing evaluation in March 2024 recommendations included mechanical soft diet and thin liquids okay. Exam Narrative: Exam Narrative: He is alert and appears in no distress. Oropharynx is normal without evidence of thrush or mucositis. Neck is supple without mass or adenopathy. Respirations are clear to auscultation. No wheezing rales or rhonchi. Breathing is unlabored. Cardiovascular: S1, S2, regular rate and rhythm with relatively frequent premature beats. Abdomen is soft without tenderness. Extremities without significant edema.. Const: Vital Signs, click to edit/add: Vital Signs - 24 hr 07/22/24 00:42 07/22/24 02:46 07/22/24 07:00 Temperature 98.3 F Pulse Rate Pulse Rate [Pulse Oximeter] 77 72 Respiratory Rate 22 18 Blood Pressure Blood Pressure [Ri [facility] Arm] 113/47 L Pulse Oximetry 90 91 94 Oxygen Delivery Me thod Room Air Room Air 07/22/24 07:00 07/22/24 07:00 07/22/24 07:00 Temperature 98.1 F Pulse Rate 67 Pulse Rate [Pulse Oximeter] 63 63 Respiratory Rate 18 18 Blood Pressure Blood Pressure [Ri [facility] Arm] 109/61 Pulse Oximetry 95 Oxygen Delivery Me thod Room Air 07/22/24 09:30 07/22/24 09:30 07/22/24 11:00 Temperature 98.2 F Pulse Rate Pulse Rate [Pulse Oximeter] 76 78 63 Respiratory Rate 18 Blood Pressure Blood Pressure [Ri ght Arm] 92/42 L 95/39 L 113/38 L Pulse Oximetry 95 92 95 Oxygen Delivery Me thod Room Air Room Air Room Air 07/22/24 13:14 07/22/24 13:40 07/22/24 14:08 Temperature 98.6 F 98.1 F 98.1 F Pulse Rate 67 66 71 Pulse Rate [Pulse Oximeter] Respiratory Rate 18 18 24 Blood Pressure 119/36 L 98/40 L 110/44 L Blood Pressure [Ri ght Arm] Pulse Oximetry 94 95 93 Oxygen Delivery Me thod Room Air Room Air Room Air 07/22/24 14:10 07/22/24 14:40 07/22/24 15:00 Temperature 98.0 F 98.0 F Pulse Rate 67 72 Pulse Rate [Pulse Oximeter] Respiratory Rate 24 18 18 Blood Pressure 110/33 L 117/41 L Blood Pressure [Ri ght Arm] Pulse Oximetry 95 95 97 Oxygen Delivery Me thod Room Air Room Air 07/22/24 15:00 07/22/24 15:10 07/22/24 15:35 Temperature 89.0 F L Pulse Rate 70 Pulse Rate [Pulse Oximeter] 72 72 Respiratory Rate 18 18 Blood Pressure Blood Pressure [Ri ght Arm] 117/41 L Pulse Oximetry 97 Oxygen Delivery Me thod Room Air 07/22/24 15:40 07/22/24 15:40 07/22/24 16:10 Temperature 98.1 F 98.1 F 98.1 F Pulse Rate 66 73 66 Pulse Rate [Pulse Oximeter] Respiratory Rate 18 18 18 Blood Pressure 115/34 L 130/46 L 130/46 L Blood Pressure [Ri ght Arm] Pulse Oximetry 95 96 95 Oxygen Delivery Me thod Room Air Room Air Room Air 07/22/24 17:15 07/22/24 19:00 07/22/24 23:00 Temperature 98.3 F 97.8 F Pulse Rate 68 Pulse Rate [Pulse Oximeter] 75 Respiratory Rate 18 18 24 Blood Pressure 116/41 L Blood Pressure [Ri ght Arm] 125/49 L Pulse Oximetry 95 95 93 Oxygen Delivery Me thod Room Air Room Air Room Air 07/22/24 23:00 07/22/24 23:00 Temperature 97.5 F L Pulse Rate Pulse Rate [Pulse Oximeter] 68 68 Respiratory Rate 18 24 Blood Pressure Blood Pressure [Ri ght Arm] 104/51 L Pulse Oximetry 93 Oxygen Delivery Me thod Room Air Labs Labs: Laboratory Results - last 24 hr 07/19/24 07/22/24 07/22/24 13:07 06:00 06:05 WBC 23.74 H RBC 2.97 L Hgb 8.4 L Hct 26.4 L MCV 89 MCH 28 MCHC 32 Plt Count 161 Sodium 133 L Potassium 4.4 BUN 51 H Creatinine 1.3 Estimated Creat Clear 36.72 Estimated GFR 53 Procalcitonin 0.78 H SARS-CoV-2 Ag (Rapid) Negative Lab Acknowledgement Blood Type O Positive Antibody Screen NEGATIVE Crossmatch ([facility]) See Detail 07/22/24 07/22/24 11:07 17:13 WBC RBC Hgb 10.2 L Hct MCV MCH MCHC Plt Count Sodium Potassium BUN Creatinine Estimated Creat Clear Estimated GFR Procalcitonin SARS-CoV-2 Ag (Rapid) Lab Acknowledgement Test Added Blood Type Antibody Screen Crossmatch ([facility])
[2024-07-23] VITALS (11 sets, daily range): BP systolic 100–128; BP diastolic 39–63; PULSE 56–83; RESP 18–24; TEMP 36.7–37.2; O2SAT 93–96
[2024-07-23] MEDS: ACETAMINOPHEN 325 MG TABLET 650 MG PO ×4 (03:58→21:30)
[2024-07-23] MEDS: PIPERACILLIN/TAZOBACTAM 3.375 GM in 0.9 % SODIUM CHLORIDE Mini-bag 100 ML IVPB ×2 (04:00→11:23)
[2024-07-23 06:40] LABS: Hematocrit 27.2 % (37.0-53.0); Hemoglobin* 8.9 gm/dL (13.5-17.5); Mean Corpuscular HGB Conc 33 gm/dL (32-36); Mean Corpuscular Hemoglobin 29 pg (26-34); Mean Corpuscular Volume 88 fL (80-100); Platelet Count* 166 K/uL (140-440); Red Blood Count 3.09 m/uL (4.30-5.90); White Blood Count* 22.84 K/uL (4.50-11.00)
[2024-07-23 06:45] LABS: Chloride* 104 mmol/L (96-114); Potassium* 3.9 mmol/L (3.6-5.1); Slide Review Reflex No; Sodium* 134 mmol/L (135-149)
[2024-07-23 06:48] LABS: Anion Gap 7 mEq/L (7-15); Blood Urea Nitrogen* 58 mg/dL (7-30); Carbon Dioxide* 23 mmol/L (20-32); Creatinine* 1.3 mg/dL (0.5-1.5); Est. Creatinine Clearance* 36.72; Estimated Glomerular Filt Rate 53 ml/min; Glucose* 148 mg/dL (60-115)
[2024-07-23 06:49] LABS: Calcium* 8.3 mg/dL (8.4-10.6)
[2024-07-23] MEDS: EMPAGLIFLOZIN 25 MG TABLET PO (08:47)
[2024-07-23] MEDS: OMEPRAZOLE 20 MG CAPSULE DR PO ×2 (08:47→21:26)
[2024-07-23] MEDS: SPIRONOLACTONE 25 MG TABLET 12.5 MG PO (08:48)
[2024-07-23] MEDS: CETIRIZINE HCL 10 MG TABLET PO (08:48)
[2024-07-23] MEDS: SENNOSIDES 1 TAB TABLET 2 TAB PO (08:48)
[2024-07-23] MEDS: carvediloL 25 MG TABLET PO ×2 (08:48→21:26)
[2024-07-23] MEDS: INSULIN ASPART 100 UNIT/ML SUBCUT ×2 (18:19→21:27)
--- NOTE | 2024-07-23 20:18 | PC.NURSE ---
Pt up with assist of 1, gait belt, and platform walker within room. Up to chair, complaints of chair being uncomfortable, was able to bring recliner lift chair to allow pt to lay and sit up with controllers so he can drink water without aspirating and then lay back to take pressure off bottom. Pt was still unhappy with situation but didn't want to get to bed to lay on side. See MAR for medication administration. Active ice to right hip on/off. TEDS on/off, refused SCD's. Encouraged PT exercises and foot pumps.
[2024-07-23] MEDS: ATORVASTATIN CALCIUM 10 MG TABLET 20 MG PO (21:26)
[2024-07-23] MEDS: VALSARTAN 80 MG TABLET 160 MG PO (21:26)
[2024-07-24] VITALS (10 sets, daily range): BP systolic 101–122; BP diastolic 41–59; PULSE 64–80; RESP 16–24; TEMP 36.5–37.4; O2SAT 94–97
[2024-07-24] MEDS: LORazepam 0.5 MG TABLET PO (01:17)
--- NOTE | 2024-07-24 06:40 | PC.NURSE ---
Pt alert and oriented. Pt had no complaints of pain. Pt refused ice pack, TEDS and SCD?s- Pt educated on importance. Pt did ask for medication to help with sleep; see EMAR for intervention. Pt slept most of the night and wore CPAP. Pt requested to not be woken up for Tylenol.?
[2024-07-24 06:53] LABS: Hematocrit 27.7 % (37.0-53.0); Mean Corpuscular HGB Conc 33 gm/dL (32-36); Mean Corpuscular Hemoglobin 29 pg (26-34); Mean Corpuscular Volume 88 fL (80-100); Platelet Count* 183 K/uL (140-440); Red Blood Count 3.14 m/uL (4.30-5.90); White Blood Count* 24.67 K/uL (4.50-11.00)
[2024-07-24 06:55] LABS: Slide Review Reflex No
[2024-07-24 07:01] LABS: Chloride* 104 mmol/L (96-114); Potassium* 3.9 mmol/L (3.6-5.1); Sodium* 134 mmol/L (135-149)
[2024-07-24 07:04] LABS: Anion Gap 7 mEq/L (7-15); Blood Urea Nitrogen* 61 mg/dL (7-30); Calcium* 8.2 mg/dL (8.4-10.6); Carbon Dioxide* 23 mmol/L (20-32); Creatinine* 1.3 mg/dL (0.5-1.5); Est. Creatinine Clearance* 36.72; Estimated Glomerular Filt Rate 53 ml/min; Glucose* 153 mg/dL (60-115)
[2024-07-24] MEDS: INSULIN ASPART 100 UNIT/ML SUBCUT ×2 (07:50→17:43)
[2024-07-24] MEDS: CETIRIZINE HCL 10 MG TABLET PO (08:45)
[2024-07-24] MEDS: EMPAGLIFLOZIN 25 MG TABLET PO (08:45)
[2024-07-24] MEDS: carvediloL 25 MG TABLET PO ×2 (08:45→21:33)
[2024-07-24] MEDS: SPIRONOLACTONE 25 MG TABLET 12.5 MG PO (08:45)
[2024-07-24] MEDS: OMEPRAZOLE 20 MG CAPSULE DR PO ×2 (08:45→21:31)
[2024-07-24] MEDS: ACETAMINOPHEN 325 MG TABLET 650 MG PO ×3 (12:04→21:31)
--- NOTE | 2024-07-24 17:04 | PM.IMPN1 ---
Progress Note: A&P Assessment and plan (1) Hip fracture, right: Problem details: - s/p mechanical fall from standing - ORIF right hip, IM nail 07/19/2024, Dr. Greenwood - continue PT/OT - probably discharge to [facility] on July 25 for additional rehab Status: Acute (2) Chronic lymphocytic leukemia: Problem details: - elevated WBC. Follow - outpatient follow-up with PCP and Hematology Status: Chronic (3) Hospital-acquired pneumonia: Problem details: -postoperative had an episode of coughing and dyspnea. Was treated with Zosyn with concern for aspiration pneumonia. -CXR shows Mild to moderate patchy bilateral airspace opacities may represent pulmonary edema, atypical infection, or inflammation. Possibly this is chronic finding on chest x-ray. Antibiotics discontinued when he developed diarrhea and did not have other clinical evidence of pneumonia. Status: Acute (4) Essential hypertension: Problem details: -continue home medications. Spironolactone reduced to 12.5 mg approximately 2 weeks ago by Cardiology. He has received 25 mg while in the hospital which may be contributing to his SBP < 100. This has been corrected. Receiving 1 unit PRBC which will help as well. Continue to monitor. Valsartan dose reduced due to hypotension Status: Acute (5) Dysphagia: Problem details: - chronic, several previous swallow evals, monitor - Video swallow and therapy recommendations from 04/08/24 as follows: 1. DIET: IDDSI Level 6, soft and bite sized solids, thin liquids 2. MEDICATIONS: No restrictions 3. SWALLOW PRECAUTIONS: Sit upright, small sips and bites, swallow 2x per bite, alternate solids and liquids Will try thickening liquids as patient feels like he is coughing and choking after drinking thin liquids. Status: Acute (6) Anemia: Problem details: - post operative, acute blood loss. Last dose Eliquis night prior to surgery. Blood pressures stable - hemoglobin 8.9 postoperatively, improved to 9.3 on recheck. Okay to resume Eliquis 07/20. Hemoglobin 8.8 on 07/21. Continue to monitor - 8.8 POD#2 -> 8.4 on 07/22. Given comorbidities, symptomatic, will transfuse 1 unit PRBC. Hemoglobin has been stable over the last few days Status: Acute (7) Shoulder pain, right: Problem details: - s/p fall - xray ordered - tylenol, lidocaine patch? Status: Ruled-out (8) Atrial fibrillation: Problem details: - rate controlled, paroxysmal, on chronic anticoagulation - continue home dose of Carvedilol, restart Eliquis evening of 07/20 - repeat TTE 09/21/23 with formal cardiology report below: Final Impressions: 1. Normal left ventricular size, mildly increased wall thickness, mildly reduced global systolic function, calculated EF of 50 %. 2. Right ventricular cavity size is normal, global systolic RV function is normal. 3. Mildly enlarged left atrium. 4. The aortic valve is calcified, moderate to severe stenosis and moderate regurgitation. The aortic valve peak velocity is 3.4 m/s, the peak gradient is 45 mmHg, and the mean gradient is 25 mmHg. The aortic valve area is 1.19 cm?? with a dimensionless index of 0.24. The stroke volume index is 51.5 ml/m??. 5. The mitral valve is sclerotic, trace mitral regurgitation. 6. Tricuspid valve is normal. 7. Moderately increased estimated pulmonary pressures by tricuspid regurgitation velocity and right atrial pressure (56 mmHg plus RAP). 8. No pericardial effusion. Status: Chronic (9) Type 2 diabetes mellitus: Problem details: - on Jardiance. Sliding scale insulin with Accu-Cheks. - A1C at admission 7.8 Status: Chronic (10) Aortic stenosis, severe: Problem details: - noted on 09/21/23 TTE (was mild on 2019 TTE) - outpatient f/u with PCP and Cardiology at [place] - Monitor BP and give IVF carefully. Transfuse if Hgb less than 8 - transfused at 8.4 POD# 3 Status: Chronic (11) CAD (coronary artery disease): Problem details: - h/o JAMES to mid LAD prox circumflex, OM1 01/05 - takes an aspirin daily - asymptomatic Status: Chronic (12) Hypotension: Problem details: Has had relatively low blood pressures even prior to this hospitalization. Blood pressure medications/heart failure medications, carvedilol, spironolactone and valsartan reviewed. Recommend reducing valsartan from 320-160 mg daily to address relatively low blood pressures. 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 Anticipate complications from multiple medical problems outlined above and very slow recovery from hip fracture and associated disabilities. Status: Acute Plan Continue in-hospital for evaluation monitoring of above medical problems with anticipation of discharge tomorrow to [address] [place] [id number] if clinically stable. Plan is discussed with patient and family were present today as well as other providers. total time in coordination of care and discussion is 40 minutes. Subjective Date Seen: 07/24/24 Interval history: Admission HPI: Kristofer Garcia is seen as an Interactive Telehealth visit. Kristofer Garcia is a 88 year old male who is Presents to hospital for follow-up. Patient stated that he was doing his laundry when he lost his balance. He denied any loss of consciousness. He denied lightheadedness. He denies orthostasis. After he fell, he stated he landed on his backside and complained of severe pain. He contacted his daughter who lives with him. Daughter contacted EMS. Patient was brought to the emergency room. In the ER he underwent laboratory evaluation which showed a WBC count 34,000, hemoglobin 11.1 platelet level of, 198. Patient underwent x-ray of the hip and x-ray of the chest. Hip x-ray was negative for acute fracture. Chest x-ray was negative for effusions or pneumothorax or fractures. Due to the severity of his pain and inability to the patient to bear weight, patient subsequently asked CT scan of the hip. This showed an acute comminuted slightly displaced impacted intertrochanteric right proximal femur fracture. Orthopedics was consulted and recommended admission for potential surgery. He was taken to the operating room by Dr. Greenwood for ORIF of his right intertrochanteric femur fracture. No complications. Estimated blood loss of 15 mL. Postoperatively he has generally done well. Yesterday he had an episode of possible aspiration was started on antibiotics for a hospital-acquired pneumonia. Primary symptom was coughing. He had no fever and no elevated white count. Chest x-ray did show possible bibasilar infiltrates though these appear to be chronic.. He has had slow recovery of his mobility. His blood pressure has been relatively low. 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 At that time he was on carvedilol 25 b.i.d., spironolactone 12.5 mg daily and valsartan 320 mg daily at that time the thought would be to decreased valsartan if he was continued to have low blood pressure. He reports a poor appetite, malaise fatigue. No fever. No unusual dyspnea. Blood sugars have been fairly well controlled Patient's main concern today are recurrent episodes of reflux for which she is on chronic problems sac. We discussed elevating the head of the bed and proper positioning to reduce reflux symptoms. He also reports concern about aspiration events as he had in the last day or 2. For this I have recommended that he sit bolt upright when feeding. He apparently has had a swallowing evaluation the past he thinks the evaluation led to the conclusion that he would be better off with thickened liquids. Personally he notes that he has more choking and coughing episodes when he drinks thin liquids like water. On that basis will thicken his liquids to see if this gives any benefit. Speech swallowing evaluation in March 2024 recommendations included mechanical soft diet and thin liquids okay. 07/24/2024: Patient reports feeling quite tired today. He is short of breath but this is not changed substantially. Cough is not changed. Still has a poor appetite. Pain is adequately controlled. He is making slow progress with therapy and mobilization. He thinks swallowing thickened liquids is working a little better for him. Exam Narrative: Exam Narrative: He is sleeping but arouses to voice. He is oriented to his circumstances. Respirations are clear to auscultation. Cardiovascular: S1, S2, regular rate and rhythm. Abdomen is soft without tenderness or mass. Hip is without erythema or marked bruising and swelling. No significant edema. He moves feet and ankles well. Const: Vital Signs, click to edit/add: Vital Signs - 24 hr 07/23/24 16:05 07/23/24 16:15 07/23/24 16:15 Temperature Pulse Rate 75 Pulse Rate [Pulse Oximeter] 79 Respiratory Rate 20 20 Blood Pressure [Ri t Arm] Pulse Oximetry 96 Oxygen Delivery Me thod Room Air Oxygen Flow Rate 07/23/24 16:15 07/23/24 19:40 07/23/24 21:30 Temperature 99.0 F Pulse Rate Pulse Rate [Pulse Oximeter] 79 83 83 Respiratory Rate 20 18 Blood Pressure [Ri ght Arm] 128/46 L 124/56 L Pulse Oximetry 96 94 Oxygen Delivery Me thod Room Air Room Air Oxygen Flow Rate 07/23/24 21:53 07/23/24 21:59 07/23/24 22:55 Temperature Pulse Rate 76 Pulse Rate [Pulse Oximeter] Respiratory Rate 18 24 Blood Pressure [Ri ght Arm] Pulse Oximetry 94 Oxygen Delivery Me thod Room Air Oxygen Flow Rate 0 07/24/24 06:05 07/24/24 07:31 07/24/24 08:08 Temperature Pulse Rate 71 Pulse Rate [Pulse Oximeter] Respiratory Rate 24 20 Blood Pressure [Ri ght Arm] Pulse Oximetry 94 Oxygen Delivery Me thod Room Air Oxygen Flow Rate 07/24/24 08:08 07/24/24 12:16 07/24/24 16:52 Temperature 99.3 F 98.9 F Pulse Rate Pulse Rate [Pulse Oximeter] 67 64 Respiratory Rate 20 18 16 Blood Pressure [Ri ght Arm] 101/59 L 122/47 L Pulse Oximetry 94 96 97 Oxygen Delivery Me thod Room Air Room Air Room Air Oxygen Flow Rate 07/24/24 16:52 Temperature 97.7 F Pulse Rate Pulse Rate [Pulse Oximeter] 64 Respiratory Rate 16 Blood Pressure [Ri ght Arm] 105/41 L Pulse Oximetry 97 Oxygen Delivery Me thod Room Air Oxygen Flow Rate Documenting provider has reviewed patient's vital signs: yes Labs Labs: Laboratory Results - last 24 hr 07/24/24 06:28 WBC 24.67 H RBC 3.14 L Hgb 9.0 L Hct 27.7 L MCV 88 MCH 29 MCHC 33 Plt Count 183 Sodium 134 L Potassium 3.9 Chloride 104 Carbon Dioxide 23 Anion Gap 7 BUN 61 H Creatinine 1.3 Estimated Creat Clear 36.72 Estimated GFR 53 Glucose 153 H Calcium 8.2 L
[2024-07-24] MEDS: VALSARTAN 80 MG TABLET 160 MG PO (21:31)
[2024-07-24] MEDS: ATORVASTATIN CALCIUM 10 MG TABLET 20 MG PO (21:31)
[2024-07-25] MEDS: ACETAMINOPHEN 325 MG TABLET 650 MG PO ×2 (03:44→10:05)
[2024-07-25 03:50] VITALS: RESP 22
--- NOTE | 2024-07-25 04:33 | PC.NURSE ---
Pt alert and oriented. Pt had no complaints of pain. Pt refused ice pack, TEDS and SCD?s- Pt educated on importance. Pt slept well most of the night. Pt agreeable to ice pack at 0415.?Pt likely to D/C to [facility] 07/26/23.
[2024-07-25 06:34] LABS: Hematocrit 28.4 % (37.0-53.0); Hemoglobin* 9.2 gm/dL (13.5-17.5); Mean Corpuscular HGB Conc 32 gm/dL (32-36); Mean Corpuscular Hemoglobin 29 pg (26-34); Mean Corpuscular Volume 89 fL (80-100); Platelet Count* 216 K/uL (140-440); Red Blood Count 3.18 m/uL (4.30-5.90)
[2024-07-25 06:36] LABS: White Blood Count* 25.82 K/uL (4.50-11.00)
[2024-07-25 06:37] LABS: Chloride* 106 mmol/L (96-114); Slide Review Reflex No
[2024-07-25 06:38] LABS: Sodium* 137 mmol/L (135-149)
[2024-07-25 06:41] LABS: Anion Gap 7 mEq/L (7-15); Blood Urea Nitrogen* 64 mg/dL (7-30); Calcium* 8.4 mg/dL (8.4-10.6); Carbon Dioxide* 24 mmol/L (20-32); Creatinine* 1.3 mg/dL (0.5-1.5); Est. Creatinine Clearance* 36.72; Estimated Glomerular Filt Rate 53 ml/min; Glucose* 145 mg/dL (60-115)
[2024-07-25 06:53] LABS: Potassium* 4.1 mmol/L (3.6-5.1)
[2024-07-25 08:23] VITALS: BP 132/51; PULSE 69; PULSE 80; RESP 18; RESP 22; TEMP 36.9; O2SAT 96
[2024-07-25] MEDS: CETIRIZINE HCL 10 MG TABLET PO (10:05)
[2024-07-25] MEDS: SPIRONOLACTONE 25 MG TABLET 12.5 MG PO (10:05)
[2024-07-25] MEDS: EMPAGLIFLOZIN 25 MG TABLET PO (10:06)
[2024-07-25] MEDS: OMEPRAZOLE 20 MG CAPSULE DR PO (10:06)
[2024-07-25] MEDS: carvediloL 25 MG TABLET PO (10:07)
[2024-07-25 10:22] LABS: SARS Antigen* Negative (Negative)
[2024-07-25 11:00] VITALS: BP 106/46; PULSE 66; RESP 20; TEMP 37.4; O2SAT 95
[2024-07-25 12:00] VITALS: PULSE 62
[2024-07-25] MEDS: INSULIN ASPART 100 UNIT/ML SUBCUT (12:16)
--- NOTE | 2024-07-25 15:14 | PM.DS1 ---
DS: Providers Provider Date Seen: 07/25/24 Date of admission: 07/19/24 02:46 Primary care physician: Luiz Bullock MD Admitting Clinician: Everardo Mayberry MD Date of Discharge: 07/25/24 DS: Diagnosis Discharge Diagnosis (1) Hip fracture, right: Status: Acute Problem details: - s/p mechanical fall from standing - ORIF right hip, IM nail 07/19/2024, Dr. Greenwood Making slow progress with PT and OT. Continue at [facility]. (2) Chronic lymphocytic leukemia: Status: Chronic Problem details: - elevated WBC. Follow - outpatient follow-up with PCP and Hematology (3) Hospital-acquired pneumonia: Status: Acute Problem details: -postoperative had an episode of coughing and dyspnea. Was treated with Zosyn with concern for aspiration pneumonia. -CXR shows Mild to moderate patchy bilateral airspace opacities may represent pulmonary edema, atypical infection, or inflammation. Possibly this is chronic finding on chest x-ray. Antibiotics discontinued when he developed diarrhea and did not have other clinical evidence of pneumonia. (4) Essential hypertension: Status: Acute Problem details: -continue home medications. Spironolactone reduced to 12.5 mg approximately 2 weeks ago by Cardiology. He has received 25 mg while in the hospital which may be contributing to his SBP < 100. This has been corrected. Receiving 1 unit PRBC which will help as well. Continue to monitor. Valsartan dose reduced from 320 mg to 160 mg at bedtime due to hypotension. Blood pressure has improved. (5) Dysphagia: Status: Acute Problem details: - chronic, several previous swallow evals, monitor - Video swallow and therapy recommendations from 04/08/24 as follows: 1. DIET: IDDSI Level 6, soft and bite sized solids, thin liquids 2. MEDICATIONS: No restrictions 3. SWALLOW PRECAUTIONS: Sit upright, small sips and bites, swallow 2x per bite, alternate solids and liquids Will try thickening liquids as patient feels like he is coughing and choking after drinking thin liquids. (6) Anemia: Status: Acute Problem details: - post operative, acute blood loss. Last dose Eliquis night prior to surgery. Blood pressures stable - hemoglobin 8.9 postoperatively, improved to 9.3 on recheck. Okay to resume Eliquis 07/20. Hemoglobin 8.8 on 07/21. Continue to monitor - 8.8 POD#2 -> 8.4 on 07/22. Given comorbidities, symptomatic, will transfuse 1 unit PRBC. Hemoglobin has been stable over the last few days (7) Shoulder pain, right: Status: Ruled-out Problem details: - s/p fall - xray ordered - tylenol, lidocaine patch? (8) Atrial fibrillation: Status: Chronic Problem details: - rate controlled, paroxysmal, on chronic anticoagulation - continue home dose of Carvedilol, restart Eliquis evening of 07/20 - repeat TTE 09/21/23 with formal cardiology report below: Final Impressions: 1. Normal left ventricular size, mildly increased wall thickness, mildly reduced global systolic function, calculated EF of 50 %. 2. Right ventricular cavity size is normal, global systolic RV function is normal. 3. Mildly enlarged left atrium. 4. The aortic valve is calcified, moderate to severe stenosis and moderate regurgitation. The aortic valve peak velocity is 3.4 m/s, the peak gradient is 45 mmHg, and the mean gradient is 25 mmHg. The aortic valve area is 1.19 cm?? with a dimensionless index of 0.24. The stroke volume index is 51.5 ml/m??. 5. The mitral valve is sclerotic, trace mitral regurgitation. 6. Tricuspid valve is normal. 7. Moderately increased estimated pulmonary pressures by tricuspid regurgitation velocity and right atrial pressure (56 mmHg plus RAP). 8. No pericardial effusion. (9) Type 2 diabetes mellitus: Status: Chronic Problem details: - on Jardiance. Sliding scale insulin with Accu-Cheks. - A1C at admission 7.8 (10) Aortic stenosis, severe: Status: Chronic Problem details: - noted on 09/21/23 TTE (was mild on 2019 TTE) - outpatient f/u with PCP and Cardiology at [facility] [place] - Monitor BP and give IVF carefully. Transfuse if Hgb less than 8 - transfused at 8.4 POD# 3 (11) CAD (coronary artery disease): Status: Chronic Problem details: - h/o JAMES to mid LAD prox circumflex, OM1 01/05 - takes an aspirin daily - asymptomatic (12) Hypotension: Status: Acute Problem details: Has had relatively low blood pressures even prior to this hospitalization. Blood pressure medications/heart failure medications, carvedilol, spironolactone and valsartan reviewed. Recommend reducing valsartan from 320-160 mg daily to address relatively low blood pressures. 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 Anticipate complications from multiple medical problems outlined above and very slow recovery from hip fracture and associated disabilities. DS: Summary Hospital Course Hospital Course: Admission HPI: Kristofer Garcia is a 88 year old male who is admitted to the hospital after a fall at home. Patient stated that he was doing his laundry when he lost his balance. He denied any loss of consciousness. He denied lightheadedness. He denies orthostasis. After he fell, he stated he landed on his backside and complained of severe pain. He contacted his daughter who lives with him. Daughter contacted EMS. Patient was brought to the emergency room. In the ER he underwent laboratory evaluation which showed a WBC count 34,000, hemoglobin 11.1 platelet level of, 198. Patient underwent x-ray of the hip and x-ray of the chest. Hip x-ray was negative for acute fracture. Chest x-ray was negative for effusions or pneumothorax or fractures. Due to the severity of his pain and inability to the patient to bear weight, patient subsequently asked CT scan of the hip. This showed an acute comminuted slightly displaced impacted intertrochanteric right proximal femur fracture. Orthopedics was consulted and recommended admission for potential surgery. He was taken to the operating room by Dr. Greenwood for ORIF of his right intertrochanteric femur fracture. No complications. Estimated blood loss of 15 mL. Postoperatively he has generally done well. Yesterday he had an episode of possible aspiration was started on antibiotics for a hospital-acquired pneumonia. Primary symptom was coughing. He had no fever and no elevated white count. Chest x-ray did show possible bibasilar infiltrates though these appear to be chronic.. He has had slow recovery of his mobility. His blood pressure has been relatively low. In reviewing his records from 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 At that time he was on carvedilol 25 b.i.d., spironolactone 12.5 mg daily and valsartan 320 mg daily at that time the thought would be to decreased valsartan if he was continued to have low blood pressure. He reports a poor appetite, malaise fatigue. No fever. No unusual dyspnea. Blood sugars have been fairly well controlled Patient's main concern today are recurrent episodes of reflux for which she is on chronic problems sac. We discussed elevating the head of the bed and proper positioning to reduce reflux symptoms. He also reports concern about aspiration events as he had in the last day or 2. For this I have recommended that he sit bolt upright when feeding. He apparently has had a swallowing evaluation the past he thinks the evaluation led to the conclusion that he would be better off with thickened liquids. Personally he notes that he has more choking and coughing episodes when he drinks thin liquids like water. On that basis will thicken his liquids to see if this gives any Status at Discharge Functional status at discharge: uses cane/walker Overall status at discharge: patient is progressing back to baseline Time Spent with Patient Time attestation: Total time spent providing and/or coordinating discharge services: 40 minutes Exam Narrative: Exam Narrative: He is alert and appears in no distress. Mood and affect are brighter today. He is more interactive. Head is without trauma. Respirations are clear to auscultation. No wheezing rales or rhonchi. Cardiovascular: S1, S2, regular rate and rhythm. Abdomen is soft without tenderness or mass. Moves both feet and ankles fairly well. Const: Vital Signs, click to edit/add: Vital Signs - 24 hr 07/24/24 16:47 07/24/24 16:52 07/24/24 16:52 Temperature 97.7 F Pulse Rate 67 Pulse Rate [Pulse Oximeter] 64 Respiratory Rate 16 16 Blood Pressure [Le ft Arm] Blood Pressure [Ri ght Arm] 105/41 L Pulse Oximetry 97 97 Oxygen Delivery Me thod Room Air Room Air Oxygen Flow Rate 07/24/24 19:45 07/24/24 21:45 07/24/24 21:45 Temperature 98.3 F Pulse Rate Pulse Rate [Pulse Oximeter] 80 Respiratory Rate 22 22 22 Blood Pressure [Le ft Arm] Blood Pressure [Ri ght Arm] 120/42 L Pulse Oximetry 94 94 Oxygen Delivery Ky thod Room Air Room Air Oxygen Flow Rate 0 07/24/24 22:40 07/24/24 22:49 07/25/24 03:50 Temperature Pulse Rate 65 Pulse Rate [Pulse Oximeter] Respiratory Rate 24 22 Blood Pressure [Le ft Arm] Blood Pressure [Ri ght Arm] Pulse Oximetry Oxygen Delivery Ky thod Oxygen Flow Rate 07/25/24 08:23 07/25/24 08:23 07/25/24 08:23 Temperature 98.4 F Pulse Rate Pulse Rate [Pulse Oximeter] 80 69 Respiratory Rate 22 18 18 Blood Pressure [Le ft Arm] 132/51 L Blood Pressure [Ri ght Arm] Pulse Oximetry 96 96 Oxygen Delivery Me thod Room Air Room Air Oxygen Flow Rate 07/25/24 11:00 07/25/24 12:00 Temperature 99.4 F Pulse Rate 62 Pulse Rate [Pulse Oximeter] 66 Respiratory Rate 20 Blood Pressure [Le ft Arm] 106/46 L Blood Pressure [Ri ght Arm] Pulse Oximetry 95 Oxygen Delivery Me thod Room Air Oxygen Flow Rate Documenting provider has reviewed patient's vital signs: yes DS: Data Data Completed and Pending Labs on day of discharge: Labs from last 24 hours 07/25/24 07/25/24 Unknown 06:02 WBC 25.82 H* RBC 3.18 L Hgb 9.2 L Hct 28.4 L MCV 89 MCH 29 MCHC 32 Plt Count 216 Sodium 137 Potassium 4.1 Chloride 106 Carbon Dioxide 24 Anion Gap 7 BUN 64 H Creatinine 1.3 Estimated Creat Clear 36.72 Estimated GFR 53 Glucose 145 H Calcium 8.4 SARS-CoV-2 Ag (Rapid) Negative Discharge Plan [facility] Date of Admission: 07/19/24 02:46 Attending Provider on Discharge: Nick Wolfe Consulting Providers: Azeem Greenwood; Deborah Mays Primary Care Provider: Luiz Bullock Condition: Unchanged Anticipated Discharge Date/Time: 07/22/24 10:00 Discharge Medications: New sennosides [Senna Lax] 8.6 mg Tablet 17.2 mg PO BID PRN (Reason: constipation) Qty: 100 0RF acetaminophen 500 mg capsule 500 mg PO Q6H MDD 4000mg per day PRN (Reason: pain) Qty: 100 0RF oxycodone 5 mg Tablet 2.5 - 5 mg PO Q4-6H MDD 6 tabs per day PRN (Reason: Pain) Qty: 42 0RF Rx Instructions: Minimize. Discontinue as soon as possible valsartan 80 mg Tablet 160 mg PO HS Qty: 60 0RF Continued cetirizine 10 mg tablet 10 mg PO DAILY albuterol sulfate 90 mcg/actuation HFA aerosol inhaler 2 inh INHALATION Q4H PRN spironolactone 25 mg tablet 12.5 mg PO DAILY Qty: 30 0RF carvedilol 25 mg tablet 25 mg PO BID atorvastatin 20 mg tablet 20 mg PO QPM omeprazole 20 mg capsule,delayed release(DR/EC) 20 mg PO BID aspirin 81 mg tablet,chewable 1 tab PO DAILY Eliquis 2.5 mg tablet 2.5 mg PO BID Jardiance 25 mg tablet 25 mg PO DAILY ascorbic acid (vitamin C) 500 mg tablet 500 mg PO DAILY vitamin E mixed 400 unit capsule 400 unit PO DAILY Discontinued valsartan 320 mg tablet 320 mg PO HS Discharge Orders: Discharge Order (Routine); Ordered 07/25/24 Ordered By: Nick Wolfe Additional Instructions: Staff Please make appointment for Kristofer with Dr. Greenwood in 4-6 weeks Activity Level: Weight Bearing as Tolerated Activity Detail: Occupational therapy and Physical therapy daily at [facility] facility. Then physical therapy as an outpatient as needed. Remove dressings in one week. Dressing is waterproof. May shower. Surgical glue covers the wound. Ice and elevate operative extremity without restriction. Swelling and bruising will worsen within the first week. When swelling occurs, elevate the extremity above heart level several times a day and gently massage/pull soft tissue swelling toward hip. This allows gravity to assist in eliminating the swelling/edema. Wear compression stockings/annika bandages as needed for swelling. If you drive, Do not drive while taking narcotic pain medication. Do not drink alcohol while taking narcotic pain medication. If you drive, May drive when safe to do so and have full function of the extremities, this will take 6 weeks or more. Notify Orthopedics with any questions or concerns. ([phone]) Discharge Diet: Diabetic Dysphagia Food: Level 6- Soft & Bite size Dysphagia Liquid: Level 1-Slightly Thick Follow Up Appointments: Luiz Bullock MD [Primary Care Provider] - Azeem Greenwood MD [Staff Physician] - (4-6 weeks) Forms: [facility] Info Instructions Admit to: SNF Discharge Potential: Fair Length of Stay: <30 days Can use facility standing orders?: Yes Code Status: Full Code TEDs: Bilateral Knee Rehab Potential: Good Therapy: Physical Therapy and Occupational Therapy Therapy Orders: Evaluate and Treat Oxygen: No Urinary Catheter: No Lab Orders: Check basic metabolic panel and CBC in 1 week Orders are good >30 days: No Signature: BRINDA Vasquez, [facility]
--- NOTE | 2024-07-25 15:51 | PC.NURSE ---
Nursing Care Hours: 9880-0491 Pt this shift calm and cooperative, alert and oriented. C/o pain to R hip and to tailbone. Treated by repositioning and tylenol. Mepilex still in place to R hip and to sacrum. Tolerating diet with bite size pieces. Taking pills whole with nectar thick liquids. Pedal pulses present, no edema. VSS. Ax2 with platform walker to bathroom. [facility] transfer to [facility], nurse to nurse over the phone done.
--- NOTE | 2024-07-25 15:56 | PC.SOCIAL ---
Discharge planning: Pt discharged to [facility] today for short-term rehab. Discharge orders were secure emailed to Jean Carlos at [facility]. Pre-admission screening was also completed and sent to Jean Carlos at [facility]. [id number]. The pt also had a COVID test that was done and that came back negative(per [facility] request). The test results were sent to Jean Carlos at [facility] via secure email. Pt was provided a copy of The Important Message from Medicare form and had no concerns with discharging from the hospital or wanting to appeal his discharge. Social work to follow-up as needed.
== END 2024-07-25 15:27 | DRG 480 ==
LOC: ED 07-19 00:56 → MEDSURG 07-19 01:40
PROVIDERS: Emergency Medicine Emergency Medical Services; Family Medicine; Orthopaedic Surgery; Physician Assistant; Admitting Provider Student in an Organized Health Care Education/Training Program; Emergency Provider Student in an Organized Health Care Education/Training Program; PCP Family Medicine; Visit Provider Student in an Organized Health Care Education/Training Program
PROC: 0QS606Z Reposition Right Upper Femur with Intramedullary Internal Fixation Device, Open Approach (ICD-10-PCS; CPT 27245; principal; 2024-07-19 12:45)
DX: S72.141A Displaced intertrochanteric fracture of right femur, initial encounter for closed fracture (principal); J69.0 Pneumonitis due to inhalation of food and vomit; C91.10 Chronic lymphocytic leukemia of B-cell type not having achieved remission; D62 Acute posthemorrhagic anemia; I50.20 Unspecified systolic (congestive) heart failure; J95.89 Other postprocedural complications and disorders of respiratory system, not elsewhere classified; R13.10 Dysphagia, unspecified; I95.9 Hypotension, unspecified; M25.511 Pain in right shoulder; W19.XXXA Unspecified fall, initial encounter; Y93.E8 Activity, other personal hygiene; Y92.009 Unspecified place in unspecified non-institutional (private) residence as the place of occurrence of the external cause; I35.0 Nonrheumatic aortic (valve) stenosis; E11.319 Type 2 diabetes mellitus with unspecified diabetic retinopathy without macular edema; I48.0 Paroxysmal atrial fibrillation; I11.0 Hypertensive heart disease with heart failure; I44.0 Atrioventricular block, first degree; K21.9 Gastro-esophageal reflux disease without esophagitis; Z79.82 Long term (current) use of aspirin; Z79.84 Long term (current) use of oral hypoglycemic drugs; Z79.01 Long term (current) use of anticoagulants; I25.10 Atherosclerotic heart disease of native coronary artery without angina pectoris; E78.5 Hyperlipidemia, unspecified; R54 Age-related physical debility
CPT/HCPCS: 01210; 01230; 36415; 36430; 70450; 71045; 72100; 73000; 73502; 73551; 73700; 80048; 80053; 82550; 82565; 82962; 84132; 84145; 84295; 84520; 85018; 85025; 85027; 85610; 86850; 86900; 86901; 86922; 87426; 93005; 94761; 97110; 97116; 97162; 97165; 97530; 97535; 99100; 99140; 99285; A9270; C1713; J0330; J0690; J1100; J1171; J1720; J2250; J2371; J2405; J2543; J2704; J3490; J7120; P9016

== ENCOUNTER 2024-07-25 15:35 | Outpatient (CLI) | payer MEDICARE, BC, SELFPAY | END 2024-07-25 15:36 | disposition home or self-care (01) | LOC: AMB 07-27 12:56 | PROVIDERS: PCP Family Medicine; Visit Provider Family Medicine | DX: S72.001A Fracture of unspecified part of neck of right femur, initial encounter for closed fracture (principal) | CPT/HCPCS: A0425; A0428 ==

== ENCOUNTER 2024-08-19 19:53 | Inpatient (IN) | payer MEDICARE, BC, SELFPAY ==
--- OUTSIDE RECORDS SUMMARY | 2024-08-19 19:55 | XMS_ITS | Encounter Summary ---
Author Organization [facility] Address [address] [place] [address] Care Team Providers Care School Year Nanny Name Role Phone Elsewhere, Pcp Primary Care Provider Unavailabl e Encounter Details Date Type Department Care Team (Latest Contact Info) Description 07/11/2024 Virtual Visit Department of Cardiovascular Medicine in [place], [place] [address] [place] [address] Gt Ricks, ROXANA, P.A.-C., M.S. [address] [place] [address] Stenosis Aortic Valve Acquired (Primary Dx); Diabetes Mellitus Type 2 (HCC); Atherosclerotic Heart Disease [place] Coronary Artery With Other Forms Angina Pectoris [...] How often do you attend chur or methodist services? Patient declined 12/31/2021 Do you belong to any clubs o r organizations such as anabaptism groups, unions, [employer] or athletic groups, or school groups? No [...] and heating? Not hard at all 12/31/2021 [facility] - [...] PM CDT Legal Sex Male 8:35 AM LIBRARY CLERICAL ASSISTANT Gender Identity Male 12/09/2017 1:17 PM CDT [...] questions were answered. ROXANA Callaway, Tiffany., M.S. 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
--- OUTSIDE RECORDS SUMMARY | 2024-08-19 19:55 | XMS_ITS | Encounter Summary ---
Author Organization [facility] Address [address] [place] [address] Care Team Providers Care Teacher Aide Clerical Name Role Phone Elsewhere, Pcp Primary Care Provider Unavailabl e Reason for Visit * Reason Onset Date Comments Results 07/11/2024 Encounter Details Date Type Department Care Team (Latest Contact Info) Description 07/11/2024 Clinical Communication Department of Cardiovascular Medicine in [place], [place] [address] [place] [address] Gt Ricks, ROXANA, P.A.-C., M.S. [address] [place] [phone] Results Social History Tobacco Use Types Packs/Day [...] How often do you attend chur or denominational services? Patient declined 12/31/2021 Do you belong to any clubs o r organizations such as alevism groups, unions, fraternal [...] heating? Not hard at all 12/31/2021 [facility] Occupat ional [...] or slept in a chcf (including now)? 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
--- OUTSIDE RECORDS SUMMARY | 2024-08-19 19:55 | XMS_ITS | Clinical Summary ---
Author Organization [facility] Address [address] [address] Phone Care Team Providers Care Insurance Salesperson Name Role Phone Unavailable Primary Care Provider [...] Mesenteric angiogram; Surgeon: Yair Jones MD; Location: [facility] INTERVENTIONAL RADIOLOGY COLONOSCOPY 03/23/2022 Colon/N/A No repeat [...] Comments Blood Pressure 162/49 03/25/2022 4:27 PM ADVANCED PRACTICE NURSE PSYCHOTHERAPIST Pulse 74 03/25/2022 4:27 PM ADVANCED PRACTICE NURSE PSYCHOTHERAPIST Temperature 36.6 C (97.8 F) 03/25/2022 4:27 PM ADVANCED PRACTICE NURSE PSYCHOTHERAPIST Respiratory Rate 20 03/25/2022 4:27 PM ADVANCED PRACTICE NURSE PSYCHOTHERAPIST Oxygen Saturation 95% 03/25/2022 4:27 PM ADVANCED PRACTICE NURSE PSYCHOTHERAPIST Inhaled Oxygen Concentration - - Weight 91.5 kg (201 lb 11.5 oz) 03/25/2022 6:00 AM ADVANCED PRACTICE NURSE PSYCHOTHERAPIST Height 174 cm (5' 8.5) 03/22/2022 2:30 PM CDT Body Mass Index 30.23 03/22/2022 2:30 PM CDT Plan of Treatment Health Maintenance Due Date Last Done Comments MEDICARE AWV 1935 PERTUSSIS (Standing Order) 11/14/1954 TETANUS (Standing Order) 11/14/1954 Pneumococcal Vaccine: 50+ yr s (Standing Order) (1 of 1 - PCV) 11/14/1985 Shingrix (Zoster recombinant ) vaccine (Standing Order) (1 of 2) 11/14/1985 RSV Vaccination (60+ yrs) (Abrysvo/Arexvy) (1 - 1-dose 75+ series) 11/14/2010 COVID-19 Vaccine ( - 2023-2 5 season) 2024 Influenza Vaccine Seasonal (Standing Order) (#1) 2024 HPV Vaccine (Standing Order) Aged Out No longer eligible based on patient's age to complete this topic Hepatitis B Vaccine (Standin g Order) Aged Out No longer eligible b ased on patient's age to complete this topic Medical Devices Implanted Type Area Basket Hand Braider Device Identifier Shelf Expiration Date Model / Serial / Lot Clip Hemostasis Instinct Plus Disp [id number] - [id number] Implanted:Qty: 2 on 03/23/2022 by Anjana Weeks DO at [facility] N/A: Davi CHIRINOS 01/16/2025 [id number] / N/A / [id number] Insurance [employer] [facility] [employer] Address: [facility] [id number] [place] [address] MEDICARE PART A & B Advance Directives For more information, please contact: [phone] * Full Code (Latest Code Status on File) Date Activated Date Inactivated Comments 03/22/2022 2:44 PM 03/25/2022 9:43 PM
--- OUTSIDE RECORDS SUMMARY | 2024-08-19 19:55 | XMS_ITS ---
Author Organization [facility] [place] Care Team Providers Care Spinning Machine Tender Name Role Phone Leena Caballero Unavailable Unavailable Rhonda Calhoun Unavailable Unavailable Toby Daly Unavailable Unavailable Allergies and adverse reactions Code CodeSystem Substance Reaction Severity StartDate Concern Status 6809 RXNORM metFORMIN Diarrhea (code- 46054602, SNOMED CT) Moderate Unknown active 56721 RXNORM amLODIPine Unknown Unknown active Care Team Name Role Address Phone Organization Dates Toby Daly PCP [facility], [address], [place], [address], [place] (Office): [facility] 07/25/2024 - 08/17/2024 Leena Caballero Attending Physician [facility] 07/25/2024 - 08/17/2024 Rhonda Calhoun Attending Physician [facility] [address] [place] [address], [place], [place], [place], [place] (Office): : [facility] 07/25/2024 - 08/17/2024 Goals Section Description Status Target Date Goal: to minimize risk of infection Active 08/12/2024 No falls during stay at facility. Active 08/12/2024 Resident Intake of Nutrients Will Meet Metabolic Needs Active 08/12/2024 Resident will be comfortable per his/her stateme nt. Active 08/12/2024 Resident will remain contine nt of bowel throughout stay at facility. Active 08/12/2024 Will return to baseline physical function prior to discharge. Active 08/12/2024 Functional Status Code Name Recorded Time Value Entered By Bathing 08/17/2024 Not assessed stephane Chair/swy-cb-flwle transfer 08/17/2024 Not assessed agustilo Eating 08/17/2024 Not assessed agustilo Feeding or Eating 08/17/2024 Not assessed agustilo Indicate the type of wheelch air or scooter used 08/17/2024 Not assessed agustilo Indicate the type of wheelch air or scooter used 08/17/2024 Not assessed agustilo Lower body dressing 08/17/2024 Not assessed agustilo Lying to sitting on side of bed 08/17/2024 Not asses sed agustilo Oral hygiene 08/17/2024 Not assessed agustilo Personal hygiene 08/17/2024 Not assessed agustilo Picking up object 08/17/2024 Not assessed agustilo Putting on/taking off footwear 08/17/2024 Not assess ed agustilo Roll left and right 08/17/2024 Not assessed agustilo Shower/bathe self 08/17/2024 Not assessed agustilo Sit to lying 08/17/2024 Not assessed agustilo Sit to stand 08/17/2024 Not assessed agustilo Toilet transfer 08/17/2024 Not assessed agustilo Toileting 08/17/2024 Not assessed agustilo Toileting hygiene 08/17/2024 Not assessed agustilo Transferring 08/17/2024 Not assessed agustilo Upper body dressing 08/17/2024 Not assessed agustilo Walk 10 feet 08/17/2024 Not assessed agustilo Walk 150 feet 08/17/2024 Not assessed agustilo Walk 50 feet 08/17/2024 Not assessed agustilo Wheel 150 feet 08/17/2024 Not assessed agustilo Wheel 50 feet with two turns 08/17/2024 Not assessed agustilo Immunizations Immunization Status Vaccine Details Vaccine Code CodeSystem Date Notes TB 2 Step Mantoux Skin Test completed tuberculin skin test; unspecified formulation lotNumber: [id number] expiry: 03/18/2027 Mfg: Sanofi Given 0.1 ml Right Forearm intradermally Step 2 of Multi-step 98 CVX created date: 07/28/2024 consent date: 07/25/2024 administer ed date: 08/08/2024 TB 2 Step Mantoux Skin Test completed tuberculin skin test; unspecified formulation lotNumber: [id number] expiry: 03/18/2027 Mfg: Sanofi Given 0.1 ml Left Forearm intradermally Step 1 of Multi-step with next step required 98 CVX created date: 07/25/2024 consent date: 07/25/2024 administer ed date: 07/25/2024 Educated by on 07/28/2024 Negative test read on 07/27/24 by Abel Vazquez LPN TDAP completed created date: 07/22/2024 administer ed date: 06/12/2020 PPSV23, Pneumovax 23 completed created date: 07/22/2024 administer ed date: 01/29/2010 Influenza-High Dose completed Influenza, high-dose, split virus, quadrivalent, injectable, preservative free 197 CVX created date: 07/22/2024 administer ed date: 01/27/2024 Shingrix (Inactivated Shingles) completed created date: 07/22/2024 administer ed date: 10/10/2020 Shingrix (Inactivated Shingles) completed created date: 07/22/2024 administer ed date: 06/12/2020 COVID-19 Vaccine dose 1 completed Mfg: Pfizer created date: 07/22/2024 administer ed date: 07/03/2020 COVID-19 Vaccine dose 2 completed Mfg: Pfizer created date: 07/22/2024 administer ed date: 07/24/2020 PCV20, Prevnar 20 completed Pneumococcal conjugate vaccine 20-valent (PCV20), polysaccharide [id number] conjugate, adjuvant, preservative free 216 CVX created date: 07/22/2024 administer ed date: 12/30/2021 COVID-19 SARS completed SARS-COV-2 (COVID-19) vaccine, mRNA, spike protein, LNP, preservative free, 50 mcg/0.5 mL dose Mfg: Moderna 312 CVX created date: 07/22/2024 administer ed date: 01/27/2024 Medications Section Medication Name Status Code CodeSystem Dose Route Frequency Admin Type Sig Text Start Date End Date Aspirin Oral Tablet Chewable aborted 81 mg Oral one time a day Routine Give 81 mg by mouth one time a day relate d to ATHERO SCLERO TIC HEART DISEAS E OF ENTERPRISE KENDALL RY ARTERY WITHOU T ANGINA PECTOR IS (I25.1 0) 08/17 Ascorbic Acid Oral Tablet aborted 500 mg Oral one time a day Routine Give 500 mg by mouth one time a day for Supple ment 08/17 Atorvastatin Calcium Oral Tablet aborted 20 mg Oral in the evening Routine Give 20 mg by mouth in the evenin g for choles terol manage ment 08/17 Albuterol Sulfate Inhalation Aerosol Powder Breath Activated 108 (90 Base) MCG/ACT aborted 938183 0 RXNORM 2 inhala tion Inhalat ion as needed PRN 2 inhala tion inhale orally every 4 hours as needed for ROSA ISELA relate d to OBSTRU CTIVE SLEEP APNEA (ADULT ) (PEDIA TRIC) (G47.3 3) 08/01 oxyCODONE HCl Oral Tablet 5 MG aborted 354193 1 RXNORM 1 tablet Oral as needed PRN Give 1 tablet by mouth every 4 hours as needed for Pain 2.5-5m g oral every 4-6 hours. Not to exceed 6 tabs per day; DC as soon as possib le AND Give 1 tablet by mouth every 6 hours as needed for Pain 2.5-5m g oral every 4-6 hours. Not to exceed 6 tabs per day; DC as soon as possib le AND Give 0.5 tablet by mouth every 4 hours as needed for Pain 2.5-5m g oral every 4-6 hours. Not to exceed 6 tabs per day; DC as soon as possib le AND Give 0.5 tablet by mouth every 6 hours as needed for Pain 2.5-5m g oral every 4-6 hours. Not to exceed 6 tabs per day; DC as soon as possib le 08/01 152925 1 RXNORM 1 tablet Oral as needed PRN Give 1 tablet by mouth every 4 hours as needed for Pain 2.5-5m g oral every 4-6 hours. Not to exceed 6 tabs per day; DC as soon as possib le AND Give 1 tablet by mouth every 6 hours as needed for Pain 2.5-5m g oral every 4-6 hours. Not to exceed 6 tabs per day; DC as soon as possib le AND Give 0.5 tablet by mouth every 4 hours as needed for Pain 2.5-5m g oral every 4-6 hours. Not to exceed 6 tabs per day; DC as soon as possib le AND Give 0.5 tablet by mouth every 6 hours as needed for Pain 2.5-5m g oral every 4-6 hours. Not to exceed 6 tabs per day; DC as soon as possib le 08/01 667810 1 RXNORM 0.5 tablet Oral as needed PRN Give 1 tablet by mouth every 4 hours as needed for Pain 2.5-5m g oral every 4-6 hours. Not to exceed 6 tabs per day; DC as soon as possib le AND Give 1 tablet by mouth every 6 hours as needed for Pain 2.5-5m g oral every 4-6 hours. Not to exceed 6 tabs per day; DC as soon as possib le AND Give 0.5 tablet by mouth every 4 hours as needed for Pain 2.5-5m g oral every 4-6 hours. Not to exceed 6 tabs per day; DC as soon as possib le AND Give 0.5 tablet by mouth every 6 hours as needed for Pain 2.5-5m g oral every 4-6 hours. Not to exceed 6 tabs per day; DC as soon as possib le 08/01 932259 1 RXNORM 0.5 tablet Oral as needed PRN Give 1 tablet by mouth every 4 hours as needed for Pain 2.5-5m g oral every 4-6 hours. Not to exceed 6 tabs per day; DC as soon as possib le AND Give 1 tablet by mouth every 6 hours as needed for Pain 2.5-5m g oral every 4-6 hours. Not to exceed 6 tabs per day; DC as soon as possib le AND Give 0.5 tablet by mouth every 4 hours as needed for Pain 2.5-5m g oral every 4-6 hours. Not to exceed 6 tabs per day; DC as soon as possib le AND Give 0.5 tablet by mouth every 6 hours as needed for Pain 2.5-5m g oral every 4-6 hours. Not to exceed 6 tabs per day; DC as soon as possib le 08/01 Carvedilol Oral Tablet aborted 25 mg Oral two times a day Routine Give 25 mg by mouth two times a day for beta blocke r 08/17 Eliquis Oral Tablet aborted 2.5 mg Oral two times a day Routine Give 2.5 mg by mouth two times a day relate d to DISPLA KAPIL INTERT ROCHAN TERIC FRACTU RE OF RIGHT FEMUR, SUBSEQ UENT ENCOUN TER FOR CLOSED FRACTU RE WITH ROUTIN E HEALIN G (S72.1 41D) 08/17 Tuberculin PPD Solution 5 UNIT/0.1ML complete d 188150 RXNORM 5 unit Intrade rmal every evening shift Routine Inject 5 unit intrad ermall y every evenin g shift for Tuberc ulin Skin Test (step 1 of 2) for 1 Day Jeanmarie bruner cturer , expira tion date and time of admini strati on under Immuni zation tab. Mantou x to be given on the evenin g shift. Mantou x to be read on the day shift in 3 days. Admini ster Step 2 in 2 weeks. 07/26 Tuberculin PPD Solution 5 UNIT/0.1ML complete d 704817 RXNORM 5 unit Intrade rmal every evening shift Routine Inject 5 unit intrad ermall y every evenin g shift for Tuberc ulin Skin Test (Step 2 of 2) for 1 Day Jeanmarie bruner cturer and expira tion date and time of admini strati on under Immuni zation tab. Mantou x to be given on the evenin g shift. 08/09 Sennosides Oral Tablet 8.6 MG aborted 092266 RXNORM 2 tablet Oral as needed PRN Give 2 tablet by mouth as needed for consti pation twice a day as needed 08/17 Acetaminophen Oral Tablet aborted 500 mg Oral as needed PRN Give 500 mg by mouth every 6 hours as needed for Pain 500mg every 6 hours prn; not to exceed 4000mg per day 07/25 Valsartan Oral Tablet aborted 160 mg Oral at bedtime Routine Give 160 mg by mouth at bedtim e for Blood Pressu re 08/01 Omeprazole Oral Tablet Delayed Release aborted 20 mg Oral two times a day Routine Give 20 mg by mouth two times a day relate d to GASTRO -ESOPH AGEAL REFLUX DISEAS E WITHOU T ESOPHA GITIS (K21.9 ) 08/08 Acetaminophen Oral Tablet 500 MG aborted RXNORM 2 tablet Oral two times a day Routine Give 2 tablet by mouth two times a day for pain AND Give 2 tablet by mouth as needed for pain daily 08/17 RXNORM 2 tablet Oral as needed PRN Give 2 tablet by mouth two times a day for pain AND Give 2 tablet by mouth as needed for pain daily 08/17 Jardiance Oral Tablet aborted 25 mg Oral one time a day Routine Give 25 mg by mouth one time a day relate d to TYPE 2 DIABET ES MELLIT US WITHOU T COMPLI CATION S (E11.9 ) 08/17 Cetirizine HCl Oral Tablet aborted 10 mg Oral one time a day Routine Give 10 mg by mouth one time a day for antihi stamin e 08/17 Spironolacton e Oral Tablet aborted 12.5 mg Oral one time a day Routine Give 12.5 mg by mouth one time a day relate d to ESSENT IAL (PRIMA RY) HYPERT ENSION (I10) 08/17 Vitamin E Mixed aborted 400 unit Oral one time a day Routine Give 400 unit by mouth one time a day for Supple ment 08/17 Valsartan Oral Tablet aborted 80 mg Oral at bedtime Routine Give 80 mg by mouth at bedtim e for Blood Pressu re 08/17 oxyCODONE HCl Oral Tablet 5 MG aborted 013539 1 RXNORM 1 tablet Oral as needed PRN Give 1 tablet by mouth every 6 hours as needed for Pain 08/15 NexIUM Oral Capsule Delayed Release 20 MG aborted 006899 RXNORM 1 capsul e Oral in the morning Routine Give 1 capsul e by mouth in the mornin g relate d to GASTRO -ESOPH AGEAL REFLUX DISEAS E WITHOU T ESOPHA GITIS (K21.9 ) 08/15 MiraLax Oral Powder 17 GM/SCOOP complete d 638718 RXNORM 17 gram Oral as needed PRN Give 17 gram by mouth as needed for Consti pation until 2024 21:25 PO QD PRN 08/16 Bisacodyl Suppository aborted 10 mg Rectal as needed PRN Insert 10 mg rectal ly as needed for consti pation Bisaco dyl suppos itory 10 mg WA bid prn 08/15 NexIUM Oral Capsule Delayed Release aborted 40 mg Oral in the morning Routine Give 40 mg by mouth in the mornin g relate d to GASTRO -ESOPH AGEAL REFLUX DISEAS E WITHOU T ESOPHA GITIS (K21.9 ) 08/17 Mental Status Section Date Assessment Total Score Description 08/01/2024 BIMS 15 cognitively int act PHQ-9 03 minimal depress ion 08/01/2024 BIMS 15 cognitively int act CAM 0 No delirium ind icated Problems Problem # Description Date of onset Resolved Date Code CodeSystem Concern Status 1 ACQUIRED ABSENCE OF OTHER SPECIFIED PARTS OF DIGESTIVE TRACT 07/26/[address] active 2 ATHEROSCLEROTIC HEART DISEASE OF ENTERPRISE CORONARY ARTERY WITHOUT ANGINA PECTORIS 07/26/[address] active 3 CHRONIC LYMPHOCYTIC LEUKEMIA OF B-CELL TYPE NOT HAVING ACHIEVED REMISSION 07/26/[address] active 4 DISPLACED INTERTROCHANTERIC FRACTURE OF RIGHT FEMUR, SUBSEQUENT ENCOUNTER FOR CLOSED FRACTURE WITH ROUTINE HEALING 07/26/[address] active 5 DIVERTICULOSIS OF INTESTINE, PART UNSPECIFIED, WITHOUT PERFORATION OR ABSCESS WITHOUT BLEEDING 07/26/[address] active 6 ESSENTIAL (PRIMARY) HYPERTENSION 07/26/[address] active 7 GASTRO-ESOPHAGEAL REFLUX DISEASE WITHOUT ESOPHAGITIS 07/26/[address] active 8 HYPERLIPIDEMIA, UNSPECIFIED 07/26/[address] active 9 INTERSTITIAL PULMONARY DISEASE, UNSPECIFIED 07/26/[address] active 10 IRRITABLE BOWEL SYNDROME, UNSPECIFIED 07/26/[address] active 11 NONRHEUMATIC AORTIC (VALVE) STENOSIS 07/26/[address] active 12 NOSOCOMIAL CONDITION 07/26/[address] active 13 OBSTRUCTIVE SLEEP APNEA (ADULT) (PEDIATRIC) 07/26/[address] active 14 PAROXYSMAL ATRIAL FIBRILLATION 07/26/[address] active 15 PNEUMONIA, UNSPECIFIED ORGANISM 07/26/[address] active 16 TYPE 2 DIABETES MELLITUS WITH OTHER SPECIFIED COMPLICATION 07/26/[address] active 17 TYPE 2 DIABETES MELLITUS WITH UNSPECIFIED DIABETIC RETINOPATHY WITHOUT MACULAR EDEMA 07/26/[address] active Reason for Referral No Reasons for Referral Entered Social History Social History Observation Description Start Date End Date Code Code System Current Smoking Status Tobacco smoking consumption unknown 571270665 SNOMED CT Sex Assigned At Male 1935 04229-1 [facility] Vital Signs Code Code System Vitals Name Values and Units Timing Information 84779-9 [facility] Weight Ydmig=952.0 Units=Lbs 06/2024 59332-5 [facility] Pain Level Value=0.0 08/17/2024 9279-1 [facility] Respiratory Rate Value=16.0 Units=/m in 08/16/2024 8462-4 [facility] Blood Pressure-Diastolic Value=48 Un its=mmHg 08/16/2024 8480-6 [facility] Blood Pressure-Systolic Ohqds=813 Un its=mmHg 08/16/2024 8310-5 [facility] Body Temperature Value=98.1 Units= F 08/16/2024 8867-4 [facility] Heart rate Value=72.0 Units=/min 05/2024 42919-9 [facility] O2 % BldC Oximetry Value=93.0 Units= % 08/16/2024 2339-0 [facility] Blood Sugar Yqtaq=992.0 Units=mg/dL 07/30/2024 8302-2 [facility] Height Value=67.0 Units=Inches 07/25/2024
--- OUTSIDE RECORDS SUMMARY | 2024-08-19 19:55 | XMS_ITS | Encounter Summary ---
Author Organization [facility] Address [address] [place] [address] Care Team Providers Care Shell Assembler Name Role Phone Elsewhere, Pcp Primary Care Provider Unavailabl e Reason for Visit * Reason Onset Date Comments Results 06/15/2024 Encounter Details Date Type Department Care Team (Latest Contact Info) Description 06/15/2024 Clinical Communication Department of Cardiovascular Medicine in [place], [place] [address] [place] [address] Gt Ricks, ROXANA, P.A.-C., M.S. [address] [place] [phone] Results Social History Tobacco Use Types Packs/Day [...] How often do you attend chur or religion services? Patient declined 12/31/2021 Do you belong to any clubs o r organizations such as episcopal groups, unions, fraternal [...] and heating? Not hard at all 12/31/2021 [facility] - Occupational Stress [...] slept in a senior living (including now)? 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
--- OUTSIDE RECORDS SUMMARY | 2024-08-19 19:55 | XMS_ITS | Clinical Summary ---
Author Organization [facility] Address [address] [place] [id number] Care Team Providers Care Electrical Equipment Technician Name Role Phone Luiz Bullock MD Primary [...] 03/25/20 22 Active cetirizine (ZYRTEC) 10 mg tabletIndications: Sore throat Take 1 Tablet (10 mg) by mouth once daily. 30 Tablet 09/15/19 24 Active albuterol HFA (PRO-AIR; VENTOLIN; PROVENTIL) 90 mcg/actuation inhalerIndications :Cough, unspecified type Inhale 1-2 Puffs by mouth every 4 hours if needed for Shortness Of Breath or Wheezing. 1 Each 1 09/25/19 24 Active inhalational spacing deviceIndications: Cough, unspecified type For home use. 1 Each 09/25/19 24 Active ipratropium (ATROVENT NASAL) 21 mcg (0.03 %) nasal sprayIndications:R hinitis, unspecified type Inhale 2 Sprays into affected nostril(s) 3 times daily if needed for Rhinitis. [place] dose in each nostril as needed for drainage 30 mL 12 10/21/19 24 Active blood sugar diagnostic (Accu-Chek Guide test strips) stripIndications:T ype 2 diabetes mellitus without complication, with long-term current use of insulin (HC) USE TO TEST 1 TIME DAILY 100 Each 3 11/09/19 24 Active omeprazole (PRILOSEC) 20 mg Delayed-Release capsuleIndications :Chronic GERD Take 1 Capsule (20 mg) by mouth two times daily before meals. 180 Capsule 3 02/26/20 24 Active CPAPIndications:OS A (obstructive sleep apnea) RESMED CPAP (E0601) machine for home use at pressure: 7 cmw, Choice of mask (A7030 or A7034) w/full face cushion (A7031) x1/mo, nasal cushion (A7032) x2/mo, or nasal pillows (A7033) x 2/mo; Length of Need: 99 months; Frequency of use: Daily 1 Each 11 03/10/20 24 Active fluticasone (50 mcg per actuation) nasal solution (FLONASE)Indicatio ns:Allergic rhinitis due to pollen, unspecified seasonality SHAKE LIQUID AND USE 2 SPRAYS IN EACH NOSTRIL EVERY DAY 48 g 2 03/27/20 24 Active Graduated Compression StockingsIndicatio ns:Bilateral lower extremity edema For personal use. Length: calf Strength: 16-20 mmHg Circumference in cm: 3 Packet 3 04/13/20 24 Active apixaban (ELIQUIS) 2.5 mg tabletIndications: Paroxysmal atrial fibrillation (HC) Take 1 Tablet (2.5 mg) by mouth two times daily. 180 Tablet 3 05/16/20 24 Active atorvastatin (LIPITOR) 20 mg tabletIndications: Hyperlipidemia, unspecified hyperlipidemia type Take 1 Tablet (20 mg) by mouth once daily with evening meal. 90 Tablet 3 05/16/20 24 Active carvediloL (COREG) 25 mg tabletIndications: HTN (hypertension) Take 1 Tablet (25 mg) by mouth two times daily with meals. 180 Tablet 3 05/16/20 24 Active empagliflozin (Jardiance) 25 mg tabletIndications: Type 2 diabetes mellitus without complication, with long-term current use of insulin (HC) Take 1 Tablet (25 mg) by mouth once daily. 90 Tablet 1 05/16/20 24 Active valsartan (DIOVAN) 320 mg tabletIndications: HTN (hypertension) Take 1 Tablet (320 mg) by mouth once daily. 90 Tablet 3 05/16/20 24 Active ascorbic acid, vitamin C, 500 mg cap Take by mouth. 08/28/19 23 Active vitamin E, dl,tocopheryl acet, (Vitamin E, DL, Acetate,) 400 unit capsule Take 400 units by mouth once daily. Active spironolactone (ALDACTONE) 25 mg tabletIndications: Benign essential HTN Take 1 Tablet (25 mg) by mouth once daily in the morning. 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 11/26/2021 Type 2 diabetes mellitus wit hout complication, with long-term current use of insulin 10/28/2021 Interstitial lung disease 08/22/2021 Irritable bowel syndrome with diarrhea 2 Hypertensive kidney disease, stage III 2 Coronary artery disease: JAMES , midLAD, prox Cx, OM1 01/10/2021 01/18/2021 Gynecomastia 08/06/2020 Bilateral lower extremity edema 07/03/2020 Migraine syndrome 05/03/2020 ROSA ISELA 04/02/2020 AHI-6.6 04/17/2020 Benign positional vertigo 03/26/2015 Hyperlipidemia 11/22/2012 Chronic lymphocytic leukemia 01/01/2011 Unspecified essential hypertension 10/02/2006 Esophageal reflux 10/02/2006 Resolved Problems Problem Noted Date Diagnosed Date Resolved Date Heart failure 08/22/2021 06/23/2023 Atrial fibrillation 04/17/2020 06/27/19 22 Cellulitis and abscess of leg, except foot 05/01/2009 06/27/2021 Diabetes mellitus, type 2 10/31/2008 Encounters Date Type Department Care Team Description 08/05/2024 Lab Requisition [facility] [phone] Rhonda Calhoun NP 07/29/2024 Lab Requisition [facility] [phone] Toby Daly MD 07/22/2024 Orders Only [facility] Scanner 1 scan: (1-Ord) [facility], XR CHEST 1V PORTABLE, 07/22/2024 07/20/2024 Orders Only [facility] Scanner 1 scan: (1-Ord) [facility], XR CLAVICLE RT, 07/20/2024 07/19/2024 Orders Only [facility] Scanner 1 scan: (1-Ord) [facility], XR FEMUR RT 1V, 07/19/2024 07/19/2024 Orders Only [facility] Scanner 1 scan: (1-Ord) [facility], LUMBAR SPINE 2-3V, 07/19/2024 07/19/2024 Orders Only [facility] Scanner 1 scan: (1-Ord) [facility], HIP RT WO CON , 07/19/2024 07/18/2024 Orders Only [facility] Scanner 1 scan: (1-Ord) [facility], HIP RT MIN 2V, 07/18/2024 07/18/2024 Orders Only [facility] Scanner 1 scan: (1-Ord) [facility], XR CHEST , 07/18/2024 07/12/2024 Refill [facility] [address] [place] [address] Luiz Bullock MD Refill Request (Spironolactone) 06/24/2024 1:00 PM GRINDING WHEEL FACER Procedure Only [facility] [address] [place] [address] Rebeca Brizuela L Ac Acupuncture 06/24/2024 Travel 06/03/2024 10:30 AM GRINDING WHEEL FACER Procedure Only [facility] [address] [facility] [place] [address] Rebeca Brizuela L Ac Acupuncture 06/03/2024 Travel 06/01/2024 3:45 PM GRINDING WHEEL FACER Office Visit [facility] [address] [place] [address] Luiz Bullock MD Follow Up 06/01/2024 Travel 05/27/2024 12:00 PM GRINDING WHEEL FACER Procedure Only [facility] [address] [place] [address] Rebeca Brizuela L Ac Acupuncture (Initial) 05/27/2024 Travel 05/23/2024 2:15 PM GRINDING WHEEL FACER Office Visit [facility] [address] [facility] [address] Aamir Ruiz MD emergency room follow up ([facility] emergency room follow up 05/22/2024 for palpitations) 05/23/2024 10:15 AM GRINDING WHEEL FACER Office Visit [facility] [address] [place] [address] 05/23/2024 Orders Only [facility] [address] [place] [address] Aamir Ruiz MD 1 scan: (1-Ord) NFLD-EKG-05/23/24 05/23/2024 Travel 05/22/2024 Orders Only [facility] Scanner 1 scan: (1-Ord) EKG, 05/22/2024 05/22/2024 Orders Only [facility] Scanner 1 scan: (1-Ord) [facility], 05/22/2024 from Last 3 Months Immunizations Immunization Administration Dates Next Due AMB INFLUENZA IIV3 [...] Virus, Unspecified 02/16/2012, 02/16/2008,02/15/2007,2002 Influenza, High-dose Inactivated 01/27/2024,110 01/2015,02/09/2014 Influenza, High-dose Quadriv alent Inactivated 02/17/2022,03/07/2021 [...] is your housing situation today? 1 09/15/2023 Utilities Answer Date Recorded Do you have trouble paying f or utilities (for example, heat, electricity, water, phone)? 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 file N ot on file Not on file Obstetrics History Last Filed Vital Signs Vital Sign Reading Time Taken Comments Blood Pressure 136/60 06/01/2024 4:11 PM GRINDING WHEEL FACER Pulse 71 06/01/2024 3:38 PM GRINDING WHEEL FACER Temperature 36.5 C (97.7 F) 09/15/2023 11:54 AM CDT Respiratory Rate 16 04/02/2023 1:19 PM GRINDING WHEEL FACER Oxygen Saturation 97% 06/01/2024 3:38 PM GRINDING WHEEL FACER Inhaled Oxygen Concentration - - Weight 78.8 kg (173 lb 12.8 oz) 06/01/2024 3:38 PM GRINDING WHEEL FACER Height 171 cm (5' 7.32) 03/10/2024 11: 29 AM CDT Body Mass Index 26.96 03/10/2024 11:29 AM CDT Plan of Treatment Upcoming Encounters Date Type Department Care Team (Late st Contact Info) Description 08/23/2024 2:30 PM CDT Office Visit [facility] [address] [place] [address] Luiz Bullock MD [address] [place] [address] 2024 2:05 PM CDT Office Visit [facility] [address] [place] [address] Luiz Bullock MD [address] [place] [address] Health Maintenance Due Date Last Done Comments RSV vaccine for adults or (1 - 1-dose 75+ series) 11/14/2010 COVID-19 vaccine series (9 - Pfizer risk season) 2024 01/27/2024, 05/21/2023, 10/21/2022, Additional history [...] 05/18/2004, Additional history exists Influenza Vaccine Completed 01/27/2024, , 03/06/2020, Additional history exists Procedures Procedure Name Priority Date/Time Associated Diagnosis Comments RED CELL MORPHOLOGY Routine 08/09/2024 7 :15 AM CDT 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) PLATELET ESTIMATE Routine 08/09/2024 7:1 5 AM CDT 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) MANUAL DIFFERENTIAL Routine 08/09/2024 7 :15 AM CDT 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) CBC WITH AUTO DIFFERENTIAL Routine 08/09/2024 7:15 AM CDT 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) CBC WITH AUTO DIFFERENTIAL Routine 08/09/2024 7:15 AM CDT 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) CWS PATH REVIEW HEMATOLOGY Routine 08/02/2024 7:50 AM CDT Other specified postprocedural states RED CELL MORPHOLOGY Routine 08/02/2024 7 :50 AM CDT Other specified postprocedural states PLATELET ESTIMATE Routine 08/02/2024 7:5 0 AM CDT Other specified postprocedural states MANUAL DIFFERENTIAL Routine 08/02/2024 7 :50 AM CDT Other specified postprocedural states CBC WITH AUTO DIFFERENTIAL Routine 08/02/2024 7:50 AM CDT Other specified postprocedural states BASIC METABOLIC PANEL Routine 08/02/2024 7:50 AM CDT Other specified postprocedural states CBC WITH AUTO DIFFERENTIAL Routine 08/02/2024 7:50 AM CDT Other specified postprocedural states SCAN-RADIOLOGY REPORT 07/22/2024 12:00 AM GRINDING WHEEL FACER SCAN-RADIOLOGY REPORT 07/20/2024 12:00 AM GRINDING WHEEL FACER SCAN-RADIOLOGY REPORT 07/19/2024 12:00 AM GRINDING WHEEL FACER SCAN-RADIOLOGY REPORT 07/19/2024 12:00 AM GRINDING WHEEL FACER SCAN-CT INTERPRETATION 12:00 AM GRINDING WHEEL FACER SCAN-RADIOLOGY REPORT 07/18/2024 12:00 AM GRINDING WHEEL FACER SCAN-RADIOLOGY REPORT 07/18/2024 12:00 AM GRINDING WHEEL FACER ACUPUNCTURE PLAN OF CARE Routine 06/24/2024 12:45 PM GRINDING WHEEL FACER Mechanical back pain Other low back pain ACUPUNCTURE PLAN OF CARE Routine 06/10/2024 2:40 PM GRINDING WHEEL FACER Mechanical back pain Other low back pain ACUPUNCTURE PLAN OF CARE Routine 06/03/2024 10:43 AM GRINDING WHEEL FACER Mechanical back pain Other low back pain EKG 12 LEAD Routine 05/23/2024 3:41 PM GRINDING WHEEL FACER Irregular heart beat Bradycardia WA READING EKG - NO CHARGE, COMP ONLY Routine 05/23/2024 3:39 PM GRINDING WHEEL FACER Irregular heart beat Bradycardia EXTENDED HOLTER Routine 05/23/2024 Irregular heart beat Bradycardia Frequent PVCs SCAN-ELECTROCARDIOGRAM EKG 05/22/2024 12:00 AM GRINDING WHEEL FACER SCAN-LABORATORY REPORT 12:00 AM GRINDING WHEEL FACER from Last 3 Months Results * (ABNORMAL) CBC WITH AUTO DIFFERENTIAL (08/09/2024 7:15 AM CDT) Only the most recent of2 resultswithin the time period is included. [facility] WHITE BLOOD COUNT 34.9(H) 4.5 - 11.0 thou/cu mm 08/09/2024 2:07 PM [facility] RED BLOOD COUNT 3.37(L) 4.30 - 5.90 mil/cu mm 08/09/2024 2:07 PM [facility] HEMOGLOBIN 9.4(L) 13.5 - 17.5 g/dL 08/09/2024 2:07 PM [facility] HEMATOCRIT 31.5(L) 37.0 - 53.0 % 08/09/2024 2:07 PM [facility] MCV 94 80 - 100 fL 08/09/2024 2:07 PM [facility] MCH 27.9 26.0 - 34.0 pg 08/09/2024 2:07 PM [facility] MCHC 29.8(L) 32.0 - 36.0 g/dL 08/09/2024 2:07 PM [facility] RDW 17.8(H) 11.5 - 15.5 % 08/09/2024 2:07 PM [facility] PLATELET COUNT 318 140 - 440 thou/cu mm 08/09/2024 2:07 PM [facility] MPV 12.2(H) 6.5 - 11.0 fL 08/09/2024 2:07 PM [facility] Blood BLOOD SPECIMEN / Unknown Butterfly / Unknown 08/09/2024 7:15 AM CDT 08/09/2024 9:20 AM CDT us Rhonda Calhoun NP HEMATOLOGY Final Resul t [facility] [address] [place] [address] * (ABNORMAL) RED CELL MORPHOLOGY (08/09/2024 7:15 AM CDT) Only the most recent of2 resultswithin the time period is included. ELLIPTOCYTES Few 08/09/2024 2:07 PM [facility] TARGET CELLS Few 08/09/2024 2:07 PM [facility] RBC COMMENT Present(A) RBC morphology appears normal, RBC morphology within normal limits for newborns. 08/09/2024 2:07 PM [facility] LARGE PLATELETS Present 2:07 PM [facility] Blood BLOOD SPECIMEN / Unknown Butterfly / Unknown 08/09/2024 7:15 AM CDT 08/09/2024 9:20 AM CDT Rhonda Calhoun NP HEMATOLOGY Final Resul t Performing Organization Address City/[facility] Co de Phone Number [facility] [address] [place] [address] * PLATELET ESTIMATE (08/09/2024 7:15 AM CDT) Only the most recent of2 resultswithin the time period is included. Pathologist [facility] PLATELET ESTIMATE Adequate Adequate, No estimate 08/09/2024 2:07 PM [facility] Blood BLOOD SPECIMEN / Unknown Butterfly / Unknown 08/09/2024 7:15 AM CDT 08/09/2024 9:20 AM CDT Rhonda Calhoun NP HEMATOLOGY Final Resul t Performing Organization Address [facility] de Phone Number [facility] [address] [place] [address] * (ABNORMAL) MANUAL DIFFERENTIAL (08/09/2024 7:15 AM CDT) Only the most recent of2 resultswithin the time period is included. Pathologist [facility] % NEUTROPHILS 26.0 % 08/09/2024 2:07 PM [facility] % LYMPHOCYTES 71.0 % 08/09/2024 2:07 PM [facility] % MONOCYTES 1.0 % 08/09/2024 2:07 PM [facility] % EOSINOPHILS 2.0 % 08/09/2024 2:07 PM [facility] % BASOPHILS 0.0 % 08/09/2024 2:07 PM [facility] NEUTROPHILS ABSOLUTE 9.1(H) 1.7 - 7.0 thou/cu mm 08/09/2024 2:07 PM [facility] LYMPHOCYTES ABSOLUTE 24.8(H) 0.9 - 2.9 thou/cu mm 08/09/2024 2:07 PM [facility] MONOCYTES ABSOLUTE 0.3 <0.9 thou/cu mm 08/09/2024 2:07 PM CDT [facility] EOSINOPHILS ABSOLUTE 0.7(H) <0.5 thou/cu mm 08/09/2024 2:07 PM CDT [facility] BASOPHILS ABSOLUTE 0.0 <0.3 thou/cu mm 08/09/2024 2:07 PM CDT [facility] Blood BLOOD SPECIMEN / Unknown Butterfly / Unknown 08/09/2024 7:15 AM CDT 08/09/2024 9:20 AM CDT us Rhonda Calhoun NP HEMATOLOGY Final Resul t [facility] [address] [place] [address] * CWS PATH REVIEW HEMATOLOGY (08/02/2024 7:50 AM CDT) PATH COMMENT Reviewed by BB on 08/04/2024 08/04/2024 8:53 AM CDT [facility] Blood BLOOD SPECIMEN / Unknown Butterfly / Unknown 08/02/2024 7:50 AM CDT 08/02/2024 9:08 AM CDT us Toby Daly MD LABORATORY Final Result [facility] [address] [place] [address], * (ABNORMAL) BASIC METABOLIC PANEL (08/02/2024 7:50 AM CDT) SODIUM 139 136 - 145 mmol/L 08/02/2024 9:39 AM CDT [facility] POTASSIUM 4.5 3.5 - 5.1 mmol/L 08/02/2024 9:39 AM CDT [facility] CHLORIDE 108(H) 98 - 107 mmol/L 08/02/2024 9:39 AM CDT [facility] CO2,TOTAL 21(L) 22 - 29 mmol/L 08/02/2024 9:39 AM [facility] ANION GAP 10 5 - 18 08/02/2024 9:39 AM [facility] GLUCOSE 129(H) 70 - 99 mg/dL 08/02/2024 9:39 AM [facility] CALCIUM 8.8 8.8 - 10.4 mg/dL 08/02/2024 9:39 AM [facility] Comment: Reference ranges for this test were updated on 03/22/2024 to reflect our healthy population more accurately. Reference range changes are not retroactively applied to results, but previous results using the same methodology can be interpreted in the context of the new reference range. BUN 28(H) 8 - 23 mg/dL 08/02/2024 9:39 AM [facility] CREATININE 0.95 0.70 - 1.20 mg/dL 08/02/2024 9:39 AM [facility] BUN/CREAT RATIO 29(H) 10 - 20 9:39 AM [facility] eGFR 77(L) >90 mL/min/1. 73m2 08/02/2024 9:39 AM [facility] Comment:As of 2021, eG FR is calculated by the CKD-EPI creatinine equation without race adjustment. eGFR can be influenced by muscle mass, exercise, and diet. The reported eGFR is an estimation only and is only applicable if the renal function is stable. Blood BLOOD SPECIMEN / Unknown Butterfly / Unknown 08/02/2024 7:50 AM CDT 08/02/2024 9:08 AM CDT us Toby Daly MD CHEMISTRY Final Result [facility] [address] [place] [address] * SCAN-RADIOLOGY REPORT (07/22/2024 12:00 AM GRINDING WHEEL FACER) Only the most recent of6 resultswithin the time period is included. Anatomical Region Laterality Modality Other us Scanner OTHER Final Result * SCAN-CT INTERPRETATION (07/19/2024 12:00 AM GRINDING WHEEL FACER) Anatomical Region Laterality Modality Other us Scanner OTHER Final Result * EKG 12 LEAD (05/23/2024 3:41 PM GRINDING WHEEL FACER) Aamir Ruiz MD EKG ORD Final Res ult * WA READING EKG - NO CHARGE, COMP ONLY (05/23/2024 3:39 PM GRINDING WHEEL FACER) Aamir Ruiz MD PB - PROVIDER READINGS Fi nal Result * ZIO PATCH XT - weekly to monthly symptoms. Specifiy duration 3 days, 1 week, or 2 weeks (05/23/2024) 05/23/2024 Narrative Lamonte Howell MD - 06/10/2024 12:00 AM GRINDING WHEEL FACER Agree with Findings. 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 Signed By Lamonte Howell MD Procedure Note Lamonte Howell MD - 06/10/2024 Agree with Findings. 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 Signed By Lamonte Howell MD Aamir Ruiz MD CARDIAC SERVICES ORD Edit ed Result - Final * SCAN-LABORATORY REPORT (05/22/2024 12:00 AM GRINDING WHEEL FACER) us Scanner OTHER Final Result * SCAN-ELECTROCARDIOGRAM EKG (05/22/2024 12:00 AM GRINDING WHEEL FACER) us Scanner OTHER Final Result from Last 3 Months Insurance MEDICARE PB ONLY [facility] FED EMP MEDICARE PART A HB ONLY MEDICARE PART B HB ONLY * Guarantor: [employer] Account Type Relation to Patient Date of Phone Billing Address [facility] [employer] [email or web address] [facility] [place] [address] Care Teams Electrical Equipment Technician Relationship Specialty Start Date End Date Luiz Bullock MD [address] [place] [address] PCP - General Family Practice 07/03/20
--- OUTSIDE RECORDS SUMMARY | 2024-08-19 19:55 | XMS_ITS | Clinical Summary ---
Author Organization [facility] Address [address] [place] [id number] Care Team Providers Care Cement Patcher Name Role Phone Elsewhere, Pcp Primary Care Provider Unavailabl e Source Comments Patient records contain information from all sites at [facility]. For routine questions regarding patient records, call [phone] during business hours, M-F 8:00 AM - 5:00 PM Central Time. Record requests for emergency care only can be directed to [phone] at any time.[facility] Allergies Active Allergy Reactions Criticality [...] mouth daily. 45 tablet 3 1 Active fluticasone propionate (FLONASE) 50 mcg/actuation nasal spray [...] 4 (four) hours as needed. 4 Active vitamin E 180 mg (400 Unit) capsule Take 400 Units by mouth daily. 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 Overview (07/03/2022): Added automatically from request for surgery [id number] Anatomical Narrow Angle Bilateral 06/11/2022 Atrial Fibrillation Paroxysmal 04/15/2022 Overview (04/15/2022): Added automatically from request for surgery [id number] Atherosclerotic Heart Diseas e [place] Coronary Artery With Other Forms Angina Pectoris [...] (01/02/2021): Added automatically from request for surgery [id number] Chronic Migraine With Aura, Not Intractable, Without Status Migrainosus 01/01/2021 Stenosis Aortic Valve Acquired 12/31/2020 Diabetes Mellitus Type 2 12/31/2020 Amaurosis Fugax 12/31/2020 Lung Interstitial Disease 12/31/2020 Anemia 12/07/2018 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 Stenosis Aortic Valve Acquired (Primary Dx); Diabetes Mellitus Type 2 (HCC); Atherosclerotic Heart Disease [place] Coronary Artery With Other Forms Angina Pectoris (Angina Equivalent) (HCC); Coronary Stent Status Post; Hypertension Essential Primary; Beat Premature Ventricular 07/11/2024 Clinical Communication Department of Cardiovascular Medicine in [place], [place] [address] [place] [address] Gt Ricks MPAS P.A.-C., M.S. Results 07/01/2024 1:17 PM MECHANICAL RELIABILITY ENGINEER - 07/01/2024 11:59 PM MECHANICAL RELIABILITY ENGINEER Hospital Encounter Department of Radiology, [facility] in [place], [place] [address] [place] [address] Gt Ricks MPAS, P.A.-C., M.S. 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 Results 06/09/2024 1:33 PM MECHANICAL RELIABILITY ENGINEER - 06/09/2024 11:59 PM MECHANICAL RELIABILITY ENGINEER Hospital Encounter Department of Radiology, [facility] in [place], [place] [address] [place] [address] Gt Ricks MPAS, P.A.-C., M.S. Discharge Disposition: Home or Self Care 06/09/2024 10:36 AM MECHANICAL RELIABILITY ENGINEER - 06/09/2024 1:32 PM MECHANICAL RELIABILITY ENGINEER Hospital Encounter Department of Radiology, [facility] in [place], [place] [address] [place] [phone] Gt Ricks MPAS, P.A.-C., M.S. Stenosis Aortic Valve Acquired; Coronary Stent Status Post; Diabetes Mellitus Type 2 (HCC); Atherosclerotic Heart Disease [place] Coronary Artery With Other Forms Angina Pectoris (Angina Equivalent) (HCC); Hypertension Essential Primary; Atrial Fibrillation Unspecified (HCC) Discharge Disposition: Home or Self Care 06/06/2024 1:00 PM MECHANICAL RELIABILITY ENGINEER Office Visit Department of Cardiovascular Medicine in [place], [place] [address] [place] [phone] Gt Ricks MPAS, P.A.-C., M.S. Beat Premature Ventricular (Primary Dx); Stenosis Aortic Valve Acquired; Atherosclerotic Heart Disease [place] Coronary Artery With Other Forms Angina Pectoris (Angina Equivalent) (HCC); Coronary Stent Status Post; Atrial Fibrillation Paroxysmal (HCC); Diabetes Mellitus Type 2 (HCC); Dyspnea On Exertion; Anemia 06/06/2024 11:41 AM MECHANICAL RELIABILITY ENGINEER - 06/06/2024 11:59 PM MECHANICAL RELIABILITY ENGINEER Hospital Encounter Department of Laboratory Medicine and Pathology, [place], [place] [address] [place] [phone] Gt Ricks MPAS, P.A.-C., M.S. Stenosis Aortic Valve Acquired; Coronary Stent Status Post; Diabetes Mellitus Type 2 (HCC); Atherosclerotic Heart Disease [place] Coronary Artery With Other Forms Angina Pectoris (Angina Equivalent) (HCC); Hypertension Essential Primary; Atrial Fibrillation Unspecified (HCC); Bradycardia; Palpitations; Shortness Of Breath Discharge Disposition: Home or Self Care 06/06/2024 11:20 AM MECHANICAL RELIABILITY ENGINEER - 06/06/2024 11:40 AM MECHANICAL RELIABILITY ENGINEER Hospital Encounter Department of Radiology, [facility] in [place], [place] [address] [place] [phone] Gt Ricks MPAS P.A.-C., M.S. Stenosis Aortic Valve Acquired; Atherosclerotic Heart Disease [place] Coronary Artery With Other Forms Angina Pectoris (Angina Equivalent) (HCC); Coronary Stent Status Post; Atrial Fibrillation Unspecified (HCC); Hypertension Essential Primary; Bradycardia; Palpitations Discharge Disposition: Home or Self Care 05/23/2024 Clinical Communication Department of Cardiovascular Medicine in [place], [place] [address] [place] [address] [employer]ervoir [employer] ConsultantRenny M.D. from Last 3 Months Immunizations Immunization Administration Dates Next Due HepA Adult 10/10/2020(Deferred: [...] How often do you attend chur or buddhism services? Patient declined 12/31/2021 Do you belong to any clubs o r organizations such as sikhism groups, unions, fraternal [...] heating? Not hard at all 12/31/2021 [facility] [employer] - Occupational Stress [...] PM CDT Legal Sex Male 8:35 AM MECHANICAL RELIABILITY ENGINEER Gender Identity Male 12/09/2017 1:17 PM CDT Sexual Orientation Straight 12/09/2017 1: 17 PM CDT Last Filed Vital Signs Vital Sign Reading Time Taken Comments Blood Pressure 127/69 06/06/2024 12:40 PM MECHANICAL RELIABILITY ENGINEER Pulse 72 06/06/2024 12:40 PM MECHANICAL RELIABILITY ENGINEER Temperature 36.2 C (97.2 F) 11/13/2023 12:50 PM CDT Respiratory Rate 21 11/13/2023 1:25 PM CDT Oxygen Saturation 98% 02/08/2024 9:30 AM CDT Inhaled Oxygen Concentration - - Weight 77.9 kg (171 lb 11.8 oz) 025 12:40 PM MECHANICAL RELIABILITY ENGINEER Height 170 cm (5' 6.93) 06/06/2024 12: 40 PM MECHANICAL RELIABILITY ENGINEER Body Mass Index 26.96 06/06/2024 12:40 PM MECHANICAL RELIABILITY ENGINEER Plan of Treatment Health Maintenance Due Date Last Done Comments Diabetic Office Visit with Foot Exam 1935 Urine Albumin 1935 RSV vaccine - (32-36 weeks) or 60+ years (1 - 1-dose 75+ series) 11/14/2010 Hepatitis B Vaccines (2 of 3 - Risk 3-dose series) 11/07/2020 10/10/2020 Hemoglobin A1C 04/20/2024 10/20/2023, 12/10/2022, 10/21/2022, Additional history exists Depression Screening (Annual PHQ-2) 05/18/2024 Fall Risk Screen (Annual) 05/18/2024 COVID-19 Vaccine (9 - Pfizer risk 2023- season) 2024 01/27/2024, 05/21/2023, 10/21/2022, Additional history exists Dilated Eye Exam 08/11/2024 08/12/2023, , 08/07/2022, Additional history exists Creatinine Level (Kidney Function Test) 08/02/2025 08/02/2024, 06/06/2024, 02/04/2024, Additional history exists Potassium Level 08/02/2025 08/02/2024, 05/19, 02/04/2024, Additional history exists Sodium Level 08/02/2025 08/02/2024, 05/19, 02/04/2024, Additional history exists DTaP,Tdap,and Td Vaccines (2 [...] this topic Medical Devices Implanted Type Area Service Associate Device Identifier Shelf Expiration Date Model / Serial / Lot Stnt Synergy Xd De 2.50x32 - [id number] Implanted:Qty : 1 on 01/10/2021 by Jeffery Arroyo M.D., Ph.D. at [facility] Cardiac Stent N/A: Coronary [employer] 04/30/2022 [id number] / / [id number] Description:Mid LAD Stnt Synergy Xd De 3.00x32 - [id number] Implanted:Qty : 1 on 01/10/2021 by Jeffery Arroyo M.D., Ph.D. at [facility] Cardiac Stent N/A: Coronary [employer] 09/27/2022 [id number] / / [id number] Description:OM Stnt Synergy Xd De 3.50x12 - [id number] Implanted:Qty : 1 on 01/10/2021 by Jeffery Arroyo M.D., Ph.D. at [facility] Cardiac Stent N/A: Coronary [employer] 08/21/2022 [id number] / / [id number] Description:pLCx Lens Tcn Mnfcl Dcb00 +22.5d - [id number] - [id number] Implanted:Qty : 1 on 09/11/2022 by Rosina Manuel M.D. at [facility] Ocular Lens Left: Eye [employer] (Previously [place]) 07/01/2025 [id number] / [id number] / Lens Tcn Mnfcl Dcb00 +23.0d - [id number] - [id number] Implanted:Qty : 1 on 10/28/2022 by Santosh Toth M.D., Ph.D. 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) Chronic Diastolic (Congestive) Heart Failure (HCC) [place] FNA BX WO IMG 1ST LESION Routine 07/01/2024 1:00 PM MECHANICAL RELIABILITY ENGINEER Dyspnea On Exertion Beat Premature Ventricular Stenosis Aortic Valve Acquired Atherosclerotic Heart Disease [place] Coronary Artery With Other Forms Angina Pectoris (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) Chronic Diastolic (Congestive) Heart Failure (HCC) SUBCUTANEOUS FAT ASPIRATE Routine 07/01/2024 12:00 AM MECHANICAL RELIABILITY ENGINEER NM CARDIAC AMYLOID PYP SPECT CT RAD - Routine (most inpatients and all outpatients) 06/09/2024 2:55 PM MECHANICAL RELIABILITY ENGINEER Stenosis Aortic Valve Acquired Coronary Stent Status Post Diabetes Mellitus Type 2 (HCC) Atherosclerotic Heart Disease [place] Coronary Artery With Other Forms Angina Pectoris (Angina Equivalent) (HCC) Hypertension Essential Primary Atrial Fibrillation Unspecified (HCC) ECG Routine 06/06/2024 12:10 PM MECHANICAL RELIABILITY ENGINEER Stenosis Aortic Valve Acquired Atherosclerotic Heart Disease [place] Coronary Artery With Other Forms Angina Pectoris (Angina Equivalent) (HCC) Coronary Stent Status Post Atrial Fibrillation Unspecified (HCC) Hypertension Essential Primary Bradycardia Palpitations QUANTITATIVE M-PROTEIN STUDY, S Routine 06/06/2024 11:55 AM MECHANICAL RELIABILITY ENGINEER Beat Premature Ventricular Stenosis Aortic Valve Acquired Atherosclerotic Heart Disease [place] Coronary Artery With Other Forms Angina Pectoris (Angina Equivalent) (HCC) Coronary Stent Status Post Atrial Fibrillation Paroxysmal (HCC) Diabetes Mellitus Type 2 (HCC) Dyspnea On Exertion Anemia THYROID FUNCTION CASCADE, S Routine 06/06/2024 11:55 AM MECHANICAL RELIABILITY ENGINEER Stenosis Aortic Valve Acquired Atherosclerotic Heart Disease [place] Coronary Artery With Other Forms Angina Pectoris (Angina Equivalent) (HCC) Coronary Stent Status Post Atrial Fibrillation Unspecified (HCC) Hypertension Essential Primary Bradycardia Palpitations BASIC METABOLIC PANEL, S/P Routine 06/06/2024 11:55 AM MECHANICAL RELIABILITY ENGINEER Stenosis Aortic Valve Acquired Atherosclerotic Heart Disease [place] Coronary Artery With Other Forms Angina Pectoris (Angina Equivalent) (HCC) Coronary Stent Status Post Atrial Fibrillation Unspecified (HCC) Hypertension Essential Primary Bradycardia Palpitations CBC WITH DIFFERENTIAL, B Routine 06/06/2024 11:55 AM MECHANICAL RELIABILITY ENGINEER Stenosis Aortic Valve Acquired Atherosclerotic Heart Disease [place] Coronary Artery With Other Forms Angina Pectoris (Angina Equivalent) (HCC) Coronary Stent Status Post Atrial Fibrillation Unspecified ([facility]) Hypertension Essential Primary Bradycardia Palpitations NT-PRO B-TYPE NATRIURETIC PEPTIDE (BNP), S Routine 06/06/2024 11:55 AM MECHANICAL RELIABILITY ENGINEER Stenosis Aortic Valve Acquired Atherosclerotic Heart Disease [place] Coronary Artery With Other Forms Angina Pectoris (Angina Equivalent) (HCC) Coronary Stent Status Post Atrial Fibrillation Unspecified ([facility]) Hypertension Essential Primary Bradycardia Palpitations Shortness Of Breath MAGNESIUM, S Routine 06/06/2024 11:55 AM MECHANICAL RELIABILITY ENGINEER Stenosis Aortic Valve Acquired Atherosclerotic Heart Disease [place] Coronary Artery With Other Forms Angina Pectoris (Angina Equivalent) (HCC) Coronary Stent Status Post Atrial Fibrillation Unspecified ([facility]) Hypertension Essential Primary Bradycardia Palpitations IMMUNOGLOBULIN FREE LIGHT CHAINS, S Routine 06/06/2024 11:55 AM MECHANICAL RELIABILITY ENGINEER Stenosis Aortic Valve Acquired Coronary Stent Status Post Diabetes Mellitus Type 2 (HCC) Atherosclerotic Heart Disease [place] Coronary Artery With Other Forms Angina Pectoris (Angina Equivalent) (HCC) Hypertension Essential Primary Atrial Fibrillation Unspecified (HCC) TROPONIN T, 5TH GEN, P Routine 06/06/2024 11:54 AM MECHANICAL RELIABILITY ENGINEER Stenosis Aortic Valve Acquired Coronary Stent Status Post Diabetes Mellitus Type 2 (HCC) Atherosclerotic Heart Disease [place] Coronary Artery With Other Forms Angina Pectoris (Angina Equivalent) (HCC) Hypertension Essential Primary Atrial Fibrillation Unspecified (HCC) DX CHEST AP OR PA AND LATERAL 2 VIEWS RAD - Routine (most inpatients and all outpatients) 06/06/2024 11:31 AM MECHANICAL RELIABILITY ENGINEER Stenosis Aortic Valve Acquired Atherosclerotic Heart Disease [place] Coronary Artery With Other Forms Angina Pectoris (Angina Equivalent) (HCC) Coronary Stent Status Post Atrial Fibrillation Unspecified (HCC) Hypertension Essential Primary Bradycardia Palpitations OPHTHALMOLOGY IMAGE EXAM Routine 08/12/2023 12:00 AM CDT from Last 3 Months or Most Recently Relevant to Health Maintenance Results * MR Cardiac without and with IV Contrast (07/01/2024 3:29 PM MECHANICAL RELIABILITY ENGINEER) Anatomical Region Laterality Modality Cardiac, Cardiovascular RST LOS, Thoracic ARZ LOS, Cardiovascular FLA LOS N/A Magnetic Resonance Impressions 07/01/2024 4:54 PM MECHANICAL RELIABILITY ENGINEER 1. Mildly enlarged left ventricular chamber size [...] nulling kinetics are normal. However, the elevated [place] T1 mapping and extracellular volume values raise the possibility of cardiac amyloidosis. Other nonischemic etiologies, such as cardiac sarcoidosis and sequelae of prior myocarditis are other diagnostic considerations. 3. Normal right ventricular chamber size and systolic function. 4. Moderate aortic valve stenosis and mild to moderate aortic valve regurgitation. 5. Bilateral small pleural effusions, left greater than right. Narrative 07/01/2024 4:54 PM MECHANICAL RELIABILITY ENGINEER EXAM: MR CARDIAC WITHOUT AND WITH IV CONTRAST COMPARISON: Cardiac amyloid SPECT CT 06/09/2024. FINDINGS: LEFT VENTRICLE: Mildly enlarged left ventricular chamber size. Mild concentric wall thickening. Normal myocardial nulling kinetics. Hypokinesis involving the mid anteroseptal and apical septal segments in addition to the basal inferolateral segment. There is mid myocardial late gadolinium enhancement in the basal inferolateral segment. [place] T1 mapping and calculated extracellular volume values [...] lategadolinium enhancement in the basal inferolateral segment. [place] T1 mapping and calculated extracellular volume values [...] effusions, left greater than right. Gt SCHMIDT PQuique.Nani., M.S. IMG MRI PROC EDURES Final Result * [place] FNA BX WO IMG 1ST LESION (07/01/2024 1:00 PM MECHANICAL RELIABILITY ENGINEER) Narrative Luiz Giraldo R.N. - 07/01/2024 1:00 PM MECHANICAL RELIABILITY ENGINEER Luiz Giraldo R.N. 07/01/2024 1:07 PM Fat [...] 1% Lidocaine given SQ per site. Gt SCHMIDT P.A.-C., M.S. PROCEDURE/CT NOR SURGICAL ORDERABLES Final Result * Subcutaneous Fat Aspirate (07/01/2024 12:00 AM [facility]) 07/04/2024 11:26 AM [facility] Report electronically signed by Jovon Law M.D. I verify that I have examined all relevant slides/material s for the specimen(s) and rendered or confirmed the diagnosis. 07/04/2024 11:26 AM [facility] Gross Description The subcutaneous fat aspirate used for diagnostic purposes consists of 0.5 mL fat. 07/04/2024 11:26 AM MECHANICAL RELIABILITY ENGINEER [facility] Interpretation FINAL DIAGNOSIS [place] red stain, abdominal subcutaneous fat aspirate specimen: Amyloid is absent. 07/04/2024 11:26 AM MECHANICAL RELIABILITY ENGINEER [facility] 07/01/2024 07/01/2024 5:1 2 AM MECHANICAL RELIABILITY ENGINEER Gt SCHMIDT P.A.-C., M.S. LAB PATHOLOG Y/CYTOLOGY ORDERABLES Final Result [facility] [address] [place] [address], [facility] [address] [place] [address] * NM Cardiac Amyloid SPECT CT (06/09/2024 2:55 PM MECHANICAL RELIABILITY ENGINEER) 06/09/2024 1:33 PM MECHANICAL RELIABILITY ENGINEER Narrative CV MERGE - 06/09/2024 3:09 PM MECHANICAL RELIABILITY ENGINEER See PDF For Result Procedure Note Antony Pimentel M.D., Ph.D. - 06/09/2024 See PDF For Result Gt SCHMIDT P.A.-C., M.S. IMG NM PROCE DURES Final Result Performing Organization Address [facility] Co de Phone Number CV MERGE NA * ECG 12 Lead (06/06/2024 12:10 PM MECHANICAL RELIABILITY ENGINEER) Ventricular Rate ECG/Min 74 BPM MUSE AK Interval 222 ms MUSE QRSD Interval 114 ms MUSE QT Interval 412 ms MUSE QTC Interval 457 ms MUSE P [place] 39 degrees MUSE R [place] -39 degrees MUSE T Wave [place] 66 degrees MUSE 06/06/2024 12:1 0 PM MECHANICAL RELIABILITY ENGINEER 06/06/2024 12:19 PM MECHANICAL RELIABILITY ENGINEER Impressions MUSE - 06/06/2024 12:19 PM MECHANICAL RELIABILITY ENGINEER Sinus rhythm with 1st degree A-V block Left axis deviation Non-specific intra-ventricular conduction delay When compared with ECG of 04-Feb-2024 11:05, No significant change was found Reviewed by KIA Holguin Narrative Procedure Note Nick Toney M.D., Ph.D. - 06/06/2024 IMPRESSION: Sinus rhythm with 1st degree A-V block Left axis deviation Non-specific intra-ventricular conduction delay When compared with ECG of 04-Feb-2024 11:05, No significant change was found Reviewed by KIA Holguin Gt SCHMIDT P.A.-C., M.S. ECG ORDERABL ES Final Result MUSE NA * Quantitative M-protein Study (06/06/2024 11:55 AM MECHANICAL RELIABILITY ENGINEER) Immunoglobulin A (IgA), S 96 61 - 356 mg/dL 06/08/2024 1:25 PM MECHANICAL RELIABILITY ENGINEER [facility] Immunoglobulin M (IgM), S 76 37 - 286 mg/dL 06/08/2024 1:24 PM MECHANICAL RELIABILITY ENGINEER [facility] Immunoglobulin G (IgG), S 822 767 - 1590 mg/dL 06/08/2024 1:25 PM MECHANICAL RELIABILITY ENGINEER [facility] Therapeutic Antibody Administered? Unspecified 06/08/2024 11:35 AM MECHANICAL RELIABILITY ENGINEER [facility] Flag, M-protein Isotype Negative Negative 06/09/2024 12:57 PM MECHANICAL RELIABILITY ENGINEER [facility] QMPTS Interpretation No monoclonal protein detected. 06/09/2024 12:57 PM MECHANICAL RELIABILITY ENGINEER [facility] Comment: ----ADDITIONAL INFORMATION---- The submitted sample was assayed by five separate immunopurifications for IgG, IgA, IgM, kappa and lambda. The result reflects the findings of either no monoclonal protein detected or those monoclonal immunoglobulins that were detected. This test was developed and its performance characteristics determined by [facility] in a manner consistent with CLIA requirements. This test has not been cleared or approved by the U.S. Food and Drug Administration. Blood (Blood, Venous) 06/06/2024 11:55 AM MECHANICAL RELIABILITY ENGINEER 06/08/2024 11:35 AM MECHANICAL RELIABILITY ENGINEER Narrative [facility] - 06/09/2024 12:57 PM MECHANICAL RELIABILITY ENGINEER Specimen Information: Specimen ID: [id number] Specimen Type: Blood Specimen Collection Start Date: 06/06/2024 11:55 AM Specimen Received Date: 06/08/2024 11:35 AM Specimen ID: [id number] Specimen Type: Blood Specimen Collection Start Date: 06/06/2024 11:55 AM Specimen Received Date: 06/08/2024 11:35 AM Gt SCHMIDT P.A.-C., M.S. LAB BLOOD AD D-ON Final Result Performing Organization Address City/[facility]/ZIP Co de Phone Number [facility] [address] [place] [address] [facility] [address] [place] [place] [address] [facility] [address] [place] [address] [place] [address] * Thyroid Function [place] (06/06/2024 11:55 AM MECHANICAL RELIABILITY ENGINEER) Pathologist [facility] TSH, Sensitive 4.2 0.3 - 4.2 mIU/L 06/06/2024 1:38 PM MECHANICAL RELIABILITY ENGINEER DTL Blood (Blood, Venous) 06/06/2024 11:55 AM MECHANICAL RELIABILITY ENGINEER 06/06/2024 12:32 PM MECHANICAL RELIABILITY ENGINEER Gt SCHMIDT P.A.-C., M.S. LAB BLOOD AD D-ON Final Result Performing Organization Address [facility] de Phone Number [facility] [address] [place] [address], [facility] [address] [place] [address] * (ABNORMAL) NT-Pro B-Type Natriuretic Peptide (BNP) (06/06/2024 11:55 AM MECHANICAL RELIABILITY ENGINEER) NT-Pro BNP 5802(H) <=540 pg/mL 06/06/2024 1:38 PM MECHANICAL RELIABILITY ENGINEER DTL Comment: NT-proBNP values less than 300 [...] failure. Blood (Blood, Venous) 06/06/2024 11:55 AM MECHANICAL RELIABILITY ENGINEER 06/06/2024 12:32 PM MECHANICAL RELIABILITY ENGINEER Gt SCHMIDT P.A.-C., M.S. LAB BLOOD AD D-ON Final Result Performing Organization Address City/[facility]/ZIP Co de Phone Number [facility] [address] [place] [address], [place] [facility] [address] [place] [address] * (ABNORMAL) Immunoglobulin Free Light Chains (06/06/2024 11:55 AM MECHANICAL RELIABILITY ENGINEER) Keddie Free Light Chain, S 4.91(H) 0.3300 - 1.94 mg/dL 06/06/2024 6:25 PM MECHANICAL RELIABILITY ENGINEER SDSC Lambda Free Light Chain, S 2.44 0.5700 - 2.63 mg/dL 06/06/2024 6:26 PM MECHANICAL RELIABILITY ENGINEER SDSC Keddie/Lambda FLC Ratio 2.01(H) 0.2600 - 1.65 06/06/2024 6:26 PM MECHANICAL RELIABILITY ENGINEER SDSC Comment: Elevated free light chain ratios between 1.66 and 3.00 may occur due to polyclonal hypergammaglobulinemia or impaired renal clearance. An isolated increased free light chain ratio in this range should be interpreted with caution, and clinical correlation is recommended. Blood (Blood, Venous) 06/06/2024 11:55 AM MECHANICAL RELIABILITY ENGINEER 06/06/2024 2:27 PM MECHANICAL RELIABILITY ENGINEER Gt SCHMIDT P.A.-C., M.S. LAB BLOOD AD D-ON Final Result [facility] [address] [place] [address] [facility] [address] [place] [address] * (ABNORMAL) CBC with Differential, Blood (06/06/2024 11:55 AM MECHANICAL RELIABILITY ENGINEER) [facility] Hemoglobin 10.9(L) 13.2 - 16.6 g/dL 06/06/2024 12:36 PM MECHANICAL RELIABILITY ENGINEER DTL Hematocrit 35.7(L) 38.3 - 48.6 % 06/06/2024 12:36 PM MECHANICAL RELIABILITY ENGINEER DTL Erythrocytes 3.89(L) 4.35 - 5.65 x10(12)/L 06/06/2024 12:36 PM MECHANICAL RELIABILITY ENGINEER DTL MCV 91.8 78.2 - 97.9 fL 06/06/2024 12:36 PM MECHANICAL RELIABILITY ENGINEER DTL RBC Distrib Width 15.5(H) 11.8 - 14.5 % 06/06/2024 12:36 PM MECHANICAL RELIABILITY ENGINEER DTL Platelet Count 206 135 - 317 x10(9)/L 06/06/2024 12:36 PM MECHANICAL RELIABILITY ENGINEER DTL Leukocytes 27.7(H) 3.4 - 9.6 x10(9)/L 06/06/2024 12:36 PM MECHANICAL RELIABILITY ENGINEER DTL Neutrophils 8.41(H) 1.56 - 6.45 x10(9)/L 06/06/2024 2:57 PM MECHANICAL RELIABILITY ENGINEER DHPM Lymphocytes 18.11(H) 0.95 - 3.07 x10(9)/L 06/06/2024 2:57 PM MECHANICAL RELIABILITY ENGINEER DTL Monocytes 0.94(H) 0.26 - 0.81 x10(9)/L 06/06/2024 2:57 PM MECHANICAL RELIABILITY ENGINEER DTL Eosinophils 0.15 0.03 - 0.48 x10(9)/L 06/06/2024 2:57 PM MECHANICAL RELIABILITY ENGINEER DTL Basophils 0.06 0.01 - 0.08 x10(9)/L 06/06/2024 2:57 PM MECHANICAL RELIABILITY ENGINEER DTL Blood (Blood, Venous) 06/06/2024 11:55 AM MECHANICAL RELIABILITY ENGINEER 06/06/2024 12:17 PM MECHANICAL RELIABILITY ENGINEER Gt SCHMIDT, P.A.-C., M.S. LAB BLOOD AD D-ON Final Result [facility] [address] [place] [address], [facility] DTL [facility] [address] [place] [address] [facility] [address] [place] [address] * Magnesium (06/06/2024 11:55 AM MECHANICAL RELIABILITY ENGINEER) Pathologist [facility] Magnesium, S 2.0 1.7 - 2.3 mg/dL 06/06/2024 1:38 PM MECHANICAL RELIABILITY ENGINEER DTL Blood (Blood, Venous) 06/06/2024 11:55 AM MECHANICAL RELIABILITY ENGINEER 06/06/2024 12:32 PM MECHANICAL RELIABILITY ENGINEER Gt SCHMIDT PQuique.-C., M.S. LAB BLOOD AD D-ON Final Result [facility] [address] [place] [address], [facility] DTL [facility] [address] [place] [address] * (ABNORMAL) Basic Metabolic Panel (06/06/2024 11:55 AM MECHANICAL RELIABILITY ENGINEER) Pathologist [facility] Potassium, S 4.8 3.6 - 5.2 mmol/L 06/06/2024 1:38 PM MECHANICAL RELIABILITY ENGINEER DTL Sodium, S 141 135 - 145 mmol/L 06/06/2024 1:38 PM MECHANICAL RELIABILITY ENGINEER DTL Chloride, S 108(H) 98 - 107 mmol/L 06/06/2024 1:38 PM MECHANICAL RELIABILITY ENGINEER DTL Bicarbonate, S 22 22 - 29 mmol/L 06/06/2024 1:38 PM MECHANICAL RELIABILITY ENGINEER DTL Anion Gap 11 7 - 15 06/06/2024 1:38 PM MECHANICAL RELIABILITY ENGINEER DTL BUN (Blood Urea Nitrogen), S 29(H) 8 - 24 mg/dL 06/06/2024 1:38 PM MECHANICAL RELIABILITY ENGINEER DTL Creatinine 1.10 0.74 - 1.35 mg/dL 06/06/2024 1:38 PM MECHANICAL RELIABILITY ENGINEER DTL Estimated GFR (eGFR) 65 >=60 mL/min/BSA 06/06/2024 1:38 PM MECHANICAL RELIABILITY ENGINEER DTL Comment: Estimated GFR calculated using the 2020 CKD_EPI creatinine equation. Calcium, Total, S 8.9 8.8 - 10.2 mg/dL 06/06/2024 1:38 PM MECHANICAL RELIABILITY ENGINEER DTL Glucose, S 191(H) 70 - 140 mg/dL 06/06/2024 1:38 PM MECHANICAL RELIABILITY ENGINEER DTL Blood (Blood, Venous) 06/06/2024 11:55 AM MECHANICAL RELIABILITY ENGINEER 06/06/2024 12:32 PM MECHANICAL RELIABILITY ENGINEER Gt SCHMIDT P.A.-C., M.S. LAB BLOOD AD D-ON Final Result Performing Organization Address [facility]/ZIP Co de Phone Number [facility] [address] [place] [address], [facility] [address] [place] [address] * (ABNORMAL) Troponin T, 5th Generation (06/06/2024 11:54 AM MECHANICAL RELIABILITY ENGINEER) Troponin T, 5th gen 45(H) <=15 ng/L 06/06/2024 2:41 PM MECHANICAL RELIABILITY ENGINEER DTL Blood (Blood, Venous) 06/06/2024 11:54 AM MECHANICAL RELIABILITY ENGINEER 06/06/2024 12:33 PM MECHANICAL RELIABILITY ENGINEER Gabe Willett.Nani., M.S. LAB BLOOD AD D-ON Final Result Performing Organization Address [facility] Co de Phone Number [facility] [address] [place] [address], [facility] [address] [place] [address] * DX Chest AP or PA and Lateral 2 Views (06/06/2024 11:31 AM MECHANICAL RELIABILITY ENGINEER) Anatomical Region Laterality Modality Chest, Thoracic RST LOS, Tho racic ARZ LOS, Thoracic FLA LOS N/A Digital Radiography Impressions 06/06/2024 11:57 AM MECHANICAL RELIABILITY ENGINEER Compared to 09/05/2022, mildly increased reticulations with architectural distortion in bilateral subpleural peripheral lungs with basilar predominant consistent with worsening of fibrotic lung disease. Cardiac silhouette size is at upper limits of normal. Calcified tortuous aorta. Coronary artery stenting. Hypertrophic degenerative changes of the spine with multifocal loss of height of several vertebral bodies. Surgical clips right axilla. Right upper quadrant surgical clips. Narrative 06/06/2024 11:57 AM MECHANICAL RELIABILITY ENGINEER EXAM: DX CHEST AP OR PA AND LATERAL 2 VIEWS Procedure Note Alyssia Molina M.D. - 06/06/2024 EXAM: DX CHEST AP OR PA AND LATERAL 2 VIEWS IMPRESSION: Compared to 09/05/2022, mildly increased reticulations with architecturaldistortion in bilateral subpleural peripheral lungs with basilarpredominant consistent with worsening of fibrotic lung disease. Cardiacsilhouette size is at upper limits of normal. Calcified tortuous aorta. Coronary artery stenting.Hypertrophic degenerative changes of the spine with multifocal loss ofheight of several vertebral bodies. Surgical clips right axilla. Rightupper quadrant surgical clips. Gt SCHMIDT P.A.-Aleksandr., M.S. IMG DIAGNOST IC IMAGING PROCEDURES Final Result * Eyes Spectralis OCT-Ophthalmology Image Exam (08/12/2023 [...] Recently Relevant to Health Maintenance Insurance MEDICARE [facility] Advance Directives For more information, please contact: [phone] * Full Code (Latest Code Status on File) Date Activated Date Inactivated Comments 01/10/2021 12:05 PM 01/11/2021 2:12 PM Question Answer Comments Full Code: Discussed Care Teams Cement Patcher Relationship Specialty Start Date End Date Elsewhere, Pcp PCP - General Family Medicine 01/10/21
[2024-08-19 19:59] VITALS: BP 139/60; PULSE 104; RESP 16; TEMP 35.8; O2SAT 95
[2024-08-19 20:08] VITALS: BP 141/65; O2SAT 95
--- NOTE | 2024-08-19 20:09 | CRLHL7_ITS ---
For Patients: As a result of the Century Cures Act, medical imaging exams and procedure reports are released immediately into your electronic medical record. You may view this report before your referring provider. If you have questions, please contact your health care provider. INDICATION: Chest pain. TECHNIQUE: Chest 1 view. COMPARISON: 07/22/2024. FINDINGS: Cardiovascular and mediastinum: Normal heart size. Atherosclerotic thoracic aorta. Lungs and pleural spaces: Patchy airspace opacities throughout the right lung. Left basilar atelectasis. No definite pleural effusion. No pneumothorax. Bones and soft tissues: Prominent right axillary vascular calcifications. Otherwise, unremarkable for age. IMPRESSION: Patchy airspace opacities throughout the right lung, concerning for a multilobar infectious/inflammatory process. Dictated by Jose Corea MD @ 08/19/2024 8:55:31 PM (Electronically Signed)
--- NOTE | 2024-08-19 20:31 | ED_ITS ---
HPI - Chest Pain General Date Seen: 08/19/24 Chief Complaint: Chest Pain Stated Complaint: Lt chest pain, tingling Lt arm Time Seen by Provider: 08/19/24 19:56 Source: patient, family, RN notes reviewed and old records reviewed Mode of arrival: ambulatory Limitations: no limitations History of Present Illness HPI narrative: Patient is a very nice 80-year-old gentleman who presents here with his 2 daughters who he lives with ambulatory for evaluation of left-sided chest pain this started at 6:30 a.m. eli, it built over 15 minute. He was sitting, not doing anything when he came on was not associated with shortness of breath nausea vomiting or diaphoresis, there is no radiation to his back in a little bit to his left shoulder. He reports that he has never had this before. He did eat normally today, at home he did take a nitroglycerin along with an aspirin with really no relief. He is brought in here for further assessment. Recently a month ago he suffered a half fractured hip, that was pinned, he was put back on his Eliquis. Has been taking that routinely, he does have in his notes a history of aortic valve issues, described as severe chronic lymphocytic leukemia atrial fibrillation, type 2 diabetes. Hypertension. Patient has had previous stenting cardiac, May of 2020. Is full code per discussion with him and his daughters. complaint: chest pain Onset (ago): hour(s) Timing of current episode: constant Prior episodes: No Onset: during rest Pain location: substernal and left chest Pain radiation: left shoulder Severity: moderate Quality: tightness and heaviness Relieving factors: nothing Exacerbating factors: nothing Context: recent illness Treatment prior to arrival: aspirin and nitroglycerin Risk Factors Coronary artery disease risk factors: smoking history and hypertension Thoracic aortic dissection risk factors: none Pulmonary embolism risk factors: history of deep vein thrombosis, recent surgery and malignancy Related Data Home Medications ?Medication ?Instructions ?Recorded ?Confirmed atorvastatin 20 mg tablet 20 mg PO QPM 03/26/22 08/19/24 carvedilol 25 mg tablet 25 mg PO BID 03/26/22 08/19/24 omeprazole 20 mg capsule,delayed 20 mg PO BID 03/26/22 08/19/24 release apixaban 2.5 mg tablet (Eliquis) 2.5 mg PO BID 08/27/22 08/19/24 ascorbic acid (vitamin C) 500 mg 500 mg PO DAILY 08/27/22 08/19/24 tablet aspirin 81 mg chewable tablet 1 tab PO DAILY 08/27/22 08/19/24 empagliflozin 25 mg tablet 25 mg PO DAILY 08/27/22 08/19/24 (Jardiance) vitamin E mixed 400 unit capsule 400 unit PO DAILY 08/27/22 08/19/24 cetirizine 10 mg tablet 10 mg PO DAILY 09/21/23 08/19/24 albuterol sulfate 90 mcg/actuation 2 inh inhalation Q4H PRN 07/19/24 07/19/24 aerosol inhaler esomeprazole magnesium 40 mg 40 mg PO DAILY 08/19/24 08/19/24 capsule,delayed release (Nexium) Previous Rx's ?Medication ?Instructions ?Recorded acetaminophen 500 mg capsule 500 mg PO Q6H PRN pain #100 caps 07/21/24 oxycodone 5 mg tablet 2.5 - 5 mg (0.5 - 1 x 5 mg) PO 07/21/24 Q4-6H PRN Pain #42 tabs sennosides 8.6 mg tablet (Senna 17.2 mg (2 x 8.6 mg) PO BID PRN 07/21/24 Lax) constipation #100 tabs spironolactone 25 mg tablet 12.5 mg (1/2 x 25 mg) PO DAILY #30 07/22/24 tabs valsartan 80 mg tablet 160 mg (2 x 80 mg) PO HS #60 tabs 07/25/24 Allergies Allergy/AdvReac Type Severity Reaction Status Date / Time amlodipine Allergy Verified 08/19/24 21:34 metformin AdvReac Intermediate Diarrhea Verified 08/19/24 21:34 Review of Systems Status of ROS Reports: 10 or more systems reviewed and unremarkable except as noted in History and below [facility] Medical History Frailty syndrome in geriatric patient ?R54 - Age-related physical debility (ICD-10) GERD (gastroesophageal reflux disease) ?K21.9 - Gastro-esophageal reflux disease without esophagitis (ICD-10) Essential hypertension ?I10 - Essential (primary) hypertension (ICD-10) Dysphagia ?R13.10 - Dysphagia, unspecified (ICD-10) CAD (coronary artery disease) ?I25.10 - Atherosclerotic heart disease of [place] coronary artery without angina pectoris (ICD-10) Type 2 diabetes mellitus ?E11.9 - Type 2 diabetes mellitus without complications (ICD-10) Atrial fibrillation ?I48.91 - Unspecified atrial fibrillation (ICD-10) Pneumonia ?J18.9 - Pneumonia, unspecified organism (ICD-10) Elevated troponin ?R79.89 - Other specified abnormal findings of blood chemistry (ICD-10) COVID ?U07.1 - COVID-19 (ICD-10) Physical deconditioning ?R53.81 - Other malaise (ICD-10) Colitis ?K52.9 - Noninfective gastroenteritis and colitis, unspecified (ICD-10) CLL (chronic lymphocytic leukemia) ?C91.10 - Chronic lymphocytic leukemia of B-cell type not having achieved remission (ICD-10) Aortic stenosis, severe ?I35.0 - Nonrheumatic aortic (valve) stenosis (ICD-10) Diverticulosis ?K57.90 - Diverticulosis of intestine, part unspecified, without perforation or abscess without bleeding (ICD-10) Blood clot of artery under arm ?I74.2 - Embolism and thrombosis of arteries of the upper extremities (ICD- 10) Diabetic retinopathy ?E11.319 - Type 2 diabetes mellitus with unspecified diabetic retinopathy without macular edema (ICD-10) Interstitial lung disease ?J84.9 - Interstitial pulmonary disease, unspecified (ICD-10) ROSA ISELA (obstructive sleep apnea) ?G47.33 - Obstructive sleep apnea (adult) (pediatric) (ICD-10) Hyperlipidemia ?E78.5 - Hyperlipidemia, unspecified (ICD-10) 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 - Dissection of other specified artery (ICD-10) Ileitis ?K52.9 - Noninfective gastroenteritis and colitis, unspecified (ICD-10) Surgical History Patella fracture ?S82.009A - Unspecified fracture of unspecified patella, initial encounter for closed fracture (ICD-10) History of atherectomy ?Z98.890 - Other specified postprocedural states (ICD-10) H/O colectomy ?Z90.49 - Acquired absence of other specified parts of digestive tract (ICD- 10) History of laparoscopic cholecystectomy ?Z90.49 - Acquired absence of other specified parts of digestive tract (ICD- 10) Social History What is your current living situation?: I presently have a place to live Problems where you live: no known problems Problems where you live details: no known problems In the past 12 months, utilities in danger of being shut off: no In past 12 months, lack of transportation kept you from medical appts, meetings, work, or getting things needed for daily living: no In the past 12 mos, have been you worried that your food would run out before you had money to buy more?: never true In the past 12 mos, the food you bought just didn't last and you didn't have money to buy more?: never true Highest level of school completed/degree received: high school graduate Smoking Status: Former smoker What tobacco products do you use: cigarettes Smoking quit date/years: >15 years ago Do you use any of these nicotine containing products: None Second hand tobacco smoke exposure: Yes How often do you have a drink containing alcohol: never How often do you have six or more drinks on one occasion: Never AUDIT-C Alcohol total score: 0 Non-prescribed substance use: denies use Caffeine: Yes (Tea) How often does anyone, including family, friends and others, physically hurt you : never How often does anyone, including family, friends and others, insult or talk down to you: never How often does anyone, including family, friends and others, threaten you with harm: never How often does anyone, including family, friends and others, scream or curse at you: never service: Yes Exam Narrative Exam Narrative: On examination in room 8 he is in no apparent distress he is pleasant and alert, looks to be in no pain, GCS is 15/15 alert oriented x3 pale. Pupils equal round reactive to light there is no scleral icterus redness is TMs normal oropharynx is normal, neck is supple full range of motion, he is at 3 cm, cranial nerves 3- 12 are normal. Chest has crackles to mid scapula bilaterally no signs respiratory distress his heart sounds I do not detect a significant murmur. No S3-S4. Abdomen is soft and obese there is no guarding no organomegaly no tenderness to palpation +2-3 3 pitting edema to just above his knees bilaterally. Moves extremities independently and well. Neurologically intact moving his upper lower extremities. Const Vital Signs, click to edit/add: Vital Signs - 24 hr 08/19/24 19:59 08/19/24 20:08 08/19/24 20:33 Temperature 96.5 F L Pulse Rate [Left Pulse Oximeter] 104 H 96 Respiratory Rate 16 16 Blood Pressure [Left Upper Arm] 139/60 141/65 H 135/66 Pulse Oximetry 95 95 95 Oxygen Delivery Method Room Air Room Air Room Air Documenting provider has reviewed patient's vital signs: yes Course Course ED Course: We will try a little bit more of morphine, for his pain which is recurred. I will also give him a little bit a Lasix is BNP is elevated, his pressures remain stable. We will do a chest CT for further delineation of the chest, to rule out E and also look for possible pneumonic source. I spoke to Dr. Wolfe from Hospital Medicine he will admit the patient hospital for serial troponins, diuresis, we are waiting on the CT scan for rule out PE, pneumonia. Vital Signs Vital signs: Initial Vital Signs Temperature 96.5 F L 08/19/24 19:59 Temperature Source Temporal Artery Scan 08/19/24 19:59 Pulse Rate 104 H 08/19/24 19:59 Pulse Rhythm Regular 08/19/24 19:59 Respiratory Rate 16 08/19/24 19:59 Blood Pressure 139/60 08/19/24 19:59 Blood Pressure Mean 86 08/19/24 19:59 Blood Pressure Position Semi-Fowlers 08/19/24 19:59 Pulse Oximetry 95 08/19/24 19:59 Oxygen Delivery Method Room Air 08/19/24 19:59 Vital Signs Temperature 96.5 F L 08/19/24 19:59 Pulse Rate 104 H 08/19/24 19:59 Respiratory Rate 16 08/19/24 19:59 Blood Pressure 139/60 08/19/24 19:59 Pulse Oximetry 95 08/19/24 19:59 Oxygen Delivery Method Room Air 08/19/24 19:59 Temperature 96.5 F L 08/19/24 19:59 Pulse Rate 96 08/19/24 20:33 Respiratory Rate 16 08/19/24 20:33 Blood Pressure 135/66 08/19/24 20:33 Pulse Oximetry 95 08/19/24 20:33 Oxygen Delivery Method Room Air 08/19/24 20:33 Medications Administered Medications: Generic Name Dose Route Start Last Admin Trade Name Freq PRN Reason Stop Dose Admin Sodium Chloride 1,000 mls @ 125 mls/hr 08/19/24 20:11 08/19/24 21:39 0.9 % Sodium Chloride 1000 Ml IV Infused .Q8H ORTIZ Infusion Discontinued Medications Generic Name Dose Route Start Last Admin Trade Name Freq PRN Reason Stop Dose Admin Morphine Sulfate 2 mg 08/19/24 20:08 08/19/24 20:37 Morphine 2 Mg/Ml Inj IVP 08/19/24 20:09 2 mg ONCE ONE Administration Morphine Sulfate 2 mg 08/19/24 21:29 08/19/24 21:36 Morphine 2 Mg/Ml Inj IVP 08/19/24 21:30 2 mg ONCE ONE Administration Nitroglycerin 0.4 mg 08/19/24 20:08 08/19/24 20:38 Nitroglycerin 0.4 Mg Tab.Subl SUBLINGUAL 08/19/24 20:09 0.4 mg ONCE ONE Administration MDM - Chest Pain MDM Narrative Medical decision making narrative: During the evaluation of this patient I considered multiple differential diagnosis is. The life-threatening differential diagnosis include coronary disease/OH, pulmonary embolism, pneumothorax, pneumonia, and aortic dissection. Other differential diagnosis included but were not limited to pericarditis, myocarditis, chest wall pain, GERD, esophageal rupture, rib fracture contusion, pleurisy, as well as other etiologies. Differential Diagnosis Differential diagnosis: Likely fracture of rib, pneumothorax, stable angina, unstable angina pectoris, atypical chest pain, st elevation myocardial infarction, costochondritis, chest pain and biliary colic Medical Records Data Attestation: I reviewed the patient's medical records. Medical records narrative: I reviewed the records of this patient, he apparently he has cut out of the [facility] after convalescence there after his hip pinning. And return there at the end of August 15. Lab Data Attestation: I reviewed the patient's lab results. Lab results narrative: I have results are consistent with chronic lymphocytic leukemia, slightly more than he usually runs. His hemoglobin is actually markedly improved at 9.8. INR was subtherapeutic but this is to be expected on the Eliquis. D-dimer was elevated, just slightly when you look at his age adjusted indices, reassuring troponin, basic metabolic profile showed a slightly elevated BUN. But a normal GFR. BMP was elevated at 10,000 thousand, his x-ray is consistent with possibly fibrosis versus failure primarily on the right side according to the ra diologist. But is clearly bilateral Labs: Lab Results 08/19/24 08/19/24 Range/Units 20:09 20:11 WBC 41.72 H* (4.50-11.00) K/uL RBC 3.30 L (4.30-5.90) m/uL Hgb 9.8 L (13.5-17.5) gm/dL Hct 31.9 L (37.0-53.0) % MCV 97 (80-100) fL MCH 30 (26-34) pg MCHC 31 L (32-36) gm/dL RDW Coeff of Ravi 20.6 H (11.5-15.5) % Plt Count 271 (140-440) K/uL Neut % (Auto) 16.8 L (42.0-72.0) % Lymph % (Auto) 80.6 H (20-44) % Mclennan % (Auto) 1.8 (0.0-11.0) % Eos % (Auto) 0.5 (0.0-7.0) % Baso % (Auto) 0.1 (0.0-3.0) % Neut # (Auto) 7.00 (1.7-7.0) K/uL Lymph # (Auto) 33.60 H (0.90-2.90) K/uL Mclennan # (Auto) 0.80 (0.00-0.90) K/UL Eos # (Auto) 0.20 (0.00-0.50) K/uL Baso # (Auto) 0.00 (0.00-0.30) K/uL Abs Immat Gran (auto) 0.10 (0.00-0.30) K/uL Imm/Tot Granulo (auto) 0.2 % INR 1.24 H (0.91-1.10) APTT 34 H (23-33) Seconds D-Dimer Quant (PE/DVT) 0.96 H (0.00-0.50) ug/ml Sodium 139 (135-149) mmol/L Potassium 4.5 (3.6-5.1) mmol/L Chloride 108 (96-114) mmol/L Carbon Dioxide 24 (20-32) mmol/L Anion Gap 7 (7-15) mEq/L BUN 31 H (7-30) mg/dL Creatinine 0.8 (0.5-1.5) mg/dL Estimated GFR 85 ml/min Glucose 163 H (60-115) mg/dL Calcium 8.9 (8.4-10.6) mg/dL NT-Pro-B Natriuret Pep 45887 pg/mL POC Troponin I 0.03 (0.01-0.04) ng/ml Imaging Data Chest x-ray: Attestation: I have reviewed the pertinent imaging results. My impression: Chest x-ray shows enlarged heart, bilateral infiltrates right greater than left, ECG Data Attestation: I personally reviewed and interpreted this ECG as follows: ECG interpretation date: 08/19/24 Interpretation: EKG done shows sinus tachycardia with a rate of 102, with occasional fusion complexes, right bundle bunch block is unchanged left anterior fascicular block, no significant ST wave changes when compared to previous EKG from 07/18/24 Discharge Plan Discharge Clinical Impression: Chest pain, Chronic lymphocytic leukemia, Congestive heart failure, History of CAD (coronary artery disease) Patient Disposition: Admitted As Observation Condition: Unchanged Activity Level: Light activity Discharge Diet: Regular Prescriptions: No Action cetirizine 10 mg tablet 10 mg PO DAILY albuterol sulfate 90 mcg/actuation HFA aerosol inhaler 2 inh INHALATION Q4H PRN sennosides [Senna Lax] 8.6 mg Tablet 17.2 mg PO BID PRN (Reason: constipation) Qty: 100 0RF acetaminophen 500 mg capsule 500 mg PO Q6H MDD 4000mg per day PRN (Reason: pain) Qty: 100 0RF oxycodone 5 mg Tablet 2.5 - 5 mg PO Q4-6H MDD 6 tabs per day PRN (Reason: Pain) Qty: 42 0RF Rx Instructions: Minimize. Discontinue as soon as possible spironolactone 25 mg tablet 12.5 mg PO DAILY Qty: 30 0RF valsartan 80 mg Tablet 160 mg PO HS Qty: 60 0RF esomeprazole magnesium [Nexium] 40 mg capsule,delayed release(DR/EC) 40 mg PO DAILY carvedilol 25 mg tablet 25 mg PO BID atorvastatin 20 mg tablet 20 mg PO QPM omeprazole 20 mg capsule,delayed release(DR/EC) 20 mg PO BID aspirin 81 mg tablet,chewable 1 tab PO DAILY Eliquis 2.5 mg tablet 2.5 mg PO BID Jardiance 25 mg tablet 25 mg PO DAILY ascorbic acid (vitamin C) 500 mg tablet 500 mg PO DAILY vitamin E mixed 400 unit capsule 400 unit PO DAILY Follow Up/Referrals: Luiz Bullock MD [Primary Care Provider] -
[2024-08-19 20:32] LABS: Basophils Percent Auto 0.1 % (0.0-3.0); Eosinophils Percent Auto 0.5 % (0.0-7.0); Hematocrit* 31.9 % (37.0-53.0); Hemoglobin* 9.8 gm/dL (13.5-17.5); Immature Granulocytes Pct Auto 0.2 %; Lymphocytes Percent Auto 80.6 % (20-44); Mean Corpuscular HGB Conc 31 gm/dL (32-36); Mean Corpuscular Hemoglobin 30 pg (26-34); Mean Corpuscular Volume 97 fL (80-100); Monocytes Percent Auto 1.8 % (0.0-11.0); Neutrophils Percent Auto 16.8 % (42.0-72.0); Platelet Count* 271 K/uL (140-440); RDW Coefficient of Variation % 20.6 % (11.5-15.5)
[2024-08-19 20:33] VITALS: BP 135/66; PULSE 96; RESP 16; O2SAT 95
[2024-08-19 20:35] LABS: Troponin, Point-of-Care* 0.03 ng/ml (0.01-0.04)
[2024-08-19] MEDS: MORPHINE 2 MG/ML inj IVP ×2 (20:37→21:36)
[2024-08-19] MEDS: 0.9 % SODIUM CHLORIDE 1000 ml 1,000 ML 125 ML IV (20:38)
[2024-08-19] MEDS: NITROGLYCERIN 0.4 MG TAB.SUBL SUBLINGUAL (20:38)
[2024-08-19 20:40] LABS: Slide Review Reflex Yes; White Blood Count* 41.72 K/uL (4.50-11.00)
--- OUTSIDE RECORDS SUMMARY | 2024-08-19 20:42 | XMS_ITS | Clinical Summary ---
Author Organization [facility] Address [address] [place] [address] Care Team Providers Care Compliance Reviewer Name Role Phone Luiz Bullock MD Primary [...] 3 times daily if needed for Rhinitis. [place] dose in each nostril as needed for [...] nails 06/01/2024 Atherosclerotic heart diseas e of [place] coronary artery with other forms of angina [...] Department Care Team Description 08/05/2024 Lab Requisition [facility] [phone] Rhonda Calhoun NP 07/29/2024 Lab Requisition [facility] [phone] Toby Daly MD 07/22/2024 Orders Only [facility] Scanner 1 scan: (1-Ord) [facility], XR CHEST 1V PORTABLE, 07/22/2024 07/20/2024 Orders Only [facility] Scanner 1 scan: (1-Ord) [facility], XR CLAVICLE RT, 07/20/2024 07/19/2024 Orders Only [facility] Scanner 1 scan: (1-Ord) [facility], XR FEMUR RT 1V, 07/19/2024 07/19/2024 Orders Only [facility] Scanner 1 scan: (1-Ord) [place], LUMBAR SPINE 2-3V, 07/19/2024 07/19/2024 Orders Only [facility] Scanner 1 scan: (1-Ord) [facility], HIP RT WO CON , 07/19/2024 07/18/2024 Orders Only [facility] Scanner 1 scan: (1-Ord) [facility], HIP RT MIN 2V, 07/18/2024 07/18/2024 Orders Only [facility] Scanner 1 scan: (1-Ord) [place], XR CHEST , 07/18/2024 07/12/2024 Refill [facility] [address] [place] [address] Luiz Bullock MD Refill Request (Spironolactone) 06/24/2024 1:00 PM COLLEGE SPORTS COACH Procedure Only [facility] [address] [place] [address] Rebeca Brizuela L Ac Acupuncture 06/24/2024 Travel 06/03/2024 10:30 AM COLLEGE SPORTS COACH Procedure Only [facility] [address] [facility] [address] Rebeca Brizuela L Ac Acupuncture 06/03/2024 Travel 06/01/2024 3:45 PM COLLEGE SPORTS COACH Office Visit [facility] [address] [place] [address] Luiz Bullock MD Follow Up 06/01/2024 Travel 05/27/2024 12:00 PM COLLEGE SPORTS COACH Procedure Only [facility] [address] [place] [address] Rebeca Brizuela L Ac Acupuncture (Initial) 05/27/2024 Travel 05/23/2024 2:15 PM COLLEGE SPORTS COACH Office Visit [facility] [address] [facility] [address] Aamir Ruiz MD emergency room follow up ([facility] emergency room follow up 05/22/2024 for palpitations) 05/23/2024 10:15 AM COLLEGE SPORTS COACH Office Visit [facility] [address] [place] [address] 05/23/2024 Orders Only [facility] [address] [place] [address] Aamir Ruiz MD 1 scan: (1-Ord) NFLD-EKG-05/23/24 05/23/2024 Travel 05/22/2024 Orders Only [facility] Scanner 1 scan: (1-Ord) EKG, 05/22/2024 05/22/2024 Orders Only [facility] Scanner 1 scan: (1-Ord) [place] [facility], 05/22/2024 from Last 3 Months Immunizations [...] on file Legal Sex Male 6:20 AM COLLEGE SPORTS COACH Gender Identity Not on file Sexual Orientation Not on file 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 file N ot on file Not on file Obstetrics History Last Filed Vital Signs Vital Sign Reading Time Taken Comments Blood Pressure 136/60 06/01/2024 4:11 PM COLLEGE SPORTS COACH Pulse 71 06/01/2024 3:38 PM COLLEGE SPORTS COACH Temperature 36.5 C (97.7 F) 09/15/2023 11:54 AM CDT Respiratory Rate 16 04/02/2023 1:19 PM COLLEGE SPORTS COACH Oxygen Saturation 97% 06/01/2024 3:38 PM COLLEGE SPORTS COACH Inhaled Oxygen Concentration - - Weight 78.8 kg (173 lb 12.8 oz) 06/01/2024 3:38 PM COLLEGE SPORTS COACH Height 171 cm (5' 7.32) 03/10/2024 11: 29 AM CDT Body Mass Index 26.96 03/10/2024 11:29 AM CDT Plan of Treatment Upcoming Encounters Date Type Department Care Team (Late st Contact Info) Description 08/23/2024 2:30 PM CDT Office Visit [facility] [address] [place] [address] Luiz uBllock MD [address] [place] [address] 2024 2:05 PM CDT Office Visit [facility] [address] [place] [address] Luiz Bullock MD [address] [place] [address] Health Maintenance Due Date Last Done Comments [...] postprocedural states SCAN-RADIOLOGY REPORT 07/22/2024 12:00 AM COLLEGE SPORTS COACH SCAN-RADIOLOGY REPORT 07/20/2024 12:00 AM [employer]LEGE SPORTS COACH SCAN-RADIOLOGY REPORT 07/19/2024 12:00 AM COLLEGE SPORTS COACH SCAN-RADIOLOGY REPORT 07/19/2024 12:00 AM COLLEGE SPORTS COACH SCAN-CT INTERPRETATION 12:00 AM COLLEGE SPORTS COACH SCAN-RADIOLOGY REPORT 07/18/2024 12:00 AM COLLEGE SPORTS COACH SCAN-RADIOLOGY REPORT 07/18/2024 12:00 AM COLLEGE SPORTS COACH ACUPUNCTURE PLAN OF CARE Routine 06/24/2024 12:45 PM COLLEGE SPORTS COACH Mechanical back pain Other low back pain ACUPUNCTURE PLAN OF CARE Routine 06/10/2024 2:40 PM COLLEGE SPORTS COACH Mechanical back pain Other low back pain ACUPUNCTURE PLAN OF CARE Routine 06/03/2024 10:43 AM COLLEGE SPORTS COACH Mechanical back pain Other low back pain EKG 12 LEAD Routine 05/23/2024 3:41 PM COLLEGE SPORTS COACH Irregular heart beat Bradycardia MO READING EKG - NO CHARGE, COMP ONLY Routine 05/23/2024 3:39 PM COLLEGE SPORTS COACH Irregular heart beat Bradycardia EXTENDED HOLTER Routine 05/23/2024 Irregular heart beat Bradycardia Frequent PVCs SCAN-ELECTROCARDIOGRAM EKG 05/22/2024 12:00 AM COLLEGE SPORTS COACH SCAN-LABORATORY REPORT 12:00 AM COLLEGE SPORTS COACH from Last 3 Months Results * (ABNORMAL) CBC WITH AUTO DIFFERENTIAL (08/09/2024 7:15 AM CDT) Only the most recent of2 resultswithin the time period is included. [facility] WHITE BLOOD COUNT 34.9(H) 4.5 - 11.0 thou/cu mm 08/09/2024 2:[address] [facility] RED BLOOD COUNT 3.37(L) 4.30 - 5.90 mil/cu mm 08/09/2024 2:[address] [facility] HEMOGLOBIN 9.4(L) 13.5 - 17.5 g/dL 08/09/2024 2:[address] [facility] HEMATOCRIT 31.5(L) 37.0 - 53.0 % 08/09/2024 2:[address] [facility] MCV 94 80 - 100 fL 08/09/2024 2:[address] [facility] MCH 27.9 26.0 - 34.0 pg 08/09/2024 2:[address] [facility] MCHC 29.8(L) 32.0 - 36.0 g/dL 08/09/2024 2:[address] [facility] RDW 17.8(H) 11.5 - 15.5 % 08/09/2024 2:[address] [facility] PLATELET COUNT 318 140 - 440 thou/cu mm 08/09/2024 2:[address] [facility] MPV 12.2(H) 6.5 - 11.0 fL 08/09/2024 2:[address] [facility] Blood BLOOD SPECIMEN / Unknown Butterfly / Unknown 08/09/2024 7:15 AM CDT 08/09/2024 9:20 AM CDT us Rhonda Calhoun NP HEMATOLOGY Final Resul t [facility] [address] [place] [address] * (ABNORMAL) RED CELL MORPHOLOGY (08/09/2024 7:15 AM CDT) Only the most recent of2 resultswithin the time period is included. ELLIPTOCYTES Few 08/09/2024 2:[address] [facility] TARGET CELLS Few 08/09/2024 2:[address] [facility] RBC COMMENT Present(A) RBC morphology appears normal, RBC morphology within normal limits for newborns. 08/09/2024 2:[address] [facility] LARGE PLATELETS Present 2:[address] [facility] Blood BLOOD SPECIMEN / Unknown Butterfly / Unknown 08/09/2024 7:15 AM CDT 08/09/2024 9:20 AM CDT Rhonda Calhoun NP HEMATOLOGY Final Resul t Performing Organization Address City/[facility] Co de Phone Number [facility] [address] [place] [address] * PLATELET ESTIMATE (08/09/2024 7:15 AM CDT) Only the most recent of2 resultswithin the time period is included. Pathologist [facility] PLATELET ESTIMATE Adequate Adequate, No estimate 08/09/2024 2:[address] [facility] Blood BLOOD SPECIMEN / Unknown Butterfly / Unknown 08/09/2024 7:15 AM CDT 08/09/2024 9:20 AM CDT Rhonda Calhoun NP HEMATOLOGY Final Resul t Performing Organization Address [facility] de Phone Number [facility] [address] [place] [address] * (ABNORMAL) MANUAL DIFFERENTIAL (08/09/2024 7:15 AM CDT) Only the most recent of2 resultswithin the time period is included. Pathologist [facility] % NEUTROPHILS 26.0 % 08/09/2024 2:[address] [facility] % LYMPHOCYTES 71.0 % 08/09/2024 2:[address] [facility] % MONOCYTES 1.0 % 08/09/2024 2:[address] [facility] % EOSINOPHILS 2.0 % 08/09/2024 2:[address] [facility] % BASOPHILS 0.0 % 08/09/2024 2:[address] [facility] NEUTROPHILS ABSOLUTE 9.1(H) 1.7 - 7.0 thou/cu mm 08/09/2024 2:[address] [facility] LYMPHOCYTES ABSOLUTE 24.8(H) 0.9 - 2.9 thou/cu mm 08/09/2024 2:[address] [facility] MONOCYTES ABSOLUTE 0.3 <0.9 thou/cu mm 08/09/2024 2:07 PM CDT [facility] EOSINOPHILS ABSOLUTE 0.7(H) <0.5 thou/cu mm 08/09/2024 2:07 PM CDT [facility] BASOPHILS ABSOLUTE 0.0 <0.3 thou/cu mm 08/09/2024 2:07 PM CDT [facility] Blood BLOOD SPECIMEN / Unknown Butterfly / Unknown 08/09/2024 7:15 AM CDT 08/09/2024 9:20 AM CDT us Rhonda Calhoun NP HEMATOLOGY Final Resul t [facility] [address] [place] [address] * CWS PATH REVIEW HEMATOLOGY (08/02/2024 7:50 AM CDT) PATH COMMENT Reviewed by BB on 08/04/2024 08/04/2024 8:53 AM CDT [facility] Blood BLOOD SPECIMEN / Unknown Butterfly / Unknown 08/02/2024 7:50 AM CDT 08/02/2024 9:08 AM CDT us Toby Daly MD LABORATORY Final Result [facility] [address] [place] [address], * (ABNORMAL) BASIC METABOLIC PANEL (08/02/2024 7:50 AM CDT) SODIUM 139 136 - 145 mmol/L 08/02/2024 9:39 AM CDT [facility] POTASSIUM 4.5 3.5 - 5.1 mmol/L 08/02/2024 9:39 AM CDT [facility] CHLORIDE 108(H) 98 - 107 mmol/L 08/02/2024 9:39 AM CDT [facility] CO2,TOTAL 21(L) 22 - 29 mmol/L 08/02/2024 9:[address] [facility] ANION GAP 10 5 - 18 08/02/2024 9:[address] [facility] GLUCOSE 129(H) 70 - 99 mg/dL 08/02/2024 9:[address] [facility] CALCIUM 8.8 8.8 - 10.4 mg/dL 08/02/2024 9:[address] [facility] Comment: Reference ranges for this test were updated on 03/22/2024 to reflect our healthy population more accurately. Reference range changes are not retroactively applied to results, but previous results using the same methodology can be interpreted in the context of the new reference range. BUN 28(H) 8 - 23 mg/dL 08/02/2024 9:[address] [facility] CREATININE 0.95 0.70 - 1.20 mg/dL 08/02/2024 9:[address] [facility] BUN/CREAT RATIO 29(H) 10 - 20 9:[address] [facility] eGFR 77(L) >90 mL/min/1. 73m2 08/02/2024 9:[address] [facility] Comment:As of 2021, eG FR [...] us Toby Daly MD CHEMISTRY Final Result [facility] [address] [place] [address] * SCAN-RADIOLOGY REPORT (07/22/2024 12:00 AM [employer]LEGE [employer]ORTS [employer]ACH) Only the most recent of6 resultswithin the time period is included. Anatomical Region Laterality Modality Other us Scanner OTHER Final Result * SCAN-CT INTERPRETATION (07/19/2024 12:00 AM COLLEGE SPORTS COACH) Anatomical Region Laterality Modality Other us Scanner OTHER Final Result * EKG 12 LEAD (05/23/2024 3:41 PM COLLEGE SPORTS COACH) Aamir Ruiz MD EKG ORD Final Res ult * MO READING EKG - NO CHARGE, COMP ONLY (05/23/2024 3:39 PM COLLEGE SPORTS COACH) Aamir Ruiz MD PB - PROVIDER READINGS Fi nal Result * ZIO PATCH XT - weekly to monthly symptoms. Specifiy duration 3 days, 1 week, or 2 weeks (05/23/2024) 05/23/2024 Narrative Lamonte Howell MD - 06/10/2024 12:00 AM [employer]LEGE SPORTS COACH Agree with Findings. 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 Signed By Lamonte Howell MD Procedure Note Lamonte Howell MD - 06/10/2024 Agree with Findings. 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 Signed By Lamonte Howell MD Aamir Ruiz MD CARDIAC SERVICES ORD Edit ed Result - Final * SCAN-LABORATORY REPORT (05/22/2024 12:00 AM COLLEGE SPORTS COACH) us Scanner OTHER Final Result * SCAN-ELECTROCARDIOGRAM EKG (05/22/2024 12:00 AM COLLEGE SPORTS COACH) us Scanner OTHER Final Result from Last 3 Months Insurance MEDICARE PB ONLY [facility] FED EMP MEDICARE PART A HB ONLY MEDICARE PART B HB ONLY * Guarantor: MARTHA [employer] Account Type Relation to Patient Date of Phone Billing Address [facility] [employer] [address] | [employer] [facility] [place] [address] Care Teams Compliance Reviewer Relationship Specialty Start Date End Date Luiz Bullock MD [address] [place] [address] PCP - General Family Practice 07/03/20"
--- OUTSIDE RECORDS SUMMARY | 2024-08-19 20:42 | XMS_ITS | Encounter Summary ---
Author Organization [facility] Address [address] [place] [address] Care Team Providers Care Endoscope Technician Name Role Phone Elsewhere, Pcp Primary Care Provider Unavailabl e Reason for Visit * Reason Onset Date Comments Results 07/11/2024 Encounter Details Date Type Department Care Team (Latest Contact Info) Description 07/11/2024 Clinical Communication Department of Cardiovascular Medicine in [place], [place] [address] [place] [address] Gt Ricks, ROXANA, P.A.-C., M.S. [address] [place] [id number] Results Social History Tobacco Use Types Packs/Day [...] How often do you attend chur or sabianism services? Patient declined 12/31/2021 Do you belong to any clubs o r organizations such as hoahaoism groups, unions, fraternal [...] and heating? Not hard at all 12/31/2021 [facility] - Occupational [...] CDT Legal Sex Male 8:35 AM DOOR FRAMER Gender Identity Male 12/09/2017 1:17 PM CDT Sexual Orientation Straight 12/09/2017 1: 17 PM CDT documented as of this encounter Plan of Treatment Not on file documented as of this encounter Visit Diagnoses Not on filedocumented in this encounter Care Teams Endoscope Technician Relationship Specialty Start Date End Date Elsewhere, Pcp PCP - General Family Medicine 01/10/21 documented as of this encounter
--- OUTSIDE RECORDS SUMMARY | 2024-08-19 20:42 | XMS_ITS | Clinical Summary ---
Author Organization [facility] Address [address] [address] Phone Care Team Providers Care Cryptologic Technician Technical Name Role Phone Unavailable Primary Care Provider [...] Surgeon: Yair Jones MD; Location: [facility] RADI[facility] COLONOSCOPY 03/23/2022 Colon/N/A No repeat [...] Comments Blood Pressure 162/49 03/25/2022 4:27 PM EPIC MANAGER Pulse 74 03/25/2022 4:27 PM EPIC MANAGER Temperature 36.6 C (97.8 F) 03/25/2022 4:27 PM EPIC MANAGER Respiratory Rate 20 03/25/2022 4:27 PM EPIC MANAGER Oxygen Saturation 95% 03/25/2022 4:27 PM EPIC MANAGER Inhaled Oxygen Concentration - - Weight 91.5 kg (201 lb 11.5 oz) 03/25/2022 6:00 AM EPIC MANAGER Height 174 cm (5' 8.5) 03/22/2022 2:30 [...] this topic Medical Devices Implanted Type Area Community Program Assistant Device Identifier Shelf Expiration Date Model / Serial / Lot Clip Hemostasis Instinct Plus Disp [id number] - [id number] Implanted:Qty: 2 on 03/23/2022 by Anjana Weeks DO at [facility] N/A: Davi CHIRINOS 01/16/2025 [id number] / N/A / [id number] Insurance [employer] [facility] [employer] Address: [facility] [id number] [place] [address] MEDICARE PART A & B Advance Directives For more information, please contact: [phone] * Full Code (Latest Code Status on File) Date Activated Date Inactivated Comments 03/22/2022 2:44 PM 03/25/2022 9:43 PM
--- OUTSIDE RECORDS SUMMARY | 2024-08-19 20:42 | XMS_ITS | Clinical Summary ---
Author Organization [facility] Address [address] [place] [address] Care Team Providers Care Press Technician Name Role Phone Elsewhere, Pcp Primary Care Provider Unavailabl e Source Comments Patient records contain information from all sites at [facility]. For routine questions regarding patient records, call [phone] during business hours, M-F 8:00 AM - 5:00 PM Central Time. Record requests for emergency care only can be directed to [phone] at any time.[facility] Allergies Active Allergy Reactions Criticality Noted [...] (07/03/2022): Added automatically from request for surgery [id number] Anatomical Narrow Angle Bilateral 06/11/2022 Atrial Fibrillation Paroxysmal 04/15/2022 Overview (04/15/2022): Added automatically from request for surgery [id number] Atherosclerotic Heart Diseas e [place] Coronary Artery With Other Forms Angina [...] (01/02/2021): Added automatically from request for surgery [id number] Chronic Migraine With Aura, Not Intractable, Without Status Migrainosus 01/01/2021 Stenosis Aortic Valve Acquired 12/31/2020 Diabetes Mellitus Type 2 12/31/2020 Amaurosis Fugax 12/31/2020 Lung Interstitial Disease 12/31/2020 Anemia 12/07/2018 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 Stenosis Aortic Valve Acquired (Primary Dx); Diabetes Mellitus Type 2 (HCC); Atherosclerotic Heart Disease [place] Coronary Artery With Other Forms Angina Pectoris (Angina Equivalent) (HCC); Coronary Stent Status Post; Hypertension Essential Primary; Beat Premature Ventricular 07/11/2024 Clinical Communication Department of Cardiovascular Medicine in [place], [place] [address] [place] [address] Gt Ricks MPAS P.A.-C., M.S. Results 07/01/2024 1:17 PM GROUT MACHINE TENDER - 07/01/2024 11:59 PM GROUT MACHINE TENDER Hospital Encounter Department of Radiology, [facility] in [place], [place] [address] [place] [address] Gt Ricks MPAS, P.A.-C., M.S. 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 Results 06/09/2024 1:33 PM GROUT MACHINE TENDER - 06/09/2024 11:59 PM GROUT MACHINE TENDER Hospital Encounter Department of Radiology, [facility] in [place], [place] [address] [place] [address] Gt Ricks MPAS, P.A.-C., M.S. Discharge Disposition: Home or Self Care 06/09/2024 10:36 AM GROUT MACHINE TENDER - 06/09/2024 1:32 PM GROUT MACHINE TENDER Hospital Encounter Department of Radiology, [facility] in [place], [place] [address] [place] [phone] Gt Ricks MPAS, P.A.-C., M.S. Stenosis Aortic Valve Acquired; Coronary Stent Status Post; Diabetes Mellitus Type 2 (HCC); Atherosclerotic Heart Disease [place] Coronary Artery With Other Forms Angina Pectoris (Angina Equivalent) (HCC); Hypertension Essential Primary; Atrial Fibrillation Unspecified (HCC) Discharge Disposition: Home or Self Care 06/06/2024 1:00 PM GROUT MACHINE TENDER Office Visit Department of Cardiovascular Medicine in [place], [place] [address] [place] [phone] Gt Ricks MPAS, P.A.-C., M.S. Beat Premature Ventricular (Primary Dx); Stenosis Aortic Valve Acquired; Atherosclerotic Heart Disease [place] Coronary Artery With Other Forms Angina Pectoris (Angina Equivalent) (HCC); Coronary Stent Status Post; Atrial Fibrillation Paroxysmal (HCC); Diabetes Mellitus Type 2 (HCC); Dyspnea On Exertion; Anemia 06/06/2024 11:41 AM GROUT MACHINE TENDER - 06/06/2024 11:59 PM GROUT MACHINE TENDER Hospital Encounter Department of Laboratory Medicine and Pathology, [place], [place] [address] [place] [phone] Gt Ricks MPAS, P.A.-C., M.S. Stenosis Aortic Valve Acquired; Coronary Stent Status Post; Diabetes Mellitus Type 2 (HCC); Atherosclerotic Heart Disease [place] Coronary Artery With Other Forms Angina Pectoris (Angina Equivalent) (HCC); Hypertension Essential Primary; Atrial Fibrillation Unspecified (HCC); Bradycardia; Palpitations; Shortness Of Breath Discharge Disposition: Home or Self Care 06/06/2024 11:20 AM GROUT MACHINE TENDER - 06/06/2024 11:40 AM GROUT MACHINE TENDER Hospital Encounter Department of Radiology, [facility] in [place], [place] [address] [place] [phone] Gt Ricks MPAS P.A.-C., M.S. Stenosis Aortic Valve Acquired; Atherosclerotic Heart Disease [place] Coronary Artery With Other Forms Angina Pectoris (Angina Equivalent) (HCC); Coronary Stent Status Post; Atrial Fibrillation Unspecified (HCC); Hypertension Essential Primary; Bradycardia; Palpitations Discharge Disposition: Home or Self Care 05/23/2024 Clinical Communication Department of Cardiovascular Medicine in [place], [place] [address] [place] [address] Cleaner WallRenny M.D. from Last 3 Months Immunizations Immunization [...] any clubs o r organizations such as mormon groups, unions, fraternal [...] and heating? Not hard at all 12/31/2021 [facility] [place] of Occupat ional Health - Occupational Stress [...] or slept in a mcc (including now)? No 12/31/2021 Nutrition Answer Date [...] PM CDT Legal Sex Male 8:35 AM GROUT MACHINE TENDER Gender Identity Male 12/09/2017 1:17 PM CDT Sexual Orientation Straight 12/09/2017 1: 17 PM CDT Last Filed Vital Signs Vital Sign Reading Time Taken Comments Blood Pressure 127/69 06/06/2024 12:40 PM GROUT MACHINE TENDER Pulse 72 06/06/2024 12:40 PM GROUT MACHINE TENDER Temperature 36.2 C (97.2 F) 11/13/2023 12:50 PM CDT Respiratory Rate 21 11/13/2023 1:25 PM CDT Oxygen Saturation 98% 02/08/2024 9:30 AM CDT Inhaled Oxygen Concentration - - Weight 77.9 kg (171 lb 11.8 oz) 025 12:40 PM GROUT MACHINE TENDER Height 170 cm (5' 6.93) 06/06/2024 12: 40 PM GROUT MACHINE TENDER Body Mass Index 26.96 06/06/2024 12:40 PM GROUT MACHINE TENDER Plan of Treatment Health Maintenance Due Date [...] this topic Medical Devices Implanted Type Area Agriculture Inspector Device Identifier Shelf Expiration Date Model / Serial / Lot Stnt Synergy Xd De 2.50x32 - [id number] Implanted:Qty : 1 on 01/10/2021 by Jeffery Arroyo M.D., Ph.D. at [facility] Cardiac Stent N/A: Coronary [employer] 04/30/2022 [id number] / / [id number] Description:Mid LAD Stnt Synergy Xd De 3.00x32 - [id number] Implanted:Qty : 1 on 01/10/2021 by Jeffery Arroyo M.D., Ph.D. at [facility] Cardiac Stent N/A: Coronary [employer] 09/27/2022 [id number] / / [id number] Description:OM Stnt Synergy Xd De 3.50x12 - [id number] Implanted:Qty : 1 on 01/10/2021 by Jeffery Arroyo M.D., Ph.D. at [facility] Cardiac Stent N/A: Coronary [employer] 08/21/2022 [id number] / / [id number] Description:pLCx Lens Tcn Mnfcl Dcb00 +22.5d - [id number] - [id number] Implanted:Qty : 1 on 09/11/2022 by Rosina Manuel M.D. at [facility] Ocular Lens Left: Eye [employer] (Previously MERRY) 07/01/2025 [id number] / [id number] / Lens Tcn Mnfcl Dcb00 +23.0d - [id number] - [id number] Implanted:Qty : 1 on 10/28/2022 by Santosh Toth M.D., Ph.D. 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) Chronic Diastolic (Congestive) Heart Failure (HCC) [place] FNA BX WO IMG 1ST [place] Routine 07/01/2024 1:00 PM GROUT MACHINE TENDER Dyspnea On Exertion Beat Premature Ventricular Stenosis Aortic Valve Acquired Atherosclerotic Heart Disease [place] Coronary Artery With Other Forms Angina Pectoris (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) Chronic Diastolic (Congestive) Heart Failure (HCC) SUBCUTANEOUS FAT ASPIRATE Routine 07/01/2024 12:00 AM GROUT MACHINE TENDER NM CARDIAC AMYLOID PYP SPECT CT RAD - Routine (most inpatients and all outpatients) 06/09/2024 2:55 PM GROUT MACHINE TENDER Stenosis Aortic Valve Acquired Coronary Stent Status Post Diabetes Mellitus Type 2 (HCC) Atherosclerotic Heart Disease [place] Coronary Artery With Other Forms Angina Pectoris (Angina Equivalent) (HCC) Hypertension Essential Primary Atrial Fibrillation Unspecified (HCC) ECG Routine 06/06/2024 12:10 PM GROUT MACHINE TENDER Stenosis Aortic Valve Acquired Atherosclerotic Heart Disease [place] Coronary Artery With Other Forms Angina Pectoris (Angina Equivalent) (HCC) Coronary Stent Status Post Atrial Fibrillation Unspecified (HCC) Hypertension Essential Primary Bradycardia Palpitations QUANTITATIVE M-PROTEIN STUDY, S Routine 06/06/2024 11:55 AM GROUT MACHINE TENDER Beat Premature Ventricular Stenosis Aortic Valve Acquired Atherosclerotic Heart Disease [place] Coronary Artery With Other Forms Angina Pectoris (Angina Equivalent) (HCC) Coronary Stent Status Post Atrial Fibrillation Paroxysmal (HCC) Diabetes Mellitus Type 2 (HCC) Dyspnea On Exertion Anemia THYROID FUNCTION CASCADE, S Routine 06/06/2024 11:55 AM GROUT MACHINE TENDER Stenosis Aortic Valve Acquired Atherosclerotic Heart Disease [place] Coronary Artery With Other Forms Angina Pectoris (Angina Equivalent) (HCC) Coronary Stent Status Post Atrial Fibrillation Unspecified (HCC) Hypertension Essential Primary Bradycardia Palpitations BASIC METABOLIC PANEL, S/P Routine 06/06/2024 11:55 AM GROUT MACHINE TENDER Stenosis Aortic Valve Acquired Atherosclerotic Heart Disease [place] Coronary Artery With Other Forms Angina Pectoris (Angina Equivalent) (HCC) Coronary Stent Status Post Atrial Fibrillation Unspecified (HCC) Hypertension Essential Primary Bradycardia Palpitations CBC WITH DIFFERENTIAL, B Routine 06/06/2024 11:55 AM GROUT MACHINE TENDER Stenosis Aortic Valve Acquired Atherosclerotic Heart Disease [place] Coronary Artery With Other Forms Angina Pectoris (Angina Equivalent) (HCC) Coronary Stent Status Post Atrial Fibrillation Unspecified ([facility]) Hypertension Essential Primary Bradycardia Palpitations NT-PRO B-TYPE NATRIURETIC PEPTIDE (BNP), S Routine 06/06/2024 11:55 AM GROUT MACHINE TENDER Stenosis Aortic Valve Acquired Atherosclerotic Heart Disease [place] Coronary Artery With Other Forms Angina Pectoris (Angina Equivalent) (HCC) Coronary Stent Status Post Atrial Fibrillation Unspecified ([facility]) Hypertension Essential Primary Bradycardia Palpitations Shortness Of Breath MAGNESIUM, S Routine 06/06/2024 11:55 AM GROUT MACHINE TENDER Stenosis Aortic Valve Acquired Atherosclerotic Heart Disease [place] Coronary Artery With Other Forms Angina Pectoris (Angina Equivalent) (HCC) Coronary Stent Status Post Atrial Fibrillation Unspecified ([facility]) Hypertension Essential Primary Bradycardia Palpitations IMMUNOGLOBULIN FREE LIGHT CHAINS, S Routine 06/06/2024 11:55 AM GROUT MACHINE TENDER Stenosis Aortic Valve Acquired Coronary Stent Status Post Diabetes Mellitus Type 2 (HCC) Atherosclerotic Heart Disease [place] Coronary Artery With Other Forms Angina Pectoris (Angina Equivalent) (HCC) Hypertension Essential Primary Atrial Fibrillation Unspecified (HCC) TROPONIN T, 5TH GEN, P Routine 06/06/2024 11:54 AM GROUT MACHINE TENDER Stenosis Aortic Valve Acquired Coronary Stent Status Post Diabetes Mellitus Type 2 (HCC) Atherosclerotic Heart Disease [place] Coronary Artery With Other Forms Angina Pectoris (Angina Equivalent) (HCC) Hypertension Essential Primary Atrial Fibrillation Unspecified (HCC) DX CHEST AP OR PA AND LATERAL 2 VIEWS RAD - Routine (most inpatients and all outpatients) 06/06/2024 11:31 AM GROUT MACHINE TENDER Stenosis Aortic Valve Acquired Atherosclerotic Heart Disease [place] Coronary Artery With Other Forms Angina Pectoris (Angina Equivalent) (HCC) Coronary Stent Status Post Atrial Fibrillation Unspecified (HCC) Hypertension Essential Primary Bradycardia Palpitations OPHTHALMOLOGY IMAGE EXAM Routine 08/12/2023 12:00 AM CDT from Last 3 Months or Most Recently Relevant to Health Maintenance Results * MR Cardiac without and with IV Contrast (07/01/2024 3:29 PM GROUT MACHINE TENDER) Anatomical Region Laterality Modality Cardiac, Cardiovascular RST LOS, Thoracic ARZ LOS, Cardiovascular FLA LOS N/A Magnetic Resonance Impressions 07/01/2024 4:54 PM GROUT MACHINE TENDER 1. Mildly enlarged left ventricular chamber size [...] nulling kinetics are normal. However, the elevated kiana T1 mapping and extracellular volume values raise the possibility of cardiac amyloidosis. Other nonischemic etiologies, such as cardiac sarcoidosis and sequelae of prior myocarditis are other diagnostic considerations. 3. Normal right ventricular chamber size and systolic function. 4. Moderate aortic valve stenosis and mild to moderate aortic valve regurgitation. 5. Bilateral small pleural effusions, left greater than right. Narrative 07/01/2024 4:54 PM GROUT MACHINE TENDER EXAM: MR CARDIAC WITHOUT AND WITH IV CONTRAST COMPARISON: Cardiac amyloid SPECT CT 06/09/2024. FINDINGS: LEFT VENTRICLE: Mildly enlarged left ventricular chamber size. Mild concentric wall thickening. Normal myocardial nulling kinetics. Hypokinesis involving the mid anteroseptal and apical septal segments in addition to the basal inferolateral segment. There is mid myocardial late gadolinium enhancement in the basal inferolateral segment. [place] T1 mapping and calculated extracellular volume [...] lategadolinium enhancement in the basal inferolateral segment. [place] T1 mapping and calculated extracellular volume [...] IMG MRI PROC EDURES Final Result * [place] FNA BX WO IMG 1ST [place] (07/01/2024 1:00 PM GROUT MACHINE TENDER) Narrative Luiz Giraldo R.N. - 07/01/2024 1:00 PM GROUT MACHINE TENDER Luiz Giraldo R.N. 07/01/2024 1:07 PM Fat [...] SQ per site. Gt SCHMIDT P.A.-C., M.S. PROCEDURE/AK NOR SURGICAL ORDERABLES Final Result * Subcutaneous Fat Aspirate (07/01/2024 12:00 AM [facility]) 07/04/2024 11:[address] [facility] Report electronically signed by Jovon Law M.D. I verify that I have examined all relevant slides/material s for the specimen(s) and rendered or confirmed the diagnosis. 07/04/2024 11:[address] [facility] Gross Description The subcutaneous fat aspirate used for diagnostic purposes consists of 0.5 mL fat. 07/04/2024 11:26 AM GROUT MACHINE TENDER [facility] Interpretation FINAL DIAGNOSIS Congo red stain, abdominal subcutaneous fat aspirate specimen: Amyloid is absent. 07/04/2024 11:26 AM GROUT MACHINE TENDER [facility] 07/01/2024 07/01/2024 5:1 2 AM GROUT MACHINE TENDER Gt SCHMIDT P.A.-C., M.S. LAB PATHOLOG Y/CYTOLOGY ORDERABLES Final Result [facility] [address] [place] [address], [facility] [address] [place] [address] * NM Cardiac Amyloid SPECT CT (06/09/2024 2:55 PM GROUT MACHINE TENDER) 06/09/2024 1:33 PM GROUT MACHINE TENDER Narrative CV MERGE - 06/09/2024 3:09 PM GROUT MACHINE TENDER See PDF For Result Procedure Note Antony Pimentel M.D., Ph.D. - 06/09/2024 See PDF For Result Gt SCHMIDT P.A.-C., M.S. IMG NM PROCE DURES Final Result Performing Organization Address [facility] Co de Phone Number CV MERGE NA * ECG 12 Lead (06/06/2024 12:10 PM GROUT MACHINE TENDER) Ventricular Rate ECG/Min 74 BPM MUSE [place] Interval 222 ms MUSE QRSD Interval 114 ms MUSE QT Interval 412 ms MUSE QTC Interval 457 ms MUSE P [place] 39 degrees MUSE R [place] -39 degrees MUSE T Wave [place] 66 degrees MUSE 06/06/2024 12:1 0 PM GROUT MACHINE TENDER 06/06/2024 12:19 PM GROUT MACHINE TENDER Impressions MUSE - 06/06/2024 12:19 PM GROUT MACHINE TENDER Sinus rhythm with 1st degree A-V block [...] * Quantitative M-protein Study (06/06/2024 11:55 AM GROUT MACHINE TENDER) Immunoglobulin A (IgA), S 96 61 - 356 mg/dL 06/08/2024 1:25 PM GROUT MACHINE TENDER [facility] Immunoglobulin M (IgM), S 76 37 - 286 mg/dL 06/08/2024 1:24 PM GROUT MACHINE TENDER [facility] Immunoglobulin G (IgG), S 822 767 - 1590 mg/dL 06/08/2024 1:25 PM GROUT MACHINE TENDER [facility] Therapeutic Antibody Administered? Unspecified 06/08/2024 11:35 AM GROUT MACHINE TENDER [facility] Flag, M-protein Isotype Negative Negative 06/09/2024 12:57 PM GROUT MACHINE TENDER [facility] QMPTS Interpretation No monoclonal protein detected. 06/09/2024 12:57 PM GROUT MACHINE TENDER [facility] Comment: ----ADDITIONAL INFORMATION---- The submitted sample was assayed by five separate immunopurifications for IgG, IgA, IgM, kappa and lambda. The result reflects the findings of either no monoclonal protein detected or those monoclonal immunoglobulins that were detected. This test was developed and its performance characteristics determined by [facility] in a manner consistent with CLIA requirements. This test has not been cleared or approved by the U.S. Food and Drug Administration. Blood (Blood, Venous) 06/06/2024 11:55 AM GROUT MACHINE TENDER 06/08/2024 11:35 AM GROUT MACHINE TENDER Narrative [facility] - 06/09/2024 12:57 PM GROUT MACHINE TENDER Specimen Information: Specimen ID: [id number] Specimen Type: Blood Specimen Collection Start Date: 06/06/2024 11:55 AM Specimen Received Date: 06/08/2024 11:35 AM Specimen ID: [id number] Specimen Type: Blood Specimen Collection Start Date: 06/06/2024 11:55 AM Specimen Received Date: 06/08/2024 11:35 AM Gt SCHMIDT P.A.-C., M.S. LAB BLOOD AD D-ON Final Result Performing Organization Address City/[facility]/ZIP Co de Phone Number [facility] [address] [place] [address] [facility] [address] [place] [address] [facility] [address] [place] [address] [place] [address] * Thyroid Function [place] (06/06/2024 11:55 AM GROUT MACHINE TENDER) Pathologist [facility] TSH, Sensitive 4.2 0.3 - 4.2 mIU/L 06/06/2024 1:38 PM GROUT MACHINE TENDER DTL Blood (Blood, Venous) 06/06/2024 11:55 AM GROUT MACHINE TENDER 06/06/2024 12:32 PM GROUT MACHINE TENDER Gt SCHMIDT P.A.-C., M.S. LAB BLOOD AD D-ON Final Result Performing Organization Address [facility] de Phone Number [facility] [address] [place] [address], [facility] [address] [place] [address] * (ABNORMAL) NT-Pro B-Type Natriuretic Peptide (BNP) (06/06/2024 11:55 AM GROUT MACHINE TENDER) NT-Pro BNP 5802(H) <=540 pg/mL 06/06/2024 1:38 PM GROUT MACHINE TENDER DTL Comment: NT-proBNP values less than 300 [...] failure. Blood (Blood, Venous) 06/06/2024 11:55 AM GROUT MACHINE TENDER 06/06/2024 12:32 PM GROUT MACHINE TENDER Gt SCHMIDT P.A.-C., M.S. LAB BLOOD AD D-ON Final Result Performing Organization Address City/[facility]/ZIP Co de Phone Number [facility] [address] [place] [address], [place] [facility] [address] [place] [address] * (ABNORMAL) Immunoglobulin Free Light Chains (06/06/2024 11:55 AM GROUT MACHINE TENDER) [place] Free Light Chain, S 4.91(H) 0.3300 - 1.94 mg/dL 06/06/2024 6:25 PM GROUT MACHINE TENDER [facility] Lambda Free Light Chain, S 2.44 0.5700 - 2.63 mg/dL 06/06/2024 6:26 PM GROUT MACHINE TENDER [facility] [place]/Lambda FLC Ratio 2.01(H) 0.2600 - 1.65 06/06/2024 6:26 PM GROUT MACHINE TENDER [facility] Comment: Elevated free light chain ratios between 1.66 and 3.00 may occur due to polyclonal hypergammaglobulinemia or impaired renal clearance. An isolated increased free light chain ratio in this range should be interpreted with caution, and clinical correlation is recommended. Blood (Blood, Venous) 06/06/2024 11:55 AM GROUT MACHINE TENDER 06/06/2024 2:27 PM GROUT MACHINE TENDER Gt SCHMIDT P.A.-C., M.S. LAB BLOOD AD D-ON Final Result [facility] [address] [place] [address] [facility] [address] [place] [address] * (ABNORMAL) CBC with Differential, Blood (06/06/2024 11:55 AM GROUT MACHINE TENDER) [facility] Hemoglobin 10.9(L) 13.2 - 16.6 g/dL 06/06/2024 12:36 PM GROUT MACHINE TENDER DTL Hematocrit 35.7(L) 38.3 - 48.6 % 06/06/2024 12:36 PM GROUT MACHINE TENDER DTL Erythrocytes 3.89(L) 4.35 - 5.65 x10(12)/L 06/06/2024 12:36 PM GROUT MACHINE TENDER DTL MCV 91.8 78.2 - 97.9 fL 06/06/2024 12:36 PM GROUT MACHINE TENDER DTL RBC Distrib Width 15.5(H) 11.8 - 14.5 % 06/06/2024 12:36 PM GROUT MACHINE TENDER DTL Platelet Count 206 135 - 317 x10(9)/L 06/06/2024 12:36 PM GROUT MACHINE TENDER DTL Leukocytes 27.7(H) 3.4 - 9.6 x10(9)/L 06/06/2024 12:36 PM GROUT MACHINE TENDER DTL Neutrophils 8.41(H) 1.56 - 6.45 x10(9)/L 06/06/2024 2:57 PM GROUT MACHINE TENDER [facility] Lymphocytes 18.11(H) 0.95 - 3.07 x10(9)/L 06/06/2024 2:57 PM GROUT MACHINE TENDER DTL Monocytes 0.94(H) 0.26 - 0.81 x10(9)/L 06/06/2024 2:57 PM GROUT MACHINE TENDER DTL Eosinophils 0.15 0.03 - 0.48 x10(9)/L 06/06/2024 2:57 PM GROUT MACHINE TENDER DTL Basophils 0.06 0.01 - 0.08 x10(9)/L 06/06/2024 2:57 PM GROUT MACHINE TENDER DTL Blood (Blood, Venous) 06/06/2024 11:55 AM GROUT MACHINE TENDER 06/06/2024 12:17 PM GROUT MACHINE TENDER Gt SCHMIDT, P.A.-C., M.S. LAB BLOOD AD D-ON Final Result [facility] [address] [place] [address], [facility] DTL [facility] [address] [place] [address] [facility] [address] [place] [address] * Magnesium (06/06/2024 11:55 AM GROUT MACHINE TENDER) Pathologist [facility] Magnesium, S 2.0 1.7 - 2.3 mg/dL 06/06/2024 1:38 PM GROUT MACHINE TENDER DTL Blood (Blood, Venous) 06/06/2024 11:55 AM GROUT MACHINE TENDER 06/06/2024 12:32 PM GROUT MACHINE TENDER Gt SCHMIDT PQuique.-C., M.S. LAB BLOOD AD D-ON Final Result [facility] [address] [place] [address], [facility] DTL [facility] [facility] [address] [place] [address] * (ABNORMAL) Basic Metabolic Panel (06/06/2024 11:55 AM GROUT MACHINE TENDER) Pathologist [facility] Potassium, S 4.8 3.6 - 5.2 mmol/L 06/06/2024 1:38 PM GROUT MACHINE TENDER DTL Sodium, S 141 135 - 145 mmol/L 06/06/2024 1:38 PM GROUT MACHINE TENDER DTL Chloride, S 108(H) 98 - 107 mmol/L 06/06/2024 1:38 PM GROUT MACHINE TENDER DTL Bicarbonate, S 22 22 - 29 mmol/L 06/06/2024 1:38 PM GROUT MACHINE TENDER DTL Anion Gap 11 7 - 15 06/06/2024 1:38 PM GROUT MACHINE TENDER DTL BUN (Blood Urea Nitrogen), S 29(H) 8 - 24 mg/dL 06/06/2024 1:38 PM GROUT MACHINE TENDER DTL Creatinine 1.10 0.74 - 1.35 mg/dL 06/06/2024 1:38 PM GROUT MACHINE TENDER DTL Estimated GFR (eGFR) 65 >=60 mL/min/BSA 06/06/2024 1:38 PM GROUT MACHINE TENDER DTL Comment: Estimated GFR calculated using the 2020 CKD_EPI creatinine equation. Calcium, Total, S 8.9 8.8 - 10.2 mg/dL 06/06/2024 1:38 PM GROUT MACHINE TENDER DTL Glucose, S 191(H) 70 - 140 mg/dL 06/06/2024 1:38 PM GROUT MACHINE TENDER DTL Blood (Blood, Venous) 06/06/2024 11:55 AM GROUT MACHINE TENDER 06/06/2024 12:32 PM GROUT MACHINE TENDER Gt SCHMIDT P.A.-C., M.S. LAB BLOOD AD D-ON Final Result Performing Organization Address [facility]/ZIP Co de Phone Number [facility] [address] [place] [address], [facility] [address] [place] [address] * (ABNORMAL) Troponin T, 5th Generation (06/06/2024 11:54 AM GROUT MACHINE TENDER) Troponin T, 5th gen 45(H) <=15 ng/L 06/06/2024 2:41 PM GROUT MACHINE TENDER DTL Blood (Blood, Venous) 06/06/2024 11:54 AM GROUT MACHINE TENDER 06/06/2024 12:33 PM GROUT MACHINE TENDER Gabe Willett.Nani., M.S. LAB BLOOD AD D-ON Final Result Performing Organization Address [facility] Co de Phone Number [facility] [address] [place] [address], [facility] [address] [place] [address] * DX Chest AP or PA and Lateral 2 Views (06/06/2024 11:31 AM GROUT MACHINE TENDER) Anatomical Region Laterality Modality Chest, Thoracic RST LOS, Tho racic ARZ LOS, Thoracic FLA LOS N/A Digital Radiography Impressions 06/06/2024 11:57 AM GROUT MACHINE TENDER Compared to 09/05/2022, mildly increased reticulations with [...] quadrant surgical clips. Narrative 06/06/2024 11:57 AM GROUT MACHINE TENDER EXAM: DX CHEST AP OR PA AND [...] Recently Relevant to Health Maintenance Insurance MEDICARE [facility] Advance Directives For more information, please contact: [phone] * Full Code (Latest Code Status on File) Date Activated Date Inactivated Comments 01/10/2021 12:05 PM 01/11/2021 2:12 PM Question Answer Comments Full Code: Discussed Care Teams Press Technician Relationship Specialty Start Date End Date Elsewhere, Pcp PCP - General Family Medicine 01/10/21
--- OUTSIDE RECORDS SUMMARY | 2024-08-19 20:42 | XMS_ITS | Encounter Summary ---
Author Organization [facility] Address [address] [place] [address] Care Team Providers Care Regulatory Affairs Analyst Name Role Phone Elsewhere, Pcp Primary Care Provider Unavailabl e Encounter Details Date Type Department Care Team (Latest Contact Info) Description 07/11/2024 Virtual Visit Department of Cardiovascular Medicine in [place], [place] [address] [place] [address] Gt Ricks, ROXANA, P.A.-C., M.S. [address] [place] [address] Stenosis Aortic Valve Acquired (Primary Dx); Diabetes Mellitus Type 2 (HCC); Atherosclerotic Heart Disease [place] Coronary Artery With Other Forms Angina [...] any clubs o r organizations such as jainism groups, unions, fraGdeSlon or athletic groups, or school groups? No [...] and heating? 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 ROXANA Callaway, Tiffany., M.S. ENTRY MACHINE OPERATOR ENTRY MACHINE OPERATOR documented in this encounter Plan of Treatment Not on file documented as of this encounter Visit Diagnoses Diagnosis Stenosis Aortic Valve Acquired- Primary Diabetes Mellitus Type 2 (HCC) Atherosclerotic Heart Disease [place] Coronary Artery With Other Forms Angina Pectoris (Angina Equivalent) Coronary Stent Status Post Hypertension Essential Primary Beat Premature Ventricular documented in this encounter Care Teams Regulatory Affairs Analyst Relationship Specialty Start Date End Date Elsewhere, Pcp PCP - General Family Medicine 01/10/21 documented as of this encounter
--- OUTSIDE RECORDS SUMMARY | 2024-08-19 20:42 | XMS_ITS | Encounter Summary ---
Author Organization [facility] Address [address] [place] [address] Care Team Providers Care Senior Drupal Developer Name Role Phone Elsewhere, Pcp Primary Care Provider Unavailabl e Reason for Visit * Reason Onset Date Comments Results 06/15/2024 Encounter Details Date Type Department Care Team (Latest Contact Info) Description 06/15/2024 Clinical Communication Department of Cardiovascular Medicine in [place], [place] [address] [place] [address] Gt Ricks, ROXANA, P.A.-C., M.S. [address] [place] [phone] Results Social History Tobacco Use Types Packs/Day [...] How often do you attend chur or mormonism services? Patient declined 12/31/2021 Do you belong to any clubs o r organizations such as mandaen groups, unions, fraternal [...] heating? Not hard at all 12/31/2021 [facility] - [...] or slept in a correction (including now)? 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
[2024-08-19 20:45] LABS: Chloride* 108 mmol/L (96-114); Potassium* 4.5 mmol/L (3.6-5.1); Sodium* 139 mmol/L (135-149)
[2024-08-19 20:48] LABS: Anion Gap 7 mEq/L (7-15); Blood Urea Nitrogen* 31 mg/dL (7-30); Calcium* 8.9 mg/dL (8.4-10.6); Carbon Dioxide* 24 mmol/L (20-32); Creatinine* 0.8 mg/dL (0.5-1.5); Estimated Glomerular Filt Rate 85 ml/min; Glucose* 163 mg/dL (60-115)
[2024-08-19 20:59] LABS: D Dimer Quantitative* 0.96 ug/ml (0.00-0.50); INR 1.24 (0.91-1.10); NT Pro B Type NatriureticPept* 10100 pg/mL; Partial Thromboplastin Time* 34 Seconds (23-33); Prothrombin Time 16.5 Seconds
--- NOTE | 2024-08-19 21:27 | CRLHL7_ITS ---
For Patients: As a result of the Century Cures Act, medical imaging exams and procedure reports are released immediately into your electronic medical record. You may view this report before your referring provider. If you have questions, please contact your health care provider. Indication: Chest pain Technique: Postcontrast CTA of the chest following 95 mL Isovue 370 IV contrast. Axial MIP images obtained. Comparison: CT abdomen pelvis performed 08/27/2022 Findings: Pulmonary arteries: Mild respiratory motion degradation. No large or central pulmonary embolism appreciated. Lungs: Small bilateral effusions. Interlobular septal thickening. Pulmonary mosaicism. Peripheral predominant reticular opacities. Bronchial wall thickening. Mild atelectasis. Mediastinum: No acute abnormality appreciated. Cardiomegaly. Calcified coronary arterial and aortic atherosclerosis. Small pericardial effusion. Lymph nodes: No gross lymphadenopathy. Upper abdomen: Partially visualized, partially calcified lesions within the anterior mesentery. At least 1 of these is new compared to prior examination. Soft tissues: No acute abnormality appreciated. Bones: No acute abnormality appreciated. Chronic T6 compression fracture. Impression: 1. Mild respiratory motion degradation. No large or central pulmonary embolism is appreciated. 2. Findings compatible with heart failure and pulmonary edema. 3. There are partially visualized, partially calcified upper abdominal anterior soft tissue lesions. Compared to CT of the abdomen and pelvis from 08/27/2022, at least 1 of these is favored to be new. Outpatient CT of the abdomen and pelvis with contrast recommended. Please note that all CT scans at this facility use dose modulation, iterative reconstruction, and/or weight-based dosing when appropriate to reduce radiation dose to as low as reasonably achievable. Dictated by Charli Montiel MD @ 08/19/2024 10:14:51 PM (Electronically Signed)
[2024-08-19 22:18] LABS: Slide Review Acceptable Review (Acceptable)
--- NOTE | 2024-08-19 22:48 | PM.IMHP1 ---
Assessment and Plan Assessment and plan (1) Congestive heart failure: Problem comment: Acute on chronic heart failure. Some of the heart failure may be due to reductions in his heart failure medicine over the past couple months, reductions in spironolactone, valsartan due to low blood pressure. Appears now to need increased diuretic and if tolerated increased guideline directed heart failure therapy. Obtain echo. Status: Acute (2) Hypotension: Problem comment: He has had recent problems with low blood pressure over the past few months with reduction in his heart failure medicines as a result. This will need close monitoring as we try to titrate up with guideline directed heart failure therapy and initiate diuresis. Status: Acute (3) Atrial fibrillation: Problem comment: - rate controlled, paroxysmal, on chronic anticoagulation - continue home dose of Carvedilol, Continue Eliquis Obtain echo Final Impressions: 1. Normal left ventricular size, mildly increased wall thickness, mildly reduced global systolic function, calculated EF of 50 %. 2. Right ventricular cavity size is normal, global systolic RV function is normal. 3. Mildly enlarged left atrium. 4. The aortic valve is calcified, moderate to severe stenosis and moderate regurgitation. The aortic valve peak velocity is 3.4 m/s, the peak gradient is 45 mmHg, and the mean gradient is 25 mmHg. The aortic valve area is 1.19 cm?? with a dimensionless index of 0.24. The stroke volume index is 51.5 ml/m??. 5. The mitral valve is sclerotic, trace mitral regurgitation. 6. Tricuspid valve is normal. 7. Moderately increased estimated pulmonary pressures by tricuspid regurgitation velocity and right atrial pressure (56 mmHg plus RAP). 8. No pericardial effusion. Status: Chronic (4) Type 2 diabetes mellitus: Problem comment: - on Jardiance. Sliding scale insulin with Accu-Cheks. Status: Chronic (5) Frailty syndrome in geriatric patient: Problem comment: Patient remains quite frail. He has had weight loss and progressive decline in mobility and exercise tolerance. Continue to evaluate and treat with therapy Status: Acute (6) Chronic lymphocytic leukemia: Problem comment: Chronic lymphocytosis. Status: Acute (7) Aortic stenosis, severe: Problem comment: Repeat echo Status: Chronic (8) Hip fracture, right: Problem comment: - s/p mechanical fall from standing - ORIF right hip, IM nail 07/19/2024, Dr. Greenwood Making slow progress with PT and OT. Discharge from [facility] to home 2 days ago Status: Acute (9) Weight loss, non-intentional: Problem comment: Patient describe significant weight loss. At this point he appears to have had some lean body weight loss but now appears edematous. Continue to monitor with diuresis for heart failure. Weight on 10/20/2023 was 79.3 kg Weight on 06/01/2024 is 78.8 kg Status: Acute Plan 88-year-old male with heart failure, acute on chronic exacerbation, likely in part due to tapering of heart failure medicines due to hypotension. Will now attempt to provide diuresis and resume heart failure medicines if blood pressure allows. This will likely require at least 3 days in the hospital. Total Time Spent Total Time Spent: Total time spent today is 75 minutes in reviewing outside records, coordination of care, discussion with patient and daughter and other providers ongoing management of heart failure and hypotension Hospitalist- H&P: HPI History of Present Illness Date Seen: 08/19/24 Chief complaint: Lt chest pain, tingling Lt arm Narrative: Kristofer Garcia is a 88 year old male with coronary artery disease, heart failure, aortic stenosis, paroxysmal atrial fibrillation, recent hip fracture, interstitial lung disease, CLL presents with anterior chest pain and dyspnea the developed today. Patient was hospitalized with a hip fracture at the beginning of July. He was discharged to skilled nursing after approximately a week. He was discharged from the skilled nursing to his own home 2 days ago. He reports he has been getting around fairly well with a walker at home. He also notes that he has been sleeping in a recliner during his time in the skilled nursing as well as at home. He tries to lay supine in bed he gets dyspneic. Today he had onset of anterior and left-sided chest pain it did radiate towards his left shoulder. Is a constant pain did not come on with activity and did not go away with rest. He did have shortness of breath with this as well. He noted that his heart was going fast, heart rate of 104 on his pulse oximeter. He was not hypoxic on his home pulse oximeter however. No fever. He reports he has been careful about taking his heart failure medicines. He did have his heart failure medicine reduced over the past 1-2 months. His spironolactone was reduced from 20/5 to 12.5 mg a day his valsartan was reduced from 320 mg to 160 mg to 80 mg daily due to low blood pressure. He reports he has been following a low-salt diet. He does not weigh himself. Does think he has lost quite a bit of weight in the last year. There is concerned that this is due to sarcopenia and lean body mass loss due to a very sedentary lifestyle. Review of Systems Narrative: Reports no gastrointestinal problems or bladder problems. He has been managing his hip pain after his hip fracture quite well. His right shoulder pain after a fall at home when he had the hip fracture is also better. He does have chronic lower extremity edema. Unclear if this is worse. [facility] Medical History (Updated 08/19/24 @ 23:10 by Nick Wolfe MD) Weight loss, non-intentional ?R63.4 - Abnormal weight loss (ICD-10) Frailty syndrome in geriatric patient ?R54 - Age-related physical debility (ICD-10) GERD (gastroesophageal reflux disease) ?K21.9 - Gastro-esophageal reflux disease without esophagitis (ICD-10) Essential hypertension ?I10 - Essential (primary) hypertension (ICD-10) Dysphagia ?R13.10 - Dysphagia, unspecified (ICD-10) CAD (coronary artery disease) ?I25.10 - Atherosclerotic heart disease of [place] coronary artery without angina pectoris (ICD-10) Type 2 diabetes mellitus ?E11.9 - Type 2 diabetes mellitus without complications (ICD-10) Atrial fibrillation ?I48.91 - Unspecified atrial fibrillation (ICD-10) Pneumonia ?J18.9 - Pneumonia, unspecified organism (ICD-10) Elevated troponin ?R79.89 - Other specified abnormal findings of blood chemistry (ICD-10) COVID ?U07.1 - COVID-19 (ICD-10) Physical deconditioning ?R53.81 - Other malaise (ICD-10) Colitis ?K52.9 - Noninfective gastroenteritis and colitis, unspecified (ICD-10) CLL (chronic lymphocytic leukemia) ?C91.10 - Chronic lymphocytic leukemia of B-cell type not having achieved remission (ICD-10) Aortic stenosis, severe ?I35.0 - Nonrheumatic aortic (valve) stenosis (ICD-10) Diverticulosis ?K57.90 - Diverticulosis of intestine, part unspecified, without perforation or abscess without bleeding (ICD-10) Blood clot of artery under arm ?I74.2 - Embolism and thrombosis of arteries of the upper extremities (ICD-10) Diabetic retinopathy ?E11.319 - Type 2 diabetes mellitus with unspecified diabetic retinopathy without macular edema (ICD-10) Interstitial lung disease ?J84.9 - Interstitial pulmonary disease, unspecified (ICD-10) ROSA ISELA (obstructive sleep apnea) ?G47.33 - Obstructive sleep apnea (adult) (pediatric) (ICD-10) Hyperlipidemia ?E78.5 - Hyperlipidemia, unspecified (ICD-10) 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 - Dissection of other specified artery (ICD-10) Ileitis ?K52.9 - Noninfective gastroenteritis and colitis, unspecified (ICD-10) Surgical History Patella fracture ?S82.009A - Unspecified fracture of unspecified patella, initial encounter for closed fracture (ICD-10) History of atherectomy ?Z98.890 - Other specified postprocedural states (ICD-10) H/O colectomy ?Z90.49 - Acquired absence of other specified parts of digestive tract (ICD-10) History of laparoscopic cholecystectomy ?Z90.49 - Acquired absence of other specified parts of digestive tract (ICD-10) Family History (Updated 08/19/24 @ 22:58 by Nick Wolfe MD) Brother Coronary artery disease Heart disease Diabetes High blood pressure Mother Coronary artery disease Diabetes Social History (Updated 08/19/24 @ 22:59 by Nick Wolfe MD) Narrative: He lives at home with his daughter. Code status is full. He does not smoke. Former smoker. He does not drink alcohol. What is your current living situation?: I presently have a place to live Problems where you live: no known problems Problems where you live details: no known problems In the past 12 months, utilities in danger of being shut off: no In past 12 months, lack of transportation kept you from medical appts, meetings, work, or getting things needed for daily living: no In the past 12 mos, have been you worried that your food would run out before you had money to buy more?: never true In the past 12 mos, the food you bought just didn't last and you didn't have money to buy more?: never true Highest level of school completed/degree received: high school graduate Smoking Status: Former smoker What tobacco products do you use: cigarettes Smoking quit date/years: >15 years ago Do you use any of these nicotine containing products: None Second hand tobacco smoke exposure: Yes How often do you have a drink containing alcohol: never How often do you have six or more drinks on one occasion: Never AUDIT-C Alcohol total score: 0 Non-prescribed substance use: denies use Caffeine: Yes (Tea) How often does anyone, including family, friends and others, physically hurt you: never How often does anyone, including family, friends and others, insult or talk down to you: never How often does anyone, including family, friends and others, threaten you with harm: never How often does anyone, including family, friends and others, scream or curse at you: never service: Yes Meds Home Medications and Allergies Home Medications ?Medication ?Instructions ?Recorded ?Confirmed ?Type atorvastatin 20 mg tablet 20 mg PO QPM 03/26/22 08/19/24 History carvedilol 25 mg tablet 25 mg PO BID 03/26/22 08/19/24 History omeprazole 20 mg capsule,delayed 20 mg PO BID 03/26/22 08/19/24 History release apixaban 2.5 mg tablet (Eliquis) 2.5 mg PO BID 08/27/22 08/19/24 History ascorbic acid (vitamin C) 500 mg 500 mg PO DAILY 08/27/22 08/19/24 History tablet aspirin 81 mg chewable tablet 1 tab PO DAILY 08/27/22 08/19/24 History empagliflozin 25 mg tablet 25 mg PO DAILY 08/27/22 08/19/24 History (Jardiance) vitamin E mixed 400 unit capsule 400 unit PO DAILY 08/27/22 08/19/24 History cetirizine 10 mg tablet 10 mg PO DAILY 09/21/23 08/19/24 History albuterol sulfate 90 mcg/actuation 2 inh inhalation Q4H PRN 07/19/24 07/19/24 History aerosol inhaler esomeprazole magnesium 40 mg 40 mg PO DAILY 08/19/24 08/19/24 History capsule,delayed release (Nexium) Allergies Allergy/AdvReac Type Severity Reaction Status Date / Time amlodipine Allergy Verified 08/19/24 21:34 metformin AdvReac Intermediate Diarrhea Verified 08/19/24 21:34 Exam Narrative: Exam Narrative: He is alert and appears to have mild increased work of breathing, tachypnea. Eyes normal. Oropharynx normal. Neck is supple without mass or adenopathy. Does have jugular venous distention to the angle of the mandible at about 25?. Respirations with bibasilar crackles up about 1/3. Clear upper lung davison. Cardiovascular: S1, S2, relatively regular rhythm. 2/6 systolic murmur. Abdomen: Bowel sounds active. Abdomen is soft without tenderness or mass. External genitalia normal. Extremities: 3+ edema on the right is and 2 to 3+ edema on the left. Diminished but present pedal pulses. No skin breakdown. No marked venous stasis skin changes. Const: Vital Signs, click to edit/add: Vital Signs - 24 hr 08/19/24 19:59 08/19/24 20:08 08/19/24 20:33 Temperature 96.5 F L Pulse Rate [Left P ulse Oximeter] 104 H 96 Respiratory Rate 16 16 Blood Pressure [Le ft Upper Arm] 139/60 141/65 H 135/66 Pulse Oximetry 95 95 95 Oxygen Delivery Me thod Room Air Room Air Room Air Documenting provider has reviewed patient's vital signs: yes Hospitalist - H&P: Result Labs Labs: Short CBC 08/19/24 Range/Units 20:11 WBC 41.72 H* (4.50-11.00) K/uL Hgb 9.8 L (13.5-17.5) gm/dL Hct 31.9 L (37.0-53.0) % Plt Count 271 (140-440) K/uL [facility] 08/19/24 20:11 Sodium 139 Potassium 4.5 Chloride 108 Carbon Dioxide 24 BUN 31 H Creatinine 0.8 Glucose 163 H Calcium 8.[address] scan - chest: Radiologist's impression: Indication: Chest pain Technique: Postcontrast CTA of the chest following 95 mL Isovue 370 IV contrast. Axial MIP images obtained. Comparison: CT abdomen pelvis performed 08/27/2022 Findings: Pulmonary arteries: Mild respiratory motion degradation. No large or central pulmonary embolism appreciated. Lungs: Small bilateral effusions. Interlobular septal thickening. Pulmonary mosaicism. Peripheral predominant reticular opacities. Bronchial wall thickening. Mild atelectasis. Mediastinum: No acute abnormality appreciated. Cardiomegaly. Calcified coronary arterial and aortic atherosclerosis. Small pericardial effusion. Lymph nodes: No gross lymphadenopathy. Upper abdomen: Partially visualized, partially calcified lesions within the anterior mesentery. At least 1 of these is new compared to prior examination. Soft tissues: No acute abnormality appreciated. Bones: No acute abnormality appreciated. Chronic T6 compression fracture. Impression: 1. Mild respiratory motion degradation. No large or central pulmonary embolism is appreciated. 2. Findings compatible with heart failure and pulmonary edema. 3. There are partially visualized, partially calcified upper abdominal anterior soft tissue lesions. Compared to CT of the abdomen and pelvis from 08/27/2022, at least 1 of these is favored to be new. Outpatient CT of the abdomen and pelvis with contrast recommended.
[2024-08-19 23:00] LABS: Troponin, Point-of-Care* 0.03 ng/ml (0.01-0.04)
[2024-08-19 23:20] VITALS: BP 116/59; PULSE 98; RESP 18; TEMP 36.5; O2SAT 90; BMI 27.9
[2024-08-20] MEDS: FUROSEMIDE 10 MG/ML inj 40 MG IVP (00:47)
[2024-08-20 01:00] VITALS: PULSE 86
[2024-08-20 03:00] VITALS: PULSE 84; RESP 14
[2024-08-20] MEDS: FUROSEMIDE 10 MG/ML inj 20 MG IVP ×2 (06:55→13:22)
[2024-08-20] MEDS: OMEPRAZOLE 20 MG CAPSULE DR 40 MG PO (06:55)
[2024-08-20 07:00] VITALS: BP 137/63; PULSE 71; PULSE 76; PULSE 81; RESP 18; TEMP 36.9; O2SAT 94
[2024-08-20 07:00] LABS: Basophils Percent Auto 0.1 % (0.0-3.0); Eosinophils Percent Auto 0.7 % (0.0-7.0); Hemoglobin* 8.8 gm/dL (13.5-17.5); Immature Granulocytes Pct Auto 0.1 %; Lymphocytes Percent Auto 74.3 % (20-44); Mean Corpuscular HGB Conc 30 gm/dL (32-36); Mean Corpuscular Hemoglobin 29 pg (26-34); Mean Corpuscular Volume 97 fL (80-100); Monocytes Percent Auto 2.7 % (0.0-11.0); Neutrophils Percent Auto 22.1 % (42.0-72.0); Platelet Count* 211 K/uL (140-440); RDW Coefficient of Variation % 20.7 % (11.5-15.5); Red Blood Count* 2.99 m/uL (4.30-5.90)
[2024-08-20 07:15] LABS: Chloride* 108 mmol/L (96-114); Potassium* 3.6 mmol/L (3.6-5.1); Sodium* 139 mmol/L (135-149)
[2024-08-20 07:18] LABS: Anion Gap 7 mEq/L (7-15); Blood Urea Nitrogen* 29 mg/dL (7-30); Calcium* 8.3 mg/dL (8.4-10.6); Carbon Dioxide* 24 mmol/L (20-32); Creatinine* 0.9 mg/dL (0.5-1.5); Est. Creatinine Clearance* 47.74; Estimated Glomerular Filt Rate 82 ml/min; Glucose* 123 mg/dL (60-115); Magnesium* 1.6 mg/dL (1.5-2.6)
--- NOTE | 2024-08-20 07:29 | PC.NURSE ---
Pt arrived to the floor at 2320. Alert, oriented and vitally stable. Pt states mild chest pain rated 2/10, states tolerable. Pt uses bedside urinal, tolerates well. Tele shows sinus arrhythmia. Edema of bilateral lower extremities. Pt in bed, appears to be resting, call light within reach.
[2024-08-20 07:30] LABS: Troponin I* 1.03 ng/mL (0.01-0.04)
[2024-08-20 07:51] LABS: Slide Review Reflex Yes; White Blood Count* 25.88 K/uL (4.50-11.00)
[2024-08-20 07:52] LABS: Slide Review Acceptable Review (Acceptable)
[2024-08-20] MEDS: VALSARTAN 80 MG TABLET PO (08:54)
[2024-08-20] MEDS: APIXABAN 5 MG TABLET 2.5 MG PO (08:54)
[2024-08-20] MEDS: SPIRONOLACTONE 25 MG TABLET PO (08:54)
[2024-08-20] MEDS: SODIUM CHLORIDE 0.9 % (FLUSH) 10 ML SYRINGE 5 ML IVF (08:54)
[2024-08-20] MEDS: CETIRIZINE HCL 10 MG TABLET PO (08:54)
[2024-08-20] MEDS: EMPAGLIFLOZIN 25 MG TABLET PO (08:54)
[2024-08-20] MEDS: ASPIRIN 81 MG TAB.CHEW PO (08:54)
[2024-08-20 11:00] VITALS: BP 128/57; PULSE 81; RESP 18; TEMP 36.5; O2SAT 92
[2024-08-20] MEDS: POTASSIUM BICARB 25 MEQ EFFERVESCENT TAB PO (13:22)
[2024-08-20 14:38] LABS: Troponin I* 1.51 ng/mL (0.01-0.04)
--- NOTE | 2024-08-20 14:45 | P.DS_ITS ---
DS: Providers Provider Date Seen: 08/20/24 Date of admission: 08/19/24 23:20 Primary care physician: Luiz Bullock MD Admitting Clinician: Nick Wolfe MD Attending Physician on discharge: Nick Wolfe MD Date of Discharge: 08/20/24 DS: Diagnosis Discharge Diagnosis (1) NSTEMI (non-ST elevated myocardial infarction): Status: Acute Problem details: Troponin on admission 08/19/2024 0.03. Troponin today, 08/20/2024 1.03. (2) Heart failure with reduced ejection fraction: Status: Acute Problem details: Echocardiogram from 08/20/2024: Final Impressions: 1. Mild to moderately increased left ventricular size, normal wall thickness, moderately reduced global systolic function, calculated EF of 37 %. 2. Inferior wall and posterior wall are abnormal. 3. The aortic valve is calcified, moderate to severe stenosis and moderate to severe regurgitation. The aortic valve peak velocity is 3.5 m/s, the peak gradient is 50 mmHg, and the mean gradient is 30 mmHg. 4. Moderately enlarged left atrium. 5. The mitral valve is sclerotic, moderate mitral regurgitation. 6. Tricuspid valve is normal and severe tricuspid regurgitation. 7. Severely increased estimated pulmonary pressures by tricuspid regurgitation velocity and right atrial pressure (77 mmHg plus RAP). Comparison Compared to prior exam images and report of 09/21/2023: - The left ventricular function has decreased. - Aortic regurgitation has increased. - Tricuspid regurgitation has significantly increased. - Wall motion abnormalities are new. - PA systolic pressure is higher. (3) Pulmonary hypertension: Status: Acute (4) Aortic stenosis: Status: Acute (5) Aortic regurgitation: Status: Acute (6) Mitral regurgitation: Status: Acute (7) Tricuspid regurgitation: Status: Acute (8) Frailty syndrome in geriatric patient: Status: Acute Problem details: Patient remains quite frail. He has had weight loss and progressive decline in mobility and exercise tolerance. Continue to evaluate and treat with therapy (9) Atrial fibrillation: Status: Chronic Problem details: - rate controlled, paroxysmal, on chronic anticoagulation - continue home dose of Carvedilol, Continue Eliquis (10) Chronic lymphocytic leukemia: Status: Chronic Problem details: - elevated WBC. Follow - outpatient follow-up with PCP and Hematology DS: Summary Hospital Course Hospital Course: 88-year-old male with multiple structural cardiac problems noted above admitted to the hospital with anterior chest pain and dyspnea. At the time of admission he was found to have evidence of heart failure with pulmonary edema on imaging and clinical examination and lower extremity edema. Marked elevation of proBNP. Normal troponin. Electrocardiogram unchanged. At the time of admission this was thought possibly due to downward titration of his heart failure medicines over the past month due to hypotension. He was treated with diuresis with furosemide and clinically improved through his hospital stay. His dyspnea improved. His chest pain resolved. With the diuresis he did not have hypotension. This morning he had an elevated troponin at 1.03. Electrocardiogram was unchanged. Echocardiogram was was obtained and is noted above with notable decrease in his left ventricular ejection fraction to 37%. He continued to get diuresis with a plan to transition to other guideline directed medical therapy for heart failure with reduced ejection fraction. Given his frailty and multiple cardiac problems I reviewed with the patient and his family plan of care. They had requested that he be transferred to be under the care of [facility] where he gets his outpatient cardiology care. I spoke with who graciously accepts the patient in transfer. Time Spent with Patient Time attestation: Total time spent providing and/or coordinating discharge services: Time spent: Greater than 30 minutes Exam Narrative: Exam Narrative: He is alert and appears in no distress. Respirations notable for improvement in his basilar crackles. Yesterday up about 1/3 today less than 1/4. Less work of breathing. Cardiovascular: S1, S2, 2/6 systolic ejection murmur heard across the precordium. Abdomen is soft without tenderness or mass. Extremities with significantly improved edema, 2+ on the right 1 to 2+ on the left. Intact pedal pulses. Good perfusion. Const: Vital Signs, click to edit/add: Vital Signs - 24 hr 08/19/24 19:59 08/19/24 20:08 08/19/24 20:33 Temperature 96.5 F L Pulse Rate Pulse Rate [Left P ulse Oximeter] 104 H 96 Pulse Rate [Pulse Oximeter] Respiratory Rate 16 16 Blood Pressure [Le ft Arm] Blood Pressure [Le ft Upper Arm] 139/60 141/65 H 135/66 Pulse Oximetry 95 95 95 Oxygen Delivery Me thod Room Air Room Air Room Air 08/19/24 23:20 08/19/24 23:20 08/20/24 01:00 Temperature 97.7 F Pulse Rate 86 Pulse Rate [Left P ulse Oximeter] Pulse Rate [Pulse Oximeter] 98 Respiratory Rate 18 18 Blood Pressure [Le ft Arm] 116/59 L Blood Pressure [Le ft Upper Arm] Pulse Oximetry 90 90 Oxygen Delivery Me thod Room Air Room Air 08/20/24 03:00 08/20/24 07:00 08/20/24 07:00 Temperature 98.4 F Pulse Rate 71 Pulse Rate [Left P ulse Oximeter] Pulse Rate [Pulse Oximeter] 84 76 Respiratory Rate 14 18 Blood Pressure [Le ft Arm] 137/63 Blood Pressure [Le ft Upper Arm] Pulse Oximetry 94 Oxygen Delivery Me thod Room Air 08/20/24 07:00 08/20/24 11:00 Temperature 97.7 F Pulse Rate Pulse Rate [Left P ulse Oximeter] Pulse Rate [Pulse Oximeter] 81 81 Respiratory Rate 18 18 Blood Pressure [Le ft Arm] 128/57 L Blood Pressure [Le ft Upper Arm] Pulse Oximetry 92 Oxygen Delivery Me thod Room Air DS: Data Data Completed and Pending Completed studies during hospitalization: Procedures Reposition Right Upper Femur with Intramedullary Internal Fixation Device, Open Approach (07/19/24) Transfusion of Nonautologous Red Blood Cells into Peripheral Vein, Percutaneous Approach (07/19/24) Labs on day of discharge: Labs from last 24 hours 08/20/24 08/20/24 08/19/24 13:48 06:34 22:32 WBC 25.88 H* RBC 2.99 L Hgb 8.8 L Hct 29.0 L MCV 97 MCH 29 MCHC 30 L RDW Coeff of Ravi 20.7 H Plt Count 211 Neut % (Auto) 22.1 L Lymph % (Auto) 74.3 H [place] % (Auto) 2.7 Eos % (Auto) 0.7 Baso % (Auto) 0.1 Neut # (Auto) 5.70 Lymph # (Auto) 19.20 H [place] # (Auto) 0.70 Eos # (Auto) 0.20 Baso # (Auto) 0.00 Abs Immat Gran (auto) 0.00 Imm/Tot Granulo (auto) 0.1 Diff Slide Review Acceptable Review INR APTT D-Dimer Quant (PE/DVT) Sodium 139 Potassium 3.6 Chloride 108 Carbon Dioxide 24 Anion Gap 7 BUN 29 Creatinine 0.9 Estimated Creat Clear 47.74 Estimated GFR 82 Glucose 123 H Calcium 8.3 L Magnesium 1.6 Troponin I 1.51 H* 1.03 H* NT-Pro-B Natriuret Pep POC Troponin I 0.03 08/19/24 08/19/24 20:11 20:09 WBC 41.72 H* RBC 3.30 L Hgb 9.8 L Hct 31.9 L MCV 97 MCH 30 MCHC 31 L RDW Coeff of Ravi 20.6 H Plt Count 271 Neut % (Auto) 16.8 L Lymph % (Auto) 80.6 H [place] % (Auto) 1.8 Eos % (Auto) 0.5 Baso % (Auto) 0.1 Neut # (Auto) 7.00 Lymph # (Auto) 33.60 H [place] # (Auto) 0.80 Eos # (Auto) 0.20 Baso # (Auto) 0.00 Abs Immat Gran (auto) 0.10 Imm/Tot Granulo (auto) 0.2 Diff Slide Review Acceptable Review INR 1.24 H APTT 34 H D-Dimer Quant (PE/DVT) 0.96 H Sodium 139 Potassium 4.5 Chloride 108 Carbon Dioxide 24 Anion Gap 7 BUN 31 H Creatinine 0.8 Estimated Creat Clear Estimated GFR 85 Glucose 163 H Calcium 8.9 Magnesium Troponin I NT-Pro-B Natriuret Pep 91848 POC Troponin I 0.[address] scan - chest: Radiologist's impression: Indication: Chest pain Technique: Postcontrast CTA of the chest following 95 mL Isovue 370 IV contrast. Axial MIP images obtained. Comparison: CT abdomen pelvis performed 08/27/2022 Findings: Pulmonary arteries: Mild respiratory motion degradation. No large or central pulmonary embolism appreciated. Lungs: Small bilateral effusions. Interlobular septal thickening. Pulmonary mosaicism. Peripheral predominant reticular opacities. Bronchial wall thickening. Mild atelectasis. Mediastinum: No acute abnormality appreciated. Cardiomegaly. Calcified coronary arterial and aortic atherosclerosis. Small pericardial effusion. Lymph nodes: No gross lymphadenopathy. Upper abdomen: Partially visualized, partially calcified lesions within the anterior mesentery. At least 1 of these is new compared to prior examination. Soft tissues: No acute abnormality appreciated. Bones: No acute abnormality appreciated. Chronic T6 compression fracture. Impression: 1. Mild respiratory motion degradation. No large or central pulmonary embolism is appreciated. 2. Findings compatible with heart failure and pulmonary edema. 3. There are partially visualized, partially calcified upper abdominal anterior soft tissue lesions. Compared to CT of the abdomen and pelvis from 08/27/2022, at least 1 of these is favored to be new. Outpatient CT of the abdomen and pelvis with contrast recommended. Discharge Plan Discharge Disposition: [facility] Date of Admission: 08/19/24 23:20 Attending Provider on Discharge: Nick Wolfe Primary Care Provider: Luiz Bullock Condition: Unchanged Discharge Orders: Transfer of Care to Other Hospital (ORDER); Ordered 08/20/24 Ordered By: Nick Wolfe Oxygen: No Urinary Catheter: No
[2024-08-20] MEDS: ASPIRIN 81 MG TAB.CHEW 324 MG PO (14:47)
[2024-08-20] MEDS: CLOPIDOGREL 75 MG TABLET 300 MG PO (14:48)
--- NOTE | 2024-08-20 17:15 | PC.NURSE ---
Discharge: Patient pleasant and cooperative, A&O. VSS, afebrile. Patient denies pain this shift. Discharged to higher level of care per families request. Discharged via EMS
== END 2024-08-20 15:37 | disposition short-term general hospital (02) | DRG 280 ==
LOC: ED 22:07 → MEDSURG 23:13
PROVIDERS: Admitting Provider Family Medicine; Emergency Provider Family Medicine; PCP Family Medicine; Visit Provider Family Medicine
DX: I21.4 Non-ST elevation (NSTEMI) myocardial infarction (principal); I50.23 Acute on chronic systolic (congestive) heart failure; C91.10 Chronic lymphocytic leukemia of B-cell type not having achieved remission; J84.9 Interstitial pulmonary disease, unspecified; I45.2 Bifascicular block; I48.20 Chronic atrial fibrillation, unspecified; I11.0 Hypertensive heart disease with heart failure; I48.91 Unspecified atrial fibrillation; Z79.01 Long term (current) use of anticoagulants; Z79.82 Long term (current) use of aspirin; M62.84 Sarcopenia; E11.319 Type 2 diabetes mellitus with unspecified diabetic retinopathy without macular edema; I35.0 Nonrheumatic aortic (valve) stenosis; G47.33 Obstructive sleep apnea (adult) (pediatric); R07.9 Chest pain, unspecified; I48.0 Paroxysmal atrial fibrillation; R63.4 Abnormal weight loss; Z79.84 Long term (current) use of oral hypoglycemic drugs; I27.20 Pulmonary hypertension, unspecified; I08.3 Combined rheumatic disorders of mitral, aortic and tricuspid valves; Z86.718 Personal history of other venous thrombosis and embolism; I25.10 Atherosclerotic heart disease of native coronary artery without angina pectoris; K21.9 Gastro-esophageal reflux disease without esophagitis; Z87.891 Personal history of nicotine dependence; S72.001D Fracture of unspecified part of neck of right femur, subsequent encounter for closed fracture with routine healing; E78.5 Hyperlipidemia, unspecified
CPT/HCPCS: 36415; 71045; 71275; 80048; 82962; 83735; 83880; 84484; 85025; 85379; 85610; 85730; 93005; 93306; 97110; 97161; 97166; 99285; A9270; J1938; J2270; J7030; Q9967

== ENCOUNTER 2024-08-20 15:34 | Outpatient (CLI) | payer MEDICARE, BC, SELFPAY | END 2024-08-20 15:35 | disposition home or self-care (01) | LOC: AMB 08-24 14:35 | PROVIDERS: PCP Family Medicine; Visit Provider Family Medicine | DX: I21.4 Non-ST elevation (NSTEMI) myocardial infarction (principal) | CPT/HCPCS: A0425; A0427 ==

== ENCOUNTER 2024-12-10 09:26 | Emergency (ER) | payer MEDICARE, BC, SELFPAY ==
--- OUTSIDE RECORDS SUMMARY | 2024-11-16 13:15 | XMS_ITS | Encounter Summary ---
Author Organization [facility] Address [address] [place] [id number] Care Team Providers Care Mobile Home Technician Name Role Phone Elsewhere, Pcp Primary Care Provider Unavailabl e Reason for Visit * Appointment Request (Routine) - Authorized Specialty Diagnoses / Procedures Referred By Fidelina hernandez Referred To Contact Hematology Referral ID Status Reason Start Date Expiration Date V isits Requested Visits Authorized [id number] Authorized 10/27/2024 01/27/2026 1 1 Encounter Details Date Type Department Care Team (Latest Contact Info) Description 11/16/2024 1:15 PM CDT Clinical Communication Virtual Review in [place], [place] [address] [place] [address] Social History Tobacco Use Types Packs/Day Years Used Date Smoking Tobacco: Former Cigarettes 1 17 0 10/21/1950 - 10/31/1967 Smokeless Tobacco: Never Alcohol Use Standard Drinks/Week Comments Yes 1 (1 standard drink = 0.6 oz pur e alcohol) rarely [facility] Utilities Answer Date Recorded In the past 12 months has e electric, gas, oil, or water company threatened to shut off services in your home? No 08/20/2024 Humiliation, Afraid, Rape, and Kick questionnair e Answer Date Recorded Within the last year, have y ou been afraid of your partner or ex-partner? No 08/20/2024 Within the last year, have y ou been humiliated or emotionally abused in other ways by your partner or ex-partner? No Within the last year, have y ou been kicked, hit, slapped, or otherwise physically hurt by your partner or ex-partner? No 08/20/2024 Within the last year, have y ou been raped or forced to have any kind of sexual activity by your partner or ex-partner? No 08/20/2024 Hunger Vital Sign Answer Date Recorded Within the past 12 months, y ou worried that your food would run out before you got the money to buy more. Never true 08/21/19 Within the past 12 months, t he food you bought just didn't last and you didn't have money to get more. Never true 08/20/2024 PRAPARE - Transportation Answer Date Re corded In the past 12 months, has l ack of transportation kept you from medical appointments or from getting medications? No 09/2024 In the past 12 months, has l ack of transportation kept you from meetings, work, or from getting things needed for daily living? No 08/20/2024 Housing Stability Answer Date Recorded What is your living situation today? I have a [employer] place to live 08/21/2024 Education Answer Date Recorded What is the highest level of school you have completed or the highest degree you have received? 12th grade 12/31/2021 Sex and Gender Information Value Date Recorded Sex Assigned at Male 12/31/2021 3:41 PM CDT Legal Sex Male 8:35 AM [employer] Gender Identity Male 12/09/2017 1:17 PM CDT Sexual Orientation Straight 12/09/2017 1: 17 PM CDT documented as of this encounter Plan of Treatment Upcoming Encounters Date Type Department Care Team (Latest Contact Info) Description 02/20/2025 6:40 AM CDT Appointment Department of Laboratory Medicine and Pathology, [facility], in [place], [place] [address] [place] [phone] Gt Ricks MPAS, P.A.-C., M.S. [address] [place] [phone] 02/20/2025 7:30 AM CDT Appointment Department of Cardiovascular Diseases in [place], [place] [address] [place] [phone] Gt Ricks MPAS, P.A.-C., M.S. [address] [place] [address] 02/20/2025 9:15 AM CDT Appointment Department of Radiology, [facility], in [place], [place] [address] [place] [address] Gt Ricks MPAS, P.A.-C., M.S. [address] [place] [phone] 02/20/2025 9:40 AM CDT Ancillary Procedure Department of Cardiovascular Medicine in [place], [place] [address] [place] [address] Gt Ricks MPAS, P.A.-C., M.S. [address] [place] [phone] 02/20/2025 2:00 PM CDT Office Visit Department of Cardiovascular Medicine in [place], [place] [address] [place] [address] Gt Ricks MPAS, P.A.-C., M.S. [address] [place] [phone] documented as of this encounter Visit Diagnoses Not on filedocumented in this encounter Care Teams Mobile Home Technician Relationship Specialty Start Date End Date Elsewhere, Pcp PCP - General Family Medicine 01/10/21 documented as of this encounter
--- OUTSIDE RECORDS SUMMARY | 2024-11-21 13:34 | XMS_ITS | Encounter Summary ---
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 I have a [facility] place to live 08/21/2024 Education Answer Date Recorded What is the highest level of school you have completed or the highest degree you have received? 12th grade 12/31/2021 Sex and Gender Information Value Date Recorded Sex Assigned at Male 12/31/2021 3:41 PM CDT Legal Sex Male 8:35 AM [employer] TE[employer] Gender Identity Male 12/09/2017 1:17 PM CDT Sexual Orientation Straight 12/09/2017 1: 17 PM CDT documented as of this encounter Medications at Time of Discharge Accu-Chek Guide Glucose Meter misc See Admin Instructions. 10/30/2021 Accu-Chek Softclix Lancets lancets daily. for testing 10/30/2021 amoxicillin (AmoxiL) 500 mg capsule Take 2,000 mg by mouth as directed. Take 2,000 mg by mouth. 1 hour prior to dental work 09/01/2024 apixaban (Eliquis) 2.5 mg tablet Take 2.5 mg by mouth 2 (two) times a day. ascorbic acid, vitamin C, (VITAMIN C) 500 mg tablet Take 1 tablet by mouth daily. 10/01/2011 atorvastatin (LIPITOR) 20 mg tablet Take 20 mg by mouth at bedtime. 06/08/2020 blood sugar diagnostic (Truetrack Test) strips TEST 1 TIME PER DAY 09/13/2021 carvediloL (COREG) 25 mg tablet Take 25 mg by mouth 2 (two) times a day with meals. 03/06/2020 DME CPAP DME Order empagliflozin (JARDIANCE) 25 mg tablet Take 25 mg by mouth daily before morning meal. 06/15/2022 esomeprazole (NexIUM) [address] capsule Take 40 mg by mouth daily before morning meal. famotidine (Pepcid) 20 mg tablet Take 1 tablet (20 mg total) by mouth at bedtime. 30 tablet 11 09/01/2024 fluticasone propionate (FLONASE) 50 mcg/actuation nasal spray Administer 2 sprays into nostril(s) as needed. 03/08/2021 furosemide (Lasix) 20 mg tabletIndication s:peripheral edema due to chronic heart failure Take 1 tablet (20 mg total) by mouth daily as needed (For weight gain of 2-3 lbs over the course of 24 hours, take until your weight returns to baseline and call your doctor) Indications: accumulation of fluid resulting from chronic heart failure. Monitor for worsening signs of shortness of breath and leg swelling 30 tablet 3 09/01/2024 nitroglycerin (Nitrostat) 0.4 mg SL tabletIndication s:angina Place 1 tablet (0.4 mg total) under the tongue every 5 (five) minutes as needed for chest pain Indications: angina, a type of chest pain. 25 tablet 11 09/01/2024 peg 400-propylene glycol (SYSTANE) 0.4-0.3 % ophthalmic solution Administer 1 drop into both eyes 2 (two) times a day as needed for dry eyes. sucralfate (Carafate) 1 gram tablet Take 1 tablet (1 g total) by mouth 4 (four) times a day before meals and bedtime. 120 tablet 11 09/01/2024 triamcinolone (KENALOG) 0.1 % cream Apply 1 application topically as needed. 09/18/2020 valsartan (Diovan) 80 mg tablet Take 80 mg by mouth daily. 02/21/2020 vitamin E 180 mg (400 Unit) capsule Take 400 Units by mouth daily. documented as of this encounter Plan of Treatment Upcoming Encounters Date Type Department Care Team (Latest Contact Info) Description 02/20/2025 6:40 AM CDT Appointment Department of Laboratory Medicine and Pathology, [facility] in [place], [place] [address] [place] [address] Gt Ricks MPAS, P.A.-C., M.S. [address] [place] [phone] 02/20/2025 7:30 AM CDT Appointment Department of Cardiovascular Diseases in [place], [place] [address] [place] [phone] Gt Ricks MPAS, P.A.-C., M.S. [address] [place] [phone] 02/20/2025 9:15 AM CDT Appointment Department of Radiology, [facility], in [place], [place] [address] [place] [address] Gt Ricks MPAS, P.A.-C., M.S. [address] [place] [phone] 02/20/2025 9:40 AM CDT Ancillary Procedure Department of Cardiovascular Medicine in [place], [place] [address] [place] [phone] Gt Ricks MPAS, P.A.-C., M.S. [address] [place] [phone] 02/20/2025 2:00 PM CDT Office Visit Department of Cardiovascular Medicine in [place], [place] [address] [place] [address] Gt Ricks MPAS, P.A.-C., M.S. 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) ASPARTATE AMINOTRANSFERASE (AST), S/P Routine 11/21/2024 1:51 PM CDT 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) ALKALINE PHOSPHATASE, S/P Routine 11/21/2024 1:51 PM CDT 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) LACTATE DEHYDROGENASE (LD), S Routine 11/21/2024 1:51 PM CDT 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) IMMUNOGLOBULIN G (IGG), S Routine 11/21/2024 1:51 PM CDT 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) CREATININE WITH EGFR, S/P Routine 11/21/2024 1:51 PM CDT 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) BILIRUBIN, TOT, S/P Routine 11/21/2024 1 :51 PM CDT 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 Results * (ABNORMAL) Morphology Eval (special smear) (11/21/2024 1:52 PM CDT) Neutrophilic Segs and Bands 18(L) 50 - 75 % 11/21/2024 4:22 PM CDT [facility] Lymphocytes 80(H) 18 - 42 % 11/21/2024 4:22 PM CDT [facility] Monocytes 2 2 - 11 % 11/21/2024 4:22 PM CDT [facility] Fragile Cells Moderate 11/21/2024 4:22 PM CDT [facility] Manual Absolute Neutrophil Count 5.26 1.56 - 6.45 x10(9)/L 11/21/2024 4:22 PM CDT [facility] Comment: ----ADDITIONAL INFORMATION---- The manual absolute neutrophil count is derived from a manual differential count and therefore is not exactly comparable to the automated absolute neutrophil count. Interpretation See Comment 4:22 PM CDT [facility] Comment: The blood smear findings are consistent with the previous diagnosis of chronic lymphocytic leukemia. Reviewed by: Eric 11/21/2024 4:22 PM CDT [facility] Blood 11/21/2024 1:52 PM CDT 11/21/2024 2:19 PM CDT Summer Mars APRN, C.N.P., M.S. LAB BLOOD ADD-O N Final Result [address] [address], [facility] 200 [place] [address] * (ABNORMAL) Reticulocyte Profile (11/21/2024 1:52 PM CDT) Reticulocytes, B 1.04 0.60 - 2.71 % 11/21/2024 2:26 PM CDT DTL Absolute Reticulocyte 41.0 30.4 - 110.9 x10(9)/L 11/21/2024 2:26 PM CDT DTL Immature Reticulocyte Fraction 8.6 2.3 - 13.4 % 11/21/2024 2:26 PM CDT DTL Reticulocyte Hemoglobin 32.9 30.0 - 37.6 pg 11/21/2024 2:26 PM CDT DTL Erythrocytes 3.94(L) 4.35 - 5.65 x10(12)/L 11/21/2024 2:26 PM CDT DTL Blood (Blood, Venous) 11/21/2024 1:52 PM CDT 11/21/2024 2:19 PM CDT Summer Mars APRN C.N.P., M.S. LAB BLOOD ADD-O N Final Result [facility] [address] [place] [address], [facility] DTL [facility] [address] [place] [address] * (ABNORMAL) CBC with Differential, Blood (11/21/2024 1:52 PM CDT) Hemoglobin 11.9(L) 13.2 - 16.6 g/dL 11/21/2024 2:26 PM CDT DTL Hematocrit 38.0(L) 38.3 - 48.6 % 11/21/2024 2:26 PM CDT DTL Erythrocytes 3.94(L) 4.35 - 5.65 x10(12)/L 11/21/2024 2:26 PM CDT DTL MCV 96.4 78.2 - 97.9 fL 11/21/2024 2:26 PM CDT DTL RBC Distrib Width 14.6(H) 11.8 - 14.5 % 11/21/2024 2:26 PM CDT DTL Platelet Count 176 135 - 317 x10(9)/L 11/21/2024 2:26 PM CDT DTL Leukocytes 29.2(H) 3.4 - 9.6 x10(9)/L 11/21/2024 2:26 PM CDT DTL Neutrophils See Comment 1.56 - 6.45 x10(9)/L 11/21/2024 4:22 PM CDT [facility] Comment:Auto-diff results no t valid. See manual differential. Blood (Blood, Venous) 11/21/2024 1:52 PM CDT 11/21/2024 2:19 PM CDT Ifeoma Castañeda APRNNSimonP., M.S. LAB BLOOD ADD-O N Final Result [facility] [address] [place] [address], [facility] DTL [facility] [address] [place] [address] DHPM [facility] [address] [place] [address] * [id number] 12MG V1396 (11/21/2024 1:51 PM CDT) [facility] [place] [address] A N 01 Collected DEFAULT 11/21/2024 1:52 [place] [address] A N 02 Collected DEFAULT 11/21/2024 1:52 [place] [address] A N 03 Collected DEFAULT 11/21/2024 1:52 [place] [address] A N 04 Collected DEFAULT 11/21/2024 1:52 [place] [address] A N 05 Collected DEFAULT 11/21/2024 1:52 [place] [address] A N 08 Collected DEFAULT 11/21/2024 1:[place] [address] A N 04 Collected DEFAULT 11/21/2024 1:51 PM CDT [facility]SS Blood (Blood, Venous) 11/21/2024 1:51 PM CDT 11/21/2024 1:52 PM CDT Narrative [facility] - 11/21/2024 1:52 PM CDT Specimen Information: Specimen ID: [id number] Specimen Type: Blood Specimen Collection Start Date: 11/21/2024 1:52 PM Specimen Received Date: 11/21/2024 1:52 PM Specimen ID: [id number] Specimen Type: Blood Specimen Collection Start Date: 11/21/2024 1:52 PM Specimen Received Date: 11/21/2024 1:52 PM Specimen ID: [id number] Specimen Type: Blood Specimen Collection Start Date: 11/21/2024 1:52 PM Specimen Received Date: 11/21/2024 1:52 PM Specimen ID: [id number] Specimen Type: Blood Specimen Collection Start Date: 11/21/2024 1:52 PM Specimen Received Date: 11/21/2024 1:52 PM Specimen ID: [id number] Specimen Type: Blood Specimen Collection Start Date: 11/21/2024 1:52 PM Specimen Received Date: 11/21/2024 1:52 PM Specimen ID: [id number] Specimen Type: Blood Specimen Collection Start Date: 11/21/2024 1:52 PM Specimen Received Date: 11/21/2024 1:52 PM Specimen ID: [id number] Specimen Type: Blood Specimen Collection Start Date: 11/21/2024 1:51 PM Specimen Received Date: 11/21/2024 1:51 PM Fidel Rose M.D. LAB BLOOD ADD-ON Final Result Performing Organization Address City/[facility]/ZIP Co de Phone Number [facility] [address] [place] [address], [facility] 200 [place] [address] * Immunoglobulin G (IgG) (11/21/2024 1:51 PM CDT) [facility] Immunoglobulin G (IgG), S 815 767 - 1590 mg/dL 11/21/2024 8:49 PM CDT [facility] Blood (Blood, Venous) 11/21/2024 1:51 PM CDT 11/21/2024 7:26 PM CDT Summer Mars APRN C.N.P., M.S. LAB BLOOD ADD-O N Final Result [facility] [address] [place] [address] [facility] [address] [place] [address] * LD (Lactate Dehydrogenase) (11/21/2024 1:51 PM CDT) Lactate Dehydrogenase (LD), S 193 122 - 222 U/L 11/21/2024 3:16 PM CDT DTL Blood (Blood, Venous) 11/21/2024 1:51 PM CDT 11/21/2024 2:31 PM CDT Aleksandr Castañeda APRN.N.Jake., M.S. LAB BLOOD NON A DD-ON Final Result Performing Organization Address [facility] Co de Phone Number [facility] [address] [place] [address] * Creatinine with Estimated GFR (11/21/2024 1:51 PM CDT) Creatinine 1.04 0.74 - 1.35 mg/dL 11/21/2024 3:16 PM CDT DTL Estimated GFR (eGFR) 69 >=60 mL/min/BSA 11/21/2024 3:16 PM CDT DTL Comment: Estimated GFR calculated using the 2020 CKD_EPI creatinine equation. Blood (Blood, Venous) 11/21/2024 1:51 PM CDT 11/21/2024 2:31 PM CDT Aleksandr Castañeda APRN.N.P., M.S. LAB BLOOD ADD-O N Final Result Performing Organization Address [facility] Co de Phone Number [facility] 200 [place] [address], [facility] 200 [place] [address] * Bilirubin, Total (11/21/2024 1:51 PM CDT) Bilirubin, Total, S 0.3 0.0 - 1.2 mg/dL 11/21/2024 3:16 PM CDT DTL Blood (Blood, Venous) 11/21/2024 1:51 PM CDT 11/21/2024 2:31 PM CDT Summer Mars APRN, C.N.P., M.S. LAB BLOOD ADD-O N Final Result Performing Organization Address City/[facility]/ZIP Co de Phone Number [facility] [address] [place] [address] * AST (Aspartate Aminotransferase) (11/21/2024 1:51 PM CDT) Aspartate Aminotransferase (AST), S 23 8 - 48 U/L 11/21/2024 3:16 PM CDT DTL Blood (Blood, Venous) 11/21/2024 1:51 PM CDT 11/21/2024 2:31 PM CDT Summer Mars APRN, C.N.P., M.S. LAB BLOOD ADD-O N Final Result Performing Organization Address City/[facility] Co de Phone Number [facility] 200 [place], [place] [address] [place] [address] 200 [place] [address] * (ABNORMAL) Alkaline Phosphatase (11/21/2024 1:51 PM CDT) Alkaline Phosphatase, S 147(H) 40 - 129 U/L 11/21/2024 4:29 PM CDT DTL Blood (Blood, Venous) 11/21/2024 1:51 PM CDT 11/21/2024 2:31 PM CDT Monique Castañeda APRN.Jake., M.S. 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
--- OUTSIDE RECORDS SUMMARY | 2024-11-21 16:00 | XMS_ITS | Encounter Summary ---
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 [address] [place] [phone] Phone: tel: fax: [facility] Referral ID Status Reason Start Date Expiration Date Visits Re quested Visits Authorized [id number] Closed 11/06/2023 05/07/2025 1 1 Encounter Details Date Type Department Care Team (Late st Contact Info) Description 11/21/2024 4:00 PM CDT Office Visit Division of Hematology in [place], [place] [address] [place] [phone] Summer Mars, WANDA, C.N.P., M.S. 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 I have a [facility] place to live 08/21/2024 Education Answer Date Recorded What is the highest level of school you have completed or the highest degree you have received? 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 Gender Identity Male 12/09/2017 1:17 PM CDT Sexual Orientation Straight 12/09/2017 1: 17 PM CDT documented as of this encounter Last Filed Vital Signs Vital Sign Reading Time Taken Comments Blood Pressure 151/55 11/21/2024 3:15 PM CDT Pulse 71 11/21/2024 3:15 PM CDT Temperature 35.7 C (96.2 F) 11/21/2024 3:15 PM CDT Respiratory Rate - - Oxygen Saturation - - Inhaled Oxygen Concentration - - Weight 73.4 kg (161 lb 13.1 oz) 11/21/2024 3:15 PM CDT Height 166 cm (5' 5.35) 11/21/2024 3:15 PM CDT Body Mass Index 26.64 11/21/2024 3:15 PM CDT documented in this encounter Progress Notes * Summer Mars, WANDA, C.N.P., M.S. 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 Garcia is a 89 y.o. 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 His flow cytometry revealed a population of lambda-restricted B lymphocytes that were negative for CD38 and ZAP-70. FISH showed noabnormalities, and he was felt to be Topete stage 0 and recommended to be observed. 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 Garcia returns today for follow-up with his daughter today. Unfortunately he had a fall and broke his hip in July requiring surgical intervention and then intermediate assistance and then two days after going home ended up needing an emergent TAVR. He is now on the road to recovery. Heis using a wheeled walker and feels as though his balance is still a bit off but he is getting better slowly. He otherwise denies any fevers, infections, new lymph node enlargement. He has had weightloss but this was secondary to his hospitalizations. He is now slowly gaining weight and appetite is back. ROS: Reviewed and negative unless otherwise noted in HPI. OBJECTIVE VITAL SIGNS: BP 151/55 (BP Location: Left arm, Patient Position: Sitting, Cuff Size: Regular) Pulse 71 Temp (!) 35.7 ??C (Tympanic) Ht 166 cm Wt 73.4 kg BMI 26.64 kg/m?? MEDICATIONS: Current Outpatient Medications: Accu-Chek Guide Glucose Meter mis, See Admin Instructions., Disp: , Rfl: Accu-Chek Softclix Lancets lancets, daily. for testing, Disp: , Rfl: amoxicillin (AmoxiL) 500 mg capsule, Take 2,000 mg by mouth as directed. Take 2,000 mg by mouth. 1 hour prior to dental work, Disp: , Rfl: apixaban (Eliquis) 2.5 mg tablet, Take 2.5 mg by mouth 2 (two) times a day., Disp: , Rfl: ascorbic acid, vitamin C, (VITAMIN C) 500 mg tablet, Take 1 tablet by mouth daily., Disp: , Rfl: aspirin [address] tablet, Take 1 tablet (81 mg total) by mouth daily., Disp: 30 tablet, Rfl: 0 atorvastatin (LIPITOR) 20 mg tablet, Take 20 mg by mouth at bedtime. , Disp: , Rfl: blood sugar diagnostic (Truetrack Test) strips, TEST 1 TIME PER DAY, Disp: , Rfl: carvediloL (COREG) 25 mg tablet, Take 25 mg by mouth 2 (two) times a day with meals. , Disp: , Rfl: DME CPAP, DME Order, Disp: , Rfl: empagliflozin (JARDIANCE) 25 mg tablet, Take 25 mg by mouth daily before morning meal., Disp: , Rfl: esomeprazole (NexIUM) [address] capsule, Take 40 mg by mouth daily before morning meal., Disp: , Rfl: famotidine (Pepcid) 20 mg tablet, Take 1 tablet (20 mg total) by mouth at bedtime. (Patient not taking: Reported on 11/16/2024), Disp: 30 tablet, Rfl: 11 fluticasone propionate (FLONASE) 50 mcg/actuation nasal spray, Administer 2 sprays into nostril(s) as needed., Disp: , Rfl: furosemide (Lasix) 20 mg tablet, Take 1 tablet (20 mg total) by mouth daily as needed (For weight gain of 2-3 lbs over the course of 24 hours, take until your weight returns to baseline and call yourdoctor) Indications: accumulation of fluid resulting from chronic heart failure. Monitor for worsening signs of shortness of breath and leg swelling, Disp: 30 tablet, Rfl: 3 nitroglycerin (Nitrostat) 0.4 mg SL tablet, Place 1 tablet (0.4 mg total) under the tongue every 5 (five) minutes as needed for chest pain Indications: angina, a type of chest pain., Disp: 25 tablet,Rfl: 11 peg 400-propylene glycol (SYSTANE) 0.4-0.3 % ophthalmic solution, Administer 1 drop into both eyes 2 (two) times a day as needed for dry eyes., Disp: , Rfl: spironolactone (ALDACTONE) 25 mg tablet, Take 0.5 tablets (12.5 mg total) by mouth daily., Disp: 45tablet, Rfl: 3 sucralfate (Carafate) 1 gram tablet, Take 1 tablet (1 g total) by mouth 4 (four) times a day beforemeals and bedtime., Disp: 120 tablet, Rfl: 11 triamcinolone (KENALOG) 0.1 % cream, Apply 1 application topically as needed. , Disp: , Rfl: valsartan (Diovan) 80 mg tablet, Take 80 mg by mouth daily., Disp: , Rfl: vitamin E 180 mg (400 Unit) capsule, Take 400 Units by mouth daily., Disp: , Rfl: PHYSICAL EXAM: ECO General: pleasant, nontoxic appearing, in no acute distress. Unable to get to exam table given mobility issues. Neuro: alert and oriented to person, place, and time; no focal deficits noted Eyes: anicteric, with extraocular movements intact Lungs: breathing comfortably on room air Lymph: no palpable lymphadenopathy DIAGNOSTICS: Most recent laboratory values include: Lab Results Component Value Date WBC 29.2 (H) 11/21/2024 HGB 11.9 (L) 11/21/2024 HCT 38.0 (L) 11/21/2024 MCV 96.4 11/21/2024 PLT 176 11/21/2024 , Lab Results Component Value Date NA 140 09/28/2024 CL 103 09/28/2024 CREATININE 1.04 11/21/2024 EGFR 69 11/21/2024 BUN 22 09/28/2024 ANIONGAP 10 09/28/2024 GLUCOSE 197 (H) 09/28/2024 CALCIUM 9.1 09/28/2024 LDH 193 11/21/2024 Lab Results Component Value Date ALT 14 08/20/2024 AST 23 11/21/2024 ALKPHOS 202 (H) 08/20/2024 BILITOT 0.3 11/21/2024 ASSESSMENT / PLAN #1 Chronic lymphocytic leukemia, normal FISH, asymptomatic, on observation #2 Hypogammaglobulinemia Mr. Garcia is a pleasant 89 y.o. male with FISH WNL CLL, originally diagnosed in 2006, who hasbeen observed without requiring treatment since that time. We reviewed all of today's findings together in detail. Hemoglobin has recovered quite well post two hospitalizations; it is almost exactly where it was a year ago when I last saw him and although itwas low at that time and still is, he is not having any symptoms of it and I will be interested to see if it continues to improve now post TAVR. WBC remains elevated but is stable overall. No indicati ons for progression requiring treatment; will continue to observe. With regards to his IgG; this level today is pending. I did let them know that if he does have further infections, we could potentially start him on IVIG if needed. We will watch this closely in the future. Based on the history, physical examination, and laboratory work, CLL continues to be stable, and there continues to be no indication for treatment. Based on that, we will continue to see him in Hematology once a year. I did let he and his daughter know that due to safety; this can always be moved and they should never attempt to come here just to see us if it is not safe for him. We can always [facility] closer to home and do a phone/video visit. It was a pleasure seeing Mr. Garcia again today. He knows how to get in touch with our team inbetween appointments if needed for CLL related concerns. PLAN: Observation of CLL FOLLOW UP: Return to clinic in 1 year or sooner if needed PATIENT EDUCATION Ready to learn, no apparent learning barriers were identified; learning preferences include listening. Explained diagnosis and treatment plan; patient expressed understanding of the content. BILLING I personally spent over half of a total of 25 minutes face to face with the patient in counseling and discussion and/or coordination of care as described above. Electronically signed by: Summer Mars APRN, C.N.P., M.S. 11/21/24 3:43 PM CDT documented in this encounter Plan of Treatment Upcoming Encounters Date Type Department Care Team (Latest Contact Info) Description 02/20/2025 6:40 AM CDT Appointment Department of Laboratory Medicine and Pathology, [facility] in [place], [place] [address] [place] [address] Gt Ricks MPAS, P.A.-C., M.S. [address] [place] [phone] 02/20/2025 7:30 AM CDT Appointment Department of Cardiovascular Diseases in [place], [place] [address] [place] [address] Gt Ricks MPAS, P.A.-C., M.S. [address] [place] [phone] 02/20/2025 9:15 AM CDT Appointment Department of Radiology, [facility], in [place], [place] [address] [place] [phone] Gt Ricks MPAS, P.A.-C., M.S. [address] [place] [phone] 02/20/2025 9:40 AM CDT Ancillary Procedure Department of Cardiovascular Medicine in [place], [place] [address] [place] [phone] Gt Ricks MPAS, P.A.-C., M.S. [address] [place] [phone] 02/20/2025 2:00 PM CDT Office Visit Department of Cardiovascular Medicine in [place], [place] [address] [place] [phone] Gt Ricks MPAS, P.A.-C., M.S. 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) Expected: 11/21/2025 (Approximate), Expires: 02/21/2026 CBC with Differential, Blood Lab Routine 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) Expected: 11/21/2025 (Approximate), Expires: 02/21/2026 Creatinine with Estimated GFR Lab Routine 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) Expected: 11/21/2025 (Approximate), Expires: 02/21/2026 LD (Lactate Dehydrogenase) Lab Routine 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) Expected: 11/21/2025 (Approximate), Expires: 02/21/2026 Immunoglobulin G (IgG) Lab Routine 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) Expected: 11/21/2025 (Approximate), Expires: 02/21/2026 Scheduled Referrals Name Type Priority Associated Diagnoses Orde r Schedule Hematology office visit (clinic) [facility]; CLL; General Outpatient Referral Routine 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
--- OUTSIDE RECORDS SUMMARY | 2024-12-10 09:27 | XMS_ITS ---
Author Name Auto Generated, Auto Generated Organization [facility] Functional Status No Results Mental Status No Results Allergies and Intolerances No Known Allergies Problems Active Concerns * Gastroesophageal reflux disease, unspecified whether esophagitis present* Code: [id number] * Start Date: ThuAug 11 23:28:00 EDT 2024 * End Date: * Text: * Hyperlipidemia, unspecified hyperlipidemia type* Code: [id number] * Start Date: ThuAug 11 23:28:00 EDT 2024 * End Date: * Text: * Pressure injury of left buttock, stage 2* Code: [id number] * Start Date: ThuAug 15 16:18:00 EDT 2024 * End Date: * Text: Reason for Referral
--- OUTSIDE RECORDS SUMMARY | 2024-12-10 09:29 | XMS_ITS | Clinical Summary ---
Author Organization [facility] Address [address] [place] [address] Care Team Providers Care Camera Engineer Name Role Phone Elsewhere, Pcp Primary Care Provider Unavailabl e Source Comments Patient records contain information from all sites at [facility]. For routine questions regarding patient records, call [phone] during business hours, M-F 8:00 AM - 5:00 PM Central Time. Record requests for emergency care only can be directed to [phone] at any time.[facility] Allergies Active Allergy Reactions Criticality Noted Date Comments Amlodipine Other (see comments),Edema (Reselect Reaction) Low 08/06/2020 Leg swelling on 5mg Leg swelling on 5mg Leg swelling on 5mg Metformin Diarrhea,GI intolerance High 07/03/2020 Medications ascorbic acid, vitamin C, (VITAMIN C) 500 mg tablet Take 1 tablet by mouth daily. 2 Active carvediloL (COREG) 25 mg tablet Take 25 mg by mouth 2 (two) times a day with meals. 0 Active atorvastatin (LIPITOR) 20 mg tablet Take 20 mg by mouth at bedtime. 1 Active triamcinolone (KENALOG) 0.1 % cream Apply 1 application topically as needed. 1 Active valsartan (Diovan) 80 mg tablet Take 80 mg by mouth daily. 0 Active DME CPAP DME Order Active spironolactone (ALDACTONE) 25 mg tablet Take 0.5 tablets (12.5 mg total) by mouth daily. 45 tablet 3 1 Active fluticasone propionate (FLONASE) 50 mcg/actuation nasal spray Administer 2 sprays into nostril(s) as needed. 1 Active blood sugar diagnostic (Truetrack Test) strips TEST 1 TIME PER DAY 2 Active Accu-Chek Guide Glucose Meter misc See Admin Instructions. 2 Active Accu-Chek Softclix Lancets lancets daily. for testing 2 [address] tablet Take 1 tablet (81 mg total) by mouth daily. 30 tablet 2 Active empagliflozin (JARDIANCE) 25 mg tablet Take 25 mg by mouth daily before morning meal. 3 Active peg 400-propylene glycol (SYSTANE) 0.4-0.3 % ophthalmic solution Administer 1 drop into both eyes 2 (two) times a day as needed for dry eyes. Active vitamin E 180 mg (400 Unit) capsule Take 400 Units by mouth daily. Active apixaban (Eliquis) 2.5 mg tablet Take 2.5 mg by mouth 2 (two) times a day. Active esomeprazole (NexIUM) [address] capsule Take 40 mg by mouth daily before morning meal. Active famotidine (Pepcid) 20 mg tablet Take 1 tablet (20 mg total) by mouth at bedtime. 30 tablet 11 5 Active Additional Information Patient not taking.Reported on 11/16/2024 nitroglycerin (Nitrostat) 0.4 mg SL tabletIndicatio ns:angina Place 1 tablet (0.4 mg total) under the tongue every 5 (five) minutes as needed for chest pain Indications: angina, a type of chest pain. 25 tablet 11 5 Active sucralfate (Carafate) 1 gram tablet Take 1 tablet (1 g total) by mouth 4 (four) times a day before meals and bedtime. 120 tablet 11 5 Active furosemide (Lasix) 20 mg tabletIndicatio ns:peripheral edema due to chronic heart failure Take 1 tablet (20 mg total) by mouth daily as needed (For weight gain of 2-3 lbs over the course of 24 hours, take until your weight returns to baseline and call your doctor) Indications: accumulation of fluid resulting from chronic heart failure. Monitor for worsening signs of shortness of breath and leg swelling 30 tablet 3 5 Active amoxicillin (AmoxiL) 500 mg capsule Take 2,000 mg by mouth as directed. Take 2,000 mg by mouth. 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 Stenosis Aortic Valve Acquired Discharge Disposition: Home or Self Care 09/28/2024 10:00 AM CDT - 09/28/2024 10:25 AM CDT Hospital Encounter Department of Radiology, [facility] in [address] [phone] Nayana Sweet, P.A.-C. Stenosis Aortic Valve Acquired Discharge Disposition: Home or Self Care 09/21/2024 Clinical Communication Department of Cardiac Rehabilitation in [address] [phone] Dell Robbins, CEP cardiac rehab referral follow up 09/20/2024 Clinical Communication Department of Cardiovascular Medicine in [place], [place] [address] [place] [address] Nayana Sweet P.A.-C. from Last 3 Months Immunizations Immunization Administration Dates Next Due Influenza Split 02/16/2012, 8,02/15/2007,2002 Influenza TIV (IM) [...] = 0.6 oz pur e alcohol) rarely C Utilities Answer Date Recorded In the past 12 months has th e electric, gas, oil, or water company [...] your living situation today? I have a [facility] place to live 08/21/2024 Education Answer Date Recorded What is the highest level of school you have completed or the highest degree you have received? 12th grade 12/31/2021 Sex and Gender Information Value Date Recorded Sex Assigned at Male 12/31/2021 3:41 PM CDT Legal Sex Male 8:35 AM DOUBLE [employer] Gender Identity Male 12/09/2017 1:17 PM CDT Sexual Orientation Straight 12/09/2017 1: 17 PM CDT Last Filed Vital Signs Vital Sign Reading Time Taken Comments Blood Pressure 151/55 11/21/2024 3:15 PM CDT Pulse 71 11/21/2024 3:15 PM CDT Temperature 35.7 C (96.2 F) 11/21/2024 3:15 PM CDT Respiratory Rate 18 09/01/2024 11:0 0 AM CDT Oxygen Saturation 96% 09/28/2024 12: 49 PM CDT Inhaled Oxygen Concentration - - Weight 73.4 kg (161 lb 13.1 oz) 11/21/2024 3:15 PM CDT Height 166 cm (5' 5.35) 11/21/2024 3:15 PM CDT Body Mass Index 26.64 11/21/2024 3:15 PM CDT Plan of Treatment Upcoming Encounters Date Type Department Care Team (Latest Contact Info) Description 02/20/2025 6:40 AM CDT Appointment Department of Laboratory Medicine and Pathology, [facility] in [place], [place] [address] [place] [phone] Gt Ricks MPAS, P.A.-C., M.S. [address] [place] [phone] 02/20/2025 7:30 AM CDT Appointment Department of Cardiovascular Diseases in [place], [place] [address] [place] [phone] Gt Ricks MPAS, P.A.-C., M.S. [address] [place] [phone] 02/20/2025 9:15 AM CDT Appointment Department of Radiology, [facility] in [place], [place] [address] [place] [phone] Gt Ricks MPAS, P.A.-C., M.S. [address] [place] [phone] 02/20/2025 9:40 AM CDT Ancillary Procedure Department of Cardiovascular Medicine in [place], [place] [address] [place] [phone] Gt Ricks MPAS, P.A.-C., M.S. [address] [place] [phone] 02/20/2025 2:00 PM CDT Office Visit Department of Cardiovascular Medicine in [place], [place] [address] [place] [phone] Gt Ricks, ROXANA, P.A.-C., M.S. [address] [place] [address] Health Maintenance Due Date Last Done Comments Diabetic Office Visit with Foot Exam 1935 Urine Albumin 1935 RSV vaccine - (32-36 weeks) or 60+ years (1 - 1-dose 75+ series) 11/14/2010 Hepatitis B Vaccines (2 of 3 - Risk 3-dose series) 11/07/2020 10/10/2020 Depression Screening (Annual PHQ-2) 05/18/2024 Fall Risk Screen (Annual) 05/18/2024 COVID-19 Vaccine (9 - Pfizer risk season) 2024 01/27/2024, 05/21/2023, 10/21/2022, Additional history exists Diabetic Eye Exam 08/11/2024 08/12/2023 Influenza Vaccine (#1) 2025 , 04/22/2023, 02/17/2022, Additional history exists Hemoglobin A1C 05/18/2025 2024, 08/16, 05/16/2024, Additional history exists Potassium Level 09/28/2025 09/28/2024, 08/16, 08/31/2024, Additional history exists Sodium Level 09/28/2025 09/28/2024, 08/16, 08/31/2024, Additional history exists Creatinine Level (Kidney Function Test) 11/21/2025 11/21/2024, 09/28/2024, 09/01/2024, Additional history exists DTaP,Tdap,and Td Vaccines (2 - Td or Tdap) 06/12/2030 06/12/2020, 04/17/2009, 12/25/1998 Zoster Vaccines Completed 10/10/2020, 06/12/2020 Pneumococcal vaccine (50+ years) Completed 12/30/2021, 01/29/2010, 05/18/2004, Additional history exists HPV Vaccines Aged Out No longer eligi ble based on patient's age to complete this topic IPV Vaccines Aged Out No longer eligi ble based on patient's age to complete this topic Medical Devices Implanted Type Area Radiation Monitor Device Identifier Shelf Expiration Date Model / Serial / Lot Stnt Synergy Xd De 2.50x32 - [id number] Implanted:Qt y: 1 on 01/10/2021 by Jeffery Arroyo M.D., Ph.D. at [facility] Cardiac Stent N/A: Coronary [employer] 04/30/2022 [id number] / / [id number] Description:Mid LAD Stnt Synergy Xd De 3.00x32 - [id number] Implanted:Qt y: 1 on 01/10/2021 by Jeffery Arroyo M.D., Ph.D. at [facility] Cardiac Stent N/A: Coronary [employer] 09/27/2022 [id number] / / [id number] Description:OM Stnt Synergy Xd De 3.50x12 - [id number] Implanted:Qt y: 1 on 01/10/2021 by Jeffery Arroyo M.D., Ph.D. at [facility] Cardiac Stent N/A: Coronary [employer] 08/21/2022 [id number] / / [id number] Description:pLCx Vlv Cricket 3 29 - [id number] - [id number] Implanted:Qt y: 1 on 08/30/2024 by Claus Pham M.D. at [facility] Cardiac Valve Prosthesis N/A: Heart [employer] 03/14/2027 [id number] / [id number] / Description:Aortic Valve Lens Tcn Mnfcl Dcb00 +22.5d - [id number] - [id number] Implanted:Qt y: 1 on 09/11/2022 by Rosina Manuel M.D. at [facility] Ocular Lens Left: Eye [employer] (Previously MERRY) 07/01/2025 [id number] / [id number] / Lens Tcn Mnfcl Dcb00 +23.0d - [id number] - [id number] Implanted:Qt y: 1 on 10/28/2022 by Santosh Toth M.D., Ph.D. 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) [id number] 12MG V1396 Routine 11/21/2024 1:51 PM CDT [...] Remission (HCC) BILIRUBIN, TOT, S/P Routine 11/21/2024 1:51 PM CDT 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) ASPARTATE AMINOTRANSFERASE (AST), S/P Routine 11/21/2024 1:51 PM CDT 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) ALKALINE PHOSPHATASE, S/P Routine 11/21/2024 1:51 PM CDT 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) ECG AMBULATORY REAL TIME CARDIAC MONITORING - [facility] Routine 09/30/2024 5:26 AM CDT Replacement Aortic Valve Tissue Abnormal Electrocardiogram Prosthesis Aortic Valve Block Atrioventricular First Degree Bundle Branch Block Bifascicular ECG Routine 09/28/2024 2:35 PM CDT Stenosis Aortic Valve Acquired (TTE) 2D LIMITED WITH COLOR AND DOPPLER Routine 09/28/2024 11:49 AM CDT Stenosis Aortic Valve Acquired DX CHEST AP OR PA AND LATERAL 2 VIEWS RAD - Routine (most inpatients and all outpatients) 09/28/2024 10:32 AM CDT Stenosis Aortic Valve Acquired BASIC METABOLIC PANEL, S/P Routine 09/28/2024 9:52 AM CDT Stenosis Aortic Valve Acquired NT-PRO B-TYPE NATRIURETIC PEPTIDE (BNP), S Routine 09/28/2024 9:52 AM CDT Stenosis Aortic Valve Acquired CBC WITH DIFFERENTIAL, B Routine 09/28/2024 9:52 AM CDT Stenosis Aortic Valve Acquired HEMOGLOBIN A1C, B Routine 08/26/2024 5:02 AM CDT from Last 3 Months or Most Recently Relevant to Health Maintenance Results * (ABNORMAL) Reticulocyte Profile (11/21/2024 1:52 PM CDT) Pathologist [facility] Reticulocytes, B 1.04 0.60 - 2.71 % [...] 1:52 PM CDT 11/21/2024 2:19 PM CDT Aleksandr Castañeda APRN.N.P., M.S. LAB BLOOD ADD-O N Final Result Performing Organization Address City/[facility]/ZIP Co de Phone Number [facility] [address] [place] [address], [facility] DTL [facility] [address] [place] [address] * (ABNORMAL) Morphology Eval (special smear) (11/21/2024 1:52 PM CDT) Pathologist [facility] Neutrophilic Segs and Bands 18(L) 50 - [...] Reviewed by: Eric 11/21/2024 4:22 PM CDT [facility] Blood 11/21/2024 1:52 PM CDT 11/21/2024 2:19 PM CDT Summer Mars APRN C.N.P., M.S. LAB BLOOD ADD-O N Final Result [facility] [address] [place] [address], [facility] [address] [place] [address] * (ABNORMAL) CBC with Differential, Blood (11/21/2024 1:52 PM CDT) Only the most recent of2 resultswithin the time period is included. Hemoglobin 11.9(L) 13.2 - 16.6 g/dL 11/21/2024 [...] - 6.45 x10(9)/L 11/21/2024 4:22 PM CDT [facility] Comment:Auto-diff results no t valid. See manual differential. Blood (Blood, Venous) 11/21/2024 1:52 PM CDT 11/21/2024 2:19 PM CDT us Summer Mars APRN, C.N.P., M.S. LAB BLOOD ADD-O N Final Result [facility] [address] [place] [address], [facility] DTL [facility] [address] [place] [address] [facility] [address] [place] [address] * [id number] 12MG V1396 (11/21/2024 1:51 PM CDT) [place] [address] A N 01 Collected DEFAULT 11/21/2024 1:52 [place] [address] A N 02 Collected DEFAULT 11/21/2024 1:52 [place] [address] A N 03 Collected DEFAULT 11/21/2024 1:52 [place] [address] A N 04 Collected DEFAULT 11/21/2024 1:52 [place] [address] A N 05 Collected DEFAULT 11/21/2024 1:52 [place] [address] A N 08 Collected DEFAULT 11/21/2024 1:[place] [address] A N 04 Collected DEFAULT 11/21/2024 1:51 PM CDT HSS Blood (Blood, Venous) 11/21/2024 1:51 PM CDT 11/21/2024 1:52 PM CDT [facility] - 11/21/2024 1:52 PM CDT Specimen Information: Specimen ID: [id number] Specimen Type: Blood Specimen Collection Start Date: 11/21/2024 1:52 PM Specimen Received Date: 11/21/2024 1:52 PM Specimen ID: [id number] Specimen Type: Blood Specimen Collection Start Date: 11/21/2024 1:52 PM Specimen Received Date: 11/21/2024 1:52 PM Specimen ID: [id number] Specimen Type: Blood Specimen Collection Start Date: 11/21/2024 1:52 PM Specimen Received Date: 11/21/2024 1:52 PM Specimen ID: [id number] Specimen Type: Blood Specimen Collection Start Date: 11/21/2024 1:52 PM Specimen Received Date: 11/21/2024 1:52 PM Specimen ID: [id number] Specimen Type: Blood Specimen Collection Start Date: 11/21/2024 1:52 PM Specimen Received Date: 11/21/2024 1:52 PM Specimen ID: [id number] Specimen Type: Blood Specimen Collection Start Date: 11/21/2024 1:52 PM Specimen Received Date: 11/21/2024 1:52 PM Specimen ID: [id number] Specimen Type: Blood Specimen Collection Start Date: 11/21/2024 1:51 PM Specimen Received Date: 11/21/2024 1:51 PM Fidel Rose M.D. LAB BLOOD ADD-ON Final Result Performing Organization Address [facility] Co de Phone Number [facility] [address] [facility] 200 [place] [address] * AST (Aspartate Aminotransferase) (11/21/2024 1:51 PM CDT) Pathologist [facility] Aspartate Aminotransferase (AST), S 23 8 - 48 U/L 11/21/2024 3:16 PM CDT DTL Blood (Blood, Venous) 11/21/2024 1:51 PM CDT 11/21/2024 2:31 PM CDT Aleksandr Castañeda APRN.N.P., M.S. LAB BLOOD ADD-O N Final Result Performing Organization Address [facility] de Phone Number [facility] [address] [facility] 200 [place] [address] * (ABNORMAL) Alkaline Phosphatase (11/21/2024 1:51 PM CDT) Pathologist [facility] Alkaline Phosphatase, S 147(H) 40 - 129 U/L 11/21/2024 4:29 PM CDT DTL Blood (Blood, Venous) 11/21/2024 1:51 PM CDT 11/21/2024 2:31 PM CDT Aleksandr Castañeda APRN.N.P., M.S. LAB BLOOD ADD-O N Final Result Performing Organization Address [facility]/ZIP Co de Phone Number [facility] 200 [place] [address], [facility] 200 [place] [address] * LD (Lactate Dehydrogenase) (11/21/2024 1:51 PM CDT) Lactate Dehydrogenase (LD), S 193 122 - 222 U/L 11/21/2024 3:16 PM CDT [facility] Blood (Blood, Venous) 11/21/2024 1:51 PM CDT 11/21/2024 2:31 PM CDT Ifeoma Castañeda APRNNCarlyn., M.S. LAB BLOOD NON A DD-ON Final Result [facility] 200 [place] [address], [facility] 200 [place] [address] * Immunoglobulin G (IgG) (11/21/2024 1:51 PM CDT) Pathologist [facility] Immunoglobulin G (IgG), S 815 767 - 1590 mg/dL 11/21/2024 8:49 PM CDT [facility] Blood (Blood, Venous) 11/21/2024 1:51 PM CDT 11/21/2024 7:26 PM CDT Aleksandr Castañeda APRN.N.P., M.S. LAB BLOOD ADD-O N Final Result [facility] [address] [place] [address] [facility] [address] [place] [address] * Creatinine with Estimated GFR (11/21/2024 1:51 PM CDT) Creatinine 1.04 0.74 - 1.35 mg/dL 11/21/2024 3:16 PM CDT [facility] Estimated GFR (eGFR) 69 >=60 mL/min/BSA 11/21/2024 3:16 PM CDT DT Comment: Estimated GFR calculated using the 2020 CKD_EPI creatinine equation. Blood (Blood, Venous) 11/21/2024 1:51 PM CDT 11/21/2024 2:31 PM CDT Aleksandr Castañeda APRN.N.Jake., M.S. LAB BLOOD ADD-O N Final Result Performing Organization Address [facility] Co de Phone Number [facility] 200 [place] [address] * Bilirubin, Total (11/21/2024 1:51 PM CDT) Bilirubin, Total, S 0.3 0.0 - 1.2 mg/dL 11/21/2024 3:16 PM CDT DTL Blood (Blood, Venous) 11/21/2024 1:51 PM CDT 11/21/2024 2:31 PM CDT Aleksandr Castañeda APRN.N.P., M.S. LAB BLOOD ADD-O N Final Result Performing Organization Address [facility] de Phone Number [facility] [address] [place] [address] * ECG AMBULATORY REAL TIME CARDIAC MONITORING - [facility] (09/30/2024 5:26 AM CDT) Min Heart Rate 48 bpm INFOB IONIC MOME Max Heart Rate 113 bpm INFOB IONIC MOME Mean Heart Rate 72 bpm INFOBIONIC MOME VE Total Beats 27,982 count INFOB IONIC MOME VE Percent Beats <1% percent INFOBIONIC MOME SVE Total Beats 35758 count INFOBIONIC MOME SVE Percent Beats <1% percent INFOBIONIC MOME Holter Pauses 0 count INFOBI ONIC MOME AF Count 1 count INFOBIONIC MOME AF Duration 1 hr 11 min duration INFOBIONIC MOME AF Tullos 0.18% percent INFOBIONIC MOME Longest AF Duration 1 hr 11 min duration INFOBIONIC MOME VT Runs 13 count INFOBIONIC MOME SVT Runs 7 count INFOBIONIC MOME Symptom Count 1 count INFOBI ONIC MOME 09/01/2024 7:58 AM CDT Narrative INFOBIONIC MOME - 10/01/2024 2:38 PM CDT 1. The patient was monitored from 09/01/2024 to 09/30/2024 with a total monitoring time of 26 days 19 hr 34 min. The baseline rhythm was sinus with a first-degree AV delay and a right bundle-branch block. There was one episode of atrial fibrillation observed. Intermittent episodes of a varying ventricular conduction were seen. The heart rate varied from 48 bpm (sinus) to 134 bpm (AF). The average heart rate was 72 bpm. There was an AF burden of 0.18%. The total time in AF was 1 hr 11 min. 2. There were 27,982 PVCs and/or aberrantly conducted complexes seen singly, paired, and in a bigeminal pattern with a PVC burden of <1%. There were 13 ventricular tachycardia events observed, at times with fusion with the longest being 17 beats. The maximum rate of VT was 192 bpm. One 3 beat run of accelerated idioventricular rhythm with a heart rate of 93 bpm was noted. 3. There were 15,916 PACs seen singly with a PAC burden of <1%. There were 7 runs of supraventricular tachycardia observed. The longest run of SVT was 17 beats. The maximum rate of SVT was 133 bpm. 4. The patient reported 1 symptomatic event of other. During this event, the rhythm was sinus with a first-degree AV delay and a right bundle-branch block with a heart rate of 65 bpm. At or around this time, there was no ectopy noted. Gasoline Plant Operator: KIA Rosenthal Procedure Note Leandro Gomez M.D. - 10/01/2024 1. The patient was monitored from 09/01/2024 to 09/30/2024 with a totalmonitoring time of 26 days 19 hr 34 min. The baseline rhythm was sinuswith a first-degree AV delay and a right bundle-branch block. There wasone episode of atrial fibrillation observed. Intermittent episodes of a varying ventricular conduction wereseen. The heart rate varied from 48 bpm (sinus) to 134 bpm (AF). Theaverage heart rate was 72 bpm. There was an AF burden of 0.18%. The totaltime in AF was 1 hr 11 min. 2. There were 27,982 PVCs and/or aberrantly conducted complexes seensingly, paired, and in a bigeminal pattern with a PVC burden of <1%. Therewere 13 ventricular tachycardia events observed, at times with fusion withthe longest being 17 beats. The maximum rate of VT was 192 bpm. One 3 beat run of acceleratedidioventricular rhythm with a heart rate of 93 bpm was noted. 3. There were 15,916 PACs seen singly with a PAC burden of <1%. There were7 runs of supraventricular tachycardia observed. The longest run of SVTwas 17 beats. The maximum rate of SVT was 133 bpm. 4. The patient reported 1 symptomatic event of other. During this event,the rhythm was sinus with a first-degree AV delay and a rightbundle-branch block with a heart rate of 65 bpm. At or around this time,there was no ectopy noted. Gasoline Plant Operator: KIA Rosenthal us Brayden Bansal P.A.-C. CV CARDIAC SERVICES PROCEDUR ES Final Result INFOBIONIC MOME NA * ECG 12 Lead (09/28/2024 2:35 PM CDT) Ventricular Rate ECG/Min 76 BPM MUSE LA Interval 198 ms MUSE QRSD Interval 108 ms MUSE QT Interval 404 ms MUSE QTC Interval 454 ms MUSE P [place] 31 degrees MUSE R [place] -50 degrees MUSE T Wave [place] 83 degrees MUSE 09/28/2024 2:35 PM CDT 10/05/2024 7:50 AM CDT Impressions MUSE - 10/05/2024 7:50 AM CDT Sinus rhythm Left anterior fascicular block Low anterior forces Nonspecific T wave abnormality When compared with ECG of 01-Sep-2024 08:21, Significant changes have occurred Reviewed by KIA Munguia Narrative Procedure Note Nick Fofana M.D. - 10/05/2024 IMPRESSION: Sinus rhythm Left anterior fascicular block Low anterior forces Nonspecific T wave abnormality When compared with ECG of 01-Sep-2024 08:21, Significant changes have occurred Reviewed by KIA Munguia us Nayana Sweet P.A.-C. ECG ORDERABLES Edited R esult - Final MUSE NA * (TTE) 2D LIMITED WITH COLOR AND DOPPLER (09/28/2024 11:49 AM CDT) Ejection Fraction 49 MC CV EIMS LV Mass Index 163 MC CV EIMS LV End-Diastolic Diameter 60 MC CV EIMS LV End-Systolic Diameter 45 MC CV EIMS LV End-Diastolic Volume 222 MC CV EIMS LV End-Systolic Volume 114 MC CV EIMS MV E Velocity 0.6 MC CV EIMS MV A Velocity 0.9 MC CV EIMS MV E/A 0.67 MC CV EIMS MV e' Velocity Medial 0.03 MC CV EIMS MV e' Velocity Lateral 0.04 MC CV EIMS MV E/e' Medial 20 MC CV EIMS MV E/e' Lateral 15 MC CV EIMS Left ventricular stroke volume index 70 MC CV EIMS Cardiac Output 8.92 MC CV EIMS Cardiac Index 4.9 MC CV EIMS LV Interventricular Septal Wall Thickness 12 MC CV EIMS LV Posterior Wall Thickness 11 MC CV EIMS LV Relative Wall Thickness 37 MC CV EIMS TAPSE 19 MC CV EIMS Tricuspid Annular S 0.1 MC CV EIMS TR Vmax 2.5 MC CV EIMS Estimated RA Pressure (Echo RAP) 5 MC CV EIMS RV Systolic Pressure (with Echo RAP) 30 MC CV EIMS AV mean gradient 8 MC CV EIMS Aortic valve area 2.96 MC CV EIMS Aortic Valve Area Index 1.63 MC CV EIMS Aortic Valve Dimensionless Index 0.56 MC CV EIMS Aortic Valve Systolic Peak Velocity 1.8 MC CV EIMS Anatomical Region Laterality Modality Other 09/28/2024 10:3 4 AM CDT Impressions 09/28/2024 2:24 PM CDT Last full echocardiogram performed 08/22/2024. Echocardiogram performed per dismissal echo protocol. LEFT VENTRICLE:Moderately enlarged left ventricular chamber size. Abnormal left ventricular geometry with eccentric left ventricular hypertrophy. Calculated 2-D biplane volumetric left ventricular ejection fraction of 49%. Generalized left ventricular hypokinesis more pronounced in the inferior wall. Grade 1a/3 left ventricular diastolic dysfunction, consistent with mildly elevated left ventricular filling pressure. RIGHT VENTRICLE:Normal right ventricular chamber size. Normal right ventricular systolic function. Estimated right ventricular systolic pressure 30 mmHg (right atrial pressure of 5 mmHg). ATRIA:Enlarged left atrial size by visual estimate. Enlarged right atrial size by visual estimate. 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 Aortic valve prosthesis systolic mean Doppler gradient 8 mmHg. Aortic valve prosthetic orifice area by Doppler: 2.96 cm2 No aortic valve prosthetic regurgitation. Trivial aortic valve periprosthetic regurgitation. Thickened mitral valve. Mild mitral valve regurgitation. Normal pulmonary valve. Mild pulmonary valve regurgitation. Normal tricuspid valve. Mild tricuspid valve regurgitation. OTHER ECHO FINDINGS:Normal inferior vena cava size with normal inspiratory collapse (>50%). No intracardiac mass or thrombus, but the left atrial appendage cannot be visualized adequately with transthoracic echo to exclude thrombus in this location. Tiny circumferential pericardial effusion. For the complete report, see the Order-Level Documents. Narrative 09/28/2024 2:24 PM CDT For the complete report, see the Order-Level Documents. Hemodynamics Heart Rate: 70 BPM Blood Pressure: 124 / 70 mmHg ECG: Sinus rhythm Final Impressions 1. 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 2. Aortic valve prosthesis systolic mean Doppler gradient 8 mmHg. 3. Trivial aortic valve periprosthetic regurgitation. 4. No aortic valve prosthetic regurgitation. 5. Moderately enlarged left ventricular chamber size, generalized hypokinesis (more pronounced in the inferior wall), calculated 2-D biplane volumetric ejection fraction of 49%. 6. Abnormal left ventricular geometry with eccentric left ventricular hypertrophy, grade 1 a/3 diastolic dysfunction, consistent with mildly elevated filling pressure. 7. Normal right ventricular chamber size, normal systolic function, estimated right ventricular systolic pressure 30 mmHg (right atrial pressure of 5 mmHg). 8. Tiny circumferential pericardial effusion with largest accumulation located anteriorly. Procedure Note Kofi Mahan M.D., M.P.H. - 09/28/2024 For the complete report, see the Order-Level Documents. Hemodynamics Heart Rate: 70 BPM Blood Pressure: 124 / 70 mmHg ECG: Sinus rhythm Final Impressions 1. Status post 29mm [place] 3 pericardial aortic valve prosthesison 30-AUG-2024. 2. Aortic valve prosthesis systolic mean Doppler gradient 8 mmHg. 3. Trivial aortic valve periprosthetic regurgitation. 4. No aortic valve prosthetic regurgitation. 5. Moderately enlarged left ventricular chamber size, generalizedhypokinesis (more pronounced in the inferior wall), calculated 2-D biplanevolumetric ejection fraction of 49%. 6. Abnormal left ventricular geometry with eccentric left ventricularhypertrophy, grade 1 a/3 diastolic dysfunction, consistent with mildlyelevated filling pressure. 7. Normal right ventricular chamber size, normal systolic function,estimated right ventricular systolic pressure 30 mmHg (right atrialpressure of 5 mmHg). 8. Tiny circumferential pericardial effusion with largest accumulationlocated anteriorly. Findings Last full echocardiogram performed 08/22/2024. Echocardiogram performedper dismissal echo protocol. LEFT VENTRICLE:Moderately enlarged left ventricular chamber size. Abnormalleft ventricular geometry with eccentric left ventricular hypertrophy.Calculated 2-D biplane volumetric left ventricular ejection fraction of49%. Generalized left ventricular hypokinesis more pronounced in theinferior wall. Grade 1a/3 left ventricular diastolic dysfunction,consistent with mildly elevated left ventricular filling pressure. RIGHT VENTRICLE:Normal right ventricular chamber size. Normal rightventricular systolic function. Estimated right ventricular systolicpressure 30 mmHg (right atrial pressure of 5 mmHg). ATRIA:Enlarged left atrial size by visual estimate. Enlarged right atrialsize by visual estimate. 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 Aortic valve prosthesis systolic mean Doppler gradient 8 mmHg.Aortic valve prosthetic orifice area by Doppler: 2.96 cm2 No aortic valveprosthetic regurgitation. Trivial aortic valve periprostheticregurgitation. Thickened mitral valve. Mild mitral valve regurgitation.Normal pulmonary valve. Mild pulmonary valve regurgitation. Normaltricuspid valve. Mild tricuspid valve regurgitation. OTHER ECHO FINDINGS:Normal inferior vena cava size with normal inspiratorycollapse (>50%). No intracardiac mass or thrombus, but the left atrialappendage cannot be visualized adequately with transthoracic echo toexclude thrombus in this location. Tiny circumferential pericardialeffusion. For the complete report, see the Order-Level Documents. Nayana Sweet P.A.-C. CV ECHO PROCEDURES Edite d Result - Final * DX Chest AP or PA and Lateral 2 Views (09/28/2024 10:32 AM CDT) Anatomical Region Laterality Modality Chest, Thoracic RST LOS, Tho racic ARZ LOS, Thoracic FLA LOS N/A Digital Radiography Impressions 09/28/2024 10:56 AM CDT Compared with 08/20/2024, the interstitial edema has decreased. Remainder unchanged. Low lung volumes. AVR. Stable mild prominence of the cardiac silhouette. Coronary stent. Aortic calcification. Surgical clips right upper quadrant and right axilla. Compression fracture mid thoracic spine. Narrative 09/28/2024 10:56 AM CDT EXAM: DX CHEST AP OR PA AND LATERAL 2 VIEWS Procedure Note Willam Ha M.D. - 09/28/2024 EXAM: DX CHEST AP OR PA AND LATERAL 2 VIEWS IMPRESSION: Compared with 08/20/2024, the interstitial edema has decreased. Remainderunchanged. Low lung volumes. AVR. Stable mild prominence of the cardiacsilhouette. Coronary stent. Aortic calcification. Surgical clips rightupper quadrant and right axilla. Compression fracture mid thoracic spine. [facility] Shadi Sweet P.A.-C. IMG DIAGNOSTIC IMAGING P ROCEDURES Final Result * (ABNORMAL) NT-Pro B-Type Natriuretic Peptide (BNP) (09/28/2024 9:52 AM CDT) Pathologist [facility] NT-Pro BNP 4124(H) <=540 pg/mL 09/28/2024 11:18 AM CDT DTL Comment: NT-proBNP values less than 300 [...] absence of renal failure. Blood (Blood, Venous) 09/28/2024 9:52 AM CDT 09/28/2024 10:37 AM CDT Nayana Sweet P.A.-C. LAB BLOOD ADD-ON Final R esult [facility] [address] [place] [address], [facility] [address] [place] [address] * (ABNORMAL) Basic Metabolic Panel (09/28/2024 9:52 AM CDT) Pathologist [facility] Potassium, S 4.9 3.6 - 5.2 mmol/L 09/28/2024 11:18 AM CDT DTL Sodium, S 140 135 - 145 mmol/L 09/28/2024 11:18 AM CDT DTL Chloride, S 103 98 - 107 mmol/L 09/28/2024 11:18 AM CDT DTL Bicarbonate, S 27 22 - 29 mmol/L 09/28/2024 11:18 AM CDT DTL Anion Gap 10 7 - 15 09/28/2024 11:18 AM CDT DTL BUN (Blood Urea Nitrogen), S 22 8 - 24 mg/dL 09/28/2024 11:18 AM CDT DTL Creatinine 0.96 0.74 - 1.35 mg/dL 09/28/2024 11:18 AM CDT DTL Estimated GFR (eGFR) 76 >=60 mL/min/BSA 09/28/2024 11:18 AM CDT DTL Comment: Estimated GFR calculated using the 2020 CKD_EPI creatinine equation. Calcium, Total, S 9.1 8.8 - 10.2 mg/dL 09/28/2024 11:18 AM CDT DTL Glucose, S 197(H) 70 - 140 mg/dL 09/28/2024 11:18 AM CDT DTL Blood (Blood, Venous) 09/28/2024 9:52 AM CDT 09/28/2024 10:37 AM CDT Nayana Sweet P.A.-C. LAB BLOOD ADD-ON Final R esult [facility] [address] [place] [address], [place] [facility] [address] [place] [address] from Last 3 Months Insurance MEDICARE [facility] Advance Directives For more information, please contact: [phone] * Full Code (Latest Code Status on File) Date Activated Date Inactivated Comments 08/20/2024 7:10 PM 09/01/2024 1:54 PM Question Answer Comments Full Code: Discussed * Full Code Date Activated Date Inactivated Comments 01/10/2021 12:05 PM 01/11/2021 2:12 PM Question Answer Comments Full Code: Discussed Care Teams Camera Engineer Relationship Specialty Start Date End Date Elsewhere, Pcp PCP - General Family Medicine 8/26/21
--- OUTSIDE RECORDS SUMMARY | 2024-12-10 09:29 | XMS_ITS | Clinical Summary ---
Author Organization [facility] Address [address] [place] [id number] Care Team Providers Care Drill Press Operator Name Role Phone Luiz Bullock MD Primary [...] EVERY DAY WITH FOOD 03/25/20 22 Active albuterol HFA (PRO-AIR; VENTOLIN; PROVENTIL) 90 mcg/actuation inhalerIndication s:Cough, unspecified type Inhale 1-2 Puffs by mouth every 4 hours if needed for Shortness Of Breath or Wheezing. 1 Each 1 09/25/19 24 Active inhalational spacing deviceIndications :Cough, unspecified type For home use. 1 Each 09/25/19 24 Active blood sugar diagnostic (Accu-Chek Guide test strips) stripIndications: Type 2 diabetes mellitus without complication, with long-term current use of insulin (HC) USE TO TEST 1 TIME DAILY 100 Each 3 11/09/19 24 Active CPAPIndications:O SA (obstructive sleep apnea) RESMED CPAP (E0601) machine for home use at pressure: 7 cmw, Choice of mask (A7030 or A7034) w/full face cushion (A7031) x1/mo, nasal cushion (A7032) x2/mo, or nasal pillows (A7033) x 2/mo; Length of Need: 99 months; Frequency of use: Daily 1 Each 03/10/20 24 Active fluticasone (50 mcg per [...] meals. 180 Tablet 3 05/16/20 24 Active ascorbic acid, vitamin C, 500 mg cap Take by mouth. 08/28/19 23 Active vitamin E, dl,tocopheryl acet, (Vitamin E, DL, Acetate,) 400 unit capsule Take 400 units by mouth once daily. Active amoxicillin 500 mg capsule Take 2,000 mg by mouth. 1 hour prior to procedure 09/02/19 25 Active furosemide 20 mg tablet Take 20 mg by mouth once daily if needed. 09/02/19 25 Active nitroglycerin 0.[address] 0.4 mg under the tongue every 5 minutes if needed. 09/02/19 25 Active artificial tears (peg 400 0.4%-propylene glycol 0.3%) ophthalmic Place 1 Drop into the eye(s) 2 times daily if needed. Active esomeprazole delayed release capsule 40 mgIndications:Chr onic GERD TAKE 1 CAPSULE BY MOUTH EVERY DAY 90 Capsule 3 09/17/19 25 Active empagliflozin (Jardiance) 25 mg tabletIndications :Type 2 diabetes mellitus without complication, with long-term current use of insulin (HC) Take 1 Tablet (25 mg) by mouth once daily. 90 Tablet 1 11/16/19 25 Active spironolactone 25 mg tabletIndications :Benign essential HTN Take 1 Tablet (25 mg) by mouth once daily in the morning. 90 Tablet 1 11/16/19 25 Active valsartan 80 mg tabletIndications :HTN (hypertension) Take 1 Tablet (80 mg) by mouth once daily. 90 Tablet 3 11/16/19 25 Active valsartan (DIOVAN) 320 mg tabletIndications :HTN (hypertension) Take 1 Tablet (320 mg) by mouth once daily. 90 Tablet 3 05/16/20 24 025 Discontin ued(Reord er (E-cancel not sent)) spironolactone (ALDACTONE) 25 mg tabletIndications :Benign essential HTN Take 1 Tablet (25 mg) by mouth once daily in the morning. 90 Tablet 1 07/13/19 25 025 Discontin ued(Reord er (E-cancel not sent)) famotidine 20 mg tablet Take 20 mg by mouth at bedtime. 09/02/19 25 025 Discontin ued(*Med complete/ Regimen complete/ Level of care change) sucralfate 1 gram tablet Take 1 g by mouth four times daily before meals and at bedtime. 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 06/01/2024 Atherosclerotic heart diseas e of [place] coronary artery with other forms of angina [...] Encounters Date Type Department Care Team Description 2024 2:05 PM CDT Office Visit [facility] [address] [place] [address] Luiz Bullock MD Diabetes 2024 Travel 11/04/2024 Refill [facility] [address] [place] [address] Luiz Bullock MD Refill Request (Jardiance) 09/14/2024 Refill [facility] [address] [place] [address] Luiz Bullock MD Refill Request (Esomeprazole Delayed Release Capsule) from Last 3 Months Immunizations Immunization Administration Dates Next Due AMB INFLUENZA IIV3 (AGE 65+ YRS) PF (Flu Clinic Only) 03/04/2019 AMB Influenza, IIV3 (Age >=3 years)(Flu Clinic Only) 03/09/2012,03/07/2008 AMB Influenza, IIV4 PF (=>6 mos Flulaval,Fluzone Fluarix)(Flu Clinic Only) 04/08/2016 Amb Influenza, Inact (High-d ose) (Flu Clinic Only) 02/09/2014 COVID-19 VACCINE SPIKEVAX (M ODERNA 50MCG/0.5ML) 12YO+ PFS 05/21/2023 COVID-19 vaccine (QM PowerBio NTech 30mcg/0.3mL) 12YO+ BIVALENT PF, MDV 10/21/2022 COVID-19 vaccine (Pfizer-Bio NTech 30mcg/0.3mL) 12YO+ CORBY-SUCROSE PF, MDV 08/22/2021 COVID-19 vaccine (QM PowerBio NTech 30mcg/0.3mL) PF, MDV 07/24/2020,07/03/2020 Hepatitis B [...] or isolated from those around you? 0 2024 Financial Resource Strain Answer Date R ecorded Difficulty of Paying Living Expenses 3 2024 Difficulty of Paying Living Expenses Not on file 2024 Food Insecurity Answer Date Recorded Do you worry your food will run out before you are able to buy more? 1 2024 Transportation Needs Answer Date Record ed Does lack of transportation keep you from medica l appointments? 1 2024 Does lack of transportation keep you from work, meetings or getting things that you need? 1 2024 Housing Stability Answer Date Recorded What is your housing situation today? 1 2024 Utilities Answer Date Recorded Do you have trouble paying f or utilities (for example, heat, electricity, water, phone)? 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 file N ot on file Not on file Obstetrics History Last Filed Vital Signs Vital Sign Reading Time Taken Comments Blood Pressure 129/66 2024 1:57 PM CDT Pulse 75 2024 1:57 PM CDT Temperature 36.5 C (97.7 F) 09/15/2023 11:54 AM CDT Respiratory Rate 16 04/02/2023 1:19 PM GEOSPATIAL DEVELOPER Oxygen Saturation 95% 2024 1:57 PM CDT Inhaled Oxygen Concentration - - Weight 73.3 kg (161 lb 9.6 oz) 2024 1:57 P M CDT Height 171 cm (5' 7.32) 03/10/2024 11:29 AM CDT Body Mass Index 25.07 03/10/2024 11:29 AM CDT Plan of Treatment Health Maintenance Due Date Last Done Comments RSV vaccine for adults or (1 - 1-dose 75+ series) 11/14/2010 Hepatitis B series for 19+ ( 2 of 3 - 19+ 3-dose series) 11/07/2020 10/10/2020 COVID-19 vaccine series (9 - Pfizer risk 2023- season) 2024 01/27/2024, 05/21/2023, 10/21/2022, Additional history exists Depression screening for age 12+ 01/13/2025 01/14/2024, 12/29/2022, 12/26/2022, Additional history exists Medicare Wellness for age 65+ 01/14/2025, 12/26/2022, 05/03/2020 Influenza Vaccine (#1) 2025 , 04/22/2023, 03/06/2020, Additional history exists BMI (ht and wt on same day) for age 18+ 03/10/2025 03/10/2024, 01/14/2024, 12/26/2022, Additional history exists Tetanus booster 06/12/2030 06/12/2020, 12/05/2008, 12/25/1998 Zoster (shingles) series for age 50+ Completed 10/10/2020, 06/12/2020 Pneumococcal series for age 50+ Completed 12/30/2021, 01/29/2010, 05/18/2004, Additional history exists Procedures Procedure Name Priority Date/Time Associated Diagnosis Comments HEMOGLOBIN Routine 2024 3:05 PM CDT Anemia of unknown etiology LIPID PANEL W REFLEX MEASURED LDL Routine 2024 3:05 PM CDT Type 2 diabetes mellitus without complication, with long-term current use of insulin (HC) IRON PLUS IRON BINDING CAP Routine 2024 3:05 PM CDT Anemia of unknown etiology FERRITIN Routine 2024 3:05 PM CDT Anemia of unknown etiology HEMOGLOBIN A1C MONITORING (POCT) Routine 2024 3:04 PM CDT Type 2 diabetes mellitus without complication, with long-term current use of insulin (HC) from Last 3 Months Results * LIPID PANEL W REFLEX MEASURED LDL (2024 3:05 PM CDT) Pathologist [facility] CHOLESTEROL, TOTAL 109 <200 mg/dL [facility] HDL CHOLESTEROL 44 > OR = 40 mg/dL [facility] TRIGLYCERIDES 74 <150 mg/dL [facility] LDL-CHOLESTEROL 50 mg/dL (calc) [facility] Comment: Reference range: <100 Desirable range <100 mg/dL for primary prevention; <70 mg/dL for patients with CHD or diabetic patients with > or = 2 CHD risk factors. LDL-C is now calculated using the Jack-Marlene calculation, which is a validated novel method providing better accuracy than the Friedewald equation in the estimation of LDL-C. Jack MANCERA et al. ATUL. 2013;310(19): 2641-0946 (http://education.Bleacher Report/faq/LVJ539) CHOL/HDLC RATIO 2.5 <5.0 (calc) [facility] NON HDL CHOLESTEROL 65 <130 mg/dL (calc) [facility] Comment: For patients with diabetes plus 1 major ASCVD risk factor, treating to a non-HDL-C goal of <100 mg/dL (LDL-C of <70 mg/dL) is considered a therapeutic option. Blood BLOOD SPECIMEN / Unknown 2024 3:05 PM CDT 2024 3:06 PM CDT us Luiz Bullock MD CHEMISTRY Final Result Performing Organization Address [facility]/ZIP Co de Phone Number Apse [facility] [address] [place] [phone], [facility] [address] [place] [address] * (ABNORMAL) IRON PLUS IRON BINDING CAP (2024 3:05 PM CDT) IRON, TOTAL 40(L) 50 - 180 mcg/dL [facility] IRON BINDING CAPACITY 245(L) 250 - 425 mcg/dL (calc) [facility] % SATURATION 16(L) 20 - 48 % (calc) [facility] Blood BLOOD SPECIMEN / Unknown 2024 3:05 PM CDT 2024 3:06 PM CDT us Luiz Bullock MD CHEMISTRY Final Result Performing Organization Address [facility] Co de Phone Number [facility]se [address] [address], [facility] [address] [place] [address] * (ABNORMAL) HEMOGLOBIN (2024 3:05 PM CDT) HEMOGLOBIN 11.3(L) 13.2 - 17.1 g/dL [facility] Blood BLOOD SPECIMEN / Unknown 2024 3:05 PM CDT 2024 3:06 PM CDT us Luiz Bullock MD HEMATOLOGY Final Result [facility] [address] [facility] [place] [address], [place] [phone] [facility] [address] [place] [address] * FERRITIN (2024 3:05 PM CDT) Pathologist [facility] FERRITIN 134 24 - 380 ng/mL [facility] Blood BLOOD SPECIMEN / Unknown 2024 3:05 PM CDT 2024 3:06 PM CDT us Luiz Bullock MD CHEMISTRY Final Result Performing Organization Address [facility] Co de Phone Number [facility]se [facility] [address] [place] [address], [place] [phone] [facility] [address] [facility] [place] [address] * (ABNORMAL) HEMOGLOBIN A1C MONITORING (POCT) (2024 3:04 PM CDT) Pathologist [facility] [place] POC HEMOGLOBIN A1C 6.7(H) <6.0 % OF TOTAL HGB [facility] Comment: Any point of care results exhibiting inconsistency with the patient's clinical status should be repeated using a different testing method. Blood BLOOD SPECIMEN / Unknown 2024 3:04 PM CDT 2024 3:04 PM CDT us Luiz Bullock MD CHEMISTRY Final Result Performing Organization Address City/[facility]/ZIP Co de Phone Number [facility] [address] [place] [address], [place] [phone] [facility] [address] [place] [address] from Last 3 Months Insurance MEDICARE PB ONLY [facility] FED EMP MEDICARE PART A HB ONLY MEDICARE PART B HB ONLY [facility] [address] [facility] [place] [address] Care Teams Drill Press Operator Relationship Specialty Start Date End Date Luiz Bullock MD [address] [place] [address] PCP - General Family Practice 07/03/20
--- OUTSIDE RECORDS SUMMARY | 2024-12-10 09:29 | XMS_ITS | Clinical Summary ---
Author Organization [facility] Address [address] [address] Phone Care Team Providers Care Pure Pak Machine Operator Name Role Phone Unavailable Primary Care Provider [...] Surgeon: Yair Jones MD; Location: [facility] INTERVENTIONAL RADIOLOGY COLONOSCOPY 03/23/2022 Colon/N/A [...] Comments Blood Pressure 162/49 03/25/2022 4:27 PM JEWEL OLIVING MACHINE OPERATOR Pulse 74 03/25/2022 4:27 PM JEWEL OLIVING MACHINE OPERATOR Temperature 36.6 C (97.8 F) 03/25/2022 4:27 PM JEWEL OLIVING MACHINE OPERATOR Respiratory Rate 20 03/25/2022 4:27 PM JEWEL OLIVING MACHINE OPERATOR Oxygen Saturation 95% 03/25/2022 4:27 PM JEWEL OLIVING MACHINE OPERATOR Inhaled Oxygen Concentration - - Weight 91.5 kg (201 lb 11.5 oz) 03/25/2022 6:00 AM JEWEL OLIVING MACHINE OPERATOR Height 174 cm (5' 8.5) 03/22/2022 [...] Vaccine ( - 2023-2 5 season) 2024 HPV Vaccine (Standing Order) Aged Out No longer eligible based on patient's age to complete this topic Hepatitis B Vaccine (Standin g Order) Aged Out No longer eligible b ased on patient's age to complete this topic Medical Devices Implanted Type Area Tail Worker Device Identifier Shelf Expiration Date Model / Serial / Lot Clip Hemostasis Instinct Plus Disp [id number] - [id number] Implanted:Qty: 2 on 03/23/2022 by Anjana Weeks, at [facility] N/A: Davi CHIRINOS 01/16/2025 [id number] / N/A / [id number] Insurance [employer] [facility] [employer] Address: [address] [address] MEDICARE PART A & B Advance Directives For more information, please contact: [phone] * Full Code (Latest Code Status on File) Date Activated Date Inactivated Comments 03/22/2022 2:44 PM 03/25/2022 9:43 PM
--- OUTSIDE RECORDS SUMMARY | 2024-12-10 09:29 | XMS_ITS | Encounter Summary ---
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 Never true 08/21/19 25 Within the past 12 months, t he [...] your living situation today? I have a [facility] place to live 08/21/2024 Education Answer Date Recorded What is the highest level of school you have completed or the highest degree you have received? 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 in [place], [place] [address] [place] [phone] Gt Ricks MPAS, PQuique.-Aleksandr., M.S. 200 [place] [phone] 02/20/2025 7:30 AM CDT Appointment Department of Cardiovascular Diseases in [place], [place] [address] [place] [phone] Gt Ricks MPAS, Jake.AdityaNestor., M.S. [address] [place] [phone] 02/20/2025 9:15 AM CDT Appointment Department of Radiology, [facility], in [place], [place] [address] [place] [phone] Gt Ricks MPAS, P.A.-C., M.S. [address] [place] [phone] 02/20/2025 9:40 AM CDT Ancillary Procedure Department of Cardiovascular Medicine in [place], [place] [address] [place] [phone] Gt Ricks MPAS, P.A.-C., M.S. [address] [place] [phone] 02/20/2025 2:00 PM CDT Office Visit Department of Cardiovascular Medicine in [place], [place] [address] [place] [phone] Gt Ricks MPAS, P.A.-C., M.S. [address] [place] [phone] documented as of this encounter Results * [id number] 12MG V1396 (11/21/2024 1:51 PM CDT) [facility] [place] [address] A N 01 Collected DEFAULT 11/21/2024 1:52 [place] [address] A N 02 Collected DEFAULT 11/21/2024 1:52 [place] [address] A N 03 Collected DEFAULT 11/21/2024 1:52 [place] [address] A N 04 Collected DEFAULT 11/21/2024 1:52 [place] [address] A N 05 Collected DEFAULT 11/21/2024 1:52 [place] [address] A N 08 Collected DEFAULT 11/21/2024 1:[place] [address] A N 04 Collected DEFAULT 11/21/2024 1:51 PM CDT HSS Blood (Blood, Venous) 11/21/2024 1:51 PM CDT 11/21/2024 1:52 PM CDT Narrative [facility] - 11/21/2024 1:52 PM CDT Specimen Information: Specimen ID: [id number] Specimen Type: Blood Specimen Collection Start Date: 11/21/2024 1:52 PM Specimen Received Date: 11/21/2024 1:52 PM Specimen ID: [id number] Specimen Type: Blood Specimen Collection Start Date: 11/21/2024 1:52 PM Specimen Received Date: 11/21/2024 1:52 PM Specimen ID: [id number] Specimen Type: Blood Specimen Collection Start Date: 11/21/2024 1:52 PM Specimen Received Date: 11/21/2024 1:52 PM Specimen ID: [id number] Specimen Type: Blood Specimen Collection Start Date: 11/21/2024 1:52 PM Specimen Received Date: 11/21/2024 1:52 PM Specimen ID: [id number] Specimen Type: Blood Specimen Collection Start Date: 11/21/2024 1:52 PM Specimen Received Date: 11/21/2024 1:52 PM Specimen ID: [id number] Specimen Type: Blood Specimen Collection Start Date: 11/21/2024 1:52 PM Specimen Received Date: 11/21/2024 1:52 PM Specimen ID: [id number] Specimen Type: Blood Specimen Collection Start Date: 11/21/2024 1:51 PM Specimen Received Date: 11/21/2024 1:51 PM Fidel Rose M.D. 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
--- OUTSIDE RECORDS SUMMARY | 2024-12-10 09:29 | XMS_ITS | Encounter Summary ---
Author Organization [facility] Address [address] [place] [address] Care Team Providers Care Aircraft Machinist Name Role Phone Elsewhere, Pcp Primary Care Provider Unavailabl e Encounter Details Date Type Department Care Team (Latest Contact Info) Description 08/20/2024 [facility]ake [facility] Social History Tobacco Use Types Packs/Day Years Used Date Smoking Tobacco: Former Cigarettes 1 17 0 10/21/1950 - 10/31/1967 Smokeless Tobacco: Never Alcohol Use Standard Drinks/Week Comments Yes 1 (1 standard drink = 0.6 oz pur e alcohol) rarely [facility] Utilities Answer Date Recorded In the past 12 months has e electric, gas, oil, or water [employer] threatened to shut off services in your [...] your living situation today? I have a [facility] place to live 08/21/2024 Education Answer Date Recorded What is the highest level of school you have completed or the highest degree you have received? 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 - 08/20/2024 1:59 PM CDT [facility]: ATC referral SUBJECTIVE Referral received from [facility] on 08/20/24, as part of hospital transfer request from [place], [place] (phone: [phone]). OBJECTIVE This patient was accepted for transfer prior to the assessment process. Spoke with patient's RN, Janiya. This is a 88 y.o. year old male from [address] [place], [place] [phone]. The patient was admitted to their facility on 08/19/2024. The physician is requesting transfer. Patient is alert and oriented, able to make their own decisions. The patient's nurse reports the following information: the patient was admitted with chest pains. He was previously admitted to the hospital a month ago following a fall and hip surgery; at that [facility] [place] [facility] and returned home 2 days ago. The patient is independent at baseline and lives with his daughter who has been providing support. In the hospital, the patient has been an assist of 1 with a walker. He does not require oxygen, wound care, IV antibiotics, or other special treatments. No behavioural or psychiatric concerns noted. No financial concerns reported. Patient has the following supports: Daughter. No discharge planning has been initiated by this facility per Janiya. The patient anticipates returning home at discharge. ASSESSMENT / PLAN It appears that minimal barriers to discharge planning have been identified as noted above. PLAN: I have discussed with Janiya that in the event the patient is transferred here the social cost of travel such as lodging, meals, and transport home are the personal responsibility of the patient and family. They have agreed to relay this information to the family. Jackie Batres., L.I.C.S.W. 08/20/2024 documented in this encounter Plan of Treatment Upcoming Encounters Date Type Department Care Team (Latest Contact Info) Description 02/20/2025 6:40 AM CDT Appointment Department of Laboratory Medicine and Pathology, [facility] in [place], [place] [address] [place] [address] Gt Ricks MPAS, P.A.-C., M.S. [address] [place] [phone] 02/20/2025 7:30 AM CDT Appointment Department of Cardiovascular Diseases in [place], [place] [address] [place] [phone] Gt Ricks MPAS, P.A.-C., M.S. [address] [place] [phone] 02/20/2025 9:15 AM CDT Appointment Department of Radiology, [facility], in [place], [place] [address] [place] [phone] Gt Ricks MPAS, P.A.-C., M.S. [address] [place] [phone] 02/20/2025 9:40 AM CDT Ancillary Procedure Department of Cardiovascular Medicine in [place], [place] [address] [place] [phone] Gt Ricks MPAS, P.A.-C., M.S. [address] [place] [phone] 02/20/2025 2:00 PM CDT Office Visit Department of Cardiovascular Medicine in [place], [place] [address] [place] [phone] Gt Ricks MPAS, P.A.-C., M.S. [address] [place] [phone] documented as of this encounter Visit Diagnoses Not on filedocumented in this encounter Care Teams Aircraft Machinist Relationship Specialty Start Date End Date Elsewhere, Pcp PCP - General Family Medicine 01/10/21 documented as of this encounter
[2024-12-10 09:30] VITALS: BP 122/71; PULSE 78; RESP 18; TEMP 37.2; O2SAT 95; BMI 25.0
--- NOTE | 2024-12-10 09:46 | CRLHL7_ITS ---
For Patients: As a result of the Cures Act, medical imaging exams and procedure reports are released immediately into your electronic medical record. You may view this report before your referring provider. If you have questions, please contact your health care provider. INDICATION: Sternal trauma. TECHNIQUE: CT chest without i.v. contrast. Coronal and sagittal reformats were obtained. COMPARISON: CTA of the chest from 08/19/2024. FINDINGS: Cardiovascular: Postop changes of aortic valve replacement are again noted. Atherosclerotic changes aortic arch and great vessel origins. Coronary artery calcifications. Left atrial enlargement. Mediastinum and johann: No mass or lymphadenopathy. Lungs: Peripheral/subpleural reticular opacities bilaterally, likely reflecting fibrosis/scarring. No focal lung lesions. Pleura and pericardium: Small pericardial effusion. Previously seen pleural effusions have resolved. Chest wall and axilla: Gynecomastia. Bones: T6 wedge compression fracture with moderately advanced height loss. Stable/chronic. No other fractures Upper abdomen: Several partially visualized prominent loops of bowel within the upper abdomen. Thick calcifications splenic artery. IMPRESSION: 1. No evidence of acute traumatic injury involving the sternum or other thoracic structures. There is a T6 wedge compression fracture with moderately advanced height loss which is stable/chronic. 2. Resolution of previously seen bilateral pleural effusions. Small pericardial effusion is unchanged. Otherwise stable chronic findings as above. Please note that all CT scans at this facility use dose modulation, iterative reconstruction, and/or weight-based dosing when appropriate to reduce radiation dose to as low as reasonably achievable. Dictated by Richard Quinn MD @ 12/10/2024 10:28:02 AM (Electronically Signed)
--- NOTE | 2024-12-10 09:47 | ED.GENADULT ---
HPI - General Adult General Chief complaint: Fall/Minor Trauma Stated complaint: Fell a few days ago Time Seen by Provider: 12/10/24 09:38 History of Present Illness HPI narrative: Patient is a 89-year-old gentleman who is on both aspirin and Eliquis who stumbled onto the handle of his walker approximately a week ago. He struck his sternum on the right side on the walker and has had palpable lump present which hurts when he coughs or takes a deep breath. He has otherwise had no other symptoms of chest pain shortness a breath orthopnea no PND no nausea no vomiting no fevers no chills. Patient is minimal bruising. Related Data Home Medications ?Medication ?Instructions ?Recorded ?Confirmed atorvastatin 20 mg tablet 20 mg PO HS 03/26/22 12/10/24 carvedilol 25 mg tablet 25 mg PO BID 03/26/22 12/10/24 apixaban 2.5 mg tablet (Eliquis) 2.5 mg PO BID 08/27/22 12/10/24 ascorbic acid (vitamin C) 500 mg 500 mg PO DAILY 08/27/22 12/10/24 tablet aspirin 81 mg chewable tablet 1 tab PO DAILY 08/27/22 12/10/24 empagliflozin 25 mg tablet 25 mg PO DAILY 08/27/22 12/10/24 (Jardiance) vitamin E mixed 400 unit capsule 400 unit PO DAILY 08/27/22 12/10/24 cetirizine 10 mg tablet 10 mg PO DAILY 09/21/23 09/14/24 esomeprazole magnesium 40 mg 40 mg PO DAILY 08/19/24 09/14/24 capsule,delayed release (Nexium) omeprazole 20 mg capsule,delayed 20 mg PO BID 12/10/24 12/10/24 release Previous Rx's ?Medication ?Instructions ?Recorded acetaminophen 500 mg capsule 500 mg PO Q6H PRN pain #100 caps 07/21/24 sennosides 8.6 mg tablet (Senna 17.2 mg (2 x 8.6 mg) PO BID PRN 07/21/24 Lax) constipation #100 tabs spironolactone 25 mg tablet 12.5 mg (1/2 x 25 mg) PO DAILY #30 07/22/24 tabs valsartan 80 mg tablet 160 mg (2 x 80 mg) PO HS #60 tabs 07/25/24 Allergies Allergy/AdvReac Type Severity Reaction Status Date / Time amlodipine Allergy Verified 09/14/24 14:29 metformin AdvReac Intermediate Diarrhea Verified 09/14/24 14:29 Review of Systems Status of ROS: Reports: 10 or more systems reviewed and unremarkable except as noted in History and below [facility] Medical History ROSA ISELA (obstructive sleep apnea) (04/17/20) ?G47.33 - Obstructive sleep apnea (adult) (pediatric) (ICD-10) 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) ?J84.9 - Interstitial pulmonary disease, unspecified (ICD-10) Interstitial lung disease (08/22/21) ?J84.9 - Interstitial pulmonary disease, unspecified (ICD-10) Hyperlipidemia (11/22/12) ?E78.5 - Hyperlipidemia, unspecified (ICD-10) Esophageal reflux (10/02/06) ?K21.9 - Gastro-esophageal reflux disease without esophagitis (ICD-10) 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) ?C91.10 - Chronic lymphocytic leukemia of B-cell type not having achieved remission (ICD-10) Anemia (12/07/18) ?D64.9 - Anemia, unspecified (ICD-10) Sickle cell disease (01/02/21) ?D57.1 - Sickle-cell disease without crisis (ICD-10) Irritable bowel syndrome with diarrhea (08/22/21) ?K58.0 - Irritable bowel syndrome with diarrhea (ICD-10) Hypertensive kidney disease with stage 3a chronic kidney disease (01/10/21) ?I12.9 - Hypertensive chronic kidney disease with stage 1 through stage 4 chronic kidney disease, or unspecified chronic kidney disease (ICD-10) ?N18.31 - Chronic kidney disease, stage 3a (ICD-10) Hemorrhagic shock (03/23/22) ?R57.8 - Other shock (ICD-10) Retinal hemorrhage, bilateral (01/02/21) ?H35.63 - Retinal hemorrhage, bilateral (ICD-10) Gynecomastia (08/06/20) ?N62 - Hypertrophy of breast (ICD-10) Dyspnea on exertion (01/02/21) ?R06.09 - Other forms of dyspnea (ICD-10) Chronic migraine with aura, not intractable, without status migrainosus (01/01/21) ?G43.E09 - Chronic migraine with aura, not intractable, without status migrainosus (ICD-10) BRBPR (bright red blood per rectum) (03/23/22) ?K62.5 - Hemorrhage of anus and rectum (ICD-10) Bilateral lower extremity edema (07/03/20) ?R60.0 - Localized edema (ICD-10) Benign positional vertigo (03/26/15) ?H81.10 - Benign paroxysmal vertigo, unspecified ear (ICD-10) Amaurosis fugax (12/31/20) ?G45.3 - Amaurosis fugax (ICD-10) Tricuspid regurgitation ?I07.1 - Rheumatic tricuspid insufficiency (ICD-10) Mitral regurgitation ?I34.0 - Nonrheumatic mitral (valve) insufficiency (ICD-10) Aortic regurgitation ?I35.1 - Nonrheumatic aortic (valve) insufficiency (ICD-10) Aortic stenosis ?I35.0 - Nonrheumatic aortic (valve) stenosis (ICD-10) Pulmonary hypertension ?I27.20 - Pulmonary hypertension, unspecified (ICD-10) Heart failure with reduced ejection fraction ?I50.20 - Unspecified systolic (congestive) heart failure (ICD-10) NSTEMI (non-ST elevated myocardial infarction) ?I21.4 - Non-ST elevation (NSTEMI) myocardial infarction (ICD-10) Weight loss, non-intentional ?R63.4 - Abnormal weight loss (ICD-10) Frailty syndrome in geriatric patient ?R54 - Age-related physical debility (ICD-10) GERD (gastroesophageal reflux disease) ?K21.9 - Gastro-esophageal reflux disease without esophagitis (ICD-10) Essential hypertension ?I10 - Essential (primary) hypertension (ICD-10) Dysphagia ?R13.10 - Dysphagia, unspecified (ICD-10) CAD (coronary artery disease) ?I25.10 - Atherosclerotic heart disease of [place] coronary artery without angina pectoris (ICD-10) Type 2 diabetes mellitus ?E11.9 - Type 2 diabetes mellitus without complications (ICD-10) Atrial fibrillation ?I48.91 - Unspecified atrial fibrillation (ICD-10) Pneumonia ?J18.9 - Pneumonia, unspecified organism (ICD-10) Elevated troponin ?R79.89 - Other specified abnormal findings of blood chemistry (ICD-10) COVID ?U07.1 - COVID-19 (ICD-10) Physical deconditioning ?R53.81 - Other malaise (ICD-10) Colitis ?K52.9 - Noninfective gastroenteritis and colitis, unspecified (ICD-10) CLL (chronic lymphocytic leukemia) ?C91.10 - Chronic lymphocytic leukemia of B-cell type not having achieved remission (ICD-10) Aortic stenosis, severe ?I35.0 - Nonrheumatic aortic (valve) stenosis (ICD-10) Diverticulosis ?K57.90 - Diverticulosis of intestine, part unspecified, without perforation or abscess without bleeding (ICD-10) Blood clot of artery under arm ?I74.2 - Embolism and thrombosis of arteries of the upper extremities (ICD-10) Diabetic retinopathy ?E11.319 - Type 2 diabetes mellitus with unspecified diabetic retinopathy without macular edema (ICD-10) Interstitial lung disease ?J84.9 - Interstitial pulmonary disease, unspecified (ICD-10) ROSA ISELA (obstructive sleep apnea) ?G47.33 - Obstructive sleep apnea (adult) (pediatric) (ICD-10) Hyperlipidemia ?E78.5 - Hyperlipidemia, unspecified (ICD-10) 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 - Dissection of other specified artery (ICD-10) Ileitis ?K52.9 - Noninfective gastroenteritis and colitis, unspecified (ICD-10) Surgical History History of open reduction and internal fixation (ORIF) procedure (07/19/24) ?Z98.890 - Other specified postprocedural states (ICD-10) Patella fracture ?S82.009A - Unspecified fracture of unspecified patella, initial encounter for closed fracture (ICD-10) History of atherectomy ?Z98.890 - Other specified postprocedural states (ICD-10) H/O colectomy ?Z90.49 - Acquired absence of other specified parts of digestive tract (ICD-10) History of laparoscopic cholecystectomy ?Z90.49 - Acquired absence of other specified parts of digestive tract (ICD-10) Family History Brother Coronary artery disease Heart disease Diabetes High blood pressure Mother Coronary artery disease Diabetes Social History Narrative: He lives at home with his daughter. Code status is full. He does not smoke. Former smoker. He does not drink alcohol. What is your current living situation?: I presently have a place to live Problems where you live: no known problems Problems where you live details: no known problems In the past 12 months, utilities in danger of being shut off: no In past 12 months, lack of transportation kept you from medical appts, meetings, work, or getting things needed for daily living: no In the past 12 mos, have been you worried that your food would run out before you had money to buy more?: never true In the past 12 mos, the food you bought just didn't last and you didn't have money to buy more?: never true Highest level of school completed/degree received: high school graduate Smoking Status: Former smoker What tobacco products do you use: cigarettes Smoking quit date/years: >15 years ago Do you use any of these nicotine containing products: None Second hand tobacco smoke exposure: Yes How often do you have a drink containing alcohol: never How often do you have six or more drinks on one occasion: Never AUDIT-C Alcohol total score: 0 Non-prescribed substance use: denies use Caffeine: Yes (Tea) How often does anyone, including family, friends and others, physically hurt you: never How often does anyone, including family, friends and others, insult or talk down to you: never How often does anyone, including family, friends and others, threaten you with harm: never How often does anyone, including family, friends and others, scream or curse at you: never service: Yes Exam Narrative: Exam Narrative: EXAM GENERAL: Patient appears comfortable and well. Elderly. EYES: No scleral icterus. LYMPH: No supraclavicular or cervical lymphadenopathy. SKIN: Visible skin seen during exam normal or with benign process only. EXT: No dependent lower extremity pedal edema. HEART: Regular rate and rhythm with no murmurs, rubs, or gallops. LUNGS: Clear to auscultation bilaterally with no crackles or wheezes. ABD: Soft, non tender, non distended. PSYCH: Good eye contact, speech is not pressured. Examination of the chest wall shows approximately 2 cm area of induration and swelling on the right side of the sternum mid chest. Const: Vital Signs, click to edit/add: Vital Signs - 24 hr 12/10/24 09:30 Temperature 98.9 F Pulse Rate [Pulse Oximeter] 78 Respiratory Rate 18 Blood Pressure [Ri ght Upper Arm] 122/71 Pulse Oximetry 95 Oxygen Delivery Me thod Room Air Course Course ED Course: Patient seen examined. CT of the chest ordered. Vital Signs Vital signs: Initial Vital Signs Temperature 98.9 F 12/10/24 09:30 Temperature Source Temporal Artery Scan 12/10/24 09:30 Pulse Rate 78 12/10/24 09:30 Respiratory Rate 18 12/10/24 09:30 Blood Pressure 122/71 12/10/24 09:30 Blood Pressure Mean 88 12/10/24 09:30 Blood Pressure Position Sitting 12/10/24 09:30 Pulse Oximetry 95 12/10/24 09:30 Oxygen Delivery Method Room Air 12/10/24 09:30 Vital Signs Temperature 98.9 F 12/10/24 09:30 Pulse Rate 78 12/10/24 09:30 Respiratory Rate 18 12/10/24 09:30 Blood Pressure 122/71 12/10/24 09:30 Pulse Oximetry 95 12/10/24 09:30 Oxygen Delivery Method Room Air 12/10/24 09:30 Temperature 98.9 F 12/10/24 09:30 Pulse Rate 78 12/10/24 09:30 Respiratory Rate 18 12/10/24 09:30 Blood Pressure 122/71 12/10/24 09:30 Pulse Oximetry 95 12/10/24 09:30 Oxygen Delivery Method Room Air 12/10/24 09:30 Medical Decision Making MDM Narrative Medical decision making narrative: Patient is a 89-year-old gentleman who comes in today with a painful lump to the right of his midline over his sternum. Patient has a contusion is been present for over a week. He is concerned he may have broken sternum. I did do a CT of his chest there are no acute abnormalities. Patient is advised to ice and continue take Tylenol. He is on Eliquis. He will follow-up with his primary physician as needed. Discharge Plan Discharge Clinical Impression: Contusion Patient Disposition: Home, Self-Care Condition: Stable Instructions: Contusion in Adults (ED) Additional Instructions: Ice Tylenol Continue current medication Follow-up with your doctor as needed. Activity Level: No Restrictions Discharge Diet: Regular Prescriptions: No Action cetirizine 10 mg tablet 10 mg PO DAILY sennosides [Senna Lax] 8.6 mg Tablet 17.2 mg PO BID PRN (Reason: constipation) Qty: 100 0RF acetaminophen 500 mg capsule 500 mg PO Q6H MDD 4000mg per day PRN (Reason: pain) Qty: 100 0RF spironolactone 25 mg tablet 12.5 mg PO DAILY Qty: 30 0RF valsartan 80 mg Tablet 160 mg PO HS Qty: 60 0RF esomeprazole magnesium [Nexium] 40 mg capsule,delayed release(DR/EC) 40 mg PO DAILY omeprazole 20 mg capsule,delayed release(DR/EC) 20 mg PO BID carvedilol 25 mg tablet 25 mg PO BID atorvastatin 20 mg tablet 20 mg PO HS aspirin 81 mg tablet,chewable 1 tab PO DAILY Eliquis 2.5 mg tablet 2.5 mg PO BID Jardiance 25 mg tablet 25 mg PO DAILY ascorbic acid (vitamin C) 500 mg tablet 500 mg PO DAILY vitamin E mixed 400 unit capsule 400 unit PO DAILY Follow Up/Referrals: Luiz Bullock MD [Primary Care Provider, Family Practice] Stand Alone Forms: [employer] Info Instructions
--- OUTSIDE RECORDS SUMMARY | 2024-12-10 10:04 | XMS_ITS ---
Author Name Auto Generated, Auto Generated Organization [employer] Functional Status No Results Mental Status No Results Allergies and Intolerances No Known Allergies Problems Active Concerns * Gastroesophageal reflux disease, unspecified whether esophagitis present* Code: 029688479 * Start Date: ThuAug 11 23:28:00 EDT 2024 * End Date: * Text: * Hyperlipidemia, unspecified hyperlipidemia type* Code: 03919849 * Start Date: ThuAug 11 23:28:00 EDT 2024 * End Date: * Text: * Pressure injury of left buttock, stage 2* Code: [id number] * Start Date: ThuAug 15 16:18:00 EDT 2024 * End Date: * Text: Reason for Referral
== END 2024-12-10 10:48 | disposition home or self-care (01) ==
PROVIDERS: Emergency Provider Internal Medicine; PCP Family Medicine
DX: S20.211A Contusion of right front wall of thorax, initial encounter (principal); W19.XXXA Unspecified fall, initial encounter
CPT/HCPCS: 71250; 99283

== ENCOUNTER 2025-03-31 09:58 | Emergency (ER) | payer MEDICARE, BC, SELFPAY ==
[2025-03-31] VITALS (21 sets, daily range): BP systolic 94–143; BP diastolic 45–60; PULSE 54–81; RESP 14–18; TEMP 37.1; O2SAT 91–96; BMI 24.2
--- NOTE | 2025-03-31 11:44 | ED.ABDPAIN ---
HPI - Abdominal Pain General Time Seen by Provider: 11:44 Date Seen: 03/31/25 Chief Complaint: Abdominal Pain Stated Complaint: Abdominal pain Time Seen by Provider: 03/31/25 11:33 Source: patient and RN notes reviewed Mode of arrival: ambulatory Limitations: no limitations History of Present Illness HPI narrative: Kristofer is an 89yo gentleman presenting to the ED with complaint of abdominal pain. This started about yesterday at 3pm. It started more by his belly button then has seemed to move around, now epigastric area. Notes he had a normal bowel movement yesterday. No nausea or vomiting but did not want to eat this morning thinking it might make it worse. Pain comes in waves, will worsen to 8/10, then go back to a baseline pain of 4/10. No fevers or chills at this point. He has had cholecystectomy, he has bowel excision for diverticular disease. A couple of years ago he was hospitalize [facility] for diverticular bleed, his portion of colon was removed prior to this. This hospitalization for the diverticular bleed did not result in surgery. He is on Eliquis an aspirin but did not take it this morning. They noted no GI bleeding symptoms as of yet. They do let me know that he started prednisone on Thursday for sciatica symptoms that came on after a fall. He has had both x-ray imaging and CT imaging done on his lumbar spine, he could not tolerate mri. They state that no fracture or acute traumatic issue was found on these. Patient does have known CLL, his white blood count may not be significantly helpful in this evaluation. MD elicited complaint: abdominal pain Related Data Home Medications ?Medication ?Instructions ?Recorded ?Confirmed atorvastatin 20 mg tablet 20 mg PO HS 03/26/22 12/10/24 carvedilol 25 mg tablet 25 mg PO BID 03/26/22 12/10/24 apixaban 2.5 mg tablet (Eliquis) 2.5 mg PO BID 08/27/22 12/10/24 ascorbic acid (vitamin C) 500 mg 500 mg PO DAILY 08/27/22 12/10/24 tablet aspirin 81 mg chewable tablet 1 tab PO DAILY 08/27/22 12/10/24 empagliflozin 25 mg tablet 25 mg PO DAILY 08/27/22 12/10/24 (Jardiance) vitamin E mixed 400 unit capsule 400 unit PO DAILY 08/27/22 12/10/24 cetirizine 10 mg tablet 10 mg PO DAILY 09/21/23 09/14/24 esomeprazole magnesium 40 mg 40 mg PO DAILY 08/19/24 09/14/24 capsule,delayed release (Nexium) omeprazole 20 mg capsule,delayed 20 mg PO BID 12/10/24 12/10/24 release prednisone 20 mg tablet 20 mg PO DAILY 03/31/25 03/31/25 Previous Rx's ?Medication ?Instructions ?Recorded acetaminophen 500 mg capsule 500 mg PO Q6H PRN pain #100 caps 07/21/24 sennosides 8.6 mg tablet (Senna 17.2 mg (2 x 8.6 mg) PO BID PRN 07/21/24 Lax) constipation #100 tabs spironolactone 25 mg tablet 12.5 mg (1/2 x 25 mg) PO DAILY #30 07/22/24 tabs valsartan 80 mg tablet 160 mg (2 x 80 mg) PO HS #60 tabs 07/25/24 Allergies Allergy/AdvReac Type Severity Reaction Status Date / Time amlodipine Allergy Verified 03/31/25 13:31 metformin AdvReac Intermediate Diarrhea Verified 03/31/25 13:31 Review of Systems Status of ROS Reports: 6 or more systems reviewed and unremarkable except as noted in History and below [facility] Medical History ROSA ISELA (obstructive sleep apnea) (04/17/20) ?G47.33 - Obstructive sleep apnea (adult) (pediatric) (ICD-10) 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) ?J84.9 - Interstitial pulmonary disease, unspecified (ICD-10) Interstitial lung disease (08/22/21) ?J84.9 - Interstitial pulmonary disease, unspecified (ICD-10) Hyperlipidemia (11/22/12) ?E78.5 - Hyperlipidemia, unspecified (ICD-10) Esophageal reflux (10/02/06) ?K21.9 - Gastro-esophageal reflux disease without esophagitis (ICD-10) 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) ?C91.10 - Chronic lymphocytic leukemia of B-cell type not having achieved remission (ICD-10) Anemia (12/07/18) ?D64.9 - Anemia, unspecified (ICD-10) Sickle cell disease (01/02/21) ?D57.1 - Sickle-cell disease without crisis (ICD-10) Irritable bowel syndrome with diarrhea (08/22/21) ?K58.0 - Irritable bowel syndrome with diarrhea (ICD-10) Hypertensive kidney disease with stage 3a chronic kidney disease (01/10/21) ?I12.9 - Hypertensive chronic kidney disease with stage 1 through stage 4 chronic kidney disease, or unspecified chronic kidney disease (ICD-10) ?N18.31 - Chronic kidney disease, stage 3a (ICD-10) Hemorrhagic shock (03/23/22) ?R57.8 - Other shock (ICD-10) Retinal hemorrhage, bilateral (01/02/21) ?H35.63 - Retinal hemorrhage, bilateral (ICD-10) Gynecomastia (08/06/20) ?N62 - Hypertrophy of breast (ICD-10) Dyspnea on exertion (01/02/21) ?R06.09 - Other forms of dyspnea (ICD-10) Chronic migraine with aura, not intractable, without status migrainosus (01/01/21) ?G43.E09 - Chronic migraine with aura, not intractable, without status migrainosus (ICD-10) BRBPR (bright red blood per rectum) (03/23/22) ?K62.5 - Hemorrhage of anus and rectum (ICD-10) Bilateral lower extremity edema (07/03/20) ?R60.0 - Localized edema (ICD-10) Benign positional vertigo (03/26/15) ?H81.10 - Benign paroxysmal vertigo, unspecified ear (ICD-10) Amaurosis fugax (12/31/20) ?G45.3 - Amaurosis fugax (ICD-10) Tricuspid regurgitation ?I07.1 - Rheumatic tricuspid insufficiency (ICD-10) Mitral regurgitation ?I34.0 - Nonrheumatic mitral (valve) insufficiency (ICD-10) Aortic regurgitation ?I35.1 - Nonrheumatic aortic (valve) insufficiency (ICD-10) Aortic stenosis ?I35.0 - Nonrheumatic aortic (valve) stenosis (ICD-10) Pulmonary hypertension ?I27.20 - Pulmonary hypertension, unspecified (ICD-10) Heart failure with reduced ejection fraction ?I50.20 - Unspecified systolic (congestive) heart failure (ICD-10) NSTEMI (non-ST elevated myocardial infarction) ?I21.4 - Non-ST elevation (NSTEMI) myocardial infarction (ICD-10) Weight loss, non-intentional ?R63.4 - Abnormal weight loss (ICD-10) Frailty syndrome in geriatric patient ?R54 - Age-related physical debility (ICD-10) GERD (gastroesophageal reflux disease) ?K21.9 - Gastro-esophageal reflux disease without esophagitis (ICD-10) Essential hypertension ?I10 - Essential (primary) hypertension (ICD-10) Dysphagia ?R13.10 - Dysphagia, unspecified (ICD-10) CAD (coronary artery disease) ?I25.10 - Atherosclerotic heart disease of [place] coronary artery without angina pectoris (ICD-10) Type 2 diabetes mellitus ?E11.9 - Type 2 diabetes mellitus without complications (ICD-10) Atrial fibrillation ?I48.91 - Unspecified atrial fibrillation (ICD-10) Pneumonia ?J18.9 - Pneumonia, unspecified organism (ICD-10) Elevated troponin ?R79.89 - Other specified abnormal findings of blood chemistry (ICD-10) COVID ?U07.1 - COVID-19 (ICD-10) Physical deconditioning ?R53.81 - Other malaise (ICD-10) Colitis ?K52.9 - Noninfective gastroenteritis and colitis, unspecified (ICD-10) CLL (chronic lymphocytic leukemia) ?C91.10 - Chronic lymphocytic leukemia of B-cell type not having achieved remission (ICD-10) Aortic stenosis, severe ?I35.0 - Nonrheumatic aortic (valve) stenosis (ICD-10) Diverticulosis ?K57.90 - Diverticulosis of intestine, part unspecified, without perforation or abscess without bleeding (ICD-10) Blood clot of artery under arm ?I74.2 - Embolism and thrombosis of arteries of the upper extremities (ICD-10) Diabetic retinopathy ?E11.319 - Type 2 diabetes mellitus with unspecified diabetic retinopathy without macular edema (ICD-10) Interstitial lung disease ?J84.9 - Interstitial pulmonary disease, unspecified (ICD-10) ROSA ISELA (obstructive sleep apnea) ?G47.33 - Obstructive sleep apnea (adult) (pediatric) (ICD-10) Hyperlipidemia ?E78.5 - Hyperlipidemia, unspecified (ICD-10) 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 - Dissection of other specified artery (ICD-10) Ileitis ?K52.9 - Noninfective gastroenteritis and colitis, unspecified (ICD-10) Surgical History History of open reduction and internal fixation (ORIF) procedure (07/19/24) ?Z98.890 - Other specified postprocedural states (ICD-10) Patella fracture ?S82.009A - Unspecified fracture of unspecified patella, initial encounter for closed fracture (ICD-10) History of atherectomy ?Z98.890 - Other specified postprocedural states (ICD-10) H/O colectomy ?Z90.49 - Acquired absence of other specified parts of digestive tract (ICD-10) History of laparoscopic cholecystectomy ?Z90.49 - Acquired absence of other specified parts of digestive tract (ICD-10) Family History Brother Coronary artery disease Heart disease Diabetes High blood pressure Mother Coronary artery disease Diabetes Social History Narrative: He lives at home with his daughter. Code status is full. He does not smoke. Former smoker. He does not drink alcohol. What is your current living situation?: I presently have a place to live Problems where you live: no known problems Problems where you live details: no known problems In the past 12 months, utilities in danger of being shut off: no In past 12 months, lack of transportation kept you from medical appts, meetings, work, or getting things needed for daily living: no In the past 12 mos, have been you worried that your food would run out before you had money to buy more?: never true In the past 12 mos, the food you bought just didn't last and you didn't have money to buy more?: never true Highest level of school completed/degree received: high school graduate Smoking Status: Former smoker What tobacco products do you use: cigarettes Smoking quit date/years: >15 years ago Do you use any of these nicotine containing products: None Second hand tobacco smoke exposure: Yes How often do you have a drink containing alcohol: never How often do you have six or more drinks on one occasion: Never AUDIT-C Alcohol total score: 0 Non-prescribed substance use: denies use Caffeine: Yes (Tea) How often does anyone, including family, friends and others, physically hurt you: never How often does anyone, including family, friends and others, insult or talk down to you: never How often does anyone, including family, friends and others, threaten you with harm: never How often does anyone, including family, friends and others, scream or curse at you: never service: Yes Exam Const: Vital Signs, click to edit/add: Vital Signs - 24 hr 03/31/25 10:23 03/31/25 11:42 03/31/25 11:45 Temperature 98.7 F Pulse Rate 60 66 Pulse Rate [Pulse Oximeter] 79 Respiratory Rate 18 Blood Pressure Blood Pressure [Ri ght Upper Arm] 94/54 L Pulse Oximetry 93 95 95 Oxygen Delivery Me thod Room Air 03/31/25 12:00 03/31/25 12:13 03/31/25 12:15 Temperature Pulse Rate 60 66 62 Pulse Rate [Pulse Oximeter] Respiratory Rate 15 Blood Pressure 125/60 Blood Pressure [Ri ght Upper Arm] Pulse Oximetry 95 96 95 Oxygen Delivery Me thod 03/31/25 12:30 03/31/25 12:32 03/31/25 12:45 Temperature Pulse Rate 61 61 63 Pulse Rate [Pulse Oximeter] Respiratory Rate 14 Blood Pressure 125/45 L Blood Pressure [Ri ght Upper Arm] Pulse Oximetry 91 92 94 Oxygen Delivery Me thod 03/31/25 13:00 03/31/25 13:05 03/31/25 13:29 Temperature Pulse Rate 59 L 54 L 63 Pulse Rate [Pulse Oximeter] Respiratory Rate Blood Pressure Blood Pressure [Ri ght Upper Arm] Pulse Oximetry 95 95 94 Oxygen Delivery Me thod 03/31/25 13:30 03/31/25 13:31 03/31/25 13:32 Temperature Pulse Rate 70 67 70 Pulse Rate [Pulse Oximeter] Respiratory Rate 16 18 Blood Pressure 142/59 H 143/53 H Blood Pressure [Ri ght Upper Arm] Pulse Oximetry 94 93 95 Oxygen Delivery Me thod 03/31/25 13:45 Temperature Pulse Rate 68 Pulse Rate [Pulse Oximeter] Respiratory Rate Blood Pressure Blood Pressure [Ri ght Upper Arm] Pulse Oximetry 95 Oxygen Delivery Me thod This 89-year-old male is alert, interactive, no apparent distress comes in exam room 2. Sclera clear, face atraumatic, speech normal. Neck slender, no masses. He has kyphosis but is able sit up, lungs are clear, no wheezing or crackles, tachypnea, no accessory muscle use. CV regular rate and rhythm, do hear systolic murmur, normal S1-S2, no S3-S4. Abdomen with epigastric tenderness, periumbilical tenderness but no masses, no rebound or guarding, he does have normal bowel sounds, feel no organomegaly. He has no lower extremity edema. Skin visualized without any rash. He is of slender stature. Does appear frail. Documenting provider has reviewed patient's vital signs: yes Course Course ED Course: Patient definitely needs CT imaging of his abdomen, could be multitude of things and concerning things at his age of 89. He is requesting something for discomfort at this point. We will give him some IV fluids, give him some fentanyl and get baseline labs. He is currently hemodynamically stable, is very alert and adapt with his history. Will monitor room hung pulse oximetry given that we are going to be giving a narcotic. Reevaluation(s) Time of Reevaluation #1: 14:20 Reevaluation #1: Reviewed with Kristofer that there is no etiology to explain his symptoms. He was wondering about his pancreas, reviewed that that is normal and lipase was normal. He is feeling a bit better. There is a history of some irritable bowel type symptoms. We also did bring up the fact that he has been on prednisone for the last 3 days, did not take it today. This could be giving him some GI distress. He does take a proton pump inhibitor with Nexium in the morning and than H2 edwar at night. He thinks the prednisone is maybe helped is back a little bit. We discussed maybe going up the prednisone to see if his stomach perhaps feels better. If he does take the prednisone, definitely needs to take it with food. His primary care provider did give him some tramadol, he has tolerated this well. This is fine to continue for his back. Would not necessarily have him take it for abdominal discomfort, his abdominal symptoms are worsening, do think he needs re-evaluation at his age of 89. He has been on Tylenol baseline, can continue this. We did review labs, he states his white blood count is been in the 40,000 range for some time now. Vital Signs Vital signs: Initial Vital Signs Temperature 98.7 F 03/31/25 10:23 Temperature Source Temporal Artery Scan 03/31/25 10:23 Pulse Rate 79 03/31/25 10:23 Respiratory Rate 18 03/31/25 10:23 Blood Pressure 94/54 L 03/31/25 10:23 Blood Pressure Mean 67 L 03/31/25 10:23 Pulse Oximetry 93 03/31/25 10:23 Oxygen Delivery Method Room Air 03/31/25 10:23 Vital Signs Temperature 98.7 F 03/31/25 10:23 Pulse Rate 79 03/31/25 10:23 Respiratory Rate 18 03/31/25 10:23 Blood Pressure 94/54 L 03/31/25 10:23 Pulse Oximetry 93 03/31/25 10:23 Oxygen Delivery Method Room Air 03/31/25 10:23 Temperature 98.7 F 03/31/25 10:23 Pulse Rate 68 03/31/25 13:45 Respiratory Rate 18 03/31/25 13:32 Blood Pressure 143/53 H 03/31/25 13:32 Pulse Oximetry 95 03/31/25 13:45 Oxygen Delivery Method Room Air 03/31/25 10:23 Medications Administered Medications: Discontinued Medications Generic Name Dose Route Start Last Admin Trade Name Freq PRN Reason Stop Dose Admin Fentanyl 25 mcg 03/31/25 11:59 03/31/25 12:22 Fentanyl 100 Mcg/2 Ml Inj IVP 03/31/25 12:00 25 mcg ONCE ONE Administration Sodium Chloride 250 mls @ 250 mls/hr 03/31/25 11:59 03/31/25 12:21 0.9 % Sodium Chloride 250 Ml IV 03/31/25 12:58 250 mls/hr .Q1H ONE Administration Ondansetron HCl 4 mg 03/31/25 11:59 03/31/25 12:21 Ondansetron 2 Mg/Ml Inj IVP 03/31/25 12:00 4 mg ONCE ONE Administration MDM - Abdominal Pain Lab Data Attestation: I reviewed the patient's lab results. Labs: Lab Results 03/31/25 Range/Units 12:40 WBC 45.87 H* (4.50-11.00) K/uL RBC 3.74 L (4.30-5.90) m/uL Hgb 11.2 L (13.5-17.5) gm/dL Hct 36.4 L (37.0-53.0) % MCV 97 (80-100) fL MCH 30 (26-34) pg MCHC 31 L (32-36) gm/dL RDW Coeff of Ravi 14.4 (11.5-15.5) % Plt Count 200 (140-440) K/uL Neut % (Auto) 25.4 L (42.0-72.0) % Lymph % (Auto) 71.2 H (20-44) % [place] % (Auto) 3.0 (0.0-11.0) % Eos % (Auto) 0.1 (0.0-7.0) % Baso % (Auto) 0.1 (0.0-3.0) % Neut # (Auto) 11.70 H (1.7-7.0) K/uL Lymph # (Auto) 32.70 H (0.90-2.90) K/uL [place] # (Auto) 1.40 H (0.00-0.90) K/UL Eos # (Auto) 0.00 (0.00-0.50) K/uL Baso # (Auto) 0.00 (0.00-0.30) K/uL Abs Immat Gran (auto) 0.10 (0.00-0.30) K/uL Imm/Tot Granulo (auto) 0.2 % Diff Slide Review Acceptable Review (Acceptable) Sodium 137 (135-149) mmol/L Potassium 4.1 (3.6-5.1) mmol/L Chloride 99 (96-114) mmol/L Carbon Dioxide 27 (20-32) mmol/L Anion Gap 11 (7-15) mEq/L BUN 26 (7-30) mg/dL Creatinine 0.9 (0.5-1.5) mg/dL Estimated Creat Clear 45.19 Estimated GFR 82 ml/min Glucose 159 H (60-115) mg/dL Lactate 1.2 (0.5-1.9) mmol/L Calcium 9.2 (8.4-10.6) mg/dL Total Bilirubin 0.8 (0.1-1.5) mg/dL AST 26 (12-35) U/L ALT 23 (4-50) U/L Alkaline Phosphatase 231 H (40-150) U/L C-Reactive Protein 0.5 (0.5-1.0) mg/dL Total Protein 6.0 (6.0-8.3) g/dL Albumin 3.6 (3.3-5.0) g/dL Lipase 53 (23-300) U/L Imaging Data CT scan - abdomen: Attestation: I have reviewed the pertinent imaging results. Radiologist's impression: Patient: KRISTOFER BOWEN Facility:?[facility] Patient ID:?[id number] Site Patient ID:?[id number]. Site :?[id number] Study:?CT-Abdomen/Pelvis 74CC ISOVUE 370-03/31/2025 1:31:06 PM Ordering Physician:?Malena Zavala Final Report: INDICATION: Abdominal pain, history of CLL TECHNIQUE: CT abdomen and pelvis acquired with 74 cc Isovue 370 IV contrast. COMPARISON: CT abdomen pelvis 08/27/2022. FINDINGS: Lower chest: Aortic valve replacement. Trivessel coronary artery calcification. Trace pericardial effusion, likely physiologic. Subpleural reticulation with some architectural distortion in the right lower lobe and in possible honeycombing in the lingula. Gynecomastia. Liver: Unremarkable. Gallbladder and bile ducts: Cholecystectomy. No biliary ductal dilation. Pancreas: Unremarkable. Spleen: Unremarkable. Adrenal glands: Unremarkable. Kidneys: Left renal cysts. Left parapelvic cysts. No nephrolithiasis. GI tract: No obstruction. Colonic diverticulosis without diverticulitis. Appendix is not visualized, but there are no secondary signs of inflammation in the right lower quadrant. Vasculature: Moderate atherosclerosis of the aorta and branch vessels. Moderate atherosclerosis of the mesenteric arteries, which appear patent. Lymph nodes: No lymphadenopathy. Peritoneum/Abdominal Wall: Redemonstration of calcified soft tissue masses in the mesentery, the right paramedial mass measuring 2.8 x 1.8 centimeters, previously 2.8 x 1.6 centimeters, and the left paramedian mass measuring 3 x 1.5 centimeters (2/44), previously 3.3 x 1.9 centimeters. No evidence of spiculation or architectural distortion. Pelvis: Unremarkable. Bones: Right intramedullary deidre and screw fixation. IMPRESSION: No acute findings to explain symptoms. Subpleural fibrotic interstitial lung abnormality in the visualized lungs, which is slightly increased compared to 2022, particularly in the lingula. Further evaluation with nonemergent high-resolution CT chest can be considered for further evaluation at clinical discretion. Similar size of the calcified mesenteric masses, which likely represent sequela of benign etiology such as omental infarcts considering stability. This may also be sequela of prior treatment. Please note that all CT scans at this facility use dose modulation, iterative reconstruction, and/or weight-based dosing when appropriate to reduce radiation dose to as low as reasonably achievable. Dictated by Lesia Caballero MD @ 03/31/2025 1:53:36 PM (Electronic Signature) Discharge Plan Discharge Clinical Impression: Acute epigastric pain Patient Disposition: Home, Self-Care Condition: Stable Instructions: Epigastric Pain (ED) Additional Instructions: Would have you consider stopping the prednisone as this could contribute to stomach irritation, gastritis, potentially even ulcer disease with longer use. Continue with the Nexium and the acid suppressant you use at bedtime. It is fine to stand Tylenol 1000 mg 3 times a day baseline for pain. You certainly can try the tramadol that was prescribed to you for back pain. If you have worsening abdominal pain, develops vomiting or fever with abdominal pain, have blood in your stools, need to return for further evaluation. Do recommend scheduling a recheck in clinic within the next week for recheck. Activity Level: Activity as Tolerated Prescriptions: No Action cetirizine 10 mg tablet 10 mg PO DAILY sennosides [Senna Lax] 8.6 mg Tablet 17.2 mg PO BID PRN (Reason: constipation) Qty: 100 0RF acetaminophen 500 mg capsule 500 mg PO Q6H MDD 4000mg per day PRN (Reason: pain) Qty: 100 0RF spironolactone 25 mg tablet 12.5 mg PO DAILY Qty: 30 0RF valsartan 80 mg Tablet 160 mg PO HS Qty: 60 0RF esomeprazole magnesium [Nexium] 40 mg capsule,delayed release(DR/EC) 40 mg PO DAILY omeprazole 20 mg capsule,delayed release(DR/EC) 20 mg PO BID prednisone 20 mg tablet 20 mg PO DAILY carvedilol 25 mg tablet 25 mg PO BID atorvastatin 20 mg tablet 20 mg PO HS aspirin 81 mg tablet,chewable 1 tab PO DAILY Eliquis 2.5 mg tablet 2.5 mg PO BID Jardiance 25 mg tablet 25 mg PO DAILY ascorbic acid (vitamin C) 500 mg tablet 500 mg PO DAILY vitamin E mixed 400 unit capsule 400 unit PO DAILY Follow Up/Referrals: Luiz Bullock MD [Primary Care Provider, Family Practice] Stand Alone Forms: [facility] Info Instructions
--- NOTE | 2025-03-31 11:56 | CRLHL7_ITS ---
For Patients: As a result of the Century Cures Act, medical imaging exams and procedure reports are released immediately into your electronic medical record. You may view this report before your referring provider. If you have questions, please contact your health care provider. INDICATION: Abdominal pain, history of CLL TECHNIQUE: CT abdomen and pelvis acquired with 74 cc Isovue 370 IV contrast. COMPARISON: CT abdomen pelvis 08/27/2022. FINDINGS: Lower chest: Aortic valve replacement. Trivessel coronary artery calcification. Trace pericardial effusion, likely physiologic. Subpleural reticulation with some architectural distortion in the right lower lobe and in possible honeycombing in the lingula. Gynecomastia. Liver: Unremarkable. Gallbladder and bile ducts: Cholecystectomy. No biliary ductal dilation. Pancreas: Unremarkable. Spleen: Unremarkable. Adrenal glands: Unremarkable. Kidneys: Left renal cysts. Left parapelvic cysts. No nephrolithiasis. GI tract: No obstruction. Colonic diverticulosis without diverticulitis. Appendix is not visualized, but there are no secondary signs of inflammation in the right lower quadrant. Vasculature: Moderate atherosclerosis of the aorta and branch vessels. Moderate atherosclerosis of the mesenteric arteries, which appear patent. Lymph nodes: No lymphadenopathy. Peritoneum/Abdominal Wall: Redemonstration of calcified soft tissue masses in the mesentery, the right paramedial mass measuring 2.8 x 1.8 centimeters, previously 2.8 x 1.6 centimeters, and the left paramedian mass measuring 3 x 1.5 centimeters (2/44), previously 3.3 x 1.9 centimeters. No evidence of spiculation or architectural distortion. Pelvis: Unremarkable. Bones: Right intramedullary deidre and screw fixation. IMPRESSION: No acute findings to explain symptoms. Subpleural fibrotic interstitial lung abnormality in the visualized lungs, which is slightly increased compared to 2022, particularly in the lingula. Further evaluation with nonemergent high-resolution CT chest can be considered for further evaluation at clinical discretion. Similar size of the calcified mesenteric masses, which likely represent sequela of benign etiology such as omental infarcts considering stability. This may also be sequela of prior treatment. Please note that all CT scans at this facility use dose modulation, iterative reconstruction, and/or weight-based dosing when appropriate to reduce radiation dose to as low as reasonably achievable. Dictated by Lesia Caballero MD @ 03/31/2025 1:53:36 PM (Electronically Signed)
[2025-03-31] MEDS: 0.9 % SODIUM CHLORIDE 250 ml 250 ML IV (12:21)
[2025-03-31] MEDS: ONDANSETRON 2 MG/ML inj 4 MG IVP (12:21)
[2025-03-31 12:45] LABS: Lactate* 1.2 mmol/L (0.5-1.9)
[2025-03-31 12:51] LABS: Hematocrit* 36.4 % (37.0-53.0); Hemoglobin* 11.2 gm/dL (13.5-17.5); Immature Granulocytes Abs Auto 0.10 K/uL (0.00-0.30); Immature Granulocytes Pct Auto 0.2 %; Mean Corpuscular HGB Conc 31 gm/dL (32-36); Mean Corpuscular Hemoglobin 30 pg (26-34); Mean Corpuscular Volume 97 fL (80-100); RDW Coefficient of Variation % 14.4 % (11.5-15.5); Red Blood Count* 3.74 m/uL (4.30-5.90)
[2025-03-31 13:02] LABS: Albumin* 3.6 g/dL (3.3-5.0); Chloride* 99 mmol/L (96-114); Potassium* 4.1 mmol/L (3.6-5.1); Sodium* 137 mmol/L (135-149)
[2025-03-31 13:05] LABS: Alanine Aminotransferase* 23 U/L (4-50); Alkaline Phosphatase* 231 U/L (40-150); Anion Gap 11 mEq/L (7-15); Aspartate Amino Transferase* 26 U/L (12-35); Bilirubin Total* 0.8 mg/dL (0.1-1.5); Blood Urea Nitrogen* 26 mg/dL (7-30); Carbon Dioxide* 27 mmol/L (20-32); Creatinine* 0.9 mg/dL (0.5-1.5); Est. Creatinine Clearance* 45.19; Estimated Glomerular Filt Rate 82 ml/min; Total Protein* 6.0 g/dL (6.0-8.3)
[2025-03-31 13:06] LABS: Calcium* 9.2 mg/dL (8.4-10.6); Glucose* 159 mg/dL (60-115)
[2025-03-31 13:18] LABS: Lymphocytes Absolute Auto 32.70 K/uL (0.90-2.90); Slide Review Reflex Yes; White Blood Count* 45.87 K/uL (4.50-11.00)
[2025-03-31 13:21] LABS: Slide Review Acceptable Review (Acceptable)
== END 2025-03-31 14:50 | disposition home or self-care (01) ==
PROVIDERS: Emergency Provider Family Medicine; PCP Family Medicine
DX: R10.13 Epigastric pain (principal)
CPT/HCPCS: 36415; 74177; 80053; 81001; 83605; 83690; 85025; 86140; 94761; 96374; 96375; 99284; 99285; J2405; J3010; J7050; Q9967

== ENCOUNTER 2025-04-10 08:01 | Emergency (ER) | payer MEDICARE, BC, SELFPAY ==
--- OUTSIDE RECORDS SUMMARY | 2025-03-20 09:00 | XMS_ITS | Encounter Summary ---
Author Organization [facility] Address [address] [place] [address] Care Team Providers Care Steel Detailer Name Role Phone Elsewhere, Pcp Primary Care Provider Unavailabl e Reason for Referral * Outpatient (Routine) - Authorized Specialty Diagnoses / Procedures Referred By Fidelina hernandez Referred To Contact Cardiovascular Disease Diagnoses Stenosis Aortic Valve Acquired Acute Systolic (Congestive) Heart Failure (HCC) Atherosclerotic Heart Disease [place] Coronary Artery With Other Forms Angina Pectoris (Angina Equivalent) Atrial Fibrillation Paroxysmal (HCC) Gt Ricks P.A.-C., M.S. [address] [place] [address] Phone: tel: fax: [facility] Referral ID Status Reason Start Date Expiration Date V isits Requested Visits Authorized [id number] Authorized 03/24/2025 09/23/2026 1 1 Scheduling Instructions After valve clinic appointments ING MACHINE OPERATOR Reason for Visit * Outpatient (Routine) - Closed Specialty Diagnoses / Procedures Referred By Fidelina hernandez Referred To Contact Cardiovascular Disease Diagnoses Stenosis Aortic Valve Acquired Coronary Stent Status Post Diabetes Mellitus Type 2 (HCC) Atherosclerotic Heart Disease [place] Coronary Artery With Other Forms Angina Pectoris (Angina Equivalent) Hypertension Essential Primary Atrial Fibrillation Unspecified (HCC) Dyspnea On Exertion Gt Ricks P.A.-C., M.S. [address] [place] [phone] Phone: tel: fax: [facility] Referral ID Status Reason Start Date Expiration Date Visits Re quested Visits Authorized [id number] Closed 02/08/2024 08/09/2025 1 1 Encounter Details Date Type Department Care Team (Latest Contact Info) Description 03/20/2025 9:00 AM BULKING MACHINE OPERATOR Office Visit Department of Cardiovascular Medicine in [place], [place] [address] [place] [phone] Gt Ricks P.A.-C., M.S. [address] [place] [address] Stenosis Aortic Valve Acquired (Primary Dx); Acute Systolic (Congestive) Heart Failure (HCC); Atherosclerotic Heart Disease [place] Coronary Artery With Other Forms Angina Pectoris (Angina Equivalent); Atrial Fibrillation Paroxysmal (HCC) Social History Tobacco Use Types Packs/Day Years Used Date Smoking Tobacco: Former Cigarettes 1 17 0 10/21/1950 - 10/31/1967 Smokeless Tobacco: Never Alcohol Use Standard Drinks/Week Comments Yes 1 (1 standard drink = 0.6 oz pur e alcohol) rarely [facility] Utilities Answer Date Recorded In the past 12 months has e [employer], gas, oil, or water [employer] threatened to shut off services in your [...] your living situation today? I have a [facility] place to live 08/21/2024 Education Answer Date Recorded What is the highest level of school you have completed or the highest degree you have received? 12th grade 12/31/2021 Sex and Gender Information Value Date Recorded Sex Assigned at Male 12/31/2021 3:41 PM CDT Legal Sex Male 8:35 AM BULKING MACHINE OPERATOR Gender Identity Male 12/09/2017 1:17 PM CDT Sexual Orientation Straight 12/09/2017 1: 17 PM CDT documented as of this encounter Last Filed Vital Signs Vital Sign Reading Time Taken Comments Blood Pressure 134/69 03/20/2025 8:28 AM BULKING MACHINE OPERATOR Pulse 76 03/20/2025 8:28 AM BULKING MACHINE OPERATOR Temperature - - Respiratory Rate - - Oxygen Saturation - - Inhaled Oxygen Concentration - - Weight 70 kg (154 lb 5.2 oz) 03/20/2025 8:28 AM BULKING MACHINE OPERATOR Height 167 cm (5' 5.75) 03/20/2025 8:28 AM BULKING MACHINE OPERATOR Body Mass Index 25.1 03/20/2025 8:28 AM BULKING MACHINE OPERATOR documented in this encounter Progress Notes * Gt Ricks MPAS, P.A.-C., M.S. - 03/20/2025 9:00 AM CST SUBJECTIVE CHIEF COMPLAINT / REASON FOR VISIT Follow up HISTORY OF PRESENT ILLNESS Kristofer Garcia is a pleasant 89 y.o. male with a medical history significant for: Aortic valve stenosis s/p TAVR with 29 mm [place] 3 Ultra Valve 08/30/2024 HFpEF TTE 08/30/2024 Mild mitral valve regurgitation Mild tricuspid valve regurgitation Coronary artery disease s/p multiple PCIs (12/2020 PCI with JAMES to mLAD, proximal circumflex, and OM1) Paroxysmal atrial fibrillation diagnosed in 2019; long-term anticoagulation with Eliquis Hypertension Hyperlipidemia Type 2 diabetes mellitus History of hemorrhagic shock secondary to bleeding sigmoid diverticuli s/p deployment of 2 hemostatic clips 03/23/2022 Chronic normocytic anemia Interstitial lung disease Chronic lymphocytic leukemia Patient had previously documented echocardiogram with documented abnormal LV strain pattern. He underwent workup for amyloid. PYP was not suggestive of TTR amyloid, serum M protein isotype returned negative. Fat aspirate negative for amyloid. Cardiac MRI demonstrated findings consistent with a nonischemic cardiomyopathy. Patient was most recently evaluated in Cardiovascular Diseases by Alba Carrero NP and Dr. Goldberg on 09/28/2024. From a cardiac standpoint, patient has been feeling well following his TAVR on 08/30/2024. He was referred for cardiac rehab but has not been able to start this due to recent injury. His main concern is in regards to this injury that occurred approximately 2-3 weeks ago. He was evaluated locally with unremarkable x-rays and is scheduled to be seen again this Thursday, 03/24. During this event, he reports that he was walking to his front door and fell backwards. He continues to experience severe back pain requiring Tylenol every 6 hours and a pain patch. He still experiences significant pain despite these measures. He also has pain to palpation. He is not able to stand long before he has significant pain his activity level has greatly decreased. The day after his fall, he reports that he has struggled with urination. This has improved, but he reports he does not completely empty his bladder. He is now presenting with progression of symptoms that include left leg weakness and his leg wanting to give out when he is standing. He denies saddle anesthesia or loss of bowel or bladder function. He also reports that he fell and fractured his sternum 2 and half months ago and also had a fall inFebruary that fractured his hip. Cardiac Medications: Eliquis 2.5 mg twice daily Aspirin 81 mg daily Atorvastatin 20 mg daily Carvedilol 25 mg twice daily Jardiance 25 mg daily Furosemide 20 mg as needed Sublingual nitroglycerin as needed Spironolactone 12.5 mg daily Valsartan 80 mg daily Previous Cardiac Testing: Echo 09/28/2024: 1. Status post 29mm [place] Cricket 3 [...] pericardial effusion with largest accumulation located anteriorly. Echo 08/30/2024: 1. TTE imaging performed during TAVR deployment. 2. PRE-PROCEDURE: 3. Estimated left ventricular ejection fraction range 35% - 40%. 4. Severe calcific aortic valve stenosis with moderate regurgitation. 5. Aortic valve area by Doppler 0.94 cm2. Mean systolic gradient 32 mmHg. 6. Tiny posterior pericardial effusion with small anterior pericardial effusion. 7. PROCEDURE: 8. Transthoracic imaging guidance: transcatheter aortic valve replacement (TAVR). 9. POST-DEPLOYMENT 10. Status post 29mm [place] Cricket 3 pericardial transcatheter aortic valve bioprosthesis (30-AUG-2024). 11. Trivial aortic valve periprosthetic regurgitation (tiny anterior jet). No prosthetic regurgitation. 12. Aortic valve prosthesis systolic mean gradient post-procedure 4 mmHg. 13. Unchanged pericardial effusion post-procedure (trivial posteriorly; small anteriorly). Echo 02/04/2024: 1. Moderate calcific aortic valve stenosis (mean gradient 26 mmHg; JEANETTE 1.17 cm2). Mild-moderate aortic regurgitation. 2. Mildly enlarged left ventricular chamber size , ejection fraction 56%, no regional wall motion abnormalities, and elevated filling pressure. 3. Global averaged left ventricular longitudinal peak systolic strain is normal at -19% (normal = more negative than -18%). 4. Normal right ventricular chamber size and function. Estimated right ventricular systolic pressure 54 mmHg (right atrial pressure of 5 mmHg). 5. Normal inferior vena cava size with normal inspiratory collapse (>50%). 6. No pericardial effusion. 7. Compared to the report of 07/07/2022 the following changes have occurred: aortic stenosis has slightly progressed and RVSP has increased. REVIEW OF SYSTEMS Pertinent items are noted in HPI; all other review of systems was negative. Allergies Allergen Reactions Metformin Diarrhea and GI intolerance Amlodipine Other (see comments) and Edema (Reselect Reaction) Leg swelling on 5mg Leg swelling on 5mg Leg swelling on 5mg Current Medications[1] OBJECTIVE VITAL SIGNS Vitals: 03/20/25 0828 BP: 134/69 BP Location: Left arm Patient Position: Sitting Cuff Size: Regular Pulse: 76 Weight: 70 kg Height: 167 cm Wt Readings from Last 3 Encounters: 03/20/25 70 kg 11/21/24 73.4 kg 09/28/24 71 kg DIAGNOSTICS ECG 02/20/2025: Sinus rhythm with 1st degree A-V block (72 bpm) Premature ventricular complexes Right bundle branch block with secondary ST-T abnormalities Left anterior fascicular block Bifascicular block When compared with ECG of 28-Sep-2024 14:35, DE interval has increased Premature ventricular complexes are now present Right bundle branch block is now present Echo 02/20/2025: 1. Status post 29mm [place] Cricket 3 pericardial aortic valve prosthesis. 2. Aortic valve prosthesis systolic mean Doppler gradient 9 mmHg. 3. Trivial aortic valve periprosthetic regurgitation. 4. Mildly enlarged left ventricular chamber size, calculated 2-D biplane volumetric ejection fraction of 57%. 5. Abnormal left ventricular geometry with eccentric left ventricular hypertrophy, grade 1 a/3 diastolic dysfunction, consistent with mildly elevated filling pressure. 6. Normal right ventricular chamber size, normal systolic function, right ventricular systolic pressure 34 mmHg (right atrial pressure of 5 mmHg). 7. Tiny circumferential pericardial effusion. 8. Compared to the report of 09/28/2024 the following changes have occurred: The calculated left ventricular ejection fraction has improved. Side by side comparison of images performed. Catheterization 08/23/2024: FINAL DIAGNOSIS 1. Severe coronary artery atherosclerosis 2. Patent stent in the LAD with mild in-stent restenosis 3. Patent stent in the left circumflex artery without in-stent restenosis CORONARY DIAGNOSTIC SUMMARY Coronary artery dominance is right. Normal left main coronary. Patent stent in the left circumflex, without ISR. The middle left anterior descending artery is 50% obstructed by multiple discrete lesions. The first diagonal branch is 90% obstructed by a discrete lesion. The second diagonal branch is 90% obstructed by a discrete lesion. The proximal right coronary artery is 50% obstructed by a discrete lesion and 30% obstructed by multiple discrete lesions. The middle right coronary artery is 30% obstructed by multiple discrete lesions. The distal right coronary artery is 20% obstructed by a discrete lesion. Chest x-ray 02/20/2025: No significant change since 09/28/2024. Bilateral lung marking accentuation from shallow inspiration. Peripheral basilar predominant reticular pattern interstitial fibrosis better shown on 12/31/2020 CT, as was traction bronchiectasis, possible usual interstitial pneumonia (UIP) pattern. TAVR. Coronary artery stenting. Fat pad along LV apex. Calcified tortuous aorta. Right axillary and upper quadrant surgical clips. Spine degenerative change with midthoracic severe vertebral body compression and kyphosis. Labs: CBC Lab Results Component Value Date WBC 33.9 (H) 02/20/2025 HGB 11.7 (L) 02/20/2025 HCT 37.8 (L) 02/20/2025 MCV 96.2 02/20/2025 PLT 172 02/20/2025 CMP Lab Results Component Value Date KSERUM 5.2 02/20/2025 NA 139 02/20/2025 CL 103 02/20/2025 BICARB 27 02/20/2025 ANIONGAP 9 02/20/2025 BUN 22 02/20/2025 CREATININE 1.13 02/20/2025 EGFR 62 02/20/2025 CALCIUM 9.4 02/20/2025 GLUCOSE 138 (H) 02/20/2025 GLUCOSE CANCELED 02/20/2025 PROTEIN 6.0 (L) 02/20/2025 ALBUMIN 3.9 02/20/2025 AST 22 02/20/2025 ALKPHOS 137 (H) 02/20/2025 ALT 18 02/20/2025 BILITOT 0.5 02/20/2025 Lipids Lab Results Component Value Date CHOL 97 02/20/2025 HDL 42 02/20/2025 LDLCALC 41 02/20/2025 TRIG 64 02/20/2025 TTLCHOLHDLRT 2.81 04/22/2023 NTProBnP Lab Results Component Value Date NTPROBNP 836 (H) 02/20/2025 TSH Lab Results Component Value Date TSH 3.3 02/20/2025 Troponin Lab Results Component Value Date SMCPUIQQL7V 131 (H) 08/20/2024 2HDELTAINT Not Changing 08/20/2024 6HTROPOT 126 (H) 08/21/2024 6HDELTAINT Not Changing 08/21/2024 TROPTBASE 129 (H) 08/20/2024 Hemoglobin A1c Lab Results Component Value Date HGBA1C 6.7 (H) 2024 ASSESSMENT / PLAN #1 Aortic Valve Stenosis s/p TAVR with 29 mm [place] Cricket 3 Ultra Valve 08/30/2024 #2 Heart Failure with Recovered Ejection Fraction #3 Coronary Artery Disease s/p Multiple PCIs (12/2020 PCI with JAMES to mLAD, prox Circ, and OM1) Patient is doing well from a cardiac standpoint and denies cardiac symptoms with exertion. Echocardiogram in January 2024 reported moderate aortic valve stenosis with gradient 26 mmHg and valve area 1.17 cm2 and a left ventricular ejection fraction of 56%. In August 2024, aortic valve stenosis progressed to severe with valve area of 0.94 cm2 and a reduced ejection fraction at 37%. Patient underwent TAVR on 08/30/2024. Echocardiogram completed on 02/20/2025 shows recovered ejection fraction at 57%. Patient's symptoms prior to TAVR have resolved. Repeat echocardiogram in 1 year with follow up visit in Valve Clinic and myself. #4 Paroxysmal Atrial Fibrillation diagnosed in 2019 Continue anticoagulation therapy with Eliquis 2.5 mg twice daily. #5 Hypertension Blood pressure slightly elevated at 130 4/69 mmHg during today's visit. Patient reports that he is experiencing pain with his recent fall. Continue current cardiac medication regimen. #6 Hyperlipidemia Treated with atorvastatin 20 mg daily. Recommend goal LDL less than 55 due to significant coronary artery disease. LDL on recent labs was 41. We did discuss the importance of participating in the cardiac rehab program once he is healed from his recent fall. Discussed that exercise will help to improve his balance. He also experiences episodes of vertigo and feels that this may contribute to his falls. He has been treated for this in the past and we discussed that he continue to be followed by his local provider for his episodes of vertigo and frequent falls. I am concerned with his new symptoms of left leg weakness and his leg wanting to give out when he is standing. He is not able to tolerate activity or standing for long before his back pain requires him to sit and rest. This is with the use of a pain patch and Tylenol every 6 hours. Discussed that I will try to reach out to his local provider about possibly completing further imaging studies to evaluate his lumbar spine prior to his follow up appointment on Thursday, 03/24. PLAN: Recommend continued follow up with his local provider for frequent falls, poor balance, and frequent episodes of vertigo. Recommend completing cardiac rehab for valve replacement once he has been further evaluated for hislow back pain due to recent fall. Discussed that he is able to complete his cardiac rehab program up to 1 year following valve replacement. I will plan to see the patient back in September of next year when he returns for his 1 year valve clinicfollow up. It was my pleasure to participate in the care of Mr. Garcia. He verbalized understanding of recommendations and had no further questions. I personally spent 30 minutes in care of the patient today. Time includes both non face to face andface to face patient care. ROXANA Callaway, P.A.-C., M.S. 03/24/2025 [1] Current Medications: Accu-Chek Guide Glucose Meter [facility] [place], See Admin Instructions. Accu-Chek Softclix Lancets lancets, daily. for testing amoxicillin (AmoxiL) 500 mg capsule, Take 2,000 mg by mouth as directed. Take 2,000 mg by mouth. 1 hour prior to dental work apixaban (Eliquis) 2.5 mg tablet, Take 2.5 mg by mouth 2 (two) times a day. ascorbic acid, vitamin C, (VITAMIN C) 500 mg tablet, Take 1 tablet by mouth daily. aspirin [address] tablet, Take 1 tablet (81 mg total) by mouth daily. atorvastatin (LIPITOR) 20 mg tablet, Take 20 mg by mouth at bedtime. blood sugar diagnostic (Truetrack Test) strips, TEST 1 TIME PER DAY carvediloL (COREG) 25 mg tablet, Take 25 mg by mouth 2 (two) times a day with meals. DME CPAP, DME Order empagliflozin (JARDIANCE) 25 mg tablet, Take 25 mg by mouth daily before morning meal. esomeprazole (NexIUM) [address] capsule, Take 40 mg by mouth daily before morning meal. famotidine (Pepcid) 20 mg tablet, Take 1 tablet (20 mg total) by mouth at bedtime. (Patient not taking: Reported on 11/16/2024) fluticasone propionate (FLONASE) 50 mcg/actuation nasal spray, Administer 2 sprays into nostril(s) as needed. furosemide (Lasix) 20 mg tablet, Take 1 tablet (20 mg total) by mouth daily as needed (For weight gain of 2-3 lbs over the course of 24 hours, take until your weight returns to baseline and call yourdoctor) Indications: accumulation of fluid resulting from chronic heart failure. Monitor for worsening signs of shortness of breath and leg swelling nitroglycerin (Nitrostat) 0.4 mg SL tablet, Place 1 tablet (0.4 mg total) under the tongue every 5 (five) minutes as needed for chest pain Indications: angina, a type of chest pain. peg 400-propylene glycol (SYSTANE) 0.4-0.3 % ophthalmic solution, Administer 1 drop into both eyes 2 (two) times a day as needed for dry eyes. spironolactone (ALDACTONE) 25 mg tablet, Take 0.5 tablets (12.5 mg total) by mouth daily. sucralfate (Carafate) 1 gram tablet, Take 1 tablet (1 g total) by mouth 4 (four) times a day beforemeals and bedtime. triamcinolone (KENALOG) 0.1 % cream, Apply 1 application topically as needed. valsartan (Diovan) 80 mg tablet, Take 80 mg by mouth daily. vitamin E 180 mg (400 Unit) capsule, Take 400 Units by mouth daily. ING MACHINE OPERATOR documented in this encounter Plan of Treatment Scheduled Referrals Name Type Priority Associated Diagnoses Orde r Schedule Cardiovascular Disease office visit (clinic) [facility]; General Outpatient Referral Routine Stenosis Aortic Valve Acquired Acute Systolic (Congestive) Heart Failure (HCC) Atherosclerotic Heart Disease [place] Coronary Artery With Other Forms Angina Pectoris (Angina Equivalent) Atrial Fibrillation Paroxysmal (HCC) Expected: 10/03/2025, Expires: 06/24/2026 documented as of this encounter Visit Diagnoses Diagnosis Stenosis Aortic Valve Acquired- Primary Acute Systolic (Congestive) Heart Failure (HCC) Atherosclerotic Heart Disease [place] Coronary Artery With Other Forms Angina Pectoris (Angina Equivalent) Atrial Fibrillation Paroxysmal (HCC) documented in this encounter Care Teams Steel Detailer Relationship Specialty Start Date End Date Elsewhere, Pcp PCP - General Family Medicine 01/10/21 documented as of this encounter
[2025-04-10] VITALS (22 sets, daily range): BP systolic 146–178; BP diastolic 57–65; PULSE 60–76; RESP 16–20; TEMP 36.9; O2SAT 94–97
--- OUTSIDE RECORDS SUMMARY | 2025-04-10 08:06 | XMS_ITS | Clinical Summary ---
Author Organization [facility] Address [address] [place] [address] Care Team Providers Care [place] Worker Name Role Phone Elsewhere, Pcp Primary Care Provider Unavailabl e Source Comments Patient records contain information from all sites at [facility]. For routine questions regarding patient records, call [phone] during business hours, M-F 8:00 AM - 5:00 PM Central Time. 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 03/20/2025 9:00 AM HARNESS RIGGER Office Visit Department of Cardiovascular Medicine in [place], [place] [address] [place] [phone] Gt Ricks P.A.-C., M.S. 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); Hypertension Essential Primary; Atrial Fibrillation Unspecified (HCC) Discharge Disposition: Home or Self Care 01/24/2025 Clinical Communication Department of Ophthalmology in [place], [place] [address] [place] [address] Prescheduling, Provider from Last 3 Months Immunizations Immunization Administration Dates Next Due Influenza Split 02/16/2012, 8,02/15/2007,2002 Influenza TIV (IM) 03/04/2019 Influenza, Quadrivalent, Adj uvanted, Preservative Free 03/06/2020 PPSV23 01/29/2010,05/18/2004,02/29/2004 RZV (SHINGRIX) 10/10/2020,06/12/2020 SARS-COV-2 (COVID-19) - PFIZ ER (Discontinued)(12 years or older) 01/30/2021 Td Preservative Free (TENIVA C, DECAVAC) 04/17/2009 Td, (Adult) Unspecified 12/25/1998 Tdap 06/12/2020 Family History Medical History Relation Name Comments Cataracts Brother 1 vinckelly Coronary artery disease Brother 1 jay hear t attack bypass Diabetes Brother 1 vinckelly Hypertension Brother 1 vinckelly meds Macular degeneration Brother 1 vincent Cataracts Brother 2 javier Coronary artery disease Brother 3 maria t Hyperlipidemia (high cholesterol) Brother 3 maria t Coronary artery disease [...] = 0.6 oz pur e alcohol) rarely [facility] Utilities Answer Date Recorded In the past 12 months has e [employer], gas, oil, or water [employer] threatened to shut off services in your [...] your living situation today? I have a [facility] place to live 08/21/2024 Education Answer Date Recorded What is the highest level of school you have completed or the highest degree you have received? 12th grade 12/31/2021 Sex and Gender Information Value Date Recorded Sex Assigned at Male 12/31/2021 3:41 PM CDT Legal Sex Male 8:35 AM HARNESS RIGGER Gender Identity Male 12/09/2017 1:17 PM CDT Sexual Orientation Straight 12/09/2017 1: 17 PM CDT Last Filed Vital Signs Vital Sign Reading Time Taken Comments Blood Pressure 134/69 03/20/2025 8:28 AM HARNESS RIGGER Pulse 76 03/20/2025 8:28 AM HARNESS RIGGER Temperature 35.7 C (96.2 F) 11/21/2024 3:15 PM CDT Respiratory Rate 18 09/01/2024 11:00 AM CDT Oxygen Saturation 96% 09/28/2024 12:49 PM CDT Inhaled Oxygen Concentration - - Weight 70 kg (154 lb 5.2 oz) 03/20/2025 8:28 AM HARNESS RIGGER Height 167 cm (5' 5.75) 03/20/2025 8:28 AM HARNESS RIGGER Body Mass Index 25.1 03/20/2025 8:28 AM HARNESS RIGGER Plan of Treatment Health Maintenance Due Date Last Done Comments Diabetic Office Visit with Foot Exam 1935 Urine Albumin 1935 HIB Vaccines (1 of 1 - Risk 1-dose series) 02/14/1937 Meningococcal Vaccine (1 - Risk 2-dose series) 11/14/1937 MenB Vaccine (1 of 4 - Increased Risk) 11/14/1945 RSV vaccine - (32-36 weeks) or 50+ years (1 - 1-dose 75+ series) 11/14/2010 Hepatitis B Vaccines (2 of 3 - Risk 3-dose series) 11/07/2020 10/10/2020 Depression Screening (Annual PHQ-2) 05/18/2024 Diabetic Eye Exam 08/11/2024 08/12/2023 COVID-19 Vaccine ( season) 2025 01/27/2024, 05/21/2023, 10/21/2022, Additional history exists Influenza Vaccine (#1) 2025 , 04/22/2023, 02/17/2022, Additional history exists Hemoglobin A1C 05/18/2025 2024, 08/16, 05/16/2024, Additional history exists Creatinine Level (Kidney Function Test) 02/20/2026 02/20/2025, 11/21/2024, 09/28/2024, Additional history exists Potassium Level 02/20/2026 02/20/2025, 09/15, 09/01/2024, Additional history exists Sodium Level 02/20/2026 02/20/2025, 09/15, 09/01/2024, Additional history exists DTaP,Tdap,and Td Vaccines (2 - Td or Tdap) 06/12/2030 06/12/2020, 04/17/2009, 12/25/1998 Zoster Vaccines Completed 10/10/2020, 06/12/2020 Pneumococcal vaccine (50+ years) Completed 12/30/2021, 01/29/2010, 05/18/2004, Additional history exists Fall Risk Screen (Annual) Completed 03/20/2025 HPV Vaccines Aged Out No longer eligi ble based on patient's age to complete this topic IPV Vaccines Aged Out No longer eligi ble based on patient's age to complete this topic Medical Devices Implanted Type Area Physical Therapy Nurse Device Identifier Shelf Expiration Date Model / Serial / Lot Stnt Synergy Xd De 2.50x32 - [id number] Implanted:Qt y: 1 on 01/10/2021 by Jeffery Arroyo M.D., Ph.D. at [facility] Cardiac Stent N/A: Coronary [employer] 04/30/2022 [id number] / / [id number] Description:Mid LAD Stnt Synergy Xd De 3.00x32 - [id number] 1 Implanted:Qt y: 1 on 01/10/2021 by Jeffery Arroyo M.D., Ph.D. at [facility] Cardiac Stent N/A: Coronary [employer] 09/27/2022 [id number] / / [id number] Description:OM Stnt Synergy Xd De 3.50x12 - [id number] Implanted:Qt y: 1 on 01/10/2021 by Jeffery Arroyo M.D., Ph.D. at [facility] Cardiac Stent N/A: Coronary [employer] 08/21/2022 [id number] / / [id number] Description:pLCx Vlv Cricket 3 29 - [id number] - [id number] Implanted:Qt y: 1 on 08/30/2024 by Claus Pham M.D. at [facility] Cardiac Valve Prosthesis N/A: Heart [employer] 03/14/2027 [id number] / [id number] / Description:Aortic Valve Lens Tcn Mnfcl Dcb00 +22.5d - [id number] - [id number] Implanted:Qt y: 1 on 09/11/2022 by Rosina Manuel M.D. at [facility]/[place] Ocular Lens Left: Eye [employer] (Previously MERRY) 07/01/2025 [id number] / [id number] / Lens Tcn Mnfcl Dcb00 +23.0d - [id number] - [id number] Implanted:Qt y: 1 on 10/28/2022 by Santosh Toth M.D., Ph.D. 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) Hypertension Essential Primary Atrial Fibrillation Unspecified (HCC) URIC ACID, S/P Routine 02/20/2025 10:36 AM CDT Stenosis Aortic Valve Acquired Coronary Stent Status Post Diabetes Mellitus Type 2 (HCC) 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) Hypertension Essential Primary Atrial Fibrillation Unspecified (HCC) THYROID-STIMULATING HORMONE-SENSITIVE (S-TSH) Routine 02/20/2025 10:36 AM CDT Stenosis Aortic Valve Acquired Coronary Stent Status Post Diabetes Mellitus Type 2 (HCC) 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) Hypertension Essential Primary Atrial Fibrillation Unspecified (HCC) NT-PRO B-TYPE NATRIURETIC PEPTIDE (BNP), S Routine 02/20/2025 10:36 AM CDT Stenosis Aortic Valve Acquired Coronary Stent Status Post Diabetes Mellitus Type 2 (HCC) 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) Hypertension Essential Primary Atrial Fibrillation Unspecified (HCC) LIPID PANEL, S Routine 02/20/2025 10:36 AM CDT Stenosis Aortic Valve Acquired Coronary Stent Status Post Diabetes Mellitus Type 2 (HCC) 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) Hypertension Essential Primary Atrial Fibrillation Unspecified (HCC) GLUCOSE, FASTING, S/P Routine 02/20/2025 10:36 AM CDT Stenosis Aortic Valve Acquired Coronary Stent Status Post Diabetes Mellitus Type 2 (HCC) 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) Hypertension Essential Primary Atrial Fibrillation Unspecified (HCC) FERRITIN, S Routine 02/20/2025 10:36 AM CDT Stenosis Aortic Valve Acquired Coronary Stent Status Post Diabetes Mellitus Type 2 (HCC) 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) Hypertension Essential Primary Atrial Fibrillation Unspecified (HCC) CBC WITH DIFFERENTIAL, B Routine 02/20/2025 10:36 AM CDT Stenosis Aortic Valve Acquired Coronary Stent Status Post Diabetes Mellitus Type 2 (HCC) 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) Hypertension Essential Primary Atrial Fibrillation Unspecified (HCC) ECG Routine 02/20/2025 9:40 AM CDT Stenosis Aortic Valve Acquired Coronary Stent Status Post Diabetes Mellitus Type 2 (HCC) 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) Hypertension Essential Primary Atrial Fibrillation Unspecified (HCC) DX CHEST AP OR PA AND LATERAL 2 VIEWS RAD - Routine (most inpatients and all outpatients) 02/20/2025 9:14 AM CDT Stenosis Aortic Valve Acquired Coronary Stent Status Post Diabetes Mellitus Type 2 (HCC) 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) Hypertension Essential Primary Atrial Fibrillation Unspecified (HCC) (TTE) 2D ECHO DOPPLER COLOR Routine 02/20/2025 8:53 AM CDT Stenosis Aortic Valve Acquired Coronary Stent Status Post Diabetes Mellitus Type 2 (HCC) 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) Hypertension Essential Primary Atrial Fibrillation Unspecified (HCC) HEMOGLOBIN A1C, B Routine 08/26/2024 5:0 2 AM CDT from Last 3 Months or Most Recently Relevant to Health Maintenance Results * Lipid Panel (02/20/2025 10:36 AM CDT) Triglycerides 64 mg/dL 02/20/2025 11:56 AM CDT DTL Comment: ----REFERENCE VALUE---- Normal: <150 mg/dL Borderline High: 150-199 mg/dL High: 200-499 mg/dL Very High: > or =500 mg/dL Cholesterol, Total 97 mg/dL 2024 11:56 AM CDT DTL Comment: ----REFERENCE VALUE---- Desirable: < 200 mg/dL Borderline High: 200 - 239 mg/dL High: > or = 240 mg/dL Cholesterol, LDL, Calculated 41 mg/dL 02/20/2025 11:56 AM CDT DTL Comment: ----REFERENCE VALUE---- Desirable: <100 mg/dL Above Desirable: 100-129 mg/dL Borderline High: 130-159 mg/dL High: 160-189 mg/dL Very High: >=190 mg/dL ----ADDITIONAL INFORMATION---- LDL cholesterol calculated using the Silva/NIH equation. Cholesterol, HDL, S 42 >=40 mg/dL 02/20/2025 11:56 AM CDT DTL Cholesterol, Non-HDL, Calculated 55 mg/dL 02/20/2025 11:56 AM CDT DTL Comment: ----REFERENCE VALUE---- Desirable: <130 mg/dL Above Desirable: 130-159 mg/dL Borderline High: 160-189 mg/dL High: 190-219 mg/dL Very High: > or =220 mg/dL Fasting (8 HR or more) Yes 02/20/2025 10:36 AM CDT DTL Blood (Blood, Venous) 02/20/2025 10:36 AM CDT 02/20/2025 10:44 AM CDT Gt Ricks P.A.-C., M.S. LAB BLOOD ADD-ON F inal Result [facility] [address] [place] [address], [facility] [address] [place] [address] * (ABNORMAL) NT-Pro B-Type Natriuretic Peptide (BNP) (02/20/2025 10:36 AM CDT) Pathologist [facility] NT-Pro BNP 836(H) <=540 pg/mL 02/20/2025 11:56 AM CDT DTL Comment: NT-proBNP values less [...] absence of renal failure. Blood (Blood, Venous) 02/20/2025 10:36 AM CDT 02/20/2025 10:44 AM CDT Gt Ricks P.A.-C., M.S. LAB BLOOD ADD-ON F inal Result [place] [address] [place] [address] * (ABNORMAL) CBC with Differential, Blood (02/20/2025 10:36 AM CDT) [facility] Hemoglobin 11.7(L) 13.2 - 16.6 g/dL 02/20/2025 11:23 AM CDT DTL Hematocrit 37.8(L) 38.3 - 48.6 % 02/20/2025 11:23 AM CDT DTL Erythrocytes 3.93(L) 4.35 - 5.65 x10(12)/L 02/20/2025 11:23 AM CDT DTL MCV 96.2 78.2 - 97.9 fL 02/20/2025 11:23 AM CDT DTL RBC Distrib Width 15.1(H) 11.8 - 14.5 % 02/20/2025 11:23 AM CDT DTL Platelet Count 172 135 - 317 x10(9)/L 02/20/2025 11:23 AM CDT DTL Leukocytes 33.9(H) 3.4 - 9.6 x10(9)/L 02/20/2025 11:23 AM CDT DTL Neutrophils 6.52(H) 1.56 - 6.45 x10(9)/L 02/20/2025 12:20 PM CDT [facility] Comment:Rechecked Lymphocytes 26.25(H) 0.95 - 3.07 x10(9)/L 02/20/2025 12:20 PM CDT DTL Monocytes 0.84(H) 0.26 - 0.81 x10(9)/L 02/20/2025 12:20 PM CDT DTL Eosinophils 0.14 0.03 - 0.48 x10(9)/L 02/20/2025 12:20 PM CDT DTL Basophils 0.11(H) 0.01 - 0.08 x10(9)/L 02/20/2025 12:20 PM CDT DTL Blood (Blood, Venous) 02/20/2025 10:36 AM CDT 02/20/2025 10:45 AM CDT tG Ricks P.A.-C., M.S. LAB BLOOD ADD-ON F inal Result Performing Organization Address City/[facility]/ZIP Co de Phone Number [facility] [address] [place] [address], [facility] [address] [place] [address] * Uric Acid (02/20/2025 10:36 AM CDT) Uric Acid, S 5.2 3.7 - 8.0 mg/dL 02/20/2025 11:56 AM CDT DTL Blood (Blood, Venous) 02/20/2025 10:36 AM CDT 02/20/2025 10:44 AM CDT Gt Ricks P.A.-C., M.S. LAB BLOOD ADD-ON F inal Result [facility] [address] [place] [address], [facility] [address] [place] [address] * S-TSH (Thyroid-Stimulating Hormone - Sensitive) (02/20/2025 10:36 AM CDT) TSH, Sensitive 3.3 0.3 - 4.2 mIU/L 02/20/2025 11:56 AM CDT DTL Blood (Blood, Venous) 02/20/2025 10:36 AM CDT 02/20/2025 10:44 AM CDT Gt Ricks P.A.-C., M.S. LAB BLOOD ADD-ON F inal Result [facility] [address] [facility] [address] [place] [address] * (ABNORMAL) Glucose, Fasting (02/20/2025 10:36 AM CDT) Glucose, P 138(H) 70 - 100 mg/dL 02/20/2025 11:17 AM CDT DTL Last Intake 17 hr 02/20/2025 10:44 AM CDT DTL Blood (Blood, Venous) 02/20/2025 10:36 AM CDT 02/20/2025 10:44 AM CDT Gt iRcks P.A.-C., M.S. LAB BLOOD NON ADD- ON Final Result [facility] [address] [place] [address] * Ferritin (02/20/2025 10:36 AM CDT) Ferritin, S 183 31 - 409 mcg/L 02/20/2025 11:56 AM CDT DTL Blood (Blood, Venous) 02/20/2025 10:36 AM CDT 02/20/2025 10:44 AM CDT Gt Ricks P.A.-C., M.S. LAB BLOOD ADD-ON F inal Result [facility] [address] [place] [address], [place] [facility] [address] [place] [address] * (ABNORMAL) Comprehensive Metabolic Panel (02/20/2025 10:36 AM CDT) Potassium, S 5.2 3.6 - 5.2 mmol/L 02/20/2025 11:56 AM CDT DTL Sodium, S 139 135 - 145 mmol/L 02/20/2025 11:56 AM CDT DTL Chloride, S 103 98 - 107 mmol/L 02/20/2025 11:56 AM CDT DTL Bicarbonate, S 27 22 - 29 mmol/L 02/20/2025 11:56 AM CDT DTL Anion Gap 9 7 - 15 02/20/2025 11:56 AM CDT DTL BUN (Blood Urea Nitrogen), S 22 8 - 24 mg/dL 02/20/2025 11:56 AM CDT DTL Creatinine 1.13 0.74 - 1.35 mg/dL 02/20/2025 11:56 AM CDT DTL Estimated GFR (eGFR) 62 >=60 mL/min/BS A 02/20/2025 11:56 AM CDT DTL Comment: Estimated GFR calculated using the 2020 CKD_EPI creatinine equation. Calcium, Total, S 9.4 8.8 - 10.2 mg/dL 02/20/2025 11:56 AM CDT DTL Glucose, S CANCELED mg/dL 02/20/2025 10:44 AM CDT DTL Comment: Duplicate test request. Result canceled by the ancillary. Protein, Total, S 6.0(L) 6.3 - 7.9 g/dL 02/20/2025 11:56 AM CDT DTL Albumin, S 3.9 3.5 - 5.0 g/dL 02/20/2025 11:56 AM CDT DTL Aspartate Aminotransferase (AST), S 22 8 - 48 U/L 02/20/2025 11:56 AM CDT DTL Alkaline Phosphatase, S 137(H) 40 - 129 U/L 02/20/2025 11:56 AM CDT DTL Alanine Aminotransferase (ALT), S 18 7 - 55 U/L 02/20/2025 11:56 AM CDT DTL Bilirubin, Total, S 0.5 0.0 - 1.2 mg/dL 02/20/2025 11:56 AM CDT DTL Blood (Blood, Venous) 02/20/2025 10:36 AM CDT 02/20/2025 10:44 AM CDT Gt Ricks P.A.-C., M.S. LAB BLOOD ADD-ON F inal Result [facility] [address] [place] [address], [facility] [address] [place] [address] * ECG 12 Lead (02/20/2025 9:40 AM CDT) Ventricular Rate ECG/Min 72 BPM MUSE W[place] Interval 208 ms MUSE QRSD Interval 158 ms MUSE QT Interval 428 ms MUSE QTC Interval 468 ms MUSE P Jamul 32 degrees MUSE R Jamul -62 degrees MUSE T Wave Jamul 1 degrees MUSE 02/20/2025 9:40 AM CDT 02/20/2025 9:46 AM CDT Impressions MUSE - 02/20/2025 9:46 AM CDT Sinus rhythm with 1st degree A-V block Premature ventricular complexes Right bundle branch block with secondary ST-T abnormalities Left anterior fascicular block Bifascicular block When compared with ECG of 28-Sep-2024 14:35, [place] interval has increased Premature ventricular complexes are now present Right bundle branch block is now present Reviewed by KIA Syed Narrative Procedure Note Nick Toney M.D., Ph.D. - 02/20/2025 IMPRESSION: Sinus rhythm with 1st degree A-V block Premature ventricular complexes Right bundle branch block with secondary ST-T abnormalities Left anterior fascicular block Bifascicular block When compared with ECG of 28-Sep-2024 14:35, [place] interval has increased Premature ventricular complexes are now present Right bundle branch block is now present Reviewed by KIA Syed Gt Ricks P.A.-C., M.S. ECG ORDERABLES Fi nal Result MUSE NA * DX Chest AP or PA and Lateral 2 Views (02/20/2025 9:14 AM CDT) Anatomical Region Laterality Modality Chest, Thoracic RST LOS, Tho racic ARZ LOS, Thoracic FLA LOS N/A Digital Radiography Impressions 02/20/2025 10:43 AM CDT No significant change since 09/28/2024. Bilateral lung [...] midthoracic severe vertebral body compression and kyphosis. Narrative 02/20/2025 10:43 AM CDT EXAM: DX CHEST AP OR PA AND LATERAL 2 VIEWS Procedure Note Toni Scott M.D. - 02/20/2025 EXAM: DX CHEST AP OR PA AND LATERAL 2 VIEWS IMPRESSION: No significant change since 09/28/2024. Bilateral lung marking accentuationfrom shallow inspiration. Peripheral basilar predominant reticular patterninterstitial fibrosis better shown on 12/31/2020 CT, as was tractionbronchiectasis, possible usual interstitial pneumonia (UIP) pattern. TAVR.Coronary artery stenting. Fat pad along LV apex. Calcified tortuous aorta.Right axillary and upper quadrant surgical clips. Spine degenerativechange with midthoracic severe vertebral body compression and kyphosis. Gt Ricks P.A.-C., M.S. IMG DIAGNOSTIC ARA GING PROCEDURES Final Result * (TTE) 2D ECHO DOPPLER COLOR (02/20/2025 8:53 AM CDT) Pathologist [facility] Ejection Fraction 57 MC CV EIMS LV End-Diastolic Diameter 55 MC CV EIMS LV End-Systolic Diameter 39 MC CV EIMS LV End-Diastolic Volume 164 MC CV EIMS LV End-Systolic Volume 71 MC CV EIMS MV E Velocity 0.6 MC CV EIMS MV A Velocity 1.2 MC CV EIMS MV E/A 0.5 MC CV EIMS MV e' Velocity Medial 0.04 MC CV EIMS MV E/e' Medial 15 MC CV EIMS Left ventricular stroke volume index 51 MC CV EIMS Cardiac Output 5.97 MC CV EIMS Cardiac Index 3.28 MC CV EIMS LV Global Longitudinal Strain -20 MC CV EIMS TR Vmax 2.7 MC CV EIMS Estimated RA Pressure (Echo RAP) 5 MC CV EIMS RV Systolic Pressure (with Echo RAP) 34 MC CV EIMS AV mean gradient 9 MC CV EIMS Aortic valve area 1.76 MC CV EIMS Aortic Valve Area Index 0.97 MC CV EIMS Aortic Valve Dimensionless Index 0.36 MC CV EIMS Aortic Valve Systolic Peak Velocity 2 MC CV EIMS Anatomical Region Laterality Modality Echocardiography 02/20/2025 7:12 AM CDT Impressions 02/20/2025 8:50 AM CDT Last full echocardiogram performed 08/22/2024. LEFT VENTRICLE:Mildly enlarged left ventricular chamber size. Abnormal left ventricular geometry with eccentric left ventricular hypertrophy. Calculated 2-D biplane volumetric left ventricular ejection fraction of 57%. Grade 1a/3 left ventricular diastolic dysfunction, consistent with mildly elevated left ventricular filling pressure. RIGHT VENTRICLE:Normal right ventricular chamber size by visual estimate. Normal right ventricular systolic function. Right ventricular systolic pressure 34 mmHg (right atrial pressure of 5 mmHg). ATRIA:Enlarged left atrial size by visual estimate. Normal right atrial size by visual estimate. 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 Aortic valve prosthesis systolic mean Doppler gradient 9 mmHg. Aortic valve prosthetic orifice area by Doppler: 1.76 cm2 No aortic valve prosthetic regurgitation. Trivial aortic valve periprosthetic regurgitation. Thickened mitral valve. Mitral chordal systolic anterior motion. Mild mitral valve regurgitation. Normal pulmonary valve. Mild pulmonary valve regurgitation. Normal tricuspid valve. Mild tricuspid valve regurgitation. OTHER ECHO FINDINGS:Small inferior vena cava size with normal inspiratory collapse (>50%). No intracardiac mass or thrombus, but the left atrial appendage cannot be visualized adequately with transthoracic echo to exclude thrombus in this location. Tiny circumferential pericardial effusion. For the complete report, see the Order-Level Documents. Narrative 02/20/2025 8:50 AM CDT For the complete report, see the Order-Level Documents. Hemodynamics Heart Rate: 67 BPM Blood Pressure: 187 / 68 mmHg ECG: Sinus rhythm Final Impressions 1. [...] Side by side comparison of images performed. Procedure Note Tarsha German M.D., Ph.D. - 02/20/2025 For the complete report, see the Order-Level Documents. Hemodynamics Heart Rate: 67 BPM Blood Pressure: 187 / 68 mmHg ECG: Sinus rhythm Final Impressions 1. Status post 29mm [place] Cricket 3 pericardial aortic valveprosthesis. 2. Aortic valve prosthesis systolic mean Doppler gradient 9 mmHg. 3. Trivial aortic valve periprosthetic regurgitation. 4. Mildly enlarged left ventricular chamber size, calculated 2-D biplanevolumetric ejection fraction of 57%. 5. Abnormal left ventricular geometry with eccentric left ventricularhypertrophy, grade 1 a/3 diastolic dysfunction, consistent with mildlyelevated filling pressure. 6. Normal right ventricular chamber size, normal systolic function, rightventricular systolic pressure 34 mmHg (right atrial pressure of 5 mmHg). 7. Tiny circumferential pericardial effusion. 8. Compared to the report of 09/28/2024 the following changes haveoccurred: The calculated left ventricular ejection fraction has improved.Side by side comparison of images performed. Findings Last full echocardiogram performed 08/22/2024. LEFT VENTRICLE:Mildly enlarged left ventricular chamber size. Abnormalleft ventricular geometry with eccentric left ventricular hypertrophy.Calculated 2-D biplane volumetric left ventricular ejection fraction of57%. Grade 1a/3 left ventricular diastolic dysfunction, consistent withmildly elevated left ventricular filling pressure. RIGHT VENTRICLE:Normal right ventricular chamber size by visual estimate.Normal right ventricular systolic function. Right ventricular systolicpressure 34 mmHg (right atrial pressure of 5 mmHg). ATRIA:Enlarged left atrial size by visual estimate. Normal right atrialsize by visual estimate. 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 Aortic valve prosthesis systolic mean Doppler gradient 9 mmHg.Aortic valve prosthetic orifice area by Doppler: 1.76 cm2 No aortic valveprosthetic regurgitation. Trivial aortic valve periprostheticregurgitation. Thickened mitral valve. Mitral chordal systolic anteriormotion. Mild mitral valve regurgitation. Normal pulmonary valve. Mildpulmonary valve regurgitation. Normal tricuspid valve. Mild tricuspidvalve regurgitation. OTHER ECHO FINDINGS:Small inferior vena cava size with normal inspiratorycollapse (>50%). No intracardiac mass or thrombus, but the left atrialappendage cannot be visualized adequately with transthoracic echo toexclude thrombus in this location. Tiny circumferential pericardialeffusion. For the complete report, see the Order-Level Documents. Gt Ricks P.A.-C., M.S. CV ECHO PROCEDURES Final Result * (ABNORMAL) Hemoglobin A1c (08/26/2024 5:02 AM CDT) Hemoglobin A1c, B 6.3(H) 4.0 - 5.6 % 08/26/2024 6:36 AM CDT DTL Comment: Hemoglobin A1c values of 5.7-6.4 percent indicate an increased risk for developing diabetes mellitus. In diabetic patients, HbA1c goals should be discussed with healthcare provider. Blood (Blood, Venous) 08/26/2024 5:02 AM CDT 08/26/2024 5:54 AM CDT Christian Roman P.A.-C., M.S. LAB BLOOD ADD-ON F inal Result [facility] [address] [place] [address], [place] DTL [facility] [address] [place] [address] from Last 3 Months or Most Recently Relevant to Health Maintenance Insurance MEDICARE [facility] Advance Directives For more information, please contact: [phone] * Full Code (Latest Code Status on File) Date Activated Date Inactivated Comments 08/20/2024 7:10 PM 09/01/2024 1:54 PM Question Answer Comments Full Code: Discussed * Full Code Date Activated Date Inactivated Comments 01/10/2021 12:05 PM 01/11/2021 2:12 PM Question Answer Comments Full Code: Discussed Care Teams Hop Farm Worker Relationship Specialty Start Date End Date Elsewhere, Pcp PCP - General Family Medicine 01/10/21
--- OUTSIDE RECORDS SUMMARY | 2025-04-10 08:06 | XMS_ITS | Encounter Summary ---
Author Organization [facility] Address [address] [place] [id number] Care Team Providers Care Collet Driller Name Role Phone Elsewhere, Pcp Primary Care Provider Unavailabl e Encounter Details Date Type Department Care Team (Late st Contact Info) Description 01/24/2025 Clinical Communication Department of Ophthalmology in [place], [place] [address] [place] [address] Prescheduling, Provider Social History Tobacco Use Types Packs/Day Years Used Date Smoking Tobacco: Former Cigarettes 1 17 0 10/21/1950 - 10/31/1967 Smokeless Tobacco: Never Alcohol Use Standard Drinks/Week Comments Yes 1 (1 standard drink = 0.6 oz pur e alcohol) rarely [facility] Utilities Answer Date Recorded In the past 12 months has e ki work, gas, oil, or water [employer] threatened to shut off services in your [...] your living situation today? I have a [facility] place to live 08/21/2024 Education Answer Date Recorded What is the highest level of school you have completed or the highest degree you have received? 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
--- OUTSIDE RECORDS SUMMARY | 2025-04-10 08:06 | XMS_ITS | Encounter Summary ---
Author Organization [facility] Address [address] [place] [address] Care Team Providers Care Towel Sewer Name Role Phone Elsewhere, Pcp Primary Care Provider Unavailabl e Encounter Details Date Type Department Care Team (Latest Contact Info) Description 03/21/2025 Clinical Communication Department of Cardiovascular Medicine in [place], [place] [address] [place] [address] Gt Ricks P.A.-C., M.S. 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 - 03/22/2025 10:49 AM VEHICLE WINDOW TINTER SUBJECTIVE CHIEF COMPLAINT / REASON FOR CALL Contacted family Medicine [facility] Information Discussed Patient was seen by Gt Ricks MESERET - Cardiology on ThursdayMarch 20. At that time, Patient was experiencing significant pain left hip into the leg from a recent fall a couple weeks ago. At that time she reported, he had no neurological discrepancies with the exceptionof numbness, significant weakness and inability to properly bear weight on the left leg. PLAN I called and communicated Ms. Ricks's concern for patient's safety and well- being. I spoke with the medical secretary receptionist at family Medicine at [facility] since he will be seeing a provider Dr. Bridget Griffith this coming Thursday. Ms. Ricks suggested that they do further imaging since his x-ray that he had locally did not show a fracture. She recommended MRI of the left leg and a lumbar spine. A message was sent to the local covering provider we will be seeing him this Thursday. Disposition/Recommendation: see above Information/Education: not applicable Caller agreeable to plan of care: yes The following references were used: nursing clinical judgement and providers recommendation CLE WINDOW TINTER documented in this encounter Plan of Treatment Not on file documented as of this encounter Visit Diagnoses Not on filedocumented in this encounter Care Teams Towel Sewer Relationship Specialty Start Date End Date Elsewhere, Pcp PCP - General Family Medicine 01/10/21 documented as of this encounter
--- OUTSIDE RECORDS SUMMARY | 2025-04-10 08:06 | XMS_ITS | Clinical Summary ---
Author Organization [facility] Address [address] [place] [address] Care Team Providers Care Leather Stitcher Name Role Phone Luiz Bullock MD Primary [...] 1 TABLET EVERY DAY WITH FOOD 03/25/20 Active albuterol HFA (PRO-AIR; VENTOLIN; PROVENTIL) 90 mcg/actuation inhalerIndications :Cough, unspecified type Inhale 1-2 Puffs by mouth every 4 hours if needed for Shortness Of Breath or Wheezing. 1 Each 1 09/25/19 Active inhalational spacing deviceIndications: Cough, unspecified type For home use. 1 Each 09/25/19 Active CPAPIndications:OS A (obstructive sleep apnea) RESMED [...] needed. Active esomeprazole delayed release capsule 40 mgIndications:Manager Reimbursement josiah GERD TAKE 1 CAPSULE BY MOUTH EVERY DAY 90 Capsule 3 09/17/19 25 Active spironolactone 25 mg tabletIndications: Benign essential HTN Take 1 Tablet (25 mg) by mouth once daily in the morning. 90 Tablet 1 11/16/19 25 Active valsartan 80 mg tabletIndications: HTN (hypertension) Take 1 Tablet (80 mg) by mouth once daily. 90 Tablet 3 11/16/19 25 Active acetaminophen (TYLENOL) 500 mg capsule Take 500-1,000 mg by mouth every 6 hours if needed. 07/22/19 25 Active cetirizine (ZYRTEC) 10 mg tablet Take 10 mg by mouth. 09/21/19 24 Active oxyCODONE (ROXICODONE) 5 mg immediate release tabletIndications: Closed fracture of body of sternum with routine healing, subsequent encounter Take 0.5-1 Tablets (2.5-5 mg) by mouth every 4 hours if needed for Pain. 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 90 Tablet 02/22/20 25 Active traMADoL (ULTRAM) 50 mg tabletIndications: Sacral back pain,Lumbar radiculopathy Take 0.5 Tablets (25 mg) by mouth every 6 hours if needed for Pain (severe pain). 10 Tablet 03/24/20 25 Active predniSONE (DELTASONE) 20 mg tabletIndications: Sacral back pain,Lumbar radiculopathy Take 1 Tablet (20 mg) by mouth once daily with a meal. 5 Tablet 03/28/20 25 Active cefadroxil (DURICEF) 500 mg capsuleIndications :Infected skin tear Take 1 Capsule (500 mg) by mouth two times daily for 5 days. 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 nails 06/01/2024 Atherosclerotic heart diseas e of [place] coronary artery with other forms of angina [...] Encounters Date Type Department Care Team Description 03/31/2025 Orders Only [facility] Scanner 1 scan: (1-Ord) [facility], ABDOMEN PELVIS W CON, 03/31/2025 03/31/2025 Nurse Triage [facility] [address] [place] [address] Slime Griffith MD Abdominal Pain 03/24/2025 4:30 PM AUTISTIC TEACHER Ancillary Procedure [facility] [address] [place] [address] 03/24/2025 3:05 PM AUTISTIC TEACHER Office Visit [facility] [address] [place] [address] Slime Griffith MD Follow Up (falls/Left side is worse, pain goes down his leg making it feel like knee is gong to buckle. /Walking has worsened. ); Immunization/Inject ion 03/24/2025 Travel 03/22/2025 Telephone [facility] [address] [place] [address] Luiz Bullock MD Falls (Multiple Falls - requesting further imaging Carmen @ N) 03/14/2025 12:30 PM CDT Ancillary Procedure [facility] [address] [place] [address] 03/14/2025 12:15 PM CDT Ancillary Procedure [facility] [address] [place] [address] 03/14/2025 11:05 AM CDT Office Visit [address] [address] Slime Griffith MD Fall (Fell 10 days ago - lost balance opening the door to his house and fell backwards onto tailbone /Hard to urinate standing up/Left hand injury /Has tried Tylenol for pain management ) 03/14/2025 Travel 02/17/2025 Refill [facility] [address] [place] [address] Luiz Bullock MD Refill Request (Jardiance) 01/17/2025 Nurse Triage [address] [address] Luiz Bullock MD Abdominal Pain 01/12/[address] [address] Luiz Bullock MD Refill Request (Accu-chek Guide Test Strips) from Last 3 Months Immunizations Immunization Administration Dates Next Due AMB INFLUENZA IIV3 (AGE 65+ YRS) PF (Flu Clinic Only) 03/04/2019 AMB Influenza, IIV3 (Age >=3 years)(Flu Clinic Only) 03/09/2012,03/07/2008 AMB Influenza, IIV4 PF (=>6 mos Flulaval,Fluzone Fluarix)(Flu Clinic Only) 04/08/2016 Amb Influenza, Inact (High-d ose) (Flu Clinic Only) 02/09/2014 COVID-19 VACCINE SPIKEVAX (M ODERNA 50MCG/0.5ML) 12YO+ PFS 03/24/2025,05/21/2023 COVID-19 vaccine (KaiimaBio NTech 30mcg/0.3mL) 12YO+ BIVALENT PF, MDV 10/21/2022 COVID-19 vaccine (PfizerNauchime.orgBio NTech 30mcg/0.3mL) 12YO+ CORBY-SUCROSE PF, MDV 08/22/2021 COVID-19 vaccine (Beeline NTech 30mcg/0.3mL) PF, MDV 07/24/2020,07/03/2020 Hepatitis B (Adult) 10/10/2020 Influenza Virus, Unspecified 02/16/2012, 02/16/2008,02/15/2007,2002 Influenza, High-dose Inactivated 01/27/2024,01/2015,02/09/2014 Influenza, High-dose Quadriv alent Inactivated 02/17/2022,03/07/2021 Influenza, IIV3 (Age 6-35 mos) 02/24/2011,2009 Influenza, IIV3 (Age >=3 years) 02/23/20 13,03/09/2012,02/24/2011,2009,01/17/2009,03/07/2008,02/16/2008,1 ,02/15/2007,03/02/2006, 005,02/29/2004,03/29/2003,03/14/2003 Influenza, IIV4 04/08/2016 Influenza, Inactivated AIIV4 (Age 65+ Years) Preserv Free 04/22/2023,03/06/2020 Influenza, Inactivated IIV3 (Age 65+ Years) Preserv Free 03/24/2025,02/03/2018,02/10/2017 Pneumococcal Conj 20-valent (Prevnar 20) 12/30/2021 Pneumococcal [...] isolated from those around you? 0 2024 Alcohol Use Answer Date Recorded How often do you have a drink containing alcohol ? 0 03/24/2025 How many drinks containing a lcohol do you have on a typical day when you are drinking? 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 file N ot on file Not on file Obstetrics History Last Filed Vital Signs Vital Sign Reading Time Taken Comments Blood Pressure 134/74 03/24/2025 3:00 PM AUTISTIC TEACHER Pulse 76 03/24/2025 3:00 PM AUTISTIC TEACHER Temperature 36.5 C (97.7 F) 09/15/2023 11:54 AM CDT Respiratory Rate 16 04/02/2023 1:19 PM AUTISTIC TEACHER Oxygen Saturation 97% 03/24/2025 3:00 PM AUTISTIC TEACHER Inhaled Oxygen Concentration - - Weight 72.8 kg (160 lb 8 oz) 12/12/2024 2:08 PM CDT Height 171 cm (5' 7.32) 03/10/2024 11:29 AM CDT Body Mass Index 24.9 03/10/2024 11:29 AM CDT Plan of Treatment Health Maintenance Due Date Last Done Comments RSV vaccine for adults or (1 - 1-dose 75+ series) 11/14/2010 Hepatitis B series for 19+ ( 2 of 3 - 19+ 3-dose series) 11/07/2020 10/10/2020 Depression screening for age 12+ 01/13/2025 01/14/2024, 12/29/2022, 12/26/2022, Additional history exists Medicare Wellness for age 65+ 01/14/2025, 12/26/2022, 05/03/2020 BMI (ht and wt on same day) for age 18+ 03/10/2025 03/10/2024, 01/14/2024, 12/26/2022, Additional history exists Tetanus booster 06/12/2030 06/12/2020, 12/0 05/2008, 12/25/1998 Zoster (shingles) series for age 50+ Completed 10/10/2020, 06/12/2020 Pneumococcal series for age 50+ Completed 12/30/2021, 01/29/2010, 05/18/2004, Additional history exists Influenza Vaccine Completed 03/24/2025, , 04/22/2023, Additional history exists Procedures Procedure Name Priority Date/Time Associated Diagnosis Comments SCAN-CT INTERPRETATION 12:[address] SPINE LUMBAR WO MARLENE 03/24/2025 4: 19 PM AUTISTIC TEACHER Accidental fall, initial encounter Sacral back pain Lumbar radiculopathy XR SACRUM AND COCCYX MINIMUM 2 VIEWS Routine 03/14/2025 12:26 PM CDT Cellulitis of skin XR SPINE LUMBAR 3 VIEWS Routine 03/14/2025 12:25 PM CDT Cellulitis of skin from Last 3 Months Results * SCAN-CT INTERPRETATION (03/31/2025 12:00 AM AUTISTIC TEACHER) Anatomical Region Laterality Modality Other us Scanner OTHER Final Result * CT SPINE LUMBAR WO (03/24/2025 4:19 PM AUTISTIC TEACHER) Anatomical Region Laterality Modality LUMBAR SPINE, Spine, Spine Compu josh Tomography 03/24/2025 9:13 PM AUTISTIC TEACHER Impressions 03/24/2025 9:13 PM AUTISTIC TEACHER 1. No radiographic evidence of acute osseous injury 2. 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 3. [id number]-yi-ecyuvwpu scattered degenerative changes of the lumbar spine. Please note that all CT scans at this facility use dose modulation, iterative reconstruction, and/or weight-based dosing when appropriate to reduce radiation dose to as low as reasonably achievable. Dictated by Peña Hale MD @ 03/24/2025 9:13:07 PM (Electronically Signed) Narrative 03/24/2025 9:13 PM AUTISTIC TEACHER For Patients: As a result of the Cures Act, medical imaging exams and procedure reports are released immediately into your electronic medical record. You may view this report before your referring provider. If you have questions, please contact your health care provider. INDICATION: Low back pain. Trauma. TECHNIQUE: Non-contrast axial CT of the lumbar spine with coronal and sagittal reconstructions. No comparisons. FINDINGS: Chronic bilateral L5 spondylolysis with minimal anterolisthesis of L5 on S1 the overall stature and alignment of the lumbar spine is within normal limits. No evidence of bony fragments narrowing the central canal or visualized neural foramina. Yvki-xd-dwuewehy scattered degenerative changes of the lumbar spine. Dense calcification of the abdominal aorta compatible with advanced atherosclerotic disease. Grossly, the visualized portions of the upper sacroiliac joints appear within normal limits. Procedure Note Petey Hale, DO - 03/24/2025 For Patients: As a result of the Cures Act, medical imagingexams and procedure reports are released immediately into your electronicmedical record. You may view this report before your referring provider.If you have questions, please contact your health care provider. INDICATION: Low back pain. Trauma. TECHNIQUE: Non-contrast axial CT of the lumbar spine with coronal and sagittalreconstructions. No comparisons. FINDINGS: Chronic bilateral L5 spondylolysis with minimal anterolisthesis of L5 onS1 the overall stature and alignment of the lumbar spine is within normallimits. No evidence of bony fragments narrowing the central canal orvisualized neural foramina. Ucvr-[id number]-pxsxygvb scattered degenerativechanges of the lumbar spine. Dense calcification of the abdominal aortacompatible with advanced atherosclerotic disease. Grossly, the visualizedportions of the upper sacroiliac joints appear within normal limits. IMPRESSION: 1. No radiographic evidence of acute osseous injury 2. Chronic bilateral L5 spondylolysis with minimal anterolisthesis L5 onS1. 3. Cosr-sh-ithppdwi scattered degenerative changes of the lumbar spine. Please note that all CT scans at this facility use dose modulation,iterative reconstruction, and/or weight-based dosing when appropriate toreduce radiation dose to as low as reasonably achievable. Dictated by Peañ Hale MD @ 03/24/2025 9:13:07 PM (Electronically Signed) us Slime Griffith MD CT Fi nal Result * XR SACRUM AND COCCYX MINIMUM 2 VIEWS (03/14/2025 12:26 PM CDT) Anatomical Region Laterality Modality Pelvis, SACRUM, COCCYX Computed Radiography 03/14/2025 1:43 PM CDT Narrative 03/14/2025 1:43 PM CDT For Patients: As a result of the Cures Act, medical imaging exams and procedure reports are released immediately into your electronic medical record. You may view this report before your referring provider. If you have questions, please contact your health care provider. Indication: Cellulitis of skin Technique: Three views sacrum and coccyx Comparison: None Findings: Vascular calcifications. Sacrococcygeal alignment normal. No fracture. Postop changes right proximal femur. Intact pubic rami. Impression: No acute or significant findings. Dictated by Bertrand Gordon MD @ 03/14/2025 1:43:54 PM (Electronically Signed) Procedure Note Bertrand Gordon MD - 03/14/2025 For Patients: As a result of the Cures Act, medical imagingexams and procedure reports are released immediately into your electronicmedical record. You may view this report before your referring provider.If you have questions, please contact your health care provider. Indication: Cellulitis of skin Technique: Three views sacrum and coccyx Comparison: None Findings: Vascular calcifications. Sacrococcygeal alignment normal. No fracture.Postop changes right proximal femur. Intact pubic rami. Impression: No acute or significant findings. Dictated by Bertrand Gordon MD @ 03/14/2025 1:43:54 PM (Electronically Signed) Slime Griffith MD GENERAL IMAGING Fi nal Result * XR SPINE LUMBAR 3 VIEWS (03/14/2025 12:25 PM CDT) Anatomical Region Laterality Modality LUMBAR SPINE Computed Radiogr aphy 03/14/2025 1:42 PM CDT Impressions 03/14/2025 1:42 PM CDT Lower lumbar spine facet degeneration. Possible pars defects L5. No spondylolisthesis. Colonic ileus. Dictated by Bertrand Gordon MD @ 03/14/2025 1:42:40 PM (Electronically Signed) Narrative 03/14/2025 1:42 PM CDT For Patients: As a result of the Cures Act, medical imaging exams and procedure reports are released immediately into your electronic medical record. You may view this report before your referring provider. If you have questions, please contact your health care provider. INDICATION: Cellulitis of skin TECHNIQUE: 3-view lumbar spine. COMPARISON: none FINDINGS: Dense vascular calcifications. Postop changes right upper quadrant. Gaseous distention of multiple bowel loops. No vertebral body compression fracture. Facet degeneration lower lumbar spine. Possible pars defects at L5. Disc spaces relatively maintained. Procedure Note Bertrand Gordon MD - 03/14/2025 For Patients: As a result of the Century Cures Act, medical imagingexams and procedure reports are released immediately into your electronicmedical record. You may view this report before your referring provider.If you have questions, please contact your health care provider. INDICATION: Cellulitis of skin TECHNIQUE: 3-view lumbar spine. COMPARISON: none FINDINGS: Dense vascular calcifications. Postop changes right upper quadrant.Gaseous distention of multiple bowel loops. No vertebral body compressionfracture. Facet degeneration lower lumbar spine. Possible pars defects atL5. Disc spaces relatively maintained. IMPRESSION: Lower lumbar spine facet degeneration. Possible pars defects L5. Nospondylolisthesis. Colonic ileus. Dictated by Bertrand Gordon MD @ 03/14/2025 1:42:40 PM (Electronically Signed) Slime Griffith MD GENERAL IMAGING Fi nal Result from Last 3 Months Insurance MEDICARE PB ONLY [facility] FED EMP MEDICARE PART A HB ONLY MEDICARE PART B HB ONLY [facility] [address] [place] [address] Care Teams Leather Stitcher Relationship Specialty Start Date End Date Luiz Bullock MD [address] [place] [address] PCP - General Family Practice 07/03/20
--- NOTE | 2025-04-10 09:29 | CRLHL7_ITS ---
For Patients: As a result of the Cures Act, medical imaging exams and procedure reports are released immediately into your electronic medical record. You may view this report before your referring provider. If you have questions, please contact your health care provider. INDICATION: Fall, pain, felt a pop COMPARISON: 09/14/2024 TECHNIQUE: AP pelvis, AP left hip, frog-leg lateral left hip. FINDINGS: No acute fracture. Prior right fracture fixation with a hip screw and short intramedullary deidre. These are in good position as included within the field of view. Normal hip joint alignment. Moderate hip osteoarthritis. Bilateral SI osteoarthritis. Disc and facet degeneration in the lower lumbar spine. No destructive focal bone lesions. Heavy atherosclerosis. IMPRESSION: No acute findings in the pelvis or left hip. Dictated by Jane Cox MD @ 04/10/2025 10:15:10 AM (Electronically Signed)
--- NOTE | 2025-04-10 10:03 | ED.GENADULT ---
HPI - General Adult General Chief complaint: Fall/Minor Trauma Stated complaint: recently fell and hip popped/ unable to walk Time Seen by Provider: 04/10/25 09:18 Source: patient Mode of arrival: wheelchair Limitations: no limitations History of Present Illness HPI narrative: 89-year-old male coming in today complaining of left hip pain. Patient states that approximately 1 month ago he fell at home onto his buttocks and was having buttock and left hip pain. He was evaluated in the clinic, states he had x-rays and CT which were unremarkable. He was treated with prednisone for potential sciatica pain. He states that he did feel better after a couple of weeks. However yesterday he was at home he stood up from his bed and felt a pop in the same left hip and has not been able to walk since. He states that if he is lying down he has no pain. He can move his leg while lying without discomfort. However he cannot put any weight on that leg. He denies any saddle anesthesia. Pain does not radiate down the leg. No fevers or chills. No nausea vomiting. He denies any abdominal pain. The pain does not go up his back. Patient lives at home with his daughter. Past medical history significant for regurgitation of multiple valves, coronary artery disease, CLL, congestive heart failure, hypertension, atrial fibrillation on chronic anticoagulation therapy, diabetes type 2. Related Data Home Medications ?Medication ?Instructions ?Recorded ?Confirmed atorvastatin 20 mg tablet 20 mg PO HS 03/26/22 12/10/24 carvedilol 25 mg tablet 25 mg PO BID 03/26/22 12/10/24 apixaban 2.5 mg tablet (Eliquis) 2.5 mg PO BID 08/27/22 12/10/24 ascorbic acid (vitamin C) 500 mg 500 mg PO DAILY 08/27/22 12/10/24 tablet aspirin 81 mg chewable tablet 1 tab PO DAILY 08/27/22 12/10/24 empagliflozin 25 mg tablet 25 mg PO DAILY 08/27/22 12/10/24 (Jardiance) vitamin E mixed 400 unit capsule 400 unit PO DAILY 08/27/22 12/10/24 cetirizine 10 mg tablet 10 mg PO DAILY 09/21/23 09/14/24 esomeprazole magnesium 40 mg 40 mg PO DAILY 08/19/24 09/14/24 capsule,delayed release (Nexium) omeprazole 20 mg capsule,delayed 20 mg PO BID 12/10/24 12/10/24 release prednisone 20 mg tablet 20 mg PO DAILY 03/31/25 03/31/25 famotidine 20 mg tablet 20 mg PO DAILY 04/10/25 04/10/25 Previous Rx's ?Medication ?Instructions ?Recorded acetaminophen 500 mg capsule 500 mg PO Q6H PRN pain #100 caps 07/21/24 sennosides 8.6 mg tablet (Senna 17.2 mg (2 x 8.6 mg) PO BID PRN 07/21/24 Lax) constipation #100 tabs spironolactone 25 mg tablet 12.5 mg (1/2 x 25 mg) PO DAILY #30 07/22/24 tabs valsartan 80 mg tablet 160 mg (2 x 80 mg) PO HS #60 tabs 07/25/24 Allergies Allergy/AdvReac Type Severity Reaction Status Date / Time prednisone Allergy Unknown Verified 04/10/25 08:24 amlodipine Allergy Verified 03/31/25 13:31 metformin AdvReac Intermediate Diarrhea Verified 03/31/25 13:31 Review of Systems Status of ROS: Reports: 10 or more systems reviewed and unremarkable except as noted in History and below [facility] Medical History ROSA ISELA (obstructive sleep apnea) (04/17/20) ?G47.33 - Obstructive sleep apnea (adult) (pediatric) (ICD-10) 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) ?J84.9 - Interstitial pulmonary disease, unspecified (ICD-10) Interstitial lung disease (08/22/21) ?J84.9 - Interstitial pulmonary disease, unspecified (ICD-10) Hyperlipidemia (11/22/12) ?E78.5 - Hyperlipidemia, unspecified (ICD-10) Esophageal reflux (10/02/06) ?K21.9 - Gastro-esophageal reflux disease without esophagitis (ICD-10) 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) ?C91.10 - Chronic lymphocytic leukemia of B-cell type not having achieved remission (ICD-10) Anemia (12/07/18) ?D64.9 - Anemia, unspecified (ICD-10) Sickle cell disease (01/02/21) ?D57.1 - Sickle-cell disease without crisis (ICD-10) Irritable bowel syndrome with diarrhea (08/22/21) ?K58.0 - Irritable bowel syndrome with diarrhea (ICD-10) Hypertensive kidney disease with stage 3a chronic kidney disease (01/10/21) ?I12.9 - Hypertensive chronic kidney disease with stage 1 through stage 4 chronic kidney disease, or unspecified chronic kidney disease (ICD-10) ?N18.31 - Chronic kidney disease, stage 3a (ICD-10) Hemorrhagic shock (03/23/22) ?R57.8 - Other shock (ICD-10) Retinal hemorrhage, bilateral (01/02/21) ?H35.63 - Retinal hemorrhage, bilateral (ICD-10) Gynecomastia (08/06/20) ?N62 - Hypertrophy of breast (ICD-10) Dyspnea on exertion (01/02/21) ?R06.09 - Other forms of dyspnea (ICD-10) Chronic migraine with aura, not intractable, without status migrainosus (01/01/21) ?G43.E09 - Chronic migraine with aura, not intractable, without status migrainosus (ICD-10) BRBPR (bright red blood per rectum) (03/23/22) ?K62.5 - Hemorrhage of anus and rectum (ICD-10) Bilateral lower extremity edema (07/03/20) ?R60.0 - Localized edema (ICD-10) Benign positional vertigo (03/26/15) ?H81.10 - Benign paroxysmal vertigo, unspecified ear (ICD-10) Amaurosis fugax (12/31/20) ?G45.3 - Amaurosis fugax (ICD-10) Tricuspid regurgitation ?I07.1 - Rheumatic tricuspid insufficiency (ICD-10) Mitral regurgitation ?I34.0 - Nonrheumatic mitral (valve) insufficiency (ICD-10) Aortic regurgitation ?I35.1 - Nonrheumatic aortic (valve) insufficiency (ICD-10) Aortic stenosis ?I35.0 - Nonrheumatic aortic (valve) stenosis (ICD-10) Pulmonary hypertension ?I27.20 - Pulmonary hypertension, unspecified (ICD-10) Heart failure with reduced ejection fraction ?I50.20 - Unspecified systolic (congestive) heart failure (ICD-10) NSTEMI (non-ST elevated myocardial infarction) ?I21.4 - Non-ST elevation (NSTEMI) myocardial infarction (ICD-10) Weight loss, non-intentional ?R63.4 - Abnormal weight loss (ICD-10) Frailty syndrome in geriatric patient ?R54 - Age-related physical debility (ICD-10) GERD (gastroesophageal reflux disease) ?K21.9 - Gastro-esophageal reflux disease without esophagitis (ICD-10) Essential hypertension ?I10 - Essential (primary) hypertension (ICD-10) Dysphagia ?R13.10 - Dysphagia, unspecified (ICD-10) CAD (coronary artery disease) ?I25.10 - Atherosclerotic heart disease of [place] coronary artery without angina pectoris (ICD-10) Type 2 diabetes mellitus ?E11.9 - Type 2 diabetes mellitus without complications (ICD-10) Atrial fibrillation ?I48.91 - Unspecified atrial fibrillation (ICD-10) Pneumonia ?J18.9 - Pneumonia, unspecified organism (ICD-10) Elevated troponin ?R79.89 - Other specified abnormal findings of blood chemistry (ICD-10) COVID ?U07.1 - COVID-19 (ICD-10) Physical deconditioning ?R53.81 - Other malaise (ICD-10) Colitis ?K52.9 - Noninfective gastroenteritis and colitis, unspecified (ICD-10) CLL (chronic lymphocytic leukemia) ?C91.10 - Chronic lymphocytic leukemia of B-cell type not having achieved remission (ICD-10) Aortic stenosis, severe ?I35.0 - Nonrheumatic aortic (valve) stenosis (ICD-10) Diverticulosis ?K57.90 - Diverticulosis of intestine, part unspecified, without perforation or abscess without bleeding (ICD-10) Blood clot of artery under arm ?I74.2 - Embolism and thrombosis of arteries of the upper extremities (ICD-10) Diabetic retinopathy ?E11.319 - Type 2 diabetes mellitus with unspecified diabetic retinopathy without macular edema (ICD-10) Interstitial lung disease ?J84.9 - Interstitial pulmonary disease, unspecified (ICD-10) ROSA ISELA (obstructive sleep apnea) ?G47.33 - Obstructive sleep apnea (adult) (pediatric) (ICD-10) Hyperlipidemia ?E78.5 - Hyperlipidemia, unspecified (ICD-10) 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 - Dissection of other specified artery (ICD-10) Ileitis ?K52.9 - Noninfective gastroenteritis and colitis, unspecified (ICD-10) Surgical History History of open reduction and internal fixation (ORIF) procedure (07/19/24) ?Z98.890 - Other specified postprocedural states (ICD-10) Patella fracture ?S82.009A - Unspecified fracture of unspecified patella, initial encounter for closed fracture (ICD-10) History of atherectomy ?Z98.890 - Other specified postprocedural states (ICD-10) H/O colectomy ?Z90.49 - Acquired absence of other specified parts of digestive tract (ICD-10) History of laparoscopic cholecystectomy ?Z90.49 - Acquired absence of other specified parts of digestive tract (ICD-10) Family History Brother Coronary artery disease Heart disease Diabetes High blood pressure Mother Coronary artery disease Diabetes Social History Narrative: He lives at home with his daughter. Code status is full. He does not smoke. Former smoker. He does not drink alcohol. What is your current living situation?: I presently have a place to live Problems where you live: no known problems Problems where you live details: no known problems In the past 12 months, utilities in danger of being shut off: no In past 12 months, lack of transportation kept you from medical appts, meetings, work, or getting things needed for daily living: no In the past 12 mos, have been you worried that your food would run out before you had money to buy more?: never true In the past 12 mos, the food you bought just didn't last and you didn't have money to buy more?: never true Highest level of school completed/degree received: high school graduate Smoking Status: Former smoker What tobacco products do you use: cigarettes Smoking quit date/years: >15 years ago Do you use any of these nicotine containing products: None Second hand tobacco smoke exposure: Yes How often do you have a drink containing alcohol: never How often do you have six or more drinks on one occasion: Never AUDIT-C Alcohol total score: 0 Non-prescribed substance use: denies use Caffeine: Yes (Tea) How often does anyone, including family, friends and others, physically hurt you: never How often does anyone, including family, friends and others, insult or talk down to you: never How often does anyone, including family, friends and others, threaten you with harm: never How often does anyone, including family, friends and others, scream or curse at you: never service: Yes Exam Narrative: Exam Narrative: Thin, elderly patient in no acute distress. Alert and oriented. Answers questions appropriately. Mood and affect are appropriate. Thoughts are goal oriented and rational. No tangential or magical thinking noted. Patient speaks in full sentences without needing to catch his breath. HEENT: Normocephalic atraumatic. Pupils are equally round reactive to light. Extraocular muscles are intact. Conjunctivae are moist without any icterus noted. Moist mucous membranes. Cardiovascular: Heart is regular rate and rhythm S1 and S2 are present without any obvious murmurs. Lungs: Clear to auscultation bilaterally no wheezes rhonchi or rales are appreciated. Patient takes deep breaths without any discomfort. Abdomen: Soft and nontender nondistended with normal bowel sounds. Extremities: Bilateral lower extremities are without edema. Patient has no tenderness to palpation at the left hip. He can flex and extend at the left hip while lying down without any pain. No pain over the greater trochanter. No pain over the gluteal area. No skin changes, no swelling. Skin: Well perfused. Back: Normal appearance. No tenderness of the thoracic or lumbar spine. No CVA tenderness. Const: Vital Signs, click to edit/add: Vital Signs - 24 hr 04/10/25 08:22 04/10/25 08:46 04/10/25 08:48 Temperature 98.4 F Pulse Rate 71 68 Pulse Rate [Pulse Oximeter] 76 Respiratory Rate 20 16 Blood Pressure 176/61 H Blood Pressure [Ri ght Upper Arm] 175/65 H Pulse Oximetry 94 96 96 Oxygen Delivery Me thod Room Air 04/10/25 08:49 04/10/25 09:00 04/10/25 09:01 Temperature Pulse Rate 70 68 68 Pulse Rate [Pulse Oximeter] Respiratory Rate Blood Pressure 163/59 H Blood Pressure [Ri ght Upper Arm] Pulse Oximetry 97 97 95 Oxygen Delivery Me thod 04/10/25 09:15 04/10/25 09:30 04/10/25 09:31 Temperature Pulse Rate 67 72 70 Pulse Rate [Pulse Oximeter] Respiratory Rate 16 Blood Pressure 178/65 H Blood Pressure [Ri ght Upper Arm] Pulse Oximetry 96 97 97 Oxygen Delivery Me thod 04/10/25 09:32 04/10/25 09:45 04/10/25 10:09 Temperature Pulse Rate 71 74 65 Pulse Rate [Pulse Oximeter] Respiratory Rate Blood Pressure Blood Pressure [Ri ght Upper Arm] Pulse Oximetry 97 96 95 Oxygen Delivery Me thod 04/10/25 10:15 04/10/25 10:30 04/10/25 10:32 Temperature Pulse Rate 65 67 67 Pulse Rate [Pulse Oximeter] Respiratory Rate 16 Blood Pressure 154/59 H Blood Pressure [Ri ght Upper Arm] Pulse Oximetry 95 95 94 Oxygen Delivery Me thod 04/10/25 10:33 04/10/25 10:50 04/10/25 11:00 Temperature Pulse Rate 65 68 69 Pulse Rate [Pulse Oximeter] Respiratory Rate Blood Pressure Blood Pressure [Ri ght Upper Arm] Pulse Oximetry 96 96 94 Oxygen Delivery Me thod 04/10/25 11:01 04/10/25 11:15 04/10/25 11:30 Temperature Pulse Rate 66 65 60 Pulse Rate [Pulse Oximeter] Respiratory Rate Blood Pressure 163/57 H Blood Pressure [Ri ght Upper Arm] Pulse Oximetry 97 96 95 Oxygen Delivery Me thod 04/10/25 11:32 Temperature Pulse Rate 76 Pulse Rate [Pulse Oximeter] Respiratory Rate 16 Blood Pressure 146/59 H Blood Pressure [Ri ght Upper Arm] Pulse Oximetry 95 Oxygen Delivery Me thod Course Course ED Course: X-rays of the hip and pelvis were unremarkable. Proceeded with CTs of the thoracic and lumbar spine which also did not show any acute processes. CT of the pelvis however showed nondisplaced fracture of the left L5 transverse process, nondisplaced subacute fractures of the bilateral upper sacral ala with extension to the neural foramen and horizontal fracture at the S2-[address] Hernandez who recommends conservative treatment, weight-bearing as tolerated. Discussed findings with family. Patient's daughter states that he can come home at this time, they have things set up for him at home so he can get around, they have a commode. We discussed pain management-patient has had tramadol before with good outcome. Requested tramadol at this time. Will follow-up with primary care as needed. Vital Signs Vital signs: Initial Vital Signs Temperature 98.4 F 04/10/25 08:22 Temperature Source Temporal Artery Scan 04/10/25 08:22 Pulse Rate 76 04/10/25 08:22 Respiratory Rate 20 04/10/25 08:22 Blood Pressure 175/65 H 04/10/25 08:22 Blood Pressure Mean 101 04/10/25 08:22 Blood Pressure Position Supine 04/10/25 08:22 Pulse Oximetry 94 04/10/25 08:22 Oxygen Delivery Method Room Air 04/10/25 08:22 Vital Signs Temperature 98.4 F 04/10/25 08:22 Pulse Rate 76 04/10/25 08:22 Respiratory Rate 20 04/10/25 08:22 Blood Pressure 175/65 H 04/10/25 08:22 Pulse Oximetry 94 04/10/25 08:22 Oxygen Delivery Method Room Air 04/10/25 08:22 Temperature 98.4 F 04/10/25 08:22 Pulse Rate 76 04/10/25 11:32 Respiratory Rate 16 04/10/25 11:32 Blood Pressure 146/59 H 04/10/25 11:32 Pulse Oximetry 95 04/10/25 11:32 Oxygen Delivery Method Room Air 04/10/25 08:22 Medical Decision Making MDM Narrative Medical decision making narrative: 89-year-old male with a sacral ala fracture and L5 transverse process fracture. Treatment per above. Imaging Data X-ray hip: Attestation: I have reviewed the pertinent imaging results. Radiologist's impression: TECHNIQUE: AP pelvis, AP left hip, frog-leg lateral left hip. FINDINGS: No acute fracture. Prior right fracture fixation with a hip screw and short intramedullary deidre. These are in good position as included within the field of view. Normal hip joint alignment. Moderate hip osteoarthritis. Bilateral SI osteoarthritis. Disc and facet degeneration in the lower lumbar spine. No destructive focal bone lesions. Heavy atherosclerosis. IMPRESSION: No acute findings in the pelvis or left hip. CT lumbar spine: Attestation: I have reviewed the pertinent imaging results. Radiologist's impression: Technique: Noncontrast axial CT of the lumbar spine with coronal and sagittal reformats. Comparison: CT lumbar spine report 03/24/2025. CT abdomen pelvis 03/31/2025 and 08/27/2022. Findings: Preserved lumbar lordosis. Chronic bilateral L5 spondylolysis with grade 1 anterolisthesis at L5-S1. Chronic-appearing S3 superior endplate collapse, stable relative to 03/31/2025, new relative to 08/27/2022. Normal lumbar vertebral body heights. No acute fracture identified. Incidental bone island within the left posterior L5 body. No aggressive osseous lesion. Degenerative disc changes and facet arthropathy contributing to scattered mild neural foraminal narrowing. No high-grade neural foraminal or spinal canal stenosis. Aortoiliac atherosclerotic plaquing. Cholecystectomy changes. Degenerative change at the SI joints. Impression: 1. Chronic-appearing S3 superior endplate collapse, stable relative to 03/31/2025, new relative to 08/27/2022. 2. Lumbar spondylosis, chronic bilateral L5 spondylolysis, and grade 1 anterolisthesis at L5-S1. 3. No high-grade neural foraminal or spinal canal stenosis. CT thoracic spine: Attestation: I have reviewed the pertinent imaging results. Radiologist's impression: Technique: Noncontrast axial CT of the thoracic spine with coronal and sagittal reformats. Comparison: CT chest 12/10/2024, 08/19/2024. Chest x-ray 05/05/2024. Findings: Accentuated thoracic kyphosis. No significant spondylolisthesis. Chronic T6 anterior wedge compression deformity, stable relative to 12/10/2024, with slight interval height loss relative to 08/19/2024, and new relative to 05/05/2024. No other vertebral compression deformities. No evidence for acute fracture. Facet arthropathy contributes to low-grade right neural foraminal narrowing at T8-9. No high-grade neural foraminal or spinal canal stenosis. Post TAVR changes, scattered atherosclerosis. Subpleural reticulation and suspected paraseptal emphysematous changes. Trace pericardial effusion. Cholecystectomy changes. Indistinct calcified mesenteric lesions redemonstrated. Impression: 1. Chronic T6 anterior wedge compression deformity, stable from 12/10/2024, progressed from 08/19/2024, new from 05/05/2024. 2. No acute osseous abnormality. No high-grade neural foraminal or spinal canal stenosis. CT pelvis: Attestation: I have reviewed the pertinent imaging results. Radiologist's impression: TECHNICAL: Non-contrast CT of the left hip with axial images. Sagittal oblique and coronal oblique reformatted images of the left hip created. FINDINGS: LEFT HIP: No fracture. Mild joint space narrowing and hypertrophic change. No hip joint effusion. OSSEOUS STRUCTURES: Nondisplaced acute to subacute fracture in the left L5 transverse process. Nondisplaced subacute fractures of the upper bilateral sacral ala with extension to the neural foramen. No narrowing of the neural foramen. Subacute slightly impacted horizontal fracture at the S2-3 junction. Bilateral pars interarticularis defects at L5. No evidence for chronic avascular necrosis. OTHER JOINT SPACES: Degenerative changes in the left SI joint and pubic symphysis. MUSCLES AND TENDONS: No intramuscular mass or hematoma. No muscle atrophy. No retracted tendon tear. SOFT TISSUES: No subcutaneous edema, fluid collection or hematoma. INTRAPELVIC CONTENTS: No free fluid or hematoma. No inguinal hernia. IMPRESSION: 1. Nondisplaced subacute fractures of the bilateral upper sacral ala with extension to the neural foramen and subacute horizontal fracture at the S2-3 junction. 2. Acute to subacute nondisplaced fracture of the left L5 transverse process. 3. Bilateral pars interarticularis defects at L5. 4. Degenerative changes in the left SI joint, pubic symphysis and left hip. Discharge Plan Discharge Clinical Impression: Closed sacral fracture, Fracture of lumbar spine Patient Disposition: Home w/ Parent or Adult Condition: Stable Additional Instructions: Use pain medications as needed/as prescribed. Recommend anti constipation regimen whether that is MiraLax, laxative or prunes as you have been doing to prevent constipation. Follow-up with your primary care provider as needed. Activity as tolerated. Recommend you continue doing your exercises as tolerated. Fifteen tablets of tramadol 50 mg sent to [facility]. Prescriptions: No Action cetirizine 10 mg tablet 10 mg PO DAILY sennosides [Senna Lax] 8.6 mg Tablet 17.2 mg PO BID PRN (Reason: constipation) Qty: 100 0RF acetaminophen 500 mg capsule 500 mg PO Q6H MDD 4000mg per day PRN (Reason: pain) Qty: 100 0RF spironolactone 25 mg tablet 12.5 mg PO DAILY Qty: 30 0RF valsartan 80 mg Tablet 160 mg PO HS Qty: 60 0RF esomeprazole magnesium [Nexium] 40 mg capsule,delayed release(DR/EC) 40 mg PO DAILY omeprazole 20 mg capsule,delayed release(DR/EC) 20 mg PO BID prednisone 20 mg tablet 20 mg PO DAILY famotidine 20 mg tablet 20 mg PO DAILY carvedilol 25 mg tablet 25 mg PO BID atorvastatin 20 mg tablet 20 mg PO HS aspirin 81 mg tablet,chewable 1 tab PO DAILY Eliquis 2.5 mg tablet 2.5 mg PO BID Jardiance 25 mg tablet 25 mg PO DAILY ascorbic acid (vitamin C) 500 mg tablet 500 mg PO DAILY vitamin E mixed 400 unit capsule 400 unit PO DAILY Follow Up/Referrals: Luiz Bullock MD [Primary Care Provider, Family Practice] Stand Alone Forms: [facility] Info Instructions
--- NOTE | 2025-04-10 10:22 | CRLHL7_ITS ---
For Patients: As a result of the Century Cures Act, medical imaging exams and procedure reports are released immediately into your electronic medical record. You may view this report before your referring provider. If you have questions, please contact your health care provider. EXAM: CT OF THE LEFT HIP, WITHOUT CONTRAST CLINICAL INDICATION: Pain. History of fall 1 month prior. COMPARISON STUDIES: 03/31/2025 CT abdomen and pelvis. CT lumbar spine from same date. TECHNICAL: Non-contrast CT of the left hip with axial images. Sagittal oblique and coronal oblique reformatted images of the left hip created. FINDINGS: LEFT HIP: No fracture. Mild joint space narrowing and hypertrophic change. No hip joint effusion. OSSEOUS STRUCTURES: Nondisplaced acute to subacute fracture in the left L5 transverse process. Nondisplaced subacute fractures of the upper bilateral sacral ala with extension to the neural foramen. No narrowing of the neural foramen. Subacute slightly impacted horizontal fracture at the S2-3 junction. Bilateral pars interarticularis defects at L5. No evidence for chronic avascular necrosis. OTHER JOINT SPACES: Degenerative changes in the left SI joint and pubic symphysis. MUSCLES AND TENDONS: No intramuscular mass or hematoma. No muscle atrophy. No retracted tendon tear. SOFT TISSUES: No subcutaneous edema, fluid collection or hematoma. INTRAPELVIC CONTENTS: No free fluid or hematoma. No inguinal hernia. IMPRESSION: 1. Nondisplaced subacute fractures of the bilateral upper sacral ala with extension to the neural foramen and subacute horizontal fracture at the S2-3 junction. 2. Acute to subacute nondisplaced fracture of the left L5 transverse process. 3. Bilateral pars interarticularis defects at L5. 4. Degenerative changes in the left SI joint, pubic symphysis and left hip. Please note that all CT scans at this facility use dose modulation, iterative reconstruction, and/or weight-based dosing when appropriate to reduce radiation dose to as low as reasonably achievable. Dictated by Virgil Cross MD @ 04/10/2025 11:29:01 AM (Electronically Signed)
--- NOTE | 2025-04-10 10:22 | CRLHL7_ITS ---
For Patients: As a result of the Century Cures Act, medical imaging exams and procedure reports are released immediately into your electronic medical record. You may view this report before your referring provider. If you have questions, please contact your health care provider. Indication: Back pain Technique: Noncontrast axial CT of the lumbar spine with coronal and sagittal reformats. Comparison: CT lumbar spine report 03/24/2025. CT abdomen pelvis 03/31/2025 and 08/27/2022. Findings: Preserved lumbar lordosis. Chronic bilateral L5 spondylolysis with grade 1 anterolisthesis at L5-S1. Chronic-appearing S3 superior endplate collapse, stable relative to 03/31/2025, new relative to 08/27/2022. Normal lumbar vertebral body heights. No acute fracture identified. Incidental bone island within the left posterior L5 body. No aggressive osseous lesion. Degenerative disc changes and facet arthropathy contributing to scattered mild neural foraminal narrowing. No high-grade neural foraminal or spinal canal stenosis. Aortoiliac atherosclerotic plaquing. Cholecystectomy changes. Degenerative change at the SI joints. Impression: 1. Chronic-appearing S3 superior endplate collapse, stable relative to 03/31/2025, new relative to 08/27/2022. 2. Lumbar spondylosis, chronic bilateral L5 spondylolysis, and grade 1 anterolisthesis at L5-S1. 3. No high-grade neural foraminal or spinal canal stenosis. Please note that all CT scans at this facility use dose modulation, iterative reconstruction, and/or weight-based dosing when appropriate to reduce radiation dose to as low as reasonably achievable. Dictated by Abby Malone MD @ 04/10/2025 11:18:15 AM (Electronically Signed)
--- NOTE | 2025-04-10 10:22 | CRLHL7_ITS ---
For Patients: As a result of the Century Cures Act, medical imaging exams and procedure reports are released immediately into your electronic medical record. You may view this report before your referring provider. If you have questions, please contact your health care provider. Indication: Back pain Technique: Noncontrast axial CT of the thoracic spine with coronal and sagittal reformats. Comparison: CT chest 12/10/2024, 08/19/2024. Chest x-ray 05/05/2024. Findings: Accentuated thoracic kyphosis. No significant spondylolisthesis. Chronic T6 anterior wedge compression deformity, stable relative to 12/10/2024, with slight interval height loss relative to 08/19/2024, and new relative to 05/05/2024. No other vertebral compression deformities. No evidence for acute fracture. Facet arthropathy contributes to low-grade right neural foraminal narrowing at T8-9. No high-grade neural foraminal or spinal canal stenosis. Post TAVR changes, scattered atherosclerosis. Subpleural reticulation and suspected paraseptal emphysematous changes. Trace pericardial effusion. Cholecystectomy changes. Indistinct calcified mesenteric lesions redemonstrated. Impression: 1. Chronic T6 anterior wedge compression deformity, stable from 12/10/2024, progressed from 08/19/2024, new from 05/05/2024. 2. No acute osseous abnormality. No high-grade neural foraminal or spinal canal stenosis. Please note that all CT scans at this facility use dose modulation, iterative reconstruction, and/or weight-based dosing when appropriate to reduce radiation dose to as low as reasonably achievable. Dictated by Abby Malone MD @ 04/10/2025 11:27:22 AM (Electronically Signed)
== END 2025-04-10 12:30 | disposition home or self-care (01) ==
PROVIDERS: Emergency Provider Family Medicine; PCP Family Medicine
DX: S32.10XA Unspecified fracture of sacrum, initial encounter for closed fracture (principal); W18.30XA Fall on same level, unspecified, initial encounter; S32.059A Unspecified fracture of fifth lumbar vertebra, initial encounter for closed fracture
CPT/HCPCS: 72128; 72131; 73502; 73700; 99285